=== PATIENT | male | born 1945 | race Asian ===

== ENCOUNTER 2019-06-18 08:30 | Inpatient (IN) | payer MEDICAID ==
[~2019-06-18] VITALS: Ht 172.7 cm; Wt 75.9 kg
--- NOTE | 2019-06-18 08:40 | NUR ---
ED Nurse Note: Pt brought in by ambulance d/t call from pt's neighbor that he was found on the shower floor. Pt was altered, different from his baseline per neighbor's report. Pt is usually A+Ox4 and ambulatory. Pt is now nonverbal, does not open his eyes spontaneously. Pupils are sluggish with involuntary eye movements. Laceration to his left hand between his index and middle fingers. Right hand and left hand contusions. Pt is put on the monitor and in gown. Blood pressure is elevated 230/120. EDMD aware. BS 154. Stat Head Ct ordered and CT called. Addendum: 06/18/19 at 0931 by JESSICA RIGHT HAND and LEFT KNEE contusions* Pt is from home
[2019-06-18] MEDS ORDERED: Calcium Gluconate 1gm/10ml vial IVP ONE (08:45)
[2019-06-18 09:00] LABS: BASOPHILS % (AUTO) 0.6 % (0.0-2.0); EOSINOPHILS % (AUTO) 0.1 % (0.0-3.0); HEMATOCRIT 49.9 % (42.0-52.0); HEMOGLOBIN 17.7 G/DL (14.2-18.0); LYMPHOCYTES % (AUTO) 14.1 % (20.0-45.0); MEAN CORPUSCULAR VOLUME 90 FL (80-99); MONOCYTES % (AUTO) 6.1 % (1.0-10.0); NEUTROPHILS % (AUTO) 79.2 % (45.0-75.0); PLATELET COUNT 221 K/UL (150-450); RED BLOOD COUNT 5.56 M/UL (4.70-6.10); WHITE BLOOD COUNT 15.9 K/UL (4.8-10.8)
[2019-06-18] MEDS ORDERED: Insulin Human Regular 100units/ml 3ml IV ONE (09:00)
[2019-06-18 09:14] LABS: APPEARANCE,URINE CLEAR; BILIRUBIN, URINE NEGATIVE (NEGATIVE); COLOR,URINE PALE YELLOW; GLUCOSE, URINE (UA) NEGATIVE (NEGATIVE); KETONES,URINE NEGATIVE (NEGATIVE); LEUKOCYTE ESTERASE ,URINE NEGATIVE (NEGATIVE); NITRITE,URINE NEGATIVE (NEGATIVE); PH,URINE 7 (4.5-8.0); PROTEIN,URINE 4+ (NEGATIVE); UROBILINOGEN,URINE NORMAL MG/DL (0.0-1.0)
[2019-06-18] MEDS ORDERED: Sodium Bicarbonate 50ml Carp IV ONE (09:15)
--- NOTE | 2019-06-18 09:20 | Diagnostic Imaging Report ---
EXAM: CT Head Without Intravenous Contrast CLINICAL HISTORY: AMS TECHNIQUE: Axial computed tomography images of the head/brain without intravenous contrast. CTDI is 62.70 mGy and DLP is 1614.50 mGy-cm. One or more of the following dose reduction techniques were used: automated exposure control, adjustment of the mA and/or kV according to patient size, use of iterative reconstruction technique. Coronal reformatted images were created and reviewed. COMPARISON: No relevant prior studies available. FINDINGS: Brain: No acute intracranial hemorrhage. No mass effect or midline shift. 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 Periventricular and subcortical white matter hypodensities, likely related to chronic small vessel disease changes. Mild generalized cerebral parenchymal volume loss, likely age-related. Ventricles: Unremarkable. No ventriculomegaly. Bones/joints: Dehiscence of the left lamina papyracea. Chronic- appearing nasal bone fractures. Soft tissues: Unremarkable. Sinuses: Mucosal thickening throughout the left maxillary sinus. Remaining visualized paranasal sinuses appear clear. No sinus air-fluid levels. Mastoid air cells: Unremarkable as visualized. No mastoid effusion. IMPRESSION: 1. No acute intracranial hemorrhage. No mass effect or midline shift. 2. 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 3. Periventricular and subcortical white matter hypodensities, likely related to chronic small vessel disease changes. 4. Mild generalized cerebral parenchymal volume loss, likely age-related.
[2019-06-18 09:26] VITALS: BP 206/67
--- NOTE | 2019-06-18 09:36 | NUR ---
ED Nurse Note: Right knee contusion noted. Pt opening eyes now intermittently, but still not verbal.
--- NOTE | 2019-06-18 09:45 | Diagnostic Imaging Report ---
EXAM: XR Chest, 1 View CLINICAL HISTORY: AMS TECHNIQUE: Frontal view of the chest. COMPARISON: No relevant prior studies available. FINDINGS: Lungs: Mildly increased interstitial markings, most prominent in the right infrahilar region. The lungs are otherwise clear without focal consolidation. Pleural space: Unremarkable. The costophrenic angles are sharp. No visible pneumothorax. Heart: Unremarkable. No cardiomegaly. Mediastinum: Unremarkable. Bones/joints: Mild degenerative changes throughout the visualized spine. Vasculature: Atherosclerotic calcifications are noted within the aortic arch. Tubes, lines and devices: Telemetry leads overlie the thorax. IMPRESSION: Mildly increased interstitial markings, most prominent in the right infrahilar region. This is nonspecific and may represent pulmonary vascular congestion or interstitial pneumonitis. No focal consolidation.
[2019-06-18 09:46] LABS: ANION GAP 15 mmol/L (5-15); BLOOD UREA NITROGEN 16 mg/dL (7-18); CALCIUM 8.3 MG/DL (8.5-10.1); CARBON DIOXIDE 24 MMOL/L (21-32); CHLORIDE 108 MMOL/L (98-107); CREATININE 1.2 MG/DL (0.55-1.30); POTASSIUM 3.3 MMOL/L (3.5-5.1); SODIUM 147 MMOL/L (136-145)
--- NOTE | 2019-06-18 09:47 | NUR ---
ED Nurse Note: BP taken in both arms. BP is in the 250s systolic and 80s diastolic in both arms. EDMD aware.
[2019-06-18 09:50] LABS: ALANINE AMINOTRANSFERASE 29 U/L (12-78); ALBUMIN 3.5 G/DL (3.4-5.0); ALBUMIN/GLOBULIN RATIO 0.8 (1.0-2.7); ALKALINE PHOSPHATASE 103 U/L (46-116); ASPARTATE AMINO TRANSFERASE 31 U/L (15-37); BILIRUBIN,TOTAL 0.5 MG/DL (0.2-1.0)
[2019-06-18] MEDS ORDERED: Azithromycin 500 MG in NS 275 ML IV ONE (10:45)
[2019-06-18] MEDS ORDERED: cefTRIAXone 1 GM in NS 55 ML IVPB ONE (10:45)
[2019-06-18] MEDS ORDERED: Haloperidol 5mg/ml Inj IM ONE (11:00)
[2019-06-18] MEDS ORDERED: Tetanus/Diptheria/Pertussis IM ONE (11:00)
--- NOTE | 2019-06-18 11:23 | Diagnostic Imaging Report ---
EXAM: XR Right Hand Complete, 3 or More Views CLINICAL HISTORY: SWELL TECHNIQUE: Frontal, lateral and oblique views of the right hand. COMPARISON: No relevant prior studies available. FINDINGS: Bones/joints: Osseous remodeling along the distal ulna and distal radial-ulnar joint, which may be related to degenerative changes or to chronic/remote trauma. Moderate degenerative narrowing throughout the interphalangeal and radiocarpal joints. No acute fracture or dislocation seen. Soft tissues: Unremarkable. No radiopaque foreign body. IMPRESSION: 1. Osseous remodeling along the distal ulna and distal radial-ulnar joint, which may be related to degenerative changes or to chronic/remote trauma. 2. Moderate degenerative narrowing throughout the interphalangeal and radiocarpal joints.
[2019-06-18] MEDS ORDERED: LORazepam Inj 2mg/ml 1ml IV ONE (11:45)
--- NOTE | 2019-06-18 11:53 | NUR ---
ED Nurse Note: Pt is restless and pulling out devices. He is tachypnic and tachycardic at 118. EDMD ordered haldol IM and it was given, but patient continues to be restless and agitated. Pt thrashing in bed and cannot be calmed down. Made the EDMD aware and 1 mg ativan IV was ordered and administered. Addendum: 06/18/19 at 1201 by BDUTTON Pt also having bigeminal PVCs and EDMD aware.
[2019-06-18] MEDS ORDERED: Enalaprilat 2.5mg/2ml Inj IV ONE (12:15)
[2019-06-18] MEDS ORDERED: Milk of Magnesia 30ml Ud ORAL PRN (12:30)
--- NOTE | 2019-06-18 12:52 | NUR ---
ED Nurse Note: report given to Beatrice BADILLO, endorsed all plan of care to Beatrice BADILLO.
[2019-06-18 13:00] VITALS: BP 219/100
--- NOTE | 2019-06-18 13:13 | Emergency Room Report ---
History of Present Illness General Chief Complaint: Altered Level of Consciousness Source: EMS Present Illness HPI 73-year-old male presents ED for evaluation. Brought in by EMS for altered level of consciousness. Found by his neighbors this morning. Patient lives alone. Patient hypertensive in triage. Patient unable to provide any history at this time. No known history of hypertension. Unclear whether patient ingested alcohol or drugs. No other aggravating relieving factors. No other associated symptoms Allergies: Coded Allergies: UNABLE TO ASSESS (Unverified , 06/18/19) Patient History Past Medical History: none Past Surgical History: none Pertinent Family History: none Social History: Denies: smoking, alcohol use, drug use Immunizations: UTD Reviewed Nursing Documentation: PMH: Agreed; PSxH: Agreed Nursing Documentation-PMH Past Medical History: Deferred Review of Systems All Other Systems: limited Physical Exam Vital Signs Date Time Temp Pulse Resp B/P (MAP) Pulse Ox O2 Delivery O2 Flow Rate FiO2 06/18/19 08:32 98.8 110 18 220/97 (138) 100 Room Air Sp02 EP Interpretation: reviewed, normal General Appearance: lethargic Head: normocephalic Eyes: bilateral eye normal inspection, bilateral eye PERRL ENT: normal ENT inspection Neck: normal inspection Respiratory: chest non-tender, lungs clear, normal breath sounds, speaking full sentences Cardiovascular #1: regular rate, rhythm, no edema Gastrointestinal: normal bowel sounds, non tender, soft, non-distended, no guarding, no rebound Rectal: deferred Genitourinary: no CVA tenderness Musculoskeletal: normal inspection Neurologic: other - ALOC Psychiatric: other - ALOC Skin: laceration - 2cm laceration between 2nd and 3rd finger L hand, other - see nursing skin notes Lymphatic: normal inspection Procedures Critical Care Time Critical Care Time i. I feel this is a highly complex case requiring extensive working including EKG/Rhythm strip, Xray/CT/US, Blood/urine lab work, repeat exams while in ED, and administration of strong opiates/narcotics for pain control, admission to hospital or close patient follow up. Total time: 60 min bedside evaluation and treatment excludes procedures (EKG). Reason for critical care: AMS, severe sepsis, hypertensive Possible complications: hypotension, hypertension, AR, shock, arrhythmias, metabolic acidosis, end organ damage, respiratory failure. Interventions: labs, EKG, CXR, IVFs, CT head, laceration repair, hydralazine x 2 , enapapril, haldol/ativan. Course: Patient presenting with altered mental status. Found down. Hypertensive in triage. CT head negative. Elevated WBC. Lactic elevated. Swelling to right hand. X-rays negative. Concern for cellulitis. Concern for pneumonitis on chest x-ray. Laceration between second and third finger on left hand repaired with suture. Given 30 cc/kg fluid bolus. Given broad-spectrum antibiotics. Given hydralazine x2, enalapril with BP improved. Consultations: nursing staff, EMS, family Performed by: Dr Mackey Tolerated well condition = critical j. because of unstable vital signs this patient had a condition that could potentially threaten life or limb. I feel this is a critical patient who required my full attention while patient was considered critical. Total Critical Care Time excluding procedures was greater than 60 minutes Laceration/Wound Repair Laceration/Wound Repair : Consent: Verbal Wound Location: upper extremity - L hand Wound's Depth, Shape: other - 2cm Wound Explored: no foreign body removed Betadine Prep?: Yes Anesthesia: Lidocaine w/ Epi Wound Debrided: minimal Wound Repaired With: sutures Suture Size/Type: 5:0, proline Layer Closure?: No Sterile Dressing Applied?: Yes Splint Applied?: No Sling Applied?: No Patient Tolerated: Well Complications: None Medical Decision Making Diagnostic Impression: Primary Impression: Altered level of consciousness Additional Impressions: Sepsis Qualified Codes: A41.9 - Sepsis, unspecified organism Cellulitis of right hand Laceration Hypertensive urgency ER Course Hospital Course 73-year-old male presents with altered level of consciousness. Found down. Hypertensive Differential diagnoses include: AR/unstable angina, CVA/TIA, hypertensive urgency Clinical course Patient placed on stretcher. on rn cardiac rehab. After initial history and physical I ordered labs, EKG, chest x-ray, CT Head labs reviewed- noted leukocytosis, hemoglobin/hematocrit stable, electrolytes okay, troponins negative. Utox negative. EKG - sinus rhythm with bigeminy no acute ischemic changes interpreted by me CXR - interstitial congestion consider pneumonitis Right hand swelling and induration. X-ray negative. Concern for cellulitis There is a laceration between the second and third fingers on the left hand. Tetanus updated. Wound irrigated. Laceration repaired. Becoming more awake but still nonverbal and not following commands. Given Haldol and Ativan for agitation. 30 cc/kg fluid bolus. Given broad-spectrum antibiotics Given hydralazine x2, enalapril with BP slowly improving CT head negative Case discussed with Dr. Gilmore and he agreed to accept the patient to his service for further care and support I. I feel this is a highly complex case requiring extensive working including EKG/Rhythm strip, Xray/CT/US, Blood/urine lab work, repeat exams while in ED, and administration of strong opiates/narcotics for pain control, admission to hospital or close patient follow up. Diagnosis - hypertensive urgency, ALOC, sepsis, celluitis of R hand, laceration admitted to SDU in critical condition Labs Test 06/18/19 08:40 06/18/19 09:05 06/18/19 09:47 06/18/19 10:00 White Blood Count 15.9 K/UL (4.8-10.8) Red Blood Count 5.56 M/UL (4.70-6.10) Hemoglobin 17.7 G/DL (14.2-18.0) Hematocrit 49.9 % (42.0-52.0) Mean Corpuscular Volume 90 FL (80-99) Mean Corpuscular Hemoglobin 31.9 PG (27.0-31.0) Mean Corpuscular Hemoglobin Concent 35.5 G/DL (32.0-36.0) Red Cell Distribution Width 11.0 % (11.6-14.8) Platelet Count 221 K/UL (150-450) Mean Platelet Volume 7.1 FL (6.5-10.1) Neutrophils (%) (Auto) 79.2 % (45.0-75.0) Lymphocytes (%) (Auto) 14.1 % (20.0-45.0) Monocytes (%) (Auto) 6.1 % (1.0-10.0) Eosinophils (%) (Auto) 0.1 % (0.0-3.0) Basophils (%) (Auto) 0.6 % (0.0-2.0) Prothrombin Time 10.2 SEC (9.30-11.50) Prothromb Time International Ratio 1.0 (0.9-1.1) Activated Partial Thromboplast Time 25 SEC (23-33) Sodium Level 147 MMOL/L (136-145) Potassium Level 3.3 MMOL/L (3.5-5.1) Chloride Level 108 MMOL/L (98-107) Carbon Dioxide Level 24 MMOL/L (21-32) Anion Gap 15 mmol/L (5-15) Blood Urea Nitrogen 16 mg/dL (7-18) Creatinine 1.2 MG/DL (0.55-1.30) Estimat Glomerular Filtration Rate mL/min (>60) Glucose Level 165 MG/DL (74-106) Calcium Level 8.3 MG/DL (8.5-10.1) Total Bilirubin 0.5 MG/DL (0.2-1.0) Aspartate Amino Transf (AST/SGOT) 31 U/L (15-37) Alanine Aminotransferase (ALT/SGPT) 29 U/L (12-78) Alkaline Phosphatase 103 U/L (46-116) Troponin I 0.053 ng/mL (0.000-0.056) Total Protein 7.7 G/DL (6.4-8.2) Albumin 3.5 G/DL (3.4-5.0) Globulin 4.2 g/dL Albumin/Globulin Ratio 0.8 (1.0-2.7) Salicylates Level 2.0 ug/mL (2.8-20) Acetaminophen Level < 2 MCG/ML (10-30) Serum Alcohol < 3 mg/dL Urine Color Pale yellow Urine Appearance Clear Urine pH 7 (4.5-8.0) Urine Specific [place] 1.010 (1.005-1.035) Urine Protein 4+ (NEGATIVE) Urine Glucose (UA) Negative (NEGATIVE) Urine Ketones Negative (NEGATIVE) Urine Blood 5+ (NEGATIVE) Urine Nitrite Negative (NEGATIVE) Urine Bilirubin Negative (NEGATIVE) Urine Urobilinogen Normal MG/DL (0.0-1.0) Urine Leukocyte Esterase Negative (NEGATIVE) Urine RBC 30-40 /HPF (0 - 0) Urine WBC 0-2 /HPF (0 - 0) Urine Squamous Epithelial Cells Occasional /LPF Urine Bacteria Occasional /HPF (NONE) Urine Opiates Screen Negative (NEGATIVE) Urine Barbiturates Screen Negative (NEGATIVE) Phencyclidine (PCP) Screen Negative (NEGATIVE) Urine Amphetamines Screen Negative (NEGATIVE) Urine Benzodiazepines Screen Negative (NEGATIVE) Urine Cocaine Screen Negative (NEGATIVE) Urine Marijuana (THC) Screen Negative (NEGATIVE) Magnesium Level 1.9 MG/DL (1.8-2.4) Lactic Acid Level 4.80 mmol/L (0.4-2.0) Test 06/18/19 12:12 EKG Diagnostic Results Rate: normal Rhythm: NSR ST Segments: other - bigeminy ASA given to the pt in ED: No Rhythm Strip Diag. Results EP Interpretation: yes Rhythm: NSR, no ectopy Chest X-Ray Diagnostic Results Chest X-Ray Diagnostic Results : Chest X-Ray Ordered: Yes # of Views/Limited/Complete: 1 View Indication: Other EP Interpretation: Yes Interpretation: no pneumothorax, other - interstitial markings c/o pneumonitis Impression: Other - pneumonitis Electronically Signed by: Electronically signed by Farzad Mackey MD Other X-Ray Diagnostic Results Other X-Ray Diagnostic Results : X-Ray ordered: R hand # of Views/Limited Vs Complete: 3 View Indication: Pain EP Interpretation: Yes Interpretation: no dislocation, no soft tissue swelling, no fractures Impression: No acute disease Electronically Signed by: Electronically signed by Farzad Mackey MD CT/MRI/US Diagnostic Results CT/MRI/US Diagnostic Results : Imaging Test Ordered: CT Head Impression no acute process Last Vital Signs Date Time Temp Pulse Resp B/P (MAP) Pulse Ox O2 Delivery O2 Flow Rate FiO2 06/18/19 12:15 219/100 06/18/19 09:27 98 18 Room Air 06/18/19 09:26 98.8 96 Status: improved Disposition: ADMITTED INPATIENT Condition: Critical Scripts Unable to Obtain Active Prescriptions or Reported Meds Referrals: NOT CHOSEN IPA/,REFERRING (PCP) Farzad Mackey MD Jun 18, 2019 13:13
[2019-06-18 13:15] VITALS: BP 138/74
--- NOTE | 2019-06-18 13:15 | NUR ---
ED Nurse Note: patient transferred to 2W with all of his belongings, endorsed to Beatrice BADILLO.
--- NOTE | 2019-06-18 13:20 | NUR ---
NURSE NOTES: Received patient from ED via gurney. Patient lethargic, nonverbal at this time. On room air, no respiratory distress noted. Placed on tax consultant, HR 72 sinus rhythm, BP 138/74, Temp. 97.7 axillary, RR 18 even and unlabored. O2 saturation 98%. Right hand noted with swelling and redness, repaired laceration on left hand between 2nd and 3rd digit noted. Abrasion on the chest noted, redness on right knee, otherwise skin intact. Right forearm 20g intact and patent. Admission orders noted from Dr Maame Gilmore. Safety precautions in place, bed locked, alarmed, and in lowest position, side rails up x3, and call light left within reach. Patient was placed in room close to nurse's station. Will continue plan of care and will continue to monitor patient.
--- NOTE | 2019-06-18 13:54 | NUR ---
RADIOLOGY DEPT., CHEST AND RIGHT HAND X-RAYS COMPLETED.-P.DYE
[2019-06-18] MEDS ORDERED: Vancomycin 1.5gm/NS Premix IVPB ONE (14:00)
[2019-06-18] MEDS ORDERED: Piperacillin/Tazobactam 2.25 GM in D5W 55 ML IVPB SCH (14:00)
[2019-06-18] MEDS: Zoysn 3.37gm in NS 100ML IVPB SCH ×2 (15:11→21:04)
[2019-06-18] MEDS: D5 1/2NS w/KCl 20mEq 1,000 ML IV SCH (15:11)
[2019-06-18] MEDS: Vancomycin 750mg/NS 275ml IVPB SCH ×2 (15:37)
[2019-06-18 16:00] VITALS: BP 130/65
--- NOTE | 2019-06-18 17:00 | NUR ---
NURSE NOTES: Linen and gown changed, repositioned, perineum care provided. Applied condom catheter. Safety precautions in place, bed locked, alarmed, and in lowest position, side rails up x3, and call light left within reach. Will continue to monitor.
--- NOTE | 2019-06-18 19:06 | NUR ---
HAND-OFF: Report given to JUSTINO Quintero. Patient in stable condition.
--- NOTE | 2019-06-18 19:29 | NUR ---
NURSE NOTES: Received report from Beatrice RN, pt. in bed asleep- no cardiac or respiratory distress noted, pt. is on cardiac monitor technician, chest noted rising up and down, respirations even and unlabored, condom cath intact and draining to gravity, call light within easy reach, side rails up x's3 and safety brakes engaged, bed alarm on, pt. appears to be resting comfortably- and appears clean and dry, repositioned and turned pt., Lt. AC running D5 1/2 NS w/ 20meq KCL at 75cc/hr- IV intact and patent, safety measures continued, will continue with plan of care.
[2019-06-18 20:00] VITALS: BP 144/64
[2019-06-19] VITALS: BP 139/71
[2019-06-19] MEDS: D5 1/2NS w/KCl 20mEq 1,000 ML IV SCH ×2 (02:20→15:29)
[2019-06-19 03:35] VITALS: BP 153/82
[2019-06-19] MEDS: Zoysn 3.37gm in NS 100ML IVPB SCH ×3 (05:16→21:09)
[2019-06-19 05:40] LABS: BASOPHILS % (AUTO) 0.7 % (0.0-2.0); EOSINOPHILS % (AUTO) 0.1 % (0.0-3.0); HEMATOCRIT 46.2 % (42.0-52.0); HEMOGLOBIN 16.7 G/DL (14.2-18.0); LYMPHOCYTES % (AUTO) 18.2 % (20.0-45.0); MEAN CORPUSCULAR VOLUME 90 FL (80-99); MONOCYTES % (AUTO) 5.3 % (1.0-10.0); NEUTROPHILS % (AUTO) 75.8 % (45.0-75.0); PLATELET COUNT 189 K/UL (150-450); RED BLOOD COUNT 5.11 M/UL (4.70-6.10); RED CELL DISTRIBUTION WIDTH 11.1 % (11.6-14.8); WHITE BLOOD COUNT 12.9 K/UL (4.8-10.8)
[2019-06-19 06:04] LABS: ANION GAP 10 mmol/L (5-15); BLOOD UREA NITROGEN 13 mg/dL (7-18); CALCIUM 7.7 MG/DL (8.5-10.1); CARBON DIOXIDE 26 MMOL/L (21-32); CHLORIDE 112 MMOL/L (98-107); CREATININE 1.1 MG/DL (0.55-1.30); SODIUM 148 MMOL/L (136-145)
--- NOTE | 2019-06-19 06:55 | NUR ---
HAND-OFF: Report given to JUSTINO Haney- pt. remains stable and no signs of distress noted- nurse aware to f/u on abnormal am labs.
--- NOTE | 2019-06-19 07:33 | NUR ---
NURSE NOTES: received patient report from rodriguez pelletier. patient is on bed asleep. not in acute distress. comfortable. sr on the monitor. will continue plan of care.
[2019-06-19 08:00] VITALS: BP 128/66
--- NOTE | 2019-06-19 10:01 | NUR ---
NURSE NOTES: left a message to dr centeno regarding patient K level of 3.0 today. awaits callback and new order.
[2019-06-19] MEDS ORDERED: Gadavist 7.5mMol/7.5ml vial IV PRN (11:45)
[2019-06-19 12:00] VITALS: BP 160/65
--- NOTE | 2019-06-19 13:27 | Diagnostic Imaging Report ---
Indication: Post gastric tube placement Technique: Supine view of the abdomen Comparison: none Findings: . There is a nasogastric tube in place, tip projected at the gastric fundus, proximal port just beyond the gastroesophageal junction. The bowel gas pattern is unremarkable. No masses or unusual calcifications are demonstrated Impression: Satisfactory nasogastric tube placement This agrees with the preliminary interpretation provided overnight by [facility]eradiology service.
[2019-06-19] MEDS: Vancomycin 750mg/NS 275ml IVPB SCH ×2 (14:04)
[2019-06-19] MEDS ORDERED: Tubing IV Secondary IV ONE (15:29)
[2019-06-19] MEDS ORDERED: NS 275ml ONE (15:29)
[2019-06-19 16:00] VITALS: BP 115/79
[2019-06-19] MEDS: NovoLOG Insulin Flexpen SUBQ SCH ×2 (16:30→20:56)
--- NOTE | 2019-06-19 19:17 | NUR ---
NURSE NOTES: Received report from JUSITNO Haney, pt. in bed awake w/ eyes open- non-verbal, no cardiac or respiratory distress noted, pt. is on telemetry monitor, chest noted rising up and down, respirations even and unlabored, condom cath intact and draining to gravity, call light within easy reach, side rails up x's3 and safety brakes engaged, bed alarm on, pt. appears to be resting comfortably- and appears clean and dry, pt. has left wrist restraint- removed skin intact and pulses palpable, repositioned and turned pt., Lt. AC running D5 1/2 NS w/ 20meq KCL at 75cc/hr- IV intact and patent, left hand 22G IV intact and patent, safety measures continued, will continue with plan of care. Addendum: 06/19/19 at 1925 by RIA GILMORE RN RN pt. has Right NGT- intact.
--- NOTE | 2019-06-19 19:21 | NUR ---
HAND-OFF: Report given to rodriguez pelletier.
[2019-06-19 19:49] VITALS: BP 142/90
[2019-06-20] VITALS: BP 138/75
[2019-06-20 01:03] LABS: BASOPHILS % (AUTO) 0.7 % (0.0-2.0); EOSINOPHILS % (AUTO) 0.4 % (0.0-3.0); HEMATOCRIT 48.5 % (42.0-52.0); HEMOGLOBIN 17.2 G/DL (14.2-18.0); LYMPHOCYTES % (AUTO) 21.3 % (20.0-45.0); MEAN CORPUSCULAR VOLUME 89 FL (80-99); MONOCYTES % (AUTO) 6.7 % (1.0-10.0); NEUTROPHILS % (AUTO) 70.9 % (45.0-75.0); PLATELET COUNT 200 K/UL (150-450); RED BLOOD COUNT 5.44 M/UL (4.70-6.10); RED CELL DISTRIBUTION WIDTH 10.9 % (11.6-14.8); WHITE BLOOD COUNT 15.6 K/UL (4.8-10.8)
[2019-06-20 01:13] LABS: ANION GAP 10 mmol/L (5-15); BLOOD UREA NITROGEN 11 mg/dL (7-18); CALCIUM 7.9 MG/DL (8.5-10.1); CARBON DIOXIDE 24 MMOL/L (21-32); CHLORIDE 111 MMOL/L (98-107); POTASSIUM 3.5 MMOL/L (3.5-5.1); SODIUM 144 MMOL/L (136-145)
[2019-06-20] MEDS: Vancomycin 1gm in Dextrose 275ml IVPB SCH ×2 (02:10→12:54)
[2019-06-20 04:00] VITALS: BP 127/63
[2019-06-20] MEDS: D5 1/2NS w/KCl 20mEq 1,000 ML IV SCH ×2 (05:07→17:59)
[2019-06-20] MEDS: Zoysn 3.37gm in NS 100ML IVPB SCH ×3 (05:08→21:17)
[2019-06-20] MEDS: NovoLOG Insulin Flexpen SUBQ SCH ×4 (05:30→20:44)
--- NOTE | 2019-06-20 07:00 | NUR ---
NURSE NOTES: received patient report from sonali pelletier. patient is on bed asleep. not in acute distress. no arrythmias reported during the night. NPO. for swallow eval and brain MRI today. will follow plan of care.
--- NOTE | 2019-06-20 07:14 | NUR ---
HAND-OFF: Report given to JUSTINO Haney- pt. remains stable and no signs of distress noted.
[2019-06-20 08:00] VITALS: BP 152/98
[2019-06-20] MEDS ORDERED: LORazepam Inj 2mg/ml 1ml IV SCH (09:50)
--- NOTE | 2019-06-20 11:30 | NUR ---
RD ASSESSMENT & RECOMMENDATIONS SEE CARE ACTIVITY FOR COMPLETE ASSESSMENT DAILY ESTIMATED NEEDS: Needs based on sepsis 72kg adj 25-30 kcals/kg 3630-1839 total kcals 1-2 g protein/kg 72-144 g total protein 25-30 mL/kg 1510-7679 total fluid mLs NUTRITION DIAGNOSIS: Altered nutrition related lab values r/t sepsis and clinical status as evidenced by elev WBC (15.6), elev BG 162-179, w/ A1C 6.9. CURRENT DIET: NPO PO DIET RECOMMENDATIONS: If appropriate-> LOW NA/ CCHO MED (texture per APPRAISER ART) ENTERAL NUTRITION RECOMMENDATIONS: Glucerna 1.5 @50ml/hr x24 hrs to provide 1200ml, 1800 kcal, 99g pro, 911ml free H2O - If not appropriate for oral diet d/t AMS, rec non oral feeds-> pt currently w/ NGT. - Start Glucerna 1.5 @20ml/hr for 6 hrs. Advance as tolerated 10ml/hr q4-6 hrs to goal - Flush per MD, HOB over 30 degrees ----- ADDITIONAL RECOMMENDATIONS: 1) Maintain calibrated bed scale wts 2) TF recs as above if not appropriate for oral diet F/up w/ APPRAISER ART eval 3) F/up w/ H&P
--- NOTE | 2019-06-20 11:37 | NUR ---
MRI BRAIN W/O COMPLETED. CHARLES Addendum: 06/20/19 at 1137 by ANISA TRIMBLE PT UNABLE TO SIGN CONSENT FOR CONTRAST. RN STATES NO FAMILY. CHARLES
[2019-06-20 12:00] VITALS: BP 164/68
--- NOTE | 2019-06-20 13:54 | NUR ---
ST NOTES: REFERRED FOR SWALLOW EVAL BY DR LY, SEE FULL REPORT TO FOLLOW. DYSPHAGIA RISK FACTORS FOR THIS 73 Y.O.M.: ACUTE ISSUES: DOA 2 DAYS AGO WHEN HE WAS FOUND DOWN AT HOME BY NEIGHBORS AMS, SEPSIS, HYPERTENSIVE URGENCY, LUNGS HAVE PULMONARY VASCULAR CONGESTION OR INTERSTITIAL PNEUMONITIS, NOT STABLE DUE TO HIGH BP AND ON KATERYNA. CT HEAD NEG FOR ACUTE HAS OLD CHRONIC INFARCT AND ENCEPHALOMALACIA ANTERIOR RIGHT TEMPORAL LOBE. PER RN, MRI JUST COMPLETED TODAY AND PATIENT HAD A MASSIVE CVA ON THE LEFT (WILL ADD INFORMATION WHEN REPORT COMPLETED) NO POLST/AD IN CHART REGARDING ARTIFICIAL NUTRITION PREFERENCES. PER RD OVERWEIGHT AND NEEDS LOW NA AND CCHO-MED IF CLEARED FOR PO. CURRENTLY NPO AND HAS NGT FEEDINGS WITH GLUCERNA. PER RN, PATIENT IS INCONSISTENTLY ALERT. WHEN ALERT, HE WILL NOT VISUALLY TRACK. PATIENT SEEN AT BEDSIDE. NOT CONSISTENTLY ALERT FOR PO TRIALS NOR MOD BARIUM SWALLOW STUDY INITIAL IMPRESSIONS: HIGH RISK FOR DYSPHAGIA AND SILENT ASPIRATION (NEW AND OLD CVAS) HIGH RISK FOR NO TO POOR INTAKE DUE TO VARIABLE ALERTNESS DID NOT OPEN EYES NOR FOLLOW COMMANDS HAD DENTITION BUT MISSING MOLARS RECOMMENDATIONS: CONSIDER CONTINUING WITH NGT FEEDINGS AND ORAL CARE COMPLETE MOD BARIUM SWALLOW STUDY WHEN CONSISTENTLY ALERT AND STABLE (HIGH BP PER RN ON KATERYNA) TO FURTHER ASSESS SWALLOW, DETERMINE SILENT ASP RISK AND ATTEMPT TRIAL TX TECHNIQUES SKILLED DYSPHAGIA MANAGEMENT AND TX AND COG-COM EVAL/TX EDUCATED/TRAINED RN (SABINE) IN POSTED ORAL CARE AND ASPIRATION PRECAUTIONS WITH NGT FEEDINGS RUNNING. Addendum: 06/20/19 at 1356 by AYANNA TEJEDA CONTAINER SHOP WELDER PER RN, HAD ATIVAN AT 10:20 FOR MRI
--- NOTE | 2019-06-20 14:28 | Diagnostic Imaging Report ---
Indication: Right-sided weakness, inability to communicate Technique: sagittal T1 fast spin echo, axial T1 FLAIR, axial T2 FLAIR, axial T2 FS PROPELLER, axial T2* GRE, axial diffusion weighted images. ADC and exponential ADC maps generated Comparison: Brain CT dated 06/18/2019 Findings: Large area of restricted diffusion involves nearly entire left temporal lobe, a large portion of the parietal lobe, and extends slightly into the occipital and frontal lobes. This results in cytotoxic edema manifested on the T2-weighted images. There is resultant mass effect, slight shift of the midline structures to the right of about 4 mm attenuation of its lateral sulci and ipsilateral lateral ventricle. No associated acute hemorrhage. Old lacunar infarcts are seen in the basal ganglia and deep white matter bilaterally. There is mild age-related enlargement of the ventricles and extra axial CSF spaces. There is periventricular deep white matter high T2 signal, consistent with chronic microvascular ischemic change. There is absence of flow void within the left internal carotid artery and middle cerebral artery. The visualized orbits are unremarkable. There is left maxillary and bilateral ethmoid sinus disease. 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 This results in mass effect and midline shift as described No acute hemorrhage Chronic and age-related changes, as described Sinus disease Incidental finding of right middle fossa arachnoid cyst Stat findings phoned previously to Dr. Gilmore at approximately 12:20 PM on 06/20/2019
--- NOTE | 2019-06-20 14:45 | NUR ---
CASE MANAGEMENT:INITIAL REVIEW 73 YR OLD MALE AYDEE FROM HOME CC;ALTERED LEVEL OF CONSCIOUSNESS SI;ALOC, HYPERTENSIVE URGENCY, RIGHT HAND CELLULITIS, SEPSIS 98.8 110 18 219/100 96% RA WBC=15.9 NI=928 K+=3.3 CA=8.3 CXR=interstitial congestion consider pneumonitis IS;CA GLUCONATE IV D5OW IV IVF BOLUS NA BI-CARB IV HYDRALAZINE IV INSULIN REGULAR IV NG TUBE PLACEMENT ADMITTED TO [facility] Addendum: 06/20/19 at 1520 by BIANKA ARRIAZAN [employer] CASE MANAGEMENT:REVIEW 06/20/2019 SI;ALOC, RIGHT HAND CELLULITIS, SEPSIS 98.7 54 26 164/68 96% RA WBC=12.9 WJ=779 K+=3.0 IS;IV VANCO Q8HRS IV ZOSYN Q8HRS IVF NS BOLUS K CHLORIDE IV CLONIDINE PO Q4HRS PRN HYDRALAZINE IV Q4HRS PRN [facility] STATUS
[2019-06-20 16:00] VITALS: BP_SYST 164; BP_SYST 167; BP_DIAS 104; BP_DIAS 119
--- NOTE | 2019-06-20 17:15 | History and Physical Report ---
DATE OF ADMISSION: 06/18/2019 CHIEF COMPLAINT: The patient was found down by paramedics. HISTORY OF PRESENT ILLNESS: The patient is a 73-year-old male, who was brought in by paramedics for altered level of consciousness. The patient was found by his neighbors on the morning of transfer. The patient apparently was living alone. He has history of hypertension. He could not provide any history in the ER. ALLERGIES: Unable to assess. SOCIAL HISTORY: No previous history of smoking, alcohol abuse, or drug use. REVIEW OF SYSTEMS: Unobtainable. PHYSICAL EXAMINATION: GENERAL: The patient is a 73-year-old male. He is nonverbal. Eyes open, does not follow commands. VITAL SIGNS: Blood pressure in the emergency room was 220/97, pulse of 110, respirations 18, and temperature 98.8. Currently, blood pressure is 128/66 with pulse of 97. HEENT: [place] conjunctivae. Anicteric sclerae. NECK: Supple. LUNGS: Clear to auscultation. HEART: S1 and S2 without murmurs or rubs. ABDOMEN: Soft, nontender. EXTREMITIES: Bilateral pitting edema. Right hand is red consistent with some cellulitis. NEUROLOGIC: The patient has flaccid right arm. He moves the left arm spontaneously. LABORATORY FINDINGS: CBC shows a WBC of 12,900, hematocrit 46.2, hemoglobin 16.7, and platelets 189,000. Chemistry panel shows sodium 148, potassium 3, chloride 112, BUN 13, and creatinine 1.1. Glucose is 179. Hemoglobin A1c is 6.9. Calcium is 7.7. TSH is 1.64. CAT scan of the brain shows no acute intracranial hemorrhage. No mass effect or midline shift. There is chronic infarct and encephalomalacia in the anterior right temporal lobe. There is periventricular and subcortical white matter hypodensities likely related to chronic small vessel disease changes. Chest x-ray shows mild interstitial markings, most prominent in the right infrahilar region. This is nonspecific and may represent pulmonary vascular congestion or interstitial pneumonitis. ASSESSMENT: This is a 73-year-old male who was found down in his residence. He is nonverbal, does not follow commands. His right side is flaccid. It is consistent with an acute CVA, although CAT scan is too early to show. The patient has also leukocytosis, may have aspiration pneumonia, or it could be caused by his right hand cellulitis. He has hypokalemia probably from being down and not eating. Hypomagnesemia needs to be ruled out. PLAN: The patient will be on aspirin. NG tube will be placed to give the patient medication as well as tube feedings. MRI of the brain will be ordered to confirm the recent CVA. Potassium will be repleted. Labs will be followed and further adjustment will be made in the patient's regimen. Also swallow evaluation will be ordered. Case was discussed with the patient's RN. Kaz Gilmore M.D. DR: Med JOB#: [id number] CC:
[2019-06-20] MEDS ORDERED: Vancomycin 1 GM in NS 275 ML IVPB SCH (18:00)
--- NOTE | 2019-06-20 19:29 | NUR ---
HAND-OFF: Report given to adalgisa pelletier.
[2019-06-20 20:00] VITALS: BP 190/119
--- NOTE | 2019-06-20 21:45 | General Progress Note ---
Assessment/Plan Problem List: (1) Cellulitis of right hand ICD Codes: L03.113 - Cellulitis of right upper limb SNOMED: 33226488 (2) Altered level of consciousness ICD Codes: R40.4 - Transient alteration of awareness SNOMED: 6718861 (3) Sepsis ICD Codes: A41.9 - Sepsis, unspecified organism SNOMED: 80229135 Qualifiers: Qualified Codes: A41.9 - Sepsis, unspecified organism (4) Left middle cerebral artery stroke ICD Codes: I63.512 - Cerebral infarction due to unspecified occlusion or stenosis of left middle cerebral artery SNOMED: 784014688 (5) Left carotid artery occlusion ICD Codes: I65.22 - Occlusion and stenosis of left carotid artery SNOMED: 701702842012575 (6) Hypernatremia Assessment & Plan: ok ICD Codes: E87.0 - Hyperosmolality and hypernatremia SNOMED: 965604333 (7) Hypokalemia Assessment & Plan: better ICD Codes: E87.6 - Hypokalemia SNOMED: 24861481 (8) DM (diabetes mellitus) ICD Codes: E11.9 - Type 2 diabetes mellitus without complications SNOMED: 47587806 Assessment/Plan: continue ASA abxs Discussed with radiologist needs placement start TF SSI Subjective Allergies: Coded Allergies: UNABLE TO ASSESS (Unverified , 06/18/19) Subjective In NAD Objective Last 24 Hour Vital Signs Date Time Temp Pulse Resp B/P (MAP) Pulse Ox O2 Delivery O2 Flow Rate FiO2 06/20/19 16:00 Room Air 06/20/19 16:00 98.7 78 21 164/119 (134) 97 06/20/19 15:30 80 06/20/19 12:02 90 06/20/19 12:00 Room Air 06/20/19 12:00 97.7 77 21 164/68 (100) 98 06/20/19 08:00 98.1 78 20 152/98 (116) 97 06/20/19 08:00 Room Air 06/20/19 07:40 84 06/20/19 04:00 Room Air 06/20/19 04:00 98.0 61 20 127/63 (84) 97 06/20/19 03:27 84 06/20/19 00:00 98.2 73 20 138/75 (96) 98 06/20/19 00:00 Room Air 06/20/19 00:00 65 Intake and Output 06/19/19 06/20/19 19:00 07:00 Intake Total 1723.332 ml 1404.916 ml Output Total 150 ml Balance 1723.332 ml 1254.916 ml IV Total 1723.332 ml 1404.916 ml Output Urine Total 150 ml # Voids 2 4 Laboratory Tests 06/20/19 00:45: White Blood Count 15.6H, Red Blood Count 5.44, Hemoglobin 17.2, Hematocrit 48.5 , Mean Corpuscular Volume 89, Mean Corpuscular Hemoglobin 31.7H, Mean Corpuscular Hemoglobin Concent 35.5, Red Cell Distribution Width 10.9L, Platelet Count 200, Mean Platelet Volume 7.6, Neutrophils (%) (Auto) 70.9, Lymphocytes (%) (Auto) 21.3, Monocytes (%) (Auto) 6.7, Eosinophils (%) (Auto) 0.4, Basophils (%) (Auto) 0.7, Sodium Level 144, Potassium Level 3.5, Chloride Level 111H, Carbon Dioxide Level 24, Anion Gap 10, Blood Urea Nitrogen 11, Creatinine 1.0, Estimat Glomerular Filtration Rate , Glucose Level 162H, Calcium Level 7.9L, Vancomycin Level Trough 7.4 Height (Feet): 5 Height (Inches): 8.00 Weight (Pounds): 180 Cardiovascular: normal rate Respiratory/Chest: lungs clear Abdomen: soft Edema: no edema noted Kaz Thorpe MD Jun 20, 2019 21:45
[2019-06-21] VITALS (7 sets, daily range): BP systolic 110–183; BP diastolic 68–85
[2019-06-21] MEDS: NovoLOG Insulin Flexpen SUBQ SCH ×3 (05:42→21:41)
[2019-06-21] MEDS: Zoysn 3.37gm in NS 100ML IVPB SCH ×2 (05:42→14:11)
--- NOTE | 2019-06-21 07:30 | NUR ---
HAND-OFF: Report given to CORNELIA BADILLO. Pt remains stable.
--- NOTE | 2019-06-21 07:35 | NUR ---
Received pt from JUSTINO Dove. Patient is resting in bed, arousable to shaking, and nonverbal. Patient is on room air with no signs of respiratory distress. Patient has Glucerna 1.5 running at 40ml/h via NG tube and tolerating well. Bed is in lowest position, locked and call light is within reach. Will continue to monitor.
[2019-06-21] MEDS ORDERED: Vancomycin 1.25gm/NS Premix q24h IVPB SCH (09:00)
[2019-06-21] MEDS: D5 1/2NS w/KCl 20mEq 1,000 ML IV SCH ×2 (09:09→18:15)
--- NOTE | 2019-06-21 10:24 | NUR ---
CASE MANAGEMENT:REVIEW SI;CVA. SEPSIS. RT HAND CELLULITIS 99.0 104 24 190/119 97% RA WBC=15.6 CA=7.9 IS;IV VANCO Q12 HRS IV ZOSYN ASP GT QD IV HYDRALAZINE Q4 HRS PRN CLONIDINE Q4 HRS PRN IVF D5W @75ML/HR [facility] STATUS DCP;ECF/SNF PLACEMENT
--- NOTE | 2019-06-21 13:40 | NUR ---
ST NOTES: SWALLOW STATUS: PATIENT IS AGAIN NOT ALERT FOR PO TRIALS NOR MODIFIED BARIUM SWALLOW STUDY. HE IS NOW RECEIVING NGT FEEDINGS PER PRINCE BADILLO. NEW STAFF EDUCATED/TRAINED IN POSTED ORAL CARE AND ASPIRATION PRECAUTIONS. PER MRI BRAIN: (3 DAYS S/P) ACUTE LARGE LEFT MCA CVA WITH RIGHT-SIDED HEMPLEGIA AND OLD BILATERAL LACUNAR INFARCTS IN BASAL GANGLIA AND DEEP WHITE MATTER, AND SINUS DZ. PER DR LY, THE PATIENT WILL LIKELY NEED A PEG. PLAN: CONTINUE WITH NGT FEEDINGS AND ORAL CARE CHECK DAILY FOR PO READINESS F/UP WITH MOD BARIUM SWALLOW STUDY PRIOR TO OR AFTER PEG IF READY. D/W STAFF (DR LY, RN, PRINCE, AND LEFT MESSAGE WITH DR LE)
--- NOTE | 2019-06-21 13:42 | CDS Physician Query ---
Clarification is required for compliance, coding accuracy, and to reflect severity of illness for this patient Dear Dr. Kaz Gilmore M.D. Date: 06/21/2019 Mapping Technician/CDS Name: James Reardon The patient is a 73-year-old male, who was brought in by paramedics for altered level of consciousness. The patient was found by his neighbors on the morning of transfer. The patient apparently was living alone. He has history of hypertension. He could not provide any history in the ER. "Altered Mental Status" documented in progress notes Please indicate the nature and chronicity of the condition below: [] Metabolic Encephalopathy [] Toxic Encephalopathy [] Toxic - Metabolic Encephalopathy [] Encephalopathy, Other [] Dementia with Delirium [] Hypoxic encephalopathy [] Posterior reversible encephalopathy syndrome [x] Other: Acute CVA [] Not Applicable Present on Admission: [] Yes [] No [] Clinically Undetermined Physician signature Date Please also document in your Progress Notes and/or Discharge Summary and indicate if the condition was present on admission. MTDD
--- NOTE | 2019-06-21 14:07 | General Progress Note ---
Assessment/Plan Problem List: (1) Cellulitis of right hand ICD Codes: L03.113 - Cellulitis of right upper limb SNOMED: 39976875 (2) Altered level of consciousness ICD Codes: R40.4 - Transient alteration of awareness SNOMED: 3508333 (3) Sepsis ICD Codes: A41.9 - Sepsis, unspecified organism SNOMED: 93623899 Qualifiers: Qualified Codes: A41.9 - Sepsis, unspecified organism (4) Left middle cerebral artery stroke ICD Codes: I63.512 - Cerebral infarction due to unspecified occlusion or stenosis of left middle cerebral artery SNOMED: 137199187 (5) Left carotid artery occlusion ICD Codes: I65.22 - Occlusion and stenosis of left carotid artery SNOMED: 098911507729047 (6) Hypernatremia Assessment & Plan: ok ICD Codes: E87.0 - Hyperosmolality and hypernatremia SNOMED: 772950254 (7) Hypokalemia Assessment & Plan: better ICD Codes: E87.6 - Hypokalemia SNOMED: 34366172 (8) DM (diabetes mellitus) ICD Codes: E11.9 - Type 2 diabetes mellitus without complications SNOMED: 24503872 Assessment/Plan: continue ASA abxs Discussed with hospice case manager needs placement start TF SSI Subjective Allergies: Coded Allergies: UNABLE TO ASSESS (Unverified , 06/18/19) Subjective In NAD Objective Last 24 Hour Vital Signs Date Time Temp Pulse Resp B/P (MAP) Pulse Ox O2 Delivery O2 Flow Rate FiO2 06/21/19 12:00 100.0 55 28 114/70 (85) 95 06/21/19 12:00 Room Air 06/21/19 11:50 79 06/21/19 08:03 72 06/21/19 08:00 Room Air 06/21/19 08:00 97.7 51 24 112/71 (85) 97 06/21/19 04:00 81 06/21/19 04:00 Room Air 06/21/19 04:00 98.6 55 21 110/76 (87) 96 06/21/19 00:00 68 06/21/19 00:00 Room Air 06/21/19 00:00 99.0 60 20 143/68 (93) 98 06/20/19 20:00 86 06/20/19 20:00 99.1 104 20 190/119 (142) 97 06/20/19 20:00 Room Air 06/20/19 16:00 Room Air 06/20/19 16:00 98.7 78 21 164/119 (134) 97 06/20/19 15:30 80 Intake and Output 06/20/19 06/21/19 19:00 07:00 Intake Total 1146.208 ml 1807.5 ml Output Total 900 ml Balance 246.208 ml 1807.5 ml Free Water 500 ml IV Total 1146.208 ml 1037.5 ml Tube Feeding 270 ml Output Urine Total 900 ml # Voids 2 Laboratory Tests 06/21/19 00:50: Vancomycin Level Trough 25.1H Height (Feet): 5 Height (Inches): 8.00 Weight (Pounds): 180 Cardiovascular: normal rate Respiratory/Chest: lungs clear Edema: no edema noted Generalized Kaz Gilmore MD Jun 21, 2019 14:07
--- NOTE | 2019-06-21 16:00 | NUR ---
NURSE NOTES: Report received from Africa BADILLO. Patient is awake, alert and oriented x 0. Patient is non verbal. Opens eyes to shaking. does not follow commands. Patient responds and withdraws to pain. Patient noted to have have 20 charlotte IV in left hand saline lock. Patent and flushes. 20 charlotte noted in right forearm. Zosyn currently running. Patient is also receiving D51/2NS20 MEQKCL at 75 ml/hr through IV in right forearm. IV intact, no signs of leaking, edema, or draining. Nasogastric tube via right nare noted. In tact and confirmed by xray that NG tube is in correct location. Glucerna 1.5 currently running at 40 ml/hr. Goal rate is 50 ml/hr. If patient continues to tolerate up rate in the next 4 to 6 hours. left soft wrist restraint for safety noted. capillary refill present, radial pulse present. Order obtained by MD. Does not need to be renewed at this time. Right hand noted to be red and swollen. X ray confirms no fracture, concern of cellulitis per MD. capillary refill less than 3 seconds. radial pulse present. Left hand slightly swollen. raid pulse present. lacerations noted, no drainage or bleeding coming from lacerations. slight erythema noted in scrotum. otherwise skin in tact, no other skin issues. condom catheter in place with clear yellow urine draining into cooper bag. patients lung sounds are clear, oxygen saturation of 97 % room air, patient does not appear to be in respiratory distress. Patients blood pressure of 175/62, and apical heart rate of 40 BPM noted. Doctor Deirdre made aware. Deirdre ordered to monitor vital signs frequently and to inform him if heart rate drops below 40 BPM. Patient is to stay on 4E at this time. Bed locked, in lowest position, and alarmed. Will continue to monitor and follow plan of care.
--- NOTE | 2019-06-21 16:00 | NUR ---
TRANSFER TO FLOOR: Patient transferred to [facility], per Dr. Gilmore. Report given to JUSTINO Augustine. Belongings and medications given to JUSTINO Augustine. Family and or S/O informed of transfer.
[2019-06-21] MEDS ORDERED: D5 1/2NS w/KCl 20mEq 1,000 ML IV SCH (16:16)
[2019-06-21] MEDS ORDERED: Milk of Magnesia 30ml Ud NG PRN ×2 (16:18→18:15)
[2019-06-21] MEDS ORDERED: Acetaminophen 650mg/20.3ml NG PRN (16:30)
[2019-06-21] MEDS ORDERED: NovoLOG Insulin Flexpen SUBQ SCH (17:00)
--- NOTE | 2019-06-21 17:05 | NUR ---
CHARGE NURSE NOTE: Received patient from SDU. AXOXO, BP 170/60, [id number]. notified. He wants to monitor patient at med-surg unit. If Next BP will drop to less than 40bpm, notify doctor Deirdre and send pt to telemetry.
[2019-06-21] MEDS ORDERED: HydrALAZINE 50mg tab NG PRN (17:14)
--- NOTE | 2019-06-21 17:24 | NUR ---
CHARGE NURSE NOTE: BP183/79, HR 39, RR28. notified. Received order to transfer patient to telemetry. Nursing Administrative Services Coordinator notified.
--- NOTE | 2019-06-21 18:08 | NUR ---
NURSE NOTES: Patient's transferred from [facility] per Dr. Aysha Gilmore's order. Patient's not alert, nonverbal, Ao x 0, no s/s of distress or SOB. Bed low and locked, call light within reach, quality assurance monitor is applied, side rails x 3, aspiration precaution. Nurse report given by JUSTINO Augustine. Patient's belonging list went over with two nurses and signed by both at bedside. Altered mental status. SCD is applied both lower extremities. Patient's on NGT feeding with Glucerna 1.5, at 40cc/hr, no residual noted. Right hand cellulitis noted, Left hand noted with laceration on 3rd and 4th digits. IVs are on RFA and Left hand; running fluids, no s/s tenderness or infiltration. Noted right side weakness. Left hand soft wrist restraint, 2 fingers width, pulse present, palpable. Present with condom catheter, clear yellow urine noted. Vital signs: BP 167/75, NE 82, Temp 97.3, RR 22, O2 96%. Will continue to monitor.
--- NOTE | 2019-06-21 19:15 | NUR ---
HAND-OFF: Report given to JUSTINO Crawford. Patient's stable, plan of care endorsed.
--- NOTE | 2019-06-21 19:25 | NUR ---
NURSE NOTES: Report received from Yadi Galicia RN.Pt sleeping quietly in bed ,noted no resp distress,no signs of pain or discomfort,SR on the monitor,NGT feeding Glucerna 1.5 at 40 ml/hr,in placed per auscultation,no residual noted,condom cath in placed draining yellow urine,skin warm and dry ,IVF D51/2 NS +20 meq KCL to RFA and SL to LH intact,SR up x2 HOB elevated,bed lock in lowest position will continue with plans of care.
[2019-06-21] MEDS ORDERED: Vancomycin 1.25gm/NS Premix 275 ML IVPB SCH (21:00)
[2019-06-21] MEDS: Vancomycin 1.25gm/NS Premix 275 ML IVPB SCH (21:00)
[2019-06-21] MEDS: Piperacillin/Tazobactam 3.375 GM in NS 110 ML IVPB SCH (21:58)
[2019-06-21] MEDS ORDERED: Piperacillin/Tazobactam 3.375 GM in NS 110 ML IVPB SCH (22:00)
[2019-06-22] VITALS: BP 156/70
--- NOTE | 2019-06-22 01:24 | NUR ---
NURSE NOTES: Pt asleep ,stable in no resp distress,turned and repositioned.
[2019-06-22 04:00] VITALS: BP 151/76
[2019-06-22] MEDS: Piperacillin/Tazobactam 3.375 GM in NS 110 ML IVPB SCH ×3 (05:31→21:27)
[2019-06-22] MEDS: NovoLOG Insulin Flexpen SUBQ SCH ×4 (05:43→21:27)
[2019-06-22] MEDS: D5 1/2NS w/KCl 20mEq 1,000 ML IV SCH ×2 (07:02→21:21)
--- NOTE | 2019-06-22 07:25 | NUR ---
HAND-OFF: Report given to Erica HERMAN .
--- NOTE | 2019-06-22 07:44 | NUR ---
NURSE NOTES: Received report from JUSTINO Crawford. Patient in bed resting, no active s/s cardiac, respiratory distress noticed at this time. Patient AOX0-1, SB with HR 47. Patient on NGT, Glucerna 1.5 at 50mL/h. Patient on soft wrist restraint on left arm, able to move, cap refill <3 sec. IV on right FA 20G, left hand 22G, asymptomatic, patent, intact. IVF running as prescribed rate. Bed in lowest position, side rails upx2, call light within reach, bed alarm on. Will continue to monitor.
[2019-06-22 08:00] VITALS: BP_SYST 100; BP_SYST 130; BP_DIAS 50
[2019-06-22] MEDS: Vancomycin 1.25gm/NS Premix 275 ML IVPB SCH (08:38)
[2019-06-22 12:00] VITALS: BP 160/91
--- NOTE | 2019-06-22 13:03 | NUR ---
CASE MANAGEMENT:REVIEW 06/22/19 SI: LARGE CVA. CAROTID VESSEL OCCLUSION SEPSIS. 98.1 54 20 100/50 98% ON RA IS: IV VANCOMYCIN Q12 IV ZOSYN Q8HRS IVF@75/HR ASA PO QD : NOW ON TELEMETRY FROM [facility] PLAN: UNCLEAR...NO FAMILY CONTACT...PATIENT NOT COHERENT
--- NOTE | 2019-06-22 13:11 | NUR ---
NURSE NOTES: Dr. Gilmore at the nursing station, made aware patient just pulled out NGT, per MD, re-insert and x-ray to confirm placement. Order noted, entered, carried out. Will continue to monitor.
--- NOTE | 2019-06-22 13:14 | General Progress Note ---
Assessment/Plan Problem List: (1) Cellulitis of right hand ICD Codes: L03.113 - Cellulitis of right upper limb SNOMED: 34339389 (2) Altered level of consciousness ICD Codes: R40.4 - Transient alteration of awareness SNOMED: 9818472 (3) Sepsis ICD Codes: A41.9 - Sepsis, unspecified organism SNOMED: 91769270 Qualifiers: Qualified Codes: A41.9 - Sepsis, unspecified organism (4) Left middle cerebral artery stroke ICD Codes: I63.512 - Cerebral infarction due to unspecified occlusion or stenosis of left middle cerebral artery SNOMED: 619491808 (5) Left carotid artery occlusion ICD Codes: I65.22 - Occlusion and stenosis of left carotid artery SNOMED: 317674248899773 (6) Hypernatremia Assessment & Plan: ok ICD Codes: E87.0 - Hyperosmolality and hypernatremia SNOMED: 904837524 (7) Hypokalemia Assessment & Plan: better ICD Codes: E87.6 - Hypokalemia SNOMED: 88527873 (8) DM (diabetes mellitus) ICD Codes: E11.9 - Type 2 diabetes mellitus without complications SNOMED: 72470069 Assessment/Plan: continue ASA abxs Discussed with RN needs placement TF SSI Subjective Allergies: Coded Allergies: UNABLE TO ASSESS (Unverified , 06/18/19) Subjective pulled NG Objective Last 24 Hour Vital Signs Date Time Temp Pulse Resp B/P (MAP) Pulse Ox O2 Delivery O2 Flow Rate FiO2 06/22/19 09:00 Room Air 06/22/19 08:00 98.1 54 20 100/50 (67) 98 06/22/19 08:00 89 06/22/19 04:00 98.5 47 21 151/76 (101) 21 06/22/19 04:00 82 06/22/19 00:48 73 06/22/19 00:00 Room Air 06/22/19 00:00 98.0 47 21 156/70 (98) 96 06/21/19 20:00 73 06/21/19 20:00 98.1 39 19 144/85 (104) 96 06/21/19 20:00 Room Air 06/21/19 17:20 99.2 39 28 183/79 (113) 06/21/19 16:00 Room Air 06/21/19 16:00 97.5 40 22 183/79 (113 94 Intake and Output 06/21/19 06/22/19 19:00 07:00 Intake Total 320 ml 1417.5 ml Output Total 1100 ml 1300 ml Balance -780 ml 117.5 ml Free Water 470 ml IV Total 357.5 ml Tube Feeding 320 ml 470 ml Other 120 ml Output Urine Total 1100 ml 1300 ml # Bowel Movements 2 Height (Feet): 5 Height (Inches): 8.00 Weight (Pounds): 166 Cardiovascular: normal rate Respiratory/Chest: lungs clear Edema: no edema noted Generalized Kaz Gilmore MD Jun 22, 2019 13:14
--- NOTE | 2019-06-22 13:46 | NUR ---
RD ASSESSMENT & RECOMMENDATIONS SEE CARE ACTIVITY FOR COMPLETE ASSESSMENT DAILY ESTIMATED NEEDS: Needs based on sepsis 72kg adj 25-30 kcals/kg 9944-0818 total kcals 1-2 g protein/kg 72-144 g total protein 25-30 mL/kg 0726-3364 total fluid mLs NUTRITION DIAGNOSIS: * Swallowing difficulty R/T dysphagia, s/p new and old CVA as evidenced by NPO per [employer] rec, on NGT feeds at this time. * Altered nutrition related lab values r/t sepsis and clinical status as evidenced by elev WBC (15.6), elev BG 162-179, w/ A1C 6.9. CURRENT DIET: NPO CURRENT TF:Glucerna 1.5 @50ml/hr x24 hrs PO DIET RECOMMENDATIONS: If appropriate-> LOW NA/ CCHO MED (texture per [employer]IATE) ENTERAL NUTRITION RECOMMENDATIONS: Glucerna 1.5 @50ml/hr x24 hrs to provide 1200ml, 1800 kcal, 99g pro, 911ml free H2O - Maintain current TF - HOB over 30 degrees - Without IVF, H20 flush of 160ml q 4 hrs ADDITIONAL RECOMMENDATIONS: 1) Maintain calibrated bed scale wts 2) Monitor for readiness for PO diet, [employer] recommendation -> rec to continue nonoral feeds at this time 3) Rec to DC D5 IVF and increase water flushes for improved BG control 4) Updated CBC, BMP, and lytes
--- NOTE | 2019-06-22 15:09 | NUR ---
RADIOLOGY DEPT, ABDOMEN X-RAY FOR NGT PLCPR COMPLETED.-P.DYE
--- NOTE | 2019-06-22 15:22 | Diagnostic Imaging Report ---
Indication: Abdominal pain Comparison: 06/19/2019 Single view of the abdomen obtained Findings: NG tube is present. The tip is within the stomach but the proximal port is above the EG junction. The tube should be advanced further. IMPRESSION: Nasogastric tube is suboptimal and should be advanced further
--- NOTE | 2019-06-22 15:33 | NUR ---
NURSE NOTES: Visitors, who claimed to be land shipping hand came, named as John Bryant tele : [phone]. Stated he does not know about family member, family member never visited the patient. mental health social worker made aware.
[2019-06-22 16:00] VITALS: BP 110/72
--- NOTE | 2019-06-22 16:08 | NUR ---
[employer] This SW was notified by Sharri from Admitting [phone] assist locating pt's family/relatives/neighbors. SW met w/ pt. Pt was lying in his bed, awake, open eyes but non-verbal. When SW asked pt in regards to his family, pt shaked his head sideways. Then pt avoided making eye contact w/ SW. SW spoke w/ Mr. Tyler from Adult Missing Person [phone] that pt is not reported as missing person. LUAN was notified that pt's current landlord Erich Bryant (Portuguese speaking) [phone] visited the unit. SW called and spoke w/ Erich Bryant. Per Erich, pt has been renting a room at this place for 5 years. 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 Per Erich, he was told by pt that his sister/brother resides in [facility] and never mentioned other family members. Erich believes pt has been experiencing financial difficulty as he failed to pay rent for three months. It is unknown whether pt has other source of income. Signed: 06/22/19 at 1609 by TRISH ROLAND <Co-Signature Required>
--- NOTE | 2019-06-22 17:09 | NUR ---
NURSE NOTES: AC insulin not given for pending result of NGT placement.
--- NOTE | 2019-06-22 19:04 | NUR ---
NURSE NOTES: Received report from JUSTINO Crawford. Patient in bed resting and remains oriented x1 to name. No active signs cardiac or respiratory distress noticed at this time pt remains B with HR 49 on tele monitor. NG Tube noted to the right nare marked at 67" and secured. Tube feeding being administered as prescribed, Glucerna 1.5 at 40mL/hr with a goal of 50mL/hr, will increase per protocol as tolerated. Bilateral soft wrist restraints noted and CMS remains intact. Skin remains intact. Right FA 20g IV catheter notedIV on right FA 20G, left hand 22G, asymptomatic, patent, intact. IVF running as prescribed rate. Bed in lowest position, side rails upx2, call light within reach, bed alarm activated and safety wheels engaged. Will continue to monitor.
--- NOTE | 2019-06-22 19:37 | NUR ---
HAND-OFF: Report given to JUSTINO Gonzales.
[2019-06-22 20:00] VITALS: BP 105/55
--- NOTE | 2019-06-22 21:00 | NUR ---
NURSE NOTES: Pt provided with a bed bath, linen change and oral care. Pt tolerated care well. Bed remains in the lowest position, side rails up x2, call light within reach, bed alarm activated and safety wheels engaged. Will continue to monitor.
--- NOTE | 2019-06-22 21:23 | NUR ---
NURSE NOTES: Spoke with pharmacy vanco trough is elevated, hold scheduled vancomycin. Will continue to monitor.
[2019-06-23] VITALS: BP 151/88
[2019-06-23] MEDS ORDERED: Vancomycin 1gm/D5W 275ml IVPB SCH ×2 (03:00)
[2019-06-23 04:00] VITALS: BP 208/112
[2019-06-23] MEDS: HydrALAZINE 50mg tab NG PRN ×2 (04:01→20:39)
--- NOTE | 2019-06-23 04:21 | NUR ---
NURSE NOTES: VS revealed elevated SBP 208, administered hydralazine as ordered; will re-evaluate. Will continue to monitor.
[2019-06-23] MEDS: NovoLOG Insulin Flexpen SUBQ SCH ×4 (05:55→20:24)
[2019-06-23] MEDS: Piperacillin/Tazobactam 3.375 GM in NS 110 ML IVPB SCH (05:56)
[2019-06-23] MEDS: D5 1/2NS w/KCl 20mEq 1,000 ML IV SCH ×2 (05:57→20:21)
[2019-06-23 07:31] LABS: ANION GAP 13 mmol/L (5-15); BLOOD UREA NITROGEN 24 mg/dL (7-18); CALCIUM 8.2 MG/DL (8.5-10.1); CARBON DIOXIDE 23 MMOL/L (21-32); CHLORIDE 108 MMOL/L (98-107); CREATININE 1.5 MG/DL (0.55-1.30); POTASSIUM 3.2 MMOL/L (3.5-5.1); SODIUM 144 MMOL/L (136-145)
--- NOTE | 2019-06-23 07:35 | NUR ---
HAND-OFF: Report given to JUSTINO Hinojosa. Pt remains stable at this time.
[2019-06-23 08:00] VITALS: BP 190/94
--- NOTE | 2019-06-23 10:18 | Diagnostic Imaging Report ---
. Indication: Status post nasogastric tube placement Technique: Supine view of the abdomen Comparison: 06/22/2019 Findings: Interim advancement of nasogastric tube, tip now projected in good position at the level gastric antrum. The bowel gas pattern is unremarkable. Impression: Satisfactory nasogastric intubation
--- NOTE | 2019-06-23 11:22 | NUR ---
CASE MANAGEMENT:REVIEW 06/23/19 SI: LARGE CVA. CAROTID VESSEL OCCLUSION SEPSIS. 97.7 82 26 190/94 92% ON RA K-3.2 BUN+24 CR+1.5 IS: IV VANCOMYCIN Q12 IV ZOSYN Q8HRS IVF@75/HR ASA PO QD : TELEMETRY STATUS PLAN: ?
[2019-06-23 12:00] VITALS: BP 132/89
--- NOTE | 2019-06-23 13:35 | General Progress Note ---
Assessment/Plan Problem List: (1) Cellulitis of right hand ICD Codes: L03.113 - Cellulitis of right upper limb SNOMED: 67238204 (2) Altered level of consciousness ICD Codes: R40.4 - Transient alteration of awareness SNOMED: 9487504 (3) Sepsis ICD Codes: A41.9 - Sepsis, unspecified organism SNOMED: 90121908 Qualifiers: Qualified Codes: A41.9 - Sepsis, unspecified organism (4) Left middle cerebral artery stroke ICD Codes: I63.512 - Cerebral infarction due to unspecified occlusion or stenosis of left middle cerebral artery SNOMED: 627622624 (5) Left carotid artery occlusion ICD Codes: I65.22 - Occlusion and stenosis of left carotid artery SNOMED: 384141283840234 (6) Hypernatremia Assessment & Plan: ok ICD Codes: E87.0 - Hyperosmolality and hypernatremia SNOMED: 870804017 (7) Hypokalemia Assessment & Plan: better ICD Codes: E87.6 - Hypokalemia SNOMED: 29610605 (8) DM (diabetes mellitus) ICD Codes: E11.9 - Type 2 diabetes mellitus without complications SNOMED: 21566904 Assessment/Plan: continue ASA DC vanco Discussed with RN needs placement Replete K TF SSI Subjective Allergies: Coded Allergies: UNABLE TO ASSESS (Unverified , 06/18/19) Subjective In NAD Objective Last 24 Hour Vital Signs Date Time Temp Pulse Resp B/P (MAP) Pulse Ox O2 Delivery O2 Flow Rate FiO2 06/23/19 12:00 97.9 89 20 132/89 (103) 98 06/23/19 09:00 Room Air 06/23/19 08:00 81 06/23/19 08:00 97.7 82 26 190/94 (126) 92 06/23/19 04:01 208/112 06/23/19 04:00 97.1 81 18 208/112 (144) 97 06/23/19 03:35 72 06/23/19 00:00 97.8 71 16 151/88 (109) 95 06/22/19 23:27 69 06/22/19 20:00 97.7 45 16 105/55 (72) 95 06/22/19 19:00 83 06/22/19 16:00 98.2 50 20 110/72 (85) 95 06/22/19 16:00 77 Intake and Output 06/22/19 06/23/19 19:00 07:00 Intake Total 225 ml 1788.75 ml Output Total 900 ml 1100 ml Balance -675 ml 688.75 ml Free Water 500 ml IV Total 185 ml 848.75 ml Tube Feeding 40 ml 440 ml Output Urine Total 900 ml 1100 ml # Bowel Movements 3 Laboratory Tests 06/22/19 20:00: Vancomycin Level Trough 23.3H 06/23/19 06:05: Sodium Level 144, Potassium Level 3.2L, Chloride Level 108H, Carbon Dioxide Level 23, Anion Gap 13, Blood Urea Nitrogen 24H, Creatinine 1.5H, Estimat Glomerular Filtration Rate , Glucose Level 226H, Calcium Level 8.2L 06/23/19 12:05: Vancomycin Level Trough 13.0H Height (Feet): 5 Height (Inches): 8.00 Weight (Pounds): 166 Cardiovascular: normal rate Respiratory/Chest: lungs clear Kaz Gilmore MD Jun 23, 2019 13:35
[2019-06-23] MEDS ORDERED: Vancomycin 1gm in D5W 275ml IVPB SCH (15:00)
--- NOTE | 2019-06-23 15:53 | NUR ---
MATTRESS RENOVATOR PROGRESS NOTE LUAN received a following information from Sharri, Admitting: Possible family member: Un Cece Hlom(sister) [phone] & [phone]. LUAN attempted to call [phone] but the call was not answered and left a vm for call back. LUAN attempted to call [phone] twice but calls were not answered w/o vm option. LUAN attempted possible numbers of pt; [phone] (not in service), (ringing w/o vm option), (ringing w/o vm option) LUAN will continue to F/U. Signed: 06/23/19 at 1600 by TRISH ROLAND <Co-Signature Required>
[2019-06-23 16:00] VITALS: BP 184/86
--- NOTE | 2019-06-23 16:07 | NUR ---
NOTES: SWALLOW STATUS: PATIENT NOW ON TELEMETRY 2 EAST. PER RN,HE IS STILL NOT CONSISTENTLY ALERT. HE WILL OPEN HIS EYES AND THEN CLOSE THEM. PATIENT IN BED AND HAS NGT WITH FEEDINGS. TENDS TO OPEN HIS EYES WHEN YOU CALL HIS NAME AND THEN HE WILL CLOSE THEM QUICKLY. STILL NO GI CONSULT TO DATE. PER DR LY, PATIENT WILL LIKELY NEED A PEG. PATIENT IS STILL NOT READY FOR MODIFIED BARIUM SWALLOW STUDY. REPOSTED THE SIGN WHICH SAYS NPO, ORAL CARE, AND ASPIRATION PRECAUTIONS WHILE NGT FEEDINGS ARE RUNNING. PLAN: F/UP WITH MOD BARIUM SWALLOW STUDY WHEN READY CONTINUE WITH NONORAL FEEDINGS, ORAL CARE, AND ASP PREC D/W SHABBIR BADILLO
--- NOTE | 2019-06-23 19:30 | NUR ---
OBTAINED REPORT FROM SHABBIR BADILLO. PT RESTING IN BED FREE FROM APPARENT DISTRESS.
--- NOTE | 2019-06-23 19:46 | NUR ---
HAND-OFF: Report given to PRESLEY BADILLO.
[2019-06-23 20:00] VITALS: BP 170/90
[2019-06-24] VITALS: BP 160/90
[2019-06-24 04:00] VITALS: BP 165/90
[2019-06-24] MEDS: NovoLOG Insulin Flexpen SUBQ SCH ×4 (05:58→22:42)
--- NOTE | 2019-06-24 07:17 | NUR ---
GAVE FULL REPORT MARIA ESTHER SHEA RN. PT FREE FROM APPARENT DISTRESS.
[2019-06-24 07:35] LABS: ANION GAP 10 mmol/L (5-15); BLOOD UREA NITROGEN 31 mg/dL (7-18); CALCIUM 8.2 MG/DL (8.5-10.1); CARBON DIOXIDE 24 MMOL/L (21-32); CHLORIDE 112 MMOL/L (98-107); CREATININE 1.6 MG/DL (0.55-1.30); POTASSIUM 3.9 MMOL/L (3.5-5.1); SODIUM 146 MMOL/L (136-145)
[2019-06-24 08:00] VITALS: BP 159/92
[2019-06-24] MEDS: D5 1/2NS w/KCl 20mEq 1,000 ML IV SCH ×2 (08:53→23:28)
--- NOTE | 2019-06-24 11:02 | NUR ---
RD ASSESSMENT & RECOMMENDATIONS SEE CARE ACTIVITY FOR COMPLETE ASSESSMENT DAILY ESTIMATED NEEDS: Needs based on sepsis 72kg adj 25-30 kcals/kg 7992-3302 total kcals 1-2 g protein/kg 72-144 g total protein 25-30 mL/kg 3253-1883 total fluid mLs NUTRITION DIAGNOSIS: * Swallowing difficulty R/T dysphagia, s/p new and old CVA as evidenced by NPO per MARKETING INTELLIGENCE ANALYST rec, on NGT feeds at this time. * Altered nutrition related lab values r/t sepsis and clinical status as evidenced by elev WBC (15.6), elev POC glu (203 170 186 195) w/ A1C 6.9. CURRENT DIET: NPO CURRENT TF:Glucerna 1.5 @50ml/hr x24 hrs PO DIET RECOMMENDATIONS: WHEN SAFE FOR ORAL DIET-> LOW NA/ CCHO MED (texture per MARKETING INTELLIGENCE ANALYST) ENTERAL NUTRITION RECOMMENDATIONS: Glucerna 1.5 @50ml/hr x24 hrs to provide 1200ml, 1800 kcal, 99g pro, 911ml free H2O - Maintain current TF - HOB over 30 degrees - Without IVF, H20 flush of 200ml q 4 hrs ADDITIONAL RECOMMENDATIONS: 1) Maintain calibrated bed scale wts 2) Monitor for readiness for PO diet, MARKETING INTELLIGENCE ANALYST recommendation -> MARKETING INTELLIGENCE ANALYST w/ rec to continue nonoral feeds at this time 3) Rec to DC D5 IVF and increase water flushes for improved BG control Consider long acting insulin for improved BG control 4) Monitor hydration status + renal fxn: BUN/Creat trending up at this time Rec to increase water flushes
[2019-06-24 12:00] VITALS: BP 165/89
--- NOTE | 2019-06-24 14:46 | General Progress Note ---
Assessment/Plan Problem List: (1) Cellulitis of right hand ICD Codes: L03.113 - Cellulitis of right upper limb SNOMED: 66897551 (2) Altered level of consciousness ICD Codes: R40.4 - Transient alteration of awareness SNOMED: 3249966 (3) Sepsis ICD Codes: A41.9 - Sepsis, unspecified organism SNOMED: 21002281 Qualifiers: Qualified Codes: A41.9 - Sepsis, unspecified organism (4) Left middle cerebral artery stroke ICD Codes: I63.512 - Cerebral infarction due to unspecified occlusion or stenosis of left middle cerebral artery SNOMED: 561582648 (5) Left carotid artery occlusion ICD Codes: I65.22 - Occlusion and stenosis of left carotid artery SNOMED: 360472334763567 (6) Hypernatremia Assessment & Plan: ok ICD Codes: E87.0 - Hyperosmolality and hypernatremia SNOMED: 258873586 (7) Hypokalemia Assessment & Plan: better ICD Codes: E87.6 - Hypokalemia SNOMED: 32835132 (8) DM (diabetes mellitus) ICD Codes: E11.9 - Type 2 diabetes mellitus without complications SNOMED: 89372320 Assessment/Plan: continue ASA Discussed with RN needs placement TF SSI psych consult Subjective Allergies: Coded Allergies: UNABLE TO ASSESS (Unverified , 06/18/19) Subjective In NAD Objective Last 24 Hour Vital Signs Date Time Temp Pulse Resp B/P (MAP) Pulse Ox O2 Delivery O2 Flow Rate FiO2 06/24/19 12:05 159/92 06/24/19 12:00 98.1 77 18 165/89 (114) 98 06/24/19 09:48 Room Air 06/24/19 08:00 98.4 76 18 159/92 (114) 96 06/24/19 08:00 67 06/24/19 05:54 165/70 06/24/19 04:00 98.4 71 20 165/90 (115) 96 06/24/19 04:00 62 06/24/19 01:13 160/90 06/24/19 00:00 78 06/24/19 00:00 98.5 81 20 160/90 (113) 97 06/23/19 20:39 170/90 06/23/19 20:00 98.6 89 20 170/90 (116) 98 06/23/19 20:00 74 06/23/19 19:00 Room Air 06/23/19 17:44 132/89 06/23/19 16:00 97.3 91 20 184/86 (118) 94 06/23/19 16:00 67 Intake and Output 06/23/19 06/24/19 19:00 07:00 Intake Total 1050 ml 550 ml Output Total 1450 ml 800 ml Balance -400 ml -250 ml Intake Oral 0 ml Free Water 500 ml 500 ml Tube Feeding 550 ml 50 ml Output Urine Total 1450 ml 800 ml # Voids 1 # Bowel Movements 2 Laboratory Tests 06/24/19 06:59: Sodium Level 146H, Potassium Level 3.9, Chloride Level 112H, Carbon Dioxide Level 24, Anion Gap 10, Blood Urea Nitrogen 31H, Creatinine 1.6H, Estimat Glomerular Filtration Rate , Glucose Level 195H, Calcium Level 8.2L Height (Feet): 5 Height (Inches): 8.00 Weight (Pounds): 166 Cardiovascular: normal rate Respiratory/Chest: lungs clear Kaz Gilmore MD Jun 24, 2019 14:46
--- NOTE | 2019-06-24 15:26 | NUR ---
CASE MANAGEMENT:REVIEW 06/24/19 SI: LARGE CVA. CAROTID VESSEL OCCLUSION SEPSIS. 98.1 77 18 165/89 98% ON RA IS: IVF@75/HR ASA NG QD CLONIDINE NG Q6HRS ZYPREXA NG QHS : TELEMETRY STATUS PLAN: ?
[2019-06-24 16:00] VITALS: BP 169/89
--- NOTE | 2019-06-24 19:44 | NUR ---
HAND-OFF: Report given to OMID BADILLO.
--- NOTE | 2019-06-24 19:50 | NUR ---
NURSE NOTES: Received report from JUSTINO Lane Patient in bed resting and remains oriented x 0- 1 to name, arousable to shaking, occasionally name. No active signs cardiac or respiratory distress . NG Tube noted to the right nares, secured. Tube feeding, Glucerna 1.5 at goal of 50mL/hr, Bilateral soft wrist restraints on, skin intact. . IVF running as prescribed rate. Bed in lowest position, side rails upx2, call light within reach, bed alarm activated and bed locked, will continue to monitor
[2019-06-24 20:00] VITALS: BP 143/90
--- NOTE | 2019-06-24 20:15 | NUR ---
NURSE NOTES: Received report from JUSTINO Lane, that patient had loose stool and it was collected for c-diff to rule out. Called laboratory to see if stool sample had been sent as it was endorsed that it was collected. Stool sent down with patient label but not collect lab label. Laboratory said they had it. I pressed collect as I saw that although it was sent that day, that 'collect' had not been pressed. Collected and lab confirmed they had sample.
[2019-06-25] VITALS (8 sets, daily range): BP systolic 153–190; BP diastolic 57–113
--- NOTE | 2019-06-25 04:45 | Consultation ---
DATE OF CONSULTATION: 06/24/2019 CONSULTING PHYSICIAN: Jessica Quinonez M.D. HISTORY OF PRESENT ILLNESS: The patient is a 73-year-old male with a history of multiple medical issues including diabetes mellitus, electrolyte abnormality, and cellulitis of right hand, was admitted to the hospital for sepsis. The patient is minimally talkative, confused, waxing and waning consciousness, and agitation. He attempted to pull out his midline and is unable to provide any meaningful history. PAST PSYCHIATRIC HISTORY: Unknown. PAST MEDICAL HISTORY: As above. ALLERGIES: Unknown. SUBSTANCE ABUSE HISTORY: No known history of illicit drug use or alcohol. The toxicology is negative for drugs and alcohol. MENTAL STATUS EXAMINATION: The patient is alert, confused, disoriented. Mood is agitated. Affect is flat. Thought process, there is a paucity of thought content. Cognition is impaired. Insight and judgment is impaired. ASSESSMENT: AXIS I: Acute metabolic encephalopathy, rule out dementia. AXIS II: Deferred. AXIS III: As above. AXIS IV: Low. AXIS V: 20. PLAN: 1. The patient was started on olanzapine 5 mg at bedtime. 2. Discussed with the nurse. Jessica Quinonez M.D. DR: TROY JOB#: [id number] CC:
[2019-06-25] MEDS: NovoLOG Insulin Flexpen SUBQ SCH ×3 (06:30→18:22)
--- NOTE | 2019-06-25 07:51 | NUR ---
HAND-OFF: Report given to JUSTINO Otoole.
--- NOTE | 2019-06-25 09:40 | NUR ---
NURSE NOTES: skin around groin reddened with rash due to incontinence cleaned and skin protectant applied.
--- NOTE | 2019-06-25 10:10 | NUR ---
NURSE NOTES: Dr. Gilmore made aware of BP levels.
[2019-06-25] MEDS: HydrALAZINE 50mg tab NG PRN (10:47)
[2019-06-25] MEDS: Acetaminophen 650mg/20.3ml NG PRN (12:29)
--- NOTE | 2019-06-25 13:30 | General Progress Note ---
Assessment/Plan Problem List: (1) Cellulitis of right hand ICD Codes: L03.113 - Cellulitis of right upper limb SNOMED: 19814675 (2) Altered level of consciousness ICD Codes: R40.4 - Transient alteration of awareness SNOMED: 0488822 (3) Sepsis ICD Codes: A41.9 - Sepsis, unspecified organism SNOMED: 38892309 Qualifiers: Qualified Codes: A41.9 - Sepsis, unspecified organism (4) Left middle cerebral artery stroke ICD Codes: I63.512 - Cerebral infarction due to unspecified occlusion or stenosis of left middle cerebral artery SNOMED: 709804257 (5) Left carotid artery occlusion ICD Codes: I65.22 - Occlusion and stenosis of left carotid artery SNOMED: 157569235603523 (6) Hypernatremia Assessment & Plan: ok ICD Codes: E87.0 - Hyperosmolality and hypernatremia SNOMED: 270702143 (7) Hypokalemia Assessment & Plan: better ICD Codes: E87.6 - Hypokalemia SNOMED: 83521786 (8) DM (diabetes mellitus) ICD Codes: E11.9 - Type 2 diabetes mellitus without complications SNOMED: 90469776 Assessment/Plan: DC IVF continue ASA Discussed with RN needs placement TF SSI start Duoneb start Zosyn CXR Subjective Allergies: Coded Allergies: UNABLE TO ASSESS (Unverified , 06/18/19) Subjective audible rales Objective Last 24 Hour Vital Signs Date Time Temp Pulse Resp B/P (MAP) Pulse Ox O2 Delivery O2 Flow Rate FiO2 06/25/19 12:56 96.1 78 22 159/74 (102) 93 06/25/19 12:28 190/82 06/25/19 12:00 96.1 78 22 190/98 (128) 93 06/25/19 12:00 86 06/25/19 10:47 172/113 06/25/19 09:00 Room Air 06/25/19 08:00 97.1 91 20 172/113 (132) 92 06/25/19 08:00 73 06/25/19 07:42 160/72 06/25/19 04:00 69 06/25/19 04:00 97.5 62 21 160/72 (101) 94 06/25/19 00:00 78 1/11/20 00:00 158/72 06/25/19 00:00 98.5 48 22 158/72 (100) 96 06/24/19 21:00 Room Air 06/24/19 20:00 97.0 69 23 143/90 (107) 96 06/24/19 20:00 80 06/24/19 17:49 169/89 06/24/19 16:00 98.5 70 20 169/89 (115) 94 06/24/19 16:00 76 Intake and Output 06/24/19 06/25/19 19:00 07:00 Output Total 400 ml Balance -400 ml Output Urine Total 400 ml # Voids 1 4 # Bowel Movements 2 5 Height (Feet): 5 Height (Inches): 8.00 Weight (Pounds): 166 Cardiovascular: normal rate Respiratory/Chest: crackles/rales, rhonchi - bilaterally Edema: no edema noted Generalized Kaz Gilmore MD Jun 25, 2019 13:30
--- NOTE | 2019-06-25 14:18 | NUR ---
RADIOLOGY DEPT., CHEST X-RAY DONE.-P.DYE
--- NOTE | 2019-06-25 15:19 | Diagnostic Imaging Report ---
EXAM: XR Chest, 1 View CLINICAL HISTORY: SOB TECHNIQUE: Frontal view of the chest. COMPARISON: Chest radiograph on 06/18/2019 FINDINGS: Hardware: Enteric tube courses past the diaphragm and out of the field- of-view. Lungs/pleura: Bibasilar opacities may represent atelectasis versus pneumonia. Persistent interstitial and hazy opacities may represent pulmonary edema and pulmonary vasculature congestion. Question patchy opacity in the right upper lobe which could represent atelectasis versus pneumonia. No pleural effusion or pneumothorax. Heart/mediastinum: Normal. No cardiomegaly. Soft tissues: Unremarkable. Bones: No acute fracture. Degenerative changes of the acromioclavicular joints and spine. Upper abdomen: Normal. IMPRESSION: 1. Enteric tube courses past the diaphragm and out of the [id number]. 2. Bibasilar opacities may represent atelectasis versus pneumonia. Persistent interstitial and hazy opacities may represent pulmonary edema and pulmonary vasculature congestion. Question patchy opacity in the right upper lobe which could represent atelectasis versus pneumonia.
[2019-06-25] MEDS: Piperacillin/Tazobactam 3.375 GM in NS 110 ML IVPB SCH (15:47)
[2019-06-25] MEDS: Albuterol/Ipratropium 3ml neb HHN SCH ×2 (16:00→20:21)
[2019-06-25] MEDS ORDERED: NS 275ml ONE (16:16)
[2019-06-25] MEDS ORDERED: D5W 275ml ONE (16:16)
--- NOTE | 2019-06-25 19:30 | NUR ---
HAND-OFF: Report given to JUSTINO Chester. Plan of care endorsed.
--- NOTE | 2019-06-25 19:57 | NUR ---
NURSE NOTES: Received report from JUSTINO Otoole. Patient in bed resting and remains oriented x 0-1 to name, arousable to shaking, occasionally name, but does not open eyes spontaneously. No active signs cardiac or respiratory distress. NG Tube noted to the right nares, secured. Tube feeding, Glucerna 1.5 at goal of 50mL/hr, residual less than 10. Bilateral soft wrist restraints on, skin intact. IVF running as prescribed rate, 75 ml/h. Bed locked, in lowest position, side rails up x 2, call light within reach, bed alarm on, activated, will continue to monitor
[2019-06-26] VITALS (8 sets, daily range): BP systolic 141–188; BP diastolic 56–97
[2019-06-26] MEDS: Albuterol/Ipratropium 3ml neb HHN SCH ×4 (00:20→20:06)
[2019-06-26] MEDS: Piperacillin/Tazobactam 3.375 GM in NS 110 ML IVPB SCH ×4 (00:31→22:43)
[2019-06-26] MEDS: NovoLOG Insulin Flexpen SUBQ SCH ×4 (00:37→18:18)
[2019-06-26] MEDS: HydrALAZINE 50mg tab NG PRN (00:44)
--- NOTE | 2019-06-26 07:19 | NUR ---
HAND-OFF: Report given to JUSTINO Otoole.
--- NOTE | 2019-06-26 07:20 | NUR ---
NURSE NOTES: Received report from JUSTINO Chester. Pt. in RA. RR 22. Sleeping comfortably, arousable to name and light touch. No active s/s of distress noted. NG Tube to the right nares, secured. Glucerna 1.5 running at goal of 50mL/hr, residual less than 10. Bilateral soft wrist restraints on, skin intact. R upper arm 22g IV intact, running Zosyn at prescribed rate. Bed on lowest position, side rails upx2, brakes engaged, alarm on. Call light within easy reach.
[2019-06-26 08:24] LABS: BASOPHILS % (AUTO) 0.4 % (0.0-2.0); EOSINOPHILS % (AUTO) 0.1 % (0.0-3.0); HEMATOCRIT 51.3 % (42.0-52.0); HEMOGLOBIN 17.8 G/DL (14.2-18.0); LYMPHOCYTES % (AUTO) 9.2 % (20.0-45.0); MEAN CORPUSCULAR VOLUME 92 FL (80-99); MONOCYTES % (AUTO) 7.8 % (1.0-10.0); NEUTROPHILS % (AUTO) 82.5 % (45.0-75.0); PLATELET COUNT 196 K/UL (150-450); RED BLOOD COUNT 5.59 M/UL (4.70-6.10); RED CELL DISTRIBUTION WIDTH 11.5 % (11.6-14.8); WHITE BLOOD COUNT 14.6 K/UL (4.8-10.8)
[2019-06-26 08:35] LABS: ANION GAP 13 mmol/L (5-15); BLOOD UREA NITROGEN 38 mg/dL (7-18); CALCIUM 8.2 MG/DL (8.5-10.1); CARBON DIOXIDE 24 MMOL/L (21-32); CHLORIDE 114 MMOL/L (98-107); CREATININE 1.7 MG/DL (0.55-1.30); POTASSIUM 3.9 MMOL/L (3.5-5.1); SODIUM 151 MMOL/L (136-145)
--- NOTE | 2019-06-26 10:10 | NUR ---
NURSE NOTES: Skin protector applied to groin area. Cleaned and made comfortable. NO S/S of distress noted.
[2019-06-26] MEDS ORDERED: Sterile Water Irrig 1000ml IRRIG ONE (15:27)
--- NOTE | 2019-06-26 16:36 | General Progress Note ---
Assessment/Plan Problem List: (1) Cellulitis of right hand ICD Codes: L03.113 - Cellulitis of right upper limb SNOMED: 52966214 (2) Altered level of consciousness ICD Codes: R40.4 - Transient alteration of awareness SNOMED: 9645992 (3) Sepsis ICD Codes: A41.9 - Sepsis, unspecified organism SNOMED: 99345767 Qualifiers: Qualified Codes: A41.9 - Sepsis, unspecified organism (4) Left middle cerebral artery stroke ICD Codes: I63.512 - Cerebral infarction due to unspecified occlusion or stenosis of left middle cerebral artery SNOMED: 872002402 (5) Left carotid artery occlusion ICD Codes: I65.22 - Occlusion and stenosis of left carotid artery SNOMED: 920895267082686 (6) Hypernatremia Assessment & Plan: ok ICD Codes: E87.0 - Hyperosmolality and hypernatremia SNOMED: 566717207 (7) Hypokalemia Assessment & Plan: better ICD Codes: E87.6 - Hypokalemia SNOMED: 39560554 (8) DM (diabetes mellitus) ICD Codes: E11.9 - Type 2 diabetes mellitus without complications SNOMED: 63876323 (9) Pneumonia ICD Codes: J18.9 - Pneumonia, unspecified organism SNOMED: 329885739 Assessment/Plan: continue ASA Discussed with RN needs placement TF SSI cont Duoneb cont Zosyn Subjective Allergies: Coded Allergies: UNABLE TO ASSESS (Unverified , 06/18/19) Subjective In NAD Objective Last 24 Hour Vital Signs Date Time Temp Pulse Resp B/P (MAP) Pulse Ox O2 Delivery O2 Flow Rate FiO2 06/26/19 16:00 98.4 86 20 161/84 (109) 94 06/26/19 13:40 98.2 83 20 165/61 (95) 92 06/26/19 13:10 80 22 96 Room Air 21 84 22 94 06/26/19 12:30 98.2 83 20 172/56 (94) 92 06/26/19 12:11 173/56 06/26/19 12:00 83 06/26/19 09:35 98.4 83 20 150/71 (97) 93 06/26/19 09:00 Room Air Room Air 06/26/19 08:54 83 166/97 1/12/20 08:22 98.4 83 20 166/97 (120) 93 06/26/19 08:07 80 06/26/19 07:53 80 21 95 Room Air 21 79 21 95 06/26/19 06:20 141/69 06/26/19 04:00 80 06/26/19 04:00 97.5 80 20 141/69 (93) 96 06/26/19 00:44 188/100 06/26/19 00:32 180/100 06/26/19 00:22 50 18 97 Room Air 21 48 18 96 06/26/19 00:00 97.6 85 22 188/72 (110) 94 06/26/19 00:00 77 06/25/19 21:00 Room Air Room Air 06/25/19 20:33 50 20 96 Room Air 21 06/25/19 20:22 51 18 97 Room Air 21 50 18 96 06/25/19 20:00 79 06/25/19 20:00 97.5 81 20 153/58 (89) 94 06/25/19 17:41 172/111 06/25/19 17:20 97.5 65 22 158/57 (90) 93 Intake and Output 06/25/19 06/26/19 19:00 07:00 Intake Total 550 ml Balance 550 ml Tube Feeding 550 ml # Voids 5 2 # Bowel Movements 6 4 Laboratory Tests 06/26/19 07:10: White Blood Count 14.6H, Red Blood Count 5.59, Hemoglobin 17.8, Hematocrit 51.3 , Mean Corpuscular Volume 92, Mean Corpuscular Hemoglobin 31.8H, Mean Corpuscular Hemoglobin Concent 34.6, Red Cell Distribution Width 11.5L, Platelet Count 196, Mean Platelet Volume 9.3, Neutrophils (%) (Auto) 82.5H, Lymphocytes (%) (Auto) 9.2L, Monocytes (%) (Auto) 7.8, Eosinophils (%) (Auto) 0.1, Basophils (%) (Auto) 0.4, Sodium Level 151H, Potassium Level 3.9, Chloride Level 114H, Carbon Dioxide Level 24, Anion Gap 13, Blood Urea Nitrogen 38H, Creatinine 1.7H, Estimat Glomerular Filtration Rate , Glucose Level 189H, Calcium Level 8.2L Height (Feet): 5 Height (Inches): 8.00 Weight (Pounds): 166 Cardiovascular: normal rate Respiratory/Chest: rhonchi - bilaterally Edema: no edema noted Generalized Kaz Gilmore MD Jun 26, 2019 16:36
--- NOTE | 2019-06-26 19:35 | NUR ---
HAND-OFF: Report given to JUSTINO Chester. Plan of care endorsed.
--- NOTE | 2019-06-26 19:54 | NUR ---
NURSE NOTES: Called lab because pt is still pending rule out c-diff. Lab said they had not received it, will recollect and send TAHMINA.
[2019-06-27] VITALS (7 sets, daily range): BP systolic 151–177; BP diastolic 61–112
[2019-06-27] MEDS: HydrALAZINE 50mg tab NG PRN ×3 (00:21→18:04)
[2019-06-27] MEDS: NovoLOG Insulin Flexpen SUBQ SCH ×4 (00:22→18:47)
[2019-06-27] MEDS: Albuterol/Ipratropium 3ml neb HHN SCH ×4 (01:46→19:58)
[2019-06-27] MEDS: Acetaminophen 650mg/20.3ml NG PRN (04:34)
[2019-06-27] MEDS: Piperacillin/Tazobactam 3.375 GM in NS 110 ML IVPB SCH ×2 (06:04→14:37)
--- NOTE | 2019-06-27 07:30 | NUR ---
NURSE NOTES: Received report from Tanvi BADILLO. No active signs cardiac or respiratory distress. Non-verbal. Alert and disoriented. NG Tube noted to the right nares, secured running with Tube feeding with Glucerna 1.5 at 50mL/hr. Bilateral soft wrist restraints on intact and patent. Right upper arm 22G SL patent and asymptomatic. Side rails x3 up for safety. Bed in lowest position and locked. Call light within reach. bed alarm on. Will continue to plan of care.
--- NOTE | 2019-06-27 07:52 | NUR ---
HAND-OFF: Report given to JUSTINO Balbuena.
--- NOTE | 2019-06-27 11:27 | General Progress Note ---
Assessment/Plan Problem List: (1) Cellulitis of right hand ICD Codes: L03.113 - Cellulitis of right upper limb SNOMED: 10781999 (2) Altered level of consciousness ICD Codes: R40.4 - Transient alteration of awareness SNOMED: 8037899 (3) Sepsis ICD Codes: A41.9 - Sepsis, unspecified organism SNOMED: 95102631 Qualifiers: Qualified Codes: A41.9 - Sepsis, unspecified organism (4) Left middle cerebral artery stroke ICD Codes: I63.512 - Cerebral infarction due to unspecified occlusion or stenosis of left middle cerebral artery SNOMED: 490477503 (5) Left carotid artery occlusion ICD Codes: I65.22 - Occlusion and stenosis of left carotid artery SNOMED: 878842498486849 (6) Hypernatremia Assessment & Plan: ok ICD Codes: E87.0 - Hyperosmolality and hypernatremia SNOMED: 918031680 (7) Hypokalemia Assessment & Plan: better ICD Codes: E87.6 - Hypokalemia SNOMED: 89508958 (8) DM (diabetes mellitus) ICD Codes: E11.9 - Type 2 diabetes mellitus without complications SNOMED: 30293373 (9) Pneumonia ICD Codes: J18.9 - Pneumonia, unspecified organism SNOMED: 602933327 Assessment/Plan: continue ASA Discussed with RN needs placement TF SSI cont Duoneb cont Zosyn follow labs free water via NG Subjective Allergies: Coded Allergies: UNABLE TO ASSESS (Unverified , 06/18/19) Subjective In NAD Objective Last 24 Hour Vital Signs Date Time Temp Pulse Resp B/P (MAP) Pulse Ox O2 Delivery O2 Flow Rate FiO2 06/27/19 09:00 Room Air Room Air 06/27/19 08:44 88 151/112 06/27/19 08:00 97.1 88 20 151/112 (125) 99 06/27/19 08:00 85 06/27/19 07:48 95 Nasal Cannula 2.0 28 06/27/19 07:48 43 18 96 Nasal Cannula 2.0 28 42 18 95 06/27/19 06:05 179/94 06/27/19 05:49 165/79 06/27/19 05:04 99.0 06/27/19 05:04 101.5 06/27/19 04:20 101.1 77 29 160/77 (104) 94 06/27/19 04:07 77 06/27/19 01:46 88 18 98 Nasal Cannula 2.0 28 84 18 96 06/27/19 00:21 177/87 06/27/19 00:21 177/87 06/27/19 00:00 99.3 78 22 169/87 (114) 92 06/27/19 00:00 81 06/26/19 20:09 94 Nasal Cannula 2.0 28 06/26/19 20:00 81 06/26/19 20:00 98.8 78 22 163/75 (104) 92 06/26/19 20:00 84 18 96 Nasal Cannula 2.0 28 80 18 94 06/26/19 18:17 161/84 06/26/19 16:00 98.4 86 20 161/84 (109) 94 06/26/19 16:00 88 06/26/19 13:40 98.2 83 20 165/61 (95) 92 06/26/19 13:10 80 22 96 Room Air 21 84 22 94 06/26/19 12:30 98.2 83 20 172/56 (94) 92 06/26/19 12:11 173/56 06/26/19 12:00 83 Intake and Output 06/26/19 06/27/19 19:00 07:00 Intake Total 660 ml Balance 660 ml Free Water 60 ml Tube Feeding 600 ml # Voids 3 3 # Bowel Movements 4 Height (Feet): 5 Height (Inches): 8.00 Weight (Pounds): 166 Cardiovascular: normal rate Respiratory/Chest: rhonchi - bilaterally Edema: no edema noted Generalized Kaz Gilmore MD Jun 27, 2019 11:27
--- NOTE | 2019-06-27 14:23 | NUR ---
FOREIGN EXCHANGE DEALERDIRECTOR OF CORPORATE RESPONSIBILITY SI: HYPERNATREMIA,ACUTE STROKE T. 97.0 HR 83 RR 20 B/P 177/60 2L NC IS: ZOSYN IV ALB HHN ASA PO SWALLOW EVAL [facility] STATUS
--- NOTE | 2019-06-27 16:25 | NUR ---
WEEKLY SWALLOW/SPEECH THERAPY SUMMARY: PATIENT SEEN FOR DYSPHAGIA, SEE SWALLOW EVALUATION REPORT. PATIENT NOT ALERT ENOUGH FOR PO TRIAL TO SEE IF HE IS READY FOR A MODIFIED BARIUM SWALLOW STUDY (MBSS). PER RN, SARAH, THE PATIENT IS NOT ON SEDATING MEDS AND HE IS ALERT AT TIMES BUT DOES NOT UNDERSTAND HER WORDS. ASKED HER TO SHOW HIM WHAT SHE MEANS HE LIKELY HAS A SIGNIFICANT APHASIA S/P L CVA AND DOES NOT COMPREHEND. GOALS MET FOR STAFF EDUCATED/TRAINED IN ORAL CARE AND ASPIRATION PRECAUTIONS WITH NGT FEEDINGS RUNNING. PLAN: CONTINUE WITH PLAN OF CARE IN SWALLOWING EVALUATION REPORT CONTINUE TO MONITOR FOR READINESS FOR MBSS CONTINUE WITH NONORAL FEEDINGS AND ORAL CARE WILL ATTEMPT TO EVALUATE SPEECH AND LANGUAGE SKILLS WITH BORING MACHINE OPERATOR VERTICAL WHEN HE IS AWAKE.
--- NOTE | 2019-06-27 19:14 | NUR ---
HAND-OFF: Report given to aTnvi BADILLO. Pt remains stable.
--- NOTE | 2019-06-27 19:25 | NUR ---
NURSE NOTES: Received report from JUSTINO Balbuena. Patient in bed resting and remains oriented x 0-1 to name, arousable to shaking, occasionally name, but does not open eyes spontaneously. No active signs cardiac or respiratory distress. NG Tube noted to the right nares, secured on 2 L NC. Tube feeding, Glucerna 1.5 at goal of 50mL/hr, residual less than 10. Bilateral soft wrist restraints on, skin intact. IVF running as prescribed rate, 75 ml/h. Bed locked, in lowest position, side rails up x 2, head of bed up, call light within reach, bed alarm on, activated, will continue to monitor
[2019-06-28] VITALS: BP 170/79
[2019-06-28] MEDS: Piperacillin/Tazobactam 3.375 GM in NS 110 ML IVPB SCH ×3 (00:26→15:00)
[2019-06-28] MEDS: NovoLOG Insulin Flexpen SUBQ SCH ×4 (00:30→18:54)
--- NOTE | 2019-06-28 00:45 | Progress Note ---
DATE: 06/27/2019 SUBJECTIVE: The patient is calmer, stable. No agitation noted today. However, is still confused. He . The patient is calm. MENTAL STATUS EXAMINATION: The patient is alert, confused, disoriented. Mood is agitated at times. Affect is flat. Thought process, disorganized. Thought content, no suicidal or homicidal ideation. Cognition is impaired. Insight and judgment is fair. ASSESSMENT: Dementia with behavior disturbance. PLAN: Olanzapine 5 mg at bedtime, which will stimulate appetite as well. Jessica Quinonez M.D. DR: YSABEL JOB#: [id number] CC:
[2019-06-28] MEDS: Albuterol/Ipratropium 3ml neb HHN SCH ×4 (01:23→19:37)
[2019-06-28 04:00] VITALS: BP 152/77
[2019-06-28 07:12] LABS: BASOPHILS % (AUTO) 0.5 % (0.0-2.0); EOSINOPHILS % (AUTO) 0.1 % (0.0-3.0); HEMATOCRIT 46.6 % (42.0-52.0); HEMOGLOBIN 16.4 G/DL (14.2-18.0); LYMPHOCYTES % (AUTO) 10.6 % (20.0-45.0); MEAN CORPUSCULAR VOLUME 91 FL (80-99); MONOCYTES % (AUTO) 7.1 % (1.0-10.0); NEUTROPHILS % (AUTO) 81.7 % (45.0-75.0); PLATELET COUNT 253 K/UL (150-450); RED BLOOD COUNT 5.14 M/UL (4.70-6.10); RED CELL DISTRIBUTION WIDTH 10.3 % (11.6-14.8); WHITE BLOOD COUNT 16.4 K/UL (4.8-10.8)
[2019-06-28 07:49] VITALS: BP 150/77
[2019-06-28 07:58] LABS: ANION GAP 13 mmol/L (5-15); BLOOD UREA NITROGEN 49 mg/dL (7-18); CALCIUM 8.4 MG/DL (8.5-10.1); CARBON DIOXIDE 23 MMOL/L (21-32); CHLORIDE 121 MMOL/L (98-107); CREATININE 1.9 MG/DL (0.55-1.30); POTASSIUM 3.6 MMOL/L (3.5-5.1); SODIUM 157 MMOL/L (136-145)
--- NOTE | 2019-06-28 08:10 | NUR ---
HAND-OFF: Report given to JUSTINO Balbuena.
--- NOTE | 2019-06-28 08:35 | NUR ---
CASE MANAGEMENT:REVIEW 06/28/19 SI: LARGE ACUTE CVA. CAROTID VESSEL OCCLUSION 101.5 90 24 150/77 93% ON 2L/NC WBC+16.4 IS: IV ZOSYN Q8HRS DUONEB HHN Q6HRS RTC NORVASC NG QD ZYPREXA NG QHS CLONIDINE NG Q6HRS ASA NG QD : TELEMETRY STATUS PLAN: BLOOD CULTURE PT AND ST WHEN MORE ALERT PLAN: ?
--- NOTE | 2019-06-28 08:38 | Diagnostic Imaging Report ---
Indication: Post nasogastric tube placement Technique: Supine view of the abdomen Comparison: 06/22/2019 Findings: There is a nasogastric tube in place, tip of which projects at the expected level of the gastric antrum. Bowel gas pattern is unremarkable. There is no significant interim change Impression: Satisfactory nasogastric intubation
[2019-06-28 08:39] LABS: APPEARANCE,URINE CLEAR; BILIRUBIN, URINE NEGATIVE (NEGATIVE); GLUCOSE, URINE (UA) NEGATIVE (NEGATIVE); KETONES,URINE NEGATIVE (NEGATIVE); LEUKOCYTE ESTERASE ,URINE NEGATIVE (NEGATIVE); NITRITE,URINE NEGATIVE (NEGATIVE); PH,URINE 6.5 (4.5-8.0); PROTEIN,URINE 3+ (NEGATIVE); UROBILINOGEN,URINE 1 MG/DL (0.0-1.0)
[2019-06-28 08:51] LABS: COLOR,URINE YELLOW
--- NOTE | 2019-06-28 08:52 | NUR ---
NURSE NOTES: Received report from Nemo BADILLO. Pt om bed awake and disoriented and unable to follow the simple direction. Call light within easy reach. HOB elevated with 45 degree. Incotinent. Loose stools x2 reported from Night nurse. Side rilsx3 up for safety. IV site in right upper arm 22g SL patent and asymptomatic. NG tube advanced at 74-75cam. and noted Fever 101.5F Notified Aysha Yeager. Abd X-ray for NG tube placement and Urine Cx&US and Blood culture x2 ordered and read back the orderd. Will continue to plan of care.
--- NOTE | 2019-06-28 08:58 | NUR ---
NURSE NOTES: X-ray of abd came out and saying "satisfactory Nasogastric intubation". Will continue the NG tube feeding with current 74-75cm placement.
--- NOTE | 2019-06-28 09:02 | NUR ---
RADIOLOGY DEPT., ABDOMEN X-RAY FOR NGT PLCNV COMPLETED.-P.DYE
[2019-06-28] MEDS: Acetaminophen 650mg/20.3ml NG PRN (09:07)
--- NOTE | 2019-06-28 11:33 | NUR ---
RD ASSESSMENT & RECOMMENDATIONS SEE CARE ACTIVITY FOR COMPLETE ASSESSMENT DAILY ESTIMATED NEEDS: Needs based on sepsis 72kg adj 25-30 kcals/kg 8050-6072 total kcals 1-2 g protein/kg 72-144 g total protein 25-30 mL/kg 6495-2201 total fluid mLs NUTRITION DIAGNOSIS: * Swallowing difficulty R/T dysphagia, s/p new and old CVA as evidenced by NPO per CHIEF INVESTIGATOR rec, on NGT feeds at this time. * Altered nutrition related lab values r/t sepsis, DM, volume deficit as evidenced by elev WBC (16.4), elev POC glu (228 126 126 157 201) w/ A1C 6.9, elev Na (157) trend up, elev BUN (49) trend up, elev creat (1.9) trend up. CURRENT DIET: NPO CURRENT TF:Glucerna 1.5 @50ml/hr x24 hrs PO DIET RECOMMENDATIONS: WHEN SAFE FOR ORAL DIET-> LOW NA/ CCHO MED (texture per CHIEF INVESTIGATOR) ENTERAL NUTRITION RECOMMENDATIONS: Glucerna 1.5 @50ml/hr x24 hrs to provide 1200ml, 1800 kcal, 99g pro, 911ml free H2O - Maintain current TF - HOB over 30 degrees - H20 flush of 200ml q 4 hrs ADDITIONAL RECOMMENDATIONS: 1) Maintain calibrated bed scale wts 2) Monitor for readiness for PO diet, CHIEF INVESTIGATOR recommendation -> CHIEF INVESTIGATOR w/ rec to continue nonoral feeds at this time 3) INCREASE WATER FLUSHES -> see TF rec Na, BUN, and creat trending up 4) Consider long acting insulin for improved BG control 5) Add probiotics for diarrhea
--- NOTE | 2019-06-28 11:54 | Diagnostic Imaging Report ---
Indication: Shortness of breath Technique: One view of the chest Comparison: 06/25/2019 Findings: Patchy interstitial and airspace opacities appear increased on the right. More generalized interstitial prominence persists on the left, unchanged. The heart size is normal. The pleural spaces are grossly clear. Nasogastric tube again demonstrated. Calcifications in the left axilla are again demonstrated Impression: Bilateral parenchymal disease, as described, with patchy interstitial and airspace opacities increasing on the right since prior exam of 3 days earlier Other stable findings as noted
[2019-06-28 12:00] VITALS: BP 160/64
--- NOTE | 2019-06-28 14:06 | General Progress Note ---
Assessment/Plan Problem List: (1) Cellulitis of right hand ICD Codes: L03.113 - Cellulitis of right upper limb SNOMED: 77033917 (2) Altered level of consciousness ICD Codes: R40.4 - Transient alteration of awareness SNOMED: 5845232 (3) Sepsis ICD Codes: A41.9 - Sepsis, unspecified organism SNOMED: 49200650 Qualifiers: Qualified Codes: A41.9 - Sepsis, unspecified organism (4) Left middle cerebral artery stroke ICD Codes: I63.512 - Cerebral infarction due to unspecified occlusion or stenosis of left middle cerebral artery SNOMED: 819412583 (5) Left carotid artery occlusion ICD Codes: I65.22 - Occlusion and stenosis of left carotid artery SNOMED: 117674486723744 (6) Hypernatremia Assessment & Plan: ok ICD Codes: E87.0 - Hyperosmolality and hypernatremia SNOMED: 614190879 (7) Hypokalemia Assessment & Plan: better ICD Codes: E87.6 - Hypokalemia SNOMED: 74972484 (8) DM (diabetes mellitus) ICD Codes: E11.9 - Type 2 diabetes mellitus without complications SNOMED: 72794383 (9) Pneumonia ICD Codes: J18.9 - Pneumonia, unspecified organism SNOMED: 180396844 Assessment/Plan: continue ASA Discussed with RN needs placement TF SSI cont Duoneb cont Zosyn follow labs free water via NG Subjective Allergies: Coded Allergies: UNABLE TO ASSESS (Unverified , 06/18/19) Subjective In NAD Objective Last 24 Hour Vital Signs Date Time Temp Pulse Resp B/P (MAP) Pulse Ox O2 Delivery O2 Flow Rate FiO2 06/28/19 13:18 76 26 98 Nasal Cannula 2.0 28 83 26 96 06/28/19 12:58 160/64 06/28/19 12:00 98.2 84 22 160/64 (96) 93 06/28/19 09:37 101.0 06/28/19 09:07 90 150/77 06/28/19 09:00 Room Air Room Air 06/28/19 08:00 91 06/28/19 07:49 101.5 90 24 150/77 (101) 93 06/28/19 06:52 152/77 06/28/19 06:50 98 22 98 Nasal Cannula 2.0 28 90 16 95 06/28/19 06:49 95 Nasal Cannula 2.0 28 06/28/19 04:00 99.9 100 25 152/77 (102) 95 06/28/19 04:00 108 06/28/19 01:23 73 18 97 Nasal Cannula 2.0 28 68 18 94 06/28/19 00:26 153/85 06/28/19 00:00 99.5 89 25 170/79 (109) 95 06/28/19 00:00 86 06/27/19 20:01 93 Nasal Cannula 2.0 28 06/27/19 20:00 99.3 85 20 153/85 (107) 95 06/27/19 20:00 82 06/27/19 19:58 72 18 97 Nasal Cannula 2.0 28 70 18 93 06/27/19 18:21 177/95 06/27/19 18:04 177/95 06/27/19 16:00 97.6 82 22 177/95 (122) 96 06/27/19 16:00 80 Intake and Output 06/27/19 06/28/19 19:00 07:00 Intake Total 1050 ml Output Total 4 ml Balance 1050 ml -4 ml Free Water 500 ml Tube Feeding 550 ml Output Urine Total 3 ml Stool Total 1 ml # Voids 4 # Bowel Movements 3 Laboratory Tests 06/28/19 06:15: White Blood Count 16.4H, Red Blood Count 5.14, Hemoglobin 16.4, Hematocrit 46.6 , Mean Corpuscular Volume 91, Mean Corpuscular Hemoglobin 31.8H, Mean Corpuscular Hemoglobin Concent 35.1, Red Cell Distribution Width 10.3L, Platelet Count 253, Mean Platelet Volume 8.5, Neutrophils (%) (Auto) 81.7H, Lymphocytes (%) (Auto) 10.6L, Monocytes (%) (Auto) 7.1, Eosinophils (%) (Auto) 0.1, Basophils (%) (Auto) 0.5, Sodium Level 157H, Potassium Level 3.6, Chloride Level 121H, Carbon Dioxide Level 23, Anion Gap 13, Blood Urea Nitrogen 49H, Creatinine 1.9H, Estimat Glomerular Filtration Rate , Glucose Level 230H, Calcium Level 8.4L 06/28/19 08:05: Urine Color Yellow, Urine Appearance Clear, Urine pH 6.5, Urine Specific [place] 1.010, Urine Protein 3+H, Urine Glucose (UA) Negative, Urine Ketones Negative, Urine Blood 2+H, Urine Nitrite Negative, Urine Bilirubin Negative, Urine Urobilinogen 1H, Urine Leukocyte Esterase Negative, Urine RBC 20-30H, Urine WBC 0-2, Urine Squamous Epithelial Cells Occasional, Urine Bacteria Occasional Height (Feet): 5 Height (Inches): 8.00 Weight (Pounds): 166 Cardiovascular: normal rate Respiratory/Chest: rhonchi - bilaterally Edema: no edema noted Generalized Kaz Gilmore MD Jun 28, 2019 14:06
--- NOTE | 2019-06-28 15:00 | NUR ---
NURSE NOTES: Abd US done. Resumed the G-tube feeding.
--- NOTE | 2019-06-28 15:52 | NUR ---
ST NOTES: S: ALERT INCONSISTENTLY. WHEN ALERT, HE DOES NOT VISUALLY TRACK NOR ATTEND TO SPEAKER. HE DOES NOT FOLLOW COMMANDS EVEN WITH VISUAL CUES IN [place] (PER RN). O/A: ASSESS READINESS FOR MOD BARIUM SWALLOW STUDY PATIENT HAS SOB AND A RAPID RESP RATE 40 TO 44 (AT TIMES LOWER AT 22-26) EVEN AT REST WITH 2 LITERS 02 NC. DID NOT OPEN MOUTH NOR PROTRUDE TONGUE AND DOES NOT ALLOW ORAL CARE (TONGUE VERY DRY FROM MOUTH BREATHING). HE IS STILL NOT READY FOR PO INTAKE AND A MBSS AND HE WOULD BENEFIT FROM A LONGER TERM NONORAL FEEDINGS IF HIS FAMILY IN [place] ARE RECEPTIVE. EDUCATED/TRAINED RN MIN IN POSTED ASP PRECAUTIONS WITH FEEDING TUBE AND ORAL CARE IF HE ALLOWS. PLAN: CONTINUE WITH NONORAL (NGT) FEEDINGS AND CONSIDER LONGER TERM OPTIONS IF FAMILY IS RECEPTIVE. CONTINUE TO KEEP NPO AND COMPLETE ORAL CARE IF HE IS RECEPTIVE. CONTINUE TO MONITOR FOR VIDEO OR MOD BARIUM SWALLOW STUDY READINESS. CONTINUE TO MONITOR FOR COGNITIVE-LANGUAGE SKILLS IN [facility] WITH [facility] RN.
[2019-06-28 16:00] VITALS: BP 161/66
--- NOTE | 2019-06-28 16:31 | Diagnostic Imaging Report ---
Indication: Abdominal pain, abnormal renal function tests, history of gastrostomy Technique: Fair-scale and duplex images of the upper abdomen were obtained Comparison: none Findings: Gallbladder is unremarkable, without stones, wall thickening, nor pericholecystic fluid. Sonographic Nunez's sign is negative. Common bile duct measures for mm in diameter. No intrahepatic biliary ductal dilatation. Liver demonstrates normal echogenicity, no focal abnormality. Portal vein and hepatic veins are patent. Pancreas is unremarkable. Spleen is unremarkable. Left kidney measures 12.2 cm in length. Right kidney measures 11.3 cm length. Both kidneys demonstrate normal echogenicity. There is no hydronephrosis. There are small bilateral renal cysts. . Non-aneurysmal abdominal aorta . Impression: Essentially unremarkable exam. Negative for gallstones or dilated ducts Incidental finding small bilateral renal cysts
--- NOTE | 2019-06-28 17:00 | NUR ---
NURSE NOTES: Pt removed his NG tube. Bilateral soft restraints intact and patent. But he moved his head and neck and removed the NG tube.
--- NOTE | 2019-06-28 17:56 | NUR ---
NURSE NOTES: NG tube advanced at 70cm
--- NOTE | 2019-06-28 18:12 | Diagnostic Imaging Report ---
Indication: Nasogastric intubation Technique: XRAY Abdomen 1v Comparison: None Findings: Nasogastric tube terminates in the body the stomach. Bowel gas pattern is nonspecific but not overtly obstructive. There are degenerative changes in the spine. No acute osseous abnormality identified. Patchy airspace disease suggests in the bilateral lower lungs. Impression: NG tube terminates in the region of the gastric body. This corresponds with the statrad preliminary report.
--- NOTE | 2019-06-28 19:21 | NUR ---
HAND-OFF: Report given to Sydnee BADILLO. Pt remains stable.
--- NOTE | 2019-06-28 19:29 | NUR ---
NURSE NOTES: Received report from JUSTINO [place]. Patient is awake lying semi-perez's; restless and attempting to pull on devices. No signs of acute distress or pain noted at this time. AOx0; unable to make needs known. Checked IV site; patent and flushed. No erythema, bleeding, or infiltration noted. NG tube on left nare in place. Glucerna 1.5 running at 50 mls/hr. Condom catheter draining well to gravity. Bed at lowest position, brakes on, siderails up x3. Call light within reach. Will continue to monitor.
[2019-06-28 20:00] VITALS: BP 150/71
[2019-06-29] VITALS (7 sets, daily range): BP systolic 110–204; BP diastolic 72–108
[2019-06-29] MEDS: NovoLOG Insulin Flexpen SUBQ SCH ×5 (00:30→23:59)
[2019-06-29] MEDS: Albuterol/Ipratropium 3ml neb HHN SCH ×5 (00:30→20:36)
[2019-06-29] MEDS: Piperacillin/Tazobactam 3.375 GM in NS 110 ML IVPB SCH ×4 (00:31→22:55)
[2019-06-29] MEDS: Acetaminophen 650mg/20.3ml NG PRN (04:14)
[2019-06-29] MEDS: HydrALAZINE 50mg tab NG PRN ×2 (04:15→20:57)
--- NOTE | 2019-06-29 04:45 | Consultation ---
DATE OF CONSULTATION: 06/28/2019 INFECTIOUS DISEASE CONSULTATION CONSULTING PHYSICIAN: Bob Gilmore M.D. PRIMARY ATTENDING PHYSICIAN: Kaz Gilmore M.D. REASON FOR CONSULTATION: Sepsis, pneumonia, and cellulitis. HISTORY OF PRESENT ILLNESS: This is a 73-year-old male admitted on 06/18/2019 from home with altered mental status. At the time of admission, he had tachycardia of 110 and leukocytosis. He was suspected to have aspiration pneumonia and was started on antibiotics empirically. A CT scan of the head showed chronic infarct and encephalomalacia in right temporal lobe. The patient started to have fever since yesterday. PAST MEDICAL HISTORY: Hypertension, diabetes mellitus, likely previous CVA. ALLERGIES: No known drug allergy. MEDICATIONS: Linezolid, Tylenol, clotrimazole, insulin, Zosyn, albuterol and ipratropium inhaler, amlodipine, Zyprexa, clonidine, aspirin, hydralazine, magnesium hydroxide, Zofran, and temazepam. SOCIAL HISTORY: He lives alone. No history of alcohol, drug abuse, or smoking. No other history is obtainable. The patient is confused, in restraints. PHYSICAL EXAMINATION: VITAL SIGNS: Temperature 101.5, pulse 90, and blood pressure . GENERAL APPEARANCE: Seems to be well developed, has an NG tube. HEART: Normal rate. LUNGS: Clear. ABDOMEN: Soft, nontender. EXTREMITIES: Mild right hand edema. SKIN: mild erythema of right hand. NEUROLOGIC: Just opens eyes. Seems disoriented. LABORATORY DATA: WBC 16.4, hemoglobin 16.5, hematocrit 46.6, and platelets 253,000. Sodium 157, potassium 3.6, chloride 121, bicarb 20, BUN 49, and creatinine 1.9. Glucose 230. Urine toxicology at the time of admission was negative. Last chest x-ray on 06/25/2019 showed bibasilar opacities, may represent atelectasis versus pneumonia, pulmonary edema or pulmonary vascular congestion. He had a brain MRI that showed left internal carotid and left middle cerebral artery occlusion. IMPRESSION: Sepsis with fever and leukocytosis, may have aspiration pneumonia. He has nonpurulent cellulitis of the right hand. He has CVA and left middle cerebral artery territory with occlusion of left internal carotid artery and left middle cerebral artery. He has acute renal failure, diabetes mellitus, and hypertension. RECOMMENDATION: We will continue with Zosyn. We will add Zyvox. We will repeat chest x-ray with abdominal ultrasound. We will follow up the blood culture ordered today by primary doctor. At the end of my exam, I thank Dr. Kaz Gilmore for involving me in the care of this patient. Bob Gilmore M.D. DR: ARISTEO JOB#: [id number] CC: MELINDA
--- NOTE | 2019-06-29 04:55 | NUR ---
NURSE NOTES: Called Dr. Gilmore regarding patient's respirations of 32 and blood pressure of 204/72 and that Apresoline PRN and Tylenol PRN were already administered for high blood pressure and pain respectively. Awaiting callback.
--- NOTE | 2019-06-29 04:57 | NUR ---
NURSE NOTES: Received order from Dr. Gilmore to hold tube feeding, Lasix 40mg IV ONCE, and chest x-ray. Noted and carried out.
--- NOTE | 2019-06-29 07:21 | NUR ---
HAND-OFF: Report given to JUSTINO Crawford. Patient is asleep lying semi-perez's; resting comfortably. Left nare NG tube in place. On 2L nasal cannula. In stable condition.
--- NOTE | 2019-06-29 07:31 | NUR ---
NURSE NOTES: Received report from JUSTINO Randhawa. Patient in bed resting, no active s/s cardiac, respiratory distress noticed at this time. Patient AOx0, SB with HR 46. Endorsed last night BP elevated, Apresoline given, latest BP 140/74. IV on right wrist 22G, asymptomatic, patent, intact. NG tube on left nasal, endorsed per MD NPO at this time. Patient on bilateral soft wrist restraints, Cap refill <3 sec, able to move. Bed in lowest position, side rails upx3, call light within reach, bed alarm on. Will continue to monitor.
[2019-06-29 07:32] LABS: HEMATOCRIT 46.1 % (42.0-52.0); HEMOGLOBIN 15.8 G/DL (14.2-18.0); MEAN CORPUSCULAR VOLUME 92 FL (80-99); PLATELET COUNT 283 K/UL (150-450); RED CELL DISTRIBUTION WIDTH 11.3 % (11.6-14.8); WHITE BLOOD COUNT 15.6 K/UL (4.8-10.8)
[2019-06-29 07:33] LABS: ANION GAP 10 mmol/L (5-15); BLOOD UREA NITROGEN 45 mg/dL (7-18); CALCIUM 8.4 MG/DL (8.5-10.1); CARBON DIOXIDE 25 MMOL/L (21-32); CHLORIDE 124 MMOL/L (98-107); CREATININE 1.6 MG/DL (0.55-1.30); POTASSIUM 3.6 MMOL/L (3.5-5.1); SODIUM 159 MMOL/L (136-145)
--- NOTE | 2019-06-29 09:46 | NUR ---
CASE MANAGEMENT:REVIEW 06/29/19 SI: LARGE ACUTE CVA. CAROTID VESSEL OCCLUSION 97.9 55 24 152/77 95% ON 2L/NC WBC+15.6 NA+159 BUN+45 CR+1.6 IS: IV ZOSYN Q8HRS ZYVOX NG Q12 DUONEB HHN Q6HRS RTC NORVASC NG QD ZYPREXA NG QHS CLONIDINE NG Q6HRS ASA NG QD : TELEMETRY STATUS PLAN: BLOOD AND WOUND CULTURE PENDING SWALLOW EVAL ONCE MORE ALERT
--- NOTE | 2019-06-29 10:01 | Infectious Diseases Prog Note ---
Assessment/Plan Assessment/Plan IMPRESSION: Sepsis with fever and leukocytosis, Aspiration pneumonia. cellulitis of the right hand. 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 RECOMMENDATION: We will continue with Zosyn & Zyvox Will f/u cultures Subjective ROS Limited/Unobtainable: Yes Constitutional: Denies: fever Neurologic: Reports: confusion, other - on restraint Allergies: Coded Allergies: UNABLE TO ASSESS (Unverified , 06/18/19) Objective Vital Signs Last 24 Hour Vital Signs Date Time Temp Pulse Resp B/P (MAP) Pulse Ox O2 Delivery O2 Flow Rate FiO2 06/29/19 08:59 54 165/108 06/29/19 08:00 97.9 54 19 165/108 (127) 95 06/29/19 07:35 83 24 96 Nasal Cannula 2.0 28 24 06/29/19 07:35 96 Nasal Cannula 2.0 28 06/29/19 06:00 141/74 06/29/19 04:15 204/72 06/29/19 04:00 98.1 46 32 204/72 (116) 93 06/29/19 04:00 90 06/29/19 00:37 55 24 98 Nasal Cannula 2.0 28 57 24 95 06/29/19 00:00 89 06/29/19 00:00 152/77 06/29/19 00:00 97.9 44 24 152/77 (102) 93 06/28/19 21:00 Nasal Cannula 2.0 06/28/19 20:00 88 06/28/19 20:00 97.9 47 24 150/71 (97) 91 06/28/19 19:40 94 Nasal Cannula 2.0 28 06/28/19 19:40 77 24 97 Nasal Cannula 2.0 28 71 24 94 06/28/19 17:19 161/66 06/28/19 16:00 88 06/28/19 16:00 98.2 85 22 161/66 (97) 93 06/28/19 13:18 76 26 98 Nasal Cannula 2.0 28 83 26 96 06/28/19 12:58 160/64 06/28/19 12:00 90 06/28/19 12:00 98.2 84 22 160/64 (96) 93 Height (Feet): 5 Height (Inches): 8.00 Weight (Pounds): 154 HEENT: mucous membranes moist Respiratory/Chest: other - oxygen by nasal cannula, few rales Cardiovascular: bradycardia Abdomen: soft, non tender, other - NG tube Extremities: no edema Neurologic/Psychiatric: aphasia Microbiology Date/Time Source Procedure Growth Status 06/27/19 09:55 Stool Clostridium difficile Toxin Assay - Final Complete Laboratory Tests Test 06/29/19 05:30 06/29/19 06:55 Arterial Blood pH 7.429 (7.350-7.450) Arterial Blood Partial Pressure CO2 35.6 mmHg (35.0-45.0) Arterial Blood Partial Pressure O2 76.3 mmHg (75.0-100.0) Arterial Blood HCO3 23.0 mmol/L (22.0-26.0) Arterial Blood Oxygen Saturation 94.0 % (95-100) L Arterial Blood Base Excess -0.7 (-2-2) Michael Test Positive White Blood Count 15.6 K/UL (4.8-10.8) H Red Blood Count 5.00 M/UL (4.70-6.10) Hemoglobin 15.8 G/DL (14.2-18.0) Hematocrit 46.1 % (42.0-52.0) Mean Corpuscular Volume 92 FL (80-99) Mean Corpuscular Hemoglobin 31.7 PG (27.0-31.0) H Mean Corpuscular Hemoglobin Concent 34.3 G/DL (32.0-36.0) Red Cell Distribution Width 11.3 % (11.6-14.8) L Platelet Count 283 K/UL (150-450) Mean Platelet Volume 9.1 FL (6.5-10.1) Neutrophils (%) (Auto) % (45.0-75.0) Lymphocytes (%) (Auto) % (20.0-45.0) Monocytes (%) (Auto) % (1.0-10.0) Eosinophils (%) (Auto) % (0.0-3.0) Basophils (%) (Auto) % (0.0-2.0) Neutrophils % (Manual) Pending Lymphocytes % (Manual) Pending Platelet Estimate Pending Platelet Morphology Pending Sodium Level 159 MMOL/L (136-145) H Potassium Level 3.6 MMOL/L (3.5-5.1) Chloride Level 124 MMOL/L (98-107) H Carbon Dioxide Level 25 MMOL/L (21-32) Anion Gap 10 mmol/L (5-15) Blood Urea Nitrogen 45 mg/dL (7-18) H Creatinine 1.6 MG/DL (0.55-1.30) H Estimat Glomerular Filtration Rate mL/min (>60) Glucose Level 219 MG/DL (74-106) H Calcium Level 8.4 MG/DL (8.5-10.1) L Current Medications Medications (Trade) Dose Ordered Sig/Leonor Route PRN Reason Start Time Stop Time Status Last Admin Dose Admin Acetaminophen (Tylenol) 650 mg Q4H PRN NG Mild Pain/Temp > 100.5 06/28/19 08:00 07/28/19 07:59 06/29/19 04:14 Albuterol/ Ipratropium (Albuterol/ Ipratropium) 3 ml Q6HRT HHN 06/25/19 13:30 06/30/19 13:29 06/29/19 07:39 Amlodipine Besylate (Norvasc) 10 mg DAILY NG 06/25/19 13:30 07/25/19 13:29 06/29/19 08:59 Aspirin (ASA) 325 mg DAILY NG 06/22/19 09:00 07/20/19 21:44 06/29/19 08:59 Clonidine HCl (Catapres Tab) 0.1 mg EVERY 6 HOURS ORAL 06/23/19 13:45 07/23/19 13:44 06/28/19 17:19 Clotrimazole (Lotrimin) 1 applic THREE TIMES A DAY TOPIC 06/27/19 15:00 07/04/19 14:59 06/29/19 09:05 Dextrose (Dextrose 50%) 25 ml Q30M PRN IV Hypoglycemia 06/21/19 18:30 07/18/19 12:29 Dextrose (Dextrose 50%) 50 ml Q30M PRN IV Hypoglycemia 06/21/19 18:30 07/18/19 12:29 Hydralazine HCl (Apresoline) 50 mg Q6H PRN NG For High Blood Pressure 06/21/19 18:15 07/21/19 18:14 06/29/19 04:15 Insulin Aspart (NovoLOG) EVERY 6 HOURS SUBQ 06/25/19 18:00 07/19/19 16:59 06/29/19 06:16 Linezolid (Zyvox) 600 mg EVERY 12 HOURS NG 06/28/19 09:45 07/03/19 09:44 06/29/19 08:59 Magnesium Hydroxide (Mom) 30 ml HSPRN PRN NG Constipation 06/21/19 18:15 07/21/19 18:14 Olanzapine (ZyPREXA) 5 mg BEDTIME ORAL 06/24/19 21:00 07/24/19 20:59 06/28/19 21:17 Ondansetron HCl (Zofran) 4 mg Q6H PRN IVP Nausea & Vomiting 06/21/19 18:15 07/21/19 18:14 Piperacillin Sod/ Tazobactam Sod 3.375 gm/Sodium Chloride 110 ml @ 27.5 mls/hr Q8H IVPB 06/25/19 15:00 07/02/19 14:59 06/29/19 06:18 Bob Gilmore MD Jun 29, 2019 10:00
--- NOTE | 2019-06-29 10:09 | NUR ---
RADIOLOGY DEPT, CHEST X-RAY DONE.-P.DYE
--- NOTE | 2019-06-29 11:41 | NUR ---
ST NOTE SWALLOW STATUS: PATIENT NOT READY FOR PO TRIALS NOR MOD BARIUM SWALLOW STUDY (MBSS). POOR SOLAR ENERGY SPECIALIST TO ORAL CARE AND PO TRIALS. TENDS TO SQUEEZE HIS LIPS CLOSED. DETACHER ONLY ABLE TO GET TOOTHETTE IN FRONT OF HIS TEETH TO CLEAN. PATIENT HAS PERMANENT TEETH WITH SOME MISSING. EDUCATED/TRAINED RN (RADHA) AND MAURY (BRANDY) IN POSTED ORAL CARE/SUCTION PRN AND ASPIRATION PRECAUTIONS WHEN NGT FEEDINGS ARE RUNNING. LEFT MESSAGE WITH DR LY ABOUT POSSIBLE NEED FOR PEG AT THIS TIME SINCE PATIENT IS 2 WEEKS S/P PO INTAKE AND STILL NOT READY FOR PO. FAMILY IN [place] AND NO CONTACT INFORMATION IN THE CHART. SPEECH/LANGUAGE/COGNITIVE STATUS: COMPLETE EVAL WHEN CLERK AVAILABLE. NO [facility] CLERK AVAILABLE AND PT CANNOT USE THE [employer] PHONE. THE PATIENT IS MORE AWAKE AND HE LOOKS AT THE SPEAKER ON HIS LEFT BUT NOT MIDLINE AND TO THE RIGHT. HE DOES NOT ATTEMPT TO IMITATE VOWELS/WORDS/ORAL MOVEMENTS (EVEN IN [facility] PER RN). PLAN: CONTINUE WITH PLAN OF CARE IN SWALLOW EVALUATION REPORT MONITOR FOR MBSS OR VIDEO READINESS LIKELY AFTER PEG (IF PLACED) CONTINUE WITH NGT NONORAL FEEDINGS, CONSIDER GI CONSULT REGARDING PEG IF FAMILY RECEPTIVE. CONTINUE WITH ORAL CARE/SUCTION PRN AND IF PATIENT IS RECEPTIVE. LEFT MESSAGE WITH DR. Aysha LY ABOUT NEED FOR GI CONSULT AND PEG, HE AGREED.
--- NOTE | 2019-06-29 13:39 | Diagnostic Imaging Report ---
Indication: Dyspnea Technique: XRAY Chest 1v Comparison: 06/28/2019 Findings: Heart size and mediastinal contours are stable. Enteric tube stable in position, coursing below level of diaphragms. Again the tip is beyond the inferior margin of the film. Patchy interstitial opacities persist and are slightly increased compared to the prior exam. More dense retrocardiac opacities are noted with air bronchograms. There is no radiographically appreciable pleural effusion or pneumothorax. Osseous structures demonstrate no acute abnormality. There are atherosclerotic gastric calcifications. Impression: Bilateral predominantly interstitial opacities slightly increased compared to one day prior. Increasing dense retrocardiac opacities with air bronchograms. Stable positioning of NG tube.
--- NOTE | 2019-06-29 14:26 | Consultation ---
History of Present Illness General Date patient seen: Jun 29, 2019 Time patient seen: 14:18 Chief Complaint: Respiratory distress Reason for Consultation: Respiratory distress Present Illness HPI 73 y/o male admitted 06/18 with AMS and found with Acute CVA with development of worsening respiratory status. Noted increase in leukcytosis and increased bibasilar pulmonary infiltrates. He has an NG tube in place and has not been safe for swallow eval. There is concern for an aspiration event. He has been started on antibiotics, remains tacypneic. No further history available from patient and no family at bedside. Allergies: Coded Allergies: UNABLE TO ASSESS (Unverified , 06/18/19) Medication History Unable to Obtain Active Prescriptions or Reported Meds Patient History Limited by: language barrier, medical condition History Provided By: Medical Record Healthcare decision maker SELF Resuscitation status Full Code Advanced Directive on File No Past Medical/Surgical History Past Medical/Surgical History: (1) DM (diabetes mellitus) Review of Systems ROS Narrative Unable to obtain due to patient factors Physical Exam General Appearance: mild distress HEENT: other - NG tube Neck: normal alignment, supple, normal inspection Respiratory/Chest: other - coarse breath sounds Cardiovascular/Chest: regular rhythm Abdomen: non tender, soft Extremities: no edema Skin Exam: normal pigmentation Last 24 Hour Vital Signs Date Time Temp Pulse Resp B/P (MAP) Pulse Ox O2 Delivery O2 Flow Rate FiO2 06/29/19 14:04 160/91 06/29/19 13:40 83 22 94 Nasal Cannula 2.0 28 81 22 90 06/29/19 08:59 54 165/108 06/29/19 08:00 97.9 54 19 165/108 (127) 95 06/29/19 07:35 83 24 96 Nasal Cannula 2.0 28 24 06/29/19 07:35 96 Nasal Cannula 2.0 28 06/29/19 06:00 141/74 06/29/19 04:15 204/72 06/29/19 04:00 98.1 46 32 204/72 (116) 93 06/29/19 04:00 90 06/29/19 00:37 55 24 98 Nasal Cannula 2.0 28 57 24 95 06/29/19 00:00 89 06/29/19 00:00 152/77 06/29/19 00:00 97.9 44 24 152/77 (102) 93 06/28/19 21:00 Nasal Cannula 2.0 06/28/19 20:00 88 06/28/19 20:00 97.9 47 24 150/71 (97) 91 06/28/19 19:40 94 Nasal Cannula 2.0 28 06/28/19 19:40 77 24 97 Nasal Cannula 2.0 28 71 24 94 06/28/19 17:19 161/66 06/28/19 16:00 88 06/28/19 16:00 98.2 85 22 161/66 (97) 93 Intake and Output 06/28/19 06/29/19 19:00 07:00 Intake Total 700 ml 1479.3 ml Balance 700 ml 1479.3 ml Free Water 500 ml 750 ml IV Total 129.3 ml Tube Feeding 200 ml 600 ml # Voids 2 # Bowel Movements 2 Laboratory Tests Test 06/29/19 05:30 06/29/19 06:55 Arterial Blood pH 7.429 (7.350-7.450) Arterial Blood Partial Pressure CO2 35.6 mmHg (35.0-45.0) Arterial Blood Partial Pressure O2 76.3 mmHg (75.0-100.0) Arterial Blood HCO3 23.0 mmol/L (22.0-26.0) Arterial Blood Oxygen Saturation 94.0 % (95-100) L Arterial Blood Base Excess -0.7 (-2-2) Michael Test Positive White Blood Count 15.6 K/UL (4.8-10.8) H Red Blood Count 5.00 M/UL (4.70-6.10) Hemoglobin 15.8 G/DL (14.2-18.0) Hematocrit 46.1 % (42.0-52.0) Mean Corpuscular Volume 92 FL (80-99) Mean Corpuscular Hemoglobin 31.7 PG (27.0-31.0) H Mean Corpuscular Hemoglobin Concent 34.3 G/DL (32.0-36.0) Red Cell Distribution Width 11.3 % (11.6-14.8) L Platelet Count 283 K/UL (150-450) Mean Platelet Volume 9.1 FL (6.5-10.1) Neutrophils (%) (Auto) % (45.0-75.0) Lymphocytes (%) (Auto) % (20.0-45.0) Monocytes (%) (Auto) % (1.0-10.0) Eosinophils (%) (Auto) % (0.0-3.0) Basophils (%) (Auto) % (0.0-2.0) Differential Total Cells Counted 100 Neutrophils % (Manual) 71 % (45-75) Lymphocytes % (Manual) 17 % (20-45) L Monocytes % (Manual) 10 % (1-10) Eosinophils % (Manual) 2 % (0-3) Basophils % (Manual) 0 % (0-2) Band Neutrophils 0 % (0-8) Platelet Estimate Adequate Platelet Morphology Normal Sodium Level 159 MMOL/L (136-145) H Potassium Level 3.6 MMOL/L (3.5-5.1) Chloride Level 124 MMOL/L (98-107) H Carbon Dioxide Level 25 MMOL/L (21-32) Anion Gap 10 mmol/L (5-15) Blood Urea Nitrogen 45 mg/dL (7-18) H Creatinine 1.6 MG/DL (0.55-1.30) H Estimat Glomerular Filtration Rate mL/min (>60) Glucose Level 219 MG/DL (74-106) H Calcium Level 8.4 MG/DL (8.5-10.1) L Height (Feet): 5 Height (Inches): 8.00 Weight (Pounds): 154 Medications Current Medications Medications (Trade) Dose Ordered Sig/Leonor Route PRN Reason Start Time Stop Time Status Last Admin Dose Admin Acetaminophen (Tylenol) 650 mg Q4H PRN NG Mild Pain/Temp > 100.5 06/28/19 08:00 07/28/19 07:59 06/29/19 04:14 Albuterol/ Ipratropium (Albuterol/ Ipratropium) 3 ml Q6HRT HHN 06/25/19 13:30 06/30/19 13:29 06/29/19 13:39 Amlodipine Besylate (Norvasc) 10 mg DAILY NG 06/25/19 13:30 07/25/19 13:29 06/29/19 08:59 Aspirin (ASA) 325 mg DAILY NG 06/22/19 09:00 07/20/19 21:44 06/29/19 08:59 Clonidine HCl (Catapres Tab) 0.1 mg EVERY 6 HOURS ORAL 06/23/19 13:45 07/23/19 13:44 06/29/19 14:04 Clotrimazole (Lotrimin) 1 applic THREE TIMES A DAY TOPIC 06/27/19 15:00 07/04/19 14:59 06/29/19 13:33 Dextrose (Dextrose 50%) 25 ml Q30M PRN IV Hypoglycemia 06/21/19 18:30 07/18/19 12:29 Dextrose (Dextrose 50%) 50 ml Q30M PRN IV Hypoglycemia 06/21/19 18:30 07/18/19 12:29 Hydralazine HCl (Apresoline) 50 mg Q6H PRN NG For High Blood Pressure 06/21/19 18:15 07/21/19 18:14 06/29/19 04:15 Insulin Aspart (NovoLOG) EVERY 6 HOURS SUBQ 06/25/19 18:00 07/19/19 16:59 06/29/19 06:16 Linezolid (Zyvox) 600 mg EVERY 12 HOURS NG 06/28/19 09:45 07/03/19 09:44 06/29/19 08:59 Loperamide HCl (Imodium) 2 mg Q6H PRN NG Diarrhea 06/29/19 11:00 07/29/19 10:59 Magnesium Hydroxide (Mom) 30 ml HSPRN PRN NG Constipation 06/21/19 18:15 07/21/19 18:14 Olanzapine (ZyPREXA) 5 mg BEDTIME ORAL 06/24/19 21:00 07/24/19 20:59 06/28/19 21:17 Ondansetron HCl (Zofran) 4 mg Q6H PRN IVP Nausea & Vomiting 06/21/19 18:15 07/21/19 18:14 Piperacillin Sod/ Tazobactam Sod 3.375 gm/Sodium Chloride 110 ml @ 27.5 mls/hr Q8H IVPB 06/25/19 15:00 07/02/19 14:59 06/29/19 14:05 Assessment/Plan Assessment/Plan: Problem List: * Respiratory distress/insufficiency * Bibasilar pulmonary infiltrates - likely aspiration pneumonia * Altered mental status * Acute CVA * DM Plan: * Monitor respiratory status, ABG reviewed, paradoxical breathing motion should hopefully improve with improved infection * Abx per ID * Concern about aspiration of oral secretions, would not pursue swallow eval for the moment * NGT in place * Deni Leary MD Jun 29, 2019 14:26
--- NOTE | 2019-06-29 14:31 | General Progress Note ---
Assessment/Plan Problem List: (1) Cellulitis of right hand ICD Codes: L03.113 - Cellulitis of right upper limb SNOMED: 60897236 (2) Altered level of consciousness ICD Codes: R40.4 - Transient alteration of awareness SNOMED: 8022586 (3) Sepsis ICD Codes: A41.9 - Sepsis, unspecified organism SNOMED: 68918357 Qualifiers: Qualified Codes: A41.9 - Sepsis, unspecified organism (4) Left middle cerebral artery stroke ICD Codes: I63.512 - Cerebral infarction due to unspecified occlusion or stenosis of left middle cerebral artery SNOMED: 318653660 (5) Left carotid artery occlusion ICD Codes: I65.22 - Occlusion and stenosis of left carotid artery SNOMED: 480835939943287 (6) Hypernatremia Assessment & Plan: ok ICD Codes: E87.0 - Hyperosmolality and hypernatremia SNOMED: 235016446 (7) Hypokalemia Assessment & Plan: better ICD Codes: E87.6 - Hypokalemia SNOMED: 65395577 (8) DM (diabetes mellitus) ICD Codes: E11.9 - Type 2 diabetes mellitus without complications SNOMED: 90633183 (9) Pneumonia ICD Codes: J18.9 - Pneumonia, unspecified organism SNOMED: 648267697 Assessment/Plan: continue ASA Discussed with RN start D5W TF SSI cont Duoneb cont abxs follow labs Subjective Allergies: Coded Allergies: UNABLE TO ASSESS (Unverified , 06/18/19) Subjective In NAD Objective Last 24 Hour Vital Signs Date Time Temp Pulse Resp B/P (MAP) Pulse Ox O2 Delivery O2 Flow Rate FiO2 06/29/19 14:04 160/91 06/29/19 13:40 83 22 94 Nasal Cannula 2.0 28 81 22 90 06/29/19 08:59 54 165/108 06/29/19 08:00 97.9 54 19 165/108 (127) 95 06/29/19 07:35 83 24 96 Nasal Cannula 2.0 28 24 06/29/19 07:35 96 Nasal Cannula 2.0 28 06/29/19 06:00 141/74 06/29/19 04:15 204/72 06/29/19 04:00 98.1 46 32 204/72 (116) 93 06/29/19 04:00 90 06/29/19 00:37 55 24 98 Nasal Cannula 2.0 28 57 24 95 06/29/19 00:00 89 06/29/19 00:00 152/77 06/29/19 00:00 97.9 44 24 152/77 (102) 93 06/28/19 21:00 Nasal Cannula 2.0 06/28/19 20:00 88 06/28/19 20:00 97.9 47 24 150/71 (97) 91 06/28/19 19:40 94 Nasal Cannula 2.0 28 06/28/19 19:40 77 24 97 Nasal Cannula 2.0 28 71 24 94 06/28/19 17:19 161/66 06/28/19 16:00 88 06/28/19 16:00 98.2 85 22 161/66 (97) 93 Intake and Output 06/28/19 06/29/19 19:00 07:00 Intake Total 700 ml 1479.3 ml Balance 700 ml 1479.3 ml Free Water 500 ml 750 ml IV Total 129.3 ml Tube Feeding 200 ml 600 ml # Voids 2 # Bowel Movements 2 Laboratory Tests 06/29/19 05:30: Arterial Blood pH 7.429, Arterial Blood Partial Pressure CO2 35.6, Arterial Blood Partial Pressure O2 76.3, Arterial Blood HCO3 23.0, Arterial Blood Oxygen Saturation 94.0L, Arterial Blood Base Excess -0.7, Michael Test Positive 06/29/19 06:55: White Blood Count 15.6H, Red Blood Count 5.00, Hemoglobin 15.8, Hematocrit 46.1 , Mean Corpuscular Volume 92, Mean Corpuscular Hemoglobin 31.7H, Mean Corpuscular Hemoglobin Concent 34.3, Red Cell Distribution Width 11.3L, Platelet Count 283, Mean Platelet Volume 9.1, Neutrophils (%) (Auto) , Lymphocytes (%) (Auto) , Monocytes (%) (Auto) , Eosinophils (%) (Auto) , Basophils (%) (Auto) , Differential Total Cells Counted 100, Neutrophils % ( Manual) 71, Lymphocytes % (Manual) 17L, Monocytes % (Manual) 10, Eosinophils % ( Manual) 2, Basophils % (Manual) 0, Band Neutrophils 0, Platelet Estimate Adequate, Platelet Morphology Normal, Sodium Level 159H, Potassium Level 3.6, Chloride Level 124H, Carbon Dioxide Level 25, Anion Gap 10, Blood Urea Nitrogen 45H, Creatinine 1.6H, Estimat Glomerular Filtration Rate , Glucose Level 219H, Calcium Level 8.4L Height (Feet): 5 Height (Inches): 8.00 Weight (Pounds): 154 Cardiovascular: normal rate Respiratory/Chest: rhonchi - bilaterally Edema: no edema noted Generalized Kaz Gilmore MD Jun 29, 2019 14:31
--- NOTE | 2019-06-29 18:50 | NUR ---
HAND-OFF: Report given to JUSTINO Carmen.
--- NOTE | 2019-06-29 19:30 | NUR ---
NURSE NOTES: Received patient from [facility]. Patient in bed, non verbal, unable to assess orientation. When asked if he knows where he is, patient shook his head no, when asked his name, patient did not respond. NG tube intact, at 70cm. 10ml of residual, on glucerna 1.5 at 30ml/hr. Will continue to monitor and increase as tolerated to a goal of 50ml/hr. HOB elevated 45 degrees. D5W infusing at 100ml/hr via right wrist 22 gauge, no signs of infiltration. Bilateral wrist restraints on. No signs of skin breakdown. Patient observed trying to pull NG tube when restraints were taken off during linen change. Bed in low position, locked, bed alarm on, call light within reach.
--- NOTE | 2019-06-29 20:13 | Cardiology Progress Note ---
Assessment/Plan Assessment/Plan echo trop ekg will follow [id number] Objective Last 24 Hour Vital Signs Date Time Temp Pulse Resp B/P (MAP) Pulse Ox O2 Delivery O2 Flow Rate FiO2 06/29/19 17:04 110/60 06/29/19 16:00 100 06/29/19 16:00 98.6 96 19 110/91 (97) 95 06/29/19 14:04 160/91 06/29/19 13:40 83 22 94 Nasal Cannula 2.0 28 81 22 90 06/29/19 13:39 92 24 99 Nasal Cannula 2.0 28 85 18 96 06/29/19 12:00 92 06/29/19 12:00 97.2 58 19 160/91 (114) 95 06/29/19 09:00 Nasal Cannula 2.0 06/29/19 08:59 54 165/108 06/29/19 08:00 97.9 54 19 165/108 (127) 95 06/29/19 08:00 99 06/29/19 07:35 88 24 99 Nasal Cannula 2.0 28 83 24 96 06/29/19 07:35 96 Nasal Cannula 2.0 28 06/29/19 06:00 141/74 06/29/19 04:15 204/72 06/29/19 04:00 98.1 46 32 204/72 (116) 93 06/29/19 04:00 90 06/29/19 00:37 55 24 98 Nasal Cannula 2.0 28 57 24 95 06/29/19 00:00 89 06/29/19 00:00 152/77 06/29/19 00:00 97.9 44 24 152/77 (102) 93 06/28/19 21:00 Nasal Cannula 2.0 Intake and Output 06/28/19 06/29/19 19:00 07:00 Intake Total 700 ml 1479.3 ml Balance 700 ml 1479.3 ml Free Water 500 ml 750 ml IV Total 129.3 ml Tube Feeding 200 ml 600 ml # Voids 2 # Bowel Movements 2 Laboratory Tests Test 06/29/19 05:30 06/29/19 06:55 Arterial Blood pH 7.429 (7.350-7.450) Arterial Blood Partial Pressure CO2 35.6 mmHg (35.0-45.0) Arterial Blood Partial Pressure O2 76.3 mmHg (75.0-100.0) Arterial Blood HCO3 23.0 mmol/L (22.0-26.0) Arterial Blood Oxygen Saturation 94.0 % (95-100) L Arterial Blood Base Excess -0.7 (-2-2) Michael Test Positive White Blood Count 15.6 K/UL (4.8-10.8) H Red Blood Count 5.00 M/UL (4.70-6.10) Hemoglobin 15.8 G/DL (14.2-18.0) Hematocrit 46.1 % (42.0-52.0) Mean Corpuscular Volume 92 FL (80-99) Mean Corpuscular Hemoglobin 31.7 PG (27.0-31.0) H Mean Corpuscular Hemoglobin Concent 34.3 G/DL (32.0-36.0) Red Cell Distribution Width 11.3 % (11.6-14.8) L Platelet Count 283 K/UL (150-450) Mean Platelet Volume 9.1 FL (6.5-10.1) Neutrophils (%) (Auto) % (45.0-75.0) Lymphocytes (%) (Auto) % (20.0-45.0) Monocytes (%) (Auto) % (1.0-10.0) Eosinophils (%) (Auto) % (0.0-3.0) Basophils (%) (Auto) % (0.0-2.0) Differential Total Cells Counted 100 Neutrophils % (Manual) 71 % (45-75) Lymphocytes % (Manual) 17 % (20-45) L Monocytes % (Manual) 10 % (1-10) Eosinophils % (Manual) 2 % (0-3) Basophils % (Manual) 0 % (0-2) Band Neutrophils 0 % (0-8) Platelet Estimate Adequate Platelet Morphology Normal Sodium Level 159 MMOL/L (136-145) H Potassium Level 3.6 MMOL/L (3.5-5.1) Chloride Level 124 MMOL/L (98-107) H Carbon Dioxide Level 25 MMOL/L (21-32) Anion Gap 10 mmol/L (5-15) Blood Urea Nitrogen 45 mg/dL (7-18) H Creatinine 1.6 MG/DL (0.55-1.30) H Estimat Glomerular Filtration Rate mL/min (>60) Glucose Level 219 MG/DL (74-106) H Calcium Level 8.4 MG/DL (8.5-10.1) L Microbiology Date/Time Source Procedure Growth Status 06/27/19 09:55 Stool Clostridium difficile Toxin Assay - Final Complete Chris Melgar MD Jun 29, 2019 20:13
--- NOTE | 2019-06-29 23:45 | Consultation ---
DATE OF CONSULTATION: 06/29/2019 CARDIOLOGY CONSULTATION CONSULTING PHYSICIAN: Chris Melgar M.D. REFERRING PHYSICIAN: Kaz Gilmore M.D. REASON FOR CONSULTATION: Arrhythmias. HISTORY OF PRESENT ILLNESS: This is a middle aged gentleman who is not able to provide any meaningful history whatsoever. The patient has been admitted on 06/20/2019 originally found down by the paramedics and has been diagnosed with a cerebrovascular accident and has had problems with his respiration, leukocytosis, and pulmonary infiltrate on the chest x-ray that was performed. He has been having some ventricular arrhythmias consistent with PVCs and this consultation is requested. The patient himself is not able to provide any meaningful history whatsoever. Information of the chart that was obtained indicate medical problems really unknown. ALLERGIES: Unable to assess. SOCIAL HISTORY: Unable to assess. REVIEW OF SYSTEMS: Unable to obtain. PHYSICAL EXAMINATION: GENERAL: Shows to be elderly the gentleman. He is somewhat agitated in soft restraints. NECK: Supple. NG tube is in place. LUNGS: Minimal crackles noted at the bases. CARDIAC: Regular rate and rhythm. No heaves or thrills. ABDOMEN: Soft, nontender. Positive bowel sounds. EXTREMITIES: There is no edema. NEUROLOGICAL: He is noncommunicative or responsive. LABORATORY AND DIAGNOSTIC DATA: White count of 15.6, hemoglobin , platelet count 283. Sodium is 159, potassium 3.6, chloride 124, bicarb 25, BUN 45, creatinine 1.6, glucose of 219, and calcium is 8.3. INR is 1 at the time of admission. PTT is normal. Tox screen initially on presentation was negative. Urinalysis 20 to 30 rbc's and 0 to 2 wbc's. He did have a CT scan of his head originally that showed no acute intracranial hemorrhages, chronic infarction, encephalomalacia anterior right lobe. He has had an MRI of his brain performed that showed large left middle cerebral artery infarct most probably related to left internal carotid artery and left middle cerebral artery occlusion disease. Right frontal fossa arachnoid cyst. Chest x-ray that was performed showing bilateral interstitial opacities slightly increased. Telemetry shows sinus with PVCs. EKG at the time of presentation, sinus with premature ventricular complexes were documented. The patient with an NG tube in place. ASSESSMENT AND PLAN: 1. Respiratory insufficiency. 2. Cerebrovascular accident. 3. Premature ventricular complexes. 4. Interstitial infiltrates. 5. Altered mentation. 6. CVA. 7. Hypernatremia. 8. Renal insufficiency. This patient was seen in cardiac consultation. Unfortunately, lack of history and information from the patient makes evaluation difficult. Nevertheless he is certainly at risk for aspiration. He has an NG tube in place. An echocardiogram will be ordered. Repeat EKG and cardiac enzymes will also be ordered. The patient will be observed on telemetry. In light of the bilateral interstitial disease, a natriuretic peptide will be ordered as well to further evaluate. He does have a component of renal insufficiency. His sodium is already elevated. In light of the CVA, the concern is possibility of diabetes insipidus, which will be left for the expertise of Dr. Gilmore. The patient has already been seen by area coordinator as well. Chris Melgar M.D. DR: CHRISTINE JOB#: [id number] CC:
[2019-06-30] VITALS (9 sets, daily range): BP systolic 131–180; BP diastolic 54–90
[2019-06-30] MEDS: Albuterol/Ipratropium 3ml neb HHN SCH ×3 (01:44→11:55)
[2019-06-30] MEDS: Piperacillin/Tazobactam 3.375 GM in NS 110 ML IVPB SCH ×3 (06:26→23:09)
[2019-06-30] MEDS: NovoLOG Insulin Flexpen SUBQ SCH ×3 (06:43→17:26)
[2019-06-30 07:09] LABS: BASOPHILS % (AUTO) 0.6 % (0.0-2.0); EOSINOPHILS % (AUTO) 1.1 % (0.0-3.0); HEMATOCRIT 46.7 % (42.0-52.0); MEAN CORPUSCULAR VOLUME 93 FL (80-99); MONOCYTES % (AUTO) 8.2 % (1.0-10.0); NEUTROPHILS % (AUTO) 76.2 % (45.0-75.0); PLATELET COUNT 349 K/UL (150-450); RED BLOOD COUNT 5.04 M/UL (4.70-6.10); RED CELL DISTRIBUTION WIDTH 11.6 % (11.6-14.8)
[2019-06-30 07:41] LABS: ANION GAP 12 mmol/L (5-15); BLOOD UREA NITROGEN 53 mg/dL (7-18); CALCIUM 8.6 MG/DL (8.5-10.1); CARBON DIOXIDE 25 MMOL/L (21-32); CHLORIDE 120 MMOL/L (98-107); CREATININE 1.8 MG/DL (0.55-1.30); POTASSIUM 3.7 MMOL/L (3.5-5.1); SODIUM 156 MMOL/L (136-145)
[2019-06-30 08:12] LABS: CREATINE KINASE 328 U/L (26-308)
--- NOTE | 2019-06-30 08:51 | Pulmonology Progress Note ---
Assessment/Plan Assessment/Plan Problem List: * Respiratory distress/insufficiency * Bibasilar pulmonary infiltrates - likely aspiration pneumonia * Altered mental status * Acute CVA * DM Plan: * Monitor respiratory status, ABG reviewed, paradoxical breathing motion persists but improved * Abx per ID * Concern about aspiration of oral secretions, would not pursue swallow eval for the moment * NGT in place * Duonebs Subjective ROS Limited/Unobtainable: Yes Interval Events: No acute events. Breathing improved. No fevers Allergies: Coded Allergies: UNABLE TO ASSESS (Unverified , 06/18/19) Objective Last 24 Hour Vital Signs Date Time Temp Pulse Resp B/P (MAP) Pulse Ox O2 Delivery O2 Flow Rate FiO2 06/30/19 07:26 88 20 99 Nasal Cannula 2.0 28 83 20 95 06/30/19 07:26 95 Nasal Cannula 2.0 28 06/30/19 06:37 180/68 06/30/19 06:28 180/68 (105) 06/30/19 04:00 88 06/30/19 04:00 98.4 85 24 151/86 (107) 91 06/30/19 01:52 91 18 95 Nasal Cannula 2.0 28 85 18 92 06/30/19 00:00 97.7 86 24 146/85 (105) 97 06/30/19 00:00 86 06/30/19 00:00 146/85 06/29/19 23:02 96 150/75 (100) 95 06/29/19 21:00 Nasal Cannula 2.0 06/29/19 20:57 163/82 06/29/19 20:00 93 Nasal Cannula 2.0 28 06/29/19 20:00 98.1 87 24 163/82 (109) 92 46 06/29/19 20:00 89 18 97 Nasal Cannula 2.0 28 86 18 93 06/29/19 20:00 87 06/29/19 17:04 110/60 06/29/19 16:00 100 06/29/19 16:00 98.6 96 19 110/91 (97) 95 06/29/19 14:04 160/91 06/29/19 13:40 83 22 94 Nasal Cannula 2.0 28 81 22 90 06/29/19 13:39 92 24 99 Nasal Cannula 2.0 28 85 18 96 06/29/19 12:00 92 06/29/19 12:00 97.2 58 19 160/91 (114) 95 06/29/19 09:00 Nasal Cannula 2.0 06/29/19 08:59 54 165/108 Intake and Output 06/29/19 06/30/19 19:00 07:00 Output Total 400 ml 200 ml Balance -400 ml -200 ml Output Urine Total 400 ml 200 ml # Voids 3 # Bowel Movements 2 General Appearance: no acute distress HEENT: mucous membranes moist Respiratory/Chest: crackles/rales Cardiovascular: normal rate Abdomen: soft, non tender Extremities: no edema Microbiology Date/Time Source Procedure Growth Status 06/28/19 08:50 Blood Blood Culture - Preliminary NO GROWTH AFTER 24 HOURS Resulted 06/28/19 08:45 Blood Blood Culture - Preliminary NO GROWTH AFTER 24 HOURS Resulted 06/27/19 09:55 Stool Clostridium difficile Toxin Assay - Final Complete Laboratory Tests 06/30/19 06:00: White Blood Count 15.0H, Red Blood Count 5.04, Hemoglobin 16.0, Hematocrit 46.7 , Mean Corpuscular Volume 93, Mean Corpuscular Hemoglobin 31.8H, Mean Corpuscular Hemoglobin Concent 34.4, Red Cell Distribution Width 11.6, Platelet Count 349, Mean Platelet Volume 8.3, Neutrophils (%) (Auto) 76.2H, Lymphocytes ( %) (Auto) 14.0L, Monocytes (%) (Auto) 8.2, Eosinophils (%) (Auto) 1.1, Basophils (%) (Auto) 0.6, Sodium Level 156H, Potassium Level 3.7, Chloride Level 120H, Carbon Dioxide Level 25, Anion Gap 12, Blood Urea Nitrogen 53H, Creatinine 1.8H, Estimat Glomerular Filtration Rate , Glucose Level 238H, Calcium Level 8.6, Total Creatine Kinase 328H, Troponin I 0.124H, Pro-B-Type Natriuretic Peptide 610H Current Medications Medications (Trade) Dose Ordered Sig/Leonor Route PRN Reason Start Time Stop Time Status Last Admin Dose Admin Acetaminophen (Tylenol) 650 mg Q4H PRN NG Mild Pain/Temp > 100.5 06/28/19 08:00 07/28/19 07:59 06/29/19 04:14 Albuterol/ Ipratropium (Albuterol/ Ipratropium) 3 ml Q6HRT HHN 06/25/19 13:30 06/30/19 13:29 06/30/19 07:26 Amlodipine Besylate (Norvasc) 10 mg DAILY NG 06/25/19 13:30 07/25/19 13:29 06/29/19 08:59 Aspirin (ASA) 325 mg DAILY NG 06/22/19 09:00 07/20/19 21:44 06/29/19 08:59 Clonidine HCl (Catapres Tab) 0.1 mg EVERY 6 HOURS ORAL 06/23/19 13:45 07/23/19 13:44 06/30/19 06:37 Clotrimazole (Lotrimin) 1 applic THREE TIMES A DAY TOPIC 06/27/19 15:00 07/04/19 14:59 06/29/19 17:09 Dextrose 1,000 ml @ 100 mls/hr Q10H IV 06/29/19 14:30 07/29/19 14:29 06/30/19 00:05 Dextrose (Dextrose 50%) 25 ml Q30M PRN IV Hypoglycemia 06/21/19 18:30 07/18/19 12:29 Dextrose (Dextrose 50%) 50 ml Q30M PRN IV Hypoglycemia 06/21/19 18:30 07/18/19 12:29 Hydralazine HCl (Apresoline) 50 mg Q6H PRN NG For High Blood Pressure 06/21/19 18:15 07/21/19 18:14 06/29/19 20:57 Insulin Aspart (NovoLOG) EVERY 6 HOURS SUBQ 06/25/19 18:00 07/19/19 16:59 06/30/19 06:43 Linezolid (Zyvox) 600 mg EVERY 12 HOURS NG 06/28/19 09:45 07/03/19 09:44 06/29/19 20:57 Loperamide HCl (Imodium) 2 mg Q6H PRN NG Diarrhea 06/29/19 11:00 07/29/19 10:59 Magnesium Hydroxide (Mom) 30 ml HSPRN PRN NG Constipation 06/21/19 18:15 07/21/19 18:14 Olanzapine (ZyPREXA) 5 mg BEDTIME ORAL 06/24/19 21:00 07/24/19 20:59 06/29/19 20:57 Ondansetron HCl (Zofran) 4 mg Q6H PRN IVP Nausea & Vomiting 06/21/19 18:15 07/21/19 18:14 Piperacillin Sod/ Tazobactam Sod 3.375 gm/Sodium Chloride 110 ml @ 27.5 mls/hr Q8H IVPB 06/25/19 15:00 07/02/19 14:59 06/30/19 06:26 Deni Borges MD Jun 30, 2019 08:51
--- NOTE | 2019-06-30 10:22 | NUR ---
troponin 0.124 HCP9) made aware
--- NOTE | 2019-06-30 10:55 | Infectious Diseases Prog Note ---
Assessment/Plan Assessment/Plan IMPRESSION: Sepsis with fever and leukocytosis, Aspiration pneumonia. cellulitis of the right hand. 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 RECOMMENDATION: We will continue with Zosyn & Zyvox Will f/u cultures Subjective ROS Limited/Unobtainable: Yes Constitutional: Denies: fever Neurologic: Reports: confusion, other - on restraint Allergies: Coded Allergies: UNABLE TO ASSESS (Unverified , 06/18/19) Objective Vital Signs Last 24 Hour Vital Signs Date Time Temp Pulse Resp B/P (MAP) Pulse Ox O2 Delivery O2 Flow Rate FiO2 06/30/19 09:03 88 139/84 06/30/19 09:00 Nasal Cannula 2.0 06/30/19 08:00 97.9 20 139/84 (102) 91 06/30/19 08:00 95 06/30/19 07:26 88 20 99 Nasal Cannula 2.0 28 83 20 95 06/30/19 07:26 95 Nasal Cannula 2.0 28 06/30/19 06:37 180/68 06/30/19 06:28 180/68 (105) 06/30/19 04:00 88 06/30/19 04:00 98.4 85 24 151/86 (107) 91 06/30/19 01:52 91 18 95 Nasal Cannula 2.0 28 85 18 92 06/30/19 00:00 97.7 86 24 146/85 (105) 97 06/30/19 00:00 86 06/30/19 00:00 146/85 06/29/19 23:02 96 150/75 (100) 95 06/29/19 21:00 Nasal Cannula 2.0 06/29/19 20:57 163/82 06/29/19 20:00 93 Nasal Cannula 2.0 28 06/29/19 20:00 98.1 87 24 163/82 (109) 92 46 06/29/19 20:00 89 18 97 Nasal Cannula 2.0 28 86 18 93 06/29/19 20:00 87 06/29/19 17:04 110/60 06/29/19 16:00 100 06/29/19 16:00 98.6 96 19 110/91 (97) 95 06/29/19 14:04 160/91 1/15/20 13:40 83 22 94 Nasal Cannula 2.0 28 81 22 90 06/29/19 13:39 92 24 99 Nasal Cannula 2.0 28 85 18 96 06/29/19 12:00 92 06/29/19 12:00 97.2 58 19 160/91 (114) 95 Height (Feet): 5 Height (Inches): 8.00 Weight (Pounds): 154 General Appearance: no acute distress HEENT: mucous membranes moist Respiratory/Chest: crackles/rales Cardiovascular: normal rate Abdomen: soft, non tender, other - NG tube Extremities: no edema Neurologic/Psychiatric: alert, disoriented Microbiology Date/Time Source Procedure Growth Status 06/28/19 08:50 Blood Blood Culture - Preliminary NO GROWTH AFTER 24 HOURS Resulted 06/28/19 08:45 Blood Blood Culture - Preliminary NO GROWTH AFTER 24 HOURS Resulted Laboratory Tests Test 06/30/19 06:00 White Blood Count 15.0 K/UL (4.8-10.8) H Red Blood Count 5.04 M/UL (4.70-6.10) Hemoglobin 16.0 G/DL (14.2-18.0) Hematocrit 46.7 % (42.0-52.0) Mean Corpuscular Volume 93 FL (80-99) Mean Corpuscular Hemoglobin 31.8 PG (27.0-31.0) H Mean Corpuscular Hemoglobin Concent 34.4 G/DL (32.0-36.0) Red Cell Distribution Width 11.6 % (11.6-14.8) Platelet Count 349 K/UL (150-450) Mean Platelet Volume 8.3 FL (6.5-10.1) Neutrophils (%) (Auto) 76.2 % (45.0-75.0) H Lymphocytes (%) (Auto) 14.0 % (20.0-45.0) L Monocytes (%) (Auto) 8.2 % (1.0-10.0) Eosinophils (%) (Auto) 1.1 % (0.0-3.0) Basophils (%) (Auto) 0.6 % (0.0-2.0) Sodium Level 156 MMOL/L (136-145) H Potassium Level 3.7 MMOL/L (3.5-5.1) Chloride Level 120 MMOL/L (98-107) H Carbon Dioxide Level 25 MMOL/L (21-32) Anion Gap 12 mmol/L (5-15) Blood Urea Nitrogen 53 mg/dL (7-18) H Creatinine 1.8 MG/DL (0.55-1.30) H Estimat Glomerular Filtration Rate mL/min (>60) Glucose Level 238 MG/DL (74-106) H Calcium Level 8.6 MG/DL (8.5-10.1) Total Creatine Kinase 328 U/L (26-308) H Troponin I 0.124 ng/mL (0.000-0.056) Pro-B-Type Natriuretic Peptide 610 pg/mL (0-125) H Current Medications Medications (Trade) Dose Ordered Sig/Leonor Route PRN Reason Start Time Stop Time Status Last Admin Dose Admin Acetaminophen (Tylenol) 650 mg Q4H PRN NG Mild Pain/Temp > 100.5 06/28/19 08:00 07/28/19 07:59 06/29/19 04:14 Albuterol/ Ipratropium (Albuterol/ Ipratropium) 3 ml Q6HRT HHN 06/25/19 13:30 06/30/19 13:29 06/30/19 07:26 Amlodipine Besylate (Norvasc) 10 mg DAILY NG 06/25/19 13:30 07/25/19 13:29 06/30/19 09:03 Aspirin (ASA) 325 mg DAILY NG 06/22/19 09:00 07/20/19 21:44 06/30/19 09:03 Clonidine HCl (Catapres Tab) 0.1 mg EVERY 6 HOURS ORAL 06/23/19 13:45 07/23/19 13:44 06/30/19 06:37 Clotrimazole (Lotrimin) 1 applic THREE TIMES A DAY TOPIC 06/27/19 15:00 07/04/19 14:59 06/30/19 09:03 Dextrose 1,000 ml @ 100 mls/hr Q10H IV 06/29/19 14:30 07/29/19 14:29 06/30/19 09:05 Dextrose (Dextrose 50%) 25 ml Q30M PRN IV Hypoglycemia 06/21/19 18:30 07/18/19 12:29 Dextrose (Dextrose 50%) 50 ml Q30M PRN IV Hypoglycemia 06/21/19 18:30 2/3/20 12:29 Hydralazine HCl (Apresoline) 50 mg Q6H PRN NG For High Blood Pressure 06/21/19 18:15 07/21/19 18:14 06/29/19 20:57 Insulin Aspart (NovoLOG) EVERY 6 HOURS SUBQ 06/25/19 18:00 07/19/19 16:59 06/30/19 06:43 Linezolid (Zyvox) 600 mg EVERY 12 HOURS NG 06/28/19 09:45 07/03/19 09:44 06/30/19 09:03 Loperamide HCl (Imodium) 2 mg Q6H PRN NG Diarrhea 06/29/19 11:00 07/29/19 10:59 Magnesium Hydroxide (Mom) 30 ml HSPRN PRN NG Constipation 06/21/19 18:15 07/21/19 18:14 Olanzapine (ZyPREXA) 5 mg BEDTIME ORAL 06/24/19 21:00 07/24/19 20:59 06/29/19 20:57 Ondansetron HCl (Zofran) 4 mg Q6H PRN IVP Nausea & Vomiting 06/21/19 18:15 07/21/19 18:14 Piperacillin Sod/ Tazobactam Sod 3.375 gm/Sodium Chloride 110 ml @ 27.5 mls/hr Q8H IVPB 06/25/19 15:00 07/02/19 14:59 06/30/19 06:26 Bob Gilmore MD Jun 30, 2019 10:55
--- NOTE | 2019-06-30 11:50 | General Progress Note ---
Assessment/Plan Problem List: (1) Cellulitis of right hand ICD Codes: L03.113 - Cellulitis of right upper limb SNOMED: 96959938 (2) Altered level of consciousness ICD Codes: R40.4 - Transient alteration of awareness SNOMED: 8536140 (3) Sepsis ICD Codes: A41.9 - Sepsis, unspecified organism SNOMED: 79335029 Qualifiers: Qualified Codes: A41.9 - Sepsis, unspecified organism (4) Left middle cerebral artery stroke ICD Codes: I63.512 - Cerebral infarction due to unspecified occlusion or stenosis of left middle cerebral artery SNOMED: 538492017 (5) Left carotid artery occlusion ICD Codes: I65.22 - Occlusion and stenosis of left carotid artery SNOMED: 656078115148408 (6) Hypernatremia Assessment & Plan: better ICD Codes: E87.0 - Hyperosmolality and hypernatremia SNOMED: 069072721 (7) Hypokalemia Assessment & Plan: better ICD Codes: E87.6 - Hypokalemia SNOMED: 96732220 (8) DM (diabetes mellitus) ICD Codes: E11.9 - Type 2 diabetes mellitus without complications SNOMED: 09193048 (9) Pneumonia ICD Codes: J18.9 - Pneumonia, unspecified organism SNOMED: 996103173 (10) ARF (acute renal failure) Assessment & Plan: no change ICD Codes: N17.9 - Acute kidney failure, unspecified SNOMED: 02400443 Assessment/Plan: continue ASA Discussed with RN reduce D5W NPO SSI cont Duoneb cont abxs follow labs GT by Dr Lee Subjective Allergies: Coded Allergies: UNABLE TO ASSESS (Unverified , 06/18/19) Subjective pulled NG Objective Last 24 Hour Vital Signs Date Time Temp Pulse Resp B/P (MAP) Pulse Ox O2 Delivery O2 Flow Rate FiO2 06/30/19 09:03 88 139/84 06/30/19 09:00 Nasal Cannula 2.0 06/30/19 08:00 97.9 20 139/84 (102) 91 06/30/19 08:00 95 06/30/19 07:26 88 20 99 Nasal Cannula 2.0 28 83 20 95 06/30/19 07:26 95 Nasal Cannula 2.0 28 06/30/19 06:37 180/68 06/30/19 06:28 180/68 (105) 06/30/19 04:00 88 06/30/19 04:00 98.4 85 24 151/86 (107) 91 06/30/19 01:52 91 18 95 Nasal Cannula 2.0 28 85 18 92 06/30/19 00:00 97.7 86 24 146/85 (105) 97 06/30/19 00:00 86 06/30/19 00:00 146/85 06/29/19 23:02 96 150/75 (100) 95 06/29/19 21:00 Nasal Cannula 2.0 06/29/19 20:57 163/82 06/29/19 20:00 93 Nasal Cannula 2.0 28 06/29/19 20:00 98.1 87 24 163/82 (109) 92 46 06/29/19 20:00 89 18 97 Nasal Cannula 2.0 28 86 18 93 06/29/19 20:00 87 06/29/19 17:04 110/60 06/29/19 16:00 100 06/29/19 16:00 98.6 96 19 110/91 (97) 95 06/29/19 14:04 160/91 06/29/19 13:40 83 22 94 Nasal Cannula 2.0 28 81 22 90 06/29/19 13:39 92 24 99 Nasal Cannula 2.0 28 85 18 96 06/29/19 12:00 92 06/29/19 12:00 97.2 58 19 160/91 (114) 95 Intake and Output 06/29/19 06/30/19 19:00 07:00 Output Total 400 ml 200 ml Balance -400 ml -200 ml Output Urine Total 400 ml 200 ml # Voids 3 # Bowel Movements 2 Laboratory Tests 06/30/19 06:00: White Blood Count 15.0H, Red Blood Count 5.04, Hemoglobin 16.0, Hematocrit 46.7 , Mean Corpuscular Volume 93, Mean Corpuscular Hemoglobin 31.8H, Mean Corpuscular Hemoglobin Concent 34.4, Red Cell Distribution Width 11.6, Platelet Count 349, Mean Platelet Volume 8.3, Neutrophils (%) (Auto) 76.2H, Lymphocytes ( %) (Auto) 14.0L, Monocytes (%) (Auto) 8.2, Eosinophils (%) (Auto) 1.1, Basophils (%) (Auto) 0.6, Sodium Level 156H, Potassium Level 3.7, Chloride Level 120H, Carbon Dioxide Level 25, Anion Gap 12, Blood Urea Nitrogen 53H, Creatinine 1.8H, Estimat Glomerular Filtration Rate , Glucose Level 238H, Calcium Level 8.6, Total Creatine Kinase 328H, Troponin I 0.124H, Pro-B-Type Natriuretic Peptide 610H Height (Feet): 5 Height (Inches): 8.00 Weight (Pounds): 154 Cardiovascular: normal rate Respiratory/Chest: rhonchi - bilaterally Edema: no edema noted Generalized Kaz Gilmore MD Jun 30, 2019 11:50
--- NOTE | 2019-06-30 15:06 | NUR ---
CASE MANAGEMENT:REVIEW 06/30/19 SI: LARGE ACUTE CVA. CAROTID VESSEL OCCLUSION 97.9 89 18 154/84 96% on 2l/nc WBC+15.0 NA+156 BUN+53 CR+1.8 TROPONIN(+) 0.124 IS: IV ZOSYN Q8HRS ZYVOX NG Q12 DUONEB HHN Q6HRS RTC NORVASC NG QD ZYPREXA NG QHS CLONIDINE NG Q6HRS ASA NG QD : TELEMETRY STATUS PLAN: BLOOD AND WOUND CULTURE PENDING SWALLOW EVAL ONCE MORE ALERT
--- NOTE | 2019-06-30 15:51 | NUR ---
EMPLOYMENT SERVICES DIRECTOR PROGRESS NOTE LUAN attempted to call pt's possible sister Un Cece Holm's numbers stated on previous note. Calls were not answered. LUAN is unable to locate the family at this time. Signed: 06/30/19 at 1553 by TRISH ROLAND <Co-Signature Required>
--- NOTE | 2019-06-30 19:30 | NUR ---
NURSE NOTES: Received patient from Domingo BADILLO. Patient in bed, on 2L NC, no signs of respiratory distress. HOB elevated 45 degrees. Right wrist 22 gauge piv intact, patent, no signs of infiltration, on D5W at 75ml/hr. Bilateral wrist restraints on, patient restless, pulling on restraints. No skin breakdown or trauma. NG tube is out per day shift, PEG placement in AM, will hold oral medications. Patient is NPO. Bed in low position, locked, bed alarm on, call light within reach.
--- NOTE | 2019-06-30 19:35 | NUR ---
HAND-OFF: Report given to JUSTINO Kearney.
--- NOTE | 2019-06-30 20:25 | NUR ---
NURSE NOTES: Unable to administer oral meds because NGT out, notified Dr. Melgar that patient has BP meds. Received orders for Nitro bid 1inch q6 hours and hydralazine 10mg ivp q4hrs prn sbp>150.
--- NOTE | 2019-06-30 20:45 | NUR ---
NURSE NOTES: Hydralazine 10mg IVP administered for BP of 154/86.
--- NOTE | 2019-06-30 21:44 | General Progress Note ---
Assessment/Plan Assessment/Plan: GI CONSULT Assessment Full note dictated Unable to locate any family or next of kin. I even looked at [facility] database and asked BOTTOM [employer]ESSER to check as well. Patient with CVA. Obtunded and unable to eat. NGT fell out today. Given stroke and dysphagia, patient needs to undergo PEG placement on urgent basis to avoid malnutrition and to avoid repeated ENT trauma by NGT re insertions Above discussed with Dr. Gilmore who is in agreement Will place PEG with 2 MD consent in am Barb Lee MD Subjective Allergies: Coded Allergies: UNABLE TO ASSESS (Unverified , 06/18/19) Objective Last 24 Hour Vital Signs Date Time Temp Pulse Resp B/P (MAP) Pulse Ox O2 Delivery O2 Flow Rate FiO2 06/30/19 20:44 154/86 06/30/19 20:00 96.9 75 18 154/86 (108) 97 06/30/19 19:53 94 Nasal Cannula 2.0 28 06/30/19 16:00 74 06/30/19 16:00 97.9 78 22 131/69 (89) 94 06/30/19 12:03 89 18 98 Nasal Cannula 2.0 28 88 18 96 06/30/19 12:00 79 06/30/19 12:00 97.9 20 154/84 (107) 91 06/30/19 09:03 88 139/84 06/30/19 09:00 Nasal Cannula 2.0 06/30/19 08:00 97.9 20 139/84 (102) 91 06/30/19 08:00 95 06/30/19 07:26 88 20 99 Nasal Cannula 2.0 28 83 20 95 06/30/19 07:26 95 Nasal Cannula 2.0 28 06/30/19 06:37 180/68 06/30/19 06:28 180/68 (105) 06/30/19 04:00 88 06/30/19 04:00 98.4 85 24 151/86 (107) 91 06/30/19 01:52 91 18 95 Nasal Cannula 2.0 28 85 18 92 06/30/19 00:00 97.7 86 24 146/85 (105) 97 06/30/19 00:00 86 06/30/19 00:00 146/85 06/29/19 23:02 96 150/75 (100) 95 Intake and Output 06/29/19 06/30/19 19:00 07:00 Output Total 400 ml 200 ml Balance -400 ml -200 ml Output Urine Total 400 ml 200 ml # Voids 3 # Bowel Movements 2 Laboratory Tests 06/30/19 06:00: White Blood Count 15.0H, Red Blood Count 5.04, Hemoglobin 16.0, Hematocrit 46.7 , Mean Corpuscular Volume 93, Mean Corpuscular Hemoglobin 31.8H, Mean Corpuscular Hemoglobin Concent 34.4, Red Cell Distribution Width 11.6, Platelet Count 349, Mean Platelet Volume 8.3, Neutrophils (%) (Auto) 76.2H, Lymphocytes ( %) (Auto) 14.0L, Monocytes (%) (Auto) 8.2, Eosinophils (%) (Auto) 1.1, Basophils (%) (Auto) 0.6, Sodium Level 156H, Potassium Level 3.7, Chloride Level 120H, Carbon Dioxide Level 25, Anion Gap 12, Blood Urea Nitrogen 53H, Creatinine 1.8H, Estimat Glomerular Filtration Rate , Glucose Level 238H, Calcium Level 8.6, Total Creatine Kinase 328H, Troponin I 0.124H, Pro-B-Type Natriuretic Peptide 610H Height (Feet): 5 Height (Inches): 8.00 Weight (Pounds): 154 Barb Lee MD Jun 30, 2019 21:44
[2019-07-01] VITALS (8 sets, daily range): BP systolic 116–147; BP diastolic 69–81
[2019-07-01] MEDS: Nitroglycerin 2% oint pkt TOPIC SCH ×5 (00:32→23:53)
--- NOTE | 2019-07-01 00:44 | Consultation ---
Consult Note Assessment/Plan I certify that patient will need a G Tube to maintain life. No family is available to sign the consent form. Kaz Horowitz MD, MD Jul 01, 2019 00:44
[2019-07-01] MEDS: NovoLOG Insulin Flexpen SUBQ SCH ×5 (05:50→23:56)
--- NOTE | 2019-07-01 06:00 | Consultation ---
DATE OF CONSULTATION: 06/30/2019 GASTROENTEROLOGY CONSULTATION CHIEF COMPLAINT: I was asked to see this patient by Dr. Kaz Gilmore for gastrostomy tube placement. HISTORY OF PRESENT ILLNESS: This is a patient, who is a [place] man, who was admitted to the hospital when he was found down by the paramedics. He was diagnosed with acute stroke and has been seen by multiple consultants. He is now woken up and he is obtunded. He has not been able to eat by mouth, and a nasogastric tube was placed as his temporary tube feeding fell out. Search of the family has been made both by me and the manager social media and I even looked at another hospital's data just to see if there is any information on this patient there, but no family or other next of kin is available. At the same time, the patient is obtunded and has stroke, it has been felt not ready for po intake for any time in the near future. A gastrostomy tube was, therefore, suggested to be placed on an urgent basis to avoid further malnutrition and repeated insertions of nasogastric tube. The above urgency was discussed with the patient's physician, Dr. Gilmore, who is in agreement. PAST MEDICAL HISTORY: History of stroke as described above. ALLERGIES: Unable to evaluate. SOCIAL HISTORY: Unobtainable. REVIEW OF SYSTEMS: Unobtainable. MEDICATIONS: See the chart list for details. PHYSICAL EXAMINATION: GENERAL: An elderly man, seen in his room. He is obtunded. HEENT: Normocephalic and atraumatic. NECK: Supple. CHEST: Clear to auscultation. CARDIOVASCULAR: Revealed a regular rate. ABDOMEN: Soft and flat. EXTREMITIES: Revealed no edema. NEUROLOGIC: Notable for stroke and obtundation. LABORATORY DATA: Noted. ASSESSMENT: This patient has acute stroke and is obtunded and is not able to eat by mouth. A gastrostomy tube is needed in the foreseeable future for long-term enteral access and feeding. There is no family available and the patient's procedure is needed urgently to prevent further nutritional compromise, repeated insertions, and nasopharyngeal trauma. The patient will, therefore, undergo this procedure tomorrow with 2-physician consent. RECOMMENDATIONS: 1. Keep the patient NPO. 2. IV fluids. 3. Gastrostomy tube placement tomorrow. Thank you for asking me to participate in the care of this patient. Barb Lee M.D. DR: VONDA JOB#: [id number] CC: MELINDA
[2019-07-01] MEDS: Piperacillin/Tazobactam 3.375 GM in NS 110 ML IVPB SCH ×3 (06:02→22:40)
--- NOTE | 2019-07-01 06:53 | NUR ---
NURSE NOTES: Informed by GI laborer sawmill that patient will have PEG placement this AM. Notified Dr. Lee requesting off tele order. GI checklist completed.
[2019-07-01] MEDS ORDERED: Propofol 200mg/20ml IV ONE (07:00)
[2019-07-01] MEDS ORDERED: Lidocaine 1% MPF 10mg/ml 5ml ONE (07:00)
--- NOTE | 2019-07-01 07:00 | Progress Note ---
DATE: 06/30/2019 SUBJECTIVE: The patient is in bed, no acute distress noted, and has NG tube. placement. He has not been eating. MENTAL STATUS EXAMINATION: The patient is alert, disoriented. Mood is neutral to agitation. Affect is flat. Thought process, there is a paucity of thought content. Thought content, no suicidal or homicidal ideation. Cognition is impaired. Insight and judgment are impaired. ASSESSMENT: 1. Failure to thrive. 2. Dementia with behavior disturbance. PLAN: 1. Continue with Zyprexa 5 mg at bedtime. 2. Provide the patient with reality orientation and supportive therapy. Jessica Quinonez M.D. DR: Gilberto JOB#: [id number] CC:
--- NOTE | 2019-07-01 07:08 | Anethesia Preoperative Eval ---
Anesthesia Pre-op PMH/ROS General Date of Evaluation: Jul 01, 2019 Time of Evaluation: 06:50 Anesthesiologist: rowan ASA Score: ASA 4 Mallampati Score Class I : Soft palate, uvula, fauces, pillars visible Class II: Soft palate, uvula, fauces visible Class III: Soft palate, base of uvula visible Class IV: Only hard plate visible Mallampati Classification: Class II Surgeon: dominick Diagnosis: dysphagia Surgical Procedure: peg Anesthesia History: none Social History: smoking - unknown Family History: no anesthesia problems Allergies: Coded Allergies: UNABLE TO ASSESS (Unverified , 06/18/19) Medications: see eMAR Patient NPO?: Yes Past Medical History Cardiovascular: Reports: HTN Gastrointestinal/Genitourinary: Reports: other - arf Neurologic/Psychiatric: Reports: CVA, other - ams Endocrine: Reports: DM Anesthesia Pre-op Phys. Exam Physician Exam Last Vital Signs Date Time Temp Pulse Resp B/P (MAP) Pulse Ox O2 Delivery O2 Flow Rate FiO2 07/01/19 05:38 143/69 07/01/19 04:00 97.1 70 18 97 06/30/19 21:00 Nasal Cannula 2.0 06/30/19 19:53 28 Constitutional: NAD Neurologic: other - obtunded Cardiovascular: RRR Respiratory: other - scattered rhonchi with increased upper airway sounds Gastrointestinal: S/NT/ND Airway Exam Mallampati Score: Class II MO: limited Neck: flexible TMD: 2fb ROM: limited Teeth: missing, broken Anesthesia Pre-op A/P Labs Labs Test 06/28/19 08:05 06/29/19 05:30 06/29/19 06:55 06/30/19 06:00 Urine Color Yellow Urine Appearance Clear Urine pH 6.5 (4.5-8.0) Urine Specific [place] 1.010 (1.005-1.035) Urine Protein 3+ (NEGATIVE) Urine Glucose (UA) Negative (NEGATIVE) Urine Ketones Negative (NEGATIVE) Urine Blood 2+ (NEGATIVE) Urine Nitrite Negative (NEGATIVE) Urine Bilirubin Negative (NEGATIVE) Urine Urobilinogen 1 MG/DL (0.0-1.0) Urine Leukocyte Esterase Negative (NEGATIVE) Urine RBC 20-30 /HPF (0 - 0) Urine WBC 0-2 /HPF (0 - 0) Urine Squamous Epithelial Cells Occasional /LPF Urine Bacteria Occasional /HPF (NONE) Arterial Blood pH 7.429 (7.350-7.450) Arterial Blood Partial Pressure CO2 35.6 mmHg (35.0-45.0) Arterial Blood Partial Pressure O2 76.3 mmHg (75.0-100.0) Arterial Blood HCO3 23.0 mmol/L (22.0-26.0) Arterial Blood Oxygen Saturation 94.0 % (95-100) Arterial Blood Base Excess -0.7 (-2-2) Michael Test Positive White Blood Count 15.6 K/UL (4.8-10.8) 15.0 K/UL (4.8-10.8) Red Blood Count 5.00 M/UL (4.70-6.10) 5.04 M/UL (4.70-6.10) Hemoglobin 15.8 G/DL (14.2-18.0) 16.0 G/DL (14.2-18.0) Hematocrit 46.1 % (42.0-52.0) 46.7 % (42.0-52.0) Mean Corpuscular Volume 92 FL (80-99) 93 FL (80-99) Mean Corpuscular Hemoglobin 31.7 PG (27.0-31.0) 31.8 PG (27.0-31.0) Mean Corpuscular Hemoglobin Concent 34.3 G/DL (32.0-36.0) 34.4 G/DL (32.0-36.0) Red Cell Distribution Width 11.3 % (11.6-14.8) 11.6 % (11.6-14.8) Platelet Count 283 K/UL (150-450) 349 K/UL (150-450) Mean Platelet Volume 9.1 FL (6.5-10.1) 8.3 FL (6.5-10.1) Neutrophils (%) (Auto) % (45.0-75.0) 76.2 % (45.0-75.0) Lymphocytes (%) (Auto) % (20.0-45.0) 14.0 % (20.0-45.0) Monocytes (%) (Auto) % (1.0-10.0) 8.2 % (1.0-10.0) Eosinophils (%) (Auto) % (0.0-3.0) 1.1 % (0.0-3.0) Basophils (%) (Auto) % (0.0-2.0) 0.6 % (0.0-2.0) Differential Total Cells Counted 100 Neutrophils % (Manual) 71 % (45-75) Lymphocytes % (Manual) 17 % (20-45) Monocytes % (Manual) 10 % (1-10) Eosinophils % (Manual) 2 % (0-3) Basophils % (Manual) 0 % (0-2) Band Neutrophils 0 % (0-8) Platelet Estimate Adequate Platelet Morphology Normal Sodium Level 159 MMOL/L (136-145) 156 MMOL/L (136-145) Potassium Level 3.6 MMOL/L (3.5-5.1) 3.7 MMOL/L (3.5-5.1) Chloride Level 124 MMOL/L (98-107) 120 MMOL/L (98-107) Carbon Dioxide Level 25 MMOL/L (21-32) 25 MMOL/L (21-32) Anion Gap 10 mmol/L (5-15) 12 mmol/L (5-15) Blood Urea Nitrogen 45 mg/dL (7-18) 53 mg/dL (7-18) Creatinine 1.6 MG/DL (0.55-1.30) 1.8 MG/DL (0.55-1.30) Estimat Glomerular Filtration Rate mL/min (>60) mL/min (>60) Glucose Level 219 MG/DL (74-106) 238 MG/DL (74-106) Calcium Level 8.4 MG/DL (8.5-10.1) 8.6 MG/DL (8.5-10.1) Total Creatine Kinase 328 U/L (26-308) Troponin I 0.124 ng/mL (0.000-0.056) Pro-B-Type Natriuretic Peptide 610 pg/mL (0-125) Risk Assessment & Plan Assessment: [email or web address] Plan: mac Status Change Before Surgery: No Pre-Antibiotics Drug: Marisa Sinclair MD Jul 01, 2019 07:08
[2019-07-01] MEDS: D5 1/2NS 1,000 ML IV SCH (07:13)
[2019-07-01] MEDS ORDERED: Midazolam 2mg/2ml Inj IVP PRN (07:15)
[2019-07-01] MEDS ORDERED: DiphenhydrAMINE 50mg/ml Inj IVP PRN (07:15)
[2019-07-01] MEDS ORDERED: Atropine Inj 1mg/10ml Syr IV PRN (07:15)
[2019-07-01 07:40] LABS: HEMATOCRIT 45.8 % (42.0-52.0); HEMOGLOBIN 16.3 G/DL (14.2-18.0); MEAN CORPUSCULAR VOLUME 90 FL (80-99); PLATELET COUNT 350 K/UL (150-450); RED CELL DISTRIBUTION WIDTH 11.5 % (11.6-14.8); WHITE BLOOD COUNT 18.2 K/UL (4.8-10.8)
[2019-07-01 07:43] LABS: ANION GAP 11 mmol/L (5-15); BLOOD UREA NITROGEN 40 mg/dL (7-18); CALCIUM 8.3 MG/DL (8.5-10.1); CARBON DIOXIDE 24 MMOL/L (21-32); CHLORIDE 118 MMOL/L (98-107); CREATININE 1.5 MG/DL (0.55-1.30); POTASSIUM 3.7 MMOL/L (3.5-5.1); SODIUM 153 MMOL/L (136-145)
--- NOTE | 2019-07-01 07:49 | Pre-Procedure Note/Attestation ---
Pre-Procedure Note/Attestation Complete Prior to Procedure Procedure Narrative: Endoscopy with gastrostomy tube placement Indications for Procedure Pre-Operative Diagnosis: Stroke, dysphagia Attestation I attest that I discussed the nature of the procedure; its benefits; risks and complications; and alternatives (and the risks and benefits of such alternatives ), prior to the procedure, could not be discussed with the patient (due to stroke and AMS) or the patient's legal physician representative (none found). The patient has had a stroke and is unable to eat. He needs a gastrostomy tube on urgent basis to provide safe access for nutrition and medications. Above was discussed with admitting physician, Dr. Gilmore, who agrees to proceed with PEG with 2 MD consent. I attest that I re-evaluated the patient just prior to the surgery and that there has been no change in the patient's H&P, except as documented below: Barb Lee MD Jul 01, 2019 07:49
--- NOTE | 2019-07-01 07:54 | General Progress Note ---
Assessment/Plan Assessment/Plan: Assessment - Acute CVA - AMS - Dysphagia - arrhythmia - free water deficit - leukocytosis - suspect aspiration pneumonitis - poor prognosis Recommendations - NPO - IVF - Abx - IV hydration - monitor labs - EGD with PEG today Subjective Allergies: Coded Allergies: UNABLE TO ASSESS (Unverified , 06/18/19) Subjective above noted No events overnight opens eyes but dues not follow commands Objective Last 24 Hour Vital Signs Date Time Temp Pulse Resp B/P (MAP) Pulse Ox O2 Delivery O2 Flow Rate FiO2 07/01/19 05:38 143/69 07/01/19 04:00 97.1 70 18 143/69 (93) 97 07/01/19 04:00 94 07/01/19 00:32 142/77 07/01/19 00:00 98.9 62 18 142/77 (98) 98 07/01/19 00:00 86 06/30/19 22:49 88 158/54 (88) 93 44 06/30/19 21:45 80 157/90 (112) 96 06/30/19 21:00 Nasal Cannula 2.0 06/30/19 20:44 154/86 06/30/19 20:00 96.9 75 18 154/86 (108) 97 06/30/19 20:00 77 06/30/19 19:53 94 Nasal Cannula 2.0 28 06/30/19 16:00 74 06/30/19 16:00 97.9 78 22 131/69 (89) 94 06/30/19 12:03 89 18 98 Nasal Cannula 2.0 28 88 18 96 06/30/19 12:00 79 06/30/19 12:00 97.9 20 154/84 (107) 91 06/30/19 09:03 88 139/84 06/30/19 09:00 Nasal Cannula 2.0 06/30/19 08:00 97.9 20 139/84 (102) 91 06/30/19 08:00 95 Intake and Output 06/30/19 07/01/19 19:00 07:00 Output Total 500 ml 1200 ml Balance -500 ml -1200 ml Output Urine Total 500 ml 1200 ml Laboratory Tests 07/01/19 05:57: White Blood Count 18.2H, Red Blood Count 5.10, Hemoglobin 16.3, Hematocrit 45.8 , Mean Corpuscular Volume 90, Mean Corpuscular Hemoglobin 32.0H, Mean Corpuscular Hemoglobin Concent 35.6, Red Cell Distribution Width 11.5L, Platelet Count 350, Mean Platelet Volume 8.2, Neutrophils (%) (Auto) , Lymphocytes (%) (Auto) , Monocytes (%) (Auto) , Eosinophils (%) (Auto) , Basophils (%) (Auto) , Neutrophils % (Manual) [Pending], Lymphocytes % (Manual) [Pending], Platelet Estimate [Pending], Platelet Morphology [Pending], Sodium Level 153H, Potassium Level 3.7, Chloride Level 118H, Carbon Dioxide Level 24, Anion Gap 11, Blood Urea Nitrogen 40H, Creatinine 1.5H, Estimat Glomerular Filtration Rate , Glucose Level 196H, Calcium Level 8.3L Height (Feet): 5 Height (Inches): 8.00 Weight (Pounds): 155 Objective Elderly man NCAT supple Coarse BS RR abd soft no edema Barb Lee MD Jul 01, 2019 07:54
--- NOTE | 2019-07-01 07:56 | Endoscopy Procedure Note ---
Endoscopy Procedure Note General Indication for Procedure: Stroke, dysphagia Procedures Performed: EGD, PEG, other Operative Findings/Diagnosis: erosive gastritis, PEG placed, piece of meat removed from throat Specimen: none Pt Tolerated Procedure Well: Yes Estimated Blood Loss: none Anesthesia Anesthesiologist: Spencer Brewer Anesthesia: MAC Medications Medication Given: see anesthesia record Inserted Devices PEG: placed Implant(s) used?: No GI Core Measures 50 yrs or older w/o bx or poly: Not Applicable 10yrs. F/U recommended: Not Applicable Barb Lee MD Jul 01, 2019 07:56
--- NOTE | 2019-07-01 07:59 | Brief Operative Note ---
Immediate Post Operative Note Operative Note Chief Complaint: Stroke, dysphaia Pre-op Diagnosis: Stroke, dysphagia Procedure: Endoscopy, with Gastrostomy tube placement Post-op Diagnosis: Endoscopy, with Gastrostomy tube placement completed Foreign body (4 x 2 cm piece of steak) removed from throat Erosive gastritis seen - rec H2B, Treat HP if Positive Post-op Diagnosis: same as pre-op plus Surgeon: dominick Anesthesiologist: Spencer Brewer Anesthesia: MAC Specimen: none Complications: none Condition: stable Fluids: per anesthesia record Estimated Blood Loss: none Drains: none Implant(s) used?: No Barb Lee MD Jul 01, 2019 07:59
--- NOTE | 2019-07-01 08:25 | Immediate Post-Op Evaluation ---
Immediate Post-Op Evalulation Immediate Post-Op Evalulation Procedure: egd/peg Date of Evaluation: Jul 01, 2019 Time of Evaluation: 08:08 IV Fluids: 50ml d5/0.45ns, 20ml 0.9ns Blood Products: none Estimated Blood Loss: negligible Blood Pressure Systolic: 118 Blood Pressure Diastolic: 81 Pulse Rate: 80 Respiratory Rate: 18 O2 Sat by Pulse Oximetry: 91 Temperature (Fahrenheit): 97.4 Pain Score (1-10): 0 Nausea: No Vomiting: No Complications none Patient Status: awake, reacts, patent Hydration Status: adequate Drug: Marisa Sinclair MD Jul 01, 2019 08:25
--- NOTE | 2019-07-01 08:28 | 48 Hour Post Anesthesia Eval ---
Post Anesthesia Evaluation Procedure: egd/peg Date of Evaluation: Jul 01, 2019 Time of Evaluation: 08:10 Blood Pressure Systolic: 116 0: 77 Pulse Rate: 78 Respiratory Rate: 18 Temperature (Fahrenheit): 97.4 O2 Sat by Pulse Oximetry: 91 Airway: patent Nausea: No Vomiting: No Pain Intensity: 0 Hydration Status: adequate Cardiopulmonary Status: stable Mental Status/LOC: patient returned to baseline Post-Anesthesia Complications: none Follow-up care needed: N/A Marisa Mejia MD Jul 01, 2019 08:28
--- NOTE | 2019-07-01 08:54 | NUR ---
NURSE NOTES:WOUND CARE NOTES:Non-blanching erythema without induration/fluctuance over an area with historical scarring with surrounding hyperpigmentation from previous wound. Both heels are boggy with non-blanching erythema. No other skin concerns noted. Wound prevention protocols continued as care-planned. Moisture Barrier paste applied to Sacrum. Covered with Optifoam drsg. Cavilon Skin Barrier applied to both heels. Each heel covered with Optifoam drsg. Pt positioned with pillow on his side and both heels flaoted off mattress with pillow. Tx.plan: Reposition at least every 2hours or as tolerated. Apply Moisture Barrier Paste to Sacrum. Cover with Optifoam drsg. Change every 3 days and prn. Apply Cavilon Skin BArrier to both heels. Cover each heel with Optifoam drsg. Change every 7 days and prn. Off-load heels with pillow.
--- NOTE | 2019-07-01 11:57 | Infectious Diseases Prog Note ---
Assessment/Plan Assessment/Plan IMPRESSION: Sepsis with fever and leukocytosis, Aspiration pneumonia. cellulitis of the right hand. 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 RECOMMENDATION: We will continue with Zosyn & Zyvox Will f/u cultures Subjective ROS Limited/Unobtainable: Yes Constitutional: Denies: fever Gastrointestinal/Abdominal: Reports: other - had GT placement today Neurologic: Reports: other - on restraint Allergies: Coded Allergies: UNABLE TO ASSESS (Unverified , 06/18/19) Objective Vital Signs Last 24 Hour Vital Signs Date Time Temp Pulse Resp B/P (MAP) Pulse Ox O2 Delivery O2 Flow Rate FiO2 07/01/19 09:47 78 116/77 07/01/19 09:00 Nasal Cannula 2.0 07/01/19 08:28 78 18 91 07/01/19 08:25 80 18 91 07/01/19 08:05 97.9 80 24 139/77 93 Nasal Cannula 3 07/01/19 08:00 78 25 116/77 91 Nasal Cannula 3 07/01/19 08:00 102 07/01/19 07:56 97.4 80 18 118/81 91 Nasal Cannula 3 07/01/19 05:38 143/69 07/01/19 04:00 97.1 70 18 143/69 (93) 97 07/01/19 04:00 94 07/01/19 00:32 142/77 07/01/19 00:00 98.9 62 18 142/77 (98) 98 07/01/19 00:00 86 06/30/19 22:49 88 158/54 (88) 93 44 06/30/19 21:45 80 157/90 (112) 96 06/30/19 21:00 Nasal Cannula 2.0 06/30/19 20:44 154/86 06/30/19 20:00 96.9 75 18 154/86 (108) 97 06/30/19 20:00 77 06/30/19 19:53 94 Nasal Cannula 2.0 28 06/30/19 16:00 74 06/30/19 16:00 97.9 78 22 131/69 (89) 94 06/30/19 12:03 89 18 98 Nasal Cannula 2.0 28 88 18 96 06/30/19 12:00 79 06/30/19 12:00 97.9 20 154/84 (107) 91 Height (Feet): 5 Height (Inches): 8.00 Weight (Pounds): 155 General Appearance: no acute distress HEENT: mucous membranes moist Respiratory/Chest: lungs clear Cardiovascular: normal rate Abdomen: soft, non tender, other - GT Extremities: other - mild hands edema Neurologic/Psychiatric: unresponsiveness, aphasia Laboratory Tests Test 07/01/19 05:57 White Blood Count 18.2 K/UL (4.8-10.8) H Red Blood Count 5.10 M/UL (4.70-6.10) Hemoglobin 16.3 G/DL (14.2-18.0) Hematocrit 45.8 % (42.0-52.0) Mean Corpuscular Volume 90 FL (80-99) Mean Corpuscular Hemoglobin 32.0 PG (27.0-31.0) H Mean Corpuscular Hemoglobin Concent 35.6 G/DL (32.0-36.0) Red Cell Distribution Width 11.5 % (11.6-14.8) L Platelet Count 350 K/UL (150-450) Mean Platelet Volume 8.2 FL (6.5-10.1) Neutrophils (%) (Auto) % (45.0-75.0) Lymphocytes (%) (Auto) % (20.0-45.0) Monocytes (%) (Auto) % (1.0-10.0) Eosinophils (%) (Auto) % (0.0-3.0) Basophils (%) (Auto) % (0.0-2.0) Differential Total Cells Counted 100 Neutrophils % (Manual) 78 % (45-75) H Lymphocytes % (Manual) 12 % (20-45) L Monocytes % (Manual) 7 % (1-10) Eosinophils % (Manual) 1 % (0-3) Basophils % (Manual) 0 % (0-2) Band Neutrophils 2 % (0-8) Platelet Estimate Adequate Platelet Morphology Normal Red Blood Cell Morphology Normal Sodium Level 153 MMOL/L (136-145) H Potassium Level 3.7 MMOL/L (3.5-5.1) Chloride Level 118 MMOL/L (98-107) H Carbon Dioxide Level 24 MMOL/L (21-32) Anion Gap 11 mmol/L (5-15) Blood Urea Nitrogen 40 mg/dL (7-18) H Creatinine 1.5 MG/DL (0.55-1.30) H Estimat Glomerular Filtration Rate mL/min (>60) Glucose Level 196 MG/DL (74-106) H Calcium Level 8.3 MG/DL (8.5-10.1) L Current Medications Medications (Trade) Dose Ordered Sig/Leonor Route PRN Reason Start Time Stop Time Status Last Admin Dose Admin Acetaminophen (Tylenol) 650 mg Q4H PRN NG Mild Pain/Temp > 100.5 06/28/19 08:00 07/28/19 07:59 06/29/19 04:14 Amlodipine Besylate (Norvasc) 10 mg DAILY NG 06/25/19 13:30 07/25/19 13:29 07/01/19 09:47 Aspirin (ASA) 325 mg DAILY NG 06/22/19 09:00 07/20/19 21:44 07/01/19 09:47 Clonidine HCl (Catapres Tab) 0.1 mg EVERY 6 HOURS ORAL 06/23/19 13:45 07/23/19 13:44 06/30/19 06:37 Clotrimazole (Lotrimin) 1 applic THREE TIMES A DAY TOPIC 06/27/19 15:00 07/04/19 14:59 07/01/19 09:51 Dextrose 1,000 ml @ 75 mls/hr [id number] IV 06/30/19 14:30 07/29/19 14:29 06/30/19 20:48 Dextrose (Dextrose 50%) 25 ml Q30M PRN IV Hypoglycemia 06/21/19 18:30 07/18/19 12:29 Dextrose (Dextrose 50%) 50 ml Q30M PRN IV Hypoglycemia 06/21/19 18:30 07/18/19 12:29 Dextrose/Sodium Chloride 1,000 ml @ 100 mls/hr Q10H IV 07/01/19 07:00 07/31/19 06:59 07/01/19 07:13 Hydralazine HCl (Apresoline) 10 mg Q4H PRN IV SBP >150 06/30/19 20:30 07/30/19 20:29 06/30/19 20:44 Hydralazine HCl (Apresoline) 50 mg Q6H PRN NG For High Blood Pressure 06/21/19 18:15 07/21/19 18:14 06/29/19 20:57 Insulin Aspart (NovoLOG) EVERY 6 HOURS SUBQ 06/25/19 18:00 07/19/19 16:59 07/01/19 05:50 Linezolid (Zyvox) 600 mg EVERY 12 HOURS NG 06/28/19 09:45 07/03/19 09:44 07/01/19 09:47 Loperamide HCl (Imodium) 2 mg Q6H PRN NG Diarrhea 06/29/19 11:00 07/29/19 10:59 Magnesium Hydroxide (Mom) 30 ml HSPRN PRN NG Constipation 06/21/19 18:15 07/21/19 18:14 Nitroglycerin (Nitro-Bid) 1 inch Q6HR TOPIC 07/01/19 00:00 07/31/19 20:59 07/01/19 05:38 Olanzapine (ZyPREXA) 5 mg BEDTIME ORAL 06/24/19 21:00 07/24/19 20:59 06/29/19 20:57 Ondansetron HCl (Zofran) 4 mg Q6H PRN IVP Nausea & Vomiting 06/21/19 18:15 07/21/19 18:14 Piperacillin Sod/ Tazobactam Sod 3.375 gm/Sodium Chloride 110 ml @ 27.5 mls/hr Q8H IVPB 06/25/19 15:00 07/02/19 14:59 07/01/19 06:02 Bob Gilmore MD Jul 01, 2019 11:57
--- NOTE | 2019-07-01 13:25 | NUR ---
CASE MANAGEMENT:REVIEW 07/01/19 SI: LARGE ACUTE CVA. CAROTID VESSEL OCCLUSION TROPONIN LEAK. DYSPHAGIA 97.9 80 24 139/77 93% ON 3L/NC WBC+18.2 NA+153 BUN+40 CR+1.5 IS: PEG PLACEMENT TODAY IVF@ 100/HR IV ZOSYN Q8HRS ZYVOX NG Q12 DUONEB HHN Q6HRS RTC NORVASC NG QD ZYPREXA NG QHS CLONIDINE NG Q6HRS ASA NG QD : TELEMETRY STATUS
--- NOTE | 2019-07-01 13:26 | NUR ---
RD ASSESSMENT & RECOMMENDATIONS SEE CARE ACTIVITY FOR COMPLETE ASSESSMENT DAILY ESTIMATED NEEDS: Needs based on sepsis 72kg adj 25-30 kcals/kg 5506-0548 total kcals 1-2 g protein/kg 72-144 g total protein 25-30 mL/kg 3098-8248 total fluid mLs NUTRITION DIAGNOSIS: * Swallowing difficulty R/T dysphagia, s/p new and old CVA as evidenced by NPO per BLENDER/BRAZE APPLICATOR rec, has been on NGT feeds, s/p PEG placement this AM, NPO at this time. * Altered nutrition related lab values r/t sepsis, DM, volume deficit as evidenced by elev WBC (18.2), elev POC glu (134-201) w/ A1C 6.9, elev Na (153), elev BUN (40), elev creat (1.5) CURRENT TF: NPO, s/p PEG placement this AM ENTERAL NUTRITION RECOMMENDATIONS: Glucerna 1.2 @ 65ml/hr x 24 hrs to provide 1560ml, 1872kcal, 94g prot, 1256ml free water - Once medically appropriate, initiate Glucerna 1.2 @ 25ml/hr x 6 hrs - Advance 10ml q 4-6 hrs as tolerated to goal rate - HOB over 30 degrees - H20 flush of 150ml q 4 hrs ADDITIONAL RECOMMENDATIONS: 1) Maintain calibrated bed scale wts 2) Monitor for readiness fo oral grat, MBSS- monitor BLENDER/BRAZE APPLICATOR rec 3) Monitor BGs closely-consider long acting insulin for improved BG control 4) F/up WC eval: rec Vit C 250mg QD rec Osbaldo 1pkt BID via PEG (mix w/ 4oz water) 5) Monitor lytes, replete as needed .
--- NOTE | 2019-07-01 13:27 | NUR ---
ST NOTE: PER RNSHABBIR, THE PATIENT HAD HIS PEG PLACED THIS MORNING. WILL F/UP WITH HIM ON THURSDAY IF HE IS CONSISTENTLY ALERT AND ABLE TO PARTICIPATE. PATIENT IS NOT ALERT AT THIS TIME. EDUCATED/TRAINED RN SHABBIR (HOME CARE MUSIC THERAPIST NOT AVAILABLE) REGARDING NEED TO BRUSH HIS TEETH/TONGUE AND CONTINUE WITH GOOD MOUTH CARE TO REDUCE ORAL BACTERIAL BUILD-UP THAT CAN BE ASPIRATED AND INCREASE RISK FOR ASPIRATION PNEUMONIA. PLAN: CONTINUE TO MONITOR FOR MOD BARIUM SWALLOW STUDY READINESS IP OR OP IF DC (DO NOT HOLD UP D/C FOR THIS STUDY). CONTINUE WITH NONORAL FEEDINGS AND ASPIRATION PRECAUTIONS WHEN TUBE FEEDINGS RUNNING. CONTINUE WITH ORAL CARE IF THE PATIENT IS RECEPTIVE. CONTINUE TO ASSESS FOR SPEECH LANGUAGE IMPROVEMENTS IF ALERT AND IF ST IS ABLE TO GET A [employer] ACCOUNT CONTACT ASSOCIATE.
--- NOTE | 2019-07-01 13:34 | Pulmonology Progress Note ---
Assessment/Plan Assessment/Plan Problem List: * Respiratory distress/insufficiency * Bibasilar pulmonary infiltrates - likely aspiration pneumonia * Altered mental status * Acute CVA * DM Plan: * Monitor respiratory status, ABG reviewed, paradoxical breathing motion persists but improved * Abx per ID * Concern about aspiration of oral secretions, AMS a factor * PEG placement * Duonebs Subjective ROS Limited/Unobtainable: Yes Interval Events: breathing stable. No fevers. No coughing Allergies: Coded Allergies: UNABLE TO ASSESS (Unverified , 06/18/19) Objective Last 24 Hour Vital Signs Date Time Temp Pulse Resp B/P (MAP) Pulse Ox O2 Delivery O2 Flow Rate FiO2 07/01/19 12:56 136/82 07/01/19 12:54 136/82 07/01/19 09:47 78 116/77 07/01/19 09:00 Nasal Cannula 2.0 07/01/19 08:28 78 18 91 07/01/19 08:25 80 18 91 07/01/19 08:05 97.9 80 24 139/77 93 Nasal Cannula 3 07/01/19 08:00 78 25 116/77 91 Nasal Cannula 3 07/01/19 08:00 102 07/01/19 07:56 97.4 80 18 118/81 91 Nasal Cannula 3 07/01/19 05:38 143/69 07/01/19 04:00 97.1 70 18 143/69 (93) 97 07/01/19 04:00 94 07/01/19 00:32 142/77 07/01/19 00:00 98.9 62 18 142/77 (98) 98 07/01/19 00:00 86 06/30/19 22:49 88 158/54 (88) 93 44 06/30/19 21:45 80 157/90 (112) 96 06/30/19 21:00 Nasal Cannula 2.0 06/30/19 20:44 154/86 06/30/19 20:00 96.9 75 18 154/86 (108) 97 06/30/19 20:00 77 06/30/19 19:53 94 Nasal Cannula 2.0 28 06/30/19 16:00 74 06/30/19 16:00 97.9 78 22 131/69 (89) 94 Intake and Output 06/30/19 07/01/19 19:00 07:00 Output Total 500 ml 1200 ml Balance -500 ml -1200 ml Output Urine Total 500 ml 1200 ml General Appearance: no acute distress HEENT: mucous membranes moist Respiratory/Chest: lungs clear Cardiovascular: normal rate Abdomen: soft, non tender Extremities: no edema Laboratory Tests 07/01/19 05:57: White Blood Count 18.2H, Red Blood Count 5.10, Hemoglobin 16.3, Hematocrit 45.8 , Mean Corpuscular Volume 90, Mean Corpuscular Hemoglobin 32.0H, Mean Corpuscular Hemoglobin Concent 35.6, Red Cell Distribution Width 11.5L, Platelet Count 350, Mean Platelet Volume 8.2, Neutrophils (%) (Auto) , Lymphocytes (%) (Auto) , Monocytes (%) (Auto) , Eosinophils (%) (Auto) , Basophils (%) (Auto) , Differential Total Cells Counted 100, Neutrophils % ( Manual) 78H, Lymphocytes % (Manual) 12L, Monocytes % (Manual) 7, Eosinophils % ( Manual) 1, Basophils % (Manual) 0, Band Neutrophils 2, Platelet Estimate Adequate, Platelet Morphology Normal, Red Blood Cell Morphology Normal, Sodium Level 153H, Potassium Level 3.7, Chloride Level 118H, Carbon Dioxide Level 24, Anion Gap 11, Blood Urea Nitrogen 40H, Creatinine 1.5H, Estimat Glomerular Filtration Rate , Glucose Level 196H, Calcium Level 8.3L Current Medications Medications (Trade) Dose Ordered Sig/Leonor Route PRN Reason Start Time Stop Time Status Last Admin Dose Admin Acetaminophen (Tylenol) 650 mg Q4H PRN NG Mild Pain/Temp > 100.5 06/28/19 08:00 07/28/19 07:59 06/29/19 04:14 Amlodipine Besylate (Norvasc) 10 mg DAILY NG 06/25/19 13:30 07/25/19 13:29 07/01/19 09:47 Aspirin (ASA) 325 mg DAILY NG 06/22/19 09:00 07/20/19 21:44 07/01/19 09:47 Clonidine HCl (Catapres Tab) 0.1 mg EVERY 6 HOURS ORAL 06/23/19 13:45 07/23/19 13:44 07/01/19 12:56 Clotrimazole (Lotrimin) 1 applic THREE TIMES A DAY TOPIC 06/27/19 15:00 07/04/19 14:59 07/01/19 12:55 Dextrose 1,000 ml @ 75 mls/hr [id number] IV 06/30/19 14:30 07/29/19 14:29 06/30/19 20:48 Dextrose (Dextrose 50%) 25 ml Q30M PRN IV Hypoglycemia 06/21/19 18:30 07/18/19 12:29 Dextrose (Dextrose 50%) 50 ml Q30M PRN IV Hypoglycemia 06/21/19 18:30 07/18/19 12:29 Dextrose/Sodium Chloride 1,000 ml @ 100 mls/hr Q10H IV 07/01/19 07:00 07/31/19 06:59 07/01/19 07:13 Hydralazine HCl (Apresoline) 10 mg Q4H PRN IV SBP >150 06/30/19 20:30 07/30/19 20:29 06/30/19 20:44 Hydralazine HCl (Apresoline) 50 mg Q6H PRN NG For High Blood Pressure 06/21/19 18:15 07/21/19 18:14 06/29/19 20:57 Insulin Aspart (NovoLOG) EVERY 6 HOURS SUBQ 06/25/19 18:00 07/19/19 16:59 07/01/19 05:50 Linezolid (Zyvox) 600 mg EVERY 12 HOURS NG 06/28/19 09:45 07/06/19 23:59 07/01/19 09:47 Loperamide HCl (Imodium) 2 mg Q6H PRN NG Diarrhea 06/29/19 11:00 07/29/19 10:59 Magnesium Hydroxide (Mom) 30 ml HSPRN PRN NG Constipation 06/21/19 18:15 07/21/19 18:14 Nitroglycerin (Nitro-Bid) 1 inch Q6HR TOPIC 07/01/19 00:00 07/31/19 20:59 07/01/19 12:54 Olanzapine (ZyPREXA) 5 mg BEDTIME ORAL 06/24/19 21:00 07/24/19 20:59 06/29/19 20:57 Ondansetron HCl (Zofran) 4 mg Q6H PRN IVP Nausea & Vomiting 06/21/19 18:15 2/6/20 18:14 Piperacillin Sod/ Tazobactam Sod 3.375 gm/Sodium Chloride 110 ml @ 27.5 mls/hr Q8H IVPB 06/25/19 15:00 07/06/19 23:59 07/01/19 06:02 Deni Borges MD Jul 01, 2019 13:34
--- NOTE | 2019-07-01 14:04 | General Progress Note ---
Assessment/Plan Problem List: (1) Cellulitis of right hand ICD Codes: L03.113 - Cellulitis of right upper limb SNOMED: 78356311 (2) Altered level of consciousness ICD Codes: R40.4 - Transient alteration of awareness SNOMED: 4856073 (3) Sepsis ICD Codes: A41.9 - Sepsis, unspecified organism SNOMED: 33285822 Qualifiers: Qualified Codes: A41.9 - Sepsis, unspecified organism (4) Left middle cerebral artery stroke ICD Codes: I63.512 - Cerebral infarction due to unspecified occlusion or stenosis of left middle cerebral artery SNOMED: 283560491 (5) Left carotid artery occlusion ICD Codes: I65.22 - Occlusion and stenosis of left carotid artery SNOMED: 720662089396959 (6) Hypernatremia Assessment & Plan: better ICD Codes: E87.0 - Hyperosmolality and hypernatremia SNOMED: 598639455 (7) Hypokalemia Assessment & Plan: better ICD Codes: E87.6 - Hypokalemia SNOMED: 98678604 (8) DM (diabetes mellitus) ICD Codes: E11.9 - Type 2 diabetes mellitus without complications SNOMED: 56710529 (9) Pneumonia ICD Codes: J18.9 - Pneumonia, unspecified organism SNOMED: 959135131 (10) ARF (acute renal failure) Assessment & Plan: no change ICD Codes: N17.9 - Acute kidney failure, unspecified SNOMED: 31007092 Assessment/Plan: continue ASA Discussed with RN continue D5W NPO SSI cont Duoneb cont abxs follow labs Discussed with ID Subjective Allergies: Coded Allergies: UNABLE TO ASSESS (Unverified , 06/18/19) Subjective looks better Objective Last 24 Hour Vital Signs Date Time Temp Pulse Resp B/P (MAP) Pulse Ox O2 Delivery O2 Flow Rate FiO2 07/01/19 12:56 136/82 07/01/19 12:54 136/82 07/01/19 09:47 78 116/77 07/01/19 09:00 Nasal Cannula 2.0 07/01/19 08:28 78 18 91 07/01/19 08:25 80 18 91 07/01/19 08:05 97.9 80 24 139/77 93 Nasal Cannula 3 07/01/19 08:00 78 25 116/77 91 Nasal Cannula 3 07/01/19 08:00 102 07/01/19 07:56 97.4 80 18 118/81 91 Nasal Cannula 3 07/01/19 05:38 143/69 07/01/19 04:00 97.1 70 18 143/69 (93) 97 07/01/19 04:00 94 07/01/19 00:32 142/77 07/01/19 00:00 98.9 62 18 142/77 (98) 98 07/01/19 00:00 86 06/30/19 22:49 88 158/54 (88) 93 44 06/30/19 21:45 80 157/90 (112) 96 06/30/19 21:00 Nasal Cannula 2.0 06/30/19 20:44 154/86 06/30/19 20:00 96.9 75 18 154/86 (108) 97 06/30/19 20:00 77 06/30/19 19:53 94 Nasal Cannula 2.0 28 06/30/19 16:00 74 06/30/19 16:00 97.9 78 22 131/69 (89) 94 Intake and Output 06/30/19 07/01/19 19:00 07:00 Output Total 500 ml 1200 ml Balance -500 ml -1200 ml Output Urine Total 500 ml 1200 ml Laboratory Tests 07/01/19 05:57: White Blood Count 18.2H, Red Blood Count 5.10, Hemoglobin 16.3, Hematocrit 45.8 , Mean Corpuscular Volume 90, Mean Corpuscular Hemoglobin 32.0H, Mean Corpuscular Hemoglobin Concent 35.6, Red Cell Distribution Width 11.5L, Platelet Count 350, Mean Platelet Volume 8.2, Neutrophils (%) (Auto) , Lymphocytes (%) (Auto) , Monocytes (%) (Auto) , Eosinophils (%) (Auto) , Basophils (%) (Auto) , Differential Total Cells Counted 100, Neutrophils % ( Manual) 78H, Lymphocytes % (Manual) 12L, Monocytes % (Manual) 7, Eosinophils % ( Manual) 1, Basophils % (Manual) 0, Band Neutrophils 2, Platelet Estimate Adequate, Platelet Morphology Normal, Red Blood Cell Morphology Normal, Sodium Level 153H, Potassium Level 3.7, Chloride Level 118H, Carbon Dioxide Level 24, Anion Gap 11, Blood Urea Nitrogen 40H, Creatinine 1.5H, Estimat Glomerular Filtration Rate , Glucose Level 196H, Calcium Level 8.3L Height (Feet): 5 Height (Inches): 8.00 Weight (Pounds): 155 Cardiovascular: normal rate Respiratory/Chest: rhonchi - bilaterally Edema: no edema noted Generalized Kaz Gilmore MD Jul 01, 2019 14:04
--- NOTE | 2019-07-01 19:02 | Cardiology Progress Note ---
Assessment/Plan Assessment/Plan 1. Respiratory insufficiency. 2. Cerebrovascular accident. 3. Premature ventricular complexes. 4. Interstitial infiltrates. 5. Altered mentation. 6. CVA. 7. Hypernatremia. 8. Renal insufficiency. 9. NSVT s/p peg free water ef 65-70 tele sinus on iv bp med per peg watch bp may need uriel adjsut remains quite altered Subjective ROS Limited/Unobtainable: Yes Subjective altered mentation Objective Last 24 Hour Vital Signs Date Time Temp Pulse Resp B/P (MAP) Pulse Ox O2 Delivery O2 Flow Rate FiO2 07/01/19 17:49 147/76 07/01/19 17:30 147/76 07/01/19 16:00 65 07/01/19 16:00 97.5 76 24 147/76 (99) 94 07/01/19 12:56 136/82 07/01/19 12:54 136/82 07/01/19 12:00 97.9 78 22 131/69 (89) 94 07/01/19 12:00 74 07/01/19 09:47 78 116/77 07/01/19 09:00 Nasal Cannula 2.0 07/01/19 08:28 78 18 91 07/01/19 08:25 80 18 91 07/01/19 08:05 97.9 80 24 139/77 93 Nasal Cannula 3 07/01/19 08:00 78 25 116/77 91 Nasal Cannula 3 07/01/19 08:00 102 07/01/19 07:56 97.4 80 18 118/81 91 Nasal Cannula 3 07/01/19 05:38 143/69 07/01/19 04:00 97.1 70 18 143/69 (93) 97 07/01/19 04:00 94 07/01/19 00:32 142/77 07/01/19 00:00 98.9 62 18 142/77 (98) 98 07/01/19 00:00 86 06/30/19 22:49 88 158/54 (88) 93 44 06/30/19 21:45 80 157/90 (112) 96 06/30/19 21:00 Nasal Cannula 2.0 06/30/19 20:44 154/86 06/30/19 20:00 96.9 75 18 154/86 (108) 97 1/16/20 20:00 77 06/30/19 19:53 94 Nasal Cannula 2.0 28 General Appearance: no apparent distress Cardiovascular: normal rate Respiratory/Chest: lungs clear - anterirolry Abdomen: normal bowel sounds, non tender, soft Extremities: no swelling Intake and Output 06/30/19 07/01/19 19:00 07:00 Output Total 500 ml 1200 ml Balance -500 ml -1200 ml Output Urine Total 500 ml 1200 ml Laboratory Tests Test 07/01/19 05:57 White Blood Count 18.2 K/UL (4.8-10.8) H Red Blood Count 5.10 M/UL (4.70-6.10) Hemoglobin 16.3 G/DL (14.2-18.0) Hematocrit 45.8 % (42.0-52.0) Mean Corpuscular Volume 90 FL (80-99) Mean Corpuscular Hemoglobin 32.0 PG (27.0-31.0) H Mean Corpuscular Hemoglobin Concent 35.6 G/DL (32.0-36.0) Red Cell Distribution Width 11.5 % (11.6-14.8) L Platelet Count 350 K/UL (150-450) Mean Platelet Volume 8.2 FL (6.5-10.1) Neutrophils (%) (Auto) % (45.0-75.0) Lymphocytes (%) (Auto) % (20.0-45.0) Monocytes (%) (Auto) % (1.0-10.0) Eosinophils (%) (Auto) % (0.0-3.0) Basophils (%) (Auto) % (0.0-2.0) Differential Total Cells Counted 100 Neutrophils % (Manual) 78 % (45-75) H Lymphocytes % (Manual) 12 % (20-45) L Monocytes % (Manual) 7 % (1-10) Eosinophils % (Manual) 1 % (0-3) Basophils % (Manual) 0 % (0-2) Band Neutrophils 2 % (0-8) Platelet Estimate Adequate Platelet Morphology Normal Red Blood Cell Morphology Normal Sodium Level 153 MMOL/L (136-145) H Potassium Level 3.7 MMOL/L (3.5-5.1) Chloride Level 118 MMOL/L (98-107) H Carbon Dioxide Level 24 MMOL/L (21-32) Anion Gap 11 mmol/L (5-15) Blood Urea Nitrogen 40 mg/dL (7-18) H Creatinine 1.5 MG/DL (0.55-1.30) H Estimat Glomerular Filtration Rate mL/min (>60) Glucose Level 196 MG/DL (74-106) H Calcium Level 8.3 MG/DL (8.5-10.1) L Chris Melgar MD Jul 01, 2019 19:02
--- NOTE | 2019-07-01 19:30 | NUR ---
NURSE NOTES: Received report from JUSTINO Lane. Patient is asleep, nonverbal, responsive to verbal and tactile stimuli, lying in semi preez's; resting comfortably. No signs of pain nor distress noted. Checked IV site and flushed. No erythema, bleeding or infiltration noted. On G tube with no gastric residual volume. On bilateral soft wrist restraints, with good circulation, mobility and skin intact. Bed at lowest position, brakes on, [id number]. Call light within reach. Will continue to monitor. Addendum: 07/01/19 at 2236 by Joanne Isbell RN Patient is on high perez's position.
--- NOTE | 2019-07-01 20:04 | NUR ---
HAND-OFF: Report given to fadia BADILLO.
--- NOTE | 2019-07-01 20:15 | Operative Note - Dictated ---
DATE OF OPERATION: 07/01/2019 GASTROENTEROLOGY PROCEDURE PROCEDURE: Upper gastrointestinal endoscopy with gastrostomy tube placement as well as foreign body removal from the throat. SURGEON: Barb Lee M.D. ANESTHESIOLOGIST: Marisa Douglas M.D. PRE-ENDOSCOPIC DIAGNOSES: Stroke and dysphagia. POST-ENDOSCOPIC DIAGNOSES: 1. Erosive gastritis. 2. A 2 cm x 4 cm piece of steak removed from the throat. 3. Status post gastrostomy tube placement. DESCRIPTION OF PROCEDURE: The patient had a recent stroke and had altered mental status and therefore the consent could not be discussed with him. No family was available on record and this was confirmed through search both by the social media director and also by the document restorer on records. Because of the stroke and inability to eat by mouth, the gastrostomy tube was felt to be necessary to provide a safe and sustainable access for medications and food. The details of the procedure was reviewed by both the gastroenterology as well as the primary physician and therefore two-physician consent protocol was used to proceed with the gastrostomy tube placement. The patient was then sedated in supine position and diagnostic endoscope was introduced through the throat. Extensive amount of inspissated mucus and dry secretions were noted in the throat, which was suctioned. The endoscope was advanced to the duodenum and the examination showed erosive gastritis. The location for placement of gastrostomy tube was identified by palpation and transillumination techniques. The outside skin was anesthetized, sterilely prepared, and a trocar needle was used to place the gastrostomy tube using the standard pull technique. Position was verified endoscopically. Upon re-introducing the endoscope a 4 x 3 cm piece of foreign body was seen emanating from the nasopharynx into the pharynx. Initially this was felt to be inspissated mucus, but after extensive suction finally the piece was brought out and it appeared to be a 2 x 4 centimeter piece of flat steak, which was removed and photographed. The airway was once again suctioned clear and the patient was sent to recovery in stable condition. RECOMMENDATIONS: 1. Observe overnight. 2. Begin tube feedings tomorrow. 3. Check and treat Helicobacter pylori if positive. 4. acid blockers. Barb Lee M.D. DR: CIPRIANO JOB#: [id number] CC: MELINDA
[2019-07-01] MEDS ORDERED: Nitroglycerin 2% oint pkt TOPIC SCH (21:00)
--- NOTE | 2019-07-01 22:45 | Progress Note ---
DATE: 06/30/2019 SUBJECTIVE: The patient was seen in his bed as he had pulled out his NG tube. He is awake, but not really communicative, but responsive. He does look around. OBJECTIVE: VITAL SIGNS: Temperature 96.9, heart rate is 75, respirations 18, and blood pressure 154/86 with 97% saturation. LUNGS: Few rhonchi noted. CARDIAC: Regular rate and rhythm. ABDOMEN: Soft and nontender. Positive bowel sounds. EXTREMITIES: No edema. DIAGNOSTIC DATA: Telemetry shows sinus rhythm with 1 short run of nonsustained ventricular tachycardia. An echocardiogram has been performed that showed ejection fraction of 65 to 70 percent. No significant valvular pathology and mild diastolic relaxation abnormalities based on final report. LABORATORY DATA: White count of 15, hemoglobin 16, and platelet count of 349,000. Sodium 156, potassium 3.7, chloride 120, BUN 53, creatinine 1.8, and glucose of 238. Calcium is 8.6. CK of 328. Pro-natriuretic peptide of 610 and a troponin of 0.124. ASSESSMENT AND PLAN: 1. Hypertension. 2. Respiratory insufficiency. 3. Cerebrovascular accident history. 4. Premature ventricular complexes/nonsustained ventricular tachycardia. 5. Interstitial infiltrates. 6. CVA. 7. Hypernatremia. 8. Renal insufficiency. PLAN: Dr. Gilmore, this patient was seen in cardiac consultation. The patient removed his NG-tube. I did discuss the care with the patient's nurse. The patient was started on intravenous hydralazine and nitro paste to be administered while the patient is NPO. He having a PEG tube on July 01, 2019. He otherwise seems to be doing well. Proceed with PEG placement. Chris Melgar M.D. DR: BA JOB#: [id number] CC:
--- NOTE | 2019-07-01 23:48 | Psych Consult Progress Note ---
Psychiatry Progress Note Psychiatry Progress Note Subjective no acute distress noted, MENTAL STATUS EXAMINATION: The patient is alert, disoriented. Mood is neutral to agitation. Affect is flat. Thought process, there is a paucity of thought content. Thought content, no suicidal or homicidal ideation. Cognition is impaired. Insight and judgment are impaired. ASSESSMENT: 1. Failure to thrive. 2. Dementia with behavior disturbance. PLAN: 1. Continue with Zyprexa 5 mg at bedtime. 2. Provide the patient with reality orientation Medications Current Medications Medications (Trade) Dose Ordered Sig/Leonor Route PRN Reason Start Time Stop Time Status Last Admin Dose Admin Acetaminophen (Tylenol) 650 mg Q4H PRN NG Mild Pain/Temp > 100.5 06/28/19 08:00 07/28/19 07:59 06/29/19 04:14 Amlodipine Besylate (Norvasc) 10 mg DAILY NG 06/25/19 13:30 07/25/19 13:29 07/01/19 09:47 Aspirin (ASA) 325 mg DAILY NG 06/22/19 09:00 07/20/19 21:44 07/01/19 09:47 Clonidine HCl (Catapres Tab) 0.1 mg EVERY 6 HOURS ORAL 06/23/19 13:45 07/23/19 13:44 07/01/19 17:30 Clotrimazole (Lotrimin) 1 applic THREE TIMES A DAY TOPIC 06/27/19 15:00 07/04/19 14:59 07/01/19 17:49 Dextrose 1,000 ml @ 75 mls/hr [id number] IV 06/30/19 14:30 07/29/19 14:29 07/01/19 17:50 Dextrose (Dextrose 50%) 25 ml Q30M PRN IV Hypoglycemia 06/21/19 18:30 07/18/19 12:29 Dextrose (Dextrose 50%) 50 ml Q30M PRN IV Hypoglycemia 06/21/19 18:30 07/18/19 12:29 Hydralazine HCl (Apresoline) 10 mg Q4H PRN IV SBP >150 06/30/19 20:30 07/30/19 20:29 06/30/19 20:44 Hydralazine HCl (Apresoline) 50 mg Q6H PRN NG For High Blood Pressure 06/21/19 18:15 07/21/19 18:14 06/29/19 20:57 Insulin Aspart (NovoLOG) EVERY 6 HOURS SUBQ 06/25/19 18:00 07/19/19 16:59 07/01/19 05:50 Linezolid (Zyvox) 600 mg EVERY 12 HOURS NG 06/28/19 09:45 07/06/19 23:59 07/01/19 20:46 Loperamide HCl (Imodium) 2 mg Q6H PRN NG Diarrhea 06/29/19 11:00 07/29/19 10:59 Magnesium Hydroxide (Mom) 30 ml HSPRN PRN NG Constipation 06/21/19 18:15 07/21/19 18:14 Nitroglycerin (Nitro-Bid) 1 inch Q6HR TOPIC 07/01/19 00:00 07/31/19 20:59 07/01/19 17:49 Olanzapine (ZyPREXA) 5 mg BEDTIME ORAL 06/24/19 21:00 07/24/19 20:59 07/01/19 20:46 Ondansetron HCl (Zofran) 4 mg Q6H PRN IVP Nausea & Vomiting 06/21/19 18:15 07/21/19 18:14 Piperacillin Sod/ Tazobactam Sod 3.375 gm/Sodium Chloride 110 ml @ 27.5 mls/hr Q8H IVPB 06/25/19 15:00 07/06/19 23:59 07/01/19 22:40 Neurological/Psychiatric: Reports: anxiety Allergies: Coded Allergies: UNABLE TO ASSESS (Unverified , 06/18/19) Objective Data Height (Feet): 5 Height (Inches): 8.00 Weight (Pounds): 155 Behavior Mannerisms: good eye contact Mental Status Exam - Affect: blunted Mental Status Exam - Thought P: no abnormalities Jessica Quinonez MD Jul 01, 2019 23:48
[2019-07-02] VITALS: BP 118/67
--- NOTE | 2019-07-02 01:11 | NUR ---
NURSE NOTES: Resting throughout the night. No significant change of condition noted. Will continue to monitor.
[2019-07-02 04:00] VITALS: BP 114/88
[2019-07-02] MEDS: NovoLOG Insulin Flexpen SUBQ SCH ×3 (05:35→18:00)
[2019-07-02] MEDS: Piperacillin/Tazobactam 3.375 GM in NS 110 ML IVPB SCH ×3 (06:12→23:56)
[2019-07-02] MEDS: Nitroglycerin 2% oint pkt TOPIC SCH ×4 (06:23→23:57)
--- NOTE | 2019-07-02 07:17 | NUR ---
HAND-OFF: Report given to JUSTINO Carvajal. Plan of care endorsed.
--- NOTE | 2019-07-02 07:25 | NUR ---
NURSE NOTES: Received report from Joanne/RN, Patient is asleep, lying semi-perez's, resting comfortably. On nasal canula, no acute distress/SOB noted. IV on left FA patent, no bleeding or infiltration noted, D5W running at 75cc/hr. Condom cath draining well to gravity. Bed in low position and locked, Call light within reach, Encouraged to use call light when needed. Will continue plan of care.
[2019-07-02 08:00] VITALS: BP 155/83
[2019-07-02 08:05] LABS: BASOPHILS % (AUTO) 1.6 % (0.0-2.0); HEMATOCRIT 43.7 % (42.0-52.0); HEMOGLOBIN 15.2 G/DL (14.2-18.0); MEAN CORPUSCULAR VOLUME 91 FL (80-99); MONOCYTES % (AUTO) 9.5 % (1.0-10.0); NEUTROPHILS % (AUTO) 78.9 % (45.0-75.0); PLATELET COUNT 346 K/UL (150-450); RED BLOOD COUNT 4.79 M/UL (4.70-6.10); RED CELL DISTRIBUTION WIDTH 11.5 % (11.6-14.8); WHITE BLOOD COUNT 15.4 K/UL (4.8-10.8)
--- NOTE | 2019-07-02 08:28 | Pulmonology Progress Note ---
Assessment/Plan Assessment/Plan Problem List: * Respiratory distress/insufficiency * Bibasilar pulmonary infiltrates - likely aspiration pneumonia * Altered mental status * Acute CVA * DM Plan: * Monitor respiratory status, stable * Abx per ID * Concern about aspiration of oral secretions, AMS a factor * PEG placement * Duonebs Subjective ROS Limited/Unobtainable: Yes Interval Events: No acute events. No fevers. WBC down. Allergies: Coded Allergies: UNABLE TO ASSESS (Unverified , 06/18/19) Objective Last 24 Hour Vital Signs Date Time Temp Pulse Resp B/P (MAP) Pulse Ox O2 Delivery O2 Flow Rate FiO2 07/02/19 07:01 95 Nasal Cannula 2.0 28 07/02/19 06:23 150/70 07/02/19 06:00 150/70 07/02/19 04:00 97.0 60 18 114/88 (97) 97 07/02/19 04:00 58 07/02/19 00:00 54 07/02/19 00:00 98.2 52 18 118/67 (84) 96 07/01/19 23:53 118/67 07/01/19 23:50 118/67 07/01/19 21:00 Nasal Cannula 2.0 07/01/19 20:00 97.9 59 18 124/69 (87) 95 07/01/19 20:00 58 07/01/19 19:38 96 Nasal Cannula 2.0 28 07/01/19 17:49 147/76 07/01/19 17:30 147/76 07/01/19 16:00 65 07/01/19 16:00 97.5 76 24 147/76 (99) 94 07/01/19 12:56 136/82 07/01/19 12:54 136/82 07/01/19 12:00 97.9 78 22 131/69 (89) 94 07/01/19 12:00 74 07/01/19 09:47 78 116/77 07/01/19 09:00 Nasal Cannula 2.0 07/01/19 08:28 78 18 91 Intake and Output 07/01/19 07/02/19 19:00 07:00 Intake Total 1045 ml Output Total 2200 ml Balance -1155 ml IV Total 20 ml Other 1025 ml Output Urine Total 2200 ml # Voids 2 General Appearance: no acute distress HEENT: mucous membranes moist Respiratory/Chest: lungs clear Cardiovascular: normal rate Abdomen: soft, non tender Extremities: no edema Skin: no rash Laboratory Tests 07/02/19 06:27: White Blood Count 15.4H, Red Blood Count 4.79, Hemoglobin 15.2, Hematocrit 43.7 , Mean Corpuscular Volume 91, Mean Corpuscular Hemoglobin 31.6H, Mean Corpuscular Hemoglobin Concent 34.7, Red Cell Distribution Width 11.5L, Platelet Count 346, Mean Platelet Volume 8.2, Neutrophils (%) (Auto) 78.9H, Lymphocytes (%) (Auto) 9.0L, Monocytes (%) (Auto) 9.5, Eosinophils (%) (Auto) 1.0, Basophils (%) (Auto) 1.6, Sodium Level [Pending], Potassium Level [Pending] , Chloride Level [Pending], Carbon Dioxide Level [Pending], Blood Urea Nitrogen [Pending], Creatinine [Pending], Estimat Glomerular Filtration Rate [Pending], Glucose Level [Pending], Calcium Level [Pending], Total Bilirubin [Pending], Aspartate Amino Transf (AST/SGOT) [Pending], Alanine Aminotransferase (ALT/SGPT ) [Pending], Alkaline Phosphatase [Pending], Total Protein [Pending], Albumin [ Pending], Globulin [Pending] Current Medications Medications (Trade) Dose Ordered Sig/Leonor Route PRN Reason Start Time Stop Time Status Last Admin Dose Admin Acetaminophen (Tylenol) 650 mg Q4H PRN NG Mild Pain/Temp > 100.5 06/28/19 08:00 07/28/19 07:59 06/29/19 04:14 Amlodipine Besylate (Norvasc) 10 mg DAILY NG 06/25/19 13:30 07/25/19 13:29 07/01/19 09:47 Aspirin (ASA) 325 mg DAILY NG 06/22/19 09:00 07/20/19 21:44 07/01/19 09:47 Clonidine HCl (Catapres Tab) 0.1 mg EVERY 6 HOURS ORAL 06/23/19 13:45 07/23/19 13:44 07/01/19 17:30 Clotrimazole (Lotrimin) 1 applic THREE TIMES A DAY TOPIC 06/27/19 15:00 07/04/19 14:59 07/01/19 17:49 Dextrose 1,000 ml @ 75 mls/hr [id number] IV 06/30/19 14:30 07/29/19 14:29 07/02/19 06:13 Dextrose (Dextrose 50%) 25 ml Q30M PRN IV Hypoglycemia 06/21/19 18:30 07/18/19 12:29 Dextrose (Dextrose 50%) 50 ml Q30M PRN IV Hypoglycemia 06/21/19 18:30 07/18/19 12:29 Hydralazine HCl (Apresoline) 10 mg Q4H PRN IV SBP >150 06/30/19 20:30 07/30/19 20:29 06/30/19 20:44 Hydralazine HCl (Apresoline) 50 mg Q6H PRN NG For High Blood Pressure 06/21/19 18:15 07/21/19 18:14 06/29/19 20:57 Insulin Aspart (NovoLOG) EVERY 6 HOURS SUBQ 06/25/19 18:00 07/19/19 16:59 07/01/19 23:56 Linezolid (Zyvox) 600 mg EVERY 12 HOURS NG 06/28/19 09:45 07/06/19 23:59 07/01/19 20:46 Loperamide HCl (Imodium) 2 mg Q6H PRN NG Diarrhea 06/29/19 11:00 07/29/19 10:59 Magnesium Hydroxide (Mom) 30 ml HSPRN PRN NG Constipation 06/21/19 18:15 07/21/19 18:14 Nitroglycerin (Nitro-Bid) 1 inch Q6HR TOPIC 07/01/19 00:00 07/31/19 20:59 07/02/19 06:23 Olanzapine (ZyPREXA) 5 mg BEDTIME ORAL 06/24/19 21:00 07/24/19 20:59 07/01/19 20:46 Ondansetron HCl (Zofran) 4 mg Q6H PRN IVP Nausea & Vomiting 06/21/19 18:15 07/21/19 18:14 Piperacillin Sod/ Tazobactam Sod 3.375 gm/Sodium Chloride 110 ml @ 27.5 mls/hr Q8H IVPB 1/11/20 15:00 07/06/19 23:59 07/02/19 06:12 Deni Borges MD Jul 02, 2019 08:28
[2019-07-02 08:30] LABS: ALANINE AMINOTRANSFERASE 35 U/L (12-78); ALBUMIN 1.8 G/DL (3.4-5.0); ALBUMIN/GLOBULIN RATIO 0.3 (1.0-2.7); ALKALINE PHOSPHATASE 73 U/L (46-116); ANION GAP 8 mmol/L (5-15); ASPARTATE AMINO TRANSFERASE 42 U/L (15-37); BILIRUBIN,TOTAL 0.9 MG/DL (0.2-1.0); BLOOD UREA NITROGEN 42 mg/dL (7-18); CALCIUM 8.3 MG/DL (8.5-10.1); CARBON DIOXIDE 25 MMOL/L (21-32); CHLORIDE 117 MMOL/L (98-107); CREATININE 1.5 MG/DL (0.55-1.30); POTASSIUM 3.8 MMOL/L (3.5-5.1); SODIUM 150 MMOL/L (136-145)
--- NOTE | 2019-07-02 11:19 | Infectious Diseases Prog Note ---
Assessment/Plan Assessment/Plan IMPRESSION: Sepsis with fever and leukocytosis,resolving Aspiration pneumonia. cellulitis of the right hand. 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 RECOMMENDATION: We will continue with Zosyn & Zyvox Case was D/W RN Subjective ROS Limited/Unobtainable: Yes Constitutional: Reports: other - looks better today Neurologic: Reports: confusion, other - on restraint Allergies: Coded Allergies: UNABLE TO ASSESS (Unverified , 06/18/19) Objective Vital Signs Last 24 Hour Vital Signs Date Time Temp Pulse Resp B/P (MAP) Pulse Ox O2 Delivery O2 Flow Rate FiO2 07/02/19 09:16 61 155/83 07/02/19 09:00 Nasal Cannula 2.0 07/02/19 08:00 61 07/02/19 08:00 97.9 57 20 155/83 (107) 97 07/02/19 07:01 95 Nasal Cannula 2.0 28 07/02/19 06:23 150/70 07/02/19 06:00 150/70 07/02/19 04:00 97.0 60 18 114/88 (97) 97 07/02/19 04:00 58 07/02/19 00:00 54 07/02/19 00:00 98.2 52 18 118/67 (84) 96 07/01/19 23:53 118/67 07/01/19 23:50 118/67 07/01/19 21:00 Nasal Cannula 2.0 07/01/19 20:00 97.9 59 18 124/69 (87) 95 07/01/19 20:00 58 07/01/19 19:38 96 Nasal Cannula 2.0 28 07/01/19 17:49 147/76 07/01/19 17:30 147/76 07/01/19 16:00 65 07/01/19 16:00 97.5 76 24 147/76 (99) 94 07/01/19 12:56 136/82 07/01/19 12:54 136/82 07/01/19 12:00 97.9 78 22 131/69 (89) 94 07/01/19 12:00 74 Height (Feet): 5 Height (Inches): 8.00 Weight (Pounds): 155 HEENT: mucous membranes moist Respiratory/Chest: rhonchi - bilaterally, other - oxygen by nasal cannula Cardiovascular: normal rate Abdomen: soft, non tender, other - GT feeding Extremities: other - right hand edema Neurologic/Psychiatric: aphasia, other - R hemiplegia Laboratory Tests Test 07/02/19 06:27 White Blood Count 15.4 K/UL (4.8-10.8) H Red Blood Count 4.79 M/UL (4.70-6.10) Hemoglobin 15.2 G/DL (14.2-18.0) Hematocrit 43.7 % (42.0-52.0) Mean Corpuscular Volume 91 FL (80-99) Mean Corpuscular Hemoglobin 31.6 PG (27.0-31.0) H Mean Corpuscular Hemoglobin Concent 34.7 G/DL (32.0-36.0) Red Cell Distribution Width 11.5 % (11.6-14.8) L Platelet Count 346 K/UL (150-450) Mean Platelet Volume 8.2 FL (6.5-10.1) Neutrophils (%) (Auto) 78.9 % (45.0-75.0) H Lymphocytes (%) (Auto) 9.0 % (20.0-45.0) L Monocytes (%) (Auto) 9.5 % (1.0-10.0) Eosinophils (%) (Auto) 1.0 % (0.0-3.0) Basophils (%) (Auto) 1.6 % (0.0-2.0) Sodium Level 150 MMOL/L (136-145) H Potassium Level 3.8 MMOL/L (3.5-5.1) Chloride Level 117 MMOL/L (98-107) H Carbon Dioxide Level 25 MMOL/L (21-32) Anion Gap 8 mmol/L (5-15) Blood Urea Nitrogen 42 mg/dL (7-18) H Creatinine 1.5 MG/DL (0.55-1.30) H Estimat Glomerular Filtration Rate mL/min (>60) Glucose Level 136 MG/DL (74-106) H Calcium Level 8.3 MG/DL (8.5-10.1) L Total Bilirubin 0.9 MG/DL (0.2-1.0) Aspartate Amino Transf (AST/SGOT) 42 U/L (15-37) H Alanine Aminotransferase (ALT/SGPT) 35 U/L (12-78) Alkaline Phosphatase 73 U/L (46-116) Total Protein 7.9 G/DL (6.4-8.2) Albumin 1.8 G/DL (3.4-5.0) L Globulin 6.1 g/dL Albumin/Globulin Ratio 0.3 (1.0-2.7) L Current Medications Medications (Trade) Dose Ordered Sig/Leonor Route PRN Reason Start Time Stop Time Status Last Admin Dose Admin Acetaminophen (Tylenol) 650 mg Q4H PRN NG Mild Pain/Temp > 100.5 06/28/19 08:00 07/28/19 07:59 06/29/19 04:14 Amlodipine Besylate (Norvasc) 10 mg DAILY NG 06/25/19 13:30 07/25/19 13:29 07/02/19 09:16 Aspirin (ASA) 325 mg DAILY NG 06/22/19 09:00 07/20/19 21:44 07/02/19 09:16 Clonidine HCl (Catapres Tab) 0.1 mg EVERY 6 HOURS ORAL 06/23/19 13:45 07/23/19 13:44 07/01/19 17:30 Clotrimazole (Lotrimin) 1 applic THREE TIMES A DAY TOPIC 06/27/19 15:00 07/04/19 14:59 07/01/19 17:49 Dextrose 1,000 ml @ 75 mls/hr [id number] IV 06/30/19 14:30 07/29/19 14:29 07/02/19 06:13 Dextrose (Dextrose 50%) 25 ml Q30M PRN IV Hypoglycemia 06/21/19 18:30 07/18/19 12:29 Dextrose (Dextrose 50%) 50 ml Q30M PRN IV Hypoglycemia 06/21/19 18:30 07/18/19 12:29 Hydralazine HCl (Apresoline) 10 mg Q4H PRN IV SBP >150 06/30/19 20:30 07/30/19 20:29 06/30/19 20:44 Hydralazine HCl (Apresoline) 50 mg Q6H PRN NG For High Blood Pressure 06/21/19 18:15 07/21/19 18:14 06/29/19 20:57 Insulin Aspart (NovoLOG) EVERY 6 HOURS SUBQ 06/25/19 18:00 07/19/19 16:59 07/01/19 23:56 Linezolid (Zyvox) 600 mg EVERY 12 HOURS NG 06/28/19 09:45 07/06/19 23:59 07/02/19 09:16 Loperamide HCl (Imodium) 2 mg Q6H PRN NG Diarrhea 06/29/19 11:00 07/29/19 10:59 Magnesium Hydroxide (Mom) 30 ml HSPRN PRN NG Constipation 06/21/19 18:15 07/21/19 18:14 Nitroglycerin (Nitro-Bid) 1 inch Q6HR TOPIC 07/01/19 00:00 07/31/19 20:59 07/02/19 06:23 Olanzapine (ZyPREXA) 5 mg BEDTIME ORAL 06/24/19 21:00 07/24/19 20:59 07/01/19 20:46 Ondansetron HCl (Zofran) 4 mg Q6H PRN IVP Nausea & Vomiting 06/21/19 18:15 07/21/19 18:14 Piperacillin Sod/ Tazobactam Sod 3.375 gm/Sodium Chloride 110 ml @ 27.5 mls/hr Q8H IVPB 06/25/19 15:00 07/06/19 23:59 07/02/19 06:12 Bob Gilmore MD Jul 02, 2019 11:19
--- NOTE | 2019-07-02 11:41 | General Progress Note ---
Assessment/Plan Problem List: (1) ARF (acute renal failure) ICD Codes: N17.9 - Acute kidney failure, unspecified SNOMED: 69863161 (2) Pneumonia ICD Codes: J18.9 - Pneumonia, unspecified organism SNOMED: 946270192 (3) DM (diabetes mellitus) ICD Codes: E11.9 - Type 2 diabetes mellitus without complications SNOMED: 58143640 (4) Hypernatremia ICD Codes: E87.0 - Hyperosmolality and hypernatremia SNOMED: 715144573 (5) Left middle cerebral artery stroke ICD Codes: I63.512 - Cerebral infarction due to unspecified occlusion or stenosis of left middle cerebral artery SNOMED: 180202834 (6) Hypertensive urgency ICD Codes: I16.0 - Hypertensive urgency SNOMED: 419364216 Assessment/Plan: Coverage for Dr Gilmore adjust BP meds- increase D5w 100 cc h monitor renal parameters per consultants Subjective Date patient seen: Jul 02, 2019 ROS Limited/Unobtainable: Yes Allergies: Coded Allergies: UNABLE TO ASSESS (Unverified , 06/18/19) Objective Last 24 Hour Vital Signs Date Time Temp Pulse Resp B/P (MAP) Pulse Ox O2 Delivery O2 Flow Rate FiO2 07/02/19 09:16 61 155/83 07/02/19 09:00 Nasal Cannula 2.0 07/02/19 08:00 61 07/02/19 08:00 97.9 57 20 155/83 (107) 97 07/02/19 07:01 95 Nasal Cannula 2.0 28 07/02/19 06:23 150/70 07/02/19 06:00 150/70 07/02/19 04:00 97.0 60 18 114/88 (97) 97 07/02/19 04:00 58 07/02/19 00:00 54 07/02/19 00:00 98.2 52 18 118/67 (84) 96 07/01/19 23:53 118/67 07/01/19 23:50 118/67 07/01/19 21:00 Nasal Cannula 2.0 07/01/19 20:00 97.9 59 18 124/69 (87) 95 07/01/19 20:00 58 07/01/19 19:38 96 Nasal Cannula 2.0 28 1/17/20 17:49 147/76 07/01/19 17:30 147/76 07/01/19 16:00 65 07/01/19 16:00 97.5 76 24 147/76 (99) 94 07/01/19 12:56 136/82 07/01/19 12:54 136/82 07/01/19 12:00 97.9 78 22 131/69 (89) 94 07/01/19 12:00 74 Intake and Output 07/01/19 07/02/19 18:59 06:59 Intake Total 970 ml 75 ml Output Total 1700 ml 500 ml Balance -730 ml -425 ml IV Total 20 ml Other 950 ml 75 ml Output Urine Total 1700 ml 500 ml # Voids 2 Laboratory Tests 07/02/19 06:27: White Blood Count 15.4H, Red Blood Count 4.79, Hemoglobin 15.2, Hematocrit 43.7 , Mean Corpuscular Volume 91, Mean Corpuscular Hemoglobin 31.6H, Mean Corpuscular Hemoglobin Concent 34.7, Red Cell Distribution Width 11.5L, Platelet Count 346, Mean Platelet Volume 8.2, Neutrophils (%) (Auto) 78.9H, Lymphocytes (%) (Auto) 9.0L, Monocytes (%) (Auto) 9.5, Eosinophils (%) (Auto) 1.0, Basophils (%) (Auto) 1.6, Sodium Level 150H, Potassium Level 3.8, Chloride Level 117H, Carbon Dioxide Level 25, Anion Gap 8, Blood Urea Nitrogen 42H, Creatinine 1.5H, Estimat Glomerular Filtration Rate , Glucose Level 136H, Calcium Level 8.3L, Total Bilirubin 0.9, Aspartate Amino Transf (AST/SGOT) 42H, Alanine Aminotransferase (ALT/SGPT) 35, Alkaline Phosphatase 73, Total Protein 7.9, Albumin 1.8L, Globulin 6.1, Albumin/Globulin Ratio 0.3L Height (Feet): 5 Height (Inches): 8.00 Weight (Pounds): 155 General Appearance: no apparent distress, lethargic Cardiovascular: normal rate Respiratory/Chest: decreased breath sounds Abdomen: soft Neurologic: other Ricardo Choudhary MD Jul 02, 2019 11:41
[2019-07-02] MEDS ORDERED: Minoxidil 2.5mg tab ORAL PRN (11:45)
[2019-07-02 12:00] VITALS: BP 160/76
[2019-07-02] MEDS: HydrALAZINE 25mg tab ORAL SCH ×3 (12:33→23:59)
--- NOTE | 2019-07-02 15:56 | Cardiology Progress Note ---
Assessment/Plan Problem List: (1) Ventricular tachyarrhythmia (2) Aspiration pneumonia (3) Hypertensive urgency (4) Left middle cerebral artery stroke (5) Hypertension Status: stable, progressing Status Narrative Mr Winkler is stable, s/p gtube placement He has been noted w/ frequent PVCs, bigeminy and had a short NSVT run on 07/01 He is hypernatremic Assessment/Plan Will start low dose metoprolol for bp control and arrhythmia. supplement free water Repeat labs in am Subjective ROS Limited/Unobtainable: Yes Subjective Cardiology for Dr. Melgar Pt alert, nonverbal Objective Last 24 Hour Vital Signs Date Time Temp Pulse Resp B/P (MAP) Pulse Ox O2 Delivery O2 Flow Rate FiO2 07/02/19 14:55 160/76 07/02/19 12:33 160/76 07/02/19 12:33 160/76 07/02/19 12:00 59 07/02/19 12:00 97.7 58 20 160/76 (104) 98 07/02/19 09:16 61 155/83 07/02/19 09:00 Nasal Cannula 2.0 07/02/19 08:00 61 07/02/19 08:00 97.9 57 20 155/83 (107) 97 07/02/19 07:01 95 Nasal Cannula 2.0 28 07/02/19 06:23 150/70 07/02/19 06:00 150/70 07/02/19 04:00 97.0 60 18 114/88 (97) 97 07/02/19 04:00 58 07/02/19 00:00 54 07/02/19 00:00 98.2 52 18 118/67 (84) 96 07/01/19 23:53 118/67 07/01/19 23:50 118/67 07/01/19 21:00 Nasal Cannula 2.0 07/01/19 20:00 97.9 59 18 124/69 (87) 95 07/01/19 20:00 58 07/01/19 19:38 96 Nasal Cannula 2.0 28 07/01/19 17:49 147/76 07/01/19 17:30 147/76 07/01/19 16:00 65 07/01/19 16:00 97.5 76 24 147/76 (99) 94 General Appearance: WD/WN, no apparent distress, alert EENT: PERRL/EOMI Neck: no JVD Rhythm: NSR Cardiovascular: normal rate, regular rhythm, no gallop/murmur Respiratory/Chest: other - scattered rhonchi bilaterally Abdomen: non tender, soft, other - gtube site covered w/ dry dressing. Extremities: no swelling Intake and Output 07/01/19 07/02/19 19:00 07:00 Intake Total 1045 ml Output Total 2200 ml Balance -1155 ml IV Total 20 ml Other 1025 ml Output Urine Total 2200 ml # Voids 2 Laboratory Tests Test 07/02/19 06:27 White Blood Count 15.4 K/UL (4.8-10.8) H Red Blood Count 4.79 M/UL (4.70-6.10) Hemoglobin 15.2 G/DL (14.2-18.0) Hematocrit 43.7 % (42.0-52.0) Mean Corpuscular Volume 91 FL (80-99) Mean Corpuscular Hemoglobin 31.6 PG (27.0-31.0) H Mean Corpuscular Hemoglobin Concent 34.7 G/DL (32.0-36.0) Red Cell Distribution Width 11.5 % (11.6-14.8) L Platelet Count 346 K/UL (150-450) Mean Platelet Volume 8.2 FL (6.5-10.1) Neutrophils (%) (Auto) 78.9 % (45.0-75.0) H Lymphocytes (%) (Auto) 9.0 % (20.0-45.0) L Monocytes (%) (Auto) 9.5 % (1.0-10.0) Eosinophils (%) (Auto) 1.0 % (0.0-3.0) Basophils (%) (Auto) 1.6 % (0.0-2.0) Sodium Level 150 MMOL/L (136-145) H Potassium Level 3.8 MMOL/L (3.5-5.1) Chloride Level 117 MMOL/L (98-107) H Carbon Dioxide Level 25 MMOL/L (21-32) Anion Gap 8 mmol/L (5-15) Blood Urea Nitrogen 42 mg/dL (7-18) H Creatinine 1.5 MG/DL (0.55-1.30) H Estimat Glomerular Filtration Rate mL/min (>60) Glucose Level 136 MG/DL (74-106) H Calcium Level 8.3 MG/DL (8.5-10.1) L Total Bilirubin 0.9 MG/DL (0.2-1.0) Aspartate Amino Transf (AST/SGOT) 42 U/L (15-37) H Alanine Aminotransferase (ALT/SGPT) 35 U/L (12-78) Alkaline Phosphatase 73 U/L (46-116) Total Protein 7.9 G/DL (6.4-8.2) Albumin 1.8 G/DL (3.4-5.0) L Globulin 6.1 g/dL Albumin/Globulin Ratio 0.3 (1.0-2.7) Nell Burks MD Jul 02, 2019 15:56
[2019-07-02 16:00] VITALS: BP 135/70
--- NOTE | 2019-07-02 19:15 | NUR ---
HAND-OFF: Report given to Sydnee/RN, Patient is in stable condition, Endorsed plan of care.
--- NOTE | 2019-07-02 19:20 | NUR ---
NURSE NOTES: Received report from JUSTINO Carvajal. Patient is asleep lying semi-perez's; resting comfortably. Arousable to tactile stimuli. No signs of acute distress or pain noted at this time. On 3L nasal cannula. AOx0; unable to make needs known. Checked IV site, lines, and IV rate; patent and running. No erythema, bleeding, or infiltration noted. Glucerna 1.2 running at 10 mls/hr for a goal of 60 mls/hr. Condom catheter in place. Bed at lowest position, brakes on, siderails up x3. Call light within reach. Will continue to monitor.
[2019-07-02 20:00] VITALS: BP 153/77
[2019-07-02] MEDS: Metoprolol Tartrate 12.5mg TAB GT SCH (20:43)
[2019-07-03] VITALS: BP 131/75
[2019-07-03] MEDS: NovoLOG Insulin Flexpen SUBQ SCH ×4 (00:04→18:43)
[2019-07-03 04:00] VITALS: BP 137/69
--- NOTE | 2019-07-03 04:54 | NUR ---
NURSE NOTES: Patient is asleep lying semi-perez's; resting comfortably. No signs of acute distress or pain noted at this time. Glucerna 1.2 running at 30 mls/hr for a goal of 60 mls/hr.
[2019-07-03] MEDS: D5 1/2NS 1,000 ML IV SCH (05:15)
[2019-07-03] MEDS: Nitroglycerin 2% oint pkt TOPIC SCH ×3 (06:18→18:42)
[2019-07-03] MEDS: HydrALAZINE 25mg tab ORAL SCH ×3 (06:19→18:42)
[2019-07-03] MEDS: Piperacillin/Tazobactam 3.375 GM in NS 110 ML IVPB SCH ×2 (07:02→14:03)
--- NOTE | 2019-07-03 07:15 | NUR ---
HAND-OFF: Report given to JUSTINO Carvajal. Patient is asleep lying semi-perez's; resting comfortably. On 3L nasal cannula. Glucerna 1.2 running at 30 mls/hr for a goal of 60 mls/hr. In stable condition.
--- NOTE | 2019-07-03 07:20 | NUR ---
NURSE NOTES: Received report from Sydnee/RN, Patient is asleep, lying semi-perez's, resting comfortably. On 3L nasal canula, no acute distress/SOB noted. IV on left FA patent, no bleeding or infiltration noted, D5W running at 100cc/hr. On tube feeding, Glucerna 1.2 running at 30cc/hr at this time, Goal of 60cc/hr. Condom cath draining well to gravity. Bed in low position and locked, side-rails up x3. Call light within reach, Encouraged to use call light when needed. Will continue plan of care.
[2019-07-03 07:33] LABS: HEMOGLOBIN 13.8 G/DL (14.2-18.0); MEAN CORPUSCULAR VOLUME 90 FL (80-99); PLATELET COUNT 331 K/UL (150-450); RED BLOOD COUNT 4.33 M/UL (4.70-6.10); RED CELL DISTRIBUTION WIDTH 11.1 % (11.6-14.8); WHITE BLOOD COUNT 12.3 K/UL (4.8-10.8)
[2019-07-03 07:54] LABS: AMMONIA 21 umol/L (11-32)
[2019-07-03 08:00] VITALS: BP 136/68
[2019-07-03 08:10] LABS: ALANINE AMINOTRANSFERASE 35 U/L (12-78); ALBUMIN 1.7 G/DL (3.4-5.0); ALBUMIN/GLOBULIN RATIO 0.3 (1.0-2.7); ALKALINE PHOSPHATASE 63 U/L (46-116); ANION GAP 9 mmol/L (5-15); ASPARTATE AMINO TRANSFERASE 37 U/L (15-37); BILIRUBIN,TOTAL 0.6 MG/DL (0.2-1.0); BLOOD UREA NITROGEN 34 mg/dL (7-18); CALCIUM 8.2 MG/DL (8.5-10.1); CARBON DIOXIDE 25 MMOL/L (21-32); CHLORIDE 114 MMOL/L (98-107); CREATININE 1.3 MG/DL (0.55-1.30); PHOSPHORUS 4.3 MG/DL (2.5-4.9); POTASSIUM 3.5 MMOL/L (3.5-5.1); SODIUM 148 MMOL/L (136-145)
[2019-07-03] MEDS: Metoprolol Tartrate 12.5mg TAB GT SCH ×2 (09:03→21:20)
[2019-07-03 11:58] VITALS: BP 115/65
--- NOTE | 2019-07-03 12:21 | Pulmonology Progress Note ---
Assessment/Plan Assessment/Plan Problem List: * Respiratory distress/insufficiency * Bibasilar pulmonary infiltrates - likely aspiration pneumonia * Altered mental status * Acute CVA * DM Plan: * Monitor respiratory status, stable * Abx per ID * Concern about aspiration of oral secretions, AMS a factor * PEG placement * Duonebs Subjective ROS Limited/Unobtainable: Yes Interval Events: WBC down, breathing stable, no fevers Allergies: Coded Allergies: UNABLE TO ASSESS (Unverified , 06/18/19) Objective Last 24 Hour Vital Signs Date Time Temp Pulse Resp B/P (MAP) Pulse Ox O2 Delivery O2 Flow Rate FiO2 07/03/19 11:58 97.7 52 22 115/65 (82) 97 07/03/19 09:03 57 136/68 07/03/19 09:03 57 136/68 07/03/19 09:00 Nasal Cannula 3.0 07/03/19 08:00 97.5 57 20 136/68 (90) 98 07/03/19 08:00 51 07/03/19 06:36 95 Nasal Cannula 3.0 32 07/03/19 06:19 144/72 07/03/19 06:18 144/72 07/03/19 06:18 144/72 07/03/19 04:00 97.7 54 20 137/69 (91) 97 07/03/19 04:00 52 07/03/19 00:00 97.2 52 20 131/75 (93) 98 07/03/19 00:00 54 07/02/19 23:59 131/72 07/02/19 23:59 131/72 07/02/19 23:57 131/72 07/02/19 21:00 Nasal Cannula 3.0 07/02/19 20:43 58 153/77 07/02/19 20:22 94 Nasal Cannula 3.0 32 07/02/19 20:00 97.5 58 21 153/77 (102) 96 07/02/19 20:00 78 07/02/19 18:12 135/70 07/02/19 18:12 135/70 07/02/19 16:00 96.6 60 20 135/70 (91) 93 07/02/19 16:00 60 07/02/19 14:55 160/76 07/02/19 12:33 160/76 07/02/19 12:33 160/76 Intake and Output 07/02/19 07/03/19 19:00 07:00 Intake Total 110 ml 1722.0 ml Output Total 300 ml 300 ml Balance -190 ml 1422.0 ml Free Water 250 ml IV Total 100 ml 1212.0 ml Tube Feeding 10 ml 260 ml Output Urine Total 300 ml 300 ml # Voids 1 2 # Bowel Movements 1 General Appearance: no acute distress HEENT: mucous membranes moist Respiratory/Chest: lungs clear Cardiovascular: normal rate Abdomen: soft, non tender Extremities: no edema Laboratory Tests 07/03/19 06:05: White Blood Count 12.3H, Red Blood Count 4.33L, Hemoglobin 13.8L, Hematocrit 39.0L, Mean Corpuscular Volume 90, Mean Corpuscular Hemoglobin 31.8H, Mean Corpuscular Hemoglobin Concent 35.3, Red Cell Distribution Width 11.1L, Platelet Count 331, Mean Platelet Volume 7.6, Neutrophils (%) (Auto) , Lymphocytes (%) (Auto) , Monocytes (%) (Auto) , Eosinophils (%) (Auto) , Basophils (%) (Auto) , Differential Total Cells Counted 100, Neutrophils % ( Manual) 81H, Lymphocytes % (Manual) 13L, Monocytes % (Manual) 5, Eosinophils % ( Manual) 1, Basophils % (Manual) 0, Band Neutrophils 0, Platelet Estimate Adequate, Platelet Morphology Normal, Red Blood Cell Morphology Normal, Sodium Level 148H, Potassium Level 3.5, Chloride Level 114H, Carbon Dioxide Level 25, Anion Gap 9, Blood Urea Nitrogen 34H, Creatinine 1.3, Estimat Glomerular Filtration Rate , Glucose Level 181H, Uric Acid 2.9, Calcium Level 8.2L, Phosphorus Level 4.3, Magnesium Level 2.2, Total Bilirubin 0.6, Aspartate Amino Transf (AST/SGOT) 37, Alanine Aminotransferase (ALT/SGPT) 35, Alkaline Phosphatase 63, Ammonia 21, Troponin I 0.058H, C-Reactive Protein, Quantitative 9.4H, Pro-B-Type Natriuretic Peptide 556H, Total Protein 7.0, Albumin 1.7L, Globulin 5.3, Albumin/Globulin Ratio 0.3L, Vitamin B12 Level 1363H, Folate [ Pending] Current Medications Medications (Trade) Dose Ordered Sig/Leonor Route PRN Reason Start Time Stop Time Status Last Admin Dose Admin Acetaminophen (Tylenol) 650 mg Q4H PRN NG Mild Pain/Temp > 100.5 06/28/19 08:00 07/28/19 07:59 06/29/19 04:14 Amlodipine Besylate (Norvasc) 10 mg DAILY NG 06/25/19 13:30 07/25/19 13:29 07/03/19 09:03 Aspirin (ASA) 325 mg DAILY NG 06/22/19 09:00 07/20/19 21:44 07/03/19 09:03 Clonidine HCl (Catapres Tab) 0.1 mg EVERY 8 HOURS ORAL 07/02/19 14:00 07/23/19 13:44 07/03/19 06:18 Clotrimazole (Lotrimin) 1 applic THREE TIMES A DAY TOPIC 07/02/19 13:00 07/09/19 12:59 07/03/19 09:03 Dextrose 1,000 ml @ 100 mls/hr Q10H IV 07/02/19 14:30 07/29/19 14:29 07/03/19 09:54 Dextrose (Dextrose 50%) 25 ml Q30M PRN IV Hypoglycemia 06/21/19 18:30 07/18/19 12:29 Dextrose (Dextrose 50%) 50 ml Q30M PRN IV Hypoglycemia 06/21/19 18:30 07/18/19 12:29 Hydralazine HCl (Apresoline) 25 mg Q6HR ORAL 07/02/19 12:00 08/01/19 11:59 07/03/19 06:19 Insulin Aspart (NovoLOG) EVERY 6 HOURS SUBQ 06/25/19 18:00 07/19/19 16:59 07/03/19 06:19 Linezolid (Zyvox) 600 mg EVERY 12 HOURS NG 06/28/19 09:45 07/06/19 23:59 07/03/19 09:03 Loperamide HCl (Imodium) 2 mg Q6H PRN NG Diarrhea 06/29/19 11:00 07/29/19 10:59 Magnesium Hydroxide (Mom) 30 ml HSPRN PRN NG Constipation 06/21/19 18:15 07/21/19 18:14 Metoprolol Tartrate (Lopressor) 12.5 mg Q12HR GT 07/02/19 21:00 08/01/19 20:59 07/03/19 09:03 Minoxidil (Loniten) 2.5 mg Q4H PRN ORAL bp over 160 syst 07/02/19 11:45 08/01/19 11:44 Nitroglycerin (Nitro-Bid) 1 inch Q6HR TOPIC 07/01/19 00:00 07/31/19 20:59 07/03/19 06:18 Olanzapine (ZyPREXA) 5 mg BEDTIME ORAL 06/24/19 21:00 07/24/19 20:59 07/02/19 20:43 Ondansetron HCl (Zofran) 4 mg Q6H PRN IVP Nausea & Vomiting 06/21/19 18:15 07/21/19 18:14 Piperacillin Sod/ Tazobactam Sod 3.375 gm/Sodium Chloride 110 ml @ 27.5 mls/hr Q8H IVPB 06/25/19 15:00 07/06/19 23:59 07/03/19 07:02 Deni Borges MD Jul 03, 2019 12:21
--- NOTE | 2019-07-03 12:37 | General Progress Note ---
Assessment/Plan Problem List: (1) ARF (acute renal failure) ICD Codes: N17.9 - Acute kidney failure, unspecified SNOMED: 50112298 (2) Pneumonia ICD Codes: J18.9 - Pneumonia, unspecified organism SNOMED: 239219145 (3) DM (diabetes mellitus) ICD Codes: E11.9 - Type 2 diabetes mellitus without complications SNOMED: 60000757 (4) Hypernatremia ICD Codes: E87.0 - Hyperosmolality and hypernatremia SNOMED: 832118576 (5) Left middle cerebral artery stroke ICD Codes: I63.512 - Cerebral infarction due to unspecified occlusion or stenosis of left middle cerebral artery SNOMED: 611284371 (6) Hypertensive urgency ICD Codes: I16.0 - Hypertensive urgency SNOMED: 296128563 Status: stable, progressing Assessment/Plan: Coverage for Dr Gilmore adjust BP meds- increase D5w 100 cc h monitor renal parameters per consultants Subjective Date patient seen: Jul 03, 2019 Time patient seen: 11:00 ROS Limited/Unobtainable: Yes Allergies: Coded Allergies: UNABLE TO ASSESS (Unverified , 06/18/19) Objective Last 24 Hour Vital Signs Date Time Temp Pulse Resp B/P (MAP) Pulse Ox O2 Delivery O2 Flow Rate FiO2 07/03/19 12:18 115/65 07/03/19 12:17 115/65 07/03/19 11:58 97.7 52 22 115/65 (82) 97 07/03/19 09:03 57 136/68 07/03/19 09:03 57 136/68 07/03/19 09:00 Nasal Cannula 3.0 07/03/19 08:00 97.5 57 20 136/68 (90) 98 07/03/19 08:00 51 07/03/19 06:36 95 Nasal Cannula 3.0 32 07/03/19 06:19 144/72 07/03/19 06:18 144/72 07/03/19 06:18 144/72 07/03/19 04:00 97.7 54 20 137/69 (91) 97 07/03/19 04:00 52 07/03/19 00:00 97.2 52 20 131/75 (93) 98 07/03/19 00:00 54 07/02/19 23:59 131/72 07/02/19 23:59 131/72 07/02/19 23:57 131/72 07/02/19 21:00 Nasal Cannula 3.0 07/02/19 20:43 58 153/77 07/02/19 20:22 94 Nasal Cannula 3.0 32 07/02/19 20:00 97.5 58 21 153/77 (102) 96 07/02/19 20:00 78 07/02/19 18:12 135/70 07/02/19 18:12 135/70 07/02/19 16:00 96.6 60 20 135/70 (91) 93 07/02/19 16:00 60 07/02/19 14:55 160/76 Intake and Output 07/02/19 07/03/19 19:00 07:00 Intake Total 110 ml 1722.0 ml Output Total 300 ml 300 ml Balance -190 ml 1422.0 ml Free Water 250 ml IV Total 100 ml 1212.0 ml Tube Feeding 10 ml 260 ml Output Urine Total 300 ml 300 ml # Voids 1 2 # Bowel Movements 1 Laboratory Tests 07/03/19 06:05: White Blood Count 12.3H, Red Blood Count 4.33L, Hemoglobin 13.8L, Hematocrit 39.0L, Mean Corpuscular Volume 90, Mean Corpuscular Hemoglobin 31.8H, Mean Corpuscular Hemoglobin Concent 35.3, Red Cell Distribution Width 11.1L, Platelet Count 331, Mean Platelet Volume 7.6, Neutrophils (%) (Auto) , Lymphocytes (%) (Auto) , Monocytes (%) (Auto) , Eosinophils (%) (Auto) , Basophils (%) (Auto) , Differential Total Cells Counted 100, Neutrophils % ( Manual) 81H, Lymphocytes % (Manual) 13L, Monocytes % (Manual) 5, Eosinophils % ( Manual) 1, Basophils % (Manual) 0, Band Neutrophils 0, Platelet Estimate Adequate, Platelet Morphology Normal, Red Blood Cell Morphology Normal, Sodium Level 148H, Potassium Level 3.5, Chloride Level 114H, Carbon Dioxide Level 25, Anion Gap 9, Blood Urea Nitrogen 34H, Creatinine 1.3, Estimat Glomerular Filtration Rate , Glucose Level 181H, Uric Acid 2.9, Calcium Level 8.2L, Phosphorus Level 4.3, Magnesium Level 2.2, Total Bilirubin 0.6, Aspartate Amino Transf (AST/SGOT) 37, Alanine Aminotransferase (ALT/SGPT) 35, Alkaline Phosphatase 63, Ammonia 21, Troponin I 0.058H, C-Reactive Protein, Quantitative 9.4H, Pro-B-Type Natriuretic Peptide 556H, Total Protein 7.0, Albumin 1.7L, Globulin 5.3, Albumin/Globulin Ratio 0.3L, Vitamin B12 Level 1363H, Folate [ Pending] Height (Feet): 5 Height (Inches): 8.00 Weight (Pounds): 155 General Appearance: no apparent distress Cardiovascular: bradycardia Respiratory/Chest: decreased breath sounds Abdomen: non tender Neurologic: other - non verbal Ricardo Choudhary MD Jul 03, 2019 12:37
--- NOTE | 2019-07-03 14:04 | Cardiology Progress Note ---
Assessment/Plan Problem List: (1) Ventricular tachyarrhythmia (2) Aspiration pneumonia (3) Hypertensive urgency (4) Left middle cerebral artery stroke (5) Hypertension Status: stable, unchanged Status Narrative Mr Winkler is stable from a cardiac standpoint, in SR on telemetry. Remains w/ encephalopathy. Mild troponin elevation noted - level decreasing. Suspect demand ischemia on admission, and slow decrease in troponin due to renal insufficiency Assessment/Plan BP stable on metoprolol and amlodipine No further ventricular arrhythmias noted on telemetry supplement K Continue supportive care Subjective ROS Limited/Unobtainable: Yes Subjective Cardiology for Dr. Melagr Pt sedated, nonverbal Objective Last 24 Hour Vital Signs Date Time Temp Pulse Resp B/P (MAP) Pulse Ox O2 Delivery O2 Flow Rate FiO2 07/03/19 12:18 115/65 07/03/19 12:17 115/65 07/03/19 11:58 97.7 52 22 115/65 (82) 97 07/03/19 09:03 57 136/68 07/03/19 09:03 57 136/68 07/03/19 09:00 Nasal Cannula 3.0 07/03/19 08:00 97.5 57 20 136/68 (90) 98 07/03/19 08:00 51 07/03/19 06:36 95 Nasal Cannula 3.0 32 07/03/19 06:19 144/72 07/03/19 06:18 144/72 07/03/19 06:18 144/72 07/03/19 04:00 97.7 54 20 137/69 (91) 97 07/03/19 04:00 52 07/03/19 00:00 97.2 52 20 131/75 (93) 98 07/03/19 00:00 54 07/02/19 23:59 131/72 07/02/19 23:59 131/72 07/02/19 23:57 131/72 07/02/19 21:00 Nasal Cannula 3.0 07/02/19 20:43 58 153/77 07/02/19 20:22 94 Nasal Cannula 3.0 32 07/02/19 20:00 97.5 58 21 153/77 (102) 96 07/02/19 20:00 78 07/02/19 18:12 135/70 07/02/19 18:12 135/70 07/02/19 16:00 96.6 60 20 135/70 (91) 93 07/02/19 16:00 60 07/02/19 14:55 160/76 General Appearance: WD/WN, no apparent distress EENT: PERRL/EOMI Neck: supple, no JVD Rhythm: NSR Cardiovascular: normal rate, regular rhythm, no gallop/murmur Respiratory/Chest: other - bilat scattered rhonchi Abdomen: non tender, soft, other - + gtube -site clean Extremities: no swelling Intake and Output 07/02/19 07/03/19 19:00 07:00 Intake Total 110 ml 1722.0 ml Output Total 300 ml 300 ml Balance -190 ml 1422.0 ml Free Water 250 ml IV Total 100 ml 1212.0 ml Tube Feeding 10 ml 260 ml Output Urine Total 300 ml 300 ml # Voids 1 2 # Bowel Movements 1 Laboratory Tests Test 07/03/19 06:05 White Blood Count 12.3 K/UL (4.8-10.8) H Red Blood Count 4.33 M/UL (4.70-6.10) L Hemoglobin 13.8 G/DL (14.2-18.0) L Hematocrit 39.0 % (42.0-52.0) L Mean Corpuscular Volume 90 FL (80-99) Mean Corpuscular Hemoglobin 31.8 PG (27.0-31.0) H Mean Corpuscular Hemoglobin Concent 35.3 G/DL (32.0-36.0) Red Cell Distribution Width 11.1 % (11.6-14.8) L Platelet Count 331 K/UL (150-450) Mean Platelet Volume 7.6 FL (6.5-10.1) Neutrophils (%) (Auto) % (45.0-75.0) Lymphocytes (%) (Auto) % (20.0-45.0) Monocytes (%) (Auto) % (1.0-10.0) Eosinophils (%) (Auto) % (0.0-3.0) Basophils (%) (Auto) % (0.0-2.0) Differential Total Cells Counted 100 Neutrophils % (Manual) 81 % (45-75) H Lymphocytes % (Manual) 13 % (20-45) L Monocytes % (Manual) 5 % (1-10) Eosinophils % (Manual) 1 % (0-3) Basophils % (Manual) 0 % (0-2) Band Neutrophils 0 % (0-8) Platelet Estimate Adequate Platelet Morphology Normal Red Blood Cell Morphology Normal Sodium Level 148 MMOL/L (136-145) H Potassium Level 3.5 MMOL/L (3.5-5.1) Chloride Level 114 MMOL/L (98-107) H Carbon Dioxide Level 25 MMOL/L (21-32) Anion Gap 9 mmol/L (5-15) Blood Urea Nitrogen 34 mg/dL (7-18) H Creatinine 1.3 MG/DL (0.55-1.30) Estimat Glomerular Filtration Rate mL/min (>60) Glucose Level 181 MG/DL (74-106) H Uric Acid 2.9 MG/DL (2.6-7.2) Calcium Level 8.2 MG/DL (8.5-10.1) L Phosphorus Level 4.3 MG/DL (2.5-4.9) Magnesium Level 2.2 MG/DL (1.8-2.4) Total Bilirubin 0.6 MG/DL (0.2-1.0) Aspartate Amino Transf (AST/SGOT) 37 U/L (15-37) Alanine Aminotransferase (ALT/SGPT) 35 U/L (12-78) Alkaline Phosphatase 63 U/L (46-116) Ammonia 21 umol/L (11-32) Troponin I 0.058 ng/mL (0.000-0.056) C-Reactive Protein, Quantitative 9.4 mg/dL (0.00-0.90) H Pro-B-Type Natriuretic Peptide 556 pg/mL (0-125) H Total Protein 7.0 G/DL (6.4-8.2) Albumin 1.7 G/DL (3.4-5.0) L Globulin 5.3 g/dL Albumin/Globulin Ratio 0.3 (1.0-2.7) L Vitamin B12 Level 1363 PG/ML (193-986) H Folate Pending Nell Mosley MD Jul 03, 2019 14:04
[2019-07-03 16:00] VITALS: BP 151/86
--- NOTE | 2019-07-03 19:03 | General Progress Note ---
Assessment/Plan Status: stable, unchanged Assessment/Plan: Assessment - Acute CVA - AMS - Dysphagia - arrhythmia - free water deficit - leukocytosis - suspect aspiration pneumonitis - poor prognosis Recommendations - IVF - free water - Abx - IV hydration - monitor labs - GT feeds Subjective Allergies: Coded Allergies: UNABLE TO ASSESS (Unverified , 06/18/19) Subjective above noted No events overnight opens eyes but dues not follow commands tolerating TF Objective Last 24 Hour Vital Signs Date Time Temp Pulse Resp B/P (MAP) Pulse Ox O2 Delivery O2 Flow Rate FiO2 07/03/19 18:42 151/86 07/03/19 18:42 151/86 07/03/19 16:00 97.3 60 22 151/86 (107) 96 07/03/19 16:00 57 07/03/19 12:18 115/65 07/03/19 12:17 115/65 07/03/19 12:00 56 07/03/19 11:58 97.7 52 22 115/65 (82) 97 07/03/19 09:03 57 136/68 07/03/19 09:03 57 136/68 07/03/19 09:00 Nasal Cannula 3.0 07/03/19 08:00 97.5 57 20 136/68 (90) 98 07/03/19 08:00 51 07/03/19 06:36 95 Nasal Cannula 3.0 32 07/03/19 06:19 144/72 07/03/19 06:18 144/72 07/03/19 06:18 144/72 07/03/19 04:00 97.7 54 20 137/69 (91) 97 07/03/19 04:00 52 07/03/19 00:00 97.2 52 20 131/75 (93) 98 07/03/19 00:00 54 07/02/19 23:59 131/72 07/02/19 23:59 131/72 07/02/19 23:57 131/72 07/02/19 21:00 Nasal Cannula 3.0 07/02/19 20:43 58 153/77 07/02/19 20:22 94 Nasal Cannula 3.0 32 07/02/19 20:00 97.5 58 21 153/77 (102) 96 07/02/19 20:00 78 Intake and Output 07/02/19 07/03/19 19:00 07:00 Intake Total 110 ml 1722.0 ml Output Total 300 ml 300 ml Balance -190 ml 1422.0 ml Free Water 250 ml IV Total 100 ml 1212.0 ml Tube Feeding 10 ml 260 ml Output Urine Total 300 ml 300 ml # Voids 1 2 # Bowel Movements 1 Laboratory Tests 07/03/19 06:05: White Blood Count 12.3H, Red Blood Count 4.33L, Hemoglobin 13.8L, Hematocrit 39.0L, Mean Corpuscular Volume 90, Mean Corpuscular Hemoglobin 31.8H, Mean Corpuscular Hemoglobin Concent 35.3, Red Cell Distribution Width 11.1L, Platelet Count 331, Mean Platelet Volume 7.6, Neutrophils (%) (Auto) , Lymphocytes (%) (Auto) , Monocytes (%) (Auto) , Eosinophils (%) (Auto) , Basophils (%) (Auto) , Differential Total Cells Counted 100, Neutrophils % ( Manual) 81H, Lymphocytes % (Manual) 13L, Monocytes % (Manual) 5, Eosinophils % ( Manual) 1, Basophils % (Manual) 0, Band Neutrophils 0, Platelet Estimate Adequate, Platelet Morphology Normal, Red Blood Cell Morphology Normal, Sodium Level 148H, Potassium Level 3.5, Chloride Level 114H, Carbon Dioxide Level 25, Anion Gap 9, Blood Urea Nitrogen 34H, Creatinine 1.3, Estimat Glomerular Filtration Rate , Glucose Level 181H, Uric Acid 2.9, Calcium Level 8.2L, Phosphorus Level 4.3, Magnesium Level 2.2, Total Bilirubin 0.6, Aspartate Amino Transf (AST/SGOT) 37, Alanine Aminotransferase (ALT/SGPT) 35, Alkaline Phosphatase 63, Ammonia 21, Troponin I 0.058H, C-Reactive Protein, Quantitative 9.4H, Pro-B-Type Natriuretic Peptide 556H, Total Protein 7.0, Albumin 1.7L, Globulin 5.3, Albumin/Globulin Ratio 0.3L, Vitamin B12 Level 1363H, Folate [ Pending] 07/03/19 15:25: Magnesium Level 2.2 Height (Feet): 5 Height (Inches): 8.00 Weight (Pounds): 155 Objective Elderly man NCAT supple Coarse BS RR abd soft no edema Barb Lee MD Jul 03, 2019 19:03
--- NOTE | 2019-07-03 19:37 | NUR ---
HAND-OFF: Report given to Sydnee/RN, Patient is in stable condition, Endorsed plan of care.
--- NOTE | 2019-07-03 19:46 | NUR ---
NURSE NOTES: Received report from JUSTINO Carvajal. Patient is asleep lying semi-perez's; resting comfortably. Opens eyes spontaneously. No signs of acute distress or pain noted at this time. On 3L nasal cannula. AOx0; unable to make needs known. Checked IV site, lines, and IV rate; patent and running. No erythema, bleeding, or infiltration noted. Glucerna 1.2 running at 50 mls/hr for a goal of 60 mls/hr. Condom catheter in place. Bed at lowest position, brakes on, siderails up x3. Call light within reach. Will continue to monitor.
[2019-07-03 20:00] VITALS: BP 160/71
[2019-07-04] VITALS (7 sets, daily range): BP systolic 109–184; BP diastolic 58–81
[2019-07-04] MEDS: Piperacillin/Tazobactam 3.375 GM in NS 110 ML IVPB SCH ×3 (00:14→15:07)
[2019-07-04] MEDS: HydrALAZINE 25mg tab ORAL SCH ×4 (00:15→18:52)
[2019-07-04] MEDS: Nitroglycerin 2% oint pkt TOPIC SCH ×4 (00:15→18:52)
[2019-07-04] MEDS: NovoLOG Insulin Flexpen SUBQ SCH ×3 (00:49→12:22)
--- NOTE | 2019-07-04 07:30 | NUR ---
NURSE NOTES: Received pt from ISA BADILLO. Pt is nonverbal. Pt has NC 3LMP. pt has intact iv access LFA 22G is running well. Pt is on continues heart monitoring. pt has g tube in place is working well. no complain of pain at this moment. all needs attended, bed is locked and is in the lowest position, call light within easy reach. will continue to monitor.
--- NOTE | 2019-07-04 07:41 | NUR ---
HAND-OFF: Report given to JUSTINO Atkins. Patient is asleep lying semi-perez's; resting comfortably. Glucerna 1.2 running at 60 mls/hr. In stable condition.
[2019-07-04] MEDS: Metoprolol Tartrate 12.5mg TAB GT SCH ×2 (09:01→20:55)
--- NOTE | 2019-07-04 09:12 | NUR ---
WEEKLY SWALLOW/SPEECH THERAPY SUMMARY: THE PATIENT IS SEEN FOR DYSPHAGIA, SEE SWALLOWING EVALUATION REPORT. THE PATIENT IS NOT CONSISTENTLY ALERT FOR TSP NECTAR THICK WATER TRIAL TO SEE IF HE IS READY FOR A MODIFIED BARIUM SWALLOW STUDY SO GOALS ARE NOT MET FOR ORAL INTAKE TO DATE. GOALS MET FOR RN (SAUD) AND DISASTER RECOVERY ANALYST (DIANA) IN POSTED ASPIRATION PRECAUTIONS WITH PEG TUBE FEEDINGS WHEN THEY ARE RUNNING AND ORAL CARE. SHE TAKES THAT HE IS RECEPTIVE TO ORAL CARE AND TOOTHBRUSHING. PLAN: CONTINUE WITH PLAN OF CARE IN SWALLOWING EVALUATION REPORT COMPLETE MOD BARIUM SWALLOW STUDY INPATIENT OR OUTPATIENT SETTING IF D/C (DO NOT HOLD UP D/C FOR THIS STUDY).
--- NOTE | 2019-07-04 10:00 | NUR ---
NURSE NOTES: RN and wound nurse JAYDEN checked body, pt has redness with peeling around sacral and buttock, bed bath given to pt, applied Triad and Optifoam, inserted new condom cath for pt, given mouth wash, repositioned pt q2hr, will continue to monitor.
--- NOTE | 2019-07-04 10:43 | General Progress Note ---
Assessment/Plan Status: stable, unchanged Assessment/Plan: Assessment - Acute CVA - AMS - Dysphagia - arrhythmia - free water deficit - leukocytosis - suspect aspiration pneumonitis - poor prognosis Recommendations - IVF - free water - Abx - IV hydration - monitor labs - GT feeds Subjective HEENT: Denies: double vision Allergies: Coded Allergies: UNABLE TO ASSESS (Unverified , 06/18/19) Subjective above noted No events overnight opens eyes but dues not follow commands tolerating TF Objective Last 24 Hour Vital Signs Date Time Temp Pulse Resp B/P (MAP) Pulse Ox O2 Delivery O2 Flow Rate FiO2 07/04/19 09:01 61 160/80 07/04/19 09:01 61 160/80 07/04/19 08:00 97.5 61 20 160/80 (106) 100 07/04/19 07:45 60 07/04/19 07:05 141/59 07/04/19 07:05 141/59 07/04/19 04:00 98.2 54 20 141/59 (86) 97 07/04/19 04:00 59 07/04/19 00:15 147/69 07/04/19 00:15 147/69 07/04/19 00:00 97.9 87 20 109/58 (75) 95 07/04/19 00:00 56 07/03/19 21:20 64 160/71 07/03/19 21:00 Nasal Cannula 3.0 07/03/19 20:00 97.3 64 20 160/71 (100) 98 07/03/19 20:00 60 07/03/19 18:42 151/86 07/03/19 18:42 151/86 07/03/19 16:00 97.3 60 22 151/86 (107) 96 07/03/19 16:00 57 07/03/19 12:18 115/65 07/03/19 12:17 115/65 07/03/19 12:00 56 07/03/19 11:58 97.7 52 22 115/65 (82) 97 Intake and Output 07/03/19 07/04/19 19:00 07:00 Intake Total 125 ml 1899.6 ml Output Total 800 ml Balance 125 ml 1099.6 ml Free Water 250 ml IV Total 75 ml 979.6 ml Tube Feeding 50 ml 670 ml Output Urine Total 800 ml # Voids 2 # Bowel Movements 1 Laboratory Tests 07/03/19 15:25: Magnesium Level 2.2 Height (Feet): 5 Height (Inches): 8.00 Weight (Pounds): 155 Objective Elderly man NCAT supple Coarse BS RR abd soft no edema Barb Lee MD Jul 04, 2019 10:43
--- NOTE | 2019-07-04 11:54 | NUR ---
NURSE NOTES: Dr Maame LY visited pt and D/C iv fluid D5W and ordered to add to the feeding flush 250ml Q4HR, noted and carried out. will continue to monitor.
--- NOTE | 2019-07-04 12:12 | General Progress Note ---
Assessment/Plan Problem List: (1) Cellulitis of right hand ICD Codes: L03.113 - Cellulitis of right upper limb SNOMED: 12886883 (2) Altered level of consciousness ICD Codes: R40.4 - Transient alteration of awareness SNOMED: 4263890 (3) Sepsis ICD Codes: A41.9 - Sepsis, unspecified organism SNOMED: 16225259 Qualifiers: Qualified Codes: A41.9 - Sepsis, unspecified organism (4) Left middle cerebral artery stroke ICD Codes: I63.512 - Cerebral infarction due to unspecified occlusion or stenosis of left middle cerebral artery SNOMED: 859291127 (5) Left carotid artery occlusion ICD Codes: I65.22 - Occlusion and stenosis of left carotid artery SNOMED: 405723924575337 (6) Hypernatremia Assessment & Plan: better ICD Codes: E87.0 - Hyperosmolality and hypernatremia SNOMED: 546840274 (7) Hypokalemia Assessment & Plan: better ICD Codes: E87.6 - Hypokalemia SNOMED: 20398370 (8) DM (diabetes mellitus) ICD Codes: E11.9 - Type 2 diabetes mellitus without complications SNOMED: 87855361 (9) Pneumonia ICD Codes: J18.9 - Pneumonia, unspecified organism SNOMED: 886057250 (10) ARF (acute renal failure) Assessment & Plan: no change ICD Codes: N17.9 - Acute kidney failure, unspecified SNOMED: 52515706 Status: stable, unchanged Assessment/Plan: continue ASA Discussed with RN Dc D5W TF SSI cont Duoneb cont abxs follow labs Discussed with Dr Borges Subjective Allergies: Coded Allergies: UNABLE TO ASSESS (Unverified , 06/18/19) Subjective looks better Objective Last 24 Hour Vital Signs Date Time Temp Pulse Resp B/P (MAP) Pulse Ox O2 Delivery O2 Flow Rate FiO2 07/04/19 09:01 61 160/80 07/04/19 09:01 61 160/80 07/04/19 08:00 97.5 61 20 160/80 (106) 100 07/04/19 07:45 60 07/04/19 07:05 141/59 07/04/19 07:05 141/59 07/04/19 04:00 98.2 54 20 141/59 (86) 97 07/04/19 04:00 59 07/04/19 00:15 147/69 07/04/19 00:15 147/69 07/04/19 00:00 97.9 87 20 109/58 (75) 95 07/04/19 00:00 56 07/03/19 21:20 64 160/71 07/03/19 21:00 Nasal Cannula 3.0 07/03/19 20:00 97.3 64 20 160/71 (100) 98 07/03/19 20:00 60 07/03/19 18:42 151/86 07/03/19 18:42 151/86 07/03/19 16:00 97.3 60 22 151/86 (107) 96 07/03/19 16:00 57 07/03/19 12:18 115/65 07/03/19 12:17 115/65 Intake and Output 07/03/19 07/04/19 19:00 07:00 Intake Total 125 ml 1899.6 ml Output Total 800 ml Balance 125 ml 1099.6 ml Free Water 250 ml IV Total 75 ml 979.6 ml Tube Feeding 50 ml 670 ml Output Urine Total 800 ml # Voids 2 # Bowel Movements 1 Laboratory Tests 07/03/19 15:25: Magnesium Level 2.2 Height (Feet): 5 Height (Inches): 8.00 Weight (Pounds): 155 Cardiovascular: normal peripheral pulses Respiratory/Chest: rhonchi - bilaterally - less Kaz Gilmore MD Jul 04, 2019 12:12
--- NOTE | 2019-07-04 12:14 | Pulmonology Progress Note ---
Assessment/Plan Assessment/Plan Problem List: * Respiratory distress/insufficiency * Bibasilar pulmonary infiltrates - likely aspiration pneumonia * Altered mental status * Acute CVA * DM Plan: * Monitor respiratory status, stable * Abx per ID * Concern about aspiration of oral secretions, AMS a factor * PEG placement * Duonebs * d/c planning Case d/w Dr. Gilmore Subjective ROS Limited/Unobtainable: Yes Interval Events: Remains on oxygen but nursing has not been weaning. Breathing stable Allergies: Coded Allergies: UNABLE TO ASSESS (Unverified , 06/18/19) Objective Last 24 Hour Vital Signs Date Time Temp Pulse Resp B/P (MAP) Pulse Ox O2 Delivery O2 Flow Rate FiO2 07/04/19 09:01 61 160/80 07/04/19 09:01 61 160/80 07/04/19 08:00 97.5 61 20 160/80 (106) 100 07/04/19 07:45 60 07/04/19 07:05 141/59 07/04/19 07:05 141/59 07/04/19 04:00 98.2 54 20 141/59 (86) 97 07/04/19 04:00 59 07/04/19 00:15 147/69 07/04/19 00:15 147/69 07/04/19 00:00 97.9 87 20 109/58 (75) 95 07/04/19 00:00 56 07/03/19 21:20 64 160/71 07/03/19 21:00 Nasal Cannula 3.0 07/03/19 20:00 97.3 64 20 160/71 (100) 98 07/03/19 20:00 60 07/03/19 18:42 151/86 07/03/19 18:42 151/86 07/03/19 16:00 97.3 60 22 151/86 (107) 96 07/03/19 16:00 57 07/03/19 12:18 115/65 07/03/19 12:17 115/65 Intake and Output 07/03/19 07/04/19 19:00 07:00 Intake Total 125 ml 1899.6 ml Output Total 800 ml Balance 125 ml 1099.6 ml Free Water 250 ml IV Total 75 ml 979.6 ml Tube Feeding 50 ml 670 ml Output Urine Total 800 ml # Voids 2 # Bowel Movements 1 General Appearance: no acute distress HEENT: mucous membranes moist Respiratory/Chest: lungs clear Cardiovascular: normal rate Abdomen: soft, non tender Extremities: no edema Laboratory Tests 07/03/19 15:25: Magnesium Level 2.2 Current Medications Medications (Trade) Dose Ordered Sig/Leonor Route PRN Reason Start Time Stop Time Status Last Admin Dose Admin Acetaminophen (Tylenol) 650 mg Q4H PRN NG Mild Pain/Temp > 100.5 06/28/19 08:00 07/28/19 07:59 06/29/19 04:14 Amlodipine Besylate (Norvasc) 10 mg DAILY NG 06/25/19 13:30 07/25/19 13:29 07/04/19 09:01 Aspirin (ASA) 325 mg DAILY NG 06/22/19 09:00 07/20/19 21:44 07/04/19 09:01 Clotrimazole (Lotrimin) 1 applic THREE TIMES A DAY TOPIC 07/02/19 13:00 07/09/19 12:59 07/04/19 09:01 Dextrose (Dextrose 50%) 25 ml Q30M PRN IV Hypoglycemia 06/21/19 18:30 07/18/19 12:29 Dextrose (Dextrose 50%) 50 ml Q30M PRN IV Hypoglycemia 06/21/19 18:30 07/18/19 12:29 Hydralazine HCl (Apresoline) 25 mg Q6HR ORAL 07/02/19 12:00 08/01/19 11:59 07/04/19 07:05 Insulin Aspart (NovoLOG) EVERY 6 HOURS SUBQ 06/25/19 18:00 07/19/19 16:59 07/04/19 07:04 Linezolid (Zyvox) 600 mg EVERY 12 HOURS NG 06/28/19 09:45 07/06/19 23:59 07/04/19 09:01 Loperamide HCl (Imodium) 2 mg Q6H PRN NG Diarrhea 06/29/19 11:00 07/29/19 10:59 07/04/19 09:07 Magnesium Hydroxide (Mom) 30 ml HSPRN PRN NG Constipation 06/21/19 18:15 07/21/19 18:14 Metoprolol Tartrate (Lopressor) 12.5 mg Q12HR GT 07/02/19 21:00 08/01/19 20:59 07/04/19 09:01 Minoxidil (Loniten) 2.5 mg Q4H PRN ORAL bp over 160 syst 07/02/19 11:45 08/01/19 11:44 Nitroglycerin (Nitro-Bid) 1 inch Q6HR TOPIC 07/01/19 00:00 07/31/19 20:59 07/04/19 07:05 Olanzapine (ZyPREXA) 5 mg BEDTIME ORAL 06/24/19 21:00 07/24/19 20:59 07/03/19 21:20 Ondansetron HCl (Zofran) 4 mg Q6H PRN IVP Nausea & Vomiting 06/21/19 18:15 07/21/19 18:14 Piperacillin Sod/ Tazobactam Sod 3.375 gm/Sodium Chloride 110 ml @ 27.5 mls/hr Q8H IVPB 06/25/19 15:00 07/06/19 23:59 07/04/19 07:05 Deni Borges MD Jul 04, 2019 12:14
--- NOTE | 2019-07-04 12:46 | Infectious Diseases Prog Note ---
Assessment/Plan Assessment/Plan IMPRESSION: Sepsis with fever and leukocytosis,resolving Aspiration pneumonia. cellulitis of the right hand. 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 RECOMMENDATION: We will continue with Zosyn & Zyvox X 1 day Subjective ROS Limited/Unobtainable: Yes Neurologic: Reports: other - on restraint Allergies: Coded Allergies: UNABLE TO ASSESS (Unverified , 06/18/19) Objective Vital Signs Last 24 Hour Vital Signs Date Time Temp Pulse Resp B/P (MAP) Pulse Ox O2 Delivery O2 Flow Rate FiO2 07/04/19 12:17 135/70 07/04/19 12:17 135/70 07/04/19 12:00 97.1 60 20 135/70 (91) 94 07/04/19 09:01 61 160/80 07/04/19 09:01 61 160/80 07/04/19 08:00 97.5 61 20 160/80 (106) 100 07/04/19 07:45 60 07/04/19 07:05 141/59 07/04/19 07:05 141/59 07/04/19 04:00 98.2 54 20 141/59 (86) 97 07/04/19 04:00 59 07/04/19 00:15 147/69 07/04/19 00:15 147/69 07/04/19 00:00 97.9 87 20 109/58 (75) 95 07/04/19 00:00 56 07/03/19 21:20 64 160/71 07/03/19 21:00 Nasal Cannula 3.0 07/03/19 20:00 97.3 64 20 160/71 (100) 98 07/03/19 20:00 60 07/03/19 18:42 151/86 07/03/19 18:42 151/86 07/03/19 16:00 97.3 60 22 151/86 (107) 96 07/03/19 16:00 57 Height (Feet): 5 Height (Inches): 8.00 Weight (Pounds): 155 General Appearance: no acute distress HEENT: mucous membranes moist Respiratory/Chest: lungs clear Cardiovascular: normal rate Abdomen: soft, non tender Extremities: other - R hand edema Neurologic/Psychiatric: aphasia, other - R hemiplegia Laboratory Tests Test 07/03/19 15:25 Magnesium Level 2.2 MG/DL (1.8-2.4) Current Medications Medications (Trade) Dose Ordered Sig/Leonor Route PRN Reason Start Time Stop Time Status Last Admin Dose Admin Acetaminophen (Tylenol) 650 mg Q4H PRN NG Mild Pain/Temp > 100.5 06/28/19 08:00 07/28/19 07:59 06/29/19 04:14 Amlodipine Besylate (Norvasc) 10 mg DAILY NG 06/25/19 13:30 07/25/19 13:29 07/04/19 09:01 Aspirin (ASA) 325 mg DAILY NG 06/22/19 09:00 07/20/19 21:44 07/04/19 09:01 Clotrimazole (Lotrimin) 1 applic THREE TIMES A DAY TOPIC 07/02/19 13:00 07/09/19 12:59 07/04/19 12:18 Dextrose (Dextrose 50%) 25 ml Q30M PRN IV Hypoglycemia 06/21/19 18:30 07/18/19 12:29 Dextrose (Dextrose 50%) 50 ml Q30M PRN IV Hypoglycemia 06/21/19 18:30 07/18/19 12:29 Hydralazine HCl (Apresoline) 25 mg Q6HR ORAL 07/02/19 12:00 08/01/19 11:59 07/04/19 12:17 Insulin Aspart (NovoLOG) EVERY 6 HOURS SUBQ 06/25/19 18:00 07/19/19 16:59 07/04/19 12:22 Linezolid (Zyvox) 600 mg EVERY 12 HOURS NG 06/28/19 09:45 07/06/19 23:59 07/04/19 09:01 Loperamide HCl (Imodium) 2 mg Q6H PRN NG Diarrhea 06/29/19 11:00 07/29/19 10:59 07/04/19 09:07 Magnesium Hydroxide (Mom) 30 ml HSPRN PRN NG Constipation 06/21/19 18:15 07/21/19 18:14 Metoprolol Tartrate (Lopressor) 12.5 mg Q12HR GT 07/02/19 21:00 08/01/19 20:59 07/04/19 09:01 Minoxidil (Loniten) 2.5 mg Q4H PRN ORAL bp over 160 syst 07/02/19 11:45 08/01/19 11:44 Nitroglycerin (Nitro-Bid) 1 inch Q6HR TOPIC 07/01/19 00:00 07/31/19 20:59 07/04/19 12:17 Olanzapine (ZyPREXA) 5 mg BEDTIME ORAL 06/24/19 21:00 07/24/19 20:59 07/03/19 21:20 Ondansetron HCl (Zofran) 4 mg Q6H PRN IVP Nausea & Vomiting 06/21/19 18:15 07/21/19 18:14 Piperacillin Sod/ Tazobactam Sod 3.375 gm/Sodium Chloride 110 ml @ 27.5 mls/hr Q8H IVPB 06/25/19 15:00 07/06/19 23:59 07/04/19 07:05 Bob Gilmore MD Jul 04, 2019 12:46
--- NOTE | 2019-07-04 13:53 | NUR ---
WEB SERVICES PROFESSIONAL PROGRESS NOTE LUAN spoke w/ possible family member Farhad Ryan Cathi [phone] and confirmed that he is not a family member of pt. LUAN is still unable to locate the family/relatives. Signed: 07/04/19 at 1355 by TRISH ROLAND <Co-Signature Required>
--- NOTE | 2019-07-04 14:44 | NUR ---
CASE MANAGEMENT:REVIEW 07/04/19 SI: LARGE ACUTE CVA. POD #3...S/P PEG 97.1 60 20 135/70 94% ON 3L/NC IS: IV ZOSYN Q8HRS ZYVOX NG Q12 LOPRESSOR GT Q12 HYDRALAZINE GT Q6HRS NORVASC GT QD ASA GT QD : TELEMETRY STATUS DISCHARGE PLANNING PATIENT NOW HAS A PEG. NEEDS SNF PLACEMENT BUT IS UNFUNDED SPOKE WITH COM SPEC COORDINATOR SARAHI
[2019-07-04] MEDS: Insulin NovoLOG Flexpen S/S (Mod) SUBQ SCH (18:00)
--- NOTE | 2019-07-04 18:38 | Cardiology Progress Note ---
Assessment/Plan Assessment/Plan 1. Respiratory insufficiency. 2. Cerebrovascular accident. 3. Premature ventricular complexes. 4. Interstitial infiltrates. 5. Altered mentation. 6. CVA. 7. Hypernatremia. 8. Renal insufficiency. 9. NSVT s/p peg ef 65-70 tele sinus onbp meds remains altered will add low dose of acei Subjective ROS Limited/Unobtainable: Yes Subjective altered mentation Objective Last 24 Hour Vital Signs Date Time Temp Pulse Resp B/P (MAP) Pulse Ox O2 Delivery O2 Flow Rate FiO2 07/04/19 16:02 184/81 07/04/19 16:00 97.8 73 20 184/81 (115) 95 07/04/19 15:15 76 07/04/19 12:17 135/70 07/04/19 12:17 135/70 07/04/19 12:00 97.1 60 20 135/70 (91) 94 07/04/19 11:57 63 07/04/19 09:01 61 160/80 07/04/19 09:01 61 160/80 07/04/19 09:00 Nasal Cannula 3.0 07/04/19 08:00 97.5 61 20 160/80 (106) 100 07/04/19 07:45 60 07/04/19 07:05 141/59 07/04/19 07:05 141/59 07/04/19 04:00 98.2 54 20 141/59 (86) 97 07/04/19 04:00 59 07/04/19 00:15 147/69 07/04/19 00:15 147/69 07/04/19 00:00 97.9 87 20 109/58 (75) 95 07/04/19 00:00 56 07/03/19 21:20 64 160/71 07/03/19 21:00 Nasal Cannula 3.0 07/03/19 20:00 97.3 64 20 160/71 (100) 98 07/03/19 20:00 60 07/03/19 18:42 151/86 07/03/19 18:42 151/86 General Appearance: no apparent distress, alert, other - not verbal Neck: supple Cardiovascular: normal rate Respiratory/Chest: lungs clear Abdomen: normal bowel sounds, non tender, soft Extremities: no swelling Intake and Output 07/03/19 07/04/19 19:00 07:00 Intake Total 125 ml 1899.6 ml Output Total 800 ml Balance 125 ml 1099.6 ml Free Water 250 ml IV Total 75 ml 979.6 ml Tube Feeding 50 ml 670 ml Output Urine Total 800 ml # Voids 2 # Bowel Movements 1 Chris Melgar MD Jul 04, 2019 18:38
--- NOTE | 2019-07-04 19:39 | NUR ---
HAND-OFF: Report given to JESSICA RN. Pt is awake and stable.
--- NOTE | 2019-07-04 19:45 | NUR ---
NURSE NOTES: Pt received from [facility] Atkins alert and oriented x0, nonverbal with no acute s/s of distress noted. IV site asymptomatic and patent on L fa 22g, saline lock. Bed in lowest position, call light and belongings within reach.
--- NOTE | 2019-07-04 21:45 | General Progress Note ---
Assessment/Plan Status: stable, unchanged Assessment/Plan: Assessment - Acute CVA - AMS - Dysphagia - arrhythmia - free water deficit - leukocytosis - suspect aspiration pneumonitis - poor prognosis Recommendations - IVF - free water - Abx - IV hydration - monitor labs - GT feeds Subjective Allergies: Coded Allergies: UNABLE TO ASSESS (Unverified , 06/18/19) Subjective above noted No events overnight opens eyes but dues not follow commands tolerating TF Objective Last 24 Hour Vital Signs Date Time Temp Pulse Resp B/P (MAP) Pulse Ox O2 Delivery O2 Flow Rate FiO2 07/04/19 20:55 65 136/76 07/04/19 20:00 98.1 68 21 136/76 (96) 96 07/04/19 18:52 168/78 07/04/19 18:52 168/78 07/04/19 18:50 168/78 (108) 07/04/19 16:02 184/81 07/04/19 16:00 97.8 73 20 184/81 (115) 95 07/04/19 15:15 76 07/04/19 12:17 135/70 07/04/19 12:17 135/70 07/04/19 12:00 97.1 60 20 135/70 (91) 94 07/04/19 11:57 63 07/04/19 09:01 61 160/80 07/04/19 09:01 61 160/80 07/04/19 09:00 Nasal Cannula 3.0 07/04/19 08:00 97.5 61 20 160/80 (106) 100 07/04/19 07:45 60 07/04/19 07:05 141/59 07/04/19 07:05 141/59 07/04/19 04:00 98.2 54 20 141/59 (86) 97 07/04/19 04:00 59 07/04/19 00:15 147/69 07/04/19 00:15 147/69 07/04/19 00:00 97.9 87 20 109/58 (75) 95 07/04/19 00:00 56 Intake and Output 07/03/19 07/04/19 19:00 07:00 Intake Total 125 ml 1899.6 ml Output Total 800 ml Balance 125 ml 1099.6 ml Free Water 250 ml IV Total 75 ml 979.6 ml Tube Feeding 50 ml 670 ml Output Urine Total 800 ml # Voids 2 # Bowel Movements 1 Height (Feet): 5 Height (Inches): 8.00 Weight (Pounds): 155 Objective Elderly man NCAT supple Coarse BS RR abd soft no edema Barb Lee MD Jul 04, 2019 21:45
[2019-07-05] VITALS: BP 158/74
--- NOTE | 2019-07-05 00:15 | Progress Note ---
DATE: 07/04/2019 SUBJECTIVE: The patient is asleep, confused, disoriented. Has episodes of anxiety. Memory is impaired. Not engaged during the evaluation. MENTAL STATUS EXAMINATION: The patient is alert, disoriented. Mood is anxious. Affect is flat. Thought process is disorganized. Thought content, no suicidal or homicidal ideation. Cognition is impaired. Insight and judgment is impaired. ASSESSMENT: Acute CVA, cognitive impairment. PLAN: We will continue current psychotropic medications. Jessica Quinonez M.D. DR: YSABEL JOB#: [id number] CC:
[2019-07-05] MEDS: Piperacillin/Tazobactam 3.375 GM in NS 110 ML IVPB SCH ×2 (00:35→07:16)
[2019-07-05] MEDS: HydrALAZINE 25mg tab ORAL SCH ×6 (00:35→23:54)
[2019-07-05] MEDS: Nitroglycerin 2% oint pkt TOPIC SCH ×6 (00:35→23:54)
[2019-07-05] MEDS: Insulin NovoLOG Flexpen S/S (Mod) SUBQ SCH ×2 (00:38→05:29)
[2019-07-05 04:00] VITALS: BP 144/74
--- NOTE | 2019-07-05 05:40 | NUR ---
NURSE NOTES: Received from Scott viera RN alert and oriented x0, pt is nonverbal with no s/s of respiratory . IV site is asymptomatic on L forearm 22g, saline lock. Bed in low, locked position, restraint on L hand , call light with in reach. will continue to monitor . Vitals T 99 P 63 RR 22 BP 136/67 O2sat 95 at 2 L via NC
[2019-07-05] MEDS ORDERED: Acetaminophen 650mg/20.3ml NG PRN (05:48)
[2019-07-05] MEDS ORDERED: Milk of Magnesia 30ml Ud NG PRN (05:51)
--- NOTE | 2019-07-05 05:55 | NUR ---
TRANSFER TO FLOOR: Patient transferred to [facility], per Dr. Gilmore. Report given to [facility] Hobbs. Belongings and medications given to [facility] Hob[facility]. Family and or S/O informed of transfer.
[2019-07-05] MEDS: NovoLOG Insulin Flexpen SUBQ SCH ×3 (06:00→16:38)
[2019-07-05] MEDS ORDERED: Piperacillin/Tazobactam 3.375 GM in NS 110 ML IVPB SCH (07:00)
--- NOTE | 2019-07-05 07:45 | NUR ---
NURSE NOTES: AWAKE/NON VERBAL. WITH LEFT SIDED WEAKNESS. GT FEEDING INFUSING. EXTERNAL CATHETER IN PLACE DRAINING YELLOW URINE.IN NO DISTRESS.
[2019-07-05 08:00] VITALS: BP 174/78
--- NOTE | 2019-07-05 08:02 | NUR ---
HAND-OFF: Report given to [facility]INO Espana
[2019-07-05] MEDS ORDERED: Lisinopril 10mg tab ORAL SCH (09:00)
[2019-07-05] MEDS: Lisinopril 10mg tab ORAL SCH (09:01)
[2019-07-05] MEDS: Metoprolol Tartrate 12.5mg TAB GT SCH ×2 (09:01→20:30)
--- NOTE | 2019-07-05 10:11 | NUR ---
SOCIAL WORK PROGRESS NOTE LUAN spoke to Adina from [facility] office [phone] and confirmed that pt is not conserved and there is no record of pt at [facility], therefore Adina was unable to find any record i.e. family/relative information. LUAN is unable to locate family member at this time. Signed: 07/05/19 at 1013 by TRISH ROLAND <Co-Signature Required>
[2019-07-05 12:00] VITALS: BP 153/74
--- NOTE | 2019-07-05 13:00 | NUR ---
NURSE NOTES: incontinent of loose bm. made clean and dry. GT FEEDING HELD FOR NOW. NO RESIDUAL.WILL CONTINUE TO MONITOR PT.
--- NOTE | 2019-07-05 13:00 | NUR ---
NURSE NOTES: HAD DIARRHEA, UNABLE TO OBTAINED SPECIMEN FOR C.DIFF. STOOL SOAKED THROUGH THE SHEETS.
--- NOTE | 2019-07-05 13:26 | NUR ---
CASE MANAGEMENT:REVIEW 07/05/19 SI: LARGE ACUTE CVA . S/P PEG . HTN 98.4 61 16 153/74 94% ON 3L/NC IS: IV ZOSYN Q8HRS ZYVOX NG Q12 LOPRESSOR GT Q12 HYDRALAZINE GT Q6HRS NORVASC GT QD ASA GT QD NITRO-BUD TP Q6HR \: 3E MED SURG UNIT DISCHARGE PLANNING NEEDS SNF PLACEMENT BUT IS UNFUNDED SPOKE WITH COM SPEC COORDINATOR SARAHI
--- NOTE | 2019-07-05 13:50 | Infectious Diseases Prog Note ---
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 Aphasia R hemiplegia RECOMMENDATION: Discontinue with Zosyn & Zyvox F/U CBC Subjective ROS Limited/Unobtainable: Yes Constitutional: Denies: fever Allergies: Coded Allergies: UNABLE TO ASSESS (Unverified , 06/18/19) Objective Vital Signs Last 24 Hour Vital Signs Date Time Temp Pulse Resp B/P (MAP) Pulse Ox O2 Delivery O2 Flow Rate FiO2 07/05/19 12:22 153/74 07/05/19 12:22 153/74 07/05/19 12:00 98.4 61 16 153/74 (100) 94 07/05/19 09:02 81 174/78 07/05/19 09:01 81 174/78 07/05/19 09:01 174/78 07/05/19 09:00 Nasal Cannula 3.0 07/05/19 08:00 98.1 81 15 174/78 (110) 93 07/05/19 08:00 94 Nasal Cannula 3.0 32 07/05/19 05:25 144/74 07/05/19 05:25 144/74 07/05/19 04:00 98.2 68 24 144/74 (97) 96 07/05/19 04:00 64 07/05/19 00:35 158/74 07/05/19 00:35 158/74 07/05/19 00:00 98.1 65 24 158/74 (102) 94 07/05/19 00:00 59 07/04/19 21:00 Nasal Cannula 3.0 07/04/19 20:55 65 136/76 07/04/19 20:00 66 07/04/19 20:00 98.1 68 21 136/76 (96) 96 07/04/19 18:52 168/78 07/04/19 18:52 168/78 07/04/19 18:50 168/78 (108) 07/04/19 16:02 184/81 07/04/19 16:00 97.8 73 20 184/81 (115) 95 07/04/19 15:15 76 Height (Feet): 5 Height (Inches): 8.00 Weight (Pounds): 155 General Appearance: no acute distress HEENT: mucous membranes moist Respiratory/Chest: rhonchi - bilaterally Cardiovascular: normal rate Abdomen: soft, non tender, other - GT feeding Extremities: other - R hand edema Neurologic/Psychiatric: aphasia, other - R hemiplegia Current Medications Medications (Trade) Dose Ordered Sig/Leonor Route PRN Reason Start Time Stop Time Status Last Admin Dose Admin Acetaminophen (Tylenol) 650 mg Q4H PRN NG Mild Pain/Temp > 100.5 07/05/19 05:48 07/28/19 05:47 Amlodipine Besylate (Norvasc) 10 mg DAILY NG 07/05/19 09:00 07/25/19 13:29 07/05/19 09:02 Aspirin (ASA) 325 mg DAILY NG 07/05/19 09:00 07/20/19 21:44 07/05/19 09:04 Clotrimazole (Lotrimin) 1 applic THREE TIMES A DAY TOPIC 07/05/19 09:00 07/12/19 08:59 07/05/19 12:43 Dextrose (Dextrose 50%) 25 ml Q30M PRN IV Hypoglycemia 07/05/19 06:00 07/18/19 12:29 Dextrose (Dextrose 50%) 50 ml Q30M PRN IV Hypoglycemia 07/05/19 06:00 07/18/19 12:29 Hydralazine HCl (Apresoline) 25 mg Q6HR ORAL 07/05/19 06:00 08/01/19 11:59 07/05/19 12:22 Insulin Aspart (NovoLOG) No Dose Q6HR SUBQ 07/05/19 06:00 08/03/19 17:59 07/05/19 12:18 Linezolid (Zyvox) 600 mg EVERY 12 HOURS NG 07/05/19 09:00 07/06/19 23:59 07/05/19 09:01 Lisinopril (ZestriL) 10 mg DAILY ORAL 07/05/19 09:00 08/04/19 08:59 07/05/19 09:01 Loperamide HCl (Imodium) 2 mg Q6H PRN NG Diarrhea 07/05/19 05:50 07/29/19 05:49 Magnesium Hydroxide (Mom) 30 ml HSPRN PRN NG Constipation 07/05/19 05:51 07/21/19 05:50 Metoprolol Tartrate (Lopressor) 12.5 mg Q12HR GT 07/05/19 09:00 08/01/19 20:59 07/05/19 09:01 Minoxidil (Loniten) 2.5 mg Q4H PRN ORAL bp over 160 syst 07/05/19 07:45 08/01/19 11:44 Nitroglycerin (Nitro-Bid) 1 inch Q6HR TOPIC 07/05/19 06:00 07/31/19 20:59 07/05/19 12:22 Olanzapine (ZyPREXA) 5 mg BEDTIME ORAL 07/05/19 21:00 07/24/19 20:59 Ondansetron HCl (Zofran) 4 mg Q6H PRN IVP Nausea & Vomiting 07/05/19 06:15 07/21/19 18:14 Piperacillin Sod/ Tazobactam Sod 3.375 gm/Sodium Chloride 110 ml @ 27.5 mls/hr Q8H IVPB 07/05/19 07:00 07/06/19 23:59 07/05/19 07:18 Bob Gilmore MD Jul 05, 2019 13:50
--- NOTE | 2019-07-05 14:00 | NUR ---
NURSE NOTES: GT CHECKED FOR RESIDUAL 0CC. GT FEEDING RESUMED AT 60CC/HR.
--- NOTE | 2019-07-05 14:08 | NUR ---
RD ASSESSMENT & RECOMMENDATIONS SEE CARE ACTIVITY FOR COMPLETE ASSESSMENT DAILY ESTIMATED NEEDS: Needs based on sepsis, DTPI 72kg adj 25-30 kcals/kg 9837-1552 total kcals 1.25-2 g protein/kg 90-144 g total protein 25-30 mL/kg 2988-3962 total fluid mLs NUTRITION DIAGNOSIS: * Swallowing difficulty R/T dysphagia, s/p new and old CVA as evidenced by NPO per SECURITY MESSENGER rec, has been on NGT feeds, s/p PEG placement this AM, NPO at this time. * Altered nutrition related lab values r/t sepsis, DM, volume deficit as evidenced by elev WBC (18.2), elev POC glu (134-201) w/ A1C 6.9, elev Na (153), elev BUN (40), elev creat (1.5) CURRENT TF:Glucerna 1.2 @60ml x24 hrs ENTERAL NUTRITION RECOMMENDATIONS: Glucerna 1.2 @ 65ml/hr x 24 hrs to provide 1560ml, 1872kcal, 94g prot, 1256ml free water - Advance 10ml q 4-6 hrs as tolerated to goal rate - HOB over 30 degrees - H20 flush of 150ml q 4 hrs ADDITIONAL RECOMMENDATIONS: 1) Maintain calibrated bed scale wts 2) Monitor for readiness fo oral grat, MBSS- monitor SECURITY MESSENGER rec 3) Monitor BGs closely-consider long acting insulin for improved BG control 4) F/up WC eval: rec Vit C 250mg QD rec Osbaldo 1pkt BID via PEG (mix w/ 4oz water) 5) Monitor lytes, replete as needed .
--- NOTE | 2019-07-05 14:16 | General Progress Note ---
Assessment/Plan Problem List: (1) Cellulitis of right hand ICD Codes: L03.113 - Cellulitis of right upper limb SNOMED: 23795100 (2) Altered level of consciousness ICD Codes: R40.4 - Transient alteration of awareness SNOMED: 5307361 (3) Sepsis ICD Codes: A41.9 - Sepsis, unspecified organism SNOMED: 07236316 Qualifiers: Qualified Codes: A41.9 - Sepsis, unspecified organism (4) Left middle cerebral artery stroke ICD Codes: I63.512 - Cerebral infarction due to unspecified occlusion or stenosis of left middle cerebral artery SNOMED: 397593302 (5) Left carotid artery occlusion ICD Codes: I65.22 - Occlusion and stenosis of left carotid artery SNOMED: 011861813448419 (6) Hypernatremia Assessment & Plan: better ICD Codes: E87.0 - Hyperosmolality and hypernatremia SNOMED: 528599598 (7) Hypokalemia Assessment & Plan: better ICD Codes: E87.6 - Hypokalemia SNOMED: 41959497 (8) DM (diabetes mellitus) ICD Codes: E11.9 - Type 2 diabetes mellitus without complications SNOMED: 63675855 (9) Pneumonia ICD Codes: J18.9 - Pneumonia, unspecified organism SNOMED: 852856612 (10) ARF (acute renal failure) Assessment & Plan: no change ICD Codes: N17.9 - Acute kidney failure, unspecified SNOMED: 61441256 Status: stable, unchanged Assessment/Plan: continue ASA TF SSI cont Duoneb cont abxs follow labs Subjective Allergies: Coded Allergies: UNABLE TO ASSESS (Unverified , 06/18/19) Subjective In NAD Objective Last 24 Hour Vital Signs Date Time Temp Pulse Resp B/P (MAP) Pulse Ox O2 Delivery O2 Flow Rate FiO2 07/05/19 12:22 153/74 07/05/19 12:22 153/74 07/05/19 12:00 98.4 61 16 153/74 (100) 94 07/05/19 09:02 81 174/78 07/05/19 09:01 81 174/78 07/05/19 09:01 174/78 07/05/19 09:00 Nasal Cannula 3.0 07/05/19 08:00 98.1 81 15 174/78 (110) 93 07/05/19 08:00 94 Nasal Cannula 3.0 32 07/05/19 05:25 144/74 07/05/19 05:25 144/74 07/05/19 04:00 98.2 68 24 144/74 (97) 96 07/05/19 04:00 64 07/05/19 00:35 158/74 07/05/19 00:35 158/74 07/05/19 00:00 98.1 65 24 158/74 (102) 94 07/05/19 00:00 59 07/04/19 21:00 Nasal Cannula 3.0 07/04/19 20:55 65 136/76 07/04/19 20:00 66 07/04/19 20:00 98.1 68 21 136/76 (96) 96 07/04/19 18:52 168/78 07/04/19 18:52 168/78 07/04/19 18:50 168/78 (108) 07/04/19 16:02 184/81 07/04/19 16:00 97.8 73 20 184/81 (115) 95 07/04/19 15:15 76 Intake and Output 07/04/19 07/05/19 19:00 07:00 Intake Total 1852.5 ml 1497.5 ml Output Total 1600 ml 500 ml Balance 252.5 ml 997.5 ml Free Water 750 ml 750 ml IV Total 382.5 ml 27.5 ml Tube Feeding 720 ml 720 ml Output Urine Total 1600 ml 500 ml # Voids 1 # Bowel Movements 1 Height (Feet): 5 Height (Inches): 8.00 Weight (Pounds): 155 Cardiovascular: normal rate Respiratory/Chest: rhonchi - bilaterally Edema: no edema noted Generalized Kaz Gilmore MD Jul 05, 2019 14:16
--- NOTE | 2019-07-05 14:24 | NUR ---
NURSE NOTES: PT HAD LARGE DIARRHEA X2. DR LEAL NOTIFIED ,NO NEW ORDER. STATES JUST MONITOR PT.
--- NOTE | 2019-07-05 15:33 | Cardiology Progress Note ---
Assessment/Plan Assessment/Plan 1. Respiratory insufficiency. 2. Cerebrovascular accident. 3. Premature ventricular complexes. 4. Interstitial infiltrates. 5. Altered mentation. 6. CVA. 7. Hypernatremia. 8. Renal insufficiency. 9. NSVT s/p peg ef 65-70 tele sinus onbp meds on low dose of acei will check lab in am before increase in judith dose Subjective ROS Limited/Unobtainable: Yes Subjective altered mentation Objective Last 24 Hour Vital Signs Date Time Temp Pulse Resp B/P (MAP) Pulse Ox O2 Delivery O2 Flow Rate FiO2 07/05/19 12:22 153/74 07/05/19 12:22 153/74 07/05/19 12:00 98.4 61 16 153/74 (100) 94 07/05/19 09:02 81 174/78 07/05/19 09:01 81 174/78 07/05/19 09:01 174/78 07/05/19 09:00 Nasal Cannula 3.0 07/05/19 08:00 98.1 81 15 174/78 (110) 93 07/05/19 08:00 94 Nasal Cannula 3.0 32 07/05/19 05:25 144/74 07/05/19 05:25 144/74 07/05/19 04:00 98.2 68 24 144/74 (97) 96 07/05/19 04:00 64 07/05/19 00:35 158/74 07/05/19 00:35 158/74 07/05/19 00:00 98.1 65 24 158/74 (102) 94 07/05/19 00:00 59 07/04/19 21:00 Nasal Cannula 3.0 07/04/19 20:55 65 136/76 07/04/19 20:00 66 07/04/19 20:00 98.1 68 21 136/76 (96) 96 07/04/19 18:52 168/78 07/04/19 18:52 168/78 07/04/19 18:50 168/78 (108) 07/04/19 16:02 184/81 07/04/19 16:00 97.8 73 20 184/81 (115) 95 General Appearance: no apparent distress Cardiovascular: normal rate Respiratory/Chest: lungs clear Abdomen: normal bowel sounds, non tender, soft Extremities: no swelling Intake and Output 07/04/19 07/05/19 19:00 07:00 Intake Total 1852.5 ml 1497.5 ml Output Total 1600 ml 500 ml Balance 252.5 ml 997.5 ml Free Water 750 ml 750 ml IV Total 382.5 ml 27.5 ml Tube Feeding 720 ml 720 ml Output Urine Total 1600 ml 500 ml # Voids 1 # Bowel Movements 1 Chris Melgar MD Jul 05, 2019 15:33
[2019-07-05 16:00] VITALS: BP 177/70
[2019-07-05] MEDS: Minoxidil 2.5mg tab ORAL PRN (16:28)
--- NOTE | 2019-07-05 17:53 | Pulmonology Progress Note ---
Assessment/Plan Assessment/Plan Problem List: * Respiratory distress/insufficiency * Bibasilar pulmonary infiltrates - likely aspiration pneumonia * Altered mental status * Acute CVA * DM Plan: * Monitor respiratory status, stable * Abx per ID * PEG placement * Duonebs * d/c planning Subjective ROS Limited/Unobtainable: Yes Interval Events: no acute events. Breathing stable. Allergies: Coded Allergies: UNABLE TO ASSESS (Unverified , 06/18/19) Objective Last 24 Hour Vital Signs Date Time Temp Pulse Resp B/P (MAP) Pulse Ox O2 Delivery O2 Flow Rate FiO2 07/05/19 17:41 177/70 07/05/19 17:41 177/70 07/05/19 16:28 177/70 07/05/19 16:00 97.7 68 16 177/70 (105) 95 07/05/19 12:22 153/74 07/05/19 12:22 153/74 07/05/19 12:00 98.4 61 16 153/74 (100) 94 07/05/19 09:02 81 174/78 07/05/19 09:01 81 174/78 07/05/19 09:01 174/78 07/05/19 09:00 Nasal Cannula 3.0 07/05/19 08:00 98.1 81 15 174/78 (110) 93 07/05/19 08:00 94 Nasal Cannula 3.0 32 07/05/19 05:25 144/74 07/05/19 05:25 144/74 07/05/19 04:00 98.2 68 24 144/74 (97) 96 07/05/19 04:00 64 07/05/19 00:35 158/74 07/05/19 00:35 158/74 07/05/19 00:00 98.1 65 24 158/74 (102) 94 07/05/19 00:00 59 07/04/19 21:00 Nasal Cannula 3.0 07/04/19 20:55 65 136/76 07/04/19 20:00 66 07/04/19 20:00 98.1 68 21 136/76 (96) 96 07/04/19 18:52 168/78 07/04/19 18:52 168/78 07/04/19 18:50 168/78 (108) Intake and Output 07/04/19 07/05/19 19:00 07:00 Intake Total 1852.5 ml 1497.5 ml Output Total 1600 ml 500 ml Balance 252.5 ml 997.5 ml Free Water 750 ml 750 ml IV Total 382.5 ml 27.5 ml Tube Feeding 720 ml 720 ml Output Urine Total 1600 ml 500 ml # Voids 1 # Bowel Movements 1 General Appearance: no acute distress HEENT: mucous membranes moist Respiratory/Chest: lungs clear Cardiovascular: normal rate Abdomen: soft, non tender Extremities: no edema Current Medications Medications (Trade) Dose Ordered Sig/Leonor Route PRN Reason Start Time Stop Time Status Last Admin Dose Admin Acetaminophen (Tylenol) 650 mg Q4H PRN NG Mild Pain/Temp > 100.5 07/05/19 05:48 07/28/19 05:47 Amlodipine Besylate (Norvasc) 10 mg DAILY NG 07/05/19 09:00 07/25/19 13:29 07/05/19 09:02 Aspirin (ASA) 325 mg DAILY NG 07/05/19 09:00 07/20/19 21:44 07/05/19 09:04 Clotrimazole (Lotrimin) 1 applic THREE TIMES A DAY TOPIC 07/05/19 09:00 07/12/19 08:59 07/05/19 17:42 Dextrose (Dextrose 50%) 25 ml Q30M PRN IV Hypoglycemia 07/05/19 06:00 07/18/19 12:29 Dextrose (Dextrose 50%) 50 ml Q30M PRN IV Hypoglycemia 07/05/19 06:00 07/18/19 12:29 Hydralazine HCl (Apresoline) 25 mg Q6HR ORAL 07/05/19 06:00 08/01/19 11:59 07/05/19 17:41 Insulin Aspart (NovoLOG) No Dose Q6HR SUBQ 07/05/19 06:00 08/03/19 17:59 07/05/19 12:18 Lisinopril (ZestriL) 10 mg DAILY ORAL 07/05/19 09:00 08/04/19 08:59 07/05/19 09:01 Loperamide HCl (Imodium) 2 mg Q6H PRN NG Diarrhea 07/05/19 05:50 07/29/19 05:49 07/05/19 16:28 Magnesium Hydroxide (Mom) 30 ml HSPRN PRN NG Constipation 07/05/19 05:51 07/21/19 05:50 Metoprolol Tartrate (Lopressor) 12.5 mg Q12HR GT 07/05/19 09:00 08/01/19 20:59 07/05/19 09:01 Minoxidil (Loniten) 2.5 mg Q4H PRN ORAL bp over 160 syst 07/05/19 07:45 08/01/19 11:44 07/05/19 16:28 Nitroglycerin (Nitro-Bid) 1 inch Q6HR TOPIC 07/05/19 06:00 07/31/19 20:59 07/05/19 17:41 Olanzapine (ZyPREXA) 5 mg BEDTIME ORAL 07/05/19 21:00 07/24/19 20:59 Ondansetron HCl (Zofran) 4 mg Q6H PRN IVP Nausea & Vomiting 07/05/19 06:15 07/21/19 18:14 Deni Borges MD Jul 05, 2019 17:52
--- NOTE | 2019-07-05 19:00 | NUR ---
NURSE NOTES: ASLEEP. IN NO ACUTE DISTRESS.
--- NOTE | 2019-07-05 19:39 | NUR ---
HAND-OFF: Report given to BEVERLEY BADILLO.
--- NOTE | 2019-07-05 19:41 | NUR ---
NURSE NOTES: Received patient in bed, non verbal, asleep, no acute distress noted, IV site is clean dry and intact, patient is a total care, with bilateral soft wrist restraints, patient will be monitored for comfort and safety. Bed is lowered, locked and alarm is on.
[2019-07-05 20:00] VITALS: BP 152/73
--- NOTE | 2019-07-05 20:38 | General Progress Note ---
Assessment/Plan Status: stable, unchanged Assessment/Plan: Assessment - Acute CVA - AMS - Dysphagia - arrhythmia - free water deficit - leukocytosis - suspect aspiration pneumonitis - poor prognosis Recommendations - IVF - Abx - IV hydration - monitor labs - follow BM pattern for now - GT feeds Subjective Allergies: Coded Allergies: UNABLE TO ASSESS (Unverified , 06/18/19) Subjective above noted tolerating TF 2 large loose BM today, per RN Objective Last 24 Hour Vital Signs Date Time Temp Pulse Resp B/P (MAP) Pulse Ox O2 Delivery O2 Flow Rate FiO2 07/05/19 20:30 87 152/73 07/05/19 17:41 177/70 07/05/19 17:41 177/70 07/05/19 16:28 177/70 07/05/19 16:00 97.7 68 16 177/70 (105) 95 07/05/19 12:22 153/74 07/05/19 12:22 153/74 07/05/19 12:00 98.4 61 16 153/74 (100) 94 07/05/19 09:02 81 174/78 07/05/19 09:01 81 174/78 07/05/19 09:01 174/78 07/05/19 09:00 Nasal Cannula 3.0 07/05/19 08:00 98.1 81 15 174/78 (110) 93 07/05/19 08:00 94 Nasal Cannula 3.0 32 07/05/19 05:25 144/74 07/05/19 05:25 144/74 07/05/19 04:00 98.2 68 24 144/74 (97) 96 07/05/19 04:00 64 07/05/19 00:35 158/74 07/05/19 00:35 158/74 07/05/19 00:00 98.1 65 24 158/74 (102) 94 07/05/19 00:00 59 07/04/19 21:00 Nasal Cannula 3.0 07/04/19 20:55 65 136/76 Intake and Output 07/04/19 07/05/19 18:59 06:59 Intake Total 1852.5 ml 1497.5 ml Output Total 1600 ml 500 ml Balance 252.5 ml 997.5 ml Free Water 750 ml 750 ml IV Total 382.5 ml 27.5 ml Tube Feeding 720 ml 720 ml Output Urine Total 1600 ml 500 ml # Voids 1 # Bowel Movements 1 Height (Feet): 5 Height (Inches): 8.00 Weight (Pounds): 155 Objective Elderly man NCAT supple Coarse BS RR abd soft no edema Barb Lee MD Jul 05, 2019 20:38
[2019-07-06] VITALS: BP 150/75
[2019-07-06] MEDS: NovoLOG Insulin Flexpen SUBQ SCH ×5 (00:11→23:47)
[2019-07-06 04:00] VITALS: BP 140/71
--- NOTE | 2019-07-06 04:45 | Progress Note ---
DATE: 07/05/2019 SUBJECTIVE: The patient is nonverbal, in soft restraints, confused, disoriented. MENTAL STATUS EXAMINATION: The patient is easily agitated, confused. Mood is neutral to anxious. Affect is flat. Thought process, there is a paucity of thought content. Cognition is impaired. ASSESSMENT: Dementia with behavior disturbance. PLAN: 1. We will continue with current psychotropic medications. 2. Continue to follow and readjust the medications. Jessica Quinonez M.D. DR: DENA JOB#: [id number] CC: MELINDA
[2019-07-06] MEDS: HydrALAZINE 25mg tab ORAL SCH ×4 (05:44→23:47)
[2019-07-06] MEDS: Nitroglycerin 2% oint pkt TOPIC SCH ×4 (05:44→23:48)
[2019-07-06 05:53] LABS: BASOPHILS % (AUTO) 0.7 % (0.0-2.0); EOSINOPHILS % (AUTO) 1.5 % (0.0-3.0); HEMATOCRIT 41.7 % (42.0-52.0); HEMOGLOBIN 15.1 G/DL (14.2-18.0); LYMPHOCYTES % (AUTO) 14.3 % (20.0-45.0); MEAN CORPUSCULAR VOLUME 88 FL (80-99); MONOCYTES % (AUTO) 4.8 % (1.0-10.0); NEUTROPHILS % (AUTO) 78.8 % (45.0-75.0); PLATELET COUNT 394 K/UL (150-450); RED BLOOD COUNT 4.76 M/UL (4.70-6.10); RED CELL DISTRIBUTION WIDTH 10.5 % (11.6-14.8); WHITE BLOOD COUNT 14.3 K/UL (4.8-10.8)
[2019-07-06 06:07] LABS: ANION GAP 9 mmol/L (5-15); BLOOD UREA NITROGEN 27 mg/dL (7-18); CALCIUM 8.7 MG/DL (8.5-10.1); CARBON DIOXIDE 27 MMOL/L (21-32); CHLORIDE 107 MMOL/L (98-107); CREATININE 1.1 MG/DL (0.55-1.30); POTASSIUM 4.2 MMOL/L (3.5-5.1); SODIUM 142 MMOL/L (136-145)
--- NOTE | 2019-07-06 07:19 | NUR ---
HAND-OFF: Report given to Marilynn BADILLO.
--- NOTE | 2019-07-06 07:29 | NUR ---
NURSE NOTES: AWAKE. NON VERBAL. IN NO APPARENT DISTRESS.
[2019-07-06 08:00] VITALS: BP 167/70
[2019-07-06] MEDS: Lisinopril 10mg tab ORAL SCH (09:03)
[2019-07-06] MEDS: Metoprolol Tartrate 12.5mg TAB GT SCH ×2 (09:04→20:43)
[2019-07-06 12:00] VITALS: BP 146/63
--- NOTE | 2019-07-06 12:19 | Infectious Diseases Prog Note ---
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 Aphasia R hemiplegia RECOMMENDATION: Observe off antibiotic Subjective ROS Limited/Unobtainable: Yes Constitutional: Denies: fever Allergies: Coded Allergies: UNABLE TO ASSESS (Unverified , 06/18/19) Objective Vital Signs Last 24 Hour Vital Signs Date Time Temp Pulse Resp B/P (MAP) Pulse Ox O2 Delivery O2 Flow Rate FiO2 07/06/19 09:04 73 150/76 07/06/19 09:04 73 150/76 07/06/19 09:03 150/76 07/06/19 09:00 Nasal Cannula 3.0 07/06/19 08:00 97.3 42 18 167/70 (102) 94 07/06/19 05:44 150/76 07/06/19 05:44 150/76 07/06/19 04:00 98.1 73 18 140/71 (94) 98 07/06/19 00:00 97.6 66 18 150/75 (100) 98 07/05/19 23:54 150/75 07/05/19 23:54 150/78 07/05/19 21:18 Nasal Cannula 3.0 07/05/19 20:30 87 152/73 07/05/19 20:00 98.2 71 20 152/73 (99) 98 07/05/19 17:41 177/70 07/05/19 17:41 177/70 07/05/19 16:28 177/70 07/05/19 16:00 97.7 68 16 177/70 (105) 95 07/05/19 12:22 153/74 07/05/19 12:22 153/74 Height (Feet): 5 Height (Inches): 8.00 Weight (Pounds): 155 HEENT: other - dry mouth Respiratory/Chest: rhonchi - bilaterally Cardiovascular: normal rate Abdomen: soft, non tender, other - GT feeding Extremities: no edema Neurologic/Psychiatric: aphasia Laboratory Tests Test 07/06/19 04:50 White Blood Count 14.3 K/UL (4.8-10.8) H Red Blood Count 4.76 M/UL (4.70-6.10) Hemoglobin 15.1 G/DL (14.2-18.0) Hematocrit 41.7 % (42.0-52.0) L Mean Corpuscular Volume 88 FL (80-99) Mean Corpuscular Hemoglobin 31.8 PG (27.0-31.0) H Mean Corpuscular Hemoglobin Concent 36.3 G/DL (32.0-36.0) H Red Cell Distribution Width 10.5 % (11.6-14.8) L Platelet Count 394 K/UL (150-450) Mean Platelet Volume 7.0 FL (6.5-10.1) Neutrophils (%) (Auto) 78.8 % (45.0-75.0) H Lymphocytes (%) (Auto) 14.3 % (20.0-45.0) L Monocytes (%) (Auto) 4.8 % (1.0-10.0) Eosinophils (%) (Auto) 1.5 % (0.0-3.0) Basophils (%) (Auto) 0.7 % (0.0-2.0) Sodium Level 142 MMOL/L (136-145) Potassium Level 4.2 MMOL/L (3.5-5.1) Chloride Level 107 MMOL/L (98-107) Carbon Dioxide Level 27 MMOL/L (21-32) Anion Gap 9 mmol/L (5-15) Blood Urea Nitrogen 27 mg/dL (7-18) H Creatinine 1.1 MG/DL (0.55-1.30) Estimat Glomerular Filtration Rate mL/min (>60) Glucose Level 183 MG/DL (74-106) H Calcium Level 8.7 MG/DL (8.5-10.1) Current Medications Medications (Trade) Dose Ordered Sig/Leonor Route PRN Reason Start Time Stop Time Status Last Admin Dose Admin Acetaminophen (Tylenol) 650 mg Q4H PRN NG Mild Pain/Temp > 100.5 07/05/19 05:48 07/28/19 05:47 Amlodipine Besylate (Norvasc) 10 mg DAILY NG 07/05/19 09:00 07/25/19 13:29 07/06/19 09:04 Aspirin (ASA) 325 mg DAILY NG 07/05/19 09:00 07/20/19 21:44 07/06/19 09:00 Clotrimazole (Lotrimin) 1 applic THREE TIMES A DAY TOPIC 07/05/19 09:00 07/12/19 08:59 07/06/19 09:24 Dextrose (Dextrose 50%) 25 ml Q30M PRN IV Hypoglycemia 07/05/19 06:00 07/18/19 12:29 Dextrose (Dextrose 50%) 50 ml Q30M PRN IV Hypoglycemia 07/05/19 06:00 07/18/19 12:29 Hydralazine HCl (Apresoline) 25 mg Q6HR ORAL 07/05/19 06:00 08/01/19 11:59 07/06/19 05:44 Insulin Aspart (NovoLOG) No Dose Q6HR SUBQ 07/05/19 06:00 08/03/19 17:59 07/06/19 12:04 Lisinopril (ZestriL) 10 mg DAILY ORAL 07/05/19 09:00 08/04/19 08:59 07/06/19 09:03 Loperamide HCl (Imodium) 2 mg Q6H PRN NG Diarrhea 07/05/19 05:50 07/29/19 05:49 07/05/19 16:28 Magnesium Hydroxide (Mom) 30 ml HSPRN PRN NG Constipation 07/05/19 05:51 07/21/19 05:50 Metoprolol Tartrate (Lopressor) 12.5 mg Q12HR GT 07/05/19 09:00 08/01/19 20:59 07/06/19 09:04 Minoxidil (Loniten) 2.5 mg Q4H PRN ORAL bp over 160 syst 07/05/19 07:45 08/01/19 11:44 07/05/19 16:28 Nitroglycerin (Nitro-Bid) 1 inch Q6HR TOPIC 07/05/19 06:00 07/31/19 20:59 07/06/19 05:44 Olanzapine (ZyPREXA) 5 mg BEDTIME ORAL 07/05/19 21:00 07/24/19 20:59 07/05/19 20:30 Ondansetron HCl (Zofran) 4 mg Q6H PRN IVP Nausea & Vomiting 07/05/19 06:15 07/21/19 18:14 Bob Gilmore MD Jul 06, 2019 12:19
--- NOTE | 2019-07-06 13:50 | NUR ---
CASE MANAGEMENT:REVIEW 07/06/19 SI: LARGE ACUTE CVA . S/P PEG . HTN 97.3 42 18 167/70 94% ON 3L/NC WBC 14.3 BUN 27 BG 183 IS: LOTRIMIN TP TID ZYPREXA PO QHS LOPRESSOR GT Q12 HYDRALAZINE GT Q6HRS NORVASC GT QD ASA GT QD NITRO-BUD TP Q6HR NOVOLOG SQ Q6HR \: 3E MED SURG UNIT DISCHARGE PLANNING: NEEDS SNF PLACEMENT BUT IS UNFUNDED MEDICAL APPLICATION IN PROCESS NEURO CHECK
--- NOTE | 2019-07-06 15:31 | Pulmonology Progress Note ---
Assessment/Plan Assessment/Plan Problem List: * Respiratory distress/insufficiency * Bibasilar pulmonary infiltrates - likely aspiration pneumonia * Altered mental status * Acute CVA * DM Plan: * Monitor respiratory status, stable * Monitor off abx * PEG placement done * Duonebs * d/c planning Subjective ROS Limited/Unobtainable: Yes Interval Events: Minimal oxygen. Does not talk. Breathing stable. Allergies: Coded Allergies: UNABLE TO ASSESS (Unverified , 06/18/19) Objective Last 24 Hour Vital Signs Date Time Temp Pulse Resp B/P (MAP) Pulse Ox O2 Delivery O2 Flow Rate FiO2 07/06/19 12:24 146/63 07/06/19 12:24 146/63 07/06/19 12:00 97.1 68 18 146/63 (90) 94 07/06/19 09:04 73 150/76 07/06/19 09:04 73 150/76 07/06/19 09:03 150/76 07/06/19 09:00 Nasal Cannula 3.0 07/06/19 08:00 97.3 42 18 167/70 (102) 94 07/06/19 05:44 150/76 07/06/19 05:44 150/76 07/06/19 04:00 98.1 73 18 140/71 (94) 98 07/06/19 00:00 97.6 66 18 150/75 (100) 98 07/05/19 23:54 150/75 07/05/19 23:54 150/78 07/05/19 21:18 Nasal Cannula 3.0 07/05/19 20:30 87 152/73 07/05/19 20:00 98.2 71 20 152/73 (99) 98 07/05/19 17:41 177/70 07/05/19 17:41 177/70 07/05/19 16:28 177/70 07/05/19 16:00 97.7 68 16 177/70 (105) 95 Intake and Output 07/05/19 07/06/19 19:00 07:00 Intake Total 1100 ml 550 ml Balance 1100 ml 550 ml Free Water 500 ml 250 ml Tube Feeding 600 ml 300 ml # Voids 1 4 # Bowel Movements 2 1 General Appearance: no acute distress HEENT: atraumatic Respiratory/Chest: lungs clear Cardiovascular: normal rate Abdomen: soft, non tender Extremities: no edema Laboratory Tests 07/06/19 04:50: White Blood Count 14.3H, Red Blood Count 4.76, Hemoglobin 15.1, Hematocrit 41.7L , Mean Corpuscular Volume 88, Mean Corpuscular Hemoglobin 31.8H, Mean Corpuscular Hemoglobin Concent 36.3H, Red Cell Distribution Width 10.5L, Platelet Count 394, Mean Platelet Volume 7.0, Neutrophils (%) (Auto) 78.8H, Lymphocytes (%) (Auto) 14.3L, Monocytes (%) (Auto) 4.8, Eosinophils (%) (Auto) 1.5, Basophils (%) (Auto) 0.7, Sodium Level 142, Potassium Level 4.2, Chloride Level 107, Carbon Dioxide Level 27, Anion Gap 9, Blood Urea Nitrogen 27H, Creatinine 1.1, Estimat Glomerular Filtration Rate , Glucose Level 183H, Calcium Level 8.7 Current Medications Medications (Trade) Dose Ordered Sig/Leonor Route PRN Reason Start Time Stop Time Status Last Admin Dose Admin Acetaminophen (Tylenol) 650 mg Q4H PRN NG Mild Pain/Temp > 100.5 07/05/19 05:48 07/28/19 05:47 Amlodipine Besylate (Norvasc) 10 mg DAILY NG 07/05/19 09:00 07/25/19 13:29 07/06/19 09:04 Aspirin (ASA) 325 mg DAILY NG 07/05/19 09:00 07/20/19 21:44 07/06/19 09:00 Clotrimazole (Lotrimin) 1 applic THREE TIMES A DAY TOPIC 07/05/19 09:00 07/12/19 08:59 07/06/19 12:25 Dextrose (Dextrose 50%) 25 ml Q30M PRN IV Hypoglycemia 07/05/19 06:00 07/18/19 12:29 Dextrose (Dextrose 50%) 50 ml Q30M PRN IV Hypoglycemia 07/05/19 06:00 07/18/19 12:29 Hydralazine HCl (Apresoline) 25 mg Q6HR ORAL 07/05/19 06:00 08/01/19 11:59 07/06/19 12:24 Insulin Aspart (NovoLOG) No Dose Q6HR SUBQ 07/05/19 06:00 08/03/19 17:59 07/06/19 12:04 Lisinopril (ZestriL) 10 mg DAILY ORAL 07/05/19 09:00 08/04/19 08:59 07/06/19 09:03 Loperamide HCl (Imodium) 2 mg Q6H PRN NG Diarrhea 07/05/19 05:50 07/29/19 05:49 07/05/19 16:28 Magnesium Hydroxide (Mom) 30 ml HSPRN PRN NG Constipation 07/05/19 05:51 07/21/19 05:50 Metoprolol Tartrate (Lopressor) 12.5 mg Q12HR GT 07/05/19 09:00 08/01/19 20:59 07/06/19 09:04 Minoxidil (Loniten) 2.5 mg Q4H PRN ORAL bp over 160 syst 07/05/19 07:45 08/01/19 11:44 07/05/19 16:28 Nitroglycerin (Nitro-Bid) 1 inch Q6HR TOPIC 07/05/19 06:00 07/31/19 20:59 07/06/19 12:24 Olanzapine (ZyPREXA) 5 mg BEDTIME ORAL 07/05/19 21:00 07/24/19 20:59 07/05/19 20:30 Ondansetron HCl (Zofran) 4 mg Q6H PRN IVP Nausea & Vomiting 07/05/19 06:15 07/21/19 18:14 Deni Borges MD Jul 06, 2019 15:31
[2019-07-06 16:00] VITALS: BP 157/57
--- NOTE | 2019-07-06 18:55 | NUR ---
NURSE NOTES: INCONTINENT URINE. MADE CLEAN AND DRY. LOTRIMIN CREAM APPLIED. REPOSITIONED GT FEEDING TOLERATED. HAD BM X1.
--- NOTE | 2019-07-06 19:31 | NUR ---
HAND-OFF: Report given to Hiram IBARRA RN.
[2019-07-06 20:00] VITALS: BP 158/67
--- NOTE | 2019-07-06 22:08 | General Progress Note ---
Assessment/Plan Status: stable, unchanged Assessment/Plan: Assessment - Acute CVA - AMS - Dysphagia - arrhythmia - free water deficit - leukocytosis - suspect aspiration pneumonitis - Loose BM - poor prognosis Recommendations - IVF - Abx - IV hydration - monitor labs - follow BM pattern for now - GT feeds - vital AF Subjective Allergies: Coded Allergies: UNABLE TO ASSESS (Unverified , 06/18/19) Subjective above noted tolerating TF still loose stools advised RN to change TF to vital AF Objective Last 24 Hour Vital Signs Date Time Temp Pulse Resp B/P (MAP) Pulse Ox O2 Delivery O2 Flow Rate FiO2 07/06/19 20:43 42 162/81 07/06/19 18:06 162/81 07/06/19 18:06 162/81 07/06/19 16:00 98.1 42 20 157/57 (90) 98 07/06/19 12:24 146/63 07/06/19 12:24 146/63 07/06/19 12:00 97.1 68 18 146/63 (90) 94 07/06/19 09:04 73 150/76 07/06/19 09:04 73 150/76 07/06/19 09:03 150/76 07/06/19 09:00 Nasal Cannula 3.0 07/06/19 08:00 97.3 42 18 167/70 (102) 94 07/06/19 05:44 150/76 07/06/19 05:44 150/76 07/06/19 04:00 98.1 73 18 140/71 (94) 98 07/06/19 00:00 97.6 66 18 150/75 (100) 98 07/05/19 23:54 150/75 07/05/19 23:54 150/78 Intake and Output 07/05/19 07/06/19 19:00 07:00 Intake Total 1100 ml 550 ml Balance 1100 ml 550 ml Free Water 500 ml 250 ml Tube Feeding 600 ml 300 ml # Voids 1 4 # Bowel Movements 2 1 Laboratory Tests 07/06/19 04:50: White Blood Count 14.3H, Red Blood Count 4.76, Hemoglobin 15.1, Hematocrit 41.7L , Mean Corpuscular Volume 88, Mean Corpuscular Hemoglobin 31.8H, Mean Corpuscular Hemoglobin Concent 36.3H, Red Cell Distribution Width 10.5L, Platelet Count 394, Mean Platelet Volume 7.0, Neutrophils (%) (Auto) 78.8H, Lymphocytes (%) (Auto) 14.3L, Monocytes (%) (Auto) 4.8, Eosinophils (%) (Auto) 1.5, Basophils (%) (Auto) 0.7, Sodium Level 142, Potassium Level 4.2, Chloride Level 107, Carbon Dioxide Level 27, Anion Gap 9, Blood Urea Nitrogen 27H, Creatinine 1.1, Estimat Glomerular Filtration Rate , Glucose Level 183H, Calcium Level 8.7 Height (Feet): 5 Height (Inches): 8.00 Weight (Pounds): 155 Objective Elderly man NCAT supple Coarse BS RR abd soft no edema Barb Lee MD Jul 06, 2019 22:08
[2019-07-07] VITALS (9 sets, daily range): BP systolic 128–170; BP diastolic 57–82
--- NOTE | 2019-07-07 04:16 | NUR ---
NURSE NOTES: Patient continues to have diarrhea. Soft wrist restraint on left noted, skin underneath asymptomatic, pulse normal. IV access patent, on tko. Will monitor blood sugar per MD order.
[2019-07-07] MEDS: Nitroglycerin 2% oint pkt TOPIC SCH ×4 (05:01→23:14)
[2019-07-07] MEDS: HydrALAZINE 25mg tab ORAL SCH ×4 (05:02→23:14)
[2019-07-07] MEDS: NovoLOG Insulin Flexpen SUBQ SCH ×4 (05:46→23:26)
--- NOTE | 2019-07-07 07:12 | NUR ---
HAND-OFF: Report given to JUSTINO Cedillo.
--- NOTE | 2019-07-07 07:15 | NUR ---
NURSE NOTES: Report received from Dimple BADILLO, rounds made. Patient sleeping, easily arousable. Non-verbal, no distress on O2 2LNC, calm. NPO, will provide oral care every 2 hours. GT infusing TF Vital AF 1.2 mickey at 60 ml/hr, GT dressing CDI. HOB elevated. Left wrist restraint on. Bilateral SCDs on. Right heel Optifoam in place, heels floating. LFA (site with dried bloody, patent), IV NS TKO. Call light in reach, bed in lowest position, will continue to monitor.
--- NOTE | 2019-07-07 07:20 | Progress Note ---
DATE: 07/07/2019 SUBJECTIVE: The patient is nonverbal, in soft restraints, confused, and episodes of agitation manageable. MENTAL STATUS EXAMINATION: The patient is alert and confused. Mood is neutral. Affect is flat. Thought process is concrete. Thought content, no suicidal or homicidal ideations. ASSESSMENT: Dementia with behavior disturbance. PLAN: 1. We will continue current medications. 2. Provide the patient with reality orientation and supportive therapy. Jessica Quinonez M.D. DR: ROBERTO JOB#: [id number] CC: MELINDA
--- NOTE | 2019-07-07 09:38 | Pulmonology Progress Note ---
Assessment/Plan Assessment/Plan Problem List: * Respiratory distress/insufficiency * Bibasilar pulmonary infiltrates - likely aspiration pneumonia * Altered mental status * Acute CVA * DM Plan: * Monitor respiratory status, stable * Monitor off abx * PEG placement done * Duonebs * d/c planning Subjective ROS Limited/Unobtainable: Yes Interval Events: Breathing stable. No fevers. Remains on oxygen. Allergies: Coded Allergies: UNABLE TO ASSESS (Unverified , 06/18/19) Objective Last 24 Hour Vital Signs Date Time Temp Pulse Resp B/P (MAP) Pulse Ox O2 Delivery O2 Flow Rate FiO2 07/07/19 08:00 98.0 97 18 161/82 (108) 96 07/07/19 05:02 157/71 07/07/19 05:01 157/71 07/07/19 04:00 97.5 54 16 157/71 (99) 98 07/07/19 00:06 97.8 63 15 128/68 (88) 98 07/06/19 23:48 162/81 07/06/19 23:47 162/81 07/06/19 23:33 Nasal Cannula 3.0 07/06/19 20:43 42 162/81 07/06/19 20:00 97.5 47 16 158/67 (97) 98 07/06/19 18:06 162/81 07/06/19 18:06 162/81 07/06/19 16:00 98.1 42 20 157/57 (90) 98 07/06/19 12:24 146/63 07/06/19 12:24 146/63 07/06/19 12:00 97.1 68 18 146/63 (90) 94 Intake and Output 07/06/19 07/07/19 19:00 07:00 Intake Total 1410 ml Balance 1410 ml Free Water 750 ml Tube Feeding 660 ml # Voids 4 # Bowel Movements 1 1 General Appearance: no acute distress HEENT: PERRL Respiratory/Chest: lungs clear Cardiovascular: normal rate Abdomen: soft, non tender Extremities: no edema Neurologic/Psychiatric: alert Current Medications Medications (Trade) Dose Ordered Sig/Leonor Route PRN Reason Start Time Stop Time Status Last Admin Dose Admin Acetaminophen (Tylenol) 650 mg Q4H PRN NG Mild Pain/Temp > 100.5 07/05/19 05:48 07/28/19 05:47 Amlodipine Besylate (Norvasc) 10 mg DAILY NG 07/05/19 09:00 07/25/19 13:29 07/06/19 09:04 Aspirin (ASA) 325 mg DAILY NG 07/05/19 09:00 07/20/19 21:44 07/06/19 09:00 Clotrimazole (Lotrimin) 1 applic THREE TIMES A DAY TOPIC 07/05/19 09:00 07/12/19 08:59 07/06/19 18:06 Dextrose (Dextrose 50%) 25 ml Q30M PRN IV Hypoglycemia 07/05/19 06:00 07/18/19 12:29 Dextrose (Dextrose 50%) 50 ml Q30M PRN IV Hypoglycemia 07/05/19 06:00 07/18/19 12:29 Hydralazine HCl (Apresoline) 25 mg Q6HR ORAL 07/05/19 06:00 08/01/19 11:59 07/07/19 05:02 Insulin Aspart (NovoLOG) No Dose Q6HR SUBQ 07/05/19 06:00 08/03/19 17:59 07/06/19 12:04 Lisinopril (ZestriL) 10 mg DAILY ORAL 07/05/19 09:00 08/04/19 08:59 07/06/19 09:03 Loperamide HCl (Imodium) 2 mg Q6H PRN NG Diarrhea 07/05/19 05:50 07/29/19 05:49 07/05/19 16:28 Magnesium Hydroxide (Mom) 30 ml HSPRN PRN NG Constipation 07/05/19 05:51 07/21/19 05:50 Metoprolol Tartrate (Lopressor) 12.5 mg Q12HR GT 07/05/19 09:00 08/01/19 20:59 07/06/19 20:43 Minoxidil (Loniten) 2.5 mg Q4H PRN ORAL bp over 160 syst 07/05/19 07:45 08/01/19 11:44 07/05/19 16:28 Nitroglycerin (Nitro-Bid) 1 inch Q6HR TOPIC 07/05/19 06:00 07/31/19 20:59 07/07/19 05:01 Olanzapine (ZyPREXA) 5 mg BEDTIME ORAL 07/05/19 21:00 07/24/19 20:59 07/06/19 20:43 Ondansetron HCl (Zofran) 4 mg Q6H PRN IVP Nausea & Vomiting 07/05/19 06:15 07/21/19 18:14 Deni Borges MD Jul 07, 2019 09:38
[2019-07-07] MEDS: Lisinopril 10mg tab ORAL SCH ×2 (10:02→19:05)
[2019-07-07] MEDS: Metoprolol Tartrate 12.5mg TAB GT SCH ×2 (10:02→23:10)
--- NOTE | 2019-07-07 10:57 | Infectious Diseases Prog Note ---
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 Aphasia R hemiplegia RECOMMENDATION: Observe off antibiotic Subjective ROS Limited/Unobtainable: Yes Neurologic: Reports: confusion, other - on restraint Allergies: Coded Allergies: UNABLE TO ASSESS (Unverified , 06/18/19) Objective Vital Signs Last 24 Hour Vital Signs Date Time Temp Pulse Resp B/P (MAP) Pulse Ox O2 Delivery O2 Flow Rate FiO2 07/07/19 10:02 97 161/82 07/07/19 10:02 161/82 07/07/19 09:59 97 161/82 07/07/19 08:00 98.0 97 18 161/82 (108) 96 07/07/19 05:02 157/71 07/07/19 05:01 157/71 07/07/19 04:00 97.5 54 16 157/71 (99) 98 07/07/19 00:06 97.8 63 15 128/68 (88) 98 07/06/19 23:48 162/81 07/06/19 23:47 162/81 07/06/19 23:33 Nasal Cannula 3.0 07/06/19 20:43 42 162/81 07/06/19 20:00 97.5 47 16 158/67 (97) 98 07/06/19 18:06 162/81 07/06/19 18:06 162/81 07/06/19 16:00 98.1 42 20 157/57 (90) 98 07/06/19 12:24 146/63 07/06/19 12:24 146/63 07/06/19 12:00 97.1 68 18 146/63 (90) 94 Height (Feet): 5 Height (Inches): 8.00 Weight (Pounds): 155 General Appearance: no acute distress HEENT: mucous membranes moist Respiratory/Chest: lungs clear Cardiovascular: normal rate Abdomen: soft, non tender Extremities: no edema Neurologic/Psychiatric: other - slee[ping Current Medications Medications (Trade) Dose Ordered Sig/Leonor Route PRN Reason Start Time Stop Time Status Last Admin Dose Admin Acetaminophen (Tylenol) 650 mg Q4H PRN NG Mild Pain/Temp > 100.5 07/05/19 05:48 07/28/19 05:47 Amlodipine Besylate (Norvasc) 10 mg DAILY NG 07/05/19 09:00 07/25/19 13:29 07/07/19 09:59 Aspirin (ASA) 325 mg DAILY NG 07/05/19 09:00 07/20/19 21:44 07/07/19 09:57 Clotrimazole (Lotrimin) 1 applic THREE TIMES A DAY TOPIC 07/05/19 09:00 07/12/19 08:59 07/07/19 10:02 Dextrose (Dextrose 50%) 25 ml Q30M PRN IV Hypoglycemia 07/05/19 06:00 07/18/19 12:29 Dextrose (Dextrose 50%) 50 ml Q30M PRN IV Hypoglycemia 07/05/19 06:00 07/18/19 12:29 Hydralazine HCl (Apresoline) 25 mg Q6HR ORAL 07/05/19 06:00 08/01/19 11:59 07/07/19 05:02 Insulin Aspart (NovoLOG) No Dose Q6HR SUBQ 07/05/19 06:00 08/03/19 17:59 07/06/19 12:04 Lisinopril (ZestriL) 10 mg DAILY ORAL 07/05/19 09:00 08/04/19 08:59 07/07/19 10:02 Loperamide HCl (Imodium) 2 mg Q6H PRN NG Diarrhea 07/05/19 05:50 07/29/19 05:49 07/05/19 16:28 Magnesium Hydroxide (Mom) 30 ml HSPRN PRN NG Constipation 07/05/19 05:51 07/21/19 05:50 Metoprolol Tartrate (Lopressor) 12.5 mg Q12HR GT 07/05/19 09:00 08/01/19 20:59 07/07/19 10:02 Minoxidil (Loniten) 2.5 mg Q4H PRN ORAL bp over 160 syst 07/05/19 07:45 08/01/19 11:44 07/05/19 16:28 Nitroglycerin (Nitro-Bid) 1 inch Q6HR TOPIC 07/05/19 06:00 07/31/19 20:59 07/07/19 05:01 Olanzapine (ZyPREXA) 5 mg BEDTIME ORAL 07/05/19 21:00 07/24/19 20:59 07/06/19 20:43 Ondansetron HCl (Zofran) 4 mg Q6H PRN IVP Nausea & Vomiting 07/05/19 06:15 07/21/19 18:14 Bob Gilmore MD Jul 07, 2019 10:57
--- NOTE | 2019-07-07 12:41 | General Progress Note ---
Assessment/Plan Problem List: (1) Cellulitis of right hand ICD Codes: L03.113 - Cellulitis of right upper limb SNOMED: 02999850 (2) Altered level of consciousness ICD Codes: R40.4 - Transient alteration of awareness SNOMED: 0502417 (3) Sepsis ICD Codes: A41.9 - Sepsis, unspecified organism SNOMED: 11967057 Qualifiers: Qualified Codes: A41.9 - Sepsis, unspecified organism (4) Left middle cerebral artery stroke ICD Codes: I63.512 - Cerebral infarction due to unspecified occlusion or stenosis of left middle cerebral artery SNOMED: 518282068 (5) Left carotid artery occlusion ICD Codes: I65.22 - Occlusion and stenosis of left carotid artery SNOMED: 312182464565086 (6) Hypernatremia Assessment & Plan: better ICD Codes: E87.0 - Hyperosmolality and hypernatremia SNOMED: 046112464 (7) Hypokalemia Assessment & Plan: better ICD Codes: E87.6 - Hypokalemia SNOMED: 69830700 (8) DM (diabetes mellitus) ICD Codes: E11.9 - Type 2 diabetes mellitus without complications SNOMED: 72351299 (9) Pneumonia ICD Codes: J18.9 - Pneumonia, unspecified organism SNOMED: 515340115 (10) ARF (acute renal failure) Assessment & Plan: no change ICD Codes: N17.9 - Acute kidney failure, unspecified SNOMED: 13660874 Status: stable, unchanged Assessment/Plan: continue ASA TF SSI cont Duoneb start clonidine follow labs Subjective Allergies: Coded Allergies: UNABLE TO ASSESS (Unverified , 06/18/19) Subjective In NAD Objective Last 24 Hour Vital Signs Date Time Temp Pulse Resp B/P (MAP) Pulse Ox O2 Delivery O2 Flow Rate FiO2 07/07/19 10:02 97 161/82 07/07/19 10:02 161/82 07/07/19 09:59 97 161/82 07/07/19 09:00 Nasal Cannula 2.0 07/07/19 08:00 98.0 97 18 161/82 (108) 96 07/07/19 05:02 157/71 07/07/19 05:01 157/71 07/07/19 04:00 97.5 54 16 157/71 (99) 98 07/07/19 00:06 97.8 63 15 128/68 (88) 98 07/06/19 23:48 162/81 07/06/19 23:47 162/81 07/06/19 23:33 Nasal Cannula 3.0 07/06/19 20:43 42 162/81 07/06/19 20:00 97.5 47 16 158/67 (97) 98 07/06/19 18:06 162/81 07/06/19 18:06 162/81 07/06/19 16:00 98.1 42 20 157/57 (90) 98 Intake and Output 07/06/19 07/07/19 19:00 07:00 Intake Total 1410 ml 60 ml Balance 1410 ml 60 ml Free Water 750 ml Tube Feeding 660 ml 60 ml # Voids 4 # Bowel Movements 1 1 Height (Feet): 5 Height (Inches): 8.00 Weight (Pounds): 155 Cardiovascular: normal rate Respiratory/Chest: rhonchi - bilaterally Edema: no edema noted Generalized Kaz Gilmore MD Jul 07, 2019 12:41
[2019-07-07] MEDS ORDERED: Sterile Water Irrig 1000ml IRRIG ONE (15:11)
--- NOTE | 2019-07-07 15:30 | NUR ---
NURSE NOTES: Dr. Gilmore notified of HR 38-40 and blood pressure 150/57mmHg, asymptomatic, medications reconciled, see order for updates.
--- NOTE | 2019-07-07 15:30 | NUR ---
CASE MANAGEMENT:REVIEW 07/07/19 SI: LARGE ACUTE CVA. DYSPHAGIA...S/P PEG 97.0 42 18 132/69 97% ON RA IS: MINOXIDIL GT BID LISINOPRIL GT BID ZYPREXA GT QHS NORVASC GT QD ASA GT QD LOPRESSOR GT Q12 : MED/SURG STATUS 3 EAST DCP: PLACEMENT ONCE MCAL HAS BEEN APPROVED
--- NOTE | 2019-07-07 17:28 | Cardiology Progress Note ---
Assessment/Plan Assessment/Plan 1. Respiratory insufficiency. 2. Cerebrovascular accident. 3. Premature ventricular complexes. 4. Interstitial infiltrates. 5. Altered mentation. 6. CVA. 7. Hypernatremia. 8. Renal insufficiency. 9. NSVT s/p peg ef 65-70 tele sinus on bp meds on increase acei k was ok yest will check lab in Subjective ROS Limited/Unobtainable: Yes Subjective altered mentation Objective Last 24 Hour Vital Signs Date Time Temp Pulse Resp B/P (MAP) Pulse Ox O2 Delivery O2 Flow Rate FiO2 07/07/19 14:58 150/57 07/07/19 14:50 150/57 (88) 07/07/19 12:41 132/69 07/07/19 12:41 132/69 07/07/19 12:00 97.0 42 18 132/69 (90) 97 07/07/19 10:02 97 161/82 07/07/19 10:02 161/82 07/07/19 09:59 97 161/82 07/07/19 09:00 Nasal Cannula 2.0 07/07/19 08:00 98.0 97 18 161/82 (108) 96 07/07/19 05:02 157/71 07/07/19 05:01 157/71 07/07/19 04:00 97.5 54 16 157/71 (99) 98 07/07/19 00:06 97.8 63 15 128/68 (88) 98 07/06/19 23:48 162/81 07/06/19 23:47 162/81 07/06/19 23:33 Nasal Cannula 3.0 07/06/19 20:43 42 162/81 07/06/19 20:00 97.5 47 16 158/67 (97) 98 07/06/19 18:06 162/81 07/06/19 18:06 162/81 General Appearance: no apparent distress, other - awake Cardiovascular: normal rate Respiratory/Chest: lungs clear - ant Abdomen: normal bowel sounds, non tender, soft Extremities: no swelling Intake and Output 07/06/19 07/07/19 19:00 07:00 Intake Total 1410 ml 60 ml Balance 1410 ml 60 ml Free Water 750 ml Tube Feeding 660 ml 60 ml # Voids 4 # Bowel Movements 1 1 Chris Melgar MD Jul 07, 2019 17:28
--- NOTE | 2019-07-07 18:30 | NUR ---
NURSE NOTES: Patient repositioned every 2hours, skin care provided. Condom cath applied at 1100, but did not remain in place. Left wrist restraint discontinued at [address] Quinonez. Patient remained calm throughout shift. Skin remains intact, sacral cleansed, dried, applied Lotrimin and Triad. Right heel skin intact. Bilateral heels floating. GT dressing changed in AM, placement checked, no residual, HOB elevated. No BM throughout shift, will endorse stool for CDIFF needed for next shift.
[2019-07-07] MEDS: Minoxidil 2.5mg tab ORAL SCH (19:04)
--- NOTE | 2019-07-07 19:15 | NUR ---
NURSE NOTES:WOUND CARE FOLLOW-UP NOTES:Incontinence Associated Dermatitis noted to bilat groin,scrotum and buttocks. Skin is less erythematous in comparison to initial skin assessment. Denuded area noted to cleft of buttocks. Moisture Barrier paste applied to affected areas. Optifoam drsg applied to Sacrum for protection against friction. Both heels are soft but blanchable. No new skin concerns noted. Wound Tx. Are effective and continued as ordered. All wound prevention protocols continued as care-planned.
--- NOTE | 2019-07-07 19:40 | NUR ---
HAND-OFF: Report given to Lyric BADILLO, rounds made. Addendum: 07/07/19 at 2120 by Nguyen Araiza RN Endorsed stool for CDIFF still needed.
--- NOTE | 2019-07-07 22:27 | General Progress Note ---
Assessment/Plan Status: stable, unchanged Assessment/Plan: Assessment - Acute CVA - AMS - Dysphagia - arrhythmia - free water deficit - poor prognosis Recommendations - IVF - Abx - IV hydration - monitor labs - follow BM pattern - GT feeds - vital AF Subjective Allergies: Coded Allergies: UNABLE TO ASSESS (Unverified , 06/18/19) Subjective above noted tolerating TF Objective Last 24 Hour Vital Signs Date Time Temp Pulse Resp B/P (MAP) Pulse Ox O2 Delivery O2 Flow Rate FiO2 07/07/19 22:06 97.7 41 15 167/73 (104) 94 07/07/19 20:21 Nasal Cannula 2.0 07/07/19 19:54 92 Nasal Cannula 1.0 24 07/07/19 19:05 170/74 07/07/19 19:05 170/74 07/07/19 19:05 170/74 07/07/19 19:04 170/74 07/07/19 19:00 41 170/74 (106) 07/07/19 16:00 98.6 38 20 131/73 (92) 98 07/07/19 15:25 38 131/73 (92) 40 07/07/19 14:58 150/57 07/07/19 14:50 150/57 (88) 07/07/19 12:41 132/69 07/07/19 12:41 132/69 07/07/19 12:00 97.0 42 18 132/69 (90) 97 07/07/19 10:02 97 161/82 07/07/19 10:02 161/82 07/07/19 09:59 97 161/82 07/07/19 09:00 Nasal Cannula 2.0 07/07/19 08:00 98.0 97 18 161/82 (108) 96 07/07/19 05:02 157/71 07/07/19 05:01 157/71 07/07/19 04:00 97.5 54 16 157/71 (99) 98 07/07/19 00:06 97.8 63 15 128/68 (88) 98 07/06/19 23:48 162/81 07/06/19 23:47 162/81 07/06/19 23:33 Nasal Cannula 3.0 Intake and Output 07/06/19 07/07/19 19:00 07:00 Intake Total 1410 ml 60 ml Balance 1410 ml 60 ml Free Water 750 ml Tube Feeding 660 ml 60 ml # Voids 4 # Bowel Movements 1 1 Height (Feet): 5 Height (Inches): 8.00 Weight (Pounds): 155 Objective Elderly man NCAT supple Coarse BS RR abd soft no edema Barb Lee MD Jul 07, 2019 22:26
--- NOTE | 2019-07-07 23:49 | NUR ---
NURSE NOTES: Received report from JUSTINO Cedillo. Patient is in bed, awake and nonverbal. G-tube in place and running as ordered. IV intact and patent. Bed locked and in lowest position. Bed alarm on. Will continue to monitor.
[2019-07-08] VITALS (9 sets, daily range): BP systolic 114–150; BP diastolic 49–74
--- NOTE | 2019-07-08 00:45 | Progress Note ---
DATE: 07/07/2019 SUBJECTIVE: The patient is doing better, calmer, on restraints, spoke with charge nurse to take the patient off restrains. The patient is still confused, however, manageable. The patient is awaiting placement. No behavior issues noted. MENTAL STATUS EXAMINATION: The patient is asleep, arousable, confused disoriented. Mood is neutral. Affect is flat. Thought process, there is a paucity of thought content. Thought content, no suicidal or homicidal ideation. Cognition is impaired. Insight and judgment impaired. ASSESSMENT: Dementia with behavior disturbance. PLAN: 1. We will continue current psychotropic medications. 2. Continue to follow and readjust the medications. Jessica Quinonez M.D. DR: Natalia JOB#: [id number] CC:
[2019-07-08] MEDS: Nitroglycerin 2% oint pkt TOPIC SCH ×4 (05:31→18:48)
[2019-07-08] MEDS: HydrALAZINE 25mg tab ORAL SCH ×4 (05:31→18:47)
[2019-07-08] MEDS: NovoLOG Insulin Flexpen SUBQ SCH ×3 (06:57→18:49)
[2019-07-08 07:12] LABS: ANION GAP 11 mmol/L (5-15); BLOOD UREA NITROGEN 46 mg/dL (7-18); CALCIUM 8.8 MG/DL (8.5-10.1); CARBON DIOXIDE 24 MMOL/L (21-32); CHLORIDE 106 MMOL/L (98-107); CREATININE 1.3 MG/DL (0.55-1.30); POTASSIUM 4.2 MMOL/L (3.5-5.1); SODIUM 141 MMOL/L (136-145)
--- NOTE | 2019-07-08 07:15 | NUR ---
NURSE NOTES: Report received from Lyric BADILLO, rounds made. Patient alert, non-verbal, calm in semi-fowlers position. No distress on O2 2LNC. GT intact, TF Vital AF 1.2 at 60 ml/hr. Patient remains NPO, will provide oral/skin care/reposition Q2H. LFA heplock intact. Bilateral SCDs on. Call light in reach, bed in lowest position, will continue to monitor.
--- NOTE | 2019-07-08 07:32 | NUR ---
HAND-OFF: Report given to JUSTINO Cedillo.
[2019-07-08 07:36] LABS: BASOPHILS % (AUTO) 0.9 % (0.0-2.0); EOSINOPHILS % (AUTO) 1.5 % (0.0-3.0); HEMATOCRIT 41.2 % (42.0-52.0); HEMOGLOBIN 15.2 G/DL (14.2-18.0); LYMPHOCYTES % (AUTO) 18.2 % (20.0-45.0); MEAN CORPUSCULAR VOLUME 86 FL (80-99); MONOCYTES % (AUTO) 5.9 % (1.0-10.0); NEUTROPHILS % (AUTO) 73.5 % (45.0-75.0); PLATELET COUNT 402 K/UL (150-450); RED BLOOD COUNT 4.81 M/UL (4.70-6.10); RED CELL DISTRIBUTION WIDTH 12.1 % (11.6-14.8); WHITE BLOOD COUNT 15.5 K/UL (4.8-10.8)
[2019-07-08] MEDS: Metoprolol Tartrate 12.5mg TAB GT SCH ×2 (09:00→21:00)
--- NOTE | 2019-07-08 09:11 | Pulmonology Progress Note ---
Assessment/Plan Assessment/Plan Problem List: * Respiratory distress/insufficiency * Bibasilar pulmonary infiltrates - likely aspiration pneumonia * Altered mental status * Acute CVA * DM Plan: * Monitor respiratory status, stable * Monitor off abx * PEG placement done * Duonebs * d/c planning Subjective ROS Limited/Unobtainable: Yes Interval Events: no acute events. breathing stable. Allergies: Coded Allergies: UNABLE TO ASSESS (Unverified , 06/18/19) All Systems: reviewed and negative except above Objective Last 24 Hour Vital Signs Date Time Temp Pulse Resp B/P (MAP) Pulse Ox O2 Delivery O2 Flow Rate FiO2 07/08/19 05:31 150/56 07/08/19 05:31 150/56 07/08/19 04:00 98.1 43 15 150/56 (87) 95 07/08/19 00:00 97.5 42 16 136/65 (88) 95 07/07/19 23:14 167/73 07/07/19 23:14 167/73 07/07/19 23:10 41 167/73 07/07/19 22:06 97.7 41 15 167/73 (104) 94 07/07/19 20:21 Nasal Cannula 2.0 07/07/19 19:54 92 Nasal Cannula 1.0 24 07/07/19 19:05 170/74 07/07/19 19:05 170/74 07/07/19 19:05 170/74 07/07/19 19:04 170/74 07/07/19 19:00 41 170/74 (106) 07/07/19 16:00 98.6 38 20 131/73 (92) 98 07/07/19 15:25 38 131/73 (92) 40 07/07/19 14:58 150/57 07/07/19 14:50 150/57 (88) 07/07/19 12:41 132/69 07/07/19 12:41 132/69 07/07/19 12:00 97.0 42 18 132/69 (90) 97 07/07/19 10:02 97 161/82 07/07/19 10:02 161/82 07/07/19 09:59 97 161/82 Intake and Output 07/07/19 07/08/19 18:59 06:59 Intake Total 1070 ml 780 ml Balance 1070 ml 780 ml Free Water 350 ml Tube Feeding 720 ml 780 ml # Voids 4 # Bowel Movements 2 General Appearance: no acute distress HEENT: mucous membranes moist Respiratory/Chest: lungs clear Cardiovascular: normal rate Abdomen: soft, non tender Extremities: no edema Laboratory Tests 07/08/19 05:35: White Blood Count 15.5H, Red Blood Count 4.81, Hemoglobin 15.2, Hematocrit 41.2L , Mean Corpuscular Volume 86, Mean Corpuscular Hemoglobin 31.6H, Mean Corpuscular Hemoglobin Concent 36.9H, Red Cell Distribution Width 12.1, Platelet Count 402, Mean Platelet Volume 7.1, Neutrophils (%) (Auto) 73.5, Lymphocytes (%) (Auto) 18.2L, Monocytes (%) (Auto) 5.9, Eosinophils (%) (Auto) 1.5, Basophils (%) (Auto) 0.9, Sodium Level 141, Potassium Level 4.2, Chloride Level 106, Carbon Dioxide Level 24, Anion Gap 11, Blood Urea Nitrogen 46H, Creatinine 1.3, Estimat Glomerular Filtration Rate , Glucose Level 190H, Calcium Level 8.8 Current Medications Medications (Trade) Dose Ordered Sig/Leonor Route PRN Reason Start Time Stop Time Status Last Admin Dose Admin Acetaminophen (Tylenol) 650 mg Q4H PRN NG Mild Pain/Temp > 100.5 07/05/19 05:48 07/28/19 05:47 Amlodipine Besylate (Norvasc) 10 mg DAILY NG 07/05/19 09:00 07/25/19 13:29 07/07/19 09:59 Aspirin (ASA) 325 mg DAILY NG 07/05/19 09:00 07/20/19 21:44 07/07/19 09:57 Clotrimazole (Lotrimin) 1 applic THREE TIMES A DAY TOPIC 07/05/19 09:00 07/12/19 08:59 07/07/19 19:04 Dextrose (Dextrose 50%) 25 ml Q30M PRN IV Hypoglycemia 07/05/19 06:00 07/18/19 12:29 Dextrose (Dextrose 50%) 50 ml Q30M PRN IV Hypoglycemia 07/05/19 06:00 07/18/19 12:29 Hydralazine HCl (Apresoline) 25 mg Q6HR ORAL 07/05/19 06:00 08/01/19 11:59 07/08/19 05:31 Insulin Aspart (NovoLOG) No Dose Q6HR SUBQ 07/05/19 06:00 08/03/19 17:59 07/08/19 06:57 Lisinopril (ZestriL) 10 mg BID ORAL 07/07/19 18:00 08/06/19 17:59 07/07/19 19:05 Loperamide HCl (Imodium) 2 mg Q6H PRN NG Diarrhea 07/05/19 05:50 07/29/19 05:49 07/05/19 16:28 Magnesium Hydroxide (Mom) 30 ml HSPRN PRN NG Constipation 07/05/19 05:51 07/21/19 05:50 Metoprolol Tartrate (Lopressor) 12.5 mg Q12HR GT 07/05/19 09:00 08/01/19 20:59 07/07/19 10:02 Minoxidil (Loniten) 2.5 mg Q4H PRN ORAL bp over 160 syst 07/05/19 07:45 08/01/19 11:44 07/05/19 16:28 Minoxidil (Loniten) 5 mg TWICE A DAY ORAL 07/07/19 18:00 08/06/19 17:59 07/07/19 19:04 Nitroglycerin (Nitro-Bid) 1 inch Q6HR TOPIC 07/05/19 06:00 07/31/19 20:59 07/08/19 05:31 Olanzapine (ZyPREXA) 5 mg BEDTIME ORAL 07/05/19 21:00 07/24/19 20:59 07/07/19 23:14 Ondansetron HCl (Zofran) 4 mg Q6H PRN IVP Nausea & Vomiting 07/05/19 06:15 07/21/19 18:14 Deni Borges MD Jul 08, 2019 09:11
[2019-07-08] MEDS: Minoxidil 2.5mg tab ORAL SCH ×2 (09:54→18:48)
[2019-07-08] MEDS: Lisinopril 10mg tab ORAL SCH ×2 (10:05→18:47)
--- NOTE | 2019-07-08 11:35 | NUR ---
RD ASSESSMENT & RECOMMENDATIONS SEE CARE ACTIVITY FOR COMPLETE ASSESSMENT DAILY ESTIMATED NEEDS: Needs based on sepsis, DTPI 72kg adj 25-30 kcals/kg 4031-1641 total kcals 1.25-2 g protein/kg 90-144 g total protein 25-30 mL/kg 5112-0321 total fluid mLs NUTRITION DIAGNOSIS: * Swallowing difficulty R/T dysphagia, s/p new and old CVA as evidenced by NPO per TIPPLE ENGINEER rec, has been on NGT feeds, s/p PEG placement this AM, NPO at this time. * Altered nutrition related lab values r/t sepsis, DM, volume deficit as evidenced by elev WBC (18.2), elev POC glu (134-201) w/ A1C 6.9, elev Na (153-> wnl), elev BUN (46), elev creat (1.5-> wnl) CURRENT TF:Vital 1.2 @60ml x24 hrs ENTERAL NUTRITION RECOMMENDATIONS: VITAL 1.2 @ 65ml/hr x 24 hrs to provide 1560ml, 1872kcal, 117g prot, 1265ml free water - rec goal as above as tolerated. - HOB over 30 degrees - H20 flush of 150ml q 4 hrs ADDITIONAL RECOMMENDATIONS: 1) Maintain calibrated bed scale wts 2) Monitor for readiness fo oral grat, MBSS- monitor TIPPLE ENGINEER rec 3) Monitor BGs closely-consider long acting insulin for improved BG control 4) F/up WC eval: rec Vit C 250mg QD rec Osbaldo 1pkt BID via PEG (mix w/ 4oz water) 5) Monitor lytes, replete as needed 6) Probiotics w/ continued diarrhea.
--- NOTE | 2019-07-08 13:46 | Infectious Diseases Prog Note ---
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 Aphasia R hemiplegia Leukocytosis RECOMMENDATION: Observe off antibiotic CXR Subjective ROS Limited/Unobtainable: Yes Constitutional: Denies: fever Allergies: Coded Allergies: UNABLE TO ASSESS (Unverified , 06/18/19) Objective Vital Signs Last 24 Hour Vital Signs Date Time Temp Pulse Resp B/P (MAP) Pulse Ox O2 Delivery O2 Flow Rate FiO2 07/08/19 13:39 136/49 07/08/19 13:39 136/49 07/08/19 12:00 96.6 43 18 124/61 (82) 93 07/08/19 10:05 128/66 07/08/19 09:54 128/66 07/08/19 09:50 40 128/66 (86) 07/08/19 09:00 40 128/66 07/08/19 09:00 40 128/66 07/08/19 09:00 Nasal Cannula 2.0 07/08/19 08:00 97.0 74 20 124/74 (91) 92 07/08/19 05:31 150/56 07/08/19 05:31 150/56 07/08/19 04:00 98.1 43 15 150/56 (87) 95 07/08/19 00:00 97.5 42 16 136/65 (88) 95 07/07/19 23:14 167/73 07/07/19 23:14 167/73 07/07/19 23:10 41 167/73 07/07/19 22:06 97.7 41 15 167/73 (104) 94 07/07/19 20:21 Nasal Cannula 2.0 07/07/19 19:54 92 Nasal Cannula 1.0 24 07/07/19 19:05 170/74 07/07/19 19:05 170/74 07/07/19 19:05 170/74 07/07/19 19:04 170/74 07/07/19 19:00 41 170/74 (106) 07/07/19 16:00 98.6 38 20 131/73 (92) 98 07/07/19 15:25 38 131/73 (92) 40 07/07/19 14:58 150/57 07/07/19 14:50 150/57 (88) Height (Feet): 5 Height (Inches): 8.00 Weight (Pounds): 155 General Appearance: no acute distress HEENT: mucous membranes moist Respiratory/Chest: crackles/rales Cardiovascular: bradycardia Abdomen: other Extremities: no edema Neurologic/Psychiatric: aphasia, other - R hemiplegia Microbiology Date/Time Source Procedure Growth Status 07/07/19 22:55 Stool Clostridium difficile Toxin Assay - Final Complete Laboratory Tests Test 07/08/19 05:35 White Blood Count 15.5 K/UL (4.8-10.8) H Red Blood Count 4.81 M/UL (4.70-6.10) Hemoglobin 15.2 G/DL (14.2-18.0) Hematocrit 41.2 % (42.0-52.0) L Mean Corpuscular Volume 86 FL (80-99) Mean Corpuscular Hemoglobin 31.6 PG (27.0-31.0) H Mean Corpuscular Hemoglobin Concent 36.9 G/DL (32.0-36.0) H Red Cell Distribution Width 12.1 % (11.6-14.8) Platelet Count 402 K/UL (150-450) Mean Platelet Volume 7.1 FL (6.5-10.1) Neutrophils (%) (Auto) 73.5 % (45.0-75.0) Lymphocytes (%) (Auto) 18.2 % (20.0-45.0) L Monocytes (%) (Auto) 5.9 % (1.0-10.0) Eosinophils (%) (Auto) 1.5 % (0.0-3.0) Basophils (%) (Auto) 0.9 % (0.0-2.0) Sodium Level 141 MMOL/L (136-145) Potassium Level 4.2 MMOL/L (3.5-5.1) Chloride Level 106 MMOL/L (98-107) Carbon Dioxide Level 24 MMOL/L (21-32) Anion Gap 11 mmol/L (5-15) Blood Urea Nitrogen 46 mg/dL (7-18) H Creatinine 1.3 MG/DL (0.55-1.30) Estimat Glomerular Filtration Rate mL/min (>60) Glucose Level 190 MG/DL (74-106) H Calcium Level 8.8 MG/DL (8.5-10.1) Current Medications Medications (Trade) Dose Ordered Sig/Leonor Route PRN Reason Start Time Stop Time Status Last Admin Dose Admin Acetaminophen (Tylenol) 650 mg Q4H PRN NG Mild Pain/Temp > 100.5 07/05/19 05:48 07/28/19 05:47 Amlodipine Besylate (Norvasc) 10 mg DAILY NG 07/05/19 09:00 07/25/19 13:29 07/07/19 09:59 Aspirin (ASA) 325 mg DAILY NG 07/05/19 09:00 07/20/19 21:44 07/08/19 09:51 Clotrimazole (Lotrimin) 1 applic THREE TIMES A DAY TOPIC 07/05/19 09:00 07/12/19 08:59 07/08/19 13:21 Dextrose (Dextrose 50%) 25 ml Q30M PRN IV Hypoglycemia 07/05/19 06:00 07/18/19 12:29 Dextrose (Dextrose 50%) 50 ml Q30M PRN IV Hypoglycemia 07/05/19 06:00 07/18/19 12:29 Hydralazine HCl (Apresoline) 25 mg Q6HR ORAL 07/05/19 06:00 08/01/19 11:59 07/08/19 13:39 Insulin Aspart (NovoLOG) No Dose Q6HR SUBQ 07/05/19 06:00 08/03/19 17:59 07/08/19 13:11 Lisinopril (ZestriL) 10 mg BID ORAL 07/07/19 18:00 08/06/19 17:59 07/08/19 10:05 Loperamide HCl (Imodium) 2 mg Q6H PRN NG Diarrhea 07/05/19 05:50 07/29/19 05:49 07/05/19 16:28 Magnesium Hydroxide (Mom) 30 ml HSPRN PRN NG Constipation 07/05/19 05:51 07/21/19 05:50 Metoprolol Tartrate (Lopressor) 12.5 mg Q12HR GT 07/05/19 09:00 08/01/19 20:59 07/07/19 10:02 Minoxidil (Loniten) 2.5 mg Q4H PRN ORAL bp over 160 syst 07/05/19 07:45 08/01/19 11:44 07/05/19 16:28 Minoxidil (Loniten) 5 mg TWICE A DAY ORAL 07/07/19 18:00 08/06/19 17:59 07/08/19 09:54 Nitroglycerin (Nitro-Bid) 1 inch Q6HR TOPIC 07/05/19 06:00 07/31/19 20:59 07/08/19 13:39 Olanzapine (ZyPREXA) 5 mg BEDTIME ORAL 07/05/19 21:00 07/24/19 20:59 07/07/19 23:14 Ondansetron HCl (Zofran) 4 mg Q6H PRN IVP Nausea & Vomiting 07/05/19 06:15 07/21/19 18:14 Bob Gilmore MD Jul 08, 2019 13:46
--- NOTE | 2019-07-08 13:50 | NUR ---
NURSE NOTES: Notified Dr. Kaz Gilmore of current vitals, HR 42 BP 136/49 mmHg, okay to give medications (Nitro Bid and Hydralazine), reconciled medications, for parameters, no further orders received. Will continue to monitor.
--- NOTE | 2019-07-08 14:53 | NUR ---
ST NOTES: SWALLOW STATUS: PATIENT IS NOW ON 3 EAST. HE IS ALERT AND KEEP TAKING OFF HIS O2 TUBING. HE DISLIKES ORAL CARE AND TEND TO KEEP HIS MOUTH CLOSED. ST ABLE TO GET OUT MILD AMOUNTS OF YELLOW THICK PHLEGM FROM THE SIDES AND BACK OF HIS THROAT. TOLD RT AND RN YONY HE MAY NEED DEEP NASAL SUCTION. THE PATIENT WOULD NOT FOLLOW ORAL COMMANDS EVEN WITH VISUAL CUES TO PROTRUDE HIS TONGUE AND SMILE. WHEN A SMALL AMOUNT OF NECTAR THICK WATER WAS PLACED ON HIS LOWER LIP, HE DID NOT TRY TO LICK IT OFF. WILL HOLD ON PO TRIALS HE DOES NOT APPEAR TO OPEN HIS MOUTH WITH CUES AND HE IS NEEDS SUCTION FOR HIS ORAL SECRETIONS. GOALS MET FOR STAFF RENTAL SALES REPRESENTATIVE/RN EDUCATED AND TRAINED IN ORAL CARE/SUCTION NEEDS (REPOSTED ORAL CARE AND ASP PREC FOR SECRETIONS SIGN). NOT READY FOR MOD BARIUM SWALLOW STUDY. SPEECH STATUS: CLARIFICATION ORDER FOR SPEECH EVAL PURSUED NOW THAT HE IS MORE AWAKE. HE IS ALERT BUT LOOKS UP AND TO THE LEFT (NOT MIDLINE NOR TO THE RIGHT). HE DOES NOT INITIATE SPEECH NOR SOUNDS. HE DOES NOT FOLLOW ORAL NOR GESTURAL COMMANDS EVEN WITH VISUAL CUES (GIVEN LIMITED VISUAL GAZE). PLAN: CONTINUE WITH NONORAL FEEDINGS AND ORAL CARE/SUCTION F/UP ON THURSDAY FOR PO TRIALS AND MOD BARIUM SWALLOW STUDY READINESS SPEECH EVAL ON THURSDAY IF ORDER SIGNED. D/W STAFF Addendum: 07/08/19 at 1454 by AYANNA TEJEDA WALL INSULATION SPRAYER POSTED COMMUNICATION TIPS TO TALK TO HIM ON HIS LEFT AND STAND OVER HIM AND SHOW HIM WHAT YOU WANT.
--- NOTE | 2019-07-08 16:05 | NUR ---
NURSE NOTES: Patient repositioned throughout shift, GT site covered with towel to prevent patient from touching area. At 1605, Dr. Quinonez notified that patient is attempting to pull on GT and keeps removing O2 nasal cannula. Order received for left wrist restraint. Left hand skin intact, warm, pulse palpable, color normal, moves hand and arm strong, active range of motion. Left wrist restraint applied as ordered, patient calm. Will continue to monitor.
--- NOTE | 2019-07-08 16:23 | Diagnostic Imaging Report ---
Indication: Cough Technique: One view of the chest Comparison: 06/29/2019 Findings: Patchy consolidation previously seen in the right perihilar region and right lung base is no longer evident the previously demonstrated nasogastric tube has been removed. No new infiltrates. The heart size is normal. Calcifications are again demonstrated in the left axilla Impression: Improved right mid and lower lung infiltrates, since prior study 06/29/2019 Interim nasogastric tube removal
--- NOTE | 2019-07-08 17:18 | NUR ---
CASE MANAGEMENT:REVIEW SI;LEFT MCA CVA. ACUTE RENAL FAILURE. RT HEMIPLEGIA. 96.6 40 18 136/49 92% 2L NC WBC 15.5 BUN 46 IS;HYDRALAZINE GT Q6 HRS MINOXIDIL GT Q4 HRS LOPRESSOR GT Q12 HRS ASA GT QD NORVASC GT QD ZESTRIL GT BID MED SURG STATUS
--- NOTE | 2019-07-08 18:30 | NUR ---
NURSE NOTES: Patient repositioned every 2 hours, skin care provided (Lotrimin and Triad cream applied as ordered) to perineal area, skin remains intact, irritated, bilateral heels floating, skin intact. Remains NPO, oral care provided, suctioned with yankeur. Patient has congested cough, lungs sounds congested, discussed with Dr. Kimmy Gilmore (ID), PCXR ordered and done at 1407.
--- NOTE | 2019-07-08 19:36 | NUR ---
HAND-OFF: Report given to Judy BADILLO, rounds made. Patient resting, calm in bed. Left wrist restraint remains in place.
--- NOTE | 2019-07-08 19:36 | NUR ---
NURSE NOTES: Received report from JUSTINO Cedilol. Pt is sleeping, lying high perez's; comfortably resting. No signs of acute distress noted. Pt is calm and comfortable, no pain noted. AOx0; aphasic. Checked IV site, line, and rate; patent and running. No erythema, bleeding, or infiltration noted. Bed at lowest position. Suction at bedside. Brakes on. Siderails up x2. Call light within reach. Will continue to monitor.
--- NOTE | 2019-07-08 19:41 | General Progress Note ---
Assessment/Plan Status: stable, unchanged Assessment/Plan: Assessment - Acute CVA - AMS - Dysphagia - arrhythmia - free water deficit - poor prognosis Recommendations - IVF - Abx - monitor labs - follow BM pattern - GT feeds - vital AF Subjective Allergies: Coded Allergies: UNABLE TO ASSESS (Unverified , 06/18/19) Subjective above noted tolerating TF arousable calm Objective Last 24 Hour Vital Signs Date Time Temp Pulse Resp B/P (MAP) Pulse Ox O2 Delivery O2 Flow Rate FiO2 07/08/19 19:27 93 Nasal Cannula 1.0 24 07/08/19 18:48 141/61 07/08/19 18:48 141/61 07/08/19 18:47 141/61 07/08/19 18:47 141/61 07/08/19 18:40 47 141/61 (87) 07/08/19 13:51 136/49 07/08/19 13:51 136/49 07/08/19 13:15 42 136/49 (78) 07/08/19 12:00 96.6 43 18 124/61 (82) 93 07/08/19 10:05 128/66 07/08/19 09:54 128/66 07/08/19 09:50 40 128/66 (86) 07/08/19 09:00 40 128/66 07/08/19 09:00 40 128/66 07/08/19 09:00 Nasal Cannula 2.0 07/08/19 08:00 97.0 74 20 124/74 (91) 92 07/08/19 05:31 150/56 07/08/19 05:31 150/56 07/08/19 04:00 98.1 43 15 150/56 (87) 95 07/08/19 00:00 97.5 42 16 136/65 (88) 95 07/07/19 23:14 167/73 07/07/19 23:14 167/73 07/07/19 23:10 41 167/73 07/07/19 22:06 97.7 41 15 167/73 (104) 94 07/07/19 20:21 Nasal Cannula 2.0 07/07/19 19:54 92 Nasal Cannula 1.0 24 Intake and Output 07/07/19 07/08/19 19:00 07:00 Intake Total 1070 ml 780 ml Balance 1070 ml 780 ml Free Water 350 ml Tube Feeding 720 ml 780 ml # Voids 4 # Bowel Movements 2 Laboratory Tests 07/08/19 05:35: White Blood Count 15.5H, Red Blood Count 4.81, Hemoglobin 15.2, Hematocrit 41.2L , Mean Corpuscular Volume 86, Mean Corpuscular Hemoglobin 31.6H, Mean Corpuscular Hemoglobin Concent 36.9H, Red Cell Distribution Width 12.1, Platelet Count 402, Mean Platelet Volume 7.1, Neutrophils (%) (Auto) 73.5, Lymphocytes (%) (Auto) 18.2L, Monocytes (%) (Auto) 5.9, Eosinophils (%) (Auto) 1.5, Basophils (%) (Auto) 0.9, Sodium Level 141, Potassium Level 4.2, Chloride Level 106, Carbon Dioxide Level 24, Anion Gap 11, Blood Urea Nitrogen 46H, Creatinine 1.3, Estimat Glomerular Filtration Rate , Glucose Level 190H, Calcium Level 8.8 Height (Feet): 5 Height (Inches): 8.00 Weight (Pounds): 155 Objective Elderly man NCAT supple Coarse BS RR abd soft no edema Barb Lee MD Jul 08, 2019 19:41
[2019-07-09] VITALS: BP 151/57
[2019-07-09] MEDS: NovoLOG Insulin Flexpen SUBQ SCH ×4 (00:56→17:50)
[2019-07-09] MEDS: HydrALAZINE 25mg tab ORAL SCH ×4 (01:05→17:48)
[2019-07-09 04:00] VITALS: BP 131/72
[2019-07-09] MEDS: Nitroglycerin 2% oint pkt TOPIC SCH ×4 (06:00→17:52)
--- NOTE | 2019-07-09 07:20 | General Progress Note ---
Assessment/Plan Status: stable, unchanged Assessment/Plan: Assessment/Plan Status: stable, unchanged Assessment/Plan: Assessment - Acute CVA - AMS - Dysphagia - arrhythmia - free water deficit - poor prognosis Recommendations - IVF - Abx - monitor labs - follow BM pattern - GT feeds - vital AF Subjective ROS Limited/Unobtainable: No Allergies: Coded Allergies: UNABLE TO ASSESS (Unverified , 06/18/19) Objective Last 24 Hour Vital Signs Date Time Temp Pulse Resp B/P (MAP) Pulse Ox O2 Delivery O2 Flow Rate FiO2 07/09/19 06:27 160/46 07/09/19 06:00 131/59 07/09/19 04:00 98.0 49 18 131/72 (91) 92 07/09/19 01:05 163/68 07/09/19 00:00 151/57 07/09/19 00:00 96.0 38 18 151/57 (88) 96 07/08/19 21:00 Nasal Cannula 2.0 07/08/19 21:00 39 114/52 07/08/19 20:00 97.3 39 18 114/64 (81) 95 07/08/19 19:27 93 Nasal Cannula 1.0 24 07/08/19 18:48 141/61 07/08/19 18:48 141/61 07/08/19 18:47 141/61 07/08/19 18:47 141/61 07/08/19 18:40 47 141/61 (87) 07/08/19 16:00 98.1 48 20 148/74 (98) 92 07/08/19 13:51 136/49 07/08/19 13:51 136/49 07/08/19 13:15 42 136/49 (78) 07/08/19 12:00 96.6 43 18 124/61 (82) 93 07/08/19 10:05 128/66 07/08/19 09:54 128/66 07/08/19 09:50 40 128/66 (86) 07/08/19 09:00 40 128/66 07/08/19 09:00 40 128/66 07/08/19 09:00 Nasal Cannula 2.0 07/08/19 08:00 97.0 74 20 124/74 (91) 92 Intake and Output 07/08/19 07/09/19 19:00 07:00 Intake Total 1370 ml Output Total 500 ml Balance 1370 ml -500 ml Free Water 650 ml Tube Feeding 720 ml Output Urine Total 500 ml # Bowel Movements 2 1 Height (Feet): 5 Height (Inches): 8.00 Weight (Pounds): 155 General Appearance: no apparent distress EENT: normal ENT inspection Neck: supple Cardiovascular: normal rate Respiratory/Chest: decreased breath sounds Abdomen: normal bowel sounds, non tender, soft Extremities: non-tender Louie Fan MD Jul 09, 2019 07:20
--- NOTE | 2019-07-09 07:50 | NUR ---
NURSE NOTES: Received pt from JUSTINO Kim, pt was resting, Left side of restrain in place, no acute distress, Tube feeding was running. will monitor closely
[2019-07-09 08:00] VITALS: BP 138/55
--- NOTE | 2019-07-09 08:04 | NUR ---
HAND-OFF: Report given to JUSTINO Montero. Pt is awake and in stable condition. Plan of care endorsed..
[2019-07-09] MEDS: Minoxidil 2.5mg tab ORAL SCH ×2 (09:00→17:51)
[2019-07-09] MEDS: Metoprolol Tartrate 12.5mg TAB GT SCH (09:00)
[2019-07-09] MEDS: Lisinopril 10mg tab ORAL SCH ×2 (09:01→17:51)
[2019-07-09 12:00] VITALS: BP 135/53
--- NOTE | 2019-07-09 14:00 | Cardiology Progress Note ---
Assessment/Plan Assessment/Plan 1. Respiratory insufficiency. 2. Cerebrovascular accident. 3. Premature ventricular complexes. 4. Interstitial infiltrates. 5. Altered mentation. 6. CVA. 7. Hypernatremia. 8. Renal insufficiency. 9. NSVT s/p peg ef 65-70 tele sinus on bp meds bp seem controlled will check lab in labs noted Subjective ROS Limited/Unobtainable: Yes Subjective altered mentation Objective Last 24 Hour Vital Signs Date Time Temp Pulse Resp B/P (MAP) Pulse Ox O2 Delivery O2 Flow Rate FiO2 07/09/19 12:33 135/53 07/09/19 12:23 135/53 07/09/19 12:00 97.0 61 18 135/53 (80) 97 07/09/19 09:01 138/55 07/09/19 09:00 41 07/09/19 08:00 96.0 41 18 138/55 (82) 97 07/09/19 07:58 Nasal Cannula 2.0 07/09/19 06:27 160/46 07/09/19 06:00 131/59 07/09/19 04:00 98.0 49 18 131/72 (91) 92 07/09/19 01:05 163/68 07/09/19 00:00 151/57 07/09/19 00:00 96.0 38 18 151/57 (88) 96 07/08/19 21:00 Nasal Cannula 2.0 07/08/19 21:00 39 114/52 07/08/19 20:00 97.3 39 18 114/64 (81) 95 07/08/19 19:27 93 Nasal Cannula 1.0 24 07/08/19 18:48 141/61 07/08/19 18:48 141/61 07/08/19 18:47 141/61 07/08/19 18:47 141/61 07/08/19 18:40 47 141/61 (87) 07/08/19 16:00 98.1 48 20 148/74 (98) 92 General Appearance: no apparent distress, alert Cardiovascular: normal rate Respiratory/Chest: lungs clear Abdomen: normal bowel sounds, non tender, soft Extremities: no swelling Intake and Output 07/08/19 07/09/19 18:59 06:59 Intake Total 1370 ml 60 ml Output Total 500 ml Balance 1370 ml -440 ml Free Water 650 ml Tube Feeding 720 ml 60 ml Output Urine Total 500 ml # Bowel Movements 2 1 Microbiology Date/Time Source Procedure Growth Status 07/07/19 22:55 Stool Clostridium difficile Toxin Assay - Final Complete Chris Melgar MD Jul 09, 2019 14:00
[2019-07-09 16:00] VITALS: BP 134/49
--- NOTE | 2019-07-09 17:48 | General Progress Note ---
Assessment/Plan Problem List: (1) Cellulitis of right hand ICD Codes: L03.113 - Cellulitis of right upper limb SNOMED: 86078915 (2) Altered level of consciousness ICD Codes: R40.4 - Transient alteration of awareness SNOMED: 3513974 (3) Sepsis ICD Codes: A41.9 - Sepsis, unspecified organism SNOMED: 72793965 Qualifiers: Qualified Codes: A41.9 - Sepsis, unspecified organism (4) Left middle cerebral artery stroke ICD Codes: I63.512 - Cerebral infarction due to unspecified occlusion or stenosis of left middle cerebral artery SNOMED: 831858473 (5) Left carotid artery occlusion ICD Codes: I65.22 - Occlusion and stenosis of left carotid artery SNOMED: 447431893534607 (6) Hypernatremia Assessment & Plan: better ICD Codes: E87.0 - Hyperosmolality and hypernatremia SNOMED: 208817869 (7) Hypokalemia Assessment & Plan: better ICD Codes: E87.6 - Hypokalemia SNOMED: 43357206 (8) DM (diabetes mellitus) ICD Codes: E11.9 - Type 2 diabetes mellitus without complications SNOMED: 02919872 (9) ARF (acute renal failure) Assessment & Plan: ok ICD Codes: N17.9 - Acute kidney failure, unspecified SNOMED: 84623290 (10) Hypertension ICD Codes: I10 - Essential (primary) hypertension SNOMED: 44919828 (11) Aspiration pneumonia ICD Codes: J69.0 - Pneumonitis due to inhalation of food and vomit SNOMED: 393813035 Status: stable, unchanged Assessment/Plan: continue ASA TF SSI DC Beta blockers watch BP follow labs Subjective Allergies: Coded Allergies: UNABLE TO ASSESS (Unverified , 06/18/19) Subjective pt had 3 BMs per RN Objective Last 24 Hour Vital Signs Date Time Temp Pulse Resp B/P (MAP) Pulse Ox O2 Delivery O2 Flow Rate FiO2 07/09/19 16:00 97.9 44 18 134/49 (77) 97 07/09/19 12:33 135/53 07/09/19 12:23 135/53 07/09/19 12:00 97.0 61 18 135/53 (80) 97 07/09/19 09:01 138/55 07/09/19 09:00 41 07/09/19 08:00 96.0 41 18 138/55 (82) 97 07/09/19 07:58 Nasal Cannula 2.0 07/09/19 06:27 160/46 07/09/19 06:00 131/59 07/09/19 04:00 98.0 49 18 131/72 (91) 92 07/09/19 01:05 163/68 07/09/19 00:00 151/57 07/09/19 00:00 96.0 38 18 151/57 (88) 96 07/08/19 21:00 Nasal Cannula 2.0 07/08/19 21:00 39 114/52 07/08/19 20:00 97.3 39 18 114/64 (81) 95 07/08/19 19:27 93 Nasal Cannula 1.0 24 07/08/19 18:48 141/61 07/08/19 18:48 141/61 07/08/19 18:47 141/61 07/08/19 18:47 141/61 07/08/19 18:40 47 141/61 (87) Intake and Output 07/08/19 07/09/19 19:00 07:00 Intake Total 1370 ml Output Total 500 ml Balance 1370 ml -500 ml Free Water 650 ml Tube Feeding 720 ml Output Urine Total 500 ml # Bowel Movements 2 1 Height (Feet): 5 Height (Inches): 8.00 Weight (Pounds): 155 Cardiovascular: normal rate Respiratory/Chest: lungs clear Abdomen: soft Kaz Gilmore MD Jul 09, 2019 17:48
--- NOTE | 2019-07-09 19:35 | NUR ---
HAND-OFF: Report given to JUSTINO Ang. pt is stable condition.
[2019-07-09 20:00] VITALS: BP 148/68
--- NOTE | 2019-07-09 20:12 | NUR ---
NURSE NOTES: Received patient in bed, non verbal, total care, left wrist restraint applied, patient will be monitored for comfort and safety, IV site is clean dry and intact, Gtube feeding is in place, no residual, tolerating it well. Call light is within reach, bed is lowered, locked and alarm is on.
[2019-07-10] VITALS: BP 100/60
[2019-07-10] MEDS: NovoLOG Insulin Flexpen SUBQ SCH ×4 (00:17→17:48)
[2019-07-10 04:00] VITALS: BP 142/59
[2019-07-10] MEDS: HydrALAZINE 25mg tab ORAL SCH ×4 (05:24→17:47)
[2019-07-10 05:45] LABS: EOSINOPHILS % (AUTO) 2.1 % (0.0-3.0); HEMATOCRIT 40.6 % (42.0-52.0); HEMOGLOBIN 14.6 G/DL (14.2-18.0); MEAN CORPUSCULAR VOLUME 89 FL (80-99); MONOCYTES % (AUTO) 6.3 % (1.0-10.0); NEUTROPHILS % (AUTO) 72.6 % (45.0-75.0); PLATELET COUNT 404 K/UL (150-450); RED BLOOD COUNT 4.58 M/UL (4.70-6.10); RED CELL DISTRIBUTION WIDTH 11.4 % (11.6-14.8)
[2019-07-10 05:55] LABS: ANION GAP 9 mmol/L (5-15); BLOOD UREA NITROGEN 51 mg/dL (7-18); CALCIUM 8.9 MG/DL (8.5-10.1); CARBON DIOXIDE 28 MMOL/L (21-32); CHLORIDE 106 MMOL/L (98-107); CREATININE 1.2 MG/DL (0.55-1.30); POTASSIUM 4.4 MMOL/L (3.5-5.1); SODIUM 142 MMOL/L (136-145)
[2019-07-10] MEDS: Nitroglycerin 2% oint pkt TOPIC SCH ×4 (06:05→17:47)
--- NOTE | 2019-07-10 06:54 | General Progress Note ---
Assessment/Plan Status: stable, unchanged Assessment/Plan: Assessment/Plan Status: stable, unchanged Assessment/Plan: Assessment - Acute CVA - AMS - Dysphagia - arrhythmia - free water deficit - poor prognosis Recommendations - IVF - Abx - monitor labs - follow BM pattern - GT feeds - vital AF Subjective Allergies: Coded Allergies: UNABLE TO ASSESS (Unverified , 06/18/19) Objective Last 24 Hour Vital Signs Date Time Temp Pulse Resp B/P (MAP) Pulse Ox O2 Delivery O2 Flow Rate FiO2 07/10/19 06:05 143/74 07/10/19 05:24 143/74 07/10/19 04:00 98.0 43 22 142/59 (86) 98 43 07/10/19 00:00 97.9 66 24 100/60 (73) 98 07/10/19 00:00 100/66 07/10/19 00:00 100/60 07/09/19 21:00 Nasal Cannula 2.0 07/09/19 20:34 95 Nasal Cannula 1.0 24 07/09/19 20:00 97.3 50 24 148/68 (94) 98 50 07/09/19 17:52 134/49 07/09/19 17:48 134/49 07/09/19 16:00 97.9 44 18 134/49 (77) 97 07/09/19 12:33 135/53 07/09/19 12:23 135/53 07/09/19 12:00 97.0 61 18 135/53 (80) 97 07/09/19 09:01 138/55 07/09/19 09:00 41 07/09/19 08:00 96.0 41 18 138/55 (82) 97 07/09/19 07:58 Nasal Cannula 2.0 Intake and Output 07/09/19 07/10/19 19:00 07:00 Intake Total 310 ml 490 ml Output Total 500 ml Balance -190 ml 490 ml Free Water 250 ml 250 ml Tube Feeding 60 ml 240 ml Output Urine Total 500 ml Laboratory Tests 07/10/19 04:45: White Blood Count 14.0H, Red Blood Count 4.58L, Hemoglobin 14.6, Hematocrit 40.6L, Mean Corpuscular Volume 89, Mean Corpuscular Hemoglobin 31.9H, Mean Corpuscular Hemoglobin Concent 36.0, Red Cell Distribution Width 11.4L, Platelet Count 404, Mean Platelet Volume 7.1, Neutrophils (%) (Auto) 72.6, Lymphocytes (%) (Auto) 18.0L, Monocytes (%) (Auto) 6.3, Eosinophils (%) (Auto) 2.1, Basophils (%) (Auto) 1.0, Sodium Level 142, Potassium Level 4.4, Chloride Level 106, Carbon Dioxide Level 28, Anion Gap 9, Blood Urea Nitrogen 51H, Creatinine 1.2, Estimat Glomerular Filtration Rate , Glucose Level 181H, Calcium Level 8.9 Height (Feet): 5 Height (Inches): 8.00 Weight (Pounds): 155 General Appearance: alert EENT: normal ENT inspection Neck: supple Cardiovascular: normal rate Respiratory/Chest: decreased breath sounds Abdomen: normal bowel sounds, non tender, soft Extremities: non-tender Louie Fan MD Jul 10, 2019 06:54
--- NOTE | 2019-07-10 07:45 | NUR ---
NURSE NOTES: Received report from JUSTINO Ang. Pt is non verbal. No respiratory distress noted. Pt on O2 2L/min. Lt FA IV access is patent. Tube feeding is on at this time. Bed in lowest position, call light within reach. Will continue to monitor.
[2019-07-10 08:00] VITALS: BP 162/66
[2019-07-10] MEDS: Lisinopril 10mg tab ORAL SCH ×2 (09:17→17:48)
[2019-07-10] MEDS: Minoxidil 2.5mg tab ORAL SCH ×2 (09:17→17:47)
[2019-07-10 12:00] VITALS: BP 139/64
--- NOTE | 2019-07-10 12:52 | General Progress Note ---
Assessment/Plan Problem List: (1) Cellulitis of right hand ICD Codes: L03.113 - Cellulitis of right upper limb SNOMED: 59386035 (2) Altered level of consciousness ICD Codes: R40.4 - Transient alteration of awareness SNOMED: 4773253 (3) Sepsis ICD Codes: A41.9 - Sepsis, unspecified organism SNOMED: 76710043 Qualifiers: Qualified Codes: A41.9 - Sepsis, unspecified organism (4) Left middle cerebral artery stroke ICD Codes: I63.512 - Cerebral infarction due to unspecified occlusion or stenosis of left middle cerebral artery SNOMED: 453054154 (5) Left carotid artery occlusion ICD Codes: I65.22 - Occlusion and stenosis of left carotid artery SNOMED: 000752650186827 (6) Hypernatremia Assessment & Plan: better ICD Codes: E87.0 - Hyperosmolality and hypernatremia SNOMED: 994680474 (7) Hypokalemia Assessment & Plan: better ICD Codes: E87.6 - Hypokalemia SNOMED: 95945222 (8) DM (diabetes mellitus) ICD Codes: E11.9 - Type 2 diabetes mellitus without complications SNOMED: 97034933 (9) ARF (acute renal failure) Assessment & Plan: ok ICD Codes: N17.9 - Acute kidney failure, unspecified SNOMED: 24460455 (10) Hypertension ICD Codes: I10 - Essential (primary) hypertension SNOMED: 88779616 (11) Aspiration pneumonia ICD Codes: J69.0 - Pneumonitis due to inhalation of food and vomit SNOMED: 680929768 Status: stable, unchanged Assessment/Plan: continue ASA TF SSI watch BP follow labs Subjective Allergies: Coded Allergies: UNABLE TO ASSESS (Unverified , 06/18/19) Subjective In NAD Objective Last 24 Hour Vital Signs Date Time Temp Pulse Resp B/P (MAP) Pulse Ox O2 Delivery O2 Flow Rate FiO2 07/10/19 11:53 139/64 07/10/19 11:53 139/64 07/10/19 09:17 162/66 07/10/19 09:17 162/66 07/10/19 09:17 44 162/66 07/10/19 09:00 Nasal Cannula 2.0 07/10/19 08:00 98.2 44 22 162/66 (98) 97 07/10/19 06:05 143/74 07/10/19 05:24 143/74 07/10/19 04:00 98.0 43 22 142/59 (86) 98 43 07/10/19 00:00 97.9 66 24 100/60 (73) 98 07/10/19 00:00 100/66 07/10/19 00:00 100/60 07/09/19 21:00 Nasal Cannula 2.0 07/09/19 20:34 95 Nasal Cannula 1.0 24 07/09/19 20:00 97.3 50 24 148/68 (94) 98 50 07/09/19 17:52 134/49 07/09/19 17:48 134/49 07/09/19 16:00 97.9 44 18 134/49 (77) 97 Intake and Output 07/09/19 07/10/19 19:00 07:00 Intake Total 310 ml 850 ml Output Total 500 ml Balance -190 ml 850 ml Free Water 250 ml 250 ml Tube Feeding 60 ml 600 ml Output Urine Total 500 ml Laboratory Tests 07/10/19 04:45: White Blood Count 14.0H, Red Blood Count 4.58L, Hemoglobin 14.6, Hematocrit 40.6L, Mean Corpuscular Volume 89, Mean Corpuscular Hemoglobin 31.9H, Mean Corpuscular Hemoglobin Concent 36.0, Red Cell Distribution Width 11.4L, Platelet Count 404, Mean Platelet Volume 7.1, Neutrophils (%) (Auto) 72.6, Lymphocytes (%) (Auto) 18.0L, Monocytes (%) (Auto) 6.3, Eosinophils (%) (Auto) 2.1, Basophils (%) (Auto) 1.0, Sodium Level 142, Potassium Level 4.4, Chloride Level 106, Carbon Dioxide Level 28, Anion Gap 9, Blood Urea Nitrogen 51H, Creatinine 1.2, Estimat Glomerular Filtration Rate , Glucose Level 181H, Calcium Level 8.9 Height (Feet): 5 Height (Inches): 8.00 Weight (Pounds): 155 Cardiovascular: normal rate Respiratory/Chest: lungs clear Abdomen: soft Kaz Gilmore MD Jul 10, 2019 12:51
[2019-07-10] MEDS ORDERED: Sterile Water Irrig 1000ml IRRIG ONE (13:19)
--- NOTE | 2019-07-10 15:09 | Infectious Diseases Prog Note ---
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 Aphasia R hemiplegia Leukocytosis RECOMMENDATION: Observe off antibiotic Subjective ROS Limited/Unobtainable: Yes Constitutional: Denies: fever Allergies: Coded Allergies: UNABLE TO ASSESS (Unverified , 06/18/19) Objective Vital Signs Last 24 Hour Vital Signs Date Time Temp Pulse Resp B/P (MAP) Pulse Ox O2 Delivery O2 Flow Rate FiO2 07/10/19 12:00 98.2 44 22 139/64 (89) 97 07/10/19 11:53 139/64 07/10/19 11:53 139/64 07/10/19 09:17 162/66 07/10/19 09:17 162/66 07/10/19 09:17 44 162/66 07/10/19 09:00 Nasal Cannula 2.0 07/10/19 08:00 98.2 44 22 162/66 (98) 97 07/10/19 06:05 143/74 07/10/19 05:24 143/74 07/10/19 04:00 98.0 43 22 142/59 (86) 98 43 07/10/19 00:00 97.9 66 24 100/60 (73) 98 07/10/19 00:00 100/66 07/10/19 00:00 100/60 07/09/19 21:00 Nasal Cannula 2.0 07/09/19 20:34 95 Nasal Cannula 1.0 24 07/09/19 20:00 97.3 50 24 148/68 (94) 98 50 07/09/19 17:52 134/49 07/09/19 17:48 134/49 07/09/19 16:00 97.9 44 18 134/49 (77) 97 Height (Feet): 5 Height (Inches): 8.00 Weight (Pounds): 155 General Appearance: no acute distress HEENT: mucous membranes moist Respiratory/Chest: lungs clear Cardiovascular: bradycardia Abdomen: soft, non tender, other - GT feeding Neurologic/Psychiatric: aphasia, other - R hemiplegia Microbiology Date/Time Source Procedure Growth Status 07/07/19 22:55 Stool Clostridium difficile Toxin Assay - Final Complete Laboratory Tests Test 07/10/19 04:45 White Blood Count 14.0 K/UL (4.8-10.8) H Red Blood Count 4.58 M/UL (4.70-6.10) L Hemoglobin 14.6 G/DL (14.2-18.0) Hematocrit 40.6 % (42.0-52.0) L Mean Corpuscular Volume 89 FL (80-99) Mean Corpuscular Hemoglobin 31.9 PG (27.0-31.0) H Mean Corpuscular Hemoglobin Concent 36.0 G/DL (32.0-36.0) Red Cell Distribution Width 11.4 % (11.6-14.8) L Platelet Count 404 K/UL (150-450) Mean Platelet Volume 7.1 FL (6.5-10.1) Neutrophils (%) (Auto) 72.6 % (45.0-75.0) Lymphocytes (%) (Auto) 18.0 % (20.0-45.0) L Monocytes (%) (Auto) 6.3 % (1.0-10.0) Eosinophils (%) (Auto) 2.1 % (0.0-3.0) Basophils (%) (Auto) 1.0 % (0.0-2.0) Sodium Level 142 MMOL/L (136-145) Potassium Level 4.4 MMOL/L (3.5-5.1) Chloride Level 106 MMOL/L (98-107) Carbon Dioxide Level 28 MMOL/L (21-32) Anion Gap 9 mmol/L (5-15) Blood Urea Nitrogen 51 mg/dL (7-18) H Creatinine 1.2 MG/DL (0.55-1.30) Estimat Glomerular Filtration Rate mL/min (>60) Glucose Level 181 MG/DL (74-106) H Calcium Level 8.9 MG/DL (8.5-10.1) Current Medications Medications (Trade) Dose Ordered Sig/Leonor Route PRN Reason Start Time Stop Time Status Last Admin Dose Admin Acetaminophen (Tylenol) 650 mg Q4H PRN NG Mild Pain/Temp > 100.5 07/05/19 05:48 07/28/19 05:47 Amlodipine Besylate (Norvasc) 10 mg DAILY NG 07/05/19 09:00 07/25/19 13:29 07/10/19 09:17 Aspirin (ASA) 325 mg DAILY NG 07/05/19 09:00 07/20/19 21:44 07/10/19 09:17 Clotrimazole (Lotrimin) 1 applic THREE TIMES A DAY TOPIC 07/05/19 09:00 07/12/19 08:59 07/10/19 13:36 Dextrose (Dextrose 50%) 25 ml Q30M PRN IV Hypoglycemia 07/05/19 06:00 07/18/19 12:29 Dextrose (Dextrose 50%) 50 ml Q30M PRN IV Hypoglycemia 07/05/19 06:00 07/18/19 12:29 Hydralazine HCl (Apresoline) 25 mg Q6HR ORAL 07/05/19 06:00 08/01/19 11:59 07/10/19 11:53 Insulin Aspart (NovoLOG) No Dose Q6HR SUBQ 07/05/19 06:00 08/03/19 17:59 07/10/19 11:55 Lisinopril (ZestriL) 10 mg BID ORAL 07/07/19 18:00 08/06/19 17:59 07/10/19 09:17 Loperamide HCl (Imodium) 2 mg Q6H PRN NG Diarrhea 07/05/19 05:50 07/29/19 05:49 07/05/19 16:28 Magnesium Hydroxide (Mom) 30 ml HSPRN PRN NG Constipation 07/05/19 05:51 07/21/19 05:50 Minoxidil (Loniten) 2.5 mg Q4H PRN ORAL bp over 160 syst 07/05/19 07:45 08/01/19 11:44 07/05/19 16:28 Minoxidil (Loniten) 5 mg TWICE A DAY ORAL 07/07/19 18:00 08/06/19 17:59 07/10/19 09:17 Nitroglycerin (Nitro-Bid) 1 inch Q6HR TOPIC 07/05/19 06:00 07/31/19 20:59 07/10/19 11:53 Olanzapine (ZyPREXA) 5 mg BEDTIME ORAL 07/05/19 21:00 07/24/19 20:59 07/09/19 21:28 Ondansetron HCl (Zofran) 4 mg Q6H PRN IVP Nausea & Vomiting 07/05/19 06:15 07/21/19 18:14 Bob Gilmore MD Jul 10, 2019 15:09
[2019-07-10 17:00] VITALS: BP 159/78
--- NOTE | 2019-07-10 19:37 | NUR ---
HAND-OFF: Report given to JUSTINO Oliveira. Pt is stable.
--- NOTE | 2019-07-10 19:39 | NUR ---
NURSE NOTES: Received report from JUSTINO Montilla. Patient is non-verbal. No respiratory distress on O2 2L/min at this time. IV on Lt FA is intact and patent. G-tube feeding is on at this time. Restraint on Lt hand and checked circulation. Condom cath off. Cleaned perineal area and put new condom cath. Bed is on alarm, locked and lowest position. Call light within reach. Will continue to monitor.
[2019-07-10 20:00] VITALS: BP 141/60
[2019-07-11] VITALS (7 sets, daily range): BP systolic 120–182; BP diastolic 68–99
[2019-07-11] MEDS: HydrALAZINE 25mg tab ORAL SCH ×4 (00:03→18:26)
[2019-07-11] MEDS: NovoLOG Insulin Flexpen SUBQ SCH ×4 (00:04→18:00)
[2019-07-11] MEDS: Nitroglycerin 2% oint pkt TOPIC SCH ×4 (00:04→18:00)
--- NOTE | 2019-07-11 07:32 | NUR ---
HAND-OFF: Report given to Eladia BADILLO. Patient in stable condition.
--- NOTE | 2019-07-11 07:35 | NUR ---
NURSE NOTES: Received report from UJSTINO Oliveira. Rounding done with outgoing nurse. Pt is nonverbal. No respiratory distress noted. Vital 1.2 is running @60ml/hr via G-tube. Pt has restraints on left arm. Bed in lowest position, will continue to monitor.
[2019-07-11] MEDS: Lisinopril 10mg tab ORAL SCH ×2 (09:05→18:26)
[2019-07-11] MEDS: Minoxidil 2.5mg tab ORAL SCH (09:06)
--- NOTE | 2019-07-11 12:13 | Infectious Diseases Prog Note ---
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 Aphasia R hemiplegia Leukocytosis RECOMMENDATION: Observe off antibiotic Subjective ROS Limited/Unobtainable: Yes Constitutional: Denies: fever Allergies: Coded Allergies: UNABLE TO ASSESS (Unverified , 06/18/19) Objective Vital Signs Last 24 Hour Vital Signs Date Time Temp Pulse Resp B/P (MAP) Pulse Ox O2 Delivery O2 Flow Rate FiO2 07/11/19 09:06 182/73 07/11/19 09:05 182/73 07/11/19 09:05 45 182/73 07/11/19 09:00 Nasal Cannula 2.0 07/11/19 08:00 97.1 45 17 182/73 (109) 97 07/11/19 05:20 153/99 07/11/19 05:20 153/99 07/11/19 04:00 97.9 45 20 153/99 (117) 93 07/11/19 00:04 162/72 07/11/19 00:03 162/72 07/11/19 00:00 97.3 74 20 162/72 (102) 97 07/10/19 21:00 Nasal Cannula 2.0 07/10/19 20:00 97.2 45 19 141/60 (87) 93 07/10/19 17:48 159/78 07/10/19 17:47 159/78 07/10/19 17:47 159/78 07/10/19 17:47 159/78 07/10/19 17:00 98.4 78 22 159/78 (105) 95 Height (Feet): 5 Height (Inches): 8.00 Weight (Pounds): 155 General Appearance: no acute distress HEENT: mucous membranes moist Respiratory/Chest: lungs clear Cardiovascular: bradycardia Abdomen: soft, non tender Extremities: no edema Neurologic/Psychiatric: aphasia, other - R hemiplegia Current Medications Medications (Trade) Dose Ordered Sig/Leonor Route PRN Reason Start Time Stop Time Status Last Admin Dose Admin Acetaminophen (Tylenol) 650 mg Q4H PRN NG Mild Pain/Temp > 100.5 07/05/19 05:48 07/28/19 05:47 Amlodipine Besylate (Norvasc) 10 mg DAILY NG 07/05/19 09:00 07/25/19 13:29 07/11/19 09:05 Aspirin (ASA) 325 mg DAILY NG 07/05/19 09:00 07/20/19 21:44 07/11/19 09:05 Clotrimazole (Lotrimin) 1 applic THREE TIMES A DAY TOPIC 07/05/19 09:00 07/12/19 08:59 07/11/19 09:06 Dextrose (Dextrose 50%) 25 ml Q30M PRN IV Hypoglycemia 07/05/19 06:00 07/18/19 12:29 Dextrose (Dextrose 50%) 50 ml Q30M PRN IV Hypoglycemia 07/05/19 06:00 07/18/19 12:29 Hydralazine HCl (Apresoline) 25 mg Q6HR ORAL 07/05/19 06:00 08/01/19 11:59 07/11/19 05:20 Insulin Aspart (NovoLOG) No Dose Q6HR SUBQ 07/05/19 06:00 08/03/19 17:59 07/11/19 05:19 Lisinopril (ZestriL) 10 mg BID ORAL 07/07/19 18:00 08/06/19 17:59 07/11/19 09:05 Loperamide HCl (Imodium) 2 mg Q6H PRN NG Diarrhea 07/05/19 05:50 07/29/19 05:49 07/05/19 16:28 Magnesium Hydroxide (Mom) 30 ml HSPRN PRN NG Constipation 07/05/19 05:51 07/21/19 05:50 Minoxidil (Loniten) 2.5 mg Q4H PRN ORAL bp over 160 syst 07/05/19 07:45 08/01/19 11:44 07/05/19 16:28 Minoxidil (Loniten) 5 mg TWICE A DAY ORAL 07/07/19 18:00 08/06/19 17:59 07/11/19 09:06 Nitroglycerin (Nitro-Bid) 1 inch Q6HR TOPIC 07/05/19 06:00 07/31/19 20:59 07/11/19 05:20 Olanzapine (ZyPREXA) 5 mg BEDTIME ORAL 07/05/19 21:00 07/24/19 20:59 07/10/19 22:38 Ondansetron HCl (Zofran) 4 mg Q6H PRN IVP Nausea & Vomiting 07/05/19 06:15 07/21/19 18:14 Bob Gilmore MD Jul 11, 2019 12:13
--- NOTE | 2019-07-11 12:25 | General Progress Note ---
Assessment/Plan Problem List: (1) Cellulitis of right hand ICD Codes: L03.113 - Cellulitis of right upper limb SNOMED: 17381145 (2) Altered level of consciousness ICD Codes: R40.4 - Transient alteration of awareness SNOMED: 1348364 (3) Sepsis ICD Codes: A41.9 - Sepsis, unspecified organism SNOMED: 57129785 Qualifiers: Qualified Codes: A41.9 - Sepsis, unspecified organism (4) Left middle cerebral artery stroke ICD Codes: I63.512 - Cerebral infarction due to unspecified occlusion or stenosis of left middle cerebral artery SNOMED: 450691664 (5) Left carotid artery occlusion ICD Codes: I65.22 - Occlusion and stenosis of left carotid artery SNOMED: 758173537380604 (6) Hypernatremia Assessment & Plan: better ICD Codes: E87.0 - Hyperosmolality and hypernatremia SNOMED: 064226419 (7) Hypokalemia Assessment & Plan: better ICD Codes: E87.6 - Hypokalemia SNOMED: 83988989 (8) DM (diabetes mellitus) ICD Codes: E11.9 - Type 2 diabetes mellitus without complications SNOMED: 43881389 (9) ARF (acute renal failure) Assessment & Plan: ok ICD Codes: N17.9 - Acute kidney failure, unspecified SNOMED: 45397621 (10) Hypertension ICD Codes: I10 - Essential (primary) hypertension SNOMED: 51250720 (11) Aspiration pneumonia ICD Codes: J69.0 - Pneumonitis due to inhalation of food and vomit SNOMED: 531310730 Status: stable, unchanged Assessment/Plan: continue ASA TF SSI Increase Minoxidil follow labs Subjective Allergies: Coded Allergies: UNABLE TO ASSESS (Unverified , 06/18/19) Subjective In NAD Objective Last 24 Hour Vital Signs Date Time Temp Pulse Resp B/P (MAP) Pulse Ox O2 Delivery O2 Flow Rate FiO2 07/11/19 09:06 182/73 07/11/19 09:05 182/73 07/11/19 09:05 45 182/73 07/11/19 09:00 Nasal Cannula 2.0 07/11/19 08:00 97.1 45 17 182/73 (109) 97 07/11/19 05:20 153/99 07/11/19 05:20 153/99 07/11/19 04:00 97.9 45 20 153/99 (117) 93 07/11/19 00:04 162/72 07/11/19 00:03 162/72 07/11/19 00:00 97.3 74 20 162/72 (102) 97 07/10/19 21:00 Nasal Cannula 2.0 07/10/19 20:00 97.2 45 19 141/60 (87) 93 07/10/19 17:48 159/78 07/10/19 17:47 159/78 07/10/19 17:47 159/78 07/10/19 17:47 159/78 07/10/19 17:00 98.4 78 22 159/78 (105) 95 Intake and Output 07/10/19 07/11/19 19:00 07:00 Intake Total 660 ml Output Total 350 ml 500 ml Balance 310 ml -500 ml Tube Feeding 660 ml Output Urine Total 350 ml 500 ml # Voids 3 # Bowel Movements 1 Height (Feet): 5 Height (Inches): 8.00 Weight (Pounds): 155 Cardiovascular: normal rate Respiratory/Chest: lungs clear Kaz Gilmore MD Jul 11, 2019 12:25
--- NOTE | 2019-07-11 12:34 | Pulmonology Progress Note ---
Assessment/Plan Assessment/Plan Problem List: * Respiratory distress/insufficiency * Bibasilar pulmonary infiltrates - likely aspiration pneumonia * Altered mental status * Acute CVA * DM Plan: * Monitor respiratory status, stable * Monitor off abx * PEG placement done * Duonebs * d/c planning Subjective ROS Limited/Unobtainable: Yes Interval Events: Breathing stable Allergies: Coded Allergies: UNABLE TO ASSESS (Unverified , 06/18/19) All Systems: reviewed and negative except above Objective Last 24 Hour Vital Signs Date Time Temp Pulse Resp B/P (MAP) Pulse Ox O2 Delivery O2 Flow Rate FiO2 07/11/19 09:06 182/73 07/11/19 09:05 182/73 07/11/19 09:05 45 182/73 07/11/19 09:00 Nasal Cannula 2.0 07/11/19 08:00 97.1 45 17 182/73 (109) 97 07/11/19 05:20 153/99 07/11/19 05:20 153/99 07/11/19 04:00 97.9 45 20 153/99 (117) 93 07/11/19 00:04 162/72 07/11/19 00:03 162/72 07/11/19 00:00 97.3 74 20 162/72 (102) 97 07/10/19 21:00 Nasal Cannula 2.0 07/10/19 20:00 97.2 45 19 141/60 (87) 93 07/10/19 17:48 159/78 07/10/19 17:47 159/78 07/10/19 17:47 159/78 07/10/19 17:47 159/78 07/10/19 17:00 98.4 78 22 159/78 (105) 95 Intake and Output 07/10/19 07/11/19 19:00 07:00 Intake Total 660 ml Output Total 350 ml 500 ml Balance 310 ml -500 ml Tube Feeding 660 ml Output Urine Total 350 ml 500 ml # Voids 3 # Bowel Movements 1 General Appearance: no acute distress HEENT: mucous membranes moist Respiratory/Chest: lungs clear Cardiovascular: normal rate Abdomen: soft, non tender Extremities: no edema Current Medications Medications (Trade) Dose Ordered Sig/Leonor Route PRN Reason Start Time Stop Time Status Last Admin Dose Admin Acetaminophen (Tylenol) 650 mg Q4H PRN NG Mild Pain/Temp > 100.5 1/21/20 05:48 07/28/19 05:47 Amlodipine Besylate (Norvasc) 10 mg DAILY NG 07/05/19 09:00 07/25/19 13:29 07/11/19 09:05 Aspirin (ASA) 325 mg DAILY NG 07/05/19 09:00 07/20/19 21:44 07/11/19 09:05 Clotrimazole (Lotrimin) 1 applic THREE TIMES A DAY TOPIC 07/05/19 09:00 07/12/19 08:59 07/11/19 09:06 Dextrose (Dextrose 50%) 25 ml Q30M PRN IV Hypoglycemia 07/05/19 06:00 07/18/19 12:29 Dextrose (Dextrose 50%) 50 ml Q30M PRN IV Hypoglycemia 07/05/19 06:00 07/18/19 12:29 Hydralazine HCl (Apresoline) 25 mg Q6HR ORAL 07/05/19 06:00 08/01/19 11:59 07/11/19 05:20 Insulin Aspart (NovoLOG) No Dose Q6HR SUBQ 07/05/19 06:00 08/03/19 17:59 07/11/19 05:19 Lisinopril (ZestriL) 10 mg BID ORAL 07/07/19 18:00 08/06/19 17:59 07/11/19 09:05 Loperamide HCl (Imodium) 2 mg Q6H PRN NG Diarrhea 07/05/19 05:50 07/29/19 05:49 07/05/19 16:28 Magnesium Hydroxide (Mom) 30 ml HSPRN PRN NG Constipation 07/05/19 05:51 07/21/19 05:50 Minoxidil (Loniten) 2.5 mg Q4H PRN ORAL bp over 160 syst 07/05/19 07:45 08/01/19 11:44 07/05/19 16:28 Minoxidil (Loniten) 10 mg TWICE A DAY ORAL 07/11/19 18:00 08/06/19 17:59 UNV Nitroglycerin (Nitro-Bid) 1 inch Q6HR TOPIC 07/05/19 06:00 07/31/19 20:59 07/11/19 05:20 Olanzapine (ZyPREXA) 5 mg BEDTIME ORAL 07/05/19 21:00 07/24/19 20:59 07/10/19 22:38 Ondansetron HCl (Zofran) 4 mg Q6H PRN IVP Nausea & Vomiting 07/05/19 06:15 07/21/19 18:14 Deni Borges MD Jul 11, 2019 12:34
--- NOTE | 2019-07-11 15:26 | NUR ---
WEEKLY SWALLOW/SPEECH THERAPY SUMMARY: THE PATIENT IS SEEN FOR DYSPHAGIA AND REDUCED COMMUNICATION SKILLS. SWALLOW STATUS UNCHANGED. 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 MAY HAVE SIGNIFICANT ORAL APRAXIA. WHEN NECTAR THICK WATER PLACED ON HIS LOWER LIP, HE DID NOT LICK IT OFF. HE IS NOT READY FOR A MODIFIED BARIUM SWALLOW STUDY. GOALS MET FOR STAFF (JUSTINO RODRÍGUEZ AND BRANDY MENDIOLA) EDUCATED/TRAINED IN POSTED ORAL CARE AND ASPIRATION PRECAUTION WHEN PEG FEEDINGS RUNNING. SPEECH STATUS: HE IS ALERT BUT HE IS ONLY ABLE TO LOOK AT THE SPEAKER WHEN THE SPEAKER IS ON HIS LEFT AND ABOVE HIM. HE STILL CANNOT FOLLOWING ORAL COMMANDS WITH AND W/OUT VISUAL CUES. DID NOT IMITATE VOWELS NOR MAKE SPONTANEOUS SOUNDS. HE IS NOT APPROPRIATE FOR A PICTURE BOARD HE CANNOT EVEN POINT TO OBJECTS CHOICE OF 2. GOALS MET FOR STAFF UNDERSTANDS COMMUNICATION TIPS ON SIGN. PLAN: CONTINUE WITH PLAN OF CARE IN SWALLOW EVAL REPORT. MOD BARIUM SWALLOW STUDY WHEN READY CONTINUE WITH ORAL CARE AND NONORAL PEG FEEDINGS.
--- NOTE | 2019-07-11 16:02 | NUR ---
CASE MANAGEMENT:REVIEW 07/09/19 SI:LEFT MCA CVA. ACUTE RENAL FAILURE. RT HEMIPLEGIA. 97.0 61 18 135/53 97% 2L NC IS:HYDRALAZINE GT Q6 HRS MINOXIDIL GT Q4 HRS LOPRESSOR GT Q12 HRS ASA GT QD NORVASC GT QD ZESTRIL GT BID \:3E MED SURG UNIT CASE MANAGEMENT:REVIEW 07/10/19 SI:LEFT MCA CVA. ACUTE RENAL FAILURE. RT HEMIPLEGIA. 98.2 44 22 162/66 97% 2L NC BUN 51 BG 181 WBC 14.0 IS:HYDRALAZINE GT Q6 HRS MINOXIDIL GT Q4 HRS LOPRESSOR GT Q12 HRS ASA GT QD NORVASC GT QD ZESTRIL GT BID \:3E MED SURG UNIT PLAN: MONITOR OFF RESTRAINTS PLACEMENT ESTABLISH INSURANCE CASE MANAGEMENT:REVIEW 07/11/19 SI:LEFT MCA CVA. ACUTE RENAL FAILURE. RT HEMIPLEGIA. 97.1 45 17 182/73 97% 2L NC IS:HYDRALAZINE GT Q6 HRS MINOXIDIL GT Q4 HRS LOPRESSOR GT Q12 HRS ASA GT QD NORVASC GT QD ZESTRIL GT BID \:3E MED SURG UNIT PLAN: MONITOR OFF RESTRAINTS PLACEMENT ESTABLISH INSURANCE PED PLACEMENT DONE
[2019-07-11] MEDS: Minoxidil 2.5mg tab ORAL PRN (16:19)
[2019-07-11] MEDS: Minoxidil 10mg tab ORAL SCH (18:00)
--- NOTE | 2019-07-11 19:38 | NUR ---
HAND-OFF: Report given to JUSTINO Oliveira.
--- NOTE | 2019-07-11 19:40 | NUR ---
NURSE NOTES: Received report from JUSTINO Montilla. Patient is non-verbal. No respiratory distress on O2 2L/min at this time. IV on Lt FA is intact and patent. G-tube feeding is running at 60ml/hr. Restraint on Lt hand and checked circulation. Condom cath off. Cleaned perineal area and put new condom cath. Bed is on alarm, locked and lowest position. Call light within reach. Will continue to monitor.
--- NOTE | 2019-07-11 22:11 | General Progress Note ---
Assessment/Plan Status: stable, unchanged Assessment/Plan: Assessment - Acute CVA - AMS - Dysphagia - arrhythmia - free water deficit - poor prognosis Recommendations - IVF - Abx - monitor labs - follow BM pattern - GT feeds - vital AF Subjective Allergies: Coded Allergies: UNABLE TO ASSESS (Unverified , 06/18/19) Subjective above noted tolerating TF arousable calm non-interactive Objective Last 24 Hour Vital Signs Date Time Temp Pulse Resp B/P (MAP) Pulse Ox O2 Delivery O2 Flow Rate FiO2 07/11/19 18:26 120/70 07/11/19 18:26 120/70 07/11/19 18:23 42 120/70 (87) 07/11/19 18:00 120/70 07/11/19 18:00 120/70 07/11/19 16:19 172/68 07/11/19 16:00 97.1 41 17 172/68 (102) 97 07/11/19 12:43 143/85 07/11/19 12:43 143/85 07/11/19 12:00 97.6 45 20 143/85 (104) 95 07/11/19 09:06 182/73 07/11/19 09:05 182/73 07/11/19 09:05 45 182/73 07/11/19 09:00 Nasal Cannula 2.0 07/11/19 08:00 97.1 45 17 182/73 (109) 97 07/11/19 05:20 153/99 07/11/19 05:20 153/99 07/11/19 04:00 97.9 45 20 153/99 (117) 93 07/11/19 00:04 162/72 07/11/19 00:03 162/72 07/11/19 00:00 97.3 74 20 162/72 (102) 97 Intake and Output 07/10/19 07/11/19 19:00 07:00 Intake Total 660 ml 60 ml Output Total 350 ml 500 ml Balance 310 ml -440 ml Tube Feeding 660 ml 60 ml Output Urine Total 350 ml 500 ml # Voids 3 # Bowel Movements 1 Height (Feet): 5 Height (Inches): 8.00 Weight (Pounds): 155 Objective Elderly man NCAT supple Coarse BS RR abd soft no edema Barb Lee MD Jul 11, 2019 22:11
[2019-07-12] VITALS (7 sets, daily range): BP systolic 106–149; BP diastolic 39–74
[2019-07-12] MEDS: NovoLOG Insulin Flexpen SUBQ SCH ×4 (00:06→18:13)
[2019-07-12] MEDS: HydrALAZINE 25mg tab ORAL SCH ×4 (00:07→17:48)
[2019-07-12] MEDS: Nitroglycerin 2% oint pkt TOPIC SCH ×4 (00:07→18:12)
--- NOTE | 2019-07-12 04:45 | Progress Note ---
DATE: 07/11/2019 SUBJECTIVE: The patient is manageable, compliant with medications. No behavioral issues noted. Nonverbal. He is on G-tube. No agitation at this time. ASSESSMENT: Dementia. PLAN: We will continue to follow and readjust the medications. Jessica Quinonez M.D. DR: DENA JOB#: [id number] CC: MELINDA
[2019-07-12 06:39] LABS: BASOPHILS % (AUTO) 0.9 % (0.0-2.0); HEMATOCRIT 40.7 % (42.0-52.0); HEMOGLOBIN 14.5 G/DL (14.2-18.0); LYMPHOCYTES % (AUTO) 19.9 % (20.0-45.0); MEAN CORPUSCULAR VOLUME 90 FL (80-99); MONOCYTES % (AUTO) 5.8 % (1.0-10.0); NEUTROPHILS % (AUTO) 71.5 % (45.0-75.0); PLATELET COUNT 392 K/UL (150-450); RED BLOOD COUNT 4.54 M/UL (4.70-6.10); RED CELL DISTRIBUTION WIDTH 11.8 % (11.6-14.8); WHITE BLOOD COUNT 12.6 K/UL (4.8-10.8)
--- NOTE | 2019-07-12 07:07 | NUR ---
HAND-OFF: Report given to Jose BADILLO. Patient in stable condition.
--- NOTE | 2019-07-12 07:27 | NUR ---
NURSE NOTES: Received pt in bed, awake but non-verbal. On NC 2L/min. IV on LFA 22g noted, with SL. G-tube feeding noted @ 60 ml/hr. L wrist restraint noted, and pulse present. Bed in the lowest, locked, and alarm on. Call light within reach. Will continue to monitor
[2019-07-12] MEDS: Lisinopril 10mg tab ORAL SCH ×2 (08:28→17:50)
[2019-07-12] MEDS: Minoxidil 10mg tab ORAL SCH ×2 (08:29→17:50)
--- NOTE | 2019-07-12 10:52 | Pulmonology Progress Note ---
Assessment/Plan Assessment/Plan Problem List: * Respiratory distress/insufficiency - improved * Bibasilar pulmonary infiltrates - likely aspiration pneumonia - resolved * Altered mental status * Acute CVA * DM Plan: * Monitor respiratory status, stable * Monitor off abx * PEG placement done * Duonebs * d/c planning Subjective ROS Limited/Unobtainable: Yes Interval Events: Breathign stable. No fevers. No cough Allergies: Coded Allergies: UNABLE TO ASSESS (Unverified , 06/18/19) Objective Last 24 Hour Vital Signs Date Time Temp Pulse Resp B/P (MAP) Pulse Ox O2 Delivery O2 Flow Rate FiO2 07/12/19 09:00 Nasal Cannula 2.0 07/12/19 08:29 145/73 07/12/19 08:28 145/73 07/12/19 08:28 46 145/73 07/12/19 08:08 96 Nasal Cannula 1.0 24 07/12/19 08:00 97.6 46 18 145/73 (97) 95 07/12/19 05:11 138/59 07/12/19 05:11 138/59 07/12/19 04:00 97.6 48 20 138/59 (85) 95 07/12/19 00:07 149/74 07/12/19 00:07 149/74 07/12/19 00:00 97.8 79 19 149/74 (99) 96 07/11/19 21:00 Nasal Cannula 2.0 07/11/19 20:55 95 Nasal Cannula 1.0 24 07/11/19 20:00 97.6 84 18 127/79 (95) 96 07/11/19 18:26 120/70 07/11/19 18:26 120/70 07/11/19 18:23 42 120/70 (87) 07/11/19 18:00 120/70 07/11/19 18:00 120/70 07/11/19 16:19 172/68 07/11/19 16:00 97.1 41 17 172/68 (102) 97 07/11/19 12:43 143/85 07/11/19 12:43 143/85 07/11/19 12:00 97.6 45 20 143/85 (104) 95 Intake and Output 07/11/19 07/12/19 19:00 07:00 Intake Total 720 ml 810 ml Output Total 1050 ml Balance 720 ml -240 ml Free Water 240 ml 750 ml Tube Feeding 480 ml 60 ml Output Urine Total 1050 ml # Voids 1 General Appearance: no acute distress Respiratory/Chest: lungs clear Cardiovascular: normal rate Abdomen: soft, non tender Skin: no rash Laboratory Tests 07/12/19 05:20: White Blood Count 12.6H, Red Blood Count 4.54L, Hemoglobin 14.5, Hematocrit 40.7L, Mean Corpuscular Volume 90, Mean Corpuscular Hemoglobin 31.8H, Mean Corpuscular Hemoglobin Concent 35.5, Red Cell Distribution Width 11.8, Platelet Count 392, Mean Platelet Volume 6.8, Neutrophils (%) (Auto) 71.5, Lymphocytes (% ) (Auto) 19.9L, Monocytes (%) (Auto) 5.8, Eosinophils (%) (Auto) 2.0, Basophils (%) (Auto) 0.9 Current Medications Medications (Trade) Dose Ordered Sig/Leonor Route PRN Reason Start Time Stop Time Status Last Admin Dose Admin Acetaminophen (Tylenol) 650 mg Q4H PRN NG Mild Pain/Temp > 100.5 07/05/19 05:48 07/28/19 05:47 Amlodipine Besylate (Norvasc) 10 mg DAILY NG 07/05/19 09:00 07/25/19 13:29 07/12/19 08:28 Aspirin (ASA) 325 mg DAILY NG 07/05/19 09:00 07/20/19 21:44 07/12/19 08:28 Dextrose (Dextrose 50%) 25 ml Q30M PRN IV Hypoglycemia 07/05/19 06:00 07/18/19 12:29 Dextrose (Dextrose 50%) 50 ml Q30M PRN IV Hypoglycemia 07/05/19 06:00 07/18/19 12:29 Hydralazine HCl (Apresoline) 25 mg Q6HR ORAL 07/05/19 06:00 08/01/19 11:59 07/12/19 05:11 Insulin Aspart (NovoLOG) No Dose Q6HR SUBQ 07/05/19 06:00 08/03/19 17:59 07/12/19 05:12 Lisinopril (ZestriL) 10 mg BID ORAL 07/07/19 18:00 08/06/19 17:59 07/12/19 08:28 Loperamide HCl (Imodium) 2 mg Q6H PRN NG Diarrhea 07/05/19 05:50 07/29/19 05:49 07/05/19 16:28 Magnesium Hydroxide (Mom) 30 ml HSPRN PRN NG Constipation 07/05/19 05:51 07/21/19 05:50 Minoxidil (Loniten) 2.5 mg Q4H PRN ORAL bp over 160 syst 07/05/19 07:45 08/01/19 11:44 07/11/19 16:19 Minoxidil (Loniten) 10 mg TWICE A DAY ORAL 07/11/19 18:00 08/06/19 17:59 07/12/19 08:29 Nitroglycerin (Nitro-Bid) 1 inch Q6HR TOPIC 07/05/19 06:00 07/31/19 20:59 07/12/19 05:11 Olanzapine (ZyPREXA) 5 mg BEDTIME ORAL 07/05/19 21:00 07/24/19 20:59 07/11/19 21:11 Ondansetron HCl (Zofran) 4 mg Q6H PRN IVP Nausea & Vomiting 07/05/19 06:15 07/21/19 18:14 Deni Borges MD Jul 12, 2019 10:52
--- NOTE | 2019-07-12 12:59 | Infectious Diseases Prog Note ---
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 Aphasia R hemiplegia Leukocytosis improving RECOMMENDATION: Observe off antibiotic Subjective ROS Limited/Unobtainable: Yes Constitutional: Denies: fever Allergies: Coded Allergies: UNABLE TO ASSESS (Unverified , 06/18/19) Objective Vital Signs Last 24 Hour Vital Signs Date Time Temp Pulse Resp B/P (MAP) Pulse Ox O2 Delivery O2 Flow Rate FiO2 07/12/19 12:00 97.2 43 18 129/51 (77) 97 07/12/19 11:30 106/39 (61) 07/12/19 11:11 102/39 07/12/19 09:00 Nasal Cannula 2.0 07/12/19 08:29 145/73 07/12/19 08:28 145/73 07/12/19 08:28 46 145/73 07/12/19 08:08 96 Nasal Cannula 1.0 24 07/12/19 08:00 97.6 46 18 145/73 (97) 95 07/12/19 05:11 138/59 07/12/19 05:11 138/59 07/12/19 04:00 97.6 48 20 138/59 (85) 95 07/12/19 00:07 149/74 07/12/19 00:07 149/74 07/12/19 00:00 97.8 79 19 149/74 (99) 96 07/11/19 21:00 Nasal Cannula 2.0 07/11/19 20:55 95 Nasal Cannula 1.0 24 07/11/19 20:00 97.6 84 18 127/79 (95) 96 07/11/19 18:26 120/70 07/11/19 18:26 120/70 07/11/19 18:23 42 120/70 (87) 07/11/19 18:00 120/70 07/11/19 18:00 120/70 07/11/19 16:19 172/68 07/11/19 16:00 97.1 41 17 172/68 (102) 97 Height (Feet): 5 Height (Inches): 8.00 Weight (Pounds): 155 General Appearance: no acute distress HEENT: mucous membranes moist Respiratory/Chest: lungs clear Cardiovascular: bradycardia Abdomen: soft, non tender, other - GT feeding Extremities: no edema Skin: no rash Neurologic/Psychiatric: other - sleeping Laboratory Tests Test 07/12/19 05:20 White Blood Count 12.6 K/UL (4.8-10.8) H Red Blood Count 4.54 M/UL (4.70-6.10) L Hemoglobin 14.5 G/DL (14.2-18.0) Hematocrit 40.7 % (42.0-52.0) L Mean Corpuscular Volume 90 FL (80-99) Mean Corpuscular Hemoglobin 31.8 PG (27.0-31.0) H Mean Corpuscular Hemoglobin Concent 35.5 G/DL (32.0-36.0) Red Cell Distribution Width 11.8 % (11.6-14.8) Platelet Count 392 K/UL (150-450) Mean Platelet Volume 6.8 FL (6.5-10.1) Neutrophils (%) (Auto) 71.5 % (45.0-75.0) Lymphocytes (%) (Auto) 19.9 % (20.0-45.0) L Monocytes (%) (Auto) 5.8 % (1.0-10.0) Eosinophils (%) (Auto) 2.0 % (0.0-3.0) Basophils (%) (Auto) 0.9 % (0.0-2.0) Current Medications Medications (Trade) Dose Ordered Sig/Leonor Route PRN Reason Start Time Stop Time Status Last Admin Dose Admin Acetaminophen (Tylenol) 650 mg Q4H PRN NG Mild Pain/Temp > 100.5 07/05/19 05:48 07/28/19 05:47 Amlodipine Besylate (Norvasc) 10 mg DAILY NG 07/05/19 09:00 07/25/19 13:29 07/12/19 08:28 Aspirin (ASA) 325 mg DAILY NG 07/05/19 09:00 07/20/19 21:44 07/12/19 08:28 Dextrose (Dextrose 50%) 25 ml Q30M PRN IV Hypoglycemia 07/05/19 06:00 07/18/19 12:29 Dextrose (Dextrose 50%) 50 ml Q30M PRN IV Hypoglycemia 07/05/19 06:00 07/18/19 12:29 Hydralazine HCl (Apresoline) 25 mg Q6HR ORAL 07/05/19 06:00 08/01/19 11:59 07/12/19 05:11 Insulin Aspart (NovoLOG) No Dose Q6HR SUBQ 07/05/19 06:00 08/03/19 17:59 07/12/19 12:42 Lisinopril (ZestriL) 10 mg BID ORAL 07/07/19 18:00 08/06/19 17:59 07/12/19 08:28 Loperamide HCl (Imodium) 2 mg Q6H PRN NG Diarrhea 07/05/19 05:50 07/29/19 05:49 07/05/19 16:28 Magnesium Hydroxide (Mom) 30 ml HSPRN PRN NG Constipation 07/05/19 05:51 07/21/19 05:50 Minoxidil (Loniten) 2.5 mg Q4H PRN ORAL bp over 160 syst 07/05/19 07:45 08/01/19 11:44 07/11/19 16:19 Minoxidil (Loniten) 10 mg TWICE A DAY ORAL 07/11/19 18:00 08/06/19 17:59 07/12/19 08:29 Nitroglycerin (Nitro-Bid) 1 inch Q6HR TOPIC 07/05/19 06:00 07/31/19 20:59 07/12/19 05:11 Olanzapine (ZyPREXA) 5 mg BEDTIME ORAL 07/05/19 21:00 07/24/19 20:59 07/11/19 21:11 Ondansetron HCl (Zofran) 4 mg Q6H PRN IVP Nausea & Vomiting 07/05/19 06:15 07/21/19 18:14 Bob Gilmore MD Jul 12, 2019 12:59
--- NOTE | 2019-07-12 13:10 | NUR ---
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 * Altered nutrition related lab values r/t sepsis, DM, volume deficit as evidenced by elev WBC (12.6), elev POC glu (135-201) w/ A1C 6.9, elev Na (153-> wnl), elev BUN (51 trend up), elev creat (1.5-> wnl) CURRENT TF:Vital 1.2 @60ml x24 hrs ENTERAL NUTRITION RECOMMENDATIONS: VITAL 1.2 @ 65ml/hr x 24 hrs to provide 1560ml, 1872kcal, 117g prot, 1265ml free water - rec goal as above as tolerated to meet 100% est kcal/prot needs - HOB over 30 degrees - H20 flush of 150ml q 4 hrs ADDITIONAL RECOMMENDATIONS: 1) CALIBRATED bedscale wt: fluctuating wts 2) Monitor for readiness fo oral grat, MBSS- monitor [employer] rec 3) Monitor BGs closely-consider long acting insulin for improved BG control 4) BUN trend up : increase water flushes, see above rec 5) Monitor lytes, replete as needed 6) Probiotics w/ continued diarrhea. .
--- NOTE | 2019-07-12 16:39 | NUR ---
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 97.2 HR 81 RR 20 B/P 129/51 2L NC O2 SAT @ 98% WBC 12.6 BUN 51 IS: ASA PO NORVASC GT MED/SURG STATUS
--- NOTE | 2019-07-12 19:44 | NUR ---
HAND-OFF: Report given to JUSTINO Mariano.
--- NOTE | 2019-07-12 19:45 | NUR ---
NURSE NOTES: Receive a report from JUSTINO Boyd. Round is done.
--- NOTE | 2019-07-12 19:45 | NUR ---
NURSE NOTES: Pt is asleep but aroused by calling and shaking him. Non-verbal but is able to do eye contact and follow by voice. No acute distress noted. Bed bound with right side weakness. Repositioning q 2hrs. G-tube inserted and running feeding. No discharge noted. Kept head up elevated. Left hand is on restraint to prevent from taking out. Bed is locked and lowest. Will continue to monitor.
--- NOTE | 2019-07-12 20:00 | NUR ---
NURSE NOTES: Restraint has been renewed. Checking circulation q 2hrs. No skin issue noted. Motor intact. Will continue to monitor.
--- NOTE | 2019-07-12 21:31 | General Progress Note ---
Assessment/Plan Status: stable, unchanged Assessment/Plan: Assessment - Acute CVA - AMS - Dysphagia - arrhythmia - free water deficit - poor prognosis Recommendations - IVF - Abx - monitor labs - follow BM pattern - GT feeds - vital AF - rate per RD rec Subjective Allergies: Coded Allergies: UNABLE TO ASSESS (Unverified , 06/18/19) Subjective above noted tolerating TF arousable calm non-interactive Objective Last 24 Hour Vital Signs Date Time Temp Pulse Resp B/P (MAP) Pulse Ox O2 Delivery O2 Flow Rate FiO2 07/12/19 18:12 119/58 07/12/19 17:50 119/58 07/12/19 17:50 119/58 07/12/19 17:48 119/58 07/12/19 16:00 97.2 81 20 119/58 (78) 95 07/12/19 13:58 129/51 07/12/19 12:00 97.2 43 18 129/51 (77) 97 07/12/19 11:30 106/39 (61) 07/12/19 11:11 102/39 07/12/19 09:00 Nasal Cannula 2.0 07/12/19 08:29 145/73 07/12/19 08:28 145/73 07/12/19 08:28 46 145/73 07/12/19 08:08 96 Nasal Cannula 1.0 24 07/12/19 08:00 97.6 46 18 145/73 (97) 95 07/12/19 05:11 138/59 07/12/19 05:11 138/59 07/12/19 04:00 97.6 48 20 138/59 (85) 95 07/12/19 00:07 149/74 07/12/19 00:07 149/74 07/12/19 00:00 97.8 79 19 149/74 (99) 96 Intake and Output 07/11/19 07/12/19 19:00 07:00 Intake Total 720 ml 810 ml Output Total 1050 ml Balance 720 ml -240 ml Free Water 240 ml 750 ml Tube Feeding 480 ml 60 ml Output Urine Total 1050 ml # Voids 1 Laboratory Tests 07/12/19 05:20: White Blood Count 12.6H, Red Blood Count 4.54L, Hemoglobin 14.5, Hematocrit 40.7L, Mean Corpuscular Volume 90, Mean Corpuscular Hemoglobin 31.8H, Mean Corpuscular Hemoglobin Concent 35.5, Red Cell Distribution Width 11.8, Platelet Count 392, Mean Platelet Volume 6.8, Neutrophils (%) (Auto) 71.5, Lymphocytes (% ) (Auto) 19.9L, Monocytes (%) (Auto) 5.8, Eosinophils (%) (Auto) 2.0, Basophils (%) (Auto) 0.9 Height (Feet): 5 Height (Inches): 8.00 Weight (Pounds): 155 Objective Elderly man NCAT supple Coarse BS RR abd soft no edema Barb Lee MD Jul 12, 2019 21:31
--- NOTE | 2019-07-12 22:15 | General Progress Note ---
Assessment/Plan Problem List: (1) Cellulitis of right hand ICD Codes: L03.113 - Cellulitis of right upper limb SNOMED: 73770919 (2) Altered level of consciousness ICD Codes: R40.4 - Transient alteration of awareness SNOMED: 1284490 (3) Sepsis ICD Codes: A41.9 - Sepsis, unspecified organism SNOMED: 37840606 Qualifiers: Qualified Codes: A41.9 - Sepsis, unspecified organism (4) Left middle cerebral artery stroke ICD Codes: I63.512 - Cerebral infarction due to unspecified occlusion or stenosis of left middle cerebral artery SNOMED: 608378339 (5) Left carotid artery occlusion ICD Codes: I65.22 - Occlusion and stenosis of left carotid artery SNOMED: 478999623449290 (6) Hypernatremia Assessment & Plan: better ICD Codes: E87.0 - Hyperosmolality and hypernatremia SNOMED: 752357791 (7) Hypokalemia Assessment & Plan: better ICD Codes: E87.6 - Hypokalemia SNOMED: 97575992 (8) DM (diabetes mellitus) ICD Codes: E11.9 - Type 2 diabetes mellitus without complications SNOMED: 70883781 (9) ARF (acute renal failure) Assessment & Plan: ok ICD Codes: N17.9 - Acute kidney failure, unspecified SNOMED: 32209300 (10) Hypertension ICD Codes: I10 - Essential (primary) hypertension SNOMED: 07249742 (11) Aspiration pneumonia ICD Codes: J69.0 - Pneumonitis due to inhalation of food and vomit SNOMED: 810460530 Status: stable, unchanged Assessment/Plan: continue ASA TF SSI watch BP follow labs Subjective Allergies: Coded Allergies: UNABLE TO ASSESS (Unverified , 06/18/19) Subjective In NAD Objective Last 24 Hour Vital Signs Date Time Temp Pulse Resp B/P (MAP) Pulse Ox O2 Delivery O2 Flow Rate FiO2 07/12/19 18:12 119/58 07/12/19 17:50 119/58 07/12/19 17:50 119/58 07/12/19 17:48 119/58 07/12/19 16:00 97.2 81 20 119/58 (78) 95 07/12/19 13:58 129/51 07/12/19 12:00 97.2 43 18 129/51 (77) 97 07/12/19 11:30 106/39 (61) 07/12/19 11:11 102/39 07/12/19 09:00 Nasal Cannula 2.0 07/12/19 08:29 145/73 07/12/19 08:28 145/73 07/12/19 08:28 46 145/73 07/12/19 08:08 96 Nasal Cannula 1.0 24 07/12/19 08:00 97.6 46 18 145/73 (97) 95 07/12/19 05:11 138/59 07/12/19 05:11 138/59 07/12/19 04:00 97.6 48 20 138/59 (85) 95 07/12/19 00:07 149/74 07/12/19 00:07 149/74 07/12/19 00:00 97.8 79 19 149/74 (99) 96 Intake and Output 07/11/19 07/12/19 19:00 07:00 Intake Total 720 ml 810 ml Output Total 1050 ml Balance 720 ml -240 ml Free Water 240 ml 750 ml Tube Feeding 480 ml 60 ml Output Urine Total 1050 ml # Voids 1 Laboratory Tests 07/12/19 05:20: White Blood Count 12.6H, Red Blood Count 4.54L, Hemoglobin 14.5, Hematocrit 40.7L, Mean Corpuscular Volume 90, Mean Corpuscular Hemoglobin 31.8H, Mean Corpuscular Hemoglobin Concent 35.5, Red Cell Distribution Width 11.8, Platelet Count 392, Mean Platelet Volume 6.8, Neutrophils (%) (Auto) 71.5, Lymphocytes (% ) (Auto) 19.9L, Monocytes (%) (Auto) 5.8, Eosinophils (%) (Auto) 2.0, Basophils (%) (Auto) 0.9 Height (Feet): 5 Height (Inches): 8.00 Weight (Pounds): 155 Cardiovascular: normal rate Respiratory/Chest: lungs clear Kaz Gimlore MD Jul 12, 2019 22:15
[2019-07-13] VITALS (8 sets, daily range): BP systolic 115–165; BP diastolic 48–102
[2019-07-13] MEDS: NovoLOG Insulin Flexpen SUBQ SCH ×4 (00:17→17:45)
[2019-07-13] MEDS: HydrALAZINE 25mg tab ORAL SCH ×4 (00:28→17:43)
[2019-07-13] MEDS: Nitroglycerin 2% oint pkt TOPIC SCH ×4 (00:29→17:53)
[2019-07-13] MEDS: Minoxidil 2.5mg tab ORAL PRN (05:49)
--- NOTE | 2019-07-13 07:10 | NUR ---
HAND-OFF: Report given to JUSTINO Boyd. Round is done.
--- NOTE | 2019-07-13 07:27 | NUR ---
NURSE NOTES: Received pt in bed, sleeping. On NC 2L/min. No s/s of distress/pain. IV on L hand 22g noted. G-tube feeding @ 65 ml/hr. Side rails x3. Bed in the lowest, locked, and alarm on. Call light within reach. Will continue to monitor
[2019-07-13] MEDS: Minoxidil 10mg tab ORAL SCH ×2 (09:00→17:41)
[2019-07-13] MEDS: Lisinopril 10mg tab ORAL SCH ×2 (09:24→17:43)
--- NOTE | 2019-07-13 10:30 | NUR ---
PT EVALUATION/DISCHARGE NOTE Patient seen for initial evaluation. Patient is dependent with bed mobility. Patient requires dependent assist of 2 for sitting. Patient does not follow commands and does not actively participate in bed mobility activities. Skilled inpatient PT intervention is not warranted as patient is unable to actively participate with PT and does not follow commands. Patient discharged from PT, Gaurang BADILLO notified. Addendum: 07/13/19 at 1256 by PERFECTO LORD PT Amended: Links added.
--- NOTE | 2019-07-13 12:12 | General Progress Note ---
Assessment/Plan Problem List: (1) Cellulitis of right hand ICD Codes: L03.113 - Cellulitis of right upper limb SNOMED: 59535321 (2) Altered level of consciousness ICD Codes: R40.4 - Transient alteration of awareness SNOMED: 1223903 (3) Sepsis ICD Codes: A41.9 - Sepsis, unspecified organism SNOMED: 19740256 Qualifiers: Qualified Codes: A41.9 - Sepsis, unspecified organism (4) Left middle cerebral artery stroke ICD Codes: I63.512 - Cerebral infarction due to unspecified occlusion or stenosis of left middle cerebral artery SNOMED: 921123944 (5) Left carotid artery occlusion ICD Codes: I65.22 - Occlusion and stenosis of left carotid artery SNOMED: 631587025330554 (6) Hypernatremia Assessment & Plan: better ICD Codes: E87.0 - Hyperosmolality and hypernatremia SNOMED: 203384206 (7) Hypokalemia Assessment & Plan: better ICD Codes: E87.6 - Hypokalemia SNOMED: 46126691 (8) DM (diabetes mellitus) ICD Codes: E11.9 - Type 2 diabetes mellitus without complications SNOMED: 52687462 (9) ARF (acute renal failure) Assessment & Plan: ok ICD Codes: N17.9 - Acute kidney failure, unspecified SNOMED: 54835631 (10) Hypertension ICD Codes: I10 - Essential (primary) hypertension SNOMED: 87279990 (11) Aspiration pneumonia ICD Codes: J69.0 - Pneumonitis due to inhalation of food and vomit SNOMED: 739754912 Status: stable, unchanged Assessment/Plan: continue ASA TF SSI watch BP Subjective Allergies: Coded Allergies: UNABLE TO ASSESS (Unverified , 06/18/19) Subjective In NAD Objective Last 24 Hour Vital Signs Date Time Temp Pulse Resp B/P (MAP) Pulse Ox O2 Delivery O2 Flow Rate FiO2 07/13/19 09:24 129/64 07/13/19 09:00 129/64 07/13/19 09:00 73 129/64 07/13/19 08:52 Nasal Cannula 2.0 07/13/19 08:00 98.5 73 17 129/64 (85) 96 07/13/19 06:38 43 133/48 (76) 07/13/19 06:00 44 165/56 (92) 07/13/19 05:49 165/56 07/13/19 05:49 165/56 07/13/19 05:48 165/56 07/13/19 04:00 98.4 49 20 136/57 (83) 97 07/13/19 00:29 141/53 07/13/19 00:28 141/53 07/13/19 00:00 97.8 63 20 141/53 (82) 99 07/12/19 21:00 Nasal Cannula 2.0 07/12/19 20:00 98.8 50 20 138/50 (79) 92 07/12/19 18:12 119/58 07/12/19 17:50 119/58 07/12/19 17:50 119/58 07/12/19 17:48 119/58 07/12/19 16:00 97.2 81 20 119/58 (78) 95 07/12/19 13:58 129/51 Intake and Output 07/12/19 07/13/19 19:00 07:00 Intake Total 660 ml 60 ml Output Total 600 ml 750 ml Balance 60 ml -690 ml Tube Feeding 660 ml 60 ml Output Urine Total 600 ml 750 ml # Voids 2 Height (Feet): 5 Height (Inches): 8.00 Weight (Pounds): 146 Cardiovascular: normal rate Respiratory/Chest: lungs clear Edema: no edema noted Generalized Kaz Gilmore MD Jul 13, 2019 12:12
--- NOTE | 2019-07-13 13:03 | NUR ---
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 ENCEPHALOMALACIA . DM . ARF . CELLULITIS OF LEFT HAND . 98.5 73 17 129/64 96% ON 2L NC IS: ZYPREXA PO QHS LONITEN Q4HR/PRN LISINOPRIL PO BID NOVOLOG SQ Q6HR ASA NG QD \:MED/SURG STATUS PLAN: CONT TF PT EVAL COMPLETE- PATIENT IS UNABLE TO FOLLOW COMMANDS CONT WOUND CARE TO [facility] - [facility]
--- NOTE | 2019-07-13 15:35 | Infectious Diseases Prog Note ---
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 Aphasia R hemiplegia Leukocytosis improving RECOMMENDATION: Observe off antibiotic Subjective ROS Limited/Unobtainable: Yes Constitutional: Denies: fever Allergies: Coded Allergies: UNABLE TO ASSESS (Unverified , 06/18/19) Objective Vital Signs Last 24 Hour Vital Signs Date Time Temp Pulse Resp B/P (MAP) Pulse Ox O2 Delivery O2 Flow Rate FiO2 07/13/19 12:00 97.4 76 18 115/67 (83) 93 07/13/19 09:24 129/64 07/13/19 09:00 129/64 07/13/19 09:00 73 129/64 07/13/19 08:52 Nasal Cannula 2.0 07/13/19 08:00 98.5 73 17 129/64 (85) 96 07/13/19 06:38 43 133/48 (76) 07/13/19 06:00 44 165/56 (92) 07/13/19 05:49 165/56 07/13/19 05:49 165/56 07/13/19 05:48 165/56 07/13/19 04:00 98.4 49 20 136/57 (83) 97 07/13/19 00:29 141/53 07/13/19 00:28 141/53 07/13/19 00:00 97.8 63 20 141/53 (82) 99 07/12/19 21:00 Nasal Cannula 2.0 07/12/19 20:00 98.8 50 20 138/50 (79) 92 07/12/19 18:12 119/58 07/12/19 17:50 119/58 07/12/19 17:50 119/58 07/12/19 17:48 119/58 07/12/19 16:00 97.2 81 20 119/58 (78) 95 Height (Feet): 5 Height (Inches): 8.00 Weight (Pounds): 146 General Appearance: no acute distress HEENT: mucous membranes moist Respiratory/Chest: lungs clear Cardiovascular: normal rate Abdomen: soft, non tender, other - GT feeding Neurologic/Psychiatric: aphasia, other - R hemiplegia Current Medications Medications (Trade) Dose Ordered Sig/Leonor Route PRN Reason Start Time Stop Time Status Last Admin Dose Admin Acetaminophen (Tylenol) 650 mg Q4H PRN NG Mild Pain/Temp > 100.5 07/05/19 05:48 07/28/19 05:47 Amlodipine Besylate (Norvasc) 10 mg DAILY NG 07/05/19 09:00 07/25/19 13:29 07/12/19 08:28 Aspirin (ASA) 325 mg DAILY NG 07/05/19 09:00 07/20/19 21:44 07/13/19 09:24 Dextrose (Dextrose 50%) 25 ml Q30M PRN IV Hypoglycemia 07/05/19 06:00 07/18/19 12:29 Dextrose (Dextrose 50%) 50 ml Q30M PRN IV Hypoglycemia 07/05/19 06:00 07/18/19 12:29 Hydralazine HCl (Apresoline) 25 mg Q6HR ORAL 07/05/19 06:00 08/01/19 11:59 07/13/19 05:48 Insulin Aspart (NovoLOG) No Dose Q6HR SUBQ 07/05/19 06:00 08/03/19 17:59 07/13/19 12:58 Lisinopril (ZestriL) 10 mg BID ORAL 07/07/19 18:00 08/06/19 17:59 07/13/19 09:24 Loperamide HCl (Imodium) 2 mg Q6H PRN NG Diarrhea 07/05/19 05:50 07/29/19 05:49 07/05/19 16:28 Magnesium Hydroxide (Mom) 30 ml HSPRN PRN NG Constipation 07/05/19 05:51 07/21/19 05:50 Minoxidil (Loniten) 2.5 mg Q4H PRN ORAL bp over 160 syst 07/05/19 07:45 08/01/19 11:44 07/13/19 05:49 Minoxidil (Loniten) 10 mg TWICE A DAY ORAL 07/11/19 18:00 08/06/19 17:59 07/12/19 08:29 Nitroglycerin (Nitro-Bid) 1 inch Q6HR TOPIC 07/05/19 06:00 07/31/19 20:59 07/13/19 05:49 Olanzapine (ZyPREXA) 5 mg BEDTIME ORAL 07/05/19 21:00 07/24/19 20:59 07/12/19 20:57 Ondansetron HCl (Zofran) 4 mg Q6H PRN IVP Nausea & Vomiting 07/05/19 06:15 07/21/19 18:14 Bob Gilmore MD Jul 13, 2019 15:35
--- NOTE | 2019-07-13 19:30 | NUR ---
NURSE NOTES: Receive a report from JUSTINO Boyd. Round is done.
--- NOTE | 2019-07-13 19:31 | General Progress Note ---
Assessment/Plan Status: stable, unchanged Assessment/Plan: Assessment - Acute CVA - AMS - Dysphagia - arrhythmia - free water deficit - poor prognosis Recommendations - IVF - Abx - monitor labs - follow BM pattern - GT feeds - vital AF - rate per RD rec Subjective Allergies: Coded Allergies: UNABLE TO ASSESS (Unverified , 06/18/19) Subjective above noted tolerating TF arousable calm non-interactive Objective Last 24 Hour Vital Signs Date Time Temp Pulse Resp B/P (MAP) Pulse Ox O2 Delivery O2 Flow Rate FiO2 07/13/19 17:53 130/102 07/13/19 17:43 130/102 07/13/19 17:43 130/102 07/13/19 16:00 98.5 74 18 130/102 (111) 94 07/13/19 12:00 97.4 76 18 115/67 (83) 93 07/13/19 09:24 129/64 07/13/19 09:00 129/64 07/13/19 09:00 73 129/64 07/13/19 08:52 Nasal Cannula 2.0 07/13/19 08:00 98.5 73 17 129/64 (85) 96 07/13/19 06:38 43 133/48 (76) 07/13/19 06:00 44 165/56 (92) 07/13/19 05:49 165/56 07/13/19 05:49 165/56 07/13/19 05:48 165/56 07/13/19 04:00 98.4 49 20 136/57 (83) 97 07/13/19 00:29 141/53 07/13/19 00:28 141/53 07/13/19 00:00 97.8 63 20 141/53 (82) 99 07/12/19 21:00 Nasal Cannula 2.0 07/12/19 20:00 98.8 50 20 138/50 (79) 92 Intake and Output 07/12/19 07/13/19 19:00 07:00 Intake Total 660 ml 60 ml Output Total 600 ml 750 ml Balance 60 ml -690 ml Tube Feeding 660 ml 60 ml Output Urine Total 600 ml 750 ml # Voids 2 Height (Feet): 5 Height (Inches): 8.00 Weight (Pounds): 146 Objective Elderly man NCAT supple Coarse BS RR abd soft no edema Barb Lee MD Jul 13, 2019 19:31
--- NOTE | 2019-07-13 19:40 | NUR ---
HAND-OFF: Report given to JUSTINO Mariano.
--- NOTE | 2019-07-13 20:00 | NUR ---
NURSE NOTES: Pt is non-verbal but follows by voice. No acute distress noted. Breathing is even and non labored but noted intermittent self coughing. On O2 2L NC. RT came and done oronasal suction. On G-tube feeing and no aspiration noted. Noted residual 10ml. Flushing with water q6hr as ordered. Kept head-up to prevent from aspiration. On restraint on left hand for safety. Skin and circulation intact. Yellowish urine patent with condom catheter. On position change q 2hr. Keep dry and clean. Will continue to monitor.
[2019-07-14] VITALS: BP 178/64
--- NOTE | 2019-07-14 | NUR ---
NURSE NOTES: Pt is awake and alert. Pain level increased since last pain medication. BP: 165/108mmHg without GONSALVES. It's been less than 4hrs after taking Clonidine 0.1mg 1 t po. Given prn pain medication and will follow up BP and pain. Will continue to monitor. Addendum: 07/14/19 at 0125 by García Carbajal RN INCORRECT CHARTING
[2019-07-14] MEDS: HydrALAZINE 25mg tab ORAL SCH ×4 (00:14→18:00)
[2019-07-14] MEDS: Minoxidil 2.5mg tab ORAL PRN (00:14)
[2019-07-14] MEDS: Nitroglycerin 2% oint pkt TOPIC SCH ×4 (00:15→18:00)
[2019-07-14] MEDS: NovoLOG Insulin Flexpen SUBQ SCH ×4 (00:16→18:00)
--- NOTE | 2019-07-14 00:45 | NUR ---
NURSE NOTES: After pain medication, Morphine, pain level did not decrease much but BP checked as 155/103mmHg. No gas pass yet. Will continue to monitor. Addendum: 07/14/19 at 0126 by García Carbajal RN INCORRECT CHARTING
[2019-07-14 04:00] VITALS: BP 156/52
[2019-07-14 06:29] LABS: BASOPHILS % (AUTO) 0.8 % (0.0-2.0); EOSINOPHILS % (AUTO) 2.9 % (0.0-3.0); HEMATOCRIT 37.6 % (42.0-52.0); HEMOGLOBIN 13.4 G/DL (14.2-18.0); LYMPHOCYTES % (AUTO) 24.5 % (20.0-45.0); MEAN CORPUSCULAR VOLUME 90 FL (80-99); MONOCYTES % (AUTO) 4.5 % (1.0-10.0); NEUTROPHILS % (AUTO) 67.2 % (45.0-75.0); PLATELET COUNT 345 K/UL (150-450); RED BLOOD COUNT 4.18 M/UL (4.70-6.10); RED CELL DISTRIBUTION WIDTH 11.5 % (11.6-14.8); WHITE BLOOD COUNT 11.7 K/UL (4.8-10.8)
[2019-07-14] MEDS ORDERED: NS Irrig 1000ml ONE (06:39)
--- NOTE | 2019-07-14 07:00 | NUR ---
NURSE NOTES: No acute distress noted. No respiratory distress noted. Non-verbal state but intact eye contact by sound. Will continue to monitor.
--- NOTE | 2019-07-14 07:45 | NUR ---
HAND-OFF: Report given to JUSTINO Mcqueen. Round is done.
--- NOTE | 2019-07-14 07:46 | NUR ---
NURSE NOTES: Received patient in bed awake. O2 via nasal cannula in place, no SOB or acute distress. Left wrist soft restraint on, pulse palpable, skin warm to touch, no skin issues noted on restraint site. IV line intact and patent. Condom catheter intact, draining yellow colored urine. HOB elevated. Bed locked in lowest position. Call light within reach. Will continue plan of care.
[2019-07-14 08:00] VITALS: BP 125/48
[2019-07-14] MEDS: Minoxidil 10mg tab ORAL SCH ×2 (09:00→18:00)
[2019-07-14] MEDS: Lisinopril 10mg tab ORAL SCH ×2 (09:00→18:00)
--- NOTE | 2019-07-14 10:05 | Infectious Diseases Prog Note ---
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 Aphasia R hemiplegia Leukocytosis improving RECOMMENDATION: Observe off antibiotic Subjective ROS Limited/Unobtainable: Yes Constitutional: Denies: fever Neurologic: Reports: confusion, other - on restraint Allergies: Coded Allergies: UNABLE TO ASSESS (Unverified , 06/18/19) Objective Vital Signs Last 24 Hour Vital Signs Date Time Temp Pulse Resp B/P (MAP) Pulse Ox O2 Delivery O2 Flow Rate FiO2 07/14/19 09:00 118/46 07/14/19 09:00 118/46 07/14/19 09:00 44 118/46 07/14/19 08:00 97.5 44 18 125/48 (73) 92 07/14/19 05:46 158/63 07/14/19 05:45 158/63 07/14/19 04:00 97.5 46 20 156/52 (86) 96 07/14/19 00:15 178/64 07/14/19 00:14 178/64 07/14/19 00:14 178/64 07/14/19 00:00 98.7 53 20 178/64 (102) 96 07/13/19 21:00 Nasal Cannula 2.0 07/13/19 20:00 97.5 67 20 127/66 (86) 97 07/13/19 19:59 94 Nasal Cannula 3.0 32 07/13/19 17:53 130/102 07/13/19 17:43 130/102 07/13/19 17:43 130/102 07/13/19 16:00 98.5 74 18 130/102 (111) 94 07/13/19 12:00 97.4 76 18 115/67 (83) 93 Height (Feet): 5 Height (Inches): 8.00 Weight (Pounds): 146 General Appearance: no acute distress HEENT: other - dry mouth Respiratory/Chest: lungs clear Cardiovascular: bradycardia Abdomen: soft, non tender, other - GT feeding Extremities: no edema Neurologic/Psychiatric: disoriented, aphasia, other - R hemiplegia Laboratory Tests Test 07/14/19 05:05 White Blood Count 11.7 K/UL (4.8-10.8) H Red Blood Count 4.18 M/UL (4.70-6.10) L Hemoglobin 13.4 G/DL (14.2-18.0) L Hematocrit 37.6 % (42.0-52.0) L Mean Corpuscular Volume 90 FL (80-99) Mean Corpuscular Hemoglobin 32.0 PG (27.0-31.0) H Mean Corpuscular Hemoglobin Concent 35.5 G/DL (32.0-36.0) Red Cell Distribution Width 11.5 % (11.6-14.8) L Platelet Count 345 K/UL (150-450) Mean Platelet Volume 6.6 FL (6.5-10.1) Neutrophils (%) (Auto) 67.2 % (45.0-75.0) Lymphocytes (%) (Auto) 24.5 % (20.0-45.0) Monocytes (%) (Auto) 4.5 % (1.0-10.0) Eosinophils (%) (Auto) 2.9 % (0.0-3.0) Basophils (%) (Auto) 0.8 % (0.0-2.0) Current Medications Medications (Trade) Dose Ordered Sig/Leonor Route PRN Reason Start Time Stop Time Status Last Admin Dose Admin Acetaminophen (Tylenol) 650 mg Q4H PRN NG Mild Pain/Temp > 100.5 07/05/19 05:48 07/28/19 05:47 Amlodipine Besylate (Norvasc) 10 mg DAILY NG 07/05/19 09:00 07/25/19 13:29 07/12/19 08:28 Aspirin (ASA) 325 mg DAILY NG 07/05/19 09:00 07/20/19 21:44 07/14/19 09:25 Dextrose (Dextrose 50%) 25 ml Q30M PRN IV Hypoglycemia 07/05/19 06:00 07/18/19 12:29 Dextrose (Dextrose 50%) 50 ml Q30M PRN IV Hypoglycemia 07/05/19 06:00 07/18/19 12:29 Hydralazine HCl (Apresoline) 25 mg Q6HR ORAL 07/05/19 06:00 08/01/19 11:59 07/14/19 05:45 Insulin Aspart (NovoLOG) No Dose Q6HR SUBQ 07/05/19 06:00 08/03/19 17:59 07/14/19 05:47 Lisinopril (ZestriL) 10 mg BID ORAL 07/07/19 18:00 08/06/19 17:59 07/13/19 17:43 Loperamide HCl (Imodium) 2 mg Q6H PRN NG Diarrhea 07/05/19 05:50 07/29/19 05:49 07/05/19 16:28 Magnesium Hydroxide (Mom) 30 ml HSPRN PRN NG Constipation 07/05/19 05:51 07/21/19 05:50 Minoxidil (Loniten) 2.5 mg Q4H PRN ORAL bp over 160 syst 07/05/19 07:45 08/01/19 11:44 07/14/19 00:14 Minoxidil (Loniten) 10 mg TWICE A DAY ORAL 07/11/19 18:00 08/06/19 17:59 07/12/19 08:29 Nitroglycerin (Nitro-Bid) 1 inch Q6HR TOPIC 07/05/19 06:00 07/31/19 20:59 07/14/19 05:46 Olanzapine (ZyPREXA) 5 mg BEDTIME ORAL 07/05/19 21:00 07/24/19 20:59 07/13/19 20:30 Ondansetron HCl (Zofran) 4 mg Q6H PRN IVP Nausea & Vomiting 07/05/19 06:15 07/21/19 18:14 Bob Gilmore MD Jul 14, 2019 10:05
[2019-07-14 12:00] VITALS: BP 119/55
--- NOTE | 2019-07-14 13:11 | NUR ---
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 ENCEPHALOMALACIA . DM . ARF . CELLULITIS OF LEFT HAND . 97.5 44 18 125/48 92% ON 2L NC IS: ZYPREXA PO QHS LONITEN Q4HR/PRN LISINOPRIL PO BID NOVOLOG SQ Q6HR ASA NG QD NITRO-BID TP Q6HR \:MED/SURG STATUS PLAN: OBSERVE OFF ABX CONT TF PT EVAL COMPLETE- PATIENT IS UNABLE TO FOLLOW COMMANDS CONT WOUND CARE TO [facility] - [facility]
--- NOTE | 2019-07-14 14:23 | General Progress Note ---
Assessment/Plan Problem List: (1) Cellulitis of right hand ICD Codes: L03.113 - Cellulitis of right upper limb SNOMED: 03031354 (2) Altered level of consciousness ICD Codes: R40.4 - Transient alteration of awareness SNOMED: 4114000 (3) Sepsis ICD Codes: A41.9 - Sepsis, unspecified organism SNOMED: 48192096 Qualifiers: Qualified Codes: A41.9 - Sepsis, unspecified organism (4) Left middle cerebral artery stroke ICD Codes: I63.512 - Cerebral infarction due to unspecified occlusion or stenosis of left middle cerebral artery SNOMED: 447637368 (5) Left carotid artery occlusion ICD Codes: I65.22 - Occlusion and stenosis of left carotid artery SNOMED: 684197539938737 (6) Hypernatremia Assessment & Plan: better ICD Codes: E87.0 - Hyperosmolality and hypernatremia SNOMED: 569766361 (7) Hypokalemia Assessment & Plan: better ICD Codes: E87.6 - Hypokalemia SNOMED: 35950690 (8) DM (diabetes mellitus) ICD Codes: E11.9 - Type 2 diabetes mellitus without complications SNOMED: 07422426 (9) ARF (acute renal failure) Assessment & Plan: ok ICD Codes: N17.9 - Acute kidney failure, unspecified SNOMED: 55198495 (10) Hypertension ICD Codes: I10 - Essential (primary) hypertension SNOMED: 92186704 (11) Aspiration pneumonia ICD Codes: J69.0 - Pneumonitis due to inhalation of food and vomit SNOMED: 793723757 Status: stable, unchanged Assessment/Plan: continue ASA TF SSI watch BP Subjective Allergies: Coded Allergies: UNABLE TO ASSESS (Unverified , 06/18/19) Subjective In NAD Objective Last 24 Hour Vital Signs Date Time Temp Pulse Resp B/P (MAP) Pulse Ox O2 Delivery O2 Flow Rate FiO2 07/14/19 12:00 97.0 47 20 119/55 (76) 93 07/14/19 09:00 Nasal Cannula 2.0 07/14/19 09:00 118/46 07/14/19 09:00 118/46 07/14/19 09:00 44 118/46 07/14/19 08:00 97.5 44 18 125/48 (73) 92 07/14/19 07:42 93 Nasal Cannula 3.0 32 07/14/19 05:46 158/63 07/14/19 05:45 158/63 07/14/19 04:00 97.5 46 20 156/52 (86) 96 07/14/19 00:15 178/64 07/14/19 00:14 178/64 07/14/19 00:14 178/64 07/14/19 00:00 98.7 53 20 178/64 (102) 96 07/13/19 21:00 Nasal Cannula 2.0 07/13/19 20:00 97.5 67 20 127/66 (86) 97 07/13/19 19:59 94 Nasal Cannula 3.0 32 07/13/19 17:53 130/102 07/13/19 17:43 130/102 07/13/19 17:43 130/102 07/13/19 16:00 98.5 74 18 130/102 (111) 94 Intake and Output 07/13/19 07/14/19 19:00 07:00 Intake Total 65 ml Output Total 1175 ml Balance -1110 ml Tube Feeding 65 ml Output Urine Total 1175 ml Laboratory Tests 07/14/19 05:05: White Blood Count 11.7H, Red Blood Count 4.18L, Hemoglobin 13.4L, Hematocrit 37.6L, Mean Corpuscular Volume 90, Mean Corpuscular Hemoglobin 32.0H, Mean Corpuscular Hemoglobin Concent 35.5, Red Cell Distribution Width 11.5L, Platelet Count 345, Mean Platelet Volume 6.6, Neutrophils (%) (Auto) 67.2, Lymphocytes (%) (Auto) 24.5, Monocytes (%) (Auto) 4.5, Eosinophils (%) (Auto) 2.9, Basophils (%) (Auto) 0.8 Height (Feet): 5 Height (Inches): 8.00 Weight (Pounds): 146 Cardiovascular: normal rate Respiratory/Chest: lungs clear Edema: no edema noted Generalized Kaz Gilmore MD Jul 14, 2019 14:23
--- NOTE | 2019-07-14 14:46 | NUR ---
SWALLOW/COMMUNICATION STATUS: D/C SUMMARY: PATIENT DID NOT MEET P.O. INTAKE GOALS, NURSING STAFF MET ORAL CARE CARE GOALS. PATIENT CLEARED FOR ST INTERVENTION BY RN ALISON. PATIENT S/P PEG PLACEMENT. ORAL CARE PROVIDED BY STAFF. PATIENT PRESENTS WITH ABSENCE OF COMMUNICATIVE INTENT. ALL NEEDS/WANTS MUST BE ANTICIPATED BY STAFF. PER MOST CURRENT CXR, PULMONARY INFILTRATES RESOLVING. VISUAL TRACKING IN L/VISUAL FIELD ONLY. RN TO CONTINUE NPO WITH ORAL CARE PROVIDED D/C FROM SKILLED ST SERVICE.
[2019-07-14 16:00] VITALS: BP 122/62
--- NOTE | 2019-07-14 19:40 | NUR ---
NURSE NOTES: Received report from Charisse RN and rounds made with outgoing nurse. Received pt lying in bed, awake, confused, non-verbal, starring, respiration even and unlabored, no distress noted. G-tube feeding Vital AF 1.2 infusing @ 65cc/hr. Pt tolerating without any problem. IV left hand patent and intact. Left arm on soft wrist restraint due to pt pulling on lines. Bed in lowest position and locked, side rails up x 2, call light within reach. Will continue to monitor.
[2019-07-14 20:00] VITALS: BP 144/71
--- NOTE | 2019-07-14 21:18 | General Progress Note ---
Assessment/Plan Status: stable, unchanged Assessment/Plan: Assessment - Acute CVA - AMS - Dysphagia - arrhythmia - free water deficit - poor prognosis Recommendations - IVF - Abx - monitor labs - follow BM pattern - GT feeds - vital AF - rate per RD rec Subjective Allergies: Coded Allergies: UNABLE TO ASSESS (Unverified , 06/18/19) Subjective above noted tolerating TF arousable calm non-interactive Objective Last 24 Hour Vital Signs Date Time Temp Pulse Resp B/P (MAP) Pulse Ox O2 Delivery O2 Flow Rate FiO2 07/14/19 18:00 122/62 07/14/19 18:00 122/62 07/14/19 18:00 122/62 07/14/19 16:00 97.5 42 18 122/62 (82) 92 07/14/19 15:13 119/55 07/14/19 12:00 119/55 07/14/19 12:00 97.0 47 20 119/55 (76) 93 07/14/19 09:00 Nasal Cannula 2.0 07/14/19 09:00 118/46 07/14/19 09:00 118/46 07/14/19 09:00 44 118/46 07/14/19 08:00 97.5 44 18 125/48 (73) 92 07/14/19 07:42 93 Nasal Cannula 3.0 32 07/14/19 05:46 158/63 07/14/19 05:45 158/63 07/14/19 04:00 97.5 46 20 156/52 (86) 96 07/14/19 00:15 178/64 07/14/19 00:14 178/64 07/14/19 00:14 178/64 07/14/19 00:00 98.7 53 20 178/64 (102) 96 Intake and Output 07/13/19 07/14/19 19:00 07:00 Intake Total 65 ml Output Total 1175 ml Balance -1110 ml Tube Feeding 65 ml Output Urine Total 1175 ml Laboratory Tests 07/14/19 05:05: White Blood Count 11.7H, Red Blood Count 4.18L, Hemoglobin 13.4L, Hematocrit 37.6L, Mean Corpuscular Volume 90, Mean Corpuscular Hemoglobin 32.0H, Mean Corpuscular Hemoglobin Concent 35.5, Red Cell Distribution Width 11.5L, Platelet Count 345, Mean Platelet Volume 6.6, Neutrophils (%) (Auto) 67.2, Lymphocytes (%) (Auto) 24.5, Monocytes (%) (Auto) 4.5, Eosinophils (%) (Auto) 2.9, Basophils (%) (Auto) 0.8 Height (Feet): 5 Height (Inches): 8.00 Weight (Pounds): 146 Objective Elderly man NCAT supple Coarse BS RR abd soft no edema Barb Lee MD Jul 14, 2019 21:18
[2019-07-15] VITALS: BP 122/74
[2019-07-15] MEDS: NovoLOG Insulin Flexpen SUBQ SCH ×5 (00:12→23:54)
[2019-07-15 04:00] VITALS: BP 151/79
[2019-07-15] MEDS: HydrALAZINE 25mg tab ORAL SCH ×3 (05:09→12:28)
[2019-07-15] MEDS: Nitroglycerin 2% oint pkt TOPIC SCH ×5 (05:10→23:54)
--- NOTE | 2019-07-15 07:30 | NUR ---
HAND-OFF: Report given to JUSTNIO Bell. Pt in stable condition.
--- NOTE | 2019-07-15 07:47 | NUR ---
NURSE NOTES: Received report from JUSTINO Reid. Rounding done with outgoing nurse. Pt is asleep. No discomfort noted. Lt FA IV access is in placed. Vital AF 1.2 is running @65ml/hr. Pt is on O2 2L/min. SCD is on. Bed in lowest position, call light within reach. Will continue to monitor.
[2019-07-15 08:00] VITALS: BP 158/79
[2019-07-15] MEDS: Minoxidil 10mg tab ORAL SCH ×2 (08:50→17:49)
[2019-07-15] MEDS: Lisinopril 10mg tab ORAL SCH ×2 (08:50→17:49)
--- NOTE | 2019-07-15 10:40 | NUR ---
NURSE NOTES: Dr. Borges came to see the pt. ordered weaning oxygen. Changed oxygen level 2L to 1L now.
--- NOTE | 2019-07-15 11:13 | Pulmonology Progress Note ---
Assessment/Plan Assessment/Plan Problem List: * Respiratory distress/insufficiency - improved * Bibasilar pulmonary infiltrates - likely aspiration pneumonia - resolved * Altered mental status * Acute CVA * DM Plan: * Monitor respiratory status, stable * Monitor off abx * PEG placement done * Duonebs * d/c planning Subjective ROS Limited/Unobtainable: Yes Interval Events: No acute events. Remains on oxygen Allergies: Coded Allergies: UNABLE TO ASSESS (Unverified , 06/18/19) All Systems: reviewed and negative except above Objective Last 24 Hour Vital Signs Date Time Temp Pulse Resp B/P (MAP) Pulse Ox O2 Delivery O2 Flow Rate FiO2 07/15/19 09:00 Nasal Cannula 2.0 07/15/19 08:50 158/79 07/15/19 08:50 158/79 07/15/19 08:50 50 158/79 07/15/19 08:00 98.0 50 18 158/79 (105) 97 07/15/19 05:10 151/79 07/15/19 05:09 151/79 07/15/19 04:00 98.3 60 19 151/79 (103) 97 07/15/19 00:00 122/74 07/15/19 00:00 122/74 07/15/19 00:00 98.4 46 20 122/74 (90) 96 07/14/19 21:00 Nasal Cannula 2.0 07/14/19 20:00 98.1 63 20 144/71 (95) 94 07/14/19 19:32 94 Nasal Cannula 3.0 32 07/14/19 18:00 122/62 07/14/19 18:00 122/62 07/14/19 18:00 122/62 07/14/19 16:00 97.5 42 18 122/62 (82) 92 07/14/19 15:13 119/55 07/14/19 12:00 119/55 07/14/19 12:00 97.0 47 20 119/55 (76) 93 Intake and Output 07/14/19 07/15/19 19:00 07:00 Intake Total 1145 ml Output Total 500 ml 900 ml Balance -500 ml 245 ml Free Water 300 ml Tube Feeding 845 ml Output Urine Total 500 ml 900 ml General Appearance: no acute distress HEENT: anicteric Respiratory/Chest: lungs clear Cardiovascular: normal rate, regular rhythm Abdomen: soft, non tender Extremities: no edema Neurologic/Psychiatric: alert Current Medications Medications (Trade) Dose Ordered Sig/Leonor Route PRN Reason Start Time Stop Time Status Last Admin Dose Admin Acetaminophen (Tylenol) 650 mg Q4H PRN NG Mild Pain/Temp > 100.5 07/05/19 05:48 07/28/19 05:47 Amlodipine Besylate (Norvasc) 10 mg DAILY NG 07/05/19 09:00 07/25/19 13:29 07/15/19 08:50 Aspirin (ASA) 325 mg DAILY NG 07/05/19 09:00 07/20/19 21:44 07/15/19 08:50 Dextrose (Dextrose 50%) 25 ml Q30M PRN IV Hypoglycemia 07/05/19 06:00 07/18/19 12:29 Dextrose (Dextrose 50%) 50 ml Q30M PRN IV Hypoglycemia 07/05/19 06:00 07/18/19 12:29 Hydralazine HCl (Apresoline) 25 mg Q6HR ORAL 07/05/19 06:00 08/01/19 11:59 07/15/19 05:09 Insulin Aspart (NovoLOG) No Dose Q6HR SUBQ 07/05/19 06:00 08/03/19 17:59 07/15/19 00:12 Lisinopril (ZestriL) 10 mg BID ORAL 07/07/19 18:00 08/06/19 17:59 07/15/19 08:50 Loperamide HCl (Imodium) 2 mg Q6H PRN NG Diarrhea 07/05/19 05:50 07/29/19 05:49 07/05/19 16:28 Magnesium Hydroxide (Mom) 30 ml HSPRN PRN NG Constipation 07/05/19 05:51 07/21/19 05:50 07/15/19 08:50 Minoxidil (Loniten) 2.5 mg Q4H PRN ORAL bp over 160 syst 07/05/19 07:45 08/01/19 11:44 07/14/19 00:14 Minoxidil (Loniten) 10 mg TWICE A DAY ORAL 07/11/19 18:00 08/06/19 17:59 07/15/19 08:50 Nitroglycerin (Nitro-Bid) 1 inch Q6HR TOPIC 07/05/19 06:00 07/31/19 20:59 07/15/19 05:10 Olanzapine (ZyPREXA) 5 mg BEDTIME ORAL 07/05/19 21:00 07/24/19 20:59 07/14/19 21:25 Ondansetron HCl (Zofran) 4 mg Q6H PRN IVP Nausea & Vomiting 07/05/19 06:15 07/21/19 18:14 Deni Borges MD Jul 15, 2019 11:13
--- NOTE | 2019-07-15 11:45 | Infectious Diseases Prog Note ---
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 Aphasia R hemiplegia Leukocytosis improving RECOMMENDATION: Observe off antibiotic Subjective ROS Limited/Unobtainable: Yes Neurologic: Reports: confusion, other - on restraint Allergies: Coded Allergies: UNABLE TO ASSESS (Unverified , 06/18/19) Objective Vital Signs Last 24 Hour Vital Signs Date Time Temp Pulse Resp B/P (MAP) Pulse Ox O2 Delivery O2 Flow Rate FiO2 07/15/19 09:00 Nasal Cannula 2.0 07/15/19 08:50 158/79 07/15/19 08:50 158/79 07/15/19 08:50 50 158/79 07/15/19 08:00 98.0 50 18 158/79 (105) 97 07/15/19 05:10 151/79 07/15/19 05:09 151/79 07/15/19 04:00 98.3 60 19 151/79 (103) 97 07/15/19 00:00 122/74 07/15/19 00:00 122/74 07/15/19 00:00 98.4 46 20 122/74 (90) 96 07/14/19 21:00 Nasal Cannula 2.0 07/14/19 20:00 98.1 63 20 144/71 (95) 94 07/14/19 19:32 94 Nasal Cannula 3.0 32 07/14/19 18:00 122/62 07/14/19 18:00 122/62 07/14/19 18:00 122/62 07/14/19 16:00 97.5 42 18 122/62 (82) 92 07/14/19 15:13 119/55 07/14/19 12:00 119/55 07/14/19 12:00 97.0 47 20 119/55 (76) 93 Height (Feet): 5 Height (Inches): 8.00 Weight (Pounds): 146 General Appearance: no acute distress HEENT: other - poor oral hygine Respiratory/Chest: lungs clear Cardiovascular: bradycardia Abdomen: soft, non tender Extremities: no edema Neurologic/Psychiatric: aphasia, other - R hemiplegia Current Medications Medications (Trade) Dose Ordered Sig/Leonor Route PRN Reason Start Time Stop Time Status Last Admin Dose Admin Acetaminophen (Tylenol) 650 mg Q4H PRN NG Mild Pain/Temp > 100.5 07/05/19 05:48 07/28/19 05:47 Amlodipine Besylate (Norvasc) 10 mg DAILY NG 07/05/19 09:00 07/25/19 13:29 07/15/19 08:50 Aspirin (ASA) 325 mg DAILY NG 07/05/19 09:00 07/20/19 21:44 07/15/19 08:50 Dextrose (Dextrose 50%) 25 ml Q30M PRN IV Hypoglycemia 07/05/19 06:00 07/18/19 12:29 Dextrose (Dextrose 50%) 50 ml Q30M PRN IV Hypoglycemia 07/05/19 06:00 07/18/19 12:29 Hydralazine HCl (Apresoline) 25 mg Q6HR ORAL 07/05/19 06:00 08/01/19 11:59 07/15/19 05:09 Insulin Aspart (NovoLOG) No Dose Q6HR SUBQ 07/05/19 06:00 08/03/19 17:59 07/15/19 00:12 Lisinopril (ZestriL) 10 mg BID ORAL 07/07/19 18:00 08/06/19 17:59 07/15/19 08:50 Loperamide HCl (Imodium) 2 mg Q6H PRN NG Diarrhea 07/05/19 05:50 07/29/19 05:49 07/05/19 16:28 Magnesium Hydroxide (Mom) 30 ml HSPRN PRN NG Constipation 07/05/19 05:51 07/21/19 05:50 07/15/19 08:50 Minoxidil (Loniten) 2.5 mg Q4H PRN ORAL bp over 160 syst 07/05/19 07:45 08/01/19 11:44 07/14/19 00:14 Minoxidil (Loniten) 10 mg TWICE A DAY ORAL 07/11/19 18:00 08/06/19 17:59 07/15/19 08:50 Nitroglycerin (Nitro-Bid) 1 inch Q6HR TOPIC 07/05/19 06:00 07/31/19 20:59 07/15/19 05:10 Olanzapine (ZyPREXA) 5 mg BEDTIME ORAL 07/05/19 21:00 07/24/19 20:59 07/14/19 21:25 Ondansetron HCl (Zofran) 4 mg Q6H PRN IVP Nausea & Vomiting 07/05/19 06:15 07/21/19 18:14 Bob Gilmore MD Jul 15, 2019 11:45
[2019-07-15 12:00] VITALS: BP 125/61
--- NOTE | 2019-07-15 14:15 | General Progress Note ---
Assessment/Plan Problem List: (1) Cellulitis of right hand ICD Codes: L03.113 - Cellulitis of right upper limb SNOMED: 63188868 (2) Altered level of consciousness ICD Codes: R40.4 - Transient alteration of awareness SNOMED: 5219502 (3) Sepsis ICD Codes: A41.9 - Sepsis, unspecified organism SNOMED: 93122455 Qualifiers: Qualified Codes: A41.9 - Sepsis, unspecified organism (4) Left middle cerebral artery stroke ICD Codes: I63.512 - Cerebral infarction due to unspecified occlusion or stenosis of left middle cerebral artery SNOMED: 920569049 (5) Left carotid artery occlusion ICD Codes: I65.22 - Occlusion and stenosis of left carotid artery SNOMED: 794312701287742 (6) Hypernatremia Assessment & Plan: better ICD Codes: E87.0 - Hyperosmolality and hypernatremia SNOMED: 773224228 (7) Hypokalemia Assessment & Plan: better ICD Codes: E87.6 - Hypokalemia SNOMED: 53147720 (8) DM (diabetes mellitus) ICD Codes: E11.9 - Type 2 diabetes mellitus without complications SNOMED: 99591001 (9) ARF (acute renal failure) Assessment & Plan: ok ICD Codes: N17.9 - Acute kidney failure, unspecified SNOMED: 25288962 (10) Hypertension ICD Codes: I10 - Essential (primary) hypertension SNOMED: 87859265 (11) Aspiration pneumonia ICD Codes: J69.0 - Pneumonitis due to inhalation of food and vomit SNOMED: 336698062 Status: stable, unchanged Assessment/Plan: continue ASA TF SSI follow labs DC Hydralazine increase Lisinopril Srat Metformin Subjective Allergies: Coded Allergies: UNABLE TO ASSESS (Unverified , 06/18/19) Subjective all noted Objective Last 24 Hour Vital Signs Date Time Temp Pulse Resp B/P (MAP) Pulse Ox O2 Delivery O2 Flow Rate FiO2 07/15/19 12:28 125/61 07/15/19 12:00 125/61 07/15/19 12:00 97.8 47 20 125/61 (82) 98 07/15/19 09:00 Nasal Cannula 2.0 07/15/19 08:50 158/79 07/15/19 08:50 158/79 07/15/19 08:50 50 158/79 07/15/19 08:00 98.0 50 18 158/79 (105) 97 07/15/19 05:10 151/79 07/15/19 05:09 151/79 07/15/19 04:00 98.3 60 19 151/79 (103) 97 07/15/19 00:00 122/74 07/15/19 00:00 122/74 07/15/19 00:00 98.4 46 20 122/74 (90) 96 07/14/19 21:00 Nasal Cannula 2.0 07/14/19 20:00 98.1 63 20 144/71 (95) 94 07/14/19 19:32 94 Nasal Cannula 3.0 32 07/14/19 18:00 122/62 07/14/19 18:00 122/62 07/14/19 18:00 122/62 07/14/19 16:00 97.5 42 18 122/62 (82) 92 07/14/19 15:13 119/55 Intake and Output 07/14/19 07/15/19 19:00 07:00 Intake Total 1145 ml Output Total 500 ml 900 ml Balance -500 ml 245 ml Free Water 300 ml Tube Feeding 845 ml Output Urine Total 500 ml 900 ml Height (Feet): 5 Height (Inches): 8.00 Weight (Pounds): 146 Cardiovascular: normal rate Respiratory/Chest: lungs clear Abdomen: non tender Kaz Gilmore MD Jul 15, 2019 14:15
[2019-07-15] MEDS: metFORMIN 500mg tab ORAL SCH ×2 (15:21→17:49)
--- NOTE | 2019-07-15 15:53 | General Progress Note ---
Assessment/Plan Status: stable, unchanged Assessment/Plan: Assessment - Acute CVA - AMS - Dysphagia - arrhythmia - free water deficit - poor prognosis Recommendations - IVF - Abx - monitor labs - follow BM pattern - GT feeds - vital AF - rate per RD rec Subjective Allergies: Coded Allergies: UNABLE TO ASSESS (Unverified , 06/18/19) Subjective above noted tolerating TF arousable calm non-interactive Objective Last 24 Hour Vital Signs Date Time Temp Pulse Resp B/P (MAP) Pulse Ox O2 Delivery O2 Flow Rate FiO2 07/15/19 12:28 125/61 07/15/19 12:00 125/61 07/15/19 12:00 97.8 47 20 125/61 (82) 98 07/15/19 09:00 Nasal Cannula 2.0 07/15/19 08:50 158/79 07/15/19 08:50 158/79 07/15/19 08:50 50 158/79 07/15/19 08:00 98.0 50 18 158/79 (105) 97 07/15/19 05:10 151/79 07/15/19 05:09 151/79 07/15/19 04:00 98.3 60 19 151/79 (103) 97 07/15/19 00:00 122/74 07/15/19 00:00 122/74 07/15/19 00:00 98.4 46 20 122/74 (90) 96 07/14/19 21:00 Nasal Cannula 2.0 07/14/19 20:00 98.1 63 20 144/71 (95) 94 07/14/19 19:32 94 Nasal Cannula 3.0 32 07/14/19 18:00 122/62 07/14/19 18:00 122/62 07/14/19 18:00 122/62 07/14/19 16:00 97.5 42 18 122/62 (82) 92 Intake and Output 07/14/19 07/15/19 19:00 07:00 Intake Total 1145 ml Output Total 500 ml 900 ml Balance -500 ml 245 ml Free Water 300 ml Tube Feeding 845 ml Output Urine Total 500 ml 900 ml Height (Feet): 5 Height (Inches): 8.00 Weight (Pounds): 146 Objective Elderly man NCAT supple Coarse BS RR abd soft no edema Barb Lee MD Jul 15, 2019 15:53
[2019-07-15 16:00] VITALS: BP 166/74
--- NOTE | 2019-07-15 16:49 | NUR ---
[employer]: REVIEW 07/15/2019 SI: CVA . ENCEPHALOMALACIA . DM . ARF . CELLULITIS OF LEFT HAND . 97.8 40 18 166/74 95% ON 2L NC IS: ZYPREXA PO QHS LONITEN Q4HR/PRN LISINOPRIL PO BID NOVOLOG SQ Q6HR ASA NG QD NITRO-BID TP Q6HR METFORMIN PO BID \:MED/SURG STATUS
--- NOTE | 2019-07-15 19:22 | NUR ---
HAND-OFF: Report given to JUSTINO Reid. Pt is stable.
--- NOTE | 2019-07-15 19:30 | NUR ---
NURSE NOTES: Pt. received from JUSTINO Montilla. Pt. awake at this time, nonverbal, on NC 1L, no signs of pain and no indications of respiratory distress at this time. Gtube running, 65cc/hr, head of bed is elevated per protocol. Condom catheter intact, draining yellow urine. IV hand left hand 22g asymptomatic, intact and patent; saline locked. Left soft wrist restraint applied, movement and sensation intact, pulse palpable, and cap. refill <3 seconds. Bed is low and locked, side rails x2 up, and call light is in reach. Will continue to monitor.
[2019-07-15 20:00] VITALS: BP 178/82
[2019-07-15] MEDS: Minoxidil 2.5mg tab ORAL PRN (20:18)
[2019-07-16] VITALS: BP 132/52
[2019-07-16 04:00] VITALS: BP 140/59
[2019-07-16] MEDS: Nitroglycerin 2% oint pkt TOPIC SCH ×3 (06:06→17:54)
[2019-07-16] MEDS: NovoLOG Insulin Flexpen SUBQ SCH ×3 (06:06→17:52)
--- NOTE | 2019-07-16 07:47 | NUR ---
HAND-OFF: Report given to JUSTINO Lujan. Pt in stable condition.
--- NOTE | 2019-07-16 07:48 | NUR ---
NURSE NOTES: Received patient in bed, awake, opens his eyes spontaneously. Non-vebal and does not follow commands but able to move his left leg and arm,still with left soft wrist restraint with episodes of trying to remove his Gt tubing. GT intact, no residual. HB elevated to prevent aspiration. Re-position and incontinent care done. frequent visual check for safety and needs. N s/s of pain per FLACC pain scale. Bed is in lowest position and alarm is on. will continue plan of care.
[2019-07-16 08:00] VITALS: BP 140/83
[2019-07-16] MEDS: metFORMIN 500mg tab ORAL SCH ×2 (08:45→17:54)
[2019-07-16] MEDS: Minoxidil 10mg tab ORAL SCH ×2 (08:45→17:55)
[2019-07-16] MEDS: Lisinopril 10mg tab ORAL SCH ×2 (08:46→17:55)
[2019-07-16 12:00] VITALS: BP 125/62
[2019-07-16 16:00] VITALS: BP 146/57
--- NOTE | 2019-07-16 17:11 | General Progress Note ---
Assessment/Plan Status: stable, unchanged Assessment/Plan: Assessment - Acute CVA - AMS - Dysphagia - arrhythmia - free water deficit - poor prognosis Recommendations - IVF - Abx - monitor labs - follow BM pattern - GT feeds - vital AF - rate per RD rec Subjective Allergies: Coded Allergies: UNABLE TO ASSESS (Unverified , 06/18/19) Subjective above noted tolerating TF arousable calm non-interactive Objective Last 24 Hour Vital Signs Date Time Temp Pulse Resp B/P (MAP) Pulse Ox O2 Delivery O2 Flow Rate FiO2 07/16/19 16:00 97.5 48 20 146/57 (86) 96 07/16/19 12:30 125/62 07/16/19 12:00 98.1 53 20 125/62 (83) 96 07/16/19 09:00 Nasal Cannula 2.0 07/16/19 08:46 140/83 07/16/19 08:46 47 140/83 07/16/19 08:45 140/83 07/16/19 08:00 97.6 47 20 140/83 (102) 96 07/16/19 06:06 167/70 07/16/19 04:00 98.1 43 20 140/59 (86) 96 07/16/19 00:00 97.4 43 20 132/52 (78) 94 07/15/19 23:54 132/52 07/15/19 21:00 Nasal Cannula 2.0 07/15/19 20:24 93 Nasal Cannula 3.0 32 07/15/19 20:18 178/82 07/15/19 20:00 98.3 47 20 178/82 (114) 93 07/15/19 17:49 166/74 07/15/19 17:49 166/74 07/15/19 17:49 166/74 Intake and Output 07/15/19 07/16/19 19:00 07:00 Intake Total 1015 ml 430 ml Output Total 600 ml 200 ml Balance 415 ml 230 ml Free Water 300 ml 300 ml Tube Feeding 715 ml 130 ml Output Urine Total 600 ml 200 ml # Voids 2 # Bowel Movements 1 1 Height (Feet): 5 Height (Inches): 8.00 Weight (Pounds): 146 Objective Elderly man NCAT supple Coarse BS RR abd soft no edema Barb Lee MD Jul 16, 2019 17:11
--- NOTE | 2019-07-16 18:23 | General Progress Note ---
Assessment/Plan Problem List: (1) Cellulitis of right hand ICD Codes: L03.113 - Cellulitis of right upper limb SNOMED: 67768799 (2) Altered level of consciousness ICD Codes: R40.4 - Transient alteration of awareness SNOMED: 0147066 (3) Sepsis ICD Codes: A41.9 - Sepsis, unspecified organism SNOMED: 53976214 Qualifiers: Qualified Codes: A41.9 - Sepsis, unspecified organism (4) Left middle cerebral artery stroke ICD Codes: I63.512 - Cerebral infarction due to unspecified occlusion or stenosis of left middle cerebral artery SNOMED: 277143769 (5) Left carotid artery occlusion ICD Codes: I65.22 - Occlusion and stenosis of left carotid artery SNOMED: 339411955562901 (6) Hypernatremia Assessment & Plan: better ICD Codes: E87.0 - Hyperosmolality and hypernatremia SNOMED: 529030522 (7) Hypokalemia Assessment & Plan: better ICD Codes: E87.6 - Hypokalemia SNOMED: 31070008 (8) DM (diabetes mellitus) ICD Codes: E11.9 - Type 2 diabetes mellitus without complications SNOMED: 88301314 (9) ARF (acute renal failure) Assessment & Plan: ok ICD Codes: N17.9 - Acute kidney failure, unspecified SNOMED: 67304203 (10) Hypertension ICD Codes: I10 - Essential (primary) hypertension SNOMED: 35386490 (11) Aspiration pneumonia ICD Codes: J69.0 - Pneumonitis due to inhalation of food and vomit SNOMED: 234838684 Status: stable, unchanged Assessment/Plan: continue ASA TF SSI follow labs increase Lisinopril cont Metformin Subjective Allergies: Coded Allergies: UNABLE TO ASSESS (Unverified , 06/18/19) Subjective In NAD Objective Last 24 Hour Vital Signs Date Time Temp Pulse Resp B/P (MAP) Pulse Ox O2 Delivery O2 Flow Rate FiO2 07/16/19 17:55 146/58 07/16/19 17:54 146/58 07/16/19 16:00 97.5 48 20 146/57 (86) 96 07/16/19 12:30 125/62 07/16/19 12:00 98.1 53 20 125/62 (83) 96 07/16/19 09:00 Nasal Cannula 2.0 07/16/19 08:46 140/83 07/16/19 08:46 47 140/83 07/16/19 08:45 140/83 07/16/19 08:00 97.6 47 20 140/83 (102) 96 07/16/19 06:06 167/70 07/16/19 04:00 98.1 43 20 140/59 (86) 96 07/16/19 00:00 97.4 43 20 132/52 (78) 94 07/15/19 23:54 132/52 07/15/19 21:00 Nasal Cannula 2.0 07/15/19 20:24 93 Nasal Cannula 3.0 32 07/15/19 20:18 178/82 07/15/19 20:00 98.3 47 20 178/82 (114) 93 Intake and Output 07/15/19 07/16/19 19:00 07:00 Intake Total 1015 ml 430 ml Output Total 600 ml 200 ml Balance 415 ml 230 ml Free Water 300 ml 300 ml Tube Feeding 715 ml 130 ml Output Urine Total 600 ml 200 ml # Voids 2 # Bowel Movements 1 1 Height (Feet): 5 Height (Inches): 8.00 Weight (Pounds): 146 Cardiovascular: normal rate Respiratory/Chest: lungs clear Abdomen: soft Kaz Gilmore MD Jul 16, 2019 18:23
--- NOTE | 2019-07-16 19:00 | NUR ---
NURSE NOTES: Throughout the shift, re-position done Q2hr, restraint care done, no swelling or bruise on wrist. Proper incontinent care done and skin assessment done, no new skin issues on pressure points. Sacral, perineal, buttocks remains same skin condition. No changes in condition. Unable to administer some blood pressure meds due to decreased pulse rate. Dr. Melagr was paged but no return call.
--- NOTE | 2019-07-16 19:20 | NUR ---
NURSE NOTES: Receive a report from JUSTINO Tello. Round is done. Pt is asleep without acute distress. Breathing is even and non labored. Bed bound with Rt side hemiparesis. Left hand is on arm restraint. Skin and circulation intact. On G-tube feeding with head-up elevation. No aspiration noted. On O2 2L NC. Yellow urine is patent via condom catheter. Will continue to monitor.
--- NOTE | 2019-07-16 19:22 | NUR ---
HAND-OFF: Report given to Oh and endorsed plan of care.
[2019-07-16 20:00] VITALS: BP 152/68
--- NOTE | 2019-07-16 23:00 | NUR ---
NURSE NOTES: Condom catheter got removed. Change is done. Buttock area kept dry and clean. Done with Triad cream and opticform. Done position q 2hrs. Will continue to monitor.
[2019-07-17] VITALS: BP 149/92
[2019-07-17] MEDS: NovoLOG Insulin Flexpen SUBQ SCH ×4 (00:03→18:42)
[2019-07-17] MEDS: Nitroglycerin 2% oint pkt TOPIC SCH ×4 (00:05→18:41)
[2019-07-17 04:00] VITALS: BP 127/59
--- NOTE | 2019-07-17 07:40 | NUR ---
NURSE NOTES: Received report from JUSTINO Mariano. Patient nonverbal with spontaneous eye movement. On nasal cannula, no signs of distress or labored breathing. IV intact, patent, and saline locked. GTube intact, patent, and infusing feeding. Condom catheter connected to drainage bag, draining urine. Bed in lowest position. Will continue with plan of care.
--- NOTE | 2019-07-17 07:50 | NUR ---
HAND-OFF: Report given to JUSTINO Gorman. Round is done. No acute distress noted.
[2019-07-17 08:00] VITALS: BP 141/62
[2019-07-17] MEDS: Lisinopril 10mg tab ORAL SCH ×2 (09:00→18:00)
[2019-07-17] MEDS: Minoxidil 10mg tab ORAL SCH ×2 (10:56→18:41)
[2019-07-17] MEDS: metFORMIN 500mg tab ORAL SCH ×2 (10:56→18:41)
[2019-07-17 12:00] VITALS: BP 184/71
--- NOTE | 2019-07-17 14:42 | Infectious Diseases Prog Note ---
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 Aphasia R hemiplegia Leukocytosis improving RECOMMENDATION: Observe off antibiotic Subjective ROS Limited/Unobtainable: Yes Constitutional: Denies: fever Neurologic: Reports: confusion, other - on restraint Allergies: Coded Allergies: UNABLE TO ASSESS (Unverified , 06/18/19) Objective Vital Signs Last 24 Hour Vital Signs Date Time Temp Pulse Resp B/P (MAP) Pulse Ox O2 Delivery O2 Flow Rate FiO2 07/17/19 13:29 184/71 07/17/19 12:00 97.2 50 20 184/71 (108) 93 07/17/19 10:56 141/62 07/17/19 09:00 141/62 07/17/19 09:00 53 141/62 07/17/19 08:00 98.0 53 22 141/62 (88) 94 07/17/19 07:20 95 Nasal Cannula 3.0 32 07/17/19 06:12 127/59 07/17/19 04:00 97.5 66 20 127/59 (81) 96 07/17/19 00:05 149/92 07/17/19 00:00 97.6 58 20 149/92 (111) 97 07/16/19 21:00 Nasal Cannula 2.0 07/16/19 20:00 97.4 50 20 152/68 (96) 94 07/16/19 17:55 146/58 07/16/19 17:54 146/58 07/16/19 16:00 97.5 48 20 146/57 (86) 96 Height (Feet): 5 Height (Inches): 8.00 Weight (Pounds): 146 General Appearance: no acute distress HEENT: mucous membranes moist Respiratory/Chest: lungs clear Abdomen: soft, non tender, other - GT feeding Extremities: no edema Neurologic/Psychiatric: aphasia, other - R heiplegia Current Medications Medications (Trade) Dose Ordered Sig/Leonor Route PRN Reason Start Time Stop Time Status Last Admin Dose Admin Acetaminophen (Tylenol) 650 mg Q4H PRN NG Mild Pain/Temp > 100.5 07/05/19 05:48 07/28/19 05:47 Amlodipine Besylate (Norvasc) 10 mg DAILY NG 07/05/19 09:00 07/25/19 13:29 07/15/19 08:50 Aspirin (ASA) 325 mg DAILY NG 07/05/19 09:00 07/20/19 21:44 07/17/19 10:56 Dextrose (Dextrose 50%) 25 ml Q30M PRN IV Hypoglycemia 07/05/19 06:00 07/18/19 12:29 Dextrose (Dextrose 50%) 50 ml Q30M PRN IV Hypoglycemia 07/05/19 06:00 07/18/19 12:29 Insulin Aspart (NovoLOG) No Dose Q6HR SUBQ 07/05/19 06:00 08/03/19 17:59 07/17/19 13:13 Lisinopril (ZestriL) 20 mg BID ORAL 07/15/19 18:00 08/06/19 17:59 07/15/19 17:49 Loperamide HCl (Imodium) 2 mg Q6H PRN NG Diarrhea 07/05/19 05:50 07/29/19 05:49 07/05/19 16:28 Magnesium Hydroxide (Mom) 30 ml HSPRN PRN NG Constipation 07/05/19 05:51 07/21/19 05:50 07/15/19 08:50 Metformin HCl (Glucophage) 500 mg BID ORAL 07/15/19 15:00 08/14/19 14:59 07/17/19 10:56 Minoxidil (Loniten) 2.5 mg Q4H PRN ORAL bp over 160 syst 07/05/19 07:45 08/01/19 11:44 07/15/19 20:18 Minoxidil (Loniten) 10 mg TWICE A DAY ORAL 07/11/19 18:00 08/06/19 17:59 07/17/19 10:56 Nitroglycerin (Nitro-Bid) 1 inch Q6HR TOPIC 07/05/19 06:00 07/31/19 20:59 07/17/19 13:29 Olanzapine (ZyPREXA) 5 mg BEDTIME ORAL 07/05/19 21:00 07/24/19 20:59 07/16/19 22:30 Ondansetron HCl (Zofran) 4 mg Q6H PRN IVP Nausea & Vomiting 07/05/19 06:15 07/21/19 18:14 Bob Gilmore MD Jul 17, 2019 14:42
--- NOTE | 2019-07-17 16:25 | General Progress Note ---
Assessment/Plan Status: stable, unchanged Assessment/Plan: Assessment - Acute CVA - AMS - Dysphagia - arrhythmia - free water deficit - poor prognosis Recommendations - IVF - Abx - monitor labs - follow BM pattern - GT feeds - vital AF - rate per RD rec Subjective Allergies: Coded Allergies: UNABLE TO ASSESS (Unverified , 06/18/19) Subjective above noted tolerating TF arousable calm non-interactive Objective Last 24 Hour Vital Signs Date Time Temp Pulse Resp B/P (MAP) Pulse Ox O2 Delivery O2 Flow Rate FiO2 07/17/19 13:29 184/71 07/17/19 12:00 97.2 50 20 184/71 (108) 93 07/17/19 10:56 141/62 07/17/19 09:00 Nasal Cannula 2.0 07/17/19 09:00 141/62 07/17/19 09:00 53 141/62 07/17/19 08:00 98.0 53 22 141/62 (88) 94 07/17/19 07:20 95 Nasal Cannula 3.0 32 07/17/19 06:12 127/59 07/17/19 04:00 97.5 66 20 127/59 (81) 96 07/17/19 00:05 149/92 07/17/19 00:00 97.6 58 20 149/92 (111) 97 07/16/19 21:00 Nasal Cannula 2.0 07/16/19 20:00 97.4 50 20 152/68 (96) 94 07/16/19 17:55 146/58 07/16/19 17:54 146/58 Intake and Output 07/16/19 07/17/19 19:00 07:00 Intake Total 830 ml 280 ml Output Total 575 ml Balance 830 ml -295 ml Free Water 180 ml 150 ml Tube Feeding 650 ml 130 ml Output Urine Total 575 ml # Voids 4 Height (Feet): 5 Height (Inches): 8.00 Weight (Pounds): 146 Objective Elderly man NCAT supple Coarse BS RR abd soft no edema Barb Lee MD Jul 17, 2019 16:25
[2019-07-17 16:55] VITALS: BP 128/65
--- NOTE | 2019-07-17 19:40 | NUR ---
HAND-OFF: Report given to Baljit Garcia RN.
[2019-07-17 20:00] VITALS: BP 120/62
[2019-07-18] VITALS: BP 160/62
[2019-07-18] MEDS: Nitroglycerin 2% oint pkt TOPIC SCH ×5 (00:57→23:59)
[2019-07-18 04:00] VITALS: BP 106/73
[2019-07-18 07:16] LABS: BASOPHILS % (AUTO) 0.8 % (0.0-2.0); EOSINOPHILS % (AUTO) 1.8 % (0.0-3.0); HEMATOCRIT 42.5 % (42.0-52.0); HEMOGLOBIN 14.8 G/DL (14.2-18.0); LYMPHOCYTES % (AUTO) 28.3 % (20.0-45.0); MEAN CORPUSCULAR VOLUME 89 FL (80-99); MONOCYTES % (AUTO) 4.7 % (1.0-10.0); NEUTROPHILS % (AUTO) 64.4 % (45.0-75.0); PLATELET COUNT 301 K/UL (150-450); RED BLOOD COUNT 4.76 M/UL (4.70-6.10); RED CELL DISTRIBUTION WIDTH 11.5 % (11.6-14.8); WHITE BLOOD COUNT 12.2 K/UL (4.8-10.8)
--- NOTE | 2019-07-18 07:30 | NUR ---
HAND-OFF: Report given to BIRDIE BADILLO.
--- NOTE | 2019-07-18 07:30 | NUR ---
NURSE NOTES: Report received from Baljit Garcia RN. Patient is nonverbal with spontaneous eye opening. On 2 liters via nasal canula, does not appear to be in respiratory distress at this time. 22 [place] IV noted in left hand, heparin lock. In tact and patent. Condom catheter in place draining clear yellow urine. G tube in tact and patent with Vital AF 1.2 running at 65 cc/hr. Bilateral soft wrist restraints noted due to patient pulling at lines. No order renewal needed at this time. Patients hands have normal skin tone, good circulation, and no edema noted. Will continue to follow plan of care. Addendum: 07/18/19 at 1243 by Davide Ruiz RN correction: only one soft wrist restraint on left hand.
[2019-07-18 08:00] VITALS: BP 149/72
[2019-07-18] MEDS: NovoLOG Insulin Flexpen SUBQ SCH ×5 (08:08→23:52)
[2019-07-18] MEDS: Minoxidil 10mg tab ORAL SCH ×2 (09:11→18:00)
[2019-07-18] MEDS: metFORMIN 500mg tab ORAL SCH ×2 (09:12→20:03)
[2019-07-18] MEDS: Lisinopril 10mg tab ORAL SCH (09:12)
--- NOTE | 2019-07-18 11:35 | General Progress Note ---
Assessment/Plan Problem List: (1) Cellulitis of right hand ICD Codes: L03.113 - Cellulitis of right upper limb SNOMED: 42802950 (2) Altered level of consciousness ICD Codes: R40.4 - Transient alteration of awareness SNOMED: 3288582 (3) Sepsis ICD Codes: A41.9 - Sepsis, unspecified organism SNOMED: 44806065 Qualifiers: Qualified Codes: A41.9 - Sepsis, unspecified organism (4) Left middle cerebral artery stroke ICD Codes: I63.512 - Cerebral infarction due to unspecified occlusion or stenosis of left middle cerebral artery SNOMED: 413176371 (5) Left carotid artery occlusion ICD Codes: I65.22 - Occlusion and stenosis of left carotid artery SNOMED: 007171070034696 (6) Hypernatremia Assessment & Plan: better ICD Codes: E87.0 - Hyperosmolality and hypernatremia SNOMED: 274533982 (7) Hypokalemia Assessment & Plan: better ICD Codes: E87.6 - Hypokalemia SNOMED: 32268443 (8) DM (diabetes mellitus) ICD Codes: E11.9 - Type 2 diabetes mellitus without complications SNOMED: 83162844 (9) ARF (acute renal failure) Assessment & Plan: ok ICD Codes: N17.9 - Acute kidney failure, unspecified SNOMED: 51168952 (10) Hypertension ICD Codes: I10 - Essential (primary) hypertension SNOMED: 24119527 (11) Aspiration pneumonia ICD Codes: J69.0 - Pneumonitis due to inhalation of food and vomit SNOMED: 209307291 Status: stable, unchanged Assessment/Plan: continue ASA TF SSI follow labs cont Lisinopril cont Metformin Subjective Allergies: Coded Allergies: UNABLE TO ASSESS (Unverified , 06/18/19) Subjective In NAD Objective Last 24 Hour Vital Signs Date Time Temp Pulse Resp B/P (MAP) Pulse Ox O2 Delivery O2 Flow Rate FiO2 07/18/19 09:13 72 139/79 07/18/19 09:12 139/79 07/18/19 09:11 139/79 07/18/19 09:00 Nasal Cannula 2.0 07/18/19 08:05 106/73 07/18/19 08:00 98.4 73 19 149/72 (97) 95 07/18/19 04:00 98.7 58 20 106/73 (84) 98 07/18/19 00:57 160/65 07/18/19 00:00 99.0 55 20 160/62 (94) 95 07/17/19 21:00 Nasal Cannula 2.0 07/17/19 20:44 95 Nasal Cannula 3.0 32 07/17/19 20:00 98.1 78 20 120/62 (81) 93 07/17/19 19:18 97.3 07/17/19 18:41 128/65 07/17/19 18:41 128/65 07/17/19 18:00 128/65 07/17/19 16:55 97.3 52 20 128/65 (86) 94 07/17/19 13:29 184/71 07/17/19 12:00 97.2 50 20 184/71 (108) 93 Intake and Output 07/17/19 07/18/19 19:00 07:00 Intake Total 945 ml 750 ml Output Total 100 ml 450 ml Balance 845 ml 300 ml Free Water 230 ml 100 ml Tube Feeding 715 ml 650 ml Output Urine Total 100 ml 450 ml Laboratory Tests 07/18/19 05:00: White Blood Count 12.2H, Red Blood Count 4.76, Hemoglobin 14.8, Hematocrit 42.5 , Mean Corpuscular Volume 89, Mean Corpuscular Hemoglobin 31.1H, Mean Corpuscular Hemoglobin Concent 34.8, Red Cell Distribution Width 11.5L, Platelet Count 301, Mean Platelet Volume 6.5, Neutrophils (%) (Auto) 64.4, Lymphocytes (%) (Auto) 28.3, Monocytes (%) (Auto) 4.7, Eosinophils (%) (Auto) 1.8, Basophils (%) (Auto) 0.8 Height (Feet): 5 Height (Inches): 8.00 Weight (Pounds): 146 Cardiovascular: normal rate Respiratory/Chest: lungs clear Edema: no edema noted Generalized Kaz Gilmore MD Jul 18, 2019 11:35
[2019-07-18 12:00] VITALS: BP 113/68
--- NOTE | 2019-07-18 12:47 | Infectious Diseases Prog Note ---
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 Aphasia R hemiplegia Leukocytosis improving RECOMMENDATION: Observe off antibiotic Subjective ROS Limited/Unobtainable: Yes Neurologic: Reports: confusion, other - on restraint Allergies: Coded Allergies: UNABLE TO ASSESS (Unverified , 06/18/19) Objective Vital Signs Last 24 Hour Vital Signs Date Time Temp Pulse Resp B/P (MAP) Pulse Ox O2 Delivery O2 Flow Rate FiO2 07/18/19 12:42 134/70 07/18/19 12:00 97.3 85 19 113/68 (83) 96 07/18/19 09:13 72 139/79 07/18/19 09:12 139/79 07/18/19 09:11 139/79 07/18/19 09:00 Nasal Cannula 2.0 07/18/19 08:05 106/73 07/18/19 08:00 98.4 73 19 149/72 (97) 95 07/18/19 04:00 98.7 58 20 106/73 (84) 98 07/18/19 00:57 160/65 07/18/19 00:00 99.0 55 20 160/62 (94) 95 07/17/19 21:00 Nasal Cannula 2.0 07/17/19 20:44 95 Nasal Cannula 3.0 32 07/17/19 20:00 98.1 78 20 120/62 (81) 93 07/17/19 19:18 97.3 07/17/19 18:41 128/65 07/17/19 18:41 128/65 07/17/19 18:00 128/65 07/17/19 16:55 97.3 52 20 128/65 (86) 94 07/17/19 13:29 184/71 Height (Feet): 5 Height (Inches): 8.00 Weight (Pounds): 146 General Appearance: no acute distress Respiratory/Chest: lungs clear Cardiovascular: normal rate Abdomen: soft, non tender Extremities: no edema Neurologic/Psychiatric: other - R hemiplegia Laboratory Tests Test 07/18/19 05:00 White Blood Count 12.2 K/UL (4.8-10.8) H Red Blood Count 4.76 M/UL (4.70-6.10) Hemoglobin 14.8 G/DL (14.2-18.0) Hematocrit 42.5 % (42.0-52.0) Mean Corpuscular Volume 89 FL (80-99) Mean Corpuscular Hemoglobin 31.1 PG (27.0-31.0) H Mean Corpuscular Hemoglobin Concent 34.8 G/DL (32.0-36.0) Red Cell Distribution Width 11.5 % (11.6-14.8) L Platelet Count 301 K/UL (150-450) Mean Platelet Volume 6.5 FL (6.5-10.1) Neutrophils (%) (Auto) 64.4 % (45.0-75.0) Lymphocytes (%) (Auto) 28.3 % (20.0-45.0) Monocytes (%) (Auto) 4.7 % (1.0-10.0) Eosinophils (%) (Auto) 1.8 % (0.0-3.0) Basophils (%) (Auto) 0.8 % (0.0-2.0) Current Medications Medications (Trade) Dose Ordered Sig/Leonor Route PRN Reason Start Time Stop Time Status Last Admin Dose Admin Acetaminophen (Tylenol) 650 mg Q4H PRN NG Mild Pain/Temp > 100.5 07/05/19 05:48 07/28/19 05:47 07/17/19 18:48 Amlodipine Besylate (Norvasc) 10 mg DAILY NG 07/05/19 09:00 07/25/19 13:29 07/18/19 09:13 Aspirin (ASA) 325 mg DAILY NG 07/05/19 09:00 07/20/19 21:44 07/18/19 09:12 Insulin Aspart (NovoLOG) No Dose Q6HR SUBQ 07/05/19 06:00 08/03/19 17:59 07/18/19 12:41 Lisinopril (PriniviL) 20 mg Q12HR ORAL 07/18/19 21:00 08/17/19 20:59 Loperamide HCl (Imodium) 2 mg Q6H PRN NG Diarrhea 07/05/19 05:50 07/29/19 05:49 07/05/19 16:28 Magnesium Hydroxide (Mom) 30 ml HSPRN PRN NG Constipation 07/05/19 05:51 07/21/19 05:50 07/15/19 08:50 Metformin HCl (Glucophage) 500 mg BID ORAL 07/15/19 15:00 08/14/19 14:59 07/18/19 09:12 Minoxidil (Loniten) 2.5 mg Q4H PRN ORAL bp over 160 syst 07/05/19 07:45 08/01/19 11:44 07/15/19 20:18 Minoxidil (Loniten) 10 mg TWICE A DAY ORAL 07/11/19 18:00 08/06/19 17:59 07/18/19 09:11 Nitroglycerin (Nitro-Bid) 1 inch Q6HR TOPIC 07/05/19 06:00 07/31/19 20:59 07/18/19 12:42 Olanzapine (ZyPREXA) 5 mg BEDTIME ORAL 07/05/19 21:00 07/24/19 20:59 07/17/19 23:01 Ondansetron HCl (Zofran) 4 mg Q6H PRN IVP Nausea & Vomiting 07/05/19 06:15 07/21/19 18:14 Bob Gilmore MD Jul 18, 2019 12:47
--- NOTE | 2019-07-18 14:37 | NUR ---
RD ASSESSMENT & RECOMMENDATIONS SEE CARE ACTIVITY FOR COMPLETE ASSESSMENT DAILY ESTIMATED NEEDS: Needs based on sepsis, DTPI 72kg adj 25-30 kcals/kg 1102-5568 total kcals 1.25-2 g protein/kg 90-144 g total protein 25-30 mL/kg 2363-2904 total fluid mLs NUTRITION DIAGNOSIS: * Swallowing difficulty R/T dysphagia, s/p new and old CVA as evidenced by NPO per CIRCULAR SAW OPERATOR rec, has been on NGT feeds, s/p PEG placement, on GT feeds. * Altered nutrition related lab values r/t sepsis, DM, volume deficit as evidenced by elev WBC (12.6), elev POC glu (135-201) w/ A1C 6.9, elev Na (153-> wnl), elev BUN (51 trend up), elev creat (1.5-> wnl) CURRENT TF:Vital 1.2 @65ml x24 hrs ENTERAL NUTRITION RECOMMENDATIONS: VITAL 1.2 @ 65ml/hr x 24 hrs to provide 1560ml, 1872kcal, 117g prot, 1265ml free water - Maintain as tolerated - HOB over 30 degrees - H20 flush of 150ml q 4 hrs ADDITIONAL RECOMMENDATIONS: 1) CALIBRATED bedscale wt: fluctuating wts 2) Monitor for readiness fo oral grat, MBSS- monitor CIRCULAR SAW OPERATOR rec- now s/p PEG 3) Monitor BGs closely-consider long acting insulin for improved BG control 4) BUN trend up : increase water flushes, see above rec 5) Monitor lytes, replete as needed 6) Probiotics w/ continued diarrhea. .
[2019-07-18] MEDS ORDERED: Sterile Water Irrig 1000ml IRRIG ONE (15:13)
[2019-07-18] MEDS ORDERED: Tubing IV Secondary IV ONE (15:13)
--- NOTE | 2019-07-18 15:40 | NUR ---
BODY MASKER: REVIEW 07/16/2019 SI: ACUTE CVA . ENCEPHALOMALACIA . DM . ARF . CELLULITIS OF LEFT HAND . 98.1 53 20 125/62 96% ON 2L NC IS: ZYPREXA PO QHS LONITEN Q4HR/PRN LISINOPRIL PO BID NOVOLOG SQ Q6HR ASA NG QD NITRO-BID TP Q6HR METFORMIN PO BID \:MED/SURG STATUS PLAN: MONITOR OFF RESTRAINTS BODY MASKER: REVIEW 07/17/2019 SI: ACUTE CVA . ENCEPHALOMALACIA . DM . ARF . CELLULITIS OF LEFT HAND . 98.0 53 22 141/62 94% ON 2L NC IS: ZYPREXA PO QHS LONITEN Q4HR/PRN LISINOPRIL PO BID NOVOLOG SQ Q6HR ASA NG QD NITRO-BID TP Q6HR METFORMIN PO BID \:MED/SURG STATUS BODY MASKER: REVIEW 07/18/2019 SI: ACUTE CVA . ENCEPHALOMALACIA . DM . ARF . CELLULITIS OF LEFT HAND . 98.4 73 19 149/72 95% ON 2L NC WBC 12.2 IS: ZYPREXA PO QHS LONITEN Q4HR/PRN LISINOPRIL PO BID NOVOLOG SQ Q6HR ASA NG QD NITRO-BID TP Q6HR METFORMIN PO BID \:MED/SURG STATUS PLAN: MEDICAL PRESUMPTIVE NEURO CHECKS MONITOR OFF RESTRAINTS
[2019-07-18 16:00] VITALS: BP 115/72
[2019-07-18 20:00] VITALS: BP 125/50
[2019-07-18] MEDS: Lisinopril 20mg tab ORAL SCH (20:43)
--- NOTE | 2019-07-18 21:27 | General Progress Note ---
Assessment/Plan Status: stable, unchanged Assessment/Plan: Assessment - Acute CVA - AMS - Dysphagia - arrhythmia - free water deficit - poor prognosis Recommendations - IVF - Abx - monitor labs - follow BM pattern - GT feeds - vital AF - rate per RD rec Subjective Allergies: Coded Allergies: UNABLE TO ASSESS (Unverified , 06/18/19) Subjective above noted tolerating TF arousable calm non-interactive Objective Last 24 Hour Vital Signs Date Time Temp Pulse Resp B/P (MAP) Pulse Ox O2 Delivery O2 Flow Rate FiO2 07/18/19 20:43 125/50 07/18/19 20:04 115/72 07/18/19 18:00 115/72 07/18/19 16:00 97.6 87 19 115/72 (86) 98 07/18/19 12:42 134/70 07/18/19 12:00 97.3 85 19 113/68 (83) 96 07/18/19 09:13 72 139/79 07/18/19 09:12 139/79 07/18/19 09:11 139/79 07/18/19 09:00 Nasal Cannula 2.0 07/18/19 08:05 106/73 07/18/19 08:00 98.4 73 19 149/72 (97) 95 07/18/19 04:00 98.7 58 20 106/73 (84) 98 07/18/19 00:57 160/65 07/18/19 00:00 99.0 55 20 160/62 (94) 95 Intake and Output 07/17/19 07/18/19 19:00 07:00 Intake Total 945 ml 750 ml Output Total 100 ml 450 ml Balance 845 ml 300 ml Free Water 230 ml 100 ml Tube Feeding 715 ml 650 ml Output Urine Total 100 ml 450 ml Laboratory Tests 07/18/19 05:00: White Blood Count 12.2H, Red Blood Count 4.76, Hemoglobin 14.8, Hematocrit 42.5 , Mean Corpuscular Volume 89, Mean Corpuscular Hemoglobin 31.1H, Mean Corpuscular Hemoglobin Concent 34.8, Red Cell Distribution Width 11.5L, Platelet Count 301, Mean Platelet Volume 6.5, Neutrophils (%) (Auto) 64.4, Lymphocytes (%) (Auto) 28.3, Monocytes (%) (Auto) 4.7, Eosinophils (%) (Auto) 1.8, Basophils (%) (Auto) 0.8 Height (Feet): 5 Height (Inches): 8.00 Weight (Pounds): 146 Objective Elderly man NCAT supple Coarse BS RR abd soft no edema Barb Lee MD Jul 18, 2019 21:27
[2019-07-19] VITALS: BP 128/51
[2019-07-19 04:00] VITALS: BP 126/71
[2019-07-19] MEDS: NovoLOG Insulin Flexpen SUBQ SCH ×4 (05:04→23:42)
[2019-07-19] MEDS: Nitroglycerin 2% oint pkt TOPIC SCH ×4 (05:08→23:45)
--- NOTE | 2019-07-19 07:37 | NUR ---
HAND-OFF: Report given to Marilynn BADILLO. Patient in stable condition.
[2019-07-19 08:00] VITALS: BP 118/71
--- NOTE | 2019-07-19 08:00 | NUR ---
NURSE NOTES: ASLEEP. IN NO APPARENT DISTRESS.
[2019-07-19] MEDS: Minoxidil 10mg tab ORAL SCH ×2 (09:34→17:16)
[2019-07-19] MEDS: metFORMIN 500mg tab ORAL SCH ×2 (09:34→17:16)
[2019-07-19] MEDS: Lisinopril 20mg tab ORAL SCH ×2 (09:35→20:59)
[2019-07-19 11:48] VITALS: BP 122/68
--- NOTE | 2019-07-19 11:49 | Infectious Diseases Prog Note ---
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 Aphasia R hemiplegia Leukocytosis RECOMMENDATION: Observe off antibiotic Subjective ROS Limited/Unobtainable: Yes Constitutional: Denies: fever Neurologic: Reports: confusion, other - on restraint Allergies: Coded Allergies: UNABLE TO ASSESS (Unverified , 06/18/19) Objective Vital Signs Last 24 Hour Vital Signs Date Time Temp Pulse Resp B/P (MAP) Pulse Ox O2 Delivery O2 Flow Rate FiO2 07/19/19 09:35 118/71 07/19/19 09:35 73 118/71 07/19/19 09:34 118/71 07/19/19 09:00 Nasal Cannula 2.0 07/19/19 08:00 98.1 73 18 118/71 (87) 95 07/19/19 05:08 126/71 07/19/19 04:00 98.0 81 18 126/71 (89) 94 07/19/19 00:00 98.9 52 19 128/51 (76) 96 07/18/19 23:59 128/51 07/18/19 21:00 Nasal Cannula 2.0 07/18/19 20:43 125/50 07/18/19 20:04 115/72 07/18/19 20:00 98.7 49 18 125/50 (75) 95 07/18/19 18:00 115/72 07/18/19 16:00 97.6 87 19 115/72 (86) 98 07/18/19 12:42 134/70 07/18/19 12:00 97.3 85 19 113/68 (83) 96 Height (Feet): 5 Height (Inches): 8.00 Weight (Pounds): 146 General Appearance: no acute distress HEENT: mucous membranes moist Respiratory/Chest: lungs clear Cardiovascular: normal rate Abdomen: soft, non tender Extremities: no edema Neurologic/Psychiatric: disoriented, aphasia Current Medications Medications (Trade) Dose Ordered Sig/Leonor Route PRN Reason Start Time Stop Time Status Last Admin Dose Admin Acetaminophen (Tylenol) 650 mg Q4H PRN NG Mild Pain/Temp > 100.5 07/05/19 05:48 07/28/19 05:47 07/17/19 18:48 Amlodipine Besylate (Norvasc) 10 mg DAILY NG 07/05/19 09:00 07/25/19 13:29 07/19/19 09:35 Aspirin (ASA) 325 mg DAILY NG 07/05/19 09:00 07/20/19 21:44 07/19/19 09:34 Insulin Aspart (NovoLOG) No Dose Q6HR SUBQ 07/05/19 06:00 08/03/19 17:59 07/19/19 05:04 Lisinopril (PriniviL) 20 mg Q12HR ORAL 07/18/19 21:00 08/17/19 20:59 07/19/19 09:35 Loperamide HCl (Imodium) 2 mg Q6H PRN NG Diarrhea 07/05/19 05:50 07/29/19 05:49 07/05/19 16:28 Magnesium Hydroxide (Mom) 30 ml HSPRN PRN NG Constipation 07/05/19 05:51 07/21/19 05:50 07/15/19 08:50 Metformin HCl (Glucophage) 500 mg BID ORAL 07/15/19 15:00 08/14/19 14:59 07/19/19 09:34 Minoxidil (Loniten) 2.5 mg Q4H PRN ORAL bp over 160 syst 07/05/19 07:45 08/01/19 11:44 07/15/19 20:18 Minoxidil (Loniten) 10 mg TWICE A DAY ORAL 07/11/19 18:00 08/06/19 17:59 07/19/19 09:34 Nitroglycerin (Nitro-Bid) 1 inch Q6HR TOPIC 07/05/19 06:00 07/31/19 20:59 07/19/19 05:08 Olanzapine (ZyPREXA) 5 mg BEDTIME ORAL 07/05/19 21:00 07/24/19 20:59 07/18/19 20:43 Ondansetron HCl (Zofran) 4 mg Q6H PRN IVP Nausea & Vomiting 07/05/19 06:15 07/21/19 18:14 Bob Gilmore MD Jul 19, 2019 11:49
--- NOTE | 2019-07-19 13:46 | NUR ---
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 ENCEPHALOMALACIA . DM . ARF . CELLULITIS OF LEFT HAND . 96.3 77 18 122/68 94% ON 2L NC IS: ZYPREXA PO QHS LONITEN PO BID LONITEN Q4HR/PRN LISINOPRIL PO BID NOVOLOG SQ Q6HR NORVASC NG QD ASA NG QD NITRO-BID TP Q6HR METFORMIN PO BID \:MED/SURG STATUS PLAN: PATIENT PARTICIPATION MONITOR OFF IV ABX MEDICAL PRESUMPTIVE NEURO CHECKS MONITOR OFF RESTRAINTS
[2019-07-19 16:00] VITALS: BP 124/78
--- NOTE | 2019-07-19 17:14 | Cardiology Progress Note ---
Assessment/Plan Assessment/Plan 1. Respiratory insufficiency. 2. Cerebrovascular accident. 3. Premature ventricular complexes. 4. Interstitial infiltrates. 5. Altered mentation. 6. CVA. 7. Hypernatremia. 8. Renal insufficiency. 9. NSVT s/p peg ef 65-70 tele sinus on bp meds bp seem controlled lab noted bu increased not on diuretic not on steroids Subjective ROS Limited/Unobtainable: Yes Subjective altered mentation Objective Last 24 Hour Vital Signs Date Time Temp Pulse Resp B/P (MAP) Pulse Ox O2 Delivery O2 Flow Rate FiO2 07/19/19 16:00 97.5 83 18 124/78 (93) 94 07/19/19 12:26 122/68 07/19/19 11:48 96.3 77 18 122/68 (86) 94 07/19/19 09:35 118/71 07/19/19 09:35 73 118/71 07/19/19 09:34 118/71 07/19/19 09:00 Nasal Cannula 2.0 07/19/19 08:00 98.1 73 18 118/71 (87) 95 07/19/19 05:08 126/71 07/19/19 04:00 98.0 81 18 126/71 (89) 94 07/19/19 00:00 98.9 52 19 128/51 (76) 96 07/18/19 23:59 128/51 07/18/19 21:00 Nasal Cannula 2.0 07/18/19 20:43 125/50 07/18/19 20:04 115/72 07/18/19 20:00 98.7 49 18 125/50 (75) 95 07/18/19 18:00 115/72 General Appearance: no apparent distress Neck: supple Cardiovascular: normal rate Respiratory/Chest: lungs clear - anteriroly Abdomen: normal bowel sounds, non tender, soft Extremities: no swelling Intake and Output 07/18/19 07/19/19 19:00 07:00 Intake Total 130 ml Output Total 1600 ml 600 ml Balance -1600 ml -470 ml Tube Feeding 130 ml Output Urine Total 1600 ml 600 ml Chris Melgar MD Jul 19, 2019 17:14
--- NOTE | 2019-07-19 17:46 | General Progress Note ---
Assessment/Plan Status: stable, unchanged Assessment/Plan: Assessment - Acute CVA - AMS - Dysphagia - arrhythmia - free water deficit - poor prognosis Recommendations - IVF - Abx - monitor labs - follow BM pattern - GT feeds - vital AF - rate per RD rec Subjective Allergies: Coded Allergies: UNABLE TO ASSESS (Unverified , 06/18/19) Subjective above noted tolerating TF arousable calm non-interactive Objective Last 24 Hour Vital Signs Date Time Temp Pulse Resp B/P (MAP) Pulse Ox O2 Delivery O2 Flow Rate FiO2 07/19/19 17:17 124/78 07/19/19 17:16 124/78 07/19/19 16:00 97.5 83 18 124/78 (93) 94 07/19/19 12:26 122/68 07/19/19 11:48 96.3 77 18 122/68 (86) 94 07/19/19 09:35 118/71 07/19/19 09:35 73 118/71 07/19/19 09:34 118/71 07/19/19 09:00 Nasal Cannula 2.0 07/19/19 08:00 98.1 73 18 118/71 (87) 95 07/19/19 07:50 94 Nasal Cannula 2.0 28 07/19/19 05:08 126/71 07/19/19 04:00 98.0 81 18 126/71 (89) 94 07/19/19 00:00 98.9 52 19 128/51 (76) 96 07/18/19 23:59 128/51 07/18/19 21:00 Nasal Cannula 2.0 07/18/19 20:43 125/50 07/18/19 20:04 115/72 07/18/19 20:00 98.7 49 18 125/50 (75) 95 07/18/19 18:00 115/72 Intake and Output 07/18/19 07/19/19 19:00 07:00 Intake Total 130 ml Output Total 1600 ml 600 ml Balance -1600 ml -470 ml Tube Feeding 130 ml Output Urine Total 1600 ml 600 ml Height (Feet): 5 Height (Inches): 8.00 Weight (Pounds): 146 Objective Elderly man NCAT supple Coarse BS RR abd soft no edema Barb Lee MD Jul 19, 2019 17:46
--- NOTE | 2019-07-19 19:00 | NUR ---
NURSE NOTES: condition stable. in no distress
--- NOTE | 2019-07-19 19:10 | NUR ---
HAND-OFF: Report given to AN RN.
--- NOTE | 2019-07-19 19:13 | NUR ---
NURSE NOTES: Received report from Marilynn BADILLO. Rounding is done with outgoing nurse. Patient is nonverbal with spontaneous eye opening. No respiratory distress or SOB ON NC 2L/min noted at this time. IV site is intact and patient. Condom cath is in place and draining with clear yellow urine. G-tube intact and patent with Vital AF 1.2 running at 65 cc/hr. restraint on Lt.hand and checked circulation. Bed is on alarm, locked, lowest position. Call light within reach. Will continue to monitor.
[2019-07-19 20:00] VITALS: BP 123/72
[2019-07-19] MEDS ORDERED: NS Irrig 1000ml ONE (20:48)
--- NOTE | 2019-07-19 22:02 | General Progress Note ---
Assessment/Plan Problem List: (1) Cellulitis of right hand ICD Codes: L03.113 - Cellulitis of right upper limb SNOMED: 49224886 (2) Altered level of consciousness ICD Codes: R40.4 - Transient alteration of awareness SNOMED: 4904350 (3) Sepsis ICD Codes: A41.9 - Sepsis, unspecified organism SNOMED: 18341458 Qualifiers: Qualified Codes: A41.9 - Sepsis, unspecified organism (4) Left middle cerebral artery stroke ICD Codes: I63.512 - Cerebral infarction due to unspecified occlusion or stenosis of left middle cerebral artery SNOMED: 023704594 (5) Left carotid artery occlusion ICD Codes: I65.22 - Occlusion and stenosis of left carotid artery SNOMED: 841721834753460 (6) Hypernatremia Assessment & Plan: better ICD Codes: E87.0 - Hyperosmolality and hypernatremia SNOMED: 639024059 (7) Hypokalemia Assessment & Plan: better ICD Codes: E87.6 - Hypokalemia SNOMED: 03845321 (8) DM (diabetes mellitus) ICD Codes: E11.9 - Type 2 diabetes mellitus without complications SNOMED: 87575194 (9) ARF (acute renal failure) Assessment & Plan: ok ICD Codes: N17.9 - Acute kidney failure, unspecified SNOMED: 73001755 (10) Hypertension ICD Codes: I10 - Essential (primary) hypertension SNOMED: 71027404 (11) Aspiration pneumonia ICD Codes: J69.0 - Pneumonitis due to inhalation of food and vomit SNOMED: 358945533 Status: stable, unchanged Assessment/Plan: continue ASA TF SSI cont Lisinopril cont Metformin Subjective Allergies: Coded Allergies: UNABLE TO ASSESS (Unverified , 06/18/19) Subjective all noted Objective Last 24 Hour Vital Signs Date Time Temp Pulse Resp B/P (MAP) Pulse Ox O2 Delivery O2 Flow Rate FiO2 07/19/19 21:00 Nasal Cannula 2.0 07/19/19 20:59 123/72 07/19/19 20:00 97.5 86 20 123/72 (89) 94 07/19/19 17:17 124/78 07/19/19 17:16 124/78 07/19/19 16:00 97.5 83 18 124/78 (93) 94 07/19/19 12:26 122/68 07/19/19 11:48 96.3 77 18 122/68 (86) 94 07/19/19 09:35 118/71 07/19/19 09:35 73 118/71 07/19/19 09:34 118/71 07/19/19 09:00 Nasal Cannula 2.0 07/19/19 08:00 98.1 73 18 118/71 (87) 95 07/19/19 07:50 94 Nasal Cannula 2.0 28 07/19/19 05:08 126/71 07/19/19 04:00 98.0 81 18 126/71 (89) 94 07/19/19 00:00 98.9 52 19 128/51 (76) 96 07/18/19 23:59 128/51 Intake and Output 07/18/19 07/19/19 18:59 06:59 Intake Total 65 ml Output Total 1600 ml 600 ml Balance -1600 ml -535 ml Tube Feeding 65 ml Output Urine Total 1600 ml 600 ml Height (Feet): 5 Height (Inches): 8.00 Weight (Pounds): 146 Kaz Gilmore MD Jul 19, 2019 22:02
[2019-07-20] VITALS: BP 106/66
[2019-07-20 04:00] VITALS: BP 138/69
[2019-07-20] MEDS: Nitroglycerin 2% oint pkt TOPIC SCH ×3 (05:09→18:15)
[2019-07-20] MEDS: NovoLOG Insulin Flexpen SUBQ SCH ×3 (05:09→16:45)
--- NOTE | 2019-07-20 07:15 | NUR ---
HAND-OFF: Report given to Marilynn BADILLO. Patient in stable condition.
--- NOTE | 2019-07-20 07:30 | NUR ---
NURSE NOTES: ASLEEP. IN NO APPARENT DISTRES.
[2019-07-20 08:00] VITALS: BP 105/73
[2019-07-20] MEDS: metFORMIN 500mg tab ORAL SCH ×2 (08:21→18:15)
[2019-07-20] MEDS: Minoxidil 10mg tab ORAL SCH ×2 (08:27→18:16)
[2019-07-20] MEDS: Lisinopril 20mg tab ORAL SCH ×2 (08:27→20:08)
[2019-07-20 12:00] VITALS: BP 151/72
--- NOTE | 2019-07-20 12:50 | Infectious Diseases Prog Note ---
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 Aphasia R hemiplegia Leukocytosis RECOMMENDATION: Observe off antibiotic F/U CBC Subjective ROS Limited/Unobtainable: Yes Constitutional: Denies: fever Allergies: Coded Allergies: UNABLE TO ASSESS (Unverified , 06/18/19) Objective Vital Signs Last 24 Hour Vital Signs Date Time Temp Pulse Resp B/P (MAP) Pulse Ox O2 Delivery O2 Flow Rate FiO2 07/20/19 12:28 151/72 07/20/19 09:37 Nasal Cannula 2.0 07/20/19 08:27 105/73 07/20/19 08:27 105/73 07/20/19 08:26 95 105/73 07/20/19 08:00 97.8 95 18 105/73 (84) 95 07/20/19 05:09 138/69 07/20/19 04:00 97.6 86 19 138/69 (92) 94 07/20/19 00:00 98.1 81 19 106/66 (79) 95 07/19/19 23:45 106/66 07/19/19 21:00 Nasal Cannula 2.0 07/19/19 20:59 123/72 07/19/19 20:00 97.5 86 20 123/72 (89) 94 07/19/19 17:17 124/78 07/19/19 17:16 124/78 07/19/19 16:00 97.5 83 18 124/78 (93) 94 Height (Feet): 5 Height (Inches): 8.00 Weight (Pounds): 142 General Appearance: no acute distress HEENT: mucous membranes moist Respiratory/Chest: lungs clear Cardiovascular: normal rate Abdomen: soft, non tender Extremities: no edema Neurologic/Psychiatric: aphasia, other - R hemiplegia Current Medications Medications (Trade) Dose Ordered Sig/Leonor Route PRN Reason Start Time Stop Time Status Last Admin Dose Admin Acetaminophen (Tylenol) 650 mg Q4H PRN NG Mild Pain/Temp > 100.5 07/05/19 05:48 07/28/19 05:47 07/17/19 18:48 Amlodipine Besylate (Norvasc) 10 mg DAILY NG 07/05/19 09:00 07/25/19 13:29 07/19/19 09:35 Aspirin (ASA) 325 mg DAILY NG 07/05/19 09:00 07/20/19 21:44 07/20/19 08:21 Insulin Aspart (NovoLOG) No Dose Q6HR SUBQ 07/05/19 06:00 08/03/19 17:59 07/20/19 11:35 Lisinopril (PriniviL) 20 mg Q12HR ORAL 07/18/19 21:00 08/17/19 20:59 07/19/19 20:59 Loperamide HCl (Imodium) 2 mg Q6H PRN NG Diarrhea 07/05/19 05:50 07/29/19 05:49 07/05/19 16:28 Magnesium Hydroxide (Mom) 30 ml HSPRN PRN NG Constipation 07/05/19 05:51 07/21/19 05:50 07/15/19 08:50 Metformin HCl (Glucophage) 500 mg BID ORAL 07/15/19 15:00 08/14/19 14:59 07/20/19 08:21 Minoxidil (Loniten) 2.5 mg Q4H PRN ORAL bp over 160 syst 07/05/19 07:45 08/01/19 11:44 07/15/19 20:18 Minoxidil (Loniten) 10 mg TWICE A DAY ORAL 07/11/19 18:00 08/06/19 17:59 07/19/19 17:16 Nitroglycerin (Nitro-Bid) 1 inch Q6HR TOPIC 07/05/19 06:00 07/31/19 20:59 07/20/19 12:28 Olanzapine (ZyPREXA) 5 mg BEDTIME ORAL 07/05/19 21:00 07/24/19 20:59 07/19/19 20:59 Ondansetron HCl (Zofran) 4 mg Q6H PRN IVP Nausea & Vomiting 07/05/19 06:15 07/21/19 18:14 Bob Gilmore MD Jul 20, 2019 12:49
--- NOTE | 2019-07-20 14:28 | NUR ---
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 ENCEPHALOMALACIA . DM . ARF . CELLULITIS OF LEFT HAND . 97.8 95 18 105/73 95% ON 2L NC IS: ZYPREXA PO QHS LONITEN PO BID LONITEN Q4HR/PRN LISINOPRIL PO BID NOVOLOG SQ Q6HR NORVASC NG QD LISINOPRIL PO BID ASA NG QD NITRO-BID TP Q6HR METFORMIN PO BID \:MED/SURG STATUS PLAN: CBC IN AM ACTIVELY ENCOURAGE PATIENT PARTICIPATION MONITOR OFF IV ABX NEURO CHECKS MONITOR OFF RESTRAINTS MEDICAL PRESUMPTIVE PLACEMENT ONCE MEDICAL ESTABLISHED
[2019-07-20 16:00] VITALS: BP 130/81
--- NOTE | 2019-07-20 19:00 | NUR ---
NURSE NOTES: SLEEPING COMFORTABLY. IN NO DISTRESS
--- NOTE | 2019-07-20 19:09 | NUR ---
HAND-OFF: Report given to OH RN.
--- NOTE | 2019-07-20 19:30 | NUR ---
NURSE NOTES: Receive a report from JUSTINO Subramanian. Pt is in a sleep without acute distress. No respiratory distress noted. On O2 2L NC. Intermittent aroused from sleep but still non-verbal and no expression or responses by questions. Reapply condom catheter. Running G-tube feeding without aspiration and kept GONSALVES up. On restraints on left hand not to pulling out g-tube. Skin intact and warm to touch. Opticform kept on sacrum with changing position q 2hr. On SCDs bilateral. Will continue to monitor.
[2019-07-20 20:00] VITALS: BP 136/80
--- NOTE | 2019-07-20 20:32 | General Progress Note ---
Assessment/Plan Status: stable, unchanged Assessment/Plan: Assessment - Acute CVA - AMS - Dysphagia - arrhythmia - free water deficit - poor prognosis Recommendations - IVF - Abx - monitor labs - follow BM pattern - GT feeds - vital AF - rate per RD rec Subjective Allergies: Coded Allergies: UNABLE TO ASSESS (Unverified , 06/18/19) Subjective above noted tolerating TF arousable calm non-interactive Objective Last 24 Hour Vital Signs Date Time Temp Pulse Resp B/P (MAP) Pulse Ox O2 Delivery O2 Flow Rate FiO2 07/20/19 20:08 136/80 07/20/19 18:16 150/81 07/20/19 18:15 150/81 07/20/19 16:00 98.6 79 20 130/81 (97) 97 07/20/19 12:28 151/72 07/20/19 12:00 97.5 76 20 151/72 (98) 97 07/20/19 09:37 Nasal Cannula 2.0 07/20/19 08:27 105/73 07/20/19 08:27 105/73 07/20/19 08:26 95 105/73 07/20/19 08:00 97.8 95 18 105/73 (84) 95 07/20/19 05:09 138/69 07/20/19 04:00 97.6 86 19 138/69 (92) 94 07/20/19 00:00 98.1 81 19 106/66 (79) 95 07/19/19 23:45 106/66 07/19/19 21:00 Nasal Cannula 2.0 07/19/19 20:59 123/72 Intake and Output 07/19/19 07/20/19 19:00 07:00 Intake Total 1080 ml 280 ml Output Total 625 ml 650 ml Balance 455 ml -370 ml Free Water 300 ml 150 ml Tube Feeding 780 ml 130 ml Output Urine Total 625 ml 650 ml Height (Feet): 5 Height (Inches): 8.00 Weight (Pounds): 142 Objective Elderly man NCAT supple Coarse BS RR abd soft no edema Barb Lee MD Jul 20, 2019 20:31
--- NOTE | 2019-07-20 22:54 | General Progress Note ---
Assessment/Plan Problem List: (1) Cellulitis of right hand ICD Codes: L03.113 - Cellulitis of right upper limb SNOMED: 16976280 (2) Altered level of consciousness ICD Codes: R40.4 - Transient alteration of awareness SNOMED: 1850703 (3) Sepsis ICD Codes: A41.9 - Sepsis, unspecified organism SNOMED: 68832962 Qualifiers: Qualified Codes: A41.9 - Sepsis, unspecified organism (4) Left middle cerebral artery stroke ICD Codes: I63.512 - Cerebral infarction due to unspecified occlusion or stenosis of left middle cerebral artery SNOMED: 363123775 (5) Left carotid artery occlusion ICD Codes: I65.22 - Occlusion and stenosis of left carotid artery SNOMED: 089327730286395 (6) Hypernatremia Assessment & Plan: better ICD Codes: E87.0 - Hyperosmolality and hypernatremia SNOMED: 336437560 (7) Hypokalemia Assessment & Plan: better ICD Codes: E87.6 - Hypokalemia SNOMED: 49642456 (8) DM (diabetes mellitus) ICD Codes: E11.9 - Type 2 diabetes mellitus without complications SNOMED: 87804024 (9) ARF (acute renal failure) Assessment & Plan: ok ICD Codes: N17.9 - Acute kidney failure, unspecified SNOMED: 30581843 (10) Hypertension ICD Codes: I10 - Essential (primary) hypertension SNOMED: 77392614 (11) Aspiration pneumonia ICD Codes: J69.0 - Pneumonitis due to inhalation of food and vomit SNOMED: 636179846 Status: stable, unchanged Assessment/Plan: continue ASA TF SSI cont Lisinopril cont Metformin Subjective Allergies: Coded Allergies: UNABLE TO ASSESS (Unverified , 06/18/19) Subjective all noted Objective Last 24 Hour Vital Signs Date Time Temp Pulse Resp B/P (MAP) Pulse Ox O2 Delivery O2 Flow Rate FiO2 07/20/19 20:08 136/80 07/20/19 18:16 150/81 07/20/19 18:15 150/81 07/20/19 16:00 98.6 79 20 130/81 (97) 97 07/20/19 12:28 151/72 07/20/19 12:00 97.5 76 20 151/72 (98) 97 07/20/19 09:37 Nasal Cannula 2.0 07/20/19 08:27 105/73 07/20/19 08:27 105/73 07/20/19 08:26 95 105/73 07/20/19 08:00 97.8 95 18 105/73 (84) 95 07/20/19 05:09 138/69 07/20/19 04:00 97.6 86 19 138/69 (92) 94 07/20/19 00:00 98.1 81 19 106/66 (79) 95 07/19/19 23:45 106/66 Intake and Output 07/19/19 07/20/19 19:00 07:00 Intake Total 1080 ml 280 ml Output Total 625 ml 650 ml Balance 455 ml -370 ml Free Water 300 ml 150 ml Tube Feeding 780 ml 130 ml Output Urine Total 625 ml 650 ml Height (Feet): 5 Height (Inches): 8.00 Weight (Pounds): 142 Cardiovascular: normal rate Respiratory/Chest: lungs clear Abdomen: soft Edema: no edema noted Generalized Kaz Gilmore MD Jul 20, 2019 22:54
[2019-07-21] VITALS: BP 138/95
[2019-07-21] MEDS: Nitroglycerin 2% oint pkt TOPIC SCH ×4 (00:32→18:04)
[2019-07-21] MEDS: NovoLOG Insulin Flexpen SUBQ SCH ×4 (00:33→18:05)
[2019-07-21 04:00] VITALS: BP 129/78
[2019-07-21 05:48] LABS: BASOPHILS % (AUTO) 0.6 % (0.0-2.0); EOSINOPHILS % (AUTO) 2.7 % (0.0-3.0); HEMATOCRIT 41.2 % (42.0-52.0); HEMOGLOBIN 14.7 G/DL (14.2-18.0); LYMPHOCYTES % (AUTO) 22.8 % (20.0-45.0); MEAN CORPUSCULAR VOLUME 90 FL (80-99); MONOCYTES % (AUTO) 4.5 % (1.0-10.0); NEUTROPHILS % (AUTO) 69.4 % (45.0-75.0); PLATELET COUNT 231 K/UL (150-450); RED BLOOD COUNT 4.59 M/UL (4.70-6.10); RED CELL DISTRIBUTION WIDTH 11.7 % (11.6-14.8); WHITE BLOOD COUNT 13.8 K/UL (4.8-10.8)
--- NOTE | 2019-07-21 06:00 | NUR ---
NURSE NOTES: No acute distress noted. No chilling noted. Lab will be followed up. Will continue to monitor.
--- NOTE | 2019-07-21 07:40 | NUR ---
HAND-OFF: Report given to Trina/Jacky Scott. Round is done.
--- NOTE | 2019-07-21 07:45 | NUR ---
NURSE NOTES: Received report from o RN. Patient is awake, no acute distress noted, non-verbal, HOB elevated to 45 degrees. On continuous g-tube feeding per order, left hand IV intact, patent. SCD's on. Safety measures in place. Side rails upx3, bed low and locked, call light within reach, bed alarm armed.
[2019-07-21 08:00] VITALS: BP 138/84
[2019-07-21] MEDS: Minoxidil 10mg tab ORAL SCH ×2 (09:47→18:04)
[2019-07-21] MEDS: metFORMIN 500mg tab ORAL SCH ×2 (09:47→18:04)
[2019-07-21] MEDS: Lisinopril 20mg tab ORAL SCH ×2 (09:47→21:00)
[2019-07-21] MEDS ORDERED: Sorbitol Solution UD 30ml GT ONE (11:00)
--- NOTE | 2019-07-21 11:28 | General Progress Note ---
Assessment/Plan Status: stable, unchanged Assessment/Plan: Assessment - Acute CVA - AMS - Dysphagia - arrhythmia - free water deficit - poor prognosis Recommendations - IVF - Abx - monitor labs - follow BM pattern - GT feeds - vital AF - rate per RD rec Subjective Allergies: Coded Allergies: UNABLE TO ASSESS (Unverified , 06/18/19) Subjective above noted tolerating TF arousable calm non-interactive Objective Last 24 Hour Vital Signs Date Time Temp Pulse Resp B/P (MAP) Pulse Ox O2 Delivery O2 Flow Rate FiO2 07/21/19 09:47 138/84 07/21/19 09:47 138/84 07/21/19 09:46 84 138/84 07/21/19 08:00 97.3 84 15 138/84 (102) 94 07/21/19 06:24 129/78 07/21/19 04:00 97.8 87 20 129/78 (95) 93 07/21/19 00:32 138/95 07/21/19 00:00 97.6 81 20 138/95 (109) 94 07/20/19 21:00 Nasal Cannula 2.0 07/20/19 20:08 136/80 07/20/19 20:00 98.6 83 20 136/80 (98) 95 07/20/19 18:16 150/81 07/20/19 18:15 150/81 07/20/19 16:00 98.6 79 20 130/81 (97) 97 07/20/19 12:28 151/72 07/20/19 12:00 97.5 76 20 151/72 (98) 97 Intake and Output 07/20/19 07/21/19 19:00 07:00 Intake Total 1115 ml 195 ml Output Total 600 ml 500 ml Balance 515 ml -305 ml Free Water 400 ml Tube Feeding 715 ml 195 ml Output Urine Total 600 ml 500 ml # Voids 2 Laboratory Tests 07/21/19 04:44: White Blood Count 13.8H, Red Blood Count 4.59L, Hemoglobin 14.7, Hematocrit 41.2L, Mean Corpuscular Volume 90, Mean Corpuscular Hemoglobin 31.9H, Mean Corpuscular Hemoglobin Concent 35.6, Red Cell Distribution Width 11.7, Platelet Count 231, Mean Platelet Volume 6.8, Neutrophils (%) (Auto) 69.4, Lymphocytes (% ) (Auto) 22.8, Monocytes (%) (Auto) 4.5, Eosinophils (%) (Auto) 2.7, Basophils ( %) (Auto) 0.6 Height (Feet): 5 Height (Inches): 8.00 Weight (Pounds): 142 Objective Elderly man NCAT supple Coarse BS RR abd soft no edema Barb Lee MD Jul 21, 2019 11:28
[2019-07-21] MEDS ORDERED: Sorbitol Solution UD 30ml GT SCH (11:34)
[2019-07-21 12:00] VITALS: BP 131/77
--- NOTE | 2019-07-21 13:26 | General Progress Note ---
Assessment/Plan Problem List: (1) Cellulitis of right hand ICD Codes: L03.113 - Cellulitis of right upper limb SNOMED: 79162128 (2) Altered level of consciousness ICD Codes: R40.4 - Transient alteration of awareness SNOMED: 9234015 (3) Sepsis ICD Codes: A41.9 - Sepsis, unspecified organism SNOMED: 32989717 Qualifiers: Qualified Codes: A41.9 - Sepsis, unspecified organism (4) Left middle cerebral artery stroke ICD Codes: I63.512 - Cerebral infarction due to unspecified occlusion or stenosis of left middle cerebral artery SNOMED: 045967152 (5) Left carotid artery occlusion ICD Codes: I65.22 - Occlusion and stenosis of left carotid artery SNOMED: 377353219674748 (6) Hypernatremia Assessment & Plan: better ICD Codes: E87.0 - Hyperosmolality and hypernatremia SNOMED: 734470980 (7) Hypokalemia Assessment & Plan: better ICD Codes: E87.6 - Hypokalemia SNOMED: 12934459 (8) DM (diabetes mellitus) ICD Codes: E11.9 - Type 2 diabetes mellitus without complications SNOMED: 81775773 (9) ARF (acute renal failure) Assessment & Plan: ok ICD Codes: N17.9 - Acute kidney failure, unspecified SNOMED: 76508893 (10) Hypertension ICD Codes: I10 - Essential (primary) hypertension SNOMED: 03360305 (11) Aspiration pneumonia ICD Codes: J69.0 - Pneumonitis due to inhalation of food and vomit SNOMED: 478274297 Status: stable, unchanged Assessment/Plan: continue ASA TF SSI cont Lisinopril cont Metformin off abxs Subjective Allergies: Coded Allergies: UNABLE TO ASSESS (Unverified , 06/18/19) Subjective all noted Objective Last 24 Hour Vital Signs Date Time Temp Pulse Resp B/P (MAP) Pulse Ox O2 Delivery O2 Flow Rate FiO2 07/21/19 12:51 131/77 07/21/19 12:00 98.3 101 18 131/77 (95) 90 07/21/19 09:47 138/84 07/21/19 09:47 138/84 07/21/19 09:46 84 138/84 07/21/19 09:00 Nasal Cannula 2.0 2/6/20 08:00 97.3 84 15 138/84 (102) 94 07/21/19 06:24 129/78 07/21/19 04:00 97.8 87 20 129/78 (95) 93 07/21/19 00:32 138/95 07/21/19 00:00 97.6 81 20 138/95 (109) 94 07/20/19 21:00 Nasal Cannula 2.0 07/20/19 20:08 136/80 07/20/19 20:00 98.6 83 20 136/80 (98) 95 07/20/19 18:16 150/81 07/20/19 18:15 150/81 07/20/19 16:00 98.6 79 20 130/81 (97) 97 Intake and Output 07/20/19 07/21/19 18:59 06:59 Intake Total 1180 ml 130 ml Output Total 600 ml 500 ml Balance 580 ml -370 ml Free Water 400 ml Tube Feeding 780 ml 130 ml Output Urine Total 600 ml 500 ml # Voids 2 Laboratory Tests 07/21/19 04:44: White Blood Count 13.8H, Red Blood Count 4.59L, Hemoglobin 14.7, Hematocrit 41.2L, Mean Corpuscular Volume 90, Mean Corpuscular Hemoglobin 31.9H, Mean Corpuscular Hemoglobin Concent 35.6, Red Cell Distribution Width 11.7, Platelet Count 231, Mean Platelet Volume 6.8, Neutrophils (%) (Auto) 69.4, Lymphocytes (% ) (Auto) 22.8, Monocytes (%) (Auto) 4.5, Eosinophils (%) (Auto) 2.7, Basophils ( %) (Auto) 0.6 Height (Feet): 5 Height (Inches): 8.00 Weight (Pounds): 142 Cardiovascular: normal rate, regular rhythm Respiratory/Chest: lungs clear Edema: no edema noted Generalized Kaz Gilmore MD Jul 21, 2019 13:26
--- NOTE | 2019-07-21 13:41 | Infectious Diseases Prog Note ---
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 Aphasia R hemiplegia Leukocytosis RECOMMENDATION: Observe off antibiotic F/U CBC Subjective ROS Limited/Unobtainable: Yes Constitutional: Denies: fever Allergies: Coded Allergies: UNABLE TO ASSESS (Unverified , 06/18/19) Objective Vital Signs Last 24 Hour Vital Signs Date Time Temp Pulse Resp B/P (MAP) Pulse Ox O2 Delivery O2 Flow Rate FiO2 07/21/19 12:51 131/77 07/21/19 12:00 98.3 101 18 131/77 (95) 90 07/21/19 09:47 138/84 07/21/19 09:47 138/84 07/21/19 09:46 84 138/84 07/21/19 09:00 Nasal Cannula 2.0 07/21/19 08:00 97.3 84 15 138/84 (102) 94 07/21/19 06:24 129/78 07/21/19 04:00 97.8 87 20 129/78 (95) 93 07/21/19 00:32 138/95 07/21/19 00:00 97.6 81 20 138/95 (109) 94 07/20/19 21:00 Nasal Cannula 2.0 07/20/19 20:08 136/80 07/20/19 20:00 98.6 83 20 136/80 (98) 95 07/20/19 18:16 150/81 07/20/19 18:15 150/81 07/20/19 16:00 98.6 79 20 130/81 (97) 97 Height (Feet): 5 Height (Inches): 8.00 Weight (Pounds): 142 General Appearance: no acute distress HEENT: mucous membranes moist Respiratory/Chest: lungs clear Cardiovascular: normal rate Abdomen: soft, non tender, other - GT feeding Extremities: no edema Neurologic/Psychiatric: aphasia, other - R hemiplegia Laboratory Tests Test 07/21/19 04:44 White Blood Count 13.8 K/UL (4.8-10.8) H Red Blood Count 4.59 M/UL (4.70-6.10) L Hemoglobin 14.7 G/DL (14.2-18.0) Hematocrit 41.2 % (42.0-52.0) L Mean Corpuscular Volume 90 FL (80-99) Mean Corpuscular Hemoglobin 31.9 PG (27.0-31.0) H Mean Corpuscular Hemoglobin Concent 35.6 G/DL (32.0-36.0) Red Cell Distribution Width 11.7 % (11.6-14.8) Platelet Count 231 K/UL (150-450) Mean Platelet Volume 6.8 FL (6.5-10.1) Neutrophils (%) (Auto) 69.4 % (45.0-75.0) Lymphocytes (%) (Auto) 22.8 % (20.0-45.0) Monocytes (%) (Auto) 4.5 % (1.0-10.0) Eosinophils (%) (Auto) 2.7 % (0.0-3.0) Basophils (%) (Auto) 0.6 % (0.0-2.0) Current Medications Medications (Trade) Dose Ordered Sig/Leonor Route PRN Reason Start Time Stop Time Status Last Admin Dose Admin Acetaminophen (Tylenol) 650 mg Q4H PRN NG Mild Pain/Temp > 100.5 07/05/19 05:48 07/28/19 05:47 07/17/19 18:48 Amlodipine Besylate (Norvasc) 10 mg DAILY NG 07/05/19 09:00 07/25/19 13:29 07/21/19 09:46 Insulin Aspart (NovoLOG) No Dose Q6HR SUBQ 07/05/19 06:00 08/03/19 17:59 07/21/19 12:52 Lisinopril (PriniviL) 20 mg Q12HR ORAL 07/18/19 21:00 08/17/19 20:59 07/21/19 09:47 Loperamide HCl (Imodium) 2 mg Q6H PRN NG Diarrhea 07/05/19 05:50 07/29/19 05:49 07/05/19 16:28 Metformin HCl (Glucophage) 500 mg BID ORAL 07/15/19 15:00 08/14/19 14:59 07/21/19 09:47 Minoxidil (Loniten) 2.5 mg Q4H PRN ORAL bp over 160 syst 07/05/19 07:45 08/01/19 11:44 07/15/19 20:18 Minoxidil (Loniten) 10 mg TWICE A DAY ORAL 07/11/19 18:00 08/06/19 17:59 07/21/19 09:47 Nitroglycerin (Nitro-Bid) 1 inch Q6HR TOPIC 07/05/19 06:00 07/31/19 20:59 07/21/19 12:51 Olanzapine (ZyPREXA) 5 mg BEDTIME ORAL 07/05/19 21:00 07/24/19 20:59 07/20/19 20:07 Ondansetron HCl (Zofran) 4 mg Q6H PRN IVP Nausea & Vomiting 07/05/19 06:15 07/21/19 18:14 Bob Gilmore MD Jul 21, 2019 13:41
--- NOTE | 2019-07-21 13:45 | NUR ---
HEAD OF DATA: REVIEW 07/21/2019 SI: ACUTE CVA . ENCEPHALOMALACIA . DM . ARF . CELLULITIS OF LEFT HAND . 98.3 101 18 131/77 90% ON 2L NC WBC 13.8 BUN 51 BG 181 IS: SORBITOL GT X1 ZYPREXA PO QHS LONITEN PO BID LONITEN Q4HR/PRN LISINOPRIL PO BID NOVOLOG SQ Q6HR NORVASC NG QD LISINOPRIL PO BID NITRO-BID TP Q6HR METFORMIN PO BID \:MED/SURG STATUS PLAN: ACTIVELY ENCOURAGE PATIENT PARTICIPATION NEURO CHECKS MONITOR OFF RESTRAINTS MEDICAL PRESUMPTIVE PLACEMENT ONCE MEDICAL ESTABLISHED
--- NOTE | 2019-07-21 14:01 | NUR ---
NURSE NOTES: Two sutures removed from left hand, fourth digit, ventral side.
[2019-07-21 16:00] VITALS: BP 159/60
--- NOTE | 2019-07-21 17:51 | NUR ---
NURSE NOTES:WOUND CARE FOLLOW-UP NOTES:Pt's skin assessed in presence of primary nurse. Incontinence associated dermatitis resolving. Non0-blanching erythema noted to buttocks and cleft of buttocks with loose dry skin. Darker skin tone without induration noted to R and L clefts of buttocks.Pt did not exhibit any distress to indicate pain when R and L clefts of buttocks each palpated.Both heels are soft but blanchable. No new skin concerns noted.Wound Tx are effective and continued as ordered. All wound prevention protocols continued as care-planned.
--- NOTE | 2019-07-21 19:30 | NUR ---
NURSE NOTES: RECEIVED PATIENT FROM JUSTINO SHIRLEY. PT IS ASLEEP, ON NC 2L, NO ACUTE DISTRESS NOTED. RESTRAINTS NOTED ON LEFT ARM, PULSES PRESENT. GTUBE FEEDING INTACT AND PATENT, NO RESIDUALS, PATIENT IS TOLERATING FEEDING WELL. BILATERAL BUTTOCKS REDNESS NOTED. OPTIFOAM IN PLACE. IV IS INTACT AND PATENT. BED IS LOCKED AND LOW, BED ALARMS ACTIVE, SIDE RAILS UP X2 AND CALL LIGHT IS WITHIN REACH. WILL CONTINUE TO MONITOR.
--- NOTE | 2019-07-21 19:47 | NUR ---
HAND-OFF: Report given to Vicky RN.
[2019-07-21 20:00] VITALS: BP 118/57
[2019-07-22] VITALS (8 sets, daily range): BP systolic 106–166; BP diastolic 53–73
[2019-07-22] MEDS: NovoLOG Insulin Flexpen SUBQ SCH ×5 (00:33→23:50)
[2019-07-22] MEDS: Nitroglycerin 2% oint pkt TOPIC SCH ×5 (05:36→23:53)
--- NOTE | 2019-07-22 07:32 | NUR ---
HAND-OFF: Report given to JUSTINO Mena.
--- NOTE | 2019-07-22 07:45 | NUR ---
NURSE NOTES: Received report from Vicky RN. Patient is arousable to light shaking, alert, non-verbal, no acute distress noted, g-tube feeding running per order, HOB 45 degrees, on 3L NC. Left wrist restraint in place, CMS checked and intact. SCD's on. Fall precautions maintained. Side rails upx3, bed low and locked, call light within reach.
--- NOTE | 2019-07-22 08:11 | NUR ---
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 ENCEPHALOMALACIA . DM . ARF . CELLULITIS OF LEFT HAND . 98.7 57 20 110/67 95 % ON 2L NC IS: ZYPREXA PO QHS LONITEN PO BID LONITEN Q4HR/PRN LISINOPRIL PO BID NOVOLOG SQ Q6HR NORVASC NG QD LISINOPRIL PO BID NITRO-BID TP Q6HR METFORMIN PO BID \:MED/SURG STATUS PLAN: ACTIVELY ENCOURAGE PATIENT PARTICIPATION NEURO CHECKS MONITOR OFF RESTRAINTS MEDICAL PRESUMPTIVE PLACEMENT ONCE MEDICAL ESTABLISHED
[2019-07-22] MEDS: metFORMIN 500mg tab ORAL SCH (09:33)
[2019-07-22] MEDS: Minoxidil 10mg tab ORAL SCH (09:33)
[2019-07-22] MEDS: Lisinopril 20mg tab ORAL SCH (09:33)
--- NOTE | 2019-07-22 10:48 | General Progress Note ---
Assessment/Plan Problem List: (1) Cellulitis of right hand ICD Codes: L03.113 - Cellulitis of right upper limb SNOMED: 52503080 (2) Altered level of consciousness ICD Codes: R40.4 - Transient alteration of awareness SNOMED: 4261147 (3) Sepsis ICD Codes: A41.9 - Sepsis, unspecified organism SNOMED: 97052778 Qualifiers: Qualified Codes: A41.9 - Sepsis, unspecified organism (4) Left middle cerebral artery stroke ICD Codes: I63.512 - Cerebral infarction due to unspecified occlusion or stenosis of left middle cerebral artery SNOMED: 680301536 (5) Left carotid artery occlusion ICD Codes: I65.22 - Occlusion and stenosis of left carotid artery SNOMED: 905958695395500 (6) Hypernatremia Assessment & Plan: better ICD Codes: E87.0 - Hyperosmolality and hypernatremia SNOMED: 824637700 (7) Hypokalemia Assessment & Plan: better ICD Codes: E87.6 - Hypokalemia SNOMED: 84510450 (8) DM (diabetes mellitus) ICD Codes: E11.9 - Type 2 diabetes mellitus without complications SNOMED: 18752438 (9) ARF (acute renal failure) Assessment & Plan: ok ICD Codes: N17.9 - Acute kidney failure, unspecified SNOMED: 85349760 (10) Hypertension ICD Codes: I10 - Essential (primary) hypertension SNOMED: 44460447 (11) Aspiration pneumonia ICD Codes: J69.0 - Pneumonitis due to inhalation of food and vomit SNOMED: 636903971 Status: stable, unchanged Assessment/Plan: continue ASA TF SSI cont Lisinopril cont Metformin Discussed with RN Subjective Allergies: Coded Allergies: UNABLE TO ASSESS (Unverified , 06/18/19) Subjective all noted Objective Last 24 Hour Vital Signs Date Time Temp Pulse Resp B/P (MAP) Pulse Ox O2 Delivery O2 Flow Rate FiO2 07/22/19 09:33 151/68 07/22/19 09:33 151/68 07/22/19 09:00 52 151/68 07/22/19 08:00 98.4 52 20 151/68 (95) 96 07/22/19 05:36 110/67 07/22/19 04:00 98.7 57 20 110/67 (81) 95 07/22/19 00:00 117/70 07/22/19 00:00 98.7 113 20 117/70 (86) 95 07/21/19 21:00 Nasal Cannula 2.0 07/21/19 21:00 118/57 07/21/19 20:27 94 Nasal Cannula 2.0 28 07/21/19 20:00 98.8 108 20 118/57 (77) 91 07/21/19 18:04 159/60 07/21/19 18:04 159/60 07/21/19 16:00 97.7 53 18 159/60 (93) 94 07/21/19 12:51 131/77 07/21/19 12:00 98.3 101 18 131/77 (95) 90 Intake and Output 07/21/19 07/22/19 19:00 07:00 Intake Total 1015 ml 65 ml Output Total 150 ml Balance 1015 ml -85 ml Free Water 300 ml Tube Feeding 715 ml 65 ml Output Urine Total 150 ml # Voids 2 # Bowel Movements 3 Height (Feet): 5 Height (Inches): 8.00 Weight (Pounds): 142 Cardiovascular: normal rate Respiratory/Chest: lungs clear Edema: no edema noted Generalized Kaz Gilmore MD Jul 22, 2019 10:48
--- NOTE | 2019-07-22 12:56 | NUR ---
RAPID RESPONSE: Still awaiting for Dr. Gilmore to call back - paged 2X already by Trina [email or web address].BP 98/56
--- NOTE | 2019-07-22 13:20 | NUR ---
NURSE NOTES: EPIC AMBULATORY ANALYST called at 1223 due to patient being found unresponsive with new onset right sided facial droop, patient would not respond to verbal or painful stimuli, left wrist 20g IV placed. EPIC AMBULATORY ANALYST responded per protocol. Dr. Gilmore paged at 1234 and 1252, received callback at 1315. Orders received, read back and entered. Patient still unresponsive with stable VS, patient starting to move left spontaneously more frequently. Addendum: 07/22/19 at 1333 by Trina Stoll RN NURSE NOTES: Edit: Patient moving left side spontaneously more frequently
--- NOTE | 2019-07-22 13:25 | NUR ---
NURSE NOTES: Called radiology regarding STAT CT scan.
--- NOTE | 2019-07-22 13:40 | NUR ---
NURSE NOTES: Patient continues to move more frequently spontaneously on left side. Still awaiting CT.
--- NOTE | 2019-07-22 13:42 | NUR ---
NURSE NOTES: Called CT again at extension 1058, informed of STAT CT order, radiology stated they will come get the patient.
--- NOTE | 2019-07-22 13:55 | NUR ---
NURSE NOTES: Patient taken to CT.
--- NOTE | 2019-07-22 14:30 | NUR ---
NURSE NOTES: Patient transferred to 201-1 per order. Report given to Denisse BADILLO.
--- NOTE | 2019-07-22 14:39 | Diagnostic Imaging Report ---
Indication: Altered level of consciousness. History of recent acute CVA. Technique: Contiguous 5 mm thick transaxial imaging of the head obtained in a Siemens Sensation [address] scanner. Soft tissue and bone windows generated. Automatic Exposure Control was utilized. Total Dose length Product (DLP): 1454.[address] Dose Index Volume (CTDIvol): 60 mGy Comparison: CT head 06/18/2019, MRI head 06/20/2019 Findings: MRI from 06/20/2019 documented a large acute left MCA territory infarct with diffusion restriction and moderate edema and mass effect on the left lateral ventricle. Current examination performed about one month later demonstrates some volume loss with cortical thinning. The mass effect of the left lateral ventricle has resolved indicating resolution of edema. There is low-attenuation that persists within the left paraventricular and subcortical white matter. The involved cortex which is in the midportion of the left frontal and temporal lobe demonstrates slightly high attenuation which may be a sign of laminar necrosis. No obvious new infarct is identified. There is moderate to severe generalized atrophy of the brain characterized by prominence of the cortical sulci ventricles and basal cisterns. Periventricular bilateral low attenuation noted. There is an old infarct in the right temporal lobe within the middle cranial fossa. There is a deformity of the medial wall of the left orbit from an old injury. Osseous structures are otherwise unremarkable. IMPRESSION: Late subacute/chronic infarct involving portions of the left frontal temporal and parietal lobes (left MCA territory) with the some signs of encephalomalacia or volume loss (acute CVA documented one month earlier by MRI). Some residual edema may be present. Cortical high density suggests laminar necrosis. No obvious new cortical territorial infarcts identified. Old infarct right temporal lobe. Moderate to severe atrophy of the brain. Chronic small vessel ischemic changes in the periventricular white matter. Old fracture of the left lamina paprycea. The CT scanner at [facility] is accredited by the [employer] and the scans are performed using dose optimization techniques as appropriate to a performed exam including Automatic Exposure control.
--- NOTE | 2019-07-22 14:47 | General Progress Note ---
Assessment/Plan Status: stable, unchanged Assessment/Plan: Assessment - Acute CVA - AMS - Dysphagia - arrhythmia - free water deficit - poor prognosis Recommendations - IVF - Abx - monitor labs - follow BM pattern - GT feeds - vital AF - rate per RD rec Subjective Allergies: Coded Allergies: UNABLE TO ASSESS (Unverified , 06/18/19) Subjective above noted tolerating TF arousable calm non-interactive Objective Last 24 Hour Vital Signs Date Time Temp Pulse Resp B/P (MAP) Pulse Ox O2 Delivery O2 Flow Rate FiO2 07/22/19 12:48 85 22 96 07/22/19 12:42 148/53 07/22/19 12:00 98.9 63 20 166/73 (104) 93 07/22/19 09:33 151/68 07/22/19 09:33 151/68 07/22/19 09:00 Nasal Cannula 3.0 07/22/19 09:00 52 151/68 07/22/19 08:00 98.4 52 20 151/68 (95) 96 07/22/19 05:36 110/67 07/22/19 04:00 98.7 57 20 110/67 (81) 95 07/22/19 00:00 117/70 07/22/19 00:00 98.7 113 20 117/70 (86) 95 07/21/19 21:00 Nasal Cannula 2.0 07/21/19 21:00 118/57 07/21/19 20:27 94 Nasal Cannula 2.0 28 07/21/19 20:00 98.8 108 20 118/57 (77) 91 07/21/19 18:04 159/60 07/21/19 18:04 159/60 07/21/19 16:00 97.7 53 18 159/60 (93) 94 Intake and Output 07/21/19 07/22/19 19:00 07:00 Intake Total 1015 ml 65 ml Output Total 150 ml Balance 1015 ml -85 ml Free Water 300 ml Tube Feeding 715 ml 65 ml Output Urine Total 150 ml # Voids 2 # Bowel Movements 3 Laboratory Tests 07/22/19 12:25: Arterial Blood pH 7.412, Arterial Blood Partial Pressure CO2 44.8, Arterial Blood Partial Pressure O2 80.4, Arterial Blood HCO3 27.9H, Arterial Blood Oxygen Saturation 95.0, Arterial Blood Base Excess 2.7H, Michael Test Positive Height (Feet): 5 Height (Inches): 8.00 Weight (Pounds): 142 Objective Elderly man NCAT supple Coarse BS RR abd soft no edema Barb Lee MD Jul 22, 2019 14:47
--- NOTE | 2019-07-22 14:50 | NUR ---
NURSE NOTES: Patient received from 3E JUSTINO Mena. Patient stable AOx0. No s/sx of distress with RR even and unlabored on 3L NC. Strength 0/5 to right side. Gtube in place with no residual. Condom catheter on and draining well to gravity. Skin is intact. Optifoam on sacrum. SCDs on. Side rails up x2, call light within reach, bed low and locked. Will continue to monitor.
[2019-07-22] MEDS ORDERED: Minoxidil 2.5mg tab NG PRN (14:59)
[2019-07-22] MEDS ORDERED: Acetaminophen 650mg/20.3ml NG PRN (14:59)
[2019-07-22] MEDS: Minoxidil 10mg tab NG SCH (17:29)
[2019-07-22] MEDS: metFORMIN 500mg tab NG SCH (17:30)
--- NOTE | 2019-07-22 19:41 | NUR ---
HAND-OFF: Report given to Andria BADILLO. Patient stable. Plan of care endorsed.
--- NOTE | 2019-07-22 20:01 | NUR ---
NURSE NOTES: Report received from Estelle BADILLO. Patient is observed in bed, asleep but arousable by tactile stimuli. Respiratory even and unlabored. IV is asymptomatic, patent, and intact. GTF is running at a prescribed rate. <10cc residual noted. Head of bed elevated. Bed is in lowest position with side rails up x2 and brakes are engaged. Bed alarm is on. Will continue frequent monitoring.
[2019-07-22] MEDS: Lisinopril 20mg tab NG SCH (20:35)
--- NOTE | 2019-07-23 | NUR ---
NURSE NOTES: Patient is asleep but arousable by voice. No s/s of acute distress at this time. VSS. Will continue to monitor.
[2019-07-23 00:07] VITALS: BP 93/54
[2019-07-23 04:00] VITALS: BP 96/55
--- NOTE | 2019-07-23 04:00 | NUR ---
NURSE NOTES: Patient is asleep but arousable by voice. No s/s of acute distress at this time. Will continue to monitor.
[2019-07-23] MEDS: Nitroglycerin 2% oint pkt TOPIC SCH ×3 (06:00→17:14)
[2019-07-23] MEDS: NovoLOG Insulin Flexpen SUBQ SCH ×3 (06:05→17:17)
--- NOTE | 2019-07-23 06:34 | General Progress Note ---
Assessment/Plan Status: stable, unchanged Assessment/Plan: Assessment/Plan Status: stable, unchanged Assessment/Plan: Assessment - Acute CVA - AMS - Dysphagia - arrhythmia - free water deficit - poor prognosis Recommendations - IVF - Abx - monitor labs - follow BM pattern - GT feeds - vital AF Subjective ROS Limited/Unobtainable: No Allergies: Coded Allergies: UNABLE TO ASSESS (Unverified , 06/18/19) Objective Last 24 Hour Vital Signs Date Time Temp Pulse Resp B/P (MAP) Pulse Ox O2 Delivery O2 Flow Rate FiO2 07/23/19 06:00 91/65 07/23/19 04:00 97.8 86 23 96/55 (69) 95 07/23/19 03:47 79 07/23/19 00:07 97.2 83 23 93/54 (67) 95 07/22/19 23:53 93/54 07/22/19 23:45 87 07/22/19 21:00 Nasal Cannula 3.0 07/22/19 20:35 106/56 07/22/19 20:01 90 07/22/19 20:00 97.5 84 23 106/56 (73) 94 07/22/19 17:29 110/60 07/22/19 17:29 110/60 07/22/19 16:00 93 07/22/19 16:00 97.2 93 20 117/67 (84) 94 07/22/19 16:00 3.0 07/22/19 14:50 97.2 84 18 110/60 (77) 94 07/22/19 12:48 85 22 96 07/22/19 12:42 148/53 07/22/19 12:00 98.9 63 20 166/73 (104) 93 07/22/19 09:33 151/68 07/22/19 09:33 151/68 07/22/19 09:00 Nasal Cannula 3.0 07/22/19 09:00 52 151/68 07/22/19 08:00 98.4 52 20 151/68 (95) 96 Intake and Output 07/22/19 07/23/19 19:00 07:00 Intake Total 1055 ml Output Total 1200 ml Balance -145 ml Intake Oral 140 ml Free Water 330 ml Tube Feeding 585 ml Output Urine Total 1200 ml # Voids 3 Laboratory Tests 2/7/20 12:25: Arterial Blood pH 7.412, Arterial Blood Partial Pressure CO2 44.8, Arterial Blood Partial Pressure O2 80.4, Arterial Blood HCO3 27.9H, Arterial Blood Oxygen Saturation 95.0, Arterial Blood Base Excess 2.7H, Michael Test Positive Height (Feet): 5 Height (Inches): 8.00 Weight (Pounds): 142 General Appearance: no apparent distress EENT: normal ENT inspection Neck: supple Cardiovascular: normal rate Respiratory/Chest: decreased breath sounds Abdomen: normal bowel sounds, non tender, soft Extremities: non-tender Louie Fan MD Jul 23, 2019 06:34
--- NOTE | 2019-07-23 06:56 | NUR ---
HAND-OFF: Report given to Beatrice BADILLO. Patient is observed in bed asleep but arousable by voice. Patient is in stable condition. Endorsed plan of care.
--- NOTE | 2019-07-23 07:00 | NUR ---
NURSE NOTES: Received report from JUSTINO Ayers. Observed patient in bed, asleep, opens eyes to verbal stimuli. On O2 3L via NC, no respiratory distress noted. nurse monitoring shows sinus rhythm with HR of 82. Left wrist 20g intact and patent. GT noted, intact, patent, infusing TF at prescribed rate. HOB elevated. Noted soft wrist restraint on left hand. Bed locked, alarmed, and in lowest position, side rails up x2, and call light left within reach. Instructed patient to call for assistance, verbalized understanding. Will continue plan of care and will continue to monitor patient.
--- NOTE | 2019-07-23 07:23 | NUR ---
RD ASSESSMENT & RECOMMENDATIONS SEE CARE ACTIVITY FOR COMPLETE ASSESSMENT DAILY ESTIMATED NEEDS: Needs based on sepsis 72kg adj 25-30 kcals/kg 4738-1802 total kcals 1.25-2 g protein/kg 90-144 g total protein 25-30 mL/kg 4570-6588 total fluid mLs NUTRITION DIAGNOSIS: * Swallowing difficulty R/T dysphagia, s/p new and old CVA as evidenced by NPO per TRIMMING MACHINE SET UP OPERATOR rec, has been on NGT feeds, s/p PEG placement, on GT feeds. * Altered nutrition related lab values r/t sepsis, DM, volume deficit as evidenced by elev WBC (13.8), elev POC glu (146-186) w/ A1C 6.9, elev Na (153-> wnl), elev BUN (51 trend up, not updated), elev creat (1.5-> wnl) CURRENT TF:Vital 1.2 @65ml x24 hrs ENTERAL NUTRITION RECOMMENDATIONS: VITAL 1.2 @ 65ml/hr x 24 hrs to provide 1560ml, 1872kcal, 117g prot, 1265ml free water - Maintain as tolerated - HOB over 30 degrees - H20 flush of 150ml q 4 hrs ADDITIONAL RECOMMENDATIONS: 1) CALIBRATED bedscale wt: fluctuating wts 2) Monitor for readiness fo oral grat, MBSS- monitor TRIMMING MACHINE SET UP OPERATOR rec 3) Monitor BGs closely-consider long acting insulin for improved BG control 4) Check f/up BMP: not updated since 07/10 5) Monitor lytes, replete as needed 6) Probiotics w/ continued diarrhea. .
[2019-07-23 08:00] VITALS: BP 95/53
[2019-07-23] MEDS: Lisinopril 20mg tab NG SCH ×2 (08:40→21:15)
[2019-07-23] MEDS: Minoxidil 10mg tab NG SCH ×2 (08:58→17:14)
[2019-07-23] MEDS: metFORMIN 500mg tab NG SCH ×2 (08:58→17:14)
[2019-07-23 12:00] VITALS: BP 129/67
--- NOTE | 2019-07-23 14:45 | Cardiology Progress Note ---
Assessment/Plan Problem List: (1) Ventricular tachyarrhythmia (2) Aspiration pneumonia (3) Hypertensive urgency (4) Left middle cerebral artery stroke (5) Hypertension Status: stable, unchanged Status Narrative Mr Winkler is stable from a cardiac standpoint, in SR on telemetry. Remains w/ encephalopathy. No arrhythmias noted on telemetry He had reported new R facial droop on 07/22, has baseline R hemiplegia- ? dec perfusion in area of previous CVA causing new neuro finding. BP relatively low at that time Assessment/Plan Will decrease amlodipine to 5 mg and continue lisinopril bid. Maintain SBP > 100 Continue supportive care. Subjective ROS Limited/Unobtainable: Yes Subjective Cardiology for Dr. Melgar Pt awake, nonverbal Transferred to telemetry on 07/22 w/ new R facial droop. SBP 98/ Objective Last 24 Hour Vital Signs Date Time Temp Pulse Resp B/P (MAP) Pulse Ox O2 Delivery O2 Flow Rate FiO2 07/23/19 12:00 97.0 77 17 129/67 (87) 99 07/23/19 11:34 81 07/23/19 11:33 129/81 07/23/19 09:00 Nasal Cannula 3.0 07/23/19 08:58 95/53 07/23/19 08:40 95/53 07/23/19 08:40 82 95/53 07/23/19 08:20 95 Nasal Cannula 2.0 28 07/23/19 08:00 97.7 82 20 95/53 (67) 95 07/23/19 07:58 82 07/23/19 06:00 91/65 07/23/19 04:00 97.8 86 23 96/55 (69) 95 07/23/19 03:47 79 07/23/19 00:07 97.2 83 23 93/54 (67) 95 07/22/19 23:53 93/54 07/22/19 23:45 87 07/22/19 21:00 Nasal Cannula 3.0 07/22/19 20:35 106/56 07/22/19 20:01 90 07/22/19 20:00 97.5 84 23 106/56 (73) 94 07/22/19 17:29 110/60 07/22/19 17:29 110/60 07/22/19 16:00 93 07/22/19 16:00 97.2 93 20 117/67 (84) 94 07/22/19 16:00 3.0 07/22/19 14:50 97.2 84 18 110/60 (77) 94 General Appearance: alert, thin EENT: PERRL/EOMI Neck: no JVD Rhythm: NSR Cardiovascular: normal rate, regular rhythm, no gallop/murmur Respiratory/Chest: other - clear anteriorly. poor cooperation w/ deep inspir effort Abdomen: non tender, soft, other - + g tube Extremities: no swelling Neurologic: alert, other - nonverbal. R UE/ RL E 0/5 motor Intake and Output 07/22/19 07/23/19 19:00 07:00 Intake Total 1055 ml 515 ml Output Total 1200 ml 901 ml Balance -145 ml -386 ml Intake Oral 140 ml 140 ml Free Water 330 ml 150 ml IV Total 20 ml Tube Feeding 585 ml 130 ml Other 75 ml Output Urine Total 1200 ml 900 ml Stool Total 1 ml # Voids 3 1 # Bowel Movements 2 Nell Mosley MD Jul 23, 2019 14:45
--- NOTE | 2019-07-23 15:09 | General Progress Note ---
Assessment/Plan Problem List: (1) Cellulitis of right hand ICD Codes: L03.113 - Cellulitis of right upper limb SNOMED: 98144947 (2) Altered level of consciousness ICD Codes: R40.4 - Transient alteration of awareness SNOMED: 3506995 (3) Sepsis ICD Codes: A41.9 - Sepsis, unspecified organism SNOMED: 70723435 Qualifiers: Qualified Codes: A41.9 - Sepsis, unspecified organism (4) Left middle cerebral artery stroke ICD Codes: I63.512 - Cerebral infarction due to unspecified occlusion or stenosis of left middle cerebral artery SNOMED: 038848466 (5) Left carotid artery occlusion ICD Codes: I65.22 - Occlusion and stenosis of left carotid artery SNOMED: 291779832577833 (6) Hypernatremia Assessment & Plan: better ICD Codes: E87.0 - Hyperosmolality and hypernatremia SNOMED: 760750942 (7) Hypokalemia Assessment & Plan: better ICD Codes: E87.6 - Hypokalemia SNOMED: 74356134 (8) DM (diabetes mellitus) ICD Codes: E11.9 - Type 2 diabetes mellitus without complications SNOMED: 50421288 (9) ARF (acute renal failure) Assessment & Plan: ok ICD Codes: N17.9 - Acute kidney failure, unspecified SNOMED: 31495574 (10) Hypertension ICD Codes: I10 - Essential (primary) hypertension SNOMED: 07922116 (11) Aspiration pneumonia ICD Codes: J69.0 - Pneumonitis due to inhalation of food and vomit SNOMED: 588427101 Status: stable, unchanged Assessment/Plan: continue ASA TF SSI cont Lisinopril cont Metformin Discussed with RN Subjective Allergies: Coded Allergies: UNABLE TO ASSESS (Unverified , 06/18/19) Subjective In NAD Objective Last 24 Hour Vital Signs Date Time Temp Pulse Resp B/P (MAP) Pulse Ox O2 Delivery O2 Flow Rate FiO2 07/23/19 12:00 97.0 77 17 129/67 (87) 99 07/23/19 11:34 81 07/23/19 11:33 129/81 07/23/19 09:00 Nasal Cannula 3.0 07/23/19 08:58 95/53 07/23/19 08:40 95/53 07/23/19 08:40 82 95/53 07/23/19 08:20 95 Nasal Cannula 2.0 28 07/23/19 08:00 97.7 82 20 95/53 (67) 95 07/23/19 07:58 82 07/23/19 06:00 91/65 07/23/19 04:00 97.8 86 23 96/55 (69) 95 07/23/19 03:47 79 07/23/19 00:07 97.2 83 23 93/54 (67) 95 07/22/19 23:53 93/54 07/22/19 23:45 87 07/22/19 21:00 Nasal Cannula 3.0 07/22/19 20:35 106/56 07/22/19 20:01 90 07/22/19 20:00 97.5 84 23 106/56 (73) 94 07/22/19 17:29 110/60 07/22/19 17:29 110/60 07/22/19 16:00 93 07/22/19 16:00 97.2 93 20 117/67 (84) 94 07/22/19 16:00 3.0 Intake and Output 07/22/19 07/23/19 19:00 07:00 Intake Total 1055 ml 515 ml Output Total 1200 ml 901 ml Balance -145 ml -386 ml Intake Oral 140 ml 140 ml Free Water 330 ml 150 ml IV Total 20 ml Tube Feeding 585 ml 130 ml Other 75 ml Output Urine Total 1200 ml 900 ml Stool Total 1 ml # Voids 3 1 # Bowel Movements 2 Height (Feet): 5 Height (Inches): 8.00 Weight (Pounds): 142 Cardiovascular: normal rate Respiratory/Chest: rhonchi - bilaterally Edema: no edema noted Generalized Kaz Gilmore MD Jul 23, 2019 15:09
--- NOTE | 2019-07-23 15:49 | NUR ---
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 ENCEPHALOMALACIA. DM. ARF. CELLULITIS OF LEFT HAND. VS: t 97 hr 77 rr 17 b/p 129/67 sats 99% on 3l/nc LABS: NONE TODAY IS: ZYPREXA PO QHS LONITEN PO BID LONITEN Q4HR/PRN LISINOPRIL PO BID NOVOLOG SQ Q6HR NORVASC NG QD LISINOPRIL PO BID NITRO-BID TP Q6HR METFORMIN PO BID TELE STATUS PLAN: RAPID RESPONSE 07/22 NEURO CHECKS MONITOR OFF RESTRAINTS
[2019-07-23 16:00] VITALS: BP 110/71
--- NOTE | 2019-07-23 19:25 | NUR ---
HAND-OFF: Report given to Cinthya Matta RN. Endorsed plan of care. Patient in stable condition.
--- NOTE | 2019-07-23 19:50 | NUR ---
NURSE NOTES: Received pt from JUSTINO Barron. Pt asleep. Bed in lowest position. GTube feeding running. Call light within reach. Will continue to monitor.
[2019-07-23 20:00] VITALS: BP 105/67
[2019-07-24] VITALS: BP 122/73
[2019-07-24] MEDS: Nitroglycerin 2% oint pkt TOPIC SCH ×5 (00:01→23:50)
[2019-07-24] MEDS: NovoLOG Insulin Flexpen SUBQ SCH ×5 (00:02→23:49)
[2019-07-24 04:00] VITALS: BP 101/50
--- NOTE | 2019-07-24 07:25 | NUR ---
HAND-OFF: Report given to JUSTINO Cheema. Pt stable.
[2019-07-24 08:00] VITALS: BP 114/72
--- NOTE | 2019-07-24 08:02 | NUR ---
NURSE NOTES: Pt awake/not alert, only respond to physical by withdrawal left side only, no response on right side, breathing easily on 3 lpm nasal cannula. Vital signs stable with SR @ 104 on monitor. G-tube with Vital AF @ 65 ml., 0 ml residual 75 ml free water flush given. IV access left wrist, flushed with 10 ml NS and locked. Condom cath in place. Soft restraint on left wrist. Bed left in low position, side rails up x 3 and call light left near pt's hand.
--- NOTE | 2019-07-24 08:14 | General Progress Note ---
Assessment/Plan Status: stable, unchanged Assessment/Plan: Assessment/Plan Status: stable, unchanged Assessment/Plan: Assessment - Acute CVA - AMS - Dysphagia - arrhythmia - free water deficit - poor prognosis Recommendations - IVF - Abx - monitor labs - follow BM pattern - GT feeds - vital AF Subjective ROS Limited/Unobtainable: No Allergies: Coded Allergies: UNABLE TO ASSESS (Unverified , 06/18/19) Objective Last 24 Hour Vital Signs Date Time Temp Pulse Resp B/P (MAP) Pulse Ox O2 Delivery O2 Flow Rate FiO2 07/24/19 04:00 101 07/24/19 04:00 97.7 94 20 101/50 (67) 96 07/24/19 00:01 122/73 07/24/19 00:00 95 07/24/19 00:00 97.4 89 20 122/73 (89) 96 07/23/19 21:15 105/67 07/23/19 21:00 Nasal Cannula 3.0 07/23/19 20:03 94 Nasal Cannula 2.0 28 07/23/19 20:00 93 07/23/19 20:00 96.4 90 18 105/67 (80) 95 07/23/19 17:14 110/71 07/23/19 17:14 110/71 07/23/19 16:25 89 07/23/19 16:00 98.0 89 18 110/71 (84) 97 07/23/19 12:00 97.0 77 17 129/67 (87) 99 07/23/19 11:34 81 07/23/19 11:33 129/81 07/23/19 09:00 Nasal Cannula 3.0 07/23/19 08:58 95/53 07/23/19 08:40 95/53 07/23/19 08:40 82 95/53 07/23/19 08:20 95 Nasal Cannula 2.0 28 Intake and Output 07/23/19 07/24/19 19:00 07:00 Intake Total 915 ml 65 ml Output Total 800 ml 400 ml Balance 115 ml -335 ml Tube Feeding 715 ml 65 ml Other 200 ml Output Urine Total 800 ml 400 ml Height (Feet): 5 Height (Inches): 8.00 Weight (Pounds): 142 General Appearance: alert EENT: normal ENT inspection Neck: supple Cardiovascular: normal rate Respiratory/Chest: decreased breath sounds Abdomen: normal bowel sounds, non tender, soft Extremities: non-tender Louie Fan MD Jul 24, 2019 08:14
[2019-07-24] MEDS: Lisinopril 20mg tab NG SCH (09:31)
[2019-07-24] MEDS: metFORMIN 500mg tab NG SCH ×2 (09:32→18:05)
[2019-07-24] MEDS: Minoxidil 10mg tab NG SCH ×2 (09:32→18:07)
--- NOTE | 2019-07-24 10:30 | Infectious Diseases Prog Note ---
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 Aphasia R hemiplegia Leukocytosis RECOMMENDATION: Observe off antibiotic F/U CBC F/U CXR Subjective ROS Limited/Unobtainable: Yes Constitutional: Reports: other - transferred to telemetyry; Denies: fever Neurologic: Reports: other - developed R facial drop & unresponsiveness Allergies: Coded Allergies: UNABLE TO ASSESS (Unverified , 06/18/19) Objective Vital Signs Last 24 Hour Vital Signs Date Time Temp Pulse Resp B/P (MAP) Pulse Ox O2 Delivery O2 Flow Rate FiO2 07/24/19 09:32 101 114/73 07/24/19 09:32 114/73 07/24/19 09:31 101/50 07/24/19 04:00 101 07/24/19 04:00 97.7 94 20 101/50 (67) 96 07/24/19 00:01 122/73 07/24/19 00:00 95 07/24/19 00:00 97.4 89 20 122/73 (89) 96 07/23/19 21:15 105/67 07/23/19 21:00 Nasal Cannula 3.0 07/23/19 20:03 94 Nasal Cannula 2.0 28 07/23/19 20:00 93 07/23/19 20:00 96.4 90 18 105/67 (80) 95 07/23/19 17:14 110/71 07/23/19 17:14 110/71 07/23/19 16:25 89 07/23/19 16:00 98.0 89 18 110/71 (84) 97 07/23/19 12:00 97.0 77 17 129/67 (87) 99 07/23/19 11:34 81 07/23/19 11:33 129/81 Height (Feet): 5 Height (Inches): 8.00 Weight (Pounds): 142 HEENT: mucous membranes moist Respiratory/Chest: lungs clear Cardiovascular: tachycardia Abdomen: soft, non tender Extremities: no edema Neurologic/Psychiatric: aphasia, other - hemiplegia Current Medications Medications (Trade) Dose Ordered Sig/Leonor Route PRN Reason Start Time Stop Time Status Last Admin Dose Admin Acetaminophen (Tylenol) 650 mg Q4H PRN NG Mild Pain/Temp > 100.5 07/22/19 14:59 08/21/19 14:58 Amlodipine Besylate (Norvasc) 5 mg DAILY NG 07/24/19 09:00 07/25/19 13:29 07/24/19 09:32 Insulin Aspart (NovoLOG) No Dose Q6HR SUBQ 07/22/19 18:00 08/03/19 17:59 07/24/19 06:31 Lisinopril (PriniviL) 20 mg Q12HR NG 07/23/19 21:00 08/17/19 20:59 07/24/19 09:31 Loperamide HCl (Imodium) 2 mg Q6H PRN NG Diarrhea 07/22/19 14:59 08/21/19 14:58 Metformin HCl (Glucophage) 500 mg BID NG 07/22/19 18:00 08/14/19 14:59 07/24/19 09:32 Minoxidil (Loniten) 2.5 mg Q4H PRN NG bp over 160 syst 07/22/19 14:59 08/21/19 14:58 Minoxidil (Loniten) 10 mg TWICE A DAY NG 07/22/19 18:00 08/06/19 17:59 07/24/19 09:32 Nitroglycerin (Nitro-Bid) 1 inch Q6HR TOPIC 07/22/19 18:00 07/31/19 20:59 07/24/19 00:01 Olanzapine (ZyPREXA) 5 mg BEDTIME NG 07/22/19 21:00 07/24/19 20:59 07/23/19 21:14 Bob Gilmore MD Jul 24, 2019 10:30
--- NOTE | 2019-07-24 11:11 | Diagnostic Imaging Report ---
EXAM: XR Chest, 1 View CLINICAL HISTORY: INFECT TECHNIQUE: Frontal view of the chest. COMPARISON: Chest x-ray 07/08/19 FINDINGS: Lungs: Mild central vascular congestion. Mild left lung base atelectasis. No focal infiltrate or consolidation. Pleural space: Unremarkable. No pneumothorax. Heart: Mild cardiomegaly. Mediastinum: Unremarkable. Bones/joints: Degenerative changes of the spine. IMPRESSION: Mild central vascular congestion. Mild left lung base atelectasis. No focal infiltrate or consolidation.
[2019-07-24 11:30] LABS: BASOPHILS % (AUTO) 0.6 % (0.0-2.0); HEMATOCRIT 41.3 % (42.0-52.0); HEMOGLOBIN 14.1 G/DL (14.2-18.0); LYMPHOCYTES % (AUTO) 23.4 % (20.0-45.0); MEAN CORPUSCULAR VOLUME 92 FL (80-99); MONOCYTES % (AUTO) 5.2 % (1.0-10.0); NEUTROPHILS % (AUTO) 67.9 % (45.0-75.0); PLATELET COUNT 183 K/UL (150-450); RED BLOOD COUNT 4.49 M/UL (4.70-6.10); RED CELL DISTRIBUTION WIDTH 11.9 % (11.6-14.8)
[2019-07-24 12:00] VITALS: BP 110/70
--- NOTE | 2019-07-24 14:00 | General Progress Note ---
Assessment/Plan Problem List: (1) Cellulitis of right hand ICD Codes: L03.113 - Cellulitis of right upper limb SNOMED: 73151394 (2) Altered level of consciousness ICD Codes: R40.4 - Transient alteration of awareness SNOMED: 9834851 (3) Sepsis ICD Codes: A41.9 - Sepsis, unspecified organism SNOMED: 80359917 Qualifiers: Qualified Codes: A41.9 - Sepsis, unspecified organism (4) Left middle cerebral artery stroke ICD Codes: I63.512 - Cerebral infarction due to unspecified occlusion or stenosis of left middle cerebral artery SNOMED: 225942968 (5) Left carotid artery occlusion ICD Codes: I65.22 - Occlusion and stenosis of left carotid artery SNOMED: 364284544823004 (6) Hypernatremia Assessment & Plan: better ICD Codes: E87.0 - Hyperosmolality and hypernatremia SNOMED: 668228064 (7) Hypokalemia Assessment & Plan: better ICD Codes: E87.6 - Hypokalemia SNOMED: 71460111 (8) DM (diabetes mellitus) ICD Codes: E11.9 - Type 2 diabetes mellitus without complications SNOMED: 74401947 (9) ARF (acute renal failure) Assessment & Plan: ok ICD Codes: N17.9 - Acute kidney failure, unspecified SNOMED: 71382168 (10) Hypertension ICD Codes: I10 - Essential (primary) hypertension SNOMED: 32643044 (11) Aspiration pneumonia ICD Codes: J69.0 - Pneumonitis due to inhalation of food and vomit SNOMED: 767579490 Status: stable, unchanged Assessment/Plan: continue ASA TF SSI cont Lisinopril cont Metformin Discussed with RN will discuss with ID abxs ? Subjective Allergies: Coded Allergies: UNABLE TO ASSESS (Unverified , 06/18/19) Subjective In NAD Objective Last 24 Hour Vital Signs Date Time Temp Pulse Resp B/P (MAP) Pulse Ox O2 Delivery O2 Flow Rate FiO2 07/24/19 12:05 110/70 07/24/19 09:32 101 114/73 07/24/19 09:32 114/73 07/24/19 09:31 101/50 07/24/19 09:00 Nasal Cannula 3.0 07/24/19 04:00 101 07/24/19 04:00 97.7 94 20 101/50 (67) 96 07/24/19 00:01 122/73 07/24/19 00:00 95 07/24/19 00:00 97.4 89 20 122/73 (89) 96 07/23/19 21:15 105/67 07/23/19 21:00 Nasal Cannula 3.0 07/23/19 20:03 94 Nasal Cannula 2.0 28 07/23/19 20:00 93 07/23/19 20:00 96.4 90 18 105/67 (80) 95 07/23/19 17:14 110/71 07/23/19 17:14 110/71 07/23/19 16:25 89 07/23/19 16:00 98.0 89 18 110/71 (84) 97 Intake and Output 07/23/19 07/24/19 19:00 07:00 Intake Total 915 ml 65 ml Output Total 800 ml 400 ml Balance 115 ml -335 ml Tube Feeding 715 ml 65 ml Other 200 ml Output Urine Total 800 ml 400 ml Laboratory Tests 07/24/19 11:10: White Blood Count 14.0H, Red Blood Count 4.49L, Hemoglobin 14.1L, Hematocrit 41.3L, Mean Corpuscular Volume 92, Mean Corpuscular Hemoglobin 31.4H, Mean Corpuscular Hemoglobin Concent 34.2, Red Cell Distribution Width 11.9, Platelet Count 183, Mean Platelet Volume 6.5, Neutrophils (%) (Auto) 67.9, Lymphocytes (% ) (Auto) 23.4, Monocytes (%) (Auto) 5.2, Eosinophils (%) (Auto) 3.0, Basophils ( %) (Auto) 0.6 Height (Feet): 5 Height (Inches): 8.00 Weight (Pounds): 142 Cardiovascular: normal rate Respiratory/Chest: rhonchi - bilaterally Edema: no edema noted Generalized Kaz Gilmore MD Jul 24, 2019 14:00
--- NOTE | 2019-07-24 14:18 | Cardiology Progress Note ---
Assessment/Plan Problem List: (1) Ventricular tachyarrhythmia (2) Aspiration pneumonia (3) Hypertensive urgency (4) Left middle cerebral artery stroke Assessment & Plan: R hemiplegia, aphasia (5) Hypertension (6) Leukocytosis Status: stable, unchanged Status Narrative Mr Winkler is stable from a cardiac standpoint, in SR on telemetry . Aphasic, R hemiplegia No arrhythmias noted on telemetry. No new neuro symptoms overnight. BPs remain 90-100s systolic Worsening leukocytosis noted - r/o new infection. Assessment/Plan decrease lisinopril to qd and continue amlodipine Maintain SBP > 100 Check u/a , micro Followup labs in am Continue supportive care. Subjective ROS Limited/Unobtainable: Yes Subjective Cardiology for Dr. Melgar Pt awake, nonverbal No new events overnight Objective Last 24 Hour Vital Signs Date Time Temp Pulse Resp B/P (MAP) Pulse Ox O2 Delivery O2 Flow Rate FiO2 07/24/19 12:05 110/70 07/24/19 12:00 85 07/24/19 09:32 101 114/73 07/24/19 09:32 114/73 07/24/19 09:31 101/50 07/24/19 09:00 93 07/24/19 09:00 Nasal Cannula 3.0 07/24/19 04:00 101 07/24/19 04:00 97.7 94 20 101/50 (67) 96 07/24/19 00:01 122/73 07/24/19 00:00 95 07/24/19 00:00 97.4 89 20 122/73 (89) 96 07/23/19 21:15 105/67 07/23/19 21:00 Nasal Cannula 3.0 07/23/19 20:03 94 Nasal Cannula 2.0 28 07/23/19 20:00 93 07/23/19 20:00 96.4 90 18 105/67 (80) 95 07/23/19 17:14 110/71 07/23/19 17:14 110/71 07/23/19 16:25 89 07/23/19 16:00 98.0 89 18 110/71 (84) 97 General Appearance: no apparent distress, alert EENT: PERRL/EOMI Neck: supple, no JVD Rhythm: NSR Cardiovascular: normal rate, regular rhythm, no gallop/murmur Respiratory/Chest: other - occ rhonchi Abdomen: normal bowel sounds, non tender, soft Extremities: other - R UE / hand, forearm edema Neurologic: alert, aphasia - R UE, RLE 0/5 motor, other Intake and Output 07/23/19 07/24/19 19:00 07:00 Intake Total 915 ml 65 ml Output Total 800 ml 400 ml Balance 115 ml -335 ml Tube Feeding 715 ml 65 ml Other 200 ml Output Urine Total 800 ml 400 ml Laboratory Tests Test 07/24/19 11:10 White Blood Count 14.0 K/UL (4.8-10.8) H Red Blood Count 4.49 M/UL (4.70-6.10) L Hemoglobin 14.1 G/DL (14.2-18.0) L Hematocrit 41.3 % (42.0-52.0) L Mean Corpuscular Volume 92 FL (80-99) Mean Corpuscular Hemoglobin 31.4 PG (27.0-31.0) H Mean Corpuscular Hemoglobin Concent 34.2 G/DL (32.0-36.0) Red Cell Distribution Width 11.9 % (11.6-14.8) Platelet Count 183 K/UL (150-450) Mean Platelet Volume 6.5 FL (6.5-10.1) Neutrophils (%) (Auto) 67.9 % (45.0-75.0) Lymphocytes (%) (Auto) 23.4 % (20.0-45.0) Monocytes (%) (Auto) 5.2 % (1.0-10.0) Eosinophils (%) (Auto) 3.0 % (0.0-3.0) Basophils (%) (Auto) 0.6 % (0.0-2.0) Nell Mosley MD Jul 24, 2019 14:18
[2019-07-24 16:00] VITALS: BP 114/76
--- NOTE | 2019-07-24 19:15 | NUR ---
NURSE NOTES: Got report from Deni RN. Pt in stable condition. Denies any pain. No s/s of distress or discomfort noted. Pt resting in bed comfortably. Bed in low and locked position, call light within reach, bedside table within reach. Continue to monitor.
[2019-07-24 19:35] LABS: APPEARANCE,URINE CLOUDY; BILIRUBIN, URINE NEGATIVE (NEGATIVE); GLUCOSE, URINE (UA) NEGATIVE (NEGATIVE); KETONES,URINE NEGATIVE (NEGATIVE); LEUKOCYTE ESTERASE ,URINE 3+ (NEGATIVE); NITRITE,URINE POSITIVE (NEGATIVE); PH,URINE 6 (4.5-8.0); PROTEIN,URINE 1+ (NEGATIVE); UROBILINOGEN,URINE NORMAL MG/DL (0.0-1.0)
[2019-07-24 19:39] LABS: COLOR,URINE YELLOW
[2019-07-24 20:00] VITALS: BP 125/79
[2019-07-25] VITALS: BP 146/84
[2019-07-25 04:00] VITALS: BP 116/74
[2019-07-25] MEDS: NovoLOG Insulin Flexpen SUBQ SCH ×3 (06:00→18:00)
[2019-07-25] MEDS: Nitroglycerin 2% oint pkt TOPIC SCH ×3 (06:00→18:00)
--- NOTE | 2019-07-25 07:15 | NUR ---
HAND-OFF: Report given to Deni BADILLO.
[2019-07-25 07:44] LABS: BLOOD UREA NITROGEN 86 mg/dL (7-18); CALCIUM 9.7 MG/DL (8.5-10.1); CREATININE 1.4 MG/DL (0.55-1.30)
--- NOTE | 2019-07-25 07:44 | NUR ---
NURSE NOTES: Pt asleep/obtunded, only respond to physical by withdrawal left side only, no response on right side, breathing easily on 3 lpm nasal cannula. Vital signs stable with SR @ .96 on monitor. G-tube with Vital AF @ 65 ml., 05 ml residual 75 ml free water flush given. IV access left wrist, flushed with 10 ml NS and locked. Condom cath in place. Soft restraint on left wrist. Oral care provided to remove accumulated mucus from mouth. SCDs in place bilaterally and running. Bed left in low position, side rails up x 3 and call light left near pt's hand.
[2019-07-25 08:00] VITALS: BP 140/97
[2019-07-25 08:01] LABS: ANION GAP 8 mmol/L (5-15); CARBON DIOXIDE 31 MMOL/L (21-32); CHLORIDE 124 MMOL/L (98-107); POTASSIUM 4.6 MMOL/L (3.5-5.1); SODIUM 162 MMOL/L (136-145)
--- NOTE | 2019-07-25 08:36 | NUR ---
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 PNA 97.7 99 20 116/74 96% ON 3L/NC WBC+14.0 NA+162 BUN+86 CR+1.4 IS: LISINOPRIL GT QD NORVASC GT QD METFORMIN GT BID MINOXIDIL GT BID NITRO 1" Q6HRS : TELEMETRY STATUS PLAN: URINE CX
[2019-07-25] MEDS: metFORMIN 500mg tab NG SCH ×2 (09:25→18:00)
[2019-07-25] MEDS: Lisinopril 20mg tab NG SCH (09:25)
[2019-07-25] MEDS: Minoxidil 10mg tab NG SCH ×2 (09:26→18:00)
--- NOTE | 2019-07-25 09:57 | Infectious Diseases Prog Note ---
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 Aphasia R hemiplegia Leukocytosis Pyuria, UTI RECOMMENDATION: Start on Rocephin F/U CBC Subjective ROS Limited/Unobtainable: Yes Constitutional: Denies: fever Neurologic: Reports: other - on restraint Allergies: Coded Allergies: UNABLE TO ASSESS (Unverified , 06/18/19) Objective Vital Signs Last 24 Hour Vital Signs Date Time Temp Pulse Resp B/P (MAP) Pulse Ox O2 Delivery O2 Flow Rate FiO2 07/25/19 09:26 100 116/74 07/25/19 09:26 116/74 07/25/19 09:25 116/74 07/25/19 06:00 116/74 07/25/19 04:00 100 07/25/19 04:00 97.7 99 20 116/74 (88) 96 07/25/19 00:00 97.5 86 20 146/84 (104) 95 07/25/19 00:00 89 07/24/19 23:50 125/79 07/24/19 21:00 Nasal Cannula 3.0 07/24/19 20:40 96 Nasal Cannula 2.0 28 07/24/19 20:00 86 07/24/19 20:00 97.7 83 20 125/79 (94) 96 07/24/19 18:07 114/76 07/24/19 18:07 114/76 07/24/19 16:00 85 07/24/19 16:00 97.5 83 16 114/76 (89) 96 07/24/19 12:05 110/70 07/24/19 12:00 97.6 85 17 110/70 (83) 95 07/24/19 12:00 85 Height (Feet): 5 Height (Inches): 8.00 Weight (Pounds): 142 General Appearance: no acute distress HEENT: mucous membranes moist Respiratory/Chest: lungs clear Cardiovascular: tachycardia Abdomen: soft, non tender, other - GT feeding Genitourinary: other - condom catheter Extremities: no edema Neurologic/Psychiatric: aphasia, other - R hemiplegia Microbiology Date/Time Source Procedure Growth Status 07/24/19 18:40 Urine,Clean Catch Urine Culture - Preliminary Resulted Laboratory Tests Test 07/24/19 11:10 07/24/19 18:40 07/25/19 05:40 White Blood Count 14.0 K/UL (4.8-10.8) H Red Blood Count 4.49 M/UL (4.70-6.10) L Hemoglobin 14.1 G/DL (14.2-18.0) L Hematocrit 41.3 % (42.0-52.0) L Mean Corpuscular Volume 92 FL (80-99) Mean Corpuscular Hemoglobin 31.4 PG (27.0-31.0) H Mean Corpuscular Hemoglobin Concent 34.2 G/DL (32.0-36.0) Red Cell Distribution Width 11.9 % (11.6-14.8) Platelet Count 183 K/UL (150-450) Mean Platelet Volume 6.5 FL (6.5-10.1) Neutrophils (%) (Auto) 67.9 % (45.0-75.0) Lymphocytes (%) (Auto) 23.4 % (20.0-45.0) Monocytes (%) (Auto) 5.2 % (1.0-10.0) Eosinophils (%) (Auto) 3.0 % (0.0-3.0) Basophils (%) (Auto) 0.6 % (0.0-2.0) Urine Color Yellow Urine Appearance Cloudy Urine pH 6 (4.5-8.0) Urine Specific [place] 1.015 (1.005-1.035) Urine Protein 1+ (NEGATIVE) H Urine Glucose (UA) Negative (NEGATIVE) Urine Ketones Negative (NEGATIVE) Urine Blood 2+ (NEGATIVE) H Urine Nitrite Positive (NEGATIVE) H Urine Bilirubin Negative (NEGATIVE) Urine Urobilinogen Normal MG/DL (0.0-1.0) Urine Leukocyte Esterase 3+ (NEGATIVE) H Urine RBC 5-10 /HPF (0 - 0) H Urine WBC 10-15 /HPF (0 - 0) H Urine Squamous Epithelial Cells Few /LPF (NONE/OCC) Urine Bacteria Many /HPF (NONE) H Sodium Level 162 MMOL/L (136-145) *H Potassium Level 4.6 MMOL/L (3.5-5.1) Chloride Level 124 MMOL/L (98-107) H Carbon Dioxide Level 31 MMOL/L (21-32) Anion Gap 8 mmol/L (5-15) Blood Urea Nitrogen 86 mg/dL (7-18) H Creatinine 1.4 MG/DL (0.55-1.30) H Estimat Glomerular Filtration Rate mL/min (>60) Glucose Level 229 MG/DL (74-106) H Calcium Level 9.7 MG/DL (8.5-10.1) Current Medications Medications (Trade) Dose Ordered Sig/Leonor Route PRN Reason Start Time Stop Time Status Last Admin Dose Admin Acetaminophen (Tylenol) 650 mg Q4H PRN NG Mild Pain/Temp > 100.5 07/22/19 14:59 08/21/19 14:58 Amlodipine Besylate (Norvasc) 5 mg DAILY NG 07/24/19 09:00 07/25/19 13:29 07/25/19 09:26 Insulin Aspart (NovoLOG) No Dose Q6HR SUBQ 07/22/19 18:00 08/03/19 17:59 07/24/19 23:49 Lisinopril (PriniviL) 20 mg DAILY NG 07/25/19 09:00 08/17/19 20:59 07/25/19 09:25 Loperamide HCl (Imodium) 2 mg Q6H PRN NG Diarrhea 07/22/19 14:59 08/21/19 14:58 Metformin HCl (Glucophage) 500 mg BID NG 07/22/19 18:00 08/14/19 14:59 07/25/19 09:25 Minoxidil (Loniten) 2.5 mg Q4H PRN NG bp over 160 syst 07/22/19 14:59 08/21/19 14:58 Minoxidil (Loniten) 10 mg TWICE A DAY NG 07/22/19 18:00 08/06/19 17:59 07/25/19 09:26 Nitroglycerin (Nitro-Bid) 1 inch Q6HR TOPIC 07/22/19 18:00 07/31/19 20:59 07/25/19 06:00 Bob Gilmore MD Jul 25, 2019 09:57
[2019-07-25] MEDS ORDERED: cefTRIAXone 1 GM in D5W 55 ML IVPB SCH (11:00)
[2019-07-25 12:00] VITALS: BP 140/84
--- NOTE | 2019-07-25 12:24 | General Progress Note ---
Assessment/Plan Problem List: (1) Cellulitis of right hand ICD Codes: L03.113 - Cellulitis of right upper limb SNOMED: 39153499 (2) Altered level of consciousness ICD Codes: R40.4 - Transient alteration of awareness SNOMED: 4680848 (3) Sepsis ICD Codes: A41.9 - Sepsis, unspecified organism SNOMED: 54293808 Qualifiers: Qualified Codes: A41.9 - Sepsis, unspecified organism (4) Left middle cerebral artery stroke ICD Codes: I63.512 - Cerebral infarction due to unspecified occlusion or stenosis of left middle cerebral artery SNOMED: 424781033 (5) Left carotid artery occlusion ICD Codes: I65.22 - Occlusion and stenosis of left carotid artery SNOMED: 822254157283287 (6) Hypernatremia Assessment & Plan: better ICD Codes: E87.0 - Hyperosmolality and hypernatremia SNOMED: 726232412 (7) Hypokalemia Assessment & Plan: better ICD Codes: E87.6 - Hypokalemia SNOMED: 03947381 (8) DM (diabetes mellitus) ICD Codes: E11.9 - Type 2 diabetes mellitus without complications SNOMED: 08887296 (9) ARF (acute renal failure) Assessment & Plan: ok ICD Codes: N17.9 - Acute kidney failure, unspecified SNOMED: 38712575 (10) Hypertension ICD Codes: I10 - Essential (primary) hypertension SNOMED: 31831780 (11) Aspiration pneumonia ICD Codes: J69.0 - Pneumonitis due to inhalation of food and vomit SNOMED: 815129472 (12) UTI (urinary tract infection) ICD Codes: N39.0 - Urinary tract infection, site not specified SNOMED: 02450524 Status: stable, unchanged Assessment/Plan: IV D5W stool for c diff continue ASA TF SSI cont Lisinopril cont Metformin Discussed with RN abxs Subjective Allergies: Coded Allergies: UNABLE TO ASSESS (Unverified , 06/18/19) Subjective In NAD Objective Last 24 Hour Vital Signs Date Time Temp Pulse Resp B/P (MAP) Pulse Ox O2 Delivery O2 Flow Rate FiO2 07/25/19 12:08 116/74 07/25/19 09:26 100 116/74 07/25/19 09:26 116/74 07/25/19 09:25 116/74 07/25/19 09:00 Nasal Cannula 3.0 07/25/19 06:00 116/74 07/25/19 04:00 100 07/25/19 04:00 97.7 99 20 116/74 (88) 96 07/25/19 00:00 97.5 86 20 146/84 (104) 95 07/25/19 00:00 89 07/24/19 23:50 125/79 07/24/19 21:00 Nasal Cannula 3.0 07/24/19 20:40 96 Nasal Cannula 2.0 28 07/24/19 20:00 86 07/24/19 20:00 97.7 83 20 125/79 (94) 96 07/24/19 18:07 114/76 07/24/19 18:07 114/76 07/24/19 16:00 85 07/24/19 16:00 97.5 83 16 114/76 (89) 96 Intake and Output 07/24/19 07/25/19 19:00 07:00 Output Total 1400 ml 650 ml Balance -1400 ml -650 ml Output Urine Total 1400 ml 650 ml Laboratory Tests 07/24/19 18:40: Urine Color Yellow, Urine Appearance Cloudy, Urine pH 6, Urine Specific [place] 1.015, Urine Protein 1+H, Urine Glucose (UA) Negative, Urine Ketones Negative, Urine Blood 2+H, Urine Nitrite PositiveH, Urine Bilirubin Negative, Urine Urobilinogen Normal, Urine Leukocyte Esterase 3+H, Urine RBC 5-10H, Urine WBC 10 -15H, Urine Squamous Epithelial Cells Few, Urine Bacteria ManyH 07/25/19 05:40: Sodium Level 162*H, Potassium Level 4.6, Chloride Level 124H, Carbon Dioxide Level 31, Anion Gap 8, Blood Urea Nitrogen 86H, Creatinine 1.4H, Estimat Glomerular Filtration Rate , Glucose Level 229H, Calcium Level 9.7 07/25/19 12:10: Sodium Level [Pending], Potassium Level [Pending], Chloride Level [Pending], Carbon Dioxide Level [Pending], Blood Urea Nitrogen [Pending], Creatinine [ Pending], Estimat Glomerular Filtration Rate [Pending], Glucose Level [Pending] , Calcium Level [Pending], White Blood Count [Pending], Red Blood Count [Pending ], Hemoglobin [Pending], Hematocrit [Pending], Mean Corpuscular Volume [Pending] , Mean Corpuscular Hemoglobin [Pending], Mean Corpuscular Hemoglobin Concent [ Pending], Red Cell Distribution Width [Pending], Platelet Count [Pending], Mean Platelet Volume [Pending], Neutrophils (%) (Auto) [Pending], Lymphocytes (%) ( Auto) [Pending], Monocytes (%) (Auto) [Pending], Eosinophils (%) (Auto) [Pending ], Basophils (%) (Auto) [Pending] Height (Feet): 5 Height (Inches): 8.00 Weight (Pounds): 142 Cardiovascular: normal rate Respiratory/Chest: rhonchi - bilaterally Edema: no edema noted Generalized Kaz Gilmore MD Jul 25, 2019 12:24
[2019-07-25 12:32] LABS: HEMATOCRIT 43.6 % (42.0-52.0); HEMOGLOBIN 14.9 G/DL (14.2-18.0); MEAN CORPUSCULAR VOLUME 92 FL (80-99); PLATELET COUNT 193 K/UL (150-450); RED BLOOD COUNT 4.75 M/UL (4.70-6.10); RED CELL DISTRIBUTION WIDTH 12.2 % (11.6-14.8)
[2019-07-25 12:38] LABS: ANION GAP 10 mmol/L (5-15); BLOOD UREA NITROGEN 87 mg/dL (7-18); CALCIUM 9.9 MG/DL (8.5-10.1); CARBON DIOXIDE 29 MMOL/L (21-32); CHLORIDE 123 MMOL/L (98-107); CREATININE 1.5 MG/DL (0.55-1.30); POTASSIUM 4.5 MMOL/L (3.5-5.1); WHITE BLOOD COUNT 28.7 K/UL (4.8-10.8)
[2019-07-25 13:03] LABS: SODIUM 162 MMOL/L (136-145)
[2019-07-25 16:00] VITALS: BP 138/93
--- NOTE | 2019-07-25 19:58 | NUR ---
NURSE NOTES: received pt from JUSTINO Cheema. Pt is awake and resting in bed in no acute distress, on nasal cannula 3L. HOB elevated at high Rodriguez's. Iv site intact. Bed locked in lowest position, with wrist restraint on 2 finger lengths space, bed alarm on, call light within reach. will continue with plan of care.
[2019-07-25 20:00] VITALS: BP 144/72
--- NOTE | 2019-07-25 22:20 | General Progress Note ---
Assessment/Plan Status: stable, unchanged Assessment/Plan: Assessment - Acute CVA - AMS - Dysphagia - arrhythmia - free water deficit - UTI Recommendations - IVF - Abx - monitor labs - follow BM pattern - GT feeds - vital AF - rate per RD rec - abx per ID Subjective Allergies: Coded Allergies: UNABLE TO ASSESS (Unverified , 06/18/19) Subjective above noted tolerating TF Labs noted HIgh Na and WBC Objective Last 24 Hour Vital Signs Date Time Temp Pulse Resp B/P (MAP) Pulse Ox O2 Delivery O2 Flow Rate FiO2 07/25/19 18:00 138/93 07/25/19 18:00 138/93 07/25/19 16:00 98.1 72 18 138/93 (108) 96 07/25/19 16:00 114 07/25/19 12:08 116/74 07/25/19 12:00 96.9 67 19 140/84 (102) 95 07/25/19 12:00 117 07/25/19 09:26 100 116/74 07/25/19 09:26 116/74 07/25/19 09:25 116/74 07/25/19 09:00 Nasal Cannula 3.0 07/25/19 08:00 113 07/25/19 08:00 98.1 54 18 140/97 (111) 93 07/25/19 06:00 116/74 07/25/19 04:00 100 07/25/19 04:00 97.7 99 20 116/74 (88) 96 07/25/19 00:00 97.5 86 20 146/84 (104) 95 07/25/19 00:00 89 07/24/19 23:50 125/79 Intake and Output 07/24/19 07/25/19 19:00 07:00 Output Total 1400 ml 650 ml Balance -1400 ml -650 ml Output Urine Total 1400 ml 650 ml Laboratory Tests 07/25/19 05:40: Sodium Level 162*H, Potassium Level 4.6, Chloride Level 124H, Carbon Dioxide Level 31, Anion Gap 8, Blood Urea Nitrogen 86H, Creatinine 1.4H, Estimat Glomerular Filtration Rate , Glucose Level 229H, Calcium Level 9.7 07/25/19 12:10: Sodium Level 162*H, Potassium Level 4.5, Chloride Level 123H, Carbon Dioxide Level 29, Anion Gap 10, Blood Urea Nitrogen 87H, Creatinine 1.5H, Estimat Glomerular Filtration Rate , Glucose Level 207H, Calcium Level 9.9, White Blood Count 28.7#*H, Red Blood Count 4.75, Hemoglobin 14.9, Hematocrit 43.6, Mean Corpuscular Volume 92, Mean Corpuscular Hemoglobin 31.3H, Mean Corpuscular Hemoglobin Concent 34.1, Red Cell Distribution Width 12.2, Platelet Count 193, Mean Platelet Volume 6.6, Neutrophils (%) (Auto) , Lymphocytes (%) (Auto) , Monocytes (%) (Auto) , Eosinophils (%) (Auto) , Basophils (%) (Auto) , Differential Total Cells Counted 100, Neutrophils % (Manual) 84H, Lymphocytes % (Manual) 13L, Monocytes % (Manual) 3, Eosinophils % (Manual) 0, Basophils % ( Manual) 0, Band Neutrophils 0, Platelet Estimate Adequate, Platelet Morphology Normal, Red Blood Cell Morphology Normal Height (Feet): 5 Height (Inches): 8.00 Weight (Pounds): 142 Objective Elderly man NCAT supple Coarse BS RR abd soft no edema Barb Lee MD Jul 25, 2019 22:20
[2019-07-26] VITALS: BP 132/100
[2019-07-26 04:00] VITALS: BP 147/78
[2019-07-26] MEDS: NovoLOG Insulin Flexpen SUBQ SCH ×4 (05:48→17:48)
[2019-07-26] MEDS: Nitroglycerin 2% oint pkt TOPIC SCH ×4 (05:55→17:49)
--- NOTE | 2019-07-26 07:05 | NUR ---
HAND-OFF: Report given to JUSTINO Cheema. Pt is awake and resting in bed in no acute distress. Endorsed plan of care.
[2019-07-26 07:44] LABS: HEMATOCRIT 40.1 % (42.0-52.0); HEMOGLOBIN 13.6 G/DL (14.2-18.0); MEAN CORPUSCULAR VOLUME 92 FL (80-99); PLATELET COUNT 165 K/UL (150-450); RED BLOOD COUNT 4.35 M/UL (4.70-6.10); RED CELL DISTRIBUTION WIDTH 12.2 % (11.6-14.8)
[2019-07-26 08:00] VITALS: BP 163/69
[2019-07-26 08:01] LABS: WHITE BLOOD COUNT 32.5 K/UL (4.8-10.8)
--- NOTE | 2019-07-26 08:32 | NUR ---
CASE MANAGEMENT:REVIEW 07/26/19 SI: ACUTE CVA. PNA. UTI S/P PEG 97.9 91 26 147/78 95% ON 3L/NC WBC+32.5 NA+162 BUN+87 CR+1.5 IS: IVF@100/HR IV ROCEPHIN Q24 LISINOPRIL GT QD NORVASC GT QD METFORMIN GT BID MINOXIDIL GT BID NITRO 1" Q6HRS : TELEMETRY STATUS PLAN: URINE CX FINAL RESULTS PENDING
[2019-07-26] MEDS: metFORMIN 500mg tab NG SCH ×2 (09:00→17:48)
[2019-07-26] MEDS: Lisinopril 20mg tab NG SCH (09:43)
[2019-07-26] MEDS: Minoxidil 10mg tab NG SCH ×2 (09:44→17:48)
--- NOTE | 2019-07-26 09:52 | Infectious Diseases Prog Note ---
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 Aphasia R hemiplegia Leukocytosis Pyuria, UTI RECOMMENDATION: Discontinue Rocephin Satrt om Meropenem F/U CBC, CXR Subjective ROS Limited/Unobtainable: Yes Constitutional: Denies: fever Respiratory: Reports: other - had vomiting & aspiration yesterday Gastrointestinal/Abdominal: Reports: constipation, other - NPO Allergies: Coded Allergies: UNABLE TO ASSESS (Unverified , 06/18/19) Objective Vital Signs Last 24 Hour Vital Signs Date Time Temp Pulse Resp B/P (MAP) Pulse Ox O2 Delivery O2 Flow Rate FiO2 07/26/19 09:44 121/61 07/26/19 09:43 121/61 07/26/19 08:23 Nasal Cannula 3.0 07/26/19 05:55 121/61 07/26/19 04:00 91 07/26/19 04:00 97.9 91 26 147/78 (101) 95 07/26/19 00:00 97.7 96 24 132/100 (111) 95 07/26/19 00:00 132/90 07/26/19 00:00 96 07/25/19 21:00 Nasal Cannula 3.0 07/25/19 20:00 97.7 118 24 144/72 (96) 96 07/25/19 20:00 118 07/25/19 18:00 138/93 07/25/19 18:00 138/93 07/25/19 16:00 98.1 72 18 138/93 (108) 96 07/25/19 16:00 114 07/25/19 12:08 116/74 07/25/19 12:00 96.9 67 19 140/84 (102) 95 07/25/19 12:00 117 Height (Feet): 5 Height (Inches): 8.00 Weight (Pounds): 142 General Appearance: no acute distress HEENT: mucous membranes moist Respiratory/Chest: lungs clear Cardiovascular: normal rate Abdomen: soft, non tender, other - GT in place Extremities: no edema Neurologic/Psychiatric: aphasia, other - R hemiplegia Microbiology Date/Time Source Procedure Growth Status 07/24/19 18:40 Urine,Clean Catch Urine Culture - Preliminary Gram Negative Bacillus 1 Resulted Laboratory Tests Test 07/25/19 12:10 07/26/19 05:28 White Blood Count 28.7 K/UL (4.8-10.8) #*H 32.5 K/UL (4.8-10.8) *H Red Blood Count 4.75 M/UL (4.70-6.10) 4.35 M/UL (4.70-6.10) L Hemoglobin 14.9 G/DL (14.2-18.0) 13.6 G/DL (14.2-18.0) L Hematocrit 43.6 % (42.0-52.0) 40.1 % (42.0-52.0) L Mean Corpuscular Volume 92 FL (80-99) 92 FL (80-99) Mean Corpuscular Hemoglobin 31.3 PG (27.0-31.0) H 31.3 PG (27.0-31.0) H Mean Corpuscular Hemoglobin Concent 34.1 G/DL (32.0-36.0) 34.0 G/DL (32.0-36.0) Red Cell Distribution Width 12.2 % (11.6-14.8) 12.2 % (11.6-14.8) Platelet Count 193 K/UL (150-450) 165 K/UL (150-450) Mean Platelet Volume 6.6 FL (6.5-10.1) 7.3 FL (6.5-10.1) Neutrophils (%) (Auto) % (45.0-75.0) % (45.0-75.0) Lymphocytes (%) (Auto) % (20.0-45.0) % (20.0-45.0) Monocytes (%) (Auto) % (1.0-10.0) % (1.0-10.0) Eosinophils (%) (Auto) % (0.0-3.0) % (0.0-3.0) Basophils (%) (Auto) % (0.0-2.0) % (0.0-2.0) Differential Total Cells Counted 100 Neutrophils % (Manual) 84 % (45-75) H Pending Lymphocytes % (Manual) 13 % (20-45) L Pending Monocytes % (Manual) 3 % (1-10) Eosinophils % (Manual) 0 % (0-3) Basophils % (Manual) 0 % (0-2) Band Neutrophils 0 % (0-8) Platelet Estimate Adequate Pending Platelet Morphology Normal Pending Red Blood Cell Morphology Normal Sodium Level 162 MMOL/L (136-145) *H Potassium Level 4.5 MMOL/L (3.5-5.1) Chloride Level 123 MMOL/L (98-107) H Carbon Dioxide Level 29 MMOL/L (21-32) Anion Gap 10 mmol/L (5-15) Blood Urea Nitrogen 87 mg/dL (7-18) H Creatinine 1.5 MG/DL (0.55-1.30) H Estimat Glomerular Filtration Rate mL/min (>60) Glucose Level 207 MG/DL (74-106) H Calcium Level 9.9 MG/DL (8.5-10.1) Current Medications Medications (Trade) Dose Ordered Sig/Leonor Route PRN Reason Start Time Stop Time Status Last Admin Dose Admin Acetaminophen (Tylenol) 650 mg Q4H PRN NG Mild Pain/Temp > 100.5 07/22/19 14:59 08/21/19 14:58 Ceftriaxone Sodium 1 gm/ Dextrose 55 ml @ 110 mls/hr Q24H IVPB 07/25/19 11:00 08/01/19 10:59 07/25/19 11:00 Dextrose 1,000 ml @ 100 mls/hr Q10H IV 07/25/19 12:00 08/24/19 11:59 07/26/19 08:21 Insulin Aspart (NovoLOG) No Dose Q6HR SUBQ 07/22/19 18:00 08/03/19 17:59 07/26/19 05:48 Lisinopril (PriniviL) 20 mg DAILY NG 07/25/19 09:00 08/17/19 20:59 07/26/19 09:43 Loperamide HCl (Imodium) 2 mg Q6H PRN NG Diarrhea 07/22/19 14:59 08/21/19 14:58 Metformin HCl (Glucophage) 500 mg BID NG 07/22/19 18:00 08/14/19 14:59 07/26/19 09:00 Minoxidil (Loniten) 2.5 mg Q4H PRN NG bp over 160 syst 07/22/19 14:59 08/21/19 14:58 Minoxidil (Loniten) 10 mg TWICE A DAY NG 07/22/19 18:00 08/06/19 17:59 07/26/19 09:44 Nitroglycerin (Nitro-Bid) 1 inch Q6HR TOPIC 07/22/19 18:00 07/31/19 20:59 07/26/19 05:55 Bob Gilmore MD Jul 26, 2019 09:52
[2019-07-26] MEDS: Meropenem 1 GM in NS 55 ML IVPB SCH ×2 (10:00→20:48)
[2019-07-26 12:00] VITALS: BP 144/113
--- NOTE | 2019-07-26 12:51 | NUR ---
RADIOLOGY DEPT., CHEST X-RAY DONE.-P.DYE
--- NOTE | 2019-07-26 13:34 | Diagnostic Imaging Report ---
Indication: Cough Technique: One view of the chest Comparison: 07/24/2019 Findings: Infiltrate is seen at the right lung base and possibly in the inferior right upper lobe. The left lung and bilateral pleural spaces are clear. Calcifications are again demonstrated in the left axilla Impression: Developing infiltrates in the right lung, as described, likely pneumonia
--- NOTE | 2019-07-26 14:07 | NUR ---
RADIOLOGY DEPT., ABDOMEN X-RAY PERFORMED.-P.DYE
--- NOTE | 2019-07-26 14:36 | Diagnostic Imaging Report ---
Indication: Abdominal pain Technique: Supine view of the abdomen Comparison: 06/28/2019 Findings: Previously demonstrated nasogastric tube is been removed. There is now a gastrostomy. Bowel gas pattern is unremarkable. No masses or unusual calcifications are demonstrated. Fairly dense stool is seen in the colon Impression: No acute process
--- NOTE | 2019-07-26 14:39 | General Progress Note ---
Assessment/Plan Problem List: (1) Cellulitis of right hand ICD Codes: L03.113 - Cellulitis of right upper limb SNOMED: 90092962 (2) Altered level of consciousness ICD Codes: R40.4 - Transient alteration of awareness SNOMED: 0518764 (3) Sepsis ICD Codes: A41.9 - Sepsis, unspecified organism SNOMED: 27589810 Qualifiers: Qualified Codes: A41.9 - Sepsis, unspecified organism (4) Left middle cerebral artery stroke ICD Codes: I63.512 - Cerebral infarction due to unspecified occlusion or stenosis of left middle cerebral artery SNOMED: 298971830 (5) Left carotid artery occlusion ICD Codes: I65.22 - Occlusion and stenosis of left carotid artery SNOMED: 515485217110879 (6) Hypernatremia Assessment & Plan: better ICD Codes: E87.0 - Hyperosmolality and hypernatremia SNOMED: 169713046 (7) Hypokalemia Assessment & Plan: better ICD Codes: E87.6 - Hypokalemia SNOMED: 35081690 (8) DM (diabetes mellitus) ICD Codes: E11.9 - Type 2 diabetes mellitus without complications SNOMED: 79339730 (9) ARF (acute renal failure) Assessment & Plan: ok ICD Codes: N17.9 - Acute kidney failure, unspecified SNOMED: 64915916 (10) Hypertension ICD Codes: I10 - Essential (primary) hypertension SNOMED: 96911063 (11) Aspiration pneumonia ICD Codes: J69.0 - Pneumonitis due to inhalation of food and vomit SNOMED: 905010117 (12) UTI (urinary tract infection) ICD Codes: N39.0 - Urinary tract infection, site not specified SNOMED: 52812026 Status: stable, unchanged Assessment/Plan: IV D5W Hold TF continue ASA TF SSI cont Lisinopril cont Metformin Discussed with RN abxs discussed with Dr Lee and dr Kimmy Gilmore Subjective Allergies: Coded Allergies: UNABLE TO ASSESS (Unverified , 06/18/19) Subjective aspirated Objective Last 24 Hour Vital Signs Date Time Temp Pulse Resp B/P (MAP) Pulse Ox O2 Delivery O2 Flow Rate FiO2 07/26/19 12:00 97.7 96 32 144/113 (123) 95 07/26/19 12:00 86 2/11/20 09:44 121/61 07/26/19 09:43 121/61 07/26/19 08:23 Nasal Cannula 3.0 07/26/19 08:00 91 07/26/19 08:00 97.7 86 22 163/69 (100) 94 07/26/19 05:55 121/61 07/26/19 04:00 91 07/26/19 04:00 97.9 91 26 147/78 (101) 95 07/26/19 00:00 97.7 96 24 132/100 (111) 95 07/26/19 00:00 132/90 07/26/19 00:00 96 07/25/19 21:00 Nasal Cannula 3.0 07/25/19 20:00 97.7 118 24 144/72 (96) 96 07/25/19 20:00 118 07/25/19 18:00 138/93 07/25/19 18:00 138/93 07/25/19 16:00 98.1 72 18 138/93 (108) 96 07/25/19 16:00 114 Intake and Output 07/25/19 07/26/19 19:00 07:00 Output Total 1100 ml Balance -1100 ml Output Urine Total 1100 ml Laboratory Tests 07/26/19 05:28: White Blood Count 32.5*H, Red Blood Count 4.35L, Hemoglobin 13.6L, Hematocrit 40.1L, Mean Corpuscular Volume 92, Mean Corpuscular Hemoglobin 31.3H, Mean Corpuscular Hemoglobin Concent 34.0, Red Cell Distribution Width 12.2, Platelet Count 165, Mean Platelet Volume 7.3, Neutrophils (%) (Auto) , Lymphocytes (%) ( Auto) , Monocytes (%) (Auto) , Eosinophils (%) (Auto) , Basophils (%) (Auto) , Differential Total Cells Counted 100, Neutrophils % (Manual) 74, Lymphocytes % ( Manual) 23, Monocytes % (Manual) 2, Eosinophils % (Manual) 0, Basophils % ( Manual) 1, Band Neutrophils 0, Platelet Estimate Adequate, Platelet Morphology Normal, Red Blood Cell Morphology Normal Height (Feet): 5 Height (Inches): 8.00 Weight (Pounds): 142 Cardiovascular: normal rate Respiratory/Chest: rhonchi - bilaterally Kaz Gilmore MD Jul 26, 2019 14:39
[2019-07-26 16:00] VITALS: BP 113/60
--- NOTE | 2019-07-26 19:15 | NUR ---
NURSE NOTES: Received pt from JUSTINO Cheema. Pt is awake and resting in bed in no acute distress, on nasal cannula oxygen support. Iv site intact and patent. HOB in high perez position. Left wrist restraint on with 2 finger lengths gap. Bed locked in lowest position, bed alarm on, call light within reach. Will continue with plan of care.
[2019-07-26 20:00] VITALS: BP 104/61
--- NOTE | 2019-07-26 20:14 | General Progress Note ---
Assessment/Plan Status: stable, unchanged Assessment/Plan: Assessment - Acute CVA - AMS - Dysphagia - s/p GT - leukocytosis, suspected aspiration - arrhythmia - free water deficit, hypernatremia - UTI Recommendations - IVF - D5 W based - monitor labs - follow BM pattern - GT feeds on hold - Hold metformin when NPO - abx per ID Subjective Allergies: Coded Allergies: UNABLE TO ASSESS (Unverified , 06/18/19) Subjective above noted off of TF d/w RN regurgitation and aspiration noted Objective Last 24 Hour Vital Signs Date Time Temp Pulse Resp B/P (MAP) Pulse Ox O2 Delivery O2 Flow Rate FiO2 07/26/19 17:49 113/60 07/26/19 17:48 113/60 07/26/19 16:00 97.5 89 20 113/60 (77) 94 07/26/19 16:00 84 07/26/19 12:00 97.7 96 32 144/113 (123) 95 07/26/19 12:00 144/113 07/26/19 12:00 86 07/26/19 09:44 121/61 07/26/19 09:43 121/61 07/26/19 08:23 Nasal Cannula 3.0 07/26/19 08:00 91 07/26/19 08:00 97.7 86 22 163/69 (100) 94 07/26/19 05:55 121/61 07/26/19 04:00 91 07/26/19 04:00 97.9 91 26 147/78 (101) 95 07/26/19 00:00 97.7 96 24 132/100 (111) 95 07/26/19 00:00 132/90 07/26/19 00:00 96 07/25/19 21:00 Nasal Cannula 3.0 Intake and Output 07/25/19 07/26/19 19:00 07:00 Output Total 1100 ml Balance -1100 ml Output Urine Total 1100 ml Laboratory Tests 07/26/19 05:28: White Blood Count 32.5*H, Red Blood Count 4.35L, Hemoglobin 13.6L, Hematocrit 40.1L, Mean Corpuscular Volume 92, Mean Corpuscular Hemoglobin 31.3H, Mean Corpuscular Hemoglobin Concent 34.0, Red Cell Distribution Width 12.2, Platelet Count 165, Mean Platelet Volume 7.3, Neutrophils (%) (Auto) , Lymphocytes (%) ( Auto) , Monocytes (%) (Auto) , Eosinophils (%) (Auto) , Basophils (%) (Auto) , Differential Total Cells Counted 100, Neutrophils % (Manual) 74, Lymphocytes % ( Manual) 23, Monocytes % (Manual) 2, Eosinophils % (Manual) 0, Basophils % ( Manual) 1, Band Neutrophils 0, Platelet Estimate Adequate, Platelet Morphology Normal, Red Blood Cell Morphology Normal Height (Feet): 5 Height (Inches): 8.00 Weight (Pounds): 142 Objective Elderly man awake, looks at NCAT supple Coarse ronchi RR abd soft, (+) GT no edema Barb Lee MD Jul 26, 2019 20:14
[2019-07-26] MEDS: Pantoprazole Inj IVP SCH (20:48)
[2019-07-27] VITALS: BP 101/65
[2019-07-27] MEDS: NovoLOG Insulin Flexpen SUBQ SCH ×4 (00:13→18:00)
[2019-07-27 04:00] VITALS: BP 110/60
--- NOTE | 2019-07-27 04:42 | NUR ---
Notified Dr. Melgar of pt episode of 13 beats vtach.
[2019-07-27] MEDS: Nitroglycerin 2% oint pkt TOPIC SCH ×4 (06:25→18:14)
--- NOTE | 2019-07-27 07:27 | NUR ---
HAND-OFF: Report given to JUTSINO Ortiz. Endorsed plan of care.
--- NOTE | 2019-07-27 07:31 | NUR ---
NURSE NOTES: Pt in bed in low position, call light next to patient, pt was repositioned, Ox1, semi non-verbal, IV intact, no G tube feeding running per MD, no metformin to be given due NPO and no feed status related to prior event of aspiration, bed alarm on, pt has right side paralysis, no s/s of distress or sob noted.
[2019-07-27 07:50] LABS: HEMATOCRIT 36.7 % (42.0-52.0); HEMOGLOBIN 12.7 G/DL (14.2-18.0); MEAN CORPUSCULAR VOLUME 92 FL (80-99); PLATELET COUNT 148 K/UL (150-450); RED BLOOD COUNT 4.01 M/UL (4.70-6.10); RED CELL DISTRIBUTION WIDTH 11.9 % (11.6-14.8); WHITE BLOOD COUNT 21.7 K/UL (4.8-10.8)
[2019-07-27 08:00] VITALS: BP 99/56
[2019-07-27 08:48] LABS: ALANINE AMINOTRANSFERASE 25 U/L (12-78); ALBUMIN 2.6 G/DL (3.4-5.0); ALBUMIN/GLOBULIN RATIO 0.5 (1.0-2.7); ALKALINE PHOSPHATASE 68 U/L (46-116); ANION GAP 9 mmol/L (5-15); ASPARTATE AMINO TRANSFERASE 30 U/L (15-37); BILIRUBIN,TOTAL 0.6 MG/DL (0.2-1.0); BLOOD UREA NITROGEN 78 mg/dL (7-18); CALCIUM 8.6 MG/DL (8.5-10.1); CARBON DIOXIDE 28 MMOL/L (21-32); CHLORIDE 116 MMOL/L (98-107); CREATININE 1.6 MG/DL (0.55-1.30); POTASSIUM 3.7 MMOL/L (3.5-5.1); SODIUM 152 MMOL/L (136-145)
--- NOTE | 2019-07-27 09:04 | NUR ---
CASE MANAGEMENT:REVIEW 07/27/19 SI: ACUTE CVA. PNA. UTI S/P PEG 97.0 73 22 99/56 98% ON 3L/NC WBC+21.7 PLT-148 NA+152 BUN+78 CR+1.6 IS: IVF@100/HR IV MEROPENEM Q12 LISINOPRIL GT QD NORVASC GT QD METFORMIN GT BID MINOXIDIL GT BID NITRO 1" Q6HRS : TELEMETRY STATUS PLAN:
[2019-07-27] MEDS: Minoxidil 10mg tab NG SCH ×2 (09:50→18:14)
[2019-07-27] MEDS: Lisinopril 20mg tab NG SCH (09:50)
[2019-07-27] MEDS: metFORMIN 500mg tab NG SCH ×2 (09:50→18:00)
[2019-07-27] MEDS: Meropenem 1 GM in NS 55 ML IVPB SCH ×2 (09:54→21:30)
[2019-07-27] MEDS: Pantoprazole Inj IVP SCH ×2 (09:54→21:30)
[2019-07-27 12:00] VITALS: BP 115/60
--- NOTE | 2019-07-27 14:24 | Infectious Diseases Prog Note ---
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 Aphasia R hemiplegia Leukocytosis Pseudomonas UTI RECOMMENDATION: continue Meropenem Subjective ROS Limited/Unobtainable: Yes Constitutional: Denies: fever Allergies: Coded Allergies: UNABLE TO ASSESS (Unverified , 06/18/19) Objective Vital Signs Last 24 Hour Vital Signs Date Time Temp Pulse Resp B/P (MAP) Pulse Ox O2 Delivery O2 Flow Rate FiO2 07/27/19 12:00 97.2 72 20 115/60 (78) 07/27/19 12:00 115/60 07/27/19 11:46 69 07/27/19 09:50 99/56 07/27/19 09:50 99/56 07/27/19 08:03 Nasal Cannula 3.0 07/27/19 08:00 97.0 73 22 99/56 (70) 98 07/27/19 07:40 72 07/27/19 06:25 122/71 07/27/19 04:00 72 07/27/19 04:00 97.9 72 28 110/60 (77) 96 07/27/19 00:00 80 07/27/19 00:00 101/64 07/27/19 00:00 97.5 80 28 101/65 (77) 97 07/26/19 21:00 Nasal Cannula 3.0 07/26/19 20:00 95 07/26/19 20:00 97.7 95 24 104/61 (75) 94 07/26/19 17:49 113/60 07/26/19 17:48 113/60 07/26/19 16:00 97.5 89 20 113/60 (77) 94 07/26/19 16:00 84 Height (Feet): 5 Height (Inches): 8.00 Weight (Pounds): 146 General Appearance: no acute distress HEENT: mucous membranes moist Respiratory/Chest: lungs clear Cardiovascular: normal rate Abdomen: soft, non tender, other - GT in place Extremities: no edema Neurologic/Psychiatric: aphasia, other - R hemiplegia Microbiology Date/Time Source Procedure Growth Status 07/24/19 18:40 Urine,Clean Catch Urine Culture - Final Pseudomonas Aeruginosa Complete Laboratory Tests Test 07/27/19 05:26 White Blood Count 21.7 K/UL (4.8-10.8) H Red Blood Count 4.01 M/UL (4.70-6.10) L Hemoglobin 12.7 G/DL (14.2-18.0) L Hematocrit 36.7 % (42.0-52.0) L Mean Corpuscular Volume 92 FL (80-99) Mean Corpuscular Hemoglobin 31.7 PG (27.0-31.0) H Mean Corpuscular Hemoglobin Concent 34.7 G/DL (32.0-36.0) Red Cell Distribution Width 11.9 % (11.6-14.8) Platelet Count 148 K/UL (150-450) L Mean Platelet Volume 8.3 FL (6.5-10.1) Neutrophils (%) (Auto) % (45.0-75.0) Lymphocytes (%) (Auto) % (20.0-45.0) Monocytes (%) (Auto) % (1.0-10.0) Eosinophils (%) (Auto) % (0.0-3.0) Basophils (%) (Auto) % (0.0-2.0) Differential Total Cells Counted 100 Neutrophils % (Manual) 74 % (45-75) Lymphocytes % (Manual) 19 % (20-45) L Monocytes % (Manual) 3 % (1-10) Eosinophils % (Manual) 4 % (0-3) H Basophils % (Manual) 0 % (0-2) Band Neutrophils 0 % (0-8) Platelet Estimate Decreased L Platelet Morphology Normal Red Blood Cell Morphology Normal Sodium Level 152 MMOL/L (136-145) H Potassium Level 3.7 MMOL/L (3.5-5.1) Chloride Level 116 MMOL/L (98-107) H Carbon Dioxide Level 28 MMOL/L (21-32) Anion Gap 9 mmol/L (5-15) Blood Urea Nitrogen 78 mg/dL (7-18) H Creatinine 1.6 MG/DL (0.55-1.30) H Estimat Glomerular Filtration Rate 42.8 mL/min (>60) Glucose Level 154 MG/DL (74-106) H Calcium Level 8.6 MG/DL (8.5-10.1) Total Bilirubin 0.6 MG/DL (0.2-1.0) Aspartate Amino Transf (AST/SGOT) 30 U/L (15-37) Alanine Aminotransferase (ALT/SGPT) 25 U/L (12-78) Alkaline Phosphatase 68 U/L (46-116) Total Protein 7.6 G/DL (6.4-8.2) Albumin 2.6 G/DL (3.4-5.0) L Globulin 5.0 g/dL Albumin/Globulin Ratio 0.5 (1.0-2.7) L Current Medications Medications (Trade) Dose Ordered Sig/Leonor Route PRN Reason Start Time Stop Time Status Last Admin Dose Admin Acetaminophen (Tylenol) 650 mg Q4H PRN NG Mild Pain/Temp > 100.5 07/22/19 14:59 08/21/19 14:58 Dextrose 1,000 ml @ 100 mls/hr Q10H IV 07/25/19 12:00 08/24/19 11:59 07/27/19 11:40 Insulin Aspart (NovoLOG) No Dose Q6HR SUBQ 07/22/19 18:00 08/03/19 17:59 07/27/19 06:26 Lisinopril (PriniviL) 20 mg DAILY NG 07/25/19 09:00 08/17/19 20:59 07/26/19 09:43 Loperamide HCl (Imodium) 2 mg Q6H PRN NG Diarrhea 07/22/19 14:59 08/21/19 14:58 Meropenem 1 gm/ Sodium Chloride 55 ml @ 110 mls/hr Q12HR IVPB 07/26/19 10:00 07/31/19 09:59 07/27/19 09:54 Metformin HCl (Glucophage) 500 mg BID NG 07/27/19 09:00 08/14/19 14:59 Metoclopramide HCl (Reglan) 5 mg EVERY 8 HOURS NG 07/26/19 15:00 08/25/19 14:59 07/27/19 06:27 Minoxidil (Loniten) 2.5 mg Q4H PRN NG bp over 160 syst 07/22/19 14:59 08/21/19 14:58 Minoxidil (Loniten) 10 mg TWICE A DAY NG 07/22/19 18:00 08/06/19 17:59 07/26/19 17:48 Nitroglycerin (Nitro-Bid) 1 inch Q6HR TOPIC 07/22/19 18:00 07/31/19 20:59 07/27/19 06:25 Pantoprazole (Protonix) 40 mg EVERY 12 HOURS IVP 07/26/19 21:00 08/25/19 20:59 07/27/19 09:54 Bob Gilmore MD Jul 27, 2019 14:24
--- NOTE | 2019-07-27 14:26 | General Progress Note ---
Assessment/Plan Problem List: (1) Cellulitis of right hand ICD Codes: L03.113 - Cellulitis of right upper limb SNOMED: 75289343 (2) Altered level of consciousness ICD Codes: R40.4 - Transient alteration of awareness SNOMED: 6874833 (3) Sepsis ICD Codes: A41.9 - Sepsis, unspecified organism SNOMED: 21299387 Qualifiers: Qualified Codes: A41.9 - Sepsis, unspecified organism (4) Left middle cerebral artery stroke ICD Codes: I63.512 - Cerebral infarction due to unspecified occlusion or stenosis of left middle cerebral artery SNOMED: 446657375 (5) Left carotid artery occlusion ICD Codes: I65.22 - Occlusion and stenosis of left carotid artery SNOMED: 362827413402223 (6) Hypernatremia Assessment & Plan: better ICD Codes: E87.0 - Hyperosmolality and hypernatremia SNOMED: 259214007 (7) Hypokalemia Assessment & Plan: better ICD Codes: E87.6 - Hypokalemia SNOMED: 04507715 (8) DM (diabetes mellitus) ICD Codes: E11.9 - Type 2 diabetes mellitus without complications SNOMED: 12183996 (9) ARF (acute renal failure) Assessment & Plan: ok ICD Codes: N17.9 - Acute kidney failure, unspecified SNOMED: 09470094 (10) Hypertension ICD Codes: I10 - Essential (primary) hypertension SNOMED: 48976119 (11) Aspiration pneumonia ICD Codes: J69.0 - Pneumonitis due to inhalation of food and vomit SNOMED: 797236801 (12) UTI (urinary tract infection) ICD Codes: N39.0 - Urinary tract infection, site not specified SNOMED: 07286519 Status: stable, unchanged Assessment/Plan: IV D5W TF per GI continue ASA TF SSI cont Lisinopril cont Metformin Discussed with RN abxs Subjective Allergies: Coded Allergies: UNABLE TO ASSESS (Unverified , 06/18/19) Subjective In NAD Objective Last 24 Hour Vital Signs Date Time Temp Pulse Resp B/P (MAP) Pulse Ox O2 Delivery O2 Flow Rate FiO2 07/27/19 12:00 97.2 72 20 115/60 (78) 07/27/19 12:00 115/60 07/27/19 11:46 69 2/12/20 09:50 99/56 07/27/19 09:50 99/56 07/27/19 08:03 Nasal Cannula 3.0 07/27/19 08:00 97.0 73 22 99/56 (70) 98 07/27/19 07:40 72 07/27/19 06:25 122/71 07/27/19 04:00 72 07/27/19 04:00 97.9 72 28 110/60 (77) 96 07/27/19 00:00 80 07/27/19 00:00 101/64 07/27/19 00:00 97.5 80 28 101/65 (77) 97 07/26/19 21:00 Nasal Cannula 3.0 07/26/19 20:00 95 07/26/19 20:00 97.7 95 24 104/61 (75) 94 07/26/19 17:49 113/60 07/26/19 17:48 113/60 07/26/19 16:00 97.5 89 20 113/60 (77) 94 07/26/19 16:00 84 Intake and Output 07/26/19 07/27/19 19:00 07:00 Output Total 600 ml 250 ml Balance -600 ml -250 ml Output Urine Total 600 ml 250 ml # Voids 1 Laboratory Tests 07/27/19 05:26: White Blood Count 21.7H, Red Blood Count 4.01L, Hemoglobin 12.7L, Hematocrit 36.7L, Mean Corpuscular Volume 92, Mean Corpuscular Hemoglobin 31.7H, Mean Corpuscular Hemoglobin Concent 34.7, Red Cell Distribution Width 11.9, Platelet Count 148L, Mean Platelet Volume 8.3, Neutrophils (%) (Auto) , Lymphocytes (%) ( Auto) , Monocytes (%) (Auto) , Eosinophils (%) (Auto) , Basophils (%) (Auto) , Differential Total Cells Counted 100, Neutrophils % (Manual) 74, Lymphocytes % ( Manual) 19L, Monocytes % (Manual) 3, Eosinophils % (Manual) 4H, Basophils % ( Manual) 0, Band Neutrophils 0, Platelet Estimate DecreasedL, Platelet Morphology Normal, Red Blood Cell Morphology Normal, Sodium Level 152H, Potassium Level 3.7, Chloride Level 116H, Carbon Dioxide Level 28, Anion Gap 9, Blood Urea Nitrogen 78H, Creatinine 1.6H, Estimat Glomerular Filtration Rate 42.8, Glucose Level 154H, Calcium Level 8.6, Total Bilirubin 0.6, Aspartate Amino Transf (AST/SGOT) 30, Alanine Aminotransferase (ALT/SGPT) 25, Alkaline Phosphatase 68, Total Protein 7.6, Albumin 2.6L, Globulin 5.0, Albumin/Globulin Ratio 0.5L Height (Feet): 5 Height (Inches): 8.00 Weight (Pounds): 146 Cardiovascular: normal rate Respiratory/Chest: rhonchi - bilaterally Kaz Gilmore MD Jul 27, 2019 14:26
[2019-07-27 16:00] VITALS: BP 139/74
--- NOTE | 2019-07-27 19:26 | NUR ---
HAND-OFF: Report given to Princess Delaney.
--- NOTE | 2019-07-27 19:30 | NUR ---
NURSE NOTES: Received pt and report from JUSTINO Ortiz. Pt is A/Ox1. teletypesetter monitor is in placed; pt is currently SR, HR 78 w/PVCs. IV site intact, asymptomatic and patent; running D5W @100cc/hr. Pt has soft wrist restraint on Lt wrist; pulses and sensations present, skin is intact, and no swelling noted. G-tube feeding currently on hold per Dr. Lee. Bed is in the lowest position and locked. Call light and bedside table is within reach. No signs/symptoms of acute distress noted at this time. Will continue plan of care. Addendum: 07/27/19 at 2035 by Heather Abel Mai, RN Observed pt resting in bed with both eyes open.
[2019-07-27 20:00] VITALS: BP 131/74
--- NOTE | 2019-07-27 21:01 | General Progress Note ---
Assessment/Plan Status: stable, unchanged Assessment/Plan: Assessment - Acute CVA - AMS - Dysphagia - s/p GT - leukocytosis, suspected aspiration - arrhythmia - free water deficit, hypernatremia - UTI Recommendations - IVF - D5 W based - monitor labs - follow BM pattern - Hold metformin when NPO - abx per ID Subjective Allergies: Coded Allergies: UNABLE TO ASSESS (Unverified , 06/18/19) Subjective above noted Better today Na and WBC lower Objective Last 24 Hour Vital Signs Date Time Temp Pulse Resp B/P (MAP) Pulse Ox O2 Delivery O2 Flow Rate FiO2 07/27/19 18:14 139/74 07/27/19 18:14 139/74 07/27/19 16:00 97.4 18 139/74 (95) 94 07/27/19 15:26 68 07/27/19 12:00 97.2 72 20 115/60 (78) 07/27/19 12:00 115/60 07/27/19 11:46 69 07/27/19 09:50 99/56 07/27/19 09:50 99/56 07/27/19 08:03 Nasal Cannula 3.0 07/27/19 08:00 97.0 73 22 99/56 (70) 98 07/27/19 07:40 72 07/27/19 06:25 122/71 07/27/19 04:00 72 07/27/19 04:00 97.9 72 28 110/60 (77) 96 07/27/19 00:00 80 07/27/19 00:00 101/64 07/27/19 00:00 97.5 80 28 101/65 (77) 97 Intake and Output 07/26/19 07/27/19 19:00 07:00 Output Total 600 ml 250 ml Balance -600 ml -250 ml Output Urine Total 600 ml 250 ml # Voids 1 Laboratory Tests 07/27/19 05:26: White Blood Count 21.7H, Red Blood Count 4.01L, Hemoglobin 12.7L, Hematocrit 36.7L, Mean Corpuscular Volume 92, Mean Corpuscular Hemoglobin 31.7H, Mean Corpuscular Hemoglobin Concent 34.7, Red Cell Distribution Width 11.9, Platelet Count 148L, Mean Platelet Volume 8.3, Neutrophils (%) (Auto) , Lymphocytes (%) ( Auto) , Monocytes (%) (Auto) , Eosinophils (%) (Auto) , Basophils (%) (Auto) , Differential Total Cells Counted 100, Neutrophils % (Manual) 74, Lymphocytes % ( Manual) 19L, Monocytes % (Manual) 3, Eosinophils % (Manual) 4H, Basophils % ( Manual) 0, Band Neutrophils 0, Platelet Estimate DecreasedL, Platelet Morphology Normal, Red Blood Cell Morphology Normal, Sodium Level 152H, Potassium Level 3.7, Chloride Level 116H, Carbon Dioxide Level 28, Anion Gap 9, Blood Urea Nitrogen 78H, Creatinine 1.6H, Estimat Glomerular Filtration Rate 42.8, Glucose Level 154H, Calcium Level 8.6, Total Bilirubin 0.6, Aspartate Amino Transf (AST/SGOT) 30, Alanine Aminotransferase (ALT/SGPT) 25, Alkaline Phosphatase 68, Total Protein 7.6, Albumin 2.6L, Globulin 5.0, Albumin/Globulin Ratio 0.5L Height (Feet): 5 Height (Inches): 8.00 Weight (Pounds): 146 Objective Elderly man awake, looks at NCAT supple Coarse ronchi RR abd soft, (+) GT no edema Barb Lee MD Jul 27, 2019 21:01
[2019-07-28] VITALS: BP 130/73
[2019-07-28] MEDS: Nitroglycerin 2% oint pkt TOPIC SCH ×4 (00:48→17:16)
--- NOTE | 2019-07-28 03:02 | NUR ---
NURSE NOTES: Observed pt asleep in bed. No signs/symptoms of acute distress noted at this time. Will continue plan of care.
[2019-07-28 04:00] VITALS: BP 112/56
[2019-07-28] MEDS: NovoLOG Insulin Flexpen SUBQ SCH ×4 (05:36→17:13)
--- NOTE | 2019-07-28 07:31 | NUR ---
HAND-OFF: Report given to JUSTINO Crawford. Plan of care endorsed.
--- NOTE | 2019-07-28 07:35 | NUR ---
NURSE NOTES: Received report from JUSTINO Sánchez. Patient in bed resting, no active s/s cardiac, respiratory distress noticed at this time. Patient AOx0-1, SR with 1st AVB HR with 67. Endorsed G-tube feeding on hold, no n/v during the night. Patient on left soft wrist restraint, cap refill <3 sec, able to move. IV on left hand 20G, asymptomatic, patent, intact. IV fluid running as prescribed rate. Bed in lowest position, side rails upx3, call light within reach, bed alarm on. Will continue to monitor.
[2019-07-28 08:00] VITALS: BP 131/83
--- NOTE | 2019-07-28 08:17 | NUR ---
NURSE NOTES: Per Dr. Lee start tube feeding patient at rate of 25ml/h. No residual, no n/v at this time. Will continue to monitor.
[2019-07-28] MEDS: Pantoprazole Inj IVP SCH (08:18)
[2019-07-28] MEDS: Meropenem 1 GM in NS 55 ML IVPB SCH ×2 (08:19→20:56)
[2019-07-28] MEDS: Lisinopril 20mg tab NG SCH (08:19)
[2019-07-28] MEDS: Minoxidil 10mg tab NG SCH ×2 (08:19→17:16)
[2019-07-28] MEDS: metFORMIN 500mg tab NG SCH ×2 (08:21→17:16)
--- NOTE | 2019-07-28 11:30 | NUR ---
NURSE NOTES: Wound assessed with wound care nurse. Per wound care nurse, wound seems deteriorated. Picture taken, noted to have non-blanching erythema sacrum and buttocks (L)13.5cm x (W)9.5cm with and area of shearing (L)3.5cm x (W)2.5cm.
[2019-07-28 12:00] VITALS: BP 102/67
--- NOTE | 2019-07-28 12:13 | General Progress Note ---
Assessment/Plan Problem List: (1) Cellulitis of right hand ICD Codes: L03.113 - Cellulitis of right upper limb SNOMED: 65845619 (2) Altered level of consciousness ICD Codes: R40.4 - Transient alteration of awareness SNOMED: 8898577 (3) Sepsis ICD Codes: A41.9 - Sepsis, unspecified organism SNOMED: 20104117 Qualifiers: Qualified Codes: A41.9 - Sepsis, unspecified organism (4) Left middle cerebral artery stroke ICD Codes: I63.512 - Cerebral infarction due to unspecified occlusion or stenosis of left middle cerebral artery SNOMED: 609903072 (5) Left carotid artery occlusion ICD Codes: I65.22 - Occlusion and stenosis of left carotid artery SNOMED: 287584956202219 (6) Hypernatremia Assessment & Plan: better ICD Codes: E87.0 - Hyperosmolality and hypernatremia SNOMED: 150386067 (7) Hypokalemia Assessment & Plan: better ICD Codes: E87.6 - Hypokalemia SNOMED: 06209307 (8) DM (diabetes mellitus) ICD Codes: E11.9 - Type 2 diabetes mellitus without complications SNOMED: 62519288 (9) ARF (acute renal failure) Assessment & Plan: ok ICD Codes: N17.9 - Acute kidney failure, unspecified SNOMED: 04861880 (10) Hypertension ICD Codes: I10 - Essential (primary) hypertension SNOMED: 80021274 (11) Aspiration pneumonia ICD Codes: J69.0 - Pneumonitis due to inhalation of food and vomit SNOMED: 486376643 (12) UTI (urinary tract infection) ICD Codes: N39.0 - Urinary tract infection, site not specified SNOMED: 08779779 Status: stable, unchanged Assessment/Plan: decrease D5W TF per GI continue ASA TF SSI cont Lisinopril cont Metformin Discussed with RN abxs Subjective Allergies: Coded Allergies: UNABLE TO ASSESS (Unverified , 06/18/19) Subjective In NAD Objective Last 24 Hour Vital Signs Date Time Temp Pulse Resp B/P (MAP) Pulse Ox O2 Delivery O2 Flow Rate FiO2 07/28/19 10:57 97 Nasal Cannula 3.0 32 07/28/19 09:00 Nasal Cannula 3.0 07/28/19 08:19 131/83 2/13/20 08:19 131/83 07/28/19 08:00 77 07/28/19 08:00 98.1 79 18 131/83 (99) 98 07/28/19 05:38 126/61 07/28/19 04:00 97.3 67 20 112/56 (74) 95 07/28/19 04:00 74 07/28/19 00:48 130/73 07/28/19 00:00 69 07/28/19 00:00 97.7 69 19 130/73 (92) 96 07/27/19 21:00 Nasal Cannula 3.0 07/27/19 20:00 78 07/27/19 20:00 97.5 76 20 131/74 (93) 94 07/27/19 18:14 139/74 07/27/19 18:14 139/74 07/27/19 16:00 97.4 18 139/74 (95) 94 07/27/19 15:26 68 Intake and Output 07/27/19 07/28/19 19:00 07:00 Output Total 350 ml 600 ml Balance -350 ml -600 ml Output Urine Total 350 ml 600 ml Height (Feet): 5 Height (Inches): 8.00 Weight (Pounds): 146 Cardiovascular: normal rate Respiratory/Chest: rhonchi - bilaterally Edema: no edema noted Generalized Kaz Gilmore MD Jul 28, 2019 12:13
--- NOTE | 2019-07-28 12:47 | Infectious Diseases Prog Note ---
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 Aphasia R hemiplegia Leukocytosis Pseudomonas UTI RECOMMENDATION: continue Meropenem f/u CBC Subjective ROS Limited/Unobtainable: Yes Constitutional: Denies: fever Gastrointestinal/Abdominal: Reports: other - restarted on tube feeding Neurologic: Reports: other - on restraint Allergies: Coded Allergies: UNABLE TO ASSESS (Unverified , 06/18/19) Objective Vital Signs Last 24 Hour Vital Signs Date Time Temp Pulse Resp B/P (MAP) Pulse Ox O2 Delivery O2 Flow Rate FiO2 07/28/19 12:00 96.8 80 18 102/67 (79) 98 07/28/19 10:57 97 Nasal Cannula 3.0 32 07/28/19 09:00 Nasal Cannula 3.0 07/28/19 08:19 131/83 07/28/19 08:19 131/83 07/28/19 08:00 77 07/28/19 08:00 98.1 79 18 131/83 (99) 98 07/28/19 05:38 126/61 07/28/19 04:00 97.3 67 20 112/56 (74) 95 07/28/19 04:00 74 07/28/19 00:48 130/73 07/28/19 00:00 69 07/28/19 00:00 97.7 69 19 130/73 (92) 96 07/27/19 21:00 Nasal Cannula 3.0 07/27/19 20:00 78 07/27/19 20:00 97.5 76 20 131/74 (93) 94 07/27/19 18:14 139/74 07/27/19 18:14 139/74 07/27/19 16:00 97.4 18 139/74 (95) 94 07/27/19 15:26 68 Height (Feet): 5 Height (Inches): 8.00 Weight (Pounds): 146 General Appearance: no acute distress Respiratory/Chest: lungs clear Cardiovascular: normal rate Abdomen: soft, non tender, other - GT feeding Extremities: other - R hand edema Neurologic/Psychiatric: aphasia, other - R hemiplegia Current Medications Medications (Trade) Dose Ordered Sig/Leonor Route PRN Reason Start Time Stop Time Status Last Admin Dose Admin Acetaminophen (Tylenol) 650 mg Q4H PRN NG Mild Pain/Temp > 100.5 07/22/19 14:59 08/21/19 14:58 Dextrose 1,000 ml @ 50 mls/hr Q20H IV 07/28/19 12:15 08/27/19 12:14 Insulin Aspart (NovoLOG) No Dose Q6HR SUBQ 07/22/19 18:00 08/03/19 17:59 07/27/19 06:26 Lisinopril (PriniviL) 20 mg DAILY NG 07/25/19 09:00 08/17/19 20:59 07/28/19 08:19 Loperamide HCl (Imodium) 2 mg Q6H PRN NG Diarrhea 07/22/19 14:59 08/21/19 14:58 Meropenem 1 gm/ Sodium Chloride 55 ml @ 110 mls/hr Q12HR IVPB 07/26/19 10:00 07/31/19 09:59 07/28/19 08:19 Metformin HCl (Glucophage) 500 mg BID NG 07/27/19 09:00 08/14/19 14:59 07/28/19 08:21 Metoclopramide HCl (Reglan) 5 mg EVERY 8 HOURS NG 07/26/19 15:00 08/25/19 14:59 07/28/19 05:36 Minoxidil (Loniten) 2.5 mg Q4H PRN NG bp over 160 syst 07/22/19 14:59 08/21/19 14:58 Minoxidil (Loniten) 10 mg TWICE A DAY NG 07/22/19 18:00 08/06/19 17:59 07/28/19 08:19 Nitroglycerin (Nitro-Bid) 1 inch Q6HR TOPIC 07/22/19 18:00 07/31/19 20:59 07/28/19 05:38 Pantoprazole (Protonix) 40 mg EVERY 12 HOURS IVP 07/26/19 21:00 08/25/19 20:59 07/28/19 08:18 Bob Gilmore MD Jul 28, 2019 12:47
--- NOTE | 2019-07-28 13:03 | NUR ---
NURSE NOTES: Per Dr. Tano MD already spoke to primary MD, Dr. Gilmore. Per Dr. Gilmore, transfer patient to [facility]. Order noted, entered, carried out. Will continue to monitor.
--- NOTE | 2019-07-28 13:07 | NUR ---
CASE MANAGEMENT:REVIEW 07/28/19 SI: ACUTE CVA. PNA. UTI S/P PEG 96.8 80 18 102/67 98% 3L/NC IS: IVF@50/HR IV MEROPENEM Q12 LISINOPRIL GT QD NORVASC GT QD METFORMIN GT BID MINOXIDIL GT BID NITRO 1" Q6HRS : TELEMETRY STATUS PLAN:
--- NOTE | 2019-07-28 15:16 | NUR ---
RD ASSESSMENT & RECOMMENDATIONS SEE CARE ACTIVITY FOR COMPLETE ASSESSMENT DAILY ESTIMATED NEEDS: Needs based on sepsis and wound/ 72kg adj 25-30 kcals/kg 3735-7032 total kcals 1.25-2 g protein/kg 90-144 g total protein 25-30 mL/kg 2474-6892 total fluid mLs NUTRITION DIAGNOSIS: * Swallowing difficulty R/T dysphagia, s/p new and old CVA as evidenced by NPO per DATA ENTRY ASSOCIATE rec, has been on NGT feeds, s/p PEG placement, on GT feeds. * Altered nutrition related lab values r/t sepsis, DM, volume deficit as evidenced by elev WBC (21.7), elev POC glu (143 96 91 now improved) w/ A1C 6.9, elev Na (153-> wnl ->152), elev BUN (78), elev creat(1.6) CURRENT TF:Vital 1.2 @ 25ml x24 hrs ENTERAL NUTRITION RECOMMENDATIONS: VITAL 1.2 @ 65ml/hr x 24 hrs to provide 1560ml, 1872kcal, 117g prot, 1265ml free water - Increase slowly 10ml q 6-8 hrs as tolerated to goal - HOB over 30 degrees - H20 flush of 180ml q 4 hrs ADDITIONAL RECOMMENDATIONS: 1) CALIBRATED bedscale wt: fluctuating wts 2) Monitor for readiness fo oral grat, MBSS- monitor DATA ENTRY ASSOCIATE rec 3) Monitor BGs closely- currently improved, but TF has been held 4) Monitor hydration status and renal fxn: elev Na, BUN, Creat 5) Monitor lytes, replete as needed 6) WOUND HEALING: add Vit C 250mg QD, ZnSO4 220mg QD x 10 days add APOORVA 1pkt BID once TF well tolerated
--- NOTE | 2019-07-28 15:33 | NUR ---
NURSE NOTES:WOUND CARE NOTES:Pt noted to have non-blanching erythema sacrum and buttocks (L)13.5cm x (W)9.5cm with and area of shearing (L)3.5cm x (W)2.5cm. R and L heels are firm and easily blanchable.No other areas of skin breakdown noted. Tx.Plan: Apply Moisture Barrier paste to Sacrum. Cover with Optifoam drsg.Change every 3 days and prn. Apply Cavilon Skin Barrier to both heels. Cover each heel with Optifoam drsg. Change every 7 days and prn. Reposition at least every 2hours or as tolerated. Off-load heels with pillow.
[2019-07-28 16:00] VITALS: BP 110/62
--- NOTE | 2019-07-28 18:01 | NUR ---
TRANSFER TO FLOOR: Patient transferred to , per Dr. Gilmore. Report given to JUSTINO Fernandez. Belongings and medications given to JUSTINO Fernandez. No Family located at this time.
[2019-07-28] MEDS ORDERED: Acetaminophen 650mg/20.3ml NG PRN (18:20)
--- NOTE | 2019-07-28 18:48 | NUR ---
NURSE NOTES: Received pt from Tele (Yvette bertrand,JUSTINO) with stable condition. pt is breathing regular and unlabored. on GT and tolerating well. sacral DTI is present per (Yvette bertrand RN) photo was taken today as of 07/28/19. Belongings checked. IV intact and patent. will continue to monitor.
--- NOTE | 2019-07-28 19:10 | NUR ---
HAND-OFF: Report given to JUSTINO Dominguez.
--- NOTE | 2019-07-28 19:28 | NUR ---
NURSE NOTES: Patient is in bed and unable to make needs known. G-tube in place and running Vital AF 1.2 as ordered. IV intact and patent. Bed locked and in lowest position. Bed alarm on. Will continue to monitor.
--- NOTE | 2019-07-28 19:42 | General Progress Note ---
Assessment/Plan Status: stable, unchanged Assessment/Plan: Assessment - Acute CVA - AMS - Dysphagia - s/p GT - leukocytosis, suspected aspiration - arrhythmia - free water deficit, hypernatremia - UTI Recommendations - IVF - D5 W based - monitor labs - follow BM pattern - Hold metformin when NPO - abx per ID Subjective Allergies: Coded Allergies: UNABLE TO ASSESS (Unverified , 06/18/19) Subjective above noted Better today Na and WBC lower Objective Last 24 Hour Vital Signs Date Time Temp Pulse Resp B/P (MAP) Pulse Ox O2 Delivery O2 Flow Rate FiO2 07/28/19 17:16 110/62 07/28/19 17:16 110/62 07/28/19 16:00 98.6 75 18 110/62 (78) 98 07/28/19 12:00 96.8 80 18 102/67 (79) 98 07/28/19 12:00 84 07/28/19 12:00 102/67 07/28/19 10:57 97 Nasal Cannula 3.0 32 07/28/19 09:00 Nasal Cannula 3.0 07/28/19 08:19 131/83 07/28/19 08:19 131/83 07/28/19 08:00 77 07/28/19 08:00 98.1 79 18 131/83 (99) 98 07/28/19 05:38 126/61 07/28/19 04:00 97.3 67 20 112/56 (74) 95 07/28/19 04:00 74 07/28/19 00:48 130/73 07/28/19 00:00 69 07/28/19 00:00 97.7 69 19 130/73 (92) 96 07/27/19 21:00 Nasal Cannula 3.0 07/27/19 20:00 78 07/27/19 20:00 97.5 76 20 131/74 (93) 94 Intake and Output 07/27/19 07/28/19 19:00 07:00 Output Total 350 ml 600 ml Balance -350 ml -600 ml Output Urine Total 350 ml 600 ml Height (Feet): 5 Height (Inches): 8.00 Weight (Pounds): 146 Objective Elderly man awake, looks at NCAT supple Coarse ronchi RR abd soft, (+) GT no edema Barb Lee MD Jul 28, 2019 19:42
[2019-07-28 20:00] VITALS: BP 149/77
[2019-07-29] VITALS (7 sets, daily range): BP systolic 105–143; BP diastolic 62–73
[2019-07-29] MEDS: NovoLOG Insulin Flexpen SUBQ SCH ×5 (00:35→23:59)
[2019-07-29] MEDS: Nitroglycerin 2% oint pkt TOPIC SCH ×5 (00:37→23:59)
--- NOTE | 2019-07-29 03:30 | NUR ---
HAND-OFF: Report given to JUSTINO Carson. Endorsed high fall risk status.
[2019-07-29 06:37] LABS: BASOPHILS % (AUTO) 0.4 % (0.0-2.0); EOSINOPHILS % (AUTO) 2.1 % (0.0-3.0); HEMATOCRIT 36.1 % (42.0-52.0); HEMOGLOBIN 12.9 G/DL (14.2-18.0); LYMPHOCYTES % (AUTO) 18.9 % (20.0-45.0); MEAN CORPUSCULAR VOLUME 88 FL (80-99); MONOCYTES % (AUTO) 5.6 % (1.0-10.0); NEUTROPHILS % (AUTO) 72.9 % (45.0-75.0); PLATELET COUNT 181 K/UL (150-450); RED CELL DISTRIBUTION WIDTH 11.2 % (11.6-14.8); WHITE BLOOD COUNT 17.6 K/UL (4.8-10.8)
--- NOTE | 2019-07-29 06:58 | NUR ---
HAND-OFF: Report given to Elaina Joy. Patient is in bed, confused. High fall risk, yellow socks, fall risk on the board. Bed in low and locked position. Patient is confused. Endorsed;.
[2019-07-29 06:59] LABS: ANION GAP 8 mmol/L (5-15); BLOOD UREA NITROGEN 41 mg/dL (7-18); CALCIUM 8.9 MG/DL (8.5-10.1); CARBON DIOXIDE 26 MMOL/L (21-32); CHLORIDE 112 MMOL/L (98-107); POTASSIUM 3.9 MMOL/L (3.5-5.1); SODIUM 146 MMOL/L (136-145)
--- NOTE | 2019-07-29 07:45 | NUR ---
NURSE NOTES: Received patient on bed, asleep. IV site intact and patent. Gtube present. Condom catheter in place and secured and draining. Bed in low and locked position, call light in reach. Dressing dry and intact. No signs of respiratory distress or pain. Room board updated, will continue to monitor.
[2019-07-29] MEDS: metFORMIN 500mg tab NG SCH ×2 (09:40→17:55)
[2019-07-29] MEDS: Meropenem 1 GM in NS 55 ML IVPB SCH ×2 (09:41→21:18)
[2019-07-29] MEDS: Lisinopril 20mg tab NG SCH (09:44)
[2019-07-29] MEDS: Minoxidil 10mg tab NG SCH ×2 (09:45→17:56)
--- NOTE | 2019-07-29 10:44 | Infectious Diseases Prog Note ---
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 Aphasia R hemiplegia Leukocytosis Pseudomonas UTI RECOMMENDATION: continue Meropenem f/u CBC Subjective ROS Limited/Unobtainable: Yes Constitutional: Reports: other - transferred from telemetry to regular floor; Denies: fever Neurologic: Reports: other - on restraint Allergies: Coded Allergies: UNABLE TO ASSESS (Unverified , 06/18/19) Objective Vital Signs Last 24 Hour Vital Signs Date Time Temp Pulse Resp B/P (MAP) Pulse Ox O2 Delivery O2 Flow Rate FiO2 07/29/19 09:45 118/64 07/29/19 09:45 118/64 (82) 07/29/19 09:44 118/64 07/29/19 08:00 97.5 76 18 105/73 (84) 98 07/29/19 05:56 113/70 07/29/19 04:00 98.0 91 21 113/70 (84) 95 07/29/19 00:37 132/69 07/29/19 00:00 98.6 80 21 132/69 (90) 99 07/28/19 20:07 Nasal Cannula 3.0 07/28/19 20:03 95 Nasal Cannula 3.0 32 07/28/19 20:00 98.2 86 22 149/77 (101) 99 07/28/19 17:16 110/62 07/28/19 17:16 110/62 07/28/19 16:00 98.6 75 18 110/62 (78) 98 07/28/19 12:00 96.8 80 18 102/67 (79) 98 07/28/19 12:00 84 07/28/19 12:00 102/67 07/28/19 10:57 97 Nasal Cannula 3.0 32 Height (Feet): 5 Height (Inches): 8.00 Weight (Pounds): 146 HEENT: mucous membranes moist Respiratory/Chest: rhonchi - bilaterally Cardiovascular: normal rate Abdomen: soft, non tender, other - GT feeding Neurologic/Psychiatric: aphasia, other - R hemiplegia Laboratory Tests Test 07/29/19 05:52 White Blood Count 17.6 K/UL (4.8-10.8) H Red Blood Count 4.10 M/UL (4.70-6.10) L Hemoglobin 12.9 G/DL (14.2-18.0) L Hematocrit 36.1 % (42.0-52.0) L Mean Corpuscular Volume 88 FL (80-99) Mean Corpuscular Hemoglobin 31.4 PG (27.0-31.0) H Mean Corpuscular Hemoglobin Concent 35.6 G/DL (32.0-36.0) Red Cell Distribution Width 11.2 % (11.6-14.8) L Platelet Count 181 K/UL (150-450) Mean Platelet Volume 7.5 FL (6.5-10.1) Neutrophils (%) (Auto) 72.9 % (45.0-75.0) Lymphocytes (%) (Auto) 18.9 % (20.0-45.0) L Monocytes (%) (Auto) 5.6 % (1.0-10.0) Eosinophils (%) (Auto) 2.1 % (0.0-3.0) Basophils (%) (Auto) 0.4 % (0.0-2.0) Sodium Level 146 MMOL/L (136-145) H Potassium Level 3.9 MMOL/L (3.5-5.1) Chloride Level 112 MMOL/L (98-107) H Carbon Dioxide Level 26 MMOL/L (21-32) Anion Gap 8 mmol/L (5-15) Blood Urea Nitrogen 41 mg/dL (7-18) H Creatinine 1.0 MG/DL (0.55-1.30) Estimat Glomerular Filtration Rate > 60 mL/min (>60) Glucose Level 121 MG/DL (74-106) H Calcium Level 8.9 MG/DL (8.5-10.1) Current Medications Medications (Trade) Dose Ordered Sig/Leonor Route PRN Reason Start Time Stop Time Status Last Admin Dose Admin Acetaminophen (Tylenol) 650 mg Q4H PRN NG Mild Pain/Temp > 100.5 07/28/19 18:20 08/27/19 18:19 Dextrose 1,000 ml @ 50 mls/hr Q20H IV 07/28/19 18:30 08/27/19 12:14 07/29/19 09:42 Insulin Aspart (NovoLOG) No Dose Q6HR SUBQ 07/29/19 00:00 2/19/20 17:59 Lisinopril (PriniviL) 20 mg DAILY NG 07/29/19 09:00 08/17/19 20:59 07/29/19 09:44 Loperamide HCl (Imodium) 2 mg Q6H PRN NG Diarrhea 07/28/19 18:20 08/27/19 18:19 Meropenem 1 gm/ Sodium Chloride 55 ml @ 110 mls/hr Q12HR IVPB 07/28/19 21:00 07/31/19 09:59 07/29/19 09:41 Metformin HCl (Glucophage) 500 mg BID NG 07/29/19 09:00 08/14/19 14:59 07/29/19 09:40 Metoclopramide HCl (Reglan) 5 mg EVERY 8 HOURS NG 07/28/19 22:00 08/25/19 14:59 07/29/19 05:55 Minoxidil (Loniten) 2.5 mg Q4H PRN NG bp over 160 syst 07/28/19 18:20 08/27/19 18:19 Minoxidil (Loniten) 10 mg TWICE A DAY NG 07/29/19 09:00 08/06/19 17:59 07/29/19 09:45 Nitroglycerin (Nitro-Bid) 1 inch Q6HR TOPIC 07/29/19 00:00 07/31/19 20:59 07/29/19 05:56 Bob Gilmore MD Jul 29, 2019 10:44
--- NOTE | 2019-07-29 14:11 | NUR ---
CASE MANAGEMENT:REVIEW SI;CVA. PNA. UTI. 98.6 91 21 132/69 95% 3L NC WBC 17.6 NA 146 BUN 41 IS;MEROPENEM IV Q12 HRS LONITEN NGT Q4 HRS PRN NITRO-BID TOP Q6 HRS PRINIVIL QD NGT QD MED SURG STATUS STATUS DCP;SNF PLACEMENT
--- NOTE | 2019-07-29 16:23 | General Progress Note ---
Assessment/Plan Problem List: (1) Cellulitis of right hand ICD Codes: L03.113 - Cellulitis of right upper limb SNOMED: 56159070 (2) Altered level of consciousness ICD Codes: R40.4 - Transient alteration of awareness SNOMED: 2967845 (3) Sepsis ICD Codes: A41.9 - Sepsis, unspecified organism SNOMED: 66446040 Qualifiers: Qualified Codes: A41.9 - Sepsis, unspecified organism (4) Left middle cerebral artery stroke ICD Codes: I63.512 - Cerebral infarction due to unspecified occlusion or stenosis of left middle cerebral artery SNOMED: 612107977 (5) Left carotid artery occlusion ICD Codes: I65.22 - Occlusion and stenosis of left carotid artery SNOMED: 465622542169709 (6) Hypernatremia Assessment & Plan: better ICD Codes: E87.0 - Hyperosmolality and hypernatremia SNOMED: 958230305 (7) Hypokalemia Assessment & Plan: better ICD Codes: E87.6 - Hypokalemia SNOMED: 03331038 (8) DM (diabetes mellitus) ICD Codes: E11.9 - Type 2 diabetes mellitus without complications SNOMED: 67012754 (9) ARF (acute renal failure) Assessment & Plan: ok ICD Codes: N17.9 - Acute kidney failure, unspecified SNOMED: 15489292 (10) Hypertension ICD Codes: I10 - Essential (primary) hypertension SNOMED: 72236393 (11) Aspiration pneumonia ICD Codes: J69.0 - Pneumonitis due to inhalation of food and vomit SNOMED: 017655566 (12) UTI (urinary tract infection) ICD Codes: N39.0 - Urinary tract infection, site not specified SNOMED: 09437354 Status: stable, unchanged Assessment/Plan: [id number] TF per GI continue ASA TF SSI cont Lisinopril cont Metformin Discussed with RN abxs Subjective Allergies: Coded Allergies: UNABLE TO ASSESS (Unverified , 06/18/19) Subjective In NAD Objective Last 24 Hour Vital Signs Date Time Temp Pulse Resp B/P (MAP) Pulse Ox O2 Delivery O2 Flow Rate FiO2 07/29/19 16:03 97.3 88 18 129/73 (91) 94 07/29/19 12:46 117/62 07/29/19 12:00 98.2 85 18 117/62 (80) 98 2/14/20 09:45 118/64 07/29/19 09:45 118/64 (82) 07/29/19 09:44 118/64 07/29/19 09:00 Nasal Cannula 3.0 07/29/19 08:00 97.5 76 18 105/73 (84) 98 07/29/19 05:56 113/70 07/29/19 04:00 98.0 91 21 113/70 (84) 95 07/29/19 00:37 132/69 07/29/19 00:00 98.6 80 21 132/69 (90) 99 07/28/19 20:07 Nasal Cannula 3.0 07/28/19 20:03 95 Nasal Cannula 3.0 32 07/28/19 20:00 98.2 86 22 149/77 (101) 99 07/28/19 17:16 110/62 07/28/19 17:16 110/62 Intake and Output 07/28/19 07/29/19 19:00 07:00 Intake Total 125 ml 225 ml Output Total 800 ml 350 ml Balance -675 ml -125 ml Free Water 150 ml Tube Feeding 25 ml 75 ml Other 100 ml Output Urine Total 800 ml 350 ml # Voids 1 Laboratory Tests 07/29/19 05:52: White Blood Count 17.6H, Red Blood Count 4.10L, Hemoglobin 12.9L, Hematocrit 36.1L, Mean Corpuscular Volume 88, Mean Corpuscular Hemoglobin 31.4H, Mean Corpuscular Hemoglobin Concent 35.6, Red Cell Distribution Width 11.2L, Platelet Count 181, Mean Platelet Volume 7.5, Neutrophils (%) (Auto) 72.9, Lymphocytes (%) (Auto) 18.9L, Monocytes (%) (Auto) 5.6, Eosinophils (%) (Auto) 2.1, Basophils (%) (Auto) 0.4, Sodium Level 146H, Potassium Level 3.9, Chloride Level 112H, Carbon Dioxide Level 26, Anion Gap 8, Blood Urea Nitrogen 41H, Creatinine 1.0, Estimat Glomerular Filtration Rate > 60, Glucose Level 121H, Calcium Level 8.9 Height (Feet): 5 Height (Inches): 8.00 Weight (Pounds): 146 Cardiovascular: normal rate Respiratory/Chest: lungs clear Edema: no edema noted Generalized Rahban,Kaz MD Jul 29, 2019 16:23
--- NOTE | 2019-07-29 18:09 | General Progress Note ---
Assessment/Plan Status: stable, unchanged Assessment/Plan: Assessment - Acute CVA - AMS - Dysphagia - s/p GT - leukocytosis, suspected aspiration - arrhythmia - free water deficit, hypernatremia - UTI Recommendations - IVF - D5 W based - monitor labs - abx per ID Subjective Allergies: Coded Allergies: UNABLE TO ASSESS (Unverified , 06/18/19) Subjective above noted Better today Na and WBC lower Objective Last 24 Hour Vital Signs Date Time Temp Pulse Resp B/P (MAP) Pulse Ox O2 Delivery O2 Flow Rate FiO2 07/29/19 17:56 129/73 07/29/19 17:55 129/73 07/29/19 16:03 97.3 88 18 129/73 (91) 94 07/29/19 12:46 117/62 07/29/19 12:00 98.2 85 18 117/62 (80) 98 07/29/19 09:45 118/64 07/29/19 09:45 118/64 (82) 07/29/19 09:44 118/64 07/29/19 09:00 Nasal Cannula 3.0 07/29/19 08:00 97.5 76 18 105/73 (84) 98 07/29/19 05:56 113/70 07/29/19 04:00 98.0 91 21 113/70 (84) 95 07/29/19 00:37 132/69 07/29/19 00:00 98.6 80 21 132/69 (90) 99 07/28/19 20:07 Nasal Cannula 3.0 07/28/19 20:03 95 Nasal Cannula 3.0 32 07/28/19 20:00 98.2 86 22 149/77 (101) 99 Intake and Output 07/28/19 07/29/19 19:00 07:00 Intake Total 125 ml 225 ml Output Total 800 ml 350 ml Balance -675 ml -125 ml Free Water 150 ml Tube Feeding 25 ml 75 ml Other 100 ml Output Urine Total 800 ml 350 ml # Voids 1 Laboratory Tests 07/29/19 05:52: White Blood Count 17.6H, Red Blood Count 4.10L, Hemoglobin 12.9L, Hematocrit 36.1L, Mean Corpuscular Volume 88, Mean Corpuscular Hemoglobin 31.4H, Mean Corpuscular Hemoglobin Concent 35.6, Red Cell Distribution Width 11.2L, Platelet Count 181, Mean Platelet Volume 7.5, Neutrophils (%) (Auto) 72.9, Lymphocytes (%) (Auto) 18.9L, Monocytes (%) (Auto) 5.6, Eosinophils (%) (Auto) 2.1, Basophils (%) (Auto) 0.4, Sodium Level 146H, Potassium Level 3.9, Chloride Level 112H, Carbon Dioxide Level 26, Anion Gap 8, Blood Urea Nitrogen 41H, Creatinine 1.0, Estimat Glomerular Filtration Rate > 60, Glucose Level 121H, Calcium Level 8.9 Height (Feet): 5 Height (Inches): 8.00 Weight (Pounds): 146 Objective Elderly man awake, looks at NCAT supple Coarse ronchi RR abd soft, (+) GT no edema Barb Lee MD Jul 29, 2019 18:09
--- NOTE | 2019-07-29 19:15 | NUR ---
NURSE NOTES: Received patient on bed, awake and verbally responsive. with iv line on the left forearm running d5W @ 50 ml/hr. with Gt running 25 ml/hr of vital 1.2. on scd's.on cannula at 3lpm. with condom catheter draining a light yellow urine. with soft wrist restraints on the left arm. bed locked and in lowest position. call light and light button within easy reach. will continue plan of care.
--- NOTE | 2019-07-29 19:28 | NUR ---
HAND-OFF: Report given to JUSTINO Jeter.
[2019-07-30] VITALS: BP 131/71
[2019-07-30 04:00] VITALS: BP 114/60
[2019-07-30] MEDS: NovoLOG Insulin Flexpen SUBQ SCH ×4 (06:00→23:26)
[2019-07-30] MEDS: Nitroglycerin 2% oint pkt TOPIC SCH ×4 (06:31→23:34)
--- NOTE | 2019-07-30 07:24 | NUR ---
HAND-OFF: Report given to leticia.endorsed that the patient is at risk for fall. he moves his lower extremities frequently. bed locked and in lowest position. call light and light button within easy reach. reiterated to observe fall precautions.
--- NOTE | 2019-07-30 07:26 | NUR ---
NURSE NOTES: Received pt in bed, AAO x 0-1. Non-verbal. On NC 3L/min. No s/s of distress/pain. IV on LFA 22g noted, running D5W @ 50 ml/hr. G-tube feeding noted. Side rails x 2. Bed in the lowest, locked, and alarm on. Call light within reach. Will continue to monitor
[2019-07-30 08:00] VITALS: BP 108/63
[2019-07-30] MEDS: Lisinopril 20mg tab NG SCH (08:41)
[2019-07-30] MEDS: Minoxidil 10mg tab NG SCH ×2 (08:41→17:30)
[2019-07-30] MEDS: metFORMIN 500mg tab NG SCH ×2 (08:45→17:30)
[2019-07-30] MEDS: Meropenem 1 GM in NS 55 ML IVPB SCH ×2 (08:45→21:21)
[2019-07-30 12:00] VITALS: BP 116/68
--- NOTE | 2019-07-30 13:19 | General Progress Note ---
Assessment/Plan Problem List: (1) Cellulitis of right hand ICD Codes: L03.113 - Cellulitis of right upper limb SNOMED: 58273306 (2) Altered level of consciousness ICD Codes: R40.4 - Transient alteration of awareness SNOMED: 7964478 (3) Sepsis ICD Codes: A41.9 - Sepsis, unspecified organism SNOMED: 92634494 Qualifiers: Qualified Codes: A41.9 - Sepsis, unspecified organism (4) Left middle cerebral artery stroke ICD Codes: I63.512 - Cerebral infarction due to unspecified occlusion or stenosis of left middle cerebral artery SNOMED: 191858729 (5) Left carotid artery occlusion ICD Codes: I65.22 - Occlusion and stenosis of left carotid artery SNOMED: 600961619493911 (6) Hypernatremia Assessment & Plan: better ICD Codes: E87.0 - Hyperosmolality and hypernatremia SNOMED: 088937696 (7) Hypokalemia Assessment & Plan: better ICD Codes: E87.6 - Hypokalemia SNOMED: 85736542 (8) DM (diabetes mellitus) ICD Codes: E11.9 - Type 2 diabetes mellitus without complications SNOMED: 01767445 (9) ARF (acute renal failure) Assessment & Plan: ok ICD Codes: N17.9 - Acute kidney failure, unspecified SNOMED: 30489720 (10) Hypertension ICD Codes: I10 - Essential (primary) hypertension SNOMED: 76929122 (11) Aspiration pneumonia ICD Codes: J69.0 - Pneumonitis due to inhalation of food and vomit SNOMED: 565403213 (12) UTI (urinary tract infection) ICD Codes: N39.0 - Urinary tract infection, site not specified SNOMED: 67211708 Status: stable, unchanged Assessment/Plan: [id number] TF per GI continue ASA SSI cont Lisinopril cont Metformin Discussed with RN follow labs Subjective Allergies: Coded Allergies: UNABLE TO ASSESS (Unverified , 06/18/19) Subjective In NAD Objective Last 24 Hour Vital Signs Date Time Temp Pulse Resp B/P (MAP) Pulse Ox O2 Delivery O2 Flow Rate FiO2 07/30/19 12:00 116/68 07/30/19 12:00 98.1 81 20 116/68 (84) 98 07/30/19 09:00 Nasal Cannula 3.0 07/30/19 08:41 108/63 07/30/19 08:41 108/63 07/30/19 08:00 97.8 85 20 108/63 (78) 98 07/30/19 06:31 110/70 07/30/19 04:00 97.6 82 20 114/60 (78) 97 07/30/19 00:00 97.2 79 20 131/71 (91) 95 07/29/19 23:59 131/65 07/29/19 21:00 Nasal Cannula 3.0 07/29/19 20:00 98.6 82 20 143/66 (91) 96 07/29/19 17:56 129/73 07/29/19 17:55 129/73 07/29/19 16:03 97.3 88 18 129/73 (91) 94 Intake and Output 07/29/19 07/30/19 19:00 07:00 Intake Total 1085 ml 125 ml Output Total 600 ml 500 ml Balance 485 ml -375 ml Free Water 360 ml 100 ml IV Total 450 ml Tube Feeding 275 ml 25 ml Output Urine Total 600 ml 500 ml # Bowel Movements 1 Height (Feet): 5 Height (Inches): 8.00 Weight (Pounds): 146 Cardiovascular: normal rate Respiratory/Chest: lungs clear Edema: no edema noted Generalized Kaz Gilmore MD Jul 30, 2019 13:19
[2019-07-30 16:00] VITALS: BP 131/73
--- NOTE | 2019-07-30 16:41 | General Progress Note ---
Assessment/Plan Status: stable, unchanged Assessment/Plan: Assessment - Acute CVA - AMS - Dysphagia - s/p GT - leukocytosis, suspected aspiration - arrhythmia - free water deficit, hypernatremia - UTI Recommendations - IVF - D5 W based - monitor labs - check CT abd/pelvis, although doubt abd event - abx per ID Subjective Allergies: Coded Allergies: UNABLE TO ASSESS (Unverified , 06/18/19) Subjective above noted Better today still with leukocytosis Objective Last 24 Hour Vital Signs Date Time Temp Pulse Resp B/P (MAP) Pulse Ox O2 Delivery O2 Flow Rate FiO2 07/30/19 16:00 98.7 79 18 131/73 (92) 96 07/30/19 12:00 116/68 07/30/19 12:00 98.1 81 20 116/68 (84) 98 07/30/19 09:00 Nasal Cannula 3.0 07/30/19 08:41 108/63 07/30/19 08:41 108/63 07/30/19 08:00 97.8 85 20 108/63 (78) 98 07/30/19 06:31 110/70 07/30/19 04:00 97.6 82 20 114/60 (78) 97 07/30/19 00:00 97.2 79 20 131/71 (91) 95 07/29/19 23:59 131/65 07/29/19 21:00 Nasal Cannula 3.0 07/29/19 20:00 98.6 82 20 143/66 (91) 96 07/29/19 17:56 129/73 07/29/19 17:55 129/73 Intake and Output 07/29/19 07/30/19 19:00 07:00 Intake Total 1085 ml 125 ml Output Total 600 ml 500 ml Balance 485 ml -375 ml Free Water 360 ml 100 ml IV Total 450 ml Tube Feeding 275 ml 25 ml Output Urine Total 600 ml 500 ml # Bowel Movements 1 Height (Feet): 5 Height (Inches): 8.00 Weight (Pounds): 146 Objective Elderly man awake, looks at NCAT supple Coarse ronchi RR abd soft, (+) GT no edema Barb Lee MD Jul 30, 2019 16:40
--- NOTE | 2019-07-30 19:12 | NUR ---
HAND-OFF: Report given to JUSTINO Cade.
--- NOTE | 2019-07-30 19:12 | NUR ---
NURSE NOTES: G-tube feeding is on hold for Ct scan
--- NOTE | 2019-07-30 19:19 | NUR ---
NURSE NOTES: Received patient on bed. with soft wrist restraints on left arm. same iv line on the left forearm with ivf of d5w at 50 ml/hr. previous nurse hold the feeding for the ct abdomen. per previous nurse , they will the ct abdomen in 3 hours. with condom catheter. put patient on semi perez's position. bed locked and in lowest position. mickey light and light button within easy reach. will turn the pt q2 hours. will continue plan of care.
--- NOTE | 2019-07-30 19:20 | NUR ---
NURSE NOTES: per previous nurse the patient had 3 episodes of loose bowel movement during her shift. per rafaela moreno is aware. will monitor
[2019-07-30 20:00] VITALS: BP 132/84
--- NOTE | 2019-07-30 22:55 | Diagnostic Imaging Report ---
EXAM: CT Abdomen and Pelvis Without Intravenous Contrast CLINICAL HISTORY: ABN LABS, diarrhea TECHNIQUE: Axial computed tomography images of the abdomen and pelvis without intravenous contrast. CTDI is 6 mGy and DLP is 297 mGy-cm. One or more of the following dose reduction techniques were used: automated exposure control, adjustment of the mA and/or kV according to patient size, use of iterative reconstruction technique. COMPARISON: No relevant prior studies available. FINDINGS: Artifacts: Motion degraded study. Lung bases: Irregular nodular and confluent consolidation both lung bases right greater than left. Superimposed reticulonodular interstitial changes are present. Pneumonia 5 particularly in the right superimposed on chronic interstitial lung disease a consideration. Given the irregularity of the lower lobe nodules, malignancy cannot be excluded. Recommend pulmonary consultation. ABDOMEN: Liver: Unremarkable. Gallbladder and bile ducts: Unremarkable. No calcified stones. No ductal dilation. Pancreas: Unremarkable. No ductal dilation. Spleen: Unremarkable. No splenomegaly. Adrenals: Unremarkable. No mass. Kidneys and ureters: Unremarkable. No obstructing stones. No hydronephrosis. Stomach and bowel: Unremarkable. No obstruction. No mucosal thickening. PELVIS: Appendix: No findings to suggest acute appendicitis. Bladder: Indeterminate bladder wall thickening. There is a large irregular diverticulum right anterior bladder. A small left Hutch diverticulum is present. Cystoscopy recommended to evaluate bladder wall thickening. No stones. Reproductive: Moderate indeterminate enlargement of the prostate gland. Subperitoneal space: Small amount of fluid and stranding in the presacral space of unknown etiology. ABDOMEN and PELVIS: Intraperitoneal space: Unremarkable. No free air. No significant fluid collection. Bones/joints: No acute fracture. No dislocation. Soft tissues: Unremarkable. Vasculature: Unremarkable. No abdominal aortic aneurysm. Lymph nodes: Unremarkable. No enlarged lymph nodes. Tubes, lines and devices: PEG tube terminates in the stomach. IMPRESSION: Bilateral lower lobe irregular nodularity requiring follow-up detailed above. Indeterminate bladder wall thickening, heterogeneous and indeterminate enlargement of the prostate gland. Follow-up as stated above.
[2019-07-31] VITALS: BP 143/81
[2019-07-31 04:00] VITALS: BP 140/73
--- NOTE | 2019-07-31 04:00 | NUR ---
NURSE notes: patient had 2 episodes of loose stools. kept clean and dry.charge nurse made aware.
[2019-07-31] MEDS: NovoLOG Insulin Flexpen SUBQ SCH ×3 (05:14→17:22)
[2019-07-31] MEDS: Nitroglycerin 2% oint pkt TOPIC SCH ×3 (05:15→17:22)
--- NOTE | 2019-07-31 07:39 | NUR ---
HAND-OFF: Report given to liyah cole.endorsed that thept is high risk for fall.he moves his lower extremities frequently. bedbound with soft wrist restraints on th eleft hand. advised to observe fall precautions by lowering the bed, bed locked and frequent visits.
--- NOTE | 2019-07-31 07:46 | NUR ---
NURSE NOTES: Patient non-verbal, confused; on Nasal cannula 3 Liters, no sing of distress and shortness of breath; no sing of chest pain; Feeding Tube Vital 1.2 running at 25cc, no residual, head of the bed elevated; Condom cath in place, drains dark yellowish urine; Restrains on Left-Hand; SCD on; side rails up x2, breaks engaged, bed at lowest position; bed alarm on; call light within reach; will keep monitoring.
[2019-07-31 08:00] VITALS: BP 138/70
[2019-07-31] MEDS: Minoxidil 10mg tab NG SCH ×2 (08:17→17:22)
[2019-07-31] MEDS: Meropenem 1 GM in NS 55 ML IVPB SCH ×2 (08:17→21:41)
[2019-07-31] MEDS: metFORMIN 500mg tab NG SCH ×2 (08:17→17:21)
[2019-07-31] MEDS: Lisinopril 20mg tab NG SCH (08:17)
--- NOTE | 2019-07-31 11:18 | General Progress Note ---
Assessment/Plan Status: stable, unchanged Assessment/Plan: Assessment - Acute CVA - AMS - Dysphagia - s/p GT - leukocytosis, suspected aspiration - arrhythmia - free water deficit, hypernatremia - UTI Recommendations - IVF - D5 W based - monitor labs - increase TF - check CT abd/pelvis, although doubt abd event - abx per ID Subjective Allergies: Coded Allergies: UNABLE TO ASSESS (Unverified , 06/18/19) Subjective above noted NAD tolerating TF at 25 cc/hr Objective Last 24 Hour Vital Signs Date Time Temp Pulse Resp B/P (MAP) Pulse Ox O2 Delivery O2 Flow Rate FiO2 07/31/19 09:00 Nasal Cannula 3.0 07/31/19 08:17 138/70 07/31/19 08:17 138/70 07/31/19 08:00 99.0 80 20 138/70 (92) 98 07/31/19 05:15 122/85 07/31/19 04:00 99.0 78 20 140/73 (95) 98 07/31/19 00:00 98.4 82 20 143/81 (101) 95 07/30/19 23:34 131/84 07/30/19 21:00 Nasal Cannula 3.0 07/30/19 20:00 98.3 89 20 132/84 (100) 96 07/30/19 17:30 131/73 07/30/19 17:30 131/73 07/30/19 16:00 98.7 79 18 131/73 (92) 96 07/30/19 12:00 116/68 07/30/19 12:00 98.1 81 20 116/68 (84) 98 Intake and Output 07/30/19 07/31/19 18:59 06:59 Intake Total 110 ml Output Total 1300 ml 350 ml Balance -1300 ml -240 ml IV Total 110 ml Output Urine Total 1300 ml 350 ml # Voids 1 # Bowel Movements 2 3 Height (Feet): 5 Height (Inches): 8.00 Weight (Pounds): 146 Objective Elderly man awake, looks at NCAT supple Coarse ronchi RR abd soft, (+) GT no edema Barb Lee MD Jul 31, 2019 11:18
[2019-07-31 12:00] VITALS: BP 140/75
--- NOTE | 2019-07-31 13:04 | NUR ---
RD ASSESSMENT & RECOMMENDATIONS SEE CARE ACTIVITY FOR COMPLETE ASSESSMENT DAILY ESTIMATED NEEDS: Needs based on sepsis and wound/ 72kg adj 25-30 kcals/kg 3546-3090 total kcals 1.25-2 g protein/kg 90-144 g total protein 25-30 mL/kg 7358-9182 total fluid mLs NUTRITION DIAGNOSIS: * Swallowing difficulty R/T dysphagia, s/p new and old CVA as evidenced by NPO per [employer] rec, has been on NGT feeds, s/p PEG placement, on GT feeds. * Altered nutrition related lab values r/t sepsis, DM, volume deficit as evidenced by elev WBC (21.7), elev POC glu (143 96 91 now improved) w/ A1C 6.9, elev Na (153-> wnl ->152-> 146), elev BUN (78-> 41), elev creat(1.6, now wnl). CURRENT TF:Vital 1.2 @ 50ml x24 hrs ENTERAL NUTRITION RECOMMENDATIONS: VITAL 1.2 @ 65ml/hr x 24 hrs to provide 1560ml, 1872kcal, 117g prot, 1265ml free water - Increase slowly 10ml q 6-8 hrs as tolerated to goal - HOB over 30 degrees - H20 flush of 180ml q 4 hrs ADDITIONAL RECOMMENDATIONS: 1) CALIBRATED weight (fluctuating wts)-> REC TO RECALIBRATE BED 2) Monitor for readiness fo oral grat, MBSS- monitor [employer] rec 3) Monitor BGs closely- currently improved, but TF has been at low rate 4) Monitor hydration status and renal fxn: elev Na, BUN, Creat 5) Monitor lytes, replete as needed 6) WOUND HEALING: add Vit C 250mg QD, ZnSO4 220mg QD x 10 days add APOORVA 1pkt BID once TF well tolerated
--- NOTE | 2019-07-31 13:24 | Infectious Diseases Prog Note ---
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 Aphasia R hemiplegia Leukocytosis Pseudomonas UTI RECOMMENDATION: continue Meropenem X 1 day f/u CBC Subjective ROS Limited/Unobtainable: Yes Constitutional: Denies: fever Allergies: Coded Allergies: UNABLE TO ASSESS (Unverified , 06/18/19) Objective Vital Signs Last 24 Hour Vital Signs Date Time Temp Pulse Resp B/P (MAP) Pulse Ox O2 Delivery O2 Flow Rate FiO2 07/31/19 13:09 140/75 07/31/19 12:00 98.7 75 20 140/75 (96) 97 07/31/19 09:00 Nasal Cannula 3.0 07/31/19 08:17 138/70 07/31/19 08:17 138/70 07/31/19 08:00 99.0 80 20 138/70 (92) 98 07/31/19 05:15 122/85 07/31/19 04:00 99.0 78 20 140/73 (95) 98 07/31/19 00:00 98.4 82 20 143/81 (101) 95 07/30/19 23:34 131/84 07/30/19 21:00 Nasal Cannula 3.0 07/30/19 20:00 98.3 89 20 132/84 (100) 96 07/30/19 17:30 131/73 07/30/19 17:30 131/73 07/30/19 16:00 98.7 79 18 131/73 (92) 96 Height (Feet): 5 Height (Inches): 8.00 Weight (Pounds): 146 General Appearance: no acute distress HEENT: mucous membranes moist Respiratory/Chest: lungs clear Cardiovascular: normal rate Abdomen: soft, non tender, other - GT feeding Extremities: other - R hand edema Neurologic/Psychiatric: aphasia, other - R hemiplegia Microbiology Date/Time Source Procedure Growth Status 07/30/19 07:45 Stool Clostridium difficile Toxin Assay - Final Complete Current Medications Medications (Trade) Dose Ordered Sig/Leonor Route PRN Reason Start Time Stop Time Status Last Admin Dose Admin Acetaminophen (Tylenol) 650 mg Q4H PRN NG Mild Pain/Temp > 100.5 07/28/19 18:20 08/27/19 18:19 Barium Sulfate (Readi-Cat 2) 450 ml NOW PRN ORAL Radiology Procedure 07/30/19 16:45 08/01/19 16:38 Dextrose 1,000 ml @ 50 mls/hr Q20H IV 07/28/19 18:30 08/27/19 12:14 07/31/19 04:07 Insulin Aspart (NovoLOG) No Dose Q6HR SUBQ 07/29/19 00:00 08/03/19 17:59 Lisinopril (PriniviL) 20 mg DAILY NG 07/29/19 09:00 08/17/19 20:59 07/31/19 08:17 Loperamide HCl (Imodium) 2 mg Q6H PRN NG Diarrhea 07/28/19 18:20 08/27/19 18:19 Meropenem 1 gm/ Sodium Chloride 55 ml @ 110 mls/hr Q12HR IVPB 07/28/19 21:00 08/01/19 23:59 07/31/19 08:17 Metformin HCl (Glucophage) 500 mg BID NG 07/29/19 09:00 08/14/19 14:59 07/31/19 08:17 Metoclopramide HCl (Reglan) 5 mg EVERY 8 HOURS NG 07/28/19 22:00 08/25/19 14:59 07/31/19 13:10 Minoxidil (Loniten) 2.5 mg Q4H PRN NG bp over 160 syst 07/28/19 18:20 08/27/19 18:19 Minoxidil (Loniten) 10 mg TWICE A DAY NG 07/29/19 09:00 08/06/19 17:59 07/31/19 08:17 Nitroglycerin (Nitro-Bid) 1 inch Q6HR TOPIC 07/29/19 00:00 07/31/19 20:59 07/31/19 13:09 Bob Gilmore MD Jul 31, 2019 13:24
[2019-07-31 16:00] VITALS: BP 120/90
--- NOTE | 2019-07-31 18:41 | General Progress Note ---
Assessment/Plan Problem List: (1) Cellulitis of right hand ICD Codes: L03.113 - Cellulitis of right upper limb SNOMED: 08627682 (2) Altered level of consciousness ICD Codes: R40.4 - Transient alteration of awareness SNOMED: 8495189 (3) Sepsis ICD Codes: A41.9 - Sepsis, unspecified organism SNOMED: 41898753 Qualifiers: Qualified Codes: A41.9 - Sepsis, unspecified organism (4) Left middle cerebral artery stroke ICD Codes: I63.512 - Cerebral infarction due to unspecified occlusion or stenosis of left middle cerebral artery SNOMED: 367680216 (5) Left carotid artery occlusion ICD Codes: I65.22 - Occlusion and stenosis of left carotid artery SNOMED: 959279051002072 (6) Hypernatremia Assessment & Plan: better ICD Codes: E87.0 - Hyperosmolality and hypernatremia SNOMED: 062263205 (7) Hypokalemia Assessment & Plan: better ICD Codes: E87.6 - Hypokalemia SNOMED: 07865937 (8) DM (diabetes mellitus) ICD Codes: E11.9 - Type 2 diabetes mellitus without complications SNOMED: 25723216 (9) ARF (acute renal failure) Assessment & Plan: ok ICD Codes: N17.9 - Acute kidney failure, unspecified SNOMED: 40286719 (10) Hypertension ICD Codes: I10 - Essential (primary) hypertension SNOMED: 62391879 (11) Aspiration pneumonia ICD Codes: J69.0 - Pneumonitis due to inhalation of food and vomit SNOMED: 228837536 (12) UTI (urinary tract infection) ICD Codes: N39.0 - Urinary tract infection, site not specified SNOMED: 32708591 Status: stable, unchanged Assessment/Plan: cont D5W follow labs TF per GI continue ASA SSI cont Lisinopril cont Metformin Discussed with RN Subjective Allergies: Coded Allergies: UNABLE TO ASSESS (Unverified , 06/18/19) Subjective In NAD Objective Last 24 Hour Vital Signs Date Time Temp Pulse Resp B/P (MAP) Pulse Ox O2 Delivery O2 Flow Rate FiO2 07/31/19 17:22 140/75 07/31/19 17:22 140/75 07/31/19 16:00 98.8 93 18 120/90 (100) 97 07/31/19 13:09 140/75 2/16/20 12:00 98.7 75 20 140/75 (96) 97 07/31/19 09:00 Nasal Cannula 3.0 07/31/19 08:17 138/70 07/31/19 08:17 138/70 07/31/19 08:00 99.0 80 20 138/70 (92) 98 07/31/19 05:15 122/85 07/31/19 04:00 99.0 78 20 140/73 (95) 98 07/31/19 00:00 98.4 82 20 143/81 (101) 95 07/30/19 23:34 131/84 07/30/19 21:00 Nasal Cannula 3.0 07/30/19 20:00 98.3 89 20 132/84 (100) 96 Intake and Output 07/30/19 07/31/19 18:59 06:59 Intake Total 110 ml Output Total 1300 ml 350 ml Balance -1300 ml -240 ml IV Total 110 ml Output Urine Total 1300 ml 350 ml # Voids 1 # Bowel Movements 2 3 Height (Feet): 5 Height (Inches): 8.00 Weight (Pounds): 146 Cardiovascular: normal rate Respiratory/Chest: lungs clear Abdomen: non tender Kaz Gilmore MD Jul 31, 2019 18:41
--- NOTE | 2019-07-31 19:20 | NUR ---
NURSE NOTES: received patient on bed asleep with condom catheter in placed. left hand soft wrist restraints noted. with feeding of vital af @ 50 ml. elevated head of bed. bed locked and in lowest position. iv line on the left forearm. bed locked and in lowest position. call light and light button within easy reach. will continue plan of care.
--- NOTE | 2019-07-31 19:24 | NUR ---
HAND-OFF: Report given to JUSTINO Jeter.
[2019-07-31 20:00] VITALS: BP 95/65
[2019-08-01] VITALS: BP 136/64
[2019-08-01 04:00] VITALS: BP 142/73
[2019-08-01] MEDS: NovoLOG Insulin Flexpen SUBQ SCH ×4 (05:57→18:00)
--- NOTE | 2019-08-01 07:30 | NUR ---
HAND-OFF: Report given to JUSTINO ROSAS .
--- NOTE | 2019-08-01 07:48 | NUR ---
NURSE NOTES: Received patient in bed asleep. No SOB or acute distress. IV line intact and patent. Oxygen via NC in place. HOB elevated. Side rails up. Bed locked in lowest position, alarm on high sensitivity setting. Call light within reach. Will continue plan of care. Will continue frequent rounding and plan of care.
[2019-08-01 08:00] VITALS: BP 100/48
[2019-08-01 08:49] LABS: BASOPHILS % (AUTO) 0.7 % (0.0-2.0); EOSINOPHILS % (AUTO) 2.5 % (0.0-3.0); HEMATOCRIT 32.2 % (42.0-52.0); LYMPHOCYTES % (AUTO) 15.9 % (20.0-45.0); MEAN CORPUSCULAR VOLUME 86 FL (80-99); MONOCYTES % (AUTO) 6.2 % (1.0-10.0); NEUTROPHILS % (AUTO) 74.7 % (45.0-75.0); PLATELET COUNT 228 K/UL (150-450); RED BLOOD COUNT 3.76 M/UL (4.70-6.10); RED CELL DISTRIBUTION WIDTH 10.8 % (11.6-14.8); WHITE BLOOD COUNT 16.7 K/UL (4.8-10.8)
[2019-08-01] MEDS: Lisinopril 20mg tab NG SCH (09:00)
[2019-08-01] MEDS: Minoxidil 10mg tab NG SCH ×2 (09:00→18:03)
[2019-08-01 09:09] LABS: ANION GAP 7 mmol/L (5-15); BLOOD UREA NITROGEN 24 mg/dL (7-18); CALCIUM 8.8 MG/DL (8.5-10.1); CARBON DIOXIDE 27 MMOL/L (21-32); CHLORIDE 106 MMOL/L (98-107); CREATININE 0.7 MG/DL (0.55-1.30); POTASSIUM 3.9 MMOL/L (3.5-5.1); SODIUM 140 MMOL/L (136-145)
[2019-08-01] MEDS: metFORMIN 500mg tab NG SCH ×2 (09:13→18:02)
[2019-08-01] MEDS: Meropenem 1 GM in NS 55 ML IVPB SCH ×2 (09:14→21:22)
--- NOTE | 2019-08-01 11:10 | Infectious Diseases Prog Note ---
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 Aphasia R hemiplegia Leukocytosis improving Pseudomonas UTI RECOMMENDATION: continue Meropenem until expiration time f/u CBC Subjective ROS Limited/Unobtainable: Yes Constitutional: Denies: fever Allergies: Coded Allergies: UNABLE TO ASSESS (Unverified , 06/18/19) Objective Vital Signs Last 24 Hour Vital Signs Date Time Temp Pulse Resp B/P (MAP) Pulse Ox O2 Delivery O2 Flow Rate FiO2 08/01/19 08:00 98.4 77 20 100/48 (65) 95 08/01/19 04:00 98.8 89 18 142/73 (96) 97 08/01/19 00:00 98.9 83 20 136/64 (88) 97 07/31/19 21:00 Nasal Cannula 3.0 07/31/19 20:29 94 Nasal Cannula 2.0 28 07/31/19 20:00 98.9 95 20 95/65 (75) 97 07/31/19 17:22 140/75 07/31/19 17:22 140/75 07/31/19 16:00 98.8 93 18 120/90 (100) 97 07/31/19 13:09 140/75 07/31/19 12:00 98.7 75 20 140/75 (96) 97 Height (Feet): 5 Height (Inches): 8.00 Weight (Pounds): 146 General Appearance: no acute distress HEENT: mucous membranes moist Respiratory/Chest: lungs clear Cardiovascular: normal rate Abdomen: soft, non tender, other - GT feeding Extremities: other - R hand edema Neurologic/Psychiatric: aphasia, other - R hemiplegia Microbiology Date/Time Source Procedure Growth Status 07/30/19 07:45 Stool Clostridium difficile Toxin Assay - Final Complete Laboratory Tests Test 08/01/19 07:45 White Blood Count 16.7 K/UL (4.8-10.8) H Red Blood Count 3.76 M/UL (4.70-6.10) L Hemoglobin 12.0 G/DL (14.2-18.0) L Hematocrit 32.2 % (42.0-52.0) L Mean Corpuscular Volume 86 FL (80-99) Mean Corpuscular Hemoglobin 32.0 PG (27.0-31.0) H Mean Corpuscular Hemoglobin Concent 37.3 G/DL (32.0-36.0) H Red Cell Distribution Width 10.8 % (11.6-14.8) L Platelet Count 228 K/UL (150-450) Mean Platelet Volume 7.4 FL (6.5-10.1) Neutrophils (%) (Auto) 74.7 % (45.0-75.0) Lymphocytes (%) (Auto) 15.9 % (20.0-45.0) L Monocytes (%) (Auto) 6.2 % (1.0-10.0) Eosinophils (%) (Auto) 2.5 % (0.0-3.0) Basophils (%) (Auto) 0.7 % (0.0-2.0) Sodium Level 140 MMOL/L (136-145) Potassium Level 3.9 MMOL/L (3.5-5.1) Chloride Level 106 MMOL/L (98-107) Carbon Dioxide Level 27 MMOL/L (21-32) Anion Gap 7 mmol/L (5-15) Blood Urea Nitrogen 24 mg/dL (7-18) H Creatinine 0.7 MG/DL (0.55-1.30) Estimat Glomerular Filtration Rate > 60 mL/min (>60) Glucose Level 113 MG/DL (74-106) H Calcium Level 8.8 MG/DL (8.5-10.1) Current Medications Medications (Trade) Dose Ordered Sig/Leonor Route PRN Reason Start Time Stop Time Status Last Admin Dose Admin Acetaminophen (Tylenol) 650 mg Q4H PRN NG Mild Pain/Temp > 100.5 07/28/19 18:20 08/27/19 18:19 Barium Sulfate (Readi-Cat 2) 450 ml NOW PRN ORAL Radiology Procedure 07/30/19 16:45 08/01/19 16:38 Dextrose 1,000 ml @ 50 mls/hr Q20H IV 07/28/19 18:30 08/27/19 12:14 08/01/19 00:41 Insulin Aspart (NovoLOG) No Dose Q6HR SUBQ 07/29/19 00:00 08/03/19 17:59 Lisinopril (PriniviL) 20 mg DAILY NG 07/29/19 09:00 3/4/20 20:59 07/31/19 08:17 Loperamide HCl (Imodium) 2 mg Q6H PRN NG Diarrhea 07/28/19 18:20 08/27/19 18:19 Meropenem 1 gm/ Sodium Chloride 55 ml @ 110 mls/hr Q12HR IVPB 07/28/19 21:00 08/01/19 23:59 08/01/19 09:14 Metformin HCl (Glucophage) 500 mg BID NG 07/29/19 09:00 08/14/19 14:59 08/01/19 09:13 Metoclopramide HCl (Reglan) 5 mg EVERY 8 HOURS NG 07/28/19 22:00 08/25/19 14:59 08/01/19 05:57 Minoxidil (Loniten) 2.5 mg Q4H PRN NG bp over 160 syst 07/28/19 18:20 08/27/19 18:19 Minoxidil (Loniten) 10 mg TWICE A DAY NG 07/29/19 09:00 08/06/19 17:59 07/31/19 17:22 Bob Gilmore MD Aug 01, 2019 11:10
--- NOTE | 2019-08-01 13:38 | General Progress Note ---
Assessment/Plan Problem List: (1) Cellulitis of right hand ICD Codes: L03.113 - Cellulitis of right upper limb SNOMED: 97776941 (2) Altered level of consciousness ICD Codes: R40.4 - Transient alteration of awareness SNOMED: 0959080 (3) Sepsis ICD Codes: A41.9 - Sepsis, unspecified organism SNOMED: 84424703 Qualifiers: Qualified Codes: A41.9 - Sepsis, unspecified organism (4) Left middle cerebral artery stroke ICD Codes: I63.512 - Cerebral infarction due to unspecified occlusion or stenosis of left middle cerebral artery SNOMED: 639208949 (5) Left carotid artery occlusion ICD Codes: I65.22 - Occlusion and stenosis of left carotid artery SNOMED: 844131473635259 (6) Hypernatremia Assessment & Plan: better ICD Codes: E87.0 - Hyperosmolality and hypernatremia SNOMED: 005057996 (7) Hypokalemia Assessment & Plan: better ICD Codes: E87.6 - Hypokalemia SNOMED: 75732632 (8) DM (diabetes mellitus) ICD Codes: E11.9 - Type 2 diabetes mellitus without complications SNOMED: 68603025 (9) ARF (acute renal failure) Assessment & Plan: ok ICD Codes: N17.9 - Acute kidney failure, unspecified SNOMED: 49587273 (10) Hypertension ICD Codes: I10 - Essential (primary) hypertension SNOMED: 73815033 (11) Aspiration pneumonia ICD Codes: J69.0 - Pneumonitis due to inhalation of food and vomit SNOMED: 484012079 (12) UTI (urinary tract infection) ICD Codes: N39.0 - Urinary tract infection, site not specified SNOMED: 56475064 Status: stable, unchanged Assessment/Plan: DC ICF follow labs TF per GI continue ASA SSI cont Lisinopril cont Metformin Discussed with RN Subjective Allergies: Coded Allergies: UNABLE TO ASSESS (Unverified , 06/18/19) Subjective In NAD Objective Last 24 Hour Vital Signs Date Time Temp Pulse Resp B/P (MAP) Pulse Ox O2 Delivery O2 Flow Rate FiO2 08/01/19 08:00 98.4 77 20 100/48 (65) 95 08/01/19 04:00 98.8 89 18 142/73 (96) 97 08/01/19 00:00 98.9 83 20 136/64 (88) 97 07/31/19 21:00 Nasal Cannula 3.0 07/31/19 20:29 94 Nasal Cannula 2.0 28 07/31/19 20:00 98.9 95 20 95/65 (75) 97 07/31/19 17:22 140/75 07/31/19 17:22 140/75 07/31/19 16:00 98.8 93 18 120/90 (100) 97 Intake and Output 07/31/19 08/01/19 19:00 07:00 Intake Total 1360 ml 610 ml Output Total 1600 ml 350 ml Balance -240 ml 260 ml Free Water 300 ml 150 ml IV Total 660 ml 410 ml Tube Feeding 400 ml 50 ml Output Urine Total 1600 ml 350 ml # Voids 3 # Bowel Movements 2 Laboratory Tests 08/01/19 07:45: White Blood Count 16.7H, Red Blood Count 3.76L, Hemoglobin 12.0L, Hematocrit 32.2L, Mean Corpuscular Volume 86, Mean Corpuscular Hemoglobin 32.0H, Mean Corpuscular Hemoglobin Concent 37.3H, Red Cell Distribution Width 10.8L, Platelet Count 228, Mean Platelet Volume 7.4, Neutrophils (%) (Auto) 74.7, Lymphocytes (%) (Auto) 15.9L, Monocytes (%) (Auto) 6.2, Eosinophils (%) (Auto) 2.5, Basophils (%) (Auto) 0.7, Sodium Level 140, Potassium Level 3.9, Chloride Level 106, Carbon Dioxide Level 27, Anion Gap 7, Blood Urea Nitrogen 24H, Creatinine 0.7, Estimat Glomerular Filtration Rate > 60, Glucose Level 113H, Calcium Level 8.8 Height (Feet): 5 Height (Inches): 8.00 Weight (Pounds): 146 Respiratory/Chest: lungs clear Edema: no edema noted Generalized Kaz Gilmore MD Aug 01, 2019 13:38
[2019-08-01 16:00] VITALS: BP_SYST 124; BP_SYST 157; BP_DIAS 74; BP_DIAS 83
--- NOTE | 2019-08-01 16:41 | NUR ---
CASE MANAGEMENT:REVIEW 07/30/2019 SI;RT HAND CELLULITIS. SEPSIS. CVA. UTI. 98.7 89 20 108/63 96% 3L NC NO LABS AVAILABLE IS;MEROPOENEM IV Q12 HRS REGLAN NGT Q8 HRS LONITEN NGT BID PRINIVIL NGT QD MED SURG STATUS CASE MANAGEMENT:REVIEW 07/31/2019 SI;RT HAND CELLULITIS. SEPSIS. CVA. UTI 98.9 95 20 95/65 97% 3L NC NO LABS AVAILABLE THIS DATE IS;MEROPOENEM IV Q12 HRS REGLAN NGT Q8 HRS LONITEN NGT BID PRINIVIL NGT QD MED SURG STATUS CASE MANAGEMENT:REVIEW 08/01/2019 SI;RT HAND CELLULITIS. SEPSIS. CVA. UTI. 98.9 20 95 142/73 94% 2L NC FIO2 28% WBC 16.7 BUN 24 ISMEROPOENEM IV Q12 HRS REGLAN NGT Q8 HRS LONITEN NGT BID PRINIVIL NGT QD MED SURG STATUS DCP;PLACEMENT PENDING INSURANCE
--- NOTE | 2019-08-01 19:43 | NUR ---
HAND-OFF: Report given to gracy. Addendum: 08/01/19 at 1947 by Marline Keller RN Endorsed high fall risk status to oncoming shift. Side rails up. Bed locked in lowest position, alarm on high sensitivity setting. Frequent rounding continues for patient safety.
[2019-08-01 20:00] VITALS: BP 139/68
--- NOTE | 2019-08-01 20:00 | NUR ---
NURSE NOTES: Patient received in bed, nonverbal. No acute distress. GT at 50cc/hr, HOB elevated at 45 degrees. Left soft wrist restraints applied to prevent pulling devices. Pulses+ sensations+ movement+, no edema, no skin breakdown. Will continue plan of care.
--- NOTE | 2019-08-01 20:47 | General Progress Note ---
Assessment/Plan Status: stable, unchanged Assessment/Plan: Assessment - Acute CVA - AMS - Dysphagia - s/p GT - leukocytosis, suspected aspiration - arrhythmia - free water deficit, hypernatremia - UTI Recommendations - IVF - monitor labs - check CT abd/pelvis - noted - abx per ID Subjective Allergies: Coded Allergies: UNABLE TO ASSESS (Unverified , 06/18/19) Subjective above noted NAD tolerating TF Objective Last 24 Hour Vital Signs Date Time Temp Pulse Resp B/P (MAP) Pulse Ox O2 Delivery O2 Flow Rate FiO2 08/01/19 20:00 98.9 77 22 139/68 (91) 95 08/01/19 18:03 157/74 08/01/19 16:00 98.4 56 18 157/74 (101) 96 08/01/19 09:00 Nasal Cannula 3.0 08/01/19 08:00 98.4 77 20 100/48 (65) 95 08/01/19 04:00 98.8 89 18 142/73 (96) 97 08/01/19 00:00 98.9 83 20 136/64 (88) 97 07/31/19 21:00 Nasal Cannula 3.0 Intake and Output 07/31/19 08/01/19 19:00 07:00 Intake Total 1360 ml 610 ml Output Total 1600 ml 350 ml Balance -240 ml 260 ml Free Water 300 ml 150 ml IV Total 660 ml 410 ml Tube Feeding 400 ml 50 ml Output Urine Total 1600 ml 350 ml # Voids 3 # Bowel Movements 2 Laboratory Tests 08/01/19 07:45: White Blood Count 16.7H, Red Blood Count 3.76L, Hemoglobin 12.0L, Hematocrit 32.2L, Mean Corpuscular Volume 86, Mean Corpuscular Hemoglobin 32.0H, Mean Corpuscular Hemoglobin Concent 37.3H, Red Cell Distribution Width 10.8L, Platelet Count 228, Mean Platelet Volume 7.4, Neutrophils (%) (Auto) 74.7, Lymphocytes (%) (Auto) 15.9L, Monocytes (%) (Auto) 6.2, Eosinophils (%) (Auto) 2.5, Basophils (%) (Auto) 0.7, Sodium Level 140, Potassium Level 3.9, Chloride Level 106, Carbon Dioxide Level 27, Anion Gap 7, Blood Urea Nitrogen 24H, Creatinine 0.7, Estimat Glomerular Filtration Rate > 60, Glucose Level 113H, Calcium Level 8.8 Height (Feet): 5 Height (Inches): 8.00 Weight (Pounds): 146 Objective Elderly man awake, looks at NCAT supple Coarse ronchi RR abd soft, (+) GT no edema Barb Lee MD Aug 01, 2019 20:47
--- NOTE | 2019-08-01 21:00 | NUR ---
NURSE NOTES: IV infilitrated. Discontinued. new IV access obtained on left forearm
[2019-08-02] VITALS: BP 142/70
[2019-08-02 04:00] VITALS: BP 108/69
[2019-08-02] MEDS: NovoLOG Insulin Flexpen SUBQ SCH ×4 (05:56→23:50)
--- NOTE | 2019-08-02 07:29 | NUR ---
NURSE NOTES: Received patient in bed awake. With O2 via NC in place. No SOB or acute distress. IV line intact and patent. Condom catheter in place. Gtube intact, feeding infusing well. HOB elevated. Bed locked in lowest position. Call light within reach. Will continue plan of care. Addendum: 08/02/19 at 0742 by Marline Keller RN Left soft wrist restrain in place, pulses palpable, no skin issues noted on site, sensation present.
--- NOTE | 2019-08-02 07:30 | NUR ---
HAND-OFF: Report given to Marline BADILLO.
[2019-08-02 08:00] VITALS: BP 139/69
[2019-08-02] MEDS: metFORMIN 500mg tab NG SCH ×2 (09:14→17:19)
[2019-08-02] MEDS: Lisinopril 20mg tab NG SCH (09:14)
[2019-08-02] MEDS: Minoxidil 10mg tab NG SCH ×2 (09:15→17:19)
--- NOTE | 2019-08-02 10:28 | Infectious Diseases Prog Note ---
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 Aphasia R hemiplegia Leukocytosis improving Pseudomonas UTI RECOMMENDATION: Observe off antibiotic f/u CBC Subjective ROS Limited/Unobtainable: Yes Constitutional: Denies: fever Allergies: Coded Allergies: UNABLE TO ASSESS (Unverified , 06/18/19) Objective Vital Signs Last 24 Hour Vital Signs Date Time Temp Pulse Resp B/P (MAP) Pulse Ox O2 Delivery O2 Flow Rate FiO2 08/02/19 09:15 139/69 08/02/19 09:14 139/69 08/02/19 08:00 98.8 77 19 139/69 (92) 99 08/02/19 04:00 98.2 77 21 108/69 (82) 97 08/02/19 00:00 97.8 81 22 142/70 (94) 97 08/01/19 21:00 Nasal Cannula 3.0 08/01/19 20:00 98.9 77 22 139/68 (91) 95 08/01/19 18:03 157/74 08/01/19 16:00 98.4 56 18 157/74 (101) 96 Height (Feet): 5 Height (Inches): 8.00 Weight (Pounds): 146 General Appearance: no acute distress HEENT: mucous membranes moist Respiratory/Chest: lungs clear Cardiovascular: normal rate Abdomen: soft, non tender Extremities: other - R hand edema Neurologic/Psychiatric: aphasia, other - R hemiplegia Current Medications Medications (Trade) Dose Ordered Sig/Leonor Route PRN Reason Start Time Stop Time Status Last Admin Dose Admin Acetaminophen (Tylenol) 650 mg Q4H PRN NG Mild Pain/Temp > 100.5 07/28/19 18:20 08/27/19 18:19 Insulin Aspart (NovoLOG) No Dose Q6HR SUBQ 07/29/19 00:00 08/03/19 17:59 Lisinopril (PriniviL) 20 mg DAILY NG 07/29/19 09:00 08/17/19 20:59 08/02/19 09:14 Loperamide HCl (Imodium) 2 mg Q6H PRN NG Diarrhea 07/28/19 18:20 08/27/19 18:19 Metformin HCl (Glucophage) 500 mg BID NG 07/29/19 09:00 08/14/19 14:59 08/02/19 09:14 Metoclopramide HCl (Reglan) 5 mg EVERY 8 HOURS NG 07/28/19 22:00 08/25/19 14:59 08/02/19 05:56 Minoxidil (Loniten) 2.5 mg Q4H PRN NG bp over 160 syst 07/28/19 18:20 08/27/19 18:19 Minoxidil (Loniten) 10 mg TWICE A DAY NG 07/29/19 09:00 08/06/19 17:59 08/02/19 09:15 Bob Gilmore MD Aug 02, 2019 10:28
[2019-08-02 12:00] VITALS: BP 131/67
--- NOTE | 2019-08-02 14:42 | NUR ---
RD ASSESSMENT & RECOMMENDATIONS SEE CARE ACTIVITY FOR COMPLETE ASSESSMENT DAILY ESTIMATED NEEDS: Needs based on sepsis and wound/ 72kg adj 25-30 kcals/kg 9632-5288 total kcals 1.25-2 g protein/kg 90-144 g total protein 25-30 mL/kg 8447-7136 total fluid mLs NUTRITION DIAGNOSIS: * Swallowing difficulty R/T dysphagia, s/p new and old CVA as evidenced by NPO per OCCUPATIONAL HYGIENIST rec, has been on NGT feeds, s/p PEG placement, on GT feeds. * Altered nutrition related lab values r/t sepsis, DM, volume deficit as evidenced by elev WBC (16.7), elev POC glu (137 136 114 127now improved) w/ A1C 6.9, elev Na (153-> wnl ->152->wnl), elev BUN (78-> 24), elev creat(1.6, now wnl). CURRENT TF:Vital 1.2 @ 50ml x24 hrs ENTERAL NUTRITION RECOMMENDATIONS: VITAL 1.2 @ 65ml/hr x 24 hrs to provide 1560ml, 1872kcal, 117g prot, 1265ml free water - Increase slowly 10ml q 6-8 hrs as tolerated to goal - HOB over 30 degrees - H20 flush of 180ml q 4 hrs ADDITIONAL RECOMMENDATIONS: 1) CALIBRATED weight (fluctuating wts)-> REC TO RECALIBRATE BED 2) Monitor for readiness fo oral grat, MBSS- monitor OCCUPATIONAL HYGIENIST rec 3) Monitor BGs closely- currently improved, but TF not meeting goal 4) Monitor hydration status and renal fxn: improving 5) Monitor lytes, replete as needed 6) WOUND HEALING: add Vit C 250mg QD, ZnSO4 220mg QD x 10 days add APOORVA 1pkt BID once TF well tolerated
--- NOTE | 2019-08-02 14:52 | General Progress Note ---
Assessment/Plan Problem List: (1) Cellulitis of right hand ICD Codes: L03.113 - Cellulitis of right upper limb SNOMED: 86718109 (2) Altered level of consciousness ICD Codes: R40.4 - Transient alteration of awareness SNOMED: 8345481 (3) Sepsis ICD Codes: A41.9 - Sepsis, unspecified organism SNOMED: 74317076 Qualifiers: Qualified Codes: A41.9 - Sepsis, unspecified organism (4) Left middle cerebral artery stroke ICD Codes: I63.512 - Cerebral infarction due to unspecified occlusion or stenosis of left middle cerebral artery SNOMED: 983259242 (5) Left carotid artery occlusion ICD Codes: I65.22 - Occlusion and stenosis of left carotid artery SNOMED: 358653667803377 (6) Hypernatremia Assessment & Plan: better ICD Codes: E87.0 - Hyperosmolality and hypernatremia SNOMED: 026343356 (7) Hypokalemia Assessment & Plan: better ICD Codes: E87.6 - Hypokalemia SNOMED: 83187156 (8) DM (diabetes mellitus) ICD Codes: E11.9 - Type 2 diabetes mellitus without complications SNOMED: 30551055 (9) ARF (acute renal failure) Assessment & Plan: ok ICD Codes: N17.9 - Acute kidney failure, unspecified SNOMED: 91030602 (10) Hypertension ICD Codes: I10 - Essential (primary) hypertension SNOMED: 66318996 (11) Aspiration pneumonia ICD Codes: J69.0 - Pneumonitis due to inhalation of food and vomit SNOMED: 060146666 (12) UTI (urinary tract infection) ICD Codes: N39.0 - Urinary tract infection, site not specified SNOMED: 58020257 Status: stable, unchanged Assessment/Plan: TF per GI continue ASA SSI cont Lisinopril cont Metformin Discussed with RN Subjective Allergies: Coded Allergies: UNABLE TO ASSESS (Unverified , 06/18/19) Subjective In NAD Objective Last 24 Hour Vital Signs Date Time Temp Pulse Resp B/P (MAP) Pulse Ox O2 Delivery O2 Flow Rate FiO2 08/02/19 12:00 98.4 76 18 131/67 (88) 99 08/02/19 09:15 139/69 08/02/19 09:14 139/69 08/02/19 09:00 Nasal Cannula 3.0 08/02/19 08:02 96 Nasal Cannula 2.0 28 08/02/19 08:00 98.8 77 19 139/69 (92) 99 08/02/19 04:00 98.2 77 21 108/69 (82) 97 08/02/19 00:00 97.8 81 22 142/70 (94) 97 08/01/19 21:00 Nasal Cannula 3.0 08/01/19 20:00 98.9 77 22 139/68 (91) 95 08/01/19 18:03 157/74 08/01/19 16:00 98.4 56 18 157/74 (101) 96 Intake and Output 08/01/19 08/02/19 19:00 07:00 Intake Total 1005 ml Output Total 1000 ml 450 ml Balance -1000 ml 555 ml Free Water 300 ml IV Total 55 ml Tube Feeding 650 ml Output Urine Total 1000 ml 450 ml # Voids 1 # Bowel Movements 3 Height (Feet): 5 Height (Inches): 8.00 Weight (Pounds): 146 Cardiovascular: normal rate Respiratory/Chest: lungs clear Edema: no edema noted Generalized Kaz Gilmore MD Aug 02, 2019 14:52
[2019-08-02 16:00] VITALS: BP_SYST 108; BP_SYST 117; BP_DIAS 63; BP_DIAS 69
--- NOTE | 2019-08-02 19:47 | NUR ---
HAND-OFF: Report given to xyris.
[2019-08-02 20:00] VITALS: BP 136/67
--- NOTE | 2019-08-02 20:00 | NUR ---
NURSE NOTES: Patient received in bed, awake, soft wrist restraint on left wrist to prevent pulling. Patient repositioned. GT running at 50cc/hr, tolerating well, no residual. HOB elevated 35degrees. Will continue to monitor.
--- NOTE | 2019-08-02 22:32 | General Progress Note ---
Assessment/Plan Status: stable, unchanged Assessment/Plan: Assessment - Acute CVA - AMS - Dysphagia - s/p GT - leukocytosis, suspected aspiration - arrhythmia - free water deficit, hypernatremia - UTI Recommendations - IVF - monitor labs - check CT abd/pelvis - noted - abx per ID Subjective Allergies: Coded Allergies: UNABLE TO ASSESS (Unverified , 06/18/19) Subjective above noted NAD Confused tolerating TF Objective Last 24 Hour Vital Signs Date Time Temp Pulse Resp B/P (MAP) Pulse Ox O2 Delivery O2 Flow Rate FiO2 08/02/19 21:00 Nasal Cannula 3.0 08/02/19 20:00 97.7 79 19 136/67 (90) 97 08/02/19 19:53 97 Nasal Cannula 2.0 28 08/02/19 17:19 117/63 08/02/19 16:00 98.0 92 19 117/63 (81) 99 08/02/19 12:00 98.4 76 18 131/67 (88) 99 08/02/19 09:15 139/69 08/02/19 09:14 139/69 08/02/19 09:00 Nasal Cannula 3.0 08/02/19 08:02 96 Nasal Cannula 2.0 28 08/02/19 08:00 98.8 77 19 139/69 (92) 99 08/02/19 04:00 98.2 77 21 108/69 (82) 97 08/02/19 00:00 97.8 81 22 142/70 (94) 97 Intake and Output 08/01/19 08/02/19 19:00 07:00 Intake Total 1005 ml Output Total 1000 ml 450 ml Balance -1000 ml 555 ml Free Water 300 ml IV Total 55 ml Tube Feeding 650 ml Output Urine Total 1000 ml 450 ml # Voids 1 # Bowel Movements 3 Height (Feet): 5 Height (Inches): 8.00 Weight (Pounds): 146 Objective Elderly man awake, looks at NCAT supple Coarse ronchi RR abd soft, (+) GT no edema Barb Lee MD Aug 02, 2019 22:32
[2019-08-03] VITALS: BP 108/81
[2019-08-03 04:00] VITALS: BP 128/57
--- NOTE | 2019-08-03 04:00 | NUR ---
NURSE NOTES: Dressing changed on buttocks
[2019-08-03] MEDS: NovoLOG Insulin Flexpen SUBQ SCH ×2 (05:06→12:00)
[2019-08-03 07:16] LABS: BASOPHILS % (AUTO) 0.6 % (0.0-2.0); HEMATOCRIT 34.2 % (42.0-52.0); HEMOGLOBIN 12.5 G/DL (14.2-18.0); LYMPHOCYTES % (AUTO) 18.6 % (20.0-45.0); MEAN CORPUSCULAR VOLUME 86 FL (80-99); MONOCYTES % (AUTO) 5.6 % (1.0-10.0); NEUTROPHILS % (AUTO) 73.2 % (45.0-75.0); PLATELET COUNT 279 K/UL (150-450); RED BLOOD COUNT 3.97 M/UL (4.70-6.10); WHITE BLOOD COUNT 12.8 K/UL (4.8-10.8)
--- NOTE | 2019-08-03 07:33 | NUR ---
HAND-OFF: Report given to Maribell BADILLO.
--- NOTE | 2019-08-03 07:51 | NUR ---
NURSE NOTES: received report from JUSTINO Bai. patient in bed. awake. non verbal. no respiratory distress noted with 2l via NC. no facial grimacing. GTF running At /hr. HOB at all times. IV on LFA 22g g saline lock. turn and reposition. left hand restraint for prevention pulling devices. skin intact. bed in the lowest position and locked. call light within reach. alarm on, will continue to provide plan of care.
[2019-08-03 08:00] VITALS: BP 138/69
[2019-08-03] MEDS: Lisinopril 20mg tab NG SCH (09:12)
[2019-08-03] MEDS: metFORMIN 500mg tab NG SCH ×2 (09:12→17:51)
[2019-08-03] MEDS: Minoxidil 10mg tab NG SCH ×2 (09:14→17:51)
[2019-08-03 12:00] VITALS: BP 117/55
--- NOTE | 2019-08-03 14:12 | Infectious Diseases Prog Note ---
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 Aphasia R hemiplegia Leukocytosis improving Pseudomonas UTI RECOMMENDATION: Observe off antibiotic f/u CBC Subjective ROS Limited/Unobtainable: Yes Neurologic: Reports: confusion, other - on restraint Allergies: Coded Allergies: UNABLE TO ASSESS (Unverified , 06/18/19) Objective Vital Signs Last 24 Hour Vital Signs Date Time Temp Pulse Resp B/P (MAP) Pulse Ox O2 Delivery O2 Flow Rate FiO2 08/03/19 12:00 97.8 64 19 117/55 (75) 98 08/03/19 09:14 138/69 08/03/19 09:12 138/69 08/03/19 09:00 Nasal Cannula 3.0 08/03/19 08:00 97.5 82 18 138/69 (92) 97 08/03/19 04:00 97.8 75 20 128/57 (80) 99 08/03/19 00:00 98.1 52 20 108/81 (90) 98 08/02/19 21:00 Nasal Cannula 3.0 08/02/19 20:00 97.7 79 19 136/67 (90) 97 08/02/19 19:53 97 Nasal Cannula 2.0 28 08/02/19 17:19 117/63 08/02/19 16:00 98.0 92 19 117/63 (81) 99 Height (Feet): 5 Height (Inches): 8.00 Weight (Pounds): 147 General Appearance: no acute distress HEENT: mucous membranes moist Respiratory/Chest: lungs clear Cardiovascular: normal rate Abdomen: soft, non tender, other - GT feeding Extremities: other - R hand edema Neurologic/Psychiatric: aphasia, other - R hemiplegia Laboratory Tests Test 08/03/19 05:41 White Blood Count 12.8 K/UL (4.8-10.8) H Red Blood Count 3.97 M/UL (4.70-6.10) L Hemoglobin 12.5 G/DL (14.2-18.0) L Hematocrit 34.2 % (42.0-52.0) L Mean Corpuscular Volume 86 FL (80-99) Mean Corpuscular Hemoglobin 31.4 PG (27.0-31.0) H Mean Corpuscular Hemoglobin Concent 36.5 G/DL (32.0-36.0) H Red Cell Distribution Width 11.0 % (11.6-14.8) L Platelet Count 279 K/UL (150-450) Mean Platelet Volume 6.6 FL (6.5-10.1) Neutrophils (%) (Auto) 73.2 % (45.0-75.0) Lymphocytes (%) (Auto) 18.6 % (20.0-45.0) L Monocytes (%) (Auto) 5.6 % (1.0-10.0) Eosinophils (%) (Auto) 2.0 % (0.0-3.0) Basophils (%) (Auto) 0.6 % (0.0-2.0) Current Medications Medications (Trade) Dose Ordered Sig/Leonor Route PRN Reason Start Time Stop Time Status Last Admin Dose Admin Acetaminophen (Tylenol) 650 mg Q4H PRN NG Mild Pain/Temp > 100.5 07/28/19 18:20 08/27/19 18:19 Insulin Aspart (NovoLOG) No Dose Q6HR SUBQ 07/29/19 00:00 08/03/19 17:59 Lisinopril (PriniviL) 20 mg DAILY NG 07/29/19 09:00 08/17/19 20:59 08/03/19 09:12 Loperamide HCl (Imodium) 2 mg Q6H PRN NG Diarrhea 07/28/19 18:20 08/27/19 18:19 Metformin HCl (Glucophage) 500 mg BID NG 07/29/19 09:00 08/14/19 14:59 08/03/19 09:12 Metoclopramide HCl (Reglan) 5 mg EVERY 8 HOURS NG 07/28/19 22:00 08/25/19 14:59 08/03/19 13:34 Minoxidil (Loniten) 2.5 mg Q4H PRN NG bp over 160 syst 07/28/19 18:20 08/27/19 18:19 Minoxidil (Loniten) 10 mg TWICE A DAY NG 07/29/19 09:00 08/06/19 17:59 08/03/19 09:14 Bob Gilmore MD Aug 03, 2019 14:12
--- NOTE | 2019-08-03 14:37 | NUR ---
CASE MANAGEMENT:REVIEW SI;SEPSIS. APHASIA. ARF. DM. 98.1 82 20 138/69 97% 3L NC FIO2 28% WBC 12.8 BUN 24 IS;LISINOPRIL NGT QD LONITEN NGT BID REGLAN NGT Q8 HRS MED SURG STATUS DCP;PLACEMENT PENDING INSURANCE
[2019-08-03 16:00] VITALS: BP 124/59
--- NOTE | 2019-08-03 19:28 | NUR ---
HAND-OFF: Report given to JUSTINO Perry.
[2019-08-03 20:00] VITALS: BP 140/64
--- NOTE | 2019-08-03 20:15 | NUR ---
NURSE NOTES: RECEIVED PATIENT FROM JUSTINO ROBLERO. PATIENT IS AWAKE, RESTING IN BED, AAO X0, NON-VERBAL. PATIENT IS ON N/C 2L, NO ACUTE DISTRESS NOTED. CONDOM CATH INTACT AND DRAINING WELL. SOFT WRIST RESTRAINT ON LEFT HAND, NO REDNESS, PULSES PRESENT. WOUND DRESSINGS INTACT. IV ON LEFT FA INTACT AND PATENT. BED IS LOCKED AND LOW, BED ALARMS ACTIVE ON ZONE 1, CALL LIGHT IS WITHIN REACH, SIDE RAILS UP X2. WILL CONTINUE TO MONITOR.
--- NOTE | 2019-08-03 20:24 | General Progress Note ---
Assessment/Plan Status: stable, unchanged Assessment/Plan: Assessment - Acute CVA - AMS - Dysphagia - s/p GT - leukocytosis, suspected aspiration - arrhythmia - free water deficit, hypernatremia - UTI Recommendations - IVF - monitor labs - check CT abd/pelvis - noted - abx per ID Subjective Allergies: Coded Allergies: UNABLE TO ASSESS (Unverified , 06/18/19) Subjective above noted NAD Confused tolerating TF Objective Last 24 Hour Vital Signs Date Time Temp Pulse Resp B/P (MAP) Pulse Ox O2 Delivery O2 Flow Rate FiO2 08/03/19 17:51 124/59 08/03/19 16:00 98.0 79 18 124/59 (80) 97 08/03/19 12:00 97.8 64 19 117/55 (75) 98 08/03/19 09:14 138/69 08/03/19 09:12 138/69 08/03/19 09:00 Nasal Cannula 3.0 08/03/19 08:54 95 Nasal Cannula 2.0 28 08/03/19 08:00 97.5 82 18 138/69 (92) 97 08/03/19 04:00 97.8 75 20 128/57 (80) 99 08/03/19 00:00 98.1 52 20 108/81 (90) 98 08/02/19 21:00 Nasal Cannula 3.0 Intake and Output 08/02/19 08/03/19 19:00 07:00 Intake Total 50 ml 900 ml Output Total 1150 ml Balance 50 ml -250 ml Free Water 300 ml Tube Feeding 50 ml 600 ml Output Urine Total 1150 ml # Bowel Movements 2 Laboratory Tests 08/03/19 05:41: White Blood Count 12.8H, Red Blood Count 3.97L, Hemoglobin 12.5L, Hematocrit 34.2L, Mean Corpuscular Volume 86, Mean Corpuscular Hemoglobin 31.4H, Mean Corpuscular Hemoglobin Concent 36.5H, Red Cell Distribution Width 11.0L, Platelet Count 279, Mean Platelet Volume 6.6, Neutrophils (%) (Auto) 73.2, Lymphocytes (%) (Auto) 18.6L, Monocytes (%) (Auto) 5.6, Eosinophils (%) (Auto) 2.0, Basophils (%) (Auto) 0.6 Height (Feet): 5 Height (Inches): 8.00 Weight (Pounds): 147 Objective Elderly man awake, looks at MD NCAT supple Coarse ronchi RR abd soft, (+) GT no edema Barb Lee MD Aug 03, 2019 20:24
[2019-08-04] VITALS: BP 122/64
[2019-08-04 04:00] VITALS: BP 149/61
--- NOTE | 2019-08-04 07:22 | NUR ---
HAND-OFF: Report given to JUSTINO ROBLERO.
--- NOTE | 2019-08-04 07:40 | NUR ---
NURSE NOTES: received report from Vicky,JUSTINO. patient in bed. non verbal. no respiratory distress with o2 2l via NC. GTF running at 50. HOB at all times. sofr restraint on lt wrist. condom cath draining. yellow. IV on LFA22 saline lock. intact. bed in the lowest position and locked. call light within reach. will continue to provide plan of care.
[2019-08-04 08:00] VITALS: BP 150/60
[2019-08-04] MEDS: Minoxidil 10mg tab NG SCH ×2 (09:07→17:44)
[2019-08-04] MEDS: Lisinopril 20mg tab NG SCH (09:07)
[2019-08-04] MEDS: metFORMIN 500mg tab NG SCH ×2 (09:07→17:44)
--- NOTE | 2019-08-04 10:44 | General Progress Note ---
Assessment/Plan Status: stable, unchanged Assessment/Plan: Assessment - Acute CVA - AMS - Dysphagia - s/p GT - leukocytosis, suspected aspiration - arrhythmia - free water deficit, hypernatremia - UTI Recommendations - IVF - monitor labs - check CT abd/pelvis - Done / noted - abx per ID Subjective Allergies: Coded Allergies: UNABLE TO ASSESS (Unverified , 06/18/19) Subjective above noted NAD Confused tolerating TF Objective Last 24 Hour Vital Signs Date Time Temp Pulse Resp B/P (MAP) Pulse Ox O2 Delivery O2 Flow Rate FiO2 08/04/19 09:07 150/60 08/04/19 09:07 150/60 08/04/19 08:00 98.6 85 19 150/60 (90) 97 08/04/19 04:00 98.2 51 20 149/61 (90) 97 08/04/19 00:00 98.0 73 20 122/64 (83) 97 08/03/19 21:00 Nasal Cannula 3.0 08/03/19 20:26 96 Nasal Cannula 2.0 28 08/03/19 20:00 97.4 61 20 140/64 (89) 92 08/03/19 17:51 124/59 08/03/19 16:00 98.0 79 18 124/59 (80) 97 08/03/19 12:00 97.8 64 19 117/55 (75) 98 Intake and Output 08/03/19 08/04/19 19:00 07:00 Intake Total 900 ml 900 ml Output Total 500 ml Balance 900 ml 400 ml Free Water 300 ml 300 ml Tube Feeding 600 ml 600 ml Output Urine Total 500 ml Height (Feet): 5 Height (Inches): 8.00 Weight (Pounds): 147 Objective Elderly man awake, looks at NCAT supple Coarse ronchi RR abd soft, (+) GT no edema Barb Lee MD Aug 04, 2019 10:44
--- NOTE | 2019-08-04 11:00 | Infectious Diseases Prog Note ---
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 Aphasia R hemiplegia Leukocytosis improving Pseudomonas UTI treated RECOMMENDATION: Observe off antibiotic f/u CBC Subjective ROS Limited/Unobtainable: Yes Constitutional: Denies: fever Neurologic: Reports: confusion, other - on restraint Allergies: Coded Allergies: UNABLE TO ASSESS (Unverified , 06/18/19) Objective Vital Signs Last 24 Hour Vital Signs Date Time Temp Pulse Resp B/P (MAP) Pulse Ox O2 Delivery O2 Flow Rate FiO2 08/04/19 09:07 150/60 08/04/19 09:07 150/60 08/04/19 08:00 98.6 85 19 150/60 (90) 97 08/04/19 04:00 98.2 51 20 149/61 (90) 97 08/04/19 00:00 98.0 73 20 122/64 (83) 97 08/03/19 21:00 Nasal Cannula 3.0 08/03/19 20:26 96 Nasal Cannula 2.0 28 08/03/19 20:00 97.4 61 20 140/64 (89) 92 08/03/19 17:51 124/59 08/03/19 16:00 98.0 79 18 124/59 (80) 97 08/03/19 12:00 97.8 64 19 117/55 (75) 98 Height (Feet): 5 Height (Inches): 8.00 Weight (Pounds): 147 General Appearance: no acute distress HEENT: mucous membranes moist Respiratory/Chest: lungs clear Cardiovascular: normal rate Abdomen: soft, non tender, other - GT feeding Extremities: other - r hand edema decreasing Skin: no rash Neurologic/Psychiatric: aphasia Current Medications Medications (Trade) Dose Ordered Sig/Leonor Route PRN Reason Start Time Stop Time Status Last Admin Dose Admin Acetaminophen (Tylenol) 650 mg Q4H PRN NG Mild Pain/Temp > 100.5 07/28/19 18:20 08/27/19 18:19 Lisinopril (PriniviL) 20 mg DAILY NG 07/29/19 09:00 08/17/19 20:59 08/04/19 09:07 Loperamide HCl (Imodium) 2 mg Q6H PRN NG Diarrhea 07/28/19 18:20 08/27/19 18:19 Metformin HCl (Glucophage) 500 mg BID NG 07/29/19 09:00 08/14/19 14:59 08/04/19 09:07 Metoclopramide HCl (Reglan) 5 mg EVERY 8 HOURS NG 07/28/19 22:00 08/25/19 14:59 08/04/19 06:28 Minoxidil (Loniten) 2.5 mg Q4H PRN NG bp over 160 syst 07/28/19 18:20 08/27/19 18:19 Minoxidil (Loniten) 10 mg TWICE A DAY NG 07/29/19 09:00 08/06/19 17:59 08/04/19 09:07 Bob Gilmore MD Aug 04, 2019 11:00
--- NOTE | 2019-08-04 11:42 | NUR ---
CASE MANAGEMENT:REVIEW SI;SEPSIS. APHASIA. ARF. DM. CVA. 98.6 51 20 160/60 97% 3L NC NO LABS THIS DATE IS;LISINOPRIL NGT QD LONITEN NGT BID REGLAN NGT Q8 HRS MED SURG STATUS PLAN;PLACEMENT PENDING [facility] APPROVAL DCP;PLACEMENT
[2019-08-04 12:00] VITALS: BP 144/79
--- NOTE | 2019-08-04 12:38 | General Progress Note ---
Assessment/Plan Problem List: (1) Cellulitis of right hand ICD Codes: L03.113 - Cellulitis of right upper limb SNOMED: 01414701 (2) Altered level of consciousness ICD Codes: R40.4 - Transient alteration of awareness SNOMED: 2844344 (3) Sepsis ICD Codes: A41.9 - Sepsis, unspecified organism SNOMED: 31148881 Qualifiers: Qualified Codes: A41.9 - Sepsis, unspecified organism (4) Left middle cerebral artery stroke ICD Codes: I63.512 - Cerebral infarction due to unspecified occlusion or stenosis of left middle cerebral artery SNOMED: 990205129 (5) Left carotid artery occlusion ICD Codes: I65.22 - Occlusion and stenosis of left carotid artery SNOMED: 183546318670332 (6) Hypernatremia Assessment & Plan: better ICD Codes: E87.0 - Hyperosmolality and hypernatremia SNOMED: 399335161 (7) Hypokalemia Assessment & Plan: better ICD Codes: E87.6 - Hypokalemia SNOMED: 22872616 (8) DM (diabetes mellitus) ICD Codes: E11.9 - Type 2 diabetes mellitus without complications SNOMED: 52719458 (9) ARF (acute renal failure) Assessment & Plan: ok ICD Codes: N17.9 - Acute kidney failure, unspecified SNOMED: 44733760 (10) Hypertension ICD Codes: I10 - Essential (primary) hypertension SNOMED: 56708195 (11) Aspiration pneumonia ICD Codes: J69.0 - Pneumonitis due to inhalation of food and vomit SNOMED: 126773428 (12) UTI (urinary tract infection) ICD Codes: N39.0 - Urinary tract infection, site not specified SNOMED: 83731524 Status: stable, unchanged Assessment/Plan: TF per GI continue ASA SSI cont Lisinopril cont Metformin Discussed with RN Subjective Allergies: Coded Allergies: UNABLE TO ASSESS (Unverified , 06/18/19) Subjective In NAD Objective Last 24 Hour Vital Signs Date Time Temp Pulse Resp B/P (MAP) Pulse Ox O2 Delivery O2 Flow Rate FiO2 08/04/19 12:00 98.6 91 20 144/79 (100) 98 08/04/19 09:07 150/60 08/04/19 09:07 150/60 08/04/19 09:00 Nasal Cannula 3.0 08/04/19 08:00 98.6 85 19 150/60 (90) 97 08/04/19 04:00 98.2 51 20 149/61 (90) 97 08/04/19 00:00 98.0 73 20 122/64 (83) 97 08/03/19 21:00 Nasal Cannula 3.0 08/03/19 20:26 96 Nasal Cannula 2.0 28 08/03/19 20:00 97.4 61 20 140/64 (89) 92 08/03/19 17:51 124/59 08/03/19 16:00 98.0 79 18 124/59 (80) 97 Intake and Output 08/03/19 08/04/19 18:59 06:59 Intake Total 900 ml 750 ml Output Total 500 ml Balance 900 ml 250 ml Free Water 300 ml 150 ml Tube Feeding 600 ml 600 ml Output Urine Total 500 ml Height (Feet): 5 Height (Inches): 8.00 Weight (Pounds): 147 Cardiovascular: normal rate Respiratory/Chest: lungs clear Edema: no edema noted Generalized Kaz Gilmore MD Aug 04, 2019 12:38
[2019-08-04 16:00] VITALS: BP 140/80
--- NOTE | 2019-08-04 17:45 | NUR ---
NURSE NOTES:WOUND CARE FOLLOW-UP NOTES:Non-blanching erythema Sacrum,R and L buttocks (L)9 cm x (W)14cm with area area of partial thickness shearing (L)8cm x (W)4cm . Base of wound is moist and viable . Additional erythema with satellite lesions noted to medial/posterior R thigh and L groin areas. Both heels are firm and easily blanchable. Moisture Barrier Paste applied to affected areas and covered with Optifoam drsgs. Moisture Barrier applied to bilat groin ,and scrotal areas including medial and posterior aspects of both upper thighs.Pt positioned with pillow on his side. Cavilon Skin Barrier applied to both heels and each heel covered with Optifoam drgs and floated off mattress with pillow. Tx.Plan: Apply Moisture Barrier Paste to bilat groin, buttocks and upper thighs with each incontinence care. Cover buttocks with Optifoam drsg. Change every 3 days and prn. Apply Cavilon Skin Barrier to both heels. Cover each heel with Optifoam drsg.Change every 7 days and prn. APM/BRUNILDA Mattress overlay. Reposition at least every 2hours or as tolerated. Off-load heels with pillow
--- NOTE | 2019-08-04 18:00 | NUR ---
NURSE NOTES: checked patient' skin with [facility]. pressure injury sacral area st 2, recommended cleanse with soap and water. apply triad cream, cover with optifoam change every 3days and prn. redeness both heels apply cavilon and cover with optifoam change every 7days and PRN. turn and reposition.
--- NOTE | 2019-08-04 19:27 | NUR ---
HAND-OFF: Report given to JUSTINO Perry.
[2019-08-04 20:00] VITALS: BP 145/75
[2019-08-05] VITALS: BP 159/49
[2019-08-05 04:00] VITALS: BP 104/64
--- NOTE | 2019-08-05 07:07 | NUR ---
HAND-OFF: Report given to JUSTINO ROBLERO.
--- NOTE | 2019-08-05 07:33 | NUR ---
NURSE NOTES: received report from JUSTINO Perry. patient in bed. open eyes. non verbal. no respiratory distress noted on 2L via NC. no facial grimacing noted. GTF running at 50/hr. no residual. HOB at all times. condom cath draining. dark yellow. dressing intact on sacral area. both heels. elevate heels with pillow. soft restraint on lt wrist to prevent pulling devices. IV on LFA 22g saline lock. intact. bed in the lowest position and locked. call light within reach. alarm on. will continue to provide plan of care.
[2019-08-05 08:00] VITALS: BP 118/65
[2019-08-05] MEDS: Lisinopril 20mg tab NG SCH (08:54)
[2019-08-05] MEDS: metFORMIN 500mg tab NG SCH ×2 (08:54→17:48)
[2019-08-05] MEDS: Minoxidil 10mg tab NG SCH ×2 (08:54→17:48)
--- NOTE | 2019-08-05 09:00 | NUR ---
NURSE NOTES: RN held Minoxidil 10mg, Lisinopril 20mg d/t BP was 104/64 @0400, 118/65 @0800. will continue to monitor patient's condition.
[2019-08-05 12:00] VITALS: BP 125/68
--- NOTE | 2019-08-05 12:17 | Infectious Diseases Prog Note ---
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 Aphasia R hemiplegia Leukocytosis improving Pseudomonas UTI treated RECOMMENDATION: Observe off antibiotic f/u CBC Subjective ROS Limited/Unobtainable: Yes Constitutional: Denies: fever Neurologic: Reports: other - on restraint Allergies: Coded Allergies: UNABLE TO ASSESS (Unverified , 06/18/19) Objective Vital Signs Last 24 Hour Vital Signs Date Time Temp Pulse Resp B/P (MAP) Pulse Ox O2 Delivery O2 Flow Rate FiO2 08/05/19 09:00 Nasal Cannula 3.0 08/05/19 08:54 118/65 08/05/19 08:54 118/65 08/05/19 08:00 99.0 78 18 118/65 (82) 97 08/05/19 04:00 98.4 61 19 104/64 (77) 100 08/05/19 00:00 97.0 85 21 159/49 (85) 97 08/04/19 21:00 Nasal Cannula 3.0 08/04/19 20:00 97.2 94 20 145/75 (98) 96 08/04/19 17:44 140/80 08/04/19 16:00 98.5 95 20 140/80 (100) 98 Height (Feet): 5 Height (Inches): 8.00 Weight (Pounds): 147 General Appearance: no acute distress HEENT: mucous membranes moist Respiratory/Chest: lungs clear Cardiovascular: normal rate Abdomen: soft, non tender, other Extremities: no edema Neurologic/Psychiatric: aphasia, other - R heiplegia Current Medications Medications (Trade) Dose Ordered Sig/Leonor Route PRN Reason Start Time Stop Time Status Last Admin Dose Admin Acetaminophen (Tylenol) 650 mg Q4H PRN NG Mild Pain/Temp > 100.5 07/28/19 18:20 08/27/19 18:19 Lisinopril (PriniviL) 20 mg DAILY NG 07/29/19 09:00 08/17/19 20:59 08/04/19 09:07 Loperamide HCl (Imodium) 2 mg Q6H PRN NG Diarrhea 07/28/19 18:20 08/27/19 18:19 Metformin HCl (Glucophage) 500 mg BID NG 07/29/19 09:00 08/14/19 14:59 08/05/19 08:54 Metoclopramide HCl (Reglan) 5 mg EVERY 8 HOURS NG 07/28/19 22:00 08/25/19 14:59 08/05/19 06:20 Minoxidil (Loniten) 2.5 mg Q4H PRN NG bp over 160 syst 07/28/19 18:20 08/27/19 18:19 Minoxidil (Loniten) 10 mg TWICE A DAY NG 07/29/19 09:00 08/06/19 17:59 08/04/19 17:44 Bob Gilmore MD Aug 05, 2019 12:17
--- NOTE | 2019-08-05 13:50 | General Progress Note ---
Assessment/Plan Problem List: (1) Cellulitis of right hand ICD Codes: L03.113 - Cellulitis of right upper limb SNOMED: 72632584 (2) Altered level of consciousness ICD Codes: R40.4 - Transient alteration of awareness SNOMED: 1489795 (3) Sepsis ICD Codes: A41.9 - Sepsis, unspecified organism SNOMED: 76467838 Qualifiers: Qualified Codes: A41.9 - Sepsis, unspecified organism (4) Left middle cerebral artery stroke ICD Codes: I63.512 - Cerebral infarction due to unspecified occlusion or stenosis of left middle cerebral artery SNOMED: 850556476 (5) Left carotid artery occlusion ICD Codes: I65.22 - Occlusion and stenosis of left carotid artery SNOMED: 999101431908020 (6) Hypernatremia Assessment & Plan: better ICD Codes: E87.0 - Hyperosmolality and hypernatremia SNOMED: 304448763 (7) Hypokalemia Assessment & Plan: better ICD Codes: E87.6 - Hypokalemia SNOMED: 33108469 (8) DM (diabetes mellitus) ICD Codes: E11.9 - Type 2 diabetes mellitus without complications SNOMED: 73181861 (9) ARF (acute renal failure) Assessment & Plan: ok ICD Codes: N17.9 - Acute kidney failure, unspecified SNOMED: 62311402 (10) Hypertension ICD Codes: I10 - Essential (primary) hypertension SNOMED: 56184953 (11) Aspiration pneumonia ICD Codes: J69.0 - Pneumonitis due to inhalation of food and vomit SNOMED: 140793264 (12) UTI (urinary tract infection) ICD Codes: N39.0 - Urinary tract infection, site not specified SNOMED: 81257238 Status: stable, unchanged Assessment/Plan: TF continue ASA SSI cont Lisinopril cont Metformin follow labs Subjective Allergies: Coded Allergies: UNABLE TO ASSESS (Unverified , 06/18/19) Subjective In NAD Objective Last 24 Hour Vital Signs Date Time Temp Pulse Resp B/P (MAP) Pulse Ox O2 Delivery O2 Flow Rate FiO2 08/05/19 12:00 98.8 81 18 125/68 (87) 97 08/05/19 09:00 Nasal Cannula 3.0 08/05/19 08:54 118/65 08/05/19 08:54 118/65 08/05/19 08:00 99.0 78 18 118/65 (82) 97 08/05/19 04:00 98.4 61 19 104/64 (77) 100 08/05/19 00:00 97.0 85 21 159/49 (85) 97 08/04/19 21:00 Nasal Cannula 3.0 08/04/19 20:00 97.2 94 20 145/75 (98) 96 08/04/19 17:44 140/80 08/04/19 16:00 98.5 95 20 140/80 (100) 98 Intake and Output 08/04/19 08/05/19 19:00 07:00 Intake Total 900 ml 750 ml Balance 900 ml 750 ml Free Water 300 ml 150 ml Tube Feeding 600 ml 600 ml Height (Feet): 5 Height (Inches): 8.00 Weight (Pounds): 147 Cardiovascular: normal rate Respiratory/Chest: lungs clear Edema: no edema noted Generalized Kaz Gilmore MD Aug 05, 2019 13:50
--- NOTE | 2019-08-05 14:16 | NUR ---
RD ASSESSMENT & RECOMMENDATIONS SEE CARE ACTIVITY FOR COMPLETE ASSESSMENT DAILY ESTIMATED NEEDS: Needs based on sepsis and wound/ 72kg adj 25-30 kcals/kg 5880-7095 total kcals 1.25-2 g protein/kg 90-144 g total protein 25-30 mL/kg 6418-4827 total fluid mLs NUTRITION DIAGNOSIS: * Swallowing difficulty R/T dysphagia, s/p new and old CVA as evidenced by NPO per [employer] rec, has been on NGT feeds, s/p PEG placement, on GT feeds. * Altered nutrition related lab values r/t sepsis, DM, volume deficit as evidenced by elev WBC (12.8), elev POC glu (110-151 now improved) w/ A1C 6.9, elev Na (153-> wnl ->152->wnl), elev BUN (78-> 24), elev creat(1.6, now wnl). CURRENT TF:Vital 1.2 @ 50ml x24 hrs ENTERAL NUTRITION RECOMMENDATIONS: VITAL 1.2 @ 65ml/hr x 24 hrs to provide 1560ml, 1872kcal, 117g prot, 1265ml free water - Increase slowly 10ml q 6-8 hrs as tolerated to goal - HOB over 30 degrees - H20 flush of 180ml q 4 hrs ADDITIONAL RECOMMENDATIONS: 1) CALIBRATED weight (fluctuating wts)-> REC TO RECALIBRATE BED 2) Monitor BGs closely- currently improved, but TF not meeting goal 3) Monitor hydration status and renal fxn: improving, creat now wnl CHECK UPDATED BMP (last done 08/01) 4) WOUND HEALING: add Vit C 250mg QD add APOORVA 1pkt BID once TF well tolerated 5) Monitor lytes, replete as needed
--- NOTE | 2019-08-05 15:39 | NUR ---
CASE MANAGEMENT:REVIEW SI;RT HAND CELLULITIS. ALOC. SEPSIS. CVA. ARF. ASPIRATION PNA. 99.0 85 21 159/49 97% 3L NC FIO2 28% NO LABS IS;LISINOPRIL NG QD LONITEN NG BID MED SURG STATUS DCP; PLACEMENT PENDING [facility] APPROVAL
[2019-08-05 16:00] VITALS: BP 130/72
--- NOTE | 2019-08-05 17:46 | General Progress Note ---
Assessment/Plan Status: stable, unchanged Assessment/Plan: Assessment - Acute CVA - AMS - Dysphagia - s/p GT - cellulitis - arrhythmia Recommendations - IVF - monitor labs - elevate HOB - abx per ID Subjective Allergies: Coded Allergies: UNABLE TO ASSESS (Unverified , 06/18/19) Subjective above noted NAD Confused tolerating TF Objective Last 24 Hour Vital Signs Date Time Temp Pulse Resp B/P (MAP) Pulse Ox O2 Delivery O2 Flow Rate FiO2 08/05/19 16:00 98.4 77 18 130/72 (91) 98 08/05/19 12:00 98.8 81 18 125/68 (87) 97 08/05/19 09:00 Nasal Cannula 3.0 08/05/19 08:54 118/65 08/05/19 08:54 118/65 08/05/19 08:00 99.0 78 18 118/65 (82) 97 08/05/19 04:00 98.4 61 19 104/64 (77) 100 08/05/19 00:00 97.0 85 21 159/49 (85) 97 08/04/19 21:00 Nasal Cannula 3.0 08/04/19 20:00 97.2 94 20 145/75 (98) 96 Intake and Output 08/04/19 08/05/19 19:00 07:00 Intake Total 900 ml 750 ml Balance 900 ml 750 ml Free Water 300 ml 150 ml Tube Feeding 600 ml 600 ml Height (Feet): 5 Height (Inches): 8.00 Weight (Pounds): 147 Objective Elderly man awake, looks at NCAT supple Coarse ronchi RR abd soft, (+) GT no edema Barb Lee MD Aug 05, 2019 17:46
--- NOTE | 2019-08-05 19:07 | NUR ---
HAND-OFF: Report given to JUSTINO Evans.
--- NOTE | 2019-08-05 19:27 | NUR ---
NURSE NOTES: Received report from JUSTINO Reyna. patient sleeping in bed. Non verbal. No respiratory distress noted on NC 2L. GTF running at 50/hr. HOB at all times. Condom cath draining with dark yellow. Dressing intact on sacral area. 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 Soft restraint on L wrist to prevent pulling devices. IV site intact and patent. Bed in the lowest position and locked, alarm on, call light within reach. Will continue to provide plan of care.
[2019-08-05 20:00] VITALS: BP 133/69
[2019-08-06] VITALS (7 sets, daily range): BP systolic 103–151; BP diastolic 60–88
[2019-08-06 07:32] LABS: ANION GAP 8 mmol/L (5-15); BLOOD UREA NITROGEN 32 mg/dL (7-18); CALCIUM 9.1 MG/DL (8.5-10.1); CARBON DIOXIDE 27 MMOL/L (21-32); CHLORIDE 106 MMOL/L (98-107); CREATININE 0.8 MG/DL (0.55-1.30); POTASSIUM 4.4 MMOL/L (3.5-5.1); SODIUM 141 MMOL/L (136-145)
[2019-08-06 08:28] LABS: BASOPHILS % (AUTO) 0.7 % (0.0-2.0); EOSINOPHILS % (AUTO) 2.9 % (0.0-3.0); HEMATOCRIT 34.1 % (42.0-52.0); HEMOGLOBIN 12.2 G/DL (14.2-18.0); LYMPHOCYTES % (AUTO) 23.2 % (20.0-45.0); MEAN CORPUSCULAR VOLUME 87 FL (80-99); MONOCYTES % (AUTO) 4.3 % (1.0-10.0); NEUTROPHILS % (AUTO) 68.8 % (45.0-75.0); PLATELET COUNT 312 K/UL (150-450); RED BLOOD COUNT 3.93 M/UL (4.70-6.10); RED CELL DISTRIBUTION WIDTH 10.9 % (11.6-14.8); WHITE BLOOD COUNT 12.9 K/UL (4.8-10.8)
[2019-08-06] MEDS: Lisinopril 20mg tab NG SCH (10:01)
[2019-08-06] MEDS: Minoxidil 10mg tab NG SCH (10:01)
[2019-08-06] MEDS: metFORMIN 500mg tab NG SCH ×2 (10:02→18:27)
--- NOTE | 2019-08-06 11:56 | General Progress Note ---
Assessment/Plan Problem List: (1) Cellulitis of right hand ICD Codes: L03.113 - Cellulitis of right upper limb SNOMED: 20441514 (2) Altered level of consciousness ICD Codes: R40.4 - Transient alteration of awareness SNOMED: 8038227 (3) Sepsis ICD Codes: A41.9 - Sepsis, unspecified organism SNOMED: 10866742 Qualifiers: Qualified Codes: A41.9 - Sepsis, unspecified organism (4) Left middle cerebral artery stroke ICD Codes: I63.512 - Cerebral infarction due to unspecified occlusion or stenosis of left middle cerebral artery SNOMED: 239641017 (5) Left carotid artery occlusion ICD Codes: I65.22 - Occlusion and stenosis of left carotid artery SNOMED: 108259049875719 (6) Hypernatremia Assessment & Plan: better ICD Codes: E87.0 - Hyperosmolality and hypernatremia SNOMED: 746320702 (7) Hypokalemia Assessment & Plan: better ICD Codes: E87.6 - Hypokalemia SNOMED: 05497678 (8) DM (diabetes mellitus) ICD Codes: E11.9 - Type 2 diabetes mellitus without complications SNOMED: 28399627 (9) ARF (acute renal failure) Assessment & Plan: ok ICD Codes: N17.9 - Acute kidney failure, unspecified SNOMED: 53296292 (10) Hypertension ICD Codes: I10 - Essential (primary) hypertension SNOMED: 93539128 (11) Aspiration pneumonia ICD Codes: J69.0 - Pneumonitis due to inhalation of food and vomit SNOMED: 230982694 (12) UTI (urinary tract infection) ICD Codes: N39.0 - Urinary tract infection, site not specified SNOMED: 39437407 Status: stable, unchanged Assessment/Plan: TF continue ASA SSI cont Lisinopril cont Metformin follow labs Subjective Allergies: Coded Allergies: UNABLE TO ASSESS (Unverified , 06/18/19) Subjective In NAD Objective Last 24 Hour Vital Signs Date Time Temp Pulse Resp B/P (MAP) Pulse Ox O2 Delivery O2 Flow Rate FiO2 08/06/19 10:01 130/60 08/06/19 10:01 130/60 08/06/19 04:00 97.8 92 22 130/72 (91) 95 08/06/19 00:00 97.9 98 22 142/80 (100) 96 08/05/19 21:00 Nasal Cannula 3.0 08/05/19 20:00 97.6 95 22 133/69 (90) 96 08/05/19 19:52 95 Nasal Cannula 2.0 28 08/05/19 17:48 130/72 08/05/19 16:00 98.4 77 18 130/72 (91) 98 08/05/19 12:00 98.8 81 18 125/68 (87) 97 Intake and Output 08/05/19 08/06/19 19:00 07:00 Intake Total 900 ml 850 ml Balance 900 ml 850 ml Free Water 300 ml 300 ml Tube Feeding 600 ml 550 ml Laboratory Tests 08/06/19 06:30: White Blood Count 12.9H, Red Blood Count 3.93L, Hemoglobin 12.2L, Hematocrit 34.1L, Mean Corpuscular Volume 87, Mean Corpuscular Hemoglobin 31.1H, Mean Corpuscular Hemoglobin Concent 35.8, Red Cell Distribution Width 10.9L, Platelet Count 312, Mean Platelet Volume 6.1L, Neutrophils (%) (Auto) 68.8, Lymphocytes (%) (Auto) 23.2, Monocytes (%) (Auto) 4.3, Eosinophils (%) (Auto) 2.9, Basophils (%) (Auto) 0.7, Sodium Level 141, Potassium Level 4.4, Chloride Level 106, Carbon Dioxide Level 27, Anion Gap 8, Blood Urea Nitrogen 32H, Creatinine 0.8, Estimat Glomerular Filtration Rate > 60, Glucose Level 129H, Calcium Level 9.1 Height (Feet): 5 Height (Inches): 8.00 Weight (Pounds): 147 Respiratory/Chest: lungs clear Abdomen: soft Kaz Gilmore MD Aug 06, 2019 11:55
--- NOTE | 2019-08-06 12:51 | NUR ---
CHARGE NURSE NOTE: BP144/88, HR 46, rechecked twice. Asymptomatic. notified.
--- NOTE | 2019-08-06 13:00 | NUR ---
CHARGE NURSE NOTE: Spoke with , notified him about bradycardia. He ordered ECG stat.
--- NOTE | 2019-08-06 13:27 | NUR ---
CHARGE NURSE NOTE: Notified regarding an abnormal ECG, no new orders given.
--- NOTE | 2019-08-06 19:41 | NUR ---
HAND-OFF: Report given to Cristina BADILLO, endorse fall risk remains in place..
--- NOTE | 2019-08-06 19:59 | NUR ---
NURSE NOTES: Received report from JUSTINO Montaño. Pt awake but non verbal. No respiratory distress noted on NC 2L. GTF running at 50/hr. Tolerating well. HOB at all times. Condom cath draining with dark yellow. Dressing intact on sacral area. 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 Soft restraint on L wrist to prevent pulling devices. IV site intact and patent. Bed in the lowest position and locked, alarm on, call light within reach. Will continue to provide plan of care.
[2019-08-07] VITALS: BP 118/71
[2019-08-07 04:00] VITALS: BP 145/67
--- NOTE | 2019-08-07 07:03 | NUR ---
HAND-OFF: Report given to JUSTINO Reyna. Addendum: 08/07/19 at 0705 by GENARO BELLO RN RN Endorsed high fall risk status to oncoming shift with specific interventions in place.
--- NOTE | 2019-08-07 07:23 | NUR ---
NURSE NOTES: received report from JUSTINO Evans. patient in bed. non verbal. no respiratory distress noted. no facial grimacing. GTF running@50/hr. HOB at all times. IV on LFA 22 saline lock. intact. lt wrist with soft restraints. skin intact. p200 mattress for skin management. bed in the lowest position and locked. call light within reach. alarm on. will continue to provide plan of care
[2019-08-07 08:00] VITALS: BP 120/53
[2019-08-07] MEDS: metFORMIN 500mg tab NG SCH ×2 (08:55→17:26)
[2019-08-07] MEDS: Lisinopril 20mg tab NG SCH (08:55)
--- NOTE | 2019-08-07 08:59 | NUR ---
NURSE NOTES: held Lisinopril GT d/t HR 54. will continue to monitor vs.
--- NOTE | 2019-08-07 10:21 | Infectious Diseases Prog Note ---
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 Aphasia R hemiplegia Leukocytosis Pseudomonas UTI treated RECOMMENDATION: Observe off antibiotic f/u CBC Subjective ROS Limited/Unobtainable: Yes Allergies: Coded Allergies: UNABLE TO ASSESS (Unverified , 06/18/19) Objective Vital Signs Last 24 Hour Vital Signs Date Time Temp Pulse Resp B/P (MAP) Pulse Ox O2 Delivery O2 Flow Rate FiO2 08/07/19 09:00 Nasal Cannula 3.0 08/07/19 08:55 120/53 08/07/19 08:00 97.3 54 20 120/53 (75) 95 08/07/19 04:00 97.0 62 20 145/67 (93) 98 08/07/19 00:00 97.0 74 18 118/71 (87) 98 08/06/19 21:00 Nasal Cannula 3.0 08/06/19 20:00 96.8 60 18 103/67 (79) 99 08/06/19 19:44 99 Nasal Cannula 2.0 28 08/06/19 16:00 97.4 65 17 141/68 (92) 99 08/06/19 12:00 97.5 16 144/88 (106) 98 Height (Feet): 5 Height (Inches): 8.00 Weight (Pounds): 147 General Appearance: no acute distress HEENT: mucous membranes moist Respiratory/Chest: normal breath sounds Cardiovascular: normal rate Abdomen: soft, non tender Extremities: no edema Neurologic/Psychiatric: aphasia Current Medications Medications (Trade) Dose Ordered Sig/Leonor Route PRN Reason Start Time Stop Time Status Last Admin Dose Admin Acetaminophen (Tylenol) 650 mg Q4H PRN NG Mild Pain/Temp > 100.5 07/28/19 18:20 08/27/19 18:19 Lisinopril (PriniviL) 20 mg DAILY NG 07/29/19 09:00 08/17/19 20:59 08/06/19 10:01 Loperamide HCl (Imodium) 2 mg Q6H PRN NG Diarrhea 07/28/19 18:20 08/27/19 18:19 Metformin HCl (Glucophage) 500 mg BID NG 07/29/19 09:00 08/14/19 14:59 08/07/19 08:55 Metoclopramide HCl (Reglan) 5 mg EVERY 8 HOURS NG 07/28/19 22:00 08/25/19 14:59 08/07/19 05:30 Minoxidil (Loniten) 2.5 mg Q4H PRN NG bp over 160 syst 07/28/19 18:20 08/27/19 18:19 Bob Gilmore MD Aug 07, 2019 10:20
[2019-08-07 12:00] VITALS: BP 146/68
[2019-08-07 16:00] VITALS: BP 158/63
--- NOTE | 2019-08-07 19:04 | NUR ---
HAND-OFF: Report given to JUSTINO kelly.
--- NOTE | 2019-08-07 19:23 | NUR ---
NURSE NOTES: Received patient awake, confused, non-verbal, resting in bed, on Left soft wrist restraints, tolerating his g-tube feeding well.
--- NOTE | 2019-08-07 19:58 | General Progress Note ---
Assessment/Plan Problem List: (1) Cellulitis of right hand ICD Codes: L03.113 - Cellulitis of right upper limb SNOMED: 97885258 (2) Altered level of consciousness ICD Codes: R40.4 - Transient alteration of awareness SNOMED: 4723305 (3) Sepsis ICD Codes: A41.9 - Sepsis, unspecified organism SNOMED: 54154133 Qualifiers: Qualified Codes: A41.9 - Sepsis, unspecified organism (4) Left middle cerebral artery stroke ICD Codes: I63.512 - Cerebral infarction due to unspecified occlusion or stenosis of left middle cerebral artery SNOMED: 865441083 (5) Left carotid artery occlusion ICD Codes: I65.22 - Occlusion and stenosis of left carotid artery SNOMED: 786360911672437 (6) Hypernatremia Assessment & Plan: better ICD Codes: E87.0 - Hyperosmolality and hypernatremia SNOMED: 879341102 (7) Hypokalemia Assessment & Plan: better ICD Codes: E87.6 - Hypokalemia SNOMED: 69136065 (8) DM (diabetes mellitus) ICD Codes: E11.9 - Type 2 diabetes mellitus without complications SNOMED: 07564113 (9) ARF (acute renal failure) Assessment & Plan: ok ICD Codes: N17.9 - Acute kidney failure, unspecified SNOMED: 99771840 (10) Hypertension ICD Codes: I10 - Essential (primary) hypertension SNOMED: 50129205 (11) Aspiration pneumonia ICD Codes: J69.0 - Pneumonitis due to inhalation of food and vomit SNOMED: 324544653 (12) UTI (urinary tract infection) ICD Codes: N39.0 - Urinary tract infection, site not specified SNOMED: 49206695 Status: stable, unchanged Assessment/Plan: TF continue ASA SSI cont Lisinopril cont Metformin follow labs Subjective Allergies: Coded Allergies: UNABLE TO ASSESS (Unverified , 06/18/19) Subjective In NAD Objective Last 24 Hour Vital Signs Date Time Temp Pulse Resp B/P (MAP) Pulse Ox O2 Delivery O2 Flow Rate FiO2 08/07/19 16:00 97.6 81 20 158/63 (94) 98 08/07/19 12:00 97.2 50 20 146/68 (94) 97 08/07/19 09:00 Nasal Cannula 3.0 08/07/19 08:55 120/53 08/07/19 08:00 97.3 54 20 120/53 (75) 95 08/07/19 04:00 97.0 62 20 145/67 (93) 98 08/07/19 00:00 97.0 74 18 118/71 (87) 98 08/06/19 21:00 Nasal Cannula 3.0 08/06/19 20:00 96.8 60 18 103/67 (79) 99 Intake and Output 08/06/19 08/07/19 19:00 07:00 Intake Total 900 ml 850 ml Output Total 600 ml 850 ml Balance 300 ml 0 ml Free Water 300 ml 250 ml Tube Feeding 600 ml 600 ml Output Urine Total 600 ml 850 ml # Bowel Movements 1 Height (Feet): 5 Height (Inches): 8.00 Weight (Pounds): 147 Cardiovascular: normal rate Respiratory/Chest: lungs clear Edema: no edema noted Generalized Kaz Gilmore MD Aug 07, 2019 19:58
[2019-08-07 20:25] VITALS: BP 148/82
[2019-08-08] VITALS (8 sets, daily range): BP systolic 140–179; BP diastolic 70–89
--- NOTE | 2019-08-08 07:09 | NUR ---
HAND-OFF: Report given to Davide Ruiz RN.
--- NOTE | 2019-08-08 07:10 | NUR ---
NURSE NOTES: Report received from Scott BADILLO. Patient is awake and alert x 1 nonverbal. Patient is presenting with AMS. Patient currently in stable condition. On oxygen via nasal canula 2 liters. Does not appear to be in respiratory distress at this time. Left wrist restraint noted. Circulation present, patient able to move extremities. No new order needed at this time. Was endorsed that patient is a high fall risk, and is impulsive. CAP MAKER made aware, will preform frequent checks on the patient. Bed locked, alarmed, and in lowest position. Will continue to follow plan of care.
[2019-08-08 07:15] LABS: BASOPHILS % (AUTO) 1.6 % (0.0-2.0); EOSINOPHILS % (AUTO) 2.5 % (0.0-3.0); HEMOGLOBIN 13.1 G/DL (14.2-18.0); LYMPHOCYTES % (AUTO) 23.8 % (20.0-45.0); MEAN CORPUSCULAR VOLUME 84 FL (80-99); MONOCYTES % (AUTO) 4.9 % (1.0-10.0); NEUTROPHILS % (AUTO) 67.2 % (45.0-75.0); PLATELET COUNT 329 K/UL (150-450); RED BLOOD COUNT 4.15 M/UL (4.70-6.10); RED CELL DISTRIBUTION WIDTH 11.2 % (11.6-14.8); WHITE BLOOD COUNT 12.9 K/UL (4.8-10.8)
[2019-08-08 07:34] LABS: ANION GAP 7 mmol/L (5-15); BLOOD UREA NITROGEN 30 mg/dL (7-18); CALCIUM 9.3 MG/DL (8.5-10.1); CARBON DIOXIDE 30 MMOL/L (21-32); CHLORIDE 105 MMOL/L (98-107); CREATININE 0.8 MG/DL (0.55-1.30); POTASSIUM 4.3 MMOL/L (3.5-5.1); SODIUM 142 MMOL/L (136-145)
[2019-08-08] MEDS: Lisinopril 20mg tab NG SCH ×2 (09:30→18:53)
[2019-08-08] MEDS: Minoxidil 2.5mg tab NG PRN (09:30)
[2019-08-08] MEDS: metFORMIN 500mg tab NG SCH ×2 (09:30→18:53)
--- NOTE | 2019-08-08 10:29 | Infectious Diseases Prog Note ---
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 Aphasia R hemiplegia Leukocytosis Pseudomonas UTI treated RECOMMENDATION: Observe off antibiotic f/u CBC Subjective ROS Limited/Unobtainable: Yes Allergies: Coded Allergies: UNABLE TO ASSESS (Unverified , 06/18/19) Objective Vital Signs Last 24 Hour Vital Signs Date Time Temp Pulse Resp B/P (MAP) Pulse Ox O2 Delivery O2 Flow Rate FiO2 08/08/19 09:30 179/78 08/08/19 09:30 179/78 08/08/19 09:00 Nasal Cannula 3.0 08/08/19 08:00 97.9 58 18 179/78 (111) 97 08/08/19 04:13 97.0 60 22 145/76 (99) 95 08/08/19 00:10 97.8 80 22 140/89 (106) 95 08/07/19 20:25 97.4 72 22 148/82 (104) 99 08/07/19 20:16 Nasal Cannula 3.0 08/07/19 19:55 97 Nasal Cannula 2.0 28 08/07/19 16:00 97.6 81 20 158/63 (94) 98 08/07/19 12:00 97.2 50 20 146/68 (94) 97 Height (Feet): 5 Height (Inches): 8.00 Weight (Pounds): 147 General Appearance: no acute distress HEENT: mucous membranes moist Respiratory/Chest: lungs clear Cardiovascular: normal rate Abdomen: soft, non tender, other - GT feeding Extremities: no edema Neurologic/Psychiatric: aphasia Laboratory Tests Test 08/08/19 06:15 White Blood Count 12.9 K/UL (4.8-10.8) H Red Blood Count 4.15 M/UL (4.70-6.10) L Hemoglobin 13.1 G/DL (14.2-18.0) L Hematocrit 35.0 % (42.0-52.0) L Mean Corpuscular Volume 84 FL (80-99) Mean Corpuscular Hemoglobin 31.5 PG (27.0-31.0) H Mean Corpuscular Hemoglobin Concent 37.4 G/DL (32.0-36.0) H Red Cell Distribution Width 11.2 % (11.6-14.8) L Platelet Count 329 K/UL (150-450) Mean Platelet Volume 6.2 FL (6.5-10.1) L Neutrophils (%) (Auto) 67.2 % (45.0-75.0) Lymphocytes (%) (Auto) 23.8 % (20.0-45.0) Monocytes (%) (Auto) 4.9 % (1.0-10.0) Eosinophils (%) (Auto) 2.5 % (0.0-3.0) Basophils (%) (Auto) 1.6 % (0.0-2.0) Sodium Level 142 MMOL/L (136-145) Potassium Level 4.3 MMOL/L (3.5-5.1) Chloride Level 105 MMOL/L (98-107) Carbon Dioxide Level 30 MMOL/L (21-32) Anion Gap 7 mmol/L (5-15) Blood Urea Nitrogen 30 mg/dL (7-18) H Creatinine 0.8 MG/DL (0.55-1.30) Estimat Glomerular Filtration Rate > 60 mL/min (>60) Glucose Level 124 MG/DL (74-106) H Calcium Level 9.3 MG/DL (8.5-10.1) Current Medications Medications (Trade) Dose Ordered Sig/Leonor Route PRN Reason Start Time Stop Time Status Last Admin Dose Admin Acetaminophen (Tylenol) 650 mg Q4H PRN NG Mild Pain/Temp > 100.5 07/28/19 18:20 08/27/19 18:19 Lisinopril (PriniviL) 20 mg DAILY NG 07/29/19 09:00 08/17/19 20:59 08/08/19 09:30 Loperamide HCl (Imodium) 2 mg Q6H PRN NG Diarrhea 07/28/19 18:20 08/27/19 18:19 Metformin HCl (Glucophage) 500 mg BID NG 07/29/19 09:00 08/14/19 14:59 08/08/19 09:30 Metoclopramide HCl (Reglan) 5 mg EVERY 8 HOURS NG 07/28/19 22:00 08/25/19 14:59 08/08/19 05:17 Minoxidil (Loniten) 2.5 mg Q4H PRN NG bp over 160 syst 07/28/19 18:20 08/27/19 18:19 08/08/19 09:30 Bob Gilmore MD Aug 08, 2019 10:29
--- NOTE | 2019-08-08 11:51 | General Progress Note ---
Assessment/Plan Problem List: (1) Cellulitis of right hand ICD Codes: L03.113 - Cellulitis of right upper limb SNOMED: 72794030 (2) Altered level of consciousness ICD Codes: R40.4 - Transient alteration of awareness SNOMED: 7231268 (3) Sepsis ICD Codes: A41.9 - Sepsis, unspecified organism SNOMED: 56561083 Qualifiers: Qualified Codes: A41.9 - Sepsis, unspecified organism (4) Left middle cerebral artery stroke ICD Codes: I63.512 - Cerebral infarction due to unspecified occlusion or stenosis of left middle cerebral artery SNOMED: 826654297 (5) Left carotid artery occlusion ICD Codes: I65.22 - Occlusion and stenosis of left carotid artery SNOMED: 236701119349969 (6) Hypernatremia Assessment & Plan: better ICD Codes: E87.0 - Hyperosmolality and hypernatremia SNOMED: 742399028 (7) Hypokalemia Assessment & Plan: better ICD Codes: E87.6 - Hypokalemia SNOMED: 71770880 (8) DM (diabetes mellitus) ICD Codes: E11.9 - Type 2 diabetes mellitus without complications SNOMED: 38997932 (9) ARF (acute renal failure) Assessment & Plan: ok ICD Codes: N17.9 - Acute kidney failure, unspecified SNOMED: 20448615 (10) Hypertension ICD Codes: I10 - Essential (primary) hypertension SNOMED: 63805038 (11) Aspiration pneumonia ICD Codes: J69.0 - Pneumonitis due to inhalation of food and vomit SNOMED: 765508430 (12) UTI (urinary tract infection) ICD Codes: N39.0 - Urinary tract infection, site not specified SNOMED: 19460589 Status: stable, unchanged Assessment/Plan: TF continue ASA Increase Lisinopril to 20 mg bid cont Metformin follow BS Discussede with RN Subjective Allergies: Coded Allergies: UNABLE TO ASSESS (Unverified , 06/18/19) Subjective In NAD Objective Last 24 Hour Vital Signs Date Time Temp Pulse Resp B/P (MAP) Pulse Ox O2 Delivery O2 Flow Rate FiO2 08/08/19 10:44 97.9 58 18 151/70 (97) 97 08/08/19 09:30 179/78 08/08/19 09:30 179/78 08/08/19 09:00 Nasal Cannula 3.0 08/08/19 08:00 97.9 58 18 179/78 (111) 97 08/08/19 04:13 97.0 60 22 145/76 (99) 95 08/08/19 00:10 97.8 80 22 140/89 (106) 95 08/07/19 20:25 97.4 72 22 148/82 (104) 99 08/07/19 20:16 Nasal Cannula 3.0 08/07/19 19:55 97 Nasal Cannula 2.0 28 08/07/19 16:00 97.6 81 20 158/63 (94) 98 08/07/19 12:00 97.2 50 20 146/68 (94) 97 Intake and Output 08/07/19 08/08/19 19:00 07:00 Intake Total 900 ml 960 ml Output Total 500 ml Balance 400 ml 960 ml Free Water 300 ml 360 ml Tube Feeding 600 ml 600 ml Output Urine Total 500 ml Laboratory Tests 08/08/19 06:15: White Blood Count 12.9H, Red Blood Count 4.15L, Hemoglobin 13.1L, Hematocrit 35.0L, Mean Corpuscular Volume 84, Mean Corpuscular Hemoglobin 31.5H, Mean Corpuscular Hemoglobin Concent 37.4H, Red Cell Distribution Width 11.2L, Platelet Count 329, Mean Platelet Volume 6.2L, Neutrophils (%) (Auto) 67.2, Lymphocytes (%) (Auto) 23.8, Monocytes (%) (Auto) 4.9, Eosinophils (%) (Auto) 2.5, Basophils (%) (Auto) 1.6, Sodium Level 142, Potassium Level 4.3, Chloride Level 105, Carbon Dioxide Level 30, Anion Gap 7, Blood Urea Nitrogen 30H, Creatinine 0.8, Estimat Glomerular Filtration Rate > 60, Glucose Level 124H, Calcium Level 9.3 Height (Feet): 5 Height (Inches): 8.00 Weight (Pounds): 147 Cardiovascular: normal rate Respiratory/Chest: lungs clear Edema: no edema noted Kaz Thorpe MD Aug 08, 2019 11:51
--- NOTE | 2019-08-08 15:15 | NUR ---
CASE MANAGEMENT:REVIEW SI;ASPIRATION PNA. CVA. ARF. SEPSIS. RIGHT HAND CELLULITUS. 97.9 57 179/78 97% 3L NC FIO2 28% WBC 12.9 BUN 30 IS;LISINOPRIL NGT BID METFORMIN NGT BID LONITEN NGT Q4 HRS PRN BP>160 MED SURG STATUS DCP;SNF PLACEMENT PENDING INSURANCE JUWAN APPROVAL
[2019-08-08] MEDS: NovoLOG Insulin Flexpen SUBQ SCH ×2 (16:30→20:37)
--- NOTE | 2019-08-08 19:20 | NUR ---
HAND-OFF: Report given to Toya BADILLO.
--- NOTE | 2019-08-08 19:49 | NUR ---
NURSE NOTES: Received patient asleep, no SOB, tolerating his G-tube feeding well, kept clean and dry.
--- NOTE | 2019-08-08 21:37 | General Progress Note ---
Assessment/Plan Status: stable, unchanged Assessment/Plan: Assessment - Acute CVA - AMS - Dysphagia - s/p GT - cellulitis - arrhythmia Recommendations - IVF - monitor labs - elevate HOB - abx per ID Subjective Allergies: Coded Allergies: UNABLE TO ASSESS (Unverified , 06/18/19) Subjective above noted NAD Confused tolerating TF Objective Last 24 Hour Vital Signs Date Time Temp Pulse Resp B/P (MAP) Pulse Ox O2 Delivery O2 Flow Rate FiO2 08/08/19 20:35 Nasal Cannula 3.0 08/08/19 20:00 97.9 71 21 160/81 (107) 98 08/08/19 18:53 150/85 08/08/19 16:00 98.7 73 19 150/85 (106) 99 08/08/19 13:00 98 Nasal Cannula 2.0 28 08/08/19 12:00 97.8 57 18 151/72 (98) 99 08/08/19 11:57 Nasal Cannula 3.0 08/08/19 10:44 97.9 58 18 151/70 (97) 97 08/08/19 09:30 179/78 08/08/19 09:30 179/78 08/08/19 09:00 Nasal Cannula 3.0 08/08/19 08:00 97.9 58 18 179/78 (111) 97 08/08/19 04:13 97.0 60 22 145/76 (99) 95 08/08/19 00:10 97.8 80 22 140/89 (106) 95 Intake and Output 08/07/19 08/08/19 19:00 07:00 Intake Total 900 ml 960 ml Output Total 500 ml Balance 400 ml 960 ml Free Water 300 ml 360 ml Tube Feeding 600 ml 600 ml Output Urine Total 500 ml Laboratory Tests 08/08/19 06:15: White Blood Count 12.9H, Red Blood Count 4.15L, Hemoglobin 13.1L, Hematocrit 35.0L, Mean Corpuscular Volume 84, Mean Corpuscular Hemoglobin 31.5H, Mean Corpuscular Hemoglobin Concent 37.4H, Red Cell Distribution Width 11.2L, Platelet Count 329, Mean Platelet Volume 6.2L, Neutrophils (%) (Auto) 67.2, Lymphocytes (%) (Auto) 23.8, Monocytes (%) (Auto) 4.9, Eosinophils (%) (Auto) 2.5, Basophils (%) (Auto) 1.6, Sodium Level 142, Potassium Level 4.3, Chloride Level 105, Carbon Dioxide Level 30, Anion Gap 7, Blood Urea Nitrogen 30H, Creatinine 0.8, Estimat Glomerular Filtration Rate > 60, Glucose Level 124H, Calcium Level 9.3 Height (Feet): 5 Height (Inches): 8.00 Weight (Pounds): 147 Objective Elderly man awake, looks at NCAT supple Coarse ronchi RR abd soft, (+) GT no edema Barb Lee MD Aug 08, 2019 21:37
[2019-08-09 04:00] VITALS: BP 154/76
[2019-08-09] MEDS: NovoLOG Insulin Flexpen SUBQ SCH ×4 (05:38→21:00)
--- NOTE | 2019-08-09 07:05 | NUR ---
NURSE NOTES: Report received from Scott BADILLO. Patient is awake and alert x 1 nonverbal. Patient is presenting with AMS. Patient currently in stable condition. On oxygen via nasal canula 2 liters. Does not appear to be in respiratory distress at this time. Left wrist restraint noted. Circulation present, patient able to move extremities. No new order needed at this time. Was endorsed that patient is a high fall risk, and is impulsive. SOFTWARE TECHNICAL LEAD made aware, will preform frequent checks on the patient. Bed locked, alarmed, and in lowest position. Will continue to follow plan of care.
--- NOTE | 2019-08-09 07:13 | NUR ---
HAND-OFF: Report given to Davide Mcghee RN.
[2019-08-09 08:00] VITALS: BP 150/85
[2019-08-09] MEDS: metFORMIN 500mg tab NG SCH ×2 (09:30→17:46)
[2019-08-09] MEDS: Lisinopril 20mg tab NG SCH ×2 (09:31→17:46)
--- NOTE | 2019-08-09 11:29 | Infectious Diseases Prog Note ---
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 Aphasia R hemiplegia Leukocytosis Pseudomonas UTI treated RECOMMENDATION: Observe off antibiotic f/u CBC Subjective ROS Limited/Unobtainable: Yes Neurologic: Reports: confusion, other - on restraint Allergies: Coded Allergies: UNABLE TO ASSESS (Unverified , 06/18/19) Objective Vital Signs Last 24 Hour Vital Signs Date Time Temp Pulse Resp B/P (MAP) Pulse Ox O2 Delivery O2 Flow Rate FiO2 08/09/19 09:31 150/85 08/09/19 09:00 Nasal Cannula 3.0 08/09/19 08:00 98.4 60 18 150/85 (106) 98 08/09/19 04:00 98.1 53 17 154/76 (102) 96 08/08/19 23:57 98.2 46 20 161/74 (103) 97 08/08/19 20:35 Nasal Cannula 3.0 08/08/19 20:00 97.9 71 21 160/81 (107) 98 08/08/19 19:00 97 Nasal Cannula 2.0 28 08/08/19 18:53 150/85 08/08/19 16:00 98.7 73 19 150/85 (106) 99 08/08/19 13:00 98 Nasal Cannula 2.0 28 08/08/19 12:00 97.8 57 18 151/72 (98) 99 08/08/19 11:57 Nasal Cannula 3.0 Height (Feet): 5 Height (Inches): 8.00 Weight (Pounds): 147 General Appearance: no acute distress HEENT: mucous membranes moist Respiratory/Chest: lungs clear Cardiovascular: normal rate Abdomen: soft, non tender Extremities: no edema Neurologic/Psychiatric: aphasia, other - R hemiplegia Current Medications Medications (Trade) Dose Ordered Sig/Leonor Route PRN Reason Start Time Stop Time Status Last Admin Dose Admin Acetaminophen (Tylenol) 650 mg Q4H PRN NG Mild Pain/Temp > 100.5 07/28/19 18:20 08/27/19 18:19 Dextrose (Dextrose 50%) 25 ml Q30M PRN IV Hypoglycemia 08/08/19 11:45 09/07/19 11:44 Dextrose (Dextrose 50%) 50 ml Q30M PRN IV Hypoglycemia 08/08/19 11:45 09/07/19 11:44 Insulin Aspart (NovoLOG) BEFORE MEALS AND HS SUBQ 08/08/19 16:30 09/07/19 16:29 Lisinopril (PriniviL) 20 mg BID NG 08/08/19 18:00 08/17/19 20:59 08/09/19 09:31 Loperamide HCl (Imodium) 2 mg Q6H PRN NG Diarrhea 07/28/19 18:20 08/27/19 18:19 Metformin HCl (Glucophage) 500 mg BID NG 07/29/19 09:00 08/14/19 14:59 08/09/19 09:30 Metoclopramide HCl (Reglan) 5 mg EVERY 8 HOURS NG 07/28/19 22:00 08/25/19 14:59 08/09/19 05:38 Minoxidil (Loniten) 2.5 mg Q4H PRN NG bp over 160 syst 07/28/19 18:20 08/27/19 18:19 08/08/19 09:30 Bob Gilmore MD Aug 09, 2019 11:29
[2019-08-09 12:00] VITALS: BP 144/82
--- NOTE | 2019-08-09 14:32 | General Progress Note ---
Assessment/Plan Problem List: (1) Cellulitis of right hand ICD Codes: L03.113 - Cellulitis of right upper limb SNOMED: 52323803 (2) Altered level of consciousness ICD Codes: R40.4 - Transient alteration of awareness SNOMED: 9602370 (3) Sepsis ICD Codes: A41.9 - Sepsis, unspecified organism SNOMED: 85982511 Qualifiers: Qualified Codes: A41.9 - Sepsis, unspecified organism (4) Left middle cerebral artery stroke ICD Codes: I63.512 - Cerebral infarction due to unspecified occlusion or stenosis of left middle cerebral artery SNOMED: 936096863 (5) Left carotid artery occlusion ICD Codes: I65.22 - Occlusion and stenosis of left carotid artery SNOMED: 906487055251021 (6) Hypernatremia Assessment & Plan: better ICD Codes: E87.0 - Hyperosmolality and hypernatremia SNOMED: 628346199 (7) Hypokalemia Assessment & Plan: better ICD Codes: E87.6 - Hypokalemia SNOMED: 44063710 (8) DM (diabetes mellitus) ICD Codes: E11.9 - Type 2 diabetes mellitus without complications SNOMED: 72730603 (9) ARF (acute renal failure) Assessment & Plan: ok ICD Codes: N17.9 - Acute kidney failure, unspecified SNOMED: 53248907 (10) Hypertension ICD Codes: I10 - Essential (primary) hypertension SNOMED: 62792529 (11) Aspiration pneumonia ICD Codes: J69.0 - Pneumonitis due to inhalation of food and vomit SNOMED: 370769985 (12) UTI (urinary tract infection) ICD Codes: N39.0 - Urinary tract infection, site not specified SNOMED: 61401430 Status: stable, unchanged Assessment/Plan: TF continue ASA cont Lisinopril to 20 mg bid cont Metformin follow BS Discussed with RN Subjective Allergies: Coded Allergies: UNABLE TO ASSESS (Unverified , 06/18/19) Subjective In NAD Objective Last 24 Hour Vital Signs Date Time Temp Pulse Resp B/P (MAP) Pulse Ox O2 Delivery O2 Flow Rate FiO2 08/09/19 12:00 98.5 66 18 144/82 (102) 98 08/09/19 09:31 150/85 08/09/19 09:00 Nasal Cannula 3.0 08/09/19 08:00 98.4 60 18 150/85 (106) 98 08/09/19 04:00 98.1 53 17 154/76 (102) 96 08/08/19 23:57 98.2 46 20 161/74 (103) 97 08/08/19 20:35 Nasal Cannula 3.0 08/08/19 20:00 97.9 71 21 160/81 (107) 98 08/08/19 19:00 97 Nasal Cannula 2.0 28 08/08/19 18:53 150/85 08/08/19 16:00 98.7 73 19 150/85 (106) 99 Intake and Output 08/08/19 08/09/19 19:00 07:00 Intake Total 900 ml Balance 900 ml Free Water 300 ml Tube Feeding 600 ml # Voids 8 # Bowel Movements 1 1 Height (Feet): 5 Height (Inches): 8.00 Weight (Pounds): 147 Cardiovascular: normal rate Respiratory/Chest: lungs clear Edema: no edema noted Generalized Kaz Gilmore MD Aug 09, 2019 14:32
[2019-08-09 16:00] VITALS: BP 138/76
--- NOTE | 2019-08-09 16:19 | General Progress Note ---
Assessment/Plan Status: stable, unchanged Assessment/Plan: Assessment - Acute CVA - AMS - Dysphagia - s/p GT - cellulitis - arrhythmia Recommendations - IVF - monitor labs - elevate HOB - abx per ID Subjective Allergies: Coded Allergies: UNABLE TO ASSESS (Unverified , 06/18/19) Subjective above noted NAD Confused tolerating TF Objective Last 24 Hour Vital Signs Date Time Temp Pulse Resp B/P (MAP) Pulse Ox O2 Delivery O2 Flow Rate FiO2 08/09/19 12:00 98.5 66 18 144/82 (102) 98 08/09/19 09:31 150/85 08/09/19 09:00 Nasal Cannula 3.0 08/09/19 08:00 98.4 60 18 150/85 (106) 98 08/09/19 04:00 98.1 53 17 154/76 (102) 96 08/08/19 23:57 98.2 46 20 161/74 (103) 97 08/08/19 20:35 Nasal Cannula 3.0 08/08/19 20:00 97.9 71 21 160/81 (107) 98 08/08/19 19:00 97 Nasal Cannula 2.0 28 08/08/19 18:53 150/85 Intake and Output 08/08/19 08/09/19 19:00 07:00 Intake Total 900 ml Balance 900 ml Free Water 300 ml Tube Feeding 600 ml # Voids 8 # Bowel Movements 1 1 Height (Feet): 5 Height (Inches): 8.00 Weight (Pounds): 147 Objective Elderly man awake, looks at NCAT supple Coarse ronchi RR abd soft, (+) GT no edema Barb Lee MD Aug 09, 2019 16:19
--- NOTE | 2019-08-09 17:11 | NUR ---
CASE MANAGEMENT:REVIEW SI;ASPIRATION PNA. CVA. ARF. SEPSIS. RIGHT HAND CELLULITUS. 98.5 53 19 150/85 96% 3L NC NO LABS IS;LISINOPRIL NGT BID METFORMIN NGT BID LONITEN NGT Q4 HRS PRN BP>160 MED SURG STATUS DCP;SNF PLACEMENT PENDING INSURANCE [employer] APPROVAL
--- NOTE | 2019-08-09 19:18 | NUR ---
HAND-OFF: Report given to Scott BADILLO. Patient in stable condition.
[2019-08-09 20:00] VITALS: BP 143/71
[2019-08-10] VITALS (7 sets, daily range): BP systolic 112–159; BP diastolic 57–85
[2019-08-10] MEDS: NovoLOG Insulin Flexpen SUBQ SCH ×4 (05:48→21:00)
[2019-08-10 07:09] LABS: BASOPHILS % (AUTO) 1.1 % (0.0-2.0); EOSINOPHILS % (AUTO) 1.9 % (0.0-3.0); HEMATOCRIT 38.4 % (42.0-52.0); HEMOGLOBIN 13.5 G/DL (14.2-18.0); LYMPHOCYTES % (AUTO) 24.1 % (20.0-45.0); MEAN CORPUSCULAR VOLUME 86 FL (80-99); MONOCYTES % (AUTO) 5.3 % (1.0-10.0); NEUTROPHILS % (AUTO) 67.5 % (45.0-75.0); PLATELET COUNT 338 K/UL (150-450); RED BLOOD COUNT 4.44 M/UL (4.70-6.10); WHITE BLOOD COUNT 12.1 K/UL (4.8-10.8)
--- NOTE | 2019-08-10 07:22 | NUR ---
HAND-OFF: Report given to Davide Ruiz RN.
--- NOTE | 2019-08-10 07:23 | NUR ---
NURSE NOTES: Report received from Scott BADILLO. Patient is awake and alert x 1 nonverbal. On oxygen via nasal canula 2 liters. Does not appear to be in respiratory distress at this time. Left wrist restraint noted. Circulation present, patient able to move extremities. Restraint renewed on previous shift this AM.No new order needed at this time. Was endorsed that patient is a high fall risk, and is impulsive. LEAD FRONT DESK AGENT made aware, will preform frequent checks on the patient. Bed locked, alarmed, and in lowest position. Will continue to follow plan of care.
[2019-08-10] MEDS: metFORMIN 500mg tab NG SCH ×2 (08:27→18:03)
[2019-08-10] MEDS: Lisinopril 20mg tab NG SCH ×2 (08:28→18:00)
--- NOTE | 2019-08-10 09:09 | General Progress Note ---
Assessment/Plan Problem List: (1) Cellulitis of right hand ICD Codes: L03.113 - Cellulitis of right upper limb SNOMED: 42490485 (2) Altered level of consciousness ICD Codes: R40.4 - Transient alteration of awareness SNOMED: 2608156 (3) Sepsis ICD Codes: A41.9 - Sepsis, unspecified organism SNOMED: 13305955 Qualifiers: Qualified Codes: A41.9 - Sepsis, unspecified organism (4) Left middle cerebral artery stroke ICD Codes: I63.512 - Cerebral infarction due to unspecified occlusion or stenosis of left middle cerebral artery SNOMED: 962024096 (5) Left carotid artery occlusion ICD Codes: I65.22 - Occlusion and stenosis of left carotid artery SNOMED: 653698911353437 (6) Hypernatremia Assessment & Plan: better ICD Codes: E87.0 - Hyperosmolality and hypernatremia SNOMED: 249400753 (7) Hypokalemia Assessment & Plan: better ICD Codes: E87.6 - Hypokalemia SNOMED: 68574476 (8) DM (diabetes mellitus) ICD Codes: E11.9 - Type 2 diabetes mellitus without complications SNOMED: 34639873 (9) ARF (acute renal failure) Assessment & Plan: ok ICD Codes: N17.9 - Acute kidney failure, unspecified SNOMED: 85193573 (10) Hypertension ICD Codes: I10 - Essential (primary) hypertension SNOMED: 81319236 (11) Aspiration pneumonia ICD Codes: J69.0 - Pneumonitis due to inhalation of food and vomit SNOMED: 253293969 (12) UTI (urinary tract infection) ICD Codes: N39.0 - Urinary tract infection, site not specified SNOMED: 44217131 Status: stable, unchanged Assessment/Plan: TF continue ASA cont Lisinopril to 20 mg bid cont Metformin follow BS Discussed with RN Subjective Allergies: Coded Allergies: UNABLE TO ASSESS (Unverified , 06/18/19) Subjective In NAD Objective Last 24 Hour Vital Signs Date Time Temp Pulse Resp B/P (MAP) Pulse Ox O2 Delivery O2 Flow Rate FiO2 08/10/19 08:28 142/70 08/10/19 04:31 97.1 68 18 159/85 (109) 97 08/10/19 00:12 97.3 57 20 134/67 (89) 97 08/09/19 20:00 97.8 60 18 143/71 (95) 99 08/09/19 19:50 97 Nasal Cannula 2.0 28 08/09/19 19:21 Nasal Cannula 3.0 08/09/19 17:46 138/76 08/09/19 16:00 98.0 70 19 138/76 (96) 97 08/09/19 12:00 98.5 66 18 144/82 (102) 98 08/09/19 09:31 150/85 Intake and Output 08/09/19 08/10/19 19:00 07:00 Intake Total 900 ml 960 ml Balance 900 ml 960 ml Free Water 300 ml 360 ml Tube Feeding 600 ml 600 ml # Voids 4 # Bowel Movements 3 Laboratory Tests 08/10/19 05:45: White Blood Count 12.1H, Red Blood Count 4.44L, Hemoglobin 13.5L, Hematocrit 38.4L, Mean Corpuscular Volume 86, Mean Corpuscular Hemoglobin 30.5, Mean Corpuscular Hemoglobin Concent 35.3, Red Cell Distribution Width 11.0L, Platelet Count 338, Mean Platelet Volume 6.3L, Neutrophils (%) (Auto) 67.5, Lymphocytes (%) (Auto) 24.1, Monocytes (%) (Auto) 5.3, Eosinophils (%) (Auto) 1.9, Basophils (%) (Auto) 1.1 Height (Feet): 5 Height (Inches): 8.00 Weight (Pounds): 150 Cardiovascular: normal rate Respiratory/Chest: lungs clear Kaz Gilmore MD Aug 10, 2019 09:09
--- NOTE | 2019-08-10 14:21 | NUR ---
CASE MANAGEMENT:REVIEW SI;ASPIRATION PNA. CVA. ARF. SEPSIS. RIGHT HAND CELLULITUS. 98.0 57 20 159/85 96% 3L NC FIO2 28% WBC 12.1 BUN 30 IS;LISINOPRIL NGT BID METFORMIN NGT BID LONITEN NGT Q4 HRS PRN BP>160 MED SURG STATUS DCP;PLACEMENT PENDING [facility] APPLICATION APPROVAL
--- NOTE | 2019-08-10 14:50 | Infectious Diseases Prog Note ---
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 Aphasia R hemiplegia Leukocytosis Pseudomonas UTI treated RECOMMENDATION: Observe off antibiotic f/u CBC Subjective ROS Limited/Unobtainable: Yes Neurologic: Reports: confusion, other - on restraint Allergies: Coded Allergies: UNABLE TO ASSESS (Unverified , 06/18/19) Objective Vital Signs Last 24 Hour Vital Signs Date Time Temp Pulse Resp B/P (MAP) Pulse Ox O2 Delivery O2 Flow Rate FiO2 08/10/19 12:00 98.0 86 20 135/72 (93) 99 08/10/19 09:00 Nasal Cannula 3.0 08/10/19 08:28 142/70 08/10/19 08:00 97.4 68 20 142/70 (94) 96 08/10/19 04:31 97.1 68 18 159/85 (109) 97 08/10/19 00:12 97.3 57 20 134/67 (89) 97 08/09/19 20:00 97.8 60 18 143/71 (95) 99 08/09/19 19:50 97 Nasal Cannula 2.0 28 08/09/19 19:21 Nasal Cannula 3.0 08/09/19 17:46 138/76 08/09/19 16:00 98.0 70 19 138/76 (96) 97 Height (Feet): 5 Height (Inches): 8.00 Weight (Pounds): 150 General Appearance: no acute distress HEENT: mucous membranes moist Respiratory/Chest: lungs clear Cardiovascular: normal rate Abdomen: soft, non tender Extremities: no edema Neurologic/Psychiatric: aphasia, other - R heiplegia Laboratory Tests Test 08/10/19 05:45 White Blood Count 12.1 K/UL (4.8-10.8) H Red Blood Count 4.44 M/UL (4.70-6.10) L Hemoglobin 13.5 G/DL (14.2-18.0) L Hematocrit 38.4 % (42.0-52.0) L Mean Corpuscular Volume 86 FL (80-99) Mean Corpuscular Hemoglobin 30.5 PG (27.0-31.0) Mean Corpuscular Hemoglobin Concent 35.3 G/DL (32.0-36.0) Red Cell Distribution Width 11.0 % (11.6-14.8) L Platelet Count 338 K/UL (150-450) Mean Platelet Volume 6.3 FL (6.5-10.1) L Neutrophils (%) (Auto) 67.5 % (45.0-75.0) Lymphocytes (%) (Auto) 24.1 % (20.0-45.0) Monocytes (%) (Auto) 5.3 % (1.0-10.0) Eosinophils (%) (Auto) 1.9 % (0.0-3.0) Basophils (%) (Auto) 1.1 % (0.0-2.0) Current Medications Medications (Trade) Dose Ordered Sig/Leonor Route PRN Reason Start Time Stop Time Status Last Admin Dose Admin Acetaminophen (Tylenol) 650 mg Q4H PRN NG Mild Pain/Temp > 100.5 07/28/19 18:20 08/27/19 18:19 Dextrose (Dextrose 50%) 25 ml Q30M PRN IV Hypoglycemia 08/08/19 11:45 09/07/19 11:44 Dextrose (Dextrose 50%) 50 ml Q30M PRN IV Hypoglycemia 08/08/19 11:45 09/07/19 11:44 Insulin Aspart (NovoLOG) BEFORE MEALS AND HS SUBQ 08/08/19 16:30 09/07/19 16:29 08/10/19 05:48 Lisinopril (PriniviL) 20 mg BID NG 08/08/19 18:00 08/17/19 20:59 08/10/19 08:28 Loperamide HCl (Imodium) 2 mg Q6H PRN NG Diarrhea 07/28/19 18:20 08/27/19 18:19 Metformin HCl (Glucophage) 500 mg BID NG 07/29/19 09:00 08/14/19 14:59 08/10/19 08:27 Metoclopramide HCl (Reglan) 5 mg EVERY 8 HOURS NG 07/28/19 22:00 08/25/19 14:59 08/10/19 05:47 Minoxidil (Loniten) 2.5 mg Q4H PRN NG bp over 160 syst 07/28/19 18:20 08/27/19 18:19 08/08/19 09:30 Bob Gilmore MD Aug 10, 2019 14:50
--- NOTE | 2019-08-10 16:19 | NUR ---
CHARGE NURSE NOTE: BP 145/57 heart rate 40. was paged, message left.
--- NOTE | 2019-08-10 16:26 | NUR ---
NURSE NOTES: Doctor Melgar paged due to heart rate of 40 BPM apically. Doctor Melgar aware. Requested STAT EKG and to call back with results. Order placed by Davide BADILLO.
--- NOTE | 2019-08-10 17:00 | NUR ---
NURSE NOTES: EKG obtained. Patient in NSR, 62 BPM. Doctor Talia aware. No new orders.
--- NOTE | 2019-08-10 18:22 | General Progress Note ---
Assessment/Plan Status: stable, unchanged Assessment/Plan: Assessment - Acute CVA - AMS - Dysphagia - s/p GT - cellulitis - arrhythmia Recommendations - IVF - monitor labs - elevate HOB - abx per ID Subjective Allergies: Coded Allergies: UNABLE TO ASSESS (Unverified , 06/18/19) Subjective above noted NAD Confused tolerating TF Objective Last 24 Hour Vital Signs Date Time Temp Pulse Resp B/P (MAP) Pulse Ox O2 Delivery O2 Flow Rate FiO2 08/10/19 18:00 97.4 62 20 145/57 (86) 98 08/10/19 18:00 145/57 08/10/19 16:00 97.4 45 20 145/57 (86) 98 08/10/19 12:00 98.0 86 20 135/72 (93) 99 08/10/19 09:00 Nasal Cannula 3.0 08/10/19 08:28 142/70 08/10/19 08:00 97.4 68 20 142/70 (94) 96 08/10/19 04:31 97.1 68 18 159/85 (109) 97 08/10/19 00:12 97.3 57 20 134/67 (89) 97 08/09/19 20:00 97.8 60 18 143/71 (95) 99 08/09/19 19:50 97 Nasal Cannula 2.0 28 08/09/19 19:21 Nasal Cannula 3.0 Intake and Output 08/09/19 08/10/19 19:00 07:00 Intake Total 900 ml 960 ml Balance 900 ml 960 ml Free Water 300 ml 360 ml Tube Feeding 600 ml 600 ml # Voids 4 # Bowel Movements 3 Laboratory Tests 08/10/19 05:45: White Blood Count 12.1H, Red Blood Count 4.44L, Hemoglobin 13.5L, Hematocrit 38.4L, Mean Corpuscular Volume 86, Mean Corpuscular Hemoglobin 30.5, Mean Corpuscular Hemoglobin Concent 35.3, Red Cell Distribution Width 11.0L, Platelet Count 338, Mean Platelet Volume 6.3L, Neutrophils (%) (Auto) 67.5, Lymphocytes (%) (Auto) 24.1, Monocytes (%) (Auto) 5.3, Eosinophils (%) (Auto) 1.9, Basophils (%) (Auto) 1.1 Height (Feet): 5 Height (Inches): 8.00 Weight (Pounds): 150 Objective Elderly man awake, looks at MD NCAT supple Coarse ronchi RR abd soft, (+) GT no edema Barb Lee MD Aug 10, 2019 18:22
--- NOTE | 2019-08-10 19:11 | NUR ---
HAND-OFF: Report given to Scott BADILLO. Patient in stable condition.
--- NOTE | 2019-08-10 19:44 | NUR ---
NURSE NOTES: Received patient awake, non-verbal, uncooperative, on left soft wrist restraints, tolerating his g-tube feeding well.
--- NOTE | 2019-08-10 23:01 | NUR ---
HAND-OFF: Report given to Ashia Wray RN.
--- NOTE | 2019-08-10 23:40 | NUR ---
NURSE NOTES: Received report from Kita BADILLO, patient is asleep, stable at this time, will continue to monitor for comfort and safety.
[2019-08-11] VITALS: BP 142/79
[2019-08-11 04:00] VITALS: BP 141/69
[2019-08-11] MEDS: NovoLOG Insulin Flexpen SUBQ SCH ×4 (06:19→21:00)
--- NOTE | 2019-08-11 07:14 | NUR ---
HAND-OFF: Report given to Levy BADILLO.
--- NOTE | 2019-08-11 07:35 | NUR ---
NURSE NOTES: PT AXOX0, NONVERBAL. PT IS AWAKE AND CAN OPEN EYES SPONTANEOUSLY. UNABLE TO RESPOND TO RN'S QUESTIONS. IN NO APPARENT DISTRESS AT THIS TIME. PT IS ON P200 MATTRESS. IN HIGH-DOYLE'S POSITION WITH HOB ELEVATED. BED IN LOWEST POSITION WITH BEDSIDE RAILS X3 RAISED. GTF VITAL RUNNING AT 50ML/HR. IN NO APPARENT DISTRESS AT THIS TIME. WILL CONTINUE TO MONITOR.
[2019-08-11 08:00] VITALS: BP 149/71
[2019-08-11] MEDS: Lisinopril 20mg tab NG SCH ×2 (09:12→18:27)
[2019-08-11] MEDS: metFORMIN 500mg tab NG SCH ×2 (09:12→18:26)
--- NOTE | 2019-08-11 10:52 | NUR ---
RD ASSESSMENT & RECOMMENDATIONS SEE CARE ACTIVITY FOR COMPLETE ASSESSMENT DAILY ESTIMATED NEEDS: Needs based on sepsis and wound/ 72kg adj 25-30 kcals/kg 0735-1120 total kcals 1.25-2 g protein/kg 90-144 g total protein 25-30 mL/kg 6271-6469 total fluid mLs NUTRITION DIAGNOSIS: * Swallowing difficulty R/T dysphagia, s/p new and old CVA as evidenced by NPO per FOREIGN LANGUAGE INSTRUCTOR rec, has been on NGT feeds, s/p PEG placement, on GT feeds. * Altered nutrition related lab values r/t sepsis, DM, volume deficit as evidenced by elev WBC (12.1), elev POC glu (113-144 now improved) w/ A1C 6.9, elev Na (153-> wnl ->152->wnl), elev BUN (78-> 30), elev creat(1.6, now wnl). CURRENT TF:Vital 1.2 @ 50ml x24 hrs ENTERAL NUTRITION RECOMMENDATIONS: VITAL 1.2 @ 65ml/hr x 24 hrs to provide 1560ml, 1872kcal, 117g prot, 1265ml free water - Increase slowly 10ml q 6-8 hrs as tolerated to goal - HOB over 30 degrees - H20 flush of 150ml q 4 hrs ADDITIONAL RECOMMENDATIONS: 1) CALIBRATED weight (fluctuating wts)-> REC TO RECALIBRATE BED 2) Monitor hydration status and renal fxn: creat now wnl, BUN still elev -> rec f/up BMP 3) WOUND HEALING: add Vit C 250mg QD add Osbaldo 1pkt BID (mix w/ 4oz water, give via PEG) 4) Monitor lytes, replete as needed .
[2019-08-11 12:00] VITALS: BP 150/73
--- NOTE | 2019-08-11 13:08 | NUR ---
NURSE NOTES:WOUND CARE NOTES:Non-blanching erythema with loose,dry skin noted to sacrum/R buttocks.Pt did not exhibit any distress to indicate pain when affected areas on buttocks palpated. Moisture associated skin damage resolving . No erythema noted to R or L groin. Both heels are easily blanchable. No new skin concerns noted. Pt is on an APM/BRUNILDA mattress overlay and positioned with pillows as per tolerance and within protocols. Wound Tx. are effective and continued as ordered. All wound prevention protocols continued as care-planned.
--- NOTE | 2019-08-11 13:40 | NUR ---
NURSE NOTES: PER HSE SPECIALIST DANE RECOMMENDATIONS, INCREASE GTF NEPRO TFROM 50CC/H TO 65 CC/H AND ADD APOORVA. DR CHANDLER WAS AT BEDSIDE AND MADE AWARE PT IS TOLERATING 50CC/HR AND HSE SPECIALIST'S RECOMMENDATIONS. PER DR CHANDLER, OK TO INCREASE FEEDING TO 65CC/HR. PT IS RESTLESS, OCCASIONALLY KICKING LEGS UP IN THE AIR. IN NO APPARENT DISTRESS AT THIS TIME. VSS. PT CONSTANTLY SLIDING DOWN ON BED. NEEDS TO BE REPOSITIONED OFTEN TO PREVENT ASPIRATION. PT PLACED IN HIGH DOYLE'S POSITION WITH HOB ELEVATED. SOFT WRIST RESTRAINT PLACED ON LEFT WRIST. WILL CONTINUE TO MONITOR.
--- NOTE | 2019-08-11 13:58 | General Progress Note ---
Assessment/Plan Problem List: (1) Cellulitis of right hand ICD Codes: L03.113 - Cellulitis of right upper limb SNOMED: 52651553 (2) Altered level of consciousness ICD Codes: R40.4 - Transient alteration of awareness SNOMED: 6534692 (3) Sepsis ICD Codes: A41.9 - Sepsis, unspecified organism SNOMED: 00996932 Qualifiers: Qualified Codes: A41.9 - Sepsis, unspecified organism (4) Left middle cerebral artery stroke ICD Codes: I63.512 - Cerebral infarction due to unspecified occlusion or stenosis of left middle cerebral artery SNOMED: 417276437 (5) Left carotid artery occlusion ICD Codes: I65.22 - Occlusion and stenosis of left carotid artery SNOMED: 358036833865758 (6) Hypernatremia Assessment & Plan: better ICD Codes: E87.0 - Hyperosmolality and hypernatremia SNOMED: 973277112 (7) Hypokalemia Assessment & Plan: better ICD Codes: E87.6 - Hypokalemia SNOMED: 85126838 (8) DM (diabetes mellitus) ICD Codes: E11.9 - Type 2 diabetes mellitus without complications SNOMED: 93814493 (9) ARF (acute renal failure) Assessment & Plan: ok ICD Codes: N17.9 - Acute kidney failure, unspecified SNOMED: 06221974 (10) Hypertension ICD Codes: I10 - Essential (primary) hypertension SNOMED: 36469195 (11) Aspiration pneumonia ICD Codes: J69.0 - Pneumonitis due to inhalation of food and vomit SNOMED: 166804908 (12) UTI (urinary tract infection) ICD Codes: N39.0 - Urinary tract infection, site not specified SNOMED: 87383695 Status: stable, unchanged Assessment/Plan: TF continue ASA cont Lisinopril to 20 mg bid cont Metformin follow BS Discussed with RN Subjective Allergies: Coded Allergies: UNABLE TO ASSESS (Unverified , 06/18/19) Subjective In NAD Objective Last 24 Hour Vital Signs Date Time Temp Pulse Resp B/P (MAP) Pulse Ox O2 Delivery O2 Flow Rate FiO2 08/11/19 12:00 97.3 56 20 150/73 (98) 97 08/11/19 09:12 149/71 08/11/19 09:00 Nasal Cannula 3.0 08/11/19 08:48 98 Nasal Cannula 2.0 28 08/11/19 08:00 97.4 59 20 149/71 (97) 98 08/11/19 04:00 98.4 68 20 141/69 (93) 97 08/11/19 00:00 98.5 72 20 142/79 (100) 95 08/10/19 20:08 Nasal Cannula 3.0 08/10/19 19:43 98.2 100 20 112/72 (85) 96 08/10/19 18:00 97.4 62 20 145/57 (86) 98 08/10/19 18:00 145/57 08/10/19 16:00 97.4 45 20 145/57 (86) 98 Intake and Output 08/10/19 08/11/19 19:00 07:00 Intake Total 720 ml 1210 ml Output Total 851 ml Balance 720 ml 359 ml Intake Oral 140 ml Free Water 120 ml 300 ml IV Total 20 ml Tube Feeding 600 ml 650 ml Other 100 ml Output Urine Total 850 ml Stool Total 1 ml # Voids 4 # Bowel Movements 3 Height (Feet): 5 Height (Inches): 8.00 Weight (Pounds): 150 Cardiovascular: normal rate Respiratory/Chest: lungs clear Kaz Gilmore MD Aug 11, 2019 13:58
--- NOTE | 2019-08-11 13:58 | NUR ---
CASE MANAGEMENT:REVIEW SI;LEFT MCA CVA. RT HEMIPLEGIA. APHASIA. HTN. 98.5 56 20 150/73 97% 3L NC NO LABS IS; LISINOPRIL NGT BID METFORMIN NGT BID LONITEN NGT Q4 HRS PRN BP>160 MED SURG STATUS DCP;PLACEMENT PENDING [facility] APPLICATION APPROVAL
--- NOTE | 2019-08-11 14:24 | Infectious Diseases Prog Note ---
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 Aphasia R hemiplegia Leukocytosis Pseudomonas UTI treated RECOMMENDATION: Observe off antibiotic f/u CBC Subjective ROS Limited/Unobtainable: Yes Allergies: Coded Allergies: UNABLE TO ASSESS (Unverified , 06/18/19) Objective Vital Signs Last 24 Hour Vital Signs Date Time Temp Pulse Resp B/P (MAP) Pulse Ox O2 Delivery O2 Flow Rate FiO2 08/11/19 12:00 97.3 56 20 150/73 (98) 97 08/11/19 09:12 149/71 08/11/19 09:00 Nasal Cannula 3.0 08/11/19 08:48 98 Nasal Cannula 2.0 28 08/11/19 08:00 97.4 59 20 149/71 (97) 98 08/11/19 04:00 98.4 68 20 141/69 (93) 97 08/11/19 00:00 98.5 72 20 142/79 (100) 95 08/10/19 20:08 Nasal Cannula 3.0 08/10/19 19:43 98.2 100 20 112/72 (85) 96 08/10/19 18:00 97.4 62 20 145/57 (86) 98 08/10/19 18:00 145/57 08/10/19 16:00 97.4 45 20 145/57 (86) 98 Height (Feet): 5 Height (Inches): 8.00 Weight (Pounds): 150 General Appearance: no acute distress HEENT: mucous membranes moist Respiratory/Chest: lungs clear Cardiovascular: normal rate Abdomen: soft, non tender, other - GT feeding Neurologic/Psychiatric: disoriented, aphasia, other - R hemiplegia Current Medications Medications (Trade) Dose Ordered Sig/Leonor Route PRN Reason Start Time Stop Time Status Last Admin Dose Admin Acetaminophen (Tylenol) 650 mg Q4H PRN NG Mild Pain/Temp > 100.5 07/28/19 18:20 08/27/19 18:19 Dextrose (Dextrose 50%) 25 ml Q30M PRN IV Hypoglycemia 08/08/19 11:45 09/07/19 11:44 Dextrose (Dextrose 50%) 50 ml Q30M PRN IV Hypoglycemia 08/08/19 11:45 09/07/19 11:44 Insulin Aspart (NovoLOG) BEFORE MEALS AND HS SUBQ 08/08/19 16:30 09/07/19 16:29 08/11/19 06:19 Lisinopril (PriniviL) 20 mg BID NG 08/08/19 18:00 08/17/19 20:59 08/11/19 09:12 Loperamide HCl (Imodium) 2 mg Q6H PRN NG Diarrhea 07/28/19 18:20 08/27/19 18:19 Metformin HCl (Glucophage) 500 mg BID NG 07/29/19 09:00 08/14/19 14:59 08/11/19 09:12 Metoclopramide HCl (Reglan) 5 mg EVERY 8 HOURS NG 07/28/19 22:00 08/25/19 14:59 08/11/19 13:10 Minoxidil (Loniten) 2.5 mg Q4H PRN NG bp over 160 syst 07/28/19 18:20 08/27/19 18:19 08/08/19 09:30 Bob Gilmore MD Aug 11, 2019 14:23
[2019-08-11 16:00] VITALS: BP 134/65
--- NOTE | 2019-08-11 19:41 | NUR ---
HAND-OFF: Report given to Tova FABIAN RN.
[2019-08-11 20:00] VITALS: BP 130/80
--- NOTE | 2019-08-11 20:51 | NUR ---
NURSE NOTES: Patient in bed, nonverbal, unable to make needs known. respiration is even, nasal cannula 2 L. Skin is warm and dry to touch. Noted with buttock dressing. IV site noted. Abdomen is soft and non distended. Patient with GT, feeding is infusing as ordered. Call light is at bedside. Bed in low and locked position. Provided safe environment. Will continue plan of care.
--- NOTE | 2019-08-11 21:06 | General Progress Note ---
Assessment/Plan Status: stable, unchanged Assessment/Plan: Assessment - Acute CVA - AMS - Dysphagia - s/p GT - arrhythmia Recommendations - IVF - monitor labs - elevate HOB - abx per ID Subjective Allergies: Coded Allergies: UNABLE TO ASSESS (Unverified , 06/18/19) Subjective above noted NAD Confused tolerating TF Objective Last 24 Hour Vital Signs Date Time Temp Pulse Resp B/P (MAP) Pulse Ox O2 Delivery O2 Flow Rate FiO2 08/11/19 20:00 98.0 90 16 130/80 (97) 95 08/11/19 19:40 97 Nasal Cannula 2.0 28 08/11/19 18:27 134/65 08/11/19 16:00 97.5 86 20 134/65 (88) 98 08/11/19 12:00 97.3 56 20 150/73 (98) 97 08/11/19 09:12 149/71 08/11/19 09:00 Nasal Cannula 3.0 08/11/19 08:48 98 Nasal Cannula 2.0 28 08/11/19 08:00 97.4 59 20 149/71 (97) 98 08/11/19 04:00 98.4 68 20 141/69 (93) 97 08/11/19 00:00 98.5 72 20 142/79 (100) 95 Intake and Output 08/10/19 08/11/19 19:00 07:00 Intake Total 720 ml 1210 ml Output Total 851 ml Balance 720 ml 359 ml Intake Oral 140 ml Free Water 120 ml 300 ml IV Total 20 ml Tube Feeding 600 ml 650 ml Other 100 ml Output Urine Total 850 ml Stool Total 1 ml # Voids 4 # Bowel Movements 3 Height (Feet): 5 Height (Inches): 8.00 Weight (Pounds): 150 Objective Elderly man awake, looks at NCAT supple Coarse ronchi RR abd soft, (+) GT no edema Barb Lee MD Aug 11, 2019 21:06
[2019-08-12] VITALS: BP 129/90
[2019-08-12 03:53] VITALS: BP 146/78
[2019-08-12] MEDS: NovoLOG Insulin Flexpen SUBQ SCH ×4 (05:44→21:00)
--- NOTE | 2019-08-12 07:04 | NUR ---
HAND-OFF: Report given to JUSTINO Reid.
--- NOTE | 2019-08-12 07:35 | NUR ---
NURSE NOTES: Patient in bed, A/A/OX1, nonverbal, unable to follow commands. respiration is even, nasal cannula 2 L. patient tends to squirmed on the bed. left soft wrist restraint applied for possible removing devices. on P200 mattress. wound care drsg dry and intact. Skin is warm and dry to touch. Noted with buttock dressing. IV site noted. Abdomen is soft and non distended. GT, no gatric residual noted and tolerating feeding well. Call light is at bedside. Bed in low and locked position. bed alarm on and lock Provided safe environment. Will continue plan of care.
[2019-08-12 08:00] VITALS: BP 150/83
[2019-08-12] MEDS: Lisinopril 20mg tab NG SCH ×2 (08:22→17:29)
[2019-08-12] MEDS: metFORMIN 500mg tab NG SCH ×2 (08:22→17:24)
--- NOTE | 2019-08-12 11:55 | NUR ---
CASE MANAGEMENT:REVIEW SI;LEFT MCA CVA. RT HEMIPLEGIA. APHASIA. HTN. 98.0 44 16 160/69 96% 2L NC FIO2 @ 28% NO LABS IS; LISINOPRIL NGT BID METFORMIN NGT BID LONITEN NGT Q4 HRS PRN BP>160 MED SURG STATUS DCP; PLACEMENT PENDING [facility] APPLICATION APPROVAL
[2019-08-12 12:00] VITALS: BP 149/73
--- NOTE | 2019-08-12 14:11 | General Progress Note ---
Assessment/Plan Problem List: (1) Cellulitis of right hand ICD Codes: L03.113 - Cellulitis of right upper limb SNOMED: 96240346 (2) Altered level of consciousness ICD Codes: R40.4 - Transient alteration of awareness SNOMED: 1732653 (3) Sepsis ICD Codes: A41.9 - Sepsis, unspecified organism SNOMED: 60773005 Qualifiers: Qualified Codes: A41.9 - Sepsis, unspecified organism (4) Left middle cerebral artery stroke ICD Codes: I63.512 - Cerebral infarction due to unspecified occlusion or stenosis of left middle cerebral artery SNOMED: 431682436 (5) Left carotid artery occlusion ICD Codes: I65.22 - Occlusion and stenosis of left carotid artery SNOMED: 197604312243685 (6) Hypernatremia Assessment & Plan: better ICD Codes: E87.0 - Hyperosmolality and hypernatremia SNOMED: 732396609 (7) Hypokalemia Assessment & Plan: better ICD Codes: E87.6 - Hypokalemia SNOMED: 74736246 (8) DM (diabetes mellitus) ICD Codes: E11.9 - Type 2 diabetes mellitus without complications SNOMED: 35329645 (9) ARF (acute renal failure) Assessment & Plan: ok ICD Codes: N17.9 - Acute kidney failure, unspecified SNOMED: 76759591 (10) Hypertension ICD Codes: I10 - Essential (primary) hypertension SNOMED: 50039140 (11) Aspiration pneumonia ICD Codes: J69.0 - Pneumonitis due to inhalation of food and vomit SNOMED: 117057850 (12) UTI (urinary tract infection) ICD Codes: N39.0 - Urinary tract infection, site not specified SNOMED: 29452191 Status: stable, unchanged Assessment/Plan: TF continue ASA cont Lisinopril to 20 mg bid cont Metformin follow BS Pt needs to go to SNF, because he is completely dependant on the care of others. Subjective Allergies: Coded Allergies: UNABLE TO ASSESS (Unverified , 06/18/19) Subjective all noted Objective Last 24 Hour Vital Signs Date Time Temp Pulse Resp B/P (MAP) Pulse Ox O2 Delivery O2 Flow Rate FiO2 08/12/19 12:00 98.6 43 19 149/73 (98) 98 08/12/19 11:42 44 08/12/19 09:00 Nasal Cannula 2.0 08/12/19 08:22 160/69 08/12/19 08:00 98.0 65 18 150/83 (105) 99 08/12/19 03:53 98.0 92 16 146/78 (100) 96 08/12/19 00:00 98.2 92 16 129/90 (103) 97 08/11/19 21:00 Nasal Cannula 2.0 08/11/19 20:00 98.0 90 16 130/80 (97) 95 08/11/19 19:40 97 Nasal Cannula 2.0 28 08/11/19 18:27 134/65 08/11/19 16:00 97.5 86 20 134/65 (88) 98 Intake and Output 08/11/19 08/12/19 19:00 07:00 Intake Total 1065 ml 1030 ml Output Total 400 ml 950 ml Balance 665 ml 80 ml Free Water 330 ml 250 ml Tube Feeding 735 ml 780 ml Output Urine Total 400 ml 950 ml Height (Feet): 5 Height (Inches): 8.00 Weight (Pounds): 150 Cardiovascular: normal rate Respiratory/Chest: lungs clear Edema: no edema noted Generalized Kaz Gilmore MD Aug 12, 2019 14:11
--- NOTE | 2019-08-12 14:22 | Infectious Diseases Prog Note ---
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 Aphasia R hemiplegia Leukocytosis Pseudomonas UTI treated RECOMMENDATION: Observe off antibiotic f/u CBC Subjective ROS Limited/Unobtainable: Yes Neurologic: Reports: confusion, other - on restraint Allergies: Coded Allergies: UNABLE TO ASSESS (Unverified , 06/18/19) Objective Vital Signs Last 24 Hour Vital Signs Date Time Temp Pulse Resp B/P (MAP) Pulse Ox O2 Delivery O2 Flow Rate FiO2 08/12/19 12:00 98.6 43 19 149/73 (98) 98 08/12/19 11:42 44 08/12/19 09:00 Nasal Cannula 2.0 08/12/19 08:22 160/69 08/12/19 08:00 98.0 65 18 150/83 (105) 99 08/12/19 03:53 98.0 92 16 146/78 (100) 96 08/12/19 00:00 98.2 92 16 129/90 (103) 97 08/11/19 21:00 Nasal Cannula 2.0 08/11/19 20:00 98.0 90 16 130/80 (97) 95 08/11/19 19:40 97 Nasal Cannula 2.0 28 08/11/19 18:27 134/65 08/11/19 16:00 97.5 86 20 134/65 (88) 98 Height (Feet): 5 Height (Inches): 8.00 Weight (Pounds): 150 General Appearance: no acute distress HEENT: mucous membranes moist Respiratory/Chest: lungs clear Cardiovascular: normal rate Abdomen: soft, non tender, other - GT feeding Neurologic/Psychiatric: aphasia Current Medications Medications (Trade) Dose Ordered Sig/Leonor Route PRN Reason Start Time Stop Time Status Last Admin Dose Admin Acetaminophen (Tylenol) 650 mg Q4H PRN NG Mild Pain/Temp > 100.5 07/28/19 18:20 08/27/19 18:19 Dextrose (Dextrose 50%) 25 ml Q30M PRN IV Hypoglycemia 08/08/19 11:45 09/07/19 11:44 Dextrose (Dextrose 50%) 50 ml Q30M PRN IV Hypoglycemia 08/08/19 11:45 09/07/19 11:44 Insulin Aspart (NovoLOG) BEFORE MEALS AND HS SUBQ 08/08/19 16:30 09/07/19 16:29 08/12/19 05:44 Lisinopril (PriniviL) 20 mg BID NG 08/08/19 18:00 08/17/19 20:59 08/12/19 08:22 Loperamide HCl (Imodium) 2 mg Q6H PRN NG Diarrhea 07/28/19 18:20 08/27/19 18:19 Metformin HCl (Glucophage) 500 mg BID NG 07/29/19 09:00 08/14/19 14:59 08/12/19 08:22 Metoclopramide HCl (Reglan) 5 mg EVERY 8 HOURS NG 07/28/19 22:00 08/25/19 14:59 08/12/19 05:42 Minoxidil (Loniten) 2.5 mg Q4H PRN NG bp over 160 syst 07/28/19 18:20 08/27/19 18:19 08/08/19 09:30 Bob Gilmore MD Aug 12, 2019 14:21
[2019-08-12 16:00] VITALS: BP 145/61
--- NOTE | 2019-08-12 16:00 | NUR ---
NURSE NOTES: JOSLYN Zazueta called PMD, Dr. Gilmore for HR <50. patient had been checked on palpation it was 44. on machine was 43-46. awaiting for a callback. No acute resp distress noted. and no s/sx of pain/discomfort noted. will cont to monitor. Changed gtube drsg. no leakage or discharge noted.
--- NOTE | 2019-08-12 16:44 | NUR ---
NURSE NOTES: placed another call to Dr. Gilmore concerning the HR 44 on palpation. 41 on the machine. awaits for a callback.
--- NOTE | 2019-08-12 17:29 | NUR ---
NURSE NOTES: Notified that patient having low hear rate. Per : EKG and ok to give Lisinopril. Order noted and carried out.
--- NOTE | 2019-08-12 19:20 | NUR ---
HAND-OFF: Report given to
--- NOTE | 2019-08-12 19:26 | Cardiology Progress Note ---
Assessment/Plan Assessment/Plan 1. Respiratory insufficiency. 2. Cerebrovascular accident. 3. Premature ventricular complexes. 4. Interstitial infiltrates. 5. Altered mentation. 6. CVA. 7. Hypernatremia. 8. Renal insufficiency. 9. NSVT 10. bradycaria possibly due to reglan jojo been called several time regarign beto he see asymptomatic , however reglan may cause beto will dc bp is fine Subjective ROS Limited/Unobtainable: Yes Subjective altered mentation Objective Last 24 Hour Vital Signs Date Time Temp Pulse Resp B/P (MAP) Pulse Ox O2 Delivery O2 Flow Rate FiO2 08/12/19 17:29 145/61 08/12/19 16:00 98.6 41 19 145/61 (89) 98 08/12/19 12:00 98.6 43 19 149/73 (98) 98 08/12/19 11:42 44 08/12/19 09:00 Nasal Cannula 2.0 08/12/19 08:22 160/69 08/12/19 08:00 98.0 65 18 150/83 (105) 99 08/12/19 03:53 98.0 92 16 146/78 (100) 96 08/12/19 00:00 98.2 92 16 129/90 (103) 97 08/11/19 21:00 Nasal Cannula 2.0 08/11/19 20:00 98.0 90 16 130/80 (97) 95 08/11/19 19:40 97 Nasal Cannula 2.0 28 General Appearance: no apparent distress, alert, other - confused Cardiovascular: normal rate, bradycardia Respiratory/Chest: lungs clear Abdomen: normal bowel sounds, non tender, soft Extremities: no swelling Intake and Output 08/11/19 08/12/19 19:00 07:00 Intake Total 1065 ml 1095 ml Output Total 400 ml 950 ml Balance 665 ml 145 ml Free Water 330 ml 250 ml Tube Feeding 735 ml 845 ml Output Urine Total 400 ml 950 ml Chris Melgar MD Aug 12, 2019 19:25
--- NOTE | 2019-08-12 19:45 | NUR ---
NURSE NOTES: Patient in bed, awake, unable to make needsk nown. IV site noted. GT site noted. Kept clean and comfortable. Provide save environment. Bed in low and locked position. Call light is at bedside. WIll continue plan of care. Spoke to Dr. Melgar, EKG noted, orders received.
[2019-08-12 19:57] VITALS: BP 130/90
--- NOTE | 2019-08-12 21:41 | General Progress Note ---
Assessment/Plan Status: stable, unchanged Assessment/Plan: Assessment - Acute CVA - AMS - Dysphagia - s/p GT - arrhythmia Recommendations - IVF - monitor labs - elevate HOB - abx per ID - OK off Reglan Subjective Allergies: Coded Allergies: UNABLE TO ASSESS (Unverified , 06/18/19) Subjective above noted NAD Confused tolerating TF d/w cardiology , reglan d/c';d Objective Last 24 Hour Vital Signs Date Time Temp Pulse Resp B/P (MAP) Pulse Ox O2 Delivery O2 Flow Rate FiO2 08/12/19 19:57 98.2 90 16 130/90 (103) 96 08/12/19 19:37 97 Nasal Cannula 2.0 28 08/12/19 17:29 145/61 08/12/19 16:00 98.6 41 19 145/61 (89) 98 08/12/19 12:00 98.6 43 19 149/73 (98) 98 08/12/19 11:42 44 08/12/19 09:00 Nasal Cannula 2.0 08/12/19 08:22 160/69 08/12/19 08:00 98.0 65 18 150/83 (105) 99 08/12/19 03:53 98.0 92 16 146/78 (100) 96 08/12/19 00:00 98.2 92 16 129/90 (103) 97 Intake and Output 08/11/19 08/12/19 19:00 07:00 Intake Total 1065 ml 1095 ml Output Total 400 ml 950 ml Balance 665 ml 145 ml Free Water 330 ml 250 ml Tube Feeding 735 ml 845 ml Output Urine Total 400 ml 950 ml Height (Feet): 5 Height (Inches): 8.00 Weight (Pounds): 150 Objective Elderly man awake, looks at NCAT supple Coarse ronchi RR abd soft, (+) GT no edema Barb Lee MD Aug 12, 2019 21:41
[2019-08-13] VITALS: BP 133/85
[2019-08-13 04:00] VITALS: BP 130/89
[2019-08-13] MEDS: NovoLOG Insulin Flexpen SUBQ SCH ×4 (05:59→21:00)
[2019-08-13 07:13] LABS: EOSINOPHILS % (AUTO) 2.4 % (0.0-3.0); HEMATOCRIT 37.7 % (42.0-52.0); HEMOGLOBIN 13.3 G/DL (14.2-18.0); MEAN CORPUSCULAR VOLUME 88 FL (80-99); MONOCYTES % (AUTO) 5.6 % (1.0-10.0); PLATELET COUNT 292 K/UL (150-450); RED CELL DISTRIBUTION WIDTH 11.6 % (11.6-14.8); WHITE BLOOD COUNT 12.7 K/UL (4.8-10.8)
--- NOTE | 2019-08-13 07:13 | NUR ---
HAND-OFF: Report given to Elaina Tello.
--- NOTE | 2019-08-13 07:57 | NUR ---
NURSE NOTES: Patient awake, alert x1, non-verbal; on Nasal Cannula 2 Liters, no sing of distress and shortness of breath; no sing of chest pain; IV Left For-Arm 22G flushes well; Concom Cath in place, drains yellow urine; Left had wrist Rest Restrains in place; Tube feeding Vital AF 1.2 running at 65cc; Flush 150cc Q6H; no residual; head of the bed elevated; side rails up x2, breaks engaged, bed at lowest position, breaks engaged, bed alarm on; will keep monitoring and care out plan of care.
[2019-08-13 08:00] VITALS: BP 128/80
[2019-08-13] MEDS: metFORMIN 500mg tab NG SCH ×2 (09:34→17:27)
[2019-08-13] MEDS: Lisinopril 20mg tab NG SCH ×2 (09:34→17:27)
[2019-08-13 12:00] VITALS: BP 164/96
--- NOTE | 2019-08-13 12:43 | Infectious Diseases Prog Note ---
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 Aphasia R hemiplegia Leukocytosis Pseudomonas UTI treated RECOMMENDATION: Observe off antibiotic f/u CBC Subjective ROS Limited/Unobtainable: Yes Constitutional: Denies: fever Allergies: Coded Allergies: UNABLE TO ASSESS (Unverified , 06/18/19) Objective Vital Signs Last 24 Hour Vital Signs Date Time Temp Pulse Resp B/P (MAP) Pulse Ox O2 Delivery O2 Flow Rate FiO2 08/13/19 09:34 128/80 08/13/19 09:00 Nasal Cannula 2.0 08/13/19 08:00 98.1 59 18 128/80 (96) 98 08/13/19 04:00 98.3 91 16 130/89 (103) 99 08/13/19 00:00 97.9 92 16 133/85 (101) 94 08/12/19 21:00 Nasal Cannula 2.0 08/12/19 19:57 98.2 90 16 130/90 (103) 96 08/12/19 19:37 97 Nasal Cannula 2.0 28 08/12/19 17:29 145/61 08/12/19 16:00 98.6 41 19 145/61 (89) 98 Height (Feet): 5 Height (Inches): 8.00 Weight (Pounds): 150 General Appearance: no acute distress HEENT: mucous membranes moist Respiratory/Chest: lungs clear Cardiovascular: normal rate Abdomen: soft, non tender, other - GT feeding Extremities: no edema Neurologic/Psychiatric: aphasia Laboratory Tests Test 08/13/19 05:45 White Blood Count 12.7 K/UL (4.8-10.8) H Red Blood Count 4.30 M/UL (4.70-6.10) L Hemoglobin 13.3 G/DL (14.2-18.0) L Hematocrit 37.7 % (42.0-52.0) L Mean Corpuscular Volume 88 FL (80-99) Mean Corpuscular Hemoglobin 30.8 PG (27.0-31.0) Mean Corpuscular Hemoglobin Concent 35.2 G/DL (32.0-36.0) Red Cell Distribution Width 11.6 % (11.6-14.8) Platelet Count 292 K/UL (150-450) Mean Platelet Volume 6.2 FL (6.5-10.1) L Neutrophils (%) (Auto) 63.0 % (45.0-75.0) Lymphocytes (%) (Auto) 28.0 % (20.0-45.0) Monocytes (%) (Auto) 5.6 % (1.0-10.0) Eosinophils (%) (Auto) 2.4 % (0.0-3.0) Basophils (%) (Auto) 1.0 % (0.0-2.0) Current Medications Medications (Trade) Dose Ordered Sig/Leonor Route PRN Reason Start Time Stop Time Status Last Admin Dose Admin Acetaminophen (Tylenol) 650 mg Q4H PRN NG Mild Pain/Temp > 100.5 07/28/19 18:20 08/27/19 18:19 Dextrose (Dextrose 50%) 25 ml Q30M PRN IV Hypoglycemia 08/08/19 11:45 09/07/19 11:44 Dextrose (Dextrose 50%) 50 ml Q30M PRN IV Hypoglycemia 08/08/19 11:45 09/07/19 11:44 Insulin Aspart (NovoLOG) BEFORE MEALS AND HS SUBQ 08/08/19 16:30 09/07/19 16:29 08/12/19 17:28 Lisinopril (PriniviL) 20 mg BID NG 08/08/19 18:00 08/17/19 20:59 08/13/19 09:34 Loperamide HCl (Imodium) 2 mg Q6H PRN NG Diarrhea 07/28/19 18:20 08/27/19 18:19 Metformin HCl (Glucophage) 500 mg BID NG 07/29/19 09:00 08/14/19 14:59 08/13/19 09:34 Minoxidil (Loniten) 2.5 mg Q4H PRN NG bp over 160 syst 07/28/19 18:20 08/27/19 18:19 08/08/19 09:30 Bob Gilmore MD Aug 13, 2019 12:43
[2019-08-13] MEDS: Minoxidil 2.5mg tab NG PRN (13:04)
--- NOTE | 2019-08-13 13:08 | NUR ---
NURSE NOTES: Patient's blood pressure is 164/96, and Loniten 2.5 mg given; will keep monitoring.
--- NOTE | 2019-08-13 15:57 | General Progress Note ---
Assessment/Plan Status: stable, unchanged Assessment/Plan: Assessment - Acute CVA - AMS - Dysphagia - s/p GT - arrhythmia Recommendations - IVF - monitor labs - elevate HOB - abx per ID - Off Reglan Subjective Allergies: Coded Allergies: UNABLE TO ASSESS (Unverified , 06/18/19) Subjective above noted NAD Confused tolerating TF d/w cardiology , reglan d/c';d Objective Last 24 Hour Vital Signs Date Time Temp Pulse Resp B/P (MAP) Pulse Ox O2 Delivery O2 Flow Rate FiO2 08/13/19 13:04 164/96 08/13/19 12:00 98.5 71 18 164/96 (118) 98 08/13/19 09:34 128/80 08/13/19 09:00 Nasal Cannula 2.0 08/13/19 08:00 98.1 59 18 128/80 (96) 98 08/13/19 04:00 98.3 91 16 130/89 (103) 99 08/13/19 00:00 97.9 92 16 133/85 (101) 94 08/12/19 21:00 Nasal Cannula 2.0 08/12/19 19:57 98.2 90 16 130/90 (103) 96 08/12/19 19:37 97 Nasal Cannula 2.0 28 08/12/19 17:29 145/61 08/12/19 16:00 98.6 41 19 145/61 (89) 98 Intake and Output 08/12/19 08/13/19 19:00 07:00 Intake Total 1040 ml 1130 ml Output Total 400 ml 501 ml Balance 640 ml 629 ml Free Water 260 ml 350 ml Tube Feeding 780 ml 780 ml Output Urine Total 400 ml 500 ml Stool Total 1 ml Laboratory Tests 08/13/19 05:45: White Blood Count 12.7H, Red Blood Count 4.30L, Hemoglobin 13.3L, Hematocrit 37.7L, Mean Corpuscular Volume 88, Mean Corpuscular Hemoglobin 30.8, Mean Corpuscular Hemoglobin Concent 35.2, Red Cell Distribution Width 11.6, Platelet Count 292, Mean Platelet Volume 6.2L, Neutrophils (%) (Auto) 63.0, Lymphocytes ( %) (Auto) 28.0, Monocytes (%) (Auto) 5.6, Eosinophils (%) (Auto) 2.4, Basophils (%) (Auto) 1.0 Height (Feet): 5 Height (Inches): 8.00 Weight (Pounds): 150 Objective Elderly man awake, looks at NCAT supple Coarse ronchi RR abd soft, (+) GT no edema Barb Lee MD Aug 13, 2019 15:57
[2019-08-13 16:00] VITALS: BP 131/85
--- NOTE | 2019-08-13 17:42 | General Progress Note ---
Assessment/Plan Problem List: (1) Cellulitis of right hand ICD Codes: L03.113 - Cellulitis of right upper limb SNOMED: 26224864 (2) Altered level of consciousness ICD Codes: R40.4 - Transient alteration of awareness SNOMED: 9850942 (3) Sepsis ICD Codes: A41.9 - Sepsis, unspecified organism SNOMED: 87644897 Qualifiers: Qualified Codes: A41.9 - Sepsis, unspecified organism (4) Left middle cerebral artery stroke ICD Codes: I63.512 - Cerebral infarction due to unspecified occlusion or stenosis of left middle cerebral artery SNOMED: 758514635 (5) Left carotid artery occlusion ICD Codes: I65.22 - Occlusion and stenosis of left carotid artery SNOMED: 696998823545700 (6) Hypernatremia Assessment & Plan: better ICD Codes: E87.0 - Hyperosmolality and hypernatremia SNOMED: 019504116 (7) Hypokalemia Assessment & Plan: better ICD Codes: E87.6 - Hypokalemia SNOMED: 05575838 (8) DM (diabetes mellitus) ICD Codes: E11.9 - Type 2 diabetes mellitus without complications SNOMED: 20235026 (9) ARF (acute renal failure) Assessment & Plan: ok ICD Codes: N17.9 - Acute kidney failure, unspecified SNOMED: 74974534 (10) Hypertension ICD Codes: I10 - Essential (primary) hypertension SNOMED: 35476133 (11) Aspiration pneumonia ICD Codes: J69.0 - Pneumonitis due to inhalation of food and vomit SNOMED: 227470080 (12) UTI (urinary tract infection) ICD Codes: N39.0 - Urinary tract infection, site not specified SNOMED: 76607217 Status: stable, unchanged Assessment/Plan: TF continue ASA cont Lisinopril to 20 mg bid cont Metformin follow BS Pt needs to go to SNF, because he is completely dependant on the care of others. Subjective Allergies: Coded Allergies: UNABLE TO ASSESS (Unverified , 06/18/19) Subjective all noted Objective Last 24 Hour Vital Signs Date Time Temp Pulse Resp B/P (MAP) Pulse Ox O2 Delivery O2 Flow Rate FiO2 08/13/19 17:27 131/85 08/13/19 16:00 98.7 61 19 131/85 (100) 97 08/13/19 13:04 164/96 08/13/19 12:00 98.5 71 18 164/96 (118) 98 08/13/19 09:34 128/80 08/13/19 09:00 Nasal Cannula 2.0 08/13/19 08:00 98.1 59 18 128/80 (96) 98 08/13/19 04:00 98.3 91 16 130/89 (103) 99 08/13/19 00:00 97.9 92 16 133/85 (101) 94 08/12/19 21:00 Nasal Cannula 2.0 08/12/19 19:57 98.2 90 16 130/90 (103) 96 08/12/19 19:37 97 Nasal Cannula 2.0 28 Intake and Output 08/12/19 08/13/19 19:00 07:00 Intake Total 1040 ml 1130 ml Output Total 400 ml 501 ml Balance 640 ml 629 ml Free Water 260 ml 350 ml Tube Feeding 780 ml 780 ml Output Urine Total 400 ml 500 ml Stool Total 1 ml Laboratory Tests 08/13/19 05:45: White Blood Count 12.7H, Red Blood Count 4.30L, Hemoglobin 13.3L, Hematocrit 37.7L, Mean Corpuscular Volume 88, Mean Corpuscular Hemoglobin 30.8, Mean Corpuscular Hemoglobin Concent 35.2, Red Cell Distribution Width 11.6, Platelet Count 292, Mean Platelet Volume 6.2L, Neutrophils (%) (Auto) 63.0, Lymphocytes ( %) (Auto) 28.0, Monocytes (%) (Auto) 5.6, Eosinophils (%) (Auto) 2.4, Basophils (%) (Auto) 1.0 Height (Feet): 5 Height (Inches): 8.00 Weight (Pounds): 150 Cardiovascular: normal rate Respiratory/Chest: lungs clear Edema: no edema noted Generalized Kaz Gilmore MD Aug 13, 2019 17:42
--- NOTE | 2019-08-13 19:40 | NUR ---
NURSE NOTES: Receive a report from JUSTINO Ambriz. Round is done. Pt is non-verbal but intact eye contact. No acute distress noted. No respiratory distress noted. G-tube feeing 65ml/hr without residual. Kept head-up elevated. On restraint on left wrist and skin intact and circulation. Call light within reach. Bed is lowest. Will continue to monitor.
--- NOTE | 2019-08-13 19:47 | NUR ---
HAND-OFF: Report given to JUSTINO BATRES.
[2019-08-13 20:00] VITALS: BP 130/86
[2019-08-14] VITALS: BP 133/90
[2019-08-14 04:00] VITALS: BP 130/80
[2019-08-14] MEDS: NovoLOG Insulin Flexpen SUBQ SCH ×4 (06:18→21:00)
--- NOTE | 2019-08-14 07:10 | NUR ---
NURSE NOTES: Patient awake, alert time 1; non-verbal; Nasal Cannula 2 Liter, no sing of distress and shortness of breath; Condom Cath in place, drains yellow urine; Tube feeding Vital AF 1.2 running 65cc, no residual; head of the bed elevated, side rails up time 2, breaks engaged, bed alarm on, call light within reach; wrist restrains on Left -Hand; will keep monitoring.
--- NOTE | 2019-08-14 07:10 | NUR ---
HAND-OFF: Report given to JUSTINO Mcdonald. Round is done.
--- NOTE | 2019-08-14 07:31 | General Progress Note ---
Assessment/Plan Status: stable, unchanged Assessment/Plan: Assessment - Acute CVA - AMS - Dysphagia - s/p GT - beto-arrhythmia Recommendations - IVF - monitor labs - elevate HOB - abx per ID - Off Reglan Subjective Allergies: Coded Allergies: UNABLE TO ASSESS (Unverified , 06/18/19) Subjective above noted NAD Confused tolerating TF HR stable Objective Last 24 Hour Vital Signs Date Time Temp Pulse Resp B/P (MAP) Pulse Ox O2 Delivery O2 Flow Rate FiO2 08/14/19 04:00 98.6 90 20 130/80 (97) 94 08/14/19 00:00 98.0 90 20 133/90 (104) 93 08/13/19 21:00 Nasal Cannula 2.0 08/13/19 20:08 97 Nasal Cannula 2.0 28 08/13/19 20:00 98.2 90 20 130/86 (101) 96 08/13/19 17:27 131/85 08/13/19 16:00 98.7 61 19 131/85 (100) 97 08/13/19 13:04 164/96 08/13/19 12:00 98.5 71 18 164/96 (118) 98 08/13/19 09:34 128/80 08/13/19 09:00 Nasal Cannula 2.0 08/13/19 08:00 98.1 59 18 128/80 (96) 98 Intake and Output 08/13/19 08/14/19 19:00 07:00 Intake Total 1080 ml 215 ml Output Total 300 ml Balance 1080 ml -85 ml Free Water 300 ml 150 ml Tube Feeding 780 ml 65 ml Output Urine Total 300 ml # Bowel Movements 1 Height (Feet): 5 Height (Inches): 8.00 Weight (Pounds): 150 Objective Elderly man awake, looks at NCAT supple Coarse ronchi RR abd soft, (+) GT no edema Barb Lee MD Aug 14, 2019 07:31
[2019-08-14 08:00] VITALS: BP 155/78
[2019-08-14] MEDS: Lisinopril 20mg tab NG SCH ×2 (08:20→17:22)
[2019-08-14] MEDS: metFORMIN 500mg tab NG SCH (08:20)
[2019-08-14 12:00] VITALS: BP 150/75
--- NOTE | 2019-08-14 12:21 | General Progress Note ---
Assessment/Plan Problem List: (1) Cellulitis of right hand ICD Codes: L03.113 - Cellulitis of right upper limb SNOMED: 35931106 (2) Altered level of consciousness ICD Codes: R40.4 - Transient alteration of awareness SNOMED: 6748905 (3) Sepsis ICD Codes: A41.9 - Sepsis, unspecified organism SNOMED: 96842394 Qualifiers: Qualified Codes: A41.9 - Sepsis, unspecified organism (4) Left middle cerebral artery stroke ICD Codes: I63.512 - Cerebral infarction due to unspecified occlusion or stenosis of left middle cerebral artery SNOMED: 352008698 (5) Left carotid artery occlusion ICD Codes: I65.22 - Occlusion and stenosis of left carotid artery SNOMED: 865179214029955 (6) Hypernatremia Assessment & Plan: better ICD Codes: E87.0 - Hyperosmolality and hypernatremia SNOMED: 861954562 (7) Hypokalemia Assessment & Plan: better ICD Codes: E87.6 - Hypokalemia SNOMED: 51594199 (8) DM (diabetes mellitus) ICD Codes: E11.9 - Type 2 diabetes mellitus without complications SNOMED: 65814546 (9) ARF (acute renal failure) Assessment & Plan: ok ICD Codes: N17.9 - Acute kidney failure, unspecified SNOMED: 81907953 (10) Hypertension ICD Codes: I10 - Essential (primary) hypertension SNOMED: 76464482 (11) Aspiration pneumonia ICD Codes: J69.0 - Pneumonitis due to inhalation of food and vomit SNOMED: 533024747 (12) UTI (urinary tract infection) ICD Codes: N39.0 - Urinary tract infection, site not specified SNOMED: 00689866 Status: stable, unchanged Assessment/Plan: TF continue ASA cont Lisinopril to 20 mg bid cont Metformin follow BS Pt needs to go to SNF, because he is completely dependant on the care of others. Subjective Allergies: Coded Allergies: UNABLE TO ASSESS (Unverified , 06/18/19) Subjective all noted Objective Last 24 Hour Vital Signs Date Time Temp Pulse Resp B/P (MAP) Pulse Ox O2 Delivery O2 Flow Rate FiO2 08/14/19 09:00 Nasal Cannula 2.0 08/14/19 08:20 155/78 08/14/19 08:00 98.1 59 18 155/78 (103) 99 08/14/19 04:00 98.6 90 20 130/80 (97) 94 08/14/19 00:00 98.0 90 20 133/90 (104) 93 08/13/19 21:00 Nasal Cannula 2.0 08/13/19 20:08 97 Nasal Cannula 2.0 28 08/13/19 20:00 98.2 90 20 130/86 (101) 96 08/13/19 17:27 131/85 08/13/19 16:00 98.7 61 19 131/85 (100) 97 08/13/19 13:04 164/96 Intake and Output 08/13/19 08/14/19 19:00 07:00 Intake Total 1080 ml 215 ml Output Total 300 ml Balance 1080 ml -85 ml Free Water 300 ml 150 ml Tube Feeding 780 ml 65 ml Output Urine Total 300 ml # Bowel Movements 1 Height (Feet): 5 Height (Inches): 8.00 Weight (Pounds): 150 Cardiovascular: normal rate Respiratory/Chest: lungs clear Kaz Gilmore MD Aug 14, 2019 12:21
[2019-08-14 16:00] VITALS: BP 151/81
--- NOTE | 2019-08-14 19:33 | NUR ---
HAND-OFF: Report given to JUSTINO Mosqueda.
--- NOTE | 2019-08-14 19:37 | NUR ---
NURSE NOTES: Received report from JUSTINO Max. Pt is awake but nonverbal. On NC 2L. IV site intact and patent. G tube intact and running vital 1.2 65cc/h. Tolerating well. HOB elevated. Pt has restraint on L wrist only. Skin under the restraint intact. Fall and aspiration precaution maintained. Bed locked, lowest position, alarm on, side rails up, call light within reach. Will continue to monitor.
[2019-08-14 20:00] VITALS: BP 160/85
[2019-08-14] MEDS: Minoxidil 2.5mg tab NG PRN (21:04)
[2019-08-15] VITALS: BP 151/87
[2019-08-15 04:00] VITALS: BP 149/84
[2019-08-15] MEDS: NovoLOG Insulin Flexpen SUBQ SCH ×4 (05:39→20:14)
[2019-08-15 06:38] LABS: BASOPHILS % (AUTO) 1.2 % (0.0-2.0); EOSINOPHILS % (AUTO) 2.4 % (0.0-3.0); HEMATOCRIT 40.2 % (42.0-52.0); HEMOGLOBIN 14.3 G/DL (14.2-18.0); LYMPHOCYTES % (AUTO) 27.6 % (20.0-45.0); MEAN CORPUSCULAR VOLUME 87 FL (80-99); MONOCYTES % (AUTO) 4.4 % (1.0-10.0); NEUTROPHILS % (AUTO) 64.4 % (45.0-75.0); PLATELET COUNT 275 K/UL (150-450); RED BLOOD COUNT 4.63 M/UL (4.70-6.10); RED CELL DISTRIBUTION WIDTH 11.5 % (11.6-14.8); WHITE BLOOD COUNT 12.3 K/UL (4.8-10.8)
[2019-08-15 07:19] LABS: ANION GAP 13 mmol/L (5-15); BLOOD UREA NITROGEN 27 mg/dL (7-18); CALCIUM 9.5 MG/DL (8.5-10.1); CARBON DIOXIDE 24 MMOL/L (21-32); CHLORIDE 106 MMOL/L (98-107); CREATININE 0.7 MG/DL (0.55-1.30); POTASSIUM 4.5 MMOL/L (3.5-5.1); SODIUM 143 MMOL/L (136-145)
--- NOTE | 2019-08-15 07:22 | NUR ---
HAND-OFF: Report given to JUSTINO Merlos.
--- NOTE | 2019-08-15 07:45 | NUR ---
NURSE NOTES: Received pt in bed, AAO x 0-1. Non-verbal. On 2L/min NC. IV on L hand 22g noted with SL. G-tube feeding noted. Soft wrist on L noted. Pulse present. Side rails x 2. Bed in the lowest, locked, and alarm on. Call light within reach. Will continue to monitor
[2019-08-15 08:00] VITALS: BP 185/87
[2019-08-15] MEDS: Lisinopril 20mg tab NG SCH ×2 (08:30→17:14)
--- NOTE | 2019-08-15 10:07 | NUR ---
RD ASSESSMENT & RECOMMENDATIONS SEE CARE ACTIVITY FOR COMPLETE ASSESSMENT DAILY ESTIMATED NEEDS: Needs based on sepsis and wound/ 72kg adj 25-30 kcals/kg 4037-7883 total kcals 1.25-2 g protein/kg 90-144 g total protein 25-30 mL/kg 3901-4390 total fluid mLs NUTRITION DIAGNOSIS: * Swallowing difficulty R/T dysphagia, s/p new and old CVA as evidenced by NPO per MANAGER SKILLED rec, has been on NGT feeds, s/p PEG placement, on GT feeds. * Altered nutrition related lab values r/t sepsis, DM, volume deficit as evidenced by elev WBC (12.1), elev POC glu (113-144 now improved) w/ A1C 6.9, elev Na (153-> wnl ->152->wnl), elev BUN (78-> 30), elev creat(1.6, now wnl). CURRENT TF:Vital 1.2 @ 65ml x24 hrs ENTERAL NUTRITION RECOMMENDATIONS: VITAL 1.2 @ 65ml/hr x 24 hrs to provide 1560ml, 1872kcal, 117g prot, 1265ml free water - Maintain at goal and monitor tolerance. - HOB over 30 degrees - H20 flush of 150ml q 4 hrs ADDITIONAL RECOMMENDATIONS: 1) CALIBRATED weight (fluctuating wts)-> REC TO RECALIBRATE BED Monitor wt trend w/ increased TF rate, now @65ml/hr. 2) Monitor hydration status and renal fxn: creat now wnl, BUN still elev -> rec f/up BMP 3) WOUND HEALING: add Vit C 250mg QD add Osbaldo 1pkt BID (mix w/ 4oz water, give via PEG) 4) Monitor lytes, replete as needed .
[2019-08-15 12:00] VITALS: BP 172/98
--- NOTE | 2019-08-15 12:10 | Infectious Diseases Prog Note ---
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 Aphasia R hemiplegia Leukocytosis Pseudomonas UTI treated RECOMMENDATION: Observe off antibiotic f/u CBC Subjective ROS Limited/Unobtainable: Yes Neurologic: Reports: confusion, other - on restraint Allergies: Coded Allergies: UNABLE TO ASSESS (Unverified , 06/18/19) Objective Vital Signs Last 24 Hour Vital Signs Date Time Temp Pulse Resp B/P (MAP) Pulse Ox O2 Delivery O2 Flow Rate FiO2 08/15/19 09:00 Nasal Cannula 2.0 08/15/19 08:30 185/87 08/15/19 08:00 98.2 69 18 185/87 (119) 95 08/15/19 04:00 97.2 61 22 149/84 (105) 98 08/15/19 00:00 97.9 85 22 151/87 (108) 95 08/14/19 21:04 160/90 08/14/19 21:00 Nasal Cannula 2.0 08/14/19 20:00 97.5 61 21 160/85 (110) 96 08/14/19 17:22 151/81 08/14/19 16:00 97.6 67 18 151/81 (104) 99 Height (Feet): 5 Height (Inches): 8.00 Weight (Pounds): 150 General Appearance: no acute distress HEENT: mucous membranes moist Respiratory/Chest: lungs clear Cardiovascular: normal rate Abdomen: soft, non tender Extremities: no edema Neurologic/Psychiatric: disoriented, aphasia, other - R hemiplegia Laboratory Tests Test 08/15/19 05:40 White Blood Count 12.3 K/UL (4.8-10.8) H Red Blood Count 4.63 M/UL (4.70-6.10) L Hemoglobin 14.3 G/DL (14.2-18.0) Hematocrit 40.2 % (42.0-52.0) L Mean Corpuscular Volume 87 FL (80-99) Mean Corpuscular Hemoglobin 30.9 PG (27.0-31.0) Mean Corpuscular Hemoglobin Concent 35.6 G/DL (32.0-36.0) Red Cell Distribution Width 11.5 % (11.6-14.8) L Platelet Count 275 K/UL (150-450) Mean Platelet Volume 5.7 FL (6.5-10.1) L Neutrophils (%) (Auto) 64.4 % (45.0-75.0) Lymphocytes (%) (Auto) 27.6 % (20.0-45.0) Monocytes (%) (Auto) 4.4 % (1.0-10.0) Eosinophils (%) (Auto) 2.4 % (0.0-3.0) Basophils (%) (Auto) 1.2 % (0.0-2.0) Sodium Level 143 MMOL/L (136-145) Potassium Level 4.5 MMOL/L (3.5-5.1) Chloride Level 106 MMOL/L (98-107) Carbon Dioxide Level 24 MMOL/L (21-32) Anion Gap 13 mmol/L (5-15) Blood Urea Nitrogen 27 mg/dL (7-18) H Creatinine 0.7 MG/DL (0.55-1.30) Estimat Glomerular Filtration Rate > 60 mL/min (>60) Glucose Level 133 MG/DL (74-106) H Calcium Level 9.5 MG/DL (8.5-10.1) Current Medications Medications (Trade) Dose Ordered Sig/Leonor Route PRN Reason Start Time Stop Time Status Last Admin Dose Admin Acetaminophen (Tylenol) 650 mg Q4H PRN NG Mild Pain/Temp > 100.5 07/28/19 18:20 08/27/19 18:19 Dextrose (Dextrose 50%) 25 ml Q30M PRN IV Hypoglycemia 08/08/19 11:45 09/07/19 11:44 Dextrose (Dextrose 50%) 50 ml Q30M PRN IV Hypoglycemia 08/08/19 11:45 09/07/19 11:44 Insulin Aspart (NovoLOG) BEFORE MEALS AND HS SUBQ 08/08/19 16:30 09/07/19 16:29 08/14/19 06:18 Lisinopril (PriniviL) 20 mg BID NG 08/08/19 18:00 08/17/19 20:59 08/15/19 08:30 Loperamide HCl (Imodium) 2 mg Q6H PRN NG Diarrhea 07/28/19 18:20 08/27/19 18:19 Minoxidil (Loniten) 2.5 mg Q4H PRN NG bp over 160 syst 07/28/19 18:20 08/27/19 18:19 08/14/19 21:04 Bob Gilmore MD Aug 15, 2019 12:10
[2019-08-15] MEDS: Minoxidil 2.5mg tab NG PRN (13:41)
--- NOTE | 2019-08-15 14:18 | NUR ---
CASE MANAGEMENT:REVIEW 08/13/2019 SI;LEFT MCA CVA. HEMIPLEGIA. APHASIA. HTN. 98.2 90 20 164/96 93% 2L NC WBC 12.7 IS; LISINOPRIL NGT BID METFORMIN NGT BID LONITEN NGT Q4 HRS PRN BP>160 MED SURG STATUS DCP; PLACEMENT PENDING [facility] APPLICATION APPROVAL CASE MANAGEMENT:REVIEW 08/14/2019 SI;LEFT MCA CVA. HEMIPLEGIA. APHASIA. HTN. 98.1 59 20 155/78 94% 2L NC IS; LISINOPRIL NGT BID METFORMIN NGT BID LONITEN NGT Q4 HRS PRN BP>160 MED SURG STATUS DCP; PLACEMENT PENDING [facility] APPLICATION APPROVAL CASE MANAGEMENT:REVIEW 08/15/2019 SI;LEFT MCA CVA. HEMIPLEGIA. APHASIA. HTN. 97.2 69 22 185/87 WBC 12.3 BUN 27 IS; LISINOPRIL NGT BID METFORMIN NGT BID LONITEN NGT Q4 HRS PRN BP>160 MED SURG STATUS DCP; PLACEMENT PENDING [facility] APPLICATION APPROVAL
--- NOTE | 2019-08-15 15:10 | NUR ---
NURSE NOTES: Received patient from Oliver BADILLO. Patient is in bed awake, nonverbal. Breathing is even and unlabored. No visible signs of distress noted. Patient kept clean and dry. Restraint in place, CSM monitored. Patient is in bed in locked and lowest position on pressure relieving mattress with call light within reach. Will continue to monitor.
--- NOTE | 2019-08-15 15:23 | General Progress Note ---
Assessment/Plan Problem List: (1) Cellulitis of right hand ICD Codes: L03.113 - Cellulitis of right upper limb SNOMED: 76773497 (2) Altered level of consciousness ICD Codes: R40.4 - Transient alteration of awareness SNOMED: 8112891 (3) Sepsis ICD Codes: A41.9 - Sepsis, unspecified organism SNOMED: 87714762 Qualifiers: Qualified Codes: A41.9 - Sepsis, unspecified organism (4) Left middle cerebral artery stroke ICD Codes: I63.512 - Cerebral infarction due to unspecified occlusion or stenosis of left middle cerebral artery SNOMED: 359120423 (5) Left carotid artery occlusion ICD Codes: I65.22 - Occlusion and stenosis of left carotid artery SNOMED: 877305372419218 (6) Hypernatremia Assessment & Plan: better ICD Codes: E87.0 - Hyperosmolality and hypernatremia SNOMED: 526247792 (7) Hypokalemia Assessment & Plan: better ICD Codes: E87.6 - Hypokalemia SNOMED: 63654471 (8) DM (diabetes mellitus) ICD Codes: E11.9 - Type 2 diabetes mellitus without complications SNOMED: 28264313 (9) ARF (acute renal failure) Assessment & Plan: ok ICD Codes: N17.9 - Acute kidney failure, unspecified SNOMED: 53960165 (10) Hypertension ICD Codes: I10 - Essential (primary) hypertension SNOMED: 51696820 (11) Aspiration pneumonia ICD Codes: J69.0 - Pneumonitis due to inhalation of food and vomit SNOMED: 502333079 (12) UTI (urinary tract infection) ICD Codes: N39.0 - Urinary tract infection, site not specified SNOMED: 81937244 Status: stable, unchanged Assessment/Plan: TF continue ASA cont Lisinopril to 20 mg bid cont Metformin follow BS Pt needs to go to SNF, because he is completely dependant on the care of others. Subjective Allergies: Coded Allergies: UNABLE TO ASSESS (Unverified , 06/18/19) Subjective In NAD Objective Last 24 Hour Vital Signs Date Time Temp Pulse Resp B/P (MAP) Pulse Ox O2 Delivery O2 Flow Rate FiO2 08/15/19 13:41 172/98 08/15/19 12:00 98.4 62 18 172/98 (122) 98 08/15/19 09:00 Nasal Cannula 2.0 08/15/19 08:30 185/87 08/15/19 08:00 98.2 69 18 185/87 (119) 95 08/15/19 04:00 97.2 61 22 149/84 (105) 98 08/15/19 00:00 97.9 85 22 151/87 (108) 95 08/14/19 21:04 160/90 08/14/19 21:00 Nasal Cannula 2.0 08/14/19 20:00 97.5 61 21 160/85 (110) 96 08/14/19 17:22 151/81 08/14/19 16:00 97.6 67 18 151/81 (104) 99 Intake and Output 08/14/19 08/15/19 19:00 07:00 Intake Total 1080 ml 1015 ml Output Total 800 ml 450 ml Balance 280 ml 565 ml Free Water 300 ml 300 ml Tube Feeding 780 ml 715 ml Output Urine Total 800 ml Stool Total 450 ml # Voids 1 # Bowel Movements 1 Laboratory Tests 08/15/19 05:40: White Blood Count 12.3H, Red Blood Count 4.63L, Hemoglobin 14.3, Hematocrit 40.2L, Mean Corpuscular Volume 87, Mean Corpuscular Hemoglobin 30.9, Mean Corpuscular Hemoglobin Concent 35.6, Red Cell Distribution Width 11.5L, Platelet Count 275, Mean Platelet Volume 5.7L, Neutrophils (%) (Auto) 64.4, Lymphocytes (%) (Auto) 27.6, Monocytes (%) (Auto) 4.4, Eosinophils (%) (Auto) 2.4, Basophils (%) (Auto) 1.2, Sodium Level 143, Potassium Level 4.5, Chloride Level 106, Carbon Dioxide Level 24, Anion Gap 13, Blood Urea Nitrogen 27H, Creatinine 0.7, Estimat Glomerular Filtration Rate > 60, Glucose Level 133H, Calcium Level 9.5 Height (Feet): 5 Height (Inches): 8.00 Weight (Pounds): 150 Cardiovascular: normal rate Respiratory/Chest: lungs clear Edema: no edema noted Generalized Kaz Gilmore MD Aug 15, 2019 15:23
[2019-08-15 16:00] VITALS: BP 165/81
--- NOTE | 2019-08-15 19:00 | NUR ---
NURSE NOTES: Received report from JUSTINO Maurice. Pt is awake but nonverbal. On NC 2L. IV site intact and patent. G tube intact and running vital 1.2 65cc/h. Tolerating well. HOB elevated. Pt has soft restraint on L wrist only. Skin under the restraint intact. Fall and aspiration precaution maintained. Bed locked, lowest position, alarm on, side rails up, call light within reach. Will continue to monitor.
--- NOTE | 2019-08-15 19:00 | NUR ---
HAND-OFF: Report given to Cristina BADILLO. Patient is stable.
[2019-08-15 20:00] VITALS: BP 129/22
--- NOTE | 2019-08-15 21:56 | General Progress Note ---
Assessment/Plan Status: stable, unchanged Assessment/Plan: Assessment - Acute CVA - AMS - Dysphagia - s/p GT - beto-arrhythmia Recommendations - IVF - monitor labs - elevate HOB - abx per ID - Off Reglan Subjective Allergies: Coded Allergies: UNABLE TO ASSESS (Unverified , 06/18/19) Subjective above noted NAD Confused tolerating TF HR stable Objective Last 24 Hour Vital Signs Date Time Temp Pulse Resp B/P (MAP) Pulse Ox O2 Delivery O2 Flow Rate FiO2 08/15/19 20:46 Nasal Cannula 2.0 08/15/19 20:28 96 Nasal Cannula 2.0 28 08/15/19 20:00 98.1 80 18 129/22 (57) 96 08/15/19 17:14 167/84 08/15/19 16:00 98.4 72 18 165/81 (109) 95 08/15/19 13:41 172/98 08/15/19 12:00 98.4 62 18 172/98 (122) 98 08/15/19 09:00 Nasal Cannula 2.0 08/15/19 08:30 185/87 08/15/19 08:00 98.2 69 18 185/87 (119) 95 08/15/19 04:00 97.2 61 22 149/84 (105) 98 08/15/19 00:00 97.9 85 22 151/87 (108) 95 Intake and Output 08/14/19 08/15/19 19:00 07:00 Intake Total 1080 ml 1015 ml Output Total 800 ml 450 ml Balance 280 ml 565 ml Free Water 300 ml 300 ml Tube Feeding 780 ml 715 ml Output Urine Total 800 ml Stool Total 450 ml # Voids 1 # Bowel Movements 1 Laboratory Tests 08/15/19 05:40: White Blood Count 12.3H, Red Blood Count 4.63L, Hemoglobin 14.3, Hematocrit 40.2L, Mean Corpuscular Volume 87, Mean Corpuscular Hemoglobin 30.9, Mean Corpuscular Hemoglobin Concent 35.6, Red Cell Distribution Width 11.5L, Platelet Count 275, Mean Platelet Volume 5.7L, Neutrophils (%) (Auto) 64.4, Lymphocytes (%) (Auto) 27.6, Monocytes (%) (Auto) 4.4, Eosinophils (%) (Auto) 2.4, Basophils (%) (Auto) 1.2, Sodium Level 143, Potassium Level 4.5, Chloride Level 106, Carbon Dioxide Level 24, Anion Gap 13, Blood Urea Nitrogen 27H, Creatinine 0.7, Estimat Glomerular Filtration Rate > 60, Glucose Level 133H, Calcium Level 9.5 Height (Feet): 5 Height (Inches): 8.00 Weight (Pounds): 150 Objective Elderly man awake, looks at NCAT supple Coarse ronchi RR abd soft, (+) GT no edema Barb Lee MD Aug 15, 2019 21:56
[2019-08-16] VITALS: BP 128/93
[2019-08-16 04:00] VITALS: BP 127/93
[2019-08-16] MEDS: NovoLOG Insulin Flexpen SUBQ SCH ×4 (06:02→20:38)
--- NOTE | 2019-08-16 07:29 | NUR ---
HAND-OFF: Report given to JUSTINO Max.
--- NOTE | 2019-08-16 07:34 | NUR ---
NURSE NOTES: Patient awake, alert x1, non-verbal; on Nasal Cannula 2 Liters, no sing of distress and shortness of breath; no sing of chest pain; Condom Cath in place, drains yellow urine; Tube feeding Vital AF 1.2 running 65cc, no residual; head of the bed elevated, side rails up x2, breaks engaged; Left Hand soft wrist-strain in place; bed at lowest position, bed alarm on; call light within reach; will keep monitoring.
[2019-08-16 08:00] VITALS: BP 167/77
[2019-08-16] MEDS: Lisinopril 20mg tab NG SCH ×2 (09:10→17:01)
[2019-08-16 12:00] VITALS: BP 127/77
--- NOTE | 2019-08-16 12:41 | Infectious Diseases Prog Note ---
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 Aphasia R hemiplegia Leukocytosis Pseudomonas UTI treated RECOMMENDATION: Observe off antibiotic f/u CBC Subjective ROS Limited/Unobtainable: Yes Allergies: Coded Allergies: UNABLE TO ASSESS (Unverified , 06/18/19) Objective Vital Signs Last 24 Hour Vital Signs Date Time Temp Pulse Resp B/P (MAP) Pulse Ox O2 Delivery O2 Flow Rate FiO2 08/16/19 09:10 167/77 08/16/19 09:00 Nasal Cannula 2.0 08/16/19 08:00 98.0 68 19 167/77 (107) 97 08/16/19 04:00 98.3 90 17 127/93 (104) 97 08/16/19 00:00 98.0 91 17 128/93 (105) 97 08/15/19 20:46 Nasal Cannula 2.0 08/15/19 20:28 96 Nasal Cannula 2.0 28 08/15/19 20:00 98.1 80 18 129/22 (57) 96 08/15/19 17:14 167/84 08/15/19 16:00 98.4 72 18 165/81 (109) 95 08/15/19 13:41 172/98 Height (Feet): 5 Height (Inches): 8.00 Weight (Pounds): 150 General Appearance: no acute distress Respiratory/Chest: lungs clear Cardiovascular: normal rate Abdomen: soft, non tender, other - GT feeding Extremities: no edema Neurologic/Psychiatric: aphasia, other - awake Current Medications Medications (Trade) Dose Ordered Sig/Leonor Route PRN Reason Start Time Stop Time Status Last Admin Dose Admin Acetaminophen (Tylenol) 650 mg Q4H PRN NG Mild Pain/Temp > 100.5 07/28/19 18:20 08/27/19 18:19 Dextrose (Dextrose 50%) 25 ml Q30M PRN IV Hypoglycemia 08/08/19 11:45 09/07/19 11:44 Dextrose (Dextrose 50%) 50 ml Q30M PRN IV Hypoglycemia 08/08/19 11:45 09/07/19 11:44 Insulin Aspart (NovoLOG) BEFORE MEALS AND HS SUBQ 08/08/19 16:30 09/07/19 16:29 08/16/19 06:02 Lisinopril (PriniviL) 20 mg BID NG 08/08/19 18:00 08/17/19 20:59 08/16/19 09:10 Loperamide HCl (Imodium) 2 mg Q6H PRN NG Diarrhea 07/28/19 18:20 08/27/19 18:19 Minoxidil (Loniten) 2.5 mg Q4H PRN NG bp over 160 syst 07/28/19 18:20 08/27/19 18:19 08/15/19 13:41 Bob Gilmore MD Aug 16, 2019 12:41
--- NOTE | 2019-08-16 14:58 | General Progress Note ---
Assessment/Plan Problem List: (1) Cellulitis of right hand ICD Codes: L03.113 - Cellulitis of right upper limb SNOMED: 55652185 (2) Altered level of consciousness ICD Codes: R40.4 - Transient alteration of awareness SNOMED: 8110081 (3) Sepsis ICD Codes: A41.9 - Sepsis, unspecified organism SNOMED: 18575893 Qualifiers: Qualified Codes: A41.9 - Sepsis, unspecified organism (4) Left middle cerebral artery stroke ICD Codes: I63.512 - Cerebral infarction due to unspecified occlusion or stenosis of left middle cerebral artery SNOMED: 924058103 (5) Left carotid artery occlusion ICD Codes: I65.22 - Occlusion and stenosis of left carotid artery SNOMED: 651132411293544 (6) Hypernatremia Assessment & Plan: better ICD Codes: E87.0 - Hyperosmolality and hypernatremia SNOMED: 399808749 (7) Hypokalemia Assessment & Plan: better ICD Codes: E87.6 - Hypokalemia SNOMED: 70934614 (8) DM (diabetes mellitus) ICD Codes: E11.9 - Type 2 diabetes mellitus without complications SNOMED: 83227698 (9) ARF (acute renal failure) Assessment & Plan: ok ICD Codes: N17.9 - Acute kidney failure, unspecified SNOMED: 18987626 (10) Hypertension ICD Codes: I10 - Essential (primary) hypertension SNOMED: 65369623 (11) Aspiration pneumonia ICD Codes: J69.0 - Pneumonitis due to inhalation of food and vomit SNOMED: 322174932 (12) UTI (urinary tract infection) ICD Codes: N39.0 - Urinary tract infection, site not specified SNOMED: 40976338 Status: stable, unchanged Assessment/Plan: TF continue ASA cont Lisinopril to 20 mg bid cont Metformin follow BS Pt needs to go to SNF, because he is completely dependant on the care of others. Subjective Allergies: Coded Allergies: UNABLE TO ASSESS (Unverified , 06/18/19) Subjective In NAD Objective Last 24 Hour Vital Signs Date Time Temp Pulse Resp B/P (MAP) Pulse Ox O2 Delivery O2 Flow Rate FiO2 08/16/19 12:00 97.3 72 18 127/77 (94) 98 08/16/19 09:10 167/77 08/16/19 09:00 Nasal Cannula 2.0 08/16/19 08:00 98.0 68 19 167/77 (107) 97 08/16/19 04:00 98.3 90 17 127/93 (104) 97 08/16/19 00:00 98.0 91 17 128/93 (105) 97 08/15/19 20:46 Nasal Cannula 2.0 08/15/19 20:28 96 Nasal Cannula 2.0 28 08/15/19 20:00 98.1 80 18 129/22 (57) 96 08/15/19 17:14 167/84 08/15/19 16:00 98.4 72 18 165/81 (109) 95 Intake and Output 08/15/19 08/16/19 19:00 07:00 Intake Total 65 ml 1435 ml Output Total 400 ml 650 ml Balance -335 ml 785 ml Intake Oral 140 ml Free Water 450 ml Tube Feeding 65 ml 845 ml Output Urine Total 400 ml 650 ml # Voids 1 # Bowel Movements 2 1 Height (Feet): 5 Height (Inches): 8.00 Weight (Pounds): 150 Cardiovascular: normal rate Respiratory/Chest: lungs clear Edema: no edema noted Generalized Kaz Gilmore MD Aug 16, 2019 14:58
[2019-08-16 16:00] VITALS: BP 146/74
--- NOTE | 2019-08-16 16:16 | NUR ---
CASE MANAGEMENT:REVIEW 08/16/2019 SI;LEFT MCA CVA. HEMIPLEGIA. APHASIA. HTN. 97.3 72 18 127/77 98% ON 2L NC IS; LISINOPRIL NGT BID NOVOLOG SQ AC&HS LONITEN NGT Q4 HRS PRN BP>160 4E MED SURG STATUS DCP; PLACEMENT PENDING [facility] APPLICATION APPROVAL
--- NOTE | 2019-08-16 18:16 | General Progress Note ---
Assessment/Plan Status: stable, unchanged Assessment/Plan: Assessment - Acute CVA - AMS - Dysphagia - s/p GT - beto-arrhythmia Recommendations - IVF - monitor labs - elevate HOB - abx per ID - Off Reglan Subjective Allergies: Coded Allergies: UNABLE TO ASSESS (Unverified , 06/18/19) Subjective above noted NAD Confused tolerating TF HR stable Objective Last 24 Hour Vital Signs Date Time Temp Pulse Resp B/P (MAP) Pulse Ox O2 Delivery O2 Flow Rate FiO2 08/16/19 17:01 146/74 08/16/19 16:00 98.7 98 16 146/74 (98) 97 08/16/19 12:00 97.3 72 18 127/77 (94) 98 08/16/19 09:10 167/77 08/16/19 09:00 Nasal Cannula 2.0 08/16/19 08:00 98.0 68 19 167/77 (107) 97 08/16/19 04:00 98.3 90 17 127/93 (104) 97 08/16/19 00:00 98.0 91 17 128/93 (105) 97 08/15/19 20:46 Nasal Cannula 2.0 08/15/19 20:28 96 Nasal Cannula 2.0 28 08/15/19 20:00 98.1 80 18 129/22 (57) 96 Intake and Output 08/15/19 08/16/19 19:00 07:00 Intake Total 65 ml 1435 ml Output Total 400 ml 650 ml Balance -335 ml 785 ml Intake Oral 140 ml Free Water 450 ml Tube Feeding 65 ml 845 ml Output Urine Total 400 ml 650 ml # Voids 1 # Bowel Movements 2 1 Height (Feet): 5 Height (Inches): 8.00 Weight (Pounds): 150 Objective Elderly man awake, looks at NCAT supple Coarse ronchi RR abd soft, (+) GT no edema Barb Lee MD Aug 16, 2019 18:16
--- NOTE | 2019-08-16 19:27 | NUR ---
HAND-OFF: Report given to JUSTINO Bui.
[2019-08-16 20:00] VITALS: BP 136/64
[2019-08-17] VITALS: BP 138/78
--- NOTE | 2019-08-17 | NUR ---
NURSE NOTES: Patient is in bed, awake and alert. Noted weakness on the right side.No s/s of pain or discomfort noted.On Nasal Cannula 2 Liters, respiratory distress noted. Pt has left hand soft wrist restraint on ans arm is asymptomatic. No redness or alteration of skin noted. Pulse is palpable. Condom Cath in place, drains yellow urine; Tube feeding Vital AF 1.2 running 65cc, no residual; head of the bed elevated. Fall precaution and aspiration precaution in place. Sign at the door, Bed alarm is on , bed in low and locked position and side rails two up. Call light within reach. Will do frequent rounds and continue to monitor the pt for safety.
[2019-08-17 04:00] VITALS: BP 145/80
[2019-08-17] MEDS: NovoLOG Insulin Flexpen SUBQ SCH (05:54)
--- NOTE | 2019-08-17 07:20 | NUR ---
NURSE NOTES: Patient awake, alert, orientedx1, non-verbal; on O2 2 Liters via NC, no s/sx of acute resp distress noted. Condom Cath inplaced, drains well with yellow color urine; Tube feeding Vital AF 1.2 running 65cc, no residual noted and tolerating tube feeding well. HOB elevated, side rails up x3, breaks engaged and lock. Left Hand soft wrist restrain in place due to possible removing devices. bed at lowest position, bed alarm on. siderails are upx3 call light within reach; will cont to monitor.
--- NOTE | 2019-08-17 07:57 | NUR ---
HAND-OFF: Report given to JUSTINO Navarrete. Addendum: 08/17/19 at 0758 by Nina Bui RN Disregard above documentation
--- NOTE | 2019-08-17 07:59 | NUR ---
HAND-OFF: Report given to ERIKA Navarrete. Endorsed high fall risk status to oncoming shift. fall precaution in place. Bed alarm on, bed in low and locked position.
[2019-08-17 08:00] VITALS: BP 134/60
--- NOTE | 2019-08-17 08:12 | General Progress Note ---
Assessment/Plan Status: stable, unchanged Assessment/Plan: Assessment - Acute CVA - AMS - Dysphagia - s/p GT - beto-arrhythmia Recommendations - IVF - monitor labs - elevate HOB - abx per ID - Off Reglan Subjective Allergies: Coded Allergies: UNABLE TO ASSESS (Unverified , 06/18/19) Subjective above noted NAD Confused tolerating TF HR stable Objective Last 24 Hour Vital Signs Date Time Temp Pulse Resp B/P (MAP) Pulse Ox O2 Delivery O2 Flow Rate FiO2 08/17/19 04:00 98.1 67 20 145/80 (101) 98 08/17/19 00:00 98.4 75 20 138/78 (98) 95 08/16/19 21:00 Nasal Cannula 2.0 08/16/19 20:00 98.5 97 20 136/64 (88) 97 08/16/19 19:41 97 Nasal Cannula 2.0 28 08/16/19 17:01 146/74 08/16/19 16:00 98.7 98 16 146/74 (98) 97 08/16/19 12:00 97.3 72 18 127/77 (94) 98 08/16/19 09:10 167/77 08/16/19 09:00 Nasal Cannula 2.0 Intake and Output 08/16/19 08/17/19 19:00 07:00 Intake Total 1080 ml Output Total 900 ml Balance 1080 ml -900 ml Free Water 300 ml Tube Feeding 780 ml Output Urine Total 900 ml # Voids 1 Height (Feet): 5 Height (Inches): 8.00 Weight (Pounds): 148 Objective Elderly man awake, looks at NCAT supple Coarse ronchi RR abd soft, (+) GT no edema Barb Lee MD Aug 17, 2019 08:12
[2019-08-17] MEDS: Lisinopril 20mg tab NG SCH ×2 (09:07→17:16)
--- NOTE | 2019-08-17 09:56 | General Progress Note ---
Assessment/Plan Problem List: (1) Cellulitis of right hand ICD Codes: L03.113 - Cellulitis of right upper limb SNOMED: 05661076 (2) Altered level of consciousness ICD Codes: R40.4 - Transient alteration of awareness SNOMED: 9192271 (3) Sepsis ICD Codes: A41.9 - Sepsis, unspecified organism SNOMED: 71082053 Qualifiers: Qualified Codes: A41.9 - Sepsis, unspecified organism (4) Left middle cerebral artery stroke ICD Codes: I63.512 - Cerebral infarction due to unspecified occlusion or stenosis of left middle cerebral artery SNOMED: 966822531 (5) Left carotid artery occlusion ICD Codes: I65.22 - Occlusion and stenosis of left carotid artery SNOMED: 597165874665768 (6) Hypernatremia Assessment & Plan: better ICD Codes: E87.0 - Hyperosmolality and hypernatremia SNOMED: 816893982 (7) Hypokalemia Assessment & Plan: better ICD Codes: E87.6 - Hypokalemia SNOMED: 15329439 (8) DM (diabetes mellitus) ICD Codes: E11.9 - Type 2 diabetes mellitus without complications SNOMED: 30831164 (9) ARF (acute renal failure) Assessment & Plan: ok ICD Codes: N17.9 - Acute kidney failure, unspecified SNOMED: 25318826 (10) Hypertension ICD Codes: I10 - Essential (primary) hypertension SNOMED: 59740984 (11) Aspiration pneumonia ICD Codes: J69.0 - Pneumonitis due to inhalation of food and vomit SNOMED: 215614169 (12) UTI (urinary tract infection) ICD Codes: N39.0 - Urinary tract infection, site not specified SNOMED: 09972268 Status: stable, unchanged Assessment/Plan: cont TF restart ASA cont Lisinopril to 20 mg bid Restart Metformin follow BS Pt needs to go to SNF, because he is completely dependant on the care of others. Subjective Allergies: Coded Allergies: UNABLE TO ASSESS (Unverified , 06/18/19) Subjective In NAD Objective Last 24 Hour Vital Signs Date Time Temp Pulse Resp B/P (MAP) Pulse Ox O2 Delivery O2 Flow Rate FiO2 08/17/19 09:07 134/60 08/17/19 08:00 97.8 66 17 134/60 (84) 98 08/17/19 04:00 98.1 67 20 145/80 (101) 98 08/17/19 00:00 98.4 75 20 138/78 (98) 95 08/16/19 21:00 Nasal Cannula 2.0 08/16/19 20:00 98.5 97 20 136/64 (88) 97 08/16/19 19:41 97 Nasal Cannula 2.0 28 08/16/19 17:01 146/74 08/16/19 16:00 98.7 98 16 146/74 (98) 97 08/16/19 12:00 97.3 72 18 127/77 (94) 98 Intake and Output 08/16/19 08/17/19 19:00 07:00 Intake Total 1080 ml Output Total 900 ml Balance 1080 ml -900 ml Free Water 300 ml Tube Feeding 780 ml Output Urine Total 900 ml # Voids 1 Height (Feet): 5 Height (Inches): 8.00 Weight (Pounds): 148 Cardiovascular: normal rate Respiratory/Chest: lungs clear Edema: no edema noted Kaz Thorpe MD Aug 17, 2019 09:56
--- NOTE | 2019-08-17 10:46 | NUR ---
NURSE NOTES: changed gtube drsg and no leaking and drainage noted. tolerating tube feeding well. No gastric residual noted. Kept HOB elevated for aspiration precaution. will cont to monitor.
[2019-08-17] MEDS: Aspirin Baby 81mg NG SCH (11:41)
[2019-08-17] MEDS: metFORMIN 500mg tab NG SCH ×2 (11:42→17:16)
[2019-08-17 12:00] VITALS: BP 140/70
--- NOTE | 2019-08-17 12:51 | NUR ---
CASE MANAGEMENT:REVIEW SI;LEFT MCA CVA. HEMIPLEGIA. APHASIA. HTN. 98.4 42 20 145/80 95% 2L NC NO LABS AVAILABLE IS;ASA NG QD LISINOPRIL NG BID LONITEN NG Q4 HRS PRN SBP >160 MED SURG STATUS DCP;PLACEMENT PENDING [facility] APPROVAL
--- NOTE | 2019-08-17 13:19 | Infectious Diseases Prog Note ---
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 Aphasia R hemiplegia Leukocytosis Pseudomonas UTI treated RECOMMENDATION: Observe off antibiotic f/u CBC Subjective ROS Limited/Unobtainable: Yes Constitutional: Denies: fever Allergies: Coded Allergies: UNABLE TO ASSESS (Unverified , 06/18/19) Objective Vital Signs Last 24 Hour Vital Signs Date Time Temp Pulse Resp B/P (MAP) Pulse Ox O2 Delivery O2 Flow Rate FiO2 08/17/19 12:00 97.9 70 16 140/70 (93) 97 08/17/19 09:07 134/60 08/17/19 09:00 Nasal Cannula 2.0 08/17/19 08:00 97.8 66 17 134/60 (84) 98 08/17/19 04:00 98.1 67 20 145/80 (101) 98 08/17/19 00:00 98.4 75 20 138/78 (98) 95 08/16/19 21:00 Nasal Cannula 2.0 08/16/19 20:00 98.5 97 20 136/64 (88) 97 08/16/19 19:41 97 Nasal Cannula 2.0 28 08/16/19 17:01 146/74 08/16/19 16:00 98.7 98 16 146/74 (98) 97 Height (Feet): 5 Height (Inches): 8.00 Weight (Pounds): 148 General Appearance: no acute distress HEENT: mucous membranes moist Respiratory/Chest: lungs clear Cardiovascular: normal rate Abdomen: soft, non tender, other - GT feeding Extremities: no edema Neurologic/Psychiatric: aphasia, other - R hemiplegia Current Medications Medications (Trade) Dose Ordered Sig/Leonor Route PRN Reason Start Time Stop Time Status Last Admin Dose Admin Acetaminophen (Tylenol) 650 mg Q4H PRN NG Mild Pain/Temp > 100.5 07/28/19 18:20 08/27/19 18:19 Aspirin (ASA) 162 mg DAILY NG 08/17/19 10:00 09/16/19 09:59 08/17/19 11:41 Dextrose (Dextrose 50%) 25 ml Q30M PRN IV Hypoglycemia 08/08/19 11:45 09/07/19 11:44 Dextrose (Dextrose 50%) 50 ml Q30M PRN IV Hypoglycemia 08/08/19 11:45 09/07/19 11:44 Lisinopril (PriniviL) 20 mg BID NG 08/08/19 18:00 08/17/19 20:59 08/17/19 09:07 Loperamide HCl (Imodium) 2 mg Q6H PRN NG Diarrhea 07/28/19 18:20 08/27/19 18:19 Metformin HCl (Glucophage) 500 mg BID NG 08/17/19 10:00 09/16/19 09:59 08/17/19 11:42 Minoxidil (Loniten) 2.5 mg Q4H PRN NG bp over 160 syst 07/28/19 18:20 08/27/19 18:19 08/15/19 13:41 Bob Gilmore MD Aug 17, 2019 13:19
[2019-08-17 16:00] VITALS: BP 135/80
--- NOTE | 2019-08-17 16:03 | NUR ---
NURSE NOTES:WOUND CARE FOLLOW-UP NOTES:Incontinence associated dermatitis resolving. Buttocks and scrotum is less erythematous with fewer satellite lesions.Shaft of penis denuded with scattered lesions at head of shaft and base of shaft of penis .Both heels are dry .firm and blanchable . No new skin concerns noted. Pt can be very restless in bed and friction continues to be a concern for further skin breakdown. Fausto Score is 12.Pt is on an APM/BRUNILDA Mattress overlay . Attempts at positioning pt with pillows are unsuccessful secondary to pt restlessness in bed. Moisture Barrier Paste is being applied with each incontinence care. Optifoam drsgs are being applied to sacrum and both heels to minimize friction.Will continue wound prevention protocols as care-planned
--- NOTE | 2019-08-17 18:13 | General Progress Note ---
Assessment/Plan Status: stable, unchanged Assessment/Plan: Assessment - Acute CVA - AMS - Dysphagia - s/p GT - beto-arrhythmia Recommendations - IVF - monitor labs - elevate HOB - abx per ID - Off Reglan Subjective Allergies: Coded Allergies: UNABLE TO ASSESS (Unverified , 06/18/19) Subjective above noted NAD Confused tolerating TF HR stable Objective Last 24 Hour Vital Signs Date Time Temp Pulse Resp B/P (MAP) Pulse Ox O2 Delivery O2 Flow Rate FiO2 08/17/19 17:16 135/80 08/17/19 16:00 98.0 60 17 135/80 (98) 98 60 08/17/19 12:00 97.9 70 16 140/70 (93) 97 08/17/19 09:07 134/60 08/17/19 09:00 Nasal Cannula 2.0 08/17/19 08:00 97.8 66 17 134/60 (84) 98 08/17/19 04:00 98.1 67 20 145/80 (101) 98 08/17/19 00:00 98.4 75 20 138/78 (98) 95 08/16/19 21:00 Nasal Cannula 2.0 08/16/19 20:00 98.5 97 20 136/64 (88) 97 08/16/19 19:41 97 Nasal Cannula 2.0 28 Intake and Output 08/16/19 08/17/19 18:59 06:59 Intake Total 1080 ml 215 ml Output Total 900 ml Balance 1080 ml -685 ml Free Water 300 ml 150 ml Tube Feeding 780 ml 65 ml Output Urine Total 900 ml # Voids 1 Height (Feet): 5 Height (Inches): 8.00 Weight (Pounds): 148 Objective Elderly man awake, looks at MD NCAT supple Coarse ronchi RR abd soft, (+) GT no edema Barb Lee MD Aug 17, 2019 18:13
--- NOTE | 2019-08-17 18:57 | NUR ---
HAND-OFF: Report given to HUNTER.
--- NOTE | 2019-08-17 19:59 | NUR ---
NURSE NOTES: Pt is in bed , awake, opens eyes. Pt is non-verbal. Pt is on 2L n/c. HOB elevated. Vital AF 1.2 running via G-tube at 65ml/hr. Pt has left wrist soft restraint; restraint site asymptomatic. Fall precaution in place. Bed alarm on. Bed locked low in position, side rails up and call light within reach. Pt will be monitored.
[2019-08-17 20:00] VITALS: BP 149/71
[2019-08-18] VITALS (7 sets, daily range): BP systolic 148–180; BP diastolic 70–90
--- NOTE | 2019-08-18 04:00 | NUR ---
NURSE NOTES: Pt is in bed, asleep. No acute distress noted. Pt is tolerating G-tube feeding, no residual, G-tube flushed. Pt turned frequently and cleaned . HOB elevated.
[2019-08-18 07:15] LABS: BASOPHILS % (AUTO) 0.9 % (0.0-2.0); EOSINOPHILS % (AUTO) 2.9 % (0.0-3.0); HEMATOCRIT 37.9 % (42.0-52.0); HEMOGLOBIN 13.6 G/DL (14.2-18.0); MEAN CORPUSCULAR VOLUME 88 FL (80-99); MONOCYTES % (AUTO) 5.5 % (1.0-10.0); NEUTROPHILS % (AUTO) 65.8 % (45.0-75.0); PLATELET COUNT 248 K/UL (150-450); RED BLOOD COUNT 4.31 M/UL (4.70-6.10); RED CELL DISTRIBUTION WIDTH 11.9 % (11.6-14.8); WHITE BLOOD COUNT 11.5 K/UL (4.8-10.8)
--- NOTE | 2019-08-18 07:25 | NUR ---
NURSE NOTES: received patient in bed , awake, opens eyes, non-verbal, on O2 at 2L via n/c. on G-tube feeding tolerated well, no residual noted, on fall and aspiration precaution, HOB elevated at 45 degree. ; Bed alarm on. Bed locked low in position, side rails up and call light within reach. Pt has left wrist soft restraintto prevent pulling necessary device, will continue to monitored patient condition liyah miller.
--- NOTE | 2019-08-18 07:30 | NUR ---
HAND-OFF: Report given to JUSTINO Bazan.Informed that patioent is fall risk.
[2019-08-18] MEDS: metFORMIN 500mg tab NG SCH ×2 (08:27→17:03)
[2019-08-18] MEDS: Aspirin Baby 81mg NG SCH (08:27)
--- NOTE | 2019-08-18 09:00 | NUR ---
nurse notes called and left message to Dr Melgar regarding Bp 180'S awaiting for MD call liyah miller
--- NOTE | 2019-08-18 10:57 | General Progress Note ---
Assessment/Plan Status: stable, unchanged Assessment/Plan: Assessment - Acute CVA - AMS - Dysphagia - s/p GT - beto-arrhythmia Recommendations - IVF - monitor labs - elevate HOB - abx per ID - Off Reglan Subjective Allergies: Coded Allergies: UNABLE TO ASSESS (Unverified , 06/18/19) Subjective above noted NAD Confused tolerating TF HR stable Objective Last 24 Hour Vital Signs Date Time Temp Pulse Resp B/P (MAP) Pulse Ox O2 Delivery O2 Flow Rate FiO2 08/18/19 09:17 77 180/90 08/18/19 09:00 Nasal Cannula 2.0 08/18/19 08:00 97.6 77 20 180/90 (120) 100 08/18/19 04:00 97.5 66 20 155/75 (101) 99 60 08/18/19 00:00 97.9 69 22 148/72 (97) 96 60 08/17/19 21:00 Nasal Cannula 2.0 08/17/19 20:14 98 Nasal Cannula 2.0 28 08/17/19 20:00 98.0 61 20 149/71 (97) 98 60 08/17/19 17:16 135/80 08/17/19 16:00 98.0 60 17 135/80 (98) 98 60 08/17/19 12:00 97.9 70 16 140/70 (93) 97 Intake and Output 08/17/19 08/18/19 19:00 07:00 Intake Total 1000 ml 1015 ml Balance 1000 ml 1015 ml Free Water 220 ml 300 ml Tube Feeding 780 ml 715 ml # Voids 2 Laboratory Tests 08/18/19 04:56: White Blood Count 11.5H, Red Blood Count 4.31L, Hemoglobin 13.6L, Hematocrit 37.9L, Mean Corpuscular Volume 88, Mean Corpuscular Hemoglobin 31.6H, Mean Corpuscular Hemoglobin Concent 35.9, Red Cell Distribution Width 11.9, Platelet Count 248, Mean Platelet Volume 5.7L, Neutrophils (%) (Auto) 65.8, Lymphocytes ( %) (Auto) 25.0, Monocytes (%) (Auto) 5.5, Eosinophils (%) (Auto) 2.9, Basophils (%) (Auto) 0.9 Height (Feet): 5 Height (Inches): 8.00 Weight (Pounds): 148 Objective Elderly man awake, looks at NCAT supple Coarse ronchi RR abd soft, (+) GT no edema Barb Lee MD Aug 18, 2019 10:57
--- NOTE | 2019-08-18 11:30 | NUR ---
HAND-OFF: Report given to JUSTINO Atkins resting comfortably no sign of distress justino miller.
--- NOTE | 2019-08-18 11:30 | NUR ---
NURSE NOTES: Received pt from JUSTINO TORRES, Pt is awake and confused, pt is in RA, no SOB or acute respiratory distress noted, Pt has intact iv access LH 22G SL. pt has g tube in place is running well. all needs attended, bed is locked and is in the lowest position, call light within easy reach. will continue to monitor.
--- NOTE | 2019-08-18 11:34 | General Progress Note ---
Assessment/Plan Problem List: (1) Cellulitis of right hand ICD Codes: L03.113 - Cellulitis of right upper limb SNOMED: 13935504 (2) Altered level of consciousness ICD Codes: R40.4 - Transient alteration of awareness SNOMED: 6359221 (3) Sepsis ICD Codes: A41.9 - Sepsis, unspecified organism SNOMED: 87951488 Qualifiers: Qualified Codes: A41.9 - Sepsis, unspecified organism (4) Left middle cerebral artery stroke ICD Codes: I63.512 - Cerebral infarction due to unspecified occlusion or stenosis of left middle cerebral artery SNOMED: 826745692 (5) Left carotid artery occlusion ICD Codes: I65.22 - Occlusion and stenosis of left carotid artery SNOMED: 416832660703357 (6) Hypernatremia Assessment & Plan: better ICD Codes: E87.0 - Hyperosmolality and hypernatremia SNOMED: 224904162 (7) Hypokalemia Assessment & Plan: better ICD Codes: E87.6 - Hypokalemia SNOMED: 10443765 (8) DM (diabetes mellitus) Assessment & Plan: ok ICD Codes: E11.9 - Type 2 diabetes mellitus without complications SNOMED: 40444260 (9) ARF (acute renal failure) Assessment & Plan: ok ICD Codes: N17.9 - Acute kidney failure, unspecified SNOMED: 91204493 (10) Hypertension ICD Codes: I10 - Essential (primary) hypertension SNOMED: 58288036 (11) Aspiration pneumonia ICD Codes: J69.0 - Pneumonitis due to inhalation of food and vomit SNOMED: 205028287 (12) UTI (urinary tract infection) ICD Codes: N39.0 - Urinary tract infection, site not specified SNOMED: 95205385 Status: stable, unchanged Assessment/Plan: cont TF continue ASA cont Lisinopril to 20 mg bid continue Metformin follow BS Pt needs to go to SNF, because he is completely dependant on the care of others. Subjective Allergies: Coded Allergies: UNABLE TO ASSESS (Unverified , 06/18/19) Subjective In NAD Objective Last 24 Hour Vital Signs Date Time Temp Pulse Resp B/P (MAP) Pulse Ox O2 Delivery O2 Flow Rate FiO2 08/18/19 09:17 77 180/90 08/18/19 09:00 Nasal Cannula 2.0 08/18/19 08:00 97.6 77 20 180/90 (120) 100 08/18/19 04:00 97.5 66 20 155/75 (101) 99 60 08/18/19 00:00 97.9 69 22 148/72 (97) 96 60 08/17/19 21:00 Nasal Cannula 2.0 08/17/19 20:14 98 Nasal Cannula 2.0 28 08/17/19 20:00 98.0 61 20 149/71 (97) 98 60 08/17/19 17:16 135/80 08/17/19 16:00 98.0 60 17 135/80 (98) 98 60 08/17/19 12:00 97.9 70 16 140/70 (93) 97 Intake and Output 08/17/19 08/18/19 19:00 07:00 Intake Total 1000 ml 1015 ml Balance 1000 ml 1015 ml Free Water 220 ml 300 ml Tube Feeding 780 ml 715 ml # Voids 2 Laboratory Tests 08/18/19 04:56: White Blood Count 11.5H, Red Blood Count 4.31L, Hemoglobin 13.6L, Hematocrit 37.9L, Mean Corpuscular Volume 88, Mean Corpuscular Hemoglobin 31.6H, Mean Corpuscular Hemoglobin Concent 35.9, Red Cell Distribution Width 11.9, Platelet Count 248, Mean Platelet Volume 5.7L, Neutrophils (%) (Auto) 65.8, Lymphocytes ( %) (Auto) 25.0, Monocytes (%) (Auto) 5.5, Eosinophils (%) (Auto) 2.9, Basophils (%) (Auto) 0.9 Height (Feet): 5 Height (Inches): 8.00 Weight (Pounds): 148 Cardiovascular: normal rate Respiratory/Chest: lungs clear Edema: no edema noted Generalized Kaz Gilmore MD Aug 18, 2019 11:34
--- NOTE | 2019-08-18 11:44 | NUR ---
RD ASSESSMENT & RECOMMENDATIONS SEE CARE ACTIVITY FOR COMPLETE ASSESSMENT DAILY ESTIMATED NEEDS: Needs based on sepsis and wound/ 72kg adj 25-30 kcals/kg 8541-1137 total kcals 1.25-2 g protein/kg 90-144 g total protein 25-30 mL/kg 8229-8527 total fluid mLs NUTRITION DIAGNOSIS: * Swallowing difficulty R/T dysphagia, s/p new and old CVA as evidenced by NPO per CERAMIC CHEMIST rec, has been on NGT feeds, s/p PEG placement, on GT feeds. * Altered nutrition related lab values r/t sepsis, DM, volume deficit as evidenced by elev WBC (12.1), elev POC glu (113-144 now improved) w/ A1C 6.9, elev Na (153-> wnl ->152->wnl), elev BUN (78-> 30), elev creat(1.6, now wnl). ENTERAL NUTRITION RECOMMENDATIONS: VITAL 1.2 @ 65ml/hr x 24 hrs to provide 1560ml, 1872kcal, 117g prot, 1265ml free water - Maintain at goal and monitor tolerance. - HOB over 30 degrees - H20 flush of 150ml q 4 hrs ADDITIONAL RECOMMENDATIONS: 1) CALIBRATED weight (fluctuating wts)-> REC TO RECALIBRATE BED 2) Monitor hydration status and renal fxn: creat now wnl, BUN still elev -> rec f/up BMP 3) WOUND HEALING: add Vit C 250mg QD add Osbaldo 1pkt BID (mix w/ 4oz water, give via PEG) 4) Monitor lytes, replete as needed .
--- NOTE | 2019-08-18 12:11 | Infectious Diseases Prog Note ---
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 Aphasia R hemiplegia Leukocytosis improving Pseudomonas UTI treated RECOMMENDATION: Observe off antibiotic f/u CBC in few days Subjective ROS Limited/Unobtainable: Yes Neurologic: Reports: confusion, other - on restraint Allergies: Coded Allergies: UNABLE TO ASSESS (Unverified , 06/18/19) Objective Vital Signs Last 24 Hour Vital Signs Date Time Temp Pulse Resp B/P (MAP) Pulse Ox O2 Delivery O2 Flow Rate FiO2 08/18/19 09:17 77 180/90 08/18/19 09:00 Nasal Cannula 2.0 08/18/19 08:00 97.6 77 20 180/90 (120) 100 08/18/19 04:00 97.5 66 20 155/75 (101) 99 60 08/18/19 00:00 97.9 69 22 148/72 (97) 96 60 08/17/19 21:00 Nasal Cannula 2.0 08/17/19 20:14 98 Nasal Cannula 2.0 28 08/17/19 20:00 98.0 61 20 149/71 (97) 98 60 08/17/19 17:16 135/80 08/17/19 16:00 98.0 60 17 135/80 (98) 98 60 Height (Feet): 5 Height (Inches): 8.00 Weight (Pounds): 148 General Appearance: no acute distress HEENT: mucous membranes moist Respiratory/Chest: lungs clear Cardiovascular: normal rate Abdomen: soft, non tender, other - GT feeding Extremities: no edema Neurologic/Psychiatric: aphasia, other - R hemiplegia Laboratory Tests Test 08/18/19 04:56 White Blood Count 11.5 K/UL (4.8-10.8) H Red Blood Count 4.31 M/UL (4.70-6.10) L Hemoglobin 13.6 G/DL (14.2-18.0) L Hematocrit 37.9 % (42.0-52.0) L Mean Corpuscular Volume 88 FL (80-99) Mean Corpuscular Hemoglobin 31.6 PG (27.0-31.0) H Mean Corpuscular Hemoglobin Concent 35.9 G/DL (32.0-36.0) Red Cell Distribution Width 11.9 % (11.6-14.8) Platelet Count 248 K/UL (150-450) Mean Platelet Volume 5.7 FL (6.5-10.1) L Neutrophils (%) (Auto) 65.8 % (45.0-75.0) Lymphocytes (%) (Auto) 25.0 % (20.0-45.0) Monocytes (%) (Auto) 5.5 % (1.0-10.0) Eosinophils (%) (Auto) 2.9 % (0.0-3.0) Basophils (%) (Auto) 0.9 % (0.0-2.0) Current Medications Medications (Trade) Dose Ordered Sig/Leonor Route PRN Reason Start Time Stop Time Status Last Admin Dose Admin Acetaminophen (Tylenol) 650 mg Q4H PRN NG Mild Pain/Temp > 100.5 07/28/19 18:20 08/27/19 18:19 Amlodipine Besylate (Norvasc) 5 mg BIDPRN PRN ORAL high blood pressure 08/18/19 09:08 09/17/19 09:07 08/18/19 09:17 Aspirin (ASA) 162 mg DAILY NG 08/17/19 10:00 09/16/19 09:59 08/18/19 08:27 Dextrose (Dextrose 50%) 25 ml Q30M PRN IV Hypoglycemia 08/08/19 11:45 09/07/19 11:44 Dextrose (Dextrose 50%) 50 ml Q30M PRN IV Hypoglycemia 08/08/19 11:45 09/07/19 11:44 Loperamide HCl (Imodium) 2 mg Q6H PRN NG Diarrhea 07/28/19 18:20 08/27/19 18:19 Metformin HCl (Glucophage) 500 mg BID NG 08/17/19 10:00 09/16/19 09:59 08/18/19 08:27 Minoxidil (Loniten) 2.5 mg Q4H PRN NG bp over 160 syst 07/28/19 18:20 08/27/19 18:19 08/15/19 13:41 Bob Gilmore MD Aug 18, 2019 12:10
--- NOTE | 2019-08-18 12:17 | NUR ---
CASE MANAGEMENT:REVIEW SI;LEFT MCA CVA. HEMIPLEGIA. APHASIA. HTN. 97.9 77 22 190/90 96% 2L NC NO LABS AVAILABLE IS;ASA NG QD LONITEN NG Q4 HRS PRN SBP >160 NORVASC NG BID MED SURG STATUS DCP;PLACEMENT PENDING [facility]UWAN APPROVAL
[2019-08-18] MEDS: Minoxidil 2.5mg tab NG PRN (17:03)
--- NOTE | 2019-08-18 19:42 | NUR ---
HAND-OFF: Report given to MOE BADILLO. Pt is awake and stable.
--- NOTE | 2019-08-18 19:46 | NUR ---
nurse's notes: received patient awake, alert but non-verbal; GTF running; incontinent of both urine and bowel; left soft restraints only as patient has been seen pulling out lines; plan of care to be continued; will continue to monitor.
[2019-08-19] VITALS (7 sets, daily range): BP systolic 147–189; BP diastolic 76–95
[2019-08-19] MEDS: Minoxidil 2.5mg tab NG PRN ×2 (00:39→21:47)
--- NOTE | 2019-08-19 05:03 | NUR ---
nurse's notes: no incidents of falls, injuries or trauma reported as of this time. no S/S of pain, shortness of breath or any distress; no new skin issues noted; foam dressing over sacral/coccyx area remain CDI; optifoam dressings over bilateral heels replaced; tolerating GTF; no residual noted. repositioned every 2 hours for comfort; kept clean and dry; VSS; still on left soft wrist restraint as there has been no improvement on mentation; restraints order renewed per policy; will continue to monitor.
--- NOTE | 2019-08-19 06:18 | NUR ---
nurse's notes: external catheter initiated for this patient; kept clean and dry; insulin SS needs to be renewed; metformin scheduled in am. no s/s of hypoglycemia.
--- NOTE | 2019-08-19 07:26 | NUR ---
NURSE NOTES: Received pt in bed, AAO x 0-1. Non-verbal. RA. IV on L hand 22g noted, with SL. G-tube feeding noted. L hand soft hand restraint noted. Pulse present. Side rails x2. Bed in the lowest, locked, and alarm on. Call light within reach. Will continue to monitor
[2019-08-19] MEDS: metFORMIN 500mg tab NG SCH ×2 (08:02→17:23)
[2019-08-19] MEDS: Aspirin Baby 81mg NG SCH (08:03)
--- NOTE | 2019-08-19 12:40 | Infectious Diseases Prog Note ---
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 Aphasia R hemiplegia Leukocytosis improving Pseudomonas UTI treated RECOMMENDATION: Observe off antibiotic f/u CBC in few days Subjective ROS Limited/Unobtainable: Yes Neurologic: Reports: confusion, other - on restraint Allergies: Coded Allergies: UNABLE TO ASSESS (Unverified , 06/18/19) Objective Vital Signs Last 24 Hour Vital Signs Date Time Temp Pulse Resp B/P (MAP) Pulse Ox O2 Delivery O2 Flow Rate FiO2 08/19/19 09:00 Room Air 2.0 08/19/19 08:00 97.2 70 20 147/81 (103) 95 08/19/19 04:00 97.5 67 17 149/84 (105) 97 08/19/19 00:39 171/76 08/19/19 00:00 98.7 66 16 171/76 (107) 98 66 08/18/19 21:00 Nasal Cannula 2.0 08/18/19 20:00 97.3 67 18 177/79 (111) 100 67 08/18/19 19:00 96 Nasal Cannula 2.0 28 08/18/19 18:30 152/70 (97) 08/18/19 17:03 169/79 08/18/19 16:00 98.0 70 20 169/79 (109) 96 08/18/19 13:24 97 Nasal Cannula 2.0 28 Height (Feet): 5 Height (Inches): 8.00 Weight (Pounds): 148 General Appearance: no acute distress HEENT: mucous membranes moist Respiratory/Chest: lungs clear Cardiovascular: normal rate Abdomen: soft, non tender, other - GT feeding Extremities: no edema Neurologic/Psychiatric: aphasia Current Medications Medications (Trade) Dose Ordered Sig/Leonor Route PRN Reason Start Time Stop Time Status Last Admin Dose Admin Acetaminophen (Tylenol) 650 mg Q4H PRN NG Mild Pain/Temp > 100.5 07/28/19 18:20 08/27/19 18:19 Amlodipine Besylate (Norvasc) 5 mg BIDPRN PRN ORAL high blood pressure 08/18/19 09:08 09/17/19 09:07 08/18/19 09:17 Aspirin (ASA) 162 mg DAILY NG 08/17/19 10:00 09/16/19 09:59 08/19/19 08:03 Dextrose (Dextrose 50%) 25 ml Q30M PRN IV Hypoglycemia 08/08/19 11:45 09/07/19 11:44 Dextrose (Dextrose 50%) 50 ml Q30M PRN IV Hypoglycemia 08/08/19 11:45 09/07/19 11:44 Loperamide HCl (Imodium) 2 mg Q6H PRN NG Diarrhea 07/28/19 18:20 08/27/19 18:19 Metformin HCl (Glucophage) 500 mg BID NG 08/17/19 10:00 09/16/19 09:59 08/19/19 08:02 Minoxidil (Loniten) 2.5 mg Q4H PRN NG bp over 160 syst 07/28/19 18:20 08/27/19 18:19 08/19/19 00:39 Bob Gilmore MD Aug 19, 2019 12:40
--- NOTE | 2019-08-19 14:19 | NUR ---
CASE MANAGEMENT:REVIEW SI; LEFT MCA CVA. HEMIPLEGIA. APHASIA. HTN. 98.7 79 20 189/95 95% 2L NC NO LABS AVAILABLE IS; ASA NG QD LONITEN NG Q4 HRS PRN SBP >160 NORVASC NG BID MED SURG STATUS DCP; PLACEMENT PENDING [facility] APPROVAL
--- NOTE | 2019-08-19 19:03 | NUR ---
HAND-OFF: Report given to JUSTINO Willams.
--- NOTE | 2019-08-19 19:27 | NUR ---
NURSE NOTES: Patient is in bed, awake and alert and weakness on the right side. No s/s of pain or discomfort noted. Breathing on N/C 2L no respiratory distress noted. Pt has left hand soft wrist restraint on, arm is asymptomatic. No redness or alteration of skin noted. Pulse is palpable. Condom Cath in place, drains yellow urine; Tube feeding Vital AF 1.2 running 65cc, no residual noted. Head of the bed elevated. Fall precaution and aspiration precaution in place. Sign at the door, Bed alarm is on , bed in low and locked position and side rails two up. Call light within reach. Will do frequent rounds and continue to monitor the pt for safety.
--- NOTE | 2019-08-19 21:36 | NUR ---
NURSE NOTES: Accu-check done at 2100, BS 130.
[2019-08-20] VITALS (8 sets, daily range): BP systolic 129–163; BP diastolic 70–90
--- NOTE | 2019-08-20 07:26 | NUR ---
HAND-OFF: Report given to ERIKA Reid. Endorsed high fall risk status to oncoming shift. Fall precaution in place. Sign on the door, bed alarm is on, side rails two up, bed in low and locked position.
--- NOTE | 2019-08-20 07:30 | NUR ---
NURSE NOTES: Patient awake, alert, orientedx1, non-verbal; on RA , no s/sx of acute resp distress noted. Condom Cath inplaced, drains well with yellow color urine; Tube feeding Vital AF 1.2 running 65cc, no residual noted and tolerating tube feeding well. HOB elevated for aspiration precautions. side rails up x3, breaks engaged and lock. Left Hand soft wrist restraint inplace due to potential removing devices. bed at lowest position, bed alarm on. call light within reach; will cont to monitor.
[2019-08-20] MEDS: Aspirin Baby 81mg NG SCH (08:16)
[2019-08-20] MEDS: metFORMIN 500mg tab NG SCH ×2 (08:16→17:02)
[2019-08-20] MEDS: Minoxidil 2.5mg tab NG PRN (11:48)
--- NOTE | 2019-08-20 15:57 | General Progress Note ---
Assessment/Plan Problem List: (1) Cellulitis of right hand ICD Codes: L03.113 - Cellulitis of right upper limb SNOMED: 93367890 (2) Altered level of consciousness ICD Codes: R40.4 - Transient alteration of awareness SNOMED: 7176606 (3) Sepsis ICD Codes: A41.9 - Sepsis, unspecified organism SNOMED: 36419570 Qualifiers: Qualified Codes: A41.9 - Sepsis, unspecified organism (4) Left middle cerebral artery stroke ICD Codes: I63.512 - Cerebral infarction due to unspecified occlusion or stenosis of left middle cerebral artery SNOMED: 551495843 (5) Left carotid artery occlusion ICD Codes: I65.22 - Occlusion and stenosis of left carotid artery SNOMED: 333201587791419 (6) Hypernatremia Assessment & Plan: better ICD Codes: E87.0 - Hyperosmolality and hypernatremia SNOMED: 738588516 (7) Hypokalemia Assessment & Plan: better ICD Codes: E87.6 - Hypokalemia SNOMED: 63410918 (8) DM (diabetes mellitus) Assessment & Plan: ok ICD Codes: E11.9 - Type 2 diabetes mellitus without complications SNOMED: 30218481 (9) ARF (acute renal failure) Assessment & Plan: ok ICD Codes: N17.9 - Acute kidney failure, unspecified SNOMED: 98325202 (10) Hypertension ICD Codes: I10 - Essential (primary) hypertension SNOMED: 54660981 (11) Aspiration pneumonia ICD Codes: J69.0 - Pneumonitis due to inhalation of food and vomit SNOMED: 739610141 (12) UTI (urinary tract infection) ICD Codes: N39.0 - Urinary tract infection, site not specified SNOMED: 44020827 Status: stable, unchanged Assessment/Plan: cont TF continue ASA cont Lisinopril to 20 mg bid continue Metformin follow BS Pt needs to go to SNF, because he is completely dependant on the care of others. Subjective Allergies: Coded Allergies: UNABLE TO ASSESS (Unverified , 06/18/19) Subjective In NAD Objective Last 24 Hour Vital Signs Date Time Temp Pulse Resp B/P (MAP) Pulse Ox O2 Delivery O2 Flow Rate FiO2 08/20/19 12:03 98.0 77 18 163/81 (108) 98 3/7/20 11:48 163/81 08/20/19 10:00 75 148/88 (108) 08/20/19 09:00 Room Air 2.0 08/20/19 08:00 97.7 73 18 163/90 (114) 96 08/20/19 04:00 98.4 74 20 151/77 (101) 98 08/20/19 00:15 98.0 78 20 142/85 (104) 98 08/19/19 21:54 98.1 70 20 165/86 (112) 97 08/19/19 21:47 165/86 08/19/19 21:00 Room Air 2.0 08/19/19 20:00 98.1 70 20 161/80 (107) 97 08/19/19 19:54 97 Nasal Cannula 2.0 28 08/19/19 16:00 97.8 64 20 163/76 (105) 97 Intake and Output 08/19/19 08/20/19 19:00 07:00 Intake Total 920 ml Output Total 600 ml Balance -600 ml 920 ml Free Water 140 ml Tube Feeding 780 ml Blood Product 0 ml Output Urine Total 600 ml # Bowel Movements 2 Height (Feet): 5 Height (Inches): 8.00 Weight (Pounds): 148 Cardiovascular: normal rate Respiratory/Chest: lungs clear Edema: no edema noted Generalized Kaz Gilmore MD Aug 20, 2019 15:57
--- NOTE | 2019-08-20 16:16 | NUR ---
NURSE NOTES: Aysha Reeves made aware of the high blood pressure. reorder lisinopril 20mg gt daily. will cont to monitor.
[2019-08-20] MEDS: Lisinopril 20mg tab NG SCH (17:02)
--- NOTE | 2019-08-20 19:13 | NUR ---
HAND-OFF: Report given to
--- NOTE | 2019-08-20 19:15 | NUR ---
NURSE NOTES: Patient awake,alert and nonverbal. Noted weakness on the right side. No s/s of pain or discomfort noted. On N/C 2L no acute distress noted. Pt has left hand soft wrist restraint on, arm is asymptomatic. No redness or alteration of skin noted. Pulse is palpable. Tube feeding Vital AF 1.2 running 65cc, no residual noted. Head of the bed elevated. Fall precaution and aspiration precaution in place. Sign at the door, Bed alarm is on , bed in low and locked position and side rails two up. Call light within reach. Will do frequent rounds and continue to monitor the pt for safety.
[2019-08-21] VITALS: BP 138/85
[2019-08-21 04:00] VITALS: BP 154/75
[2019-08-21 08:00] VITALS: BP 154/76
--- NOTE | 2019-08-21 08:12 | NUR ---
HAND-OFF: Report given to JUSTINO Manrique. Endorsed high fall risk status to oncoming shift. Fall precaution in place. Sign on the door, bed alarm is on, side rails two up, bed in low and locked position.
[2019-08-21] MEDS: Aspirin Baby 81mg NG SCH (08:27)
[2019-08-21] MEDS: metFORMIN 500mg tab NG SCH ×2 (08:27→17:06)
[2019-08-21] MEDS: Lisinopril 20mg tab NG SCH (08:28)
--- NOTE | 2019-08-21 10:22 | Infectious Diseases Prog Note ---
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 Aphasia R hemiplegia Leukocytosis improving Pseudomonas UTI treated RECOMMENDATION: Observe off antibiotic f/u CBC in few days Subjective ROS Limited/Unobtainable: Yes Neurologic: Reports: other - on restraint Allergies: Coded Allergies: UNABLE TO ASSESS (Unverified , 06/18/19) Objective Vital Signs Last 24 Hour Vital Signs Date Time Temp Pulse Resp B/P (MAP) Pulse Ox O2 Delivery O2 Flow Rate FiO2 08/21/19 08:28 154/76 08/21/19 08:00 98.1 67 18 154/76 (102) 96 08/21/19 07:30 95 Nasal Cannula 2.0 28 08/21/19 04:00 98.2 74 22 154/75 (101) 96 08/21/19 00:00 97.4 83 22 138/85 (102) 96 08/20/19 21:00 Room Air 2.0 08/20/19 20:00 97.7 71 21 129/70 (89) 96 08/20/19 17:02 157/84 08/20/19 16:00 98.2 67 18 157/84 (108) 99 08/20/19 13:00 150/88 (108) 08/20/19 12:03 98.0 77 18 163/81 (108) 98 08/20/19 11:48 163/81 Height (Feet): 5 Height (Inches): 8.00 Weight (Pounds): 148 General Appearance: no acute distress Respiratory/Chest: lungs clear Cardiovascular: normal rate Abdomen: soft, non tender, other - GT feeding Extremities: no edema Neurologic/Psychiatric: aphasia Current Medications Medications (Trade) Dose Ordered Sig/Leonor Route PRN Reason Start Time Stop Time Status Last Admin Dose Admin Acetaminophen (Tylenol) 650 mg Q4H PRN NG Mild Pain/Temp > 100.5 07/28/19 18:20 08/27/19 18:19 Amlodipine Besylate (Norvasc) 5 mg Q12H PRN NG high blood pressure 08/20/19 16:15 09/19/19 08:29 Aspirin (ASA) 162 mg DAILY NG 08/17/19 10:00 09/16/19 09:59 08/21/19 08:27 Dextrose (Dextrose 50%) 25 ml Q30M PRN IV Hypoglycemia 08/08/19 11:45 09/07/19 11:44 Dextrose (Dextrose 50%) 50 ml Q30M PRN IV Hypoglycemia 08/08/19 11:45 09/07/19 11:44 Lisinopril (PriniviL) 20 mg DAILY NG 08/20/19 16:05 09/19/19 16:04 08/21/19 08:28 Loperamide HCl (Imodium) 2 mg Q6H PRN NG Diarrhea 07/28/19 18:20 08/27/19 18:19 Metformin HCl (Glucophage) 500 mg BID NG 08/17/19 10:00 09/16/19 09:59 08/21/19 08:27 Minoxidil (Loniten) 2.5 mg Q4H PRN NG bp over 160 syst 07/28/19 18:20 08/27/19 18:19 08/20/19 11:48 Bob Gilmore MD Aug 21, 2019 10:22
[2019-08-21 12:00] VITALS: BP 153/70
--- NOTE | 2019-08-21 15:02 | General Progress Note ---
Assessment/Plan Problem List: (1) ARF (acute renal failure) ICD Codes: N17.9 - Acute kidney failure, unspecified SNOMED: 39740954 (2) Pneumonia ICD Codes: J18.9 - Pneumonia, unspecified organism SNOMED: 175413714 (3) DM (diabetes mellitus) ICD Codes: E11.9 - Type 2 diabetes mellitus without complications SNOMED: 12506837 (4) Hypernatremia ICD Codes: E87.0 - Hyperosmolality and hypernatremia SNOMED: 732712070 (5) Left middle cerebral artery stroke ICD Codes: I63.512 - Cerebral infarction due to unspecified occlusion or stenosis of left middle cerebral artery SNOMED: 082936363 (6) Hypertensive urgency ICD Codes: I16.0 - Hypertensive urgency SNOMED: 998882692 Status: stable, unchanged Assessment/Plan: Coverage for Dr Gilmore check labs in am Patient in-house for lack of insurance coverage and difficulty in placement per consultants Subjective ROS Limited/Unobtainable: No Constitutional: Reports: malaise Allergies: Coded Allergies: UNABLE TO ASSESS (Unverified , 06/18/19) Objective Last 24 Hour Vital Signs Date Time Temp Pulse Resp B/P (MAP) Pulse Ox O2 Delivery O2 Flow Rate FiO2 08/21/19 12:00 98.0 78 18 153/70 (97) 97 08/21/19 09:00 Nasal Cannula 2.0 08/21/19 08:28 154/76 08/21/19 08:00 98.1 67 18 154/76 (102) 96 08/21/19 07:30 95 Nasal Cannula 2.0 28 08/21/19 04:00 98.2 74 22 154/75 (101) 96 08/21/19 00:00 97.4 83 22 138/85 (102) 96 08/20/19 21:00 Room Air 2.0 08/20/19 20:00 97.7 71 21 129/70 (89) 96 08/20/19 17:02 157/84 08/20/19 16:00 98.2 67 18 157/84 (108) 99 Intake and Output 08/20/19 08/21/19 19:00 07:00 Intake Total 935 ml 915 ml Balance 935 ml 915 ml Free Water 220 ml 200 ml Tube Feeding 715 ml 715 ml # Bowel Movements 1 Height (Feet): 5 Height (Inches): 8.00 Weight (Pounds): 148 General Appearance: no apparent distress Cardiovascular: normal rate Respiratory/Chest: decreased breath sounds Abdomen: soft Ricardo Choudhary MD Aug 21, 2019 15:02
[2019-08-21 16:00] VITALS: BP 172/85
--- NOTE | 2019-08-21 19:37 | NUR ---
NURSE NOTES: Patient awake,alert and nonverbal. Pt has left hand soft wrist restraint on, arm is asymptomatic. No redness or alteration of skin noted. Tube feeding Vital AF 1.2 running 65cc, no residual noted. Head of the bed elevated for aspiration precaution. Fall precaution and aspiration precaution in place. Sign at the door, Bed alarm is on , bed in low and locked position and side rails two up. Call light within reach. Will do frequent rounds and continue to monitor the pt for safety.
--- NOTE | 2019-08-21 19:50 | NUR ---
HAND-OFF: Report given to Екатерина Bui RN. Patient sitting HOB at 45 degrees, awake and watching television, bed in lowest position, call light within reach, side rails up x 2, soft wrist restraint on left wrist in place, oxygen at 2 liters nasal cannula, G-tube in place running Vital 1.2 at 65 cc/hour, no c/o pain, no SOB, in no apparent distress, pressure release mattress in place.
[2019-08-21 20:00] VITALS: BP 114/73
[2019-08-22] VITALS: BP 131/86
[2019-08-22 04:00] VITALS: BP 122/20
--- NOTE | 2019-08-22 07:33 | NUR ---
HAND-OFF: Report given to JUSTINO Garcia.Endorsed high fall status to oncoming shift. Fall precaution in place. Sign at the door,Bed alarm is on, side raila two up, bed in low and locked position.
--- NOTE | 2019-08-22 07:35 | NUR ---
NURSE NOTES: Received pt in bed, sleeping. No s/s of pain/distress noted. IV on L hand noted, with SL. G-tube feeding noted @ 65 ml/hr. Restraint on L wrist noted. Pulse present. Side rails x 2. Bed in the lowest, locked, and alarm on. Call light within reach. Will continue to monitor.
[2019-08-22 07:43] LABS: BASOPHILS % (AUTO) 1.1 % (0.0-2.0); EOSINOPHILS % (AUTO) 1.7 % (0.0-3.0); HEMATOCRIT 41.4 % (42.0-52.0); LYMPHOCYTES % (AUTO) 20.6 % (20.0-45.0); MEAN CORPUSCULAR VOLUME 87 FL (80-99); MONOCYTES % (AUTO) 4.7 % (1.0-10.0); NEUTROPHILS % (AUTO) 71.9 % (45.0-75.0); PLATELET COUNT 116 K/UL (150-450); RED BLOOD COUNT 4.75 M/UL (4.70-6.10); RED CELL DISTRIBUTION WIDTH 11.6 % (11.6-14.8); WHITE BLOOD COUNT 12.6 K/UL (4.8-10.8)
[2019-08-22 08:00] VITALS: BP 155/84
[2019-08-22] MEDS: metFORMIN 500mg tab NG SCH ×2 (09:15→17:34)
[2019-08-22] MEDS: Aspirin Baby 81mg NG SCH (09:15)
[2019-08-22] MEDS: Lisinopril 20mg tab NG SCH (09:16)
[2019-08-22 12:00] VITALS: BP 139/81
--- NOTE | 2019-08-22 12:12 | NUR ---
CASE MANAGEMENT:REVIEW 08/20/2019 SI; LEFT MCA CVA. HEMIPLEGIA. APHASIA. HTN. 98.4 78 21 163/81 96% 2L NC NO LABS IS; ASA NG QD LONITEN NG Q4 HRS PRN SBP >160 NORVASC NG BID MED SURG STATUS DCP; PLACEMENT PENDING [facility] [employer] APPROVAL CASE MANAGEMENT:REVIEW 08/21/2019 SI; LEFT MCA CVA. HEMIPLEGIA. APHASIA. HTN. 98.6 88 18 172/85 97% 2L NC NO LABS IS; ASA NG QD LONITEN NG Q4 HRS PRN SBP >160 NORVASC NG BID MED SURG STATUS DCP; PLACEMENT PENDING [facility] APPROVAL CASE MANAGEMENT:REVIEW SI; LEFT MCA CVA. HEMIPLEGIA. APHASIA. HTN. 97.4 59 20 155/84 96% 2L NC WBC 12.6 BUN 27 IS; ASA NG QD LONITEN NG Q4 HRS PRN SBP >160 NORVASC NG BID MED SURG STATUS DCP; PLACEMENT PENDING [facility] APPROVAL
--- NOTE | 2019-08-22 12:51 | General Progress Note ---
Assessment/Plan Problem List: (1) Cellulitis of right hand ICD Codes: L03.113 - Cellulitis of right upper limb SNOMED: 05948746 (2) Altered level of consciousness ICD Codes: R40.4 - Transient alteration of awareness SNOMED: 4381350 (3) Sepsis ICD Codes: A41.9 - Sepsis, unspecified organism SNOMED: 04540726 Qualifiers: Qualified Codes: A41.9 - Sepsis, unspecified organism (4) Left middle cerebral artery stroke ICD Codes: I63.512 - Cerebral infarction due to unspecified occlusion or stenosis of left middle cerebral artery SNOMED: 637595387 (5) Left carotid artery occlusion ICD Codes: I65.22 - Occlusion and stenosis of left carotid artery SNOMED: 013239795747722 (6) Hypernatremia Assessment & Plan: better ICD Codes: E87.0 - Hyperosmolality and hypernatremia SNOMED: 926830119 (7) Hypokalemia Assessment & Plan: better ICD Codes: E87.6 - Hypokalemia SNOMED: 40266978 (8) DM (diabetes mellitus) Assessment & Plan: ok ICD Codes: E11.9 - Type 2 diabetes mellitus without complications SNOMED: 23388326 (9) ARF (acute renal failure) Assessment & Plan: ok ICD Codes: N17.9 - Acute kidney failure, unspecified SNOMED: 29112253 (10) Hypertension ICD Codes: I10 - Essential (primary) hypertension SNOMED: 50462851 (11) Aspiration pneumonia ICD Codes: J69.0 - Pneumonitis due to inhalation of food and vomit SNOMED: 698050695 (12) UTI (urinary tract infection) ICD Codes: N39.0 - Urinary tract infection, site not specified SNOMED: 58930131 Status: stable, unchanged Assessment/Plan: cont TF continue ASA cont Lisinopril to 20 mg bid continue Metformin follow BS Pt needs to go to SNF, because he is completely dependant on the care of others. Subjective Allergies: Coded Allergies: UNABLE TO ASSESS (Unverified , 06/18/19) Subjective In NAD Objective Last 24 Hour Vital Signs Date Time Temp Pulse Resp B/P (MAP) Pulse Ox O2 Delivery O2 Flow Rate FiO2 08/22/19 12:00 97.6 63 18 139/81 (100) 96 3/9/20 09:16 155/84 08/22/19 09:00 Nasal Cannula 2.0 08/22/19 08:00 98.0 59 18 155/84 (107) 97 08/22/19 04:00 97.8 94 19 122/20 (54) 96 08/22/19 00:00 97.4 91 20 131/86 (101) 96 08/21/19 21:00 Nasal Cannula 2.0 08/21/19 20:00 96 Nasal Cannula 2.0 28 08/21/19 20:00 98.6 88 17 114/73 (87) 99 08/21/19 17:06 79 172/85 08/21/19 16:00 97.6 79 17 172/85 (114) 97 Intake and Output 08/21/19 08/22/19 19:00 07:00 Intake Total 915 ml 1015 ml Balance 915 ml 1015 ml Free Water 200 ml 300 ml Tube Feeding 715 ml 715 ml # Voids 2 Laboratory Tests 08/22/19 05:20: White Blood Count 12.6H, Red Blood Count 4.75, Hemoglobin 15.0, Hematocrit 41.4L , Mean Corpuscular Volume 87, Mean Corpuscular Hemoglobin 31.6H, Mean Corpuscular Hemoglobin Concent 36.2H, Red Cell Distribution Width 11.6, Platelet Count 116L, Mean Platelet Volume 6.1L, Neutrophils (%) (Auto) 71.9, Lymphocytes (%) (Auto) 20.6, Monocytes (%) (Auto) 4.7, Eosinophils (%) (Auto) 1.7, Basophils (%) (Auto) 1.1 Height (Feet): 5 Height (Inches): 8.00 Weight (Pounds): 148 Cardiovascular: normal rate Respiratory/Chest: lungs clear Edema: no edema noted Generalized Kaz Gilmore MD Aug 22, 2019 12:51
--- NOTE | 2019-08-22 15:10 | Infectious Diseases Prog Note ---
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 Aphasia R hemiplegia Leukocytosis Pseudomonas UTI treated RECOMMENDATION: Observe off antibiotic f/u CBC in few days Subjective ROS Limited/Unobtainable: Yes Neurologic: Reports: confusion, other - on restraint Allergies: Coded Allergies: UNABLE TO ASSESS (Unverified , 06/18/19) Objective Vital Signs Last 24 Hour Vital Signs Date Time Temp Pulse Resp B/P (MAP) Pulse Ox O2 Delivery O2 Flow Rate FiO2 08/22/19 12:00 97.6 63 18 139/81 (100) 96 08/22/19 09:16 155/84 08/22/19 09:00 Nasal Cannula 2.0 08/22/19 08:00 98.0 59 18 155/84 (107) 97 08/22/19 04:00 97.8 94 19 122/20 (54) 96 08/22/19 00:00 97.4 91 20 131/86 (101) 96 08/21/19 21:00 Nasal Cannula 2.0 08/21/19 20:00 96 Nasal Cannula 2.0 28 08/21/19 20:00 98.6 88 17 114/73 (87) 99 08/21/19 17:06 79 172/85 08/21/19 16:00 97.6 79 17 172/85 (114) 97 Height (Feet): 5 Height (Inches): 8.00 Weight (Pounds): 148 General Appearance: no acute distress HEENT: mucous membranes moist Respiratory/Chest: lungs clear Cardiovascular: normal rate Abdomen: soft, non tender, other - GT feeding Extremities: no edema Skin: no rash Neurologic/Psychiatric: aphasia, other - R heiplegia Laboratory Tests Test 08/22/19 05:20 White Blood Count 12.6 K/UL (4.8-10.8) H Red Blood Count 4.75 M/UL (4.70-6.10) Hemoglobin 15.0 G/DL (14.2-18.0) Hematocrit 41.4 % (42.0-52.0) L Mean Corpuscular Volume 87 FL (80-99) Mean Corpuscular Hemoglobin 31.6 PG (27.0-31.0) H Mean Corpuscular Hemoglobin Concent 36.2 G/DL (32.0-36.0) H Red Cell Distribution Width 11.6 % (11.6-14.8) Platelet Count 116 K/UL (150-450) L Mean Platelet Volume 6.1 FL (6.5-10.1) L Neutrophils (%) (Auto) 71.9 % (45.0-75.0) Lymphocytes (%) (Auto) 20.6 % (20.0-45.0) Monocytes (%) (Auto) 4.7 % (1.0-10.0) Eosinophils (%) (Auto) 1.7 % (0.0-3.0) Basophils (%) (Auto) 1.1 % (0.0-2.0) Current Medications Medications (Trade) Dose Ordered Sig/Leonor Route PRN Reason Start Time Stop Time Status Last Admin Dose Admin Acetaminophen (Tylenol) 650 mg Q4H PRN NG Mild Pain/Temp > 100.5 07/28/19 18:20 08/27/19 18:19 Amlodipine Besylate (Norvasc) 5 mg Q12H PRN NG high blood pressure 08/20/19 16:15 09/19/19 08:29 08/21/19 17:06 Aspirin (ASA) 162 mg DAILY NG 08/17/19 10:00 09/16/19 09:59 08/22/19 09:15 Dextrose (Dextrose 50%) 25 ml Q30M PRN IV Hypoglycemia 08/08/19 11:45 09/07/19 11:44 Dextrose (Dextrose 50%) 50 ml Q30M PRN IV Hypoglycemia 08/08/19 11:45 09/07/19 11:44 Lisinopril (PriniviL) 20 mg DAILY NG 08/20/19 16:05 09/19/19 16:04 08/22/19 09:16 Loperamide HCl (Imodium) 2 mg Q6H PRN NG Diarrhea 07/28/19 18:20 08/27/19 18:19 Metformin HCl (Glucophage) 500 mg BID NG 08/17/19 10:00 09/16/19 09:59 08/22/19 09:15 Minoxidil (Loniten) 2.5 mg Q4H PRN NG bp over 160 syst 07/28/19 18:20 08/27/19 18:19 08/20/19 11:48 Bob Gilmore MD Aug 22, 2019 15:09
[2019-08-22 16:00] VITALS: BP 129/83
--- NOTE | 2019-08-22 19:21 | NUR ---
HAND-OFF: Report given to JUSTINO Starr.
--- NOTE | 2019-08-22 19:30 | NUR ---
NURSE NOTES: Patient awake in bed, on nasal cannula @2LPM. With Gtube connected to feeding. Call light in reach. Bed in lowest, lock engaged and alarm on. Will continue to monitor.
[2019-08-22 20:00] VITALS: BP 161/84
--- NOTE | 2019-08-22 22:23 | General Progress Note ---
Assessment/Plan Status: stable, unchanged Assessment/Plan: Assessment - Acute CVA - AMS - Dysphagia - s/p GT - beto-arrhythmia Recommendations - IVF - monitor labs - elevate HOB - abx per ID - Off Reglan Subjective Allergies: Coded Allergies: UNABLE TO ASSESS (Unverified , 06/18/19) Subjective above noted NAD Confused tolerating TF Objective Last 24 Hour Vital Signs Date Time Temp Pulse Resp B/P (MAP) Pulse Ox O2 Delivery O2 Flow Rate FiO2 08/22/19 16:00 98.1 64 18 129/83 (98) 97 08/22/19 12:00 97.6 63 18 139/81 (100) 96 08/22/19 09:16 155/84 08/22/19 09:00 Nasal Cannula 2.0 08/22/19 08:00 98.0 59 18 155/84 (107) 97 08/22/19 04:00 97.8 94 19 122/20 (54) 96 08/22/19 00:00 97.4 91 20 131/86 (101) 96 Intake and Output 08/21/19 08/22/19 19:00 07:00 Intake Total 915 ml 1015 ml Balance 915 ml 1015 ml Free Water 200 ml 300 ml Tube Feeding 715 ml 715 ml # Voids 2 Laboratory Tests 08/22/19 05:20: White Blood Count 12.6H, Red Blood Count 4.75, Hemoglobin 15.0, Hematocrit 41.4L , Mean Corpuscular Volume 87, Mean Corpuscular Hemoglobin 31.6H, Mean Corpuscular Hemoglobin Concent 36.2H, Red Cell Distribution Width 11.6, Platelet Count 116L, Mean Platelet Volume 6.1L, Neutrophils (%) (Auto) 71.9, Lymphocytes (%) (Auto) 20.6, Monocytes (%) (Auto) 4.7, Eosinophils (%) (Auto) 1.7, Basophils (%) (Auto) 1.1 Height (Feet): 5 Height (Inches): 8.00 Weight (Pounds): 148 Objective Elderly man awake, looks at NCAT supple Coarse ronchi RR abd soft, (+) GT no edema Barb Lee MD Aug 22, 2019 22:23
[2019-08-23] VITALS: BP 148/78
[2019-08-23 04:00] VITALS: BP 150/79
--- NOTE | 2019-08-23 07:38 | NUR ---
HAND-OFF: Report given to JUSTINO Merlos.
--- NOTE | 2019-08-23 07:41 | NUR ---
NURSE NOTES: Received pt in bed, sleeping. On NC 2L/min. No s/s of pain/distress noted. IV on L hand noted, with SL. G-tube feeding noted @ 65 ml/hr. Restraint on L wrist noted. Pulse present. Side rails x 2. Bed in the lowest, locked, and alarm on. Call light within reach. Will continue to monitor.
[2019-08-23 08:00] VITALS: BP 159/79
[2019-08-23] MEDS: metFORMIN 500mg tab NG SCH ×2 (09:21→16:50)
[2019-08-23] MEDS: Lisinopril 20mg tab NG SCH (09:21)
[2019-08-23] MEDS: Aspirin Baby 81mg NG SCH (09:21)
--- NOTE | 2019-08-23 11:50 | NUR ---
CASE MANAGEMENT:REVIEW SI; LEFT MCA CVA. HEMIPLEGIA. APHASIA. HTN. 98.6 83 18 159/79 96# 2L NC NO LABS AVAILABLE IS; ASA NG QD LONITEN NG Q4 HRS PRN SBP >160 NORVASC NG BID LISINOPRIL NG QD MED SURG STATUS DCP; PLACEMENT PENDING [facility] APPROVAL
[2019-08-23 12:00] VITALS: BP 165/80
--- NOTE | 2019-08-23 12:24 | Cardiology Progress Note ---
Assessment/Plan Assessment/Plan 1. Respiratory insufficiency. 2. Cerebrovascular accident. 3. Premature ventricular complexes. 4. Interstitial infiltrates. 5. Altered mentation. 6. CVA. 7. Hypernatremia. 8. Renal insufficiency. 9. NSVT 10. bradycaria possibly due to reglan bp has been eellvated prn norvasc was addded Subjective ROS Limited/Unobtainable: Yes Subjective altered mentation Objective Last 24 Hour Vital Signs Date Time Temp Pulse Resp B/P (MAP) Pulse Ox O2 Delivery O2 Flow Rate FiO2 08/23/19 09:21 159/79 08/23/19 08:57 Nasal Cannula 2.0 08/23/19 08:00 98.2 83 18 159/79 (105) 97 08/23/19 04:00 98.4 18 150/79 (102) 97 08/23/19 00:00 98.6 18 148/78 (101) 96 08/22/19 21:00 Nasal Cannula 2.0 08/22/19 20:00 98.6 70 20 161/84 (109) 97 08/22/19 16:00 98.1 64 18 129/83 (98) 97 General Appearance: no apparent distress Neck: supple Cardiovascular: normal rate Respiratory/Chest: rhonchi - bilaterally Abdomen: normal bowel sounds, non tender, soft Extremities: no swelling Intake and Output 08/22/19 08/23/19 19:00 07:00 Output Total 500 ml Balance -500 ml Output Urine Total 500 ml # Voids 1 Chris Melgar MD Aug 23, 2019 12:24
--- NOTE | 2019-08-23 15:16 | NUR ---
RD ASSESSMENT & RECOMMENDATIONS SEE CARE ACTIVITY FOR COMPLETE ASSESSMENT DAILY ESTIMATED NEEDS: Needs based on sepsis and wound/ 72kg adj 25-30 kcals/kg 9400-2939 total kcals 1.25-2 g protein/kg 90-144 g total protein 25-30 mL/kg 2010-4247 total fluid mLs NUTRITION DIAGNOSIS: * Swallowing difficulty R/T dysphagia, s/p new and old CVA as evidenced by NPO per [employer] rec, has been on NGT feeds, s/p PEG placement, on GT feeds. * Altered nutrition related lab values r/t sepsis, DM, volume deficit as evidenced by elev WBC (12.1), elev POC glu (113-144 now improved) w/ A1C 6.9, elev Na (153-> wnl ->152->wnl), elev BUN (78-> 30), elev creat (1.6, now wnl). CURRENT TF:Vital 1.2 @ 65ml x24 hrs ENTERAL NUTRITION RECOMMENDATIONS: VITAL 1.2 @ 65ml/hr x 24 hrs to provide 1560ml, 1872kcal, 117g prot, 1265ml free water - Maintain at goal and monitor tolerance. - HOB over 30 degrees - H20 flush of 150ml q 4 hrs ADDITIONAL RECOMMENDATIONS: 1) CALIBRATED weight (fluctuating wts)-> REC TO RECALIBRATE BED 2) Monitor hydration status and renal fxn: creat now wnl, BUN still elev -> rec f/up BMP (last done 08/14) 3) WOUND HEALING: add Vit C 250mg QD Continue Osbaldo 1pkt BID (mix w/ 4oz water, give via PEG) 4) Monitor lytes, replete as needed .
[2019-08-23 16:00] VITALS: BP 169/87
[2019-08-23] MEDS: Minoxidil 2.5mg tab NG PRN ×2 (16:50→21:45)
--- NOTE | 2019-08-23 16:52 | Infectious Diseases Prog Note ---
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 Aphasia R hemiplegia Leukocytosis Pseudomonas UTI treated RECOMMENDATION: Observe off antibiotic f/u CBC in few days Subjective ROS Limited/Unobtainable: Yes Neurologic: Reports: confusion, other - on restraint Allergies: Coded Allergies: UNABLE TO ASSESS (Unverified , 06/18/19) Objective Vital Signs Last 24 Hour Vital Signs Date Time Temp Pulse Resp B/P (MAP) Pulse Ox O2 Delivery O2 Flow Rate FiO2 08/23/19 16:50 169/87 08/23/19 16:00 97.9 62 18 169/87 (114) 97 08/23/19 12:00 97.0 63 17 165/80 (108) 99 08/23/19 09:21 159/79 08/23/19 08:57 Nasal Cannula 2.0 08/23/19 08:00 98.2 83 18 159/79 (105) 97 08/23/19 04:00 98.4 18 150/79 (102) 97 08/23/19 00:00 98.6 18 148/78 (101) 96 08/22/19 21:00 Nasal Cannula 2.0 08/22/19 20:00 98.6 70 20 161/84 (109) 97 Height (Feet): 5 Height (Inches): 8.00 Weight (Pounds): 148 General Appearance: no acute distress HEENT: mucous membranes moist Respiratory/Chest: lungs clear Cardiovascular: normal rate Abdomen: soft, non tender Extremities: no edema Neurologic/Psychiatric: aphasia, other - R hemiplegia Current Medications Medications (Trade) Dose Ordered Sig/Leonor Route PRN Reason Start Time Stop Time Status Last Admin Dose Admin Acetaminophen (Tylenol) 650 mg Q4H PRN NG Mild Pain/Temp > 100.5 07/28/19 18:20 08/27/19 18:19 Amlodipine Besylate (Norvasc) 5 mg Q12H PRN NG high blood pressure 08/20/19 16:15 09/19/19 08:29 08/21/19 17:06 Aspirin (ASA) 162 mg DAILY NG 08/17/19 10:00 09/16/19 09:59 08/23/19 09:21 Dextrose (Dextrose 50%) 25 ml Q30M PRN IV Hypoglycemia 08/08/19 11:45 09/07/19 11:44 Dextrose (Dextrose 50%) 50 ml Q30M PRN IV Hypoglycemia 08/08/19 11:45 09/07/19 11:44 Lisinopril (PriniviL) 20 mg DAILY NG 08/20/19 16:05 09/19/19 16:04 08/23/19 09:21 Loperamide HCl (Imodium) 2 mg Q6H PRN NG Diarrhea 07/28/19 18:20 08/27/19 18:19 Metformin HCl (Glucophage) 500 mg BID NG 08/17/19 10:00 09/16/19 09:59 08/23/19 16:50 Minoxidil (Loniten) 2.5 mg Q4H PRN NG bp over 160 syst 07/28/19 18:20 08/27/19 18:19 08/23/19 16:50 Bob Gilmore MD Aug 23, 2019 16:52
--- NOTE | 2019-08-23 19:00 | NUR ---
HAND-OFF: Report given to JUSTINO Satrr.
--- NOTE | 2019-08-23 19:30 | NUR ---
NURSE NOTES: Patient asleep in bed, not in acute respiratory distress. On nasal cannula @2LPM. With gtube connected to feeding. Bed in lowest, locked and alarm on. Will continue to monitor. Call light in reach.
[2019-08-23 20:00] VITALS: BP 161/82
--- NOTE | 2019-08-23 20:39 | General Progress Note ---
Assessment/Plan Status: stable, unchanged Assessment/Plan: Assessment - Acute CVA - AMS - Dysphagia - s/p GT - beto-arrhythmia Recommendations - IVF - monitor labs - elevate HOB - abx per ID - Off Reglan Subjective Allergies: Coded Allergies: UNABLE TO ASSESS (Unverified , 06/18/19) Subjective above noted NAD Confused tolerating TF Objective Last 24 Hour Vital Signs Date Time Temp Pulse Resp B/P (MAP) Pulse Ox O2 Delivery O2 Flow Rate FiO2 08/23/19 20:07 98 Nasal Cannula 2.0 28 08/23/19 16:50 169/87 08/23/19 16:00 97.9 62 18 169/87 (114) 97 08/23/19 12:00 97.0 63 17 165/80 (108) 99 08/23/19 09:21 159/79 08/23/19 08:57 Nasal Cannula 2.0 08/23/19 08:00 98.2 83 18 159/79 (105) 97 08/23/19 04:00 98.4 18 150/79 (102) 97 08/23/19 00:00 98.6 18 148/78 (101) 96 08/22/19 21:00 Nasal Cannula 2.0 Intake and Output 08/22/19 08/23/19 19:00 07:00 Output Total 500 ml Balance -500 ml Output Urine Total 500 ml # Voids 1 Height (Feet): 5 Height (Inches): 8.00 Weight (Pounds): 148 Objective Elderly man awake, looks at NCAT supple Coarse ronchi RR abd soft, (+) GT no edema Barb Lee MD Aug 23, 2019 20:39
[2019-08-24] VITALS: BP 149/71
[2019-08-24 04:00] VITALS: BP 144/82
--- NOTE | 2019-08-24 07:13 | NUR ---
HAND-OFF: Report given to Rosalba.
--- NOTE | 2019-08-24 07:30 | NUR ---
NURSE NOTES: Received pt in bed, A/A/Ox1, nonverbal. fall risk from fidgetting on the bed. HOB elevated for aspiration precaution. Gtube feeding inplaced. no gastric residual noted. On O2 NC 2L/min. No s/s of pain/distress noted. IV access on L hand noted, patent and intact. with SL. Restraint on L wrist noted for potentially removing devices. Pulse and circulation assessed. Side rails are up x 3. On P200 mattress for skin integrity. Bed in the lowest, locked, and alarm on. Call light within reach. Will continue to monitor.
[2019-08-24 08:00] VITALS: BP 151/85
[2019-08-24] MEDS: Aspirin Baby 81mg NG SCH (08:50)
[2019-08-24] MEDS: metFORMIN 500mg tab NG SCH ×2 (08:50→17:00)
[2019-08-24] MEDS: Lisinopril 20mg tab NG SCH (08:56)
--- NOTE | 2019-08-24 11:25 | General Progress Note ---
Assessment/Plan Problem List: (1) Cellulitis of right hand ICD Codes: L03.113 - Cellulitis of right upper limb SNOMED: 79655383 (2) Altered level of consciousness ICD Codes: R40.4 - Transient alteration of awareness SNOMED: 0130369 (3) Sepsis ICD Codes: A41.9 - Sepsis, unspecified organism SNOMED: 55384896 Qualifiers: Qualified Codes: A41.9 - Sepsis, unspecified organism (4) Left middle cerebral artery stroke ICD Codes: I63.512 - Cerebral infarction due to unspecified occlusion or stenosis of left middle cerebral artery SNOMED: 679273190 (5) Left carotid artery occlusion ICD Codes: I65.22 - Occlusion and stenosis of left carotid artery SNOMED: 195439570984647 (6) Hypernatremia Assessment & Plan: better ICD Codes: E87.0 - Hyperosmolality and hypernatremia SNOMED: 740172879 (7) Hypokalemia Assessment & Plan: better ICD Codes: E87.6 - Hypokalemia SNOMED: 87872374 (8) DM (diabetes mellitus) Assessment & Plan: ok ICD Codes: E11.9 - Type 2 diabetes mellitus without complications SNOMED: 71637092 (9) ARF (acute renal failure) Assessment & Plan: ok ICD Codes: N17.9 - Acute kidney failure, unspecified SNOMED: 33691249 (10) Hypertension ICD Codes: I10 - Essential (primary) hypertension SNOMED: 71409916 (11) Aspiration pneumonia ICD Codes: J69.0 - Pneumonitis due to inhalation of food and vomit SNOMED: 995962946 (12) UTI (urinary tract infection) ICD Codes: N39.0 - Urinary tract infection, site not specified SNOMED: 84848578 Status: stable, unchanged Assessment/Plan: cont TF continue ASA cont Lisinopril to 20 mg bid continue Metformin follow BS Pt needs to go to SNF, because he is completely dependant on the care of others. Subjective Allergies: Coded Allergies: UNABLE TO ASSESS (Unverified , 06/18/19) Subjective In NAD Objective Last 24 Hour Vital Signs Date Time Temp Pulse Resp B/P (MAP) Pulse Ox O2 Delivery O2 Flow Rate FiO2 08/24/19 08:56 151/85 08/24/19 08:00 97.1 86 18 151/85 (107) 96 08/24/19 04:00 97.7 72 18 144/82 (102) 95 08/24/19 00:00 98.3 18 149/71 (97) 98 08/23/19 21:45 161/82 08/23/19 20:51 Nasal Cannula 2.0 08/23/19 20:07 98 Nasal Cannula 2.0 28 08/23/19 20:00 97.3 60 18 161/82 (108) 100 08/23/19 16:50 169/87 08/23/19 16:00 97.9 62 18 169/87 (114) 97 08/23/19 12:00 97.0 63 17 165/80 (108) 99 Intake and Output 08/23/19 08/24/19 19:00 07:00 Intake Total 65 ml 915 ml Output Total 1100 ml Balance 65 ml -185 ml Free Water 200 ml Tube Feeding 65 ml 715 ml Output Urine Total 1100 ml # Voids 4 # Bowel Movements 2 Height (Feet): 5 Height (Inches): 8.00 Weight (Pounds): 156 Cardiovascular: normal rate Respiratory/Chest: lungs clear Edema: no edema noted Generalized Kaz Gilmore MD Aug 24, 2019 11:25
[2019-08-24 12:00] VITALS: BP 152/81
--- NOTE | 2019-08-24 12:49 | NUR ---
CASE MANAGEMENT:REVIEW SI;LEFT MCA CVA. HEMIPLEGIA. APHASIA. HTN. 98.3 86 18 161/82 85% 2L NC NO LABS AVAILABLE IS; ASA NG QD LONITEN NG Q4 HRS PRN SBP >160 NORVASC NG BID LISINOPRIL NG QD MED SURG STATUS DCP; PLACEMENT PENDING [facility] APPROVAL
--- NOTE | 2019-08-24 13:11 | Infectious Diseases Prog Note ---
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 Aphasia R hemiplegia Leukocytosis Pseudomonas UTI treated RECOMMENDATION: Observe off antibiotic f/u CBC in few days Subjective ROS Limited/Unobtainable: Yes Allergies: Coded Allergies: UNABLE TO ASSESS (Unverified , 06/18/19) Objective Vital Signs Last 24 Hour Vital Signs Date Time Temp Pulse Resp B/P (MAP) Pulse Ox O2 Delivery O2 Flow Rate FiO2 08/24/19 09:00 Nasal Cannula 2.0 08/24/19 08:56 151/85 08/24/19 08:00 97.1 86 18 151/85 (107) 96 08/24/19 04:00 97.7 72 18 144/82 (102) 95 08/24/19 00:00 98.3 18 149/71 (97) 98 08/23/19 21:45 161/82 08/23/19 20:51 Nasal Cannula 2.0 08/23/19 20:07 98 Nasal Cannula 2.0 28 08/23/19 20:00 97.3 60 18 161/82 (108) 100 08/23/19 16:50 169/87 08/23/19 16:00 97.9 62 18 169/87 (114) 97 Height (Feet): 5 Height (Inches): 8.00 Weight (Pounds): 156 General Appearance: no acute distress HEENT: mucous membranes moist Respiratory/Chest: lungs clear Cardiovascular: normal rate Abdomen: soft, non tender, other Neurologic/Psychiatric: aphasia, other - R hemiplegia Current Medications Medications (Trade) Dose Ordered Sig/Leonor Route PRN Reason Start Time Stop Time Status Last Admin Dose Admin Acetaminophen (Tylenol) 650 mg Q4H PRN NG Mild Pain/Temp > 100.5 07/28/19 18:20 08/27/19 18:19 Amlodipine Besylate (Norvasc) 5 mg Q12H PRN NG high blood pressure 08/20/19 16:15 09/19/19 08:29 08/21/19 17:06 Aspirin (ASA) 162 mg DAILY NG 08/17/19 10:00 09/16/19 09:59 08/24/19 08:50 Dextrose (Dextrose 50%) 25 ml Q30M PRN IV Hypoglycemia 08/08/19 11:45 09/07/19 11:44 Dextrose (Dextrose 50%) 50 ml Q30M PRN IV Hypoglycemia 08/08/19 11:45 09/07/19 11:44 Lisinopril (PriniviL) 20 mg DAILY NG 08/20/19 16:05 09/19/19 16:04 08/24/19 08:56 Loperamide HCl (Imodium) 2 mg Q6H PRN NG Diarrhea 07/28/19 18:20 08/27/19 18:19 Metformin HCl (Glucophage) 500 mg BID NG 08/17/19 10:00 09/16/19 09:59 08/24/19 08:50 Minoxidil (Loniten) 2.5 mg Q4H PRN NG bp over 160 syst 07/28/19 18:20 08/27/19 18:19 08/23/19 21:45 Bob Gilmore MD Aug 24, 2019 13:11
[2019-08-24 16:06] VITALS: BP 135/67
--- NOTE | 2019-08-24 19:08 | NUR ---
HAND-OFF: Report given to JATIN.
--- NOTE | 2019-08-24 19:22 | NUR ---
NURSE NOTES: Patient asleep in bed, calm, on NC @2LPM. With gtube feeding. Will continue plan of care.
--- NOTE | 2019-08-24 19:27 | General Progress Note ---
Assessment/Plan Status: stable, unchanged Assessment/Plan: Assessment - Acute CVA - AMS - Dysphagia - s/p GT - beto-arrhythmia Recommendations - IVF - monitor labs - elevate HOB - abx per ID - Off Reglan Subjective Allergies: Coded Allergies: UNABLE TO ASSESS (Unverified , 06/18/19) Subjective above noted NAD Confused tolerating TF Objective Last 24 Hour Vital Signs Date Time Temp Pulse Resp B/P (MAP) Pulse Ox O2 Delivery O2 Flow Rate FiO2 08/24/19 16:06 97.4 67 18 135/67 (89) 98 08/24/19 12:00 98.0 68 16 152/81 (104) 99 08/24/19 09:00 Nasal Cannula 2.0 08/24/19 08:56 151/85 08/24/19 08:00 97.1 86 18 151/85 (107) 96 08/24/19 04:00 97.7 72 18 144/82 (102) 95 08/24/19 00:00 98.3 18 149/71 (97) 98 08/23/19 21:45 161/82 08/23/19 20:51 Nasal Cannula 2.0 08/23/19 20:07 98 Nasal Cannula 2.0 28 08/23/19 20:00 97.3 60 18 161/82 (108) 100 Intake and Output 08/23/19 08/24/19 19:00 07:00 Intake Total 65 ml 915 ml Output Total 1100 ml Balance 65 ml -185 ml Free Water 200 ml Tube Feeding 65 ml 715 ml Output Urine Total 1100 ml # Voids 4 # Bowel Movements 2 Height (Feet): 5 Height (Inches): 8.00 Weight (Pounds): 156 Objective Elderly man awake, looks at NCAT supple Coarse ronchi RR abd soft, (+) GT no edema Barb Lee MD Aug 24, 2019 19:27
[2019-08-24 20:00] VITALS: BP 150/89
[2019-08-25] VITALS: BP 146/72
[2019-08-25 04:00] VITALS: BP 146/73
--- NOTE | 2019-08-25 05:42 | NUR ---
HAND-OFF: Report given to JUSTINO Salazar.
--- NOTE | 2019-08-25 06:00 | NUR ---
NURSE NOTES: Pt received from outgoing nurse Ro Isabel RN. Pt is in bed,awake and a bit restless. Vitas stable. No acute distress note. Pt has left wrist restraint, restraint site is asymptomatic. Vital AF running at 65ml/hr via G-tube. HOB elevated.Pt awaiting SNF placement. Fall precaution in place, bed alarm on, bed locked low in position,side rails up and call light within reach. Pt will be monitored.
--- NOTE | 2019-08-25 07:25 | NUR ---
HAND-OFF: Report given to Maribell Leahy RN.Informed that pt is high fall risk.
--- NOTE | 2019-08-25 07:58 | NUR ---
NURSE NOTES: received report from JUSTINO Salazar. patient in bed. nonverbal. no respiratory distress noted on 2L via NC. no facial grimacing note. GTF running at 65. HOB at all times. condom cath draining. IV on LH 22g saline lock. intact. soft restraint on both wrists. skin intact. renewed on 08/23@1500. P200 mattress for skin management. bed in the lowest position and locked. call light within reach. alarm on. right side weakness. high fall risk. yellow socks on. frequent monitor. will continue to provide plan of care.
[2019-08-25 08:00] VITALS: BP 174/90
[2019-08-25] MEDS: metFORMIN 500mg tab NG SCH ×2 (09:35→17:28)
[2019-08-25] MEDS: Aspirin Baby 81mg NG SCH (09:36)
[2019-08-25] MEDS: Lisinopril 20mg tab NG SCH (09:38)
--- NOTE | 2019-08-25 10:09 | General Progress Note ---
Assessment/Plan Problem List: (1) Cellulitis of right hand ICD Codes: L03.113 - Cellulitis of right upper limb SNOMED: 18204789 (2) Altered level of consciousness ICD Codes: R40.4 - Transient alteration of awareness SNOMED: 5323827 (3) Sepsis ICD Codes: A41.9 - Sepsis, unspecified organism SNOMED: 39129983 Qualifiers: Qualified Codes: A41.9 - Sepsis, unspecified organism (4) Left middle cerebral artery stroke ICD Codes: I63.512 - Cerebral infarction due to unspecified occlusion or stenosis of left middle cerebral artery SNOMED: 567592316 (5) Left carotid artery occlusion ICD Codes: I65.22 - Occlusion and stenosis of left carotid artery SNOMED: 611615257778570 (6) Hypernatremia Assessment & Plan: better ICD Codes: E87.0 - Hyperosmolality and hypernatremia SNOMED: 569311444 (7) Hypokalemia Assessment & Plan: better ICD Codes: E87.6 - Hypokalemia SNOMED: 53810789 (8) DM (diabetes mellitus) Assessment & Plan: ok ICD Codes: E11.9 - Type 2 diabetes mellitus without complications SNOMED: 58007967 (9) ARF (acute renal failure) Assessment & Plan: ok ICD Codes: N17.9 - Acute kidney failure, unspecified SNOMED: 06636805 (10) Hypertension ICD Codes: I10 - Essential (primary) hypertension SNOMED: 90041130 (11) Aspiration pneumonia ICD Codes: J69.0 - Pneumonitis due to inhalation of food and vomit SNOMED: 651250810 (12) UTI (urinary tract infection) ICD Codes: N39.0 - Urinary tract infection, site not specified SNOMED: 89113953 Status: stable, unchanged Assessment/Plan: cont TF continue ASA cont Lisinopril to 20 mg bid continue Metformin follow BS Pt needs to go to SNF, because he is completely dependant on the care of others. Subjective Allergies: Coded Allergies: UNABLE TO ASSESS (Unverified , 06/18/19) Subjective In NAD Objective Last 24 Hour Vital Signs Date Time Temp Pulse Resp B/P (MAP) Pulse Ox O2 Delivery O2 Flow Rate FiO2 08/25/19 09:38 174/90 08/25/19 08:00 97.6 87 24 174/90 (118) 100 08/25/19 04:00 97.2 58 20 146/73 (97) 100 08/25/19 00:00 97.8 82 20 146/72 (96) 96 08/24/19 21:00 Nasal Cannula 2.0 08/24/19 20:00 97.0 93 22 150/89 (109) 98 08/24/19 20:00 97 Nasal Cannula 2.0 28 08/24/19 16:06 97.4 67 18 135/67 (89) 98 08/24/19 12:00 98.0 68 16 152/81 (104) 99 Intake and Output 08/24/19 08/25/19 19:00 07:00 Intake Total 1015 ml 915 ml Output Total 400 ml Balance 1015 ml 515 ml Free Water 300 ml 200 ml Tube Feeding 715 ml 715 ml Output Urine Total 400 ml # Bowel Movements 1 Height (Feet): 5 Height (Inches): 8.00 Weight (Pounds): 156 Cardiovascular: normal rate Respiratory/Chest: lungs clear Edema: no edema noted Generalized Kaz Gilmore MD Aug 25, 2019 10:09
--- NOTE | 2019-08-25 10:19 | General Progress Note ---
Assessment/Plan Status: stable, unchanged Assessment/Plan: Assessment - Acute CVA - AMS - Dysphagia - s/p GT - beto-arrhythmia Recommendations - IVF - monitor labs - elevate HOB - abx per ID - Off Reglan Subjective Allergies: Coded Allergies: UNABLE TO ASSESS (Unverified , 06/18/19) Subjective above noted NAD Confused tolerating TF Objective Last 24 Hour Vital Signs Date Time Temp Pulse Resp B/P (MAP) Pulse Ox O2 Delivery O2 Flow Rate FiO2 08/25/19 09:38 174/90 08/25/19 08:00 97.6 87 24 174/90 (118) 100 08/25/19 04:00 97.2 58 20 146/73 (97) 100 08/25/19 00:00 97.8 82 20 146/72 (96) 96 08/24/19 21:00 Nasal Cannula 2.0 08/24/19 20:00 97.0 93 22 150/89 (109) 98 08/24/19 20:00 97 Nasal Cannula 2.0 28 08/24/19 16:06 97.4 67 18 135/67 (89) 98 08/24/19 12:00 98.0 68 16 152/81 (104) 99 Intake and Output 08/24/19 08/25/19 19:00 07:00 Intake Total 1015 ml 915 ml Output Total 400 ml Balance 1015 ml 515 ml Free Water 300 ml 200 ml Tube Feeding 715 ml 715 ml Output Urine Total 400 ml # Bowel Movements 1 Height (Feet): 5 Height (Inches): 8.00 Weight (Pounds): 156 Objective Elderly man awake, looks at NCAT supple Coarse ronchi RR abd soft, (+) GT no edema Barb Lee MD Aug 25, 2019 10:19
--- NOTE | 2019-08-25 11:42 | NUR ---
CASE MANAGEMENT:REVIEW SI;LEFT MCA CVA. HEMIPLEGIA. APHASIA. HTN. T 97.2 HR 58 RR 20 BP 174/90 SpO2 96% 2L NC NO LABS AVAILABLE IS; ASA GT QD LONITEN GT Q4 HRS PRN SBP >160 NORVASC GT BID LISINOPRIL GT QD MED SURG STATUS DCP; PLACEMENT PENDING [facility]AN APPROVAL
[2019-08-25 12:00] VITALS: BP 149/75
--- NOTE | 2019-08-25 13:00 | NUR ---
NURSE NOTES: removed soft restraint on left wrist for 30mins trial. noticed patient was trying to pull out devices, g tube, gown, linens.tying to get out of bed. put the restraint back on left wrist for safety. skin intact. will continue to monitor.
--- NOTE | 2019-08-25 13:39 | Infectious Diseases Prog Note ---
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 Aphasia R hemiplegia Leukocytosis Pseudomonas UTI treated RECOMMENDATION: Observe off antibiotic f/u CBC in few days Subjective ROS Limited/Unobtainable: Yes Allergies: Coded Allergies: UNABLE TO ASSESS (Unverified , 06/18/19) Objective Vital Signs Last 24 Hour Vital Signs Date Time Temp Pulse Resp B/P (MAP) Pulse Ox O2 Delivery O2 Flow Rate FiO2 08/25/19 12:00 97.6 74 24 149/75 (99) 98 08/25/19 11:33 Nasal Cannula 2.0 08/25/19 09:38 174/90 08/25/19 08:00 97.6 87 24 174/90 (118) 100 08/25/19 04:00 97.2 58 20 146/73 (97) 100 08/25/19 00:00 97.8 82 20 146/72 (96) 96 08/24/19 21:00 Nasal Cannula 2.0 08/24/19 20:00 97.0 93 22 150/89 (109) 98 08/24/19 20:00 97 Nasal Cannula 2.0 28 08/24/19 16:06 97.4 67 18 135/67 (89) 98 Height (Feet): 5 Height (Inches): 8.00 Weight (Pounds): 156 General Appearance: no acute distress HEENT: mucous membranes moist Respiratory/Chest: lungs clear Cardiovascular: normal rate Abdomen: soft, non tender, other - GT feeding Extremities: no edema Neurologic/Psychiatric: aphasia Current Medications Medications (Trade) Dose Ordered Sig/Leonor Route PRN Reason Start Time Stop Time Status Last Admin Dose Admin Acetaminophen (Tylenol) 650 mg Q4H PRN NG Mild Pain/Temp > 100.5 07/28/19 18:20 08/27/19 18:19 Amlodipine Besylate (Norvasc) 5 mg Q12H PRN NG high blood pressure 08/20/19 16:15 09/19/19 08:29 08/21/19 17:06 Aspirin (ASA) 162 mg DAILY NG 08/17/19 10:00 09/16/19 09:59 08/25/19 09:36 Dextrose (Dextrose 50%) 25 ml Q30M PRN IV Hypoglycemia 08/08/19 11:45 09/07/19 11:44 Dextrose (Dextrose 50%) 50 ml Q30M PRN IV Hypoglycemia 08/08/19 11:45 09/07/19 11:44 Lisinopril (PriniviL) 20 mg DAILY NG 08/20/19 16:05 09/19/19 16:04 08/25/19 09:38 Loperamide HCl (Imodium) 2 mg Q6H PRN NG Diarrhea 07/28/19 18:20 08/27/19 18:19 Metformin HCl (Glucophage) 500 mg BID NG 08/17/19 10:00 09/16/19 09:59 08/25/19 09:35 Minoxidil (Loniten) 2.5 mg Q4H PRN NG bp over 160 syst 07/28/19 18:20 08/27/19 18:19 08/23/19 21:45 Bob Gilmore MD Aug 25, 2019 13:39
[2019-08-25 16:00] VITALS: BP 163/81
--- NOTE | 2019-08-25 19:30 | NUR ---
NURSE NOTES: Pt. received from JUSTINO Reyna. Pt awake at this time, nonverbal, no indications of pain and no signs of respiratory distress. IV left hand 24 g, asymptomatic, intact and patent, saline locked. Bilateral soft wrist restraints applied, movement intact, pulses palpable. Gtube feeding running, head of bed is elevated per protocol. Bed is low and locked, side rails x3 up, bed alarm active, and call light is in reach. Will continue to monitor.
--- NOTE | 2019-08-25 19:34 | Cardiology Progress Note ---
Assessment/Plan Assessment/Plan 1. Respiratory insufficiency. 2. Cerebrovascular accident. 3. Premature ventricular complexes. 4. Interstitial infiltrates. 5. Altered mentation. 6. CVA. 7. Hypernatremia. 8. Renal insufficiency. 9. NSVT 10. bradycaria possibly due to reglan norvasc for bp awaitn snf Subjective ROS Limited/Unobtainable: Yes Subjective altered mentation Objective Last 24 Hour Vital Signs Date Time Temp Pulse Resp B/P (MAP) Pulse Ox O2 Delivery O2 Flow Rate FiO2 08/25/19 16:00 97.8 77 22 163/81 (108) 98 08/25/19 12:00 97.6 74 24 149/75 (99) 98 08/25/19 11:33 Nasal Cannula 2.0 08/25/19 09:38 174/90 08/25/19 08:00 97.6 87 24 174/90 (118) 100 08/25/19 04:00 97.2 58 20 146/73 (97) 100 08/25/19 00:00 97.8 82 20 146/72 (96) 96 08/24/19 21:00 Nasal Cannula 2.0 08/24/19 20:00 97.0 93 22 150/89 (109) 98 08/24/19 20:00 97 Nasal Cannula 2.0 28 General Appearance: no apparent distress, agitated Intake and Output 08/24/19 08/25/19 19:00 07:00 Intake Total 1015 ml 980 ml Output Total 400 ml Balance 1015 ml 580 ml Free Water 300 ml 200 ml Tube Feeding 715 ml 780 ml Output Urine Total 400 ml # Bowel Movements 1 Chris Melgar MD Aug 25, 2019 19:34
[2019-08-25 20:00] VITALS: BP 156/85
[2019-08-26] VITALS: BP 165/77
--- NOTE | 2019-08-26 03:30 | Progress Note ---
DATE: 08/24/2019 SUBJECTIVE: This patient is somewhat agitated, awake, in isolation, not really verbally communicative. PHYSICAL EXAMINATION: GENERAL: Appears again as mentioned, but somewhat agitated. VITAL SIGNS: His blood pressure is in the 135/67 to 152/81 range, temperature is 97 to 98 degrees, and heart rate between 67 to 93. ASSESSMENT: 1. CVA. 2. Altered mentation. 3. Nonsustained ventricular tachycardia. 4. Renal insufficiency. PLAN: This patient appears to be relatively hemodynamically stable. Blood pressure has been elevated and Norvasc has been administered. The patient appears relatively unchanged. Chris Melgar M.D. DR: BA JOB#: [id number] CC:
[2019-08-26 04:00] VITALS: BP 134/72
[2019-08-26 06:45] LABS: BASOPHILS % (AUTO) 0.8 % (0.0-2.0); EOSINOPHILS % (AUTO) 1.2 % (0.0-3.0); HEMATOCRIT 39.2 % (42.0-52.0); HEMOGLOBIN 14.1 G/DL (14.2-18.0); MEAN CORPUSCULAR VOLUME 87 FL (80-99); MONOCYTES % (AUTO) 4.8 % (1.0-10.0); NEUTROPHILS % (AUTO) 69.3 % (45.0-75.0); PLATELET COUNT 275 K/UL (150-450); RED BLOOD COUNT 4.51 M/UL (4.70-6.10); RED CELL DISTRIBUTION WIDTH 11.6 % (11.6-14.8); WHITE BLOOD COUNT 12.6 K/UL (4.8-10.8)
--- NOTE | 2019-08-26 07:37 | NUR ---
HAND-OFF: Report given to JUSTINO Reyna.
--- NOTE | 2019-08-26 07:41 | NUR ---
NURSE NOTES: received report from JUSTINO Rodriguez. patient in bed. Non verbal. no respiratory distress noted on 2Lvia NC. no facial grimacing. IV on left hand saline lock intact. GT running vital 1.2 at 65/hr. no residual. GT site intact. no s/sx of complications noted. p200 mattress for skin management. bed in the lowest position and locked. call light within reach. alarm on. will continue to provide plan of care.
[2019-08-26 08:00] VITALS: BP 134/88
[2019-08-26] MEDS: Lisinopril 20mg tab NG SCH (09:06)
[2019-08-26] MEDS: Aspirin Baby 81mg NG SCH (09:06)
[2019-08-26] MEDS: metFORMIN 500mg tab NG SCH ×2 (09:06→17:05)
--- NOTE | 2019-08-26 11:45 | Infectious Diseases Prog Note ---
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 Aphasia R hemiplegia Leukocytosis Pseudomonas UTI treated Penile lesions, likely noninflammatory RECOMMENDATION: Observe off antibiotic f/u CBC in few days Subjective ROS Limited/Unobtainable: Yes Constitutional: Denies: fever Skin: Reports: other - PENILE LESIONS Allergies: Coded Allergies: UNABLE TO ASSESS (Unverified , 06/18/19) Objective Vital Signs Last 24 Hour Vital Signs Date Time Temp Pulse Resp B/P (MAP) Pulse Ox O2 Delivery O2 Flow Rate FiO2 08/26/19 09:06 134/88 08/26/19 09:00 Nasal Cannula 2.0 08/26/19 08:00 97.5 79 18 134/88 (103) 4 08/26/19 04:00 97.8 67 20 134/72 (92) 99 08/26/19 00:00 99.0 78 24 165/77 (106) 95 08/25/19 21:19 78 156/85 08/25/19 21:00 Nasal Cannula 2.0 08/25/19 20:00 97.7 77 24 156/85 (108) 95 08/25/19 20:00 94 Nasal Cannula 2.0 28 08/25/19 16:00 97.8 77 22 163/81 (108) 98 08/25/19 12:00 97.6 74 24 149/75 (99) 98 Height (Feet): 5 Height (Inches): 8.00 Weight (Pounds): 156 General Appearance: no acute distress HEENT: mucous membranes moist Respiratory/Chest: lungs clear Cardiovascular: normal rate Abdomen: soft, non tender Genitourinary: other - Penile subcutanous lesions, Extremities: no edema Neurologic/Psychiatric: aphasia Laboratory Tests Test 08/26/19 05:50 White Blood Count 12.6 K/UL (4.8-10.8) H Red Blood Count 4.51 M/UL (4.70-6.10) L Hemoglobin 14.1 G/DL (14.2-18.0) L Hematocrit 39.2 % (42.0-52.0) L Mean Corpuscular Volume 87 FL (80-99) Mean Corpuscular Hemoglobin 31.3 PG (27.0-31.0) H Mean Corpuscular Hemoglobin Concent 36.0 G/DL (32.0-36.0) Red Cell Distribution Width 11.6 % (11.6-14.8) Platelet Count 275 K/UL (150-450) Mean Platelet Volume 6.1 FL (6.5-10.1) L Neutrophils (%) (Auto) 69.3 % (45.0-75.0) Lymphocytes (%) (Auto) 24.0 % (20.0-45.0) Monocytes (%) (Auto) 4.8 % (1.0-10.0) Eosinophils (%) (Auto) 1.2 % (0.0-3.0) Basophils (%) (Auto) 0.8 % (0.0-2.0) Current Medications Medications (Trade) Dose Ordered Sig/Leonor Route PRN Reason Start Time Stop Time Status Last Admin Dose Admin Acetaminophen (Tylenol) 650 mg Q4H PRN NG Mild Pain/Temp > 100.5 07/28/19 18:20 08/27/19 18:19 Amlodipine Besylate (Norvasc) 5 mg Q12H PRN NG high blood pressure 08/20/19 16:15 09/19/19 08:29 08/25/19 21:19 Aspirin (ASA) 162 mg DAILY NG 08/17/19 10:00 09/16/19 09:59 08/26/19 09:06 Dextrose (Dextrose 50%) 25 ml Q30M PRN IV Hypoglycemia 08/08/19 11:45 09/07/19 11:44 Dextrose (Dextrose 50%) 50 ml Q30M PRN IV Hypoglycemia 08/08/19 11:45 09/07/19 11:44 Lisinopril (PriniviL) 20 mg DAILY NG 08/20/19 16:05 09/19/19 16:04 08/26/19 09:06 Loperamide HCl (Imodium) 2 mg Q6H PRN NG Diarrhea 07/28/19 18:20 08/27/19 18:19 Metformin HCl (Glucophage) 500 mg BID NG 08/17/19 10:00 09/16/19 09:59 08/26/19 09:06 Minoxidil (Loniten) 2.5 mg Q4H PRN NG bp over 160 syst 2/13/20 18:20 08/27/19 18:19 08/23/19 21:45 Bob Gilmore MD Aug 26, 2019 11:45
[2019-08-26 12:00] VITALS: BP 150/78
--- NOTE | 2019-08-26 12:00 | NUR ---
NURSE NOTES: Noticed abnormal round bumps on patient's penis. notified DR. Masoud. Gilmore. no new order at this time.
--- NOTE | 2019-08-26 12:10 | General Progress Note ---
Assessment/Plan Problem List: (1) Cellulitis of right hand ICD Codes: L03.113 - Cellulitis of right upper limb SNOMED: 62758713 (2) Altered level of consciousness ICD Codes: R40.4 - Transient alteration of awareness SNOMED: 3652252 (3) Sepsis ICD Codes: A41.9 - Sepsis, unspecified organism SNOMED: 93582253 Qualifiers: Qualified Codes: A41.9 - Sepsis, unspecified organism (4) Left middle cerebral artery stroke ICD Codes: I63.512 - Cerebral infarction due to unspecified occlusion or stenosis of left middle cerebral artery SNOMED: 982501980 (5) Left carotid artery occlusion ICD Codes: I65.22 - Occlusion and stenosis of left carotid artery SNOMED: 238893922158903 (6) Hypernatremia Assessment & Plan: better ICD Codes: E87.0 - Hyperosmolality and hypernatremia SNOMED: 579650415 (7) Hypokalemia Assessment & Plan: better ICD Codes: E87.6 - Hypokalemia SNOMED: 19608564 (8) DM (diabetes mellitus) Assessment & Plan: ok ICD Codes: E11.9 - Type 2 diabetes mellitus without complications SNOMED: 65743497 (9) ARF (acute renal failure) Assessment & Plan: ok ICD Codes: N17.9 - Acute kidney failure, unspecified SNOMED: 21730504 (10) Hypertension ICD Codes: I10 - Essential (primary) hypertension SNOMED: 21041603 (11) Aspiration pneumonia ICD Codes: J69.0 - Pneumonitis due to inhalation of food and vomit SNOMED: 193329935 (12) UTI (urinary tract infection) ICD Codes: N39.0 - Urinary tract infection, site not specified SNOMED: 64713500 Status: stable, unchanged Assessment/Plan: cont TF continue ASA cont Lisinopril to 20 mg bid continue Metformin Pt needs to go to SNF, because he is completely dependant on the care of others. Discussed with ID and caser shoe parts Subjective Allergies: Coded Allergies: UNABLE TO ASSESS (Unverified , 06/18/19) Subjective In NAD Objective Last 24 Hour Vital Signs Date Time Temp Pulse Resp B/P (MAP) Pulse Ox O2 Delivery O2 Flow Rate FiO2 08/26/19 09:06 134/88 08/26/19 09:00 Nasal Cannula 2.0 08/26/19 08:00 97.5 79 18 134/88 (103) 4 08/26/19 04:00 97.8 67 20 134/72 (92) 99 08/26/19 00:00 99.0 78 24 165/77 (106) 95 08/25/19 21:19 78 156/85 08/25/19 21:00 Nasal Cannula 2.0 08/25/19 20:00 97.7 77 24 156/85 (108) 95 08/25/19 20:00 94 Nasal Cannula 2.0 28 08/25/19 16:00 97.8 77 22 163/81 (108) 98 Intake and Output 08/25/19 08/26/19 19:00 07:00 Intake Total 850 ml Output Total 4 ml Balance 850 ml -4 ml Free Water 200 ml Tube Feeding 650 ml Output Urine Total 4 ml Laboratory Tests 08/26/19 05:50: White Blood Count 12.6H, Red Blood Count 4.51L, Hemoglobin 14.1L, Hematocrit 39.2L, Mean Corpuscular Volume 87, Mean Corpuscular Hemoglobin 31.3H, Mean Corpuscular Hemoglobin Concent 36.0, Red Cell Distribution Width 11.6, Platelet Count 275, Mean Platelet Volume 6.1L, Neutrophils (%) (Auto) 69.3, Lymphocytes ( %) (Auto) 24.0, Monocytes (%) (Auto) 4.8, Eosinophils (%) (Auto) 1.2, Basophils (%) (Auto) 0.8 Height (Feet): 5 Height (Inches): 8.00 Weight (Pounds): 156 Cardiovascular: normal rate Respiratory/Chest: lungs clear Edema: no edema noted Generalized Kaz Gilmore MD Aug 26, 2019 12:09
--- NOTE | 2019-08-26 13:01 | NUR ---
CASE MANAGEMENT: NOTE CM SPOKE TO (SARAHI FROM [employer])ABOUT INSURANCE UPDATE ALL CLINICALS HAVE BEEN REVIEWED PATIENT SHOULD HAVE A CASE WORKED ASSIGNED Thursday08/29/19
[2019-08-26 16:00] VITALS: BP 154/92
--- NOTE | 2019-08-26 16:45 | NUR ---
NURSE NOTES: received report from JUSTINO Sarmiento. patient in bed. Non verbal. response to tactile stimuli. no respiratory distress noted on 2Lvia NC. IV access on left hand saline lock patent and intact. GT running vital 1.2 at 65/hr. no gastric residual noted. GT site intact. tolerating tube feeding well. HOB elevated for aspiration precautions. p200 mattress for skin management. wound drsg dry and intact. bed in the lowest position and locked. call light within reach. will continue to provide plan of care.
--- NOTE | 2019-08-26 16:47 | NUR ---
HAND-OFF: Report given to ERIKA Navarrete.
--- NOTE | 2019-08-26 18:57 | NUR ---
HAND-OFF: Report given to Michael.
--- NOTE | 2019-08-26 19:11 | NUR ---
NURSE NOTES: Pt. received from ERIKA Navarrete. Pt awake at this time, nonverbal, no indications of pain and no signs of respiratory distress. IV left hand 24 g, asymptomatic, intact and patent, saline locked at this time. Left soft wrist restraint applied, movement intact, pulses palpable, capillary refill <3 seconds. Gtube feeding running, head of bed is elevated per protocol. Bed is low and locked, side rails x3 up, bed alarm active, and call light is in reach. Will continue to monitor.
[2019-08-26 20:00] VITALS: BP 144/79
--- NOTE | 2019-08-26 22:07 | General Progress Note ---
Assessment/Plan Status: stable, unchanged Assessment/Plan: Assessment - Acute CVA - AMS - Dysphagia - s/p GT - beto-arrhythmia Recommendations - IVF - monitor labs - elevate HOB - abx per ID - Off Reglan Subjective Allergies: Coded Allergies: UNABLE TO ASSESS (Unverified , 06/18/19) Subjective above noted NAD Confused tolerating TF Objective Last 24 Hour Vital Signs Date Time Temp Pulse Resp B/P (MAP) Pulse Ox O2 Delivery O2 Flow Rate FiO2 08/26/19 20:00 98.0 77 20 144/79 (100) 96 08/26/19 16:00 98.8 76 20 154/92 (112) 98 08/26/19 12:00 97.2 76 18 150/78 (102) 96 08/26/19 09:06 134/88 08/26/19 09:00 Nasal Cannula 2.0 08/26/19 08:00 97.5 79 18 134/88 (103) 4 08/26/19 04:00 97.8 67 20 134/72 (92) 99 08/26/19 00:00 99.0 78 24 165/77 (106) 95 Intake and Output 08/25/19 08/26/19 18:59 06:59 Intake Total 915 ml Output Total 4 ml Balance 915 ml -4 ml Free Water 200 ml Tube Feeding 715 ml Output Urine Total 4 ml Laboratory Tests 08/26/19 05:50: White Blood Count 12.6H, Red Blood Count 4.51L, Hemoglobin 14.1L, Hematocrit 39.2L, Mean Corpuscular Volume 87, Mean Corpuscular Hemoglobin 31.3H, Mean Corpuscular Hemoglobin Concent 36.0, Red Cell Distribution Width 11.6, Platelet Count 275, Mean Platelet Volume 6.1L, Neutrophils (%) (Auto) 69.3, Lymphocytes ( %) (Auto) 24.0, Monocytes (%) (Auto) 4.8, Eosinophils (%) (Auto) 1.2, Basophils (%) (Auto) 0.8 Height (Feet): 5 Height (Inches): 8.00 Weight (Pounds): 156 Objective Elderly man awake, looks at NCAT supple Coarse ronchi RR abd soft, (+) GT no edema Barb Lee MD Aug 26, 2019 22:07
[2019-08-27] VITALS: BP 141/82
[2019-08-27 04:00] VITALS: BP 139/80
--- NOTE | 2019-08-27 07:55 | NUR ---
HAND-OFF: Report given to JUSTINO Tello.
[2019-08-27 08:00] VITALS: BP 136/82
[2019-08-27] MEDS: metFORMIN 500mg tab NG SCH ×2 (09:31→17:20)
[2019-08-27] MEDS: Aspirin Baby 81mg NG SCH (09:31)
[2019-08-27] MEDS: Lisinopril 20mg tab NG SCH (09:31)
--- NOTE | 2019-08-27 11:29 | NUR ---
NURSE NOTES: Patient seen on rounds, lying in bed HOB at 45degrees. AxOx1, non-verbal. Not in distress. No outward sx of pain. Left wrist soft restraints intact. IV on left hand patent and flushed. Gtube flushed and intact. Bed in lowest position, alarms on zone 1, visual checks done. Will continue to monitor.
[2019-08-27 12:00] VITALS: BP 140/79
--- NOTE | 2019-08-27 14:38 | NUR ---
NURSE NOTES: Patient still noted with episode of trying to pull out Gtube; is non-verbal and unable to comprehend instructions/education. Received orders to renew restraint from Dr. Gilmore. Orders noted and carried out.
--- NOTE | 2019-08-27 14:45 | General Progress Note ---
Assessment/Plan Problem List: (1) Cellulitis of right hand ICD Codes: L03.113 - Cellulitis of right upper limb SNOMED: 79774995 (2) Altered level of consciousness ICD Codes: R40.4 - Transient alteration of awareness SNOMED: 6393739 (3) Sepsis ICD Codes: A41.9 - Sepsis, unspecified organism SNOMED: 93558746 Qualifiers: Qualified Codes: A41.9 - Sepsis, unspecified organism (4) Left middle cerebral artery stroke ICD Codes: I63.512 - Cerebral infarction due to unspecified occlusion or stenosis of left middle cerebral artery SNOMED: 200042710 (5) Left carotid artery occlusion ICD Codes: I65.22 - Occlusion and stenosis of left carotid artery SNOMED: 910183512663723 (6) Hypernatremia Assessment & Plan: better ICD Codes: E87.0 - Hyperosmolality and hypernatremia SNOMED: 606472050 (7) Hypokalemia Assessment & Plan: better ICD Codes: E87.6 - Hypokalemia SNOMED: 44339371 (8) DM (diabetes mellitus) Assessment & Plan: ok ICD Codes: E11.9 - Type 2 diabetes mellitus without complications SNOMED: 12213247 (9) ARF (acute renal failure) Assessment & Plan: ok ICD Codes: N17.9 - Acute kidney failure, unspecified SNOMED: 61022618 (10) Hypertension ICD Codes: I10 - Essential (primary) hypertension SNOMED: 68245716 (11) Aspiration pneumonia ICD Codes: J69.0 - Pneumonitis due to inhalation of food and vomit SNOMED: 799553460 (12) UTI (urinary tract infection) ICD Codes: N39.0 - Urinary tract infection, site not specified SNOMED: 26041040 Status: stable, unchanged Assessment/Plan: cont TF continue ASA cont Lisinopril to 20 mg bid continue Metformin Pt needs to go to SNF, because he is completely dependant on the care of others. Discussed with ID and welfare case worker Subjective Allergies: Coded Allergies: UNABLE TO ASSESS (Unverified , 06/18/19) Subjective In NAD Objective Last 24 Hour Vital Signs Date Time Temp Pulse Resp B/P (MAP) Pulse Ox O2 Delivery O2 Flow Rate FiO2 08/27/19 12:00 98.3 92 19 140/79 (99) 98 08/27/19 09:31 136/82 08/27/19 09:00 Room Air 08/27/19 08:00 98.4 95 20 136/82 (100) 97 08/27/19 04:00 98.8 88 20 139/80 (99) 95 08/27/19 00:00 98.9 83 20 141/82 (101) 95 08/26/19 21:00 Nasal Cannula 2.0 08/26/19 20:00 98.0 77 20 144/79 (100) 96 08/26/19 16:00 98.8 76 20 154/92 (112) 98 Intake and Output 08/26/19 08/27/19 19:00 07:00 Intake Total 1175 ml 885 ml Balance 1175 ml 885 ml Free Water 330 ml 300 ml Tube Feeding 845 ml 585 ml # Voids 5 5 # Bowel Movements 3 1 Height (Feet): 5 Height (Inches): 8.00 Weight (Pounds): 156 Cardiovascular: normal rate Respiratory/Chest: lungs clear Kaz Gilmore MD Aug 27, 2019 14:45
[2019-08-27 16:00] VITALS: BP_SYST 158; BP_SYST 166; BP_DIAS 86; BP_DIAS 89
--- NOTE | 2019-08-27 18:09 | General Progress Note ---
Assessment/Plan Status: stable, unchanged Assessment/Plan: Assessment - Acute CVA - AMS - Dysphagia - s/p GT - beto-arrhythmia Recommendations - IVF - monitor labs - elevate HOB - abx per ID - Off Reglan Subjective Allergies: Coded Allergies: UNABLE TO ASSESS (Unverified , 06/18/19) Subjective above noted NAD Confused tolerating TF Objective Last 24 Hour Vital Signs Date Time Temp Pulse Resp B/P (MAP) Pulse Ox O2 Delivery O2 Flow Rate FiO2 08/27/19 17:20 69 158/86 08/27/19 16:00 98.3 69 18 158/86 (110) 97 08/27/19 12:00 98.3 92 19 140/79 (99) 98 08/27/19 09:31 136/82 08/27/19 09:00 Room Air 08/27/19 08:00 98.4 95 20 136/82 (100) 97 08/27/19 04:00 98.8 88 20 139/80 (99) 95 08/27/19 00:00 98.9 83 20 141/82 (101) 95 08/26/19 21:00 Nasal Cannula 2.0 08/26/19 20:00 98.0 77 20 144/79 (100) 96 Intake and Output 08/26/19 08/27/19 19:00 07:00 Intake Total 1175 ml 885 ml Balance 1175 ml 885 ml Free Water 330 ml 300 ml Tube Feeding 845 ml 585 ml # Voids 5 5 # Bowel Movements 3 1 Height (Feet): 5 Height (Inches): 8.00 Weight (Pounds): 156 Objective Elderly man awake, looks at NCAT supple Coarse ronchi RR abd soft, (+) GT no edema Barb Lee MD Aug 27, 2019 18:09
--- NOTE | 2019-08-27 19:06 | NUR ---
HAND-OFF: Report given to Michael Rawls RN. Endorsed that patient is a high fall risk. Bed on lowest position. Bed alarms set at zone 1. Side rails up x 3. Advised frequent visual checks. Endorsed to notify succeeding shifts that patient is high fall risk.
--- NOTE | 2019-08-27 19:12 | NUR ---
NURSE NOTES: Pt. received from JUSTINO Romeo. Pt. asleep at this time, breathing is even and unlabored, no indications of pain. IV left hand 24g noted; saline locked. Gtube feeding running, head of bed is elevated. Soft wrist restraint left, pulses palpable, no swelling noted. Bed is low and locked, side rails x3 up, bed alarm active, and call light is in reach. Will continue fall risk precautions and continue to monitor.
[2019-08-27 20:00] VITALS: BP 162/92
[2019-08-28] VITALS (7 sets, daily range): BP systolic 136–166; BP diastolic 75–99
--- NOTE | 2019-08-28 07:20 | NUR ---
HAND-OFF: Report given to Miriam RN.
[2019-08-28] MEDS: Lisinopril 20mg tab NG SCH (09:37)
[2019-08-28] MEDS: Aspirin Baby 81mg NG SCH (09:37)
[2019-08-28] MEDS: metFORMIN 500mg tab NG SCH ×2 (09:37→17:16)
--- NOTE | 2019-08-28 10:27 | NUR ---
NURSE NOTES: Patient seen on rounds lying in bed, HOB at 45 degrees, AxOx1, non-verbal. Not in distress, no outward sx of pain. No IV line, will reattempt insertion. Gtube patient and intact. Left soft wrist restraint in place. No new skin issues. Patient is high fall risk, bed in lowest position and locked in place, side rails up x 3, alarms set at zone 1. Frequent visual checks done. Will continue to monitor.
--- NOTE | 2019-08-28 13:28 | Infectious Diseases Prog Note ---
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 Aphasia R hemiplegia Leukocytosis Pseudomonas UTI treated Penile lesions, likely noninflammatory Deep tissue injury RECOMMENDATION: Observe off antibiotic f/u CBC in few days Subjective ROS Limited/Unobtainable: Yes Neurologic: Reports: confusion, other - on restraint Allergies: Coded Allergies: UNABLE TO ASSESS (Unverified , 06/18/19) Objective Vital Signs Last 24 Hour Vital Signs Date Time Temp Pulse Resp B/P (MAP) Pulse Ox O2 Delivery O2 Flow Rate FiO2 08/28/19 13:20 72 158/93 08/28/19 12:00 98.4 72 18 158/93 (114) 99 08/28/19 09:37 136/85 08/28/19 09:00 Nasal Cannula 2.0 08/28/19 08:00 98.7 93 18 136/85 (102) 97 08/28/19 04:00 98.5 90 18 139/99 (112) 96 08/28/19 00:00 98.1 81 18 159/93 (115) 99 08/27/19 21:00 Nasal Cannula 2.0 08/27/19 20:00 97.4 79 18 162/92 (115) 96 08/27/19 17:20 69 158/86 08/27/19 16:00 98.3 69 18 158/86 (110) 97 Height (Feet): 5 Height (Inches): 8.00 Weight (Pounds): 156 General Appearance: no acute distress HEENT: mucous membranes moist Respiratory/Chest: lungs clear Cardiovascular: normal rate Skin: other - deep tissue injury in sacral area Current Medications Medications (Trade) Dose Ordered Sig/Leonor Route PRN Reason Start Time Stop Time Status Last Admin Dose Admin Amlodipine Besylate (Norvasc) 5 mg Q12H PRN NG high blood pressure 08/20/19 16:15 09/19/19 08:29 08/28/19 13:20 Aspirin (ASA) 162 mg DAILY NG 08/17/19 10:00 09/16/19 09:59 08/28/19 09:37 Dextrose (Dextrose 50%) 25 ml Q30M PRN IV Hypoglycemia 08/08/19 11:45 09/07/19 11:44 Dextrose (Dextrose 50%) 50 ml Q30M PRN IV Hypoglycemia 08/08/19 11:45 09/07/19 11:44 Lisinopril (PriniviL) 20 mg DAILY NG 08/20/19 16:05 09/19/19 16:04 08/28/19 09:37 Metformin HCl (Glucophage) 500 mg BID NG 08/17/19 10:00 09/16/19 09:59 08/28/19 09:37 Bob Gilmore MD Aug 28, 2019 13:28
[2019-08-28] MEDS ORDERED: Acetaminophen 650mg/20.3ml NG PRN (13:45)
--- NOTE | 2019-08-28 13:47 | General Progress Note ---
Assessment/Plan Problem List: (1) Cellulitis of right hand ICD Codes: L03.113 - Cellulitis of right upper limb SNOMED: 83009705 (2) Altered level of consciousness ICD Codes: R40.4 - Transient alteration of awareness SNOMED: 3664158 (3) Sepsis ICD Codes: A41.9 - Sepsis, unspecified organism SNOMED: 98903064 Qualifiers: Qualified Codes: A41.9 - Sepsis, unspecified organism (4) Left middle cerebral artery stroke ICD Codes: I63.512 - Cerebral infarction due to unspecified occlusion or stenosis of left middle cerebral artery SNOMED: 423679454 (5) Left carotid artery occlusion ICD Codes: I65.22 - Occlusion and stenosis of left carotid artery SNOMED: 588773562251719 (6) Hypernatremia Assessment & Plan: better ICD Codes: E87.0 - Hyperosmolality and hypernatremia SNOMED: 372728006 (7) Hypokalemia Assessment & Plan: better ICD Codes: E87.6 - Hypokalemia SNOMED: 68844391 (8) DM (diabetes mellitus) Assessment & Plan: ok ICD Codes: E11.9 - Type 2 diabetes mellitus without complications SNOMED: 78307271 (9) ARF (acute renal failure) Assessment & Plan: ok ICD Codes: N17.9 - Acute kidney failure, unspecified SNOMED: 18265736 (10) Hypertension ICD Codes: I10 - Essential (primary) hypertension SNOMED: 99667933 (11) Aspiration pneumonia ICD Codes: J69.0 - Pneumonitis due to inhalation of food and vomit SNOMED: 392160549 (12) UTI (urinary tract infection) ICD Codes: N39.0 - Urinary tract infection, site not specified SNOMED: 47331521 Status: stable, unchanged Assessment/Plan: resume Minoxidilcont TF continue ASA cont Lisinopril to 20 mg bid continue Metformin Pt needs to go to SNF, because he is completely dependant on the care of others. Discussed with RN Subjective Allergies: Coded Allergies: UNABLE TO ASSESS (Unverified , 06/18/19) Subjective In NAD Objective Last 24 Hour Vital Signs Date Time Temp Pulse Resp B/P (MAP) Pulse Ox O2 Delivery O2 Flow Rate FiO2 08/28/19 12:00 98.4 72 18 158/93 (114) 99 08/28/19 09:37 136/85 08/28/19 09:00 Nasal Cannula 2.0 08/28/19 08:00 98.7 93 18 136/85 (102) 97 08/28/19 04:00 98.5 90 18 139/99 (112) 96 08/28/19 00:00 98.1 81 18 159/93 (115) 99 08/27/19 21:00 Nasal Cannula 2.0 08/27/19 20:00 97.4 79 18 162/92 (115) 96 08/27/19 17:20 69 158/86 08/27/19 16:00 98.3 69 18 158/86 (110) 97 Intake and Output 08/27/19 08/28/19 19:00 07:00 Intake Total 1080 ml 1015 ml Balance 1080 ml 1015 ml Free Water 300 ml 300 ml Tube Feeding 780 ml 715 ml # Voids 2 1 # Bowel Movements 2 1 Height (Feet): 5 Height (Inches): 8.00 Weight (Pounds): 156 Cardiovascular: normal rate Respiratory/Chest: lungs clear Kaz Gilmore MD Aug 28, 2019 13:47
[2019-08-28] MEDS: Minoxidil 2.5mg tab ORAL PRN (13:52)
--- NOTE | 2019-08-28 13:57 | NUR ---
Vitals at 1200H, BP elevated 166/96. MD Dr. Aysha Gilmore notified with orders to resume Minoxidil 2.5mg tab PRN q4hrs for SBP>160. Orders noted and carried out.
--- NOTE | 2019-08-28 18:48 | General Progress Note ---
Assessment/Plan Status: stable, unchanged Assessment/Plan: Assessment - Acute CVA - AMS - Dysphagia - s/p GT - beto-arrhythmia Recommendations - IVF - monitor labs - elevate HOB - abx per ID - Off Reglan Subjective Allergies: Coded Allergies: UNABLE TO ASSESS (Unverified , 06/18/19) Subjective above noted NAD Confused tolerating TF Objective Last 24 Hour Vital Signs Date Time Temp Pulse Resp B/P (MAP) Pulse Ox O2 Delivery O2 Flow Rate FiO2 08/28/19 16:00 98.4 82 18 148/98 (115) 99 08/28/19 14:43 148/90 (109) 08/28/19 13:52 166/96 08/28/19 12:00 98.4 72 18 166/96 (119) 99 08/28/19 09:37 136/85 08/28/19 09:00 Nasal Cannula 2.0 08/28/19 08:00 98.7 93 18 136/85 (102) 97 08/28/19 04:00 98.5 90 18 139/99 (112) 96 08/28/19 00:00 98.1 81 18 159/93 (115) 99 08/27/19 21:00 Nasal Cannula 2.0 08/27/19 20:00 97.4 79 18 162/92 (115) 96 Intake and Output 08/27/19 08/28/19 19:00 07:00 Intake Total 1080 ml 1080 ml Balance 1080 ml 1080 ml Free Water 300 ml 300 ml Tube Feeding 780 ml 780 ml # Voids 2 1 # Bowel Movements 2 1 Height (Feet): 5 Height (Inches): 8.00 Weight (Pounds): 156 Objective Elderly man awake, looks at NCAT supple Coarse ronchi RR abd soft, (+) GT no edema Barb Lee MD Aug 28, 2019 18:48
--- NOTE | 2019-08-28 19:19 | NUR ---
HAND-OFF: Report given to Kita BADILLO. Endorsed that patient is a high fall risk. Bed in lowest position and locked in place. Advised frequent visual checks. Siderails up x 3, bed alarms set on zone 1. Endorsed to let succeeding shift RN know that patient is a high fall risk.
--- NOTE | 2019-08-28 19:20 | NUR ---
NURSE NOTES: Received patient asleep, left soft wrist restraints on, tolerating his g-tube feeding well.
[2019-08-29 00:04] VITALS: BP 151/73
[2019-08-29 04:31] VITALS: BP 149/92
--- NOTE | 2019-08-29 07:26 | NUR ---
HAND-OFF: Report given to Marline Keller RN.
--- NOTE | 2019-08-29 07:37 | NUR ---
NURSE NOTES: Received patient in bed asleep. No SOB or acute distress. With left soft wrist restraint in place, pulse palpable, no skin issues on site. IV line intact. GT intact, feeding ongoing. HOB elevated. Bed locked in lowest position. Call light within reach. Will continue plan of care.
[2019-08-29 08:00] VITALS: BP 179/107
[2019-08-29] MEDS: Aspirin Baby 81mg NG SCH (08:33)
[2019-08-29] MEDS: metFORMIN 500mg tab NG SCH ×2 (08:33→18:09)
[2019-08-29] MEDS: Minoxidil 2.5mg tab ORAL PRN (08:34)
[2019-08-29] MEDS: Lisinopril 20mg tab NG SCH (08:34)
--- NOTE | 2019-08-29 10:29 | NUR ---
RD ASSESSMENT & RECOMMENDATIONS SEE CARE ACTIVITY FOR COMPLETE ASSESSMENT DAILY ESTIMATED NEEDS: Needs based on sepsis and wound/ 72kg adj 25-30 kcals/kg 6178-8464 total kcals 1.25-2 g protein/kg 90-144 g total protein 25-30 mL/kg 8056-4694 total fluid mLs NUTRITION DIAGNOSIS: * Swallowing difficulty R/T dysphagia, s/p new and old CVA as evidenced by NPO per [employer] rec, has been on NGT feeds, s/p PEG placement, on GT feeds. * Altered nutrition related lab values r/t sepsis, DM, volume deficit as evidenced by elev WBC (12.1), elev POC glu (101-122 now improved) w/ A1C 6.9, elev Na (153-> wnl ->152->wnl), elev BUN (78-> 30), elev creat(1.6, now wnl). CURRENT TF:Vital 1.2 @ 65ml x24 hrs ENTERAL NUTRITION RECOMMENDATIONS: VITAL 1.2 @ 65ml/hr x 24 hrs to provide 1560ml, 1872kcal, 117g prot, 1265ml free water - Maintain at goal and monitor tolerance. - HOB over 30 degrees - H20 flush of 150ml q 4 hrs ADDITIONAL RECOMMENDATIONS: 1) REC TO RECALIBRATE BED - w/ added p200 mattress + SCDs 2) Monitor hydration status and renal fxn: creat now wnl, BUN still elev -> rec f/up BMP (last done 08/14) 3) WOUND HEALING: add Vit C 250mg QD Continue Osbaldo 1pkt BID (mix w/ 4oz water, give via PEG) 4) Monitor lytes, replete as needed: rec check updated lytes .
--- NOTE | 2019-08-29 11:45 | Infectious Diseases Prog Note ---
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 Aphasia R hemiplegia Leukocytosis Pseudomonas UTI treated Penile lesions, likely noninflammatory Deep tissue injury RECOMMENDATION: Observe off antibiotic f/u CBC in few days Subjective ROS Limited/Unobtainable: Yes Neurologic: Reports: confusion Allergies: Coded Allergies: UNABLE TO ASSESS (Unverified , 06/18/19) Objective Vital Signs Last 24 Hour Vital Signs Date Time Temp Pulse Resp B/P (MAP) Pulse Ox O2 Delivery O2 Flow Rate FiO2 08/29/19 08:34 179/107 08/29/19 08:34 179/107 08/29/19 08:00 98.8 87 20 179/107 (131) 98 08/29/19 04:31 98.1 69 18 149/92 (111) 96 08/29/19 00:04 97.4 65 16 151/73 (99) 94 08/28/19 20:36 97.6 72 15 154/75 (101) 96 08/28/19 20:23 Nasal Cannula 2.0 08/28/19 16:00 98.4 82 18 148/98 (115) 99 08/28/19 14:43 148/90 (109) 08/28/19 13:52 166/96 08/28/19 12:00 98.4 72 18 166/96 (119) 99 Height (Feet): 5 Height (Inches): 8.00 Weight (Pounds): 156 General Appearance: no acute distress HEENT: mucous membranes moist Respiratory/Chest: lungs clear Cardiovascular: normal rate Abdomen: soft, non tender, other - GT feeding Neurologic/Psychiatric: aphasia, other - R heiplegia Current Medications Medications (Trade) Dose Ordered Sig/Leonor Route PRN Reason Start Time Stop Time Status Last Admin Dose Admin Acetaminophen (Tylenol) 650 mg Q4H PRN NG Mild Pain/Temp > 100.5 08/28/19 13:45 09/27/19 13:44 Amlodipine Besylate (Norvasc) 5 mg Q12H PRN NG high blood pressure 08/20/19 16:15 09/19/19 08:29 08/27/19 17:20 Aspirin (ASA) 162 mg DAILY NG 08/17/19 10:00 09/16/19 09:59 08/29/19 08:33 Dextrose (Dextrose 50%) 25 ml Q30M PRN IV Hypoglycemia 08/08/19 11:45 09/07/19 11:44 Dextrose (Dextrose 50%) 50 ml Q30M PRN IV Hypoglycemia 08/08/19 11:45 09/07/19 11:44 Lisinopril (PriniviL) 20 mg DAILY NG 08/20/19 16:05 09/19/19 16:04 08/29/19 08:34 Loperamide HCl (Imodium) 2 mg Q6H PRN NG Diarrhea 08/28/19 13:45 09/27/19 13:44 Metformin HCl (Glucophage) 500 mg BID NG 08/17/19 10:00 09/16/19 09:59 08/29/19 08:33 Minoxidil (Loniten) 2.5 mg Q4H PRN ORAL For SBP>160 08/28/19 13:30 09/27/19 13:29 08/29/19 08:34 Bob Gilmore MD Aug 29, 2019 11:45
[2019-08-29 12:00] VITALS: BP 184/87
--- NOTE | 2019-08-29 12:56 | NUR ---
DISCHARGE PLANNING PATIENT HAS BEEN REFERRED TO [facility] P: [phone] F: [phone] Addendum: 08/29/19 at 1522 by LISA OCONNOR LVN LVN PER [facility] AT [facility]. STATES NO MALE BEDS AT THIS TIME.
--- NOTE | 2019-08-29 14:46 | General Progress Note ---
Assessment/Plan Problem List: (1) Cellulitis of right hand ICD Codes: L03.113 - Cellulitis of right upper limb SNOMED: 30482301 (2) Altered level of consciousness ICD Codes: R40.4 - Transient alteration of awareness SNOMED: 4827968 (3) Sepsis ICD Codes: A41.9 - Sepsis, unspecified organism SNOMED: 65623801 Qualifiers: Qualified Codes: A41.9 - Sepsis, unspecified organism (4) Left middle cerebral artery stroke ICD Codes: I63.512 - Cerebral infarction due to unspecified occlusion or stenosis of left middle cerebral artery SNOMED: 788646046 (5) Left carotid artery occlusion ICD Codes: I65.22 - Occlusion and stenosis of left carotid artery SNOMED: 255783055831521 (6) Hypernatremia Assessment & Plan: better ICD Codes: E87.0 - Hyperosmolality and hypernatremia SNOMED: 041364664 (7) Hypokalemia Assessment & Plan: better ICD Codes: E87.6 - Hypokalemia SNOMED: 95682552 (8) DM (diabetes mellitus) Assessment & Plan: ok ICD Codes: E11.9 - Type 2 diabetes mellitus without complications SNOMED: 34964385 (9) ARF (acute renal failure) Assessment & Plan: ok ICD Codes: N17.9 - Acute kidney failure, unspecified SNOMED: 11313476 (10) Hypertension ICD Codes: I10 - Essential (primary) hypertension SNOMED: 65098887 (11) Aspiration pneumonia ICD Codes: J69.0 - Pneumonitis due to inhalation of food and vomit SNOMED: 357995360 (12) UTI (urinary tract infection) ICD Codes: N39.0 - Urinary tract infection, site not specified SNOMED: 18571981 Status: stable, unchanged Assessment/Plan: cont Minoxidil cont TF continue ASA cont Lisinopril to 20 mg bid continue Metformin Pt needs to go to SNF, because he is completely dependant on the care of others. Subjective Allergies: Coded Allergies: UNABLE TO ASSESS (Unverified , 06/18/19) Subjective In NAD Objective Last 24 Hour Vital Signs Date Time Temp Pulse Resp B/P (MAP) Pulse Ox O2 Delivery O2 Flow Rate FiO2 08/29/19 12:00 98.9 73 20 184/87 (119) 97 08/29/19 08:34 179/107 3/16/20 08:34 179/107 08/29/19 08:00 98.8 87 20 179/107 (131) 98 08/29/19 04:31 98.1 69 18 149/92 (111) 96 08/29/19 00:04 97.4 65 16 151/73 (99) 94 08/28/19 20:36 97.6 72 15 154/75 (101) 96 08/28/19 20:23 Nasal Cannula 2.0 08/28/19 16:00 98.4 82 18 148/98 (115) 99 Intake and Output 08/28/19 08/29/19 19:00 07:00 Intake Total 1080 ml 1015 ml Balance 1080 ml 1015 ml Free Water 300 ml 300 ml Tube Feeding 780 ml 715 ml # Voids 2 # Bowel Movements 1 1 Height (Feet): 5 Height (Inches): 8.00 Weight (Pounds): 156 Cardiovascular: normal rate Respiratory/Chest: lungs clear Kaz Gilmore MD Aug 29, 2019 14:46
[2019-08-29 16:00] VITALS: BP 190/85
--- NOTE | 2019-08-29 19:30 | NUR ---
NURSE NOTES: Received patient in bed. On room air, respirations unlabored. Patient is non-verbal, no signs of pain noted at this time. Patient is sitting in semi-fowlers. GT patent and feeding running well. IV site in the Left hand noted with no redness or swelling. Soft wrist restraints to the left hand, hand is warm to the touch and normal color for ethnicity. Bed at the lowest position, bed locked, bed alarm on, call light within reach.
--- NOTE | 2019-08-29 19:59 | NUR ---
HAND-OFF: Report given to
[2019-08-29 20:00] VITALS: BP 148/78
--- NOTE | 2019-08-29 22:33 | General Progress Note ---
Assessment/Plan Status: stable, unchanged Assessment/Plan: Assessment - Acute CVA - AMS - Dysphagia - s/p GT - beto-arrhythmia Recommendations - IVF - monitor labs - elevate HOB - abx per ID - Off Reglan Subjective Allergies: Coded Allergies: UNABLE TO ASSESS (Unverified , 06/18/19) Subjective above noted NAD Confused tolerating TF Objective Last 24 Hour Vital Signs Date Time Temp Pulse Resp B/P (MAP) Pulse Ox O2 Delivery O2 Flow Rate FiO2 08/29/19 16:00 98.2 74 20 190/85 (120) 97 08/29/19 12:00 98.9 73 20 184/87 (119) 97 08/29/19 09:00 Nasal Cannula 2.0 08/29/19 08:34 179/107 08/29/19 08:34 179/107 08/29/19 08:00 98.8 87 20 179/107 (131) 98 08/29/19 04:31 98.1 69 18 149/92 (111) 96 08/29/19 00:04 97.4 65 16 151/73 (99) 94 Intake and Output 08/28/19 08/29/19 19:00 07:00 Intake Total 1080 ml 1015 ml Balance 1080 ml 1015 ml Free Water 300 ml 300 ml Tube Feeding 780 ml 715 ml # Voids 2 # Bowel Movements 1 1 Height (Feet): 5 Height (Inches): 8.00 Weight (Pounds): 156 Objective Elderly man awake, looks at NCAT supple Coarse ronchi RR abd soft, (+) GT no edema Barb Lee MD Aug 29, 2019 22:33
[2019-08-30] VITALS: BP 154/82
[2019-08-30 04:00] VITALS: BP 122/86
--- NOTE | 2019-08-30 07:23 | NUR ---
HAND-OFF: Report given to Marline BADILLO.
--- NOTE | 2019-08-30 07:24 | NUR ---
NURSE NOTES: Received patient asleep. No SOB or acute distress. IV line intact and patent. Left soft wrist restraint on, pulses palpable, no skin issues noted on site. Gtube intact, feeding ongoing. HOB elevated. Bed locked in lowest position. Call light within reach. Will continue plan of care.
[2019-08-30 08:00] VITALS: BP 169/96
[2019-08-30] MEDS: Aspirin Baby 81mg NG SCH (09:21)
[2019-08-30] MEDS: metFORMIN 500mg tab NG SCH ×2 (09:21→17:35)
[2019-08-30] MEDS: Lisinopril 20mg tab NG SCH (09:21)
[2019-08-30 09:22] LABS: BASOPHILS % (AUTO) 0.9 % (0.0-2.0); EOSINOPHILS % (AUTO) 1.9 % (0.0-3.0); HEMATOCRIT 41.3 % (42.0-52.0); HEMOGLOBIN 15.1 G/DL (14.2-18.0); LYMPHOCYTES % (AUTO) 24.3 % (20.0-45.0); MEAN CORPUSCULAR VOLUME 86 FL (80-99); MONOCYTES % (AUTO) 5.3 % (1.0-10.0); NEUTROPHILS % (AUTO) 67.6 % (45.0-75.0); PLATELET COUNT 308 K/UL (150-450); RED BLOOD COUNT 4.78 M/UL (4.70-6.10); RED CELL DISTRIBUTION WIDTH 11.5 % (11.6-14.8); WHITE BLOOD COUNT 14.7 K/UL (4.8-10.8)
[2019-08-30] MEDS: Minoxidil 2.5mg tab ORAL PRN (09:23)
--- NOTE | 2019-08-30 10:25 | NUR ---
NURSE NOTES: Patient's IV access dislodged. Dr Gilmore made aware, awaiting callback.
--- NOTE | 2019-08-30 10:39 | NUR ---
NURSE NOTES: Spoke to Dr Aysha Gilmore regarding patient not having IV access. Dr Maame Gilmore said ok to DC IV.
--- NOTE | 2019-08-30 11:11 | NUR ---
CASE MANAGEMENT:REVIEW 08/29/2019 SI;LEFT MCA CVA. HEMIPLEGIA. APHASIA. HTN. T 98.9 HR 87 RR 15 BP 179/107 SpO2 94% 2L NC NO LABS AVAILABLE IS; ASA GT QD LONITEN GT Q4 HRS PRN SBP >160 NORVASC GT BID LISINOPRIL GT QD MED SURG STATUS DCP; SNF PLACEMENT CASE MANAGEMENT:REVIEW 08/30/2019 SI;LEFT MCA CVA. HEMIPLEGIA. APHASIA. HTN. 98.0 82 20 169/96 95% ON RA WBC 14.7 IS; ASA GT QD LONITEN GT Q4 HRS PRN SBP >160 NORVASC GT BID LISINOPRIL GT QD MED SURG STATUS DCP; PLACEMENT
--- NOTE | 2019-08-30 11:13 | Infectious Diseases Prog Note ---
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 Aphasia R hemiplegia Leukocytosis worsening Pseudomonas UTI treated Penile lesions, likely noninflammatory Deep tissue injury RECOMMENDATION: Observe off antibiotic f/u CBC CXR, UA & Urine culture Subjective ROS Limited/Unobtainable: Yes Neurologic: Reports: confusion, other - on restraint Allergies: Coded Allergies: UNABLE TO ASSESS (Unverified , 06/18/19) Objective Vital Signs Last 24 Hour Vital Signs Date Time Temp Pulse Resp B/P (MAP) Pulse Ox O2 Delivery O2 Flow Rate FiO2 08/30/19 09:23 169/96 08/30/19 09:21 169/96 08/30/19 09:00 Room Air 08/30/19 08:00 97.0 82 20 169/96 (120) 96 08/30/19 04:00 97.9 66 17 122/86 (98) 95 08/30/19 00:00 98.0 74 16 154/82 (106) 98 08/29/19 21:00 Room Air 08/29/19 20:04 97 Nasal Cannula 2.0 28 08/29/19 20:00 97.6 80 16 148/78 (101) 97 08/29/19 16:00 98.2 74 20 190/85 (120) 97 08/29/19 12:00 98.9 73 20 184/87 (119) 97 Height (Feet): 5 Height (Inches): 8.00 Weight (Pounds): 156 General Appearance: no acute distress HEENT: mucous membranes moist Respiratory/Chest: lungs clear Cardiovascular: normal rate Abdomen: soft, non tender Extremities: no edema Neurologic/Psychiatric: aphasia Laboratory Tests Test 08/30/19 08:45 White Blood Count 14.7 K/UL (4.8-10.8) H Red Blood Count 4.78 M/UL (4.70-6.10) Hemoglobin 15.1 G/DL (14.2-18.0) Hematocrit 41.3 % (42.0-52.0) L Mean Corpuscular Volume 86 FL (80-99) Mean Corpuscular Hemoglobin 31.5 PG (27.0-31.0) H Mean Corpuscular Hemoglobin Concent 36.5 G/DL (32.0-36.0) H Red Cell Distribution Width 11.5 % (11.6-14.8) L Platelet Count 308 K/UL (150-450) Mean Platelet Volume 6.0 FL (6.5-10.1) L Neutrophils (%) (Auto) 67.6 % (45.0-75.0) Lymphocytes (%) (Auto) 24.3 % (20.0-45.0) Monocytes (%) (Auto) 5.3 % (1.0-10.0) Eosinophils (%) (Auto) 1.9 % (0.0-3.0) Basophils (%) (Auto) 0.9 % (0.0-2.0) Current Medications Medications (Trade) Dose Ordered Sig/Leonor Route PRN Reason Start Time Stop Time Status Last Admin Dose Admin Acetaminophen (Tylenol) 650 mg Q4H PRN NG Mild Pain/Temp > 100.5 08/28/19 13:45 09/27/19 13:44 Amlodipine Besylate (Norvasc) 5 mg Q12H PRN NG high blood pressure 08/20/19 16:15 09/19/19 08:29 08/27/19 17:20 Aspirin (ASA) 162 mg DAILY NG 08/17/19 10:00 09/16/19 09:59 08/30/19 09:21 Dextrose (Dextrose 50%) 25 ml Q30M PRN IV Hypoglycemia 08/08/19 11:45 09/07/19 11:44 Dextrose (Dextrose 50%) 50 ml Q30M PRN IV Hypoglycemia 08/08/19 11:45 09/07/19 11:44 Lisinopril (PriniviL) 20 mg DAILY NG 08/20/19 16:05 09/19/19 16:04 08/30/19 09:21 Loperamide HCl (Imodium) 2 mg Q6H PRN NG Diarrhea 08/28/19 13:45 09/27/19 13:44 Metformin HCl (Glucophage) 500 mg BID NG 08/17/19 10:00 09/16/19 09:59 08/30/19 09:21 Minoxidil (Loniten) 2.5 mg Q4H PRN ORAL For SBP>160 08/28/19 13:30 09/27/19 13:29 08/30/19 09:23 Bob Gilmore MD Aug 30, 2019 11:13
[2019-08-30] MEDS ORDERED: PRINIVIL20 MG NG (11:51)
[2019-08-30] MEDS ORDERED: LONITEN2.5 MG ORAL (11:51)
[2019-08-30] MEDS ORDERED: Acetaminophen NG (11:51)
[2019-08-30] MEDS ORDERED: ASPIRIN81 MG NG (11:51)
[2019-08-30] MEDS ORDERED: LOPERAMIDE1 MG/7.5 M NG (11:51)
[2019-08-30] MEDS ORDERED: GLUCOPHAGE500 MG NG (11:51)
[2019-08-30] MEDS ORDERED: NORVASC5 MG NG (11:51)
--- NOTE | 2019-08-30 11:56 | General Progress Note ---
Assessment/Plan Problem List: (1) Cellulitis of right hand ICD Codes: L03.113 - Cellulitis of right upper limb SNOMED: 91741390 (2) Altered level of consciousness ICD Codes: R40.4 - Transient alteration of awareness SNOMED: 2415214 (3) Sepsis ICD Codes: A41.9 - Sepsis, unspecified organism SNOMED: 38610344 Qualifiers: Qualified Codes: A41.9 - Sepsis, unspecified organism (4) Left middle cerebral artery stroke ICD Codes: I63.512 - Cerebral infarction due to unspecified occlusion or stenosis of left middle cerebral artery SNOMED: 985188607 (5) Left carotid artery occlusion ICD Codes: I65.22 - Occlusion and stenosis of left carotid artery SNOMED: 127773335377074 (6) Hypernatremia Assessment & Plan: better ICD Codes: E87.0 - Hyperosmolality and hypernatremia SNOMED: 370683400 (7) Hypokalemia Assessment & Plan: better ICD Codes: E87.6 - Hypokalemia SNOMED: 01406611 (8) DM (diabetes mellitus) Assessment & Plan: ok ICD Codes: E11.9 - Type 2 diabetes mellitus without complications SNOMED: 01923606 (9) ARF (acute renal failure) Assessment & Plan: ok ICD Codes: N17.9 - Acute kidney failure, unspecified SNOMED: 65791570 (10) Hypertension ICD Codes: I10 - Essential (primary) hypertension SNOMED: 01269319 (11) Aspiration pneumonia ICD Codes: J69.0 - Pneumonitis due to inhalation of food and vomit SNOMED: 221908658 (12) UTI (urinary tract infection) ICD Codes: N39.0 - Urinary tract infection, site not specified SNOMED: 81298890 Status: stable, unchanged Assessment/Plan: cont as is DC today Subjective Allergies: Coded Allergies: UNABLE TO ASSESS (Unverified , 06/18/19) Subjective In NAD Objective Last 24 Hour Vital Signs Date Time Temp Pulse Resp B/P (MAP) Pulse Ox O2 Delivery O2 Flow Rate FiO2 08/30/19 09:23 169/96 08/30/19 09:21 169/96 08/30/19 09:00 Room Air 08/30/19 08:00 97.0 82 20 169/96 (120) 96 08/30/19 04:00 97.9 66 17 122/86 (98) 95 08/30/19 00:00 98.0 74 16 154/82 (106) 98 08/29/19 21:00 Room Air 08/29/19 20:04 97 Nasal Cannula 2.0 28 08/29/19 20:00 97.6 80 16 148/78 (101) 97 08/29/19 16:00 98.2 74 20 190/85 (120) 97 08/29/19 12:00 98.9 73 20 184/87 (119) 97 Intake and Output 08/29/19 08/30/19 19:00 07:00 Intake Total 215 ml 800 ml Balance 215 ml 800 ml Free Water 150 ml 150 ml Tube Feeding 65 ml 650 ml # Voids 4 2 # Bowel Movements 4 Laboratory Tests 08/30/19 08:45: White Blood Count 14.7H, Red Blood Count 4.78, Hemoglobin 15.1, Hematocrit 41.3L , Mean Corpuscular Volume 86, Mean Corpuscular Hemoglobin 31.5H, Mean Corpuscular Hemoglobin Concent 36.5H, Red Cell Distribution Width 11.5L, Platelet Count 308, Mean Platelet Volume 6.0L, Neutrophils (%) (Auto) 67.6, Lymphocytes (%) (Auto) 24.3, Monocytes (%) (Auto) 5.3, Eosinophils (%) (Auto) 1.9, Basophils (%) (Auto) 0.9 Height (Feet): 5 Height (Inches): 8.00 Weight (Pounds): 156 Cardiovascular: normal rate Respiratory/Chest: lungs clear Edema: no edema noted Generalized Kaz Gilmore MD Aug 30, 2019 11:56
[2019-08-30 12:00] VITALS: BP 156/79
--- NOTE | 2019-08-30 14:24 | NUR ---
RADIOLOGY DEPT., CHEST X-RAY DONE.-P.DYE
--- NOTE | 2019-08-30 15:09 | Diagnostic Imaging Report ---
Indication: Cough Technique: One view of the chest Comparison: 07/26/2019 Findings: There is some atelectasis at the right lung base. Previously demonstrated right basilar infiltrate is no longer evident. The remainder of the lungs and pleural spaces are clear. The heart size is normal. The aorta is tortuous and calcified. Impression: Right basilar atelectasis. No acute process otherwise
[2019-08-30 16:00] VITALS: BP 159/76
--- NOTE | 2019-08-30 19:28 | NUR ---
HAND-OFF: Report given to venancio. Spoke to Dr Maame Gilmore, to do urinalysis and urine culture at halfway after discharge using condom catheter. Endorsed orders to venancio.
--- NOTE | 2019-08-30 19:30 | NUR ---
NURSE NOTES: Received patient in bed. A&OX1, confused, non verbal. G-tube in place, running Vital AF 1.2, 65cc/hr, 0cc residual noted, flushed, elevated HOB. Restraint noted on left wrist, radial pulse present, skin intact. Bed in lowest position. Call light within reach. Will continue to monitor.
[2019-08-30 20:00] VITALS: BP 151/80
--- NOTE | 2019-08-30 21:29 | General Progress Note ---
Assessment/Plan Status: stable, unchanged Assessment/Plan: Assessment - Acute CVA - AMS - Dysphagia - s/p GT - beto-arrhythmia Recommendations - IVF - monitor labs - elevate HOB - abx per ID - Off Reglan - d/c planning Subjective Allergies: Coded Allergies: UNABLE TO ASSESS (Unverified , 06/18/19) Subjective above noted NAD Confused tolerating TF Objective Last 24 Hour Vital Signs Date Time Temp Pulse Resp B/P (MAP) Pulse Ox O2 Delivery O2 Flow Rate FiO2 08/30/19 21:07 Room Air 08/30/19 20:00 97.6 90 17 151/80 (103) 95 08/30/19 17:35 71 159/76 08/30/19 16:00 97.2 71 20 159/76 (103) 97 08/30/19 12:00 97.5 81 20 156/79 (104) 98 08/30/19 09:23 169/96 08/30/19 09:21 169/96 08/30/19 09:00 Room Air 08/30/19 08:00 97.0 82 20 169/96 (120) 96 08/30/19 04:00 97.9 66 17 122/86 (98) 95 08/30/19 00:00 98.0 74 16 154/82 (106) 98 Intake and Output 08/29/19 08/30/19 19:00 07:00 Intake Total 215 ml 800 ml Balance 215 ml 800 ml Free Water 150 ml 150 ml Tube Feeding 65 ml 650 ml # Voids 4 2 # Bowel Movements 4 Laboratory Tests 08/30/19 08:45: White Blood Count 14.7H, Red Blood Count 4.78, Hemoglobin 15.1, Hematocrit 41.3L , Mean Corpuscular Volume 86, Mean Corpuscular Hemoglobin 31.5H, Mean Corpuscular Hemoglobin Concent 36.5H, Red Cell Distribution Width 11.5L, Platelet Count 308, Mean Platelet Volume 6.0L, Neutrophils (%) (Auto) 67.6, Lymphocytes (%) (Auto) 24.3, Monocytes (%) (Auto) 5.3, Eosinophils (%) (Auto) 1.9, Basophils (%) (Auto) 0.9 Height (Feet): 5 Height (Inches): 8.00 Weight (Pounds): 156 Objective Elderly man awake, looks at NCAT supple Coarse ronchi RR abd soft, (+) GT no edema Barb Lee MD Aug 30, 2019 21:29
[2019-08-31] VITALS: BP 158/89
[2019-08-31 04:00] VITALS: BP 155/75
--- NOTE | 2019-08-31 07:17 | NUR ---
HAND-OFF: Report given to Maribell BADILLO.
--- NOTE | 2019-08-31 07:18 | NUR ---
NURSE NOTES: received report from JUSTINO Krishnan. patient in bed. non-verbal. no respiratory distress noted. no facial grimacing noted. GTF running @65/hr. HOB at all times. lt hand with soft restraint. skin intact. bed in the lowest position and locked. call light within reach. alarm on, will continue to provide plan of care.
[2019-08-31 08:00] VITALS: BP 152/82
[2019-08-31] MEDS: metFORMIN 500mg tab NG SCH ×2 (09:07→17:24)
[2019-08-31] MEDS: Lisinopril 20mg tab NG SCH (09:07)
[2019-08-31] MEDS: Aspirin Baby 81mg NG SCH (09:07)
--- NOTE | 2019-08-31 11:58 | Infectious Diseases Prog Note ---
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 Aphasia R hemiplegia Leukocytosis worsening Penile lesions, likely noninflammatory Deep tissue injury RECOMMENDATION: Started on Levaquin Will f/u urine culture f/u CBC Subjective ROS Limited/Unobtainable: Yes Neurologic: Reports: confusion, other - on restraint Allergies: Coded Allergies: UNABLE TO ASSESS (Unverified , 06/18/19) Objective Vital Signs Last 24 Hour Vital Signs Date Time Temp Pulse Resp B/P (MAP) Pulse Ox O2 Delivery O2 Flow Rate FiO2 08/31/19 09:07 152/82 08/31/19 09:00 Room Air 08/31/19 08:00 97.7 72 20 152/82 (105) 99 08/31/19 04:00 97.7 88 17 155/75 (101) 98 08/31/19 00:00 97.8 93 17 158/89 (112) 95 08/30/19 21:07 Room Air 08/30/19 20:00 97.6 90 17 151/80 (103) 95 08/30/19 17:35 71 159/76 08/30/19 16:00 97.2 71 20 159/76 (103) 97 08/30/19 12:00 97.5 81 20 156/79 (104) 98 Height (Feet): 5 Height (Inches): 8.00 Weight (Pounds): 167 General Appearance: no acute distress HEENT: mucous membranes moist Respiratory/Chest: lungs clear Cardiovascular: normal rate Abdomen: soft, non tender, other - GT feeding Skin: ulcers Neurologic/Psychiatric: aphasia, other - R hemipleia Current Medications Medications (Trade) Dose Ordered Sig/Leonor Route PRN Reason Start Time Stop Time Status Last Admin Dose Admin Acetaminophen (Tylenol) 650 mg Q4H PRN NG Mild Pain/Temp > 100.5 08/28/19 13:45 09/27/19 13:44 Amlodipine Besylate (Norvasc) 5 mg Q12H PRN NG high blood pressure 08/20/19 16:15 09/19/19 08:29 08/30/19 17:35 Aspirin (ASA) 162 mg DAILY NG 08/17/19 10:00 09/16/19 09:59 08/31/19 09:07 Dextrose (Dextrose 50%) 25 ml Q30M PRN IV Hypoglycemia 08/08/19 11:45 09/07/19 11:44 Dextrose (Dextrose 50%) 50 ml Q30M PRN IV Hypoglycemia 08/08/19 11:45 09/07/19 11:44 Levofloxacin (Levaquin) 750 mg DAILY NG 08/31/19 12:00 09/07/19 11:59 Lisinopril (PriniviL) 20 mg DAILY NG 08/20/19 16:05 09/19/19 16:04 08/31/19 09:07 Loperamide HCl (Imodium) 2 mg Q6H PRN NG Diarrhea 08/28/19 13:45 09/27/19 13:44 Metformin HCl (Glucophage) 500 mg BID NG 08/17/19 10:00 09/16/19 09:59 08/31/19 09:07 Minoxidil (Loniten) 2.5 mg Q4H PRN ORAL For SBP>160 08/28/19 13:30 09/27/19 13:29 08/30/19 09:23 Bob Gilmore MD Aug 31, 2019 11:58
[2019-08-31 12:00] VITALS: BP 161/83
[2019-08-31] MEDS: Levofloxacin 750mg tab NG SCH (12:14)
--- NOTE | 2019-08-31 12:20 | NUR ---
NURSE NOTES: BP was 166/83 at 1200. given [id number] gt prn for htn.
--- NOTE | 2019-08-31 13:00 | NUR ---
NURSE NOTES: BP148/89 after taking Norvasc 5mgtab via GT.
--- NOTE | 2019-08-31 14:28 | NUR ---
CASE MANAGEMENT:REVIEW SI;LEFT MCA CVA. HEMIPLEGIA. APHASIA. HTN. 98.1 88 20 161/83 95% ON RA NO LABS AVAILABLE IS; ASA GT QD LONITEN GT Q4 HRS PRN SBP >160 NORVASC GT BID LISINOPRIL GT QD LEVAQUIN GT QD MED SURG STATUS DCP; SNF PLACEMENT
[2019-08-31 16:00] VITALS: BP 160/80
[2019-08-31 17:36] LABS: APPEARANCE,URINE CLEAR; BILIRUBIN, URINE NEGATIVE (NEGATIVE); GLUCOSE, URINE (UA) NEGATIVE (NEGATIVE); KETONES,URINE NEGATIVE (NEGATIVE); LEUKOCYTE ESTERASE ,URINE NEGATIVE (NEGATIVE); NITRITE,URINE NEGATIVE (NEGATIVE); PH,URINE 6 (4.5-8.0); PROTEIN,URINE 2+ (NEGATIVE); UROBILINOGEN,URINE 1 MG/DL (0.0-1.0)
[2019-08-31 17:37] LABS: COLOR,URINE YELLOW
--- NOTE | 2019-08-31 19:05 | NUR ---
HAND-OFF: Report given to JUSTINO Krishnan.
--- NOTE | 2019-08-31 19:44 | General Progress Note ---
Assessment/Plan Problem List: (1) Cellulitis of right hand ICD Codes: L03.113 - Cellulitis of right upper limb SNOMED: 54828831 (2) Altered level of consciousness ICD Codes: R40.4 - Transient alteration of awareness SNOMED: 1839004 (3) Sepsis ICD Codes: A41.9 - Sepsis, unspecified organism SNOMED: 94193677 Qualifiers: Qualified Codes: A41.9 - Sepsis, unspecified organism (4) Left middle cerebral artery stroke ICD Codes: I63.512 - Cerebral infarction due to unspecified occlusion or stenosis of left middle cerebral artery SNOMED: 710923075 (5) Left carotid artery occlusion ICD Codes: I65.22 - Occlusion and stenosis of left carotid artery SNOMED: 271755776017848 (6) Hypernatremia Assessment & Plan: better ICD Codes: E87.0 - Hyperosmolality and hypernatremia SNOMED: 564931862 (7) Hypokalemia Assessment & Plan: better ICD Codes: E87.6 - Hypokalemia SNOMED: 61425377 (8) DM (diabetes mellitus) Assessment & Plan: ok ICD Codes: E11.9 - Type 2 diabetes mellitus without complications SNOMED: 48765323 (9) ARF (acute renal failure) Assessment & Plan: ok ICD Codes: N17.9 - Acute kidney failure, unspecified SNOMED: 64986260 (10) Hypertension ICD Codes: I10 - Essential (primary) hypertension SNOMED: 98995156 (11) Aspiration pneumonia ICD Codes: J69.0 - Pneumonitis due to inhalation of food and vomit SNOMED: 092855283 (12) UTI (urinary tract infection) ICD Codes: N39.0 - Urinary tract infection, site not specified SNOMED: 63234107 Status: stable, unchanged Assessment/Plan: cont as is await placement Subjective Allergies: Coded Allergies: UNABLE TO ASSESS (Unverified , 06/18/19) Subjective all noted Objective Last 24 Hour Vital Signs Date Time Temp Pulse Resp B/P (MAP) Pulse Ox O2 Delivery O2 Flow Rate FiO2 08/31/19 16:00 98.0 81 20 160/80 (106) 99 08/31/19 12:14 77 161/83 08/31/19 12:00 98.1 77 19 161/83 (109) 99 08/31/19 09:07 152/82 3/18/20 09:00 Room Air 08/31/19 08:00 97.7 72 20 152/82 (105) 99 08/31/19 04:00 97.7 88 17 155/75 (101) 98 08/31/19 00:00 97.8 93 17 158/89 (112) 95 08/30/19 21:07 Room Air 08/30/19 20:00 97.6 90 17 151/80 (103) 95 Intake and Output 08/30/19 08/31/19 19:00 07:00 Intake Total 65 ml 1030 ml Balance 65 ml 1030 ml Free Water 250 ml Tube Feeding 65 ml 780 ml # Voids 3 3 # Bowel Movements 2 Height (Feet): 5 Height (Inches): 8.00 Weight (Pounds): 167 Kaz Gilmore MD Aug 31, 2019 19:44
[2019-08-31 20:00] VITALS: BP 147/93
--- NOTE | 2019-08-31 20:51 | General Progress Note ---
Assessment/Plan Status: stable, unchanged Assessment/Plan: Assessment - Acute CVA - AMS - Dysphagia - s/p GT - beto-arrhythmia Recommendations - IVF - monitor labs - elevate HOB - abx per ID - Off Reglan - d/c planning I will be away until Thursday. Coverage available. Call if questions. Subjective Allergies: Coded Allergies: UNABLE TO ASSESS (Unverified , 06/18/19) Subjective above noted NAD Confused tolerating TF Objective Last 24 Hour Vital Signs Date Time Temp Pulse Resp B/P (MAP) Pulse Ox O2 Delivery O2 Flow Rate FiO2 08/31/19 16:00 98.0 81 20 160/80 (106) 99 08/31/19 12:14 77 161/83 08/31/19 12:00 98.1 77 19 161/83 (109) 99 08/31/19 09:07 152/82 08/31/19 09:00 Room Air 08/31/19 08:00 97.7 72 20 152/82 (105) 99 08/31/19 04:00 97.7 88 17 155/75 (101) 98 08/31/19 00:00 97.8 93 17 158/89 (112) 95 08/30/19 21:07 Room Air Intake and Output 08/30/19 08/31/19 19:00 07:00 Intake Total 65 ml 1030 ml Balance 65 ml 1030 ml Free Water 250 ml Tube Feeding 65 ml 780 ml # Voids 3 3 # Bowel Movements 2 Height (Feet): 5 Height (Inches): 8.00 Weight (Pounds): 167 Objective Elderly man awake, looks at NCAT supple Coarse ronchi RR abd soft, (+) GT no edema Barb Lee MD Aug 31, 2019 20:51
[2019-09-01] VITALS: BP 148/100
[2019-09-01 04:00] VITALS: BP 159/103
--- NOTE | 2019-09-01 07:41 | NUR ---
HAND-OFF: Report given to Maribell BADILLO.
--- NOTE | 2019-09-01 07:48 | NUR ---
NURSE NOTES: received report from JUSTINO Krishnan. patient nonverbal. NO respiratory distress noted on room air no facial grimacing noted. GT running vital 1.2@65/hr. HOB at all times. gt site intact, p200 mattress for skin management. soft restraint on LT wrist for preventing pulling GT and safety. bed in the lowest position and locked. call light within reach. alarm on. will continue to provide plan of care.
[2019-09-01 08:00] VITALS: BP 174/93
[2019-09-01] MEDS: Lisinopril 20mg tab NG SCH (08:51)
[2019-09-01] MEDS: metFORMIN 500mg tab NG SCH ×2 (08:51→17:03)
[2019-09-01] MEDS: Aspirin Baby 81mg NG SCH (08:52)
[2019-09-01] MEDS: Levofloxacin 750mg tab NG SCH (08:53)
--- NOTE | 2019-09-01 08:55 | NUR ---
NURSE NOTES: BP 174/93. given norvasc 5mg tab GT prn for HTN.
--- NOTE | 2019-09-01 09:01 | General Progress Note ---
Assessment/Plan Status: stable, unchanged Assessment/Plan: Assessment/Plan Status: stable, unchanged Assessment/Plan: Assessment - Acute CVA - AMS - Dysphagia - s/p GT - beto-arrhythmia Recommendations - IVF - monitor labs - elevate HOB - abx per ID - Off Reglan - d/c planning Subjective ROS Limited/Unobtainable: No Allergies: Coded Allergies: UNABLE TO ASSESS (Unverified , 06/18/19) Objective Last 24 Hour Vital Signs Date Time Temp Pulse Resp B/P (MAP) Pulse Ox O2 Delivery O2 Flow Rate FiO2 09/01/19 08:52 77 174/93 09/01/19 08:51 174/93 09/01/19 08:00 98.3 77 19 174/93 (120) 95 09/01/19 04:00 98.3 80 17 159/103 (121) 96 09/01/19 01:59 99 Nasal Cannula 2.0 28 09/01/19 00:00 97.9 70 17 148/100 (116) 98 08/31/19 21:00 Room Air 08/31/19 20:00 98.0 58 17 147/93 (111) 98 08/31/19 16:00 98.0 81 20 160/80 (106) 99 08/31/19 12:14 77 161/83 08/31/19 12:00 98.1 77 19 161/83 (109) 99 08/31/19 09:07 152/82 Intake and Output 08/31/19 09/01/19 19:00 07:00 Intake Total 1130 ml 865 ml Output Total 1 ml 600 ml Balance 1129 ml 265 ml Free Water 350 ml 150 ml Tube Feeding 780 ml 715 ml Output Urine Total 1 ml 600 ml # Voids 4 2 # Bowel Movements 1 Height (Feet): 5 Height (Inches): 8.00 Weight (Pounds): 167 General Appearance: no apparent distress EENT: normal ENT inspection Neck: supple Cardiovascular: normal rate Respiratory/Chest: decreased breath sounds Abdomen: normal bowel sounds, non tender, soft Extremities: non-tender Louie Fan MD Sep 01, 2019 09:01
--- NOTE | 2019-09-01 10:00 | NUR ---
NURSE NOTES: BP 152/89 at this time.
--- NOTE | 2019-09-01 10:32 | NUR ---
DISCHARGE PLANNING PATIENT HAS BEEN REFERRED TO THE FOLLOWING FACILITIES: [facility]ST[facility] P: [phone] F: [phone] [facility] P: [phone] F: [phone] [facility] P: [phone] F: [phone] [facility] P: [phone] F: [phone] [facility] P: [phone] F: [phone] [facility] P: [phone] F: [phone] [facility] P: [phone] F: [phone] [facility] P: [phone] F: [phone] [facility] P: [phone] F: [phone]
[2019-09-01 12:00] VITALS: BP 152/91
--- NOTE | 2019-09-01 13:37 | General Progress Note ---
Assessment/Plan Problem List: (1) Cellulitis of right hand ICD Codes: L03.113 - Cellulitis of right upper limb SNOMED: 49444359 (2) Altered level of consciousness ICD Codes: R40.4 - Transient alteration of awareness SNOMED: 5816320 (3) Sepsis ICD Codes: A41.9 - Sepsis, unspecified organism SNOMED: 24368402 Qualifiers: Qualified Codes: A41.9 - Sepsis, unspecified organism (4) Left middle cerebral artery stroke ICD Codes: I63.512 - Cerebral infarction due to unspecified occlusion or stenosis of left middle cerebral artery SNOMED: 651573091 (5) Left carotid artery occlusion ICD Codes: I65.22 - Occlusion and stenosis of left carotid artery SNOMED: 725915722333546 (6) Hypernatremia Assessment & Plan: better ICD Codes: E87.0 - Hyperosmolality and hypernatremia SNOMED: 475058345 (7) Hypokalemia Assessment & Plan: better ICD Codes: E87.6 - Hypokalemia SNOMED: 13275084 (8) DM (diabetes mellitus) Assessment & Plan: ok ICD Codes: E11.9 - Type 2 diabetes mellitus without complications SNOMED: 09156366 (9) ARF (acute renal failure) Assessment & Plan: ok ICD Codes: N17.9 - Acute kidney failure, unspecified SNOMED: 83272343 (10) Hypertension ICD Codes: I10 - Essential (primary) hypertension SNOMED: 13438406 (11) Aspiration pneumonia ICD Codes: J69.0 - Pneumonitis due to inhalation of food and vomit SNOMED: 073832370 (12) UTI (urinary tract infection) ICD Codes: N39.0 - Urinary tract infection, site not specified SNOMED: 95029394 Status: stable, unchanged Assessment/Plan: cont as is await placement at [facility] discussed with case technician, Marylu Subjective Allergies: Coded Allergies: UNABLE TO ASSESS (Unverified , 06/18/19) Subjective all noted Objective Last 24 Hour Vital Signs Date Time Temp Pulse Resp B/P (MAP) Pulse Ox O2 Delivery O2 Flow Rate FiO2 09/01/19 12:00 98.0 88 18 152/91 (111) 96 09/01/19 09:00 Room Air 09/01/19 08:52 77 174/93 09/01/19 08:51 174/93 3/19/20 08:00 98.3 77 19 174/93 (120) 95 09/01/19 04:00 98.3 80 17 159/103 (121) 96 09/01/19 01:59 99 Nasal Cannula 2.0 28 09/01/19 00:00 97.9 70 17 148/100 (116) 98 08/31/19 21:00 Room Air 08/31/19 20:00 98.0 58 17 147/93 (111) 98 08/31/19 16:00 98.0 81 20 160/80 (106) 99 Intake and Output 08/31/19 09/01/19 19:00 07:00 Intake Total 1130 ml 865 ml Output Total 1 ml 600 ml Balance 1129 ml 265 ml Free Water 350 ml 150 ml Tube Feeding 780 ml 715 ml Output Urine Total 1 ml 600 ml # Voids 4 2 # Bowel Movements 1 Height (Feet): 5 Height (Inches): 8.00 Weight (Pounds): 167 Cardiovascular: normal rate Respiratory/Chest: lungs clear Edema: no edema noted Generalized Kaz Gilmore MD Sep 01, 2019 13:37
--- NOTE | 2019-09-01 14:27 | Infectious Diseases Prog Note ---
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 Aphasia R hemiplegia Leukocytosis worsening Penile lesions, likely noninflammatory Deep tissue injury RECOMMENDATION: Continue Levaquin Negative urine culture f/u CBC Subjective ROS Limited/Unobtainable: Yes Neurologic: Reports: confusion, other - on restraint Allergies: Coded Allergies: UNABLE TO ASSESS (Unverified , 06/18/19) Objective Vital Signs Last 24 Hour Vital Signs Date Time Temp Pulse Resp B/P (MAP) Pulse Ox O2 Delivery O2 Flow Rate FiO2 09/01/19 12:00 98.0 88 18 152/91 (111) 96 09/01/19 09:00 Room Air 09/01/19 08:52 77 174/93 09/01/19 08:51 174/93 09/01/19 08:00 98.3 77 19 174/93 (120) 95 09/01/19 04:00 98.3 80 17 159/103 (121) 96 09/01/19 01:59 99 Nasal Cannula 2.0 28 09/01/19 00:00 97.9 70 17 148/100 (116) 98 08/31/19 21:00 Room Air 08/31/19 20:00 98.0 58 17 147/93 (111) 98 08/31/19 16:00 98.0 81 20 160/80 (106) 99 Height (Feet): 5 Height (Inches): 8.00 Weight (Pounds): 167 General Appearance: no acute distress HEENT: mucous membranes moist Respiratory/Chest: lungs clear Cardiovascular: normal rate Abdomen: soft, non tender, other - GT feeding Neurologic/Psychiatric: aphasia, other - R hemiplegia Microbiology Date/Time Source Procedure Growth Status 08/30/19 16:50 Urine,Clean Catch Urine Culture - Preliminary NO GROWTH Resulted Current Medications Medications (Trade) Dose Ordered Sig/Leonor Route PRN Reason Start Time Stop Time Status Last Admin Dose Admin Acetaminophen (Tylenol) 650 mg Q4H PRN NG Mild Pain/Temp > 100.5 08/28/19 13:45 09/27/19 13:44 Amlodipine Besylate (Norvasc) 5 mg Q12H PRN NG high blood pressure 08/20/19 16:15 4/6/20 08:29 09/01/19 08:52 Aspirin (ASA) 162 mg DAILY NG 08/17/19 10:00 09/16/19 09:59 09/01/19 08:52 Dextrose (Dextrose 50%) 25 ml Q30M PRN IV Hypoglycemia 08/08/19 11:45 09/07/19 11:44 Dextrose (Dextrose 50%) 50 ml Q30M PRN IV Hypoglycemia 08/08/19 11:45 09/07/19 11:44 Levofloxacin (Levaquin) 750 mg DAILY NG 08/31/19 12:00 09/07/19 11:59 09/01/19 08:53 Lisinopril (PriniviL) 20 mg DAILY NG 08/20/19 16:05 09/19/19 16:04 09/01/19 08:51 Loperamide HCl (Imodium) 2 mg Q6H PRN NG Diarrhea 08/28/19 13:45 09/27/19 13:44 Metformin HCl (Glucophage) 500 mg BID NG 08/17/19 10:00 09/16/19 09:59 09/01/19 08:51 Minoxidil (Loniten) 2.5 mg Q4H PRN ORAL For SBP>160 08/28/19 13:30 09/27/19 13:29 08/30/19 09:23 Bob Gilmore MD Sep 01, 2019 14:27
--- NOTE | 2019-09-01 15:19 | NUR ---
CASE MANAGEMENT:REVIEW SI;LEFT MCA CVA. HEMIPLEGIA. APHASIA. HTN. 98.3 88 19 174/93 95% ON RA NO LABS AVAILABLE IS;ASA GT QD LONITEN GT Q4 HRS PRN SBP >160 NORVASC GT BID LISINOPRIL GT QD LEVAQUIN GT QD MED SURG STATUS DCP; TO SNF WHEN ACCEPTED TO A FACILITY
[2019-09-01 16:00] VITALS: BP 160/89
--- NOTE | 2019-09-01 19:33 | NUR ---
HAND-OFF: Report given to JUSTINO Ang.
--- NOTE | 2019-09-01 19:35 | NUR ---
NURSE NOTES: Received patient in bed, asleep, no acute distress noted, fall precautions are implemented, staff on the floor are aware and frequent rounds will be made to ensure safety and comfort. No IV access and MD is aware. Left wrist soft restraint is on. Call light is within reach, bed is lowered, locked, alarm is on, will continue to monitor for comfort and safety.
[2019-09-01 20:00] VITALS: BP 150/77
[2019-09-02] VITALS: BP 148/74
[2019-09-02 04:00] VITALS: BP 143/80
[2019-09-02 05:35] LABS: BASOPHILS % (AUTO) 0.9 % (0.0-2.0); EOSINOPHILS % (AUTO) 1.5 % (0.0-3.0); HEMOGLOBIN 14.9 G/DL (14.2-18.0); MEAN CORPUSCULAR VOLUME 87 FL (80-99); MONOCYTES % (AUTO) 5.4 % (1.0-10.0); NEUTROPHILS % (AUTO) 66.3 % (45.0-75.0); PLATELET COUNT 277 K/UL (150-450); RED BLOOD COUNT 4.74 M/UL (4.70-6.10); RED CELL DISTRIBUTION WIDTH 11.6 % (11.6-14.8); WHITE BLOOD COUNT 12.3 K/UL (4.8-10.8)
--- NOTE | 2019-09-02 07:05 | General Progress Note ---
Assessment/Plan Status: stable, unchanged Assessment/Plan: Assessment/Plan Status: stable, unchanged Assessment/Plan: Assessment - Acute CVA - AMS - Dysphagia - s/p GT - beto-arrhythmia Recommendations - IVF - monitor labs - elevate HOB - abx per ID - Off Reglan - d/c planning Subjective ROS Limited/Unobtainable: No Allergies: Coded Allergies: UNABLE TO ASSESS (Unverified , 06/18/19) Objective Last 24 Hour Vital Signs Date Time Temp Pulse Resp B/P (MAP) Pulse Ox O2 Delivery O2 Flow Rate FiO2 09/02/19 04:00 98.4 82 18 143/80 (101) 96 09/02/19 00:00 98.8 88 20 148/74 (98) 96 09/01/19 21:22 Room Air 09/01/19 20:00 98.5 86 20 150/77 (101) 95 09/01/19 16:00 97.4 83 18 160/89 (112) 97 09/01/19 12:00 98.0 88 18 152/91 (111) 96 09/01/19 09:00 Room Air 09/01/19 08:52 77 174/93 09/01/19 08:51 174/93 09/01/19 08:00 98.3 77 19 174/93 (120) 95 Intake and Output 09/01/19 09/02/19 19:00 07:00 Intake Total 1080 ml Balance 1080 ml Free Water 300 ml Tube Feeding 780 ml Laboratory Tests 09/02/19 04:05: White Blood Count 12.3H, Red Blood Count 4.74, Hemoglobin 14.9, Hematocrit 41.0L , Mean Corpuscular Volume 87, Mean Corpuscular Hemoglobin 31.5H, Mean Corpuscular Hemoglobin Concent 36.4H, Red Cell Distribution Width 11.6, Platelet Count 277, Mean Platelet Volume 5.6L, Neutrophils (%) (Auto) 66.3, Lymphocytes (%) (Auto) 26.0, Monocytes (%) (Auto) 5.4, Eosinophils (%) (Auto) 1.5, Basophils (%) (Auto) 0.9 Height (Feet): 5 Height (Inches): 8.00 Weight (Pounds): 167 General Appearance: alert EENT: normal ENT inspection Neck: supple Cardiovascular: normal rate Respiratory/Chest: decreased breath sounds Abdomen: normal bowel sounds, non tender, soft Extremities: non-tender Louie Fan MD Sep 02, 2019 07:05
--- NOTE | 2019-09-02 07:20 | NUR ---
HAND-OFF: Report given to Rosalba JAMES.
--- NOTE | 2019-09-02 07:35 | NUR ---
NURSE NOTES: received report from JUSTINO Ang. patient nonverbal. NO respiratory distress noted on room air no facial grimacing noted. GT running vital af 1.2@65/hr. HOB at all times. gt site intact, tolerating well. no gastric residual. p200 mattress for skin management. soft restraint on LT wrist for preventing pulling devices and safety. bed in the lowest position and locked. call light within reach. bed alarm on. will continue to provide plan of care.
[2019-09-02 08:00] VITALS: BP 156/83
[2019-09-02] MEDS: metFORMIN 500mg tab NG SCH ×2 (08:26→16:56)
[2019-09-02] MEDS: Levofloxacin 750mg tab NG SCH (08:27)
[2019-09-02] MEDS: Lisinopril 20mg tab NG SCH (08:27)
[2019-09-02] MEDS: Aspirin Baby 81mg NG SCH (08:28)
--- NOTE | 2019-09-02 11:28 | Infectious Diseases Prog Note ---
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 Aphasia R hemiplegia Leukocytosis improving Penile lesions, likely noninflammatory Deep tissue injury RECOMMENDATION: Continue Levaquin X 1 day f/u CBC Subjective ROS Limited/Unobtainable: Yes Neurologic: Reports: confusion, other - on restraint Allergies: Coded Allergies: UNABLE TO ASSESS (Unverified , 06/18/19) Objective Vital Signs Last 24 Hour Vital Signs Date Time Temp Pulse Resp B/P (MAP) Pulse Ox O2 Delivery O2 Flow Rate FiO2 09/02/19 08:27 156/83 09/02/19 08:00 97.4 70 18 156/83 (107) 97 09/02/19 07:56 Room Air 09/02/19 04:00 98.4 82 18 143/80 (101) 96 09/02/19 00:00 98.8 88 20 148/74 (98) 96 09/01/19 21:22 Room Air 09/01/19 20:00 98.5 86 20 150/77 (101) 95 09/01/19 16:00 97.4 83 18 160/89 (112) 97 09/01/19 12:00 98.0 88 18 152/91 (111) 96 Height (Feet): 5 Height (Inches): 8.00 Weight (Pounds): 167 General Appearance: no acute distress HEENT: mucous membranes moist Respiratory/Chest: lungs clear Cardiovascular: normal rate Abdomen: soft, non tender, other - GT feeding Extremities: no edema Neurologic/Psychiatric: aphasia Microbiology Date/Time Source Procedure Growth Status 08/30/19 16:50 Urine,Clean Catch Urine Culture - Preliminary Mixed Gram Positive Organism Resulted Laboratory Tests Test 09/02/19 04:05 White Blood Count 12.3 K/UL (4.8-10.8) H Red Blood Count 4.74 M/UL (4.70-6.10) Hemoglobin 14.9 G/DL (14.2-18.0) Hematocrit 41.0 % (42.0-52.0) L Mean Corpuscular Volume 87 FL (80-99) Mean Corpuscular Hemoglobin 31.5 PG (27.0-31.0) H Mean Corpuscular Hemoglobin Concent 36.4 G/DL (32.0-36.0) H Red Cell Distribution Width 11.6 % (11.6-14.8) Platelet Count 277 K/UL (150-450) Mean Platelet Volume 5.6 FL (6.5-10.1) L Neutrophils (%) (Auto) 66.3 % (45.0-75.0) Lymphocytes (%) (Auto) 26.0 % (20.0-45.0) Monocytes (%) (Auto) 5.4 % (1.0-10.0) Eosinophils (%) (Auto) 1.5 % (0.0-3.0) Basophils (%) (Auto) 0.9 % (0.0-2.0) Current Medications Medications (Trade) Dose Ordered Sig/Leonor Route PRN Reason Start Time Stop Time Status Last Admin Dose Admin Acetaminophen (Tylenol) 650 mg Q4H PRN NG Mild Pain/Temp > 100.5 08/28/19 13:45 09/27/19 13:44 Amlodipine Besylate (Norvasc) 5 mg Q12H PRN NG high blood pressure 08/20/19 16:15 09/19/19 08:29 09/01/19 08:52 Aspirin (ASA) 162 mg DAILY NG 08/17/19 10:00 09/16/19 09:59 09/02/19 08:28 Dextrose (Dextrose 50%) 25 ml Q30M PRN IV Hypoglycemia 08/08/19 11:45 09/07/19 11:44 Dextrose (Dextrose 50%) 50 ml Q30M PRN IV Hypoglycemia 08/08/19 11:45 09/07/19 11:44 Levofloxacin (Levaquin) 750 mg DAILY NG 08/31/19 12:00 09/07/19 11:59 09/02/19 08:27 Lisinopril (PriniviL) 20 mg DAILY NG 08/20/19 16:05 09/19/19 16:04 09/02/19 08:27 Loperamide HCl (Imodium) 2 mg Q6H PRN NG Diarrhea 08/28/19 13:45 09/27/19 13:44 Metformin HCl (Glucophage) 500 mg BID NG 08/17/19 10:00 09/16/19 09:59 09/02/19 08:26 Minoxidil (Loniten) 2.5 mg Q4H PRN ORAL For SBP>160 08/28/19 13:30 09/27/19 13:29 08/30/19 09:23 Bob Gilmore MD Sep 02, 2019 11:28
[2019-09-02 12:00] VITALS: BP 150/80
--- NOTE | 2019-09-02 12:02 | NUR ---
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 * Altered nutrition related lab values r/t sepsis, DM, volume deficit as evidenced by elev WBC (12.3), elev POC glu (now improved) w/ A1C 6.9, elev Na (153-> wnl ->152->wnl), elev BUN (78-> 27), elev creat(1.6, now wnl). CURRENT TF:Vital 1.2 @ 65ml x24 hrs ENTERAL NUTRITION RECOMMENDATIONS: VITAL 1.2 @ 65ml/hr x 24 hrs to provide 1560ml, 1872kcal, 117g prot, 1265ml free water - Maintain at goal and monitor tolerance. - HOB over 30 degrees - H20 flush of 150ml q 4 hrs ADDITIONAL RECOMMENDATIONS: 1) REC TO RECALIBRATE BED - w/ added p200 mattress + SCDs 2) Monitor hydration status and renal fxn: creat now wnl, BUN still elev -> rec f/up BMP (last done 08/14) 3) WOUND HEALING: add Vit C 250mg QD Continue Osbaldo 1pkt BID (mix w/ 4oz water, give via PEG) 4) Monitor lytes, replete as needed: rec check updated lytes .
--- NOTE | 2019-09-02 14:01 | NUR ---
CASE MANAGEMENT:REVIEW SI;LEFT MCA CVA. HEMIPLEGIA. APHASIA. HTN. 98.8 55 20 156/83 96% ON RA WBC 12.3 BUN 27 IS;ASA GT QD LONITEN GT Q4 HRS PRN SBP >160 NORVASC GT BID LISINOPRIL GT QD LEVAQUIN GT QD MED SURG STATUS DCP; SNF PLACEMENT WHEN ACCEPTED TO A FACILITY
--- NOTE | 2019-09-02 15:58 | NUR ---
NURSE NOTES: applied calazime and covered optifoam on the sacral for protection. gtube drsg applied and no leakage or drainage noted. tolerating tube feeding well. no gastric residual noted. will cont to monitor.
[2019-09-02 16:01] VITALS: BP 148/83
--- NOTE | 2019-09-02 18:56 | NUR ---
HAND-OFF: Report given to SHANTI.
--- NOTE | 2019-09-02 19:37 | NUR ---
NURSE NOTES: Received patient in bed, asleep, non verbal, no acute distress noted, no IV access, MD is aware. Left wrist restrain is on for safety, frequent monitoring and rounds will be made to ensure safety and comfort. GTube feeing is tolerated well, no residual noted. Call light is within reach, bed is lowered, locked, alarm is on.
[2019-09-02 20:00] VITALS: BP 150/68
--- NOTE | 2019-09-02 21:57 | General Progress Note ---
Assessment/Plan Problem List: (1) Cellulitis of right hand ICD Codes: L03.113 - Cellulitis of right upper limb SNOMED: 62765654 (2) Altered level of consciousness ICD Codes: R40.4 - Transient alteration of awareness SNOMED: 8493290 (3) Sepsis ICD Codes: A41.9 - Sepsis, unspecified organism SNOMED: 94883127 Qualifiers: Qualified Codes: A41.9 - Sepsis, unspecified organism (4) Left middle cerebral artery stroke ICD Codes: I63.512 - Cerebral infarction due to unspecified occlusion or stenosis of left middle cerebral artery SNOMED: 409921470 (5) Left carotid artery occlusion ICD Codes: I65.22 - Occlusion and stenosis of left carotid artery SNOMED: 282027898614497 (6) Hypernatremia Assessment & Plan: better ICD Codes: E87.0 - Hyperosmolality and hypernatremia SNOMED: 124072577 (7) Hypokalemia Assessment & Plan: better ICD Codes: E87.6 - Hypokalemia SNOMED: 14392787 (8) DM (diabetes mellitus) Assessment & Plan: ok ICD Codes: E11.9 - Type 2 diabetes mellitus without complications SNOMED: 71349220 (9) ARF (acute renal failure) Assessment & Plan: ok ICD Codes: N17.9 - Acute kidney failure, unspecified SNOMED: 34459313 (10) Hypertension ICD Codes: I10 - Essential (primary) hypertension SNOMED: 59488288 (11) Aspiration pneumonia ICD Codes: J69.0 - Pneumonitis due to inhalation of food and vomit SNOMED: 813548466 (12) UTI (urinary tract infection) ICD Codes: N39.0 - Urinary tract infection, site not specified SNOMED: 50870833 Status: stable, unchanged Assessment/Plan: cont as is await placement Subjective Allergies: Coded Allergies: UNABLE TO ASSESS (Unverified , 06/18/19) Subjective all noted Objective Last 24 Hour Vital Signs Date Time Temp Pulse Resp B/P (MAP) Pulse Ox O2 Delivery O2 Flow Rate FiO2 09/02/19 21:27 Room Air 09/02/19 20:00 97.9 80 17 150/68 (95) 98 09/02/19 16:01 98.0 81 18 148/83 (104) 98 09/02/19 12:00 97.8 77 18 150/80 (103) 98 09/02/19 08:27 156/83 09/02/19 08:00 97.4 70 18 156/83 (107) 97 09/02/19 07:56 Room Air 09/02/19 04:00 98.4 82 18 143/80 (101) 96 09/02/19 00:00 98.8 88 20 148/74 (98) 96 Intake and Output 09/01/19 09/02/19 19:00 07:00 Intake Total 1080 ml 65 ml Balance 1080 ml 65 ml Free Water 300 ml Tube Feeding 780 ml 65 ml Laboratory Tests 09/02/19 04:05: White Blood Count 12.3H, Red Blood Count 4.74, Hemoglobin 14.9, Hematocrit 41.0L , Mean Corpuscular Volume 87, Mean Corpuscular Hemoglobin 31.5H, Mean Corpuscular Hemoglobin Concent 36.4H, Red Cell Distribution Width 11.6, Platelet Count 277, Mean Platelet Volume 5.6L, Neutrophils (%) (Auto) 66.3, Lymphocytes (%) (Auto) 26.0, Monocytes (%) (Auto) 5.4, Eosinophils (%) (Auto) 1.5, Basophils (%) (Auto) 0.9 Height (Feet): 5 Height (Inches): 8.00 Weight (Pounds): 167 Kaz Gilmore MD Sep 02, 2019 21:57
[2019-09-03] VITALS (7 sets, daily range): BP systolic 138–157; BP diastolic 63–86
--- NOTE | 2019-09-03 07:30 | NUR ---
HAND-OFF: Report given to Davide BADILLO.
--- NOTE | 2019-09-03 07:30 | NUR ---
NURSE NOTES: Report received from Ashia BADILLO. Patient is currently supine in semi fowlers with head of bed at 30 degrees due to tube feeding. Patient is not alert and oriented. This is not a new status for the patient. Patient currently on room air, does not appear to be in respiratory distress. Patient does not show signs of pain at this time. Patient noted to have left soft wrist restraint. Good circulation, no signs of edema, patient able to move extremities. Patient noted to have Vital AF 1.2 running at 60 cc / hour, this is the goal rate. Patient noted not to have IV access, endorsed by previous nurse that MD is aware. Bed locked, in lowest position, alarmed, head of bed at 30 degrees. Will continue to follow plan of care. Addendum: 09/03/19 at 0802 by Davide Ruiz RN Patient noted to be a high fall risk, due to climbing out of bed and confusion. SCRUMMASTER aware, will preform frequent checks, on fall risk list.
[2019-09-03] MEDS: Lisinopril 20mg tab NG SCH (08:58)
[2019-09-03] MEDS: metFORMIN 500mg tab NG SCH ×2 (08:58→17:39)
[2019-09-03] MEDS: Aspirin Baby 81mg NG SCH (08:58)
[2019-09-03] MEDS: Levofloxacin 750mg tab NG SCH (08:58)
--- NOTE | 2019-09-03 09:38 | General Progress Note ---
Assessment/Plan Status: stable, unchanged Assessment/Plan: Assessment/Plan Status: stable, unchanged Assessment/Plan: Assessment - Acute CVA - AMS - Dysphagia - s/p GT - beto-arrhythmia Recommendations - IVF - monitor labs - elevate HOB - abx per ID - Off Reglan - d/c planning Subjective ROS Limited/Unobtainable: No Allergies: Coded Allergies: UNABLE TO ASSESS (Unverified , 06/18/19) Objective Last 24 Hour Vital Signs Date Time Temp Pulse Resp B/P (MAP) Pulse Ox O2 Delivery O2 Flow Rate FiO2 09/03/19 08:58 151/86 09/03/19 08:57 76 151/83 09/03/19 04:00 97.6 93 17 150/80 (103) 96 09/03/19 00:00 98.0 90 17 145/75 (98) 98 09/02/19 21:27 Room Air 09/02/19 20:00 97.9 80 17 150/68 (95) 98 09/02/19 16:01 98.0 81 18 148/83 (104) 98 09/02/19 12:00 97.8 77 18 150/80 (103) 98 Intake and Output 09/02/19 09/03/19 19:00 07:00 Intake Total 895 ml Balance 895 ml Free Water 180 ml Tube Feeding 715 ml Height (Feet): 5 Height (Inches): 8.00 Weight (Pounds): 167 General Appearance: no apparent distress EENT: normal ENT inspection Neck: supple Cardiovascular: normal rate Respiratory/Chest: decreased breath sounds Abdomen: normal bowel sounds, non tender, soft Extremities: non-tender Louie Fan MD Sep 03, 2019 09:38
--- NOTE | 2019-09-03 15:21 | General Progress Note ---
Assessment/Plan Problem List: (1) Cellulitis of right hand ICD Codes: L03.113 - Cellulitis of right upper limb SNOMED: 63594726 (2) Altered level of consciousness ICD Codes: R40.4 - Transient alteration of awareness SNOMED: 0258555 (3) Sepsis ICD Codes: A41.9 - Sepsis, unspecified organism SNOMED: 41883618 Qualifiers: Qualified Codes: A41.9 - Sepsis, unspecified organism (4) Left middle cerebral artery stroke ICD Codes: I63.512 - Cerebral infarction due to unspecified occlusion or stenosis of left middle cerebral artery SNOMED: 263804951 (5) Left carotid artery occlusion ICD Codes: I65.22 - Occlusion and stenosis of left carotid artery SNOMED: 442453977473222 (6) Hypernatremia Assessment & Plan: better ICD Codes: E87.0 - Hyperosmolality and hypernatremia SNOMED: 161245672 (7) Hypokalemia Assessment & Plan: better ICD Codes: E87.6 - Hypokalemia SNOMED: 87979529 (8) DM (diabetes mellitus) Assessment & Plan: ok ICD Codes: E11.9 - Type 2 diabetes mellitus without complications SNOMED: 43203732 (9) ARF (acute renal failure) Assessment & Plan: ok ICD Codes: N17.9 - Acute kidney failure, unspecified SNOMED: 71893449 (10) Hypertension ICD Codes: I10 - Essential (primary) hypertension SNOMED: 49916004 (11) Aspiration pneumonia ICD Codes: J69.0 - Pneumonitis due to inhalation of food and vomit SNOMED: 292306245 (12) UTI (urinary tract infection) ICD Codes: N39.0 - Urinary tract infection, site not specified SNOMED: 12373242 Status: stable, unchanged Assessment/Plan: watch BP continue Metformin await placement Subjective Allergies: Coded Allergies: UNABLE TO ASSESS (Unverified , 06/18/19) Subjective all noted Objective Last 24 Hour Vital Signs Date Time Temp Pulse Resp B/P (MAP) Pulse Ox O2 Delivery O2 Flow Rate FiO2 09/03/19 12:00 97.7 92 20 144/86 (105) 98 09/03/19 09:00 Room Air 09/03/19 08:58 151/86 09/03/19 08:57 76 151/83 09/03/19 08:00 97.7 76 19 151/83 (105) 97 09/03/19 04:00 97.6 93 17 150/80 (103) 96 09/03/19 00:00 98.0 90 17 145/75 (98) 98 09/02/19 21:27 Room Air 09/02/19 20:00 97.9 80 17 150/68 (95) 98 09/02/19 16:01 98.0 81 18 148/83 (104) 98 Intake and Output 09/02/19 09/03/19 19:00 07:00 Intake Total 895 ml 65 ml Balance 895 ml 65 ml Free Water 180 ml Tube Feeding 715 ml 65 ml Height (Feet): 5 Height (Inches): 8.00 Weight (Pounds): 167 Kaz Gilmore MD Sep 03, 2019 15:21
--- NOTE | 2019-09-03 19:31 | NUR ---
HAND-OFF: Report given to Екатерина BADILLO. Endorsed that patient is a high risk of fall due to ams.
--- NOTE | 2019-09-03 19:34 | NUR ---
NURSE NOTES: Received report from JUSTINO Sandoval. patient is nonverbal. On room air, no respiratory distress noted. GT patent running vital AF 1.2@65/hr. HOB elevated at all times. Gt flushed, no gastric residual. p200 mattress for skin management. Soft restraint on left wrist for preventing pulling devices and safety. Restraint site asymptomatic. Fall precaution in place. Sign on the door, bed alarm is on,bed in the lowest position and locked. Call light within reach. Will do frequent rounds and continue to monitor the pt.
[2019-09-03] MEDS: Minoxidil 2.5mg tab ORAL PRN (23:30)
--- NOTE | 2019-09-03 23:33 | NUR ---
NURSE NOTES: Rechecked BP of 166/88 and administered Minoxidil 2.5 mg PRN as ordered SBP>160. Will recheck BP.
[2019-09-04] VITALS: BP 166/88
--- NOTE | 2019-09-04 02:24 | NUR ---
NURSE NOTES: Rechecked BP @0100, BP went down to 137/78.
[2019-09-04 04:00] VITALS: BP 145/81
--- NOTE | 2019-09-04 07:38 | NUR ---
HAND-OFF: Report given to JUSTINO Tello.Endorsed about high fall risk status to oncoming shift. fall precaution in place.
--- NOTE | 2019-09-04 07:40 | NUR ---
NURSE NOTES: Received patient in bed, awake, non-verbal. Patient opens his eyes spontaneously. No s/s of pain or discomfort @ this time. On GT feeding, GT is intact, No IV. patient is on left soft wrist restraints. Pulse presents. HOB elevated to prevent aspiration. Bed is in lowest position and locked. Will continue plan of care.
--- NOTE | 2019-09-04 07:42 | NUR ---
NURSE NOTES: Patient is a high risk of fall with Nash fall scale 70. Bed is in lowest position and locked. Bed alarm is on and yellow socks and gown on. Fall risk sign in front of the door. Side rails x3 up.Frequent visual check for safety.
[2019-09-04 08:00] VITALS: BP 159/75
--- NOTE | 2019-09-04 08:20 | General Progress Note ---
Assessment/Plan Status: stable, unchanged Assessment/Plan: Assessment/Plan Status: stable, unchanged Assessment/Plan: Assessment - Acute CVA - AMS - Dysphagia - s/p GT - beto-arrhythmia Recommendations - IVF - monitor labs - elevate HOB - abx per ID - Off Reglan - d/c planning Subjective ROS Limited/Unobtainable: No Allergies: Coded Allergies: UNABLE TO ASSESS (Unverified , 06/18/19) Objective Last 24 Hour Vital Signs Date Time Temp Pulse Resp B/P (MAP) Pulse Ox O2 Delivery O2 Flow Rate FiO2 09/04/19 08:00 97.6 77 17 159/75 (103) 98 09/04/19 04:00 98.6 85 20 145/81 (102) 95 09/04/19 00:00 98.4 73 20 166/88 (114) 96 09/03/19 23:30 166/88 09/03/19 21:39 98.5 88 18 146/81 (102) 96 09/03/19 21:00 Room Air 09/03/19 20:00 98.5 58 18 157/63 (94) 96 09/03/19 19:56 95 Nasal Cannula 2.0 28 09/03/19 16:00 97.7 59 17 138/79 (98) 95 09/03/19 12:00 97.7 92 20 144/86 (105) 98 09/03/19 09:00 Room Air 09/03/19 08:58 151/86 09/03/19 08:57 76 151/83 Intake and Output 09/03/19 09/04/19 19:00 07:00 Intake Total 1015 ml 1015 ml Balance 1015 ml 1015 ml Free Water 300 ml 300 ml Tube Feeding 715 ml 715 ml # Bowel Movements 2 Height (Feet): 5 Height (Inches): 8.00 Weight (Pounds): 167 General Appearance: no apparent distress EENT: normal ENT inspection Neck: supple Cardiovascular: normal rate Respiratory/Chest: decreased breath sounds Abdomen: normal bowel sounds, non tender, soft Extremities: non-tender Louie Fan MD Sep 04, 2019 08:20
[2019-09-04] MEDS: Levofloxacin 750mg tab NG SCH (09:13)
[2019-09-04] MEDS: Lisinopril 20mg tab NG SCH (09:13)
[2019-09-04] MEDS: Aspirin Baby 81mg NG SCH (09:13)
[2019-09-04] MEDS: metFORMIN 500mg tab NG SCH ×2 (09:14→17:53)
[2019-09-04 11:58] VITALS: BP 151/88
--- NOTE | 2019-09-04 12:14 | General Progress Note ---
Assessment/Plan Problem List: (1) Cellulitis of right hand ICD Codes: L03.113 - Cellulitis of right upper limb SNOMED: 20235562 (2) Altered level of consciousness ICD Codes: R40.4 - Transient alteration of awareness SNOMED: 3023555 (3) Sepsis ICD Codes: A41.9 - Sepsis, unspecified organism SNOMED: 60435630 Qualifiers: Qualified Codes: A41.9 - Sepsis, unspecified organism (4) Left middle cerebral artery stroke ICD Codes: I63.512 - Cerebral infarction due to unspecified occlusion or stenosis of left middle cerebral artery SNOMED: 924968990 (5) Left carotid artery occlusion ICD Codes: I65.22 - Occlusion and stenosis of left carotid artery SNOMED: 773629901835902 (6) Hypernatremia Assessment & Plan: better ICD Codes: E87.0 - Hyperosmolality and hypernatremia SNOMED: 373142127 (7) Hypokalemia Assessment & Plan: better ICD Codes: E87.6 - Hypokalemia SNOMED: 88011527 (8) DM (diabetes mellitus) Assessment & Plan: ok ICD Codes: E11.9 - Type 2 diabetes mellitus without complications SNOMED: 49811195 (9) ARF (acute renal failure) Assessment & Plan: ok ICD Codes: N17.9 - Acute kidney failure, unspecified SNOMED: 73091732 (10) Hypertension ICD Codes: I10 - Essential (primary) hypertension SNOMED: 54616273 (11) Aspiration pneumonia ICD Codes: J69.0 - Pneumonitis due to inhalation of food and vomit SNOMED: 558729565 (12) UTI (urinary tract infection) ICD Codes: N39.0 - Urinary tract infection, site not specified SNOMED: 65613298 Status: stable, unchanged Assessment/Plan: May need to increase BP meds BMP tomorrow watch BS await placement Subjective Allergies: Coded Allergies: UNABLE TO ASSESS (Unverified , 06/18/19) Subjective all noted Objective Last 24 Hour Vital Signs Date Time Temp Pulse Resp B/P (MAP) Pulse Ox O2 Delivery O2 Flow Rate FiO2 09/04/19 11:58 97.7 76 18 151/88 (109) 97 09/04/19 09:13 159/75 09/04/19 09:00 Room Air 09/04/19 08:35 97 Nasal Cannula 2.0 28 09/04/19 08:00 97.6 77 17 159/75 (103) 98 09/04/19 04:00 98.6 85 20 145/81 (102) 95 09/04/19 00:00 98.4 73 20 166/88 (114) 96 09/03/19 23:30 166/88 09/03/19 21:39 98.5 88 18 146/81 (102) 96 09/03/19 21:00 Room Air 09/03/19 20:00 98.5 58 18 157/63 (94) 96 09/03/19 19:56 95 Nasal Cannula 2.0 28 09/03/19 16:00 97.7 59 17 138/79 (98) 95 Intake and Output 09/03/19 09/04/19 19:00 07:00 Intake Total 1015 ml 1015 ml Balance 1015 ml 1015 ml Free Water 300 ml 300 ml Tube Feeding 715 ml 715 ml # Bowel Movements 2 Height (Feet): 5 Height (Inches): 8.00 Weight (Pounds): 167 Kaz Gilmore MD Sep 04, 2019 12:14
--- NOTE | 2019-09-04 13:58 | Infectious Diseases Prog Note ---
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 Aphasia R hemiplegia Leukocytosis Deep tissue injury RECOMMENDATION: Observe off antibiotic f/u CBC Subjective ROS Limited/Unobtainable: Yes Neurologic: Reports: confusion, other - on restraint Allergies: Coded Allergies: UNABLE TO ASSESS (Unverified , 06/18/19) Objective Vital Signs Last 24 Hour Vital Signs Date Time Temp Pulse Resp B/P (MAP) Pulse Ox O2 Delivery O2 Flow Rate FiO2 09/04/19 11:58 97.7 76 18 151/88 (109) 97 09/04/19 09:13 159/75 09/04/19 09:00 Room Air 09/04/19 08:35 97 Nasal Cannula 2.0 28 09/04/19 08:00 97.6 77 17 159/75 (103) 98 09/04/19 04:00 98.6 85 20 145/81 (102) 95 09/04/19 00:00 98.4 73 20 166/88 (114) 96 09/03/19 23:30 166/88 09/03/19 21:39 98.5 88 18 146/81 (102) 96 09/03/19 21:00 Room Air 09/03/19 20:00 98.5 58 18 157/63 (94) 96 09/03/19 19:56 95 Nasal Cannula 2.0 28 09/03/19 16:00 97.7 59 17 138/79 (98) 95 Height (Feet): 5 Height (Inches): 8.00 Weight (Pounds): 167 General Appearance: no acute distress HEENT: mucous membranes moist Respiratory/Chest: normal breath sounds Cardiovascular: normal rate Abdomen: soft, non tender, other - GT feeding Extremities: no edema Neurologic/Psychiatric: aphasia, other - R hemiplegia Current Medications Medications (Trade) Dose Ordered Sig/Leonor Route PRN Reason Start Time Stop Time Status Last Admin Dose Admin Acetaminophen (Tylenol) 650 mg Q4H PRN NG Mild Pain/Temp > 100.5 08/28/19 13:45 09/27/19 13:44 Amlodipine Besylate (Norvasc) 5 mg Q12H PRN NG high blood pressure 08/20/19 16:15 09/19/19 08:29 09/03/19 08:57 Aspirin (ASA) 162 mg DAILY NG 08/17/19 10:00 09/16/19 09:59 09/04/19 09:13 Dextrose (Dextrose 50%) 25 ml Q30M PRN IV Hypoglycemia 08/08/19 11:45 09/07/19 11:44 Dextrose (Dextrose 50%) 50 ml Q30M PRN IV Hypoglycemia 08/08/19 11:45 09/07/19 11:44 Lisinopril (PriniviL) 20 mg DAILY NG 08/20/19 16:05 09/19/19 16:04 09/04/19 09:13 Loperamide HCl (Imodium) 2 mg Q6H PRN NG Diarrhea 08/28/19 13:45 09/27/19 13:44 Metformin HCl (Glucophage) 500 mg BID NG 08/17/19 10:00 09/16/19 09:59 09/04/19 09:14 Minoxidil (Loniten) 2.5 mg Q4H PRN ORAL For SBP>160 08/28/19 13:30 09/27/19 13:29 09/03/19 23:30 Bob Gilmore MD Sep 04, 2019 13:58
[2019-09-04 16:00] VITALS: BP 139/86
--- NOTE | 2019-09-04 19:00 | NUR ---
NURSE NOTES: Patient had bowel movement x2 and urinated. proper incontinent care done, no skin issue. Re-position done,no swelling, bruise, skin break on left wrist. GT is intact.
--- NOTE | 2019-09-04 19:15 | NUR ---
HAND-OFF: Report given to Ashia and endorsed plan of care.
--- NOTE | 2019-09-04 19:20 | NUR ---
NURSE NOTES: Received patient in bed, asleep, non verbal, no IV MD is aware, patient is on fall precautions, staff on the floor are aware of high fall risk and high fall score, frequent rounding will be made to ensure safety and comfort. Patient has a left wrist restraint. Call light is within reach, bed is lowered locked, alarm is on. Will continue to monitor for comfort and safety.
[2019-09-04 20:00] VITALS: BP 153/79
[2019-09-05] VITALS: BP 147/52
[2019-09-05 04:00] VITALS: BP 147/80
[2019-09-05 07:22] LABS: BASOPHILS % (AUTO) 0.6 % (0.0-2.0); EOSINOPHILS % (AUTO) 1.6 % (0.0-3.0); HEMATOCRIT 43.2 % (42.0-52.0); HEMOGLOBIN 15.4 G/DL (14.2-18.0); LYMPHOCYTES % (AUTO) 27.7 % (20.0-45.0); MEAN CORPUSCULAR VOLUME 87 FL (80-99); MONOCYTES % (AUTO) 4.8 % (1.0-10.0); NEUTROPHILS % (AUTO) 65.3 % (45.0-75.0); PLATELET COUNT 331 K/UL (150-450); RED BLOOD COUNT 4.98 M/UL (4.70-6.10); RED CELL DISTRIBUTION WIDTH 11.7 % (11.6-14.8); WHITE BLOOD COUNT 12.8 K/UL (4.8-10.8)
--- NOTE | 2019-09-05 07:30 | NUR ---
HAND-OFF: Report given to Davide BADILLO.
--- NOTE | 2019-09-05 07:30 | NUR ---
NURSE NOTES: Report received from Ashia BADILLO. Patient is not alert and is non verbal. This is not a new status for the patient. Patient noted to have Vital AF 1.2 running at 65 cc / hr. This is the goal rate. Patient noted to have a left soft wrist restraint due to patient pulling at lines. No edema noted. Pulse present. Patient able to move fingers. Patient noted to be a fall risk, endorsed that patient frequently throws leg out of bed. printing assistant aware, bed alarm on, bed in lowest position and locked. Will continue to follow plan of care.
[2019-09-05 08:00] VITALS: BP 185/90
[2019-09-05] MEDS: Minoxidil 2.5mg tab ORAL PRN ×3 (08:09→20:40)
[2019-09-05] MEDS: Aspirin Baby 81mg NG SCH (08:09)
[2019-09-05] MEDS: metFORMIN 500mg tab NG SCH ×2 (08:10→17:22)
[2019-09-05] MEDS: Lisinopril 20mg tab NG SCH (08:10)
[2019-09-05 12:00] VITALS: BP 162/84
--- NOTE | 2019-09-05 12:19 | Infectious Diseases Prog Note ---
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 Aphasia R hemiplegia Leukocytosis Deep tissue injury improving RECOMMENDATION: Observe off antibiotic f/u CBC Subjective ROS Limited/Unobtainable: Yes Neurologic: Reports: confusion, other - on restraint Allergies: Coded Allergies: UNABLE TO ASSESS (Unverified , 06/18/19) Objective Vital Signs Last 24 Hour Vital Signs Date Time Temp Pulse Resp B/P (MAP) Pulse Ox O2 Delivery O2 Flow Rate FiO2 09/05/19 10:41 71 164/78 09/05/19 09:21 95 Room Air 21 09/05/19 09:00 Room Air 09/05/19 08:10 185/90 09/05/19 08:09 185/90 09/05/19 08:00 97.7 76 20 185/90 (121) 95 09/05/19 04:00 98.3 75 21 147/80 (102) 95 09/05/19 00:00 98.0 82 21 147/52 (83) 98 09/04/19 21:06 Room Air 09/04/19 20:00 96 Room Air 21 09/04/19 20:00 98.3 74 21 153/79 (103) 95 09/04/19 16:00 98.0 83 18 139/86 (103) 98 Height (Feet): 5 Height (Inches): 8.00 Weight (Pounds): 167 General Appearance: no acute distress Respiratory/Chest: lungs clear Cardiovascular: normal rate Abdomen: soft, non tender, other - GT in place Extremities: no edema Neurologic/Psychiatric: aphasia Laboratory Tests Test 09/05/19 06:00 White Blood Count 12.8 K/UL (4.8-10.8) H Red Blood Count 4.98 M/UL (4.70-6.10) Hemoglobin 15.4 G/DL (14.2-18.0) Hematocrit 43.2 % (42.0-52.0) Mean Corpuscular Volume 87 FL (80-99) Mean Corpuscular Hemoglobin 31.0 PG (27.0-31.0) Mean Corpuscular Hemoglobin Concent 35.7 G/DL (32.0-36.0) Red Cell Distribution Width 11.7 % (11.6-14.8) Platelet Count 331 K/UL (150-450) Mean Platelet Volume 5.6 FL (6.5-10.1) L Neutrophils (%) (Auto) 65.3 % (45.0-75.0) Lymphocytes (%) (Auto) 27.7 % (20.0-45.0) Monocytes (%) (Auto) 4.8 % (1.0-10.0) Eosinophils (%) (Auto) 1.6 % (0.0-3.0) Basophils (%) (Auto) 0.6 % (0.0-2.0) Current Medications Medications (Trade) Dose Ordered Sig/Leonor Route PRN Reason Start Time Stop Time Status Last Admin Dose Admin Acetaminophen (Tylenol) 650 mg Q4H PRN NG Mild Pain/Temp > 100.5 08/28/19 13:45 09/27/19 13:44 Amlodipine Besylate (Norvasc) 5 mg Q12H PRN NG high blood pressure 08/20/19 16:15 09/19/19 08:29 09/05/19 10:41 Aspirin (ASA) 162 mg DAILY NG 08/17/19 10:00 09/16/19 09:59 09/05/19 08:09 Dextrose (Dextrose 50%) 25 ml Q30M PRN IV Hypoglycemia 08/08/19 11:45 09/07/19 11:44 Dextrose (Dextrose 50%) 50 ml Q30M PRN IV Hypoglycemia 08/08/19 11:45 09/07/19 11:44 Lisinopril (PriniviL) 20 mg DAILY NG 08/20/19 16:05 09/19/19 16:04 09/05/19 08:10 Loperamide HCl (Imodium) 2 mg Q6H PRN NG Diarrhea 08/28/19 13:45 09/27/19 13:44 Metformin HCl (Glucophage) 500 mg BID NG 08/17/19 10:00 09/16/19 09:59 09/05/19 08:10 Minoxidil (Loniten) 2.5 mg Q4H PRN ORAL For SBP>160 08/28/19 13:30 09/27/19 13:29 09/05/19 08:09 Bob Gilmore MD Sep 05, 2019 12:18
--- NOTE | 2019-09-05 13:15 | NUR ---
CASE MANAGEMENT:REVIEW SI; LEFT MCA CVA. HEMIPLEGIA. APHASIA. HTN. 98.3 82 21 185/90 95% ON RA WBC 12.8 IS; ASA GT QD LONITEN GT Q4 HRS PRN SBP >160 NORVASC GT BID LISINOPRIL GT QD MED SURG STATUS DCP; SNF PLACEMENT WHEN ACCEPTED TO A FACILITY
--- NOTE | 2019-09-05 14:55 | NUR ---
*-* DISCHARGE PLANNING *-* PATIENT HAS BEEN REFERRED TO: 1. [facility] P: [phone] F: [phone] 2. [facility] P: [phone] F: [phone]
[2019-09-05 16:00] VITALS: BP 132/82
--- NOTE | 2019-09-05 17:29 | NUR ---
DISCHARGE PLANNING NOTE PER AGATHA AT [facility], PATIENT HAS BEEN ACCEPTED WITH FOLLOWING ROOM ASSIGNMENT 206-A LONGTERM PATIENT WILL TRANSFER TO SNF Thursday09/06/2019 PER AGATHA
--- NOTE | 2019-09-05 19:20 | NUR ---
HAND-OFF: Report given to Dimple BADILLO. Endorsed that patient is a high fall risk due to AMS.
[2019-09-05 20:00] VITALS: BP 190/102
--- NOTE | 2019-09-05 20:03 | NUR ---
NURSE NOTES: Received patient in bed, awake, non-verbal. Patient opens his eyes spontaneously. No s/s of pain or discomfort @ this time. On GT feeding, GT is patent, patient tolerating well. No IV access, MD aware. Patient is on left soft wrist restraints. Pulse presents. HOB elevated to prevent aspiration. Bed is in lowest position and locked. Will continue plan of care.
--- NOTE | 2019-09-05 22:12 | General Progress Note ---
Assessment/Plan Problem List: (1) Cellulitis of right hand ICD Codes: L03.113 - Cellulitis of right upper limb SNOMED: 29759951 (2) Altered level of consciousness ICD Codes: R40.4 - Transient alteration of awareness SNOMED: 2939654 (3) Sepsis ICD Codes: A41.9 - Sepsis, unspecified organism SNOMED: 92497538 Qualifiers: Qualified Codes: A41.9 - Sepsis, unspecified organism (4) Left middle cerebral artery stroke ICD Codes: I63.512 - Cerebral infarction due to unspecified occlusion or stenosis of left middle cerebral artery SNOMED: 765989668 (5) Left carotid artery occlusion ICD Codes: I65.22 - Occlusion and stenosis of left carotid artery SNOMED: 748178221913969 (6) Hypernatremia Assessment & Plan: better ICD Codes: E87.0 - Hyperosmolality and hypernatremia SNOMED: 519065300 (7) Hypokalemia Assessment & Plan: better ICD Codes: E87.6 - Hypokalemia SNOMED: 09651480 (8) DM (diabetes mellitus) Assessment & Plan: ok ICD Codes: E11.9 - Type 2 diabetes mellitus without complications SNOMED: 34645876 (9) ARF (acute renal failure) Assessment & Plan: ok ICD Codes: N17.9 - Acute kidney failure, unspecified SNOMED: 07806684 (10) Hypertension ICD Codes: I10 - Essential (primary) hypertension SNOMED: 89985552 (11) Aspiration pneumonia ICD Codes: J69.0 - Pneumonitis due to inhalation of food and vomit SNOMED: 516695384 (12) UTI (urinary tract infection) ICD Codes: N39.0 - Urinary tract infection, site not specified SNOMED: 85018504 Status: stable, unchanged Assessment/Plan: watch BP follow BS await placement Subjective Allergies: Coded Allergies: UNABLE TO ASSESS (Unverified , 06/18/19) Subjective seen earlier today in NAD Objective Last 24 Hour Vital Signs Date Time Temp Pulse Resp B/P (MAP) Pulse Ox O2 Delivery O2 Flow Rate FiO2 09/05/19 21:29 Room Air 09/05/19 20:40 190/102 09/05/19 20:29 96 Room Air 21 09/05/19 20:00 97.7 89 17 190/102 (131) 96 09/05/19 16:30 Room Air 09/05/19 16:00 97.2 89 20 132/82 (99) 96 09/05/19 16:00 117 09/05/19 15:13 162/84 09/05/19 12:00 96 09/05/19 12:00 97.4 69 20 162/84 (110) 96 09/05/19 10:41 71 164/78 09/05/19 09:21 95 Room Air 21 09/05/19 09:00 Room Air 09/05/19 08:10 185/90 09/05/19 08:09 185/90 09/05/19 08:00 106 09/05/19 08:00 97.7 76 20 185/90 (121) 95 09/05/19 04:00 98.3 75 21 147/80 (102) 95 09/05/19 00:00 98.0 82 21 147/52 (83) 98 Intake and Output 09/04/19 09/05/19 19:00 07:00 Intake Total 1080 ml 800 ml Balance 1080 ml 800 ml Free Water 300 ml 150 ml Tube Feeding 780 ml 650 ml # Bowel Movements 2 Laboratory Tests 09/05/19 06:00: White Blood Count 12.8H, Red Blood Count 4.98, Hemoglobin 15.4, Hematocrit 43.2 , Mean Corpuscular Volume 87, Mean Corpuscular Hemoglobin 31.0, Mean Corpuscular Hemoglobin Concent 35.7, Red Cell Distribution Width 11.7, Platelet Count 331, Mean Platelet Volume 5.6L, Neutrophils (%) (Auto) 65.3, Lymphocytes ( %) (Auto) 27.7, Monocytes (%) (Auto) 4.8, Eosinophils (%) (Auto) 1.6, Basophils (%) (Auto) 0.6 Height (Feet): 5 Height (Inches): 8.00 Weight (Pounds): 167 Cardiovascular: normal rate Respiratory/Chest: lungs clear Kaz Gilmore MD Sep 05, 2019 22:12
--- NOTE | 2019-09-05 23:02 | General Progress Note ---
Assessment/Plan Status: stable, unchanged Assessment/Plan: Assessment - Acute CVA - AMS - Dysphagia - s/p GT - beto-arrhythmia - HTN Recommendations - IVF - monitor labs - elevate HOB - abx per ID - Off Reglan - Rx BP - d/c planning Subjective Allergies: Coded Allergies: UNABLE TO ASSESS (Unverified , 06/18/19) Subjective above noted NAD Confused tolerating TF Objective Last 24 Hour Vital Signs Date Time Temp Pulse Resp B/P (MAP) Pulse Ox O2 Delivery O2 Flow Rate FiO2 09/05/19 21:29 Room Air 09/05/19 20:40 190/102 09/05/19 20:29 96 Room Air 21 09/05/19 20:00 97.7 89 17 190/102 (131) 96 09/05/19 16:30 Room Air 09/05/19 16:00 97.2 89 20 132/82 (99) 96 09/05/19 16:00 117 09/05/19 15:13 162/84 09/05/19 12:00 96 09/05/19 12:00 97.4 69 20 162/84 (110) 96 09/05/19 10:41 71 164/78 09/05/19 09:21 95 Room Air 21 09/05/19 09:00 Room Air 09/05/19 08:10 185/90 09/05/19 08:09 185/90 09/05/19 08:00 106 09/05/19 08:00 97.7 76 20 185/90 (121) 95 09/05/19 04:00 98.3 75 21 147/80 (102) 95 09/05/19 00:00 98.0 82 21 147/52 (83) 98 Intake and Output 09/04/19 09/05/19 19:00 07:00 Intake Total 1080 ml 800 ml Balance 1080 ml 800 ml Free Water 300 ml 150 ml Tube Feeding 780 ml 650 ml # Bowel Movements 2 Laboratory Tests 09/05/19 06:00: White Blood Count 12.8H, Red Blood Count 4.98, Hemoglobin 15.4, Hematocrit 43.2 , Mean Corpuscular Volume 87, Mean Corpuscular Hemoglobin 31.0, Mean Corpuscular Hemoglobin Concent 35.7, Red Cell Distribution Width 11.7, Platelet Count 331, Mean Platelet Volume 5.6L, Neutrophils (%) (Auto) 65.3, Lymphocytes ( %) (Auto) 27.7, Monocytes (%) (Auto) 4.8, Eosinophils (%) (Auto) 1.6, Basophils (%) (Auto) 0.6 Height (Feet): 5 Height (Inches): 8.00 Weight (Pounds): 167 Objective Elderly man awake, looks at NCAT supple Coarse ronchi RR abd soft, (+) GT no edema Barb Lee MD Sep 05, 2019 23:02
[2019-09-06] VITALS: BP 136/90
[2019-09-06 04:00] VITALS: BP 147/87
--- NOTE | 2019-09-06 07:07 | NUR ---
HAND-OFF: Report given to JUSTINO Augustine.
--- NOTE | 2019-09-06 07:08 | NUR ---
NURSE NOTES: Report received from Dimple BADILLO. Patient is not alert and is non verbal. This is not a new status for the patient. Patient noted to have Vital AF 1.2 running at 65 cc / hr. This is the goal rate. Patient noted to have a left soft wrist restraint due to patient pulling at lines. No edema noted. Pulse present. Patient able to move fingers. Patient noted to be a fall risk, endorsed that patient frequently throws leg out of bed. melter assistant aware, bed alarm on, bed in lowest position and locked. Will continue to follow plan of care.
[2019-09-06 08:00] VITALS: BP 178/88
[2019-09-06] MEDS: Aspirin Baby 81mg NG SCH (08:26)
[2019-09-06] MEDS: Minoxidil 2.5mg tab ORAL PRN (08:27)
[2019-09-06] MEDS: Lisinopril 20mg tab NG SCH (08:27)
[2019-09-06] MEDS: metFORMIN 500mg tab NG SCH (08:27)
--- NOTE | 2019-09-06 09:36 | NUR ---
MULTI SKILLED OPERATOR NOTE PATIENT TO BE DISCHARGED TO [facility] ROOM #206-A UNDER RESIDENTIAL CARE. DR Maame LY INFORMED. S AMBULANCE TRANSPORTATION SCHEDULED WITH [facility] EXT 0915 WITH ETA @ 1100 AM CHARGE NURSE DERIK VO INFORMED.
[2019-09-06 10:41] VITALS: BP 138/84
--- NOTE | 2019-09-06 12:12 | NUR ---
NURSE NOTES: [facility] here to transfer patient to [facility]. Report given to Samira at [facility]. Clarified that patient has a high blood pressure at baseline. Patient has blood pressure medications ordered through out day. Patient was cleared by [facility] supervisor powder and primer canning Anup to be transferred. Patient is non alert and nonverbal. This is not a new status for the patient. Patient has right sided weakness. This is not a new finding for the patient. Patient has no IV access. G tube was flushed. Patent. and clamped. Endorsed to [facility] workers to watch for patient to pull at tube during transfer. Patient safely transferred to [facility]. Belongings given to [facility] workers. Care for patient to end at this time.
--- NOTE | 2019-09-06 20:00 | General Progress Note ---
Assessment/Plan Status: stable, unchanged Assessment/Plan: Assessment - Acute CVA - AMS - Dysphagia - s/p GT - beto-arrhythmia - HTN Recommendations - IVF - monitor labs - elevate HOB - abx per ID - Off Reglan - Rx BP - d/c planning Subjective Allergies: Coded Allergies: UNABLE TO ASSESS (Unverified , 06/18/19) Subjective above noted NAD Confused tolerating TF for discharge today Objective Last 24 Hour Vital Signs Date Time Temp Pulse Resp B/P (MAP) Pulse Ox O2 Delivery O2 Flow Rate FiO2 09/06/19 10:41 97.8 85 18 138/84 (102) 94 09/06/19 09:00 Room Air 09/06/19 08:27 178/88 09/06/19 08:27 178/88 09/06/19 08:00 97.8 85 18 178/88 (118) 94 09/06/19 07:34 96 Room Air 21 09/06/19 04:00 97.8 102 18 147/87 (107) 94 09/06/19 00:00 97.5 103 17 136/90 (105) 96 09/05/19 21:29 Room Air 09/05/19 20:40 190/102 09/05/19 20:29 96 Room Air 21 Intake and Output 09/05/19 09/06/19 19:00 07:00 Intake Total 1015 ml 850 ml Balance 1015 ml 850 ml Free Water 300 ml 200 ml Tube Feeding 715 ml 650 ml # Voids 3 7 # Bowel Movements 2 2 Height (Feet): 5 Height (Inches): 8.00 Weight (Pounds): 167 Objective Elderly man awake, looks at NCAT supple Coarse ronchi RR abd soft, (+) GT no edema Barb Lee MD Sep 06, 2019 20:00
--- NOTE | 2019-09-08 13:27 | Discharge Summary ---
Discharge Summary Discharge Summary _ DATE OF ADMISSION: 06/18/2019 DATE OF DISCHARGE: 09/06/2019 DISCHARGED BY: Dr. Kaz Gilmore REASON FOR ADMISSION: 74 years old male with past medical history of hypertension , was brought in due to altered mental status. Patient was found by his neighbors on the morning of transfer. Patient was unable to provide any history in emergency department. Vital signs revealed tachycardia with heart rate 110, no fevers. Blood pressure was 220/97 . Pulse oximetry 100% on room air. Laboratory work-up revealed leukocytosis with WBC 15.9, hemoglobin 17.7, hematocrit 49.9, platelet count 221. Sodium 147, potassium 3.3. BUN 16, creatinine 1.2. Glucose 155. Stable LFT. Troponin 0.053. Albumin 3.5. Serum alcohol ,Tylenol ,and salicylate level were all negative. Urinalysis revealed +4 protein , no evidence of urinary tract infection. Urine toxicology screen was negative. Magnesium 1.9. Lactic acid 4.8. EKG revealed sinus tachycardia with bigeminy. Chest x-ray demonstrated interstitial congestion , no focal consolidation, consider pneumonitis. CT of the head revealed no acute intracranial pathology X-ray of the right hand was done due to right hand swelling and induration and revealed no dislocation, no soft tissue swelling, no fracture. Moderate degenerative changes noted. Noted laceration between second and third fingers on the left hand. Tetanus updated. Wound irrigated. Laceration repaired. Septic work-up initiated. Patient received fluid bolus, pancultured and started on empiric antibiotic. Patient received hydralazine IV x2 and enalapril with blood pressure slowly improving. Patient subsequently admitted for further management. CONSULTANTS: overedger Dr. Melgar pulmonary Dr. Borges ID specialist Dr. Bob Gilmore GI specialist Dr. Lee psychiatrist [facility] COURSE: Patient admitted and started on empiric antibiotic. NG tube was placed for medications and tube feeding. Aspiration precautions maintained. Potassium was repleted. Patient was on hypotonic IV solution. MRI of the brain revealed large left middle cerebral artery distribution infarct , presumably related to absence of flow within the left internal carotid artery and left middle cerebral artery , indicative of occlusion of this vessel. This resulted in mass-effect and midline shift. No acute hemorrhage. Antiplatelet therapy with aspirin provided. Echocardiogram demonstrated preserved ejection fraction 65 to 70% with evidence of mild left ventricular hypertrophy. Moderate pericardial effusion. Right ventricular systolic pressure of 10.. First troponin negative , second troponin showed minimal elevation-0.124 , and the last troponin 0.058. Troponin elevation was likely due to demand ischemia , brought by acute CVA and was slowly decreasing due to renal insufficiency,as per overedger. Patient had frequent PVC , bigeminy and had a short run of nonsustained ventricular tachycardia on 07/01 . Patient started on low-dose of metoprolol for blood pressure control and arrhythmia. No further evidence of ventricular arrhythmias. Blood pressure was managed with DIETER inhibitor , beta-jones , calcium channel jones. Minoxidil was on board as needed for blood pressure spikes. Nitroglycerin was on board as needed. Blood pressure stabilized , and prior to discharge 138/84. Licensed Prosthetist followed. Patient demonstrated respiratory distress. Supplemental oxygen provided and titrated to keep pulse oximetry above 92%. Nebulizing treatment provided with bronchodilator provided [id number] and as needed. Patient was followed-up with chest x-ray. Blood cultures initial and repeated were negative. Urine culture revealed Pseudomonas. Repeated urine culture revealed mixed gram- positive organisms. Patient completed antibiotic for treatment of aspiration pneumonia and probably UTI as per ID specialist recommendation. ID specialist recommended to observe patient off antibiotics. Leukocytosis was trending down , patient remained afebrile. Prior to discharge pulse oximetry stable on room air. Nutrition initially provided via NT tube with strict aspiration precautions. Bedside swallow evaluation revealed high risk for dysphasia and silent aspiration. Speech therapist recommended video swallow evaluation, when more alert and stable. Patient started on skilled dysphagia management as per speech therapist. Speech therapist recommended to continue with nonoral feeding at this time via NG tube and oral care. GI specialist followed. Patient undergone on 07/01 EGD and PEG placement. The next morning patient started on tube feeding. Tube feeding formula with goal rate provided as per acute care registered nurse recommendation. G-tube site care provided. Strict aspiration precaution maintained. Antiemetic were on board as needed. Patient initially started on Reglan to improve tube feeding tolerance. However patient developed diarrhea. Stool for C. difficile was negative, done on 3 different occasions. Imodium provided as needed. Reglan eventually stopped . Abdominal ultrasound was unremarkable for acute findings. Patient was able to tolerate tube feeding. Diarrhea subsided. Patient developed acute renal failure with BUN 87 and creatinine 1.9. Patient was on IV fluids. Renal parameters and electrolytes were closely monitored. Electrolytes corrected as needed and nephrotoxins were avoided. Prior to discharge BUN 27 and creatinine down to 0.7. Blood sugar was managed with metformin and sliding scale of insulin as needed. Repeated CT head was done on 07/22 and showed late subacute/chronic infarct involving portion of the left frontal temporal and parietal old left MCA territory with some signs of encephalomalacia or volume loss (acute CVA was documented a month prior on MRI). No obvious new cortical territorial infarct identified. Old infarct right temporal lobe. Moderate to severe atrophy of the brain. Last chest x-ray showed right basilar atelectasis , no acute process otherwise Pulse oximetry was stable on room air. No further arrhythmias. Supportive care provided. DVT and GI prophylaxis provided. [facility] Pl[facility] was challenging. Placement was finally found and secured at the [facility] under long-term care. Patient was stable for transfer. 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 DISCHARGE INSTRUCTIONS: [facility] was [facility] to [facility] jail facility. Follow up with medical doctor at the facility. I have been assigned to dictate discharge summary for this account. I was not involved in the patient's management. Shari Alvarez NP Sep 08, 2019 13:27
== END 2019-09-06 12:12 | DRG 45 ==
LOC: EDBD 08:30 → EMR 09:03 → EDBEDREQ 09:55 → EDBEDREQSVC 09:55 → EDBEDREQ 10:18 → 2W 10:20 → EDBD 10:20 → 2W 06-20 00:43 → 4E 06-21 16:00 → 2E 06-21 17:46 → 3E 07-05 05:34 → 2E 07-22 14:56 → 4E 07-28 17:49
PROC: 0HQGXZZ Repair Left Hand Skin, External Approach (ICD-10-PCS; principal; 2019-06-18)
PROC: 0DH63UZ Insertion of Feeding Device into Stomach, Percutaneous Approach (ICD-10-PCS; 2019-07-01)
PROC: 0CCM8ZZ Extirpation of Matter from Pharynx, Via Natural or Artificial Opening Endoscopic (ICD-10-PCS; 2019-07-01)
PROC: 0DJ08ZZ Inspection of Upper Intestinal Tract, Via Natural or Artificial Opening Endoscopic (ICD-10-PCS; 2019-07-01)
DX: I63.89 Other cerebral infarction (principal); A41.9 Sepsis, unspecified organism; I10 Essential (primary) hypertension; J69.0 Pneumonitis due to inhalation of food and vomit; I16.0 Hypertensive urgency; L03.113 Cellulitis of right upper limb; S61.412A Laceration without foreign body of left hand, initial encounter; X58.XXXA Exposure to other specified factors, initial encounter; Y92.9 Unspecified place or not applicable; E87.6 Hypokalemia; G93.41 Metabolic encephalopathy; E11.9 Type 2 diabetes mellitus without complications; R13.10 Dysphagia, unspecified; E87.0 Hyperosmolality and hypernatremia; I47.1 Supraventricular tachycardia; I69.320 Aphasia following cerebral infarction; I69.354 Hemiplegia and hemiparesis following cerebral infarction affecting left non-dominant side; R00.1 Bradycardia, unspecified; N17.9 Acute kidney failure, unspecified; N39.0 Urinary tract infection, site not specified; B96.5 Pseudomonas (aeruginosa) (mallei) (pseudomallei) as the cause of diseases classified elsewhere; K29.70 Gastritis, unspecified, without bleeding; T18.0XXA Foreign body in mouth, initial encounter; Y92.239 Unspecified place in hospital as the place of occurrence of the external cause; I24.8 Other forms of acute ischemic heart disease
CPT/HCPCS: 36415; 36600; 70450; 70551; 71045; 74018; 74176; 76700; 80048; 80053; 80202; 80307; 81001; 81003; 82140; 82550; 82607; 82746; 82803; 82962; 83036; 83605; 83735; 83880; 84100; 84443; 84484; 84550; 85007; 85025; 85610; 85730; 86140; 86850; 86900; 86901; 87040; 87086; 87181; 87324; 90471; 90715; 93005; 93306; 94003; 94150; 94640; 94664; 96361; 96365; 96367; 96372; 96375; 99291; G0480; J1815; J7030; J7620; J8499

== ENCOUNTER 2019-09-16 21:41 | Emergency (ER) | payer MEDICAID ==
[~2019-09-16] VITALS: Ht 177.8 cm; Wt 72.6 kg
[~2019-09-16 21:41] MED LIST: ASPIRIN81 MG NG; Acetaminophen NG; GLUCOPHAGE500 MG NG; LONITEN2.5 MG ORAL; LOPERAMIDE1 MG/7.5 M NG; NORVASC5 MG NG; PRINIVIL20 MG NG
--- NOTE | 2019-09-16 21:50 | NUR ---
ED Nurse Note: Recieved pt from SNF with c/o G-Tube needs replacement and out x 2 hours, pt has [facility] left abdomen[facility] will resume care and continue to monitor while waiting for x-ray and pt disposition, no other ocmplaitns or distress noted.
--- NOTE | 2019-09-16 22:15 | NUR ---
ED Nurse Note: Post x-ray completed, g-tube flushed with h2o after, no resistance, waiting for results and pt disposition, pt resting quietly in bed. nad noted.
--- NOTE | 2019-09-16 22:18 | Emergency Room Report ---
History of Present Illness General Chief Complaint: Malfunctioning Gastric Tube Present Illness HPI 74-year-old male history of stroke, G-tube dependence presents for a dislodged G -tube. No other complaints at this time. Patient nonverbal and unable to provide any further history.. Allergies: Coded Allergies: No Known Allergies (Unverified , 09/16/19) UNABLE TO ASSESS (Unverified , 06/18/19) COVID-19 Screening Contact w/high risk pt: No Recent Travel to affected area: No Experienced COVID-19 symptoms?: No Patient History Reviewed Nursing Documentation: PMH: Agreed; PSxH: Agreed Nursing Documentation-PMH Hx Hypertension: Yes Hx Diabetes: Yes Hx Cerebrovascular Accident: Yes Review of Systems All Other Systems: limited Physical Exam Vital Signs Date Time Temp Pulse Resp B/P (MAP) Pulse Ox O2 Delivery O2 Flow Rate FiO2 09/16/19 21:34 97.7 88 18 148/93 (111) 97 Room Air Sp02 EP Interpretation: reviewed, normal General Appearance: well appearing, no apparent distress Head: normocephalic, atraumatic Eyes: bilateral eye PERRL, bilateral eye EOMI ENT: hearing grossly normal, moist mucus membranes Neck: full range of motion, supple Respiratory: lungs clear, normal breath sounds, no rhonchi, no respiratory distress, no retraction, no wheezing Cardiovascular #1: normal peripheral pulses, regular rate, rhythm, no murmur Gastrointestinal: non tender, soft, non-distended, no guarding, other - Gastrostomy site left upper quadrant Neurologic: alert, other - No focal deficits appreciated Skin: normal color, warm/dry Procedures Additional Procedure Procedure Narrative Gastrostomy tube insertion Emergent consent implied, a 14 Tajik gastrostomy tube was placed in an existing gastrostomy site. Patient tolerated procedure well without complication. Placement confirmed by x-ray. Medical Decision Making Diagnostic Impression: Primary Impression: Dislodged gastrostomy tube ER Course Patient presents for dislodged gastrostomy tube. Replaced by me. Placement confirmed by x-ray. Patient stable for [facility] back to [facility] facility. Other X-Ray Diagnostic Results Other X-Ray Diagnostic Results : X-Ray ordered: KUB # of Views/Limited Vs Complete: 1 View Indication: Other - Gastrostomy tube insertion Impression: Other - Gastrostomy tube in appropriate position Electronically Signed by: Farhad Thornton MD Last Vital Signs Date Time Temp Pulse Resp B/P (MAP) Pulse Ox O2 Delivery O2 Flow Rate FiO2 09/16/19 21:34 97.7 88 18 148/93 (111) 97 Room Air Disposition: SNF Condition: Stable Farhad Thornton M.D. Sep 16, 2019 22:18
--- NOTE | 2019-09-16 22:29 | Diagnostic Imaging Report ---
EXAM: XR Abdomen, 2 Views CLINICAL HISTORY: PAIN TECHNIQUE: Frontal view of the abdomen/pelvis with upright view of the abdomen. COMPARISON: 07/30/2019 CT abdomen and pelvis FINDINGS: Limitations: Otherwise limited evaluation of visualized structures. Tubes, lines and devices: Percutaneous gastrostomy tube positioned appropriately, contrast injection opacifies stomach and small bowel structures. No extraluminal contrast seen. Osteopenia. Mild degenerative spine findings. IMPRESSION: 1. Percutaneous gastrostomy tube positioned appropriately, contrast injection opacifies stomach and small bowel structures. No extraluminal contrast seen. 2. Otherwise limited evaluation of visualized structures. 3. If there is further concern for chest or abdomen pathology, recommend dedicated imaging.
--- NOTE | 2019-09-16 22:43 | NUR ---
ED Nurse Note: spoke with JUSTINO sargent from [facility]. informed that patient will be going back to facility
[2019-09-16] MEDS ORDERED: LORazepam Inj 2mg/ml 1ml IM ONE (23:15)
[2019-09-16 23:35] VITALS: BP 153/81
[2019-09-16] MEDS ORDERED: Haloperidol 5mg/ml Inj IM ONE (23:45)
--- NOTE | 2019-09-16 23:45 | NUR ---
ER DISCHARGE NOTE: Patient is cleared to be discharged per ERMD, pt is awake and alert, on room air, with stable vital signs. was given dc instructions to motor driver, pt id band removed without complications. pt took all belongings.
[2019-09-16 23:50] VITALS: BP 153/81
== END 2019-09-16 23:50 ==
LOC: EDBD 21:41 → EMR 22:16
DX: K94.23 Gastrostomy malfunction (principal); I10 Essential (primary) hypertension; E11.9 Type 2 diabetes mellitus without complications; Z86.73 Personal history of transient ischemic attack (TIA), and cerebral infarction without residual deficits
CPT/HCPCS: 43762; 74018; 96372; J1630; Z7502; 99283; 99284

== ENCOUNTER 2019-09-17 12:51 | Emergency (ER) | payer MEDICAID ==
[~2019-09-17] VITALS: Ht 175.3 cm; Wt 72.6 kg
[2019-09-17 12:56] VITALS: BP 148/86
--- NOTE | 2019-09-17 12:57 | NUR ---
ER Nurse Note: Pt brought in by ambulance from [facility] c/o pulling out g-tube at 1000. Size 16-18Fr g-tube. Per EMS, pt was in ER for same reason 09/15. VSS, no signs of chest pain, shortness of breath, fever, cough.
--- NOTE | 2019-09-17 13:07 | Emergency Room Report ---
History of Present Illness General Chief Complaint: Malfunctioning Gastric Tube Source: Medical Record, EMS Present Illness HPI Patient presents from alf facility after the G-tube was either pulled or fell out. They placed a [place] but then removed that at 10 AM. The patient is unable to speak because of a prior stroke. He has right hemiparesis. No alleged fever. He was seen last night and a gastrostomy tube was replaced at that time. Apparently a 14 Finnish was used. The patient was admitted June 18 of this year and discharged September 05. 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 Aspiration pneumonia Right hand cellulitis Pyuria/UTI Dysphagia Status post EGD and PEG placement Acute renal failure -resolved Diabetes mellitus Hypertension with initial hypertensive urgency - due to acute CVA Troponin elevation due to demand ischemia ( due to acute CVA) Aphasia Right hemiplegia Hypernatremia Hypokalemia Deep tissue injury Allergies: Coded Allergies: No Known Allergies (Unverified , 09/16/19) UNABLE TO ASSESS (Unverified , 06/18/19) COVID-19 Screening Contact w/high risk pt: Yes Recent Travel to affected area: No Experienced COVID-19 symptoms?: No Patient History Limited by: medical condition Past Medical History: see triage record, old chart reviewed Past Surgical History: other - Gastrostomy tube Social History: Denies: smoking Social History Narrative Enma Talamantes Reviewed Nursing Documentation: PMH: Agreed; PSxH: Agreed Nursing Documentation-PMH Hx Hypertension: Yes Hx Diabetes: Yes Hx Cerebrovascular Accident: Yes Review of Systems All Other Systems: limited Physical Exam Vital Signs Date Time Temp Pulse Resp B/P (MAP) Pulse Ox O2 Delivery O2 Flow Rate FiO2 09/17/19 12:53 98.8 88 16 148/86 (106) 96 Room Air Sp02 EP Interpretation: reviewed, normal General Appearance: thin, Chronically Ill Head: normocephalic Eyes: bilateral eye normal inspection, bilateral eye PERRL ENT: moist mucus membranes Neck: full range of motion Respiratory: lungs clear, normal breath sounds Cardiovascular #1: regular rate, rhythm Gastrointestinal: normal bowel sounds, non tender, other - G-tube site with minimal erythema no drainage Musculoskeletal: non-tender Neurologic: motor weakness - Right hemiparesis, aphasia, other - Ebulic Psychiatric: depressed affect Skin: warm/dry Procedures Additional Procedure Procedure Narrative Gastrostomy tube replacement: Initially attempted with 18 Finnish. Unable to pass. Lube applied to skin and 16 Finnish G-tube was passed. X-ray was ordered. Patient tolerated procedure well. Patient grasping at things with his left hand. Mitten ordered. Medical Decision Making Diagnostic Impression: Primary Impression: Gastrostomy tube dysfunction Additional Impression: Left middle cerebral artery stroke ER Course Patient presents after gastrostomy tube either fell or was pulled out. Patient needs gastrostomy tube replacement. He is afebrile and vital signs are stable. He does not appear dehydrated. There is no abdominal tenderness. 16 Finnish gastrostomy tube was replaced. Patient tolerated the procedure well. Abdominal film with Gastrografin ordered. Abdominal film with Gastrografin in the stomach and also throughout the bowels from the procedure yesterday. Patient grasping with his left hand. Mitten was ordered. This was not applied because there are none available in the emergency department. Advised ambulance crew to advised the alf facility that the patient needed to have a mitten on his left hand. Patient stable for outpatient observation and treatment. Other X-Ray Diagnostic Results Other X-Ray Diagnostic Results : X-Ray ordered: abd # of Views/Limited Vs Complete: 1 View Indication: Other EP Interpretation: Yes Last Vital Signs Date Time Temp Pulse Resp B/P (MAP) Pulse Ox O2 Delivery O2 Flow Rate FiO2 09/17/19 14:15 98.8 92 16 152/92 97 Room Air Status: improved Disposition: SNF Condition: Improved Mickey Brown MD Sep 17, 2019 13:07
--- NOTE | 2019-09-17 13:31 | NUR ---
ER Nurse Note: 16Fr G-tube placed by [place]. KUB taken and awaiting results. Will continue to montior.
[2019-09-17 14:15] VITALS: BP 152/92
--- NOTE | 2019-09-17 14:15 | NUR ---
ED Nurse Note: All orders completed per ERMD orders. G-tube in place. Pt cleared by health care Provider for discharge. DC instructions was given and explained to [facility] and verbalized understanding of teachings. All medical deviecs such as ID band removed. Pt is awake; left with all belongings.
--- NOTE | 2019-09-17 15:55 | Diagnostic Imaging Report ---
EXAM: XR Abdomen, 2 Views CLINICAL HISTORY: TUBE PLCMT TECHNIQUE: Frontal view of the abdomen/pelvis with upright view of the abdomen. COMPARISON: Abdominal radiograph on 09/16/2019 FINDINGS: Hardware: G-tube projected over the left upper quadrant. Abdomen: Nonobstructive bowel gas pattern with residual oral contrast in the colon and rectum. Contrast injected through the G-tube is noted within the stomach and proximal small bowel incorrect placement of the G- tube. Bones: Degenerative changes of the hips and spine. Soft tissues: Normal. Lower chest: Normal. IMPRESSION: Contrast injected through the G-tube is noted within the stomach and proximal small bowel incorrect placement of the G-tube.
== END 2019-09-17 14:15 ==
LOC: EDBD 12:51 → EMR 13:30
DX: K94.29 Other complications of gastrostomy (principal); E11.9 Type 2 diabetes mellitus without complications; I10 Essential (primary) hypertension; G81.91 Hemiplegia, unspecified affecting right dominant side
CPT/HCPCS: 43762; 74018; Q9963; Z7502; 99283; 99284

== ENCOUNTER 2019-11-11 02:06 | Inpatient (IN) | payer MEDICAID ==
[~2019-11-11] VITALS: Ht 182.9 cm; Wt 75.5 kg
[2019-11-11] MEDS ORDERED: LOPERAMIDE1 MG/7.5 M GT (02:15)
[2019-11-11] MEDS ORDERED: ZOFRAN4 M3 GT (02:15)
[2019-11-11] MEDS ORDERED: ACETAMINOPHEN325 M1 GT (02:15)
[2019-11-11] MEDS ORDERED: AMLODIPINE BESYL5 MG GT (02:15)
[2019-11-11] MEDS ORDERED: MULTIVITAMINS1 EAC8 GT (02:15)
[2019-11-11] MEDS ORDERED: ALBUTEROL2.5 MG/3 M INH (02:15)
[2019-11-11] MEDS ORDERED: MIRTAZAPINE7.5 MG GT (02:15)
[2019-11-11] MEDS ORDERED: FLOMAX0.4 MG GT (02:15)
--- NOTE | 2019-11-11 02:20 | Emergency Room Report ---
History of Present Illness General Chief Complaint: Dyspnea/Respdistress Source: Medical Record Present Illness HPI This is a 74-year-old male with multiple medical problems. He has a history of CVA, diabetes, hypertension and sepsis. He has a G-tube. He resides in a skilled nursing. He presents with respiratory distress and hypoxia. Onset for last few days but worse today. Per EMS he was in the 77% on room air. Oxygen was given and the patient was sent here. Patient has cough and congestion. Low -grade fever. History is limited as patient because of his condition. History is through EMS and nursing note. Allergies: Coded Allergies: No Known Allergies (Unverified , 09/16/19) UNABLE TO ASSESS (Unverified , 06/18/19) COVID-19 Screening Contact w/high risk pt: Yes Recent Travel to affected area: No Experienced COVID-19 symptoms?: Yes COVID-19 symptoms experienced: Shortness of Breath COVID-19 Testing performed IT SYSTEMS ANALYST CONSULTANT: No Patient History Past Medical History: see triage record, old chart reviewed, DM, HTN, CVA/TIA Past Surgical History: other - G-tube Pertinent Family History: none Social History: Denies: smoking Immunizations: other Reviewed Nursing Documentation: PMH: Agreed; PSxH: Agreed Nursing Documentation-PMH Hx Cardiac Problems: Yes Hx Hypertension: Yes Hx Pacemaker: No Hx Asthma: No Hx COPD: No Hx Diabetes: Yes Hx Cancer: No Hx Gastrointestinal Problems: No Hx Dialysis: No History Of Psychiatric Problem: Yes - depression Hx Neurological Problems: Yes - AMS, dementia, Hx Cerebrovascular Accident: Yes Hx Seizures: No Review of Systems Eye: Denies: eye pain, blurred vision ENT: Denies: ear pain, nose congestion, throat swelling Respiratory: Reports: cough, shortness of breath Cardiovascular: Denies: chest pain, palpitations Gastrointestinal: Denies: abdominal pain, diarrhea, nausea, vomiting Musculoskeletal: Denies: back pain, joint pain Skin: Denies: rash Neurological: Denies: headache, numbness Endocrine: Denies: increased thirst, increased urine Hematologic/Lymphatic: Denies: easy bruising All Other Systems: negative except mentioned in HPI Physical Exam Vital Signs Date Time Temp Pulse Resp B/P (MAP) Pulse Ox O2 Delivery O2 Flow Rate FiO2 11/11/19 01:59 98.4 136 26 140/86 (104) 95 Non-Rebreather 15.0 Vitals with hypoxia and tachycardia Sp02 EP Interpretation: reviewed, abnormal General Appearance: alert, moderate distress, Chronically Ill Head: normocephalic, atraumatic Eyes: bilateral eye PERRL, bilateral eye EOMI ENT: hearing grossly normal, normal pharynx Neck: full range of motion, supple, no meningismus Respiratory: chest non-tender, decreased breath sounds, crackles Cardiovascular #1: no murmur, tachycardia Gastrointestinal: normal bowel sounds, non tender, no mass, no organomegaly, no bruit, non-distended Musculoskeletal: back normal, normal range of motion, gait/station normal Neurologic: no pronator Skin: no rash Procedures Critical Care Time Critical Care Time Critical care is mandated in this patient who presented with severe respiratory distress secondary to ARDS. Patient require my urgent intervention to attenuate the risks of respiratory collapse which may lead to cardiovascular collapse and . Critical care time is 35 minutes excluding any reportable procedure. Critical care time included evaluation, multiple reevaluation, looking at old charts, interpreting laboratory and diagnostic data, discussing case with patient and family and consultants, and charting. Medical Decision Making Diagnostic Impression: Primary Impression: Sepsis Qualified Codes: A41.9 - Sepsis, unspecified organism; R65.20 - Severe sepsis without septic shock; J96.01 - Acute respiratory failure with hypoxia Additional Impressions: Respiratory failure with hypoxia Qualified Codes: J96.01 - Acute respiratory failure with hypoxia Suspected COVID-19 virus infection UTI (urinary tract infection) Qualified Codes: N30.00 - Acute cystitis without hematuria ARF (acute renal failure) Qualified Codes: N17.9 - Acute kidney failure, unspecified Anemia Qualified Codes: D64.9 - Anemia, unspecified ER Course Patient presents with hypoxemia. He most likely has COVID pneumonia. He has elevated d-dimer, ferritin, C-reactive protein. Antibiotics given here. Lovenox also given here. Prognosis poor based on patient medical condition and skilled nursing status. I discussed the case with Dr. Singh for admission. EKG Diagnostic Results Rate: tachycardiac Rhythm: NSR ST Segments: other - NSST changes Rhythm Strip Diag. Results EP Interpretation: yes Rate: 98 Rhythm: NSR, no PVC's, no ectopy Chest X-Ray Diagnostic Results Chest X-Ray Diagnostic Results : Chest X-Ray Ordered: Yes # of Views/Limited/Complete: 1 View Indication: Shortness of Breath EP Interpretation: Yes Interpretation: no effusion, no pneumothorax, other - b/l interstitial infiltrates Impression: Other - Interstitial infiltrates Electronically Signed by: Ezequiel García MD Last Vital Signs Date Time Temp Pulse Resp B/P (MAP) Pulse Ox O2 Delivery O2 Flow Rate FiO2 11/11/19 01:59 98.4 136 26 140/86 (104) 95 Non-Rebreather 15.0 Status: improved Disposition: ADMITTED INPATIENT Condition: Serious Ezequiel García MD November 11, 2019 02:20
[2019-11-11] MEDS ORDERED: Acetaminophen 650 MG SUPP RECTAL ONE (02:30)
[2019-11-11 02:39] VITALS: BP 140/86
[2019-11-11 02:52] LABS: APPEARANCE,URINE CLEAR; BILIRUBIN, URINE NEGATIVE (NEGATIVE); GLUCOSE, URINE (UA) NEGATIVE (NEGATIVE); KETONES,URINE NEGATIVE (NEGATIVE); LEUKOCYTE ESTERASE ,URINE 1+ (NEGATIVE); NITRITE,URINE NEGATIVE (NEGATIVE); PH,URINE 5 (4.5-8.0); PROTEIN,URINE 2+ (NEGATIVE); UROBILINOGEN,URINE NORMAL MG/DL (0.0-1.0)
[2019-11-11 02:54] LABS: HEMATOCRIT 27.8 % (42.0-52.0); HEMOGLOBIN 9.3 G/DL (14.2-18.0); MEAN CORPUSCULAR VOLUME 83 FL (80-99); PLATELET COUNT 392 K/UL (150-450); RED BLOOD COUNT 3.35 M/UL (4.70-6.10); RED CELL DISTRIBUTION WIDTH 12.9 % (11.6-14.8); WHITE BLOOD COUNT 20.4 K/UL (4.8-10.8)
[2019-11-11 03:04] LABS: ANION GAP 9 mmol/L (5-15); BLOOD UREA NITROGEN 69 mg/dL (7-18); CALCIUM 8.3 MG/DL (8.5-10.1); CARBON DIOXIDE 27 MMOL/L (21-32); CHLORIDE 109 MMOL/L (98-107); CREATININE 1.8 MG/DL (0.55-1.30); POTASSIUM 5.8 MMOL/L (3.5-5.1); SODIUM 145 MMOL/L (136-145)
[2019-11-11 03:07] LABS: COLOR,URINE YELLOW
[2019-11-11 03:20] LABS: ALANINE AMINOTRANSFERASE 39 U/L (12-78); ALBUMIN 1.8 G/DL (3.4-5.0); ALBUMIN/GLOBULIN RATIO 0.3 (1.0-2.7); ALKALINE PHOSPHATASE 93 U/L (46-116); ASPARTATE AMINO TRANSFERASE 39 U/L (15-37); BILIRUBIN,TOTAL 0.2 MG/DL (0.2-1.0); CKMB 0.8 NG/ML (0.0-3.6); CREATINE KINASE 39 U/L (26-308); FERRITIN 1339 NG/ML (8-388)
[2019-11-11] MEDS ORDERED: Azithromycin 500 MG in NS 275 ML IV ONE (03:30)
[2019-11-11] MEDS ORDERED: Cefepime HCl 1 GM in D5W 55 ML IVPB ONE (03:30)
[2019-11-11] MEDS ORDERED: Enoxaparin 80mg Inj SUBQ ONE (03:30)
[2019-11-11 03:58] VITALS: BP 132/60
--- NOTE | 2019-11-11 04:15 | Emergency Room Report ---
Sepsis Event Note Evaluation Current Stage of Sepsis: Sepsis Possible Source: Pulmonary Focused Exam Allergies: Coded Allergies: No Known Allergies (Unverified , 09/16/19) UNABLE TO ASSESS (Unverified , 06/18/19) Date Exam Occurred: November 11, 2019 Time Exam Occurred: 04:15 Laboratory Studies Laboratory Tests Test 11/11/19 02:30 White Blood Count 20.4 K/UL (4.8-10.8) H Red Blood Count 3.35 M/UL (4.70-6.10) L Hemoglobin 9.3 G/DL (14.2-18.0) L Hematocrit 27.8 % (42.0-52.0) L Mean Corpuscular Volume 83 FL (80-99) Mean Corpuscular Hemoglobin 27.9 PG (27.0-31.0) Mean Corpuscular Hemoglobin Concent 33.6 G/DL (32.0-36.0) Red Cell Distribution Width 12.9 % (11.6-14.8) Platelet Count 392 K/UL (150-450) Mean Platelet Volume 5.7 FL (6.5-10.1) L Neutrophils (%) (Auto) % (45.0-75.0) Lymphocytes (%) (Auto) % (20.0-45.0) Monocytes (%) (Auto) % (1.0-10.0) Eosinophils (%) (Auto) % (0.0-3.0) Basophils (%) (Auto) % (0.0-2.0) Differential Total Cells Counted 100 Neutrophils % (Manual) 78 % (45-75) H Lymphocytes % (Manual) 17 % (20-45) L Monocytes % (Manual) 5 % (1-10) Eosinophils % (Manual) 0 % (0-3) Basophils % (Manual) 0 % (0-2) Band Neutrophils 0 % (0-8) Platelet Estimate Adequate Platelet Morphology Normal D-Dimer 2.89 mg/L FEU (0.00-0.49) H Urine Color Yellow Urine Appearance Clear Urine pH 5 (4.5-8.0) Urine Specific [place] 1.015 (1.005-1.035) Urine Protein 2+ (NEGATIVE) H Urine Glucose (UA) Negative (NEGATIVE) Urine Ketones Negative (NEGATIVE) Urine Blood 5+ (NEGATIVE) H Urine Nitrite Negative (NEGATIVE) Urine Bilirubin Negative (NEGATIVE) Urine Urobilinogen Normal MG/DL (0.0-1.0) Urine Leukocyte Esterase 1+ (NEGATIVE) H Urine RBC 30-40 /HPF (0 - 0) H Urine WBC 0-2 /HPF (0 - 0) Urine Squamous Epithelial Cells None /LPF (NONE/OCC) Urine Bacteria Moderate /HPF (NONE) H Urine Coarse Granular Casts 0-2 /LPF (NONE) H Sodium Level 145 MMOL/L (136-145) Potassium Level 5.8 MMOL/L (3.5-5.1) H Chloride Level 109 MMOL/L (98-107) H Carbon Dioxide Level 27 MMOL/L (21-32) Anion Gap 9 mmol/L (5-15) Blood Urea Nitrogen 69 mg/dL (7-18) H Creatinine 1.8 MG/DL (0.55-1.30) H Estimat Glomerular Filtration Rate 37.3 mL/min (>60) Glucose Level 186 MG/DL (74-106) H Lactic Acid Level 1.80 mmol/L (0.4-2.0) Calcium Level 8.3 MG/DL (8.5-10.1) L Ferritin 1339 NG/ML (8-388) H Total Bilirubin 0.2 MG/DL (0.2-1.0) Aspartate Amino Transf (AST/SGOT) 39 U/L (15-37) H Alanine Aminotransferase (ALT/SGPT) 39 U/L (12-78) Alkaline Phosphatase 93 U/L (46-116) Total Creatine Kinase 39 U/L (26-308) Creatine Kinase MB 0.8 NG/ML (0.0-3.6) Creatine Kinase MB Relative Index 2.0 Troponin I 0.003 ng/mL (0.000-0.056) C-Reactive Protein, Quantitative 40.5 mg/dL (0.00-0.90) H Total Protein 7.6 G/DL (6.4-8.2) Albumin 1.8 G/DL (3.4-5.0) L Globulin 5.8 g/dL Albumin/Globulin Ratio 0.3 (1.0-2.7) L Vital Signs Last 24 Hour Vital Signs Date Time Temp Pulse Resp B/P (MAP) Pulse Ox O2 Delivery O2 Flow Rate FiO2 11/11/19 04:14 101.1 5/29/20 03:58 101.1 110 50 132/60 95 Non-Rebreather 15.0 11/11/19 02:39 101.1 145 40 140/86 95 Non-Rebreather 15.0 11/11/19 02:39 136 26 Non-Rebreather 15.0 11/11/19 01:59 98.4 136 26 140/86 (104) 95 Non-Rebreather 15.0 Respiratory Exam: Rhonchi Cardiovascular Exam: RRR Capillary Refill: Less Than 2 Seconds Peripheral Pulse: Strong Pulse Location: Radial Skin Exam: Normal Turgor Ezequiel García MD November 11, 2019 04:15
[2019-11-11] MEDS ORDERED: Acetaminophen 650 MG SUPP RECTAL PRN (04:30)
[2019-11-11 08:00] VITALS: BP 132/67
[2019-11-11 08:39] LABS: HEMATOCRIT 30.8 % (42.0-52.0); HEMOGLOBIN 10.5 G/DL (14.2-18.0); MEAN CORPUSCULAR VOLUME 82 FL (80-99); PLATELET COUNT 445 K/UL (150-450); RED BLOOD COUNT 3.74 M/UL (4.70-6.10); RED CELL DISTRIBUTION WIDTH 12.8 % (11.6-14.8); WHITE BLOOD COUNT 20.9 K/UL (4.8-10.8)
[2019-11-11 08:50] LABS: ANION GAP 9 mmol/L (5-15); BLOOD UREA NITROGEN 65 mg/dL (7-18); CARBON DIOXIDE 26 MMOL/L (21-32); CHLORIDE 112 MMOL/L (98-107); CREATININE 1.6 MG/DL (0.55-1.30); POTASSIUM 5.5 MMOL/L (3.5-5.1); SODIUM 147 MMOL/L (136-145)
[2019-11-11] MEDS ORDERED: Promethazine/Codeine 5ml UD ORAL PRN (09:00)
[2019-11-11] MEDS ORDERED: Nitroglycerin Subl 0.4mg tab SL PRN (09:00)
[2019-11-11] MEDS ORDERED: Albuterol/Ipratropium 3ml neb HHN PRN (09:00)
[2019-11-11] MEDS ORDERED: Miralax 17gm pkt ORAL PRN (09:00)
[2019-11-11 09:03] LABS: ALANINE AMINOTRANSFERASE 36 U/L (12-78); ALBUMIN 1.6 G/DL (3.4-5.0); ALBUMIN/GLOBULIN RATIO 0.3 (1.0-2.7); ALKALINE PHOSPHATASE 82 U/L (46-116); ASPARTATE AMINO TRANSFERASE 34 U/L (15-37); BILIRUBIN,TOTAL 0.3 MG/DL (0.2-1.0); CHOLESTEROL 70 MG/DL (< 200); GAMMA GLUTAMYL TRANSPEPTIDASE 55 U/L (5-85); HDL CHOLESTEROL 15 MG/DL (40-60); TRIGLYCERIDES 177 MG/DL (30-150)
[2019-11-11 09:05] LABS: PHOSPHORUS 4.9 MG/DL (2.5-4.9)
--- NOTE | 2019-11-11 09:21 | Diagnostic Imaging Report ---
Procedure: XRAY Chest 1v Reason for study: Reason For Exam: SOB Comparison films: 08/30/2019. FINDINGS: A single one view chest is obtained. Vascularity is normal. Bibasilar hazy infiltrates noted left greater than right. Cardiac and mediastinal silhouette are within normal limits. CP angles are sharp. The bony thorax appear unremarkable. IMPRESSION: Hazy basilar infiltrates left greater than right.
--- NOTE | 2019-11-11 09:24 | Consultation ---
Consult Note Consult Note I am asked to evaluate the patient at the request of Dr. Juan Dahl for renal failure. Patient is 74-year-old male with multiple medical problem. He has history of CVA diabetes mellitus hypertension and sepsis. He was at [facility] and was discharged last week of August 2019. He has a GT tube and he resides in a care home. Patient presents with shortness of breath difficulty in breathing and of low oxygenation. Upon his last discharge his renal parameters were normal. 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 SET UP WORKER: No Vital Signs Date Time Temp Pulse Resp B/P (MAP) Pulse Ox O2 Delivery O2 Flow Rate FiO2 11/11/19 01:59 101 136 26 140/86 (104) 95 Non-Rebreather 15.0 Vitals with hypoxia and tachycardia Sp02 EP Interpretation: reviewed, abnormal General Appearance: moderate distress, Chronically Ill Head: normocephalic, atraumatic Eyes: bilateral eye PERRL, bilateral eye EOMI ENT: non icteric Neck: Restricted movement to all direction Respiratory: Decreased breath sound over the bases few rhonchi Cardiovascular #1: Tachycardia occasionally irregular beats Gastrointestinal: GT tube in place, RN reports diarrhea Musculoskeletal: No gross deficit noted Neurologic: Lethargic Skin: no rash Assessment/Plan This 74-year-old male with multiple Multiple medical problem presents with respiratory symptoms and diarrhea Renal failure most likely prerenal azotemia secondary to dehydration Hyperkalemia on presentation also secondary to dehydration Sepsis pneumonia hypoxia UTI Anemia History of hypertension History of diabetes mellitus Suspected COVID-19 virus infection Hypoalbuminemia Suggestion: Hydrate with half-normal saline 100 cc an [id number] I spent an additional 36 minutes on review of medical records including prior hospital records,consult notes, progress notes, procedures ,imaging labs, hemodynamics, and other clinical documentation. Over 35 min Keep the blood pressure and blood sugar in check Monitor renal parameters Antibiotics per ID Urine studies Monitor intake and output Cultures including stool for C. difficile Per orders Patient's CODE STATUS is full I spent an additional 36 minutes on review of medical records including prior hospital records,consult notes, progress notes, procedures ,imaging labs, hemodynamics, and other clinical documentation. Over 35 min Ricardo Choudhary MD November 11, 2019 09:24
[2019-11-11] MEDS: Heparin 5000 units/ml inj SUBQ SCH ×2 (09:54→21:05)
[2019-11-11] MEDS: Tamsulosin 0.4mg cap ORAL SCH (09:55)
[2019-11-11 12:00] VITALS: BP 115/61
[2019-11-11] MEDS ORDERED: Vancomycin 1.25gm/NS Premix q24h IVPB SCH (13:00)
--- NOTE | 2019-11-11 13:35 | Consultation ---
History of Present Illness General Date patient seen: November 11, 2019 Chief Complaint: Dyspnea/Respdistress Present Illness HPI 74-year-old male with a history of large recent CVA, diabetes, hypertension and G-tube, skilled nursing resident presented to ER by paramedics with respiratory distress and hypoxia for the last few days but worse today. Per EMS he was in the 77% on room air. Patient has cough and congestion and l ow- grade fever. Patient is aphasic and unable to give any history. Allergies: Coded Allergies: No Known Allergies (Unverified , 09/16/19) UNABLE TO ASSESS (Unverified , 06/18/19) Medication History Scheduled Amlodipine Besylate* (Amlodipine Besylate*), 5 MG GT DAILY, (Reported) Aspirin* (Aspirin*), 162 MG NG DAILY Mirtazapine* (Mirtazapine*), 7.5 MG GT BEDTIME, (Reported) Multivitamin With Minerals (Multivitamins With Minerals*), 1 TAB GT DAILY, ( Reported) Tamsulosin HCl (Flomax), 0.4 MG GT DAILY, (Reported) Scheduled PRN Acetaminophen* (Acetaminophen 325MG Tablet*), 650 MG GT Q4H PRN for For Pain, ( Reported) Albuterol Sulfate* (Albuterol Sulfate Hhn*), 3 ML INH Q4H PRN for Shortness of Breath, (Reported) Amlodipine Besylate (Norvasc), 5 MG NG Q12H PRN Loperamide Hcl (Loperamide), 2 MG NG Q6H PRN Ondansetron* (Zofran*), 4 MG GT Q6H PRN for Nausea & Vomiting, (Reported) Miscellaneous Medications Loperamide Hcl (Loperamide), 1 MG GT, (Reported) Discontinued Medications Lisinopril* (Prinivil*), 20 MG NG DAILY Discontinued Reason: discontinued med Metformin Hcl* (Glucophage*), 500 MG NG BID Discontinued Reason: discontinued med Minoxidil (Minoxidil), 2.5 MG ORAL Q4H PRN Discontinued Reason: discontinued med [Acetaminophen], 650 MG NG Q4H PRN Discontinued Reason: discontinued med Patient History Healthcare decision maker Resuscitation status Advanced Directive on File Past Medical/Surgical History Past Medical/Surgical History: (1) Left carotid artery occlusion (2) Left middle cerebral artery stroke (3) DM (diabetes mellitus) (4) Hypertension Review of Systems All Other Systems: negative except mentioned in HPI Physical Exam General Appearance: thin Lines, tubes and drains: peripheral HEENT: normocephalic, atraumatic Neck: non-tender, normal alignment Respiratory/Chest: chest wall non-tender, lungs clear Breasts: no masses Abdomen: normal bowel sounds Last 24 Hour Vital Signs Date Time Temp Pulse Resp B/P (MAP) Pulse Ox O2 Delivery O2 Flow Rate FiO2 11/11/19 12:00 97.7 79 46 115/61 (79) 99 11/11/19 10:26 98.7 11/11/19 09:00 Non-Rebreather 15.0 11/11/19 08:00 98.7 80 46 132/67 (88) 98 11/11/19 08:00 98.1 80 46 132/67 (88) 98 11/11/19 05:14 Non-Rebreather 15.0 11/11/19 04:57 121 11/11/19 04:41 101.1 130 50 132/60 95 Non-Rebreather 15.0 11/11/19 04:14 101.1 11/11/19 03:58 101.1 130 50 132/60 95 Non-Rebreather 15.0 11/11/19 02:39 101.1 145 40 140/86 95 Non-Rebreather 15.0 11/11/19 02:39 136 26 Non-Rebreather 15.0 11/11/19 01:59 98.4 136 26 140/86 (104) 95 Non-Rebreather 15.0 Intake and Output 11/10/19 11/11/19 19:00 07:00 Intake Total 0 ml Output Total 400 ml Balance -400 ml Intake Oral 0 ml Output Urine Total 400 ml # Bowel Movements 2 Laboratory Tests Test 11/11/19 02:30 11/11/19 08:00 11/11/19 08:50 White Blood Count 20.4 K/UL (4.8-10.8) H 20.9 K/UL (4.8-10.8) H Red Blood Count 3.35 M/UL (4.70-6.10) L 3.74 M/UL (4.70-6.10) L Hemoglobin 9.3 G/DL (14.2-18.0) L 10.5 G/DL (14.2-18.0) L Hematocrit 27.8 % (42.0-52.0) L 30.8 % (42.0-52.0) L Mean Corpuscular Volume 83 FL (80-99) 82 FL (80-99) Mean Corpuscular Hemoglobin 27.9 PG (27.0-31.0) 28.2 PG (27.0-31.0) Mean Corpuscular Hemoglobin Concent 33.6 G/DL (32.0-36.0) 34.2 G/DL (32.0-36.0) Red Cell Distribution Width 12.9 % (11.6-14.8) 12.8 % (11.6-14.8) Platelet Count 392 K/UL (150-450) 445 K/UL (150-450) Mean Platelet Volume 5.7 FL (6.5-10.1) L 5.9 FL (6.5-10.1) L Neutrophils (%) (Auto) % (45.0-75.0) % (45.0-75.0) Lymphocytes (%) (Auto) % (20.0-45.0) % (20.0-45.0) Monocytes (%) (Auto) % (1.0-10.0) % (1.0-10.0) Eosinophils (%) (Auto) % (0.0-3.0) % (0.0-3.0) Basophils (%) (Auto) % (0.0-2.0) % (0.0-2.0) Differential Total Cells Counted 100 100 Neutrophils % (Manual) 78 % (45-75) H 79 % (45-75) H Lymphocytes % (Manual) 17 % (20-45) L 10 % (20-45) L Monocytes % (Manual) 5 % (1-10) 8 % (1-10) Eosinophils % (Manual) 0 % (0-3) 0 % (0-3) Basophils % (Manual) 0 % (0-2) 0 % (0-2) Band Neutrophils 0 % (0-8) 3 % (0-8) Platelet Estimate Adequate Adequate Platelet Morphology Normal Normal D-Dimer 2.89 mg/L FEU (0.00-0.49) H Urine Color Yellow Urine Appearance Clear Urine pH 5 (4.5-8.0) Urine Specific [place] 1.015 (1.005-1.035) Urine Protein 2+ (NEGATIVE) H Urine Glucose (UA) Negative (NEGATIVE) Urine Ketones Negative (NEGATIVE) Urine Blood 5+ (NEGATIVE) H Urine Nitrite Negative (NEGATIVE) Urine Bilirubin Negative (NEGATIVE) Urine Urobilinogen Normal MG/DL (0.0-1.0) Urine Leukocyte Esterase 1+ (NEGATIVE) H Urine RBC 30-40 /HPF (0 - 0) H Urine WBC 0-2 /HPF (0 - 0) Urine Squamous Epithelial Cells None /LPF (NONE/OCC) Urine Bacteria Moderate /HPF (NONE) H Urine Coarse Granular Casts 0-2 /LPF (NONE) H Sodium Level 145 MMOL/L (136-145) 147 MMOL/L (136-145) H Potassium Level 5.8 MMOL/L (3.5-5.1) H 5.5 MMOL/L (3.5-5.1) H Chloride Level 109 MMOL/L (98-107) H 112 MMOL/L (98-107) H Carbon Dioxide Level 27 MMOL/L (21-32) 26 MMOL/L (21-32) Anion Gap 9 mmol/L (5-15) 9 mmol/L (5-15) Blood Urea Nitrogen 69 mg/dL (7-18) H 65 mg/dL (7-18) H Creatinine 1.8 MG/DL (0.55-1.30) H 1.6 MG/DL (0.55-1.30) H Estimat Glomerular Filtration Rate 37.3 mL/min (>60) 42.7 mL/min (>60) Glucose Level 186 MG/DL (74-106) H 159 MG/DL (74-106) H Lactic Acid Level 1.80 mmol/L (0.4-2.0) Calcium Level 8.3 MG/DL (8.5-10.1) L 8.0 MG/DL (8.5-10.1) L Ferritin 1339 NG/ML (8-388) H Total Bilirubin 0.2 MG/DL (0.2-1.0) 0.3 MG/DL (0.2-1.0) Aspartate Amino Transf (AST/SGOT) 39 U/L (15-37) H 34 U/L (15-37) Alanine Aminotransferase (ALT/SGPT) 39 U/L (12-78) 36 U/L (12-78) Alkaline Phosphatase 93 U/L (46-116) 82 U/L (46-116) Total Creatine Kinase 39 U/L (26-308) Creatine Kinase MB 0.8 NG/ML (0.0-3.6) Creatine Kinase MB Relative Index 2.0 Troponin I 0.003 ng/mL (0.000-0.056) C-Reactive Protein, Quantitative 40.5 mg/dL (0.00-0.90) H Total Protein 7.6 G/DL (6.4-8.2) 7.0 G/DL (6.4-8.2) Albumin 1.8 G/DL (3.4-5.0) L 1.6 G/DL (3.4-5.0) L Globulin 5.8 g/dL 5.4 g/dL Albumin/Globulin Ratio 0.3 (1.0-2.7) L 0.3 (1.0-2.7) L Hemoglobin A1c 6.3 % (4.3-6.0) H Uric Acid 8.0 MG/DL (2.6-7.2) H Phosphorus Level 4.9 MG/DL (2.5-4.9) Magnesium Level 2.7 MG/DL (1.8-2.4) H Gamma Glutamyl Transpeptidase 55 U/L (5-85) Pro-B-Type Natriuretic Peptide 664 pg/mL (0-125) H Triglycerides Level 177 MG/DL (30-150) H Cholesterol Level 70 MG/DL (< 200) LDL Cholesterol 43 mg/dL (<100) HDL Cholesterol 15 MG/DL (40-60) L Cholesterol/HDL Ratio 4.7 (3.3-4.4) H Vitamin B12 Level 736 PG/ML (193-986) Thyroid Stimulating Hormone (TSH) 0.896 uiU/mL (0.358-3.740) Arterial Blood pH 7.433 (7.350-7.450) Arterial Blood Partial Pressure CO2 40.0 mmHg (35.0-45.0) Arterial Blood Partial Pressure O2 102.6 mmHg (75.0-100.0) H Arterial Blood HCO3 26.1 mmol/L (22.0-26.0) H Arterial Blood Oxygen Saturation 97.3 % (95-100) Arterial Blood Base Excess 1.8 (-2-2) Michael Test Positive Height (Feet): 6 Height (Inches): 0.00 Weight (Pounds): 130 Medications Current Medications Medications (Trade) Dose Ordered Sig/Leonor Route PRN Reason Start Time Stop Time Status Last Admin Dose Admin Acetaminophen (Tylenol) 650 mg Q4H PRN ORAL fever 11/11/19 09:00 12/11/19 08:59 Albuterol/ Ipratropium (Albuterol/ Ipratropium) 3 ml Q4H PRN HHN Shortness of Breath 11/11/19 09:00 11/16/19 08:59 Amlodipine Besylate (Norvasc) 5 mg DAILY NG 11/12/19 09:00 12/11/19 08:59 Cefepime HCl 1 gm/ Dextrose 55 ml @ 110 mls/hr Q24H IV 11/12/19 03:00 11/19/19 02:59 Heparin Sodium (Porcine) (Heparin 5000 units/ml) 5,000 units EVERY 12 HOURS SUBQ 11/11/19 09:00 12/26/19 08:59 11/11/19 09:54 Mirtazapine (Remeron) 7.5 mg BEDTIME GT 11/11/19 21:00 02/09/20 20:59 Nitroglycerin (Ntg) 0.4 mg Q5M PRN SL Prn Chest Pain 11/11/19 09:00 12/11/19 08:59 Ondansetron HCl (Zofran) 4 mg Q6H PRN IVP Nausea & Vomiting 11/11/19 09:00 12/11/19 08:59 Polyethylene Glycol (Miralax) 17 gm DAILYPRN PRN ORAL Constipation 11/11/19 09:00 12/11/19 08:59 Promethazine HCl/ Codeine (Phenergan with Codeine) 5 ml Q4H PRN ORAL For Cough 11/11/19 09:00 12/11/19 08:59 Sodium Chloride 1,000 ml @ 100 mls/hr Q10H IV 11/11/19 10:00 12/11/19 09:59 11/11/19 10:15 Tamsulosin HCl (Flomax) 0.4 mg DAILY ORAL 11/11/19 09:00 12/11/19 08:59 11/11/19 09:55 Temazepam (Restoril) 15 mg HSPRN PRN ORAL Insomnia 11/11/19 09:00 11/18/19 08:59 Vancomycin HCl (Vanco pharmacy to dose) 1 ea DAILY PRN MISC Per rx protocol 11/11/19 09:00 12/11/19 08:59 Vancomycin/Sodium Chloride 275 ml @ 183.333 mls/hr ONCE IVPB 11/11/19 13:00 11/11/19 15:00 Assessment/Plan Problem List: (1) Respiratory failure with hypoxia ICD Codes: J96.91 - Respiratory failure, unspecified with hypoxia SNOMED: 00283395017161748 Qualifiers: Qualified Codes: J96.01 - Acute respiratory failure with hypoxia (2) Suspected COVID-19 virus infection ICD Codes: Z20.828 - Contact with and (suspected) exposure to other viral communicable diseases SNOMED: 323045978 (3) Aspiration pneumonia ICD Codes: J69.0 - Pneumonitis due to inhalation of food and vomit SNOMED: 511397965 (4) Sepsis ICD Codes: A41.9 - Sepsis, unspecified organism SNOMED: 96482898 Qualifiers: Qualified Codes: A41.9 - Sepsis, unspecified organism; R65.20 - Severe sepsis without septic shock; J96.01 - Acute respiratory failure with hypoxia (5) Left carotid artery occlusion ICD Codes: I65.22 - Occlusion and stenosis of left carotid artery SNOMED: 916073717147315 (6) Hypertension ICD Codes: I10 - Essential (primary) hypertension SNOMED: 36353326 (7) DM (diabetes mellitus) ICD Codes: E11.9 - Type 2 diabetes mellitus without complications SNOMED: 51048159 (8) Left middle cerebral artery stroke ICD Codes: I63.512 - Cerebral infarction due to unspecified occlusion or stenosis of left middle cerebral artery SNOMED: 847971687 Assessment/Plan: respiratory isolation repeat cxr in am iv abx [place] culture aspiration precaution check electrolytes Ayana Ndiaye MD November 11, 2019 13:35
--- NOTE | 2019-11-11 15:25 | Consultation ---
History of Present Illness General Date patient seen: November 11, 2019 Chief Complaint: Dyspnea/Respdistress Present Illness HPI 74-year-old male care home resident multi-medical comorbidities including history of CVA presents [facility] ED from nursing facility for evaluation of respiratory insufficiency distress and shortness of breath. Patient noted to be tachypneic and was admitted for care management. On admission identified to have low BMI, malnutrition, decubitus skin ulcer, abnormal labs. Surgical to evaluate assist with care. Patient seen, patient filemon MANCILLA did, chart reviewed.. Patient nonverbal. History obtained from chart. Allergies: Coded Allergies: No Known Allergies (Unverified , 09/16/19) UNABLE TO ASSESS (Unverified , 06/18/19) Medication History Scheduled Amlodipine Besylate* (Amlodipine Besylate*), 5 MG GT DAILY, (Reported) Aspirin* (Aspirin*), 162 MG NG DAILY Mirtazapine* (Mirtazapine*), 7.5 MG GT BEDTIME, (Reported) Multivitamin With Minerals (Multivitamins With Minerals*), 1 TAB GT DAILY, ( Reported) Tamsulosin HCl (Flomax), 0.4 MG GT DAILY, (Reported) Scheduled PRN Acetaminophen* (Acetaminophen 325MG Tablet*), 650 MG GT Q4H PRN for For Pain, ( Reported) Albuterol Sulfate* (Albuterol Sulfate Hhn*), 3 ML INH Q4H PRN for Shortness of Breath, (Reported) Amlodipine Besylate (Norvasc), 5 MG NG Q12H PRN Loperamide Hcl (Loperamide), 2 MG NG Q6H PRN Ondansetron* (Zofran*), 4 MG GT Q6H PRN for Nausea & Vomiting, (Reported) Miscellaneous Medications Loperamide Hcl (Loperamide), 1 MG GT, (Reported) Discontinued Medications Lisinopril* (Prinivil*), 20 MG NG DAILY Discontinued Reason: discontinued med Metformin Hcl* (Glucophage*), 500 MG NG BID Discontinued Reason: discontinued med Minoxidil (Minoxidil), 2.5 MG ORAL Q4H PRN Discontinued Reason: discontinued med [Acetaminophen], 650 MG NG Q4H PRN Discontinued Reason: MD discontinued med Patient History Limited by: age, medical condition History Provided By: Medical Record, PMD Healthcare decision maker Resuscitation status Advanced Directive on File Past Medical/Surgical History Past Medical/Surgical History: (1) Sepsis (2) Left carotid artery occlusion (3) Left middle cerebral artery stroke (4) DM (diabetes mellitus) (5) ARF (acute renal failure) (6) Ventricular tachyarrhythmia (7) Aspiration pneumonia (8) Hypertension (9) UTI (urinary tract infection) (10) Anemia (11) Respiratory failure with hypoxia (12) Suspected COVID-19 virus infection Review of Systems All Other Systems: negative except mentioned in HPI ROS Narrative Unable to obtain given baseline medical condition Physical Exam General Appearance: mild distress Lines, tubes and drains: peripheral HEENT: anicteric, mucous membranes moist Neck: normal inspection Respiratory/Chest: decreased breath sounds, accessory muscle use Cardiovascular/Chest: normal rate Abdomen: soft, no organomegaly, no mass, other Extremities: inflammation, slow capillary refill Skin Exam: warm/dry Neurologic: unresponsiveness Last 24 Hour Vital Signs Date Time Temp Pulse Resp B/P (MAP) Pulse Ox O2 Delivery O2 Flow Rate FiO2 11/11/19 12:00 97.7 79 46 115/61 (79) 99 11/11/19 10:26 98.7 11/11/19 09:00 Non-Rebreather 15.0 11/11/19 08:00 98.7 80 46 132/67 (88) 98 11/11/19 08:00 98.1 80 46 132/67 (88) 98 11/11/19 05:14 Non-Rebreather 15.0 11/11/19 04:57 121 11/11/19 04:41 101.1 130 50 132/60 95 Non-Rebreather 15.0 11/11/19 04:14 101.1 11/11/19 03:58 101.1 130 50 132/60 95 Non-Rebreather 15.0 11/11/19 02:39 101.1 145 40 140/86 95 Non-Rebreather 15.0 11/11/19 02:39 136 26 Non-Rebreather 15.0 11/11/19 01:59 98.4 136 26 140/86 (104) 95 Non-Rebreather 15.0 Intake and Output 11/10/19 11/11/19 19:00 07:00 Intake Total 0 ml Output Total 400 ml Balance -400 ml Intake Oral 0 ml Output Urine Total 400 ml # Bowel Movements 2 Laboratory Tests Test 11/11/19 02:30 11/11/19 08:00 11/11/19 08:50 White Blood Count 20.4 K/UL (4.8-10.8) H 20.9 K/UL (4.8-10.8) H Red Blood Count 3.35 M/UL (4.70-6.10) L 3.74 M/UL (4.70-6.10) L Hemoglobin 9.3 G/DL (14.2-18.0) L 10.5 G/DL (14.2-18.0) L Hematocrit 27.8 % (42.0-52.0) L 30.8 % (42.0-52.0) L Mean Corpuscular Volume 83 FL (80-99) 82 FL (80-99) Mean Corpuscular Hemoglobin 27.9 PG (27.0-31.0) 28.2 PG (27.0-31.0) Mean Corpuscular Hemoglobin Concent 33.6 G/DL (32.0-36.0) 34.2 G/DL (32.0-36.0) Red Cell Distribution Width 12.9 % (11.6-14.8) 12.8 % (11.6-14.8) Platelet Count 392 K/UL (150-450) 445 K/UL (150-450) Mean Platelet Volume 5.7 FL (6.5-10.1) L 5.9 FL (6.5-10.1) L Neutrophils (%) (Auto) % (45.0-75.0) % (45.0-75.0) Lymphocytes (%) (Auto) % (20.0-45.0) % (20.0-45.0) Monocytes (%) (Auto) % (1.0-10.0) % (1.0-10.0) Eosinophils (%) (Auto) % (0.0-3.0) % (0.0-3.0) Basophils (%) (Auto) % (0.0-2.0) % (0.0-2.0) Differential Total Cells Counted 100 100 Neutrophils % (Manual) 78 % (45-75) H 79 % (45-75) H Lymphocytes % (Manual) 17 % (20-45) L 10 % (20-45) L Monocytes % (Manual) 5 % (1-10) 8 % (1-10) Eosinophils % (Manual) 0 % (0-3) 0 % (0-3) Basophils % (Manual) 0 % (0-2) 0 % (0-2) Band Neutrophils 0 % (0-8) 3 % (0-8) Platelet Estimate Adequate Adequate Platelet Morphology Normal Normal D-Dimer 2.89 mg/L FEU (0.00-0.49) H Urine Color Yellow Urine Appearance Clear Urine pH 5 (4.5-8.0) Urine Specific [place] 1.015 (1.005-1.035) Urine Protein 2+ (NEGATIVE) H Urine Glucose (UA) Negative (NEGATIVE) Urine Ketones Negative (NEGATIVE) Urine Blood 5+ (NEGATIVE) H Urine Nitrite Negative (NEGATIVE) Urine Bilirubin Negative (NEGATIVE) Urine Urobilinogen Normal MG/DL (0.0-1.0) Urine Leukocyte Esterase 1+ (NEGATIVE) H Urine RBC 30-40 /HPF (0 - 0) H Urine WBC 0-2 /HPF (0 - 0) Urine Squamous Epithelial Cells None /LPF (NONE/OCC) Urine Bacteria Moderate /HPF (NONE) H Urine Coarse Granular Casts 0-2 /LPF (NONE) H Sodium Level 145 MMOL/L (136-145) 147 MMOL/L (136-145) H Potassium Level 5.8 MMOL/L (3.5-5.1) H 5.5 MMOL/L (3.5-5.1) H Chloride Level 109 MMOL/L (98-107) H 112 MMOL/L (98-107) H Carbon Dioxide Level 27 MMOL/L (21-32) 26 MMOL/L (21-32) Anion Gap 9 mmol/L (5-15) 9 mmol/L (5-15) Blood Urea Nitrogen 69 mg/dL (7-18) H 65 mg/dL (7-18) H Creatinine 1.8 MG/DL (0.55-1.30) H 1.6 MG/DL (0.55-1.30) H Estimat Glomerular Filtration Rate 37.3 mL/min (>60) 42.7 mL/min (>60) Glucose Level 186 MG/DL (74-106) H 159 MG/DL (74-106) H Lactic Acid Level 1.80 mmol/L (0.4-2.0) Calcium Level 8.3 MG/DL (8.5-10.1) L 8.0 MG/DL (8.5-10.1) L Ferritin 1339 NG/ML (8-388) H Total Bilirubin 0.2 MG/DL (0.2-1.0) 0.3 MG/DL (0.2-1.0) Aspartate Amino Transf (AST/SGOT) 39 U/L (15-37) H 34 U/L (15-37) Alanine Aminotransferase (ALT/SGPT) 39 U/L (12-78) 36 U/L (12-78) Alkaline Phosphatase 93 U/L (46-116) 82 U/L (46-116) Total Creatine Kinase 39 U/L (26-308) Pending Creatine Kinase MB 0.8 NG/ML (0.0-3.6) Creatine Kinase MB Relative Index 2.0 Troponin I 0.003 ng/mL (0.000-0.056) C-Reactive Protein, Quantitative 40.5 mg/dL (0.00-0.90) H Total Protein 7.6 G/DL (6.4-8.2) 7.0 G/DL (6.4-8.2) Albumin 1.8 G/DL (3.4-5.0) L 1.6 G/DL (3.4-5.0) L Globulin 5.8 g/dL 5.4 g/dL Albumin/Globulin Ratio 0.3 (1.0-2.7) L 0.3 (1.0-2.7) L Hemoglobin A1c 6.3 % (4.3-6.0) H Uric Acid 8.0 MG/DL (2.6-7.2) H Phosphorus Level 4.9 MG/DL (2.5-4.9) Magnesium Level 2.7 MG/DL (1.8-2.4) H Gamma Glutamyl Transpeptidase 55 U/L (5-85) Pro-B-Type Natriuretic Peptide 664 pg/mL (0-125) H Triglycerides Level 177 MG/DL (30-150) H Cholesterol Level 70 MG/DL (< 200) LDL Cholesterol 43 mg/dL (<100) HDL Cholesterol 15 MG/DL (40-60) L Cholesterol/HDL Ratio 4.7 (3.3-4.4) H Vitamin B12 Level 736 PG/ML (193-986) Thyroid Stimulating Hormone (TSH) 0.896 uiU/mL (0.358-3.740) Arterial Blood pH 7.433 (7.350-7.450) Arterial Blood Partial Pressure CO2 40.0 mmHg (35.0-45.0) Arterial Blood Partial Pressure O2 102.6 mmHg (75.0-100.0) H Arterial Blood HCO3 26.1 mmol/L (22.0-26.0) H Arterial Blood Oxygen Saturation 97.3 % (95-100) Arterial Blood Base Excess 1.8 (-2-2) Michael Test Positive Height (Feet): 6 Height (Inches): 0.00 Weight (Pounds): 130 Medications Current Medications Medications (Trade) Dose Ordered Sig/Leonor Route PRN Reason Start Time Stop Time Status Last Admin Dose Admin Acetaminophen (Tylenol) 650 mg Q4H PRN ORAL fever 11/11/19 09:00 12/11/19 08:59 Albuterol/ Ipratropium (Albuterol/ Ipratropium) 3 ml Q4H PRN HHN Shortness of Breath 11/11/19 09:00 11/16/19 08:59 Amlodipine Besylate (Norvasc) 5 mg DAILY NG 11/12/19 09:00 12/11/19 08:59 Cefepime HCl 1 gm/ Dextrose 55 ml @ 110 mls/hr Q24H IV 11/12/19 03:00 11/19/19 02:59 Heparin Sodium (Porcine) (Heparin 5000 units/ml) 5,000 units EVERY 12 HOURS SUBQ 11/11/19 09:00 12/26/19 08:59 11/11/19 09:54 Mirtazapine (Remeron) 7.5 mg BEDTIME GT 11/11/19 21:00 02/09/20 20:59 Nitroglycerin (Ntg) 0.4 mg Q5M PRN SL Prn Chest Pain 11/11/19 09:00 12/11/19 08:59 Ondansetron HCl (Zofran) 4 mg Q6H PRN IVP Nausea & Vomiting 11/11/19 09:00 12/11/19 08:59 Polyethylene Glycol (Miralax) 17 gm DAILYPRN PRN ORAL Constipation 11/11/19 09:00 12/11/19 08:59 Promethazine HCl/ Codeine (Phenergan with Codeine) 5 ml Q4H PRN ORAL For Cough 11/11/19 09:00 12/11/19 08:59 Sodium Chloride 1,000 ml @ 100 mls/hr Q10H IV 11/11/19 10:00 12/11/19 09:59 11/11/19 10:15 Tamsulosin HCl (Flomax) 0.4 mg DAILY ORAL 11/11/19 09:00 12/11/19 08:59 11/11/19 09:55 Temazepam (Restoril) 15 mg HSPRN PRN ORAL Insomnia 11/11/19 09:00 11/18/19 08:59 Vancomycin HCl (Vanco pharmacy to dose) 1 ea DAILY PRN MISC Per rx protocol 11/11/19 09:00 12/11/19 08:59 Assessment/Plan Problem List: (1) Decubitus skin ulcer Assessment & Plan: Pt presented on admission with large sacral wound. Base of wound with areas that area purple and indurated sacrococcygeal,L sacrum/L gluteus,Scattered wounds with maceration L gluteus, one wound R sacrum with Biofilm, Surrounding non-blanching erythema entire buttocks. Small dry scabbed area noted to lumbar area. Unstageable Pressure Injury L heel. Base of wound is necrotic with surrounding non-blanching erythema. Tx.plan: Apply Moisture Barrier Paste to Buttocks. Cover Sacrum, R and L gluteal cheeks with Optifoam drsgs. Change every 3 days and prn. Apply Betadine to L heel. Cover with Optifoam drsg. Change every 3 days and prn. Reposition at least every 2hours or as tolerated. Place Pillow between knees. Off-load heels with Pillow. APM/BRUNILDA Mattress overlay. ICD Codes: L89.90 - Pressure ulcer of unspecified site, unspecified stage SNOMED: 213769946 (2) Sepsis Assessment & Plan: 74-year-old male multi-medical comorbidities admitted for respiratory deficiency currently tachypneic, leukocytosis, malnutrition, hypoalbuminemia. Complete physical exam performed identified areas of concerned given patient's comorbidities current condition high risk for deteriorationNo active infection identified from patient's wounds and likely respiratory nature. Chest x-ray reviewed. No acute surgical intervention planned at this time Preventive measures IV antibiotics per infectious disease Okay for feeding once stable respiratory Appreciate Palm input We will follow with recommendations thank you for let me participate patient's care ICD Codes: A41.9 - Sepsis, unspecified organism SNOMED: 17608589 Qualifiers: Qualified Codes: A41.9 - Sepsis, unspecified organism; R65.20 - Severe sepsis without septic shock; J96.01 - Acute respiratory failure with hypoxia (3) Left carotid artery occlusion ICD Codes: I65.22 - Occlusion and stenosis of left carotid artery SNOMED: 602339895539477 (4) Left middle cerebral artery stroke ICD Codes: I63.512 - Cerebral infarction due to unspecified occlusion or stenosis of left middle cerebral artery SNOMED: 720260301 (5) DM (diabetes mellitus) ICD Codes: E11.9 - Type 2 diabetes mellitus without complications SNOMED: 99758607 (6) ARF (acute renal failure) ICD Codes: N17.9 - Acute kidney failure, unspecified SNOMED: 42791236 Qualifiers: Qualified Codes: N17.9 - Acute kidney failure, unspecified (7) Ventricular tachyarrhythmia ICD Codes: I47.2 - Ventricular tachycardia SNOMED: 0556093, 17903170 (8) Aspiration pneumonia ICD Codes: J69.0 - Pneumonitis due to inhalation of food and vomit SNOMED: 775878400 (9) Hypertension ICD Codes: I10 - Essential (primary) hypertension SNOMED: 00252709 (10) UTI (urinary tract infection) ICD Codes: N39.0 - Urinary tract infection, site not specified SNOMED: 57068956 Qualifiers: Qualified Codes: N30.00 - Acute cystitis without hematuria (11) Anemia ICD Codes: D64.9 - Anemia, unspecified SNOMED: 591067404 Qualifiers: Qualified Codes: D64.9 - Anemia, unspecified (12) Respiratory failure with hypoxia ICD Codes: J96.91 - Respiratory failure, unspecified with hypoxia SNOMED: 26526549650564142 Qualifiers: Qualified Codes: J96.01 - Acute respiratory failure with hypoxia (13) Suspected COVID-19 virus infection ICD Codes: Z20.828 - Contact with and (suspected) exposure to other viral communicable diseases SNOMED: 532514873 Elfego Payne November 11, 2019 15:25
[2019-11-11 15:32] LABS: APPEARANCE,URINE CLOUDY; BILIRUBIN, URINE NEGATIVE (NEGATIVE); GLUCOSE, URINE (UA) NEGATIVE (NEGATIVE); KETONES,URINE NEGATIVE (NEGATIVE); LEUKOCYTE ESTERASE ,URINE 1+ (NEGATIVE); NITRITE,URINE NEGATIVE (NEGATIVE); PH,URINE 5 (4.5-8.0); PROTEIN,URINE 2+ (NEGATIVE); UROBILINOGEN,URINE 1 MG/DL (0.0-1.0)
[2019-11-11 15:34] LABS: COLOR,URINE YELLOW
[2019-11-11 15:36] LABS: CREATINE KINASE 36 U/L (26-308)
[2019-11-11 16:00] VITALS: BP 134/71
--- NOTE | 2019-11-11 18:01 | Cardiology Progress Note ---
Assessment/Plan Assessment/Plan [id number] Objective Last 24 Hour Vital Signs Date Time Temp Pulse Resp B/P (MAP) Pulse Ox O2 Delivery O2 Flow Rate FiO2 11/11/19 16:00 97.7 88 30 134/71 (92) 100 11/11/19 12:00 108 11/11/19 12:00 97.7 79 46 115/61 (79) 99 11/11/19 10:26 98.7 11/11/19 09:00 Non-Rebreather 15.0 11/11/19 08:00 98.7 80 46 132/67 (88) 98 11/11/19 08:00 98.1 80 46 132/67 (88) 98 11/11/19 05:14 Non-Rebreather 15.0 11/11/19 04:57 121 11/11/19 04:41 101.1 130 50 132/60 95 Non-Rebreather 15.0 11/11/19 04:14 101.1 11/11/19 03:58 101.1 130 50 132/60 95 Non-Rebreather 15.0 11/11/19 02:39 101.1 145 40 140/86 95 Non-Rebreather 15.0 11/11/19 02:39 136 26 Non-Rebreather 15.0 11/11/19 01:59 98.4 136 26 140/86 (104) 95 Non-Rebreather 15.0 Intake and Output 11/10/19 11/11/19 19:00 07:00 Intake Total 0 ml Output Total 400 ml Balance -400 ml Intake Oral 0 ml Output Urine Total 400 ml # Bowel Movements 2 Laboratory Tests Test 11/11/19 02:30 11/11/19 08:00 11/11/19 08:50 11/11/19 15:00 White Blood Count 20.4 K/UL (4.8-10.8) H 20.9 K/UL (4.8-10.8) H Red Blood Count 3.35 M/UL (4.70-6.10) L 3.74 M/UL (4.70-6.10) L Hemoglobin 9.3 G/DL (14.2-18.0) L 10.5 G/DL (14.2-18.0) L Hematocrit 27.8 % (42.0-52.0) L 30.8 % (42.0-52.0) L Mean Corpuscular Volume 83 FL (80-99) 82 FL (80-99) Mean Corpuscular Hemoglobin 27.9 PG (27.0-31.0) 28.2 PG (27.0-31.0) Mean Corpuscular Hemoglobin Concent 33.6 G/DL (32.0-36.0) 34.2 G/DL (32.0-36.0) Red Cell Distribution Width 12.9 % (11.6-14.8) 12.8 % (11.6-14.8) Platelet Count 392 K/UL (150-450) 445 K/UL (150-450) Mean Platelet Volume 5.7 FL (6.5-10.1) L 5.9 FL (6.5-10.1) L Neutrophils (%) (Auto) % (45.0-75.0) % (45.0-75.0) Lymphocytes (%) (Auto) % (20.0-45.0) % (20.0-45.0) Monocytes (%) (Auto) % (1.0-10.0) % (1.0-10.0) Eosinophils (%) (Auto) % (0.0-3.0) % (0.0-3.0) Basophils (%) (Auto) % (0.0-2.0) % (0.0-2.0) Differential Total Cells Counted 100 100 Neutrophils % (Manual) 78 % (45-75) H 79 % (45-75) H Lymphocytes % (Manual) 17 % (20-45) L 10 % (20-45) L Monocytes % (Manual) 5 % (1-10) 8 % (1-10) Eosinophils % (Manual) 0 % (0-3) 0 % (0-3) Basophils % (Manual) 0 % (0-2) 0 % (0-2) Band Neutrophils 0 % (0-8) 3 % (0-8) Platelet Estimate Adequate Adequate Platelet Morphology Normal Normal D-Dimer 2.89 mg/L FEU (0.00-0.49) H Urine Color Yellow Yellow Urine Appearance Clear Cloudy Urine pH 5 (4.5-8.0) 5 (4.5-8.0) Urine Specific [place] 1.015 (1.005-1.035) 1.015 (1.005-1.035) Urine Protein 2+ (NEGATIVE) H 2+ (NEGATIVE) H Urine Glucose (UA) Negative (NEGATIVE) Negative (NEGATIVE) Urine Ketones Negative (NEGATIVE) Negative (NEGATIVE) Urine Blood 5+ (NEGATIVE) H 5+ (NEGATIVE) H Urine Nitrite Negative (NEGATIVE) Negative (NEGATIVE) Urine Bilirubin Negative (NEGATIVE) Negative (NEGATIVE) Urine Urobilinogen Normal MG/DL (0.0-1.0) 1 MG/DL (0.0-1.0) H Urine Leukocyte Esterase 1+ (NEGATIVE) H 1+ (NEGATIVE) H Urine RBC 30-40 /HPF (0 - 0) H Tntc /HPF (0 - 0) H Urine WBC 0-2 /HPF (0 - 0) 5-10 /HPF (0 - 0) H Urine Squamous Epithelial Cells None /LPF (NONE/OCC) Occasional /LPF Urine Bacteria Moderate /HPF (NONE) H Moderate /HPF (NONE) H Urine Coarse Granular Casts 0-2 /LPF (NONE) H Sodium Level 145 MMOL/L (136-145) 147 MMOL/L (136-145) H Potassium Level 5.8 MMOL/L (3.5-5.1) H 5.5 MMOL/L (3.5-5.1) H Chloride Level 109 MMOL/L (98-107) H 112 MMOL/L (98-107) H Carbon Dioxide Level 27 MMOL/L (21-32) 26 MMOL/L (21-32) Anion Gap 9 mmol/L (5-15) 9 mmol/L (5-15) Blood Urea Nitrogen 69 mg/dL (7-18) H 65 mg/dL (7-18) H Creatinine 1.8 MG/DL (0.55-1.30) H 1.6 MG/DL (0.55-1.30) H Estimat Glomerular Filtration Rate 37.3 mL/min (>60) 42.7 mL/min (>60) Glucose Level 186 MG/DL (74-106) H 159 MG/DL (74-106) H Lactic Acid Level 1.80 mmol/L (0.4-2.0) Calcium Level 8.3 MG/DL (8.5-10.1) L 8.0 MG/DL (8.5-10.1) L Ferritin 1339 NG/ML (8-388) H Total Bilirubin 0.2 MG/DL (0.2-1.0) 0.3 MG/DL (0.2-1.0) Aspartate Amino Transf (AST/SGOT) 39 U/L (15-37) H 34 U/L (15-37) Alanine Aminotransferase (ALT/SGPT) 39 U/L (12-78) 36 U/L (12-78) Alkaline Phosphatase 93 U/L (46-116) 82 U/L (46-116) Total Creatine Kinase 39 U/L (26-308) 36 U/L (26-308) Creatine Kinase MB 0.8 NG/ML (0.0-3.6) Creatine Kinase MB Relative Index 2.0 Troponin I 0.003 ng/mL (0.000-0.056) C-Reactive Protein, Quantitative 40.5 mg/dL (0.00-0.90) H Total Protein 7.6 G/DL (6.4-8.2) 7.0 G/DL (6.4-8.2) Albumin 1.8 G/DL (3.4-5.0) L 1.6 G/DL (3.4-5.0) L Globulin 5.8 g/dL 5.4 g/dL Albumin/Globulin Ratio 0.3 (1.0-2.7) L 0.3 (1.0-2.7) L Hemoglobin A1c 6.3 % (4.3-6.0) H Uric Acid 8.0 MG/DL (2.6-7.2) H Phosphorus Level 4.9 MG/DL (2.5-4.9) Magnesium Level 2.7 MG/DL (1.8-2.4) H Gamma Glutamyl Transpeptidase 55 U/L (5-85) Pro-B-Type Natriuretic Peptide 664 pg/mL (0-125) H Triglycerides Level 177 MG/DL (30-150) H Cholesterol Level 70 MG/DL (< 200) LDL Cholesterol 43 mg/dL (<100) HDL Cholesterol 15 MG/DL (40-60) L Cholesterol/HDL Ratio 4.7 (3.3-4.4) H Vitamin B12 Level 736 PG/ML (193-986) Thyroid Stimulating Hormone (TSH) 0.896 uiU/mL (0.358-3.740) Arterial Blood pH 7.433 (7.350-7.450) Arterial Blood Partial Pressure CO2 40.0 mmHg (35.0-45.0) Arterial Blood Partial Pressure O2 102.6 mmHg (75.0-100.0) H Arterial Blood HCO3 26.1 mmol/L (22.0-26.0) H Arterial Blood Oxygen Saturation 97.3 % (95-100) Arterial Blood Base Excess 1.8 (-2-2) Michael Test Positive Urine Amorphous Sediment Moderate /LPF (NONE) H Urine Eosinophils None seen (NONE SEEN) Urine Random Sodium < 20 mmol/L (20-110) L Urine Potassium Timed 79 mmol/L (12-62) H Chris Melgar MD November 11, 2019 18:01
--- NOTE | 2019-11-11 18:50 | Consultation ---
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 Per EMS, O2 Sat was 77% at [facility]. Allergies: Coded Allergies: No Known Allergies (Unverified , 09/16/19) UNABLE TO ASSESS (Unverified , 06/18/19) Medication History Scheduled Amlodipine Besylate* (Amlodipine Besylate*), 5 MG GT DAILY, (Reported) Aspirin* (Aspirin*), 162 MG NG DAILY Mirtazapine* (Mirtazapine*), 7.5 MG GT BEDTIME, (Reported) Multivitamin With Minerals (Multivitamins With Minerals*), 1 TAB GT DAILY, ( Reported) Tamsulosin HCl (Flomax), 0.4 MG GT DAILY, (Reported) Scheduled PRN Acetaminophen* (Acetaminophen 325MG Tablet*), 650 MG GT Q4H PRN for For Pain, ( Reported) Albuterol Sulfate* (Albuterol Sulfate Hhn*), 3 ML INH Q4H PRN for Shortness of Breath, (Reported) Amlodipine Besylate (Norvasc), 5 MG NG Q12H PRN Loperamide Hcl (Loperamide), 2 MG NG Q6H PRN Ondansetron* (Zofran*), 4 MG GT Q6H PRN for Nausea & Vomiting, (Reported) Miscellaneous Medications Loperamide Hcl (Loperamide), 1 MG GT, (Reported) Discontinued Medications Lisinopril* (Prinivil*), 20 MG NG DAILY Discontinued Reason: discontinued med Metformin Hcl* (Glucophage*), 500 MG NG BID Discontinued Reason: discontinued med Minoxidil (Minoxidil), 2.5 MG ORAL Q4H PRN Discontinued Reason: discontinued med [Acetaminophen], 650 MG NG Q4H PRN Discontinued Reason: discontinued med Patient History Healthcare decision maker Resuscitation status Advanced Directive on File Patient History Narrative Pmhx: as above SHx: reviewed Fhx: non contributory Review of Systems All Other Systems: negative except mentioned in HPI Physical Exam Physical Exam Narrative General Appearance: moderate distress, Chronically Ill Head: normocephalic, atraumatic Eyes: bilateral eye PERRL, bilateral eye EOMI ENT: non icteric Neck: Restricted movement to all direction Respiratory: Decreased breath sound over the bases few rhonchi Cardiovascular #1: Tachycardia occasionally irregular beats Gastrointestinal: GT tube in place, RN reports diarrhea Musculoskeletal: No gross deficit noted Neurologic: Lethargic Skin: no rash Last 24 Hour Vital Signs Date Time Temp Pulse Resp B/P (MAP) Pulse Ox O2 Delivery O2 Flow Rate FiO2 11/11/19 16:00 97.7 88 30 134/71 (92) 100 11/11/19 12:00 108 11/11/19 12:00 97.7 79 46 115/61 (79) 99 11/11/19 10:26 98.7 11/11/19 09:00 Non-Rebreather 15.0 11/11/19 08:00 98.7 80 46 132/67 (88) 98 11/11/19 08:00 98.1 80 46 132/67 (88) 98 11/11/19 05:14 Non-Rebreather 15.0 11/11/19 04:57 121 11/11/19 04:41 101.1 130 50 132/60 95 Non-Rebreather 15.0 11/11/19 04:14 101.1 11/11/19 03:58 101.1 130 50 132/60 95 Non-Rebreather 15.0 11/11/19 02:39 101.1 145 40 140/86 95 Non-Rebreather 15.0 11/11/19 02:39 136 26 Non-Rebreather 15.0 11/11/19 01:59 98.4 136 26 140/86 (104) 95 Non-Rebreather 15.0 Intake and Output 11/10/19 11/11/19 19:00 07:00 Intake Total 0 ml Output Total 400 ml Balance -400 ml Intake Oral 0 ml Output Urine Total 400 ml # Bowel Movements 2 Laboratory Tests Test 11/11/19 02:30 11/11/19 08:00 11/11/19 08:50 11/11/19 15:00 White Blood Count 20.4 K/UL (4.8-10.8) H 20.9 K/UL (4.8-10.8) H Red Blood Count 3.35 M/UL (4.70-6.10) L 3.74 M/UL (4.70-6.10) L Hemoglobin 9.3 G/DL (14.2-18.0) L 10.5 G/DL (14.2-18.0) L Hematocrit 27.8 % (42.0-52.0) L 30.8 % (42.0-52.0) L Mean Corpuscular Volume 83 FL (80-99) 82 FL (80-99) Mean Corpuscular Hemoglobin 27.9 PG (27.0-31.0) 28.2 PG (27.0-31.0) Mean Corpuscular Hemoglobin Concent 33.6 G/DL (32.0-36.0) 34.2 G/DL (32.0-36.0) Red Cell Distribution Width 12.9 % (11.6-14.8) 12.8 % (11.6-14.8) Platelet Count 392 K/UL (150-450) 445 K/UL (150-450) Mean Platelet Volume 5.7 FL (6.5-10.1) L 5.9 FL (6.5-10.1) L Neutrophils (%) (Auto) % (45.0-75.0) % (45.0-75.0) Lymphocytes (%) (Auto) % (20.0-45.0) % (20.0-45.0) Monocytes (%) (Auto) % (1.0-10.0) % (1.0-10.0) Eosinophils (%) (Auto) % (0.0-3.0) % (0.0-3.0) Basophils (%) (Auto) % (0.0-2.0) % (0.0-2.0) Differential Total Cells Counted 100 100 Neutrophils % (Manual) 78 % (45-75) H 79 % (45-75) H Lymphocytes % (Manual) 17 % (20-45) L 10 % (20-45) L Monocytes % (Manual) 5 % (1-10) 8 % (1-10) Eosinophils % (Manual) 0 % (0-3) 0 % (0-3) Basophils % (Manual) 0 % (0-2) 0 % (0-2) Band Neutrophils 0 % (0-8) 3 % (0-8) Platelet Estimate Adequate Adequate Platelet Morphology Normal Normal D-Dimer 2.89 mg/L FEU (0.00-0.49) H Urine Color Yellow Yellow Urine Appearance Clear Cloudy Urine pH 5 (4.5-8.0) 5 (4.5-8.0) Urine Specific Mccrory 1.015 (1.005-1.035) 1.015 (1.005-1.035) Urine Protein 2+ (NEGATIVE) H 2+ (NEGATIVE) H Urine Glucose (UA) Negative (NEGATIVE) Negative (NEGATIVE) Urine Ketones Negative (NEGATIVE) Negative (NEGATIVE) Urine Blood 5+ (NEGATIVE) H 5+ (NEGATIVE) H Urine Nitrite Negative (NEGATIVE) Negative (NEGATIVE) Urine Bilirubin Negative (NEGATIVE) Negative (NEGATIVE) Urine Urobilinogen Normal MG/DL (0.0-1.0) 1 MG/DL (0.0-1.0) H Urine Leukocyte Esterase 1+ (NEGATIVE) H 1+ (NEGATIVE) H Urine RBC 30-40 /HPF (0 - 0) H Tntc /HPF (0 - 0) H Urine WBC 0-2 /HPF (0 - 0) 5-10 /HPF (0 - 0) H Urine Squamous Epithelial Cells None /LPF (NONE/OCC) Occasional /LPF Urine Bacteria Moderate /HPF (NONE) H Moderate /HPF (NONE) H Urine Coarse Granular Casts 0-2 /LPF (NONE) H Sodium Level 145 MMOL/L (136-145) 147 MMOL/L (136-145) H Potassium Level 5.8 MMOL/L (3.5-5.1) H 5.5 MMOL/L (3.5-5.1) H Chloride Level 109 MMOL/L (98-107) H 112 MMOL/L (98-107) H Carbon Dioxide Level 27 MMOL/L (21-32) 26 MMOL/L (21-32) Anion Gap 9 mmol/L (5-15) 9 mmol/L (5-15) Blood Urea Nitrogen 69 mg/dL (7-18) H 65 mg/dL (7-18) H Creatinine 1.8 MG/DL (0.55-1.30) H 1.6 MG/DL (0.55-1.30) H Estimat Glomerular Filtration Rate 37.3 mL/min (>60) 42.7 mL/min (>60) Glucose Level 186 MG/DL (74-106) H 159 MG/DL (74-106) H Lactic Acid Level 1.80 mmol/L (0.4-2.0) Calcium Level 8.3 MG/DL (8.5-10.1) L 8.0 MG/DL (8.5-10.1) L Ferritin 1339 NG/ML (8-388) H Total Bilirubin 0.2 MG/DL (0.2-1.0) 0.3 MG/DL (0.2-1.0) Aspartate Amino Transf (AST/SGOT) 39 U/L (15-37) H 34 U/L (15-37) Alanine Aminotransferase (ALT/SGPT) 39 U/L (12-78) 36 U/L (12-78) Alkaline Phosphatase 93 U/L (46-116) 82 U/L (46-116) Total Creatine Kinase 39 U/L (26-308) 36 U/L (26-308) Creatine Kinase MB 0.8 NG/ML (0.0-3.6) Creatine Kinase MB Relative Index 2.0 Troponin I 0.003 ng/mL (0.000-0.056) C-Reactive Protein, Quantitative 40.5 mg/dL (0.00-0.90) H Total Protein 7.6 G/DL (6.4-8.2) 7.0 G/DL (6.4-8.2) Albumin 1.8 G/DL (3.4-5.0) L 1.6 G/DL (3.4-5.0) L Globulin 5.8 g/dL 5.4 g/dL Albumin/Globulin Ratio 0.3 (1.0-2.7) L 0.3 (1.0-2.7) L Hemoglobin A1c 6.3 % (4.3-6.0) H Uric Acid 8.0 MG/DL (2.6-7.2) H Phosphorus Level 4.9 MG/DL (2.5-4.9) Magnesium Level 2.7 MG/DL (1.8-2.4) H Gamma Glutamyl Transpeptidase 55 U/L (5-85) Pro-B-Type Natriuretic Peptide 664 pg/mL (0-125) H Triglycerides Level 177 MG/DL (30-150) H Cholesterol Level 70 MG/DL (< 200) LDL Cholesterol 43 mg/dL (<100) HDL Cholesterol 15 MG/DL (40-60) L Cholesterol/HDL Ratio 4.7 (3.3-4.4) H Vitamin B12 Level 736 PG/ML (193-986) Thyroid Stimulating Hormone (TSH) 0.896 uiU/mL (0.358-3.740) Arterial Blood pH 7.433 (7.350-7.450) Arterial Blood Partial Pressure CO2 40.0 mmHg (35.0-45.0) Arterial Blood Partial Pressure O2 102.6 mmHg (75.0-100.0) H Arterial Blood HCO3 26.1 mmol/L (22.0-26.0) H Arterial Blood Oxygen Saturation 97.3 % (95-100) Arterial Blood Base Excess 1.8 (-2-2) Michael Test Positive Urine Amorphous Sediment Moderate /LPF (NONE) H Urine Eosinophils None seen (NONE SEEN) Urine Random Sodium < 20 mmol/L (20-110) L Urine Potassium Timed 79 mmol/L (12-62) H Height (Feet): 6 Height (Inches): 0.00 Weight (Pounds): 130 Medications Current Medications Medications (Trade) Dose Ordered Sig/Leonor Route PRN Reason Start Time Stop Time Status Last Admin Dose Admin Acetaminophen (Tylenol) 650 mg Q4H PRN ORAL fever 11/11/19 09:00 12/11/19 08:59 Albuterol/ Ipratropium (Albuterol/ Ipratropium) 3 ml Q4H PRN HHN Shortness of Breath 11/11/19 09:00 11/16/19 08:59 Amlodipine Besylate (Norvasc) 5 mg DAILY NG 11/12/19 09:00 12/11/19 08:59 Cefepime HCl 1 gm/ Dextrose 55 ml @ 110 mls/hr Q24H IV 11/12/19 03:00 11/19/19 02:59 Heparin Sodium (Porcine) (Heparin 5000 units/ml) 5,000 units EVERY 12 HOURS SUBQ 11/11/19 09:00 12/26/19 08:59 11/11/19 09:54 Mirtazapine (Remeron) 7.5 mg BEDTIME GT 11/11/19 21:00 02/09/20 20:59 Nitroglycerin (Ntg) 0.4 mg Q5M PRN SL Prn Chest Pain 11/11/19 09:00 12/11/19 08:59 Ondansetron HCl (Zofran) 4 mg Q6H PRN IVP Nausea & Vomiting 11/11/19 09:00 12/11/19 08:59 Polyethylene Glycol (Miralax) 17 gm DAILYPRN PRN ORAL Constipation 11/11/19 09:00 12/11/19 08:59 Promethazine HCl/ Codeine (Phenergan with Codeine) 5 ml Q4H PRN ORAL For Cough 11/11/19 09:00 12/11/19 08:59 Sodium Chloride 1,000 ml @ 100 mls/hr Q10H IV 11/11/19 10:00 12/11/19 09:59 11/11/19 10:15 Tamsulosin HCl (Flomax) 0.4 mg DAILY ORAL 11/11/19 09:00 12/11/19 08:59 11/11/19 09:55 Temazepam (Restoril) 15 mg HSPRN PRN ORAL Insomnia 11/11/19 09:00 11/18/19 08:59 Vancomycin HCl (Vanco pharmacy to dose) 1 ea DAILY PRN MISC Per rx protocol 11/11/19 09:00 12/11/19 08:59 Assessment/Plan Assessment/Plan: Abx: IV Vancomycin 11/10- Cefepime 11/10- Assessment: Sepsis Pneumonia Acute hypoxic resp failure- on NRB 15L- high suspicion for COVID19 -CXR: Hazy basilar infiltrates left greater than right. 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 Will continue to follow along with you. Shannon Mark M.D. November 11, 2019 18:50
--- NOTE | 2019-11-11 19:00 | History and Physical Report ---
DATE OF ADMISSION: 11/11/2019 DATE AND TIME SEEN: On 11/11/2019 at 9 a.m. CONSULTANTS: 1. Ayana Ndiaye MD. 2. Ricardo Choudhary MD. 3. Les Rivas MD. 4. Chris Melgar MD. CHIEF COMPLAINT: Shortness of breath, possible COVID pneumonia, UTI, sepsis. BRIEF HISTORY: This is a 74-year-old male from [facility], who presents with increased shortness of breath and diagnosed with pneumonia, possible COVID, admitted to telemetry for further care. Currently, O2 mask in place, slightly short of breath, not talking much. REVIEW OF SYSTEMS: Unavailable. PAST MEDICAL HISTORY: Includes CVA, diabetes, hypertension, MONICA, and altered mental status. PAST SURGICAL HISTORY: Unknown. MEDICATIONS: Include cefepime, mirtazapine, vancomycin, amlodipine, nitroglycerin, promethazine, albuterol, and Zofran. ALLERGIES: Denies. SOCIAL HISTORY: Unable to obtain secondary to the patient's condition. OBJECTIVE: GENERAL: Lethargic in bed, slightly confused, O2 mask, slightly short of breath, awake. VITAL SIGNS: Temperature 98, pulse 80, respirations 46, blood pressure 132/67. HEENT: Normocephalic and atraumatic. NECK: Trachea midline. CARDIOVASCULAR: Slightly short of breath, on O2 mask. LUNGS: Slightly short of breath. ABDOMEN: No apparent wounds. EXTREMITIES: No cyanosis or clubbing. LABORATORY AND DIAGNOSTIC DATA: Labs at this time show white count 20, hemoglobin and hematocrit 10/30, platelets 445,000. BMP shows sodium 147, potassium 5.5, chloride 112, BUN 65, creatinine 1.6, glucose 159. Albumin 1.6. Urinalysis shows 1+ leukocyte esterase. ASSESSMENT: Pneumonia, UTI, sepsis, possible COVID, renal failure, leukocytosis, anemia, CVA, diabetes, malnutrition, MONICA, hypertension, and altered mental status. PLAN: 1. O2 and pulmonary treatment. 2. Antibiotics per Infectious Disease. 3. Blood pressure and blood sugar control. 4. Dietary followup. 5. PT and dietary evaluation. 6. CBC and BMP in the morning. Juan Singh D.O. DR: REGIS JOB#: [id number] CC:
[2019-11-11 20:00] VITALS: BP 118/61
[2019-11-12] VITALS: BP 139/67
--- NOTE | 2019-11-12 | Consultation ---
DATE OF CONSULTATION: 11/11/2019 CARDIOLOGY CONSULTATION CONSULTING PHYSICIAN: Chris Melgar M.D. REFERRING PHYSICIAN: Ayana Ndiaye MD. REASON FOR REFERRAL: Hypoxemia and congestion. HISTORY OF PRESENT ILLNESS: This is an unfortunate gentleman, 74 years old with history of multiple medical problems as delineated below. [facility] is a [facility] resident, presented to the emergency room by paramedics with respiratory distress, hypoxemia for the past few days, apparently worse today. Saturation on room air today was reported as 77%. Patient with cough, congestion, and some fevers and has been aphasic and has not been able to provide any meaningful history. Actually, unknown whether the patient has any pain or discomfort of any kind. PAST MEDICAL HISTORY: Positive for history of hypertension, altered mentation, history of respiratory insufficiency and failure, cerebrovascular accident, premature ventricular complexes, interstitial infiltrates, CVA, hyponatremia, renal insufficiency, nonsustained ventricular tachycardia, bradycardia felt to be possibly secondary to Reglan. 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 ALLERGIES: No allergies to medications. SOCIAL HISTORY: Unknown, the only thing known is the patient is a resident of convalescent facility. REVIEW OF SYSTEMS: Unable to obtain. PHYSICAL EXAMINATION: This was not performed by myself as the patient is high risk of being COVID positive. In order to prevent infection, this was not performed. I did review the physical examination by admission physician, Dr. Brown. In general chronically ill-appearing, thin gentleman. Bilateral eye movement inspection . Mucous membranes were moist. His neck has full range of motion. His lung exam shows clear and normal breath sounds. Cardiac examination felt to be regular rate. Abdomen Is soft, nontender. G-tube with minimal erythema. No drainage around it. Extremities, no edema. However, the notation by the emergency room physician was reviewed and it showed. GENERAL APPEARANCE: Alert, moderate distress, chronically ill. HEENT: Eyes, PERRLA. NECK: Full range of motion. No meningismus. RESPIRATORY: Chest was nontender. Decreased breath sounds are noted. Some crackles are noted. CARDIAC: Tachycardic. No murmurs. ABDOMINAL: Normal bowel sounds. Nontender. No masses. No organomegaly. SKIN: There was no rash. VITAL SIGNS: At the present time included blood pressure 134/71, temperature of 97.7 axillary, heart rate of 88, respirations of 33. LABORATORY DATA: White count of 20.9, hemoglobin 10.5, platelet count of 445, 79 polys, 10 lymphocytes. Blood gases, pH of 7.4, pCO2 of 40, pO2 of 102, bicarb of 26. Sodium is 147, potassium 5.5, chloride 112, bicarb 26, BUN of 65, creatinine of 1.6. His creatinine was as low as 0.7 on 08/15/2019. His glucose of 151 with A1c of 6.3. Magnesium of 2.7. Liver function tests were normal. CK of 36. ProBNP was only 664. Albumin of 1.6. Triglyceride 177 with LDL of 43. B12 of 700. TSH is 0.896. D-dimer was 289. Urinalysis shows too numerous to count rbc's, 5 to 10 wbc's, and sodium less than 20. Chest x-ray was performed, hazy basilar infiltrates on the left greater than right. EKG, sinus tachycardia, normal R-wave progression. There is no any significant ST or T-wave abnormalities on the EKG. Troponin that was performed was 0.03. ASSESSMENT AND PLAN: 1. Respiratory insufficiency. 2. History of cerebrovascular accident. 3. History of carotid occlusion. 4. Bilateral infiltrates and pneumonia. 5. Aphasia. 6. Diabetes mellitus. 7. Hyponatremia. 8. Renal insufficiency. Dr. Ndiaye, this patient was seen in cardiac consultation. The patient's sinus symptoms are very suspicious of possibly of a COVID infection that is being ruled out. The patient is in respiratory and droplet isolation at this time. His laboratories were followed. There is no evidence of myonecrosis. Cardiac enzymes appear to be normal. He has had an echocardiogram previously during the last hospitalization and that had shown normal ejection fraction that may be necessary to repeat that in the future, although at this time with COVID positive status, we will hold off on doing that. The patient will be on empiric antibiotics, receive IV fluids for treatment of hyponatremia and renal insufficiency to which I suspect he will respond. Continue respiratory isolation and will be observed on telemetry. So far, the telemetry has also shown sinus or sinus tachycardia. No other significant abnormalities are noted on monitor. I will follow up on the patient tomorrow and further recommendations will be provided as becomes necessary. Thank you for allowing me to participate in the care of this patient. Chrsi Melgar M.D. DR: CHRISTINE JOB#: [id number] CC:
[2019-11-12] MEDS: Cefepime HCl 1 GM in D5W 55 ML IV SCH (02:56)
[2019-11-12 04:00] VITALS: BP 118/51
[2019-11-12 08:00] VITALS: BP 129/64
[2019-11-12 08:40] LABS: HEMOGLOBIN 9.4 G/DL (14.2-18.0); MEAN CORPUSCULAR VOLUME 84 FL (80-99); PLATELET COUNT 450 K/UL (150-450); RED BLOOD COUNT 3.35 M/UL (4.70-6.10); RED CELL DISTRIBUTION WIDTH 12.7 % (11.6-14.8); WHITE BLOOD COUNT 18.8 K/UL (4.8-10.8)
[2019-11-12] MEDS: Tamsulosin 0.4mg cap ORAL SCH (08:40)
[2019-11-12] MEDS: Heparin 5000 units/ml inj SUBQ SCH ×2 (08:42→21:00)
[2019-11-12 09:07] LABS: % IRON SATURATION 13 % (15-50); IRON 13 ug/dL (50-175); TOTAL IRON BINDING CAPACITY 100 ug/dL (250-450)
[2019-11-12 09:10] LABS: ALANINE AMINOTRANSFERASE 28 U/L (12-78); ALBUMIN 1.5 G/DL (3.4-5.0); ALBUMIN/GLOBULIN RATIO 0.3 (1.0-2.7); ALKALINE PHOSPHATASE 78 U/L (46-116); ANION GAP 8 mmol/L (5-15); ASPARTATE AMINO TRANSFERASE 25 U/L (15-37); BILIRUBIN,TOTAL 0.3 MG/DL (0.2-1.0); BLOOD UREA NITROGEN 65 mg/dL (7-18); CALCIUM 8.1 MG/DL (8.5-10.1); CARBON DIOXIDE 27 MMOL/L (21-32); CHLORIDE 114 MMOL/L (98-107); CREATININE 1.4 MG/DL (0.55-1.30); POTASSIUM 4.5 MMOL/L (3.5-5.1); SODIUM 149 MMOL/L (136-145)
--- NOTE | 2019-11-12 09:46 | General Progress Note ---
Assessment/Plan Problem List: (1) DM (diabetes mellitus) ICD Codes: E11.9 - Type 2 diabetes mellitus without complications SNOMED: 83410367 (2) ARF (acute renal failure) ICD Codes: N17.9 - Acute kidney failure, unspecified SNOMED: 56046722 Qualifiers: Qualified Codes: N17.9 - Acute kidney failure, unspecified (3) Aspiration pneumonia ICD Codes: J69.0 - Pneumonitis due to inhalation of food and vomit SNOMED: 275103482 (4) UTI (urinary tract infection) ICD Codes: N39.0 - Urinary tract infection, site not specified SNOMED: 18726231 Qualifiers: Qualified Codes: N30.00 - Acute cystitis without hematuria (5) Hypertension ICD Codes: I10 - Essential (primary) hypertension SNOMED: 62483773 (6) Anemia ICD Codes: D64.9 - Anemia, unspecified SNOMED: 472686832 Qualifiers: Qualified Codes: D64.9 - Anemia, unspecified (7) Respiratory failure with hypoxia ICD Codes: J96.91 - Respiratory failure, unspecified with hypoxia SNOMED: 75753931914326091 Qualifiers: Qualified Codes: J96.01 - Acute respiratory failure with hypoxia (8) Suspected COVID-19 virus infection ICD Codes: Z20.828 - Contact with and (suspected) exposure to other viral communicable diseases SNOMED: 688916500 Status: unchanged Assessment/Plan: o2 pulm tx abx pt diet cbc bmp am Subjective Constitutional: Reports: weakness Respiratory: Reports: shortness of breath Allergies: Coded Allergies: No Known Allergies (Unverified , 09/16/19) UNABLE TO ASSESS (Unverified , 06/18/19) All Systems: reviewed and negative except above Subjective o2mask calm Objective Last 24 Hour Vital Signs Date Time Temp Pulse Resp B/P (MAP) Pulse Ox O2 Delivery O2 Flow Rate FiO2 11/12/19 08:41 98 129/64 11/12/19 08:00 97.0 98 18 129/64 (85) 96 11/12/19 04:00 96.6 67 26 118/51 (73) 98 11/12/19 04:00 89 11/12/19 00:00 97.0 97 20 139/67 (91) 96 11/12/19 00:00 89 5/29/20 21:00 Non-Rebreather 15.0 11/11/19 20:00 96.8 96 26 118/61 (80) 99 11/11/19 20:00 97 11/11/19 19:49 101 21 99 Non-Rebreather 15.0 100 11/11/19 18:44 100 11/11/19 16:00 97.7 88 30 134/71 (92) 100 11/11/19 12:00 108 11/11/19 12:00 97.7 79 46 115/61 (79) 99 11/11/19 10:26 98.7 Intake and Output 11/11/19 11/12/19 18:59 06:59 Intake Total 225 ml 1090 ml Output Total 300 ml 850 ml Balance -75 ml 240 ml Free Water 200 ml 450 ml Tube Feeding 25 ml 640 ml Output Urine Total 300 ml 850 ml # Bowel Movements 9 6 Laboratory Tests 11/11/19 15:00: Urine Color Yellow, Urine Appearance Cloudy, Urine pH 5, Urine Specific Peetz 1.015, Urine Protein 2+H, Urine Glucose (UA) Negative, Urine Ketones Negative, Urine Blood 5+H, Urine Nitrite Negative, Urine Bilirubin Negative, Urine Urobilinogen 1H, Urine Leukocyte Esterase 1+H, Urine RBC TntcH, Urine WBC 5-10H , Urine Squamous Epithelial Cells Occasional, Urine Amorphous Sediment ModerateH , Urine Bacteria ModerateH, Urine Eosinophils None seen, Urine Random Sodium < 20L, Urine Potassium Timed 79H 11/12/19 05:30: Urine Random Sodium < 20L 11/12/19 07:55: White Blood Count 18.8H, Red Blood Count 3.35L, Hemoglobin 9.4L, Hematocrit 28.0L, Mean Corpuscular Volume 84, Mean Corpuscular Hemoglobin 28.2, Mean Corpuscular Hemoglobin Concent 33.7, Red Cell Distribution Width 12.7, Platelet Count 450, Mean Platelet Volume 4.9L, Neutrophils (%) (Auto) , Lymphocytes (%) ( Auto) , Monocytes (%) (Auto) , Eosinophils (%) (Auto) , Basophils (%) (Auto) , Neutrophils % (Manual) [Pending], Lymphocytes % (Manual) [Pending], Platelet Estimate [Pending], Platelet Morphology [Pending], Erythrocyte Sedimentation Rate [Pending], Reticulocyte Count [Pending], Prothrombin Time 10.7, Prothromb Time International Ratio 1.0, Activated Partial Thromboplast Time 28, Sodium Level 149H, Potassium Level 4.5, Chloride Level 114H, Carbon Dioxide Level 27, Anion Gap 8, Blood Urea Nitrogen 65H, Creatinine 1.4H, Estimat Glomerular Filtration Rate 49.8, Glucose Level 123H, Calcium Level 8.1L, Magnesium Level [ Pending], Iron Level 13L, Total Iron Binding Capacity 100L, Percent Iron Saturation 13L, Unsaturated Iron Binding 87L, Total Bilirubin 0.3, Aspartate Amino Transf (AST/SGOT) 25, Alanine Aminotransferase (ALT/SGPT) 28, Alkaline Phosphatase 78, Lactate Dehydrogenase 200, Troponin I 0.000, C-Reactive Protein , Quantitative [Pending], Pro-B-Type Natriuretic Peptide 829H, Total Protein 6.6 , Albumin 1.5L, Globulin 5.1, Albumin/Globulin Ratio 0.3L, Carcinoembryonic Antigen [Pending], Vitamin B12 Level [Pending], Folate [Pending], Random Vancomycin Level 14.3 Height (Feet): 6 Height (Inches): 0.00 Weight (Pounds): 130 General Appearance: lethargic EENT: normal ENT inspection Neck: normal alignment Cardiovascular: normal rate, regular rhythm Respiratory/Chest: no respiratory distress, no accessory muscle use Extremities: normal inspection Skin: normal pigmentation Juan Singh DO November 12, 2019 09:46
--- NOTE | 2019-11-12 09:52 | Diagnostic Imaging Report ---
EXAM: XR Chest, 1 View CLINICAL HISTORY: DYSPNEA TECHNIQUE: Frontal view of the chest. COMPARISON: Chest x-ray 11/11/19 2 34 FINDINGS: Lungs: Mild interstitial thickening is slightly improved. No consolidation. Pleural space: Unremarkable. No pneumothorax. Heart: Unremarkable. No cardiomegaly. Mediastinum: Unremarkable. Bones/joints: Unremarkable. Other findings: Note is made of a skinfold along the right chest. IMPRESSION: Mild interstitial thickening is slightly improved.
[2019-11-12 12:00] VITALS: BP 135/53
--- NOTE | 2019-11-12 13:04 | Cardiology Progress Note ---
Assessment/Plan Assessment/Plan 1. Respiratory insufficiency. 2. History of cerebrovascular accident. 3. History of carotid occlusion. 4. Bilateral infiltrates and pneumonia. 5. Aphasia. 6. Diabetes mellitus. 7. Hyponatremia. 8. Renal insufficiency 9. C diff+ 10. GPC bacteremia wbc is better but still elevated fever curve decreased bp seems fine cr improved more freee water abx per ID remain in isolation covid status unkown and concernign for covid will remain PUI until covid result known tele persoanlly reviewed sinsu / sinsu tachy / pvc Subjective Subjective per rn Objective Last 24 Hour Vital Signs Date Time Temp Pulse Resp B/P (MAP) Pulse Ox O2 Delivery O2 Flow Rate FiO2 11/12/19 09:00 Non-Rebreather 15.0 11/12/19 08:41 98 129/64 11/12/19 08:00 97.0 98 18 129/64 (85) 96 11/12/19 08:00 95 11/12/19 04:00 96.6 67 26 118/51 (73) 98 11/12/19 04:00 89 11/12/19 00:00 97.0 97 20 139/67 (91) 96 11/12/19 00:00 89 11/11/19 21:00 Non-Rebreather 15.0 11/11/19 20:00 96.8 96 26 118/61 (80) 99 11/11/19 20:00 97 11/11/19 19:49 101 21 99 Non-Rebreather 15.0 100 11/11/19 18:44 100 11/11/19 16:00 97.7 88 30 134/71 (92) 100 General Appearance: patient on isolation, isolation precautions Intake and Output 11/11/19 11/12/19 18:59 06:59 Intake Total 225 ml 1090 ml Output Total 300 ml 850 ml Balance -75 ml 240 ml Free Water 200 ml 450 ml Tube Feeding 25 ml 640 ml Output Urine Total 300 ml 850 ml # Bowel Movements 9 6 Laboratory Tests Test 11/11/19 15:00 11/12/19 05:30 11/12/19 07:55 Urine Color Yellow Urine Appearance Cloudy Urine pH 5 (4.5-8.0) Urine Specific [place] 1.015 (1.005-1.035) Urine Protein 2+ (NEGATIVE) H Urine Glucose (UA) Negative (NEGATIVE) Urine Ketones Negative (NEGATIVE) Urine Blood 5+ (NEGATIVE) H Urine Nitrite Negative (NEGATIVE) Urine Bilirubin Negative (NEGATIVE) Urine Urobilinogen 1 MG/DL (0.0-1.0) H Urine Leukocyte Esterase 1+ (NEGATIVE) H Urine RBC Tntc /HPF (0 - 0) H Urine WBC 5-10 /HPF (0 - 0) H Urine Squamous Epithelial Cells Occasional /LPF Urine Amorphous Sediment Moderate /LPF (NONE) H Urine Bacteria Moderate /HPF (NONE) H Urine Eosinophils None seen (NONE SEEN) Urine Random Sodium < 20 mmol/L (20-110) L < 20 mmol/L (20-110) L Urine Potassium Timed 79 mmol/L (12-62) H White Blood Count 18.8 K/UL (4.8-10.8) H Red Blood Count 3.35 M/UL (4.70-6.10) L Hemoglobin 9.4 G/DL (14.2-18.0) L Hematocrit 28.0 % (42.0-52.0) L Mean Corpuscular Volume 84 FL (80-99) Mean Corpuscular Hemoglobin 28.2 PG (27.0-31.0) Mean Corpuscular Hemoglobin Concent 33.7 G/DL (32.0-36.0) Red Cell Distribution Width 12.7 % (11.6-14.8) Platelet Count 450 K/UL (150-450) Mean Platelet Volume 4.9 FL (6.5-10.1) L Neutrophils (%) (Auto) % (45.0-75.0) Lymphocytes (%) (Auto) % (20.0-45.0) Monocytes (%) (Auto) % (1.0-10.0) Eosinophils (%) (Auto) % (0.0-3.0) Basophils (%) (Auto) % (0.0-2.0) Differential Total Cells Counted 100 Neutrophils % (Manual) 81 % (45-75) H Lymphocytes % (Manual) 11 % (20-45) L Monocytes % (Manual) 7 % (1-10) Eosinophils % (Manual) 1 % (0-3) Basophils % (Manual) 0 % (0-2) Band Neutrophils 0 % (0-8) Platelet Estimate Adequate Platelet Morphology Normal Hypochromasia 1+ Erythrocyte Sedimentation Rate 60 MM/HR (0-20) H Reticulocyte Count 0.3 % (0.5-2.0) L Prothrombin Time 10.7 SEC (9.30-11.50) Prothromb Time International Ratio 1.0 (0.9-1.1) Activated Partial Thromboplast Time 28 SEC (23-33) Sodium Level 149 MMOL/L (136-145) H Potassium Level 4.5 MMOL/L (3.5-5.1) Chloride Level 114 MMOL/L (98-107) H Carbon Dioxide Level 27 MMOL/L (21-32) Anion Gap 8 mmol/L (5-15) Blood Urea Nitrogen 65 mg/dL (7-18) H Creatinine 1.4 MG/DL (0.55-1.30) H Estimat Glomerular Filtration Rate 49.8 mL/min (>60) Glucose Level 123 MG/DL (74-106) H Calcium Level 8.1 MG/DL (8.5-10.1) L Magnesium Level 3.2 MG/DL (1.8-2.4) H Iron Level 13 ug/dL (50-175) L Total Iron Binding Capacity 100 ug/dL (250-450) L Percent Iron Saturation 13 % (15-50) L Unsaturated Iron Binding 87 ug/dL (112-346) L Total Bilirubin 0.3 MG/DL (0.2-1.0) Aspartate Amino Transf (AST/SGOT) 25 U/L (15-37) Alanine Aminotransferase (ALT/SGPT) 28 U/L (12-78) Alkaline Phosphatase 78 U/L (46-116) Lactate Dehydrogenase 200 U/L (81-234) Troponin I 0.000 ng/mL (0.000-0.056) C-Reactive Protein, Quantitative 39.1 mg/dL (0.00-0.90) H Pro-B-Type Natriuretic Peptide 829 pg/mL (0-125) H Total Protein 6.6 G/DL (6.4-8.2) Albumin 1.5 G/DL (3.4-5.0) L Globulin 5.1 g/dL Albumin/Globulin Ratio 0.3 (1.0-2.7) L Carcinoembryonic Antigen Pending Vitamin B12 Level 923 PG/ML (193-986) Folate 19.5 NG/ML (8.6-58.9) Random Vancomycin Level 14.3 ug/mL Microbiology Date/Time Source Procedure Growth Status 11/11/19 02:30 Blood Blood Culture - Preliminary Gram Positive Cocci Resulted 11/11/19 02:15 Blood Blood Culture - Preliminary Gram Positive Cocci Resulted 11/11/19 11:30 Sputum Gram Stain - Final Resulted 11/11/19 11:30 Sputum Sputum Culture Pending Resulted 11/11/19 09:00 Stool Clostridium difficile Toxin Assay - Final Complete 11/11/19 15:00 Urine,Clean Catch Urine Culture - Preliminary NO GROWTH Resulted 11/11/19 02:30 Urine,Clean Catch Urine Culture - Preliminary Strep Species, Gamma-Hemolytic Resulted 11/11/19 02:30 Rectum VRE Culture - Final Enterococcus Faecium - Vre Complete Objective exam not performed as pt with fidencio HOWARD in isolation Chris Melgar MD November 12, 2019 13:04
--- NOTE | 2019-11-12 13:19 | Nephrology Progress Note ---
Assessment/Plan Problem List: (1) ARF (acute renal failure) (2) Hyperkalemia (3) DM (diabetes mellitus) (4) Suspected COVID-19 virus infection Assessment his 74-year-old male with multiple Multiple medical problem presents with respiratory symptoms and diarrhea Renal failure most likely prerenal azotemia secondary to dehydration Hyperkalemia on presentation also secondary to dehydration Sepsis pneumonia hypoxia UTI Anemia History of hypertension History of diabetes mellitus Suspected COVID-19 virus infection Hypoalbuminemia Plan Hydrate Keep the blood pressure and blood sugar in check Monitor renal parameters Antibiotics per ID Urine studies Monitor intake and output Cultures including stool for C. difficile Per orders Patient's CODE STATUS is full Subjective ROS Limited/Unobtainable: No Constitutional: Reports: malaise Objective Objective Last 24 Hour Vital Signs Date Time Temp Pulse Resp B/P (MAP) Pulse Ox O2 Delivery O2 Flow Rate FiO2 11/12/19 12:00 97.0 102 19 135/53 (80) 90 11/12/19 09:00 Non-Rebreather 15.0 11/12/19 08:41 98 129/64 11/12/19 08:00 97.0 98 18 129/64 (85) 96 11/12/19 08:00 95 11/12/19 04:00 96.6 67 26 118/51 (73) 98 11/12/19 04:00 89 11/12/19 00:00 97.0 97 20 139/67 (91) 96 11/12/19 00:00 89 11/11/19 21:00 Non-Rebreather 15.0 11/11/19 20:00 96.8 96 26 118/61 (80) 99 11/11/19 20:00 97 11/11/19 19:49 101 21 99 Non-Rebreather 15.0 100 11/11/19 18:44 100 11/11/19 16:00 97.7 88 30 134/71 (92) 100 Intake and Output 11/11/19 11/12/19 18:59 06:59 Intake Total 225 ml 1090 ml Output Total 300 ml 850 ml Balance -75 ml 240 ml Free Water 200 ml 450 ml Tube Feeding 25 ml 640 ml Output Urine Total 300 ml 850 ml # Bowel Movements 9 6 Laboratory Tests 11/11/19 15:00: Urine Color Yellow, Urine Appearance Cloudy, Urine pH 5, Urine Specific [place] 1.015, Urine Protein 2+H, Urine Glucose (UA) Negative, Urine Ketones Negative, Urine Blood 5+H, Urine Nitrite Negative, Urine Bilirubin Negative, Urine Urobilinogen 1H, Urine Leukocyte Esterase 1+H, Urine RBC TntcH, Urine WBC 5-10H , Urine Squamous Epithelial Cells Occasional, Urine Amorphous Sediment ModerateH , Urine Bacteria ModerateH, Urine Eosinophils None seen, Urine Random Sodium < 20L, Urine Potassium Timed 79H 11/12/19 05:30: Urine Random Sodium < 20L 11/12/19 07:55: White Blood Count 18.8H, Red Blood Count 3.35L, Hemoglobin 9.4L, Hematocrit 28.0L, Mean Corpuscular Volume 84, Mean Corpuscular Hemoglobin 28.2, Mean Corpuscular Hemoglobin Concent 33.7, Red Cell Distribution Width 12.7, Platelet Count 450, Mean Platelet Volume 4.9L, Neutrophils (%) (Auto) , Lymphocytes (%) ( Auto) , Monocytes (%) (Auto) , Eosinophils (%) (Auto) , Basophils (%) (Auto) , Differential Total Cells Counted 100, Neutrophils % (Manual) 81H, Lymphocytes % (Manual) 11L, Monocytes % (Manual) 7, Eosinophils % (Manual) 1, Basophils % ( Manual) 0, Band Neutrophils 0, Platelet Estimate Adequate, Platelet Morphology Normal, Hypochromasia 1+, Erythrocyte Sedimentation Rate 60H, Reticulocyte Count 0.3L, Prothrombin Time 10.7, Prothromb Time International Ratio 1.0, Activated Partial Thromboplast Time 28, Sodium Level 149H, Potassium Level 4.5, Chloride Level 114H, Carbon Dioxide Level 27, Anion Gap 8, Blood Urea Nitrogen 65H, Creatinine 1.4H, Estimat Glomerular Filtration Rate 49.8, Glucose Level 123H, Calcium Level 8.1L, Magnesium Level 3.2H, Iron Level 13L, Total Iron Binding Capacity 100L, Percent Iron Saturation 13L, Unsaturated Iron Binding 87L , Total Bilirubin 0.3, Aspartate Amino Transf (AST/SGOT) 25, Alanine Aminotransferase (ALT/SGPT) 28, Alkaline Phosphatase 78, Lactate Dehydrogenase 200, Troponin I 0.000, C-Reactive Protein, Quantitative 39.1H, Pro-B-Type Natriuretic Peptide 829H, Total Protein 6.6, Albumin 1.5L, Globulin 5.1, Albumin /Globulin Ratio 0.3L, Carcinoembryonic Antigen [Pending], Vitamin B12 Level 923 , Folate 19.5, Random Vancomycin Level 14.3 Height (Feet): 6 Height (Inches): 0.00 Weight (Pounds): 130 General Appearance: no apparent distress Cardiovascular: tachycardia Respiratory/Chest: decreased breath sounds Abdomen: soft, other - GT tube in place Ricardo Choudhary MD November 12, 2019 13:19
[2019-11-12] MEDS: Vancomycin 1.25gm/NS Premix q24h IVPB SCH (13:23)
--- NOTE | 2019-11-12 13:23 | Surgery Progress Note ---
Surgery Progress Note Subjective Additional Comments blood cultures gram pos c diff positive exam stable isolation no n/v/f/c Objective Last 24 Hour Vital Signs Date Time Temp Pulse Resp B/P (MAP) Pulse Ox O2 Delivery O2 Flow Rate FiO2 11/12/19 12:00 97.0 102 19 135/53 (80) 90 11/12/19 09:00 Non-Rebreather 15.0 11/12/19 08:41 98 129/64 11/12/19 08:00 97.0 98 18 129/64 (85) 96 11/12/19 08:00 95 11/12/19 04:00 96.6 67 26 118/51 (73) 98 11/12/19 04:00 89 11/12/19 00:00 97.0 97 20 139/67 (91) 96 11/12/19 00:00 89 11/11/19 21:00 Non-Rebreather 15.0 11/11/19 20:00 96.8 96 26 118/61 (80) 99 11/11/19 20:00 97 11/11/19 19:49 101 21 99 Non-Rebreather 15.0 100 11/11/19 18:44 100 11/11/19 16:00 97.7 88 30 134/71 (92) 100 I&O Intake and Output 11/11/19 11/12/19 19:00 07:00 Intake Total 265 ml 1050 ml Output Total 300 ml 850 ml Balance -35 ml 200 ml Free Water 200 ml 450 ml Tube Feeding 65 ml 600 ml Output Urine Total 300 ml 850 ml # Bowel Movements 9 6 Dressing: other Wound: other Drains: other Cardiovascular: RSR Respiratory: decreased breath sounds Abdomen: soft, non-tender, present bowel sounds Extremities: no tenderness, no cyanosis Laboratory Tests Test 11/11/19 15:00 11/12/19 05:30 11/12/19 07:55 Urine Color Yellow Urine Appearance Cloudy Urine pH 5 (4.5-8.0) Urine Specific [place] 1.015 (1.005-1.035) Urine Protein 2+ (NEGATIVE) H Urine Glucose (UA) Negative (NEGATIVE) Urine Ketones Negative (NEGATIVE) Urine Blood 5+ (NEGATIVE) H Urine Nitrite Negative (NEGATIVE) Urine Bilirubin Negative (NEGATIVE) Urine Urobilinogen 1 MG/DL (0.0-1.0) H Urine Leukocyte Esterase 1+ (NEGATIVE) H Urine RBC Tntc /HPF (0 - 0) H Urine WBC 5-10 /HPF (0 - 0) H Urine Squamous Epithelial Cells Occasional /LPF Urine Amorphous Sediment Moderate /LPF (NONE) H Urine Bacteria Moderate /HPF (NONE) H Urine Eosinophils None seen (NONE SEEN) Urine Random Sodium < 20 mmol/L (20-110) L < 20 mmol/L (20-110) L Urine Potassium Timed 79 mmol/L (12-62) H White Blood Count 18.8 K/UL (4.8-10.8) H Red Blood Count 3.35 M/UL (4.70-6.10) L Hemoglobin 9.4 G/DL (14.2-18.0) L Hematocrit 28.0 % (42.0-52.0) L Mean Corpuscular Volume 84 FL (80-99) Mean Corpuscular Hemoglobin 28.2 PG (27.0-31.0) Mean Corpuscular Hemoglobin Concent 33.7 G/DL (32.0-36.0) Red Cell Distribution Width 12.7 % (11.6-14.8) Platelet Count 450 K/UL (150-450) Mean Platelet Volume 4.9 FL (6.5-10.1) L Neutrophils (%) (Auto) % (45.0-75.0) Lymphocytes (%) (Auto) % (20.0-45.0) Monocytes (%) (Auto) % (1.0-10.0) Eosinophils (%) (Auto) % (0.0-3.0) Basophils (%) (Auto) % (0.0-2.0) Differential Total Cells Counted 100 Neutrophils % (Manual) 81 % (45-75) H Lymphocytes % (Manual) 11 % (20-45) L Monocytes % (Manual) 7 % (1-10) Eosinophils % (Manual) 1 % (0-3) Basophils % (Manual) 0 % (0-2) Band Neutrophils 0 % (0-8) Platelet Estimate Adequate Platelet Morphology Normal Hypochromasia 1+ Erythrocyte Sedimentation Rate 60 MM/HR (0-20) H Reticulocyte Count 0.3 % (0.5-2.0) L Prothrombin Time 10.7 SEC (9.30-11.50) Prothromb Time International Ratio 1.0 (0.9-1.1) Activated Partial Thromboplast Time 28 SEC (23-33) Sodium Level 149 MMOL/L (136-145) H Potassium Level 4.5 MMOL/L (3.5-5.1) Chloride Level 114 MMOL/L (98-107) H Carbon Dioxide Level 27 MMOL/L (21-32) Anion Gap 8 mmol/L (5-15) Blood Urea Nitrogen 65 mg/dL (7-18) H Creatinine 1.4 MG/DL (0.55-1.30) H Estimat Glomerular Filtration Rate 49.8 mL/min (>60) Glucose Level 123 MG/DL (74-106) H Calcium Level 8.1 MG/DL (8.5-10.1) L Magnesium Level 3.2 MG/DL (1.8-2.4) H Iron Level 13 ug/dL (50-175) L Total Iron Binding Capacity 100 ug/dL (250-450) L Percent Iron Saturation 13 % (15-50) L Unsaturated Iron Binding 87 ug/dL (112-346) L Total Bilirubin 0.3 MG/DL (0.2-1.0) Aspartate Amino Transf (AST/SGOT) 25 U/L (15-37) Alanine Aminotransferase (ALT/SGPT) 28 U/L (12-78) Alkaline Phosphatase 78 U/L (46-116) Lactate Dehydrogenase 200 U/L (81-234) Troponin I 0.000 ng/mL (0.000-0.056) C-Reactive Protein, Quantitative 39.1 mg/dL (0.00-0.90) H Pro-B-Type Natriuretic Peptide 829 pg/mL (0-125) H Total Protein 6.6 G/DL (6.4-8.2) Albumin 1.5 G/DL (3.4-5.0) L Globulin 5.1 g/dL Albumin/Globulin Ratio 0.3 (1.0-2.7) L Carcinoembryonic Antigen Pending Vitamin B12 Level 923 PG/ML (193-986) Folate 19.5 NG/ML (8.6-58.9) Random Vancomycin Level 14.3 ug/mL Plan Problems: (1) Decubitus skin ulcer Assessment & Plan: Pt presented on admission with large sacral wound. Base of wound with areas that area purple and indurated sacrococcygeal,L sacrum/L gluteus,Scattered wounds with maceration L gluteus, one wound R sacrum with Biofilm, Surrounding non-blanching erythema entire buttocks. Small dry scabbed area noted to lumbar area. Unstageable Pressure Injury L heel. Base of wound is necrotic with surrounding non-blanching erythema. Tx.plan: Apply Moisture Barrier Paste to Buttocks. Cover Sacrum, R and L gluteal cheeks with Optifoam drsgs. Change every 3 days and prn. Apply Betadine to L heel. Cover with Optifoam drsg. Change every 3 days and prn. Reposition at least every 2hours or as tolerated. Place Pillow between knees. Off-load heels with Pillow. APM/BRUNILDA Mattress overlay. (2) Sepsis Assessment & Plan: 74-year-old male multi-medical comorbidities admitted for respiratory deficiency currently tachypneic, leukocytosis, malnutrition, hypoalbuminemia. Complete physical exam performed identified areas of concerned given patient's comorbidities current condition high risk for deteriorationNo active infection identified from patient's wounds and likely respiratory nature. Chest x-ray reviewed. No acute surgical intervention planned at this time Preventive measures IV antibiotics per infectious disease Okay for feeding once stable respiratory Appreciate Pulm input c diff positive blood cx noted We will follow with recommendations thank you for let me participate patient's care (3) Left carotid artery occlusion (4) Left middle cerebral artery stroke (5) DM (diabetes mellitus) (6) ARF (acute renal failure) (7) Ventricular tachyarrhythmia (8) Aspiration pneumonia (9) Hypertension (10) UTI (urinary tract infection) (11) Anemia (12) Respiratory failure with hypoxia (13) Suspected COVID-19 virus infection Elfego Payne November 12, 2019 13:23
[2019-11-12 16:00] VITALS: BP 119/69
[2019-11-12 20:00] VITALS: BP 140/64
[2019-11-13] VITALS: BP 145/60
[2019-11-13] MEDS: Cefepime HCl 1 GM in D5W 55 ML IV SCH (02:47)
[2019-11-13 04:00] VITALS: BP 145/60
--- NOTE | 2019-11-13 04:15 | Consultation ---
DATE OF CONSULTATION: 11/12/2019 HISTORY OF PRESENT ILLNESS: This is a 74-year-old male who is well familiar to this MD from previous encounter at [facility] [place]. The patient has history of multiple medical issues including diabetes mellitus, CVA, and hypertension. The patient resides at [facility]. The patient also is having a history of dementia as well as psychotic disorder. We are familiar to this patient from [facility]. The patient behavior, delusional, easily agitated. He is pulling out his lines. I was asked by Dr. Singh to evaluate this patient. PAST MEDICAL HISTORY: Significant for CVA, diabetes, hypertension. ALLERGIES: No known drug allergies. SUBSTANCE ABUSE HISTORY: No known illicit drug use or alcohol. MENTAL STATUS EXAMINATION: The patient is having waxing and waning consciousness, disoriented. Mood is agitated. Affect is flat. Thought process, there is a paucity of thought content. Thought content, no suicidal or homicidal ideation. Cognition is impaired. Insight and judgment are impaired. ASSESSMENT: 1. Acute encephalopathy. 2. Depression. PLAN: 1. Soft restraints. 2. Remeron 7.5 mg at bedtime. 3. PRN medications. 4. Discussed with Dr. Singh. Jessica Quinonez M.D. DR: JAMIN JOB#: [id number] CC: MELINDA
[2019-11-13 06:59] LABS: HEMATOCRIT 28.2 % (42.0-52.0); HEMOGLOBIN 9.7 G/DL (14.2-18.0); MEAN CORPUSCULAR VOLUME 83 FL (80-99); PLATELET COUNT 522 K/UL (150-450); RED BLOOD COUNT 3.39 M/UL (4.70-6.10); RED CELL DISTRIBUTION WIDTH 12.8 % (11.6-14.8)
[2019-11-13 07:17] LABS: WHITE BLOOD COUNT 23.5 K/UL (4.8-10.8)
[2019-11-13 08:00] VITALS: BP 130/65
[2019-11-13] MEDS: Tamsulosin 0.4mg cap ORAL SCH (08:17)
[2019-11-13] MEDS: Heparin 5000 units/ml inj SUBQ SCH ×2 (08:18→21:00)
[2019-11-13 08:29] LABS: ALANINE AMINOTRANSFERASE 23 U/L (12-78); ALBUMIN 1.4 G/DL (3.4-5.0); ALBUMIN/GLOBULIN RATIO 0.3 (1.0-2.7); ALKALINE PHOSPHATASE 72 U/L (46-116); ANION GAP 10 mmol/L (5-15); ASPARTATE AMINO TRANSFERASE 18 U/L (15-37); BILIRUBIN,TOTAL 0.3 MG/DL (0.2-1.0); BLOOD UREA NITROGEN 67 mg/dL (7-18); CALCIUM 7.6 MG/DL (8.5-10.1); CARBON DIOXIDE 25 MMOL/L (21-32); CHLORIDE 116 MMOL/L (98-107); CREATININE 1.4 MG/DL (0.55-1.30); PHOSPHORUS 3.9 MG/DL (2.5-4.9); POTASSIUM 4.6 MMOL/L (3.5-5.1); SODIUM 151 MMOL/L (136-145)
--- NOTE | 2019-11-13 08:57 | General Progress Note ---
Assessment/Plan Problem List: (1) DM (diabetes mellitus) ICD Codes: E11.9 - Type 2 diabetes mellitus without complications SNOMED: 98711178 (2) ARF (acute renal failure) ICD Codes: N17.9 - Acute kidney failure, unspecified SNOMED: 98103606 Qualifiers: Qualified Codes: N17.9 - Acute kidney failure, unspecified (3) Aspiration pneumonia ICD Codes: J69.0 - Pneumonitis due to inhalation of food and vomit SNOMED: 612302589 (4) UTI (urinary tract infection) ICD Codes: N39.0 - Urinary tract infection, site not specified SNOMED: 36331866 Qualifiers: Qualified Codes: N30.00 - Acute cystitis without hematuria (5) Hypertension ICD Codes: I10 - Essential (primary) hypertension SNOMED: 57807899 (6) Anemia ICD Codes: D64.9 - Anemia, unspecified SNOMED: 857136726 Qualifiers: Qualified Codes: D64.9 - Anemia, unspecified (7) Respiratory failure with hypoxia ICD Codes: J96.91 - Respiratory failure, unspecified with hypoxia SNOMED: 92637379769433559 Qualifiers: Qualified Codes: J96.01 - Acute respiratory failure with hypoxia (8) Suspected COVID-19 virus infection ICD Codes: Z20.828 - Contact with and (suspected) exposure to other viral communicable diseases SNOMED: 706428254 Status: unchanged Assessment/Plan: o2 pulm tx abx pt diet cbc bmp am Subjective Constitutional: Reports: weakness Allergies: Coded Allergies: No Known Allergies (Unverified , 09/16/19) All Systems: reviewed and negative except above Subjective o2mask calm Objective Last 24 Hour Vital Signs Date Time Temp Pulse Resp B/P (MAP) Pulse Ox O2 Delivery O2 Flow Rate FiO2 11/13/19 08:17 106 130/65 11/13/19 08:00 96.9 106 22 130/65 (86) 98 11/13/19 04:00 96.6 104 20 145/60 (88) 100 11/13/19 04:00 104 11/13/19 00:00 93 11/13/19 00:00 97.0 99 20 145/60 (88) 100 11/12/19 21:00 Non-Rebreather 15.0 11/12/19 20:00 87 11/12/19 20:00 96.8 91 20 140/64 (89) 100 11/12/19 16:00 88 11/12/19 16:00 96.8 93 20 119/69 (86) 100 11/12/19 12:00 97.0 102 19 135/53 (80) 90 11/12/19 12:00 94 11/12/19 09:00 Non-Rebreather 15.0 Intake and Output 11/12/19 11/13/19 19:00 07:00 Intake Total 240 ml Output Total 800 ml 500 ml Balance -560 ml -500 ml Intake Oral 240 ml Output Urine Total 800 ml 500 ml # Voids 2 # Bowel Movements 4 5 Laboratory Tests 11/13/19 06:25: White Blood Count 23.5*H, Red Blood Count 3.39L, Hemoglobin 9.7L, Hematocrit 28.2L, Mean Corpuscular Volume 83, Mean Corpuscular Hemoglobin 28.4, Mean Corpuscular Hemoglobin Concent 34.3, Red Cell Distribution Width 12.8, Platelet Count 522H, Mean Platelet Volume 6.0L, Neutrophils (%) (Auto) , Lymphocytes (%) (Auto) , Monocytes (%) (Auto) , Eosinophils (%) (Auto) , Basophils (%) (Auto) , Differential Total Cells Counted 100, Neutrophils % (Manual) 84H, Lymphocytes % (Manual) 10L, Monocytes % (Manual) 5, Eosinophils % (Manual) 1, Basophils % ( Manual) 0, Band Neutrophils 0, Platelet Estimate IncreasedH, Platelet Morphology Normal, Polychromasia , Hypochromasia 1+, Sodium Level 151H, Potassium Level 4.6, Chloride Level 116H, Carbon Dioxide Level 25, Anion Gap 10 , Blood Urea Nitrogen 67H, Creatinine 1.4H, Estimat Glomerular Filtration Rate 49.8, Glucose Level 164H, Uric Acid 8.3H, Calcium Level 7.6L, Phosphorus Level 3.9, Magnesium Level 2.9H, Total Bilirubin 0.3, Aspartate Amino Transf (AST/SGOT ) 18, Alanine Aminotransferase (ALT/SGPT) 23, Alkaline Phosphatase 72, Total Protein 6.1L, Albumin 1.4L, Globulin 4.7, Albumin/Globulin Ratio 0.3L Height (Feet): 6 Height (Inches): 0.00 Weight (Pounds): 130 General Appearance: lethargic EENT: normal ENT inspection Neck: normal alignment Cardiovascular: normal rate, regular rhythm Respiratory/Chest: no respiratory distress, no accessory muscle use Skin: normal pigmentation Juan Singh DO November 13, 2019 08:57
--- NOTE | 2019-11-13 10:16 | Nephrology Progress Note ---
Assessment/Plan Problem List: (1) ARF (acute renal failure) (2) Hyperkalemia (3) DM (diabetes mellitus) (4) Suspected COVID-19 virus infection Assessment his 74-year-old male with multiple Multiple medical problem presents with respiratory symptoms and diarrhea Renal failure most likely prerenal azotemia secondary to dehydration Hyperkalemia on presentation also secondary to dehydration Sepsis pneumonia hypoxia UTI Anemia History of hypertension History of diabetes mellitus Suspected COVID-19 virus infection Hypoalbuminemia Plan Hydrate Keep the blood pressure and blood sugar in check Monitor renal parameters Antibiotics per ID Urine studies Monitor intake and output Cultures including stool for C. difficile Per orders Patient's CODE STATUS is full Subjective ROS Limited/Unobtainable: No Constitutional: Reports: malaise, weakness Objective Objective Last 24 Hour Vital Signs Date Time Temp Pulse Resp B/P (MAP) Pulse Ox O2 Delivery O2 Flow Rate FiO2 11/13/19 09:00 Non-Rebreather 15.0 11/13/19 08:17 106 130/65 11/13/19 08:00 104 11/13/19 08:00 96.9 106 22 130/65 (86) 98 11/13/19 04:00 96.6 104 20 145/60 (88) 100 11/13/19 04:00 104 11/13/19 00:00 93 11/13/19 00:00 97.0 99 20 145/60 (88) 100 11/12/19 21:00 Non-Rebreather 15.0 11/12/19 20:00 87 11/12/19 20:00 96.8 91 20 140/64 (89) 100 11/12/19 16:00 88 11/12/19 16:00 96.8 93 20 119/69 (86) 100 11/12/19 12:00 97.0 102 19 135/53 (80) 90 11/12/19 12:00 94 Intake and Output 11/12/19 11/13/19 19:00 07:00 Intake Total 240 ml Output Total 800 ml 500 ml Balance -560 ml -500 ml Intake Oral 240 ml Output Urine Total 800 ml 500 ml # Voids 2 # Bowel Movements 4 5 Laboratory Tests 11/13/19 06:25: White Blood Count 23.5*H, Red Blood Count 3.39L, Hemoglobin 9.7L, Hematocrit 28.2L, Mean Corpuscular Volume 83, Mean Corpuscular Hemoglobin 28.4, Mean Corpuscular Hemoglobin Concent 34.3, Red Cell Distribution Width 12.8, Platelet Count 522H, Mean Platelet Volume 6.0L, Neutrophils (%) (Auto) , Lymphocytes (%) (Auto) , Monocytes (%) (Auto) , Eosinophils (%) (Auto) , Basophils (%) (Auto) , Differential Total Cells Counted 100, Neutrophils % (Manual) 84H, Lymphocytes % (Manual) 10L, Monocytes % (Manual) 5, Eosinophils % (Manual) 1, Basophils % ( Manual) 0, Band Neutrophils 0, Platelet Estimate IncreasedH, Platelet Morphology Normal, Polychromasia , Hypochromasia 1+, Sodium Level 151H, Potassium Level 4.6, Chloride Level 116H, Carbon Dioxide Level 25, Anion Gap 10 , Blood Urea Nitrogen 67H, Creatinine 1.4H, Estimat Glomerular Filtration Rate 49.8, Glucose Level 164H, Uric Acid 8.3H, Calcium Level 7.6L, Phosphorus Level 3.9, Magnesium Level 2.9H, Total Bilirubin 0.3, Aspartate Amino Transf (AST/SGOT ) 18, Alanine Aminotransferase (ALT/SGPT) 23, Alkaline Phosphatase 72, Total Protein 6.1L, Albumin 1.4L, Globulin 4.7, Albumin/Globulin Ratio 0.3L Height (Feet): 6 Height (Inches): 0.00 Weight (Pounds): 130 General Appearance: no apparent distress, lethargic Cardiovascular: tachycardia Respiratory/Chest: decreased breath sounds Abdomen: distended Ricardo Choudhary MD November 13, 2019 10:16
[2019-11-13 12:00] VITALS: BP 138/68
[2019-11-13] MEDS: Vancomycin 1.25gm/NS Premix q24h IVPB SCH (12:16)
--- NOTE | 2019-11-13 12:23 | Surgery Progress Note ---
Surgery Progress Note Subjective Additional Comments worsening leukocytosis c diff pos Objective Last 24 Hour Vital Signs Date Time Temp Pulse Resp B/P (MAP) Pulse Ox O2 Delivery O2 Flow Rate FiO2 11/13/19 09:00 Non-Rebreather 15.0 11/13/19 08:17 106 130/65 11/13/19 08:09 98 Non-Rebreather 15.0 100 11/13/19 08:00 104 11/13/19 08:00 96.9 106 22 130/65 (86) 98 11/13/19 04:00 96.6 104 20 145/60 (88) 100 11/13/19 04:00 104 11/13/19 00:00 93 11/13/19 00:00 97.0 99 20 145/60 (88) 100 11/12/19 21:00 Non-Rebreather 15.0 11/12/19 20:00 87 11/12/19 20:00 96.8 91 20 140/64 (89) 100 11/12/19 16:00 88 11/12/19 16:00 96.8 93 20 119/69 (86) 100 I&O Intake and Output 11/12/19 11/13/19 19:00 07:00 Intake Total 240 ml Output Total 800 ml 500 ml Balance -560 ml -500 ml Intake Oral 240 ml Output Urine Total 800 ml 500 ml # Voids 2 # Bowel Movements 4 5 Dressing: other Wound: other Drains: other Cardiovascular: RSR Respiratory: decreased breath sounds Abdomen: soft, non-tender, present bowel sounds Extremities: no cyanosis Laboratory Tests Test 11/13/19 06:25 White Blood Count 23.5 K/UL (4.8-10.8) *H Red Blood Count 3.39 M/UL (4.70-6.10) L Hemoglobin 9.7 G/DL (14.2-18.0) L Hematocrit 28.2 % (42.0-52.0) L Mean Corpuscular Volume 83 FL (80-99) Mean Corpuscular Hemoglobin 28.4 PG (27.0-31.0) Mean Corpuscular Hemoglobin Concent 34.3 G/DL (32.0-36.0) Red Cell Distribution Width 12.8 % (11.6-14.8) Platelet Count 522 K/UL (150-450) H Mean Platelet Volume 6.0 FL (6.5-10.1) L Neutrophils (%) (Auto) % (45.0-75.0) Lymphocytes (%) (Auto) % (20.0-45.0) Monocytes (%) (Auto) % (1.0-10.0) Eosinophils (%) (Auto) % (0.0-3.0) Basophils (%) (Auto) % (0.0-2.0) Differential Total Cells Counted 100 Neutrophils % (Manual) 84 % (45-75) H Lymphocytes % (Manual) 10 % (20-45) L Monocytes % (Manual) 5 % (1-10) Eosinophils % (Manual) 1 % (0-3) Basophils % (Manual) 0 % (0-2) Band Neutrophils 0 % (0-8) Platelet Estimate Increased H Platelet Morphology Normal Polychromasia Hypochromasia 1+ Sodium Level 151 MMOL/L (136-145) H Potassium Level 4.6 MMOL/L (3.5-5.1) Chloride Level 116 MMOL/L (98-107) H Carbon Dioxide Level 25 MMOL/L (21-32) Anion Gap 10 mmol/L (5-15) Blood Urea Nitrogen 67 mg/dL (7-18) H Creatinine 1.4 MG/DL (0.55-1.30) H Estimat Glomerular Filtration Rate 49.8 mL/min (>60) Glucose Level 164 MG/DL (74-106) H Uric Acid 8.3 MG/DL (2.6-7.2) H Calcium Level 7.6 MG/DL (8.5-10.1) L Phosphorus Level 3.9 MG/DL (2.5-4.9) Magnesium Level 2.9 MG/DL (1.8-2.4) H Total Bilirubin 0.3 MG/DL (0.2-1.0) Aspartate Amino Transf (AST/SGOT) 18 U/L (15-37) Alanine Aminotransferase (ALT/SGPT) 23 U/L (12-78) Alkaline Phosphatase 72 U/L (46-116) Total Protein 6.1 G/DL (6.4-8.2) L Albumin 1.4 G/DL (3.4-5.0) L Globulin 4.7 g/dL Albumin/Globulin Ratio 0.3 (1.0-2.7) L Plan Problems: (1) Decubitus skin ulcer Assessment & Plan: Pt presented on admission with large sacral wound. Base of wound with areas that area purple and indurated sacrococcygeal,L sacrum/L gluteus,Scattered wounds with maceration L gluteus, one wound R sacrum with Biofilm, Surrounding non-blanching erythema entire buttocks. Small dry scabbed area noted to lumbar area. Unstageable Pressure Injury L heel. Base of wound is necrotic with surrounding non-blanching erythema. Tx.plan: Apply Moisture Barrier Paste to Buttocks. Cover Sacrum, R and L gluteal cheeks with Optifoam drsgs. Change every 3 days and prn. Apply Betadine to L heel. Cover with Optifoam drsg. Change every 3 days and prn. Reposition at least every 2hours or as tolerated. Place Pillow between knees. Off-load heels with Pillow. APM/BRUNILDA Mattress overlay. (2) Sepsis Assessment & Plan: 74-year-old male multi-medical comorbidities admitted for respiratory deficiency currently tachypneic, leukocytosis, malnutrition, hypoalbuminemia. Complete physical exam performed identified areas of concerned given patient's comorbidities current condition high risk for deteriorationNo active infection identified from patient's wounds and likely respiratory nature. Chest x-ray reviewed. No acute surgical intervention planned at this time Preventive measures IV antibiotics per infectious disease Okay for feeding once stable respiratory Appreciate Pulm input c diff positive on vanco blood cx noted We will follow with recommendations thank you for let me participate patient's care (3) Left carotid artery occlusion (4) Left middle cerebral artery stroke (5) DM (diabetes mellitus) (6) ARF (acute renal failure) (7) Ventricular tachyarrhythmia (8) Aspiration pneumonia (9) Hypertension (10) UTI (urinary tract infection) (11) Anemia (12) Respiratory failure with hypoxia (13) Suspected COVID-19 virus infection Elfego Payne November 13, 2019 12:23
--- NOTE | 2019-11-13 13:56 | Infectious Diseases Prog Note ---
Assessment/Plan Assessment/Plan Assessment: Severe Sepsis Pneumonia Acute hypoxic resp failure- on NRB 15L- high suspicion for COVID19 -11/11 CXR: Mild interstitial thickening is slightly improved. -11/10 CXR: Hazy basilar infiltrates left greater than right. sp cx GNR -11/10 SARS-COV2 pending Probable UTI -u/a wbc 5-10, nit neg, leuk +1, RBC TNCT; ucx 10-20k E. 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 Will continue to follow along with you. Subjective Allergies: Coded Allergies: No Known Allergies (Unverified , 09/16/19) Subjective afebrile >48hrs on NRB 15L, Fio2 100% wbc increased Cdiff positive Covid pending Objective Vital Signs Last 24 Hour Vital Signs Date Time Temp Pulse Resp B/P (MAP) Pulse Ox O2 Delivery O2 Flow Rate FiO2 11/13/19 12:00 102 11/13/19 12:00 97.0 102 22 138/68 (91) 97 11/13/19 09:00 Non-Rebreather 15.0 11/13/19 08:17 106 130/65 11/13/19 08:09 98 Non-Rebreather 15.0 100 11/13/19 08:00 104 11/13/19 08:00 96.9 106 22 130/65 (86) 98 11/13/19 04:00 96.6 104 20 145/60 (88) 100 11/13/19 04:00 104 11/13/19 00:00 93 11/13/19 00:00 97.0 99 20 145/60 (88) 100 11/12/19 21:00 Non-Rebreather 15.0 11/12/19 20:00 87 11/12/19 20:00 96.8 91 20 140/64 (89) 100 11/12/19 16:00 88 11/12/19 16:00 96.8 93 20 119/69 (86) 100 Height (Feet): 6 Height (Inches): 0.00 Weight (Pounds): 130 Objective not examined to limit COVID19 exposure Microbiology Date/Time Source Procedure Growth Status 11/11/19 02:30 Blood Blood Culture - Preliminary Staphylococcus Sp Coag Neg Resulted 11/11/19 02:15 Blood Blood Culture - Preliminary Staphylococcus Sp Coag Neg Resulted 11/11/19 11:30 Sputum Gram Stain - Final Resulted 11/11/19 11:30 Sputum Culture - Preliminary Gram Negative Jarocho Resulted 11/11/19 02:30 Nasal Nares MRSA Culture - Final Staphylococcus Aureus - Mrsa Complete 11/11/19 09:00 Stool Clostridium difficile Toxin Assay - Final Complete 11/11/19 15:00 Urine,Clean Catch Urine Culture - Preliminary NO GROWTH AFTER 24 HOURS Resulted 11/11/19 02:30 Urine,Clean Catch Urine Culture - Final Enterococcus Faecalis Complete 11/11/19 02:30 Rectum VRE Culture - Final Enterococcus Faecium - Vre Complete Laboratory Tests Test 11/13/19 06:25 White Blood Count 23.5 K/UL (4.8-10.8) *H Red Blood Count 3.39 M/UL (4.70-6.10) L Hemoglobin 9.7 G/DL (14.2-18.0) L Hematocrit 28.2 % (42.0-52.0) L Mean Corpuscular Volume 83 FL (80-99) Mean Corpuscular Hemoglobin 28.4 PG (27.0-31.0) Mean Corpuscular Hemoglobin Concent 34.3 G/DL (32.0-36.0) Red Cell Distribution Width 12.8 % (11.6-14.8) Platelet Count 522 K/UL (150-450) H Mean Platelet Volume 6.0 FL (6.5-10.1) L Neutrophils (%) (Auto) % (45.0-75.0) Lymphocytes (%) (Auto) % (20.0-45.0) Monocytes (%) (Auto) % (1.0-10.0) Eosinophils (%) (Auto) % (0.0-3.0) Basophils (%) (Auto) % (0.0-2.0) Differential Total Cells Counted 100 Neutrophils % (Manual) 84 % (45-75) H Lymphocytes % (Manual) 10 % (20-45) L Monocytes % (Manual) 5 % (1-10) Eosinophils % (Manual) 1 % (0-3) Basophils % (Manual) 0 % (0-2) Band Neutrophils 0 % (0-8) Platelet Estimate Increased H Platelet Morphology Normal Polychromasia Hypochromasia 1+ Sodium Level 151 MMOL/L (136-145) H Potassium Level 4.6 MMOL/L (3.5-5.1) Chloride Level 116 MMOL/L (98-107) H Carbon Dioxide Level 25 MMOL/L (21-32) Anion Gap 10 mmol/L (5-15) Blood Urea Nitrogen 67 mg/dL (7-18) H Creatinine 1.4 MG/DL (0.55-1.30) H Estimat Glomerular Filtration Rate 49.8 mL/min (>60) Glucose Level 164 MG/DL (74-106) H Uric Acid 8.3 MG/DL (2.6-7.2) H Calcium Level 7.6 MG/DL (8.5-10.1) L Phosphorus Level 3.9 MG/DL (2.5-4.9) Magnesium Level 2.9 MG/DL (1.8-2.4) H Total Bilirubin 0.3 MG/DL (0.2-1.0) Aspartate Amino Transf (AST/SGOT) 18 U/L (15-37) Alanine Aminotransferase (ALT/SGPT) 23 U/L (12-78) Alkaline Phosphatase 72 U/L (46-116) Total Protein 6.1 G/DL (6.4-8.2) L Albumin 1.4 G/DL (3.4-5.0) L Globulin 4.7 g/dL Albumin/Globulin Ratio 0.3 (1.0-2.7) L Current Medications Medications (Trade) Dose Ordered Sig/Leonor Route PRN Reason Start Time Stop Time Status Last Admin Dose Admin Acetaminophen (Tylenol) 650 mg Q4H PRN ORAL fever 11/11/19 09:00 12/11/19 08:59 Albuterol/ Ipratropium (Albuterol/ Ipratropium) 3 ml Q4H PRN HHN Shortness of Breath 11/11/19 09:00 11/16/19 08:59 Amlodipine Besylate (Norvasc) 5 mg DAILY NG 11/12/19 09:00 12/11/19 08:59 11/13/19 08:17 Cefepime HCl 1 gm/ Dextrose 55 ml @ 110 mls/hr Q24H IV 11/12/19 03:00 11/19/19 02:59 11/13/19 02:47 Dextrose 1,000 ml @ 75 mls/hr [id number] IV 11/12/19 13:15 12/12/19 13:14 11/13/19 02:47 Heparin Sodium (Porcine) (Heparin 5000 units/ml) 5,000 units EVERY 12 HOURS SUBQ 11/11/19 09:00 12/26/19 08:59 11/13/19 08:18 Mirtazapine (Remeron) 7.5 mg BEDTIME GT 11/11/19 21:00 02/09/20 20:59 11/12/19 21:00 Nitroglycerin (Ntg) 0.4 mg Q5M PRN SL Prn Chest Pain 11/11/19 09:00 12/11/19 08:59 Ondansetron HCl (Zofran) 4 mg Q6H PRN IVP Nausea & Vomiting 11/11/19 09:00 12/11/19 08:59 Polyethylene Glycol (Miralax) 17 gm DAILYPRN PRN ORAL Constipation 11/11/19 09:00 12/11/19 08:59 Promethazine HCl/ Codeine (Phenergan with Codeine) 5 ml Q4H PRN ORAL For Cough 11/11/19 09:00 12/11/19 08:59 Tamsulosin HCl (Flomax) 0.4 mg DAILY ORAL 11/11/19 09:00 12/11/19 08:59 11/13/19 08:17 Temazepam (Restoril) 15 mg HSPRN PRN ORAL Insomnia 11/11/19 09:00 11/18/19 08:59 Vancomycin HCl (Vanco pharmacy to dose) 1 ea DAILY PRN MISC Per rx protocol 11/11/19 09:00 12/11/19 08:59 Vancomycin/Sodium Chloride 275 ml @ 183.333 mls/hr Q24H IVPB 11/12/19 13:00 11/17/19 12:59 11/13/19 12:16 Shannon Mark M.D. November 13, 2019 13:56
--- NOTE | 2019-11-13 13:57 | Cardiology Progress Note ---
Assessment/Plan Assessment/Plan 1. Respiratory insufficiency. 2. History of cerebrovascular accident. 3. History of carotid occlusion. 4. Bilateral infiltrates and pneumonia. 5. Aphasia. 6. Diabetes mellitus. 7. Hyponatremia. 8. Renal insufficiency 9. C diff+ 10. GPC bacteremia wbc sig elevated fever curve decreased bp seems fine cr improved more free water as na is worse abx per ID remain in PUI until covid result known tele personally reviewed sinsu / sinsu tachy / pvc k and mg are ok Subjective ROS Limited/Unobtainable: Yes Subjective not communicative Objective Last 24 Hour Vital Signs Date Time Temp Pulse Resp B/P (MAP) Pulse Ox O2 Delivery O2 Flow Rate FiO2 11/13/19 12:00 102 11/13/19 12:00 97.0 102 22 138/68 (91) 97 11/13/19 09:00 Non-Rebreather 15.0 11/13/19 08:17 106 130/65 11/13/19 08:09 98 Non-Rebreather 15.0 100 11/13/19 08:00 104 11/13/19 08:00 96.9 106 22 130/65 (86) 98 11/13/19 04:00 96.6 104 20 145/60 (88) 100 11/13/19 04:00 104 11/13/19 00:00 93 11/13/19 00:00 97.0 99 20 145/60 (88) 100 11/12/19 21:00 Non-Rebreather 15.0 11/12/19 20:00 87 11/12/19 20:00 96.8 91 20 140/64 (89) 100 11/12/19 16:00 88 11/12/19 16:00 96.8 93 20 119/69 (86) 100 Intake and Output 11/12/19 11/13/19 18:59 06:59 Intake Total 240 ml Output Total 800 ml 500 ml Balance -560 ml -500 ml Intake Oral 240 ml Output Urine Total 800 ml 500 ml # Voids 2 # Bowel Movements 4 5 Laboratory Tests Test 11/13/19 06:25 White Blood Count 23.5 K/UL (4.8-10.8) *H Red Blood Count 3.39 M/UL (4.70-6.10) L Hemoglobin 9.7 G/DL (14.2-18.0) L Hematocrit 28.2 % (42.0-52.0) L Mean Corpuscular Volume 83 FL (80-99) Mean Corpuscular Hemoglobin 28.4 PG (27.0-31.0) Mean Corpuscular Hemoglobin Concent 34.3 G/DL (32.0-36.0) Red Cell Distribution Width 12.8 % (11.6-14.8) Platelet Count 522 K/UL (150-450) H Mean Platelet Volume 6.0 FL (6.5-10.1) L Neutrophils (%) (Auto) % (45.0-75.0) Lymphocytes (%) (Auto) % (20.0-45.0) Monocytes (%) (Auto) % (1.0-10.0) Eosinophils (%) (Auto) % (0.0-3.0) Basophils (%) (Auto) % (0.0-2.0) Differential Total Cells Counted 100 Neutrophils % (Manual) 84 % (45-75) H Lymphocytes % (Manual) 10 % (20-45) L Monocytes % (Manual) 5 % (1-10) Eosinophils % (Manual) 1 % (0-3) Basophils % (Manual) 0 % (0-2) Band Neutrophils 0 % (0-8) Platelet Estimate Increased H Platelet Morphology Normal Polychromasia Hypochromasia 1+ Sodium Level 151 MMOL/L (136-145) H Potassium Level 4.6 MMOL/L (3.5-5.1) Chloride Level 116 MMOL/L (98-107) H Carbon Dioxide Level 25 MMOL/L (21-32) Anion Gap 10 mmol/L (5-15) Blood Urea Nitrogen 67 mg/dL (7-18) H Creatinine 1.4 MG/DL (0.55-1.30) H Estimat Glomerular Filtration Rate 49.8 mL/min (>60) Glucose Level 164 MG/DL (74-106) H Uric Acid 8.3 MG/DL (2.6-7.2) H Calcium Level 7.6 MG/DL (8.5-10.1) L Phosphorus Level 3.9 MG/DL (2.5-4.9) Magnesium Level 2.9 MG/DL (1.8-2.4) H Total Bilirubin 0.3 MG/DL (0.2-1.0) Aspartate Amino Transf (AST/SGOT) 18 U/L (15-37) Alanine Aminotransferase (ALT/SGPT) 23 U/L (12-78) Alkaline Phosphatase 72 U/L (46-116) Total Protein 6.1 G/DL (6.4-8.2) L Albumin 1.4 G/DL (3.4-5.0) L Globulin 4.7 g/dL Albumin/Globulin Ratio 0.3 (1.0-2.7) L Microbiology Date/Time Source Procedure Growth Status 11/11/19 02:30 Blood Blood Culture - Preliminary Staphylococcus Sp Coag Neg Resulted 11/11/19 02:15 Blood Blood Culture - Preliminary Staphylococcus Sp Coag Neg Resulted 11/11/19 11:30 Sputum Gram Stain - Final Resulted 11/11/19 11:30 Sputum Culture - Preliminary Gram Negative Jarocho Resulted 11/11/19 02:30 Nasal Nares MRSA Culture - Final Staphylococcus Aureus - Mrsa Complete 11/11/19 09:00 Stool Clostridium difficile Toxin Assay - Final Complete 11/11/19 15:00 Urine,Clean Catch Urine Culture - Preliminary NO GROWTH AFTER 24 HOURS Resulted 11/11/19 02:30 Urine,Clean Catch Urine Culture - Final Enterococcus Faecalis Complete 11/11/19 02:30 Rectum VRE Culture - Final Enterococcus Faecium - Vre Complete Objective exam not performed as pt with covid PUI in isolation per rn Patient in bed resting, no active s/s cardiac, respiratory distress noticed at this time. Patient on non-rebreather 15L, IV on right wrist 22G , Left wrist 20G , asymptomatic, patent, intact, IVF running as prescribed rate. G-tube feeding running as prescribed rate. Patient on bilateral wrist restraints, cap refill < 3 sec, able to move. Chris Melgar MD November 13, 2019 13:57
[2019-11-13] MEDS: Vancomycin oral 125mg/2.5ml ORAL SCH ×3 (14:22→21:00)
[2019-11-13 16:00] VITALS: BP 140/60
[2019-11-13 20:00] VITALS: BP 121/62
[2019-11-14] VITALS: BP 132/69
[2019-11-14] MEDS: Cefepime HCl 1 GM in D5W 55 ML IV SCH (03:17)
[2019-11-14 04:00] VITALS: BP 140/68
--- NOTE | 2019-11-14 05:30 | Progress Note ---
DATE: 11/13/2019 SUBJECTIVE: The patient is in bed, G-tube feeding, on bilateral soft restraints. Continues to have episodes of agitation, more manageable. MENTAL STATUS EXAMINATION: The patient is alert, disoriented. Mood is anxious. Affect is flat. Thought process, there is a paucity of thought content. Thought content, no suicidal or homicidal ideation. Cognition is impaired. Insight and judgment are impaired. ASSESSMENT: 1. Acute encephalopathy. 2. Major depressive disorder. PLAN: 1. Continue soft restraints. 2. Remeron 7.5 mg at bedtime. 3. Discussed with the nurse. Jessica Quinonez M.D. DR: CESIA JOB#: [id number] CC:
[2019-11-14 07:23] LABS: HEMATOCRIT 28.4 % (42.0-52.0); HEMOGLOBIN 9.6 G/DL (14.2-18.0); MEAN CORPUSCULAR VOLUME 84 FL (80-99); PLATELET COUNT 570 K/UL (150-450); RED BLOOD COUNT 3.36 M/UL (4.70-6.10)
[2019-11-14 07:35] LABS: WHITE BLOOD COUNT 29.8 K/UL (4.8-10.8)
[2019-11-14 07:41] LABS: ANION GAP 9 mmol/L (5-15); BLOOD UREA NITROGEN 58 mg/dL (7-18); CALCIUM 7.8 MG/DL (8.5-10.1); CARBON DIOXIDE 25 MMOL/L (21-32); CHLORIDE 112 MMOL/L (98-107); CREATININE 1.5 MG/DL (0.55-1.30); POTASSIUM 4.9 MMOL/L (3.5-5.1); SODIUM 146 MMOL/L (136-145)
[2019-11-14 08:00] VITALS: BP 109/67
[2019-11-14] MEDS: Vancomycin oral 125mg/2.5ml ORAL SCH ×4 (09:12→21:47)
[2019-11-14] MEDS: Tamsulosin 0.4mg cap ORAL SCH (09:12)
[2019-11-14] MEDS: Heparin 5000 units/ml inj SUBQ SCH ×2 (09:14→21:48)
--- NOTE | 2019-11-14 09:18 | General Progress Note ---
Assessment/Plan Problem List: (1) DM (diabetes mellitus) ICD Codes: E11.9 - Type 2 diabetes mellitus without complications SNOMED: 30310741 (2) ARF (acute renal failure) ICD Codes: N17.9 - Acute kidney failure, unspecified SNOMED: 31607758 Qualifiers: Qualified Codes: N17.9 - Acute kidney failure, unspecified (3) Aspiration pneumonia ICD Codes: J69.0 - Pneumonitis due to inhalation of food and vomit SNOMED: 151465868 (4) UTI (urinary tract infection) ICD Codes: N39.0 - Urinary tract infection, site not specified SNOMED: 97401722 Qualifiers: Qualified Codes: N30.00 - Acute cystitis without hematuria (5) Hypertension ICD Codes: I10 - Essential (primary) hypertension SNOMED: 48420554 (6) Anemia ICD Codes: D64.9 - Anemia, unspecified SNOMED: 708000802 Qualifiers: Qualified Codes: D64.9 - Anemia, unspecified (7) Respiratory failure with hypoxia ICD Codes: J96.91 - Respiratory failure, unspecified with hypoxia SNOMED: 64547584923341843 Qualifiers: Qualified Codes: J96.01 - Acute respiratory failure with hypoxia (8) Suspected COVID-19 virus infection ICD Codes: Z20.828 - Contact with and (suspected) exposure to other viral communicable diseases SNOMED: 070246549 Status: unchanged Assessment/Plan: o2 pulm tx abx pt diet cbc bmp am Subjective Constitutional: Reports: weakness Allergies: Coded Allergies: No Known Allergies (Unverified , 09/16/19) All Systems: reviewed and negative except above Subjective o2mask sleepy calm Objective Last 24 Hour Vital Signs Date Time Temp Pulse Resp B/P (MAP) Pulse Ox O2 Delivery O2 Flow Rate FiO2 11/14/19 09:00 81 109/67 11/14/19 04:00 98.8 103 20 140/68 (92) 99 11/14/19 04:00 105 11/14/19 00:00 107 11/14/19 00:00 98.3 105 20 132/69 (90) 99 11/13/19 22:00 98 Non-Rebreather 15.0 100 11/13/19 21:00 Non-Rebreather 15.0 11/13/19 20:00 98.7 114 24 121/62 (81) 99 11/13/19 20:00 118 11/13/19 16:00 104 11/13/19 16:00 96.9 105 22 140/60 (86) 96 11/13/19 12:00 102 11/13/19 12:00 97.0 102 22 138/68 (91) 97 Intake and Output 11/13/19 11/14/19 19:00 07:00 Intake Total 800 ml 780 ml Output Total 450 ml 500 ml Balance 350 ml 280 ml IV Total 800 ml Tube Feeding 780 ml Output Urine Total 450 ml 500 ml # Voids 1 # Bowel Movements 3 2 Laboratory Tests 11/14/19 05:58: White Blood Count 29.8*H, Red Blood Count 3.36L, Hemoglobin 9.6L, Hematocrit 28.4L, Mean Corpuscular Volume 84, Mean Corpuscular Hemoglobin 28.7, Mean Corpuscular Hemoglobin Concent 34.0, Red Cell Distribution Width 13.0, Platelet Count 570H, Mean Platelet Volume 5.7L, Neutrophils (%) (Auto) , Lymphocytes (%) (Auto) , Monocytes (%) (Auto) , Eosinophils (%) (Auto) , Basophils (%) (Auto) , Neutrophils % (Manual) [Pending], Lymphocytes % (Manual) [Pending], Platelet Estimate [Pending], Platelet Morphology [Pending], Sodium Level 146H, Potassium Level 4.9, Chloride Level 112H, Carbon Dioxide Level 25, Anion Gap 9, Blood Urea Nitrogen 58H, Creatinine 1.5H, Estimat Glomerular Filtration Rate 46.0, Glucose Level 182H, Calcium Level 7.8L Height (Feet): 6 Height (Inches): 0.00 Weight (Pounds): 130 General Appearance: lethargic EENT: normal ENT inspection Neck: normal alignment Cardiovascular: normal peripheral pulses, normal rate, regular rhythm Respiratory/Chest: decreased breath sounds Abdomen: normal bowel sounds, non tender, soft Extremities: normal inspection Edema: no edema noted Arm (L), no edema noted Arm (R), no edema noted Leg (L), no edema noted Leg (R), no edema noted Pedal (L), no edema noted Pedal (R), no edema noted Generalized Neurologic: motor weakness Skin: normal pigmentation Juan Singh DO Nov 14, 2019 09:18
--- NOTE | 2019-11-14 09:59 | Nephrology Progress Note ---
Assessment/Plan Problem List: (1) ARF (acute renal failure) (2) Hyperkalemia (3) DM (diabetes mellitus) (4) Suspected COVID-19 virus infection Assessment his 74-year-old male with multiple Multiple medical problem presents with respiratory symptoms and diarrhea Renal failure most likely prerenal azotemia secondary to dehydration Hyperkalemia on presentation also secondary to dehydration Sepsis pneumonia hypoxia UTI Anemia History of hypertension History of diabetes mellitus Suspected COVID-19 virus infection Hypoalbuminemia Plan C. difficile positive COVID-19 detected Hydrate Continue per ID Keep the blood pressure and blood sugar in check Monitor renal parameters Previously: Urine studies Monitor intake and output Cultures including stool for C. difficile Per orders Patient's CODE STATUS is full Subjective ROS Limited/Unobtainable: No Constitutional: Reports: malaise, weakness Objective Objective Last 24 Hour Vital Signs Date Time Temp Pulse Resp B/P (MAP) Pulse Ox O2 Delivery O2 Flow Rate FiO2 11/14/19 09:00 81 109/67 11/14/19 09:00 Non-Rebreather 15.0 11/14/19 08:00 98 11/14/19 08:00 97.5 81 40 109/67 (81) 100 11/14/19 04:00 98.8 103 20 140/68 (92) 99 11/14/19 04:00 105 11/14/19 00:00 107 11/14/19 00:00 98.3 105 20 132/69 (90) 99 11/13/19 22:00 98 Non-Rebreather 15.0 100 11/13/19 21:00 Non-Rebreather 15.0 11/13/19 20:00 98.7 114 24 121/62 (81) 99 11/13/19 20:00 118 11/13/19 16:00 104 11/13/19 16:00 96.9 105 22 140/60 (86) 96 11/13/19 12:00 102 11/13/19 12:00 97.0 102 22 138/68 (91) 97 Intake and Output 11/13/19 11/14/19 19:00 07:00 Intake Total 800 ml 780 ml Output Total 450 ml 500 ml Balance 350 ml 280 ml IV Total 800 ml Tube Feeding 780 ml Output Urine Total 450 ml 500 ml # Voids 1 # Bowel Movements 3 2 Laboratory Tests 11/14/19 05:58: White Blood Count 29.8*H, Red Blood Count 3.36L, Hemoglobin 9.6L, Hematocrit 28.4L, Mean Corpuscular Volume 84, Mean Corpuscular Hemoglobin 28.7, Mean Corpuscular Hemoglobin Concent 34.0, Red Cell Distribution Width 13.0, Platelet Count 570H, Mean Platelet Volume 5.7L, Neutrophils (%) (Auto) , Lymphocytes (%) (Auto) , Monocytes (%) (Auto) , Eosinophils (%) (Auto) , Basophils (%) (Auto) , Differential Total Cells Counted 100, Neutrophils % (Manual) 89H, Lymphocytes % (Manual) 7L, Monocytes % (Manual) 4, Eosinophils % (Manual) 0, Basophils % ( Manual) 0, Band Neutrophils 0, Platelet Estimate IncreasedH, Platelet Morphology Normal, Hypochromasia 1+, Sodium Level 146H, Potassium Level 4.9, Chloride Level 112H, Carbon Dioxide Level 25, Anion Gap 9, Blood Urea Nitrogen 58H, Creatinine 1.5H, Estimat Glomerular Filtration Rate 46.0, Glucose Level 182H, Calcium Level 7.8L Height (Feet): 6 Height (Inches): 0.00 Weight (Pounds): 130 General Appearance: mild distress Cardiovascular: tachycardia Respiratory/Chest: decreased breath sounds Abdomen: distended Ricardo Choudhary MD Nov 14, 2019 09:59
--- NOTE | 2019-11-14 11:33 | Pulmonology Progress Note ---
Subjective ROS Limited/Unobtainable: Yes Constitutional: Reports: no symptoms Allergies: Coded Allergies: No Known Allergies (Unverified , 09/16/19) All Systems: reviewed and negative except above Objective Last 24 Hour Vital Signs Date Time Temp Pulse Resp B/P (MAP) Pulse Ox O2 Delivery O2 Flow Rate FiO2 11/14/19 09:00 81 109/67 11/14/19 09:00 Non-Rebreather 15.0 11/14/19 08:00 98 11/14/19 08:00 97.5 81 40 109/67 (81) 100 11/14/19 04:00 98.8 103 20 140/68 (92) 99 11/14/19 04:00 105 11/14/19 00:00 107 11/14/19 00:00 98.3 105 20 132/69 (90) 99 11/13/19 22:00 98 Non-Rebreather 15.0 100 11/13/19 21:00 Non-Rebreather 15.0 11/13/19 20:00 98.7 114 24 121/62 (81) 99 11/13/19 20:00 118 11/13/19 16:00 104 11/13/19 16:00 96.9 105 22 140/60 (86) 96 11/13/19 12:00 102 11/13/19 12:00 97.0 102 22 138/68 (91) 97 Intake and Output 11/13/19 11/14/19 19:00 07:00 Intake Total 800 ml 780 ml Output Total 450 ml 500 ml Balance 350 ml 280 ml IV Total 800 ml Tube Feeding 780 ml Output Urine Total 450 ml 500 ml # Voids 1 # Bowel Movements 3 2 General Appearance: cachetic HEENT: normocephalic, atraumatic Respiratory: chest wall non-tender, rhonchi - left, rhonchi - right Cardiovascular: normal peripheral pulses, normal rate Genitourinary: normal external genitalia Skin: no rash Neurologic: case fitter II-XII grossly normal Microbiology Date/Time Source Procedure Growth Status 11/12/19 10:35 Blood Blood Culture - Preliminary NO GROWTH AFTER 24 HOURS Resulted 11/12/19 10:25 Blood Blood Culture - Preliminary NO GROWTH AFTER 24 HOURS Resulted 11/11/19 15:00 Urine,Clean Catch Urine Culture - Final NO GROWTH AFTER 48 HOURS Complete Laboratory Tests 11/14/19 05:58: White Blood Count 29.8*H, Red Blood Count 3.36L, Hemoglobin 9.6L, Hematocrit 28.4L, Mean Corpuscular Volume 84, Mean Corpuscular Hemoglobin 28.7, Mean Corpuscular Hemoglobin Concent 34.0, Red Cell Distribution Width 13.0, Platelet Count 570H, Mean Platelet Volume 5.7L, Neutrophils (%) (Auto) , Lymphocytes (%) (Auto) , Monocytes (%) (Auto) , Eosinophils (%) (Auto) , Basophils (%) (Auto) , Differential Total Cells Counted 100, Neutrophils % (Manual) 89H, Lymphocytes % (Manual) 7L, Monocytes % (Manual) 4, Eosinophils % (Manual) 0, Basophils % ( Manual) 0, Band Neutrophils 0, Platelet Estimate IncreasedH, Platelet Morphology Normal, Hypochromasia 1+, Sodium Level 146H, Potassium Level 4.9, Chloride Level 112H, Carbon Dioxide Level 25, Anion Gap 9, Blood Urea Nitrogen 58H, Creatinine 1.5H, Estimat Glomerular Filtration Rate 46.0, Glucose Level 182H, Calcium Level 7.8L Current Medications Medications (Trade) Dose Ordered Sig/Leonor Route PRN Reason Start Time Stop Time Status Last Admin Dose Admin Acetaminophen (Tylenol) 650 mg Q4H PRN ORAL fever 11/11/19 09:00 12/11/19 08:59 Albuterol/ Ipratropium (Albuterol/ Ipratropium) 3 ml Q4H PRN HHN Shortness of Breath 11/11/19 09:00 11/16/19 08:59 Amlodipine Besylate (Norvasc) 5 mg DAILY NG 11/12/19 09:00 12/11/19 08:59 11/13/19 08:17 Cefepime HCl 1 gm/ Dextrose 55 ml @ 110 mls/hr Q24H IV 11/12/19 03:00 11/19/19 02:59 11/14/19 03:17 Dextrose 1,000 ml @ 75 mls/hr [id number] IV 11/12/19 13:15 12/12/19 13:14 11/14/19 05:15 Heparin Sodium (Porcine) (Heparin 5000 units/ml) 5,000 units EVERY 12 HOURS SUBQ 11/11/19 09:00 12/26/19 08:59 11/14/19 09:14 Mirtazapine (Remeron) 7.5 mg BEDTIME GT 11/11/19 21:00 02/09/20 20:59 11/13/19 21:00 Nitroglycerin (Ntg) 0.4 mg Q5M PRN SL Prn Chest Pain 11/11/19 09:00 12/11/19 08:59 Ondansetron HCl (Zofran) 4 mg Q6H PRN IVP Nausea & Vomiting 11/11/19 09:00 12/11/19 08:59 Polyethylene Glycol (Miralax) 17 gm DAILYPRN PRN ORAL Constipation 11/11/19 09:00 12/11/19 08:59 Promethazine HCl/ Codeine (Phenergan with Codeine) 5 ml Q4H PRN ORAL For Cough 11/11/19 09:00 12/11/19 08:59 Tamsulosin HCl (Flomax) 0.4 mg DAILY ORAL 11/11/19 09:00 12/11/19 08:59 11/14/19 09:12 Temazepam (Restoril) 15 mg HSPRN PRN ORAL Insomnia 11/11/19 09:00 11/18/19 08:59 Vancomycin HCl (Firvanq) 125 mg FOUR TIMES A DAY ORAL 11/13/19 15:00 11/20/19 14:59 11/14/19 09:12 Vancomycin HCl (Vanco pharmacy to dose) 1 ea DAILY PRN MISC Per rx protocol 11/11/19 09:00 12/11/19 08:59 Vancomycin/Sodium Chloride 275 ml @ 183.333 mls/hr Q24H IVPB 11/12/19 13:00 11/17/19 12:59 11/13/19 12:16 Assessment/Plan Problems: (1) 2019 novel coronavirus disease (COVID-19) (2) Respiratory failure with hypoxia (3) Sepsis (4) Left carotid artery occlusion (5) Hypertension (6) DM (diabetes mellitus) (7) Left middle cerebral artery stroke Assessment/Plan wbc increasing respiratory rate is high, repeat ABG continue abx sliding scale check electrolytes repeat cultures dvt prophylaxis. Ayana Ndiaye MD Nov 14, 2019 11:33
[2019-11-14 12:00] VITALS: BP 130/67
--- NOTE | 2019-11-14 12:26 | Surgery Progress Note ---
Surgery Progress Note Subjective Additional Comments worsening leukocytosis exam unchanged Objective Last 24 Hour Vital Signs Date Time Temp Pulse Resp B/P (MAP) Pulse Ox O2 Delivery O2 Flow Rate FiO2 11/14/19 09:00 81 109/67 11/14/19 09:00 Non-Rebreather 15.0 11/14/19 08:00 98 11/14/19 08:00 97.5 81 40 109/67 (81) 100 11/14/19 04:00 98.8 103 20 140/68 (92) 99 11/14/19 04:00 105 11/14/19 00:00 107 11/14/19 00:00 98.3 105 20 132/69 (90) 99 11/13/19 22:00 98 Non-Rebreather 15.0 100 11/13/19 21:00 Non-Rebreather 15.0 11/13/19 20:00 98.7 114 24 121/62 (81) 99 11/13/19 20:00 118 11/13/19 16:00 104 11/13/19 16:00 96.9 105 22 140/60 (86) 96 I&O Intake and Output 11/13/19 11/14/19 19:00 07:00 Intake Total 800 ml 780 ml Output Total 450 ml 500 ml Balance 350 ml 280 ml IV Total 800 ml Tube Feeding 780 ml Output Urine Total 450 ml 500 ml # Voids 1 # Bowel Movements 3 2 Dressing: other Wound: other Drains: other Cardiovascular: RSR Respiratory: decreased breath sounds Abdomen: soft, non-tender, present bowel sounds Extremities: no cyanosis Laboratory Tests Test 11/14/19 05:58 11/14/19 11:39 White Blood Count 29.8 K/UL (4.8-10.8) *H Red Blood Count 3.36 M/UL (4.70-6.10) L Hemoglobin 9.6 G/DL (14.2-18.0) L Hematocrit 28.4 % (42.0-52.0) L Mean Corpuscular Volume 84 FL (80-99) Mean Corpuscular Hemoglobin 28.7 PG (27.0-31.0) Mean Corpuscular Hemoglobin Concent 34.0 G/DL (32.0-36.0) Red Cell Distribution Width 13.0 % (11.6-14.8) Platelet Count 570 K/UL (150-450) H Mean Platelet Volume 5.7 FL (6.5-10.1) L Neutrophils (%) (Auto) % (45.0-75.0) Lymphocytes (%) (Auto) % (20.0-45.0) Monocytes (%) (Auto) % (1.0-10.0) Eosinophils (%) (Auto) % (0.0-3.0) Basophils (%) (Auto) % (0.0-2.0) Differential Total Cells Counted 100 Neutrophils % (Manual) 89 % (45-75) H Lymphocytes % (Manual) 7 % (20-45) L Monocytes % (Manual) 4 % (1-10) Eosinophils % (Manual) 0 % (0-3) Basophils % (Manual) 0 % (0-2) Band Neutrophils 0 % (0-8) Platelet Estimate Increased H Platelet Morphology Normal Hypochromasia 1+ Sodium Level 146 MMOL/L (136-145) H Potassium Level 4.9 MMOL/L (3.5-5.1) Chloride Level 112 MMOL/L (98-107) H Carbon Dioxide Level 25 MMOL/L (21-32) Anion Gap 9 mmol/L (5-15) Blood Urea Nitrogen 58 mg/dL (7-18) H Creatinine 1.5 MG/DL (0.55-1.30) H Estimat Glomerular Filtration Rate 46.0 mL/min (>60) Glucose Level 182 MG/DL (74-106) H Calcium Level 7.8 MG/DL (8.5-10.1) L Arterial Blood pH 7.448 (7.350-7.450) Arterial Blood Partial Pressure CO2 35.6 mmHg (35.0-45.0) Arterial Blood Partial Pressure O2 270.5 mmHg (75.0-100.0) H Arterial Blood HCO3 24.1 mmol/L (22.0-26.0) Arterial Blood Oxygen Saturation 99.0 % (95-100) Arterial Blood Base Excess 0.3 (-2-2) Michael Test Positive Plan Problems: (1) Decubitus skin ulcer Assessment & Plan: Pt presented on admission with large sacral wound. Base of wound with areas that area purple and indurated sacrococcygeal,L sacrum/L gluteus,Scattered wounds with maceration L gluteus, one wound R sacrum with Biofilm, Surrounding non-blanching erythema entire buttocks. Small dry scabbed area noted to lumbar area. Unstageable Pressure Injury L heel. Base of wound is necrotic with surrounding non-blanching erythema. Tx.plan: Apply Moisture Barrier Paste to Buttocks. Cover Sacrum, R and L gluteal cheeks with Optifoam drsgs. Change every 3 days and prn. Apply Betadine to L heel. Cover with Optifoam drsg. Change every 3 days and prn. Reposition at least every 2hours or as tolerated. Place Pillow between knees. Off-load heels with Pillow. APM/BRUNILDA Mattress overlay. (2) Sepsis Assessment & Plan: 74-year-old male multi-medical comorbidities admitted for respiratory deficiency currently tachypneic, leukocytosis, malnutrition, hypoalbuminemia. Complete physical exam performed identified areas of concerned given patient's comorbidities current condition high risk for deteriorationNo active infection identified from patient's wounds and likely respiratory nature. Chest x-ray reviewed. No acute surgical intervention planned at this time Preventive measures IV antibiotics per infectious disease Okay for feeding once stable respiratory Appreciate Pulm input c diff positive on vanco blood cx noted worsening leukocytosis ID abx noted We will follow with recommendations thank you for let me participate patient's care (3) Left carotid artery occlusion (4) Left middle cerebral artery stroke (5) DM (diabetes mellitus) (6) ARF (acute renal failure) (7) Ventricular tachyarrhythmia (8) Aspiration pneumonia (9) Hypertension (10) UTI (urinary tract infection) (11) Anemia (12) Respiratory failure with hypoxia (13) Suspected COVID-19 virus infection Elfego Payne Nov 14, 2019 12:26
--- NOTE | 2019-11-14 15:02 | Infectious Diseases Prog Note ---
Assessment/Plan Assessment/Plan Assessment: Severe Sepsis Fever, SP Leukocytosis; worsening Pneumonia Acute hypoxic resp failure- on NRB 15L- 2ry to COVID19 -11/11 CXR: Mild interstitial thickening is slightly improved. -11/10 CXR: Hazy basilar infiltrates left greater than right. sp cx PsA (blackwood S), P.mirabilis (blackwood S), S. aureus (sensi p) -11/10 SARS-COV2 positive UTI c/w bacteremia -u/a wbc 5-10, nit neg, leuk +1, RBC TNCT; ucx 10-20k E. faecalis (S amp, vanco) -11/10 Bcx 2/4 E. faecalis (S Vancomycin, AMP) CONS bacteremia- likely contaminant -11/10 Bcx 2/ S. 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 Will continue to follow along with you. Discussed with RN and Lee Ann from Pharmacy Subjective Allergies: Coded Allergies: No Known Allergies (Unverified , 09/16/19) Subjective afebrile >72hrs On NRB 15L, FIo2 100% wbc increased to 29 Objective Vital Signs Last 24 Hour Vital Signs Date Time Temp Pulse Resp B/P (MAP) Pulse Ox O2 Delivery O2 Flow Rate FiO2 11/14/19 12:00 88 11/14/19 12:00 97.9 88 40 130/67 (88) 100 11/14/19 09:00 81 109/67 11/14/19 09:00 Non-Rebreather 15.0 11/14/19 08:00 98 11/14/19 08:00 97.5 81 40 109/67 (81) 100 11/14/19 04:00 98.8 103 20 140/68 (92) 99 11/14/19 04:00 105 11/14/19 00:00 107 11/14/19 00:00 98.3 105 20 132/69 (90) 99 11/13/19 22:00 98 Non-Rebreather 15.0 100 11/13/19 21:00 Non-Rebreather 15.0 11/13/19 20:00 98.7 114 24 121/62 (81) 99 11/13/19 20:00 118 11/13/19 16:00 104 11/13/19 16:00 96.9 105 22 140/60 (86) 96 Height (Feet): 6 Height (Inches): 0.00 Weight (Pounds): 130 Objective not examined to limit COVID19 exposure Microbiology Date/Time Source Procedure Growth Status 11/12/19 10:35 Blood Blood Culture - Preliminary NO GROWTH AFTER 24 HOURS Resulted 11/12/19 10:25 Blood Blood Culture - Preliminary NO GROWTH AFTER 24 HOURS Resulted 11/11/19 15:00 Urine,Clean Catch Urine Culture - Final NO GROWTH AFTER 48 HOURS Complete Laboratory Tests Test 11/14/19 05:58 11/14/19 11:39 11/14/19 12:16 White Blood Count 29.8 K/UL (4.8-10.8) *H Red Blood Count 3.36 M/UL (4.70-6.10) L Hemoglobin 9.6 G/DL (14.2-18.0) L Hematocrit 28.4 % (42.0-52.0) L Mean Corpuscular Volume 84 FL (80-99) Mean Corpuscular Hemoglobin 28.7 PG (27.0-31.0) Mean Corpuscular Hemoglobin Concent 34.0 G/DL (32.0-36.0) Red Cell Distribution Width 13.0 % (11.6-14.8) Platelet Count 570 K/UL (150-450) H Mean Platelet Volume 5.7 FL (6.5-10.1) L Neutrophils (%) (Auto) % (45.0-75.0) Lymphocytes (%) (Auto) % (20.0-45.0) Monocytes (%) (Auto) % (1.0-10.0) Eosinophils (%) (Auto) % (0.0-3.0) Basophils (%) (Auto) % (0.0-2.0) Differential Total Cells Counted 100 Neutrophils % (Manual) 89 % (45-75) H Lymphocytes % (Manual) 7 % (20-45) L Monocytes % (Manual) 4 % (1-10) Eosinophils % (Manual) 0 % (0-3) Basophils % (Manual) 0 % (0-2) Band Neutrophils 0 % (0-8) Platelet Estimate Increased H Platelet Morphology Normal Hypochromasia 1+ Sodium Level 146 MMOL/L (136-145) H Potassium Level 4.9 MMOL/L (3.5-5.1) Chloride Level 112 MMOL/L (98-107) H Carbon Dioxide Level 25 MMOL/L (21-32) Anion Gap 9 mmol/L (5-15) Blood Urea Nitrogen 58 mg/dL (7-18) H Creatinine 1.5 MG/DL (0.55-1.30) H Estimat Glomerular Filtration Rate 46.0 mL/min (>60) Glucose Level 182 MG/DL (74-106) H Calcium Level 7.8 MG/DL (8.5-10.1) L Arterial Blood pH 7.448 (7.350-7.450) Arterial Blood Partial Pressure CO2 35.6 mmHg (35.0-45.0) Arterial Blood Partial Pressure O2 270.5 mmHg (75.0-100.0) H Arterial Blood HCO3 24.1 mmol/L (22.0-26.0) Arterial Blood Oxygen Saturation 99.0 % (95-100) Arterial Blood Base Excess 0.3 (-2-2) Michael Test Positive Vancomycin Level Trough 23.4 ug/mL (5.0-12.0) H Current Medications Medications (Trade) Dose Ordered Sig/Leonor Route PRN Reason Start Time Stop Time Status Last Admin Dose Admin Acetaminophen (Tylenol) 650 mg Q4H PRN ORAL fever 11/11/19 09:00 12/11/19 08:59 Albuterol/ Ipratropium (Albuterol/ Ipratropium) 3 ml Q4H PRN HHN Shortness of Breath 11/11/19 09:00 11/16/19 08:59 Amlodipine Besylate (Norvasc) 5 mg DAILY NG 11/12/19 09:00 12/11/19 08:59 11/13/19 08:17 Cefepime HCl 1 gm/ Dextrose 55 ml @ 110 mls/hr Q24H IV 11/12/19 03:00 11/19/19 02:59 11/14/19 03:17 Heparin Sodium (Porcine) (Heparin 5000 units/ml) 5,000 units EVERY 12 HOURS SUBQ 11/11/19 09:00 12/26/19 08:59 11/14/19 09:14 Mirtazapine (Remeron) 7.5 mg BEDTIME GT 11/11/19 21:00 02/09/20 20:59 11/13/19 21:00 Nitroglycerin (Ntg) 0.4 mg Q5M PRN SL Prn Chest Pain 11/11/19 09:00 12/11/19 08:59 Ondansetron HCl (Zofran) 4 mg Q6H PRN IVP Nausea & Vomiting 11/11/19 09:00 12/11/19 08:59 Polyethylene Glycol (Miralax) 17 gm DAILYPRN PRN ORAL Constipation 11/11/19 09:00 12/11/19 08:59 Promethazine HCl/ Codeine (Phenergan with Codeine) 5 ml Q4H PRN ORAL For Cough 11/11/19 09:00 12/11/19 08:59 Tamsulosin HCl (Flomax) 0.4 mg DAILY ORAL 11/11/19 09:00 12/11/19 08:59 11/14/19 09:12 Temazepam (Restoril) 15 mg HSPRN PRN ORAL Insomnia 11/11/19 09:00 11/18/19 08:59 Vancomycin HCl (Firvanq) 125 mg FOUR TIMES A DAY ORAL 11/13/19 15:00 11/20/19 14:59 11/14/19 13:26 Vancomycin HCl (Vanco pharmacy to dose) 1 ea DAILY PRN MISC Per rx protocol 11/11/19 09:00 12/11/19 08:59 Shannon Mark M.D. Nov 14, 2019 15:02
[2019-11-14] MEDS ORDERED: Remdesivir Fact Sheet MISC SCH (15:30)
[2019-11-14 16:00] VITALS: BP 139/71
[2019-11-14] MEDS ORDERED: Loading Dose:Remdesivir 200mg/NS 210ml IV SCH (18:00)
--- NOTE | 2019-11-14 19:21 | Cardiology Progress Note ---
Assessment/Plan Assessment/Plan 1. covid 19 pneumonia 2. History of cerebrovascular accident. 3. History of carotid occlusion. 4. Bilateral infiltrates and pneumonia. 5. Aphasia. 6. Diabetes mellitus. 7. Hyponatremia. 8. Renal insufficiency 9. C diff+ 10. GPC bacteremia wbc elevated further no fever bp seems fine cr stable more free water as na is worse abx per ID now covd 19 detected from admission got resmeidivir d/s staff home therapy rn sinus tachy ordred a low dose of lasix to [facility] dry side sicn e need nrb mask but only once will check labs in am Subjective ROS Limited/Unobtainable: Yes Subjective not communicative Objective Last 24 Hour Vital Signs Date Time Temp Pulse Resp B/P (MAP) Pulse Ox O2 Delivery O2 Flow Rate FiO2 11/14/19 16:00 130 11/14/19 16:00 97.5 93 45 139/71 (93) 97 11/14/19 12:00 88 11/14/19 12:00 97.9 88 40 130/67 (88) 100 11/14/19 09:00 81 109/67 11/14/19 09:00 Non-Rebreather 15.0 11/14/19 08:00 98 11/14/19 08:00 97.5 81 40 109/67 (81) 100 11/14/19 04:00 98.8 103 20 140/68 (92) 99 11/14/19 04:00 105 11/14/19 00:00 107 11/14/19 00:00 98.3 105 20 132/69 (90) 99 11/13/19 22:00 98 Non-Rebreather 15.0 100 11/13/19 21:00 Non-Rebreather 15.0 11/13/19 20:00 98.7 114 24 121/62 (81) 99 11/13/19 20:00 118 Intake and Output 11/13/19 11/14/19 19:00 07:00 Intake Total 800 ml 780 ml Output Total 450 ml 500 ml Balance 350 ml 280 ml IV Total 800 ml Tube Feeding 780 ml Output Urine Total 450 ml 500 ml # Voids 1 # Bowel Movements 3 2 Laboratory Tests Test 11/14/19 05:58 11/14/19 11:39 11/14/19 12:16 White Blood Count 29.8 K/UL (4.8-10.8) *H Red Blood Count 3.36 M/UL (4.70-6.10) L Hemoglobin 9.6 G/DL (14.2-18.0) L Hematocrit 28.4 % (42.0-52.0) L Mean Corpuscular Volume 84 FL (80-99) Mean Corpuscular Hemoglobin 28.7 PG (27.0-31.0) Mean Corpuscular Hemoglobin Concent 34.0 G/DL (32.0-36.0) Red Cell Distribution Width 13.0 % (11.6-14.8) Platelet Count 570 K/UL (150-450) H Mean Platelet Volume 5.7 FL (6.5-10.1) L Neutrophils (%) (Auto) % (45.0-75.0) Lymphocytes (%) (Auto) % (20.0-45.0) Monocytes (%) (Auto) % (1.0-10.0) Eosinophils (%) (Auto) % (0.0-3.0) Basophils (%) (Auto) % (0.0-2.0) Differential Total Cells Counted 100 Neutrophils % (Manual) 89 % (45-75) H Lymphocytes % (Manual) 7 % (20-45) L Monocytes % (Manual) 4 % (1-10) Eosinophils % (Manual) 0 % (0-3) Basophils % (Manual) 0 % (0-2) Band Neutrophils 0 % (0-8) Platelet Estimate Increased H Platelet Morphology Normal Hypochromasia 1+ Sodium Level 146 MMOL/L (136-145) H Potassium Level 4.9 MMOL/L (3.5-5.1) Chloride Level 112 MMOL/L (98-107) H Carbon Dioxide Level 25 MMOL/L (21-32) Anion Gap 9 mmol/L (5-15) Blood Urea Nitrogen 58 mg/dL (7-18) H Creatinine 1.5 MG/DL (0.55-1.30) H Estimat Glomerular Filtration Rate 46.0 mL/min (>60) Glucose Level 182 MG/DL (74-106) H Calcium Level 7.8 MG/DL (8.5-10.1) L Arterial Blood pH 7.448 (7.350-7.450) Arterial Blood Partial Pressure CO2 35.6 mmHg (35.0-45.0) Arterial Blood Partial Pressure O2 270.5 mmHg (75.0-100.0) H Arterial Blood HCO3 24.1 mmol/L (22.0-26.0) Arterial Blood Oxygen Saturation 99.0 % (95-100) Arterial Blood Base Excess 0.3 (-2-2) Michael Test Positive Vancomycin Level Trough 23.4 ug/mL (5.0-12.0) H Microbiology Date/Time Source Procedure Growth Status 11/12/19 10:35 Blood Blood Culture - Preliminary NO GROWTH AFTER 24 HOURS Resulted 11/12/19 10:25 Blood Blood Culture - Preliminary NO GROWTH AFTER 24 HOURS Resulted Objective exam not performed as pt with covid now confirmed per rn: in bed resting, no active s/s cardiac distress noticed at this time, patient on non-rebreather 15L , G-tube feeding running as prescribed rate. IV on right wrist 22G, left wrist 20G, asymptomatic, patent, intact, IVF running as prescribed rate. Patient on bilateral soft wrist restraints, cap refill <3 sec, able to move. [place] Catheter draining well to gravity at this time. subsequently agitated with increased rr adn agitation and tachy Chris Melgar MD Nov 14, 2019 19:21
[2019-11-14 20:00] VITALS: BP 104/58
--- NOTE | 2019-11-14 22:41 | Psych Consult Progress Note ---
Psychiatry Progress Note Psychiatry Progress Note Subjective the pt is agitated and confused Medications Current Medications Medications (Trade) Dose Ordered Sig/Leonor Route PRN Reason Start Time Stop Time Status Last Admin Dose Admin Acetaminophen (Tylenol) 650 mg Q4H PRN ORAL fever 11/11/19 09:00 12/11/19 08:59 Albuterol/ Ipratropium (Albuterol/ Ipratropium) 3 ml Q4H PRN HHN Shortness of Breath 11/11/19 09:00 11/16/19 08:59 Cefepime HCl 1 gm/ Dextrose 55 ml @ 110 mls/hr Q24H IV 11/12/19 03:00 11/19/19 02:59 11/14/19 03:17 Heparin Sodium (Porcine) (Heparin 5000 units/ml) 5,000 units EVERY 12 HOURS SUBQ 11/11/19 09:00 12/26/19 08:59 11/14/19 21:48 Mirtazapine (Remeron) 7.5 mg BEDTIME GT 11/11/19 21:00 02/09/20 20:59 11/14/19 21:47 Nitroglycerin (Ntg) 0.4 mg Q5M PRN SL Prn Chest Pain 11/11/19 09:00 12/11/19 08:59 Ondansetron HCl (Zofran) 4 mg Q6H PRN IVP Nausea & Vomiting 11/11/19 09:00 12/11/19 08:59 Polyethylene Glycol (Miralax) 17 gm DAILYPRN PRN ORAL Constipation 11/11/19 09:00 12/11/19 08:59 Promethazine HCl/ Codeine (Phenergan with Codeine) 5 ml Q4H PRN ORAL For Cough 11/11/19 09:00 12/11/19 08:59 Remdesivir 100 mg/ Sodium Chloride 250 ml @ 250 mls/hr Q24H IV 11/15/19 18:00 11/18/19 18:59 Tamsulosin HCl (Flomax) 0.4 mg DAILY ORAL 11/11/19 09:00 12/11/19 08:59 11/14/19 09:12 Temazepam (Restoril) 15 mg HSPRN PRN ORAL Insomnia 11/11/19 09:00 11/18/19 08:59 Vancomycin HCl (Firvanq) 125 mg FOUR TIMES A DAY ORAL 11/13/19 15:00 11/20/19 14:59 11/14/19 21:47 Vancomycin HCl ([facility] pharmacy to dose) 1 ea DAILY PRN MISC Per rx protocol 11/11/19 09:00 12/11/19 08:59 Neurological/Psychiatric: Reports: anxiety Allergies: Coded Allergies: No Known Allergies (Unverified , 09/16/19) Objective Data Height (Feet): 6 Height (Inches): 0.00 Weight (Pounds): 130 General Appearance: alert, confused, agitated Behavior Mannerisms: poor eye contact Mental Status Exam - Affect: blunted Mental Status Exam - Mood: agitated Mental Status Exam - Thought P: tangential, confusion Mental Status Exam - Suicidal: not present Additional Comments: alert, disoriented. Mood is anxious. Affect is flat. Thought process, there is a paucity of thought content. Thought content, no suicidal or homicidal ideation. Cognition is impaired. Insight and judgment are impaired. Assessment/Plan Status: unchanged Assessment/Plan: ASSESSMENT: 1. Acute encephalopathy. 2. Major depressive disorder. PLAN: 1. Continue soft restraints. 2. Remeron 7.5 mg at bedtime. 3. Discussed with the nurse. Jessica Quinonez MD Nov 14, 2019 22:41
[2019-11-15] VITALS: BP 110/62
[2019-11-15 04:00] VITALS: BP 115/74
[2019-11-15] MEDS: Cefepime HCl 1 GM in D5W 55 ML IV SCH (04:42)
[2019-11-15 07:16] LABS: HEMATOCRIT 27.8 % (42.0-52.0); HEMOGLOBIN 9.5 G/DL (14.2-18.0); MEAN CORPUSCULAR VOLUME 83 FL (80-99); PLATELET COUNT 646 K/UL (150-450); RED BLOOD COUNT 3.34 M/UL (4.70-6.10); RED CELL DISTRIBUTION WIDTH 13.1 % (11.6-14.8)
[2019-11-15 07:24] LABS: ALANINE AMINOTRANSFERASE 30 U/L (12-78); ALBUMIN 1.3 G/DL (3.4-5.0); ALBUMIN/GLOBULIN RATIO 0.3 (1.0-2.7); ALKALINE PHOSPHATASE 97 U/L (46-116); ANION GAP 8 mmol/L (5-15); ASPARTATE AMINO TRANSFERASE 31 U/L (15-37); BILIRUBIN,TOTAL 0.2 MG/DL (0.2-1.0); BLOOD UREA NITROGEN 60 mg/dL (7-18); CALCIUM 7.7 MG/DL (8.5-10.1); CARBON DIOXIDE 27 MMOL/L (21-32); CHLORIDE 112 MMOL/L (98-107); CREATININE 1.4 MG/DL (0.55-1.30); POTASSIUM 5.3 MMOL/L (3.5-5.1); SODIUM 146 MMOL/L (136-145)
[2019-11-15 07:28] LABS: WHITE BLOOD COUNT 34.8 K/UL (4.8-10.8)
[2019-11-15 08:00] VITALS: BP 134/72
[2019-11-15] MEDS: Tamsulosin 0.4mg cap ORAL SCH (08:49)
[2019-11-15] MEDS: Vancomycin oral 125mg/2.5ml ORAL SCH ×4 (08:49→21:00)
[2019-11-15] MEDS: Heparin 5000 units/ml inj SUBQ SCH ×2 (08:50→21:00)
[2019-11-15] MEDS ORDERED: Vancomycin 1.25gm/NS Premix IVPB ONE (09:00)
--- NOTE | 2019-11-15 11:54 | Pulmonology Progress Note ---
Subjective ROS Limited/Unobtainable: Yes Constitutional: Reports: no symptoms HEENT: Repors: no symptoms Respiratory: Reports: no symptoms Allergies: Coded Allergies: No Known Allergies (Unverified , 09/16/19) All Systems: reviewed and negative except above Objective Last 24 Hour Vital Signs Date Time Temp Pulse Resp B/P (MAP) Pulse Ox O2 Delivery O2 Flow Rate FiO2 11/15/19 09:00 Non-Rebreather 15.0 11/15/19 08:00 97.9 98 40 134/72 (92) 100 11/15/19 08:00 104 11/15/19 04:00 94 11/15/19 04:00 98.8 72 21 115/74 (88) 97 11/15/19 00:00 102 11/15/19 00:00 99.0 78 21 110/62 (78) 95 11/14/19 21:00 Non-Rebreather 15.0 11/14/19 20:00 98.9 70 25 104/58 (73) 95 11/14/19 20:00 113 11/14/19 19:57 97 Non-Rebreather 15.0 100 11/14/19 16:00 130 11/14/19 16:00 97.5 93 45 139/71 (93) 97 11/14/19 12:00 88 11/14/19 12:00 97.9 88 40 130/67 (88) 100 Intake and Output 11/14/19 11/15/19 18:59 06:59 Intake Total 1380 ml Output Total 475 ml 500 ml Balance -475 ml 880 ml Free Water 600 ml Tube Feeding 780 ml Output Urine Total 475 ml 500 ml # Voids 1 # Bowel Movements 4 General Appearance: cachetic HEENT: normocephalic, atraumatic Respiratory: chest wall non-tender, rhonchi - left, rhonchi - right Cardiovascular: normal peripheral pulses, normal rate Abdomen: normal bowel sounds, soft, non tender Genitourinary: normal external genitalia Skin: no rash Neurologic: functional manager II-XII grossly normal Laboratory Tests 11/14/19 12:16: Vancomycin Level Trough 23.4H 11/15/19 06:10: White Blood Count 34.8*H, Red Blood Count 3.34L, Hemoglobin 9.5L, Hematocrit 27.8L, Mean Corpuscular Volume 83, Mean Corpuscular Hemoglobin 28.4, Mean Corpuscular Hemoglobin Concent 34.2, Red Cell Distribution Width 13.1, Platelet Count 646H, Mean Platelet Volume 5.9L, Neutrophils (%) (Auto) , Lymphocytes (%) (Auto) , Monocytes (%) (Auto) , Eosinophils (%) (Auto) , Basophils (%) (Auto) , Differential Total Cells Counted 100, Neutrophils % (Manual) 87H, Lymphocytes % (Manual) 8L, Monocytes % (Manual) 5, Eosinophils % (Manual) 0, Basophils % ( Manual) 0, Band Neutrophils 0, Platelet Estimate IncreasedH, Platelet Morphology Normal, Sodium Level 146H, Potassium Level 5.3H, Chloride Level 112H , Carbon Dioxide Level 27, Anion Gap 8, Blood Urea Nitrogen 60H, Creatinine 1.4H , Estimat Glomerular Filtration Rate 49.8, Glucose Level 181H, Calcium Level 7.7L, Total Bilirubin 0.2, Direct Bilirubin < 0.1, Aspartate Amino Transf (AST/ SGOT) 31, Alanine Aminotransferase (ALT/SGPT) 30, Alkaline Phosphatase 97, Pro-B -Type Natriuretic Peptide 2350H, Total Protein 5.8L, Albumin 1.3L, Globulin 4.5 , Albumin/Globulin Ratio 0.3L, Random Vancomycin Level 19.2 Current Medications Medications (Trade) Dose Ordered Sig/Leonor Route PRN Reason Start Time Stop Time Status Last Admin Dose Admin Acetaminophen (Tylenol) 650 mg Q4H PRN ORAL fever 11/11/19 09:00 12/11/19 08:59 Albuterol/ Ipratropium (Albuterol/ Ipratropium) 3 ml Q4H PRN HHN Shortness of Breath 11/11/19 09:00 11/16/19 08:59 Cefepime HCl 1 gm/ Dextrose 55 ml @ 110 mls/hr Q24H IV 11/12/19 03:00 11/19/19 02:59 11/15/19 04:42 Heparin Sodium (Porcine) (Heparin 5000 units/ml) 5,000 units EVERY 12 HOURS SUBQ 11/11/19 09:00 12/26/19 08:59 11/15/19 08:50 Mirtazapine (Remeron) 7.5 mg BEDTIME GT 11/11/19 21:00 02/09/20 20:59 11/14/19 21:47 Nitroglycerin (Ntg) 0.4 mg Q5M PRN SL Prn Chest Pain 11/11/19 09:00 12/11/19 08:59 Ondansetron HCl (Zofran) 4 mg Q6H PRN IVP Nausea & Vomiting 11/11/19 09:00 12/11/19 08:59 Polyethylene Glycol (Miralax) 17 gm DAILYPRN PRN ORAL Constipation 11/11/19 09:00 12/11/19 08:59 Promethazine HCl/ Codeine (Phenergan with Codeine) 5 ml Q4H PRN ORAL For Cough 11/11/19 09:00 12/11/19 08:59 Remdesivir 100 mg/ Sodium Chloride 250 ml @ 250 mls/hr Q24H IV 11/15/19 18:00 11/18/19 18:59 Tamsulosin HCl (Flomax) 0.4 mg DAILY ORAL 11/11/19 09:00 12/11/19 08:59 11/15/19 08:49 Temazepam (Restoril) 15 mg HSPRN PRN ORAL Insomnia 11/11/19 09:00 11/18/19 08:59 Vancomycin HCl (Firvanq) 125 mg FOUR TIMES A DAY ORAL 11/13/19 15:00 11/20/19 14:59 11/15/19 08:49 Vancomycin HCl (Vanco pharmacy to dose) 1 ea DAILY PRN MISC Per rx protocol 11/11/19 09:00 12/11/19 08:59 Assessment/Plan Problems: (1) 2019 novel coronavirus disease (COVID-19) (2) Respiratory failure with hypoxia (3) Sepsis (4) Left carotid artery occlusion (5) Hypertension (6) DM (diabetes mellitus) (7) Left middle cerebral artery stroke Assessment/Plan wbc increasing gain, all cultures reviewed respiratory rate is high, repeat ABG continue abx sliding scale check electrolytes repeat cultures dvt prophylaxis. Ayana Ndiaye MD Nov 15, 2019 11:54
[2019-11-15 12:00] VITALS: BP 136/72
--- NOTE | 2019-11-15 12:21 | Consultation ---
History of Present Illness General Chief Complaint: Dyspnea/Respdistress Present Illness Allergies: Coded Allergies: No Known Allergies (Unverified , 09/16/19) Medication History Scheduled Amlodipine Besylate* (Amlodipine Besylate*), 5 MG GT DAILY, (Reported) Aspirin* (Aspirin*), 162 MG NG DAILY Mirtazapine* (Mirtazapine*), 7.5 MG GT BEDTIME, (Reported) Multivitamin With Minerals (Multivitamins With Minerals*), 1 TAB GT DAILY, ( Reported) Tamsulosin HCl (Flomax), 0.4 MG GT DAILY, (Reported) Scheduled PRN Acetaminophen* (Acetaminophen 325MG Tablet*), 650 MG GT Q4H PRN for For Pain, ( Reported) Albuterol Sulfate* (Albuterol Sulfate Hhn*), 3 ML INH Q4H PRN for Shortness of Breath, (Reported) Amlodipine Besylate (Norvasc), 5 MG NG Q12H PRN Loperamide Hcl (Loperamide), 2 MG NG Q6H PRN Ondansetron* (Zofran*), 4 MG GT Q6H PRN for Nausea & Vomiting, (Reported) Miscellaneous Medications Loperamide Hcl (Loperamide), 1 MG GT, (Reported) Discontinued Medications Lisinopril* (Prinivil*), 20 MG NG DAILY Discontinued Reason: discontinued med Metformin Hcl* (Glucophage*), 500 MG NG BID Discontinued Reason: discontinued med Minoxidil (Minoxidil), 2.5 MG ORAL Q4H PRN Discontinued Reason: discontinued med [Acetaminophen], 650 MG NG Q4H PRN Discontinued Reason: discontinued med Patient History Healthcare decision maker Resuscitation status Advanced Directive on File Physical Exam Last 24 Hour Vital Signs Date Time Temp Pulse Resp B/P (MAP) Pulse Ox O2 Delivery O2 Flow Rate FiO2 11/15/19 09:00 Non-Rebreather 15.0 11/15/19 08:00 97.9 98 40 134/72 (92) 100 11/15/19 08:00 104 11/15/19 04:00 94 11/15/19 04:00 98.8 72 21 115/74 (88) 97 11/15/19 00:00 102 11/15/19 00:00 99.0 78 21 110/62 (78) 95 11/14/19 21:00 Non-Rebreather 15.0 11/14/19 20:00 98.9 70 25 104/58 (73) 95 11/14/19 20:00 113 11/14/19 19:57 97 Non-Rebreather 15.0 100 11/14/19 16:00 130 11/14/19 16:00 97.5 93 45 139/71 (93) 97 Intake and Output 11/14/19 11/15/19 19:00 07:00 Intake Total 215 ml 1165 ml Output Total 475 ml 500 ml Balance -260 ml 665 ml Free Water 150 ml 450 ml Tube Feeding 65 ml 715 ml Output Urine Total 475 ml 500 ml # Voids 1 # Bowel Movements 1 3 Laboratory Tests Test 11/14/19 12:16 11/15/19 06:10 Vancomycin Level Trough 23.4 ug/mL (5.0-12.0) H White Blood Count 34.8 K/UL (4.8-10.8) *H Red Blood Count 3.34 M/UL (4.70-6.10) L Hemoglobin 9.5 G/DL (14.2-18.0) L Hematocrit 27.8 % (42.0-52.0) L Mean Corpuscular Volume 83 FL (80-99) Mean Corpuscular Hemoglobin 28.4 PG (27.0-31.0) Mean Corpuscular Hemoglobin Concent 34.2 G/DL (32.0-36.0) Red Cell Distribution Width 13.1 % (11.6-14.8) Platelet Count 646 K/UL (150-450) H Mean Platelet Volume 5.9 FL (6.5-10.1) L Neutrophils (%) (Auto) % (45.0-75.0) Lymphocytes (%) (Auto) % (20.0-45.0) Monocytes (%) (Auto) % (1.0-10.0) Eosinophils (%) (Auto) % (0.0-3.0) Basophils (%) (Auto) % (0.0-2.0) Differential Total Cells Counted 100 Neutrophils % (Manual) 87 % (45-75) H Lymphocytes % (Manual) 8 % (20-45) L Monocytes % (Manual) 5 % (1-10) Eosinophils % (Manual) 0 % (0-3) Basophils % (Manual) 0 % (0-2) Band Neutrophils 0 % (0-8) Platelet Estimate Increased H Platelet Morphology Normal Sodium Level 146 MMOL/L (136-145) H Potassium Level 5.3 MMOL/L (3.5-5.1) H Chloride Level 112 MMOL/L (98-107) H Carbon Dioxide Level 27 MMOL/L (21-32) Anion Gap 8 mmol/L (5-15) Blood Urea Nitrogen 60 mg/dL (7-18) H Creatinine 1.4 MG/DL (0.55-1.30) H Estimat Glomerular Filtration Rate 49.8 mL/min (>60) Glucose Level 181 MG/DL (74-106) H Calcium Level 7.7 MG/DL (8.5-10.1) L Total Bilirubin 0.2 MG/DL (0.2-1.0) Direct Bilirubin < 0.1 MG/DL (0.0-0.3) Aspartate Amino Transf (AST/SGOT) 31 U/L (15-37) Alanine Aminotransferase (ALT/SGPT) 30 U/L (12-78) Alkaline Phosphatase 97 U/L (46-116) Pro-B-Type Natriuretic Peptide 2350 pg/mL (0-125) H Total Protein 5.8 G/DL (6.4-8.2) L Albumin 1.3 G/DL (3.4-5.0) L Globulin 4.5 g/dL Albumin/Globulin Ratio 0.3 (1.0-2.7) L Random Vancomycin Level 19.2 ug/mL Height (Feet): 6 Height (Inches): 0.00 Weight (Pounds): 130 Medications Current Medications Medications (Trade) Dose Ordered Sig/Leonor Route PRN Reason Start Time Stop Time Status Last Admin Dose Admin Acetaminophen (Tylenol) 650 mg Q4H PRN ORAL fever 11/11/19 09:00 12/11/19 08:59 Albuterol/ Ipratropium (Albuterol/ Ipratropium) 3 ml Q4H PRN HHN Shortness of Breath 11/11/19 09:00 11/16/19 08:59 Cefepime HCl 1 gm/ Dextrose 55 ml @ 110 mls/hr Q24H IV 11/12/19 03:00 11/19/19 02:59 11/15/19 04:42 Heparin Sodium (Porcine) (Heparin 5000 units/ml) 5,000 units EVERY 12 HOURS SUBQ 11/11/19 09:00 12/26/19 08:59 11/15/19 08:50 Mirtazapine (Remeron) 7.5 mg BEDTIME GT 11/11/19 21:00 02/09/20 20:59 11/14/19 21:47 Nitroglycerin (Ntg) 0.4 mg Q5M PRN SL Prn Chest Pain 11/11/19 09:00 12/11/19 08:59 Ondansetron HCl (Zofran) 4 mg Q6H PRN IVP Nausea & Vomiting 11/11/19 09:00 12/11/19 08:59 Polyethylene Glycol (Miralax) 17 gm DAILYPRN PRN ORAL Constipation 11/11/19 09:00 12/11/19 08:59 Promethazine HCl/ Codeine (Phenergan with Codeine) 5 ml Q4H PRN ORAL For Cough 11/11/19 09:00 12/11/19 08:59 Remdesivir 100 mg/ Sodium Chloride 250 ml @ 250 mls/hr Q24H IV 11/15/19 18:00 11/18/19 18:59 Tamsulosin HCl (Flomax) 0.4 mg DAILY ORAL 11/11/19 09:00 12/11/19 08:59 11/15/19 08:49 Temazepam (Restoril) 15 mg HSPRN PRN ORAL Insomnia 11/11/19 09:00 11/18/19 08:59 Vancomycin HCl (Firvanq) 125 mg FOUR TIMES A DAY ORAL 11/13/19 15:00 11/20/19 14:59 11/15/19 08:49 Vancomycin HCl (Vanco pharmacy to dose) 1 ea DAILY PRN MISC Per rx protocol 11/11/19 09:00 12/11/19 08:59 Assessment/Plan Assessment/Plan: Hematology Consultation Note REQ MD Juan Singh RFC: Leukocytosis and anemia DOS 11/15/2019 ID This is a 74-year-old male with multiple medical problems. He has a history of CVA, diabetes, hypertension and sepsis. He has a G-tube. He resides in a care home. He presents with respiratory distress and hypoxia. Onset for last few days but worse today. Per EMS he was in the 77% on room air. Oxygen was given and the patient was sent here. Patient has cough and congestion. Low -grade fever. History is limited as patient because of his condition. History is through EMS and nursing note. Now p/t omc given abx, resedimivir for covid19 , seen by several consultants, heme consulted for eval of ongoing wbc elevat Coded Allergies: No Known Allergies (Unverified , 09/16/19) UNABLE TO ASSESS (Unverified , 06/18/19) COVID-19 Screening Contact w/high risk pt: Yes Recent Travel to affected area: No Experienced COVID-19 symptoms?: Yes COVID-19 symptoms experienced: Shortness of Breath COVID-19 Testing performed ROLLER INSPECTOR: No Patient History Past Medical History: see triage record, old chart reviewed, DM, HTN, CVA/TIA Past Surgical History: other - G-tube Pertinent Family History: none Social History: Denies: smoking Immunizations: other Reviewed Nursing Documentation: PMH: Agreed; PSxH: Agreed Nursing Documentation-PMH Hx Cardiac Problems: Yes Hx Hypertension: Yes Hx Pacemaker: No Hx Asthma: No Hx COPD: No Hx Diabetes: Yes Hx Cancer: No Hx Gastrointestinal Problems: No Hx Dialysis: No History Of Psychiatric Problem: Yes - depression Hx Neurological Problems: Yes - AMS, dementia, Hx Cerebrovascular Accident: Yes Hx Seizures: No Review of Systems nonverbal PE General: alert, chronically Ill Heent: nc, at Neck: full range of motion, supple, no meningismus Respiratory: chest non-tender, decreased breath sounds, crackles Cardiovascular: no murmur, tachycardia Gastrointestinal: normal bowel sounds, non tender,+peg Musculoskeletal: back normal, normal range of motion, gait/station normal Neurologic: no pronator Labs reviewed Imaging noted Assessment and Recs # Leukocytosis/elevated white blood cell count, unspecified likely related to underlying stress reaction, smoking v more likely infection, in this case with pna and COVID19++++++++ --> have reviewed peripheral smear and bandemia/neutrophilia noted --> continue antibiotics if they have been started by ID team --> monitor for resolution --> wbc 35k # Thrombocytosis - if plt count >400k, most usually is a reactive process and will improve once exacerbant removed as well --> in this case due to underlying infection --> plt trend 646k # Anemia of chronic disease due to underlying chronic medical issues, multifactorial v Gi bleed --> Anemia workup has been ordered, rule out gi bleed -> ferritin 1339 --> No evidence of hemolysis is noted, peripheral smear has been reviewed. --> Hgb goal >7. Transfuse prn. --> Epogen or iron at this time is not particularly indicated --> Medications have been reviewed --> low threshold for gi evaluation in case has occult + --> bone marrow biopsy is not indicated given the other more likely causes --> hgb 9.5 # Acute hypoxic resp failure- on NRB 15L- 2ry to COVID19 --> per id and pulm recs --> breathing treatments and rep cxr # UTI c/w bacteremia --> s/p abx # Cdiff colitis # MONICA, improving # Deep tissue injury (sacrum, L heel) # HTN # Dm2 # MDD # Dysphagia s/p GT # malnutrition # decubitus ulcer # non verbal # 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 Greatly appreciate consultation. Deng Flowers MD Nov 15, 2019 12:21
--- NOTE | 2019-11-15 13:01 | General Progress Note ---
Assessment/Plan Problem List: (1) DM (diabetes mellitus) ICD Codes: E11.9 - Type 2 diabetes mellitus without complications SNOMED: 94282483 (2) ARF (acute renal failure) ICD Codes: N17.9 - Acute kidney failure, unspecified SNOMED: 74582885 Qualifiers: Qualified Codes: N17.9 - Acute kidney failure, unspecified (3) Aspiration pneumonia ICD Codes: J69.0 - Pneumonitis due to inhalation of food and vomit SNOMED: 757518066 (4) UTI (urinary tract infection) ICD Codes: N39.0 - Urinary tract infection, site not specified SNOMED: 36398721 Qualifiers: Qualified Codes: N30.00 - Acute cystitis without hematuria (5) Hypertension ICD Codes: I10 - Essential (primary) hypertension SNOMED: 82032090 (6) Anemia ICD Codes: D64.9 - Anemia, unspecified SNOMED: 485181446 Qualifiers: Qualified Codes: D64.9 - Anemia, unspecified (7) Respiratory failure with hypoxia ICD Codes: J96.91 - Respiratory failure, unspecified with hypoxia SNOMED: 43624591651185725 Qualifiers: Qualified Codes: J96.01 - Acute respiratory failure with hypoxia (8) Suspected COVID-19 virus infection ICD Codes: Z20.828 - Contact with and (suspected) exposure to other viral communicable diseases SNOMED: 361000581 Status: unchanged Assessment/Plan: o2 pulm tx abx pt diet cbc bmp am Subjective Allergies: Coded Allergies: No Known Allergies (Unverified , 09/16/19) All Systems: reviewed and negative except above Subjective o2mask sleepy calm Objective Last 24 Hour Vital Signs Date Time Temp Pulse Resp B/P (MAP) Pulse Ox O2 Delivery O2 Flow Rate FiO2 11/15/19 12:00 103 11/15/19 12:00 99.6 103 44 136/72 (93) 100 11/15/19 09:00 Non-Rebreather 15.0 11/15/19 08:00 97.9 98 40 134/72 (92) 100 11/15/19 08:00 104 11/15/19 04:00 94 11/15/19 04:00 98.8 72 21 115/74 (88) 97 11/15/19 00:00 102 11/15/19 00:00 99.0 78 21 110/62 (78) 95 11/14/19 21:00 Non-Rebreather 15.0 11/14/19 20:00 98.9 70 25 104/58 (73) 95 11/14/19 20:00 113 11/14/19 19:57 97 Non-Rebreather 15.0 100 11/14/19 16:00 130 11/14/19 16:00 97.5 93 45 139/71 (93) 97 Intake and Output 11/14/19 11/15/19 19:00 07:00 Intake Total 215 ml 1165 ml Output Total 475 ml 500 ml Balance -260 ml 665 ml Free Water 150 ml 450 ml Tube Feeding 65 ml 715 ml Output Urine Total 475 ml 500 ml # Voids 1 # Bowel Movements 1 3 Laboratory Tests 11/15/19 06:10: White Blood Count 34.8*H, Red Blood Count 3.34L, Hemoglobin 9.5L, Hematocrit 27.8L, Mean Corpuscular Volume 83, Mean Corpuscular Hemoglobin 28.4, Mean Corpuscular Hemoglobin Concent 34.2, Red Cell Distribution Width 13.1, Platelet Count 646H, Mean Platelet Volume 5.9L, Neutrophils (%) (Auto) , Lymphocytes (%) (Auto) , Monocytes (%) (Auto) , Eosinophils (%) (Auto) , Basophils (%) (Auto) , Differential Total Cells Counted 100, Neutrophils % (Manual) 87H, Lymphocytes % (Manual) 8L, Monocytes % (Manual) 5, Eosinophils % (Manual) 0, Basophils % ( Manual) 0, Band Neutrophils 0, Platelet Estimate IncreasedH, Platelet Morphology Normal, Sodium Level 146H, Potassium Level 5.3H, Chloride Level 112H , Carbon Dioxide Level 27, Anion Gap 8, Blood Urea Nitrogen 60H, Creatinine 1.4H , Estimat Glomerular Filtration Rate 49.8, Glucose Level 181H, Calcium Level 7.7L, Total Bilirubin 0.2, Direct Bilirubin < 0.1, Aspartate Amino Transf (AST/ SGOT) 31, Alanine Aminotransferase (ALT/SGPT) 30, Alkaline Phosphatase 97, Pro-B -Type Natriuretic Peptide 2350H, Total Protein 5.8L, Albumin 1.3L, Globulin 4.5 , Albumin/Globulin Ratio 0.3L, Random Vancomycin Level 19.2 Height (Feet): 6 Height (Inches): 0.00 Weight (Pounds): 130 General Appearance: lethargic EENT: normal ENT inspection Neck: normal alignment Cardiovascular: normal rate, regular rhythm Respiratory/Chest: no respiratory distress, no accessory muscle use Extremities: normal inspection Skin: normal pigmentation Juan Singh DO Nov 15, 2019 13:01
--- NOTE | 2019-11-15 13:07 | Infectious Diseases Prog Note ---
Assessment/Plan Assessment/Plan Assessment: Severe Sepsis Fever, SP Leukocytosis; worsening Pneumonia Acute hypoxic resp failure- on NRB 15L- 2ry to COVID19 and superimposed bacterial PNA -11/11 CXR: Mild interstitial thickening is slightly improved. -11/10 CXR: Hazy basilar infiltrates left greater than right. sp cx PsA (blackwood S), P.mirabilis (blackwood S), S. aureus (S Vanco CARLOS 1, bactrim; R tetracycline ) -11/10 SARS-COV2 positive UTI c/w bacteremia -u/a wbc 5-10, nit neg, leuk +1, RBC TNCT; ucx 10-20k E. faecalis (S amp, vanco) -11/10 Bcx 2/4 E. faecalis (S Vancomycin, AMP) CONS bacteremia- likely contaminant -11/10 Bcx 2/ S. warnerii; 11/11 Bcx NTD Severe Cdiff colitis -11/10 Cdiff toxin A/B + MONICA, improving Deep tissue injury (sacrum, L heel)- no signs of infection HTN Dm2 MDD aspiration PNA dysphagia s/p GT malnutrition decubitus ulcer non verbal L MCA CVA 2ry to occlusion L ICA NH resident ([facility] [place]) VRE colonized MRSA colonized Plan: -Continue empiric IV Vancomycin and Cefepime #5 for UTI and PNA based on cultures -Cont PO Vancomycin 125mg qid #3 and add IV Flagyl for severe Cdiff -On Remdesivir (11/13- )per [facility] [place] pharmacy protocol -f/u cx -Monitor CBC/CMP, temperature -COVID19 isolation and testing -PEG care -wound care per surgical team -aspiration precautions -f/u repeat Bcx -will need 2d echo later on this admission Thank you for consulting [facility]. Will continue to follow along with you. Discussed with RN and Lee Ann from Pharmacy Subjective Allergies: Coded Allergies: No Known Allergies (Unverified , 09/16/19) Subjective afebrile On NRB 15L wbc increased to 34 repeat Bcx NTD Objective Vital Signs Last 24 Hour Vital Signs Date Time Temp Pulse Resp B/P (MAP) Pulse Ox O2 Delivery O2 Flow Rate FiO2 11/15/19 09:00 Non-Rebreather 15.0 11/15/19 08:00 97.9 98 40 134/72 (92) 100 11/15/19 08:00 104 11/15/19 04:00 94 11/15/19 04:00 98.8 72 21 115/74 (88) 97 11/15/19 00:00 102 11/15/19 00:00 99.0 78 21 110/62 (78) 95 11/14/19 21:00 Non-Rebreather 15.0 11/14/19 20:00 98.9 70 25 104/58 (73) 95 11/14/19 20:00 113 11/14/19 19:57 97 Non-Rebreather 15.0 100 11/14/19 16:00 130 11/14/19 16:00 97.5 93 45 139/71 (93) 97 Height (Feet): 6 Height (Inches): 0.00 Weight (Pounds): 130 Objective not examined to limit COVID19 exposure Laboratory Tests Test 11/15/19 06:10 White Blood Count 34.8 K/UL (4.8-10.8) *H Red Blood Count 3.34 M/UL (4.70-6.10) L Hemoglobin 9.5 G/DL (14.2-18.0) L Hematocrit 27.8 % (42.0-52.0) L Mean Corpuscular Volume 83 FL (80-99) Mean Corpuscular Hemoglobin 28.4 PG (27.0-31.0) Mean Corpuscular Hemoglobin Concent 34.2 G/DL (32.0-36.0) Red Cell Distribution Width 13.1 % (11.6-14.8) Platelet Count 646 K/UL (150-450) H Mean Platelet Volume 5.9 FL (6.5-10.1) L Neutrophils (%) (Auto) % (45.0-75.0) Lymphocytes (%) (Auto) % (20.0-45.0) Monocytes (%) (Auto) % (1.0-10.0) Eosinophils (%) (Auto) % (0.0-3.0) Basophils (%) (Auto) % (0.0-2.0) Differential Total Cells Counted 100 Neutrophils % (Manual) 87 % (45-75) H Lymphocytes % (Manual) 8 % (20-45) L Monocytes % (Manual) 5 % (1-10) Eosinophils % (Manual) 0 % (0-3) Basophils % (Manual) 0 % (0-2) Band Neutrophils 0 % (0-8) Platelet Estimate Increased H Platelet Morphology Normal Sodium Level 146 MMOL/L (136-145) H Potassium Level 5.3 MMOL/L (3.5-5.1) H Chloride Level 112 MMOL/L (98-107) H Carbon Dioxide Level 27 MMOL/L (21-32) Anion Gap 8 mmol/L (5-15) Blood Urea Nitrogen 60 mg/dL (7-18) H Creatinine 1.4 MG/DL (0.55-1.30) H Estimat Glomerular Filtration Rate 49.8 mL/min (>60) Glucose Level 181 MG/DL (74-106) H Calcium Level 7.7 MG/DL (8.5-10.1) L Total Bilirubin 0.2 MG/DL (0.2-1.0) Direct Bilirubin < 0.1 MG/DL (0.0-0.3) Aspartate Amino Transf (AST/SGOT) 31 U/L (15-37) Alanine Aminotransferase (ALT/SGPT) 30 U/L (12-78) Alkaline Phosphatase 97 U/L (46-116) Pro-B-Type Natriuretic Peptide 2350 pg/mL (0-125) H Total Protein 5.8 G/DL (6.4-8.2) L Albumin 1.3 G/DL (3.4-5.0) L Globulin 4.5 g/dL Albumin/Globulin Ratio 0.3 (1.0-2.7) L Random Vancomycin Level 19.2 ug/mL Current Medications Medications (Trade) Dose Ordered Sig/Leonor Route PRN Reason Start Time Stop Time Status Last Admin Dose Admin Acetaminophen (Tylenol) 650 mg Q4H PRN ORAL fever 11/11/19 09:00 12/11/19 08:59 Albuterol/ Ipratropium (Albuterol/ Ipratropium) 3 ml Q4H PRN HHN Shortness of Breath 11/11/19 09:00 11/16/19 08:59 Cefepime HCl 1 gm/ Dextrose 55 ml @ 110 mls/hr Q24H IV 11/12/19 03:00 11/19/19 02:59 11/15/19 04:42 Heparin Sodium (Porcine) (Heparin 5000 units/ml) 5,000 units EVERY 12 HOURS SUBQ 11/11/19 09:00 12/26/19 08:59 11/15/19 08:50 Mirtazapine (Remeron) 7.5 mg BEDTIME GT 11/11/19 21:00 02/09/20 20:59 11/14/19 21:47 Nitroglycerin (Ntg) 0.4 mg Q5M PRN SL Prn Chest Pain 11/11/19 09:00 12/11/19 08:59 Ondansetron HCl (Zofran) 4 mg Q6H PRN IVP Nausea & Vomiting 11/11/19 09:00 12/11/19 08:59 Polyethylene Glycol (Miralax) 17 gm DAILYPRN PRN ORAL Constipation 11/11/19 09:00 12/11/19 08:59 Promethazine HCl/ Codeine (Phenergan with Codeine) 5 ml Q4H PRN ORAL For Cough 11/11/19 09:00 12/11/19 08:59 Remdesivir 100 mg/ Sodium Chloride 250 ml @ 250 mls/hr Q24H IV 11/15/19 18:00 11/18/19 18:59 Tamsulosin HCl (Flomax) 0.4 mg DAILY ORAL 11/11/19 09:00 12/11/19 08:59 11/15/19 08:49 Temazepam (Restoril) 15 mg HSPRN PRN ORAL Insomnia 11/11/19 09:00 11/18/19 08:59 Vancomycin HCl (Firvanq) 125 mg FOUR TIMES A DAY ORAL 11/13/19 15:00 11/20/19 14:59 11/15/19 08:49 Vancomycin HCl (Vanco pharmacy to dose) 1 ea DAILY PRN MISC Per rx protocol 11/11/19 09:00 12/11/19 08:59 Shannon Mark M.D. Nov 15, 2019 13:07
--- NOTE | 2019-11-15 14:48 | Nephrology Progress Note ---
Assessment/Plan Problem List: (1) ARF (acute renal failure) (2) Hyperkalemia (3) DM (diabetes mellitus) (4) Suspected COVID-19 virus infection Assessment his 74-year-old male with multiple Multiple medical problem presents with respiratory symptoms and diarrhea Renal failure most likely prerenal azotemia secondary to dehydration Hyperkalemia on presentation also secondary to dehydration Sepsis pneumonia hypoxia UTI Anemia History of hypertension History of diabetes mellitus Suspected COVID-19 virus infection Hypoalbuminemia Plan C. difficile positive COVID-19 detected Hydrate , monitor electrolytes Will change the feeding to Nepro and monitor her potassium and other electrolytes Continue per ID Keep the blood pressure and blood sugar in check Monitor renal parameters Previously: Urine studies Monitor intake and output Cultures including stool for C. difficile Per orders Patient's CODE STATUS is full Subjective ROS Limited/Unobtainable: No Constitutional: Reports: malaise, weakness Objective Objective Last 24 Hour Vital Signs Date Time Temp Pulse Resp B/P (MAP) Pulse Ox O2 Delivery O2 Flow Rate FiO2 11/15/19 12:00 103 11/15/19 12:00 99.6 103 44 136/72 (93) 100 11/15/19 09:00 Non-Rebreather 15.0 11/15/19 08:00 97.9 98 40 134/72 (92) 100 11/15/19 08:00 104 11/15/19 04:00 94 11/15/19 04:00 98.8 72 21 115/74 (88) 97 11/15/19 00:00 102 11/15/19 00:00 99.0 78 21 110/62 (78) 95 11/14/19 21:00 Non-Rebreather 15.0 11/14/19 20:00 98.9 70 25 104/58 (73) 95 11/14/19 20:00 113 11/14/19 19:57 97 Non-Rebreather 15.0 100 11/14/19 16:00 130 11/14/19 16:00 97.5 93 45 139/71 (93) 97 Intake and Output 11/14/19 11/15/19 19:00 07:00 Intake Total 215 ml 1165 ml Output Total 475 ml 500 ml Balance -260 ml 665 ml Free Water 150 ml 450 ml Tube Feeding 65 ml 715 ml Output Urine Total 475 ml 500 ml # Voids 1 # Bowel Movements 1 3 Laboratory Tests 11/15/19 06:10: White Blood Count 34.8*H, Red Blood Count 3.34L, Hemoglobin 9.5L, Hematocrit 27.8L, Mean Corpuscular Volume 83, Mean Corpuscular Hemoglobin 28.4, Mean Corpuscular Hemoglobin Concent 34.2, Red Cell Distribution Width 13.1, Platelet Count 646H, Mean Platelet Volume 5.9L, Neutrophils (%) (Auto) , Lymphocytes (%) (Auto) , Monocytes (%) (Auto) , Eosinophils (%) (Auto) , Basophils (%) (Auto) , Differential Total Cells Counted 100, Neutrophils % (Manual) 87H, Lymphocytes % (Manual) 8L, Monocytes % (Manual) 5, Eosinophils % (Manual) 0, Basophils % ( Manual) 0, Band Neutrophils 0, Platelet Estimate IncreasedH, Platelet Morphology Normal, Sodium Level 146H, Potassium Level 5.3H, Chloride Level 112H , Carbon Dioxide Level 27, Anion Gap 8, Blood Urea Nitrogen 60H, Creatinine 1.4H , Estimat Glomerular Filtration Rate 49.8, Glucose Level 181H, Calcium Level 7.7L, Total Bilirubin 0.2, Direct Bilirubin < 0.1, Aspartate Amino Transf (AST/ SGOT) 31, Alanine Aminotransferase (ALT/SGPT) 30, Alkaline Phosphatase 97, Pro-B -Type Natriuretic Peptide 2350H, Total Protein 5.8L, Albumin 1.3L, Globulin 4.5 , Albumin/Globulin Ratio 0.3L, Random Vancomycin Level 19.2 Height (Feet): 6 Height (Inches): 0.00 Weight (Pounds): 130 General Appearance: lethargic Cardiovascular: tachycardia Respiratory/Chest: decreased breath sounds Abdomen: distended Ricardo Choudhary MD Nov 15, 2019 14:48
--- NOTE | 2019-11-15 15:52 | Surgery Progress Note ---
Surgery Progress Note Subjective Additional Comments worsening leukocytosis ill appearing exam stable otherwise Objective Last 24 Hour Vital Signs Date Time Temp Pulse Resp B/P (MAP) Pulse Ox O2 Delivery O2 Flow Rate FiO2 11/15/19 12:00 103 11/15/19 12:00 99.6 103 44 136/72 (93) 100 11/15/19 09:00 Non-Rebreather 15.0 11/15/19 08:00 97.9 98 40 134/72 (92) 100 11/15/19 08:00 104 11/15/19 04:00 94 11/15/19 04:00 98.8 72 21 115/74 (88) 97 11/15/19 00:00 102 11/15/19 00:00 99.0 78 21 110/62 (78) 95 11/14/19 21:00 Non-Rebreather 15.0 11/14/19 20:00 98.9 70 25 104/58 (73) 95 11/14/19 20:00 113 11/14/19 19:57 97 Non-Rebreather 15.0 100 11/14/19 16:00 130 11/14/19 16:00 97.5 93 45 139/71 (93) 97 I&O Intake and Output 11/14/19 11/15/19 19:00 07:00 Intake Total 215 ml 1165 ml Output Total 475 ml 500 ml Balance -260 ml 665 ml Free Water 150 ml 450 ml Tube Feeding 65 ml 715 ml Output Urine Total 475 ml 500 ml # Voids 1 # Bowel Movements 1 3 Dressing: other Wound: other Drains: other Cardiovascular: RSR Respiratory: decreased breath sounds Abdomen: soft, non-tender, present bowel sounds Extremities: no cyanosis Laboratory Tests Test 11/15/19 06:10 White Blood Count 34.8 K/UL (4.8-10.8) *H Red Blood Count 3.34 M/UL (4.70-6.10) L Hemoglobin 9.5 G/DL (14.2-18.0) L Hematocrit 27.8 % (42.0-52.0) L Mean Corpuscular Volume 83 FL (80-99) Mean Corpuscular Hemoglobin 28.4 PG (27.0-31.0) Mean Corpuscular Hemoglobin Concent 34.2 G/DL (32.0-36.0) Red Cell Distribution Width 13.1 % (11.6-14.8) Platelet Count 646 K/UL (150-450) H Mean Platelet Volume 5.9 FL (6.5-10.1) L Neutrophils (%) (Auto) % (45.0-75.0) Lymphocytes (%) (Auto) % (20.0-45.0) Monocytes (%) (Auto) % (1.0-10.0) Eosinophils (%) (Auto) % (0.0-3.0) Basophils (%) (Auto) % (0.0-2.0) Differential Total Cells Counted 100 Neutrophils % (Manual) 87 % (45-75) H Lymphocytes % (Manual) 8 % (20-45) L Monocytes % (Manual) 5 % (1-10) Eosinophils % (Manual) 0 % (0-3) Basophils % (Manual) 0 % (0-2) Band Neutrophils 0 % (0-8) Platelet Estimate Increased H Platelet Morphology Normal Sodium Level 146 MMOL/L (136-145) H Potassium Level 5.3 MMOL/L (3.5-5.1) H Chloride Level 112 MMOL/L (98-107) H Carbon Dioxide Level 27 MMOL/L (21-32) Anion Gap 8 mmol/L (5-15) Blood Urea Nitrogen 60 mg/dL (7-18) H Creatinine 1.4 MG/DL (0.55-1.30) H Estimat Glomerular Filtration Rate 49.8 mL/min (>60) Glucose Level 181 MG/DL (74-106) H Calcium Level 7.7 MG/DL (8.5-10.1) L Total Bilirubin 0.2 MG/DL (0.2-1.0) Direct Bilirubin < 0.1 MG/DL (0.0-0.3) Aspartate Amino Transf (AST/SGOT) 31 U/L (15-37) Alanine Aminotransferase (ALT/SGPT) 30 U/L (12-78) Alkaline Phosphatase 97 U/L (46-116) Pro-B-Type Natriuretic Peptide 2350 pg/mL (0-125) H Total Protein 5.8 G/DL (6.4-8.2) L Albumin 1.3 G/DL (3.4-5.0) L Globulin 4.5 g/dL Albumin/Globulin Ratio 0.3 (1.0-2.7) L Random Vancomycin Level 19.2 ug/mL Plan Problems: (1) Decubitus skin ulcer Assessment & Plan: Pt presented on admission with large sacral wound. Base of wound with areas that area purple and indurated sacrococcygeal,L sacrum/L gluteus,Scattered wounds with maceration L gluteus, one wound R sacrum with Biofilm, Surrounding non-blanching erythema entire buttocks. Small dry scabbed area noted to lumbar area. Unstageable Pressure Injury L heel. Base of wound is necrotic with surrounding non-blanching erythema. Tx.plan: Apply Moisture Barrier Paste to Buttocks. Cover Sacrum, R and L gluteal cheeks with Optifoam drsgs. Change every 3 days and prn. Apply Betadine to L heel. Cover with Optifoam drsg. Change every 3 days and prn. Reposition at least every 2hours or as tolerated. Place Pillow between knees. Off-load heels with Pillow. APM/BRUNILDA Mattress overlay. DAILY ESTIMATED NEEDS: Needs based on wt loss, underweight, wound/ 59kg 30-35 kcals/kg 2880-8198 total kcals 1.25-2 g protein/kg 74-118 g total protein 25-30 mL/kg 6722-9475 total fluid mLs NUTRITION DIAGNOSIS: * Increased kcal/prot intake needs R/T wound healing, suspected recent significant wt loss as evidenced by admitted w/ wounds @ lt posterior heel, R lower back, sacrum as per photos, pending eval, suspected significant wt loss of 40lbs/ 23.7% in <5 months, currently @ 81% IBW. . * Swallowing difficulty R/T dysphagia, h/o CVA as evidenced by PEG dependent. CURRENT TF:Glucerna 1.2 @65ml/hr x24 hrs ENTERAL NUTRITION RECOMMENDATIONS: NEPRO @45ml/hr x24 hrs to provide 1080ml, 1944 kcal, 87g pro, 785ml free H2O - Rec TF change for lower K content (1145mg in Nepro @45 vs 3151mg in Glucerna 1.2 @65) - Start at 25ml/hr advance as tolerated 10ml/hr q4-6 hrs - HOB over 30 degrees - Increased H20 flush to 200ml q4 hrs ADDITIONAL RECOMMENDATIONS: 1) Calibrated bedscale wt -> per SNF: HT=59" and KC=320ijo (10/20/19) 2) Wound healing: Add Vit C 500mg QD/ or dosing per nephro Add Osbaldo BID via PEG w/ TF order 3) Monitor lytes: monitor K trend, need for renal TF (K 5.3, 5.5) 4) NISS w/ TF (h/o DM) 5) Monitor for diarrhea, rec probiotics (2) Sepsis Assessment & Plan: 74-year-old male multi-medical comorbidities admitted for respiratory deficiency currently tachypneic, leukocytosis, malnutrition, hypoalbuminemia. Complete physical exam performed identified areas of concerned given patient's comorbidities current condition high risk for deteriorationNo active infection identified from patient's wounds and likely respiratory nature. Chest x-ray reviewed. No acute surgical intervention planned at this time Preventive measures IV antibiotics per infectious disease Okay for feeding once stable respiratory Appreciate Pulm input c diff positive on vanco blood cx noted worsening leukocytosis ID abx noted heme input noted We will follow with recommendations thank you for let me participate patient's care (3) Left carotid artery occlusion (4) Left middle cerebral artery stroke (5) DM (diabetes mellitus) (6) ARF (acute renal failure) (7) Ventricular tachyarrhythmia (8) Aspiration pneumonia (9) Hypertension (10) UTI (urinary tract infection) (11) Anemia (12) Respiratory failure with hypoxia (13) Suspected COVID-19 virus infection Elfego Payne Nov 15, 2019 15:52
[2019-11-15 16:00] VITALS: BP 119/70
[2019-11-15] MEDS ORDERED: Acetaminophen 650mg/20.3ml GT PRN (16:00)
--- NOTE | 2019-11-15 16:46 | Cardiology Progress Note ---
Assessment/Plan Assessment/Plan 1. covid 19 pneumonia 2. History of cerebrovascular accident. 3. History of carotid occlusion. 4. Bilateral infiltrates and pneumonia. 5. Aphasia. 6. Diabetes mellitus. 7. Hyponatremia. 8. Renal insufficiency 9. C diff+ 10. 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 sinus tachy cxr form 11/11 personl reviewed looked ok not make sense why he is on 15 liter may bne fir form repeating cxr consider venous duplex scanning as at risk of thrombosis with covid, try to taper oxygen Subjective Subjective not communicative Objective Last 24 Hour Vital Signs Date Time Temp Pulse Resp B/P (MAP) Pulse Ox O2 Delivery O2 Flow Rate FiO2 11/15/19 16:00 108 11/15/19 16:00 96.4 86 40 119/70 (86) 100 11/15/19 12:00 103 11/15/19 12:00 99.6 103 44 136/72 (93) 100 11/15/19 09:00 Non-Rebreather 15.0 11/15/19 08:00 97.9 98 40 134/72 (92) 100 11/15/19 08:00 104 11/15/19 04:00 94 11/15/19 04:00 98.8 72 21 115/74 (88) 97 11/15/19 00:00 102 11/15/19 00:00 99.0 78 21 110/62 (78) 95 11/14/19 21:00 Non-Rebreather 15.0 11/14/19 20:00 98.9 70 25 104/58 (73) 95 11/14/19 20:00 113 11/14/19 19:57 97 Non-Rebreather 15.0 100 Intake and Output 11/14/19 11/15/19 18:59 06:59 Intake Total 1380 ml Output Total 475 ml 500 ml Balance -475 ml 880 ml Free Water 600 ml Tube Feeding 780 ml Output Urine Total 475 ml 500 ml # Voids 1 # Bowel Movements 4 Laboratory Tests Test 11/15/19 06:10 White Blood Count 34.8 K/UL (4.8-10.8) *H Red Blood Count 3.34 M/UL (4.70-6.10) L Hemoglobin 9.5 G/DL (14.2-18.0) L Hematocrit 27.8 % (42.0-52.0) L Mean Corpuscular Volume 83 FL (80-99) Mean Corpuscular Hemoglobin 28.4 PG (27.0-31.0) Mean Corpuscular Hemoglobin Concent 34.2 G/DL (32.0-36.0) Red Cell Distribution Width 13.1 % (11.6-14.8) Platelet Count 646 K/UL (150-450) H Mean Platelet Volume 5.9 FL (6.5-10.1) L Neutrophils (%) (Auto) % (45.0-75.0) Lymphocytes (%) (Auto) % (20.0-45.0) Monocytes (%) (Auto) % (1.0-10.0) Eosinophils (%) (Auto) % (0.0-3.0) Basophils (%) (Auto) % (0.0-2.0) Differential Total Cells Counted 100 Neutrophils % (Manual) 87 % (45-75) H Lymphocytes % (Manual) 8 % (20-45) L Monocytes % (Manual) 5 % (1-10) Eosinophils % (Manual) 0 % (0-3) Basophils % (Manual) 0 % (0-2) Band Neutrophils 0 % (0-8) Platelet Estimate Increased H Platelet Morphology Normal Sodium Level 146 MMOL/L (136-145) H Potassium Level 5.3 MMOL/L (3.5-5.1) H Chloride Level 112 MMOL/L (98-107) H Carbon Dioxide Level 27 MMOL/L (21-32) Anion Gap 8 mmol/L (5-15) Blood Urea Nitrogen 60 mg/dL (7-18) H Creatinine 1.4 MG/DL (0.55-1.30) H Estimat Glomerular Filtration Rate 49.8 mL/min (>60) Glucose Level 181 MG/DL (74-106) H Calcium Level 7.7 MG/DL (8.5-10.1) L Total Bilirubin 0.2 MG/DL (0.2-1.0) Direct Bilirubin < 0.1 MG/DL (0.0-0.3) Aspartate Amino Transf (AST/SGOT) 31 U/L (15-37) Alanine Aminotransferase (ALT/SGPT) 30 U/L (12-78) Alkaline Phosphatase 97 U/L (46-116) Pro-B-Type Natriuretic Peptide 2350 pg/mL (0-125) H Total Protein 5.8 G/DL (6.4-8.2) L Albumin 1.3 G/DL (3.4-5.0) L Globulin 4.5 g/dL Albumin/Globulin Ratio 0.3 (1.0-2.7) L Random Vancomycin Level 19.2 ug/mL Objective exam not performed as pt with covid now confirmed per rn stillwith sig diarrhea has a rectal tube which leak , is still on NRB mask they have not tired to titrate toelarting feed per rn no sig cough Chris Melgar MD Nov 15, 2019 16:46
[2019-11-15] MEDS: Maintenance Dose:Remdesivir 100mg/NS 230ml x 4 Doses IV SCH (17:31)
[2019-11-15 20:00] VITALS: BP 123/67
[2019-11-16] VITALS: BP 130/74
--- NOTE | 2019-11-16 00:45 | Progress Note ---
DATE: 11/15/2019 SUBJECTIVE: The patient is confused, less agitated than previous encounter, compliant. MENTAL STATUS EXAMINATION: The patient is alert, disoriented. Mood is anxious. Affect is flat. Thought process, there is a paucity of thought content. Thought content, no suicidal or homicidal ideation. Cognition is impaired. Insight and judgment impaired. ASSESSMENT: 1. Acute encephalopathy. 2. Major depressive disorder. PLAN: 1. Bilateral soft restraints. 2. Remeron. 3. Discussed with the nurse. Jessica Quinonez M.D. DR: Natalia JOB#: [id number] CC:
[2019-11-16] MEDS: Cefepime HCl 1 GM in D5W 55 ML IV SCH (02:30)
[2019-11-16 04:00] VITALS: BP 105/68
[2019-11-16 07:53] LABS: HEMATOCRIT 29.5 % (42.0-52.0); HEMOGLOBIN 9.8 G/DL (14.2-18.0); MEAN CORPUSCULAR VOLUME 83 FL (80-99); PLATELET COUNT 672 K/UL (150-450); RED BLOOD COUNT 3.56 M/UL (4.70-6.10); RED CELL DISTRIBUTION WIDTH 12.9 % (11.6-14.8)
[2019-11-16 07:55] LABS: WHITE BLOOD COUNT 31.2 K/UL (4.8-10.8)
[2019-11-16 07:59] VITALS: BP 130/64
[2019-11-16 08:14] LABS: PHOSPHORUS 5.1 MG/DL (2.5-4.9)
[2019-11-16 08:17] LABS: ALANINE AMINOTRANSFERASE 15 U/L (12-78); ALBUMIN 1.2 G/DL (3.4-5.0); ALBUMIN/GLOBULIN RATIO 0.3 (1.0-2.7); ALKALINE PHOSPHATASE 86 U/L (46-116); ANION GAP 7 mmol/L (5-15); ASPARTATE AMINO TRANSFERASE 12 U/L (15-37); BILIRUBIN,DIRECT < 0.1 MG/DL (0.0-0.3); BILIRUBIN,TOTAL 0.3 MG/DL (0.2-1.0); BLOOD UREA NITROGEN 66 mg/dL (7-18); CALCIUM 8.2 MG/DL (8.5-10.1); CARBON DIOXIDE 27 MMOL/L (21-32); CHLORIDE 115 MMOL/L (98-107); CREATININE 1.5 MG/DL (0.55-1.30); POTASSIUM 5.2 MMOL/L (3.5-5.1); SODIUM 149 MMOL/L (136-145)
[2019-11-16] MEDS: Tamsulosin 0.4mg cap ORAL SCH (09:34)
[2019-11-16] MEDS: Ascorbic Acid 500mg tab GT SCH (09:34)
[2019-11-16] MEDS: Heparin 5000 units/ml inj SUBQ SCH ×2 (09:35→22:32)
[2019-11-16] MEDS: Vancomycin oral 125mg/2.5ml ORAL SCH ×4 (09:35→22:30)
--- NOTE | 2019-11-16 10:22 | General Progress Note ---
Assessment/Plan Problem List: (1) DM (diabetes mellitus) ICD Codes: E11.9 - Type 2 diabetes mellitus without complications SNOMED: 92017125 (2) ARF (acute renal failure) ICD Codes: N17.9 - Acute kidney failure, unspecified SNOMED: 74693374 Qualifiers: Qualified Codes: N17.9 - Acute kidney failure, unspecified (3) Aspiration pneumonia ICD Codes: J69.0 - Pneumonitis due to inhalation of food and vomit SNOMED: 077097905 (4) UTI (urinary tract infection) ICD Codes: N39.0 - Urinary tract infection, site not specified SNOMED: 22394497 Qualifiers: Qualified Codes: N30.00 - Acute cystitis without hematuria (5) Hypertension ICD Codes: I10 - Essential (primary) hypertension SNOMED: 26692623 (6) Anemia ICD Codes: D64.9 - Anemia, unspecified SNOMED: 747079333 Qualifiers: Qualified Codes: D64.9 - Anemia, unspecified (7) Respiratory failure with hypoxia ICD Codes: J96.91 - Respiratory failure, unspecified with hypoxia SNOMED: 44818727133873088 Qualifiers: Qualified Codes: J96.01 - Acute respiratory failure with hypoxia (8) Suspected COVID-19 virus infection ICD Codes: Z20.828 - Contact with and (suspected) exposure to other viral communicable diseases SNOMED: 034538396 Status: unchanged Assessment/Plan: o2 pulm tx abx pt diet cbc bmp am Subjective Constitutional: Reports: weakness Allergies: Coded Allergies: No Known Allergies (Unverified , 09/16/19) All Systems: reviewed and negative except above Subjective o2mask sleepy calm Objective Last 24 Hour Vital Signs Date Time Temp Pulse Resp B/P (MAP) Pulse Ox O2 Delivery O2 Flow Rate FiO2 11/16/19 07:59 96.7 102 20 130/64 (86) 100 11/16/19 04:00 97.4 108 20 105/68 (80) 100 11/16/19 04:00 107 11/16/19 00:00 98.1 110 18 130/74 (92) 98 11/16/19 00:00 113 11/15/19 21:00 Non-Rebreather 15.0 11/15/19 20:00 97.5 108 20 123/67 (85) 99 11/15/19 20:00 114 6/2/20 19:39 98 Non-Rebreather 15.0 100 11/15/19 16:00 108 11/15/19 16:00 96.4 86 40 119/70 (86) 100 11/15/19 12:00 103 11/15/19 12:00 99.6 103 44 136/72 (93) 100 Intake and Output 11/15/19 11/16/19 19:00 07:00 Output Total 350 ml 600 ml Balance -350 ml -600 ml Output Urine Total 350 ml 600 ml # Voids 1 # Bowel Movements 2 Laboratory Tests 11/16/19 07:45: White Blood Count 31.2*H, Red Blood Count 3.56L, Hemoglobin 9.8L, Hematocrit 29.5L, Mean Corpuscular Volume 83, Mean Corpuscular Hemoglobin 27.6, Mean Corpuscular Hemoglobin Concent 33.4, Red Cell Distribution Width 12.9, Platelet Count 672H, Mean Platelet Volume 5.7L, Neutrophils (%) (Auto) , Lymphocytes (%) (Auto) , Monocytes (%) (Auto) , Eosinophils (%) (Auto) , Basophils (%) (Auto) , Neutrophils % (Manual) [Pending], Lymphocytes % (Manual) [Pending], Platelet Estimate [Pending], Platelet Morphology [Pending], Sodium Level 149H, Potassium Level 5.2H, Chloride Level 115H, Carbon Dioxide Level 27, Anion Gap 7, Blood Urea Nitrogen 66H, Creatinine 1.5H, Estimat Glomerular Filtration Rate 46.0, Glucose Level 174H, Uric Acid 9.5H, Calcium Level 8.2L, Phosphorus Level 5.1H, Magnesium Level 3.3H, Total Bilirubin 0.3, Direct Bilirubin < 0.1, Aspartate Amino Transf (AST/SGOT) 12L, Alanine Aminotransferase (ALT/SGPT) 15, Alkaline Phosphatase 86, Pro-B-Type Natriuretic Peptide 1918H, Total Protein 5.8L, Albumin 1.2L, Globulin 4.6, Albumin/Globulin Ratio 0.3L, Random Vancomycin Level 28.9 Height (Feet): 6 Height (Inches): 0.00 Weight (Pounds): 130 General Appearance: lethargic EENT: normal ENT inspection Neck: normal alignment Cardiovascular: normal rate, regular rhythm Respiratory/Chest: no respiratory distress, no accessory muscle use Extremities: normal inspection Skin: normal pigmentation Juan Singh DO Nov 16, 2019 10:22
--- NOTE | 2019-11-16 11:18 | Diagnostic Imaging Report ---
Indication: Dyspnea Technique: One view of the chest Comparison: none Findings: There are increasing basilar opacities on the left noted. The heart size is normal. The pleural spaces are clear. Impression: New/increased infiltrates at the left lateral lung base
--- NOTE | 2019-11-16 11:35 | Hematology/Onc Progress Note ---
Assessment/Plan Assessment/Plan Assessment and Recs # Leukocytosis/elevated white blood cell count, unspecified likely related to underlying stress reaction, smoking v more likely infection, in this case with pna and COVID19++++++++ --> have reviewed peripheral smear and bandemia/neutrophilia noted --> continue antibiotics if they have been started by ID team --> monitor for resolution --> wbc 35k-->31.2 --> abx/antivral: remdesivir/vanc/cefepime # Thrombocytosis - if plt count >400k, most usually is a reactive process and will improve once exacerbant removed as well --> in this case due to underlying infection --> plt trend 646k-->672 # Anemia of chronic disease due to underlying chronic medical issues, multifactorial v Gi bleed --> Anemia workup has been ordered, rule out gi bleed -> ferritin 1339 --> No evidence of hemolysis is noted, peripheral smear has been reviewed. --> Hgb goal >7. Transfuse prn. --> Epogen or iron at this time is not particularly indicated --> Medications have been reviewed --> low threshold for gi evaluation in case has occult + --> bone marrow biopsy is not indicated given the other more likely causes --> hgb 9.5-->9.8 # Acute hypoxic resp failure- on NRB 15L- 2ry to COVID19 --> per id and pulm recs --> breathing treatments and rep cxr --> 11/15 cxr: New/increased infiltrates at the left lateral lung base # UTI c/w bacteremia --> abx per id # Cdiff colitis # MONICA, improving # Deep tissue injury (sacrum, L heel) # HTN # Dm2 # MDD # Dysphagia s/p GT # malnutrition # decubitus ulcer # non verbal # 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 Greatly appreciate consultation. Subjective Allergies: Coded Allergies: No Known Allergies (Unverified , 09/16/19) Subjective 11/15 tele, no acute events, cxr and labs reviewed, nrb 15l, remdesivir Objective Objective Current Medications Medications (Trade) Dose Ordered Sig/Leonor Route PRN Reason Start Time Stop Time Status Last Admin Dose Admin Acetaminophen (Tylenol) 650 mg Q4H PRN GT fever 11/15/19 16:00 12/11/19 08:59 Ascorbic Acid (Vitamin C) 500 mg DAILY GT 11/16/19 09:00 12/16/19 08:59 11/16/19 09:34 Cefepime HCl 1 gm/ Dextrose 55 ml @ 110 mls/hr Q24H IV 11/12/19 03:00 11/19/19 02:59 11/16/19 02:30 Heparin Sodium (Porcine) (Heparin 5000 units/ml) 5,000 units EVERY 12 HOURS SUBQ 11/11/19 09:00 12/26/19 08:59 11/16/19 09:35 Metronidazole 100 ml @ 100 mls/hr Q8HR IVPB 11/15/19 14:00 11/22/19 13:59 11/16/19 05:31 Mirtazapine (Remeron) 7.5 mg BEDTIME GT 11/11/19 21:00 02/09/20 20:59 11/15/19 21:29 Nitroglycerin (Ntg) 0.4 mg Q5M PRN SL Prn Chest Pain 11/11/19 09:00 12/11/19 08:59 Ondansetron HCl (Zofran) 4 mg Q6H PRN IVP Nausea & Vomiting 11/11/19 09:00 12/11/19 08:59 Polyethylene Glycol (Miralax) 17 gm DAILYPRN PRN ORAL Constipation 11/11/19 09:00 12/11/19 08:59 Promethazine HCl/ Codeine (Phenergan with Codeine) 5 ml Q4H PRN ORAL For Cough 11/11/19 09:00 12/11/19 08:59 Remdesivir 100 mg/ Sodium Chloride 250 ml @ 250 mls/hr Q24H IV 11/15/19 18:00 11/18/19 18:59 11/15/19 17:31 Tamsulosin HCl (Flomax) 0.4 mg DAILY ORAL 11/11/19 09:00 12/11/19 08:59 11/16/19 09:34 Temazepam (Restoril) 15 mg HSPRN PRN ORAL Insomnia 11/11/19 09:00 11/18/19 08:59 Vancomycin HCl (Firvanq) 125 mg FOUR TIMES A DAY ORAL 11/13/19 15:00 11/20/19 14:59 11/16/19 09:35 Vancomycin HCl (Vanco pharmacy to dose) 1 ea DAILY PRN MISC Per rx protocol 11/11/19 09:00 12/11/19 08:59 Last 24 Hour Vital Signs Date Time Temp Pulse Resp B/P (MAP) Pulse Ox O2 Delivery O2 Flow Rate FiO2 11/16/19 09:00 Non-Rebreather 15.0 11/16/19 08:00 105 11/16/19 07:59 96.7 102 20 130/64 (86) 100 11/16/19 04:00 97.4 108 20 105/68 (80) 100 11/16/19 04:00 107 11/16/19 00:00 98.1 110 18 130/74 (92) 98 11/16/19 00:00 113 11/15/19 21:00 Non-Rebreather 15.0 11/15/19 20:00 97.5 108 20 123/67 (85) 99 11/15/19 20:00 114 11/15/19 19:39 98 Non-Rebreather 15.0 100 11/15/19 16:00 108 11/15/19 16:00 96.4 86 40 119/70 (86) 100 11/15/19 12:00 103 11/15/19 12:00 99.6 103 44 136/72 (93) 100 11/15/19 09:00 Non-Rebreather 15.0 11/15/19 08:00 97.9 98 40 134/72 (92) 100 11/15/19 08:00 104 11/15/19 04:00 94 11/15/19 04:00 98.8 72 21 115/74 (88) 97 11/15/19 00:00 102 11/15/19 00:00 99.0 78 21 110/62 (78) 95 11/14/19 21:00 Non-Rebreather 15.0 11/14/19 20:00 98.9 70 25 104/58 (73) 95 11/14/19 20:00 113 11/14/19 19:57 97 Non-Rebreather 15.0 100 11/14/19 16:00 130 11/14/19 16:00 97.5 93 45 139/71 (93) 97 11/14/19 12:00 88 11/14/19 12:00 97.9 88 40 130/67 (88) 100 Intake and Output 11/15/19 11/16/19 19:00 07:00 Output Total 350 ml 600 ml Balance -350 ml -600 ml Output Urine Total 350 ml 600 ml # Voids 1 # Bowel Movements 2 Labs Test 11/14/19 05:58 11/14/19 11:39 11/14/19 12:16 11/15/19 06:10 White Blood Count 29.8 K/UL (4.8-10.8) 34.8 K/UL (4.8-10.8) Red Blood Count 3.36 M/UL (4.70-6.10) 3.34 M/UL (4.70-6.10) Hemoglobin 9.6 G/DL (14.2-18.0) 9.5 G/DL (14.2-18.0) Hematocrit 28.4 % (42.0-52.0) 27.8 % (42.0-52.0) Mean Corpuscular Volume 84 FL (80-99) 83 FL (80-99) Mean Corpuscular Hemoglobin 28.7 PG (27.0-31.0) 28.4 PG (27.0-31.0) Mean Corpuscular Hemoglobin Concent 34.0 G/DL (32.0-36.0) 34.2 G/DL (32.0-36.0) Red Cell Distribution Width 13.0 % (11.6-14.8) 13.1 % (11.6-14.8) Platelet Count 570 K/UL (150-450) 646 K/UL (150-450) Mean Platelet Volume 5.7 FL (6.5-10.1) 5.9 FL (6.5-10.1) Neutrophils (%) (Auto) % (45.0-75.0) % (45.0-75.0) Lymphocytes (%) (Auto) % (20.0-45.0) % (20.0-45.0) Monocytes (%) (Auto) % (1.0-10.0) % (1.0-10.0) Eosinophils (%) (Auto) % (0.0-3.0) % (0.0-3.0) Basophils (%) (Auto) % (0.0-2.0) % (0.0-2.0) Differential Total Cells Counted 100 100 Neutrophils % (Manual) 89 % (45-75) 87 % (45-75) Lymphocytes % (Manual) 7 % (20-45) 8 % (20-45) Monocytes % (Manual) 4 % (1-10) 5 % (1-10) Eosinophils % (Manual) 0 % (0-3) 0 % (0-3) Basophils % (Manual) 0 % (0-2) 0 % (0-2) Band Neutrophils 0 % (0-8) 0 % (0-8) Platelet Estimate Increased Increased Platelet Morphology Normal Normal Hypochromasia 1+ Sodium Level 146 MMOL/L (136-145) 146 MMOL/L (136-145) Potassium Level 4.9 MMOL/L (3.5-5.1) 5.3 MMOL/L (3.5-5.1) Chloride Level 112 MMOL/L (98-107) 112 MMOL/L (98-107) Carbon Dioxide Level 25 MMOL/L (21-32) 27 MMOL/L (21-32) Anion Gap 9 mmol/L (5-15) 8 mmol/L (5-15) Blood Urea Nitrogen 58 mg/dL (7-18) 60 mg/dL (7-18) Creatinine 1.5 MG/DL (0.55-1.30) 1.4 MG/DL (0.55-1.30) Estimat Glomerular Filtration Rate 46.0 mL/min (>60) 49.8 mL/min (>60) Glucose Level 182 MG/DL (74-106) 181 MG/DL (74-106) Calcium Level 7.8 MG/DL (8.5-10.1) 7.7 MG/DL (8.5-10.1) Arterial Blood pH 7.448 (7.350-7.450) Arterial Blood Partial Pressure CO2 35.6 mmHg (35.0-45.0) Arterial Blood Partial Pressure O2 270.5 mmHg (75.0-100.0) Arterial Blood HCO3 24.1 mmol/L (22.0-26.0) Arterial Blood Oxygen Saturation 99.0 % (95-100) Arterial Blood Base Excess 0.3 (-2-2) Michael Test Positive Vancomycin Level Trough 23.4 ug/mL (5.0-12.0) Total Bilirubin 0.2 MG/DL (0.2-1.0) Direct Bilirubin < 0.1 MG/DL (0.0-0.3) Aspartate Amino Transf (AST/SGOT) 31 U/L (15-37) Alanine Aminotransferase (ALT/SGPT) 30 U/L (12-78) Alkaline Phosphatase 97 U/L (46-116) Pro-B-Type Natriuretic Peptide 2350 pg/mL (0-125) Total Protein 5.8 G/DL (6.4-8.2) Albumin 1.3 G/DL (3.4-5.0) Globulin 4.5 g/dL Albumin/Globulin Ratio 0.3 (1.0-2.7) Random Vancomycin Level 19.2 ug/mL Test 11/16/19 07:45 White Blood Count 31.2 K/UL (4.8-10.8) Red Blood Count 3.56 M/UL (4.70-6.10) Hemoglobin 9.8 G/DL (14.2-18.0) Hematocrit 29.5 % (42.0-52.0) Mean Corpuscular Volume 83 FL (80-99) Mean Corpuscular Hemoglobin 27.6 PG (27.0-31.0) Mean Corpuscular Hemoglobin Concent 33.4 G/DL (32.0-36.0) Red Cell Distribution Width 12.9 % (11.6-14.8) Platelet Count 672 K/UL (150-450) Mean Platelet Volume 5.7 FL (6.5-10.1) Neutrophils (%) (Auto) % (45.0-75.0) Lymphocytes (%) (Auto) % (20.0-45.0) Monocytes (%) (Auto) % (1.0-10.0) Eosinophils (%) (Auto) % (0.0-3.0) Basophils (%) (Auto) % (0.0-2.0) Differential Total Cells Counted 100 Neutrophils % (Manual) 74 % (45-75) Lymphocytes % (Manual) 6 % (20-45) Monocytes % (Manual) 2 % (1-10) Eosinophils % (Manual) 0 % (0-3) Basophils % (Manual) 0 % (0-2) Metamyelocytes % 2 % (0-0) Myelocytes % 5 % (0-0) Band Neutrophils 11 % (0-8) Platelet Estimate Increased Platelet Morphology Normal Hypochromasia 1+ Sodium Level 149 MMOL/L (136-145) Potassium Level 5.2 MMOL/L (3.5-5.1) Chloride Level 115 MMOL/L (98-107) Carbon Dioxide Level 27 MMOL/L (21-32) Anion Gap 7 mmol/L (5-15) Blood Urea Nitrogen 66 mg/dL (7-18) Creatinine 1.5 MG/DL (0.55-1.30) Estimat Glomerular Filtration Rate 46.0 mL/min (>60) Glucose Level 174 MG/DL (74-106) Uric Acid 9.5 MG/DL (2.6-7.2) Calcium Level 8.2 MG/DL (8.5-10.1) Phosphorus Level 5.1 MG/DL (2.5-4.9) Magnesium Level 3.3 MG/DL (1.8-2.4) Total Bilirubin 0.3 MG/DL (0.2-1.0) Direct Bilirubin < 0.1 MG/DL (0.0-0.3) Aspartate Amino Transf (AST/SGOT) 12 U/L (15-37) Alanine Aminotransferase (ALT/SGPT) 15 U/L (12-78) Alkaline Phosphatase 86 U/L (46-116) Pro-B-Type Natriuretic Peptide 1918 pg/mL (0-125) Total Protein 5.8 G/DL (6.4-8.2) Albumin 1.2 G/DL (3.4-5.0) Globulin 4.6 g/dL Albumin/Globulin Ratio 0.3 (1.0-2.7) Random Vancomycin Level 28.9 ug/mL Height (Feet): 6 Height (Inches): 0.00 Weight (Pounds): 130 Objective PE General: alert, chronically Ill Heent: nc, at Neck: full range of motion, supple, no meningismus Respiratory: chest non-tender, decreased breath sounds, crackles Cardiovascular: no murmur, tachycardia Gastrointestinal: normal bowel sounds, non tender,+peg Musculoskeletal: back normal, normal range of motion, gait/station normal Neurologic: no pronator Deng Flowers MD Nov 16, 2019 11:35
--- NOTE | 2019-11-16 11:45 | Pulmonology Progress Note ---
Subjective ROS Limited/Unobtainable: No Constitutional: Reports: no symptoms HEENT: Repors: no symptoms Respiratory: Reports: no symptoms Allergies: Coded Allergies: No Known Allergies (Unverified , 09/16/19) All Systems: reviewed and negative except above Objective Last 24 Hour Vital Signs Date Time Temp Pulse Resp B/P (MAP) Pulse Ox O2 Delivery O2 Flow Rate FiO2 11/16/19 09:00 Non-Rebreather 15.0 11/16/19 08:00 105 11/16/19 07:59 96.7 102 20 130/64 (86) 100 11/16/19 04:00 97.4 108 20 105/68 (80) 100 11/16/19 04:00 107 11/16/19 00:00 98.1 110 18 130/74 (92) 98 11/16/19 00:00 113 11/15/19 21:00 Non-Rebreather 15.0 11/15/19 20:00 97.5 108 20 123/67 (85) 99 11/15/19 20:00 114 11/15/19 19:39 98 Non-Rebreather 15.0 100 11/15/19 16:00 108 11/15/19 16:00 96.4 86 40 119/70 (86) 100 11/15/19 12:00 103 11/15/19 12:00 99.6 103 44 136/72 (93) 100 Intake and Output 11/15/19 11/16/19 19:00 07:00 Output Total 350 ml 600 ml Balance -350 ml -600 ml Output Urine Total 350 ml 600 ml # Voids 1 # Bowel Movements 2 General Appearance: cachetic HEENT: normocephalic, atraumatic Respiratory: chest wall non-tender, rhonchi - left, rhonchi - right Cardiovascular: normal peripheral pulses, normal rate Abdomen: normal bowel sounds, soft, non tender Genitourinary: normal external genitalia Skin: no rash 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 normal Laboratory Tests 11/16/19 07:45: White Blood Count 31.2*H, Red Blood Count 3.56L, Hemoglobin 9.8L, Hematocrit 29.5L, Mean Corpuscular Volume 83, Mean Corpuscular Hemoglobin 27.6, Mean Corpuscular Hemoglobin Concent 33.4, Red Cell Distribution Width 12.9, Platelet Count 672H, Mean Platelet Volume 5.7L, Neutrophils (%) (Auto) , Lymphocytes (%) (Auto) , Monocytes (%) (Auto) , Eosinophils (%) (Auto) , Basophils (%) (Auto) , Differential Total Cells Counted 100, Neutrophils % (Manual) 74, Lymphocytes % ( Manual) 6L, Monocytes % (Manual) 2, Eosinophils % (Manual) 0, Basophils % ( Manual) 0, Metamyelocytes % 2H, Myelocytes % 5H, Band Neutrophils 11H, Platelet Estimate IncreasedH, Platelet Morphology Normal, Hypochromasia 1+, Sodium Level 149H, Potassium Level 5.2H, Chloride Level 115H, Carbon Dioxide Level 27, Anion Gap 7, Blood Urea Nitrogen 66H, Creatinine 1.5H, Estimat Glomerular Filtration Rate 46.0, Glucose Level 174H, Uric Acid 9.5H, Calcium Level 8.2L, Phosphorus Level 5.1H, Magnesium Level 3.3H, Total Bilirubin 0.3, Direct Bilirubin < 0.1, Aspartate Amino Transf (AST/SGOT) 12L, Alanine Aminotransferase (ALT/SGPT) 15, Alkaline Phosphatase 86, Pro-B-Type Natriuretic Peptide 1918H, Total Protein 5.8L, Albumin 1.2L, Globulin 4.6, Albumin/Globulin Ratio 0.3L, Random Vancomycin Level 28.9 Current Medications Medications (Trade) Dose Ordered Sig/Leonor Route PRN Reason Start Time Stop Time Status Last Admin Dose Admin Acetaminophen (Tylenol) 650 mg Q4H PRN GT fever 11/15/19 16:00 12/11/19 08:59 Ascorbic Acid (Vitamin C) 500 mg DAILY GT 11/16/19 09:00 12/16/19 08:59 11/16/19 09:34 Cefepime HCl 1 gm/ Dextrose 55 ml @ 110 mls/hr Q24H IV 11/12/19 03:00 11/19/19 02:59 11/16/19 02:30 Heparin Sodium (Porcine) (Heparin 5000 units/ml) 5,000 units EVERY 12 HOURS SUBQ 11/11/19 09:00 12/26/19 08:59 11/16/19 09:35 Metronidazole 100 ml @ 100 mls/hr Q8HR IVPB 11/15/19 14:00 11/22/19 13:59 11/16/19 05:31 Mirtazapine (Remeron) 7.5 mg BEDTIME GT 11/11/19 21:00 02/09/20 20:59 11/15/19 21:29 Nitroglycerin (Ntg) 0.4 mg Q5M PRN SL Prn Chest Pain 11/11/19 09:00 12/11/19 08:59 Ondansetron HCl (Zofran) 4 mg Q6H PRN IVP Nausea & Vomiting 11/11/19 09:00 12/11/19 08:59 Polyethylene Glycol (Miralax) 17 gm DAILYPRN PRN ORAL Constipation 11/11/19 09:00 12/11/19 08:59 Promethazine HCl/ Codeine (Phenergan with Codeine) 5 ml Q4H PRN ORAL For Cough 11/11/19 09:00 12/11/19 08:59 Remdesivir 100 mg/ Sodium Chloride 250 ml @ 250 mls/hr Q24H IV 11/15/19 18:00 11/18/19 18:59 11/15/19 17:31 Tamsulosin HCl (Flomax) 0.4 mg DAILY ORAL 11/11/19 09:00 12/11/19 08:59 11/16/19 09:34 Temazepam (Restoril) 15 mg HSPRN PRN ORAL Insomnia 11/11/19 09:00 11/18/19 08:59 Vancomycin HCl (Firvanq) 125 mg FOUR TIMES A DAY ORAL 11/13/19 15:00 11/20/19 14:59 11/16/19 09:35 Vancomycin HCl (Vanco pharmacy to dose) 1 ea DAILY PRN MISC Per rx protocol 11/11/19 09:00 12/11/19 08:59 Assessment/Plan Problems: (1) 2019 novel coronavirus disease (COVID-19) (2) Respiratory failure with hypoxia (3) Sepsis (4) Left carotid artery occlusion (5) Hypertension (6) DM (diabetes mellitus) (7) Left middle cerebral artery stroke Assessment/Plan wbc increasing gain, ? secondary to C-diff all cultures reviewed respiratory rate is high, but pt looks better than yesterday continue abx, Flagyl IV was added. sliding scale check electrolytes repeat cultures dvt prophylaxis. Ayana Ndiaye MD Nov 16, 2019 11:45
[2019-11-16 12:00] VITALS: BP 129/71
--- NOTE | 2019-11-16 13:34 | Nephrology Progress Note ---
Assessment/Plan Problem List: (1) ARF (acute renal failure) (2) Hyperkalemia (3) DM (diabetes mellitus) (4) Suspected COVID-19 virus infection (5) Sepsis Assessment his 74-year-old male with multiple Multiple medical problem presents with respiratory symptoms and diarrhea Renal failure most likely prerenal azotemia secondary to dehydration Hyperkalemia on presentation also secondary to dehydration Sepsis pneumonia hypoxia UTI Anemia History of hypertension History of diabetes mellitus Suspected COVID-19 virus infection Hypoalbuminemia Plan C. difficile positive COVID-19 detected Hydrate with half-normal saline, monitor electrolytes Will change the feeding to Nepro and monitor her potassium and other electrolytes Continue per ID Keep the blood pressure and blood sugar in check Monitor renal parameters Previously: Urine studies Monitor intake and output Cultures including stool for C. difficile Per orders Patient's CODE STATUS is full Subjective ROS Limited/Unobtainable: No Constitutional: Reports: malaise, weakness Objective Objective Last 24 Hour Vital Signs Date Time Temp Pulse Resp B/P (MAP) Pulse Ox O2 Delivery O2 Flow Rate FiO2 11/16/19 12:00 98.4 101 19 129/71 (90) 98 11/16/19 12:00 115 11/16/19 09:00 Non-Rebreather 15.0 11/16/19 08:00 105 11/16/19 07:59 96.7 102 20 130/64 (86) 100 11/16/19 04:00 97.4 108 20 105/68 (80) 100 11/16/19 04:00 107 11/16/19 00:00 98.1 110 18 130/74 (92) 98 11/16/19 00:00 113 11/15/19 21:00 Non-Rebreather 15.0 11/15/19 20:00 97.5 108 20 123/67 (85) 99 11/15/19 20:00 114 11/15/19 19:39 98 Non-Rebreather 15.0 100 11/15/19 16:00 108 11/15/19 16:00 96.4 86 40 119/70 (86) 100 Intake and Output 11/15/19 11/16/19 19:00 07:00 Output Total 350 ml 600 ml Balance -350 ml -600 ml Output Urine Total 350 ml 600 ml # Voids 1 # Bowel Movements 2 Laboratory Tests 11/16/19 07:45: White Blood Count 31.2*H, Red Blood Count 3.56L, Hemoglobin 9.8L, Hematocrit 29.5L, Mean Corpuscular Volume 83, Mean Corpuscular Hemoglobin 27.6, Mean Corpuscular Hemoglobin Concent 33.4, Red Cell Distribution Width 12.9, Platelet Count 672H, Mean Platelet Volume 5.7L, Neutrophils (%) (Auto) , Lymphocytes (%) (Auto) , Monocytes (%) (Auto) , Eosinophils (%) (Auto) , Basophils (%) (Auto) , Differential Total Cells Counted 100, Neutrophils % (Manual) 74, Lymphocytes % ( Manual) 6L, Monocytes % (Manual) 2, Eosinophils % (Manual) 0, Basophils % ( Manual) 0, Metamyelocytes % 2H, Myelocytes % 5H, Band Neutrophils 11H, Platelet Estimate IncreasedH, Platelet Morphology Normal, Hypochromasia 1+, Sodium Level 149H, Potassium Level 5.2H, Chloride Level 115H, Carbon Dioxide Level 27, Anion Gap 7, Blood Urea Nitrogen 66H, Creatinine 1.5H, Estimat Glomerular Filtration Rate 46.0, Glucose Level 174H, Uric Acid 9.5H, Calcium Level 8.2L, Phosphorus Level 5.1H, Magnesium Level 3.3H, Total Bilirubin 0.3, Direct Bilirubin < 0.1, Aspartate Amino Transf (AST/SGOT) 12L, Alanine Aminotransferase (ALT/SGPT) 15, Alkaline Phosphatase 86, Pro-B-Type Natriuretic Peptide 1918H, Total Protein 5.8L, Albumin 1.2L, Globulin 4.6, Albumin/Globulin Ratio 0.3L, Random Vancomycin Level 28.9 Height (Feet): 6 Height (Inches): 0.00 Weight (Pounds): 130 General Appearance: lethargic, mild distress Cardiovascular: tachycardia Respiratory/Chest: decreased breath sounds Abdomen: distended Ricardo Choudhary MD Nov 16, 2019 13:33
--- NOTE | 2019-11-16 14:37 | Infectious Diseases Prog Note ---
Assessment/Plan Assessment/Plan Assessment: Severe Sepsis Fever, SP Leukocytosis; worsened Pneumonia Acute hypoxic resp failure- on NRB 15L- 2ry to COVID19 and superimposed bacterial PNA -11/15 CXR: New/increased infiltrates at the left lateral lung base -11/11 CXR: Mild interstitial thickening is slightly improved. -11/10 CXR: Hazy basilar infiltrates left greater than right. sp cx PsA ([facility] S), P.mirabilis ([facility] S), S. aureus (S Vanco CARLOS 1, bactrim; R tetracycline ) -11/10 SARS-COV2 positive UTI c/w bacteremia -u/a wbc 5-10, nit neg, leuk +1, RBC TNCT; ucx 10-20k E. faecalis (S amp, vanco) -11/10 Bcx 2/ E. faecalis (S Vancomycin, AMP) CONS bacteremia- likely contaminant -11/10 Bcx 2/4 S. 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 Will continue to follow along with you. Discussed with RN and Lee Ann from Pharmacy Subjective Allergies: Coded Allergies: No Known Allergies (Unverified , 09/16/19) Subjective afebrile On NRB 15L wbc slightly improved repeat Bcx NTD Objective Vital Signs Last 24 Hour Vital Signs Date Time Temp Pulse Resp B/P (MAP) Pulse Ox O2 Delivery O2 Flow Rate FiO2 11/16/19 12:00 98.4 101 19 129/71 (90) 98 11/16/19 12:00 115 11/16/19 09:00 Non-Rebreather 15.0 11/16/19 08:00 105 11/16/19 07:59 96.7 102 20 130/64 (86) 100 11/16/19 04:00 97.4 108 20 105/68 (80) 100 11/16/19 04:00 107 11/16/19 00:00 98.1 110 18 130/74 (92) 98 11/16/19 00:00 113 11/15/19 21:00 Non-Rebreather 15.0 11/15/19 20:00 97.5 108 20 123/67 (85) 99 11/15/19 20:00 114 11/15/19 19:39 98 Non-Rebreather 15.0 100 11/15/19 16:00 108 11/15/19 16:00 96.4 86 40 119/70 (86) 100 Height (Feet): 6 Height (Inches): 0.00 Weight (Pounds): 130 Objective not examined to limit COVID19 exposure Laboratory Tests Test 11/16/19 07:45 White Blood Count 31.2 K/UL (4.8-10.8) *H Red Blood Count 3.56 M/UL (4.70-6.10) L Hemoglobin 9.8 G/DL (14.2-18.0) L Hematocrit 29.5 % (42.0-52.0) L Mean Corpuscular Volume 83 FL (80-99) Mean Corpuscular Hemoglobin 27.6 PG (27.0-31.0) Mean Corpuscular Hemoglobin Concent 33.4 G/DL (32.0-36.0) Red Cell Distribution Width 12.9 % (11.6-14.8) Platelet Count 672 K/UL (150-450) H Mean Platelet Volume 5.7 FL (6.5-10.1) L Neutrophils (%) (Auto) % (45.0-75.0) Lymphocytes (%) (Auto) % (20.0-45.0) Monocytes (%) (Auto) % (1.0-10.0) Eosinophils (%) (Auto) % (0.0-3.0) Basophils (%) (Auto) % (0.0-2.0) Differential Total Cells Counted 100 Neutrophils % (Manual) 74 % (45-75) Lymphocytes % (Manual) 6 % (20-45) L Monocytes % (Manual) 2 % (1-10) Eosinophils % (Manual) 0 % (0-3) Basophils % (Manual) 0 % (0-2) Metamyelocytes % 2 % (0-0) H Myelocytes % 5 % (0-0) H Band Neutrophils 11 % (0-8) H Platelet Estimate Increased H Platelet Morphology Normal Hypochromasia 1+ Sodium Level 149 MMOL/L (136-145) H Potassium Level 5.2 MMOL/L (3.5-5.1) H Chloride Level 115 MMOL/L (98-107) H Carbon Dioxide Level 27 MMOL/L (21-32) Anion Gap 7 mmol/L (5-15) Blood Urea Nitrogen 66 mg/dL (7-18) H Creatinine 1.5 MG/DL (0.55-1.30) H Estimat Glomerular Filtration Rate 46.0 mL/min (>60) Glucose Level 174 MG/DL (74-106) H Uric Acid 9.5 MG/DL (2.6-7.2) H Calcium Level 8.2 MG/DL (8.5-10.1) L Phosphorus Level 5.1 MG/DL (2.5-4.9) H Magnesium Level 3.3 MG/DL (1.8-2.4) H Total Bilirubin 0.3 MG/DL (0.2-1.0) Direct Bilirubin < 0.1 MG/DL (0.0-0.3) Aspartate Amino Transf (AST/SGOT) 12 U/L (15-37) L Alanine Aminotransferase (ALT/SGPT) 15 U/L (12-78) Alkaline Phosphatase 86 U/L (46-116) Pro-B-Type Natriuretic Peptide 1918 pg/mL (0-125) H Total Protein 5.8 G/DL (6.4-8.2) L Albumin 1.2 G/DL (3.4-5.0) L Globulin 4.6 g/dL Albumin/Globulin Ratio 0.3 (1.0-2.7) L Random Vancomycin Level 28.9 ug/mL Current Medications Medications (Trade) Dose Ordered Sig/Leonor Route PRN Reason Start Time Stop Time Status Last Admin Dose Admin Acetaminophen (Tylenol) 650 mg Q4H PRN GT fever 11/15/19 16:00 12/11/19 08:59 Ascorbic Acid (Vitamin C) 500 mg DAILY GT 11/16/19 09:00 12/16/19 08:59 11/16/19 09:34 Cefepime HCl 1 gm/ Dextrose 55 ml @ 110 mls/hr Q24H IV 11/12/19 03:00 11/19/19 02:59 11/16/19 02:30 Heparin Sodium (Porcine) (Heparin 5000 units/ml) 5,000 units EVERY 12 HOURS SUBQ 11/11/19 09:00 12/26/19 08:59 11/16/19 09:35 Metronidazole 100 ml @ 100 mls/hr Q8HR IVPB 11/15/19 14:00 11/22/19 13:59 11/16/19 13:34 Mirtazapine (Remeron) 7.5 mg BEDTIME GT 11/11/19 21:00 02/09/20 20:59 11/15/19 21:29 Nitroglycerin (Ntg) 0.4 mg Q5M PRN SL Prn Chest Pain 11/11/19 09:00 12/11/19 08:59 Ondansetron HCl (Zofran) 4 mg Q6H PRN IVP Nausea & Vomiting 11/11/19 09:00 12/11/19 08:59 Polyethylene Glycol (Miralax) 17 gm DAILYPRN PRN ORAL Constipation 11/11/19 09:00 12/11/19 08:59 Promethazine HCl/ Codeine (Phenergan with Codeine) 5 ml Q4H PRN ORAL For Cough 11/11/19 09:00 12/11/19 08:59 Remdesivir 100 mg/ Sodium Chloride 250 ml @ 250 mls/hr Q24H IV 11/15/19 18:00 11/18/19 18:59 11/15/19 17:31 Sodium Chloride 1,000 ml @ 75 mls/hr [id number] IV 11/16/19 14:30 12/16/19 14:29 11/16/19 13:45 Tamsulosin HCl (Flomax) 0.4 mg DAILY ORAL 11/11/19 09:00 12/11/19 08:59 11/16/19 09:34 Temazepam (Restoril) 15 mg HSPRN PRN ORAL Insomnia 11/11/19 09:00 11/18/19 08:59 Vancomycin HCl (Firvanq) 125 mg FOUR TIMES A DAY ORAL 11/13/19 15:00 11/20/19 14:59 11/16/19 13:34 Vancomycin HCl (Vanco pharmacy to dose) 1 ea DAILY PRN MISC Per rx protocol 11/11/19 09:00 12/11/19 08:59 Shannon Mark M.D. Nov 16, 2019 14:37
[2019-11-16 16:00] VITALS: BP 109/64
--- NOTE | 2019-11-16 17:22 | Cardiology Progress Note ---
Assessment/Plan Assessment/Plan 1. covid 19 pneumonia 2. History of cerebrovascular accident. 3. History of carotid occlusion. 4. Bilateral infiltrates and pneumonia. 5. Aphasia. 6. Diabetes mellitus. 7. Hyponatremia. 8. Renal insufficiency 9. C diff+ 10. GPC bacteremia wbc nwo lower may be related to c diff low grade fever resolved bp seems fine cr stable on free water na stable abx per ID now covid 19 detected from admission on resmeidivir d/w rn cardiac rehab sinus tachy cxr from today personl reviewed looks ok although radiologist think infiltrate increased not make sense why he is on 15 liter, i had asked to have oxygen tapered yest but nto sure if that was ever attmepted will reques again today consider venous duplex scanning as at risk of thrombosis with covid if oxygen requirement are sill high Subjective Subjective not communicative Objective Last 24 Hour Vital Signs Date Time Temp Pulse Resp B/P (MAP) Pulse Ox O2 Delivery O2 Flow Rate FiO2 11/16/19 16:00 98.4 106 18 109/64 (79) 100 11/16/19 12:00 98.4 101 19 129/71 (90) 98 11/16/19 12:00 115 11/16/19 09:00 Non-Rebreather 15.0 11/16/19 08:00 105 11/16/19 07:59 96.7 102 20 130/64 (86) 100 11/16/19 04:00 97.4 108 20 105/68 (80) 100 11/16/19 04:00 107 11/16/19 00:00 98.1 110 18 130/74 (92) 98 11/16/19 00:00 113 11/15/19 21:00 Non-Rebreather 15.0 11/15/19 20:00 97.5 108 20 123/67 (85) 99 11/15/19 20:00 114 11/15/19 19:39 98 Non-Rebreather 15.0 100 General Appearance: patient on isolation, isolation precautions Intake and Output 11/15/19 11/16/19 19:00 07:00 Output Total 350 ml 600 ml Balance -350 ml -600 ml Output Urine Total 350 ml 600 ml # Voids 1 # Bowel Movements 2 Laboratory Tests Test 11/16/19 07:45 White Blood Count 31.2 K/UL (4.8-10.8) *H Red Blood Count 3.56 M/UL (4.70-6.10) L Hemoglobin 9.8 G/DL (14.2-18.0) L Hematocrit 29.5 % (42.0-52.0) L Mean Corpuscular Volume 83 FL (80-99) Mean Corpuscular Hemoglobin 27.6 PG (27.0-31.0) Mean Corpuscular Hemoglobin Concent 33.4 G/DL (32.0-36.0) Red Cell Distribution Width 12.9 % (11.6-14.8) Platelet Count 672 K/UL (150-450) H Mean Platelet Volume 5.7 FL (6.5-10.1) L Neutrophils (%) (Auto) % (45.0-75.0) Lymphocytes (%) (Auto) % (20.0-45.0) Monocytes (%) (Auto) % (1.0-10.0) Eosinophils (%) (Auto) % (0.0-3.0) Basophils (%) (Auto) % (0.0-2.0) Differential Total Cells Counted 100 Neutrophils % (Manual) 74 % (45-75) Lymphocytes % (Manual) 6 % (20-45) L Monocytes % (Manual) 2 % (1-10) Eosinophils % (Manual) 0 % (0-3) Basophils % (Manual) 0 % (0-2) Metamyelocytes % 2 % (0-0) H Myelocytes % 5 % (0-0) H Band Neutrophils 11 % (0-8) H Platelet Estimate Increased H Platelet Morphology Normal Hypochromasia 1+ Sodium Level 149 MMOL/L (136-145) H Potassium Level 5.2 MMOL/L (3.5-5.1) H Chloride Level 115 MMOL/L (98-107) H Carbon Dioxide Level 27 MMOL/L (21-32) Anion Gap 7 mmol/L (5-15) Blood Urea Nitrogen 66 mg/dL (7-18) H Creatinine 1.5 MG/DL (0.55-1.30) H Estimat Glomerular Filtration Rate 46.0 mL/min (>60) Glucose Level 174 MG/DL (74-106) H Uric Acid 9.5 MG/DL (2.6-7.2) H Calcium Level 8.2 MG/DL (8.5-10.1) L Phosphorus Level 5.1 MG/DL (2.5-4.9) H Magnesium Level 3.3 MG/DL (1.8-2.4) H Total Bilirubin 0.3 MG/DL (0.2-1.0) Direct Bilirubin < 0.1 MG/DL (0.0-0.3) Aspartate Amino Transf (AST/SGOT) 12 U/L (15-37) L Alanine Aminotransferase (ALT/SGPT) 15 U/L (12-78) Alkaline Phosphatase 86 U/L (46-116) Pro-B-Type Natriuretic Peptide 1918 pg/mL (0-125) H Total Protein 5.8 G/DL (6.4-8.2) L Albumin 1.2 G/DL (3.4-5.0) L Globulin 4.6 g/dL Albumin/Globulin Ratio 0.3 (1.0-2.7) L Random Vancomycin Level 28.9 ug/mL Objective exam not performed as pt with covid now confirmed per r per rt usign accesory muscleof respitaion Chris Melgar MD Nov 16, 2019 17:22
[2019-11-16] MEDS: Maintenance Dose:Remdesivir 100mg/NS 230ml x 4 Doses IV SCH (18:11)
[2019-11-16 20:00] VITALS: BP 119/60
--- NOTE | 2019-11-16 20:14 | Surgery Progress Note ---
Surgery Progress Note Subjective Additional Comments leukocytosis anemia plts elevated Objective Last 24 Hour Vital Signs Date Time Temp Pulse Resp B/P (MAP) Pulse Ox O2 Delivery O2 Flow Rate FiO2 11/16/19 16:00 116 11/16/19 16:00 98.4 106 18 109/64 (79) 100 11/16/19 12:00 98.4 101 19 129/71 (90) 98 11/16/19 12:00 115 11/16/19 09:00 Non-Rebreather 15.0 11/16/19 08:00 105 11/16/19 07:59 96.7 102 20 130/64 (86) 100 11/16/19 04:00 97.4 108 20 105/68 (80) 100 11/16/19 04:00 107 11/16/19 00:00 98.1 110 18 130/74 (92) 98 11/16/19 00:00 113 11/15/19 21:00 Non-Rebreather 15.0 I&O Intake and Output 11/15/19 11/16/19 19:00 07:00 Intake Total 485 ml Output Total 850 ml 600 ml Balance -365 ml -600 ml Free Water 450 ml Tube Feeding 35 ml Output Urine Total 850 ml 600 ml # Voids 1 # Bowel Movements 2 Dressing: other Wound: other Drains: other Cardiovascular: RSR Respiratory: decreased breath sounds Abdomen: soft, non-tender, present bowel sounds Extremities: no tenderness, no cyanosis Laboratory Tests Test 11/16/19 07:45 White Blood Count 31.2 K/UL (4.8-10.8) *H Red Blood Count 3.56 M/UL (4.70-6.10) L Hemoglobin 9.8 G/DL (14.2-18.0) L Hematocrit 29.5 % (42.0-52.0) L Mean Corpuscular Volume 83 FL (80-99) Mean Corpuscular Hemoglobin 27.6 PG (27.0-31.0) Mean Corpuscular Hemoglobin Concent 33.4 G/DL (32.0-36.0) Red Cell Distribution Width 12.9 % (11.6-14.8) Platelet Count 672 K/UL (150-450) H Mean Platelet Volume 5.7 FL (6.5-10.1) L Neutrophils (%) (Auto) % (45.0-75.0) Lymphocytes (%) (Auto) % (20.0-45.0) Monocytes (%) (Auto) % (1.0-10.0) Eosinophils (%) (Auto) % (0.0-3.0) Basophils (%) (Auto) % (0.0-2.0) Differential Total Cells Counted 100 Neutrophils % (Manual) 74 % (45-75) Lymphocytes % (Manual) 6 % (20-45) L Monocytes % (Manual) 2 % (1-10) Eosinophils % (Manual) 0 % (0-3) Basophils % (Manual) 0 % (0-2) Metamyelocytes % 2 % (0-0) H Myelocytes % 5 % (0-0) H Band Neutrophils 11 % (0-8) H Platelet Estimate Increased H Platelet Morphology Normal Hypochromasia 1+ Sodium Level 149 MMOL/L (136-145) H Potassium Level 5.2 MMOL/L (3.5-5.1) H Chloride Level 115 MMOL/L (98-107) H Carbon Dioxide Level 27 MMOL/L (21-32) Anion Gap 7 mmol/L (5-15) Blood Urea Nitrogen 66 mg/dL (7-18) H Creatinine 1.5 MG/DL (0.55-1.30) H Estimat Glomerular Filtration Rate 46.0 mL/min (>60) Glucose Level 174 MG/DL (74-106) H Uric Acid 9.5 MG/DL (2.6-7.2) H Calcium Level 8.2 MG/DL (8.5-10.1) L Phosphorus Level 5.1 MG/DL (2.5-4.9) H Magnesium Level 3.3 MG/DL (1.8-2.4) H Total Bilirubin 0.3 MG/DL (0.2-1.0) Direct Bilirubin < 0.1 MG/DL (0.0-0.3) Aspartate Amino Transf (AST/SGOT) 12 U/L (15-37) L Alanine Aminotransferase (ALT/SGPT) 15 U/L (12-78) Alkaline Phosphatase 86 U/L (46-116) Pro-B-Type Natriuretic Peptide 1918 pg/mL (0-125) H Total Protein 5.8 G/DL (6.4-8.2) L Albumin 1.2 G/DL (3.4-5.0) L Globulin 4.6 g/dL Albumin/Globulin Ratio 0.3 (1.0-2.7) L Random Vancomycin Level 28.9 ug/mL Plan Problems: (1) Decubitus skin ulcer Assessment & Plan: Pt presented on admission with large sacral wound. Base of wound with areas that area purple and indurated sacrococcygeal,L sacrum/L gluteus,Scattered wounds with maceration L gluteus, one wound R sacrum with Biofilm, Surrounding non-blanching erythema entire buttocks. Small dry scabbed area noted to lumbar area. Unstageable Pressure Injury L heel. Base of wound is necrotic with surrounding non-blanching erythema. Tx.plan: Apply Moisture Barrier Paste to Buttocks. Cover Sacrum, R and L gluteal cheeks with Optifoam drsgs. Change every 3 days and prn. Apply Betadine to L heel. Cover with Optifoam drsg. Change every 3 days and prn. Reposition at least every 2hours or as tolerated. Place Pillow between knees. Off-load heels with Pillow. APM/BRUNILDA Mattress overlay. DAILY ESTIMATED NEEDS: Needs based on wt loss, underweight, wound/ 59kg 30-35 kcals/kg 4266-9952 total kcals 1.25-2 g protein/kg 74-118 g total protein 25-30 mL/kg 6514-9741 total fluid mLs NUTRITION DIAGNOSIS: * Increased kcal/prot intake needs R/T wound healing, suspected recent significant wt loss as evidenced by admitted w/ wounds @ lt posterior heel, R lower back, sacrum as per photos, pending eval, suspected significant wt loss of 40lbs/ 23.7% in <5 months, currently @ 81% IBW. . * Swallowing difficulty R/T dysphagia, h/o CVA as evidenced by PEG dependent. CURRENT TF:Glucerna 1.2 @65ml/hr x24 hrs ENTERAL NUTRITION RECOMMENDATIONS: NEPRO @45ml/hr x24 hrs to provide 1080ml, 1944 kcal, 87g pro, 785ml free H2O - Rec TF change for lower K content (1145mg in Nepro @45 vs 3151mg in Glucerna 1.2 @65) - Start at 25ml/hr advance as tolerated 10ml/hr q4-6 hrs - HOB over 30 degrees - Increased H20 flush to 200ml q4 hrs ADDITIONAL RECOMMENDATIONS: 1) Calibrated bedscale wt -> per SNF: HT=59" and FR=280cja (10/20/19) 2) Wound healing: Add Vit C 500mg QD/ or dosing per nephro Add Osbaldo BID via PEG w/ TF order 3) Monitor lytes: monitor K trend, need for renal TF (K 5.3, 5.5) 4) NISS w/ TF (h/o DM) 5) Monitor for diarrhea, rec probiotics (2) Sepsis Assessment & Plan: 74-year-old male multi-medical comorbidities admitted for respiratory deficiency currently tachypneic, leukocytosis, malnutrition, hypoalbuminemia. Complete physical exam performed identified areas of concerned given patient's comorbidities current condition high risk for deteriorationNo active infection identified from patient's wounds and likely respiratory nature. Chest x-ray reviewed. No acute surgical intervention planned at this time Preventive measures IV antibiotics per infectious disease Okay for feeding once stable respiratory Appreciate Pulm input c diff positive on vanco blood cx noted worsening leukocytosis ID abx noted heme input noted There are increasing basilar opacities on the left noted. The heart size is normal. The pleural spaces are clear. Impression: New/increased infiltrates at the left lateral lung base We will follow with recommendations thank you for let me participate patient's care (3) Left carotid artery occlusion (4) Left middle cerebral artery stroke (5) DM (diabetes mellitus) (6) ARF (acute renal failure) (7) Ventricular tachyarrhythmia (8) Aspiration pneumonia (9) Hypertension (10) UTI (urinary tract infection) (11) Anemia (12) Respiratory failure with hypoxia (13) Suspected COVID-19 virus infection Elfego Payne Nov 16, 2019 20:14
--- NOTE | 2019-11-16 23:15 | Psych Consult Progress Note ---
Psychiatry Progress Note Psychiatry Progress Note Medications Current Medications Medications (Trade) Dose Ordered Sig/Leonor Route PRN Reason Start Time Stop Time Status Last Admin Dose Admin Acetaminophen (Tylenol) 650 mg Q4H PRN GT fever 11/15/19 16:00 12/11/19 08:59 Ascorbic Acid (Vitamin C) 500 mg DAILY GT 11/16/19 09:00 12/16/19 08:59 11/16/19 09:34 Cefepime HCl 1 gm/ Dextrose 55 ml @ 110 mls/hr Q24H IV 11/12/19 03:00 11/19/19 02:59 11/16/19 02:30 Heparin Sodium (Porcine) (Heparin 5000 units/ml) 5,000 units EVERY 12 HOURS SUBQ 11/11/19 09:00 12/26/19 08:59 11/16/19 22:32 Metronidazole 100 ml @ 100 mls/hr Q8HR IVPB 11/15/19 14:00 11/22/19 13:59 11/16/19 22:31 Mirtazapine (Remeron) 7.5 mg BEDTIME GT 11/11/19 21:00 02/09/20 20:59 11/16/19 22:30 Nitroglycerin (Ntg) 0.4 mg Q5M PRN SL Prn Chest Pain 11/11/19 09:00 12/11/19 08:59 Ondansetron HCl (Zofran) 4 mg Q6H PRN IVP Nausea & Vomiting 11/11/19 09:00 12/11/19 08:59 Polyethylene Glycol (Miralax) 17 gm DAILYPRN PRN ORAL Constipation 11/11/19 09:00 12/11/19 08:59 Promethazine HCl/ Codeine (Phenergan with Codeine) 5 ml Q4H PRN ORAL For Cough 11/11/19 09:00 12/11/19 08:59 Remdesivir 100 mg/ Sodium Chloride 250 ml @ 250 mls/hr Q24H IV 11/15/19 18:00 11/18/19 18:59 11/16/19 18:11 Sodium Chloride 1,000 ml @ 75 mls/hr [id number] IV 11/16/19 14:30 12/16/19 14:29 11/16/19 13:45 Tamsulosin HCl (Flomax) 0.4 mg DAILY ORAL 11/11/19 09:00 12/11/19 08:59 11/16/19 09:34 Temazepam (Restoril) 15 mg HSPRN PRN ORAL Insomnia 11/11/19 09:00 11/18/19 08:59 Vancomycin HCl (Firvanq) 125 mg FOUR TIMES A DAY ORAL 11/13/19 15:00 11/20/19 14:59 11/16/19 22:30 Vancomycin HCl (Vanco pharmacy to dose) 1 ea DAILY PRN MISC Per rx protocol 11/11/19 09:00 12/11/19 08:59 Neurological/Psychiatric: Reports: anxiety, depressed, emotional problems Allergies: Coded Allergies: No Known Allergies (Unverified , 09/16/19) Objective Data Height (Feet): 6 Height (Inches): 0.00 Weight (Pounds): 130 Additional Comments: alert, disoriented. Mood is anxious. Affect is flat. Thought process, there is a paucity of thought content. Thought content, no suicidal or homicidal ideation. Cognition is impaired. Insight and judgment impaired. Assessment/Plan Status: stable, progressing, unchanged Assessment/Plan: ASSESSMENT: 1. Acute encephalopathy. 2. Major depressive disorder. PLAN: 1. Continue soft restraints. 2. Remeron 7.5 mg at bedtime. 3. Discussed with the nurse. Jessica Quinonez MD Nov 16, 2019 23:15
[2019-11-17] VITALS: BP 118/45
[2019-11-17] MEDS: Cefepime HCl 1 GM in D5W 55 ML IV SCH (03:00)
[2019-11-17 04:00] VITALS: BP 106/49
[2019-11-17 07:35] LABS: HEMATOCRIT 27.8 % (42.0-52.0); HEMOGLOBIN 9.8 G/DL (14.2-18.0); MEAN CORPUSCULAR VOLUME 82 FL (80-99); PLATELET COUNT 606 K/UL (150-450); RED BLOOD COUNT 3.39 M/UL (4.70-6.10); RED CELL DISTRIBUTION WIDTH 12.9 % (11.6-14.8); WHITE BLOOD COUNT 25.3 K/UL (4.8-10.8)
[2019-11-17 07:37] LABS: ALANINE AMINOTRANSFERASE 11 U/L (12-78); ALBUMIN 1.3 G/DL (3.4-5.0); ALBUMIN/GLOBULIN RATIO 0.3 (1.0-2.7); ALKALINE PHOSPHATASE 88 U/L (46-116); ANION GAP 12 mmol/L (5-15); ASPARTATE AMINO TRANSFERASE 15 U/L (15-37); BILIRUBIN,DIRECT < 0.1 MG/DL (0.0-0.3); BILIRUBIN,TOTAL 0.2 MG/DL (0.2-1.0); BLOOD UREA NITROGEN 58 mg/dL (7-18); CALCIUM 7.7 MG/DL (8.5-10.1); CARBON DIOXIDE 23 MMOL/L (21-32); CHLORIDE 114 MMOL/L (98-107); CREATININE 1.3 MG/DL (0.55-1.30); POTASSIUM 4.3 MMOL/L (3.5-5.1); SODIUM 149 MMOL/L (136-145)
[2019-11-17 08:00] VITALS: BP 105/48
[2019-11-17] MEDS: Ascorbic Acid 500mg tab GT SCH (09:43)
[2019-11-17] MEDS: Tamsulosin 0.4mg cap ORAL SCH (09:43)
[2019-11-17] MEDS: Vancomycin oral 125mg/2.5ml ORAL SCH ×4 (09:43→21:10)
[2019-11-17] MEDS: Heparin 5000 units/ml inj SUBQ SCH ×2 (09:44→21:11)
[2019-11-17 12:00] VITALS: BP 106/52
--- NOTE | 2019-11-17 12:24 | General Progress Note ---
Assessment/Plan Problem List: (1) DM (diabetes mellitus) ICD Codes: E11.9 - Type 2 diabetes mellitus without complications SNOMED: 03862294 (2) ARF (acute renal failure) ICD Codes: N17.9 - Acute kidney failure, unspecified SNOMED: 34344561 Qualifiers: Qualified Codes: N17.9 - Acute kidney failure, unspecified (3) Aspiration pneumonia ICD Codes: J69.0 - Pneumonitis due to inhalation of food and vomit SNOMED: 909715255 (4) UTI (urinary tract infection) ICD Codes: N39.0 - Urinary tract infection, site not specified SNOMED: 81467591 Qualifiers: Qualified Codes: N30.00 - Acute cystitis without hematuria (5) Hypertension ICD Codes: I10 - Essential (primary) hypertension SNOMED: 69002414 (6) Anemia ICD Codes: D64.9 - Anemia, unspecified SNOMED: 842827604 Qualifiers: Qualified Codes: D64.9 - Anemia, unspecified (7) Respiratory failure with hypoxia ICD Codes: J96.91 - Respiratory failure, unspecified with hypoxia SNOMED: 76518994981414622 Qualifiers: Qualified Codes: J96.01 - Acute respiratory failure with hypoxia (8) Suspected COVID-19 virus infection ICD Codes: Z20.828 - Contact with and (suspected) exposure to other viral communicable diseases SNOMED: 097482740 Status: stable, progressing, unchanged Assessment/Plan: o2 pulm tx abx pt diet cbc bmp am Subjective Constitutional: Reports: weakness Allergies: Coded Allergies: No Known Allergies (Unverified , 09/16/19) All Systems: reviewed and negative except above Subjective o2mask sleepy calm Objective Last 24 Hour Vital Signs Date Time Temp Pulse Resp B/P (MAP) Pulse Ox O2 Delivery O2 Flow Rate FiO2 11/17/19 09:00 Non-Rebreather 10.0 11/17/19 08:00 97.8 102 20 105/48 (67) 98 11/17/19 08:00 111 11/17/19 04:00 98.8 122 26 106/49 (68) 95 11/17/19 04:00 115 11/17/19 00:00 105 11/17/19 00:00 99.9 108 24 118/45 (69) 100 11/16/19 21:05 Non-Rebreather 10.0 11/16/19 21:00 96 Non-Rebreather 15.0 100 11/16/19 20:00 109 11/16/19 20:00 96.0 102 19 119/60 (79) 100 11/16/19 16:00 116 11/16/19 16:00 98.4 106 18 109/64 (79) 100 Intake and Output 11/16/19 11/17/19 19:00 07:00 Intake Total 485 ml Output Total 400 ml 1375 ml Balance 85 ml -1375 ml Free Water 450 ml Tube Feeding 35 ml Output Urine Total 400 ml 375 ml Stool Total 1000 ml Laboratory Tests 11/17/19 06:00: White Blood Count 25.3*H, Red Blood Count 3.39L, Hemoglobin 9.8L, Hematocrit 27.8L, Mean Corpuscular Volume 82, Mean Corpuscular Hemoglobin 28.9, Mean Corpuscular Hemoglobin Concent 35.3, Red Cell Distribution Width 12.9, Platelet Count 606H, Mean Platelet Volume 5.7L, Neutrophils (%) (Auto) , Lymphocytes (%) (Auto) , Monocytes (%) (Auto) , Eosinophils (%) (Auto) , Basophils (%) (Auto) , Differential Total Cells Counted 100, Neutrophils % (Manual) 77H, Lymphocytes % (Manual) 13L, Monocytes % (Manual) 2, Eosinophils % (Manual) 0, Basophils % ( Manual) 0, Myelocytes % 3H, Band Neutrophils 5, Platelet Estimate IncreasedH, Platelet Morphology Normal, Erythrocyte Sedimentation Rate 115H, Sodium Level 149H, Potassium Level 4.3, Chloride Level 114H, Carbon Dioxide Level 23, Anion Gap 12, Blood Urea Nitrogen 58H, Creatinine 1.3, Estimat Glomerular Filtration Rate 54.3, Glucose Level 159H, Uric Acid 9.2H, Calcium Level 7.7L, Phosphorus Level 3.0, Magnesium Level 2.7H, Total Bilirubin 0.2, Direct Bilirubin < 0.1, Aspartate Amino Transf (AST/SGOT) 15, Alanine Aminotransferase (ALT/SGPT) 11L, Alkaline Phosphatase 88, C-Reactive Protein, Quantitative 42.3H, Pro-B-Type Natriuretic Peptide 2018H, Total Protein 6.0L, Albumin 1.3L, Globulin 4.7, Albumin/Globulin Ratio 0.3L Height (Feet): 6 Height (Inches): 0.00 Weight (Pounds): 130 General Appearance: lethargic EENT: normal ENT inspection Neck: normal alignment Cardiovascular: normal rate, regular rhythm Respiratory/Chest: no respiratory distress, no accessory muscle use Extremities: normal inspection Skin: normal pigmentation Juan Singh DO Nov 17, 2019 12:24
--- NOTE | 2019-11-17 12:26 | Nephrology Progress Note ---
Assessment/Plan Problem List: (1) ARF (acute renal failure) (2) Hyperkalemia (3) DM (diabetes mellitus) (4) Suspected COVID-19 virus infection (5) Sepsis Assessment his 74-year-old male with multiple Multiple medical problem presents with respiratory symptoms and diarrhea Renal failure most likely prerenal azotemia secondary to dehydration Hyperkalemia on presentation also secondary to dehydration Sepsis pneumonia hypoxia UTI Anemia History of hypertension History of diabetes mellitus Suspected COVID-19 virus infection Hypoalbuminemia Plan C. difficile positive COVID-19 detected Hydrate with half-normal saline, serum creatinine now at its lowest today monitor electrolytes Will change the feeding to Nepro and monitor her potassium and other electrolytes Continue per ID Keep the blood pressure and blood sugar in check Monitor renal parameters Previously: Urine studies Monitor intake and output Cultures including stool for C. difficile Per orders Patient's CODE STATUS is full Subjective ROS Limited/Unobtainable: No Constitutional: Reports: malaise, weakness Objective Objective Last 24 Hour Vital Signs Date Time Temp Pulse Resp B/P (MAP) Pulse Ox O2 Delivery O2 Flow Rate FiO2 11/17/19 09:00 Non-Rebreather 10.0 11/17/19 08:00 97.8 102 20 105/48 (67) 98 11/17/19 08:00 111 11/17/19 04:00 98.8 122 26 106/49 (68) 95 11/17/19 04:00 115 11/17/19 00:00 105 11/17/19 00:00 99.9 108 24 118/45 (69) 100 11/16/19 21:05 Non-Rebreather 10.0 11/16/19 21:00 96 Non-Rebreather 15.0 100 11/16/19 20:00 109 11/16/19 20:00 96.0 102 19 119/60 (79) 100 11/16/19 16:00 116 11/16/19 16:00 98.4 106 18 109/64 (79) 100 Intake and Output 11/16/19 11/17/19 19:00 07:00 Intake Total 485 ml Output Total 400 ml 1375 ml Balance 85 ml -1375 ml Free Water 450 ml Tube Feeding 35 ml Output Urine Total 400 ml 375 ml Stool Total 1000 ml Laboratory Tests 11/17/19 06:00: White Blood Count 25.3*H, Red Blood Count 3.39L, Hemoglobin 9.8L, Hematocrit 27.8L, Mean Corpuscular Volume 82, Mean Corpuscular Hemoglobin 28.9, Mean Corpuscular Hemoglobin Concent 35.3, Red Cell Distribution Width 12.9, Platelet Count 606H, Mean Platelet Volume 5.7L, Neutrophils (%) (Auto) , Lymphocytes (%) (Auto) , Monocytes (%) (Auto) , Eosinophils (%) (Auto) , Basophils (%) (Auto) , Differential Total Cells Counted 100, Neutrophils % (Manual) 77H, Lymphocytes % (Manual) 13L, Monocytes % (Manual) 2, Eosinophils % (Manual) 0, Basophils % ( Manual) 0, Myelocytes % 3H, Band Neutrophils 5, Platelet Estimate IncreasedH, Platelet Morphology Normal, Erythrocyte Sedimentation Rate 115H, Sodium Level 149H, Potassium Level 4.3, Chloride Level 114H, Carbon Dioxide Level 23, Anion Gap 12, Blood Urea Nitrogen 58H, Creatinine 1.3, Estimat Glomerular Filtration Rate 54.3, Glucose Level 159H, Uric Acid 9.2H, Calcium Level 7.7L, Phosphorus Level 3.0, Magnesium Level 2.7H, Total Bilirubin 0.2, Direct Bilirubin < 0.1, Aspartate Amino Transf (AST/SGOT) 15, Alanine Aminotransferase (ALT/SGPT) 11L, Alkaline Phosphatase 88, C-Reactive Protein, Quantitative 42.3H, Pro-B-Type Natriuretic Peptide 2018H, Total Protein 6.0L, Albumin 1.3L, Globulin 4.7, Albumin/Globulin Ratio 0.3L Height (Feet): 6 Height (Inches): 0.00 Weight (Pounds): 130 General Appearance: mild distress, other - Tachypneic EENT: other - On nonrebreather mask Cardiovascular: tachycardia Respiratory/Chest: decreased breath sounds Abdomen: distended Objective No other change Ricardo Choudhary MD Nov 17, 2019 12:26
--- NOTE | 2019-11-17 13:03 | Pulmonology Progress Note ---
Subjective ROS Limited/Unobtainable: No Constitutional: Reports: no symptoms HEENT: Repors: no symptoms Respiratory: Reports: no symptoms Allergies: Coded Allergies: No Known Allergies (Unverified , 09/16/19) All Systems: reviewed and negative except above Objective Last 24 Hour Vital Signs Date Time Temp Pulse Resp B/P (MAP) Pulse Ox O2 Delivery O2 Flow Rate FiO2 11/17/19 12:00 98.2 20 106/52 (70) 98 11/17/19 12:00 119 11/17/19 09:00 Non-Rebreather 10.0 11/17/19 08:00 97.8 102 20 105/48 (67) 98 11/17/19 08:00 111 11/17/19 04:00 98.8 122 26 106/49 (68) 95 11/17/19 04:00 115 11/17/19 00:00 105 11/17/19 00:00 99.9 108 24 118/45 (69) 100 11/16/19 21:05 Non-Rebreather 10.0 11/16/19 21:00 96 Non-Rebreather 15.0 100 11/16/19 20:00 109 11/16/19 20:00 96.0 102 19 119/60 (79) 100 11/16/19 16:00 116 11/16/19 16:00 98.4 106 18 109/64 (79) 100 Intake and Output 11/16/19 11/17/19 19:00 07:00 Intake Total 485 ml Output Total 400 ml 1375 ml Balance 85 ml -1375 ml Free Water 450 ml Tube Feeding 35 ml Output Urine Total 400 ml 375 ml Stool Total 1000 ml General Appearance: cachetic HEENT: normocephalic, atraumatic Respiratory: chest wall non-tender, rhonchi - left, rhonchi - right Cardiovascular: normal peripheral pulses, normal rate Abdomen: normal bowel sounds, soft, non tender Genitourinary: normal external genitalia Skin: no rash 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 normal Lymphatic: no neck adenopathy Laboratory Tests 11/17/19 06:00: White Blood Count 25.3*H, Red Blood Count 3.39L, Hemoglobin 9.8L, Hematocrit 27.8L, Mean Corpuscular Volume 82, Mean Corpuscular Hemoglobin 28.9, Mean Corpuscular Hemoglobin Concent 35.3, Red Cell Distribution Width 12.9, Platelet Count 606H, Mean Platelet Volume 5.7L, Neutrophils (%) (Auto) , Lymphocytes (%) (Auto) , Monocytes (%) (Auto) , Eosinophils (%) (Auto) , Basophils (%) (Auto) , Differential Total Cells Counted 100, Neutrophils % (Manual) 77H, Lymphocytes % (Manual) 13L, Monocytes % (Manual) 2, Eosinophils % (Manual) 0, Basophils % ( Manual) 0, Myelocytes % 3H, Band Neutrophils 5, Platelet Estimate IncreasedH, Platelet Morphology Normal, Erythrocyte Sedimentation Rate 115H, Sodium Level 149H, Potassium Level 4.3, Chloride Level 114H, Carbon Dioxide Level 23, Anion Gap 12, Blood Urea Nitrogen 58H, Creatinine 1.3, Estimat Glomerular Filtration Rate 54.3, Glucose Level 159H, Uric Acid 9.2H, Calcium Level 7.7L, Phosphorus Level 3.0, Magnesium Level 2.7H, Total Bilirubin 0.2, Direct Bilirubin < 0.1, Aspartate Amino Transf (AST/SGOT) 15, Alanine Aminotransferase (ALT/SGPT) 11L, Alkaline Phosphatase 88, C-Reactive Protein, Quantitative 42.3H, Pro-B-Type Natriuretic Peptide 2018H, Total Protein 6.0L, Albumin 1.3L, Globulin 4.7, Albumin/Globulin Ratio 0.3L Current Medications Medications (Trade) Dose Ordered Sig/Leonor Route PRN Reason Start Time Stop Time Status Last Admin Dose Admin Acetaminophen (Tylenol) 650 mg Q4H PRN GT fever 11/15/19 16:00 12/11/19 08:59 Ascorbic Acid (Vitamin C) 500 mg DAILY GT 11/16/19 09:00 12/16/19 08:59 11/17/19 09:43 Cefepime HCl 1 gm/ Dextrose 55 ml @ 110 mls/hr Q24H IV 11/12/19 03:00 11/19/19 02:59 11/17/19 03:00 Heparin Sodium (Porcine) (Heparin 5000 units/ml) 5,000 units EVERY 12 HOURS SUBQ 11/11/19 09:00 12/26/19 08:59 11/17/19 09:44 Metronidazole 100 ml @ 100 mls/hr Q8HR IVPB 11/15/19 14:00 11/22/19 13:59 11/17/19 05:08 Mirtazapine (Remeron) 7.5 mg BEDTIME GT 11/11/19 21:00 02/09/20 20:59 11/16/19 22:30 Nitroglycerin (Ntg) 0.4 mg Q5M PRN SL Prn Chest Pain 11/11/19 09:00 12/11/19 08:59 Ondansetron HCl (Zofran) 4 mg Q6H PRN IVP Nausea & Vomiting 11/11/19 09:00 12/11/19 08:59 Polyethylene Glycol (Miralax) 17 gm DAILYPRN PRN ORAL Constipation 11/11/19 09:00 12/11/19 08:59 Promethazine HCl/ Codeine (Phenergan with Codeine) 5 ml Q4H PRN ORAL For Cough 11/11/19 09:00 12/11/19 08:59 Remdesivir 100 mg/ Sodium Chloride 250 ml @ 250 mls/hr Q24H IV 11/15/19 18:00 11/18/19 18:59 11/16/19 18:11 Sodium Chloride 1,000 ml @ 75 mls/hr [id number] IV 11/16/19 14:30 12/16/19 14:29 11/17/19 03:38 Tamsulosin HCl (Flomax) 0.4 mg DAILY ORAL 11/11/19 09:00 12/11/19 08:59 11/17/19 09:43 Temazepam (Restoril) 15 mg HSPRN PRN ORAL Insomnia 11/11/19 09:00 11/18/19 08:59 Vancomycin HCl (Firvanq) 125 mg FOUR TIMES A DAY ORAL 11/13/19 15:00 11/20/19 14:59 11/17/19 09:43 Vancomycin HCl (Vanco pharmacy to dose) 1 ea DAILY PRN MISC Per rx protocol 11/11/19 09:00 12/11/19 08:59 Assessment/Plan Problems: (1) 2019 novel coronavirus disease (COVID-19) (2) Respiratory failure with hypoxia (3) Sepsis (4) Left carotid artery occlusion (5) Hypertension (6) DM (diabetes mellitus) (7) Left middle cerebral artery stroke Assessment/Plan wbc decreasing now all cultures reviewed respiratory rate is still high, continue abx, Flagyl IV was added. sliding scale check electrolytes repeat cultures dvt prophylaxis. Ayana Ndiaye MD Nov 17, 2019 13:03
--- NOTE | 2019-11-17 14:45 | Hematology/Onc Progress Note ---
Assessment/Plan Assessment/Plan Assessment and Recs # Leukocytosis/elevated white blood cell count, unspecified likely related to underlying stress reaction, smoking v more likely infection, in this case with pna and COVID19++++++++ --> have reviewed peripheral smear and bandemia/neutrophilia noted --> continue antibiotics if they have been started by ID team --> monitor for resolution --> wbc 35k-->31.2-->25 --> abx/antivral: remdesivir/vanc/cefepime # Thrombocytosis - if plt count >400k, most usually is a reactive process and will improve once exacerbant removed as well --> in this case due to underlying infection --> plt trend 646k-->672 # Anemia of chronic disease due to underlying chronic medical issues, multifactorial v Gi bleed --> Anemia workup has been ordered, rule out gi bleed -> ferritin 1339 --> No evidence of hemolysis is noted, peripheral smear has been reviewed. --> Hgb goal >7. Transfuse prn. --> Epogen or iron at this time is not particularly indicated --> Medications have been reviewed --> low threshold for gi evaluation in case has occult + --> bone marrow biopsy is not indicated given the other more likely causes --> hgb 9.5-->9.8 --> ddimer remains elevated currently # Acute hypoxic resp failure- on NRB 15L- 2ry to COVID19 --> per id and pulm recs --> breathing treatments and rep cxr --> 11/15 cxr: New/increased infiltrates at the left lateral lung base # UTI c/w bacteremia --> abx per id # Cdiff colitis # MONICA, improving # Deep tissue injury (sacrum, L heel) # HTN # Dm2 # MDD # Dysphagia s/p GT # malnutrition # decubitus ulcer # non verbal # L MCA CVA 2ry to occlusion L ICA # [place] resident ([facility]) The timing of this note does not necessarily reflect the time of the patient was seen. Greatly appreciate consultation. Subjective HEENT: Denies: no symptoms, eye pain, blurred vision, tearing, double vision, ear pain, ear discharge, nose pain, nose congestion, throat pain, throat swelling, mouth pain, mouth swelling, other Gastrointestinal/Abdominal: Denies: no symptoms, abdomen distended, abdominal pain, black stools, tarry stools, blood in stool, constipated, diarrhea, difficulty swallowing, nausea, poor appetite, poor fluid intake, rectal bleeding , vomiting, other Allergies: Coded Allergies: No Known Allergies (Unverified , 09/16/19) All Systems: reviewed and negative except above Subjective 11/15 tele, no acute events, cxr and labs reviewed, nrb 15l, remdesivir 11/16 remains on iso, breathing is improved, no night sweats Objective Objective Current Medications Medications (Trade) Dose Ordered Sig/Leonor Route PRN Reason Start Time Stop Time Status Last Admin Dose Admin Acetaminophen (Tylenol) 650 mg Q4H PRN GT fever 11/15/19 16:00 12/11/19 08:59 Ascorbic Acid (Vitamin C) 500 mg DAILY GT 11/16/19 09:00 12/16/19 08:59 11/17/19 09:43 Cefepime HCl 1 gm/ Dextrose 55 ml @ 110 mls/hr Q24H IV 11/12/19 03:00 11/19/19 02:59 11/17/19 03:00 Heparin Sodium (Porcine) (Heparin 5000 units/ml) 5,000 units EVERY 12 HOURS SUBQ 11/11/19 09:00 12/26/19 08:59 11/17/19 09:44 Metronidazole 100 ml @ 100 mls/hr Q8HR IVPB 11/15/19 14:00 11/22/19 13:59 11/17/19 13:51 Mirtazapine (Remeron) 7.5 mg BEDTIME GT 11/11/19 21:00 02/09/20 20:59 11/16/19 22:30 Nitroglycerin (Ntg) 0.4 mg Q5M PRN SL Prn Chest Pain 11/11/19 09:00 12/11/19 08:59 Ondansetron HCl (Zofran) 4 mg Q6H PRN IVP Nausea & Vomiting 11/11/19 09:00 12/11/19 08:59 Polyethylene Glycol (Miralax) 17 gm DAILYPRN PRN ORAL Constipation 11/11/19 09:00 12/11/19 08:59 Promethazine HCl/ Codeine (Phenergan with Codeine) 5 ml Q4H PRN ORAL For Cough 11/11/19 09:00 12/11/19 08:59 Remdesivir 100 mg/ Sodium Chloride 250 ml @ 250 mls/hr Q24H IV 11/15/19 18:00 11/18/19 18:59 11/16/19 18:11 Tamsulosin HCl (Flomax) 0.4 mg DAILY ORAL 11/11/19 09:00 12/11/19 08:59 11/17/19 09:43 Temazepam (Restoril) 15 mg HSPRN PRN ORAL Insomnia 11/11/19 09:00 11/18/19 08:59 Vancomycin HCl (Firvanq) 125 mg FOUR TIMES A DAY ORAL 11/13/19 15:00 11/20/19 14:59 11/17/19 13:51 Vancomycin HCl (Vanco pharmacy to dose) 1 ea DAILY PRN MISC Per rx protocol 11/11/19 09:00 12/11/19 08:59 Last 24 Hour Vital Signs Date Time Temp Pulse Resp B/P (MAP) Pulse Ox O2 Delivery O2 Flow Rate FiO2 11/17/19 12:00 98.2 20 106/52 (70) 98 11/17/19 12:00 119 11/17/19 09:00 Non-Rebreather 10.0 11/17/19 08:00 97.8 102 20 105/48 (67) 98 11/17/19 08:00 111 11/17/19 04:00 98.8 122 26 106/49 (68) 95 11/17/19 04:00 115 11/17/19 00:00 105 11/17/19 00:00 99.9 108 24 118/45 (69) 100 11/16/19 21:05 Non-Rebreather 10.0 11/16/19 21:00 96 Non-Rebreather 15.0 100 11/16/19 20:00 109 11/16/19 20:00 96.0 102 19 119/60 (79) 100 11/16/19 16:00 116 11/16/19 16:00 98.4 106 18 109/64 (79) 100 11/16/19 12:00 98.4 101 19 129/71 (90) 98 11/16/19 12:00 115 11/16/19 09:00 Non-Rebreather 15.0 11/16/19 08:00 105 11/16/19 07:59 96.7 102 20 130/64 (86) 100 11/16/19 04:00 97.4 108 20 105/68 (80) 100 11/16/19 04:00 107 11/16/19 00:00 98.1 110 18 130/74 (92) 98 11/16/19 00:00 113 11/15/19 21:00 Non-Rebreather 15.0 11/15/19 20:00 97.5 108 20 123/67 (85) 99 11/15/19 20:00 114 11/15/19 19:39 98 Non-Rebreather 15.0 100 11/15/19 16:00 108 11/15/19 16:00 96.4 86 40 119/70 (86) 100 Intake and Output 11/16/19 11/17/19 19:00 07:00 Intake Total 485 ml Output Total 400 ml 1375 ml Balance 85 ml -1375 ml Free Water 450 ml Tube Feeding 35 ml Output Urine Total 400 ml 375 ml Stool Total 1000 ml Labs Test 11/15/19 06:10 11/16/19 07:45 11/17/19 06:00 White Blood Count 34.8 K/UL (4.8-10.8) 31.2 K/UL (4.8-10.8) 25.3 K/UL (4.8-10.8) Red Blood Count 3.34 M/UL (4.70-6.10) 3.56 M/UL (4.70-6.10) 3.39 M/UL (4.70-6.10) Hemoglobin 9.5 G/DL (14.2-18.0) 9.8 G/DL (14.2-18.0) 9.8 G/DL (14.2-18.0) Hematocrit 27.8 % (42.0-52.0) 29.5 % (42.0-52.0) 27.8 % (42.0-52.0) Mean Corpuscular Volume 83 FL (80-99) 83 FL (80-99) 82 FL (80-99) Mean Corpuscular Hemoglobin 28.4 PG (27.0-31.0) 27.6 PG (27.0-31.0) 28.9 PG (27.0-31.0) Mean Corpuscular Hemoglobin Concent 34.2 G/DL (32.0-36.0) 33.4 G/DL (32.0-36.0) 35.3 G/DL (32.0-36.0) Red Cell Distribution Width 13.1 % (11.6-14.8) 12.9 % (11.6-14.8) 12.9 % (11.6-14.8) Platelet Count 646 K/UL (150-450) 672 K/UL (150-450) 606 K/UL (150-450) Mean Platelet Volume 5.9 FL (6.5-10.1) 5.7 FL (6.5-10.1) 5.7 FL (6.5-10.1) Neutrophils (%) (Auto) % (45.0-75.0) % (45.0-75.0) % (45.0-75.0) Lymphocytes (%) (Auto) % (20.0-45.0) % (20.0-45.0) % (20.0-45.0) Monocytes (%) (Auto) % (1.0-10.0) % (1.0-10.0) % (1.0-10.0) Eosinophils (%) (Auto) % (0.0-3.0) % (0.0-3.0) % (0.0-3.0) Basophils (%) (Auto) % (0.0-2.0) % (0.0-2.0) % (0.0-2.0) Differential Total Cells Counted 100 100 100 Neutrophils % (Manual) 87 % (45-75) 74 % (45-75) 77 % (45-75) Lymphocytes % (Manual) 8 % (20-45) 6 % (20-45) 13 % (20-45) Monocytes % (Manual) 5 % (1-10) 2 % (1-10) 2 % (1-10) Eosinophils % (Manual) 0 % (0-3) 0 % (0-3) 0 % (0-3) Basophils % (Manual) 0 % (0-2) 0 % (0-2) 0 % (0-2) Band Neutrophils 0 % (0-8) 11 % (0-8) 5 % (0-8) Platelet Estimate Increased Increased Increased Platelet Morphology Normal Normal Normal Sodium Level 146 MMOL/L (136-145) 149 MMOL/L (136-145) 149 MMOL/L (136-145) Potassium Level 5.3 MMOL/L (3.5-5.1) 5.2 MMOL/L (3.5-5.1) 4.3 MMOL/L (3.5-5.1) Chloride Level 112 MMOL/L (98-107) 115 MMOL/L (98-107) 114 MMOL/L (98-107) Carbon Dioxide Level 27 MMOL/L (21-32) 27 MMOL/L (21-32) 23 MMOL/L (21-32) Anion Gap 8 mmol/L (5-15) 7 mmol/L (5-15) 12 mmol/L (5-15) Blood Urea Nitrogen 60 mg/dL (7-18) 66 mg/dL (7-18) 58 mg/dL (7-18) Creatinine 1.4 MG/DL (0.55-1.30) 1.5 MG/DL (0.55-1.30) 1.3 MG/DL (0.55-1.30) Estimat Glomerular Filtration Rate 49.8 mL/min (>60) 46.0 mL/min (>60) 54.3 mL/min (>60) Glucose Level 181 MG/DL (74-106) 174 MG/DL (74-106) 159 MG/DL (74-106) Calcium Level 7.7 MG/DL (8.5-10.1) 8.2 MG/DL (8.5-10.1) 7.7 MG/DL (8.5-10.1) Total Bilirubin 0.2 MG/DL (0.2-1.0) 0.3 MG/DL (0.2-1.0) 0.2 MG/DL (0.2-1.0) Direct Bilirubin < 0.1 MG/DL (0.0-0.3) < 0.1 MG/DL (0.0-0.3) < 0.1 MG/DL (0.0-0.3) Aspartate Amino Transf (AST/SGOT) 31 U/L (15-37) 12 U/L (15-37) 15 U/L (15-37) Alanine Aminotransferase (ALT/SGPT) 30 U/L (12-78) 15 U/L (12-78) 11 U/L (12-78) Alkaline Phosphatase 97 U/L (46-116) 86 U/L (46-116) 88 U/L (46-116) Pro-B-Type Natriuretic Peptide 2350 pg/mL (0-125) 1918 pg/mL (0-125) 2018 pg/mL (0-125) Total Protein 5.8 G/DL (6.4-8.2) 5.8 G/DL (6.4-8.2) 6.0 G/DL (6.4-8.2) Albumin 1.3 G/DL (3.4-5.0) 1.2 G/DL (3.4-5.0) 1.3 G/DL (3.4-5.0) Globulin 4.5 g/dL 4.6 g/dL 4.7 g/dL Albumin/Globulin Ratio 0.3 (1.0-2.7) 0.3 (1.0-2.7) 0.3 (1.0-2.7) Random Vancomycin Level 19.2 ug/mL 28.9 ug/mL Metamyelocytes % 2 % (0-0) Myelocytes % 5 % (0-0) 3 % (0-0) Hypochromasia 1+ Uric Acid 9.5 MG/DL (2.6-7.2) 9.2 MG/DL (2.6-7.2) Phosphorus Level 5.1 MG/DL (2.5-4.9) 3.0 MG/DL (2.5-4.9) Magnesium Level 3.3 MG/DL (1.8-2.4) 2.7 MG/DL (1.8-2.4) Erythrocyte Sedimentation Rate 115 MM/HR (0-20) C-Reactive Protein, Quantitative 42.3 mg/dL (0.00-0.90) Height (Feet): 6 Height (Inches): 0.00 Weight (Pounds): 130 Objective PE General: alert, chronically Ill Heent: nc, at Neck: full range of motion, supple, no meningismus Respiratory: chest non-tender, decreased breath sounds, crackles Cardiovascular: no murmur, tachycardia Gastrointestinal: normal bowel sounds, non tender,+peg Musculoskeletal: back normal, normal range of motion, gait/station normal Neurologic: no pronator Deng Flowers MD Nov 17, 2019 14:45
--- NOTE | 2019-11-17 14:52 | Infectious Diseases Prog Note ---
Assessment/Plan Assessment/Plan Assessment: Severe Sepsis Fever, SP Leukocytosis; worsened Pneumonia Acute hypoxic resp failure- on NRB 15L- 2ry to COVID19 and superimposed bacterial PNA -11/15 CXR: New/increased infiltrates at the left lateral lung base -11/11 CXR: Mild interstitial thickening is slightly improved. -11/10 CXR: Hazy basilar infiltrates left greater than right. sp cx PsA (blackwood S), P.mirabilis (blackwood S), S. aureus (S Vanco CARLOS 1, bactrim; R tetracycline ) -11/10 SARS-COV2 positive UTI c/w bacteremia -u/a wbc 5-10, nit neg, leuk +1, RBC TNCT; ucx 10-20k E. faecalis (S amp, vanco) -11/10 Bcx 07/19 E. faecalis (S Vancomycin, AMP) CONS bacteremia- likely contaminant -11/10 Bcx 2/ S. warnerii; 11/11 Bcx NTD Severe Cdiff colitis -11/10 Cdiff toxin A/B + MONICA, improving Deep tissue injury (sacrum, L heel)- no signs of infection HTN Dm2 MDD aspiration PNA dysphagia s/p GT malnutrition decubitus ulcer non verbal L MCA CVA 2ry to occlusion L ICA [place] resident ([facility]) VRE colonized MRSA colonized Plan: -Continue empiric IV Vancomycin and Cefepime #12/22 for UTI and PNA based on cultures -Cont PO Vancomycin 125mg qid #10/26 and add IV Flagyl #3/10 for severe Cdiff -On Remdesivir (11/13- )per [facility]f/u cx -Monitor CBC/CMP, temperature -COVID19 isolation and testing -PEG care -wound care per surgical team -aspiration precautions -f/u repeat Bcx -will need 2d echo later on this admission Thank you for consulting [facility]. Will continue to follow along with you. Discussed with RN and Lee Ann from Pharmacy Subjective Allergies: Coded Allergies: No Known Allergies (Unverified , 09/16/19) Subjective TM 99.9 On NRB 10L, Fio2 100% wbc improving repeat Bcx NTD Objective Vital Signs Last 24 Hour Vital Signs Date Time Temp Pulse Resp B/P (MAP) Pulse Ox O2 Delivery O2 Flow Rate FiO2 11/17/19 12:00 98.2 20 106/52 (70) 98 11/17/19 12:00 119 11/17/19 09:00 Non-Rebreather 10.0 11/17/19 08:00 97.8 102 20 105/48 (67) 98 11/17/19 08:00 111 11/17/19 04:00 98.8 122 26 106/49 (68) 95 11/17/19 04:00 115 11/17/19 00:00 105 11/17/19 00:00 99.9 108 24 118/45 (69) 100 11/16/19 21:05 Non-Rebreather 10.0 11/16/19 21:00 96 Non-Rebreather 15.0 100 11/16/19 20:00 109 11/16/19 20:00 96.0 102 19 119/60 (79) 100 11/16/19 16:00 116 11/16/19 16:00 98.4 106 18 109/64 (79) 100 Height (Feet): 6 Height (Inches): 0.00 Weight (Pounds): 130 Objective not examined to limit COVID19 exposure Laboratory Tests Test 11/17/19 06:00 White Blood Count 25.3 K/UL (4.8-10.8) *H Red Blood Count 3.39 M/UL (4.70-6.10) L Hemoglobin 9.8 G/DL (14.2-18.0) L Hematocrit 27.8 % (42.0-52.0) L Mean Corpuscular Volume 82 FL (80-99) Mean Corpuscular Hemoglobin 28.9 PG (27.0-31.0) Mean Corpuscular Hemoglobin Concent 35.3 G/DL (32.0-36.0) Red Cell Distribution Width 12.9 % (11.6-14.8) Platelet Count 606 K/UL (150-450) H Mean Platelet Volume 5.7 FL (6.5-10.1) L Neutrophils (%) (Auto) % (45.0-75.0) Lymphocytes (%) (Auto) % (20.0-45.0) Monocytes (%) (Auto) % (1.0-10.0) Eosinophils (%) (Auto) % (0.0-3.0) Basophils (%) (Auto) % (0.0-2.0) Differential Total Cells Counted 100 Neutrophils % (Manual) 77 % (45-75) H Lymphocytes % (Manual) 13 % (20-45) L Monocytes % (Manual) 2 % (1-10) Eosinophils % (Manual) 0 % (0-3) Basophils % (Manual) 0 % (0-2) Myelocytes % 3 % (0-0) H Band Neutrophils 5 % (0-8) Platelet Estimate Increased H Platelet Morphology Normal Erythrocyte Sedimentation Rate 115 MM/HR (0-20) H Sodium Level 149 MMOL/L (136-145) H Potassium Level 4.3 MMOL/L (3.5-5.1) Chloride Level 114 MMOL/L (98-107) H Carbon Dioxide Level 23 MMOL/L (21-32) Anion Gap 12 mmol/L (5-15) Blood Urea Nitrogen 58 mg/dL (7-18) H Creatinine 1.3 MG/DL (0.55-1.30) Estimat Glomerular Filtration Rate 54.3 mL/min (>60) Glucose Level 159 MG/DL (74-106) H Uric Acid 9.2 MG/DL (2.6-7.2) H Calcium Level 7.7 MG/DL (8.5-10.1) L Phosphorus Level 3.0 MG/DL (2.5-4.9) Magnesium Level 2.7 MG/DL (1.8-2.4) H Total Bilirubin 0.2 MG/DL (0.2-1.0) Direct Bilirubin < 0.1 MG/DL (0.0-0.3) Aspartate Amino Transf (AST/SGOT) 15 U/L (15-37) Alanine Aminotransferase (ALT/SGPT) 11 U/L (12-78) L Alkaline Phosphatase 88 U/L (46-116) C-Reactive Protein, Quantitative 42.3 mg/dL (0.00-0.90) H Pro-B-Type Natriuretic Peptide 2018 pg/mL (0-125) H Total Protein 6.0 G/DL (6.4-8.2) L Albumin 1.3 G/DL (3.4-5.0) L Globulin 4.7 g/dL Albumin/Globulin Ratio 0.3 (1.0-2.7) L Current Medications Medications (Trade) Dose Ordered Sig/Leonor Route PRN Reason Start Time Stop Time Status Last Admin Dose Admin Acetaminophen (Tylenol) 650 mg Q4H PRN GT fever 11/15/19 16:00 12/11/19 08:59 Ascorbic Acid (Vitamin C) 500 mg DAILY GT 11/16/19 09:00 12/16/19 08:59 11/17/19 09:43 Cefepime HCl 1 gm/ Dextrose 55 ml @ 110 mls/hr Q24H IV 11/12/19 03:00 11/19/19 02:59 11/17/19 03:00 Heparin Sodium (Porcine) (Heparin 5000 units/ml) 5,000 units EVERY 12 HOURS SUBQ 11/11/19 09:00 12/26/19 08:59 11/17/19 09:44 Metronidazole 100 ml @ 100 mls/hr Q8HR IVPB 11/15/19 14:00 11/22/19 13:59 11/17/19 13:51 Mirtazapine (Remeron) 7.5 mg BEDTIME GT 11/11/19 21:00 02/09/20 20:59 11/16/19 22:30 Nitroglycerin (Ntg) 0.4 mg Q5M PRN SL Prn Chest Pain 11/11/19 09:00 12/11/19 08:59 Ondansetron HCl (Zofran) 4 mg Q6H PRN IVP Nausea & Vomiting 11/11/19 09:00 12/11/19 08:59 Polyethylene Glycol (Miralax) 17 gm DAILYPRN PRN ORAL Constipation 11/11/19 09:00 12/11/19 08:59 Promethazine HCl/ Codeine (Phenergan with Codeine) 5 ml Q4H PRN ORAL For Cough 11/11/19 09:00 12/11/19 08:59 Remdesivir 100 mg/ Sodium Chloride 250 ml @ 250 mls/hr Q24H IV 11/15/19 18:00 11/18/19 18:59 11/16/19 18:11 Tamsulosin HCl (Flomax) 0.4 mg DAILY ORAL 11/11/19 09:00 12/11/19 08:59 11/17/19 09:43 Temazepam (Restoril) 15 mg HSPRN PRN ORAL Insomnia 11/11/19 09:00 11/18/19 08:59 Vancomycin HCl (Firvanq) 125 mg FOUR TIMES A DAY ORAL 11/13/19 15:00 11/20/19 14:59 11/17/19 13:51 Vancomycin HCl (Vanco pharmacy to dose) 1 ea DAILY PRN MISC Per rx protocol 11/11/19 09:00 12/11/19 08:59 Shannon Mark M.D. Nov 17, 2019 14:52
--- NOTE | 2019-11-17 15:20 | Surgery Progress Note ---
Surgery Progress Note Subjective Additional Comments wbc trending down h/h stable Objective Last 24 Hour Vital Signs Date Time Temp Pulse Resp B/P (MAP) Pulse Ox O2 Delivery O2 Flow Rate FiO2 11/17/19 12:00 98.2 20 106/52 (70) 98 11/17/19 12:00 119 11/17/19 09:00 Non-Rebreather 10.0 11/17/19 08:00 97.8 102 20 105/48 (67) 98 11/17/19 08:00 111 11/17/19 04:00 98.8 122 26 106/49 (68) 95 11/17/19 04:00 115 11/17/19 00:00 105 11/17/19 00:00 99.9 108 24 118/45 (69) 100 11/16/19 21:05 Non-Rebreather 10.0 11/16/19 21:00 96 Non-Rebreather 15.0 100 11/16/19 20:00 109 11/16/19 20:00 96.0 102 19 119/60 (79) 100 11/16/19 16:00 116 11/16/19 16:00 98.4 106 18 109/64 (79) 100 I&O Intake and Output 11/16/19 11/17/19 18:59 06:59 Intake Total 485 ml Output Total 400 ml 1375 ml Balance 85 ml -1375 ml Free Water 450 ml Tube Feeding 35 ml Output Urine Total 400 ml 375 ml Stool Total 1000 ml Dressing: other Wound: other Drains: other Cardiovascular: RSR Respiratory: decreased breath sounds Abdomen: soft, non-tender, present bowel sounds Extremities: no cyanosis Laboratory Tests Test 11/17/19 06:00 White Blood Count 25.3 K/UL (4.8-10.8) *H Red Blood Count 3.39 M/UL (4.70-6.10) L Hemoglobin 9.8 G/DL (14.2-18.0) L Hematocrit 27.8 % (42.0-52.0) L Mean Corpuscular Volume 82 FL (80-99) Mean Corpuscular Hemoglobin 28.9 PG (27.0-31.0) Mean Corpuscular Hemoglobin Concent 35.3 G/DL (32.0-36.0) Red Cell Distribution Width 12.9 % (11.6-14.8) Platelet Count 606 K/UL (150-450) H Mean Platelet Volume 5.7 FL (6.5-10.1) L Neutrophils (%) (Auto) % (45.0-75.0) Lymphocytes (%) (Auto) % (20.0-45.0) Monocytes (%) (Auto) % (1.0-10.0) Eosinophils (%) (Auto) % (0.0-3.0) Basophils (%) (Auto) % (0.0-2.0) Differential Total Cells Counted 100 Neutrophils % (Manual) 77 % (45-75) H Lymphocytes % (Manual) 13 % (20-45) L Monocytes % (Manual) 2 % (1-10) Eosinophils % (Manual) 0 % (0-3) Basophils % (Manual) 0 % (0-2) Myelocytes % 3 % (0-0) H Band Neutrophils 5 % (0-8) Platelet Estimate Increased H Platelet Morphology Normal Erythrocyte Sedimentation Rate 115 MM/HR (0-20) H Sodium Level 149 MMOL/L (136-145) H Potassium Level 4.3 MMOL/L (3.5-5.1) Chloride Level 114 MMOL/L (98-107) H Carbon Dioxide Level 23 MMOL/L (21-32) Anion Gap 12 mmol/L (5-15) Blood Urea Nitrogen 58 mg/dL (7-18) H Creatinine 1.3 MG/DL (0.55-1.30) Estimat Glomerular Filtration Rate 54.3 mL/min (>60) Glucose Level 159 MG/DL (74-106) H Uric Acid 9.2 MG/DL (2.6-7.2) H Calcium Level 7.7 MG/DL (8.5-10.1) L Phosphorus Level 3.0 MG/DL (2.5-4.9) Magnesium Level 2.7 MG/DL (1.8-2.4) H Total Bilirubin 0.2 MG/DL (0.2-1.0) Direct Bilirubin < 0.1 MG/DL (0.0-0.3) Aspartate Amino Transf (AST/SGOT) 15 U/L (15-37) Alanine Aminotransferase (ALT/SGPT) 11 U/L (12-78) L Alkaline Phosphatase 88 U/L (46-116) C-Reactive Protein, Quantitative 42.3 mg/dL (0.00-0.90) H Pro-B-Type Natriuretic Peptide 2018 pg/mL (0-125) H Total Protein 6.0 G/DL (6.4-8.2) L Albumin 1.3 G/DL (3.4-5.0) L Globulin 4.7 g/dL Albumin/Globulin Ratio 0.3 (1.0-2.7) L Plan Problems: (1) Decubitus skin ulcer Assessment & Plan: Pt presented on admission with large sacral wound. Base of wound with areas that area purple and indurated sacrococcygeal,L sacrum/L gluteus,Scattered wounds with maceration L gluteus, one wound R sacrum with Biofilm, Surrounding non-blanching erythema entire buttocks. Small dry scabbed area noted to lumbar area. Unstageable Pressure Injury L heel. Base of wound is necrotic with surrounding non-blanching erythema. Tx.plan: Apply Moisture Barrier Paste to Buttocks. Cover Sacrum, R and L gluteal cheeks with Optifoam drsgs. Change every 3 days and prn. Apply Betadine to L heel. Cover with Optifoam drsg. Change every 3 days and prn. Reposition at least every 2hours or as tolerated. Place Pillow between knees. Off-load heels with Pillow. APM/BRUNILDA Mattress overlay. DAILY ESTIMATED NEEDS: Needs based on wt loss, underweight, wound/ 59kg 30-35 kcals/kg 5775-6229 total kcals 1.25-2 g protein/kg 74-118 g total protein 25-30 mL/kg 9938-9259 total fluid mLs NUTRITION DIAGNOSIS: * Increased kcal/prot intake needs R/T wound healing, suspected recent significant wt loss as evidenced by admitted w/ wounds @ lt posterior heel, R lower back, sacrum as per photos, pending eval, suspected significant wt loss of 40lbs/ 23.7% in <5 months, currently @ 81% IBW. . * Swallowing difficulty R/T dysphagia, h/o CVA as evidenced by PEG dependent. CURRENT TF:Glucerna 1.2 @65ml/hr x24 hrs ENTERAL NUTRITION RECOMMENDATIONS: NEPRO @45ml/hr x24 hrs to provide 1080ml, 1944 kcal, 87g pro, 785ml free H2O - Rec TF change for lower K content (1145mg in Nepro @45 vs 3151mg in Glucerna 1.2 @65) - Start at 25ml/hr advance as tolerated 10ml/hr q4-6 hrs - HOB over 30 degrees - Increased H20 flush to 200ml q4 hrs ADDITIONAL RECOMMENDATIONS: 1) Calibrated bedscale wt -> per SNF: HT=59" and DV=318ibd (10/20/19) 2) Wound healing: Add Vit C 500mg QD/ or dosing per nephro Add Osbaldo BID via PEG w/ TF order 3) Monitor lytes: monitor K trend, need for renal TF (K 5.3, 5.5) 4) NISS w/ TF (h/o DM) 5) Monitor for diarrhea, rec probiotics (2) Sepsis Assessment & Plan: 74-year-old male multi-medical comorbidities admitted for respiratory deficiency currently tachypneic, leukocytosis, malnutrition, hypoalbuminemia. Complete physical exam performed identified areas of concerned given patient's comorbidities current condition high risk for deteriorationNo active infection identified from patient's wounds and likely respiratory nature. Chest x-ray reviewed. No acute surgical intervention planned at this time Preventive measures IV antibiotics per infectious disease Okay for feeding once stable respiratory Appreciate Pulm input c diff positive on vanco blood cx noted worsening leukocytosis ID abx noted heme input noted There are increasing basilar opacities on the left noted. The heart size is normal. The pleural spaces are clear. Impression: New/increased infiltrates at the left lateral lung base We will follow with recommendations thank you for let me participate patient's care (3) Left carotid artery occlusion (4) Left middle cerebral artery stroke (5) DM (diabetes mellitus) (6) ARF (acute renal failure) (7) Ventricular tachyarrhythmia (8) Aspiration pneumonia (9) Hypertension (10) UTI (urinary tract infection) (11) Anemia (12) Respiratory failure with hypoxia (13) Suspected COVID-19 virus infection Elfego Payne Nov 17, 2019 15:20
[2019-11-17 16:00] VITALS: BP 108/62
[2019-11-17] MEDS ORDERED: Metoprolol Tartrate 12.5mg TAB ORAL SCH (17:00)
[2019-11-17] MEDS: Maintenance Dose:Remdesivir 100mg/NS 230ml x 4 Doses IV SCH (17:52)
--- NOTE | 2019-11-17 18:12 | Cardiology Progress Note ---
Assessment/Plan Assessment/Plan 1. covid 19 pneumonia 2. History of cerebrovascular accident. 3. History of carotid occlusion. 4. Bilateral infiltrates and pneumonia. 5. Aphasia. 6. Diabetes mellitus. 7. Hyponatremia. 8. Renal insufficiency 9. C diff+ 10. enterococus bacteremia wbc lower may be related to c diff low grade fever resolved bp seems fine cr stable on free water na stable abx per ID now covid 19 detected from admission on resmeidivir d/w digital intern sinus tachy short svt will start on lwo montanez bb for now cxr from today personally reviewed looks ok although radiologist think infiltrate increased on 11/15 titrate fio2 now d/w rn and rt tolerated 55% down form 10 liter with adequate saturation to contineue to taper repeat cx neg Subjective ROS Limited/Unobtainable: Yes Subjective not communicative Objective Last 24 Hour Vital Signs Date Time Temp Pulse Resp B/P (MAP) Pulse Ox O2 Delivery O2 Flow Rate FiO2 11/17/19 18:04 97 Non-Rebreather 14.0 55 11/17/19 17:51 117 108/62 11/17/19 16:00 117 11/17/19 16:00 98.4 104 20 108/62 (77) 96 11/17/19 12:00 98.2 20 106/52 (70) 98 11/17/19 12:00 119 11/17/19 09:00 Non-Rebreather 10.0 11/17/19 08:00 97.8 102 20 105/48 (67) 98 11/17/19 08:00 111 11/17/19 04:00 98.8 122 26 106/49 (68) 95 11/17/19 04:00 115 11/17/19 00:00 105 11/17/19 00:00 99.9 108 24 118/45 (69) 100 11/16/19 21:05 Non-Rebreather 10.0 11/16/19 21:00 96 Non-Rebreather 15.0 100 11/16/19 20:00 109 11/16/19 20:00 96.0 102 19 119/60 (79) 100 Intake and Output 11/16/19 11/17/19 19:00 07:00 Intake Total 485 ml Output Total 400 ml 1375 ml Balance 85 ml -1375 ml Free Water 450 ml Tube Feeding 35 ml Output Urine Total 400 ml 375 ml Stool Total 1000 ml Laboratory Tests Test 11/17/19 06:00 White Blood Count 25.3 K/UL (4.8-10.8) *H Red Blood Count 3.39 M/UL (4.70-6.10) L Hemoglobin 9.8 G/DL (14.2-18.0) L Hematocrit 27.8 % (42.0-52.0) L Mean Corpuscular Volume 82 FL (80-99) Mean Corpuscular Hemoglobin 28.9 PG (27.0-31.0) Mean Corpuscular Hemoglobin Concent 35.3 G/DL (32.0-36.0) Red Cell Distribution Width 12.9 % (11.6-14.8) Platelet Count 606 K/UL (150-450) H Mean Platelet Volume 5.7 FL (6.5-10.1) L Neutrophils (%) (Auto) % (45.0-75.0) Lymphocytes (%) (Auto) % (20.0-45.0) Monocytes (%) (Auto) % (1.0-10.0) Eosinophils (%) (Auto) % (0.0-3.0) Basophils (%) (Auto) % (0.0-2.0) Differential Total Cells Counted 100 Neutrophils % (Manual) 77 % (45-75) H Lymphocytes % (Manual) 13 % (20-45) L Monocytes % (Manual) 2 % (1-10) Eosinophils % (Manual) 0 % (0-3) Basophils % (Manual) 0 % (0-2) Myelocytes % 3 % (0-0) H Band Neutrophils 5 % (0-8) Platelet Estimate Increased H Platelet Morphology Normal Erythrocyte Sedimentation Rate 115 MM/HR (0-20) H Sodium Level 149 MMOL/L (136-145) H Potassium Level 4.3 MMOL/L (3.5-5.1) Chloride Level 114 MMOL/L (98-107) H Carbon Dioxide Level 23 MMOL/L (21-32) Anion Gap 12 mmol/L (5-15) Blood Urea Nitrogen 58 mg/dL (7-18) H Creatinine 1.3 MG/DL (0.55-1.30) Estimat Glomerular Filtration Rate 54.3 mL/min (>60) Glucose Level 159 MG/DL (74-106) H Uric Acid 9.2 MG/DL (2.6-7.2) H Calcium Level 7.7 MG/DL (8.5-10.1) L Phosphorus Level 3.0 MG/DL (2.5-4.9) Magnesium Level 2.7 MG/DL (1.8-2.4) H Total Bilirubin 0.2 MG/DL (0.2-1.0) Direct Bilirubin < 0.1 MG/DL (0.0-0.3) Aspartate Amino Transf (AST/SGOT) 15 U/L (15-37) Alanine Aminotransferase (ALT/SGPT) 11 U/L (12-78) L Alkaline Phosphatase 88 U/L (46-116) C-Reactive Protein, Quantitative 42.3 mg/dL (0.00-0.90) H Pro-B-Type Natriuretic Peptide 2018 pg/mL (0-125) H Total Protein 6.0 G/DL (6.4-8.2) L Albumin 1.3 G/DL (3.4-5.0) L Globulin 4.7 g/dL Albumin/Globulin Ratio 0.3 (1.0-2.7) L Objective exam not performed as pt with covid per heme Respiratory: chest non-tender, decreased breath sounds, crackles Cardiovascular: no murmur, tachycardia Gastrointestinal: normal bowel sounds, non tender,+peg Chris Melgar MD Nov 17, 2019 18:12
[2019-11-17 20:00] VITALS: BP 99/57
[2019-11-18] VITALS (52 sets, daily range): BP systolic 39–158; BP diastolic 17–62
--- NOTE | 2019-11-18 00:20 | Psych Consult Progress Note ---
Psychiatry Progress Note Psychiatry Progress Note Medications Current Medications Medications (Trade) Dose Ordered Sig/Leonor Route PRN Reason Start Time Stop Time Status Last Admin Dose Admin Acetaminophen (Tylenol) 650 mg Q4H PRN GT fever 11/15/19 16:00 12/11/19 08:59 Ascorbic Acid (Vitamin C) 500 mg DAILY GT 11/16/19 09:00 12/16/19 08:59 11/17/19 09:43 Cefepime HCl 1 gm/ Dextrose 55 ml @ 110 mls/hr Q24H IV 11/12/19 03:00 11/19/19 02:59 11/17/19 03:00 Heparin Sodium (Porcine) (Heparin 5000 units/ml) 5,000 units EVERY 12 HOURS SUBQ 11/11/19 09:00 12/26/19 08:59 11/17/19 21:11 Metronidazole 100 ml @ 100 mls/hr Q8HR IVPB 11/15/19 14:00 11/22/19 13:59 11/17/19 21:10 Mirtazapine (Remeron) 7.5 mg BEDTIME GT 11/11/19 21:00 02/09/20 20:59 11/17/19 21:11 Nitroglycerin (Ntg) 0.4 mg Q5M PRN SL Prn Chest Pain 11/11/19 09:00 12/11/19 08:59 Ondansetron HCl (Zofran) 4 mg Q6H PRN IVP Nausea & Vomiting 11/11/19 09:00 12/11/19 08:59 Polyethylene Glycol (Miralax) 17 gm DAILYPRN PRN ORAL Constipation 11/11/19 09:00 12/11/19 08:59 Promethazine HCl/ Codeine (Phenergan with Codeine) 5 ml Q4H PRN ORAL For Cough 11/11/19 09:00 12/11/19 08:59 Remdesivir 100 mg/ Sodium Chloride 250 ml @ 250 mls/hr Q24H IV 11/15/19 18:00 11/18/19 18:59 11/17/19 17:52 Tamsulosin HCl (Flomax) 0.4 mg DAILY ORAL 11/11/19 09:00 12/11/19 08:59 11/17/19 09:43 Temazepam (Restoril) 15 mg HSPRN PRN ORAL Insomnia 11/11/19 09:00 11/18/19 08:59 Vancomycin HCl (Firvanq) 125 mg FOUR TIMES A DAY ORAL 11/13/19 15:00 11/20/19 14:59 11/17/19 21:10 Vancomycin HCl (Vanco pharmacy to dose) 1 ea DAILY PRN MISC Per rx protocol 11/11/19 09:00 12/11/19 08:59 Allergies: Coded Allergies: No Known Allergies (Unverified , 09/16/19) Objective Data Height (Feet): 6 Height (Inches): 0.00 Weight (Pounds): 130 Assessment/Plan Status: stable, progressing, unchanged Assessment/Plan: ASSESSMENT: 1. Acute encephalopathy. 2. Major depressive disorder. PLAN: 1. Continue soft restraints. 2. Remeron 7.5 mg at bedtime. 3. Discussed with the nurse. Jessica Quinonez MD Nov 18, 2019 00:20
[2019-11-18] MEDS ORDERED: Nitroglycerin Subl 0.4mg tab SL PRN (03:00)
[2019-11-18] MEDS ORDERED: Miralax 17gm pkt ORAL PRN (03:00)
[2019-11-18] MEDS ORDERED: Cefepime HCl 1 GM in D5W 55 ML IV SCH (03:00)
[2019-11-18] MEDS ORDERED: 1/2 NS 1000ml 250 ML IV SCH (03:00)
[2019-11-18] MEDS ORDERED: Miralax 17gm pkt GT PRN (03:15)
[2019-11-18] MEDS ORDERED: Promethazine/Codeine 5ml UD GT PRN (03:15)
[2019-11-18] MEDS ORDERED: Promethazine/Codeine 5ml UD ORAL PRN (03:15)
[2019-11-18] MEDS: Phenylephrine 50 MG in D5W 245 ML IV SCH ×3 (03:17→10:46)
--- NOTE | 2019-11-18 03:27 | Emergency Room Report ---
Physical Exam Vital Signs Date Time Temp Pulse Resp B/P (MAP) Pulse Ox O2 Delivery O2 Flow Rate FiO2 11/14/19 08:00 97.5 81 40 109/67 (81) 100 11/14/19 09:00 Non-Rebreather 15.0 11/14/19 19:57 100 Medical Decision Making Diagnostic Impression: Primary Impression: Sepsis Qualified Codes: A41.9 - Sepsis, unspecified organism; R65.20 - Severe sepsis without septic shock; J96.01 - Acute respiratory failure with hypoxia Additional Impressions: Suspected COVID-19 virus infection Respiratory failure with hypoxia Qualified Codes: J96.01 - Acute respiratory failure with hypoxia ARF (acute renal failure) Qualified Codes: N17.9 - Acute kidney failure, unspecified Anemia Qualified Codes: D64.9 - Anemia, unspecified UTI (urinary tract infection) Qualified Codes: N30.00 - Acute cystitis without hematuria ER Course Called to patient bedside for a CODE BLUE. The patient was admitted for COVID- 19 pneumonia. I arrived on the floor with ongoing chest compressions; the patient had already received epinephrine. Pulse checks up to that point showed PEA with a bradycardic rate. Chest compressions, epinephrine continued per ACLS protocol. The patient was intubated at bedside by me using a bougie and direct visualization. There was significant gastric contents in the patient's pharynx. Intubated with an 8.0 endotracheal tube secured at 22 cm. Patient was ventilating well. Chest compressions continued for several additional rounds during which the patient was asystole on monitor until the last pulse check which showed narrow complex tachycardia between 160 and 190 bpm. Patient had strong pulses but was hypotensive. Presumed SVT the patient underwent synchronized cardioversion twice at 200 J with successful stabilization of rhythm and rate. Supination improved. Placed on ventilator. He was transferred to the ICU in a right femoral central line was placed under ultrasound guidance as the patient requires IV pressor support. Remainder of care per ICU team. Recall as needed. Chest X-Ray Diagnostic Results Chest X-Ray Diagnostic Results : Chest X-Ray Ordered: Yes # of Views/Limited/Complete: 1 View Indication: Other - Intubation EP Interpretation: Yes Interpretation: other - Endotracheal tube above the qi. Impression: Other - Endotracheal tube tip above the qi Electronically Signed by: Electronically signed by Dr. Tucker Tam Last Vital Signs Date Time Temp Pulse Resp B/P (MAP) Pulse Ox O2 Delivery O2 Flow Rate FiO2 11/18/19 03:18 62/39 11/18/19 03:17 101 11/18/19 00:00 97.4 21 100 11/17/19 21:00 Venturi Mask 10.0 11/17/19 18:04 55 Disposition: ADMITTED INPATIENT Condition: Serious Referrals: Juan Singh DO (PCP) Procedures Cardioversion Cardioversion: Consent: Emergent Indication: SVT Type: Synchonis Response: Sinus Attempts: Other - 2 Patient Tolerated: Well Complications: None Central Line Central Line : Consent: Emergent Central Line Lumen: triple Maximal Sterile Barrier Tech: yes cap, yes mask, yes sterile gown, yes sterile gloves, yes large sterile sheet, yes hand hygiene, yes chlorhexidine prep Central Line Postion: femoral (R) Complications: none Central Line Post Position: sutured, good blood return Attempts: One Patient Tolerated: Well Complications: None CPR/Code Blue CPR/Code Blue Narrative See MDM section of this note for CODE BLUE narrative Intubation Intubation : Consent: Emergent Intubation Method: orotracheal Tube Size (cm): 8.0 Breath Sounds after Intubation: equal Intubation Complications: apparent aspiration Post Intubation Xray: Yes Progress/Xray Impression: Endotracheal tube in appropriate position above the qi Attempts: One Patient Tolerated: Well Complications: None Tucker Tam MD Nov 18, 2019 03:27
--- NOTE | 2019-11-18 05:33 | Diagnostic Imaging Report ---
EXAM: XR Chest, 1 View CLINICAL HISTORY: S/P intubation TECHNIQUE: Frontal view of the chest. COMPARISON: November 16, 2019. FINDINGS: Distal tip of ET tube is approximately 4 cm above the qi. External pacemaker devices. Overlying EKG leads and catheters. Cardiac silhouette is within normal limits. Central vascular congestion. Low lung volumes with elevated right hemidiaphragm. Bilateral lower lobe atelectasis/infiltrates, slightly increased. No large pleural effusions. Degenerative changes in thoracic spine. IMPRESSION: Distal tip of ET tube is approximately 4 cm above the qi. Central vascular congestion. Bilateral lower lobe atelectasis/infiltrates, slightly increased. No large pleural effusions.
[2019-11-18 07:05] LABS: HEMATOCRIT 27.1 % (42.0-52.0); HEMOGLOBIN 8.8 G/DL (14.2-18.0); MEAN CORPUSCULAR VOLUME 86 FL (80-99); PLATELET COUNT 547 K/UL (150-450); RED BLOOD COUNT 3.17 M/UL (4.70-6.10); RED CELL DISTRIBUTION WIDTH 13.7 % (11.6-14.8)
[2019-11-18 07:23] LABS: WHITE BLOOD COUNT 30.7 K/UL (4.8-10.8)
[2019-11-18 07:45] LABS: ALANINE AMINOTRANSFERASE 19 U/L (12-78); ALBUMIN/GLOBULIN RATIO 0.2 (1.0-2.7); ALKALINE PHOSPHATASE 95 U/L (46-116); ANION GAP 15 mmol/L (5-15); ASPARTATE AMINO TRANSFERASE 45 U/L (15-37); BILIRUBIN,DIRECT 0.1 MG/DL (0.0-0.3); BILIRUBIN,TOTAL 0.2 MG/DL (0.2-1.0); BLOOD UREA NITROGEN 57 mg/dL (7-18); CALCIUM 7.3 MG/DL (8.5-10.1); CARBON DIOXIDE 21 MMOL/L (21-32); CHLORIDE 114 MMOL/L (98-107); CREATININE 1.8 MG/DL (0.55-1.30); POTASSIUM 4.3 MMOL/L (3.5-5.1); SODIUM 150 MMOL/L (136-145)
--- NOTE | 2019-11-18 08:02 | General Progress Note ---
Assessment/Plan Problem List: (1) DM (diabetes mellitus) ICD Codes: E11.9 - Type 2 diabetes mellitus without complications SNOMED: 83836628 (2) ARF (acute renal failure) ICD Codes: N17.9 - Acute kidney failure, unspecified SNOMED: 31136073 Qualifiers: Qualified Codes: N17.9 - Acute kidney failure, unspecified (3) Aspiration pneumonia ICD Codes: J69.0 - Pneumonitis due to inhalation of food and vomit SNOMED: 282129857 (4) UTI (urinary tract infection) ICD Codes: N39.0 - Urinary tract infection, site not specified SNOMED: 13415869 Qualifiers: Qualified Codes: N30.00 - Acute cystitis without hematuria (5) Hypertension ICD Codes: I10 - Essential (primary) hypertension SNOMED: 11441638 (6) Anemia ICD Codes: D64.9 - Anemia, unspecified SNOMED: 206953732 Qualifiers: Qualified Codes: D64.9 - Anemia, unspecified (7) Respiratory failure with hypoxia ICD Codes: J96.91 - Respiratory failure, unspecified with hypoxia SNOMED: 30105266632739638 Qualifiers: Qualified Codes: J96.01 - Acute respiratory failure with hypoxia (8) Suspected COVID-19 virus infection ICD Codes: Z20.828 - Contact with and (suspected) exposure to other viral communicable diseases SNOMED: 404831944 Status: unchanged Assessment/Plan: vent abx pt diet cbc bmp am Subjective Constitutional: Reports: weakness Allergies: Coded Allergies: No Known Allergies (Unverified , 09/16/19) All Systems: reviewed and negative except above Subjective intubated sedated in icu Objective Last 24 Hour Vital Signs Date Time Temp Pulse Resp B/P (MAP) Pulse Ox O2 Delivery O2 Flow Rate FiO2 11/18/19 07:00 91 17 149/61 (90) 100 11/18/19 07:00 149/61 11/18/19 06:28 80 143/57 11/18/19 06:00 141/60 11/18/19 06:00 85 17 141/60 (87) 100 11/18/19 05:15 111/53 11/18/19 05:00 74 16 99/53 (68) 100 11/18/19 04:00 96 11/18/19 04:00 Mechanical Ventilator 11/18/19 04:00 100.0 96 17 99/53 (68) 100 11/18/19 03:47 104 31 100 11/18/19 03:45 99 17 98/56 (70) 100 11/18/19 03:30 102 17 85/51 (62) 100 11/18/19 03:18 62/39 11/18/19 03:17 101 54/36 11/18/19 03:15 104 17 62/39 (47) 100 11/18/19 03:00 100 16 39/17 (24) 100 11/18/19 02:45 97 16 39/17 (24) 90 11/18/19 02:30 95.6 105 16 84/60 (68) 90 11/18/19 00:00 116 11/18/19 00:00 97.4 61 21 109/51 (70) 100 11/17/19 21:00 Venturi Mask 10.0 11/17/19 20:16 99 Non-Rebreather 14.0 55 11/17/19 20:00 106 11/17/19 20:00 98.6 62 21 99/57 (71) 100 11/17/19 18:04 97 Non-Rebreather 14.0 55 11/17/19 17:51 117 108/62 11/17/19 16:00 117 11/17/19 16:00 98.4 104 20 108/62 (77) 96 11/17/19 12:00 98.2 20 106/52 (70) 98 11/17/19 12:00 119 11/17/19 09:00 Non-Rebreather 10.0 Intake and Output 11/17/19 11/18/19 19:00 07:00 Intake Total 4668.4 ml Output Total 1200 ml 100 ml Balance -1200 ml 4568.4 ml IV Total 4668.4 ml Tube Feeding 0 ml Output Urine Total 1200 ml 100 ml # Voids 3 Laboratory Tests 11/18/19 03:30: Arterial Blood pH 7.001*L, Arterial Blood Partial Pressure CO2 73.7*H, Arterial Blood Partial Pressure O2 217.1H, Arterial Blood HCO3 17.8*L, Arterial Blood Oxygen Saturation 98.3, Arterial Blood Base Excess -13.3*L, Michael Test Positive 11/18/19 05:00: White Blood Count 30.7*H, Red Blood Count 3.17L, Hemoglobin 8.8L, Hematocrit 27.1L, Mean Corpuscular Volume 86, Mean Corpuscular Hemoglobin 27.8, Mean Corpuscular Hemoglobin Concent 32.5, Red Cell Distribution Width 13.7, Platelet Count 547H, Mean Platelet Volume 5.5L, Neutrophils (%) (Auto) , Lymphocytes (%) (Auto) , Monocytes (%) (Auto) , Eosinophils (%) (Auto) , Basophils (%) (Auto) , Neutrophils % (Manual) [Pending], Lymphocytes % (Manual) [Pending], Platelet Estimate [Pending], Platelet Morphology [Pending], Sodium Level 150H, Potassium Level 4.3, Chloride Level 114H, Carbon Dioxide Level 21, Anion Gap 15, Blood Urea Nitrogen 57H, Creatinine 1.8H, Estimat Glomerular Filtration Rate 37.3, Glucose Level 191H, Uric Acid [Pending], Calcium Level 7.3L, Phosphorus Level [ Pending], Magnesium Level [Pending], Total Bilirubin 0.2, Direct Bilirubin 0.1, Aspartate Amino Transf (AST/SGOT) 45H, Alanine Aminotransferase (ALT/SGPT) 19, Alkaline Phosphatase 95, Troponin I 0.038, Total Protein 5.0L, Albumin 1.0L, Globulin 4.0, Albumin/Globulin Ratio 0.2L, Random Vancomycin Level [Pending] 11/18/19 07:17: Arterial Blood pH 7.349L, Arterial Blood Partial Pressure CO2 37.0, Arterial Blood Partial Pressure O2 245.5H, Arterial Blood HCO3 19.9L, Arterial Blood Oxygen Saturation 98.8, Arterial Blood Base Excess -5.2L, Michael Test Positive Height (Feet): 6 Height (Inches): 0.00 Weight (Pounds): 130 General Appearance: lethargic EENT: normal ENT inspection Neck: normal alignment Cardiovascular: normal rate, regular rhythm Respiratory/Chest: no respiratory distress, no accessory muscle use Extremities: normal inspection Skin: normal pigmentation Juan Singh DO Nov 18, 2019 08:02
[2019-11-18 08:47] LABS: PHOSPHORUS 6.1 MG/DL (2.5-4.9)
[2019-11-18] MEDS ORDERED: Tamsulosin 0.4mg cap ORAL SCH (09:00)
[2019-11-18] MEDS ORDERED: Ascorbic Acid 500mg tab GT SCH (09:00)
[2019-11-18] MEDS: Acetaminophen 650mg/20.3ml GT PRN ×2 (09:13→17:44)
[2019-11-18] MEDS: Vancomycin oral 125mg/2.5ml NG SCH ×4 (09:13→20:30)
[2019-11-18] MEDS: Heparin 5000 units/ml inj SUBQ SCH ×2 (09:15→20:31)
[2019-11-18] MEDS ORDERED: Vancomycin 1gm in D5W 275ml IVPB SCH (10:00)
[2019-11-18] MEDS: Norepinephrine Bitartrate 8 MG in D5W 500ml 550 ML IV SCH ×2 (10:00→17:44)
--- NOTE | 2019-11-18 11:47 | Hematology/Onc Progress Note ---
Assessment/Plan Assessment/Plan Assessment and Recs # Leukocytosis/elevated white blood cell count, unspecified likely related to underlying stress reaction, smoking v more likely infection, in this case with pna and COVID19++++++++ --> have reviewed peripheral smear and bandemia/neutrophilia noted --> continue antibiotics if they have been started by ID team --> monitor for resolution --> wbc 35k-->31.2-->25 --> abx/antivral: remdesivir/vanc/cefepime # Thrombocytosis - if plt count >400k, most usually is a reactive process and will improve once exacerbant removed as well --> in this case due to underlying infection --> plt trend 646k-->672 -->547 # Anemia of chronic disease due to underlying chronic medical issues, multifactorial v Gi bleed --> Anemia workup has been ordered, rule out gi bleed -> ferritin 1339 --> No evidence of hemolysis is noted, peripheral smear has been reviewed. --> Hgb goal >7. Transfuse prn. --> Epogen or iron at this time is not particularly indicated --> Medications have been reviewed --> low threshold for gi evaluation in case has occult + --> bone marrow biopsy is not indicated given the other more likely causes --> hgb 9.5-->9.8->8.8 --> ddimer remains elevated currently # Acute hypoxic resp failure- on NRB 15L- 2ry to COVID19 --> per id and pulm recs --> breathing treatments and rep cxr --> 11/15 cxr: New/increased infiltrates at the left lateral lung base # UTI c/w bacteremia --> abx per id # Cdiff colitis # MONICA, improving # Deep tissue injury (sacrum, L heel) # HTN # Dm2 # MDD # Dysphagia s/p GT # malnutrition # decubitus ulcer # non verbal # 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 Greatly appreciate consultation. Subjective Allergies: Coded Allergies: No Known Allergies (Unverified , 09/16/19) All Systems: reviewed and negative except above Subjective 11/15 tele, no acute events, cxr and labs reviewed, nrb 15l, remdesivir 11/16 remains on iso, breathing is improved, no night sweats 11/17 remains with fever, cooling blankets, labs noted, no bleed hgb 8.8 Objective Objective Current Medications Medications (Trade) Dose Ordered Sig/Leonor Route PRN Reason Start Time Stop Time Status Last Admin Dose Admin Acetaminophen (Tylenol) 650 mg Q4H PRN GT fever 11/18/19 03:00 12/11/19 02:59 11/18/19 09:13 Ascorbic Acid (Vitamin C) 500 mg DAILY GT 11/18/19 09:00 12/16/19 08:59 11/18/19 09:13 Cefepime HCl 1 gm/ Dextrose 55 ml @ 110 mls/hr Q24H IV 11/18/19 03:00 11/20/19 23:59 11/18/19 03:54 Heparin Sodium (Porcine) (Heparin 5000 units/ml) 5,000 units EVERY 12 HOURS SUBQ 11/18/19 09:00 12/26/19 08:59 11/18/19 09:15 Metronidazole 100 ml @ 100 mls/hr Q8HR IVPB 11/18/19 06:00 11/24/19 23:59 11/18/19 05:16 Mirtazapine (Remeron) 7.5 mg BEDTIME GT 11/18/19 21:00 02/09/20 20:59 Nitroglycerin (Ntg) 0.4 mg Q5M PRN SL Prn Chest Pain 11/18/19 03:00 12/11/19 08:59 Norepinephrine Bitartrate 8 mg/ Dextrose 558 ml @ 0 mls/hr Q24H IV 11/18/19 10:00 12/18/19 09:59 11/18/19 10:00 Ondansetron HCl (Zofran) 4 mg Q6H PRN IVP Nausea & Vomiting 11/18/19 03:00 12/11/19 08:59 Phenylephrine HCl 50 mg/Dextrose 250 ml @ 0 mls/hr Q24H IV 11/18/19 03:15 12/18/19 03:14 11/18/19 10:46 Polyethylene Glycol (Miralax) 17 gm DAILYPRN PRN GT Constipation 11/18/19 03:15 12/11/19 02:59 Promethazine HCl/ Codeine (Phenergan with Codeine) 5 ml Q4H PRN GT For Cough 11/18/19 03:15 12/11/19 03:14 Remdesivir 100 mg/ Sodium Chloride 250 ml @ 250 mls/hr Q24H IV 11/18/19 18:00 11/18/19 18:59 Sodium Chloride 250 ml @ 0 mls/hr Q0M IV 11/18/19 03:00 12/18/19 02:59 Sodium Chloride 1,000 ml @ 250 mls/hr Q4H IV 11/18/19 06:00 12/18/19 05:59 11/18/19 10:00 Tamsulosin HCl (Flomax) 0.4 mg DAILY ORAL 11/18/19 09:00 12/11/19 08:59 11/18/19 09:13 Temazepam (Restoril) 15 mg HSPRN PRN NG Insomnia 11/18/19 09:00 11/26/19 08:59 Vancomycin HCl (Firvanq) 125 mg FOUR TIMES A DAY NG 11/18/19 09:00 11/26/19 23:59 11/18/19 09:13 Vancomycin HCl (Vanco pharmacy to dose) 1 ea DAILY PRN MISC Per rx protocol 11/18/19 09:00 12/11/19 08:59 Last 24 Hour Vital Signs Date Time Temp Pulse Resp B/P (MAP) Pulse Ox O2 Delivery O2 Flow Rate FiO2 11/18/19 11:30 86 27 153/56 (88) 100 11/18/19 11:03 88 31 100 11/18/19 11:00 88 26 158/56 (90) 100 11/18/19 11:00 153/59 11/18/19 10:46 92 71/41 11/18/19 10:30 97 26 71/41 (51) 100 11/18/19 10:00 145/61 11/18/19 10:00 90 27 146/57 (86) 100 11/18/19 09:43 101.8 11/18/19 09:30 92 31 148/62 (90) 100 11/18/19 09:00 80 30 152/61 (91) 100 11/18/19 09:00 148/59 11/18/19 08:53 151/59 11/18/19 08:30 81 29 146/59 (88) 100 11/18/19 08:00 101.8 89 31 147/61 (89) 100 11/18/19 08:00 150/58 11/18/19 08:00 Mechanical Ventilator 11/18/19 07:17 84 31 100 11/18/19 07:00 91 17 149/61 (90) 100 11/18/19 07:00 149/61 11/18/19 06:28 80 143/57 11/18/19 06:00 141/60 11/18/19 06:00 85 17 141/60 (87) 100 11/18/19 05:15 111/53 11/18/19 05:00 74 16 99/53 (68) 100 11/18/19 04:00 96 11/18/19 04:00 Mechanical Ventilator 11/18/19 04:00 100.0 96 17 99/53 (68) 100 11/18/19 03:47 104 31 100 11/18/19 03:45 99 17 98/56 (70) 100 11/18/19 03:30 102 17 85/51 (62) 100 11/18/19 03:18 62/39 11/18/19 03:17 101 54/36 11/18/19 03:15 104 17 62/39 (47) 100 11/18/19 03:00 100 16 39/17 (24) 100 11/18/19 02:45 97 16 39/17 (24) 90 11/18/19 02:30 95.6 105 16 84/60 (68) 90 11/18/19 00:00 116 11/18/19 00:00 97.4 61 21 109/51 (70) 100 11/17/19 21:00 Venturi Mask 10.0 11/17/19 20:16 99 Non-Rebreather 14.0 55 11/17/19 20:00 106 11/17/19 20:00 98.6 62 21 99/57 (71) 100 11/17/19 18:04 97 Non-Rebreather 14.0 55 11/17/19 17:51 117 108/62 11/17/19 16:00 117 11/17/19 16:00 98.4 104 20 108/62 (77) 96 11/17/19 12:00 98.2 20 106/52 (70) 98 11/17/19 12:00 119 11/17/19 09:00 Non-Rebreather 10.0 11/17/19 08:00 97.8 102 20 105/48 (67) 98 11/17/19 08:00 111 11/17/19 04:00 98.8 122 26 106/49 (68) 95 11/17/19 04:00 115 11/17/19 00:00 105 11/17/19 00:00 99.9 108 24 118/45 (69) 100 11/16/19 21:05 Non-Rebreather 10.0 11/16/19 21:00 96 Non-Rebreather 15.0 100 11/16/19 20:00 109 11/16/19 20:00 96.0 102 19 119/60 (79) 100 11/16/19 16:00 116 11/16/19 16:00 98.4 106 18 109/64 (79) 100 11/16/19 12:00 98.4 101 19 129/71 (90) 98 11/16/19 12:00 115 Intake and Output 11/17/19 11/18/19 19:00 07:00 Intake Total 4668.4 ml Output Total 1200 ml 200 ml Balance -1200 ml 4468.4 ml IV Total 4668.4 ml Tube Feeding 0 ml Output Urine Total 1200 ml 200 ml # Voids 3 Labs Test 11/16/19 07:45 11/17/19 06:00 11/18/19 03:30 11/18/19 05:00 White Blood Count 31.2 K/UL (4.8-10.8) 25.3 K/UL (4.8-10.8) 30.7 K/UL (4.8-10.8) Red Blood Count 3.56 M/UL (4.70-6.10) 3.39 M/UL (4.70-6.10) 3.17 M/UL (4.70-6.10) Hemoglobin 9.8 G/DL (14.2-18.0) 9.8 G/DL (14.2-18.0) 8.8 G/DL (14.2-18.0) Hematocrit 29.5 % (42.0-52.0) 27.8 % (42.0-52.0) 27.1 % (42.0-52.0) Mean Corpuscular Volume 83 FL (80-99) 82 FL (80-99) 86 FL (80-99) Mean Corpuscular Hemoglobin 27.6 PG (27.0-31.0) 28.9 PG (27.0-31.0) 27.8 PG (27.0-31.0) Mean Corpuscular Hemoglobin Concent 33.4 G/DL (32.0-36.0) 35.3 G/DL (32.0-36.0) 32.5 G/DL (32.0-36.0) Red Cell Distribution Width 12.9 % (11.6-14.8) 12.9 % (11.6-14.8) 13.7 % (11.6-14.8) Platelet Count 672 K/UL (150-450) 606 K/UL (150-450) 547 K/UL (150-450) Mean Platelet Volume 5.7 FL (6.5-10.1) 5.7 FL (6.5-10.1) 5.5 FL (6.5-10.1) Neutrophils (%) (Auto) % (45.0-75.0) % (45.0-75.0) % (45.0-75.0) Lymphocytes (%) (Auto) % (20.0-45.0) % (20.0-45.0) % (20.0-45.0) Monocytes (%) (Auto) % (1.0-10.0) % (1.0-10.0) % (1.0-10.0) Eosinophils (%) (Auto) % (0.0-3.0) % (0.0-3.0) % (0.0-3.0) Basophils (%) (Auto) % (0.0-2.0) % (0.0-2.0) % (0.0-2.0) Differential Total Cells Counted 100 100 100 Neutrophils % (Manual) 74 % (45-75) 77 % (45-75) 73 % (45-75) Lymphocytes % (Manual) 6 % (20-45) 13 % (20-45) 6 % (20-45) Monocytes % (Manual) 2 % (1-10) 2 % (1-10) 2 % (1-10) Eosinophils % (Manual) 0 % (0-3) 0 % (0-3) 0 % (0-3) Basophils % (Manual) 0 % (0-2) 0 % (0-2) 0 % (0-2) Metamyelocytes % 2 % (0-0) 1 % (0-0) Myelocytes % 5 % (0-0) 3 % (0-0) 7 % (0-0) Band Neutrophils 11 % (0-8) 5 % (0-8) 11 % (0-8) Platelet Estimate Increased Increased Increased Platelet Morphology Normal Normal Normal Hypochromasia 1+ 1+ Sodium Level 149 MMOL/L (136-145) 149 MMOL/L (136-145) 150 MMOL/L (136-145) Potassium Level 5.2 MMOL/L (3.5-5.1) 4.3 MMOL/L (3.5-5.1) 4.3 MMOL/L (3.5-5.1) Chloride Level 115 MMOL/L (98-107) 114 MMOL/L (98-107) 114 MMOL/L (98-107) Carbon Dioxide Level 27 MMOL/L (21-32) 23 MMOL/L (21-32) 21 MMOL/L (21-32) Anion Gap 7 mmol/L (5-15) 12 mmol/L (5-15) 15 mmol/L (5-15) Blood Urea Nitrogen 66 mg/dL (7-18) 58 mg/dL (7-18) 57 mg/dL (7-18) Creatinine 1.5 MG/DL (0.55-1.30) 1.3 MG/DL (0.55-1.30) 1.8 MG/DL (0.55-1.30) Estimat Glomerular Filtration Rate 46.0 mL/min (>60) 54.3 mL/min (>60) 37.3 mL/min (>60) Glucose Level 174 MG/DL (74-106) 159 MG/DL (74-106) 191 MG/DL (74-106) Uric Acid 9.5 MG/DL (2.6-7.2) 9.2 MG/DL (2.6-7.2) 9.9 MG/DL (2.6-7.2) Calcium Level 8.2 MG/DL (8.5-10.1) 7.7 MG/DL (8.5-10.1) 7.3 MG/DL (8.5-10.1) Phosphorus Level 5.1 MG/DL (2.5-4.9) 3.0 MG/DL (2.5-4.9) 6.1 MG/DL (2.5-4.9) Magnesium Level 3.3 MG/DL (1.8-2.4) 2.7 MG/DL (1.8-2.4) 2.6 MG/DL (1.8-2.4) Total Bilirubin 0.3 MG/DL (0.2-1.0) 0.2 MG/DL (0.2-1.0) 0.2 MG/DL (0.2-1.0) Direct Bilirubin < 0.1 MG/DL (0.0-0.3) < 0.1 MG/DL (0.0-0.3) 0.1 MG/DL (0.0-0.3) Aspartate Amino Transf (AST/SGOT) 12 U/L (15-37) 15 U/L (15-37) 45 U/L (15-37) Alanine Aminotransferase (ALT/SGPT) 15 U/L (12-78) 11 U/L (12-78) 19 U/L (12-78) Alkaline Phosphatase 86 U/L (46-116) 88 U/L (46-116) 95 U/L (46-116) Pro-B-Type Natriuretic Peptide 1918 pg/mL (0-125) 2018 pg/mL (0-125) Total Protein 5.8 G/DL (6.4-8.2) 6.0 G/DL (6.4-8.2) 5.0 G/DL (6.4-8.2) Albumin 1.2 G/DL (3.4-5.0) 1.3 G/DL (3.4-5.0) 1.0 G/DL (3.4-5.0) Globulin 4.6 g/dL 4.7 g/dL 4.0 g/dL Albumin/Globulin Ratio 0.3 (1.0-2.7) 0.3 (1.0-2.7) 0.2 (1.0-2.7) Random Vancomycin Level 28.9 ug/mL 16.7 ug/mL Erythrocyte Sedimentation Rate 115 MM/HR (0-20) C-Reactive Protein, Quantitative 42.3 mg/dL (0.00-0.90) Arterial Blood pH 7.001 (7.350-7.450) Arterial Blood Partial Pressure CO2 73.7 mmHg (35.0-45.0) Arterial Blood Partial Pressure O2 217.1 mmHg (75.0-100.0) Arterial Blood HCO3 17.8 mmol/L (22.0-26.0) Arterial Blood Oxygen Saturation 98.3 % (95-100) Arterial Blood Base Excess -13.3 (-2-2) Michael Test Positive Troponin I 0.038 ng/mL (0.000-0.056) Test 11/18/19 07:17 Arterial Blood pH 7.349 (7.350-7.450) Arterial Blood Partial Pressure CO2 37.0 mmHg (35.0-45.0) Arterial Blood Partial Pressure O2 245.5 mmHg (75.0-100.0) Arterial Blood HCO3 19.9 mmol/L (22.0-26.0) Arterial Blood Oxygen Saturation 98.8 % (95-100) Arterial Blood Base Excess -5.2 (-2-2) Michael Test Positive Height (Feet): 6 Height (Inches): 0.00 Weight (Pounds): 130 Objective PE General: alert, chronically Ill Heent: nc, at Neck: full range of motion, supple, no meningismus Respiratory: chest non-tender, decreased breath sounds, crackles Cardiovascular: no murmur, tachycardia Gastrointestinal: normal bowel sounds, non tender,+peg Musculoskeletal: back normal, normal range of motion, gait/station normal Neurologic: no pronator Deng Flowers MD Nov 18, 2019 11:47
[2019-11-18] MEDS ORDERED: LORazepam Inj 2mg/ml 1ml IV PRN (12:10)
[2019-11-18] MEDS ORDERED: Morphine Sulfate 4mg/ml Inj (IV USE ONLY) IVP PRN (12:10)
--- NOTE | 2019-11-18 12:15 | Pulmonolgy Critical Care Note ---
Critical Care - Asmt/Plan Problems: (1) Cardiac arrest (2) Acute respiratory failure (3) ARF (acute renal failure) (4) Aspiration pneumonia (5) Ventricular tachyarrhythmia (6) 2019 novel coronavirus disease (COVID-19) (7) DM (diabetes mellitus) Respiratory: monitor respiratory rate, adjust FIO2, CXR Cardiac: start pressors, continue pressors - cut Neosynephrine to half to see if he tolerates it Renal: F/U I&O Infectious Disease: check cultures, continue antibiotics Gastrointestinal: continue feedings/current rate Endocrine: monitor blood sugar Hematologic: monitor H/H, transfuse if hgb<8.5 Neurologic: PRN Ativan, PRN Morphine Affect: PRN ativan Prophylaxis: Protonix Notes Reviewed: research staff member, cardio 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, consultants, shelter case managertransition manager - Objective Last 24 Hour Vital Signs Date Time Temp Pulse Resp B/P (MAP) Pulse Ox O2 Delivery O2 Flow Rate FiO2 11/18/19 11:30 86 27 153/56 (88) 100 11/18/19 11:03 88 31 100 11/18/19 11:00 88 26 158/56 (90) 100 11/18/19 11:00 153/59 11/18/19 10:46 92 71/41 11/18/19 10:30 97 26 71/41 (51) 100 11/18/19 10:00 145/61 11/18/19 10:00 90 27 146/57 (86) 100 11/18/19 09:43 101.8 11/18/19 09:30 92 31 148/62 (90) 100 11/18/19 09:00 80 30 152/61 (91) 100 11/18/19 09:00 148/59 11/18/19 08:53 151/59 11/18/19 08:30 81 29 146/59 (88) 100 11/18/19 08:00 101.8 89 31 147/61 (89) 100 11/18/19 08:00 150/58 11/18/19 08:00 Mechanical Ventilator 11/18/19 07:17 84 31 100 11/18/19 07:00 91 17 149/61 (90) 100 11/18/19 07:00 149/61 11/18/19 06:28 80 143/57 11/18/19 06:00 141/60 11/18/19 06:00 85 17 141/60 (87) 100 11/18/19 05:15 111/53 11/18/19 05:00 74 16 99/53 (68) 100 11/18/19 04:00 96 11/18/19 04:00 Mechanical Ventilator 11/18/19 04:00 100.0 96 17 99/53 (68) 100 11/18/19 03:47 104 31 100 11/18/19 03:45 99 17 98/56 (70) 100 11/18/19 03:30 102 17 85/51 (62) 100 11/18/19 03:18 62/39 11/18/19 03:17 101 54/36 11/18/19 03:15 104 17 62/39 (47) 100 11/18/19 03:00 100 16 39/17 (24) 100 11/18/19 02:45 97 16 39/17 (24) 90 11/18/19 02:30 95.6 105 16 84/60 (68) 90 11/18/19 00:00 116 11/18/19 00:00 97.4 61 21 109/51 (70) 100 11/17/19 21:00 Venturi Mask 10.0 11/17/19 20:16 99 Non-Rebreather 14.0 55 11/17/19 20:00 106 11/17/19 20:00 98.6 62 21 99/57 (71) 100 11/17/19 18:04 97 Non-Rebreather 14.0 55 11/17/19 17:51 117 108/62 11/17/19 16:00 117 11/17/19 16:00 98.4 104 20 108/62 (77) 96 Status: sedated Condition: critical HEENT: atraumatic, normocephalic Lungs: rales, rhonchi Heart: HR/BP unstable Abdomen: soft Extremities: no C/C/E Critical Care - Subjective ROS Limited/Unobtainable: Yes Interval Events: 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 Currently on maxed dose of Levophed and neosynephrine Condition: critical EKG Rhythm: Sinus Rhythm FI02: 100 Vent Support Breath Rate: 20 Vent Support Mode: AC Vent Tidal Volume: 550 Sputum Amount: Small PEEP: 5.0 PIP: 40 Tube Feeding Amount: 0 I&O: Intake and Output 11/17/19 11/18/19 18:59 06:59 Intake Total 4267.5 ml Output Total 1200 ml 100 ml Balance -1200 ml 4167.5 ml IV Total 4267.5 ml Tube Feeding 0 ml Output Urine Total 1200 ml 100 ml # Voids 3 CXR: ET in good position, RLL infiltrate Labs: Laboratory Tests Test 11/18/19 03:30 11/18/19 05:00 11/18/19 07:17 Arterial Blood pH 7.001 (7.350-7.450) 7.349 (7.350-7.450) Arterial Blood Partial Pressure CO2 73.7 mmHg (35.0-45.0) *H 37.0 mmHg (35.0-45.0) Arterial Blood Partial Pressure O2 217.1 mmHg (75.0-100.0) H 245.5 mmHg (75.0-100.0) H Arterial Blood HCO3 17.8 mmol/L (22.0-26.0) *L 19.9 mmol/L (22.0-26.0) L Arterial Blood Oxygen Saturation 98.3 % (95-100) 98.8 % (95-100) Arterial Blood Base Excess -13.3 (-2-2) *L -5.2 (-2-2) L Michael Test Positive Positive White Blood Count 30.7 K/UL (4.8-10.8) *H Red Blood Count 3.17 M/UL (4.70-6.10) L Hemoglobin 8.8 G/DL (14.2-18.0) L Hematocrit 27.1 % (42.0-52.0) L Mean Corpuscular Volume 86 FL (80-99) Mean Corpuscular Hemoglobin 27.8 PG (27.0-31.0) Mean Corpuscular Hemoglobin Concent 32.5 G/DL (32.0-36.0) Red Cell Distribution Width 13.7 % (11.6-14.8) Platelet Count 547 K/UL (150-450) H Mean Platelet Volume 5.5 FL (6.5-10.1) L Neutrophils (%) (Auto) % (45.0-75.0) Lymphocytes (%) (Auto) % (20.0-45.0) Monocytes (%) (Auto) % (1.0-10.0) Eosinophils (%) (Auto) % (0.0-3.0) Basophils (%) (Auto) % (0.0-2.0) Differential Total Cells Counted 100 Neutrophils % (Manual) 73 % (45-75) Lymphocytes % (Manual) 6 % (20-45) L Monocytes % (Manual) 2 % (1-10) Eosinophils % (Manual) 0 % (0-3) Basophils % (Manual) 0 % (0-2) Metamyelocytes % 1 % (0-0) H Myelocytes % 7 % (0-0) H Band Neutrophils 11 % (0-8) H Platelet Estimate Increased H Platelet Morphology Normal Hypochromasia 1+ Sodium Level 150 MMOL/L (136-145) H Potassium Level 4.3 MMOL/L (3.5-5.1) Chloride Level 114 MMOL/L (98-107) H Carbon Dioxide Level 21 MMOL/L (21-32) Anion Gap 15 mmol/L (5-15) Blood Urea Nitrogen 57 mg/dL (7-18) H Creatinine 1.8 MG/DL (0.55-1.30) H Estimat Glomerular Filtration Rate 37.3 mL/min (>60) Glucose Level 191 MG/DL (74-106) H Uric Acid 9.9 MG/DL (2.6-7.2) H Calcium Level 7.3 MG/DL (8.5-10.1) L Phosphorus Level 6.1 MG/DL (2.5-4.9) H Magnesium Level 2.6 MG/DL (1.8-2.4) H Total Bilirubin 0.2 MG/DL (0.2-1.0) Direct Bilirubin 0.1 MG/DL (0.0-0.3) Aspartate Amino Transf (AST/SGOT) 45 U/L (15-37) H Alanine Aminotransferase (ALT/SGPT) 19 U/L (12-78) Alkaline Phosphatase 95 U/L (46-116) Troponin I 0.038 ng/mL (0.000-0.056) Total Protein 5.0 G/DL (6.4-8.2) L Albumin 1.0 G/DL (3.4-5.0) L Globulin 4.0 g/dL Albumin/Globulin Ratio 0.2 (1.0-2.7) L Random Vancomycin Level 16.7 ug/mL Ayana Ndiaye MD Nov 18, 2019 12:15
--- NOTE | 2019-11-18 12:19 | Infectious Diseases Prog Note ---
Assessment/Plan Assessment/Plan Assessment: PEA arrest> unstable SVT s/p cardioversion 11/17 Septic shock- maxed on 2 pressors 11/17 Fever, recurrent Leukocytosis; worsened Pneumonia Acute hypoxic resp failure- sp NRB 15L, now VDRF 11/17 - 2ry to COVID19 and superimposed bacterial PNA -11/17 CXR: Bilateral lower lobe atelectasis/infiltrates, slightly increased. No large pleural effusions. -11/15 CXR: New/increased infiltrates at the left lateral lung base -11/11 CXR: Mild interstitial thickening is slightly improved. -11/10 CXR: Hazy basilar infiltrates left greater than right. sp cx PsA (blackwood S), P.mirabilis (blackwood S), MRSA (S Vanco CARLOS 1, bactrim; R tetracycline ) -11/10 SARS-COV2 positive UTI c/w bacteremia -u/a wbc 5-10, nit neg, leuk +1, RBC TNCT; ucx 10-20k E. faecalis (S amp, vanco) -11/10 Bcx 2/4 E. faecalis (S Vancomycin, AMP) CONS bacteremia- likely contaminant -11/10 Bcx 2/4 S. 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 [facility] resident ([facility]) VRE colonized MRSA colonized Plan: -Continue empiric IV Vancomycin #8 for MRSA PNA -Switch Cefepime #8 to Meropenem given worsening hemodynamics -Cont PO Vancomycin 125mg qid #11/26 and add IV Flagyl #09/22-14 for severe Cdiff -On Remdesivir (11/13- )per [facility] [place] pharmacy protocol -f/u cx -Monitor CBC/CMP, temperature -COVID19 isolation and testing -PEG care -wound care per surgical team -aspiration precautions -f/u repeat Bcx -will need 2d echo later on this admission -poor px -repeat cultures Thank you for consulting [facility]. Will continue to follow along with you. Discussed with RN and Lee Ann from Pharmacy Subjective Allergies: Coded Allergies: No Known Allergies (Unverified , 09/16/19) Subjective patient had PEA arrest> unstable SVT s/p cardioversion this am was intubated and transferred to ICU; had significant gastric contents in the pharynx. Fio2 100% Tm 101.8 maxed on levo and roland wbc increased Objective Vital Signs Last 24 Hour Vital Signs Date Time Temp Pulse Resp B/P (MAP) Pulse Ox O2 Delivery O2 Flow Rate FiO2 11/18/19 11:30 86 27 153/56 (88) 100 11/18/19 11:03 88 31 100 11/18/19 11:00 88 26 158/56 (90) 100 11/18/19 11:00 153/59 11/18/19 10:46 92 71/41 11/18/19 10:30 97 26 71/41 (51) 100 11/18/19 10:00 145/61 11/18/19 10:00 90 27 146/57 (86) 100 11/18/19 09:43 101.8 11/18/19 09:30 92 31 148/62 (90) 100 11/18/19 09:00 80 30 152/61 (91) 100 11/18/19 09:00 148/59 11/18/19 08:53 151/59 11/18/19 08:30 81 29 146/59 (88) 100 11/18/19 08:00 101.8 89 31 147/61 (89) 100 11/18/19 08:00 150/58 11/18/19 08:00 Mechanical Ventilator 11/18/19 07:17 84 31 100 11/18/19 07:00 91 17 149/61 (90) 100 11/18/19 07:00 149/61 11/18/19 06:28 80 143/57 11/18/19 06:00 141/60 11/18/19 06:00 85 17 141/60 (87) 100 11/18/19 05:15 111/53 11/18/19 05:00 74 16 99/53 (68) 100 11/18/19 04:00 96 11/18/19 04:00 Mechanical Ventilator 11/18/19 04:00 100.0 96 17 99/53 (68) 100 11/18/19 03:47 104 31 100 11/18/19 03:45 99 17 98/56 (70) 100 11/18/19 03:30 102 17 85/51 (62) 100 11/18/19 03:18 62/39 11/18/19 03:17 101 54/36 11/18/19 03:15 104 17 62/39 (47) 100 11/18/19 03:00 100 16 39/17 (24) 100 11/18/19 02:45 97 16 39/17 (24) 90 11/18/19 02:30 95.6 105 16 84/60 (68) 90 11/18/19 00:00 116 11/18/19 00:00 97.4 61 21 109/51 (70) 100 11/17/19 21:00 Venturi Mask 10.0 11/17/19 20:16 99 Non-Rebreather 14.0 55 11/17/19 20:00 106 11/17/19 20:00 98.6 62 21 99/57 (71) 100 11/17/19 18:04 97 Non-Rebreather 14.0 55 11/17/19 17:51 117 108/62 11/17/19 16:00 117 11/17/19 16:00 98.4 104 20 108/62 (77) 96 Height (Feet): 6 Height (Inches): 0.00 Weight (Pounds): 130 Objective Gen: critically ill HEENT: ETT in place Lungs: no tacypnea or use of accessory muscles Neuro: lethargic Laboratory Tests Test 11/18/19 03:30 11/18/19 05:00 11/18/19 07:17 Arterial Blood pH 7.001 (7.350-7.450) 7.349 (7.350-7.450) Arterial Blood Partial Pressure CO2 73.7 mmHg (35.0-45.0) *H 37.0 mmHg (35.0-45.0) Arterial Blood Partial Pressure O2 217.1 mmHg (75.0-100.0) H 245.5 mmHg (75.0-100.0) H Arterial Blood HCO3 17.8 mmol/L (22.0-26.0) *L 19.9 mmol/L (22.0-26.0) L Arterial Blood Oxygen Saturation 98.3 % (95-100) 98.8 % (95-100) Arterial Blood Base Excess -13.3 (-2-2) *L -5.2 (-2-2) L Michael Test Positive Positive White Blood Count 30.7 K/UL (4.8-10.8) *H Red Blood Count 3.17 M/UL (4.70-6.10) L Hemoglobin 8.8 G/DL (14.2-18.0) L Hematocrit 27.1 % (42.0-52.0) L Mean Corpuscular Volume 86 FL (80-99) Mean Corpuscular Hemoglobin 27.8 PG (27.0-31.0) Mean Corpuscular Hemoglobin Concent 32.5 G/DL (32.0-36.0) Red Cell Distribution Width 13.7 % (11.6-14.8) Platelet Count 547 K/UL (150-450) H Mean Platelet Volume 5.5 FL (6.5-10.1) L Neutrophils (%) (Auto) % (45.0-75.0) Lymphocytes (%) (Auto) % (20.0-45.0) Monocytes (%) (Auto) % (1.0-10.0) Eosinophils (%) (Auto) % (0.0-3.0) Basophils (%) (Auto) % (0.0-2.0) Differential Total Cells Counted 100 Neutrophils % (Manual) 73 % (45-75) Lymphocytes % (Manual) 6 % (20-45) L Monocytes % (Manual) 2 % (1-10) Eosinophils % (Manual) 0 % (0-3) Basophils % (Manual) 0 % (0-2) Metamyelocytes % 1 % (0-0) H Myelocytes % 7 % (0-0) H Band Neutrophils 11 % (0-8) H Platelet Estimate Increased H Platelet Morphology Normal Hypochromasia 1+ Sodium Level 150 MMOL/L (136-145) H Potassium Level 4.3 MMOL/L (3.5-5.1) Chloride Level 114 MMOL/L (98-107) H Carbon Dioxide Level 21 MMOL/L (21-32) Anion Gap 15 mmol/L (5-15) Blood Urea Nitrogen 57 mg/dL (7-18) H Creatinine 1.8 MG/DL (0.55-1.30) H Estimat Glomerular Filtration Rate 37.3 mL/min (>60) Glucose Level 191 MG/DL (74-106) H Uric Acid 9.9 MG/DL (2.6-7.2) H Calcium Level 7.3 MG/DL (8.5-10.1) L Phosphorus Level 6.1 MG/DL (2.5-4.9) H Magnesium Level 2.6 MG/DL (1.8-2.4) H Total Bilirubin 0.2 MG/DL (0.2-1.0) Direct Bilirubin 0.1 MG/DL (0.0-0.3) Aspartate Amino Transf (AST/SGOT) 45 U/L (15-37) H Alanine Aminotransferase (ALT/SGPT) 19 U/L (12-78) Alkaline Phosphatase 95 U/L (46-116) Troponin I 0.038 ng/mL (0.000-0.056) Total Protein 5.0 G/DL (6.4-8.2) L Albumin 1.0 G/DL (3.4-5.0) L Globulin 4.0 g/dL Albumin/Globulin Ratio 0.2 (1.0-2.7) L Random Vancomycin Level 16.7 ug/mL Current Medications Medications (Trade) Dose Ordered Sig/Leonor Route PRN Reason Start Time Stop Time Status Last Admin Dose Admin Acetaminophen (Tylenol) 650 mg Q4H PRN GT fever 11/18/19 03:00 12/11/19 02:59 11/18/19 09:13 Ascorbic Acid (Vitamin C) 500 mg DAILY GT 11/18/19 09:00 12/16/19 08:59 11/18/19 09:13 Cefepime HCl 1 gm/ Dextrose 55 ml @ 110 mls/hr Q24H IV 11/18/19 03:00 11/20/19 23:59 11/18/19 03:54 Heparin Sodium (Porcine) (Heparin 5000 units/ml) 5,000 units EVERY 12 HOURS SUBQ 11/18/19 09:00 12/26/19 08:59 11/18/19 09:15 Metronidazole 100 ml @ 100 mls/hr Q8HR IVPB 11/18/19 06:00 11/24/19 23:59 11/18/19 05:16 Mirtazapine (Remeron) 7.5 mg BEDTIME GT 11/18/19 21:00 02/09/20 20:59 Nitroglycerin (Ntg) 0.4 mg Q5M PRN SL Prn Chest Pain 11/18/19 03:00 12/11/19 08:59 Norepinephrine Bitartrate 8 mg/ Dextrose 558 ml @ 0 mls/hr Q24H IV 11/18/19 10:00 12/18/19 09:59 11/18/19 10:00 Ondansetron HCl (Zofran) 4 mg Q6H PRN IVP Nausea & Vomiting 11/18/19 03:00 12/11/19 08:59 Phenylephrine HCl 50 mg/Dextrose 250 ml @ 0 mls/hr Q24H IV 11/18/19 03:15 12/18/19 03:14 11/18/19 10:46 Polyethylene Glycol (Miralax) 17 gm DAILYPRN PRN GT Constipation 11/18/19 03:15 12/11/19 02:59 Promethazine HCl/ Codeine (Phenergan with Codeine) 5 ml Q4H PRN GT For Cough 11/18/19 03:15 12/11/19 03:14 Remdesivir 100 mg/ Sodium Chloride 250 ml @ 250 mls/hr Q24H IV 11/18/19 18:00 11/18/19 18:59 Sodium Chloride 250 ml @ 0 mls/hr Q0M IV 11/18/19 03:00 12/18/19 02:59 Sodium Chloride 1,000 ml @ 250 mls/hr Q4H IV 11/18/19 06:00 12/18/19 05:59 11/18/19 10:00 Tamsulosin HCl (Flomax) 0.4 mg DAILY ORAL 11/18/19 09:00 12/11/19 08:59 11/18/19 09:13 Temazepam (Restoril) 15 mg HSPRN PRN NG Insomnia 11/18/19 09:00 11/26/19 08:59 Vancomycin HCl (Firvanq) 125 mg FOUR TIMES A DAY NG 11/18/19 09:00 11/26/19 23:59 11/18/19 09:13 Vancomycin HCl (Vanco pharmacy to dose) 1 ea DAILY PRN MISC Per rx protocol 11/18/19 09:00 12/11/19 08:59 Shannon Mark M.D. Nov 18, 2019 12:19
--- NOTE | 2019-11-18 12:49 | Nephrology Progress Note ---
Assessment/Plan Problem List: (1) ARF (acute renal failure) (2) Hyperkalemia (3) DM (diabetes mellitus) (4) Suspected COVID-19 virus infection (5) Sepsis (6) Severe malnutrition Assessment: Severe hypoalbuminemia Assessment his 74-year-old male with multiple Multiple medical problem presents with respiratory symptoms and diarrhea Renal failure most likely prerenal azotemia secondary to dehydration Hyperkalemia on presentation also secondary to dehydration Sepsis pneumonia hypoxia UTI Anemia History of hypertension History of diabetes mellitus Suspected COVID-19 virus infection Hypoalbuminemia Plan C. difficile positive COVID-19 detected November 17: Intubated on ventilator in ICU. Will continue half-normal saline 100 cc an hour. Continue per pulmonary and ID. Prognosis poor. Continue to monitor renal parameters. Hydrate with half-normal saline, serum creatinine now at its lowest today. monitor electrolytes Will change the feeding to Nepro and monitor her potassium and other electrolytes Continue per ID Keep the blood pressure and blood sugar in check Monitor renal parameters Previously: Urine studies Monitor intake and output Cultures including stool for C. difficile Per orders Patient's CODE STATUS is full Subjective ROS Limited/Unobtainable: Yes Objective Objective Last 24 Hour Vital Signs Date Time Temp Pulse Resp B/P (MAP) Pulse Ox O2 Delivery O2 Flow Rate FiO2 11/18/19 11:30 86 27 153/56 (88) 100 11/18/19 11:03 88 31 100 11/18/19 11:00 88 26 158/56 (90) 100 11/18/19 11:00 153/59 11/18/19 10:46 92 71/41 11/18/19 10:30 97 26 71/41 (51) 100 11/18/19 10:00 145/61 11/18/19 10:00 90 27 146/57 (86) 100 11/18/19 09:43 101.8 11/18/19 09:30 92 31 148/62 (90) 100 11/18/19 09:00 80 30 152/61 (91) 100 11/18/19 09:00 148/59 11/18/19 08:53 151/59 11/18/19 08:30 81 29 146/59 (88) 100 11/18/19 08:00 101.8 89 31 147/61 (89) 100 11/18/19 08:00 150/58 11/18/19 08:00 Mechanical Ventilator 11/18/19 07:17 84 31 100 11/18/19 07:00 91 17 149/61 (90) 100 11/18/19 07:00 149/61 11/18/19 06:28 80 143/57 11/18/19 06:00 141/60 11/18/19 06:00 85 17 141/60 (87) 100 11/18/19 05:15 111/53 11/18/19 05:00 74 16 99/53 (68) 100 11/18/19 04:00 96 11/18/19 04:00 Mechanical Ventilator 11/18/19 04:00 100.0 96 17 99/53 (68) 100 11/18/19 03:47 104 31 100 11/18/19 03:45 99 17 98/56 (70) 100 11/18/19 03:30 102 17 85/51 (62) 100 11/18/19 03:18 62/39 11/18/19 03:17 101 54/36 11/18/19 03:15 104 17 62/39 (47) 100 11/18/19 03:00 100 16 39/17 (24) 100 11/18/19 02:45 97 16 39/17 (24) 90 11/18/19 02:30 95.6 105 16 84/60 (68) 90 11/18/19 00:00 116 11/18/19 00:00 97.4 61 21 109/51 (70) 100 11/17/19 21:00 Venturi Mask 10.0 11/17/19 20:16 99 Non-Rebreather 14.0 55 11/17/19 20:00 106 11/17/19 20:00 98.6 62 21 99/57 (71) 100 11/17/19 18:04 97 Non-Rebreather 14.0 55 11/17/19 17:51 117 108/62 11/17/19 16:00 117 11/17/19 16:00 98.4 104 20 108/62 (77) 96 Intake and Output 11/17/19 11/18/19 19:00 07:00 Intake Total 4668.4 ml Output Total 1200 ml 200 ml Balance -1200 ml 4468.4 ml IV Total 4668.4 ml Tube Feeding 0 ml Output Urine Total 1200 ml 200 ml # Voids 3 Laboratory Tests 11/18/19 03:30: Arterial Blood pH 7.001*L, Arterial Blood Partial Pressure CO2 73.7*H, Arterial Blood Partial Pressure O2 217.1H, Arterial Blood HCO3 17.8*L, Arterial Blood Oxygen Saturation 98.3, Arterial Blood Base Excess -13.3*L, Michael Test Positive 11/18/19 05:00: White Blood Count 30.7*H, Red Blood Count 3.17L, Hemoglobin 8.8L, Hematocrit 27.1L, Mean Corpuscular Volume 86, Mean Corpuscular Hemoglobin 27.8, Mean Corpuscular Hemoglobin Concent 32.5, Red Cell Distribution Width 13.7, Platelet Count 547H, Mean Platelet Volume 5.5L, Neutrophils (%) (Auto) , Lymphocytes (%) (Auto) , Monocytes (%) (Auto) , Eosinophils (%) (Auto) , Basophils (%) (Auto) , Differential Total Cells Counted 100, Neutrophils % (Manual) 73, Lymphocytes % ( Manual) 6L, Monocytes % (Manual) 2, Eosinophils % (Manual) 0, Basophils % ( Manual) 0, Metamyelocytes % 1H, Myelocytes % 7H, Band Neutrophils 11H, Platelet Estimate IncreasedH, Platelet Morphology Normal, Hypochromasia 1+, Sodium Level 150H, Potassium Level 4.3, Chloride Level 114H, Carbon Dioxide Level 21, Anion Gap 15, Blood Urea Nitrogen 57H, Creatinine 1.8H, Estimat Glomerular Filtration Rate 37.3, Glucose Level 191H, Uric Acid 9.9H, Calcium Level 7.3L, Phosphorus Level 6.1H, Magnesium Level 2.6H, Total Bilirubin 0.2, Direct Bilirubin 0.1, Aspartate Amino Transf (AST/SGOT) 45H, Alanine Aminotransferase (ALT/SGPT) 19, Alkaline Phosphatase 95, Troponin I 0.038, Total Protein 5.0L, Albumin 1.0L, Globulin 4.0, Albumin/Globulin Ratio 0.2L, Random Vancomycin Level 16.7 11/18/19 07:17: Arterial Blood pH 7.349L, Arterial Blood Partial Pressure CO2 37.0, Arterial Blood Partial Pressure O2 245.5H, Arterial Blood HCO3 19.9L, Arterial Blood Oxygen Saturation 98.8, Arterial Blood Base Excess -5.2L, Michael Test Positive Height (Feet): 6 Height (Inches): 0.00 Weight (Pounds): 130 General Appearance: lethargic EENT: other - In ICU and intubated on mechanical ventilation Cardiovascular: tachycardia Respiratory/Chest: decreased breath sounds Abdomen: distended Objective No other change Ricardo Choudhary MD Nov 18, 2019 12:49
[2019-11-18] MEDS: Meropenem 1 GM in NS 55 ML IVPB SCH ×2 (13:17→20:30)
[2019-11-18] MEDS ORDERED: D5W 275ml ONE (14:07)
[2019-11-18] MEDS ORDERED: Tubing IV Secondary IV ONE (14:07)
--- NOTE | 2019-11-18 15:05 | Surgery Progress Note ---
Surgery Progress Note Subjective Additional Comments febrile hypotensive on pressors intubated on ICU now Objective Last 24 Hour Vital Signs Date Time Temp Pulse Resp B/P (MAP) Pulse Ox O2 Delivery O2 Flow Rate FiO2 11/18/19 14:00 80 30 129/54 (79) 100 11/18/19 14:00 129/54 11/18/19 13:45 80 29 127/55 (79) 100 11/18/19 13:30 81 30 130/55 (80) 100 11/18/19 13:15 83 29 137/56 (83) 100 11/18/19 13:00 135/54 11/18/19 13:00 84 29 135/54 (81) 100 11/18/19 12:45 85 28 123/54 (77) 100 11/18/19 12:30 82 28 100/54 (69) 100 11/18/19 12:30 100/54 11/18/19 12:15 83 26 139/56 (83) 100 11/18/19 12:00 102.0 86 27 146/56 (86) 100 11/18/19 12:00 146/56 11/18/19 11:30 86 27 153/56 (88) 100 11/18/19 11:03 88 31 100 11/18/19 11:00 88 26 158/56 (90) 100 11/18/19 11:00 153/59 11/18/19 10:46 92 71/41 11/18/19 10:30 97 26 71/41 (51) 100 11/18/19 10:00 145/61 11/18/19 10:00 90 27 146/57 (86) 100 11/18/19 09:43 101.8 11/18/19 09:30 92 31 148/62 (90) 100 11/18/19 09:00 80 30 152/61 (91) 100 11/18/19 09:00 148/59 11/18/19 08:53 151/59 11/18/19 08:30 81 29 146/59 (88) 100 11/18/19 08:00 101.8 89 31 147/61 (89) 100 11/18/19 08:00 150/58 11/18/19 08:00 Mechanical Ventilator 11/18/19 07:17 84 31 100 11/18/19 07:00 91 17 149/61 (90) 100 11/18/19 07:00 149/61 11/18/19 06:28 80 143/57 11/18/19 06:00 141/60 11/18/19 06:00 85 17 141/60 (87) 100 11/18/19 05:15 111/53 11/18/19 05:00 74 16 99/53 (68) 100 11/18/19 04:00 96 11/18/19 04:00 Mechanical Ventilator 11/18/19 04:00 100.0 96 17 99/53 (68) 100 11/18/19 03:47 104 31 100 11/18/19 03:45 99 17 98/56 (70) 100 11/18/19 03:30 102 17 85/51 (62) 100 11/18/19 03:18 62/39 11/18/19 03:17 101 54/36 11/18/19 03:15 104 17 62/39 (47) 100 11/18/19 03:00 100 16 39/17 (24) 100 11/18/19 02:45 97 16 39/17 (24) 90 11/18/19 02:30 95.6 105 16 84/60 (68) 90 11/18/19 00:00 116 11/18/19 00:00 97.4 61 21 109/51 (70) 100 11/17/19 21:00 Venturi Mask 10.0 11/17/19 20:16 99 Non-Rebreather 14.0 55 11/17/19 20:00 106 11/17/19 20:00 98.6 62 21 99/57 (71) 100 11/17/19 18:04 97 Non-Rebreather 14.0 55 11/17/19 17:51 117 108/62 11/17/19 16:00 117 11/17/19 16:00 98.4 104 20 108/62 (77) 96 I&O Intake and Output 11/17/19 11/18/19 18:59 06:59 Intake Total 4267.5 ml Output Total 1200 ml 100 ml Balance -1200 ml 4167.5 ml IV Total 4267.5 ml Tube Feeding 0 ml Output Urine Total 1200 ml 100 ml # Voids 3 Dressing: other Wound: other Drains: other Cardiovascular: RSR Respiratory: decreased breath sounds Abdomen: soft, present bowel sounds Extremities: no cyanosis Laboratory Tests Test 11/18/19 03:30 11/18/19 05:00 11/18/19 07:17 Arterial Blood pH 7.001 (7.350-7.450) 7.349 (7.350-7.450) Arterial Blood Partial Pressure CO2 73.7 mmHg (35.0-45.0) *H 37.0 mmHg (35.0-45.0) Arterial Blood Partial Pressure O2 217.1 mmHg (75.0-100.0) H 245.5 mmHg (75.0-100.0) H Arterial Blood HCO3 17.8 mmol/L (22.0-26.0) *L 19.9 mmol/L (22.0-26.0) L Arterial Blood Oxygen Saturation 98.3 % (95-100) 98.8 % (95-100) Arterial Blood Base Excess -13.3 (-2-2) *L -5.2 (-2-2) L Michael Test Positive Positive White Blood Count 30.7 K/UL (4.8-10.8) *H Red Blood Count 3.17 M/UL (4.70-6.10) L Hemoglobin 8.8 G/DL (14.2-18.0) L Hematocrit 27.1 % (42.0-52.0) L Mean Corpuscular Volume 86 FL (80-99) Mean Corpuscular Hemoglobin 27.8 PG (27.0-31.0) Mean Corpuscular Hemoglobin Concent 32.5 G/DL (32.0-36.0) Red Cell Distribution Width 13.7 % (11.6-14.8) Platelet Count 547 K/UL (150-450) H Mean Platelet Volume 5.5 FL (6.5-10.1) L Neutrophils (%) (Auto) % (45.0-75.0) Lymphocytes (%) (Auto) % (20.0-45.0) Monocytes (%) (Auto) % (1.0-10.0) Eosinophils (%) (Auto) % (0.0-3.0) Basophils (%) (Auto) % (0.0-2.0) Differential Total Cells Counted 100 Neutrophils % (Manual) 73 % (45-75) Lymphocytes % (Manual) 6 % (20-45) L Monocytes % (Manual) 2 % (1-10) Eosinophils % (Manual) 0 % (0-3) Basophils % (Manual) 0 % (0-2) Metamyelocytes % 1 % (0-0) H Myelocytes % 7 % (0-0) H Band Neutrophils 11 % (0-8) H Platelet Estimate Increased H Platelet Morphology Normal Hypochromasia 1+ Sodium Level 150 MMOL/L (136-145) H Potassium Level 4.3 MMOL/L (3.5-5.1) Chloride Level 114 MMOL/L (98-107) H Carbon Dioxide Level 21 MMOL/L (21-32) Anion Gap 15 mmol/L (5-15) Blood Urea Nitrogen 57 mg/dL (7-18) H Creatinine 1.8 MG/DL (0.55-1.30) H Estimat Glomerular Filtration Rate 37.3 mL/min (>60) Glucose Level 191 MG/DL (74-106) H Uric Acid 9.9 MG/DL (2.6-7.2) H Calcium Level 7.3 MG/DL (8.5-10.1) L Phosphorus Level 6.1 MG/DL (2.5-4.9) H Magnesium Level 2.6 MG/DL (1.8-2.4) H Total Bilirubin 0.2 MG/DL (0.2-1.0) Direct Bilirubin 0.1 MG/DL (0.0-0.3) Aspartate Amino Transf (AST/SGOT) 45 U/L (15-37) H Alanine Aminotransferase (ALT/SGPT) 19 U/L (12-78) Alkaline Phosphatase 95 U/L (46-116) Troponin I 0.038 ng/mL (0.000-0.056) Total Protein 5.0 G/DL (6.4-8.2) L Albumin 1.0 G/DL (3.4-5.0) L Globulin 4.0 g/dL Albumin/Globulin Ratio 0.2 (1.0-2.7) L Random Vancomycin Level 16.7 ug/mL Plan Problems: (1) Decubitus skin ulcer Assessment & Plan: Pt presented on admission with large sacral wound. Base of wound with areas that area purple and indurated sacrococcygeal,L sacrum/L gluteus,Scattered wounds with maceration L gluteus, one wound R sacrum with Biofilm, Surrounding non-blanching erythema entire buttocks. Small dry scabbed area noted to lumbar area. Unstageable Pressure Injury L heel. Base of wound is necrotic with surrounding non-blanching erythema. Tx.plan: Apply Moisture Barrier Paste to Buttocks. Cover Sacrum, R and L gluteal cheeks with Optifoam drsgs. Change every 3 days and prn. Apply Betadine to L heel. Cover with Optifoam drsg. Change every 3 days and prn. Reposition at least every 2hours or as tolerated. Place Pillow between knees. Off-load heels with Pillow. APM/BRUNILDA Mattress overlay. DAILY ESTIMATED NEEDS: Needs based on wt loss, underweight, wound/ 59kg 30-35 kcals/kg 2801-5909 total kcals 1.25-2 g protein/kg 74-118 g total protein 25-30 mL/kg 3986-8071 total fluid mLs NUTRITION DIAGNOSIS: * Increased kcal/prot intake needs R/T wound healing, suspected recent significant wt loss as evidenced by admitted w/ wounds @ lt posterior heel, R lower back, sacrum as per photos, pending eval, suspected significant wt loss of 40lbs/ 23.7% in <5 months, currently @ 81% IBW. . * Swallowing difficulty R/T dysphagia, h/o CVA as evidenced by PEG dependent. CURRENT TF:Glucerna 1.2 @65ml/hr x24 hrs ENTERAL NUTRITION RECOMMENDATIONS: NEPRO @45ml/hr x24 hrs to provide 1080ml, 1944 kcal, 87g pro, 785ml free H2O - Rec TF change for lower K content (1145mg in Nepro @45 vs 3151mg in Glucerna 1.2 @65) - Start at 25ml/hr advance as tolerated 10ml/hr q4-6 hrs - HOB over 30 degrees - Increased H20 flush to 200ml q4 hrs ADDITIONAL RECOMMENDATIONS: 1) Calibrated bedscale wt -> per SNF: HT=59" and EM=353gyd (10/20/19) 2) Wound healing: Add Vit C 500mg QD/ or dosing per nephro Add Osbaldo BID via PEG w/ TF order 3) Monitor lytes: monitor K trend, need for renal TF (K 5.3, 5.5) 4) NISS w/ TF (h/o DM) 5) Monitor for diarrhea, rec probiotics (2) Sepsis Assessment & Plan: 74-year-old male multi-medical comorbidities admitted for respiratory deficiency currently tachypneic, leukocytosis, malnutrition, hypoalbuminemia. Complete physical exam performed identified areas of concerned given patient's comorbidities current condition high risk for deteriorationNo active infection identified from patient's wounds and likely respiratory nature. Chest x-ray reviewed. No acute surgical intervention planned at this time Preventive measures IV antibiotics per infectious disease Okay for feeding once stable respiratory Appreciate Pulm input c diff positive on vanco blood cx noted worsening leukocytosis ID abx noted heme input noted There are increasing basilar opacities on the left noted. The heart size is normal. The pleural spaces are clear. 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
[2019-11-18] MEDS ORDERED: Remdesivir 100mg 100 MG in NS 230 ML IV SCH (18:00)
--- NOTE | 2019-11-18 18:04 | Cardiology Progress Note ---
Assessment/Plan Assessment/Plan 1. covid 19 pneumonia 2. History of cerebrovascular accident. 3. History of carotid occlusion. 4. Bilateral infiltrates and pneumonia. 5. Aphasia. 6. Diabetes mellitus. 7. Hyponatremia. 8. Renal insufficiency 9. 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 asystolic arrest probably aspiration with subequent hypoxemia relasted 12. 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 sinus tachy , asystole , sinus beto cxr from today personally reviewed looks ok although radiologist think infiltrate increased on 11/15 now on 80% on the vent repeat cx neg pressor decreased from 2 to levophed only now vent support trop neg Subjective ROS Limited/Unobtainable: Yes Subjective not communicative Objective Last 24 Hour Vital Signs Date Time Temp Pulse Resp B/P (MAP) Pulse Ox O2 Delivery O2 Flow Rate FiO2 11/18/19 17:44 101/48 11/18/19 17:15 81 31 110/56 (74) 100 11/18/19 17:00 81 31 119/58 (78) 100 11/18/19 16:45 81 32 123/59 (80) 100 11/18/19 16:30 82 32 118/57 (77) 100 11/18/19 16:15 83 32 116/58 (77) 100 11/18/19 16:00 81 11/18/19 16:00 99.8 81 29 124/59 (80) 100 11/18/19 16:00 Mechanical Ventilator 11/18/19 15:45 81 22 124/60 (81) 100 11/18/19 15:30 80 31 126/58 (80) 100 11/18/19 15:15 80 32 125/59 (81) 100 11/18/19 15:00 81 32 125/59 (81) 100 11/18/19 14:46 78 32 100 11/18/19 14:45 82 31 121/59 (79) 100 11/18/19 14:30 80 30 127/55 (79) 100 11/18/19 14:15 78 27 122/57 (78) 100 11/18/19 14:00 80 30 129/54 (79) 100 11/18/19 14:00 129/54 11/18/19 13:45 80 29 127/55 (79) 100 11/18/19 13:30 81 30 130/55 (80) 100 11/18/19 13:15 83 29 137/56 (83) 100 11/18/19 13:00 135/54 11/18/19 13:00 84 29 135/54 (81) 100 11/18/19 12:45 85 28 123/54 (77) 100 11/18/19 12:30 82 28 100/54 (69) 100 11/18/19 12:30 100/54 11/18/19 12:15 83 26 139/56 (83) 100 11/18/19 12:00 Mechanical Ventilator 11/18/19 12:00 102.0 86 27 146/56 (86) 100 11/18/19 12:00 146/56 11/18/19 12:00 86 11/18/19 11:30 86 27 153/56 (88) 100 11/18/19 11:03 88 31 100 11/18/19 11:00 88 26 158/56 (90) 100 11/18/19 11:00 153/59 11/18/19 10:46 92 71/41 11/18/19 10:30 97 26 71/41 (51) 100 11/18/19 10:00 145/61 11/18/19 10:00 90 27 146/57 (86) 100 11/18/19 09:43 101.8 11/18/19 09:30 92 31 148/62 (90) 100 11/18/19 09:00 80 30 152/61 (91) 100 11/18/19 09:00 148/59 11/18/19 08:53 151/59 11/18/19 08:30 81 29 146/59 (88) 100 11/18/19 08:00 101.8 89 31 147/61 (89) 100 11/18/19 08:00 150/58 11/18/19 08:00 Mechanical Ventilator 11/18/19 08:00 89 11/18/19 07:17 84 31 100 11/18/19 07:00 91 17 149/61 (90) 100 11/18/19 07:00 149/61 11/18/19 06:28 80 143/57 11/18/19 06:00 141/60 11/18/19 06:00 85 17 141/60 (87) 100 11/18/19 05:15 111/53 11/18/19 05:00 74 16 99/53 (68) 100 11/18/19 04:00 96 11/18/19 04:00 Mechanical Ventilator 11/18/19 04:00 100.0 96 17 99/53 (68) 100 11/18/19 03:47 104 31 100 11/18/19 03:45 99 17 98/56 (70) 100 11/18/19 03:30 102 17 85/51 (62) 100 11/18/19 03:18 62/39 11/18/19 03:17 101 54/36 11/18/19 03:15 104 17 62/39 (47) 100 11/18/19 03:00 100 16 39/17 (24) 100 11/18/19 02:45 97 16 39/17 (24) 90 11/18/19 02:30 95.6 105 16 84/60 (68) 90 11/18/19 00:00 116 11/18/19 00:00 97.4 61 21 109/51 (70) 100 11/17/19 21:00 Venturi Mask 10.0 11/17/19 20:16 99 Non-Rebreather 14.0 55 11/17/19 20:00 106 11/17/19 20:00 98.6 62 21 99/57 (71) 100 11/17/19 18:04 97 Non-Rebreather 14.0 55 General Appearance: no apparent distress, on vent, patient on isolation, isolation precautions Intake and Output 11/17/19 11/18/19 19:00 07:00 Intake Total 4668.4 ml Output Total 1200 ml 200 ml Balance -1200 ml 4468.4 ml IV Total 4668.4 ml Tube Feeding 0 ml Output Urine Total 1200 ml 200 ml # Voids 3 Laboratory Tests Test 11/18/19 03:30 11/18/19 05:00 11/18/19 07:17 11/18/19 14:00 Arterial Blood pH 7.001 (7.350-7.450) 7.349 (7.350-7.450) Arterial Blood Partial Pressure CO2 73.7 mmHg (35.0-45.0) *H 37.0 mmHg (35.0-45.0) Arterial Blood Partial Pressure O2 217.1 mmHg (75.0-100.0) H 245.5 mmHg (75.0-100.0) H Arterial Blood HCO3 17.8 mmol/L (22.0-26.0) *L 19.9 mmol/L (22.0-26.0) L Arterial Blood Oxygen Saturation 98.3 % (95-100) 98.8 % (95-100) Arterial Blood Base Excess -13.3 (-2-2) *L -5.2 (-2-2) L Michael Test Positive Positive White Blood Count 30.7 K/UL (4.8-10.8) *H Red Blood Count 3.17 M/UL (4.70-6.10) L Hemoglobin 8.8 G/DL (14.2-18.0) L Hematocrit 27.1 % (42.0-52.0) L Mean Corpuscular Volume 86 FL (80-99) Mean Corpuscular Hemoglobin 27.8 PG (27.0-31.0) Mean Corpuscular Hemoglobin Concent 32.5 G/DL (32.0-36.0) Red Cell Distribution Width 13.7 % (11.6-14.8) Platelet Count 547 K/UL (150-450) H Mean Platelet Volume 5.5 FL (6.5-10.1) L Neutrophils (%) (Auto) % (45.0-75.0) Lymphocytes (%) (Auto) % (20.0-45.0) Monocytes (%) (Auto) % (1.0-10.0) Eosinophils (%) (Auto) % (0.0-3.0) Basophils (%) (Auto) % (0.0-2.0) Differential Total Cells Counted 100 Neutrophils % (Manual) 73 % (45-75) Lymphocytes % (Manual) 6 % (20-45) L Monocytes % (Manual) 2 % (1-10) Eosinophils % (Manual) 0 % (0-3) Basophils % (Manual) 0 % (0-2) Metamyelocytes % 1 % (0-0) H Myelocytes % 7 % (0-0) H Band Neutrophils 11 % (0-8) H Platelet Estimate Increased H Platelet Morphology Normal Hypochromasia 1+ Sodium Level 150 MMOL/L (136-145) H Potassium Level 4.3 MMOL/L (3.5-5.1) Chloride Level 114 MMOL/L (98-107) H Carbon Dioxide Level 21 MMOL/L (21-32) Anion Gap 15 mmol/L (5-15) Blood Urea Nitrogen 57 mg/dL (7-18) H Creatinine 1.8 MG/DL (0.55-1.30) H Estimat Glomerular Filtration Rate 37.3 mL/min (>60) Glucose Level 191 MG/DL (74-106) H Uric Acid 9.9 MG/DL (2.6-7.2) H Calcium Level 7.3 MG/DL (8.5-10.1) L Phosphorus Level 6.1 MG/DL (2.5-4.9) H Magnesium Level 2.6 MG/DL (1.8-2.4) H Total Bilirubin 0.2 MG/DL (0.2-1.0) Direct Bilirubin 0.1 MG/DL (0.0-0.3) Aspartate Amino Transf (AST/SGOT) 45 U/L (15-37) H Alanine Aminotransferase (ALT/SGPT) 19 U/L (12-78) Alkaline Phosphatase 95 U/L (46-116) Troponin I 0.038 ng/mL (0.000-0.056) Total Protein 5.0 G/DL (6.4-8.2) L Albumin 1.0 G/DL (3.4-5.0) L Globulin 4.0 g/dL Albumin/Globulin Ratio 0.2 (1.0-2.7) L Random Vancomycin Level 16.7 ug/mL Urine Color Pending Urine Appearance Pending Urine pH Pending Urine Specific [place] Pending Urine Protein Pending Urine Glucose (UA) Pending Urine Ketones Pending Urine Blood Pending Urine Nitrite Pending Urine Bilirubin Pending Urine Urobilinogen Pending Urine Leukocyte Esterase Pending Objective exam not performed as pt with covid per heme Respiratory: chest non-tender, decreased breath sounds, crackles Cardiovascular: no murmur, tachycardia Gastrointestinal: normal bowel sounds, non tender,+peg Daneshrad,Chris S. MD Nov 18, 2019 18:04
[2019-11-18 18:07] LABS: APPEARANCE,URINE SLIGHTLY CLOUDY; BILIRUBIN, URINE NEGATIVE (NEGATIVE); GLUCOSE, URINE (UA) 1+ (NEGATIVE); KETONES,URINE 1+ (NEGATIVE); NITRITE,URINE POSITIVE (NEGATIVE); PH,URINE 5 (4.5-8.0); PROTEIN,URINE 3+ (NEGATIVE); UROBILINOGEN,URINE 1 MG/DL (0.0-1.0)
[2019-11-18 18:30] LABS: COLOR,URINE YELLOW; LEUKOCYTE ESTERASE ,URINE 1+ (NEGATIVE)
[2019-11-18] MEDS ORDERED: Dyna-Hex 2% Top Sol 2oz TOPIC SCH (20:00)
[2019-11-18] MEDS: Dyna-Hex 2% Top Sol 2oz TOPIC SCH (20:30)
[2019-11-19] VITALS (56 sets, daily range): BP systolic 85–126; BP diastolic 37–62
[2019-11-19] MEDS: Norepinephrine Bitartrate 8 MG in D5W 500ml 550 ML IV SCH ×3 (00:11→14:34)
[2019-11-19 07:26] LABS: HEMATOCRIT 24.1 % (42.0-52.0); MEAN CORPUSCULAR VOLUME 82 FL (80-99); PLATELET COUNT 387 K/UL (150-450); RED BLOOD COUNT 2.93 M/UL (4.70-6.10); RED CELL DISTRIBUTION WIDTH 13.5 % (11.6-14.8)
[2019-11-19 07:30] LABS: WHITE BLOOD COUNT 32.2 K/UL (4.8-10.8)
[2019-11-19 07:34] LABS: PHOSPHORUS 4.2 MG/DL (2.5-4.9)
[2019-11-19 07:56] LABS: ALANINE AMINOTRANSFERASE 15 U/L (12-78); ALBUMIN 0.9 G/DL (3.4-5.0); ALBUMIN/GLOBULIN RATIO 0.2 (1.0-2.7); ALKALINE PHOSPHATASE 77 U/L (46-116); ANION GAP 14 mmol/L (5-15); ASPARTATE AMINO TRANSFERASE 66 U/L (15-37); BILIRUBIN,TOTAL 0.3 MG/DL (0.2-1.0); BLOOD UREA NITROGEN 57 mg/dL (7-18); CALCIUM 6.4 MG/DL (8.5-10.1); CARBON DIOXIDE 17 MMOL/L (21-32); CHLORIDE 109 MMOL/L (98-107); POTASSIUM 4.5 MMOL/L (3.5-5.1); SODIUM 140 MMOL/L (136-145)
[2019-11-19 08:13] LABS: CREATINE KINASE 89 U/L (26-308); GAMMA GLUTAMYL TRANSPEPTIDASE 33 U/L (5-85); LACTATE DEHYDROGENASE 531 U/L (81-234)
[2019-11-19] MEDS: Meropenem 1 GM in NS 55 ML IVPB SCH ×2 (09:58→20:05)
[2019-11-19] MEDS: Pantoprazole Inj IV SCH (09:58)
[2019-11-19] MEDS: Vancomycin oral 125mg/2.5ml NG SCH ×4 (09:59→20:05)
[2019-11-19] MEDS: Heparin 5000 units/ml inj SUBQ SCH ×2 (10:01→20:04)
--- NOTE | 2019-11-19 10:11 | Diagnostic Imaging Report ---
EXAM: XR Chest, 1 View CLINICAL HISTORY: DYSPNEA TECHNIQUE: Frontal view of the chest. COMPARISON: 11/18/19. FINDINGS: Appropriately positioned endotracheal tube, projecting between the clavicular heads. External pacer pads have been removed. Persistent basilar atelectasis and/or infiltrates. Question a developing infiltrate in the right upper lobe. Calcified aorta. Degenerative changes of the skeleton. IMPRESSION: Redemonstrated basilar atelectasis and/or infiltrates. Question developing airspace infiltrate in the right upper lobe.
--- NOTE | 2019-11-19 10:22 | Pulmonolgy Critical Care Note ---
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, consultants, [employer] manager - Objective Last 24 Hour Vital Signs Date Time Temp Pulse Resp B/P (MAP) Pulse Ox O2 Delivery O2 Flow Rate FiO2 11/19/19 08:00 80 11/19/19 07:46 86 26 80 11/19/19 07:00 87 25 125/62 (83) 100 11/19/19 07:00 125/62 11/19/19 06:05 126/57 11/19/19 06:00 84 25 126/57 (80) 100 11/19/19 06:00 126/57 11/19/19 05:00 120/61 11/19/19 05:00 81 26 120/61 (80) 100 11/19/19 04:00 Mechanical Ventilator 11/19/19 04:00 99.4 80 27 125/55 (78) 100 11/19/19 04:00 125/55 11/19/19 04:00 85 11/19/19 04:00 80 11/19/19 03:56 80 28 80 11/19/19 03:00 119/57 11/19/19 03:00 83 27 119/57 (77) 100 11/19/19 02:30 82 27 112/56 (74) 100 11/19/19 02:00 122/55 11/19/19 02:00 81 27 122/55 (77) 100 11/19/19 01:00 80 28 121/57 (78) 100 11/19/19 01:00 121/57 11/19/19 00:11 112/56 11/19/19 00:00 Mechanical Ventilator 11/19/19 00:00 99.7 83 28 112/56 (74) 100 11/19/19 00:00 112/56 11/19/19 00:00 81 6 00:00 80 11/18/19 23:00 112/54 11/18/19 23:00 82 28 112/54 (73) 100 11/18/19 22:00 114/51 11/18/19 22:00 80 28 114/51 (72) 100 11/18/19 21:00 112/51 11/18/19 21:00 78 28 112/51 (71) 100 11/18/19 20:25 79 31 80 11/18/19 20:00 99.9 78 28 109/55 (73) 100 11/18/19 20:00 Mechanical Ventilator 11/18/19 20:00 109/55 11/18/19 20:00 77 11/18/19 19:00 77 27 113/54 (73) 100 11/18/19 19:00 113/54 11/18/19 18:45 78 29 101/53 (69) 100 11/18/19 18:30 80 28 106/53 (70) 100 11/18/19 18:15 82 28 110/52 (71) 100 11/18/19 18:14 99.8 11/18/19 18:00 83 28 103/50 (67) 100 11/18/19 18:00 103/50 11/18/19 17:45 83 29 98/53 (68) 100 11/18/19 17:44 101/48 11/18/19 17:30 82 30 101/48 (65) 100 11/18/19 17:15 81 31 110/56 (74) 100 11/18/19 17:00 81 31 119/58 (78) 100 11/18/19 17:00 119/58 11/18/19 16:45 81 32 123/59 (80) 100 11/18/19 16:30 82 32 118/57 (77) 100 11/18/19 16:15 83 32 116/58 (77) 100 11/18/19 16:00 81 11/18/19 16:00 80 11/18/19 16:00 124/59 11/18/19 16:00 99.8 81 29 124/59 (80) 100 11/18/19 16:00 Mechanical Ventilator 11/18/19 15:45 81 22 124/60 (81) 100 11/18/19 15:30 80 31 126/58 (80) 100 11/18/19 15:15 80 32 125/59 (81) 100 11/18/19 15:00 81 32 125/59 (81) 100 11/18/19 15:00 125/59 11/18/19 14:46 78 32 100 11/18/19 14:45 82 31 121/59 (79) 100 11/18/19 14:30 80 30 127/55 (79) 100 11/18/19 14:15 78 27 122/57 (78) 100 11/18/19 14:00 80 30 129/54 (79) 100 11/18/19 14:00 129/54 11/18/19 13:45 80 29 127/55 (79) 100 11/18/19 13:30 81 30 130/55 (80) 100 11/18/19 13:15 83 29 137/56 (83) 100 11/18/19 13:00 135/54 11/18/19 13:00 84 29 135/54 (81) 100 11/18/19 12:45 85 28 123/54 (77) 100 11/18/19 12:30 82 28 100/54 (69) 100 11/18/19 12:30 100/54 11/18/19 12:15 83 26 139/56 (83) 100 11/18/19 12:00 Mechanical Ventilator 11/18/19 12:00 102.0 86 27 146/56 (86) 100 11/18/19 12:00 80 11/18/19 12:00 146/56 11/18/19 12:00 86 11/18/19 11:30 86 27 153/56 (88) 100 11/18/19 11:03 88 31 100 11/18/19 11:00 88 26 158/56 (90) 100 11/18/19 11:00 153/59 11/18/19 10:46 92 71/41 11/18/19 10:30 97 26 71/41 (51) 100 Status: sedated Condition: critical HEENT: atraumatic Lungs: clear Heart: HR/BP stable Abdomen: soft, non-tender Extremities: no C/C/E Micro: Microbiology Date/Time Source Procedure Growth Status 11/18/19 14:00 Urine,Clean Catch Urine Culture - Preliminary NO GROWTH Resulted Critical Care - Subjective ROS Limited/Unobtainable: Yes Condition: critical EKG Rhythm: Sinus Rhythm FI02: 80 Vent Support Breath Rate: 20 Vent Support Mode: AC Vent Tidal Volume: 550 Sputum Amount: Small PEEP: 5.0 PIP: 32 Tube Feeding Amount: 0 I&O: Intake and Output 11/18/19 11/19/19 19:00 07:00 Intake Total 3039.19 ml 2435.685 ml Output Total 1210 ml 250 ml Balance 1829.19 ml 2185.685 ml IV Total 2939.19 ml 2435.685 ml Tube Feeding 0 ml 0 ml Other 100 ml Output Urine Total 410 ml 50 ml Stool Total 800 ml 200 ml ET-Tube: 8.0 ET Position: 23 Labs: Laboratory Tests Test 11/18/19 14:00 11/19/19 06:25 11/19/19 08:29 Urine Color Yellow Urine Appearance Slightly cloudy Urine pH 5 (4.5-8.0) Urine Specific [place] 1.025 (1.005-1.035) Urine Protein 3+ (NEGATIVE) H Urine Glucose (UA) 1+ (NEGATIVE) H Urine Ketones 1+ (NEGATIVE) H Urine Blood 5+ (NEGATIVE) H Urine Nitrite Positive (NEGATIVE) H Urine Bilirubin Negative (NEGATIVE) Urine Urobilinogen 1 MG/DL (0.0-1.0) H Urine Leukocyte Esterase 1+ (NEGATIVE) H Urine RBC Tntc /HPF (0 - 0) H Urine WBC 2-4 /HPF (0 - 0) Urine Squamous Epithelial Cells None /LPF (NONE/OCC) Urine Bacteria Many /HPF (NONE) H White Blood Count 32.2 K/UL (4.8-10.8) *H Red Blood Count 2.93 M/UL (4.70-6.10) L Hemoglobin 8.0 G/DL (14.2-18.0) L Hematocrit 24.1 % (42.0-52.0) L Mean Corpuscular Volume 82 FL (80-99) Mean Corpuscular Hemoglobin 27.3 PG (27.0-31.0) Mean Corpuscular Hemoglobin Concent 33.2 G/DL (32.0-36.0) Red Cell Distribution Width 13.5 % (11.6-14.8) Platelet Count 387 K/UL (150-450) Mean Platelet Volume 5.3 FL (6.5-10.1) L Neutrophils (%) (Auto) % (45.0-75.0) Lymphocytes (%) (Auto) % (20.0-45.0) Monocytes (%) (Auto) % (1.0-10.0) Eosinophils (%) (Auto) % (0.0-3.0) Basophils (%) (Auto) % (0.0-2.0) Differential Total Cells Counted 100 Neutrophils % (Manual) 89 % (45-75) H Lymphocytes % (Manual) 4 % (20-45) L Monocytes % (Manual) 7 % (1-10) Eosinophils % (Manual) 0 % (0-3) Basophils % (Manual) 0 % (0-2) Band Neutrophils 0 % (0-8) Platelet Estimate Adequate Platelet Morphology Normal Hypochromasia 2+ Anisocytosis 1+ Sodium Level 140 MMOL/L (136-145) Potassium Level 4.5 MMOL/L (3.5-5.1) Chloride Level 109 MMOL/L (98-107) H Carbon Dioxide Level 17 MMOL/L (21-32) L Anion Gap 14 mmol/L (5-15) Blood Urea Nitrogen 57 mg/dL (7-18) H Creatinine 2.0 MG/DL (0.55-1.30) H Estimat Glomerular Filtration Rate 33.0 mL/min (>60) Glucose Level 150 MG/DL (74-106) H Lactic Acid Level 2.50 mmol/L (0.4-2.0) H Uric Acid 9.4 MG/DL (2.6-7.2) H Calcium Level 6.4 MG/DL (8.5-10.1) L Phosphorus Level 4.2 MG/DL (2.5-4.9) Magnesium Level 2.0 MG/DL (1.8-2.4) Total Bilirubin 0.3 MG/DL (0.2-1.0) Gamma Glutamyl Transpeptidase 33 U/L (5-85) Aspartate Amino Transf (AST/SGOT) 66 U/L (15-37) H Alanine Aminotransferase (ALT/SGPT) 15 U/L (12-78) Alkaline Phosphatase 77 U/L (46-116) Lactate Dehydrogenase 531 U/L (81-234) H Total Creatine Kinase 89 U/L (26-308) Troponin I 0.013 ng/mL (0.000-0.056) C-Reactive Protein, Quantitative 23.2 mg/dL (0.00-0.90) H Pro-B-Type Natriuretic Peptide 5880 pg/mL (0-125) H Total Protein 4.8 G/DL (6.4-8.2) L Albumin 0.9 G/DL (3.4-5.0) L Globulin 3.9 g/dL Albumin/Globulin Ratio 0.2 (1.0-2.7) L Cortisol AM Sample Pending Arterial Blood pH 7.334 (7.350-7.450) Arterial Blood Partial Pressure CO2 30.9 mmHg (35.0-45.0) L Arterial Blood Partial Pressure O2 314.4 mmHg (75.0-100.0) H Arterial Blood HCO3 16.1 mmol/L (22.0-26.0) *L Arterial Blood Oxygen Saturation 98.9 % (95-100) Arterial Blood Base Excess -8.8 (-2-2) L Michael Test Positive Ayana Ndiaye MD Nov 19, 2019 10:22
--- NOTE | 2019-11-19 10:29 | Nephrology Progress Note ---
Assessment/Plan Problem List: (1) ARF (acute renal failure) (2) Hyperkalemia (3) DM (diabetes mellitus) (4) Suspected COVID-19 virus infection (5) Sepsis (6) Severe malnutrition Assessment: Severe hypoalbuminemia Assessment his 74-year-old male with multiple Multiple medical problem presents with respiratory symptoms and diarrhea Renal failure most likely prerenal azotemia secondary to dehydration Hyperkalemia on presentation also secondary to dehydration Sepsis pneumonia hypoxia UTI Anemia History of hypertension History of diabetes mellitus Suspected COVID-19 virus infection Hypoalbuminemia Plan C. difficile positive COVID-19 detected November 18: Serum creatinine rising. Continues to be full code. Continues to be intubated on ventilator. Remains on IV fluids. Vancomycin levels per pharmacy. Prognosis poor due to sepsis. November 17: Intubated on ventilator in ICU. Will continue half-normal saline 100 cc an hour. Continue per pulmonary and ID. Prognosis poor. Continue to monitor renal parameters. Hydrate with half-normal saline, serum creatinine now at its lowest today. monitor electrolytes Will change the feeding to Nepro and monitor her potassium and other electrolytes Continue per ID Keep the blood pressure and blood sugar in check Monitor renal parameters Previously: Urine studies Monitor intake and output Cultures including stool for C. difficile Per orders Patient's CODE STATUS is full Subjective ROS Limited/Unobtainable: Yes Objective Objective Last 24 Hour Vital Signs Date Time Temp Pulse Resp B/P (MAP) Pulse Ox O2 Delivery O2 Flow Rate FiO2 11/19/19 08:00 80 11/19/19 07:46 86 26 80 11/19/19 07:00 87 25 125/62 (83) 100 11/19/19 07:00 125/62 11/19/19 06:05 126/57 11/19/19 06:00 84 25 126/57 (80) 100 11/19/19 06:00 126/57 11/19/19 05:00 120/61 11/19/19 05:00 81 26 120/61 (80) 100 11/19/19 04:00 Mechanical Ventilator 11/19/19 04:00 99.4 80 27 125/55 (78) 100 11/19/19 04:00 125/55 11/19/19 04:00 85 11/19/19 04:00 80 11/19/19 03:56 80 28 80 11/19/19 03:00 119/57 11/19/19 03:00 83 27 119/57 (77) 100 11/19/19 02:30 82 27 112/56 (74) 100 11/19/19 02:00 122/55 11/19/19 02:00 81 27 122/55 (77) 100 11/19/19 01:00 80 28 121/57 (78) 100 11/19/19 01:00 121/57 11/19/19 00:11 112/56 11/19/19 00:00 Mechanical Ventilator 11/19/19 00:00 99.7 83 28 112/56 (74) 100 11/19/19 00:00 112/56 11/19/19 00:00 81 11/19/19 00:00 80 11/18/19 23:00 112/54 11/18/19 23:00 82 28 112/54 (73) 100 11/18/19 22:00 114/51 11/18/19 22:00 80 28 114/51 (72) 100 11/18/19 21:00 112/51 11/18/19 21:00 78 28 112/51 (71) 100 11/18/19 20:25 79 31 80 11/18/19 20:00 99.9 78 28 109/55 (73) 100 11/18/19 20:00 Mechanical Ventilator 11/18/19 20:00 109/55 11/18/19 20:00 77 11/18/19 19:00 77 27 113/54 (73) 100 11/18/19 19:00 113/54 11/18/19 18:45 78 29 101/53 (69) 100 11/18/19 18:30 80 28 106/53 (70) 100 11/18/19 18:15 82 28 110/52 (71) 100 11/18/19 18:14 99.8 11/18/19 18:00 83 28 103/50 (67) 100 11/18/19 18:00 103/50 11/18/19 17:45 83 29 98/53 (68) 100 11/18/19 17:44 101/48 11/18/19 17:30 82 30 101/48 (65) 100 11/18/19 17:15 81 31 110/56 (74) 100 11/18/19 17:00 81 31 119/58 (78) 100 11/18/19 17:00 119/58 11/18/19 16:45 81 32 123/59 (80) 100 11/18/19 16:30 82 32 118/57 (77) 100 11/18/19 16:15 83 32 116/58 (77) 100 11/18/19 16:00 81 11/18/19 16:00 80 11/18/19 16:00 124/59 11/18/19 16:00 99.8 81 29 124/59 (80) 100 11/18/19 16:00 Mechanical Ventilator 11/18/19 15:45 81 22 124/60 (81) 100 11/18/19 15:30 80 31 126/58 (80) 100 11/18/19 15:15 80 32 125/59 (81) 100 11/18/19 15:00 81 32 125/59 (81) 100 11/18/19 15:00 125/59 11/18/19 14:46 78 32 100 11/18/19 14:45 82 31 121/59 (79) 100 11/18/19 14:30 80 30 127/55 (79) 100 11/18/19 14:15 78 27 122/57 (78) 100 11/18/19 14:00 80 30 129/54 (79) 100 11/18/19 14:00 129/54 11/18/19 13:45 80 29 127/55 (79) 100 11/18/19 13:30 81 30 130/55 (80) 100 11/18/19 13:15 83 29 137/56 (83) 100 11/18/19 13:00 135/54 11/18/19 13:00 84 29 135/54 (81) 100 11/18/19 12:45 85 28 123/54 (77) 100 11/18/19 12:30 82 28 100/54 (69) 100 11/18/19 12:30 100/54 11/18/19 12:15 83 26 139/56 (83) 100 11/18/19 12:00 Mechanical Ventilator 11/18/19 12:00 102.0 86 27 146/56 (86) 100 11/18/19 12:00 80 11/18/19 12:00 146/56 11/18/19 12:00 86 11/18/19 11:30 86 27 153/56 (88) 100 11/18/19 11:03 88 31 100 11/18/19 11:00 88 26 158/56 (90) 100 11/18/19 11:00 153/59 11/18/19 10:46 92 71/41 11/18/19 10:30 97 26 71/41 (51) 100 Intake and Output 11/18/19 11/19/19 19:00 07:00 Intake Total 3039.19 ml 2435.685 ml Output Total 1210 ml 250 ml Balance 1829.19 ml 2185.685 ml IV Total 2939.19 ml 2435.685 ml Tube Feeding 0 ml 0 ml Other 100 ml Output Urine Total 410 ml 50 ml Stool Total 800 ml 200 ml Laboratory Tests 11/18/19 14:00: Urine Color Yellow, Urine Appearance Slightly cloudy, Urine pH 5, Urine Specific [place] 1.025, Urine Protein 3+H, Urine Glucose (UA) 1+H, Urine Ketones 1+H, Urine Blood 5+H, Urine Nitrite PositiveH, Urine Bilirubin Negative , Urine Urobilinogen 1H, Urine Leukocyte Esterase 1+H, Urine RBC TntcH, Urine WBC 2-4, Urine Squamous Epithelial Cells None, Urine Bacteria ManyH 11/19/19 06:25: White Blood Count 32.2*H, Red Blood Count 2.93L, Hemoglobin 8.0L, Hematocrit 24.1L, Mean Corpuscular Volume 82, Mean Corpuscular Hemoglobin 27.3, Mean Corpuscular Hemoglobin Concent 33.2, Red Cell Distribution Width 13.5, Platelet Count 387, Mean Platelet Volume 5.3L, Neutrophils (%) (Auto) , Lymphocytes (%) ( Auto) , Monocytes (%) (Auto) , Eosinophils (%) (Auto) , Basophils (%) (Auto) , Differential Total Cells Counted 100, Neutrophils % (Manual) 89H, Lymphocytes % (Manual) 4L, Monocytes % (Manual) 7, Eosinophils % (Manual) 0, Basophils % ( Manual) 0, Band Neutrophils 0, Platelet Estimate Adequate, Platelet Morphology Normal, Hypochromasia 2+, Anisocytosis 1+, Sodium Level 140, Potassium Level 4.5 , Chloride Level 109H, Carbon Dioxide Level 17L, Anion Gap 14, Blood Urea Nitrogen 57H, Creatinine 2.0H, Estimat Glomerular Filtration Rate 33.0, Glucose Level 150H, Lactic Acid Level 2.50H, Uric Acid 9.4H, Calcium Level 6.4L, Phosphorus Level 4.2, Magnesium Level 2.0, Total Bilirubin 0.3, Gamma Glutamyl Transpeptidase 33, Aspartate Amino Transf (AST/SGOT) 66H, Alanine Aminotransferase (ALT/SGPT) 15, Alkaline Phosphatase 77, Lactate Dehydrogenase 531H, Total Creatine Kinase 89, Troponin I 0.013, C-Reactive Protein, Quantitative 23.2H, Pro-B-Type Natriuretic Peptide 5880H, Total Protein 4.8L, Albumin 0.9L, Globulin 3.9, Albumin/Globulin Ratio 0.2L, Cortisol AM Sample [ Pending] 11/19/19 08:29: Arterial Blood pH 7.334L, Arterial Blood Partial Pressure CO2 30.9L, Arterial Blood Partial Pressure O2 314.4H, Arterial Blood HCO3 16.1*L, Arterial Blood Oxygen Saturation 98.9, Arterial Blood Base Excess -8.8L, Michael Test Positive Height (Feet): 6 Height (Inches): 0.00 Weight (Pounds): 148 General Appearance: no apparent distress EENT: other - Intubated on ventilator Cardiovascular: tachycardia Respiratory/Chest: decreased breath sounds Abdomen: distended Objective No other change Ricardo Choudhary MD Nov 19, 2019 10:29
[2019-11-19] MEDS: Acetaminophen 650mg/20.3ml GT PRN ×2 (12:19→20:04)
--- NOTE | 2019-11-19 14:12 | Surgery Progress Note ---
Surgery Progress Note Subjective Additional Comments non responsive roland off levo weaning Objective Last 24 Hour Vital Signs Date Time Temp Pulse Resp B/P (MAP) Pulse Ox O2 Delivery O2 Flow Rate FiO2 11/19/19 13:15 84 24 104/52 (69) 100 11/19/19 13:00 107/53 11/19/19 13:00 84 24 112/53 (72) 100 11/19/19 12:49 98.8 11/19/19 12:45 85 23 111/53 (72) 100 11/19/19 12:30 84 22 113/54 (73) 100 11/19/19 12:15 83 24 115/54 (74) 100 11/19/19 12:00 83 11/19/19 12:00 80 11/19/19 12:00 98.9 84 24 114/56 (75) 100 11/19/19 12:00 115/54 11/19/19 11:30 84 22 115/54 (74) 100 11/19/19 11:15 86 24 113/54 (73) 100 11/19/19 11:00 86 24 108/56 (73) 100 11/19/19 11:00 113/54 11/19/19 10:45 87 24 114/55 (74) 100 11/19/19 10:30 87 24 113/53 (73) 100 11/19/19 10:15 86 25 112/53 (72) 100 11/19/19 10:00 112/53 11/19/19 10:00 87 25 115/55 (75) 100 11/19/19 09:45 87 24 106/53 (70) 100 11/19/19 09:30 91 26 111/54 (73) 100 11/19/19 09:15 88 26 107/52 (70) 100 11/19/19 09:00 107/52 11/19/19 09:00 89 26 120/58 (78) 100 11/19/19 08:45 85 25 123/54 (77) 100 11/19/19 08:30 84 25 119/53 (75) 100 11/19/19 08:15 86 26 120/57 (78) 100 11/19/19 08:00 80 11/19/19 08:00 86 11/19/19 08:00 120/57 11/19/19 08:00 99.1 86 25 124/57 (79) 100 11/19/19 07:46 86 26 80 11/19/19 07:00 87 25 125/62 (83) 100 11/19/19 07:00 125/62 11/19/19 06:05 126/57 11/19/19 06:00 84 25 126/57 (80) 100 11/19/19 06:00 126/57 11/19/19 05:00 120/61 11/19/19 05:00 81 26 120/61 (80) 100 11/19/19 04:00 Mechanical Ventilator 11/19/19 04:00 99.4 80 27 125/55 (78) 100 11/19/19 04:00 125/55 11/19/19 04:00 85 11/19/19 04:00 80 11/19/19 03:56 80 28 80 11/19/19 03:00 119/57 11/19/19 03:00 83 27 119/57 (77) 100 11/19/19 02:30 82 27 112/56 (74) 100 11/19/19 02:00 122/55 11/19/19 02:00 81 27 122/55 (77) 100 11/19/19 01:00 80 28 121/57 (78) 100 11/19/19 01:00 121/57 11/19/19 00:11 112/56 11/19/19 00:00 Mechanical Ventilator 11/19/19 00:00 99.7 83 28 112/56 (74) 100 11/19/19 00:00 112/56 11/19/19 00:00 81 11/19/19 00:00 80 11/18/19 23:00 112/54 11/18/19 23:00 82 28 112/54 (73) 100 11/18/19 22:00 114/51 11/18/19 22:00 80 28 114/51 (72) 100 11/18/19 21:00 112/51 11/18/19 21:00 78 28 112/51 (71) 100 11/18/19 20:25 79 31 80 11/18/19 20:00 99.9 78 28 109/55 (73) 100 11/18/19 20:00 Mechanical Ventilator 11/18/19 20:00 109/55 11/18/19 20:00 77 11/18/19 19:00 77 27 113/54 (73) 100 11/18/19 19:00 113/54 11/18/19 18:45 78 29 101/53 (69) 100 11/18/19 18:30 80 28 106/53 (70) 100 11/18/19 18:15 82 28 110/52 (71) 100 11/18/19 18:00 83 28 103/50 (67) 100 11/18/19 18:00 103/50 11/18/19 17:45 83 29 98/53 (68) 100 11/18/19 17:44 101/48 11/18/19 17:30 82 30 101/48 (65) 100 11/18/19 17:15 81 31 110/56 (74) 100 11/18/19 17:00 81 31 119/58 (78) 100 11/18/19 17:00 119/58 11/18/19 16:45 81 32 123/59 (80) 100 11/18/19 16:30 82 32 118/57 (77) 100 11/18/19 16:15 83 32 116/58 (77) 100 11/18/19 16:00 81 11/18/19 16:00 80 11/18/19 16:00 124/59 11/18/19 16:00 99.8 81 29 124/59 (80) 100 11/18/19 16:00 Mechanical Ventilator 11/18/19 15:45 81 22 124/60 (81) 100 11/18/19 15:30 80 31 126/58 (80) 100 11/18/19 15:15 80 32 125/59 (81) 100 11/18/19 15:00 81 32 125/59 (81) 100 11/18/19 15:00 125/59 11/18/19 14:46 78 32 100 11/18/19 14:45 82 31 121/59 (79) 100 11/18/19 14:30 80 30 127/55 (79) 100 11/18/19 14:15 78 27 122/57 (78) 100 I&O Intake and Output 11/18/19 11/19/19 19:00 07:00 Intake Total 3039.19 ml 2435.685 ml Output Total 1210 ml 250 ml Balance 1829.19 ml 2185.685 ml IV Total 2939.19 ml 2435.685 ml Tube Feeding 0 ml 0 ml Other 100 ml Output Urine Total 410 ml 50 ml Stool Total 800 ml 200 ml Dressing: other Wound: other Drains: other Cardiovascular: RSR Respiratory: decreased breath sounds Abdomen: soft, non-tender, present bowel sounds Extremities: no cyanosis Laboratory Tests Test 11/19/19 06:25 11/19/19 08:29 White Blood Count 32.2 K/UL (4.8-10.8) *H Red Blood Count 2.93 M/UL (4.70-6.10) L Hemoglobin 8.0 G/DL (14.2-18.0) L Hematocrit 24.1 % (42.0-52.0) L Mean Corpuscular Volume 82 FL (80-99) Mean Corpuscular Hemoglobin 27.3 PG (27.0-31.0) Mean Corpuscular Hemoglobin Concent 33.2 G/DL (32.0-36.0) Red Cell Distribution Width 13.5 % (11.6-14.8) Platelet Count 387 K/UL (150-450) Mean Platelet Volume 5.3 FL (6.5-10.1) L Neutrophils (%) (Auto) % (45.0-75.0) Lymphocytes (%) (Auto) % (20.0-45.0) Monocytes (%) (Auto) % (1.0-10.0) Eosinophils (%) (Auto) % (0.0-3.0) Basophils (%) (Auto) % (0.0-2.0) Differential Total Cells Counted 100 Neutrophils % (Manual) 89 % (45-75) H Lymphocytes % (Manual) 4 % (20-45) L Monocytes % (Manual) 7 % (1-10) Eosinophils % (Manual) 0 % (0-3) Basophils % (Manual) 0 % (0-2) Band Neutrophils 0 % (0-8) Platelet Estimate Adequate Platelet Morphology Normal Hypochromasia 2+ Anisocytosis 1+ Sodium Level 140 MMOL/L (136-145) Potassium Level 4.5 MMOL/L (3.5-5.1) Chloride Level 109 MMOL/L (98-107) H Carbon Dioxide Level 17 MMOL/L (21-32) L Anion Gap 14 mmol/L (5-15) Blood Urea Nitrogen 57 mg/dL (7-18) H Creatinine 2.0 MG/DL (0.55-1.30) H Estimat Glomerular Filtration Rate 33.0 mL/min (>60) Glucose Level 150 MG/DL (74-106) H Lactic Acid Level 2.50 mmol/L (0.4-2.0) H Uric Acid 9.4 MG/DL (2.6-7.2) H Calcium Level 6.4 MG/DL (8.5-10.1) L Phosphorus Level 4.2 MG/DL (2.5-4.9) Magnesium Level 2.0 MG/DL (1.8-2.4) Total Bilirubin 0.3 MG/DL (0.2-1.0) Gamma Glutamyl Transpeptidase 33 U/L (5-85) Aspartate Amino Transf (AST/SGOT) 66 U/L (15-37) H Alanine Aminotransferase (ALT/SGPT) 15 U/L (12-78) Alkaline Phosphatase 77 U/L (46-116) Lactate Dehydrogenase 531 U/L (81-234) H Total Creatine Kinase 89 U/L (26-308) Troponin I 0.013 ng/mL (0.000-0.056) C-Reactive Protein, Quantitative 23.2 mg/dL (0.00-0.90) H Pro-B-Type Natriuretic Peptide 5880 pg/mL (0-125) H Total Protein 4.8 G/DL (6.4-8.2) L Albumin 0.9 G/DL (3.4-5.0) L Globulin 3.9 g/dL Albumin/Globulin Ratio 0.2 (1.0-2.7) L Cortisol AM Sample Pending Arterial Blood pH 7.334 (7.350-7.450) Arterial Blood Partial Pressure CO2 30.9 mmHg (35.0-45.0) L Arterial Blood Partial Pressure O2 314.4 mmHg (75.0-100.0) H Arterial Blood HCO3 16.1 mmol/L (22.0-26.0) *L Arterial Blood Oxygen Saturation 98.9 % (95-100) Arterial Blood Base Excess -8.8 (-2-2) L Michael Test Positive Plan Problems: (1) Decubitus skin ulcer Assessment & Plan: Pt presented on admission with large sacral wound. Base of wound with areas that area purple and indurated sacrococcygeal,L sacrum/L gluteus,Scattered wounds with maceration L gluteus, one wound R sacrum with Biofilm, Surrounding non-blanching erythema entire buttocks. Small dry scabbed area noted to lumbar area. Unstageable Pressure Injury L heel. Base of wound is necrotic with surrounding non-blanching erythema. Tx.plan: Apply Moisture Barrier Paste to Buttocks. Cover Sacrum, R and L gluteal cheeks with Optifoam drsgs. Change every 3 days and prn. Apply Betadine to L heel. Cover with Optifoam drsg. Change every 3 days and prn. Reposition at least every 2hours or as tolerated. Place Pillow between knees. Off-load heels with Pillow. APM/BRUNILDA Mattress overlay. DAILY ESTIMATED NEEDS: Needs based on wt loss, underweight, wound/ 59kg 30-35 kcals/kg 1990-3599 total kcals 1.25-2 g protein/kg 74-118 g total protein 25-30 mL/kg 2820-2062 total fluid mLs NUTRITION DIAGNOSIS: * Increased kcal/prot intake needs R/T wound healing, suspected recent significant wt loss as evidenced by admitted w/ wounds @ lt posterior heel, R lower back, sacrum as per photos, pending eval, suspected significant wt loss of 40lbs/ 23.7% in <5 months, currently @ 81% IBW. . * Swallowing difficulty R/T dysphagia, h/o CVA as evidenced by PEG dependent. CURRENT TF:Glucerna 1.2 @65ml/hr x24 hrs ENTERAL NUTRITION RECOMMENDATIONS: NEPRO @45ml/hr x24 hrs to provide 1080ml, 1944 kcal, 87g pro, 785ml free H2O - Rec TF change for lower K content (1145mg in Nepro @45 vs 3151mg in Glucerna 1.2 @65) - Start at 25ml/hr advance as tolerated 10ml/hr q4-6 hrs - HOB over 30 degrees - Increased H20 flush to 200ml q4 hrs ADDITIONAL RECOMMENDATIONS: 1) Calibrated bedscale wt -> per SNF: HT=59" and [id number] (10/20/19) 2) Wound healing: Add Vit C 500mg QD/ or dosing per nephro Add Osbaldo BID via PEG w/ TF order 3) Monitor lytes: monitor K trend, need for renal TF (K 5.3, 5.5) 4) NISS w/ TF (h/o DM) 5) Monitor for diarrhea, rec probiotics (2) Sepsis Assessment & Plan: 74-year-old male multi-medical comorbidities admitted for respiratory deficiency currently tachypneic, leukocytosis, malnutrition, hypoalbuminemia. Complete physical exam performed identified areas of concerned given patient's comorbidities current condition high risk for deteriorationNo active infection identified from patient's wounds and likely respiratory nature. Chest x-ray reviewed. No acute surgical intervention planned at this time Preventive measures IV antibiotics per infectious disease Okay for feeding once stable respiratory Appreciate Pulm input c diff positive on vanco blood cx noted worsening leukocytosis ID abx noted heme input noted There are increasing basilar opacities on the left noted. The heart size is normal. The pleural spaces are clear. 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
--- NOTE | 2019-11-19 14:55 | Cardiology Progress Note ---
Assessment/Plan Problem List: (1) 2019 novel coronavirus disease (COVID-19) (2) Acute respiratory failure (3) Cardiac arrest (4) DM (diabetes mellitus) (5) ARF (acute renal failure) (6) Aspiration pneumonia Status: not improved, unchanged Status Narrative Pt w/ Covid pneumonia and proteus, MRSA sputum and enterococcal uti. On abx and remdesivir per ID He suffered a cardiopulm arrest yesterday - telemetry strips reviewed - appears w/ bradycardia, ? PEA, in setting of primary respiratory arrest. Pt now intubated, sedated. Assessment/Plan Pt weaned off pressors. Continue vent support, iv antibiotics, supportive care. Subjective ROS Limited/Unobtainable: Yes Subjective Pt intubated, sedated. events noted Objective Last 24 Hour Vital Signs Date Time Temp Pulse Resp B/P (MAP) Pulse Ox O2 Delivery O2 Flow Rate FiO2 11/19/19 14:34 105/53 11/19/19 14:00 82 25 110/50 (70) 100 11/19/19 13:15 84 24 104/52 (69) 100 11/19/19 13:00 107/53 11/19/19 13:00 84 24 112/53 (72) 100 11/19/19 12:49 98.8 11/19/19 12:45 85 23 111/53 (72) 100 11/19/19 12:30 84 22 113/54 (73) 100 11/19/19 12:15 83 24 115/54 (74) 100 11/19/19 12:00 83 11/19/19 12:00 80 11/19/19 12:00 98.9 84 24 114/56 (75) 100 11/19/19 12:00 115/54 11/19/19 11:30 84 22 115/54 (74) 100 11/19/19 11:15 86 24 113/54 (73) 100 11/19/19 11:00 86 24 108/56 (73) 100 11/19/19 11:00 113/54 11/19/19 10:45 87 24 114/55 (74) 100 11/19/19 10:30 87 24 113/53 (73) 100 11/19/19 10:15 86 25 112/53 (72) 100 11/19/19 10:00 112/53 11/19/19 10:00 87 25 115/55 (75) 100 11/19/19 09:45 87 24 106/53 (70) 100 11/19/19 09:30 91 26 111/54 (73) 100 11/19/19 09:15 88 26 107/52 (70) 100 11/19/19 09:00 107/52 11/19/19 09:00 89 26 120/58 (78) 100 11/19/19 08:45 85 25 123/54 (77) 100 11/19/19 08:30 84 25 119/53 (75) 100 11/19/19 08:15 86 26 120/57 (78) 100 11/19/19 08:00 80 11/19/19 08:00 86 11/19/19 08:00 120/57 11/19/19 08:00 99.1 86 25 124/57 (79) 100 11/19/19 07:46 86 26 80 11/19/19 07:00 87 25 125/62 (83) 100 11/19/19 07:00 125/62 11/19/19 06:05 126/57 11/19/19 06:00 84 25 126/57 (80) 100 11/19/19 06:00 126/57 11/19/19 05:00 120/61 11/19/19 05:00 81 26 120/61 (80) 100 11/19/19 04:00 Mechanical Ventilator 11/19/19 04:00 99.4 80 27 125/55 (78) 100 11/19/19 04:00 125/55 11/19/19 04:00 85 11/19/19 04:00 80 11/19/19 03:56 80 28 80 11/19/19 03:00 119/57 11/19/19 03:00 83 27 119/57 (77) 100 11/19/19 02:30 82 27 112/56 (74) 100 11/19/19 02:00 122/55 11/19/19 02:00 81 27 122/55 (77) 100 11/19/19 01:00 80 28 121/57 (78) 100 11/19/19 01:00 121/57 11/19/19 00:11 112/56 11/19/19 00:00 Mechanical Ventilator 6/6/20 00:00 99.7 83 28 112/56 (74) 100 11/19/19 00:00 112/56 11/19/19 00:00 81 11/19/19 00:00 80 11/18/19 23:00 112/54 11/18/19 23:00 82 28 112/54 (73) 100 11/18/19 22:00 114/51 11/18/19 22:00 80 28 114/51 (72) 100 11/18/19 21:00 112/51 11/18/19 21:00 78 28 112/51 (71) 100 11/18/19 20:25 79 31 80 11/18/19 20:00 99.9 78 28 109/55 (73) 100 11/18/19 20:00 Mechanical Ventilator 11/18/19 20:00 109/55 11/18/19 20:00 77 11/18/19 19:00 77 27 113/54 (73) 100 11/18/19 19:00 113/54 11/18/19 18:45 78 29 101/53 (69) 100 11/18/19 18:30 80 28 106/53 (70) 100 11/18/19 18:15 82 28 110/52 (71) 100 11/18/19 18:00 83 28 103/50 (67) 100 11/18/19 18:00 103/50 11/18/19 17:45 83 29 98/53 (68) 100 11/18/19 17:44 101/48 11/18/19 17:30 82 30 101/48 (65) 100 11/18/19 17:15 81 31 110/56 (74) 100 11/18/19 17:00 81 31 119/58 (78) 100 11/18/19 17:00 119/58 11/18/19 16:45 81 32 123/59 (80) 100 11/18/19 16:30 82 32 118/57 (77) 100 11/18/19 16:15 83 32 116/58 (77) 100 11/18/19 16:00 81 11/18/19 16:00 80 11/18/19 16:00 124/59 11/18/19 16:00 99.8 81 29 124/59 (80) 100 11/18/19 16:00 Mechanical Ventilator 11/18/19 15:45 81 22 124/60 (81) 100 11/18/19 15:30 80 31 126/58 (80) 100 11/18/19 15:15 80 32 125/59 (81) 100 11/18/19 15:00 81 32 125/59 (81) 100 11/18/19 15:00 125/59 General Appearance: WD/WN, on vent - remainder of exam deferred, as pt on COVID isolation Intake and Output 11/18/19 11/19/19 19:00 07:00 Intake Total 3039.19 ml 2435.685 ml Output Total 1210 ml 250 ml Balance 1829.19 ml 2185.685 ml IV Total 2939.19 ml 2435.685 ml Tube Feeding 0 ml 0 ml Other 100 ml Output Urine Total 410 ml 50 ml Stool Total 800 ml 200 ml Laboratory Tests Test 11/19/19 06:25 11/19/19 08:29 White Blood Count 32.2 K/UL (4.8-10.8) *H Red Blood Count 2.93 M/UL (4.70-6.10) L Hemoglobin 8.0 G/DL (14.2-18.0) L Hematocrit 24.1 % (42.0-52.0) L Mean Corpuscular Volume 82 FL (80-99) Mean Corpuscular Hemoglobin 27.3 PG (27.0-31.0) Mean Corpuscular Hemoglobin Concent 33.2 G/DL (32.0-36.0) Red Cell Distribution Width 13.5 % (11.6-14.8) Platelet Count 387 K/UL (150-450) Mean Platelet Volume 5.3 FL (6.5-10.1) L Neutrophils (%) (Auto) % (45.0-75.0) Lymphocytes (%) (Auto) % (20.0-45.0) Monocytes (%) (Auto) % (1.0-10.0) Eosinophils (%) (Auto) % (0.0-3.0) Basophils (%) (Auto) % (0.0-2.0) Differential Total Cells Counted 100 Neutrophils % (Manual) 89 % (45-75) H Lymphocytes % (Manual) 4 % (20-45) L Monocytes % (Manual) 7 % (1-10) Eosinophils % (Manual) 0 % (0-3) Basophils % (Manual) 0 % (0-2) Band Neutrophils 0 % (0-8) Platelet Estimate Adequate Platelet Morphology Normal Hypochromasia 2+ Anisocytosis 1+ Sodium Level 140 MMOL/L (136-145) Potassium Level 4.5 MMOL/L (3.5-5.1) Chloride Level 109 MMOL/L (98-107) H Carbon Dioxide Level 17 MMOL/L (21-32) L Anion Gap 14 mmol/L (5-15) Blood Urea Nitrogen 57 mg/dL (7-18) H Creatinine 2.0 MG/DL (0.55-1.30) H Estimat Glomerular Filtration Rate 33.0 mL/min (>60) Glucose Level 150 MG/DL (74-106) H Lactic Acid Level 2.50 mmol/L (0.4-2.0) H Uric Acid 9.4 MG/DL (2.6-7.2) H Calcium Level 6.4 MG/DL (8.5-10.1) L Phosphorus Level 4.2 MG/DL (2.5-4.9) Magnesium Level 2.0 MG/DL (1.8-2.4) Total Bilirubin 0.3 MG/DL (0.2-1.0) Gamma Glutamyl Transpeptidase 33 U/L (5-85) Aspartate Amino Transf (AST/SGOT) 66 U/L (15-37) H Alanine Aminotransferase (ALT/SGPT) 15 U/L (12-78) Alkaline Phosphatase 77 U/L (46-116) Lactate Dehydrogenase 531 U/L (81-234) H Total Creatine Kinase 89 U/L (26-308) Troponin I 0.013 ng/mL (0.000-0.056) C-Reactive Protein, Quantitative 23.2 mg/dL (0.00-0.90) H Pro-B-Type Natriuretic Peptide 5880 pg/mL (0-125) H Total Protein 4.8 G/DL (6.4-8.2) L Albumin 0.9 G/DL (3.4-5.0) L Globulin 3.9 g/dL Albumin/Globulin Ratio 0.2 (1.0-2.7) L Cortisol AM Sample Pending Arterial Blood pH 7.334 (7.350-7.450) Arterial Blood Partial Pressure CO2 30.9 mmHg (35.0-45.0) L Arterial Blood Partial Pressure O2 314.4 mmHg (75.0-100.0) H Arterial Blood HCO3 16.1 mmol/L (22.0-26.0) *L Arterial Blood Oxygen Saturation 98.9 % (95-100) Arterial Blood Base Excess -8.8 (-2-2) L Michael Test Positive Microbiology Date/Time Source Procedure Growth Status 11/18/19 14:00 Urine,Clean Catch Urine Culture - Preliminary NO GROWTH Resulted Nell Mosley MD Nov 19, 2019 14:55
--- NOTE | 2019-11-19 19:16 | Infectious Diseases Prog Note ---
Assessment/Plan Assessment/Plan Assessment: PEA arrest> unstable SVT s/p cardioversion 11/17 Septic shock- maxed on 2 pressors 11/17 Fever, recurrent Leukocytosis; worsened Pneumonia Acute hypoxic resp failure- sp NRB 15L, now VDRF 11/17 - 2ry to COVID19 and superimposed bacterial PNA -11/17 CXR: Bilateral lower lobe atelectasis/infiltrates, slightly increased. No large pleural effusions. -11/15 CXR: New/increased infiltrates at the left lateral lung base -11/11 CXR: Mild interstitial thickening is slightly improved. -11/10 CXR: Hazy basilar infiltrates left greater than right. sp cx PsA ([facility] S), P.mirabilis ([facility] S), MRSA (S Vanco CARLOS 1, bactrim; R tetracycline ) -11/10 SARS-COV2 positive UTI c/w bacteremia -u/a wbc 5-10, nit neg, leuk +1, RBC TNCT; ucx 10-20k E. faecalis (S amp, vanco) -11/10 Bcx 2/4 E. faecalis (S Vancomycin, AMP) CONS bacteremia- likely contaminant -11/10 Bcx 2/4 S. 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 Will continue to follow along with you. Discussed with RN and pharm Subjective Allergies: Coded Allergies: No Known Allergies (Unverified , 09/16/19) Subjective Tmax 102. Levophed @10. titrated off phenylepherine. FiO2 80% Objective Vital Signs Last 24 Hour Vital Signs Date Time Temp Pulse Resp B/P (MAP) Pulse Ox O2 Delivery O2 Flow Rate FiO2 11/19/19 19:00 84 21 90/48 (62) 100 11/19/19 18:15 85 22 96/50 (65) 100 11/19/19 18:00 84 22 97/46 (63) 100 11/19/19 17:00 83 23 98/41 (60) 100 11/19/19 16:00 80 11/19/19 16:00 83 11/19/19 16:00 99.0 86 24 107/52 (70) 100 11/19/19 15:36 88 25 80 11/19/19 15:00 86 22 109/52 (71) 100 11/19/19 14:34 105/53 11/19/19 14:30 83 23 105/55 (72) 100 11/19/19 14:00 82 25 110/50 (70) 100 11/19/19 13:15 84 24 104/52 (69) 100 11/19/19 13:00 107/53 11/19/19 13:00 84 24 112/53 (72) 100 11/19/19 12:49 98.8 11/19/19 12:45 85 23 111/53 (72) 100 11/19/19 12:30 84 22 113/54 (73) 100 11/19/19 12:15 83 24 115/54 (74) 100 11/19/19 12:00 83 11/19/19 12:00 80 11/19/19 12:00 98.9 84 24 114/56 (75) 100 11/19/19 12:00 115/54 11/19/19 11:49 85 23 80 11/19/19 11:30 84 22 115/54 (74) 100 11/19/19 11:15 86 24 113/54 (73) 100 11/19/19 11:00 86 24 108/56 (73) 100 11/19/19 11:00 113/54 11/19/19 10:45 87 24 114/55 (74) 100 11/19/19 10:30 87 24 113/53 (73) 100 11/19/19 10:15 86 25 112/53 (72) 100 11/19/19 10:00 112/53 11/19/19 10:00 87 25 115/55 (75) 100 11/19/19 09:45 87 24 106/53 (70) 100 11/19/19 09:30 91 26 111/54 (73) 100 11/19/19 09:15 88 26 107/52 (70) 100 11/19/19 09:00 107/52 11/19/19 09:00 89 26 120/58 (78) 100 11/19/19 08:45 85 25 123/54 (77) 100 11/19/19 08:30 84 25 119/53 (75) 100 11/19/19 08:15 86 26 120/57 (78) 100 11/19/19 08:00 80 11/19/19 08:00 86 11/19/19 08:00 120/57 11/19/19 08:00 99.1 86 25 124/57 (79) 100 11/19/19 07:46 86 26 80 11/19/19 07:00 87 25 125/62 (83) 100 11/19/19 07:00 125/62 11/19/19 06:05 126/57 11/19/19 06:00 84 25 126/57 (80) 100 11/19/19 06:00 126/57 11/19/19 05:00 120/61 11/19/19 05:00 81 26 120/61 (80) 100 11/19/19 04:00 Mechanical Ventilator 11/19/19 04:00 99.4 80 27 125/55 (78) 100 11/19/19 04:00 125/55 11/19/19 04:00 85 11/19/19 04:00 80 11/19/19 03:56 80 28 80 11/19/19 03:00 119/57 11/19/19 03:00 83 27 119/57 (77) 100 11/19/19 02:30 82 27 112/56 (74) 100 11/19/19 02:00 122/55 11/19/19 02:00 81 27 122/55 (77) 100 11/19/19 01:00 80 28 121/57 (78) 100 11/19/19 01:00 121/57 11/19/19 00:11 112/56 11/19/19 00:00 Mechanical Ventilator 11/19/19 00:00 99.7 83 28 112/56 (74) 100 11/19/19 00:00 112/56 11/19/19 00:00 81 11/19/19 00:00 80 11/18/19 23:00 112/54 11/18/19 23:00 82 28 112/54 (73) 100 11/18/19 22:00 114/51 11/18/19 22:00 80 28 114/51 (72) 100 11/18/19 21:00 112/51 11/18/19 21:00 78 28 112/51 (71) 100 11/18/19 20:25 79 31 80 11/18/19 20:00 99.9 78 28 109/55 (73) 100 11/18/19 20:00 Mechanical Ventilator 11/18/19 20:00 109/55 11/18/19 20:00 77 Height (Feet): 6 Height (Inches): 0.00 Weight (Pounds): 148 General Appearance: no acute distress HEENT: other - ETT Respiratory/Chest: no respiratory distress, no accessory muscle use Skin: other Microbiology Date/Time Source Procedure Growth Status 11/18/19 14:00 Sputum Gram Stain - Final Resulted 11/18/19 14:00 Sputum Sputum Culture Pending Resulted 11/18/19 14:00 Urine,Clean Catch Urine Culture - Preliminary NO GROWTH Resulted Laboratory Tests Test 11/19/19 06:25 11/19/19 08:29 11/19/19 15:10 White Blood Count 32.2 K/UL (4.8-10.8) *H Red Blood Count 2.93 M/UL (4.70-6.10) L Hemoglobin 8.0 G/DL (14.2-18.0) L Hematocrit 24.1 % (42.0-52.0) L Mean Corpuscular Volume 82 FL (80-99) Mean Corpuscular Hemoglobin 27.3 PG (27.0-31.0) Mean Corpuscular Hemoglobin Concent 33.2 G/DL (32.0-36.0) Red Cell Distribution Width 13.5 % (11.6-14.8) Platelet Count 387 K/UL (150-450) Mean Platelet Volume 5.3 FL (6.5-10.1) L Neutrophils (%) (Auto) % (45.0-75.0) Lymphocytes (%) (Auto) % (20.0-45.0) Monocytes (%) (Auto) % (1.0-10.0) Eosinophils (%) (Auto) % (0.0-3.0) Basophils (%) (Auto) % (0.0-2.0) Differential Total Cells Counted 100 Neutrophils % (Manual) 89 % (45-75) H Lymphocytes % (Manual) 4 % (20-45) L Monocytes % (Manual) 7 % (1-10) Eosinophils % (Manual) 0 % (0-3) Basophils % (Manual) 0 % (0-2) Band Neutrophils 0 % (0-8) Platelet Estimate Adequate Platelet Morphology Normal Hypochromasia 2+ Anisocytosis 1+ Sodium Level 140 MMOL/L (136-145) Potassium Level 4.5 MMOL/L (3.5-5.1) Chloride Level 109 MMOL/L (98-107) H Carbon Dioxide Level 17 MMOL/L (21-32) L Anion Gap 14 mmol/L (5-15) Blood Urea Nitrogen 57 mg/dL (7-18) H Creatinine 2.0 MG/DL (0.55-1.30) H Estimat Glomerular Filtration Rate 33.0 mL/min (>60) Glucose Level 150 MG/DL (74-106) H Lactic Acid Level 2.50 mmol/L (0.4-2.0) H 2.40 mmol/L (0.4-2.0) H Uric Acid 9.4 MG/DL (2.6-7.2) H Calcium Level 6.4 MG/DL (8.5-10.1) L Phosphorus Level 4.2 MG/DL (2.5-4.9) Magnesium Level 2.0 MG/DL (1.8-2.4) Total Bilirubin 0.3 MG/DL (0.2-1.0) Gamma Glutamyl Transpeptidase 33 U/L (5-85) Aspartate Amino Transf (AST/SGOT) 66 U/L (15-37) H Alanine Aminotransferase (ALT/SGPT) 15 U/L (12-78) Alkaline Phosphatase 77 U/L (46-116) Lactate Dehydrogenase 531 U/L (81-234) H Total Creatine Kinase 89 U/L (26-308) Troponin I 0.013 ng/mL (0.000-0.056) C-Reactive Protein, Quantitative 23.2 mg/dL (0.00-0.90) H Pro-B-Type Natriuretic Peptide 5880 pg/mL (0-125) H Total Protein 4.8 G/DL (6.4-8.2) L Albumin 0.9 G/DL (3.4-5.0) L Globulin 3.9 g/dL Albumin/Globulin Ratio 0.2 (1.0-2.7) L Cortisol AM Sample Pending Arterial Blood pH 7.334 (7.350-7.450) Arterial Blood Partial Pressure CO2 30.9 mmHg (35.0-45.0) L Arterial Blood Partial Pressure O2 314.4 mmHg (75.0-100.0) H Arterial Blood HCO3 16.1 mmol/L (22.0-26.0) *L Arterial Blood Oxygen Saturation 98.9 % (95-100) Arterial Blood Base Excess -8.8 (-2-2) L Michael Test Positive Current Medications Medications (Trade) Dose Ordered Sig/Leonor Route PRN Reason Start Time Stop Time Status Last Admin Dose Admin Acetaminophen (Tylenol) 650 mg Q4H PRN GT fever 11/18/19 03:00 12/11/19 02:59 11/19/19 12:19 Chlorhexidine Gluconate (Danielle-Hex 2%) 1 applic DAILY@2000 TOPIC 11/18/19 20:00 02/16/20 19:59 11/18/19 20:30 Heparin Sodium (Porcine) (Heparin 5000 units/ml) 5,000 units EVERY 12 HOURS SUBQ 11/18/19 09:00 12/26/19 08:59 11/19/19 10:01 Lorazepam (Ativan 2mg/ml 1ml) 2 mg Q4H PRN IV For Anxiety 11/18/19 12:10 11/25/19 12:09 Meropenem 1 gm/ Sodium Chloride 55 ml @ 110 mls/hr Q12HR IVPB 11/18/19 14:00 11/23/19 13:59 11/19/19 09:58 Metronidazole 100 ml @ 100 mls/hr Q8HR IVPB 11/18/19 06:00 11/24/19 23:59 11/19/19 14:31 Morphine Sulfate (Morphine Sulfate) 4 mg Q4H PRN IVP For Pain 11/18/19 12:10 11/25/19 12:09 Norepinephrine Bitartrate 8 mg/ Dextrose 558 ml @ 0 mls/hr Q24H IV 11/18/19 10:00 12/18/19 09:59 11/19/19 14:34 Ondansetron HCl (Zofran) 4 mg Q6H PRN IVP Nausea & Vomiting 11/18/19 03:00 12/11/19 08:59 Pantoprazole (Protonix) 40 mg DAILY IV 11/19/19 09:00 12/19/19 08:59 11/19/19 09:58 Phenylephrine HCl 50 mg/Dextrose 250 ml @ 0 mls/hr Q24H IV 11/18/19 03:15 12/18/19 03:14 11/18/19 10:46 Sodium Chloride 1,000 ml @ 100 mls/hr Q10H IV 11/18/19 12:45 12/18/19 12:44 11/19/19 19:07 Vancomycin HCl (Firvanq) 125 mg FOUR TIMES A DAY NG 11/18/19 09:00 11/26/19 23:59 11/19/19 17:54 Vancomycin HCl (Vanco pharmacy to dose) 1 ea DAILY PRN MISC Per rx protocol 11/18/19 09:00 12/11/19 08:59 Hadley Taylor MD Nov 19, 2019 19:16
--- NOTE | 2019-11-19 19:51 | General Progress Note ---
Assessment/Plan Problem List: (1) Acute respiratory failure ICD Codes: J96.00 - Acute respiratory failure, unspecified whether with hypoxia or hypercapnia SNOMED: 81357272 (2) Leucocytosis ICD Codes: D72.829 - Elevated white blood cell count, unspecified SNOMED: 366161806, 522295206 (3) Hyperkalemia ICD Codes: E87.5 - Hyperkalemia SNOMED: 44943598 (4) 2019 novel coronavirus disease (COVID-19) ICD Codes: U07.1 - COVID-19 SNOMED: 867372503 (5) Severe malnutrition ICD Codes: E43 - Unspecified severe protein-calorie malnutrition SNOMED: 83653906 (6) Sepsis ICD Codes: A41.9 - Sepsis, unspecified organism SNOMED: 72198333 Qualifiers: Qualified Codes: A41.9 - Sepsis, unspecified organism; R65.20 - Severe sepsis without septic shock; J96.01 - Acute respiratory failure with hypoxia (7) DM (diabetes mellitus) ICD Codes: E11.9 - Type 2 diabetes mellitus without complications SNOMED: 51819726 (8) ARF (acute renal failure) ICD Codes: N17.9 - Acute kidney failure, unspecified SNOMED: 24570740 Qualifiers: Qualified Codes: N17.9 - Acute kidney failure, unspecified (9) Aspiration pneumonia ICD Codes: J69.0 - Pneumonitis due to inhalation of food and vomit SNOMED: 586431495 (10) Hypertension ICD Codes: I10 - Essential (primary) hypertension SNOMED: 73220565 (11) UTI (urinary tract infection) ICD Codes: N39.0 - Urinary tract infection, site not specified SNOMED: 31372034 Qualifiers: Qualified Codes: N30.00 - Acute cystitis without hematuria (12) Anemia ICD Codes: D64.9 - Anemia, unspecified SNOMED: 080396193 Qualifiers: Qualified Codes: D64.9 - Anemia, unspecified (13) Respiratory failure with hypoxia ICD Codes: J96.91 - Respiratory failure, unspecified with hypoxia SNOMED: 73949222714966186 Qualifiers: Qualified Codes: J96.01 - Acute respiratory failure with hypoxia (14) Suspected COVID-19 virus infection ICD Codes: Z20.828 - Contact with and (suspected) exposure to other viral communicable diseases SNOMED: 126230855 Status: not improved, unchanged Assessment/Plan: persistent leukocytosis sepsis anemia afebrile poor prognosis supportive therpay uti Subjective ROS Limited/Unobtainable: Yes Allergies: Coded Allergies: No Known Allergies (Unverified , 09/16/19) Objective Last 24 Hour Vital Signs Date Time Temp Pulse Resp B/P (MAP) Pulse Ox O2 Delivery O2 Flow Rate FiO2 11/19/19 19:00 84 21 90/48 (62) 100 11/19/19 18:15 85 22 96/50 (65) 100 11/19/19 18:00 84 22 97/46 (63) 100 11/19/19 17:00 83 23 98/41 (60) 100 11/19/19 16:00 80 11/19/19 16:00 83 11/19/19 16:00 99.0 86 24 107/52 (70) 100 11/19/19 15:36 88 25 80 11/19/19 15:00 86 22 109/52 (71) 100 11/19/19 14:34 105/53 11/19/19 14:30 83 23 105/55 (72) 100 11/19/19 14:00 82 25 110/50 (70) 100 11/19/19 13:15 84 24 104/52 (69) 100 11/19/19 13:00 107/53 11/19/19 13:00 84 24 112/53 (72) 100 11/19/19 12:49 98.8 11/19/19 12:45 85 23 111/53 (72) 100 11/19/19 12:30 84 22 113/54 (73) 100 11/19/19 12:15 83 24 115/54 (74) 100 11/19/19 12:00 83 11/19/19 12:00 80 11/19/19 12:00 98.9 84 24 114/56 (75) 100 11/19/19 12:00 115/54 11/19/19 11:49 85 23 80 11/19/19 11:30 84 22 115/54 (74) 100 11/19/19 11:15 86 24 113/54 (73) 100 11/19/19 11:00 86 24 108/56 (73) 100 11/19/19 11:00 113/54 11/19/19 10:45 87 24 114/55 (74) 100 11/19/19 10:30 87 24 113/53 (73) 100 11/19/19 10:15 86 25 112/53 (72) 100 11/19/19 10:00 112/53 11/19/19 10:00 87 25 115/55 (75) 100 11/19/19 09:45 87 24 106/53 (70) 100 11/19/19 09:30 91 26 111/54 (73) 100 11/19/19 09:15 88 26 107/52 (70) 100 11/19/19 09:00 107/52 11/19/19 09:00 89 26 120/58 (78) 100 11/19/19 08:45 85 25 123/54 (77) 100 11/19/19 08:30 84 25 119/53 (75) 100 11/19/19 08:15 86 26 120/57 (78) 100 11/19/19 08:00 80 11/19/19 08:00 86 11/19/19 08:00 120/57 11/19/19 08:00 99.1 86 25 124/57 (79) 100 11/19/19 07:46 86 26 80 11/19/19 07:00 87 25 125/62 (83) 100 11/19/19 07:00 125/62 11/19/19 06:05 126/57 11/19/19 06:00 84 25 126/57 (80) 100 11/19/19 06:00 126/57 11/19/19 05:00 120/61 11/19/19 05:00 81 26 120/61 (80) 100 11/19/19 04:00 Mechanical Ventilator 11/19/19 04:00 99.4 80 27 125/55 (78) 100 11/19/19 04:00 125/55 11/19/19 04:00 85 11/19/19 04:00 80 11/19/19 03:56 80 28 80 11/19/19 03:00 119/57 11/19/19 03:00 83 27 119/57 (77) 100 11/19/19 02:30 82 27 112/56 (74) 100 11/19/19 02:00 122/55 11/19/19 02:00 81 27 122/55 (77) 100 11/19/19 01:00 80 28 121/57 (78) 100 11/19/19 01:00 121/57 11/19/19 00:11 112/56 11/19/19 00:00 Mechanical Ventilator 11/19/19 00:00 99.7 83 28 112/56 (74) 100 11/19/19 00:00 112/56 11/19/19 00:00 81 11/19/19 00:00 80 11/18/19 23:00 112/54 11/18/19 23:00 82 28 112/54 (73) 100 11/18/19 22:00 114/51 11/18/19 22:00 80 28 114/51 (72) 100 11/18/19 21:00 112/51 11/18/19 21:00 78 28 112/51 (71) 100 11/18/19 20:25 79 31 80 11/18/19 20:00 99.9 78 28 109/55 (73) 100 11/18/19 20:00 Mechanical Ventilator 11/18/19 20:00 109/55 11/18/19 20:00 77 Intake and Output 11/18/19 11/19/19 19:00 07:00 Intake Total 3039.19 ml 2435.685 ml Output Total 1210 ml 250 ml Balance 1829.19 ml 2185.685 ml IV Total 2939.19 ml 2435.685 ml Tube Feeding 0 ml 0 ml Other 100 ml Output Urine Total 410 ml 50 ml Stool Total 800 ml 200 ml Laboratory Tests 11/19/19 06:25: White Blood Count 32.2*H, Red Blood Count 2.93L, Hemoglobin 8.0L, Hematocrit 24.1L, Mean Corpuscular Volume 82, Mean Corpuscular Hemoglobin 27.3, Mean Corpuscular Hemoglobin Concent 33.2, Red Cell Distribution Width 13.5, Platelet Count 387, Mean Platelet Volume 5.3L, Neutrophils (%) (Auto) , Lymphocytes (%) ( Auto) , Monocytes (%) (Auto) , Eosinophils (%) (Auto) , Basophils (%) (Auto) , Differential Total Cells Counted 100, Neutrophils % (Manual) 89H, Lymphocytes % (Manual) 4L, Monocytes % (Manual) 7, Eosinophils % (Manual) 0, Basophils % ( Manual) 0, Band Neutrophils 0, Platelet Estimate Adequate, Platelet Morphology Normal, Hypochromasia 2+, Anisocytosis 1+, Sodium Level 140, Potassium Level 4.5 , Chloride Level 109H, Carbon Dioxide Level 17L, Anion Gap 14, Blood Urea Nitrogen 57H, Creatinine 2.0H, Estimat Glomerular Filtration Rate 33.0, Glucose Level 150H, Lactic Acid Level 2.50H, Uric Acid 9.4H, Calcium Level 6.4L, Phosphorus Level 4.2, Magnesium Level 2.0, Total Bilirubin 0.3, Gamma Glutamyl Transpeptidase 33, Aspartate Amino Transf (AST/SGOT) 66H, Alanine Aminotransferase (ALT/SGPT) 15, Alkaline Phosphatase 77, Lactate Dehydrogenase 531H, Total Creatine Kinase 89, Troponin I 0.013, C-Reactive Protein, Quantitative 23.2H, Pro-B-Type Natriuretic Peptide 5880H, Total Protein 4.8L, Albumin 0.9L, Globulin 3.9, Albumin/Globulin Ratio 0.2L, Cortisol AM Sample [ Pending] 11/19/19 08:29: Arterial Blood pH 7.334L, Arterial Blood Partial Pressure CO2 30.9L, Arterial Blood Partial Pressure O2 314.4H, Arterial Blood HCO3 16.1*L, Arterial Blood Oxygen Saturation 98.9, Arterial Blood Base Excess -8.8L, Michael Test Positive 11/19/19 15:10: Lactic Acid Level 2.40H Height (Feet): 6 Height (Inches): 0.00 Weight (Pounds): 148 Singh Rubalcava MD Nov 19, 2019 19:51
[2019-11-19] MEDS ORDERED: Dyna-Hex 2% Top Sol 2oz TOPIC SCH (20:00)
[2019-11-19] MEDS: Dyna-Hex 2% Top Sol 2oz TOPIC SCH (20:04)
[2019-11-20] VITALS (63 sets, daily range): BP systolic 83–129; BP diastolic 37–57
[2019-11-20] MEDS: Phenylephrine 50 MG in D5W 245 ML IV SCH (03:15)
[2019-11-20 05:49] LABS: HEMOGLOBIN 8.6 G/DL (14.2-18.0); MEAN CORPUSCULAR VOLUME 83 FL (80-99); PLATELET COUNT 372 K/UL (150-450); RED BLOOD COUNT 3.02 M/UL (4.70-6.10); RED CELL DISTRIBUTION WIDTH 13.8 % (11.6-14.8)
[2019-11-20 05:51] LABS: WHITE BLOOD COUNT 27.4 K/UL (4.8-10.8)
[2019-11-20 06:07] LABS: ALANINE AMINOTRANSFERASE 15 U/L (12-78); ALBUMIN 0.8 G/DL (3.4-5.0); ALBUMIN/GLOBULIN RATIO 0.2 (1.0-2.7); ALKALINE PHOSPHATASE 72 U/L (46-116); ANION GAP 14 mmol/L (5-15); ASPARTATE AMINO TRANSFERASE 75 U/L (15-37); BILIRUBIN,TOTAL 0.2 MG/DL (0.2-1.0); BLOOD UREA NITROGEN 63 mg/dL (7-18); CALCIUM 6.1 MG/DL (8.5-10.1); CARBON DIOXIDE 17 MMOL/L (21-32); CHLORIDE 104 MMOL/L (98-107); CREATININE 2.5 MG/DL (0.55-1.30); SODIUM 135 MMOL/L (136-145)
[2019-11-20 06:26] LABS: PHOSPHORUS 5.9 MG/DL (2.5-4.9)
--- NOTE | 2019-11-20 06:30 | Hematology/Onc Progress Note ---
Assessment/Plan Assessment/Plan Assessment and Recs # Leukocytosis/elevated white blood cell count, unspecified likely related to underlying stress reaction, smoking v more likely infection, in this case with pna and COVID19++++++++ --> have reviewed peripheral smear and bandemia/neutrophilia noted --> continue antibiotics if they have been started by ID team --> monitor for resolution --> wbc 35k-->31.2-->25-->27.4 --> abx/antivral: remdesivir/vanc/cefepime-->vanc/flagyl/monique # Thrombocytosis - if plt count >400k, most usually is a reactive process and will improve once exacerbant removed as well --> in this case due to underlying infection --> plt trend 646k-->672 -->547-->372 # Anemia of chronic disease due to underlying chronic medical issues, multifactorial v Gi bleed --> Anemia workup has been ordered, rule out gi bleed -> ferritin 1339 --> No evidence of hemolysis is noted, peripheral smear has been reviewed. --> Hgb goal >7. Transfuse prn. --> Epogen or iron at this time is not particularly indicated --> Medications have been reviewed --> low threshold for gi evaluation in case has occult + --> bone marrow biopsy is not indicated given the other more likely causes --> hgb 9.5-->9.8->8.8-->8.6 --> ddimer remains elevated currently # Acute hypoxic resp failure- on NRB 15L- 2ry to COVID19 --> per id and pulm recs --> breathing treatments and rep cxr --> 11/15 cxr: New/increased infiltrates at the left lateral lung base # UTI c/w bacteremia --> abx per id # Cdiff colitis # MONICA, improving # Deep tissue injury (sacrum, L heel) # HTN # Dm2 # MDD # Dysphagia s/p GT # malnutrition # decubitus ulcer # non verbal # 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 Greatly appreciate consultation. Subjective Allergies: Coded Allergies: No Known Allergies (Unverified , 09/16/19) Subjective 11/15 tele, no acute events, cxr and labs reviewed, nrb 15l, remdesivir 11/16 remains on iso, breathing is improved, no night sweats 11/17 remains with fever, cooling blankets, labs noted, no bleed hgb 8.8 11/19 icu, no acute events, vent, levo gtt, meds and labs reviewed Objective Objective Current Medications Medications (Trade) Dose Ordered Sig/Leonor Route PRN Reason Start Time Stop Time Status Last Admin Dose Admin Acetaminophen (Tylenol) 650 mg Q4H PRN GT fever 11/18/19 03:00 12/11/19 02:59 11/19/19 20:04 Chlorhexidine Gluconate (Danielle-Hex 2%) 1 applic DAILY@2000 TOPIC 11/18/19 20:00 02/16/20 19:59 11/19/19 20:04 Heparin Sodium (Porcine) (Heparin 5000 units/ml) 5,000 units EVERY 12 HOURS SUBQ 11/18/19 09:00 12/26/19 08:59 11/19/19 20:04 Lorazepam (Ativan 2mg/ml 1ml) 2 mg Q4H PRN IV For Anxiety 11/18/19 12:10 11/25/19 12:09 11/20/19 03:50 Meropenem 1 gm/ Sodium Chloride 55 ml @ 110 mls/hr Q12HR IVPB 11/18/19 14:00 11/23/19 13:59 11/19/19 20:05 Metronidazole 100 ml @ 100 mls/hr Q8HR IVPB 11/18/19 06:00 11/24/19 23:59 11/20/19 03:51 Morphine Sulfate (Morphine Sulfate) 4 mg Q4H PRN IVP For Pain 11/18/19 12:10 11/25/19 12:09 Norepinephrine Bitartrate 8 mg/ Dextrose 558 ml @ 0 mls/hr Q24H IV 11/18/19 10:00 12/18/19 09:59 11/19/19 14:34 Ondansetron HCl (Zofran) 4 mg Q6H PRN IVP Nausea & Vomiting 11/18/19 03:00 12/11/19 08:59 Pantoprazole (Protonix) 40 mg DAILY IV 11/19/19 09:00 12/19/19 08:59 11/19/19 09:58 Phenylephrine HCl 50 mg/Dextrose 250 ml @ 0 mls/hr Q24H IV 11/18/19 03:15 12/18/19 03:14 11/18/19 10:46 Sodium Chloride 1,000 ml @ 100 mls/hr Q10H IV 11/18/19 12:45 12/18/19 12:44 11/20/19 03:50 Vancomycin HCl (Firvanq) 125 mg FOUR TIMES A DAY NG 11/18/19 09:00 11/26/19 23:59 11/19/19 20:05 Vancomycin HCl (Vanco pharmacy to dose) 1 ea DAILY PRN MISC Per rx protocol 11/18/19 09:00 12/11/19 08:59 Last 24 Hour Vital Signs Date Time Temp Pulse Resp B/P (MAP) Pulse Ox O2 Delivery O2 Flow Rate FiO2 11/20/19 05:15 90 21 91/51 (64) 99 11/20/19 05:00 91/51 11/20/19 05:00 89 20 93/47 (62) 100 11/20/19 04:30 87 20 90/54 (66) 98 11/20/19 04:00 86 11/20/19 04:00 90/54 11/20/19 04:00 35 11/20/19 04:00 97.9 90 20 93/52 (66) 100 11/20/19 03:30 91 20 93/57 (69) 100 11/20/19 03:15 83 91/52 11/20/19 03:00 92/54 11/20/19 03:00 90 20 93/44 (60) 100 11/20/19 02:37 86 23 80 11/20/19 02:30 91 20 94/45 (61) 98 11/20/19 02:00 93/51 11/20/19 02:00 90 20 92/52 (65) 95 11/20/19 01:00 83 20 91/50 (64) 97 11/20/19 01:00 91/52 11/20/19 00:45 85 19 95/48 (64) 100 11/20/19 00:30 82 20 90/48 (62) 100 11/20/19 00:15 83 20 92/47 (62) 100 11/20/19 00:00 97.5 84 21 88/49 (62) 100 11/20/19 00:00 88/49 11/20/19 00:00 84 11/20/19 00:00 35 11/19/19 23:45 84 21 94/37 (56) 100 11/19/19 23:30 83 20 91/49 (63) 100 11/19/19 23:15 81 21 90/47 (61) 100 11/19/19 23:00 90/47 11/19/19 23:00 80 20 91/48 (62) 100 11/19/19 22:45 82 20 90/49 (63) 100 11/19/19 22:36 87 22 80 11/19/19 22:30 81 20 88/49 (62) 100 11/19/19 22:15 83 22 89/45 (60) 100 11/19/19 22:00 94/52 11/19/19 22:00 84 20 85/40 (55) 100 11/19/19 21:45 81 21 93/51 (65) 100 11/19/19 21:30 85 21 100/54 (69) 100 11/19/19 21:15 85 21 96/43 (60) 100 11/19/19 21:00 83 21 101/46 (64) 100 11/19/19 21:00 100/59 11/19/19 20:45 85 20 105/56 (72) 100 11/19/19 20:30 86 21 102/53 (69) 100 11/19/19 20:15 87 21 91/50 (64) 100 11/19/19 20:00 40 11/19/19 20:00 98/60 11/19/19 20:00 96.6 85 21 95/49 (64) 100 11/19/19 19:45 83 20 92/47 (62) 100 11/19/19 19:40 81 11/19/19 19:30 83 22 96/48 (64) 100 11/19/19 19:00 84 21 90/48 (62) 100 11/19/19 18:45 84 21 80 11/19/19 18:15 85 22 96/50 (65) 100 11/19/19 18:00 84 22 97/46 (63) 100 11/19/19 17:00 83 23 98/41 (60) 100 11/19/19 16:00 80 11/19/19 16:00 83 11/19/19 16:00 99.0 86 24 107/52 (70) 100 11/19/19 15:36 88 25 80 11/19/19 15:00 86 22 109/52 (71) 100 11/19/19 14:34 105/53 11/19/19 14:30 83 23 105/55 (72) 100 11/19/19 14:00 82 25 110/50 (70) 100 11/19/19 13:15 84 24 104/52 (69) 100 11/19/19 13:00 107/53 11/19/19 13:00 84 24 112/53 (72) 100 11/19/19 12:49 98.8 11/19/19 12:45 85 23 111/53 (72) 100 11/19/19 12:30 84 22 113/54 (73) 100 11/19/19 12:15 83 24 115/54 (74) 100 11/19/19 12:00 83 11/19/19 12:00 80 11/19/19 12:00 98.9 84 24 114/56 (75) 100 11/19/19 12:00 115/54 11/19/19 11:49 85 23 80 11/19/19 11:30 84 22 115/54 (74) 100 11/19/19 11:15 86 24 113/54 (73) 100 11/19/19 11:00 86 24 108/56 (73) 100 11/19/19 11:00 113/54 11/19/19 10:45 87 24 114/55 (74) 100 11/19/19 10:30 87 24 113/53 (73) 100 11/19/19 10:15 86 25 112/53 (72) 100 11/19/19 10:00 112/53 11/19/19 10:00 87 25 115/55 (75) 100 11/19/19 09:45 87 24 106/53 (70) 100 11/19/19 09:30 91 26 111/54 (73) 100 11/19/19 09:15 88 26 107/52 (70) 100 11/19/19 09:00 107/52 11/19/19 09:00 89 26 120/58 (78) 100 11/19/19 08:45 85 25 123/54 (77) 100 11/19/19 08:30 84 25 119/53 (75) 100 11/19/19 08:15 86 26 120/57 (78) 100 11/19/19 08:00 80 11/19/19 08:00 86 11/19/19 08:00 120/57 11/19/19 08:00 99.1 86 25 124/57 (79) 100 11/19/19 07:46 86 26 80 11/19/19 07:00 87 25 125/62 (83) 100 11/19/19 07:00 125/62 11/19/19 06:05 126/57 11/19/19 06:00 84 25 126/57 (80) 100 11/19/19 06:00 126/57 11/19/19 05:00 120/61 11/19/19 05:00 81 26 120/61 (80) 100 11/19/19 04:00 Mechanical Ventilator 11/19/19 04:00 99.4 80 27 125/55 (78) 100 11/19/19 04:00 125/55 11/19/19 04:00 85 11/19/19 04:00 80 11/19/19 03:56 80 28 80 11/19/19 03:00 119/57 11/19/19 03:00 83 27 119/57 (77) 100 11/19/19 02:30 82 27 112/56 (74) 100 11/19/19 02:00 122/55 11/19/19 02:00 81 27 122/55 (77) 100 11/19/19 01:00 80 28 121/57 (78) 100 11/19/19 01:00 121/57 11/19/19 00:11 112/56 11/19/19 00:00 Mechanical Ventilator 11/19/19 00:00 99.7 83 28 112/56 (74) 100 11/19/19 00:00 112/56 11/19/19 00:00 81 11/19/19 00:00 80 11/18/19 23:00 112/54 11/18/19 23:00 82 28 112/54 (73) 100 11/18/19 22:00 114/51 11/18/19 22:00 80 28 114/51 (72) 100 11/18/19 21:00 112/51 11/18/19 21:00 78 28 112/51 (71) 100 11/18/19 20:25 79 31 80 11/18/19 20:00 99.9 78 28 109/55 (73) 100 11/18/19 20:00 Mechanical Ventilator 11/18/19 20:00 109/55 11/18/19 20:00 77 11/18/19 19:00 77 27 113/54 (73) 100 11/18/19 19:00 113/54 11/18/19 18:45 78 29 101/53 (69) 100 11/18/19 18:30 80 28 106/53 (70) 100 11/18/19 18:15 82 28 110/52 (71) 100 11/18/19 18:00 83 28 103/50 (67) 100 11/18/19 18:00 103/50 11/18/19 17:45 83 29 98/53 (68) 100 11/18/19 17:44 101/48 11/18/19 17:30 82 30 101/48 (65) 100 11/18/19 17:15 81 31 110/56 (74) 100 11/18/19 17:00 81 31 119/58 (78) 100 11/18/19 17:00 119/58 11/18/19 16:45 81 32 123/59 (80) 100 11/18/19 16:30 82 32 118/57 (77) 100 11/18/19 16:15 83 32 116/58 (77) 100 11/18/19 16:00 81 11/18/19 16:00 80 11/18/19 16:00 124/59 11/18/19 16:00 99.8 81 29 124/59 (80) 100 11/18/19 16:00 Mechanical Ventilator 11/18/19 15:45 81 22 124/60 (81) 100 11/18/19 15:30 80 31 126/58 (80) 100 11/18/19 15:15 80 32 125/59 (81) 100 11/18/19 15:00 81 32 125/59 (81) 100 11/18/19 15:00 125/59 11/18/19 14:46 78 32 100 11/18/19 14:45 82 31 121/59 (79) 100 11/18/19 14:30 80 30 127/55 (79) 100 11/18/19 14:15 78 27 122/57 (78) 100 11/18/19 14:00 80 30 129/54 (79) 100 11/18/19 14:00 129/54 11/18/19 13:45 80 29 127/55 (79) 100 11/18/19 13:30 81 30 130/55 (80) 100 11/18/19 13:15 83 29 137/56 (83) 100 11/18/19 13:00 135/54 11/18/19 13:00 84 29 135/54 (81) 100 11/18/19 12:45 85 28 123/54 (77) 100 11/18/19 12:30 82 28 100/54 (69) 100 11/18/19 12:30 100/54 11/18/19 12:15 83 26 139/56 (83) 100 11/18/19 12:00 Mechanical Ventilator 11/18/19 12:00 102.0 86 27 146/56 (86) 100 11/18/19 12:00 80 11/18/19 12:00 146/56 11/18/19 12:00 86 11/18/19 11:30 86 27 153/56 (88) 100 11/18/19 11:03 88 31 100 11/18/19 11:00 88 26 158/56 (90) 100 11/18/19 11:00 153/59 11/18/19 10:46 92 71/41 11/18/19 10:30 97 26 71/41 (51) 100 11/18/19 10:00 145/61 11/18/19 10:00 90 27 146/57 (86) 100 11/18/19 09:30 92 31 148/62 (90) 100 11/18/19 09:00 80 30 152/61 (91) 100 11/18/19 09:00 148/59 11/18/19 08:53 151/59 11/18/19 08:30 81 29 146/59 (88) 100 11/18/19 08:00 101.8 89 31 147/61 (89) 100 11/18/19 08:00 150/58 11/18/19 08:00 80 11/18/19 08:00 Mechanical Ventilator 11/18/19 08:00 89 11/18/19 07:17 84 31 100 11/18/19 07:00 91 17 149/61 (90) 100 11/18/19 07:00 149/61 11/18/19 06:28 80 143/57 Intake and Output 11/19/19 11/20/19 19:00 07:00 Intake Total 2107.86 ml 1509.46 ml Output Total 20 ml 125 ml Balance 2087.86 ml 1384.46 ml Free Water 300 ml IV Total 1762.86 ml 1499.46 ml Tube Feeding 0 ml 10 ml Other 45 ml Output Urine Total 20 ml 125 ml # Bowel Movements 80 Labs Test 11/18/19 03:30 11/18/19 05:00 11/18/19 07:17 11/18/19 14:00 Arterial Blood pH 7.001 (7.350-7.450) 7.349 (7.350-7.450) Arterial Blood Partial Pressure CO2 73.7 mmHg (35.0-45.0) 37.0 mmHg (35.0-45.0) Arterial Blood Partial Pressure O2 217.1 mmHg (75.0-100.0) 245.5 mmHg (75.0-100.0) Arterial Blood HCO3 17.8 mmol/L (22.0-26.0) 19.9 mmol/L (22.0-26.0) Arterial Blood Oxygen Saturation 98.3 % (95-100) 98.8 % (95-100) Arterial Blood Base Excess -13.3 (-2-2) -5.2 (-2-2) Michael Test Positive Positive White Blood Count 30.7 K/UL (4.8-10.8) Red Blood Count 3.17 M/UL (4.70-6.10) Hemoglobin 8.8 G/DL (14.2-18.0) Hematocrit 27.1 % (42.0-52.0) Mean Corpuscular Volume 86 FL (80-99) Mean Corpuscular Hemoglobin 27.8 PG (27.0-31.0) Mean Corpuscular Hemoglobin Concent 32.5 G/DL (32.0-36.0) Red Cell Distribution Width 13.7 % (11.6-14.8) Platelet Count 547 K/UL (150-450) Mean Platelet Volume 5.5 FL (6.5-10.1) Neutrophils (%) (Auto) % (45.0-75.0) Lymphocytes (%) (Auto) % (20.0-45.0) Monocytes (%) (Auto) % (1.0-10.0) Eosinophils (%) (Auto) % (0.0-3.0) Basophils (%) (Auto) % (0.0-2.0) Differential Total Cells Counted 100 Neutrophils % (Manual) 73 % (45-75) Lymphocytes % (Manual) 6 % (20-45) Monocytes % (Manual) 2 % (1-10) Eosinophils % (Manual) 0 % (0-3) Basophils % (Manual) 0 % (0-2) Metamyelocytes % 1 % (0-0) Myelocytes % 7 % (0-0) Band Neutrophils 11 % (0-8) Platelet Estimate Increased Platelet Morphology Normal Hypochromasia 1+ Sodium Level 150 MMOL/L (136-145) Potassium Level 4.3 MMOL/L (3.5-5.1) Chloride Level 114 MMOL/L (98-107) Carbon Dioxide Level 21 MMOL/L (21-32) Anion Gap 15 mmol/L (5-15) Blood Urea Nitrogen 57 mg/dL (7-18) Creatinine 1.8 MG/DL (0.55-1.30) Estimat Glomerular Filtration Rate 37.3 mL/min (>60) Glucose Level 191 MG/DL (74-106) Uric Acid 9.9 MG/DL (2.6-7.2) Calcium Level 7.3 MG/DL (8.5-10.1) Phosphorus Level 6.1 MG/DL (2.5-4.9) Magnesium Level 2.6 MG/DL (1.8-2.4) Total Bilirubin 0.2 MG/DL (0.2-1.0) Direct Bilirubin 0.1 MG/DL (0.0-0.3) Aspartate Amino Transf (AST/SGOT) 45 U/L (15-37) Alanine Aminotransferase (ALT/SGPT) 19 U/L (12-78) Alkaline Phosphatase 95 U/L (46-116) Troponin I 0.038 ng/mL (0.000-0.056) Total Protein 5.0 G/DL (6.4-8.2) Albumin 1.0 G/DL (3.4-5.0) Globulin 4.0 g/dL Albumin/Globulin Ratio 0.2 (1.0-2.7) Random Vancomycin Level 16.7 ug/mL Urine Color Yellow Urine Appearance Slightly cloudy Urine pH 5 (4.5-8.0) Urine Specific [place] 1.025 (1.005-1.035) Urine Protein 3+ (NEGATIVE) Urine Glucose (UA) 1+ (NEGATIVE) Urine Ketones 1+ (NEGATIVE) Urine Blood 5+ (NEGATIVE) Urine Nitrite Positive (NEGATIVE) Urine Bilirubin Negative (NEGATIVE) Urine Urobilinogen 1 MG/DL (0.0-1.0) Urine Leukocyte Esterase 1+ (NEGATIVE) Urine RBC Tntc /HPF (0 - 0) Urine WBC 2-4 /HPF (0 - 0) Urine Squamous Epithelial Cells None /LPF (NONE/OCC) Urine Bacteria Many /HPF (NONE) Test 11/19/19 06:25 11/19/19 08:29 11/19/19 15:10 11/20/19 04:00 White Blood Count 32.2 K/UL (4.8-10.8) 27.4 K/UL (4.8-10.8) Red Blood Count 2.93 M/UL (4.70-6.10) 3.02 M/UL (4.70-6.10) Hemoglobin 8.0 G/DL (14.2-18.0) 8.6 G/DL (14.2-18.0) Hematocrit 24.1 % (42.0-52.0) 25.0 % (42.0-52.0) Mean Corpuscular Volume 82 FL (80-99) 83 FL (80-99) Mean Corpuscular Hemoglobin 27.3 PG (27.0-31.0) 28.4 PG (27.0-31.0) Mean Corpuscular Hemoglobin Concent 33.2 G/DL (32.0-36.0) 34.3 G/DL (32.0-36.0) Red Cell Distribution Width 13.5 % (11.6-14.8) 13.8 % (11.6-14.8) Platelet Count 387 K/UL (150-450) 372 K/UL (150-450) Mean Platelet Volume 5.3 FL (6.5-10.1) 5.9 FL (6.5-10.1) Neutrophils (%) (Auto) % (45.0-75.0) % (45.0-75.0) Lymphocytes (%) (Auto) % (20.0-45.0) % (20.0-45.0) Monocytes (%) (Auto) % (1.0-10.0) % (1.0-10.0) Eosinophils (%) (Auto) % (0.0-3.0) % (0.0-3.0) Basophils (%) (Auto) % (0.0-2.0) % (0.0-2.0) Differential Total Cells Counted 100 Neutrophils % (Manual) 89 % (45-75) Lymphocytes % (Manual) 4 % (20-45) Monocytes % (Manual) 7 % (1-10) Eosinophils % (Manual) 0 % (0-3) Basophils % (Manual) 0 % (0-2) Band Neutrophils 0 % (0-8) Platelet Estimate Adequate Platelet Morphology Normal Hypochromasia 2+ Anisocytosis 1+ Sodium Level 140 MMOL/L (136-145) 135 MMOL/L (136-145) Potassium Level 4.5 MMOL/L (3.5-5.1) 5.0 MMOL/L (3.5-5.1) Chloride Level 109 MMOL/L (98-107) 104 MMOL/L (98-107) Carbon Dioxide Level 17 MMOL/L (21-32) 17 MMOL/L (21-32) Anion Gap 14 mmol/L (5-15) 14 mmol/L (5-15) Blood Urea Nitrogen 57 mg/dL (7-18) 63 mg/dL (7-18) Creatinine 2.0 MG/DL (0.55-1.30) 2.5 MG/DL (0.55-1.30) Estimat Glomerular Filtration Rate 33.0 mL/min (>60) 25.5 mL/min (>60) Glucose Level 150 MG/DL (74-106) 90 MG/DL (74-106) Lactic Acid Level 2.50 mmol/L (0.4-2.0) 2.40 mmol/L (0.4-2.0) Uric Acid 9.4 MG/DL (2.6-7.2) Calcium Level 6.4 MG/DL (8.5-10.1) 6.1 MG/DL (8.5-10.1) Phosphorus Level 4.2 MG/DL (2.5-4.9) Magnesium Level 2.0 MG/DL (1.8-2.4) Total Bilirubin 0.3 MG/DL (0.2-1.0) 0.2 MG/DL (0.2-1.0) Gamma Glutamyl Transpeptidase 33 U/L (5-85) Aspartate Amino Transf (AST/SGOT) 66 U/L (15-37) 75 U/L (15-37) Alanine Aminotransferase (ALT/SGPT) 15 U/L (12-78) 15 U/L (12-78) Alkaline Phosphatase 77 U/L (46-116) 72 U/L (46-116) Lactate Dehydrogenase 531 U/L (81-234) Total Creatine Kinase 89 U/L (26-308) Troponin I 0.013 ng/mL (0.000-0.056) C-Reactive Protein, Quantitative 23.2 mg/dL (0.00-0.90) Pro-B-Type Natriuretic Peptide 5880 pg/mL (0-125) Total Protein 4.8 G/DL (6.4-8.2) 4.4 G/DL (6.4-8.2) Albumin 0.9 G/DL (3.4-5.0) 0.8 G/DL (3.4-5.0) Globulin 3.9 g/dL 3.6 g/dL Albumin/Globulin Ratio 0.2 (1.0-2.7) 0.2 (1.0-2.7) Arterial Blood pH 7.334 (7.350-7.450) Arterial Blood Partial Pressure CO2 30.9 mmHg (35.0-45.0) Arterial Blood Partial Pressure O2 314.4 mmHg (75.0-100.0) Arterial Blood HCO3 16.1 mmol/L (22.0-26.0) Arterial Blood Oxygen Saturation 98.9 % (95-100) Arterial Blood Base Excess -8.8 (-2-2) Michael Test Positive Random Vancomycin Level 22.6 ug/mL Height (Feet): 6 Height (Inches): 0.00 Weight (Pounds): 148 Objective PE General: alert, chronically Ill Heent: nc, at Neck: full range of motion, supple, no meningismus Respiratory: chest non-tender, decreased breath sounds, crackles, vent++ Cardiovascular: no murmur, tachycardia Gastrointestinal: normal bowel sounds, non tender,+peg Musculoskeletal: back normal, normal range of motion, gait/station normal Neurologic: no pronator KleDeng blancas MD Nov 20, 2019 06:30
[2019-11-20] MEDS: Vancomycin oral 125mg/2.5ml NG SCH ×4 (09:08→20:12)
[2019-11-20] MEDS: Meropenem 1 GM in NS 55 ML IVPB SCH (09:09)
[2019-11-20] MEDS: Pantoprazole Inj IV SCH (09:09)
[2019-11-20] MEDS: Heparin 5000 units/ml inj SUBQ SCH ×2 (09:10→20:14)
--- NOTE | 2019-11-20 09:27 | Diagnostic Imaging Report ---
EXAM: XR Chest, 1 View CLINICAL HISTORY: DYSPNEA TECHNIQUE: Frontal view of the chest. COMPARISON: 1 day prior FINDINGS: Lungs: There is been worsening of moderately consolidating right middle lobe pneumonia. Pleural space: There is a probable small right pleural effusion. No pneumothorax. Heart: Unremarkable. No cardiomegaly. Mediastinum: Unremarkable. Bones/joints: Unremarkable. Tubes, lines and devices: There is an endotracheal tube in good position IMPRESSION: There is been worsening of moderately consolidating right middle lobe pneumonia.
--- NOTE | 2019-11-20 10:09 | Nephrology Progress Note ---
Assessment/Plan Problem List: (1) ARF (acute renal failure) (2) Hyperkalemia (3) DM (diabetes mellitus) (4) Suspected COVID-19 virus infection (5) Sepsis (6) Severe malnutrition Assessment: Severe hypoalbuminemia Assessment his 74-year-old male with multiple Multiple medical problem presents with respiratory symptoms and diarrhea Renal failure most likely prerenal azotemia secondary to dehydration Hyperkalemia on presentation also secondary to dehydration Sepsis pneumonia hypoxia UTI Anemia History of hypertension History of diabetes mellitus Suspected COVID-19 virus infection Hypoalbuminemia Plan C. difficile positive COVID-19 detected November 19: Serum creatinine rising. Urine output decreasing. Will change to IV, D5 normal saline. Will give albumin bolus followed by Lasix 40 mg IV push. Continue to monitor renal parameters and urine output. Continue to avoid nephrotoxic medications as possible. Today's vancomycin level was 22. November 18: Serum creatinine rising. Continues to be full code. Continues to be intubated on ventilator. Remains on IV fluids. Vancomycin levels per pharmacy. Prognosis poor due to sepsis. November 17: Intubated on ventilator in ICU. Will continue half-normal saline 100 cc an hour. Continue per pulmonary and ID. Prognosis poor. Continue to monitor renal parameters. Hydrate with half-normal saline, serum creatinine now at its lowest today. monitor electrolytes Will change the feeding to Nepro and monitor her potassium and other electrolytes Continue per ID Keep the blood pressure and blood sugar in check Monitor renal parameters Previously: Urine studies Monitor intake and output Cultures including stool for C. difficile Per orders Patient's CODE STATUS is full Subjective ROS Limited/Unobtainable: Yes Objective Objective Last 24 Hour Vital Signs Date Time Temp Pulse Resp B/P (MAP) Pulse Ox O2 Delivery O2 Flow Rate FiO2 11/20/19 08:00 86 20 93/43 (60) 100 11/20/19 08:00 35 11/20/19 07:12 84 21 35 11/20/19 07:00 91/52 11/20/19 07:00 86 20 91/45 (60) 100 11/20/19 06:15 86 19 92/49 (63) 99 11/20/19 06:00 92/52 11/20/19 06:00 86 19 92/45 (61) 99 11/20/19 05:45 88 20 98/56 (70) 99 6/7/20 05:30 87 21 92/50 (64) 99 11/20/19 05:15 90 21 91/51 (64) 99 11/20/19 05:00 91/51 11/20/19 05:00 89 20 93/47 (62) 100 11/20/19 04:30 87 20 90/54 (66) 98 11/20/19 04:00 86 11/20/19 04:00 90/54 11/20/19 04:00 35 11/20/19 04:00 97.9 90 20 93/52 (66) 100 11/20/19 03:30 91 20 93/57 (69) 100 11/20/19 03:15 83 91/52 11/20/19 03:00 92/54 11/20/19 03:00 90 20 93/44 (60) 100 11/20/19 02:37 86 23 80 11/20/19 02:30 91 20 94/45 (61) 98 11/20/19 02:00 93/51 11/20/19 02:00 90 20 92/52 (65) 95 11/20/19 01:00 83 20 91/50 (64) 97 11/20/19 01:00 91/52 11/20/19 00:45 85 19 95/48 (64) 100 11/20/19 00:30 82 20 90/48 (62) 100 11/20/19 00:15 83 20 92/47 (62) 100 11/20/19 00:00 97.5 84 21 88/49 (62) 100 11/20/19 00:00 88/49 11/20/19 00:00 84 11/20/19 00:00 35 11/19/19 23:45 84 21 94/37 (56) 100 11/19/19 23:30 83 20 91/49 (63) 100 11/19/19 23:15 81 21 90/47 (61) 100 11/19/19 23:00 90/47 11/19/19 23:00 80 20 91/48 (62) 100 11/19/19 22:45 82 20 90/49 (63) 100 11/19/19 22:36 87 22 80 11/19/19 22:30 81 20 88/49 (62) 100 11/19/19 22:15 83 22 89/45 (60) 100 11/19/19 22:00 94/52 11/19/19 22:00 84 20 85/40 (55) 100 11/19/19 21:45 81 21 93/51 (65) 100 11/19/19 21:30 85 21 100/54 (69) 100 11/19/19 21:15 85 21 96/43 (60) 100 11/19/19 21:00 83 21 101/46 (64) 100 11/19/19 21:00 100/59 11/19/19 20:45 85 20 105/56 (72) 100 11/19/19 20:30 86 21 102/53 (69) 100 11/19/19 20:15 87 21 91/50 (64) 100 11/19/19 20:00 40 11/19/19 20:00 98/60 11/19/19 20:00 96.6 85 21 95/49 (64) 100 11/19/19 19:45 83 20 92/47 (62) 100 11/19/19 19:40 81 11/19/19 19:30 83 22 96/48 (64) 100 11/19/19 19:00 84 21 90/48 (62) 100 11/19/19 18:45 84 21 80 11/19/19 18:15 85 22 96/50 (65) 100 11/19/19 18:00 84 22 97/46 (63) 100 11/19/19 17:00 83 23 98/41 (60) 100 11/19/19 16:00 80 11/19/19 16:00 83 11/19/19 16:00 99.0 86 24 107/52 (70) 100 11/19/19 15:36 88 25 80 11/19/19 15:00 86 22 109/52 (71) 100 11/19/19 14:34 105/53 11/19/19 14:30 83 23 105/55 (72) 100 11/19/19 14:00 82 25 110/50 (70) 100 11/19/19 13:15 84 24 104/52 (69) 100 11/19/19 13:00 107/53 11/19/19 13:00 84 24 112/53 (72) 100 11/19/19 12:49 98.8 11/19/19 12:45 85 23 111/53 (72) 100 11/19/19 12:30 84 22 113/54 (73) 100 11/19/19 12:15 83 24 115/54 (74) 100 11/19/19 12:00 83 11/19/19 12:00 80 11/19/19 12:00 98.9 84 24 114/56 (75) 100 11/19/19 12:00 115/54 11/19/19 11:49 85 23 80 11/19/19 11:30 84 22 115/54 (74) 100 11/19/19 11:15 86 24 113/54 (73) 100 11/19/19 11:00 86 24 108/56 (73) 100 11/19/19 11:00 113/54 11/19/19 10:45 87 24 114/55 (74) 100 11/19/19 10:30 87 24 113/53 (73) 100 11/19/19 10:15 86 25 112/53 (72) 100 Intake and Output 11/19/19 11/20/19 19:00 07:00 Intake Total 2107.86 ml 1742.94 ml Output Total 20 ml 455 ml Balance 2087.86 ml 1287.94 ml Free Water 300 ml IV Total 1762.86 ml 1732.94 ml Tube Feeding 0 ml 10 ml Other 45 ml Output Urine Total 20 ml 155 ml Stool Total 300 ml # Bowel Movements 80 Laboratory Tests 11/19/19 15:10: Lactic Acid Level 2.40H 11/20/19 04:00: White Blood Count 27.4*H, Red Blood Count 3.02L, Hemoglobin 8.6L, Hematocrit 25.0L, Mean Corpuscular Volume 83, Mean Corpuscular Hemoglobin 28.4, Mean Corpuscular Hemoglobin Concent 34.3, Red Cell Distribution Width 13.8, Platelet Count 372, Mean Platelet Volume 5.9L, Neutrophils (%) (Auto) , Lymphocytes (%) ( Auto) , Monocytes (%) (Auto) , Eosinophils (%) (Auto) , Basophils (%) (Auto) , Differential Total Cells Counted 100, Neutrophils % (Manual) 88H, Lymphocytes % (Manual) 4L, Monocytes % (Manual) 8, Eosinophils % (Manual) 0, Basophils % ( Manual) 0, Band Neutrophils 0, Platelet Estimate Adequate, Platelet Morphology Normal, Hypochromasia 1+, Sodium Level 135L, Potassium Level 5.0, Chloride Level 104, Carbon Dioxide Level 17L, Anion Gap 14, Blood Urea Nitrogen 63H, Creatinine 2.5H, Estimat Glomerular Filtration Rate 25.5, Glucose Level 90, Calcium Level 6.1L, Phosphorus Level 5.9H, Magnesium Level 2.0, Total Bilirubin 0.2, Aspartate Amino Transf (AST/SGOT) 75H, Alanine Aminotransferase (ALT/SGPT) 15, Alkaline Phosphatase 72, Total Protein 4.4L, Albumin 0.8L, Globulin 3.6, Albumin/Globulin Ratio 0.2L, Random Vancomycin Level 22.6 11/20/19 08:01: Arterial Blood pH 7.295L, Arterial Blood Partial Pressure CO2 31.8L, Arterial Blood Partial Pressure O2 251.6H, Arterial Blood HCO3 15.1*L, Arterial Blood Oxygen Saturation 99.2, Arterial Blood Base Excess -10.4*L, Michael Test Positive Height (Feet): 6 Height (Inches): 0.00 Weight (Pounds): 148 General Appearance: no apparent distress, lethargic EENT: other - Intubated on ventilator Cardiovascular: tachycardia Respiratory/Chest: decreased breath sounds Abdomen: distended Objective No other change Ricardo Choudhary MD Nov 20, 2019 10:09
[2019-11-20] MEDS: D5NS 1,000 ML IV SCH ×2 (10:53→20:12)
[2019-11-20] MEDS: Norepinephrine Bitartrate 8 MG in D5W 500ml 550 ML IV SCH (10:53)
--- NOTE | 2019-11-20 14:28 | Cardiology Progress Note ---
Assessment/Plan Problem List: (1) 2019 novel coronavirus disease (COVID-19) (2) Acute respiratory failure (3) Cardiac arrest (4) DM (diabetes mellitus) (5) ARF (acute renal failure) (6) Aspiration pneumonia Status: stable, unchanged Status Narrative Pt w/ Covid pneumonia and proteus, MRSA sputum and enterococcal uti. On abx - meropenem and vancomycins, previously received remdesivir per ID He suffered a cardiopulm arrest on 11/17 - telemetry strips reviewed - appears w / bradycardia, ? PEA, - episode felt to be a primary respiratory event, aspiration. Renal function worsening - ? ATN due to hypotension w/ cardiac arrest/ prolonged resuscitation, and possible intravascular vol depletion. Assessment/Plan Wean off pressors, keeping SBP > 90, MAP > 60. Antibiotics per ID Agree w/ iv hydration. followup labs in am Subjective ROS Limited/Unobtainable: Yes Subjective Pt intubated, sedated. events noted Objective Last 24 Hour Vital Signs Date Time Temp Pulse Resp B/P (MAP) Pulse Ox O2 Delivery O2 Flow Rate FiO2 11/20/19 13:15 87 20 106/48 (67) 99 11/20/19 13:00 88 20 108/57 (74) 99 11/20/19 12:00 35 11/20/19 12:00 96.4 88 20 114/53 (73) 100 11/20/19 12:00 91 11/20/19 11:45 88 20 105/52 (69) 100 11/20/19 11:31 87 20 92/43 (59) 99 11/20/19 11:30 84 20 99 11/20/19 11:15 86 21 91/39 (56) 100 11/20/19 11:14 83 20 35 11/20/19 11:00 86 21 85/39 (54) 100 11/20/19 11:00 85/39 11/20/19 10:53 101/50 11/20/19 10:30 85 21 97/51 (66) 100 11/20/19 10:15 86 21 93/51 (65) 100 11/20/19 10:00 90 19 98/50 (66) 100 11/20/19 10:00 98/50 11/20/19 09:54 86 20 107/52 (70) 100 11/20/19 09:47 86 21 84/50 (61) 100 11/20/19 09:45 86 20 100 11/20/19 09:30 84 20 90/39 (56) 100 11/20/19 09:15 84 20 83/42 (56) 100 11/20/19 09:00 84/37 11/20/19 09:00 95.3 86 20 84/37 (53) 100 11/20/19 08:00 86 11/20/19 08:00 93/43 11/20/19 08:00 86 20 93/43 (60) 100 11/20/19 08:00 35 11/20/19 07:12 84 21 35 11/20/19 07:00 91/52 11/20/19 07:00 86 20 91/45 (60) 100 11/20/19 06:15 86 19 92/49 (63) 99 11/20/19 06:00 92/52 11/20/19 06:00 86 19 92/45 (61) 99 11/20/19 05:45 88 20 98/56 (70) 99 11/20/19 05:30 87 21 92/50 (64) 99 11/20/19 05:15 90 21 91/51 (64) 99 11/20/19 05:00 91/51 11/20/19 05:00 89 20 93/47 (62) 100 11/20/19 04:30 87 20 90/54 (66) 98 11/20/19 04:00 86 11/20/19 04:00 90/54 11/20/19 04:00 35 11/20/19 04:00 97.9 90 20 93/52 (66) 100 11/20/19 03:30 91 20 93/57 (69) 100 11/20/19 03:15 83 91/52 11/20/19 03:00 92/54 11/20/19 03:00 90 20 93/44 (60) 100 11/20/19 02:37 86 23 80 11/20/19 02:30 91 20 94/45 (61) 98 11/20/19 02:00 93/51 11/20/19 02:00 90 20 92/52 (65) 95 11/20/19 01:00 83 20 91/50 (64) 97 11/20/19 01:00 91/52 11/20/19 00:45 85 19 95/48 (64) 100 11/20/19 00:30 82 20 90/48 (62) 100 11/20/19 00:15 83 20 92/47 (62) 100 11/20/19 00:00 97.5 84 21 88/49 (62) 100 11/20/19 00:00 88/49 11/20/19 00:00 84 11/20/19 00:00 35 11/19/19 23:45 84 21 94/37 (56) 100 11/19/19 23:30 83 20 91/49 (63) 100 11/19/19 23:15 81 21 90/47 (61) 100 11/19/19 23:00 90/47 11/19/19 23:00 80 20 91/48 (62) 100 11/19/19 22:45 82 20 90/49 (63) 100 11/19/19 22:36 87 22 80 11/19/19 22:30 81 20 88/49 (62) 100 11/19/19 22:15 83 22 89/45 (60) 100 11/19/19 22:00 94/52 11/19/19 22:00 84 20 85/40 (55) 100 11/19/19 21:45 81 21 93/51 (65) 100 11/19/19 21:30 85 21 100/54 (69) 100 11/19/19 21:15 85 21 96/43 (60) 100 11/19/19 21:00 83 21 101/46 (64) 100 11/19/19 21:00 100/59 11/19/19 20:45 85 20 105/56 (72) 100 11/19/19 20:30 86 21 102/53 (69) 100 11/19/19 20:15 87 21 91/50 (64) 100 11/19/19 20:00 40 11/19/19 20:00 98/60 11/19/19 20:00 96.6 85 21 95/49 (64) 100 11/19/19 19:45 83 20 92/47 (62) 100 11/19/19 19:40 81 11/19/19 19:30 83 22 96/48 (64) 100 11/19/19 19:00 84 21 90/48 (62) 100 11/19/19 18:45 84 21 80 11/19/19 18:15 85 22 96/50 (65) 100 11/19/19 18:00 84 22 97/46 (63) 100 11/19/19 17:00 83 23 98/41 (60) 100 11/19/19 16:00 80 11/19/19 16:00 83 11/19/19 16:00 99.0 86 24 107/52 (70) 100 11/19/19 15:36 88 25 80 11/19/19 15:00 86 22 109/52 (71) 100 11/19/19 14:34 105/53 11/19/19 14:30 83 23 105/55 (72) 100 General Appearance: on vent - exam deferred - covid isolation Intake and Output 11/19/19 11/20/19 19:00 07:00 Intake Total 2107.86 ml 1742.94 ml Output Total 20 ml 455 ml Balance 2087.86 ml 1287.94 ml Free Water 300 ml IV Total 1762.86 ml 1732.94 ml Tube Feeding 0 ml 10 ml Other 45 ml Output Urine Total 20 ml 155 ml Stool Total 300 ml # Bowel Movements 80 2D Echo: CXR - poor quality film due to overlying artifacts. R sided infilt Laboratory Tests Test 11/19/19 15:10 11/20/19 04:00 11/20/19 08:01 Lactic Acid Level 2.40 mmol/L (0.4-2.0) H White Blood Count 27.4 K/UL (4.8-10.8) *H Red Blood Count 3.02 M/UL (4.70-6.10) L Hemoglobin 8.6 G/DL (14.2-18.0) L Hematocrit 25.0 % (42.0-52.0) L Mean Corpuscular Volume 83 FL (80-99) Mean Corpuscular Hemoglobin 28.4 PG (27.0-31.0) Mean Corpuscular Hemoglobin Concent 34.3 G/DL (32.0-36.0) Red Cell Distribution Width 13.8 % (11.6-14.8) Platelet Count 372 K/UL (150-450) Mean Platelet Volume 5.9 FL (6.5-10.1) L Neutrophils (%) (Auto) % (45.0-75.0) Lymphocytes (%) (Auto) % (20.0-45.0) Monocytes (%) (Auto) % (1.0-10.0) Eosinophils (%) (Auto) % (0.0-3.0) Basophils (%) (Auto) % (0.0-2.0) Differential Total Cells Counted 100 Neutrophils % (Manual) 88 % (45-75) H Lymphocytes % (Manual) 4 % (20-45) L Monocytes % (Manual) 8 % (1-10) Eosinophils % (Manual) 0 % (0-3) Basophils % (Manual) 0 % (0-2) Band Neutrophils 0 % (0-8) Platelet Estimate Adequate Platelet Morphology Normal Hypochromasia 1+ Sodium Level 135 MMOL/L (136-145) L Potassium Level 5.0 MMOL/L (3.5-5.1) Chloride Level 104 MMOL/L (98-107) Carbon Dioxide Level 17 MMOL/L (21-32) L Anion Gap 14 mmol/L (5-15) Blood Urea Nitrogen 63 mg/dL (7-18) H Creatinine 2.5 MG/DL (0.55-1.30) H Estimat Glomerular Filtration Rate 25.5 mL/min (>60) Glucose Level 90 MG/DL (74-106) Calcium Level 6.1 MG/DL (8.5-10.1) L Phosphorus Level 5.9 MG/DL (2.5-4.9) H Magnesium Level 2.0 MG/DL (1.8-2.4) Total Bilirubin 0.2 MG/DL (0.2-1.0) Aspartate Amino Transf (AST/SGOT) 75 U/L (15-37) H Alanine Aminotransferase (ALT/SGPT) 15 U/L (12-78) Alkaline Phosphatase 72 U/L (46-116) Total Protein 4.4 G/DL (6.4-8.2) L Albumin 0.8 G/DL (3.4-5.0) L Globulin 3.6 g/dL Albumin/Globulin Ratio 0.2 (1.0-2.7) L Random Vancomycin Level 22.6 ug/mL Arterial Blood pH 7.295 (7.350-7.450) Arterial Blood Partial Pressure CO2 31.8 mmHg (35.0-45.0) L Arterial Blood Partial Pressure O2 251.6 mmHg (75.0-100.0) H Arterial Blood HCO3 15.1 mmol/L (22.0-26.0) *L Arterial Blood Oxygen Saturation 99.2 % (95-100) Arterial Blood Base Excess -10.4 (-2-2) *L Michael Test Positive Microbiology Date/Time Source Procedure Growth Status 11/18/19 13:00 Blood Blood Culture - Preliminary NO GROWTH AFTER 24 HOURS Resulted 11/18/19 12:50 Blood Blood Culture - Preliminary NO GROWTH AFTER 24 HOURS Resulted 11/18/19 14:00 Sputum Gram Stain - Final Resulted 11/18/19 14:00 Sputum Culture - Preliminary YEAST Gram Negative Bacillus 1 Resulted 11/18/19 14:00 Urine,Clean Catch Urine Culture - Preliminary NO GROWTH AFTER 24 HOURS Resulted Nell Mosley MD Nov 20, 2019 14:28
--- NOTE | 2019-11-20 17:53 | Surgery Progress Note ---
Surgery Progress Note Subjective Additional Comments icu, no acute events, vent, levo gtt, meds and labs reviewed Objective Last 24 Hour Vital Signs Date Time Temp Pulse Resp B/P (MAP) Pulse Ox O2 Delivery O2 Flow Rate FiO2 11/20/19 17:45 90 20 117/47 (70) 98 11/20/19 17:30 90 20 117/47 (70) 98 11/20/19 17:30 91 20 129/51 (77) 98 11/20/19 17:15 89 20 83/40 (54) 98 11/20/19 17:00 89 20 129/51 (77) 98 11/20/19 17:00 89 20 111/49 (69) 98 11/20/19 16:30 90 20 110/50 (70) 98 11/20/19 16:20 89 11/20/19 16:00 97.3 89 20 109/47 (67) 99 11/20/19 16:00 35 11/20/19 15:15 89 20 108/49 (68) 99 11/20/19 15:01 91 22 35 11/20/19 15:00 88 20 107/52 (70) 99 11/20/19 14:15 90 20 109/53 (71) 99 11/20/19 14:00 86 20 111/54 (73) 99 11/20/19 13:15 87 20 106/48 (67) 99 11/20/19 13:00 88 20 108/57 (74) 99 11/20/19 12:00 35 11/20/19 12:00 96.4 88 20 114/53 (73) 100 11/20/19 12:00 91 11/20/19 11:45 88 20 105/52 (69) 100 11/20/19 11:31 87 20 92/43 (59) 99 11/20/19 11:30 84 20 99 11/20/19 11:15 86 21 91/39 (56) 100 11/20/19 11:14 83 20 35 11/20/19 11:00 86 21 85/39 (54) 100 11/20/19 11:00 85/39 11/20/19 10:53 101/50 11/20/19 10:30 85 21 97/51 (66) 100 11/20/19 10:15 86 21 93/51 (65) 100 11/20/19 10:00 90 19 98/50 (66) 100 11/20/19 10:00 98/50 11/20/19 09:54 86 20 107/52 (70) 100 11/20/19 09:47 86 21 84/50 (61) 100 11/20/19 09:45 86 20 100 11/20/19 09:30 84 20 90/39 (56) 100 11/20/19 09:15 84 20 83/42 (56) 100 11/20/19 09:00 84/37 11/20/19 09:00 95.3 86 20 84/37 (53) 100 11/20/19 08:00 86 11/20/19 08:00 93/43 11/20/19 08:00 86 20 93/43 (60) 100 11/20/19 08:00 35 11/20/19 07:12 84 21 35 11/20/19 07:00 91/52 11/20/19 07:00 86 20 91/45 (60) 100 11/20/19 06:15 86 19 92/49 (63) 99 11/20/19 06:00 92/52 11/20/19 06:00 86 19 92/45 (61) 99 11/20/19 05:45 88 20 98/56 (70) 99 11/20/19 05:30 87 21 92/50 (64) 99 11/20/19 05:15 90 21 91/51 (64) 99 11/20/19 05:00 91/51 11/20/19 05:00 89 20 93/47 (62) 100 11/20/19 04:30 87 20 90/54 (66) 98 11/20/19 04:00 86 11/20/19 04:00 90/54 11/20/19 04:00 35 11/20/19 04:00 97.9 90 20 93/52 (66) 100 11/20/19 03:30 91 20 93/57 (69) 100 11/20/19 03:15 83 91/52 11/20/19 03:00 92/54 11/20/19 03:00 90 20 93/44 (60) 100 11/20/19 02:37 86 23 80 11/20/19 02:30 91 20 94/45 (61) 98 11/20/19 02:00 93/51 11/20/19 02:00 90 20 92/52 (65) 95 11/20/19 01:00 83 20 91/50 (64) 97 11/20/19 01:00 91/52 11/20/19 00:45 85 19 95/48 (64) 100 11/20/19 00:30 82 20 90/48 (62) 100 11/20/19 00:15 83 20 92/47 (62) 100 11/20/19 00:00 97.5 84 21 88/49 (62) 100 11/20/19 00:00 88/49 11/20/19 00:00 84 11/20/19 00:00 35 11/19/19 23:45 84 21 94/37 (56) 100 11/19/19 23:30 83 20 91/49 (63) 100 11/19/19 23:15 81 21 90/47 (61) 100 11/19/19 23:00 90/47 11/19/19 23:00 80 20 91/48 (62) 100 11/19/19 22:45 82 20 90/49 (63) 100 11/19/19 22:36 87 22 80 11/19/19 22:30 81 20 88/49 (62) 100 11/19/19 22:15 83 22 89/45 (60) 100 11/19/19 22:00 94/52 11/19/19 22:00 84 20 85/40 (55) 100 11/19/19 21:45 81 21 93/51 (65) 100 11/19/19 21:30 85 21 100/54 (69) 100 11/19/19 21:15 85 21 96/43 (60) 100 11/19/19 21:00 83 21 101/46 (64) 100 11/19/19 21:00 100/59 11/19/19 20:45 85 20 105/56 (72) 100 11/19/19 20:30 86 21 102/53 (69) 100 11/19/19 20:15 87 21 91/50 (64) 100 11/19/19 20:00 40 11/19/19 20:00 98/60 11/19/19 20:00 96.6 85 21 95/49 (64) 100 11/19/19 19:45 83 20 92/47 (62) 100 11/19/19 19:40 81 11/19/19 19:30 83 22 96/48 (64) 100 11/19/19 19:00 84 21 90/48 (62) 100 11/19/19 18:45 84 21 80 11/19/19 18:15 85 22 96/50 (65) 100 11/19/19 18:00 84 22 97/46 (63) 100 I&O Intake and Output 11/19/19 11/20/19 19:00 07:00 Intake Total 2107.86 ml 1742.94 ml Output Total 20 ml 455 ml Balance 2087.86 ml 1287.94 ml Free Water 300 ml IV Total 1762.86 ml 1732.94 ml Tube Feeding 0 ml 10 ml Other 45 ml Output Urine Total 20 ml 155 ml Stool Total 300 ml # Bowel Movements 80 Dressing: other Wound: other Drains: other Cardiovascular: RSR Respiratory: decreased breath sounds Abdomen: soft, present bowel sounds Extremities: no cyanosis Laboratory Tests Test 11/20/19 04:00 11/20/19 08:01 White Blood Count 27.4 K/UL (4.8-10.8) *H Red Blood Count 3.02 M/UL (4.70-6.10) L Hemoglobin 8.6 G/DL (14.2-18.0) L Hematocrit 25.0 % (42.0-52.0) L Mean Corpuscular Volume 83 FL (80-99) Mean Corpuscular Hemoglobin 28.4 PG (27.0-31.0) Mean Corpuscular Hemoglobin Concent 34.3 G/DL (32.0-36.0) Red Cell Distribution Width 13.8 % (11.6-14.8) Platelet Count 372 K/UL (150-450) Mean Platelet Volume 5.9 FL (6.5-10.1) L Neutrophils (%) (Auto) % (45.0-75.0) Lymphocytes (%) (Auto) % (20.0-45.0) Monocytes (%) (Auto) % (1.0-10.0) Eosinophils (%) (Auto) % (0.0-3.0) Basophils (%) (Auto) % (0.0-2.0) Differential Total Cells Counted 100 Neutrophils % (Manual) 88 % (45-75) H Lymphocytes % (Manual) 4 % (20-45) L Monocytes % (Manual) 8 % (1-10) Eosinophils % (Manual) 0 % (0-3) Basophils % (Manual) 0 % (0-2) Band Neutrophils 0 % (0-8) Platelet Estimate Adequate Platelet Morphology Normal Hypochromasia 1+ Sodium Level 135 MMOL/L (136-145) L Potassium Level 5.0 MMOL/L (3.5-5.1) Chloride Level 104 MMOL/L (98-107) Carbon Dioxide Level 17 MMOL/L (21-32) L Anion Gap 14 mmol/L (5-15) Blood Urea Nitrogen 63 mg/dL (7-18) H Creatinine 2.5 MG/DL (0.55-1.30) H Estimat Glomerular Filtration Rate 25.5 mL/min (>60) Glucose Level 90 MG/DL (74-106) Calcium Level 6.1 MG/DL (8.5-10.1) L Phosphorus Level 5.9 MG/DL (2.5-4.9) H Magnesium Level 2.0 MG/DL (1.8-2.4) Total Bilirubin 0.2 MG/DL (0.2-1.0) Aspartate Amino Transf (AST/SGOT) 75 U/L (15-37) H Alanine Aminotransferase (ALT/SGPT) 15 U/L (12-78) Alkaline Phosphatase 72 U/L (46-116) Total Protein 4.4 G/DL (6.4-8.2) L Albumin 0.8 G/DL (3.4-5.0) L Globulin 3.6 g/dL Albumin/Globulin Ratio 0.2 (1.0-2.7) L Random Vancomycin Level 22.6 ug/mL Arterial Blood pH 7.295 (7.350-7.450) Arterial Blood Partial Pressure CO2 31.8 mmHg (35.0-45.0) L Arterial Blood Partial Pressure O2 251.6 mmHg (75.0-100.0) H Arterial Blood HCO3 15.1 mmol/L (22.0-26.0) *L Arterial Blood Oxygen Saturation 99.2 % (95-100) Arterial Blood Base Excess -10.4 (-2-2) *L Michael Test Positive Plan Problems: (1) Decubitus skin ulcer Assessment & Plan: Pt presented on admission with large sacral wound. Base of wound with areas that area purple and indurated sacrococcygeal,L sacrum/L gluteus,Scattered wounds with maceration L gluteus, one wound R sacrum with Biofilm, Surrounding non-blanching erythema entire buttocks. Small dry scabbed area noted to lumbar area. Unstageable Pressure Injury L heel. Base of wound is necrotic with surrounding non-blanching erythema. Tx.plan: Apply Moisture Barrier Paste to Buttocks. Cover Sacrum, R and L gluteal cheeks with Optifoam drsgs. Change every 3 days and prn. Apply Betadine to L heel. Cover with Optifoam drsg. Change every 3 days and prn. Reposition at least every 2hours or as tolerated. Place Pillow between knees. Off-load heels with Pillow. APM/BRUNILDA Mattress overlay. DAILY ESTIMATED NEEDS: Needs based on wt loss, underweight, wound/ 59kg 30-35 kcals/kg 4986-5515 total kcals 1.25-2 g protein/kg 74-118 g total protein 25-30 mL/kg 4458-9947 total fluid mLs NUTRITION DIAGNOSIS: * Increased kcal/prot intake needs R/T wound healing, suspected recent significant wt loss as evidenced by admitted w/ wounds @ lt posterior heel, R lower back, sacrum as per photos, pending eval, suspected significant wt loss of 40lbs/ 23.7% in <5 months, currently @ 81% IBW. . * Swallowing difficulty R/T dysphagia, h/o CVA as evidenced by PEG dependent. CURRENT TF:Glucerna 1.2 @65ml/hr x24 hrs ENTERAL NUTRITION RECOMMENDATIONS: NEPRO @45ml/hr x24 hrs to provide 1080ml, 1944 kcal, 87g pro, 785ml free H2O - Rec TF change for lower K content (1145mg in Nepro @45 vs 3151mg in Glucerna 1.2 @65) - Start at 25ml/hr advance as tolerated 10ml/hr q4-6 hrs - HOB over 30 degrees - Increased H20 flush to 200ml q4 hrs ADDITIONAL RECOMMENDATIONS: 1) Calibrated bedscale wt -> per SNF: HT=59" and RQ=414aih (10/20/19) 2) Wound healing: Add Vit C 500mg QD/ or dosing per nephro Add Osbaldo BID via PEG w/ TF order 3) Monitor lytes: monitor K trend, need for renal TF (K 5.3, 5.5) 4) NISS w/ TF (h/o DM) 5) Monitor for diarrhea, rec probiotics (2) Sepsis Assessment & Plan: 74-year-old male multi-medical comorbidities admitted for respiratory deficiency currently tachypneic, leukocytosis, malnutrition, hypoalbuminemia. Complete physical exam performed identified areas of concerned given patient's comorbidities current condition high risk for deteriorationNo active infection identified from patient's wounds and likely respiratory nature. Chest x-ray reviewed. No acute surgical intervention planned at this time Preventive measures IV antibiotics per infectious disease Okay for feeding once stable respiratory Appreciate Pulm input c diff positive on vanco blood cx noted worsening leukocytosis ID abx noted heme input noted There are increasing basilar opacities on the left noted. The heart size is normal. The pleural spaces are clear. Impression: New/increased infiltrates at the left lateral lung base We will follow with recommendations thank you for let me participate patient's care worsening in ICU now on pressors intubated febrile (3) Left carotid artery occlusion (4) Left middle cerebral artery stroke (5) DM (diabetes mellitus) (6) ARF (acute renal failure) (7) Ventricular tachyarrhythmia (8) Aspiration pneumonia (9) Hypertension (10) UTI (urinary tract infection) (11) Anemia (12) Respiratory failure with hypoxia (13) Suspected COVID-19 virus infection Assessment & Plan: ++++ Elfego Payne Nov 20, 2019 17:53
[2019-11-20] MEDS: Dyna-Hex 2% Top Sol 2oz TOPIC SCH (20:12)
[2019-11-20] MEDS: Meropenem 500 MG in NS 55 ML IV SCH (21:00)
--- NOTE | 2019-11-20 21:38 | General Progress Note ---
Assessment/Plan Problem List: (1) Acute respiratory failure ICD Codes: J96.00 - Acute respiratory failure, unspecified whether with hypoxia or hypercapnia SNOMED: 17430977 (2) Leucocytosis ICD Codes: D72.829 - Elevated white blood cell count, unspecified SNOMED: 106050068, 853174792 (3) Hyperkalemia ICD Codes: E87.5 - Hyperkalemia SNOMED: 74158473 (4) 2019 novel coronavirus disease (COVID-19) ICD Codes: U07.1 - COVID-19 SNOMED: 717550625 (5) Severe malnutrition ICD Codes: E43 - Unspecified severe protein-calorie malnutrition SNOMED: 63992888 (6) Sepsis ICD Codes: A41.9 - Sepsis, unspecified organism SNOMED: 52444813 Qualifiers: Qualified Codes: A41.9 - Sepsis, unspecified organism; R65.20 - Severe sepsis without septic shock; J96.01 - Acute respiratory failure with hypoxia (7) DM (diabetes mellitus) ICD Codes: E11.9 - Type 2 diabetes mellitus without complications SNOMED: 80937560 (8) ARF (acute renal failure) ICD Codes: N17.9 - Acute kidney failure, unspecified SNOMED: 52912969 Qualifiers: Qualified Codes: N17.9 - Acute kidney failure, unspecified (9) Aspiration pneumonia ICD Codes: J69.0 - Pneumonitis due to inhalation of food and vomit SNOMED: 515496651 (10) Hypertension ICD Codes: I10 - Essential (primary) hypertension SNOMED: 53812120 (11) UTI (urinary tract infection) ICD Codes: N39.0 - Urinary tract infection, site not specified SNOMED: 86819664 Qualifiers: Qualified Codes: N30.00 - Acute cystitis without hematuria (12) Anemia ICD Codes: D64.9 - Anemia, unspecified SNOMED: 352797567 Qualifiers: Qualified Codes: D64.9 - Anemia, unspecified (13) Respiratory failure with hypoxia ICD Codes: J96.91 - Respiratory failure, unspecified with hypoxia SNOMED: 32238973227213523 Qualifiers: Qualified Codes: J96.01 - Acute respiratory failure with hypoxia (14) Suspected COVID-19 virus infection ICD Codes: Z20.828 - Contact with and (suspected) exposure to other viral communicable diseases SNOMED: 271831082 Status: stable, unchanged Assessment/Plan: persistent leukocytosis sepsis uti check h/h check lytes afebrile no change Subjective ROS Limited/Unobtainable: Yes Allergies: Coded Allergies: No Known Allergies (Unverified , 09/16/19) Objective Last 24 Hour Vital Signs Date Time Temp Pulse Resp B/P (MAP) Pulse Ox O2 Delivery O2 Flow Rate FiO2 11/20/19 20:30 81 20 120/51 (74) 100 11/20/19 20:15 81 22 109/45 (66) 100 11/20/19 20:00 35 11/20/19 20:00 100.7 83 20 116/47 (70) 100 11/20/19 20:00 120/51 11/20/19 20:00 80 11/20/19 19:45 83 20 117/47 (70) 100 11/20/19 19:30 84 21 113/47 (69) 100 11/20/19 19:00 85 20 112/47 (68) 100 11/20/19 19:00 117/47 11/20/19 18:00 127/45 11/20/19 17:45 90 20 117/47 (70) 98 11/20/19 17:30 90 20 117/47 (70) 98 11/20/19 17:30 91 20 129/51 (77) 98 11/20/19 17:15 89 20 83/40 (54) 98 11/20/19 17:00 89 20 129/51 (77) 98 11/20/19 17:00 89 20 111/49 (69) 98 11/20/19 17:00 83/40 11/20/19 16:30 90 20 110/50 (70) 98 11/20/19 16:20 89 11/20/19 16:00 97.3 89 20 109/47 (67) 99 11/20/19 16:00 100/48 11/20/19 16:00 35 11/20/19 15:15 89 20 108/49 (68) 99 11/20/19 15:01 91 22 35 11/20/19 15:00 88 20 107/52 (70) 99 11/20/19 15:00 108/49 11/20/19 14:15 90 20 109/53 (71) 99 11/20/19 14:00 109/53 11/20/19 14:00 86 20 111/54 (73) 99 11/20/19 13:15 87 20 106/48 (67) 99 11/20/19 13:00 88 20 108/57 (74) 99 11/20/19 13:00 106/48 11/20/19 12:00 35 11/20/19 12:00 114/53 11/20/19 12:00 96.4 88 20 114/53 (73) 100 11/20/19 12:00 91 11/20/19 11:45 88 20 105/52 (69) 100 11/20/19 11:31 87 20 92/43 (59) 99 11/20/19 11:30 84 20 99 11/20/19 11:15 86 21 91/39 (56) 100 11/20/19 11:14 83 20 35 11/20/19 11:00 86 21 85/39 (54) 100 11/20/19 11:00 85/39 11/20/19 10:53 101/50 11/20/19 10:30 85 21 97/51 (66) 100 11/20/19 10:15 86 21 93/51 (65) 100 11/20/19 10:00 90 19 98/50 (66) 100 11/20/19 10:00 98/50 11/20/19 09:54 86 20 107/52 (70) 100 11/20/19 09:47 86 21 84/50 (61) 100 11/20/19 09:45 86 20 100 11/20/19 09:30 84 20 90/39 (56) 100 11/20/19 09:15 84 20 83/42 (56) 100 11/20/19 09:00 84/37 11/20/19 09:00 95.3 86 20 84/37 (53) 100 11/20/19 08:00 86 11/20/19 08:00 93/43 11/20/19 08:00 86 20 93/43 (60) 100 11/20/19 08:00 35 11/20/19 07:12 84 21 35 11/20/19 07:00 91/52 11/20/19 07:00 86 20 91/45 (60) 100 11/20/19 06:15 86 19 92/49 (63) 99 11/20/19 06:00 92/52 11/20/19 06:00 86 19 92/45 (61) 99 11/20/19 05:45 88 20 98/56 (70) 99 11/20/19 05:30 87 21 92/50 (64) 99 11/20/19 05:15 90 21 91/51 (64) 99 11/20/19 05:00 91/51 11/20/19 05:00 89 20 93/47 (62) 100 11/20/19 04:30 87 20 90/54 (66) 98 11/20/19 04:00 86 11/20/19 04:00 90/54 11/20/19 04:00 35 11/20/19 04:00 97.9 90 20 93/52 (66) 100 11/20/19 03:30 91 20 93/57 (69) 100 11/20/19 03:15 83 91/52 11/20/19 03:00 92/54 11/20/19 03:00 90 20 93/44 (60) 100 11/20/19 02:37 86 23 80 11/20/19 02:30 91 20 94/45 (61) 98 11/20/19 02:00 93/51 11/20/19 02:00 90 20 92/52 (65) 95 11/20/19 01:00 83 20 91/50 (64) 97 11/20/19 01:00 91/52 11/20/19 00:45 85 19 95/48 (64) 100 11/20/19 00:30 82 20 90/48 (62) 100 11/20/19 00:15 83 20 92/47 (62) 100 11/20/19 00:00 97.5 84 21 88/49 (62) 100 11/20/19 00:00 88/49 11/20/19 00:00 84 11/20/19 00:00 35 11/19/19 23:45 84 21 94/37 (56) 100 11/19/19 23:30 83 20 91/49 (63) 100 11/19/19 23:15 81 21 90/47 (61) 100 11/19/19 23:00 90/47 11/19/19 23:00 80 20 91/48 (62) 100 11/19/19 22:45 82 20 90/49 (63) 100 11/19/19 22:36 87 22 80 11/19/19 22:30 81 20 88/49 (62) 100 11/19/19 22:15 83 22 89/45 (60) 100 11/19/19 22:00 94/52 11/19/19 22:00 84 20 85/40 (55) 100 11/19/19 21:45 81 21 93/51 (65) 100 Intake and Output 11/19/19 11/20/19 19:00 07:00 Intake Total 2107.86 ml 1742.94 ml Output Total 20 ml 455 ml Balance 2087.86 ml 1287.94 ml Free Water 300 ml IV Total 1762.86 ml 1732.94 ml Tube Feeding 0 ml 10 ml Other 45 ml Output Urine Total 20 ml 155 ml Stool Total 300 ml # Bowel Movements 80 Laboratory Tests 11/20/19 04:00: White Blood Count 27.4*H, Red Blood Count 3.02L, Hemoglobin 8.6L, Hematocrit 25.0L, Mean Corpuscular Volume 83, Mean Corpuscular Hemoglobin 28.4, Mean Corpuscular Hemoglobin Concent 34.3, Red Cell Distribution Width 13.8, Platelet Count 372, Mean Platelet Volume 5.9L, Neutrophils (%) (Auto) , Lymphocytes (%) ( Auto) , Monocytes (%) (Auto) , Eosinophils (%) (Auto) , Basophils (%) (Auto) , Differential Total Cells Counted 100, Neutrophils % (Manual) 88H, Lymphocytes % (Manual) 4L, Monocytes % (Manual) 8, Eosinophils % (Manual) 0, Basophils % ( Manual) 0, Band Neutrophils 0, Platelet Estimate Adequate, Platelet Morphology Normal, Hypochromasia 1+, Sodium Level 135L, Potassium Level 5.0, Chloride Level 104, Carbon Dioxide Level 17L, Anion Gap 14, Blood Urea Nitrogen 63H, Creatinine 2.5H, Estimat Glomerular Filtration Rate 25.5, Glucose Level 90, Calcium Level 6.1L, Phosphorus Level 5.9H, Magnesium Level 2.0, Total Bilirubin 0.2, Aspartate Amino Transf (AST/SGOT) 75H, Alanine Aminotransferase (ALT/SGPT) 15, Alkaline Phosphatase 72, Total Protein 4.4L, Albumin 0.8L, Globulin 3.6, Albumin/Globulin Ratio 0.2L, Random Vancomycin Level 22.6 11/20/19 08:01: Arterial Blood pH 7.295L, Arterial Blood Partial Pressure CO2 31.8L, Arterial Blood Partial Pressure O2 251.6H, Arterial Blood HCO3 15.1*L, Arterial Blood Oxygen Saturation 99.2, Arterial Blood Base Excess -10.4*L, Michael Test Positive Height (Feet): 6 Height (Inches): 0.00 Weight (Pounds): 170 Singh Rubalcava MD Nov 20, 2019 21:38
[2019-11-21] VITALS (61 sets, daily range): BP systolic 79–113; BP diastolic 38–60
[2019-11-21] MEDS: Phenylephrine 50 MG in D5W 245 ML IV SCH (01:15)
[2019-11-21 04:48] LABS: HEMATOCRIT 21.5 % (42.0-52.0); HEMOGLOBIN 7.5 G/DL (14.2-18.0); MEAN CORPUSCULAR VOLUME 81 FL (80-99); PLATELET COUNT 370 K/UL (150-450); RED BLOOD COUNT 2.64 M/UL (4.70-6.10)
[2019-11-21] MEDS: D5NS 1,000 ML IV SCH ×2 (05:00→16:31)
[2019-11-21 05:04] LABS: WHITE BLOOD COUNT 25.3 K/UL (4.8-10.8)
[2019-11-21 05:10] LABS: ALANINE AMINOTRANSFERASE 10 U/L (12-78); ALBUMIN 1.1 G/DL (3.4-5.0); ALBUMIN/GLOBULIN RATIO 0.3 (1.0-2.7); ALKALINE PHOSPHATASE 61 U/L (46-116); ANION GAP 14 mmol/L (5-15); ASPARTATE AMINO TRANSFERASE 79 U/L (15-37); BILIRUBIN,TOTAL 0.3 MG/DL (0.2-1.0); BLOOD UREA NITROGEN 66 mg/dL (7-18); CALCIUM 6.2 MG/DL (8.5-10.1); CARBON DIOXIDE 17 MMOL/L (21-32); CHLORIDE 105 MMOL/L (98-107); CREATININE 2.7 MG/DL (0.55-1.30); POTASSIUM 4.3 MMOL/L (3.5-5.1); SODIUM 136 MMOL/L (136-145)
[2019-11-21] MEDS: Norepinephrine Bitartrate 8 MG in D5W 500ml 550 ML IV SCH (05:24)
[2019-11-21 05:51] LABS: PHOSPHORUS 6.9 MG/DL (2.5-4.9)
--- NOTE | 2019-11-21 08:57 | Nephrology Progress Note ---
Assessment/Plan Problem List: (1) ARF (acute renal failure) (2) Hyperkalemia (3) DM (diabetes mellitus) (4) Suspected COVID-19 virus infection (5) Sepsis (6) Severe malnutrition Assessment: Severe hypoalbuminemia Assessment his 74-year-old male with multiple Multiple medical problem presents with respiratory symptoms and diarrhea Renal failure most likely prerenal azotemia secondary to dehydration Hyperkalemia on presentation also secondary to dehydration Sepsis pneumonia hypoxia UTI Anemia History of hypertension History of diabetes mellitus Suspected COVID-19 virus infection Hypoalbuminemia Plan C. difficile positive COVID-19 detected November 20: Serum creatinine continuing to rise. Remains of 100 cc an hour IV fluid. Urine output remains low. Blood pressure also borderline low, on pressors. Continue per consultants. Continue to monitor renal parameters and urine output. Continue to avoid nephrotoxic's. Further deterioration of renal function may lead to dialysis treatment. Will discuss with PMD. November 19: Serum creatinine rising. Urine output decreasing. Will change to IV, D5 normal saline. Will give albumin bolus followed by Lasix 40 mg IV push. Continue to monitor renal parameters and urine output. Continue to avoid nephrotoxic medications as possible. Today's vancomycin level was 22. November 18: Serum creatinine rising. Continues to be full code. Continues to be intubated on ventilator. Remains on IV fluids. Vancomycin levels per pharmacy. Prognosis poor due to sepsis. November 17: Intubated on ventilator in ICU. Will continue half-normal saline 100 cc an hour. Continue per pulmonary and ID. Prognosis poor. Continue to monitor renal parameters. Hydrate with half-normal saline, serum creatinine now at its lowest today. monitor electrolytes Will change the feeding to Nepro and monitor her potassium and other electrolytes Continue per ID Keep the blood pressure and blood sugar in check Monitor renal parameters Previously: Urine studies Monitor intake and output Cultures including stool for C. difficile Per orders Patient's CODE STATUS is full Subjective ROS Limited/Unobtainable: Yes Objective Objective Last 24 Hour Vital Signs Date Time Temp Pulse Resp B/P (MAP) Pulse Ox O2 Delivery O2 Flow Rate FiO2 11/21/19 08:00 81 20 35 11/21/19 07:00 76 21 98/42 (60) 100 11/21/19 07:00 98/46 11/21/19 06:00 99/44 11/21/19 06:00 78 23 99/44 (62) 100 11/21/19 05:45 77 22 103/44 (63) 100 11/21/19 05:30 77 22 96/44 (61) 100 11/21/19 05:24 98/46 11/21/19 05:15 78 20 100/44 (62) 100 11/21/19 05:00 76 22 94/44 (61) 98 11/21/19 04:45 77 20 101/46 (64) 99 11/21/19 04:30 78 21 97/41 (59) 99 11/21/19 04:15 79 20 98/46 (63) 99 11/21/19 04:00 75 11/21/19 04:00 35 11/21/19 04:00 98/46 11/21/19 04:00 Mechanical Ventilator 11/21/19 04:00 97.0 79 20 100/45 (63) 99 11/21/19 03:45 79 21 99/42 (61) 98 11/21/19 03:30 80 22 92/44 (60) 98 11/21/19 03:15 80 21 102/43 (62) 98 11/21/19 03:15 80 21 35 11/21/19 03:00 79 20 98/55 (69) 98 11/21/19 03:00 96/50 11/21/19 02:45 79 21 91/52 (65) 98 11/21/19 02:30 78 23 98/49 (65) 100 11/21/19 02:15 77 22 103/60 (74) 96 11/21/19 02:00 76 21 86/39 (55) 98 11/21/19 02:00 79/44 11/21/19 01:45 77 21 102/45 (64) 98 11/21/19 01:30 77 22 104/42 (62) 98 11/21/19 01:23 77 20 104/43 (63) 98 11/21/19 01:15 77 20 79/41 (54) 98 11/21/19 01:15 73 86/41 11/21/19 01:00 86/41 11/21/19 01:00 73 21 86/41 (56) 100 11/21/19 00:30 80 20 89/38 (55) 100 11/21/19 00:00 35 11/21/19 00:00 97.5 78 21 98/42 (60) 100 11/21/19 00:00 86 11/21/19 00:00 Mechanical Ventilator 11/20/19 23:45 80 21 93/45 (61) 100 11/20/19 23:30 79 21 102/46 (64) 100 11/20/19 23:12 90 21 35 11/20/19 23:00 101/50 11/20/19 23:00 78 21 100/51 (67) 99 11/20/19 22:45 80 20 101/47 (65) 100 11/20/19 22:30 78 20 102/48 (66) 100 11/20/19 22:15 79 21 103/49 (67) 100 11/20/19 22:00 81 20 101/50 (67) 100 11/20/19 22:00 100/51 11/20/19 21:45 82 21 99/43 (61) 100 11/20/19 21:40 80 20 105/50 (68) 100 11/20/19 21:30 80 21 102/46 (64) 100 11/20/19 21:30 111/49 11/20/19 21:15 80 20 111/49 (69) 100 11/20/19 21:00 80 21 113/51 (71) 100 11/20/19 21:00 113/51 11/20/19 20:45 81 20 108/49 (68) 100 11/20/19 20:30 81 20 120/51 (74) 100 11/20/19 20:15 81 22 109/45 (66) 100 11/20/19 20:00 35 11/20/19 20:00 100.7 83 20 116/47 (70) 100 11/20/19 20:00 120/51 11/20/19 20:00 80 11/20/19 20:00 Mechanical Ventilator 11/20/19 19:45 83 20 117/47 (70) 100 11/20/19 19:30 84 21 113/47 (69) 100 11/20/19 19:05 89 22 35 11/20/19 19:00 85 20 112/47 (68) 100 11/20/19 19:00 117/47 11/20/19 18:00 127/45 11/20/19 17:45 90 20 117/47 (70) 98 6 17:30 90 20 117/47 (70) 98 11/19/20 17:30 91 20 129/51 (77) 98 11/19/20 17:15 89 20 83/40 (54) 98 6/20 17:00 89 20 129/51 (77) 98 6/7/20 17:00 89 20 111/49 (69) 98 11/20/19 17:00 83/40 11/20/19 16:30 90 20 110/50 (70) 98 20 16:20 89 11/20/19 16:00 97.3 89 20 109/47 (67) 99 11/20/19 16:00 100/48 11/20/19 16:00 35 11/20/19 15:15 89 20 108/49 (68) 99 11/20/19 15:01 91 22 35 11/20/19 15:00 88 20 107/52 (70) 99 11/20/19 15:00 108/49 11/20/19 14:15 90 20 109/53 (71) 99 11/20/19 14:00 109/53 11/20/19 14:00 86 20 111/54 (73) 99 11/20/19 13:15 87 20 106/48 (67) 99 11/20/19 13:00 88 20 108/57 (74) 99 11/20/19 13:00 106/48 11/20/19 12:00 35 11/20/19 12:00 114/53 11/20/19 12:00 96.4 88 20 114/53 (73) 100 11/20/19 12:00 91 11/20/19 11:45 88 20 105/52 (69) 100 11/20/19 11:31 87 20 92/43 (59) 99 11/20/19 11:30 84 20 99 11/20/19 11:15 86 21 91/39 (56) 100 11/20/19 11:14 83 20 35 11/20/19 11:00 86 21 85/39 (54) 100 11/20/19 11:00 85/39 11/20/19 10:53 101/50 11/20/19 10:30 85 21 97/51 (66) 100 11/20/19 10:15 86 21 93/51 (65) 100 11/20/19 10:00 90 19 98/50 (66) 100 11/20/19 10:00 98/50 11/20/19 09:54 86 20 107/52 (70) 100 11/20/19 09:47 86 21 84/50 (61) 100 11/20/19 09:45 86 20 100 11/20/19 09:30 84 20 90/39 (56) 100 11/20/19 09:15 84 20 83/42 (56) 100 11/20/19 09:00 84/37 11/20/19 09:00 95.3 86 20 84/37 (53) 100 Intake and Output 11/20/19 11/21/19 19:00 07:00 Intake Total 1784.05 ml 2165.86 ml Output Total 465 ml 120 ml Balance 1319.05 ml 2045.86 ml Free Water 300 ml IV Total 1754.05 ml 1865.86 ml Other 30 ml Output Urine Total 115 ml 120 ml Stool Total 350 ml Laboratory Tests 11/21/19 04:00: White Blood Count 25.3*H, Red Blood Count 2.64L, Hemoglobin 7.5L, Hematocrit 21.5L, Mean Corpuscular Volume 81, Mean Corpuscular Hemoglobin 28.3, Mean Corpuscular Hemoglobin Concent 34.9, Red Cell Distribution Width 13.0, Platelet Count 370, Mean Platelet Volume 5.8L, Neutrophils (%) (Auto) , Lymphocytes (%) ( Auto) , Monocytes (%) (Auto) , Eosinophils (%) (Auto) , Basophils (%) (Auto) , Differential Total Cells Counted 100, Neutrophils % (Manual) 82H, Lymphocytes % (Manual) 6L, Monocytes % (Manual) 5, Eosinophils % (Manual) 0, Basophils % ( Manual) 0, Myelocytes % 2H, Band Neutrophils 5, Platelet Estimate Adequate, Platelet Morphology Normal, Polychromasia 1+, Hypochromasia 1+, Sodium Level 136 , Potassium Level 4.3, Chloride Level 105, Carbon Dioxide Level 17L, Anion Gap 14, Blood Urea Nitrogen 66H, Creatinine 2.7H, Estimat Glomerular Filtration Rate 23.3, Glucose Level 122H, Uric Acid 11.0H, Calcium Level 6.2L, Phosphorus Level 6.9H, Magnesium Level 2.0, Total Bilirubin 0.3, Aspartate Amino Transf ( AST/SGOT) 79H, Alanine Aminotransferase (ALT/SGPT) 10L, Alkaline Phosphatase 61 , C-Reactive Protein, Quantitative 11.0H, Pro-B-Type Natriuretic Peptide 5614H, Total Protein 4.4L, Albumin 1.1L, Globulin 3.3, Albumin/Globulin Ratio 0.3L, Random Vancomycin Level 21.5 Height (Feet): 6 Height (Inches): 0.00 Weight (Pounds): 170 General Appearance: no apparent distress EENT: other - Intubated on ventilator Cardiovascular: tachycardia Respiratory/Chest: decreased breath sounds Abdomen: distended Objective No other change Ricardo Choudhary MD Nov 21, 2019 08:57
[2019-11-21] MEDS: Meropenem 500 MG in NS 55 ML IV SCH ×2 (09:02→21:13)
[2019-11-21] MEDS: Pantoprazole Inj IV SCH (09:02)
[2019-11-21] MEDS: Vancomycin oral 125mg/2.5ml NG SCH ×4 (09:02→21:13)
[2019-11-21] MEDS: Heparin 5000 units/ml inj SUBQ SCH ×2 (09:03→21:14)
--- NOTE | 2019-11-21 10:10 | Pulmonolgy Critical Care Note ---
Critical Care - Asmt/Plan Problems: (1) Aspiration pneumonia (2) Cardiac arrest (3) Acute respiratory failure (4) ARF (acute renal failure) (5) Ventricular tachyarrhythmia (6) 2019 novel coronavirus disease (COVID-19) (7) DM (diabetes mellitus) Respiratory: monitor respiratory rate, adjust FIO2, CXR Cardiac: continue pressors, stop pressors, continue to monitor HR/BP Renal: F/U I&O, keep IV fluid Infectious Disease: check cultures Gastrointestinal: continue feedings/current rate Endocrine: monitor blood sugar Hematologic: monitor H/H Neurologic: PRN Ativan Affect: PRN ativan Prophylaxis: Protonix Disposition: keep in ICU Notes Reviewed: cardio, renal 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, 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, 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 - Objective Last 24 Hour Vital Signs Date Time Temp Pulse Resp B/P (MAP) Pulse Ox O2 Delivery O2 Flow Rate FiO2 11/21/19 09:30 77 21 94/42 (59) 100 11/21/19 09:00 76 21 100/45 (63) 100 11/21/19 08:30 78 20 97/40 (59) 100 11/21/19 08:00 Mechanical Ventilator 11/21/19 08:00 35 11/21/19 08:00 79 21 99/44 (62) 100 11/21/19 08:00 81 20 35 11/21/19 07:00 76 21 98/42 (60) 100 11/21/19 07:00 98/46 11/21/19 06:00 99/44 11/21/19 06:00 78 23 99/44 (62) 100 11/21/19 05:45 77 22 103/44 (63) 100 11/21/19 05:30 77 22 96/44 (61) 100 11/21/19 05:24 98/46 11/21/19 05:15 78 20 100/44 (62) 100 11/21/19 05:00 76 22 94/44 (61) 98 11/21/19 04:45 77 20 101/46 (64) 99 11/21/19 04:30 78 21 97/41 (59) 99 11/21/19 04:15 79 20 98/46 (63) 99 11/21/19 04:00 75 11/21/19 04:00 35 6/8/20 04:00 98/46 11/21/19 04:00 Mechanical Ventilator 11/21/19 04:00 97.0 79 20 100/45 (63) 99 11/21/19 03:45 79 21 99/42 (61) 98 11/21/19 03:30 80 22 92/44 (60) 98 11/21/19 03:15 80 21 102/43 (62) 98 11/21/19 03:15 80 21 35 11/21/19 03:00 79 20 98/55 (69) 98 11/21/19 03:00 96/50 11/21/19 02:45 79 21 91/52 (65) 98 11/21/19 02:30 78 23 98/49 (65) 100 11/21/19 02:15 77 22 103/60 (74) 96 11/21/19 02:00 76 21 86/39 (55) 98 11/21/19 02:00 79/44 11/21/19 01:45 77 21 102/45 (64) 98 11/21/19 01:30 77 22 104/42 (62) 98 11/21/19 01:23 77 20 104/43 (63) 98 11/21/19 01:15 77 20 79/41 (54) 98 11/21/19 01:15 73 86/41 11/21/19 01:00 86/41 11/21/19 01:00 73 21 86/41 (56) 100 11/21/19 00:30 80 20 89/38 (55) 100 11/21/19 00:00 35 11/21/19 00:00 97.5 78 21 98/42 (60) 100 11/21/19 00:00 86 11/21/19 00:00 Mechanical Ventilator 11/20/19 23:45 80 21 93/45 (61) 100 11/20/19 23:30 79 21 102/46 (64) 100 11/20/19 23:12 90 21 35 11/20/19 23:00 101/50 11/20/19 23:00 78 21 100/51 (67) 99 11/20/19 22:45 80 20 101/47 (65) 100 11/20/19 22:30 78 20 102/48 (66) 100 11/20/19 22:15 79 21 103/49 (67) 100 11/20/19 22:00 81 20 101/50 (67) 100 11/20/19 22:00 100/51 11/20/19 21:45 82 21 99/43 (61) 100 11/20/19 21:40 80 20 105/50 (68) 100 11/20/19 21:30 80 21 102/46 (64) 100 11/20/19 21:30 111/49 11/20/19 21:15 80 20 111/49 (69) 100 11/20/19 21:00 80 21 113/51 (71) 100 11/20/19 21:00 113/51 11/20/19 20:45 81 20 108/49 (68) 100 11/20/19 20:30 81 20 120/51 (74) 100 11/20/19 20:15 81 22 109/45 (66) 100 11/20/19 20:00 35 11/20/19 20:00 100.7 83 20 116/47 (70) 100 11/20/19 20:00 120/51 11/20/19 20:00 80 11/20/19 20:00 Mechanical Ventilator 11/20/19 19:45 83 20 117/47 (70) 100 11/20/19 19:30 84 21 113/47 (69) 100 11/20/19 19:05 89 22 35 11/20/19 19:00 85 20 112/47 (68) 100 11/20/19 19:00 117/47 11/20/19 18:00 127/45 11/20/19 17:45 90 20 117/47 (70) 98 11/20/19 17:30 90 20 117/47 (70) 98 11/20/19 17:30 91 20 129/51 (77) 98 11/20/19 17:15 89 20 83/40 (54) 98 11/20/19 17:00 89 20 129/51 (77) 98 11/20/19 17:00 89 20 111/49 (69) 98 11/20/19 17:00 83/40 11/20/19 16:30 90 20 110/50 (70) 98 11/20/19 16:20 89 11/20/19 16:00 97.3 89 20 109/47 (67) 99 11/20/19 16:00 100/48 11/20/19 16:00 35 11/20/19 15:15 89 20 108/49 (68) 99 11/20/19 15:01 91 22 35 11/20/19 15:00 88 20 107/52 (70) 99 11/20/19 15:00 108/49 11/20/19 14:15 90 20 109/53 (71) 99 11/20/19 14:00 109/53 11/20/19 14:00 86 20 111/54 (73) 99 11/20/19 13:15 87 20 106/48 (67) 99 11/20/19 13:00 88 20 108/57 (74) 99 11/20/19 13:00 106/48 11/20/19 12:00 35 11/20/19 12:00 114/53 11/20/19 12:00 96.4 88 20 114/53 (73) 100 11/20/19 12:00 91 11/20/19 11:45 88 20 105/52 (69) 100 11/20/19 11:31 87 20 92/43 (59) 99 11/20/19 11:30 84 20 99 11/20/19 11:15 86 21 91/39 (56) 100 11/20/19 11:14 83 20 35 11/20/19 11:00 86 21 85/39 (54) 100 11/20/19 11:00 85/39 11/20/19 10:53 101/50 11/20/19 10:30 85 21 97/51 (66) 100 11/20/19 10:15 86 21 93/51 (65) 100 Status: awake Condition: critical HEENT: atraumatic Neck: full ROM Lungs: clear Heart: HR/BP stable Abdomen: soft, non-tender Extremities: no C/C/E Micro: Microbiology Date/Time Source Procedure Growth Status 11/18/19 13:00 Blood Blood Culture - Preliminary NO GROWTH AFTER 48 HOURS Resulted 11/18/19 12:50 Blood Blood Culture - Preliminary NO GROWTH AFTER 48 HOURS Resulted 11/18/19 14:00 Sputum Gram Stain - Final Resulted 11/18/19 14:00 Sputum Culture - Preliminary YEAST Pseudomonas Aeruginosa Resulted 11/18/19 14:00 Urine,Clean Catch Urine Culture - Final NO GROWTH AFTER 48 HOURS Complete Critical Care - Subjective ROS Limited/Unobtainable: Yes Condition: critical EKG Rhythm: Sinus Rhythm FI02: 35 Vent Support Breath Rate: 20 Vent Support Mode: AC Vent Tidal Volume: 550 Sputum Amount: Small PEEP: 5.0 PIP: 30 Tube Feeding Amount: 10 I&O: Intake and Output 11/20/19 11/21/19 19:00 07:00 Intake Total 1784.05 ml 2165.86 ml Output Total 465 ml 120 ml Balance 1319.05 ml 2045.86 ml Free Water 300 ml IV Total 1754.05 ml 1865.86 ml Other 30 ml Output Urine Total 115 ml 120 ml Stool Total 350 ml ET-Tube: 8.0 ET Position: 23 Labs: Laboratory Tests Test 11/21/19 04:00 White Blood Count 25.3 K/UL (4.8-10.8) *H Red Blood Count 2.64 M/UL (4.70-6.10) L Hemoglobin 7.5 G/DL (14.2-18.0) L Hematocrit 21.5 % (42.0-52.0) L Mean Corpuscular Volume 81 FL (80-99) Mean Corpuscular Hemoglobin 28.3 PG (27.0-31.0) Mean Corpuscular Hemoglobin Concent 34.9 G/DL (32.0-36.0) Red Cell Distribution Width 13.0 % (11.6-14.8) Platelet Count 370 K/UL (150-450) Mean Platelet Volume 5.8 FL (6.5-10.1) L Neutrophils (%) (Auto) % (45.0-75.0) Lymphocytes (%) (Auto) % (20.0-45.0) Monocytes (%) (Auto) % (1.0-10.0) Eosinophils (%) (Auto) % (0.0-3.0) Basophils (%) (Auto) % (0.0-2.0) Differential Total Cells Counted 100 Neutrophils % (Manual) 82 % (45-75) H Lymphocytes % (Manual) 6 % (20-45) L Monocytes % (Manual) 5 % (1-10) Eosinophils % (Manual) 0 % (0-3) Basophils % (Manual) 0 % (0-2) Myelocytes % 2 % (0-0) H Band Neutrophils 5 % (0-8) Platelet Estimate Adequate Platelet Morphology Normal Polychromasia 1+ Hypochromasia 1+ Sodium Level 136 MMOL/L (136-145) Potassium Level 4.3 MMOL/L (3.5-5.1) Chloride Level 105 MMOL/L (98-107) Carbon Dioxide Level 17 MMOL/L (21-32) L Anion Gap 14 mmol/L (5-15) Blood Urea Nitrogen 66 mg/dL (7-18) H Creatinine 2.7 MG/DL (0.55-1.30) H Estimat Glomerular Filtration Rate 23.3 mL/min (>60) Glucose Level 122 MG/DL (74-106) H Uric Acid 11.0 MG/DL (2.6-7.2) H Calcium Level 6.2 MG/DL (8.5-10.1) L Phosphorus Level 6.9 MG/DL (2.5-4.9) H Magnesium Level 2.0 MG/DL (1.8-2.4) Total Bilirubin 0.3 MG/DL (0.2-1.0) Aspartate Amino Transf (AST/SGOT) 79 U/L (15-37) H Alanine Aminotransferase (ALT/SGPT) 10 U/L (12-78) L Alkaline Phosphatase 61 U/L (46-116) C-Reactive Protein, Quantitative 11.0 mg/dL (0.00-0.90) H Pro-B-Type Natriuretic Peptide 5614 pg/mL (0-125) H Total Protein 4.4 G/DL (6.4-8.2) L Albumin 1.1 G/DL (3.4-5.0) L Globulin 3.3 g/dL Albumin/Globulin Ratio 0.3 (1.0-2.7) L Random Vancomycin Level 21.5 ug/mL Ayana Ndiaye MD Nov 21, 2019 10:10
--- NOTE | 2019-11-21 12:03 | Hematology/Onc Progress Note ---
Assessment/Plan Assessment/Plan Assessment and Recs # Leukocytosis/elevated white blood cell count, unspecified likely related to underlying stress reaction, smoking v more likely infection, in this case with pna and COVID19++++++++ --> have reviewed peripheral smear and bandemia/neutrophilia noted --> continue antibiotics if they have been started by ID team --> monitor for resolution --> wbc 35k-->31.2-->25-->27.4 -->25 --> abx/antivral: remdesivir/vanc/cefepime-->vanc/flagyl/monique # Thrombocytosis - if plt count >400k, most usually is a reactive process and will improve once exacerbant removed as well --> in this case due to underlying infection --> plt trend 646k-->672 -->547-->372 # Anemia of chronic disease due to underlying chronic medical issues, multifactorial v Gi bleed --> Anemia workup has been ordered, rule out gi bleed -> ferritin 1339 --> No evidence of hemolysis is noted, peripheral smear has been reviewed. --> Hgb goal >7. Transfuse prn. --> Epogen or iron at this time is not particularly indicated --> Medications have been reviewed --> low threshold for gi evaluation in case has occult + --> bone marrow biopsy is not indicated given the other more likely causes --> hgb 9.5-->9.8->8.8-->8.6-->7.5 --> 1 unit prbc 11/20 --> ddimer remains elevated currently # Acute hypoxic resp failure- on NRB 15L- 2ry to COVID19 --> per id and pulm recs --> breathing treatments and rep cxr --> 11/15 cxr: New/increased infiltrates at the left lateral lung base # UTI c/w bacteremia --> abx per id # Cdiff colitis # MONICA, improving # Deep tissue injury (sacrum, L heel) # HTN # Dm2 # MDD # Dysphagia s/p GT # malnutrition # decubitus ulcer # non verbal # 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 Greatly appreciate consultation. Subjective Allergies: Coded Allergies: No Known Allergies (Unverified , 09/16/19) All Systems: reviewed and negative except above Subjective 11/15 tele, no acute events, cxr and labs reviewed, nrb 15l, remdesivir 11/16 remains on iso, breathing is improved, no night sweats 11/17 remains with fever, cooling blankets, labs noted, no bleed hgb 8.8 11/19 icu, no acute events, vent, levo gtt, meds and labs reviewed 11/20 labs noted, no bleeding, in icu, hgb 7.5, to get one unit prbc, wbc elev 25 Objective Objective Current Medications Medications (Trade) Dose Ordered Sig/Leonor Route PRN Reason Start Time Stop Time Status Last Admin Dose Admin Acetaminophen (Tylenol) 650 mg Q4H PRN GT fever 11/18/19 03:00 12/11/19 02:59 11/19/19 20:04 Allopurinol (allopurinoL) 300 mg DAILY GT 11/21/19 09:00 12/21/19 08:59 11/21/19 09:10 Chlorhexidine Gluconate (Danielle-Hex 2%) 1 applic DAILY@2000 TOPIC 11/18/19 20:00 02/16/20 19:59 11/20/19 20:12 Dextrose/Sodium Chloride 1,000 ml @ 100 mls/hr Q10H IV 11/20/19 10:15 12/20/19 10:14 11/21/19 05:00 Heparin Sodium (Porcine) (Heparin 5000 units/ml) 5,000 units EVERY 12 HOURS SUBQ 11/18/19 09:00 12/26/19 08:59 11/21/19 09:03 Lorazepam (Ativan 2mg/ml 1ml) 2 mg Q4H PRN IV For Anxiety 11/18/19 12:10 11/25/19 12:09 11/20/19 03:50 Meropenem 500 mg/ Sodium Chloride 55 ml @ 110 mls/hr Q12HR IV 11/20/19 21:00 11/25/19 20:59 11/21/19 09:02 Metronidazole 100 ml @ 100 mls/hr Q8HR IVPB 11/18/19 06:00 11/24/19 23:59 11/21/19 05:00 Morphine Sulfate (Morphine Sulfate) 4 mg Q4H PRN IVP For Pain 11/18/19 12:10 11/25/19 12:09 Norepinephrine Bitartrate 8 mg/ Dextrose 558 ml @ 0 mls/hr Q24H IV 11/18/19 10:00 12/18/19 09:59 11/21/19 05:24 Ondansetron HCl (Zofran) 4 mg Q6H PRN IVP Nausea & Vomiting 11/18/19 03:00 12/11/19 08:59 Pantoprazole (Protonix) 40 mg DAILY IV 11/19/19 09:00 12/19/19 08:59 11/21/19 09:02 Phenylephrine HCl 50 mg/Dextrose 250 ml @ 0 mls/hr Q24H IV 11/18/19 03:15 12/18/19 03:14 11/18/19 10:46 Vancomycin HCl (Firvanq) 125 mg FOUR TIMES A DAY NG 11/18/19 09:00 11/26/19 23:59 11/21/19 09:02 Vancomycin HCl (Vanco pharmacy to dose) 1 ea DAILY PRN MISC Per rx protocol 11/18/19 09:00 12/11/19 08:59 Last 24 Hour Vital Signs Date Time Temp Pulse Resp B/P (MAP) Pulse Ox O2 Delivery O2 Flow Rate FiO2 11/21/19 11:45 97.2 74 20 95/46 (62) 100 11/21/19 11:30 97.2 72 20 95/45 (62) 100 11/21/19 11:00 71 20 95/44 (61) 100 11/21/19 10:34 70 20 35 11/21/19 10:30 72 20 96/42 (60) 100 11/21/19 10:00 89/42 11/21/19 10:00 96.0 72 20 89/42 (58) 100 11/21/19 09:30 77 21 94/42 (59) 100 11/21/19 09:00 100/45 11/21/19 09:00 76 21 100/45 (63) 100 11/21/19 08:30 78 20 97/40 (59) 100 11/21/19 08:00 Mechanical Ventilator 11/21/19 08:00 35 11/21/19 08:00 73 11/21/19 08:00 99/44 11/21/19 08:00 79 21 99/44 (62) 100 11/21/19 08:00 81 20 35 11/21/19 07:00 76 21 98/42 (60) 100 11/21/19 07:00 98/46 11/21/19 06:00 99/44 11/21/19 06:00 78 23 99/44 (62) 100 11/21/19 05:45 77 22 103/44 (63) 100 11/21/19 05:30 77 22 96/44 (61) 100 11/21/19 05:24 98/46 11/21/19 05:15 78 20 100/44 (62) 100 11/21/19 05:00 76 22 94/44 (61) 98 11/21/19 04:45 77 20 101/46 (64) 99 11/21/19 04:30 78 21 97/41 (59) 99 11/21/19 04:15 79 20 98/46 (63) 99 11/21/19 04:00 75 11/21/19 04:00 35 11/21/19 04:00 98/46 11/21/19 04:00 Mechanical Ventilator 11/21/19 04:00 97.0 79 20 100/45 (63) 99 11/21/19 03:45 79 21 99/42 (61) 98 11/21/19 03:30 80 22 92/44 (60) 98 11/21/19 03:15 80 21 102/43 (62) 98 11/21/19 03:15 80 21 35 11/21/19 03:00 79 20 98/55 (69) 98 11/21/19 03:00 96/50 11/21/19 02:45 79 21 91/52 (65) 98 11/21/19 02:30 78 23 98/49 (65) 100 11/21/19 02:15 77 22 103/60 (74) 96 11/21/19 02:00 76 21 86/39 (55) 98 11/21/19 02:00 79/44 11/21/19 01:45 77 21 102/45 (64) 98 11/21/19 01:30 77 22 104/42 (62) 98 11/21/19 01:23 77 20 104/43 (63) 98 11/21/19 01:15 77 20 79/41 (54) 98 11/21/19 01:15 73 86/41 11/21/19 01:00 86/41 11/21/19 01:00 73 21 86/41 (56) 100 11/21/19 00:30 80 20 89/38 (55) 100 11/21/19 00:00 35 11/21/19 00:00 97.5 78 21 98/42 (60) 100 11/21/19 00:00 86 11/21/19 00:00 Mechanical Ventilator 11/20/19 23:45 80 21 93/45 (61) 100 11/20/19 23:30 79 21 102/46 (64) 100 11/20/19 23:12 90 21 35 11/20/19 23:00 101/50 11/20/19 23:00 78 21 100/51 (67) 99 11/20/19 22:45 80 20 101/47 (65) 100 11/20/19 22:30 78 20 102/48 (66) 100 11/20/19 22:15 79 21 103/49 (67) 100 11/20/19 22:00 81 20 101/50 (67) 100 11/20/19 22:00 100/51 11/20/19 21:45 82 21 99/43 (61) 100 11/20/19 21:40 80 20 105/50 (68) 100 11/20/19 21:30 80 21 102/46 (64) 100 11/20/19 21:30 111/49 11/20/19 21:15 80 20 111/49 (69) 100 11/20/19 21:00 80 21 113/51 (71) 100 11/20/19 21:00 113/51 11/20/19 20:45 81 20 108/49 (68) 100 11/20/19 20:30 81 20 120/51 (74) 100 11/20/19 20:15 81 22 109/45 (66) 100 11/20/19 20:00 35 11/20/19 20:00 100.7 83 20 116/47 (70) 100 11/20/19 20:00 120/51 11/20/19 20:00 80 6/7/20 20:00 Mechanical Ventilator 11/20/19 19:45 83 20 117/47 (70) 100 11/20/19 19:30 84 21 113/47 (69) 100 11/20/19 19:05 89 22 35 11/20/19 19:00 85 20 112/47 (68) 100 11/20/19 19:00 117/47 11/20/19 18:00 127/45 11/20/19 17:45 90 20 117/47 (70) 98 11/20/19 17:30 90 20 117/47 (70) 98 11/20/19 17:30 91 20 129/51 (77) 98 11/20/19 17:15 89 20 83/40 (54) 98 11/20/19 17:00 89 20 129/51 (77) 98 11/20/19 17:00 89 20 111/49 (69) 98 11/20/19 17:00 83/40 11/20/19 16:30 90 20 110/50 (70) 98 11/20/19 16:20 89 11/20/19 16:00 97.3 89 20 109/47 (67) 99 11/20/19 16:00 100/48 11/20/19 16:00 35 11/20/19 15:15 89 20 108/49 (68) 99 11/20/19 15:01 91 22 35 11/20/19 15:00 88 20 107/52 (70) 99 11/20/19 15:00 108/49 11/20/19 14:15 90 20 109/53 (71) 99 11/20/19 14:00 109/53 11/20/19 14:00 86 20 111/54 (73) 99 11/20/19 13:15 87 20 106/48 (67) 99 11/20/19 13:00 88 20 108/57 (74) 99 11/20/19 13:00 106/48 11/20/19 12:00 35 11/20/19 12:00 114/53 11/20/19 12:00 96.4 88 20 114/53 (73) 100 11/20/19 12:00 91 11/20/19 11:45 88 20 105/52 (69) 100 11/20/19 11:31 87 20 92/43 (59) 99 11/20/19 11:30 84 20 99 6/7/20 11:15 86 21 91/39 (56) 100 11/20/19 11:14 83 20 35 11/20/19 11:00 86 21 85/39 (54) 100 11/20/19 11:00 85/39 11/20/19 10:53 101/50 11/20/19 10:30 85 21 97/51 (66) 100 11/20/19 10:15 86 21 93/51 (65) 100 11/20/19 10:00 90 19 98/50 (66) 100 11/20/19 10:00 98/50 11/20/19 09:54 86 20 107/52 (70) 100 11/20/19 09:47 86 21 84/50 (61) 100 11/20/19 09:45 86 20 100 11/20/19 09:30 84 20 90/39 (56) 100 11/20/19 09:15 84 20 83/42 (56) 100 11/20/19 09:00 84/37 11/20/19 09:00 95.3 86 20 84/37 (53) 100 11/20/19 08:00 86 11/20/19 08:00 93/43 11/20/19 08:00 86 20 93/43 (60) 100 11/20/19 08:00 35 11/20/19 07:12 84 21 35 11/20/19 07:00 91/52 11/20/19 07:00 86 20 91/45 (60) 100 11/20/19 06:15 86 19 92/49 (63) 99 11/20/19 06:00 92/52 11/20/19 06:00 86 19 92/45 (61) 99 11/20/19 05:45 88 20 98/56 (70) 99 11/20/19 05:30 87 21 92/50 (64) 99 11/20/19 05:15 90 21 91/51 (64) 99 11/20/19 05:00 91/51 11/20/19 05:00 89 20 93/47 (62) 100 11/20/19 04:30 87 20 90/54 (66) 98 11/20/19 04:00 86 11/20/19 04:00 90/54 11/20/19 04:00 Mechanical Ventilator 11/20/19 04:00 35 11/20/19 04:00 97.9 90 20 93/52 (66) 100 11/20/19 03:30 91 20 93/57 (69) 100 11/20/19 03:15 83 91/52 11/20/19 03:00 92/54 11/20/19 03:00 90 20 93/44 (60) 100 11/20/19 02:37 86 23 80 11/20/19 02:30 91 20 94/45 (61) 98 11/20/19 02:00 93/51 11/20/19 02:00 90 20 92/52 (65) 95 11/20/19 01:00 83 20 91/50 (64) 97 11/20/19 01:00 91/52 11/20/19 00:45 85 19 95/48 (64) 100 11/20/19 00:30 82 20 90/48 (62) 100 11/20/19 00:15 83 20 92/47 (62) 100 11/20/19 00:00 Mechanical Ventilator 11/20/19 00:00 97.5 84 21 88/49 (62) 100 11/20/19 00:00 88/49 11/20/19 00:00 84 11/20/19 00:00 35 11/19/19 23:45 84 21 94/37 (56) 100 11/19/19 23:30 83 20 91/49 (63) 100 11/19/19 23:15 81 21 90/47 (61) 100 11/19/19 23:00 90/47 11/19/19 23:00 80 20 91/48 (62) 100 11/19/19 22:45 82 20 90/49 (63) 100 11/19/19 22:36 87 22 80 11/19/19 22:30 81 20 88/49 (62) 100 11/19/19 22:15 83 22 89/45 (60) 100 11/19/19 22:00 94/52 11/19/19 22:00 84 20 85/40 (55) 100 11/19/19 21:45 81 21 93/51 (65) 100 11/19/19 21:30 85 21 100/54 (69) 100 11/19/19 21:15 85 21 96/43 (60) 100 11/19/19 21:00 83 21 101/46 (64) 100 11/19/19 21:00 100/59 11/19/19 20:45 85 20 105/56 (72) 100 11/19/19 20:30 86 21 102/53 (69) 100 11/19/19 20:15 87 21 91/50 (64) 100 11/19/19 20:00 Mechanical Ventilator 11/19/19 20:00 40 11/19/19 20:00 98/60 11/19/19 20:00 96.6 85 21 95/49 (64) 100 11/19/19 19:45 83 20 92/47 (62) 100 11/19/19 19:40 81 11/19/19 19:30 83 22 96/48 (64) 100 11/19/19 19:00 84 21 90/48 (62) 100 11/19/19 18:45 84 21 80 11/19/19 18:15 85 22 96/50 (65) 100 11/19/19 18:00 84 22 97/46 (63) 100 11/19/19 17:00 83 23 98/41 (60) 100 11/19/19 16:00 80 11/19/19 16:00 83 11/19/19 16:00 99.0 86 24 107/52 (70) 100 11/19/19 15:36 88 25 80 11/19/19 15:00 86 22 109/52 (71) 100 11/19/19 14:34 105/53 11/19/19 14:30 83 23 105/55 (72) 100 11/19/19 14:00 82 25 110/50 (70) 100 11/19/19 13:15 84 24 104/52 (69) 100 11/19/19 13:00 107/53 11/19/19 13:00 84 24 112/53 (72) 100 11/19/19 12:49 98.8 11/19/19 12:45 85 23 111/53 (72) 100 11/19/19 12:30 84 22 113/54 (73) 100 11/19/19 12:15 83 24 115/54 (74) 100 Intake and Output 11/20/19 11/21/19 19:00 07:00 Intake Total 1784.05 ml 2165.86 ml Output Total 465 ml 120 ml Balance 1319.05 ml 2045.86 ml Free Water 300 ml IV Total 1754.05 ml 1865.86 ml Other 30 ml Output Urine Total 115 ml 120 ml Stool Total 350 ml Labs Test 11/18/19 14:00 11/19/19 06:25 11/19/19 08:29 11/19/19 15:10 Urine Color Yellow Urine Appearance Slightly cloudy Urine pH 5 (4.5-8.0) Urine Specific [place] 1.025 (1.005-1.035) Urine Protein 3+ (NEGATIVE) Urine Glucose (UA) 1+ (NEGATIVE) Urine Ketones 1+ (NEGATIVE) Urine Blood 5+ (NEGATIVE) Urine Nitrite Positive (NEGATIVE) Urine Bilirubin Negative (NEGATIVE) Urine Urobilinogen 1 MG/DL (0.0-1.0) Urine Leukocyte Esterase 1+ (NEGATIVE) Urine RBC Tntc /HPF (0 - 0) Urine WBC 2-4 /HPF (0 - 0) Urine Squamous Epithelial Cells None /LPF (NONE/OCC) Urine Bacteria Many /HPF (NONE) White Blood Count 32.2 K/UL (4.8-10.8) Red Blood Count 2.93 M/UL (4.70-6.10) Hemoglobin 8.0 G/DL (14.2-18.0) Hematocrit 24.1 % (42.0-52.0) Mean Corpuscular Volume 82 FL (80-99) Mean Corpuscular Hemoglobin 27.3 PG (27.0-31.0) Mean Corpuscular Hemoglobin Concent 33.2 G/DL (32.0-36.0) Red Cell Distribution Width 13.5 % (11.6-14.8) Platelet Count 387 K/UL (150-450) Mean Platelet Volume 5.3 FL (6.5-10.1) Neutrophils (%) (Auto) % (45.0-75.0) Lymphocytes (%) (Auto) % (20.0-45.0) Monocytes (%) (Auto) % (1.0-10.0) Eosinophils (%) (Auto) % (0.0-3.0) Basophils (%) (Auto) % (0.0-2.0) Differential Total Cells Counted 100 Neutrophils % (Manual) 89 % (45-75) Lymphocytes % (Manual) 4 % (20-45) Monocytes % (Manual) 7 % (1-10) Eosinophils % (Manual) 0 % (0-3) Basophils % (Manual) 0 % (0-2) Band Neutrophils 0 % (0-8) Platelet Estimate Adequate Platelet Morphology Normal Hypochromasia 2+ Anisocytosis 1+ Sodium Level 140 MMOL/L (136-145) Potassium Level 4.5 MMOL/L (3.5-5.1) Chloride Level 109 MMOL/L (98-107) Carbon Dioxide Level 17 MMOL/L (21-32) Anion Gap 14 mmol/L (5-15) Blood Urea Nitrogen 57 mg/dL (7-18) Creatinine 2.0 MG/DL (0.55-1.30) Estimat Glomerular Filtration Rate 33.0 mL/min (>60) Glucose Level 150 MG/DL (74-106) Lactic Acid Level 2.50 mmol/L (0.4-2.0) 2.40 mmol/L (0.4-2.0) Uric Acid 9.4 MG/DL (2.6-7.2) Calcium Level 6.4 MG/DL (8.5-10.1) Phosphorus Level 4.2 MG/DL (2.5-4.9) Magnesium Level 2.0 MG/DL (1.8-2.4) Total Bilirubin 0.3 MG/DL (0.2-1.0) Gamma Glutamyl Transpeptidase 33 U/L (5-85) Aspartate Amino Transf (AST/SGOT) 66 U/L (15-37) Alanine Aminotransferase (ALT/SGPT) 15 U/L (12-78) Alkaline Phosphatase 77 U/L (46-116) Lactate Dehydrogenase 531 U/L (81-234) Total Creatine Kinase 89 U/L (26-308) Troponin I 0.013 ng/mL (0.000-0.056) C-Reactive Protein, Quantitative 23.2 mg/dL (0.00-0.90) Pro-B-Type Natriuretic Peptide 5880 pg/mL (0-125) Total Protein 4.8 G/DL (6.4-8.2) Albumin 0.9 G/DL (3.4-5.0) Globulin 3.9 g/dL Albumin/Globulin Ratio 0.2 (1.0-2.7) Cortisol AM Sample 15.9 UG/DL Arterial Blood pH 7.334 (7.350-7.450) Arterial Blood Partial Pressure CO2 30.9 mmHg (35.0-45.0) Arterial Blood Partial Pressure O2 314.4 mmHg (75.0-100.0) Arterial Blood HCO3 16.1 mmol/L (22.0-26.0) Arterial Blood Oxygen Saturation 98.9 % (95-100) Arterial Blood Base Excess -8.8 (-2-2) Michael Test Positive Test 11/20/19 04:00 11/20/19 08:01 11/21/19 04:00 White Blood Count 27.4 K/UL (4.8-10.8) 25.3 K/UL (4.8-10.8) Red Blood Count 3.02 M/UL (4.70-6.10) 2.64 M/UL (4.70-6.10) Hemoglobin 8.6 G/DL (14.2-18.0) 7.5 G/DL (14.2-18.0) Hematocrit 25.0 % (42.0-52.0) 21.5 % (42.0-52.0) Mean Corpuscular Volume 83 FL (80-99) 81 FL (80-99) Mean Corpuscular Hemoglobin 28.4 PG (27.0-31.0) 28.3 PG (27.0-31.0) Mean Corpuscular Hemoglobin Concent 34.3 G/DL (32.0-36.0) 34.9 G/DL (32.0-36.0) Red Cell Distribution Width 13.8 % (11.6-14.8) 13.0 % (11.6-14.8) Platelet Count 372 K/UL (150-450) 370 K/UL (150-450) Mean Platelet Volume 5.9 FL (6.5-10.1) 5.8 FL (6.5-10.1) Neutrophils (%) (Auto) % (45.0-75.0) % (45.0-75.0) Lymphocytes (%) (Auto) % (20.0-45.0) % (20.0-45.0) Monocytes (%) (Auto) % (1.0-10.0) % (1.0-10.0) Eosinophils (%) (Auto) % (0.0-3.0) % (0.0-3.0) Basophils (%) (Auto) % (0.0-2.0) % (0.0-2.0) Differential Total Cells Counted 100 100 Neutrophils % (Manual) 88 % (45-75) 82 % (45-75) Lymphocytes % (Manual) 4 % (20-45) 6 % (20-45) Monocytes % (Manual) 8 % (1-10) 5 % (1-10) Eosinophils % (Manual) 0 % (0-3) 0 % (0-3) Basophils % (Manual) 0 % (0-2) 0 % (0-2) Band Neutrophils 0 % (0-8) 5 % (0-8) Platelet Estimate Adequate Adequate Platelet Morphology Normal Normal Hypochromasia 1+ 1+ Sodium Level 135 MMOL/L (136-145) 136 MMOL/L (136-145) Potassium Level 5.0 MMOL/L (3.5-5.1) 4.3 MMOL/L (3.5-5.1) Chloride Level 104 MMOL/L (98-107) 105 MMOL/L (98-107) Carbon Dioxide Level 17 MMOL/L (21-32) 17 MMOL/L (21-32) Anion Gap 14 mmol/L (5-15) 14 mmol/L (5-15) Blood Urea Nitrogen 63 mg/dL (7-18) 66 mg/dL (7-18) Creatinine 2.5 MG/DL (0.55-1.30) 2.7 MG/DL (0.55-1.30) Estimat Glomerular Filtration Rate 25.5 mL/min (>60) 23.3 mL/min (>60) Glucose Level 90 MG/DL (74-106) 122 MG/DL (74-106) Calcium Level 6.1 MG/DL (8.5-10.1) 6.2 MG/DL (8.5-10.1) Phosphorus Level 5.9 MG/DL (2.5-4.9) 6.9 MG/DL (2.5-4.9) Magnesium Level 2.0 MG/DL (1.8-2.4) 2.0 MG/DL (1.8-2.4) Total Bilirubin 0.2 MG/DL (0.2-1.0) 0.3 MG/DL (0.2-1.0) Aspartate Amino Transf (AST/SGOT) 75 U/L (15-37) 79 U/L (15-37) Alanine Aminotransferase (ALT/SGPT) 15 U/L (12-78) 10 U/L (12-78) Alkaline Phosphatase 72 U/L (46-116) 61 U/L (46-116) Total Protein 4.4 G/DL (6.4-8.2) 4.4 G/DL (6.4-8.2) Albumin 0.8 G/DL (3.4-5.0) 1.1 G/DL (3.4-5.0) Globulin 3.6 g/dL 3.3 g/dL Albumin/Globulin Ratio 0.2 (1.0-2.7) 0.3 (1.0-2.7) Random Vancomycin Level 22.6 ug/mL 21.5 ug/mL Arterial Blood pH 7.295 (7.350-7.450) Arterial Blood Partial Pressure CO2 31.8 mmHg (35.0-45.0) Arterial Blood Partial Pressure O2 251.6 mmHg (75.0-100.0) Arterial Blood HCO3 15.1 mmol/L (22.0-26.0) Arterial Blood Oxygen Saturation 99.2 % (95-100) Arterial Blood Base Excess -10.4 (-2-2) Michael Test Positive Myelocytes % 2 % (0-0) Polychromasia 1+ Uric Acid 11.0 MG/DL (2.6-7.2) C-Reactive Protein, Quantitative 11.0 mg/dL (0.00-0.90) Pro-B-Type Natriuretic Peptide 5614 pg/mL (0-125) Height (Feet): 6 Height (Inches): 0.00 Weight (Pounds): 195 Objective PE General: alert, chronically Ill Heent: nc, at Neck: full range of motion, supple, no meningismus Respiratory: chest non-tender, decreased breath sounds, crackles, vent++ Cardiovascular: no murmur, tachycardia Gastrointestinal: normal bowel sounds, non tender,+peg Musculoskeletal: back normal, normal range of motion, gait/station normal Neurologic: no pronator KleDeng blancas MD Nov 21, 2019 12:03
--- NOTE | 2019-11-21 13:38 | Surgery Progress Note ---
Surgery Progress Note Subjective Additional Comments on levo 8 35% fi / peep 5 Objective Last 24 Hour Vital Signs Date Time Temp Pulse Resp B/P (MAP) Pulse Ox O2 Delivery O2 Flow Rate FiO2 11/21/19 12:00 Mechanical Ventilator 11/21/19 12:00 97.3 75 20 106/44 (64) 100 11/21/19 12:00 106/44 11/21/19 12:00 74 11/21/19 12:00 35 11/21/19 11:45 97.2 74 20 95/46 (62) 100 11/21/19 11:30 97.2 72 20 95/45 (62) 100 11/21/19 11:00 95/44 11/21/19 11:00 71 20 95/44 (61) 100 11/21/19 10:34 70 20 35 11/21/19 10:30 72 20 96/42 (60) 100 11/21/19 10:00 89/42 11/21/19 10:00 96.0 72 20 89/42 (58) 100 11/21/19 09:30 77 21 94/42 (59) 100 11/21/19 09:00 100/45 11/21/19 09:00 76 21 100/45 (63) 100 11/21/19 08:30 78 20 97/40 (59) 100 11/21/19 08:00 Mechanical Ventilator 11/21/19 08:00 35 11/21/19 08:00 73 11/21/19 08:00 99/44 11/21/19 08:00 79 21 99/44 (62) 100 11/21/19 08:00 81 20 35 11/21/19 07:00 76 21 98/42 (60) 100 11/21/19 07:00 98/46 11/21/19 06:00 99/44 11/21/19 06:00 78 23 99/44 (62) 100 11/21/19 05:45 77 22 103/44 (63) 100 11/21/19 05:30 77 22 96/44 (61) 100 11/21/19 05:24 98/46 11/21/19 05:15 78 20 100/44 (62) 100 11/21/19 05:00 76 22 94/44 (61) 98 11/21/19 04:45 77 20 101/46 (64) 99 11/21/19 04:30 78 21 97/41 (59) 99 11/21/19 04:15 79 20 98/46 (63) 99 11/21/19 04:00 75 11/21/19 04:00 35 11/21/19 04:00 98/46 11/21/19 04:00 Mechanical Ventilator 11/21/19 04:00 97.0 79 20 100/45 (63) 99 11/21/19 03:45 79 21 99/42 (61) 98 11/21/19 03:30 80 22 92/44 (60) 98 11/21/19 03:15 80 21 102/43 (62) 98 11/21/19 03:15 80 21 35 11/21/19 03:00 79 20 98/55 (69) 98 11/21/19 03:00 96/50 11/21/19 02:45 79 21 91/52 (65) 98 11/21/19 02:30 78 23 98/49 (65) 100 11/21/19 02:15 77 22 103/60 (74) 96 11/21/19 02:00 76 21 86/39 (55) 98 11/21/19 02:00 79/44 11/21/19 01:45 77 21 102/45 (64) 98 11/21/19 01:30 77 22 104/42 (62) 98 11/21/19 01:23 77 20 104/43 (63) 98 11/21/19 01:15 77 20 79/41 (54) 98 11/21/19 01:15 73 86/41 11/21/19 01:00 86/41 11/21/19 01:00 73 21 86/41 (56) 100 11/21/19 00:30 80 20 89/38 (55) 100 11/21/19 00:00 35 11/21/19 00:00 97.5 78 21 98/42 (60) 100 11/21/19 00:00 86 11/21/19 00:00 Mechanical Ventilator 11/20/19 23:45 80 21 93/45 (61) 100 11/20/19 23:30 79 21 102/46 (64) 100 11/20/19 23:12 90 21 35 11/20/19 23:00 101/50 11/20/19 23:00 78 21 100/51 (67) 99 11/20/19 22:45 80 20 101/47 (65) 100 11/20/19 22:30 78 20 102/48 (66) 100 11/20/19 22:15 79 21 103/49 (67) 100 11/20/19 22:00 81 20 101/50 (67) 100 11/20/19 22:00 100/51 11/20/19 21:45 82 21 99/43 (61) 100 11/20/19 21:40 80 20 105/50 (68) 100 11/20/19 21:30 80 21 102/46 (64) 100 11/20/19 21:30 111/49 11/20/19 21:15 80 20 111/49 (69) 100 11/20/19 21:00 80 21 113/51 (71) 100 11/20/19 21:00 113/51 11/20/19 20:45 81 20 108/49 (68) 100 11/20/19 20:30 81 20 120/51 (74) 100 11/20/19 20:15 81 22 109/45 (66) 100 11/20/19 20:00 35 11/20/19 20:00 100.7 83 20 116/47 (70) 100 11/20/19 20:00 120/51 11/20/19 20:00 80 11/20/19 20:00 Mechanical Ventilator 11/20/19 19:45 83 20 117/47 (70) 100 11/20/19 19:30 84 21 113/47 (69) 100 11/20/19 19:05 89 22 35 11/20/19 19:00 85 20 112/47 (68) 100 11/20/19 19:00 117/47 11/20/19 18:00 127/45 11/20/19 17:45 90 20 117/47 (70) 98 11/20/19 17:30 90 20 117/47 (70) 98 11/20/19 17:30 91 20 129/51 (77) 98 20 17:15 89 20 83/40 (54) 98 11/20/19 17:00 89 20 129/51 (77) 98 11/20/19 17:00 89 20 111/49 (69) 98 11/20/19 17:00 83/40 6/7/20 16:30 90 20 110/50 (70) 98 11/20/19 16:20 89 11/20/19 16:00 97.3 89 20 109/47 (67) 99 11/20/19 16:00 100/48 11/20/19 16:00 35 11/20/19 15:15 89 20 108/49 (68) 99 11/20/19 15:01 91 22 35 11/20/19 15:00 88 20 107/52 (70) 99 11/20/19 15:00 108/49 11/20/19 14:15 90 20 109/53 (71) 99 11/20/19 14:00 109/53 11/20/19 14:00 86 20 111/54 (73) 99 I&O Intake and Output 11/20/19 11/21/19 19:00 07:00 Intake Total 1784.05 ml 2165.86 ml Output Total 465 ml 120 ml Balance 1319.05 ml 2045.86 ml Free Water 300 ml IV Total 1754.05 ml 1865.86 ml Other 30 ml Output Urine Total 115 ml 120 ml Stool Total 350 ml Dressing: other Wound: other Drains: other Cardiovascular: RSR Respiratory: decreased breath sounds Abdomen: soft, non-tender, present bowel sounds Extremities: no cyanosis Laboratory Tests Test 11/21/19 04:00 White Blood Count 25.3 K/UL (4.8-10.8) *H Red Blood Count 2.64 M/UL (4.70-6.10) L Hemoglobin 7.5 G/DL (14.2-18.0) L Hematocrit 21.5 % (42.0-52.0) L Mean Corpuscular Volume 81 FL (80-99) Mean Corpuscular Hemoglobin 28.3 PG (27.0-31.0) Mean Corpuscular Hemoglobin Concent 34.9 G/DL (32.0-36.0) Red Cell Distribution Width 13.0 % (11.6-14.8) Platelet Count 370 K/UL (150-450) Mean Platelet Volume 5.8 FL (6.5-10.1) L Neutrophils (%) (Auto) % (45.0-75.0) Lymphocytes (%) (Auto) % (20.0-45.0) Monocytes (%) (Auto) % (1.0-10.0) Eosinophils (%) (Auto) % (0.0-3.0) Basophils (%) (Auto) % (0.0-2.0) Differential Total Cells Counted 100 Neutrophils % (Manual) 82 % (45-75) H Lymphocytes % (Manual) 6 % (20-45) L Monocytes % (Manual) 5 % (1-10) Eosinophils % (Manual) 0 % (0-3) Basophils % (Manual) 0 % (0-2) Myelocytes % 2 % (0-0) H Band Neutrophils 5 % (0-8) Platelet Estimate Adequate Platelet Morphology Normal Polychromasia 1+ Hypochromasia 1+ Sodium Level 136 MMOL/L (136-145) Potassium Level 4.3 MMOL/L (3.5-5.1) Chloride Level 105 MMOL/L (98-107) Carbon Dioxide Level 17 MMOL/L (21-32) L Anion Gap 14 mmol/L (5-15) Blood Urea Nitrogen 66 mg/dL (7-18) H Creatinine 2.7 MG/DL (0.55-1.30) H Estimat Glomerular Filtration Rate 23.3 mL/min (>60) Glucose Level 122 MG/DL (74-106) H Uric Acid 11.0 MG/DL (2.6-7.2) H Calcium Level 6.2 MG/DL (8.5-10.1) L Phosphorus Level 6.9 MG/DL (2.5-4.9) H Magnesium Level 2.0 MG/DL (1.8-2.4) Total Bilirubin 0.3 MG/DL (0.2-1.0) Aspartate Amino Transf (AST/SGOT) 79 U/L (15-37) H Alanine Aminotransferase (ALT/SGPT) 10 U/L (12-78) L Alkaline Phosphatase 61 U/L (46-116) C-Reactive Protein, Quantitative 11.0 mg/dL (0.00-0.90) H Pro-B-Type Natriuretic Peptide 5614 pg/mL (0-125) H Total Protein 4.4 G/DL (6.4-8.2) L Albumin 1.1 G/DL (3.4-5.0) L Globulin 3.3 g/dL Albumin/Globulin Ratio 0.3 (1.0-2.7) L Random Vancomycin Level 21.5 ug/mL Plan Problems: (1) Decubitus skin ulcer Assessment & Plan: Pt presented on admission with large sacral wound. Base of wound with areas that area purple and indurated sacrococcygeal,L sacrum/L gluteus,Scattered wounds with maceration L gluteus, one wound R sacrum with Biofilm, Surrounding non-blanching erythema entire buttocks. Small dry scabbed area noted to lumbar area. Unstageable Pressure Injury L heel. Base of wound is necrotic with surrounding non-blanching erythema. Tx.plan: Apply Moisture Barrier Paste to Buttocks. Cover Sacrum, R and L gluteal cheeks with Optifoam drsgs. Change every 3 days and prn. Apply Betadine to L heel. Cover with Optifoam drsg. Change every 3 days and prn. Reposition at least every 2hours or as tolerated. Place Pillow between knees. Off-load heels with Pillow. APM/BRUNILDA Mattress overlay. DAILY ESTIMATED NEEDS: Needs based on wt loss, underweight, wound/ 59kg 30-35 kcals/kg 8336-9530 total kcals 1.25-2 g protein/kg 74-118 g total protein 25-30 mL/kg 0924-0105 total fluid mLs NUTRITION DIAGNOSIS: * Increased kcal/prot intake needs R/T wound healing, suspected recent significant wt loss as evidenced by admitted w/ wounds @ lt posterior heel, R lower back, sacrum as per photos, pending eval, suspected significant wt loss of 40lbs/ 23.7% in <5 months, currently @ 81% IBW. . * Swallowing difficulty R/T dysphagia, h/o CVA as evidenced by PEG dependent. CURRENT TF:Glucerna 1.2 @65ml/hr x24 hrs ENTERAL NUTRITION RECOMMENDATIONS: NEPRO @45ml/hr x24 hrs to provide 1080ml, 1944 kcal, 87g pro, 785ml free H2O - Rec TF change for lower K content (1145mg in Nepro @45 vs 3151mg in Glucerna 1.2 @65) - Start at 25ml/hr advance as tolerated 10ml/hr q4-6 hrs - HOB over 30 degrees - Increased H20 flush to 200ml q4 hrs ADDITIONAL RECOMMENDATIONS: 1) Calibrated bedscale wt -> per SNF: HT=59" and BI=679psk (10/20/19) 2) Wound healing: Add Vit C 500mg QD/ or dosing per nephro Add Osbaldo BID via PEG w/ TF order 3) Monitor lytes: monitor K trend, need for renal TF (K 5.3, 5.5) 4) NISS w/ TF (h/o DM) 5) Monitor for diarrhea, rec probiotics (2) Sepsis Assessment & Plan: 74-year-old male multi-medical comorbidities admitted for respiratory deficiency currently tachypneic, leukocytosis, malnutrition, hypoalbuminemia. Complete physical exam performed identified areas of concerned given patient's comorbidities current condition high risk for deteriorationNo active infection identified from patient's wounds and likely respiratory nature. Chest x-ray reviewed. No acute surgical intervention planned at this time Preventive measures IV antibiotics per infectious disease Okay for feeding once stable respiratory Appreciate Pulm input c diff positive on vanco blood cx noted worsening leukocytosis ID abx noted heme input noted There are increasing basilar opacities on the left noted. The heart size is normal. The pleural spaces are clear. 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
--- NOTE | 2019-11-21 13:47 | Infectious Diseases Prog Note ---
Assessment/Plan Assessment/Plan Assessment: PEA arrest> unstable SVT s/p cardioversion 11/17 Septic shock- pressors requirements decreasing Fever, recurrent Leukocytosis; worsened, now improving -11/17 u/a no pyuria; ucx neg Bcx NTD sp cx PsA (R Zosyn; S Gentamycin, levaquin) Pneumonia Acute hypoxic resp failure- sp NRB 15L, now VDRF 11/17 - 2ry to COVID19 and superimposed bacterial PNA -11/19 CXR: There is been worsening of moderately consolidating right middle lobe pneumonia. -11/17 CXR: Bilateral lower lobe atelectasis/infiltrates, slightly increased. No large pleural effusions. -11/15 CXR: New/increased infiltrates at the left lateral lung base -11/11 CXR: Mild interstitial thickening is slightly improved. -11/10 CXR: Hazy basilar infiltrates left greater than right. sp cx PsA (blackwood S), P.mirabilis (blackwood S), MRSA (S Vanco CARLOS 1, bactrim; R tetracycline ) -11/10 SARS-COV2 positive UTI c/w bacteremia -u/a wbc 5-10, nit neg, leuk +1, RBC TNCT; ucx 10-20k E. faecalis (S amp, vanco) -11/10 Bcx 2/4 E. faecalis (S Vancomycin, AMP) CONS bacteremia- likely contaminant -11/10 Bcx 2/4 S. 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 [place] resident ([facility]) VRE colonized MRSA colonized Plan: -Continue empiric IV Vancomycin #11/ for MRSA PNA -Meropenem #4 -Cont PO Vancomycin 125mg qid #02/26 and add IV Flagyl #7/10-14 for severe Cdiff -11/17 SP cefepime #8, Remdesivir #5 -f/u cx -Monitor CBC/CMP, temperature -COVID19 isolation and testing -PEG care -wound care per surgical team -aspiration precautions -f/u repeat Bcx -will need 2d echo later on this admission -poor px -f/u repeat cultures Thank you for consulting [facility]. Will continue to follow along with you. Discussed with RN and pharm Subjective Allergies: Coded Allergies: No Known Allergies (Unverified , 09/16/19) Subjective TM 100.7 FIo2 decreased to 35% wbc improving cr increased off roland, levophed at 6 Objective Vital Signs Last 24 Hour Vital Signs Date Time Temp Pulse Resp B/P (MAP) Pulse Ox O2 Delivery O2 Flow Rate FiO2 11/21/19 12:00 Mechanical Ventilator 11/21/19 12:00 97.3 75 20 106/44 (64) 100 11/21/19 12:00 106/44 11/21/19 12:00 74 11/21/19 12:00 35 11/21/19 11:45 97.2 74 20 95/46 (62) 100 11/21/19 11:30 97.2 72 20 95/45 (62) 100 11/21/19 11:00 95/44 11/21/19 11:00 71 20 95/44 (61) 100 11/21/19 10:34 70 20 35 11/21/19 10:30 72 20 96/42 (60) 100 11/21/19 10:00 89/42 11/21/19 10:00 96.0 72 20 89/42 (58) 100 11/21/19 09:30 77 21 94/42 (59) 100 11/21/19 09:00 100/45 11/21/19 09:00 76 21 100/45 (63) 100 11/21/19 08:30 78 20 97/40 (59) 100 11/21/19 08:00 Mechanical Ventilator 11/21/19 08:00 35 11/21/19 08:00 73 11/21/19 08:00 99/44 11/21/19 08:00 79 21 99/44 (62) 100 11/21/19 08:00 81 20 35 11/21/19 07:00 76 21 98/42 (60) 100 11/21/19 07:00 98/46 11/21/19 06:00 99/44 11/21/19 06:00 78 23 99/44 (62) 100 11/21/19 05:45 77 22 103/44 (63) 100 11/21/19 05:30 77 22 96/44 (61) 100 11/21/19 05:24 98/46 11/21/19 05:15 78 20 100/44 (62) 100 11/21/19 05:00 76 22 94/44 (61) 98 11/21/19 04:45 77 20 101/46 (64) 99 11/21/19 04:30 78 21 97/41 (59) 99 11/21/19 04:15 79 20 98/46 (63) 99 11/21/19 04:00 75 11/21/19 04:00 35 11/21/19 04:00 98/46 11/21/19 04:00 Mechanical Ventilator 11/21/19 04:00 97.0 79 20 100/45 (63) 99 11/21/19 03:45 79 21 99/42 (61) 98 11/21/19 03:30 80 22 92/44 (60) 98 11/21/19 03:15 80 21 102/43 (62) 98 11/21/19 03:15 80 21 35 11/21/19 03:00 79 20 98/55 (69) 98 11/21/19 03:00 96/50 11/21/19 02:45 79 21 91/52 (65) 98 11/21/19 02:30 78 23 98/49 (65) 100 11/21/19 02:15 77 22 103/60 (74) 96 11/21/19 02:00 76 21 86/39 (55) 98 11/21/19 02:00 79/44 11/21/19 01:45 77 21 102/45 (64) 98 11/21/19 01:30 77 22 104/42 (62) 98 11/21/19 01:23 77 20 104/43 (63) 98 11/21/19 01:15 77 20 79/41 (54) 98 11/21/19 01:15 73 86/41 11/21/19 01:00 86/41 11/21/19 01:00 73 21 86/41 (56) 100 11/21/19 00:30 80 20 89/38 (55) 100 11/21/19 00:00 35 11/21/19 00:00 97.5 78 21 98/42 (60) 100 11/21/19 00:00 86 11/21/19 00:00 Mechanical Ventilator 11/20/19 23:45 80 21 93/45 (61) 100 11/20/19 23:30 79 21 102/46 (64) 100 11/20/19 23:12 90 21 35 11/20/19 23:00 101/50 11/20/19 23:00 78 21 100/51 (67) 99 11/20/19 22:45 80 20 101/47 (65) 100 11/20/19 22:30 78 20 102/48 (66) 100 11/20/19 22:15 79 21 103/49 (67) 100 11/20/19 22:00 81 20 101/50 (67) 100 11/20/19 22:00 100/51 11/20/19 21:45 82 21 99/43 (61) 100 11/20/19 21:40 80 20 105/50 (68) 100 11/20/19 21:30 80 21 102/46 (64) 100 11/20/19 21:30 111/49 11/20/19 21:15 80 20 111/49 (69) 100 11/20/19 21:00 80 21 113/51 (71) 100 11/20/19 21:00 113/51 11/20/19 20:45 81 20 108/49 (68) 100 11/20/19 20:30 81 20 120/51 (74) 100 11/20/19 20:15 81 22 109/45 (66) 100 11/20/19 20:00 35 11/20/19 20:00 100.7 83 20 116/47 (70) 100 11/20/19 20:00 120/51 11/20/19 20:00 80 11/20/19 20:00 Mechanical Ventilator 11/20/19 19:45 83 20 117/47 (70) 100 11/20/19 19:30 84 21 113/47 (69) 100 11/20/19 19:05 89 22 35 11/20/19 19:00 85 20 112/47 (68) 100 11/20/19 19:00 117/47 11/20/19 18:00 127/45 11/20/19 17:45 90 20 117/47 (70) 98 11/20/19 17:30 90 20 117/47 (70) 98 6/7/20 17:30 91 20 129/51 (77) 98 11/20/19 17:15 89 20 83/40 (54) 98 11/20/19 17:00 89 20 129/51 (77) 98 11/20/19 17:00 89 20 111/49 (69) 98 11/20/19 17:00 83/40 11/20/19 16:30 90 20 110/50 (70) 98 11/20/19 16:20 89 11/20/19 16:00 97.3 89 20 109/47 (67) 99 11/20/19 16:00 100/48 11/20/19 16:00 35 11/20/19 15:15 89 20 108/49 (68) 99 11/20/19 15:01 91 22 35 11/20/19 15:00 88 20 107/52 (70) 99 11/20/19 15:00 108/49 11/20/19 14:15 90 20 109/53 (71) 99 11/20/19 14:00 109/53 11/20/19 14:00 86 20 111/54 (73) 99 Height (Feet): 6 Height (Inches): 0.00 Weight (Pounds): 195 Objective Gen: critically ill HEENT: ETT in place Lungs: no tacypnea or use of accessory muscles Neuro: lethargic Microbiology Date/Time Source Procedure Growth Status 11/18/19 14:00 Sputum Gram Stain - Final Resulted 11/18/19 14:00 Sputum Culture - Preliminary YEAST Pseudomonas Aeruginosa Resulted 11/18/19 14:00 Urine,Clean Catch Urine Culture - Final NO GROWTH AFTER 48 HOURS Complete Laboratory Tests Test 11/21/19 04:00 White Blood Count 25.3 K/UL (4.8-10.8) *H Red Blood Count 2.64 M/UL (4.70-6.10) L Hemoglobin 7.5 G/DL (14.2-18.0) L Hematocrit 21.5 % (42.0-52.0) L Mean Corpuscular Volume 81 FL (80-99) Mean Corpuscular Hemoglobin 28.3 PG (27.0-31.0) Mean Corpuscular Hemoglobin Concent 34.9 G/DL (32.0-36.0) Red Cell Distribution Width 13.0 % (11.6-14.8) Platelet Count 370 K/UL (150-450) Mean Platelet Volume 5.8 FL (6.5-10.1) L Neutrophils (%) (Auto) % (45.0-75.0) Lymphocytes (%) (Auto) % (20.0-45.0) Monocytes (%) (Auto) % (1.0-10.0) Eosinophils (%) (Auto) % (0.0-3.0) Basophils (%) (Auto) % (0.0-2.0) Differential Total Cells Counted 100 Neutrophils % (Manual) 82 % (45-75) H Lymphocytes % (Manual) 6 % (20-45) L Monocytes % (Manual) 5 % (1-10) Eosinophils % (Manual) 0 % (0-3) Basophils % (Manual) 0 % (0-2) Myelocytes % 2 % (0-0) H Band Neutrophils 5 % (0-8) Platelet Estimate Adequate Platelet Morphology Normal Polychromasia 1+ Hypochromasia 1+ Sodium Level 136 MMOL/L (136-145) Potassium Level 4.3 MMOL/L (3.5-5.1) Chloride Level 105 MMOL/L (98-107) Carbon Dioxide Level 17 MMOL/L (21-32) L Anion Gap 14 mmol/L (5-15) Blood Urea Nitrogen 66 mg/dL (7-18) H Creatinine 2.7 MG/DL (0.55-1.30) H Estimat Glomerular Filtration Rate 23.3 mL/min (>60) Glucose Level 122 MG/DL (74-106) H Uric Acid 11.0 MG/DL (2.6-7.2) H Calcium Level 6.2 MG/DL (8.5-10.1) L Phosphorus Level 6.9 MG/DL (2.5-4.9) H Magnesium Level 2.0 MG/DL (1.8-2.4) Total Bilirubin 0.3 MG/DL (0.2-1.0) Aspartate Amino Transf (AST/SGOT) 79 U/L (15-37) H Alanine Aminotransferase (ALT/SGPT) 10 U/L (12-78) L Alkaline Phosphatase 61 U/L (46-116) C-Reactive Protein, Quantitative 11.0 mg/dL (0.00-0.90) H Pro-B-Type Natriuretic Peptide 5614 pg/mL (0-125) H Total Protein 4.4 G/DL (6.4-8.2) L Albumin 1.1 G/DL (3.4-5.0) L Globulin 3.3 g/dL Albumin/Globulin Ratio 0.3 (1.0-2.7) L Random Vancomycin Level 21.5 ug/mL Current Medications Medications (Trade) Dose Ordered Sig/Leonor Route PRN Reason Start Time Stop Time Status Last Admin Dose Admin Acetaminophen (Tylenol) 650 mg Q4H PRN GT fever 11/18/19 03:00 12/11/19 02:59 11/19/19 20:04 Allopurinol (allopurinoL) 300 mg DAILY GT 11/21/19 09:00 12/21/19 08:59 11/21/19 09:10 Chlorhexidine Gluconate (Danielle-Hex 2%) 1 applic DAILY@2000 TOPIC 11/18/19 20:00 02/16/20 19:59 11/20/19 20:12 Dextrose/Sodium Chloride 1,000 ml @ 100 mls/hr Q10H IV 11/20/19 10:15 12/20/19 10:14 11/21/19 05:00 Heparin Sodium (Porcine) (Heparin 5000 units/ml) 5,000 units EVERY 12 HOURS SUBQ 11/18/19 09:00 12/26/19 08:59 11/21/19 09:03 Lorazepam (Ativan 2mg/ml 1ml) 2 mg Q4H PRN IV For Anxiety 11/18/19 12:10 11/25/19 12:09 11/20/19 03:50 Meropenem 500 mg/ Sodium Chloride 55 ml @ 110 mls/hr Q12HR IV 11/20/19 21:00 11/25/19 20:59 11/21/19 09:02 Metronidazole 100 ml @ 100 mls/hr Q8HR IVPB 11/18/19 06:00 11/24/19 23:59 11/21/19 05:00 Morphine Sulfate (Morphine Sulfate) 4 mg Q4H PRN IVP For Pain 11/18/19 12:10 11/25/19 12:09 Norepinephrine Bitartrate 8 mg/ Dextrose 558 ml @ 0 mls/hr Q24H IV 11/18/19 10:00 12/18/19 09:59 11/21/19 05:24 Ondansetron HCl (Zofran) 4 mg Q6H PRN IVP Nausea & Vomiting 11/18/19 03:00 12/11/19 08:59 Pantoprazole (Protonix) 40 mg DAILY IV 11/19/19 09:00 12/19/19 08:59 11/21/19 09:02 Phenylephrine HCl 50 mg/Dextrose 250 ml @ 0 mls/hr Q24H IV 11/18/19 03:15 12/18/19 03:14 11/18/19 10:46 Vancomycin HCl (Firvanq) 125 mg FOUR TIMES A DAY NG 11/18/19 09:00 11/26/19 23:59 11/21/19 09:02 Vancomycin HCl (Vanco pharmacy to dose) 1 ea DAILY PRN MISC Per rx protocol 11/18/19 09:00 12/11/19 08:59 Shannon Mark M.D. Nov 21, 2019 13:47
[2019-11-21] MEDS ORDERED: D5NS 1000ml IV ONE (16:46)
[2019-11-21] MEDS ORDERED: NS 275ml ONE (16:46)
[2019-11-21] MEDS ORDERED: Tubing IV Blood Pump IV ONE (16:46)
[2019-11-21] MEDS ORDERED: Tubing IV Secondary IV ONE (16:46)
--- NOTE | 2019-11-21 18:57 | Cardiology Progress Note ---
Assessment/Plan Assessment/Plan 1. covid 19 pneumonia 2. History of cerebrovascular accident. 3. History of carotid occlusion. 4. Bilateral infiltrates and pneumonia. 5. Aphasia. 6. Diabetes mellitus. 7. Hyponatremia. 8. Renal insufficiency 9. 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 asystolic arrest probably aspiration with subequent hypoxemia relasted 12. 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 sinus tachy , cxr from 11/19 personally reviewed now on 50% on the vent pressor vent support trop neg neuro poor Subjective ROS Limited/Unobtainable: Yes Subjective not communicative in isoaltion on a vent , nto responsive per rn , toelrting feeds in on pressor but oan lower rate thatn this am , urine out put poor desptie ivf Objective Last 24 Hour Vital Signs Date Time Temp Pulse Resp B/P (MAP) Pulse Ox O2 Delivery O2 Flow Rate FiO2 11/21/19 18:00 106/48 11/21/19 18:00 97.5 77 20 106/48 (67) 100 11/21/19 17:30 74 20 103/46 (65) 100 11/21/19 17:00 100/45 11/21/19 17:00 75 20 100/45 (63) 100 11/21/19 16:00 76 11/21/19 16:00 35 11/21/19 16:00 109/57 11/21/19 16:00 76 20 109/57 (74) 100 11/21/19 16:00 Mechanical Ventilator 11/21/19 15:00 108/50 11/21/19 15:00 75 20 108/50 (69) 100 11/21/19 14:30 72 20 35 11/21/19 14:00 77 20 113/50 (71) 100 11/21/19 14:00 113/50 11/21/19 13:00 85/44 11/21/19 13:00 77 20 85/44 (58) 100 11/21/19 12:00 Mechanical Ventilator 11/21/19 12:00 97.3 75 20 106/44 (64) 100 11/21/19 12:00 106/44 11/21/19 12:00 74 11/21/19 12:00 35 11/21/19 11:45 97.2 74 20 95/46 (62) 100 11/21/19 11:30 97.2 72 20 95/45 (62) 100 11/21/19 11:00 95/44 11/21/19 11:00 71 20 95/44 (61) 100 11/21/19 10:34 70 20 35 11/21/19 10:34 100 11/21/19 10:30 72 20 96/42 (60) 100 11/21/19 10:00 89/42 11/21/19 10:00 96.0 72 20 89/42 (58) 100 11/21/19 09:30 77 21 94/42 (59) 100 11/21/19 09:00 100/45 11/21/19 09:00 76 21 100/45 (63) 100 11/21/19 08:30 78 20 97/40 (59) 100 11/21/19 08:00 Mechanical Ventilator 11/21/19 08:00 35 11/21/19 08:00 73 11/21/19 08:00 99/44 11/21/19 08:00 79 21 99/44 (62) 100 11/21/19 08:00 81 20 35 11/21/19 07:00 76 21 98/42 (60) 100 11/21/19 07:00 98/46 11/21/19 06:00 99/44 11/21/19 06:00 78 23 99/44 (62) 100 11/21/19 05:45 77 22 103/44 (63) 100 11/21/19 05:30 77 22 96/44 (61) 100 11/21/19 05:24 98/46 11/21/19 05:15 78 20 100/44 (62) 100 11/21/19 05:00 76 22 94/44 (61) 98 11/21/19 04:45 77 20 101/46 (64) 99 6/8/20 04:30 78 21 97/41 (59) 99 11/21/19 04:15 79 20 98/46 (63) 99 11/21/19 04:00 75 11/21/19 04:00 35 11/21/19 04:00 98/46 11/21/19 04:00 Mechanical Ventilator 11/21/19 04:00 97.0 79 20 100/45 (63) 99 11/21/19 03:45 79 21 99/42 (61) 98 11/21/19 03:30 80 22 92/44 (60) 98 11/21/19 03:15 80 21 102/43 (62) 98 11/21/19 03:15 80 21 35 11/21/19 03:00 79 20 98/55 (69) 98 11/21/19 03:00 96/50 11/21/19 02:45 79 21 91/52 (65) 98 11/21/19 02:30 78 23 98/49 (65) 100 11/21/19 02:15 77 22 103/60 (74) 96 11/21/19 02:00 76 21 86/39 (55) 98 11/21/19 02:00 79/44 11/21/19 01:45 77 21 102/45 (64) 98 11/21/19 01:30 77 22 104/42 (62) 98 11/21/19 01:23 77 20 104/43 (63) 98 11/21/19 01:15 77 20 79/41 (54) 98 11/21/19 01:15 73 86/41 11/21/19 01:00 86/41 11/21/19 01:00 73 21 86/41 (56) 100 11/21/19 00:30 80 20 89/38 (55) 100 11/21/19 00:00 35 11/21/19 00:00 97.5 78 21 98/42 (60) 100 11/21/19 00:00 86 11/21/19 00:00 Mechanical Ventilator 11/20/19 23:45 80 21 93/45 (61) 100 11/20/19 23:30 79 21 102/46 (64) 100 11/20/19 23:12 90 21 35 11/20/19 23:00 101/50 11/20/19 23:00 78 21 100/51 (67) 99 11/20/19 22:45 80 20 101/47 (65) 100 11/20/19 22:30 78 20 102/48 (66) 100 11/20/19 22:15 79 21 103/49 (67) 100 11/20/19 22:00 81 20 101/50 (67) 100 11/20/19 22:00 100/51 11/20/19 21:45 82 21 99/43 (61) 100 11/20/19 21:40 80 20 105/50 (68) 100 11/20/19 21:30 80 21 102/46 (64) 100 11/20/19 21:30 111/49 11/20/19 21:15 80 20 111/49 (69) 100 11/20/19 21:00 80 21 113/51 (71) 100 11/20/19 21:00 113/51 11/20/19 20:45 81 20 108/49 (68) 100 11/20/19 20:30 81 20 120/51 (74) 100 11/20/19 20:15 81 22 109/45 (66) 100 11/20/19 20:00 35 11/20/19 20:00 100.7 83 20 116/47 (70) 100 11/20/19 20:00 120/51 11/20/19 20:00 80 11/20/19 20:00 Mechanical Ventilator 11/20/19 19:45 83 20 117/47 (70) 100 11/20/19 19:30 84 21 113/47 (69) 100 11/20/19 19:05 89 22 35 11/20/19 19:00 85 20 112/47 (68) 100 11/20/19 19:00 117/47 General Appearance: no apparent distress, on vent, patient on isolation, isolation precautions Intake and Output 11/20/19 11/21/19 19:00 07:00 Intake Total 1784.05 ml 2165.86 ml Output Total 465 ml 120 ml Balance 1319.05 ml 2045.86 ml Free Water 300 ml IV Total 1754.05 ml 1865.86 ml Other 30 ml Output Urine Total 115 ml 120 ml Stool Total 350 ml Laboratory Tests Test 11/21/19 04:00 White Blood Count 25.3 K/UL (4.8-10.8) *H Red Blood Count 2.64 M/UL (4.70-6.10) L Hemoglobin 7.5 G/DL (14.2-18.0) L Hematocrit 21.5 % (42.0-52.0) L Mean Corpuscular Volume 81 FL (80-99) Mean Corpuscular Hemoglobin 28.3 PG (27.0-31.0) Mean Corpuscular Hemoglobin Concent 34.9 G/DL (32.0-36.0) Red Cell Distribution Width 13.0 % (11.6-14.8) Platelet Count 370 K/UL (150-450) Mean Platelet Volume 5.8 FL (6.5-10.1) L Neutrophils (%) (Auto) % (45.0-75.0) Lymphocytes (%) (Auto) % (20.0-45.0) Monocytes (%) (Auto) % (1.0-10.0) Eosinophils (%) (Auto) % (0.0-3.0) Basophils (%) (Auto) % (0.0-2.0) Differential Total Cells Counted 100 Neutrophils % (Manual) 82 % (45-75) H Lymphocytes % (Manual) 6 % (20-45) L Monocytes % (Manual) 5 % (1-10) Eosinophils % (Manual) 0 % (0-3) Basophils % (Manual) 0 % (0-2) Myelocytes % 2 % (0-0) H Band Neutrophils 5 % (0-8) Platelet Estimate Adequate Platelet Morphology Normal Polychromasia 1+ Hypochromasia 1+ Sodium Level 136 MMOL/L (136-145) Potassium Level 4.3 MMOL/L (3.5-5.1) Chloride Level 105 MMOL/L (98-107) Carbon Dioxide Level 17 MMOL/L (21-32) L Anion Gap 14 mmol/L (5-15) Blood Urea Nitrogen 66 mg/dL (7-18) H Creatinine 2.7 MG/DL (0.55-1.30) H Estimat Glomerular Filtration Rate 23.3 mL/min (>60) Glucose Level 122 MG/DL (74-106) H Uric Acid 11.0 MG/DL (2.6-7.2) H Calcium Level 6.2 MG/DL (8.5-10.1) L Phosphorus Level 6.9 MG/DL (2.5-4.9) H Magnesium Level 2.0 MG/DL (1.8-2.4) Total Bilirubin 0.3 MG/DL (0.2-1.0) Aspartate Amino Transf (AST/SGOT) 79 U/L (15-37) H Alanine Aminotransferase (ALT/SGPT) 10 U/L (12-78) L Alkaline Phosphatase 61 U/L (46-116) C-Reactive Protein, Quantitative 11.0 mg/dL (0.00-0.90) H Pro-B-Type Natriuretic Peptide 5614 pg/mL (0-125) H Total Protein 4.4 G/DL (6.4-8.2) L Albumin 1.1 G/DL (3.4-5.0) L Globulin 3.3 g/dL Albumin/Globulin Ratio 0.3 (1.0-2.7) L Random Vancomycin Level 21.5 ug/mL Objective exam not performed as pt with covid per heme Chris Melgar MD Nov 21, 2019 18:57
[2019-11-21] MEDS: Dyna-Hex 2% Top Sol 2oz TOPIC SCH (21:14)
--- NOTE | 2019-11-21 22:41 | General Progress Note ---
Assessment/Plan Problem List: (1) Acute respiratory failure ICD Codes: J96.00 - Acute respiratory failure, unspecified whether with hypoxia or hypercapnia SNOMED: 93700952 (2) Leucocytosis ICD Codes: D72.829 - Elevated white blood cell count, unspecified SNOMED: 628895353, 801415847 (3) Hyperkalemia ICD Codes: E87.5 - Hyperkalemia SNOMED: 34423026 (4) 2019 novel coronavirus disease (COVID-19) ICD Codes: U07.1 - COVID-19 SNOMED: 556315343 (5) Severe malnutrition ICD Codes: E43 - Unspecified severe protein-calorie malnutrition SNOMED: 98674170 (6) Sepsis ICD Codes: A41.9 - Sepsis, unspecified organism SNOMED: 73065388 Qualifiers: Qualified Codes: A41.9 - Sepsis, unspecified organism; R65.20 - Severe sepsis without septic shock; J96.01 - Acute respiratory failure with hypoxia (7) DM (diabetes mellitus) ICD Codes: E11.9 - Type 2 diabetes mellitus without complications SNOMED: 25465485 (8) ARF (acute renal failure) ICD Codes: N17.9 - Acute kidney failure, unspecified SNOMED: 11883744 Qualifiers: Qualified Codes: N17.9 - Acute kidney failure, unspecified (9) Aspiration pneumonia ICD Codes: J69.0 - Pneumonitis due to inhalation of food and vomit SNOMED: 546157739 (10) Hypertension ICD Codes: I10 - Essential (primary) hypertension SNOMED: 48437054 (11) UTI (urinary tract infection) ICD Codes: N39.0 - Urinary tract infection, site not specified SNOMED: 84029514 Qualifiers: Qualified Codes: N30.00 - Acute cystitis without hematuria (12) Anemia ICD Codes: D64.9 - Anemia, unspecified SNOMED: 301415469 Qualifiers: Qualified Codes: D64.9 - Anemia, unspecified (13) Respiratory failure with hypoxia ICD Codes: J96.91 - Respiratory failure, unspecified with hypoxia SNOMED: 15841312476947216 Qualifiers: Qualified Codes: J96.01 - Acute respiratory failure with hypoxia (14) Suspected COVID-19 virus infection ICD Codes: Z20.828 - Contact with and (suspected) exposure to other viral communicable diseases SNOMED: 846928191 Status: stable, unchanged Assessment/Plan: persistent leukocytosis sepsis uti decreasing hb azotemia no bleeding afebrile check h/h Subjective ROS Limited/Unobtainable: Yes Allergies: Coded Allergies: No Known Allergies (Unverified , 09/16/19) Objective Last 24 Hour Vital Signs Date Time Temp Pulse Resp B/P (MAP) Pulse Ox O2 Delivery O2 Flow Rate FiO2 11/21/19 22:15 88 23 97/60 (72) 97 11/21/19 22:00 97/60 11/21/19 22:00 85 21 99/51 (67) 98 11/21/19 21:45 83 21 109/48 (68) 98 11/21/19 21:30 83 21 98/51 (67) 100 11/21/19 21:15 76 21 107/51 (69) 100 11/21/19 21:00 106/40 11/21/19 21:00 74 21 106/40 (62) 100 11/21/19 20:45 79 23 100/46 (64) 100 11/21/19 20:30 75 22 104/47 (66) 100 11/21/19 20:15 75 21 108/43 (64) 100 11/21/19 20:00 74 11/21/19 20:00 Mechanical Ventilator 11/21/19 20:00 35 11/21/19 20:00 96.1 75 21 104/40 (61) 100 11/21/19 20:00 104/40 11/21/19 19:45 77 23 101/47 (65) 100 11/21/19 19:30 75 21 109/42 (64) 100 11/21/19 19:28 77 20 35 11/21/19 19:00 102/45 11/21/19 19:00 74 20 107/42 (63) 100 11/21/19 18:00 106/48 11/21/19 18:00 97.5 77 20 106/48 (67) 100 11/21/19 17:30 74 20 103/46 (65) 100 11/21/19 17:00 100/45 11/21/19 17:00 75 20 100/45 (63) 100 11/21/19 16:00 76 11/21/19 16:00 35 6/8/20 16:00 109/57 11/21/19 16:00 76 20 109/57 (74) 100 11/21/19 16:00 Mechanical Ventilator 11/21/19 15:00 108/50 11/21/19 15:00 75 20 108/50 (69) 100 11/21/19 14:30 72 20 35 11/21/19 14:00 77 20 113/50 (71) 100 11/21/19 14:00 113/50 11/21/19 13:00 85/44 11/21/19 13:00 77 20 85/44 (58) 100 11/21/19 12:00 Mechanical Ventilator 11/21/19 12:00 97.3 75 20 106/44 (64) 100 11/21/19 12:00 106/44 11/21/19 12:00 74 11/21/19 12:00 35 11/21/19 11:45 97.2 74 20 95/46 (62) 100 11/21/19 11:30 97.2 72 20 95/45 (62) 100 11/21/19 11:00 95/44 11/21/19 11:00 71 20 95/44 (61) 100 11/21/19 10:34 70 20 35 11/21/19 10:34 100 11/21/19 10:30 72 20 96/42 (60) 100 11/21/19 10:00 89/42 11/21/19 10:00 96.0 72 20 89/42 (58) 100 11/21/19 09:30 77 21 94/42 (59) 100 11/21/19 09:00 100/45 11/21/19 09:00 76 21 100/45 (63) 100 11/21/19 08:30 78 20 97/40 (59) 100 11/21/19 08:00 Mechanical Ventilator 11/21/19 08:00 35 11/21/19 08:00 73 11/21/19 08:00 99/44 11/21/19 08:00 79 21 99/44 (62) 100 11/21/19 08:00 81 20 35 11/21/19 07:00 76 21 98/42 (60) 100 11/21/19 07:00 98/46 11/21/19 06:00 99/44 11/21/19 06:00 78 23 99/44 (62) 100 11/21/19 05:45 77 22 103/44 (63) 100 11/21/19 05:30 77 22 96/44 (61) 100 11/21/19 05:24 98/46 11/21/19 05:15 78 20 100/44 (62) 100 11/21/19 05:00 76 22 94/44 (61) 98 11/21/19 04:45 77 20 101/46 (64) 99 11/21/19 04:30 78 21 97/41 (59) 99 11/21/19 04:15 79 20 98/46 (63) 99 11/21/19 04:00 75 11/21/19 04:00 35 11/21/19 04:00 98/46 11/21/19 04:00 Mechanical Ventilator 11/21/19 04:00 97.0 79 20 100/45 (63) 99 11/21/19 03:45 79 21 99/42 (61) 98 11/21/19 03:30 80 22 92/44 (60) 98 11/21/19 03:15 80 21 102/43 (62) 98 11/21/19 03:15 80 21 35 11/21/19 03:00 79 20 98/55 (69) 98 11/21/19 03:00 96/50 11/21/19 02:45 79 21 91/52 (65) 98 11/21/19 02:30 78 23 98/49 (65) 100 11/21/19 02:15 77 22 103/60 (74) 96 11/21/19 02:00 76 21 86/39 (55) 98 11/21/19 02:00 79/44 11/21/19 01:45 77 21 102/45 (64) 98 11/21/19 01:30 77 22 104/42 (62) 98 11/21/19 01:23 77 20 104/43 (63) 98 11/21/19 01:15 77 20 79/41 (54) 98 11/21/19 01:15 73 86/41 11/21/19 01:00 86/41 11/21/19 01:00 73 21 86/41 (56) 100 11/21/19 00:30 80 20 89/38 (55) 100 11/21/19 00:00 35 11/21/19 00:00 97.5 78 21 98/42 (60) 100 11/21/19 00:00 86 11/21/19 00:00 Mechanical Ventilator 11/20/19 23:45 80 21 93/45 (61) 100 11/20/19 23:30 79 21 102/46 (64) 100 11/20/19 23:12 90 21 35 11/20/19 23:00 101/50 11/20/19 23:00 78 21 100/51 (67) 99 11/20/19 22:45 80 20 101/47 (65) 100 Intake and Output 11/20/19 11/21/19 19:00 07:00 Intake Total 1784.05 ml 2165.86 ml Output Total 465 ml 120 ml Balance 1319.05 ml 2045.86 ml Free Water 300 ml IV Total 1754.05 ml 1865.86 ml Other 30 ml Output Urine Total 115 ml 120 ml Stool Total 350 ml Laboratory Tests 11/21/19 04:00: White Blood Count 25.3*H, Red Blood Count 2.64L, Hemoglobin 7.5L, Hematocrit 21.5L, Mean Corpuscular Volume 81, Mean Corpuscular Hemoglobin 28.3, Mean Corpuscular Hemoglobin Concent 34.9, Red Cell Distribution Width 13.0, Platelet Count 370, Mean Platelet Volume 5.8L, Neutrophils (%) (Auto) , Lymphocytes (%) ( Auto) , Monocytes (%) (Auto) , Eosinophils (%) (Auto) , Basophils (%) (Auto) , Differential Total Cells Counted 100, Neutrophils % (Manual) 82H, Lymphocytes % (Manual) 6L, Monocytes % (Manual) 5, Eosinophils % (Manual) 0, Basophils % ( Manual) 0, Myelocytes % 2H, Band Neutrophils 5, Platelet Estimate Adequate, Platelet Morphology Normal, Polychromasia 1+, Hypochromasia 1+, Sodium Level 136 , Potassium Level 4.3, Chloride Level 105, Carbon Dioxide Level 17L, Anion Gap 14, Blood Urea Nitrogen 66H, Creatinine 2.7H, Estimat Glomerular Filtration Rate 23.3, Glucose Level 122H, Uric Acid 11.0H, Calcium Level 6.2L, Phosphorus Level 6.9H, Magnesium Level 2.0, Total Bilirubin 0.3, Aspartate Amino Transf ( AST/SGOT) 79H, Alanine Aminotransferase (ALT/SGPT) 10L, Alkaline Phosphatase 61 , C-Reactive Protein, Quantitative 11.0H, Pro-B-Type Natriuretic Peptide 5614H, Total Protein 4.4L, Albumin 1.1L, Globulin 3.3, Albumin/Globulin Ratio 0.3L, Random Vancomycin Level 21.5 Height (Feet): 6 Height (Inches): 0.00 Weight (Pounds): 195 Singh Rubalcava MD Nov 21, 2019 22:41
[2019-11-22] VITALS (44 sets, daily range): BP systolic 84–110; BP diastolic 39–60
[2019-11-22] MEDS: D5NS 1,000 ML IV SCH ×2 (02:30→10:09)
[2019-11-22] MEDS: Phenylephrine 50 MG in D5W 245 ML IV SCH (02:55)
[2019-11-22 04:51] LABS: HEMATOCRIT 27.1 % (42.0-52.0); HEMOGLOBIN 9.5 G/DL (14.2-18.0); MEAN CORPUSCULAR VOLUME 81 FL (80-99); PLATELET COUNT 345 K/UL (150-450); RED BLOOD COUNT 3.34 M/UL (4.70-6.10); RED CELL DISTRIBUTION WIDTH 13.5 % (11.6-14.8); WHITE BLOOD COUNT 20.7 K/UL (4.8-10.8)
[2019-11-22 05:19] LABS: ALANINE AMINOTRANSFERASE 17 U/L (12-78); ALBUMIN/GLOBULIN RATIO 0.3 (1.0-2.7); ALKALINE PHOSPHATASE 77 U/L (46-116); ANION GAP 15 mmol/L (5-15); ASPARTATE AMINO TRANSFERASE 87 U/L (15-37); BILIRUBIN,TOTAL 0.3 MG/DL (0.2-1.0); BLOOD UREA NITROGEN 66 mg/dL (7-18); CARBON DIOXIDE 15 MMOL/L (21-32); CHLORIDE 104 MMOL/L (98-107); CREATININE 3.1 MG/DL (0.55-1.30); POTASSIUM 4.3 MMOL/L (3.5-5.1); SODIUM 134 MMOL/L (136-145)
[2019-11-22 05:22] LABS: CALCIUM 5.9 MG/DL (8.5-10.1)
[2019-11-22 05:43] LABS: PHOSPHORUS 7.2 MG/DL (2.5-4.9)
--- NOTE | 2019-11-22 06:49 | Hematology/Onc Progress Note ---
Assessment/Plan Assessment/Plan Assessment and Recs # Leukocytosis/elevated white blood cell count, unspecified likely related to underlying stress reaction, smoking v more likely infection, in this case with pna and COVID19++++++++ --> have reviewed peripheral smear and bandemia/neutrophilia noted --> continue antibiotics if they have been started by ID team --> monitor for resolution --> wbc 35k-->31.2-->25-->27.4 -->25-->20.7 --> abx/antivral: remdesivir/vanc/cefepime-->vanc/flagyl/monique # Thrombocytosis - if plt count >400k, most usually is a reactive process and will improve once exacerbant removed as well --> in this case due to underlying infection --> plt trend 646k-->672 -->547-->372-->345 # Anemia of chronic disease due to underlying chronic medical issues, multifactorial v Gi bleed --> Anemia workup has been ordered, rule out gi bleed -> ferritin 1339 --> No evidence of hemolysis is noted, peripheral smear has been reviewed. --> Hgb goal >7. Transfuse prn. --> Epogen or iron at this time is not particularly indicated --> Medications have been reviewed --> low threshold for gi evaluation in case has occult + --> bone marrow biopsy is not indicated given the other more likely causes --> hgb 9.5-->9.8->8.8-->8.6-->7.5-->9.5 --> 1 unit prbc 11/20 --> ddimer remains elevated currently # Acute hypoxic resp failure- on NRB 15L- 2ry to COVID19 --> per id and pulm recs --> breathing treatments and rep cxr --> 11/15 cxr: New/increased infiltrates at the left lateral lung base # UTI c/w bacteremia --> abx per id # Cdiff colitis # MONICA, improving # Deep tissue injury (sacrum, L heel) # HTN # Dm2 # MDD # Dysphagia s/p GT # malnutrition # decubitus ulcer # non verbal # 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 Greatly appreciate consultation. Subjective Allergies: Coded Allergies: No Known Allergies (Unverified , 09/16/19) Subjective 11/15 tele, no acute events, cxr and labs reviewed, nrb 15l, remdesivir 11/16 remains on iso, breathing is improved, no night sweats 11/17 remains with fever, cooling blankets, labs noted, no bleed hgb 8.8 11/19 icu, no acute events, vent, levo gtt, meds and labs reviewed 11/20 labs noted, no bleeding, in icu, hgb 7.5, to get one unit prbc, wbc elev 25 11/21 non verbal, s/p blood, hgb improved to 9.5, vent, iv abx Objective Objective Current Medications Medications (Trade) Dose Ordered Sig/Leonor Route PRN Reason Start Time Stop Time Status Last Admin Dose Admin Acetaminophen (Tylenol) 650 mg Q4H PRN GT fever 11/18/19 03:00 12/11/19 02:59 11/19/19 20:04 Allopurinol (allopurinoL) 300 mg DAILY GT 11/21/19 09:00 12/21/19 08:59 11/21/19 09:10 Chlorhexidine Gluconate (Danielle-Hex 2%) 1 applic DAILY@2000 TOPIC 11/18/19 20:00 02/16/20 19:59 11/21/19 21:14 Dextrose/Sodium Chloride 1,000 ml @ 100 mls/hr Q10H IV 11/20/19 10:15 12/20/19 10:14 11/22/19 02:30 Heparin Sodium (Porcine) (Heparin 5000 units/ml) 5,000 units EVERY 12 HOURS SUBQ 11/18/19 09:00 12/26/19 08:59 11/21/19 21:14 Lorazepam (Ativan 2mg/ml 1ml) 2 mg Q4H PRN IV For Anxiety 11/18/19 12:10 11/25/19 12:09 11/20/19 03:50 Meropenem 500 mg/ Sodium Chloride 55 ml @ 110 mls/hr Q12HR IV 11/20/19 21:00 11/25/19 20:59 11/21/19 21:13 Metronidazole 100 ml @ 100 mls/hr Q8HR IVPB 11/18/19 06:00 11/24/19 23:59 11/22/19 06:13 Morphine Sulfate (Morphine Sulfate) 4 mg Q4H PRN IVP For Pain 11/18/19 12:10 11/25/19 12:09 Norepinephrine Bitartrate 8 mg/ Dextrose 558 ml @ 0 mls/hr Q24H IV 11/18/19 10:00 12/18/19 09:59 11/21/19 05:24 Ondansetron HCl (Zofran) 4 mg Q6H PRN IVP Nausea & Vomiting 11/18/19 03:00 12/11/19 08:59 Pantoprazole (Protonix) 40 mg DAILY IV 11/19/19 09:00 12/19/19 08:59 11/21/19 09:02 Phenylephrine HCl 50 mg/Dextrose 250 ml @ 0 mls/hr Q24H IV 11/18/19 03:15 12/18/19 03:14 11/18/19 10:46 Vancomycin HCl (Firvanq) 125 mg FOUR TIMES A DAY NG 11/18/19 09:00 11/26/19 23:59 11/21/19 21:13 Vancomycin HCl (Vanco pharmacy to dose) 1 ea DAILY PRN MISC Per rx protocol 11/18/19 09:00 12/11/19 08:59 Last 24 Hour Vital Signs Date Time Temp Pulse Resp B/P (MAP) Pulse Ox O2 Delivery O2 Flow Rate FiO2 11/22/19 06:00 97/51 11/22/19 06:00 86 20 97/51 (66) 100 11/22/19 05:30 88 21 98/54 (69) 100 11/22/19 05:00 94/54 11/22/19 05:00 87 21 94/54 (67) 100 11/22/19 04:30 87 21 99/52 (68) 100 11/22/19 04:00 Mechanical Ventilator 11/22/19 04:00 93/48 11/22/19 04:00 97.4 85 21 97/50 (66) 100 11/22/19 04:00 35 11/22/19 04:00 86 11/22/19 03:52 83 21 35 11/22/19 03:30 89 23 98/54 (69) 100 11/22/19 03:00 86 21 98/51 (67) 100 11/22/19 03:00 91/46 11/22/19 02:55 87 103/53 11/22/19 02:30 86 22 99/52 (68) 100 11/22/19 02:00 89 20 97/51 (66) 100 11/22/19 02:00 99/49 11/22/19 01:30 86 20 100/54 (69) 100 11/22/19 01:00 87 19 103/53 (70) 100 11/22/19 01:00 103/53 11/22/19 00:30 85 20 97/55 (69) 100 11/22/19 00:15 89 21 110/60 (77) 100 11/22/19 00:00 97.1 84 20 107/59 (75) 100 11/22/19 00:00 107/59 11/22/19 00:00 Mechanical Ventilator 11/22/19 00:00 35 11/22/19 00:00 84 11/21/19 23:45 85 20 104/58 (73) 100 11/21/19 23:30 86 22 110/57 (74) 100 11/21/19 23:20 88 20 35 11/21/19 23:15 87 23 105/55 (72) 98 11/21/19 23:00 84 21 103/53 (70) 99 11/21/19 23:00 105/55 11/21/19 22:45 86 20 104/56 (72) 99 11/21/19 22:30 87 20 107/53 (71) 98 11/21/19 22:15 88 23 97/60 (72) 97 11/21/19 22:00 97/60 11/21/19 22:00 85 21 99/51 (67) 98 11/21/19 21:45 83 21 109/48 (68) 98 11/21/19 21:30 83 21 98/51 (67) 100 11/21/19 21:15 76 21 107/51 (69) 100 11/21/19 21:00 106/40 11/21/19 21:00 74 21 106/40 (62) 100 11/21/19 20:45 79 23 100/46 (64) 100 11/21/19 20:30 75 22 104/47 (66) 100 11/21/19 20:15 75 21 108/43 (64) 100 11/21/19 20:00 74 11/21/19 20:00 Mechanical Ventilator 11/21/19 20:00 35 11/21/19 20:00 96.1 75 21 104/40 (61) 100 11/21/19 20:00 104/40 11/21/19 19:45 77 23 101/47 (65) 100 11/21/19 19:30 75 21 109/42 (64) 100 11/21/19 19:28 77 20 35 11/21/19 19:00 102/45 11/21/19 19:00 74 20 107/42 (63) 100 11/21/19 18:00 106/48 11/21/19 18:00 97.5 77 20 106/48 (67) 100 11/21/19 17:30 74 20 103/46 (65) 100 11/21/19 17:00 100/45 11/21/19 17:00 75 20 100/45 (63) 100 11/21/19 16:00 76 11/21/19 16:00 35 11/21/19 16:00 109/57 11/21/19 16:00 76 20 109/57 (74) 100 11/21/19 16:00 Mechanical Ventilator 11/21/19 15:00 108/50 11/21/19 15:00 75 20 108/50 (69) 100 11/21/19 14:30 72 20 35 11/21/19 14:00 77 20 113/50 (71) 100 11/21/19 14:00 113/50 11/21/19 13:00 85/44 11/21/19 13:00 77 20 85/44 (58) 100 11/21/19 12:00 Mechanical Ventilator 11/21/19 12:00 97.3 75 20 106/44 (64) 100 11/21/19 12:00 106/44 11/21/19 12:00 74 11/21/19 12:00 35 11/21/19 11:45 97.2 74 20 95/46 (62) 100 11/21/19 11:30 97.2 72 20 95/45 (62) 100 11/21/19 11:00 95/44 11/21/19 11:00 71 20 95/44 (61) 100 11/21/19 10:34 70 20 35 11/21/19 10:34 100 11/21/19 10:30 72 20 96/42 (60) 100 11/21/19 10:00 89/42 11/21/19 10:00 96.0 72 20 89/42 (58) 100 11/21/19 09:30 77 21 94/42 (59) 100 11/21/19 09:00 100/45 11/21/19 09:00 76 21 100/45 (63) 100 11/21/19 08:30 78 20 97/40 (59) 100 11/21/19 08:00 Mechanical Ventilator 11/21/19 08:00 35 11/21/19 08:00 73 11/21/19 08:00 99/44 11/21/19 08:00 79 21 99/44 (62) 100 11/21/19 08:00 81 20 35 11/21/19 07:00 76 21 98/42 (60) 100 11/21/19 07:00 98/46 11/21/19 06:00 99/44 11/21/19 06:00 78 23 99/44 (62) 100 11/21/19 05:45 77 22 103/44 (63) 100 11/21/19 05:30 77 22 96/44 (61) 100 11/21/19 05:24 98/46 11/21/19 05:15 78 20 100/44 (62) 100 11/21/19 05:00 76 22 94/44 (61) 98 11/21/19 04:45 77 20 101/46 (64) 99 11/21/19 04:30 78 21 97/41 (59) 99 11/21/19 04:15 79 20 98/46 (63) 99 11/21/19 04:00 75 11/21/19 04:00 35 11/21/19 04:00 98/46 11/21/19 04:00 Mechanical Ventilator 11/21/19 04:00 97.0 79 20 100/45 (63) 99 11/21/19 03:45 79 21 99/42 (61) 98 11/21/19 03:30 80 22 92/44 (60) 98 11/21/19 03:15 80 21 102/43 (62) 98 11/21/19 03:15 80 21 35 11/21/19 03:00 79 20 98/55 (69) 98 11/21/19 03:00 96/50 11/21/19 02:45 79 21 91/52 (65) 98 11/21/19 02:30 78 23 98/49 (65) 100 11/21/19 02:15 77 22 103/60 (74) 96 11/21/19 02:00 76 21 86/39 (55) 98 11/21/19 02:00 79/44 11/21/19 01:45 77 21 102/45 (64) 98 11/21/19 01:30 77 22 104/42 (62) 98 11/21/19 01:23 77 20 104/43 (63) 98 11/21/19 01:15 77 20 79/41 (54) 98 11/21/19 01:15 73 86/41 11/21/19 01:00 86/41 11/21/19 01:00 73 21 86/41 (56) 100 11/21/19 00:30 80 20 89/38 (55) 100 11/21/19 00:00 35 11/21/19 00:00 97.5 78 21 98/42 (60) 100 11/21/19 00:00 86 11/21/19 00:00 Mechanical Ventilator 11/20/19 23:45 80 21 93/45 (61) 100 11/20/19 23:30 79 21 102/46 (64) 100 11/20/19 23:12 90 21 35 11/20/19 23:00 101/50 11/20/19 23:00 78 21 100/51 (67) 99 11/20/19 22:45 80 20 101/47 (65) 100 11/20/19 22:30 78 20 102/48 (66) 100 11/20/19 22:15 79 21 103/49 (67) 100 11/20/19 22:00 81 20 101/50 (67) 100 11/20/19 22:00 100/51 11/20/19 21:45 82 21 99/43 (61) 100 11/20/19 21:40 80 20 105/50 (68) 100 11/20/19 21:30 80 21 102/46 (64) 100 11/20/19 21:30 111/49 11/20/19 21:15 80 20 111/49 (69) 100 11/20/19 21:00 80 21 113/51 (71) 100 11/20/19 21:00 113/51 11/20/19 20:45 81 20 108/49 (68) 100 11/20/19 20:30 81 20 120/51 (74) 100 11/20/19 20:15 81 22 109/45 (66) 100 11/20/19 20:00 35 11/20/19 20:00 100.7 83 20 116/47 (70) 100 11/20/19 20:00 120/51 11/20/19 20:00 80 11/20/19 20:00 Mechanical Ventilator 11/20/19 19:45 83 20 117/47 (70) 100 11/20/19 19:30 84 21 113/47 (69) 100 11/20/19 19:05 89 22 35 11/20/19 19:00 85 20 112/47 (68) 100 11/20/19 19:00 117/47 11/20/19 18:00 127/45 11/20/19 17:45 90 20 117/47 (70) 98 11/20/19 17:30 90 20 117/47 (70) 98 11/20/19 17:30 91 20 129/51 (77) 98 11/20/19 17:15 89 20 83/40 (54) 98 11/20/19 17:00 89 20 129/51 (77) 98 11/20/19 17:00 89 20 111/49 (69) 98 11/20/19 17:00 83/40 11/20/19 16:30 90 20 110/50 (70) 98 11/20/19 16:20 89 11/20/19 16:00 97.3 89 20 109/47 (67) 99 11/20/19 16:00 100/48 11/20/19 16:00 35 11/20/19 15:15 89 20 108/49 (68) 99 11/20/19 15:01 91 22 35 11/20/19 15:00 88 20 107/52 (70) 99 11/20/19 15:00 108/49 11/20/19 14:15 90 20 109/53 (71) 99 11/20/19 14:00 109/53 11/20/19 14:00 86 20 111/54 (73) 99 11/20/19 13:15 87 20 106/48 (67) 99 11/20/19 13:00 88 20 108/57 (74) 99 11/20/19 13:00 106/48 11/20/19 12:00 35 11/20/19 12:00 114/53 11/20/19 12:00 96.4 88 20 114/53 (73) 100 11/20/19 12:00 91 11/20/19 11:45 88 20 105/52 (69) 100 11/20/19 11:31 87 20 92/43 (59) 99 11/20/19 11:30 84 20 99 11/20/19 11:15 86 21 91/39 (56) 100 11/20/19 11:14 83 20 35 11/20/19 11:00 86 21 85/39 (54) 100 11/20/19 11:00 85/39 11/20/19 10:53 101/50 11/20/19 10:30 85 21 97/51 (66) 100 11/20/19 10:15 86 21 93/51 (65) 100 11/20/19 10:00 90 19 98/50 (66) 100 11/20/19 10:00 98/50 11/20/19 09:54 86 20 107/52 (70) 100 11/20/19 09:47 86 21 84/50 (61) 100 11/20/19 09:45 86 20 100 11/20/19 09:30 84 20 90/39 (56) 100 11/20/19 09:15 84 20 83/42 (56) 100 11/20/19 09:00 84/37 11/20/19 09:00 95.3 86 20 84/37 (53) 100 11/20/19 08:00 86 11/20/19 08:00 93/43 11/20/19 08:00 86 20 93/43 (60) 100 11/20/19 08:00 35 11/20/19 07:12 84 21 35 11/20/19 07:00 91/52 11/20/19 07:00 86 20 91/45 (60) 100 Intake and Output 11/21/19 11/22/19 19:00 07:00 Intake Total 1658.17 ml 1309.59 ml Output Total 255 ml 30 ml Balance 1403.17 ml 1279.59 ml Free Water 60 ml IV Total 1598.17 ml 1309.59 ml Output Urine Total 55 ml 30 ml Stool Total 200 ml Labs Test 11/19/19 08:29 11/19/19 15:10 11/20/19 04:00 11/20/19 08:01 Arterial Blood pH 7.334 (7.350-7.450) 7.295 (7.350-7.450) Arterial Blood Partial Pressure CO2 30.9 mmHg (35.0-45.0) 31.8 mmHg (35.0-45.0) Arterial Blood Partial Pressure O2 314.4 mmHg (75.0-100.0) 251.6 mmHg (75.0-100.0) Arterial Blood HCO3 16.1 mmol/L (22.0-26.0) 15.1 mmol/L (22.0-26.0) Arterial Blood Oxygen Saturation 98.9 % (95-100) 99.2 % (95-100) Arterial Blood Base Excess -8.8 (-2-2) -10.4 (-2-2) Michael Test Positive Positive Lactic Acid Level 2.40 mmol/L (0.4-2.0) White Blood Count 27.4 K/UL (4.8-10.8) Red Blood Count 3.02 M/UL (4.70-6.10) Hemoglobin 8.6 G/DL (14.2-18.0) Hematocrit 25.0 % (42.0-52.0) Mean Corpuscular Volume 83 FL (80-99) Mean Corpuscular Hemoglobin 28.4 PG (27.0-31.0) Mean Corpuscular Hemoglobin Concent 34.3 G/DL (32.0-36.0) Red Cell Distribution Width 13.8 % (11.6-14.8) Platelet Count 372 K/UL (150-450) Mean Platelet Volume 5.9 FL (6.5-10.1) Neutrophils (%) (Auto) % (45.0-75.0) Lymphocytes (%) (Auto) % (20.0-45.0) Monocytes (%) (Auto) % (1.0-10.0) Eosinophils (%) (Auto) % (0.0-3.0) Basophils (%) (Auto) % (0.0-2.0) Differential Total Cells Counted 100 Neutrophils % (Manual) 88 % (45-75) Lymphocytes % (Manual) 4 % (20-45) Monocytes % (Manual) 8 % (1-10) Eosinophils % (Manual) 0 % (0-3) Basophils % (Manual) 0 % (0-2) Band Neutrophils 0 % (0-8) Platelet Estimate Adequate Platelet Morphology Normal Hypochromasia 1+ Sodium Level 135 MMOL/L (136-145) Potassium Level 5.0 MMOL/L (3.5-5.1) Chloride Level 104 MMOL/L (98-107) Carbon Dioxide Level 17 MMOL/L (21-32) Anion Gap 14 mmol/L (5-15) Blood Urea Nitrogen 63 mg/dL (7-18) Creatinine 2.5 MG/DL (0.55-1.30) Estimat Glomerular Filtration Rate 25.5 mL/min (>60) Glucose Level 90 MG/DL (74-106) Calcium Level 6.1 MG/DL (8.5-10.1) Phosphorus Level 5.9 MG/DL (2.5-4.9) Magnesium Level 2.0 MG/DL (1.8-2.4) Total Bilirubin 0.2 MG/DL (0.2-1.0) Aspartate Amino Transf (AST/SGOT) 75 U/L (15-37) Alanine Aminotransferase (ALT/SGPT) 15 U/L (12-78) Alkaline Phosphatase 72 U/L (46-116) Total Protein 4.4 G/DL (6.4-8.2) Albumin 0.8 G/DL (3.4-5.0) Globulin 3.6 g/dL Albumin/Globulin Ratio 0.2 (1.0-2.7) Random Vancomycin Level 22.6 ug/mL Test 11/21/19 04:00 11/22/19 04:00 White Blood Count 25.3 K/UL (4.8-10.8) 20.7 K/UL (4.8-10.8) Red Blood Count 2.64 M/UL (4.70-6.10) 3.34 M/UL (4.70-6.10) Hemoglobin 7.5 G/DL (14.2-18.0) 9.5 G/DL (14.2-18.0) Hematocrit 21.5 % (42.0-52.0) 27.1 % (42.0-52.0) Mean Corpuscular Volume 81 FL (80-99) 81 FL (80-99) Mean Corpuscular Hemoglobin 28.3 PG (27.0-31.0) 28.4 PG (27.0-31.0) Mean Corpuscular Hemoglobin Concent 34.9 G/DL (32.0-36.0) 35.0 G/DL (32.0-36.0) Red Cell Distribution Width 13.0 % (11.6-14.8) 13.5 % (11.6-14.8) Platelet Count 370 K/UL (150-450) 345 K/UL (150-450) Mean Platelet Volume 5.8 FL (6.5-10.1) 5.7 FL (6.5-10.1) Neutrophils (%) (Auto) % (45.0-75.0) % (45.0-75.0) Lymphocytes (%) (Auto) % (20.0-45.0) % (20.0-45.0) Monocytes (%) (Auto) % (1.0-10.0) % (1.0-10.0) Eosinophils (%) (Auto) % (0.0-3.0) % (0.0-3.0) Basophils (%) (Auto) % (0.0-2.0) % (0.0-2.0) Differential Total Cells Counted 100 Neutrophils % (Manual) 82 % (45-75) Lymphocytes % (Manual) 6 % (20-45) Monocytes % (Manual) 5 % (1-10) Eosinophils % (Manual) 0 % (0-3) Basophils % (Manual) 0 % (0-2) Myelocytes % 2 % (0-0) Band Neutrophils 5 % (0-8) Platelet Estimate Adequate Platelet Morphology Normal Polychromasia 1+ Hypochromasia 1+ Sodium Level 136 MMOL/L (136-145) 134 MMOL/L (136-145) Potassium Level 4.3 MMOL/L (3.5-5.1) 4.3 MMOL/L (3.5-5.1) Chloride Level 105 MMOL/L (98-107) 104 MMOL/L (98-107) Carbon Dioxide Level 17 MMOL/L (21-32) 15 MMOL/L (21-32) Anion Gap 14 mmol/L (5-15) 15 mmol/L (5-15) Blood Urea Nitrogen 66 mg/dL (7-18) 66 mg/dL (7-18) Creatinine 2.7 MG/DL (0.55-1.30) 3.1 MG/DL (0.55-1.30) Estimat Glomerular Filtration Rate 23.3 mL/min (>60) 19.9 mL/min (>60) Glucose Level 122 MG/DL (74-106) 98 MG/DL (74-106) Uric Acid 11.0 MG/DL (2.6-7.2) 10.8 MG/DL (2.6-7.2) Calcium Level 6.2 MG/DL (8.5-10.1) 5.9 MG/DL (8.5-10.1) Phosphorus Level 6.9 MG/DL (2.5-4.9) 7.2 MG/DL (2.5-4.9) Magnesium Level 2.0 MG/DL (1.8-2.4) 1.9 MG/DL (1.8-2.4) Total Bilirubin 0.3 MG/DL (0.2-1.0) 0.3 MG/DL (0.2-1.0) Aspartate Amino Transf (AST/SGOT) 79 U/L (15-37) 87 U/L (15-37) Alanine Aminotransferase (ALT/SGPT) 10 U/L (12-78) 17 U/L (12-78) Alkaline Phosphatase 61 U/L (46-116) 77 U/L (46-116) C-Reactive Protein, Quantitative 11.0 mg/dL (0.00-0.90) Pro-B-Type Natriuretic Peptide 5614 pg/mL (0-125) Total Protein 4.4 G/DL (6.4-8.2) 4.7 G/DL (6.4-8.2) Albumin 1.1 G/DL (3.4-5.0) 1.0 G/DL (3.4-5.0) Globulin 3.3 g/dL 3.7 g/dL Albumin/Globulin Ratio 0.3 (1.0-2.7) 0.3 (1.0-2.7) Random Vancomycin Level 21.5 ug/mL 22.3 ug/mL Height (Feet): 6 Height (Inches): 0.00 Weight (Pounds): 195 Objective PE General: alert, chronically Ill Heent: nc, at Neck: full range of motion, supple, no meningismus Respiratory: chest non-tender, decreased breath sounds, crackles, vent++ Cardiovascular: no murmur, tachycardia Gastrointestinal: normal bowel sounds, non tender,+peg Musculoskeletal: back normal, normal range of motion, gait/station normal Neurologic: no pronator Deng Flowers MD Nov 22, 2019 06:49
[2019-11-22] MEDS: Renvela 800mg Pkt NG SCH ×4 (08:04→20:01)
[2019-11-22] MEDS: Calcium Gluconate 10% 1 GM in NS 110 ML IVPB SCH ×2 (08:05→19:59)
[2019-11-22] MEDS: Pantoprazole Inj IV SCH (08:05)
[2019-11-22] MEDS: Vancomycin oral 125mg/2.5ml NG SCH ×4 (08:06→19:58)
[2019-11-22] MEDS: Heparin 5000 units/ml inj SUBQ SCH ×2 (08:06→20:01)
[2019-11-22] MEDS: Meropenem 500 MG in NS 55 ML IV SCH ×2 (08:17→19:59)
[2019-11-22] MEDS: Norepinephrine Bitartrate 8 MG in D5W 500ml 550 ML IV SCH ×2 (10:00→18:16)
--- NOTE | 2019-11-22 10:31 | Nephrology Progress Note ---
Assessment/Plan Problem List: (1) ARF (acute renal failure) (2) Hyperkalemia (3) DM (diabetes mellitus) (4) Suspected COVID-19 virus infection (5) Sepsis (6) Severe malnutrition Assessment: Severe hypoalbuminemia Assessment his 74-year-old male with multiple Multiple medical problem presents with respiratory symptoms and diarrhea Renal failure most likely prerenal azotemia secondary to dehydration Hyperkalemia on presentation also secondary to dehydration Sepsis pneumonia hypoxia UTI Anemia History of hypertension History of diabetes mellitus Suspected COVID-19 virus infection Hypoalbuminemia Plan C. difficile positive COVID-19 detected November 21: Patient continues to do poorly. Discussed with RN. Started on Midodrin for BP support. Nephro feeding started. Phosphorus binders started. IV calcium ordered. Continue to monitor renal parameters and urine output. Continue per consultants. Patient remains full code. Per orders. November 20: Serum creatinine continuing to rise. Remains of 100 cc an hour IV fluid. Urine output remains low. Blood pressure also borderline low, on pressors. Continue per consultants. Continue to monitor renal parameters and urine output. Continue to avoid nephrotoxic's. Further deterioration of renal function may lead to dialysis treatment. Will discuss with PMD. November 19: Serum creatinine rising. Urine output decreasing. Will change to IV, D5 normal saline. Will give albumin bolus followed by Lasix 40 mg IV push. Continue to monitor renal parameters and urine output. Continue to avoid nephrotoxic medications as possible. Today's vancomycin level was 22. November 18: Serum creatinine rising. Continues to be full code. Continues to be intubated on ventilator. Remains on IV fluids. Vancomycin levels per pharmacy. Prognosis poor due to sepsis. November 17: Intubated on ventilator in ICU. Will continue half-normal saline 100 cc an hour. Continue per pulmonary and ID. Prognosis poor. Continue to monitor renal parameters. Hydrate with half-normal saline, serum creatinine now at its lowest today. monitor electrolytes Will change the feeding to Nepro and monitor her potassium and other electrolytes Continue per ID Keep the blood pressure and blood sugar in check Monitor renal parameters Previously: Urine studies Monitor intake and output Cultures including stool for C. difficile Per orders Patient's CODE STATUS is full Subjective ROS Limited/Unobtainable: Yes Objective Objective Last 24 Hour Vital Signs Date Time Temp Pulse Resp B/P (MAP) Pulse Ox O2 Delivery O2 Flow Rate FiO2 11/22/19 10:00 85 21 96/51 (66) 100 11/22/19 10:00 96/51 11/22/19 10:00 100/51 11/22/19 09:30 88 21 100/51 (67) 100 11/22/19 09:00 84 21 101/53 (69) 100 11/22/19 09:00 101/53 11/22/19 08:30 83 24 94/48 (63) 100 11/22/19 08:05 100 11/22/19 08:00 35 11/22/19 08:00 104/54 11/22/19 08:00 Mechanical Ventilator 11/22/19 08:00 99.1 91 20 104/54 (71) 100 11/22/19 07:16 88 24 35 11/22/19 07:00 88 21 97/53 (68) 100 11/22/19 07:00 97/53 11/22/19 06:30 87 21 96/51 (66) 100 11/22/19 06:00 97/51 11/22/19 06:00 86 20 97/51 (66) 100 11/22/19 05:30 88 21 98/54 (69) 100 11/22/19 05:00 94/54 11/22/19 05:00 87 21 94/54 (67) 100 11/22/19 04:30 87 21 99/52 (68) 100 11/22/19 04:00 Mechanical Ventilator 11/22/19 04:00 93/48 11/22/19 04:00 97.4 85 21 97/50 (66) 100 11/22/19 04:00 35 11/22/19 04:00 86 11/22/19 03:52 83 21 35 11/22/19 03:30 89 23 98/54 (69) 100 11/22/19 03:00 86 21 98/51 (67) 100 11/22/19 03:00 91/46 11/22/19 02:55 87 103/53 11/22/19 02:30 86 22 99/52 (68) 100 11/22/19 02:00 89 20 97/51 (66) 100 11/22/19 02:00 99/49 11/22/19 01:30 86 20 100/54 (69) 100 11/22/19 01:00 87 19 103/53 (70) 100 11/22/19 01:00 103/53 11/22/19 00:30 85 20 97/55 (69) 100 11/22/19 00:15 89 21 110/60 (77) 100 11/22/19 00:00 97.1 84 20 107/59 (75) 100 11/22/19 00:00 107/59 11/22/19 00:00 Mechanical Ventilator 11/22/19 00:00 35 11/22/19 00:00 84 11/21/19 23:45 85 20 104/58 (73) 100 11/21/19 23:30 86 22 110/57 (74) 100 11/21/19 23:20 88 20 35 11/21/19 23:15 87 23 105/55 (72) 98 11/21/19 23:00 84 21 103/53 (70) 99 11/21/19 23:00 105/55 11/21/19 22:45 86 20 104/56 (72) 99 11/21/19 22:30 87 20 107/53 (71) 98 11/21/19 22:15 88 23 97/60 (72) 97 11/21/19 22:00 97/60 11/21/19 22:00 85 21 99/51 (67) 98 11/21/19 21:45 83 21 109/48 (68) 98 11/21/19 21:30 83 21 98/51 (67) 100 11/21/19 21:15 76 21 107/51 (69) 100 11/21/19 21:00 106/40 11/21/19 21:00 74 21 106/40 (62) 100 11/21/19 20:45 79 23 100/46 (64) 100 11/21/19 20:30 75 22 104/47 (66) 100 11/21/19 20:15 75 21 108/43 (64) 100 11/21/19 20:00 74 11/21/19 20:00 Mechanical Ventilator 11/21/19 20:00 35 11/21/19 20:00 96.1 75 21 104/40 (61) 100 11/21/19 20:00 104/40 11/21/19 19:45 77 23 101/47 (65) 100 11/21/19 19:30 75 21 109/42 (64) 100 11/21/19 19:28 77 20 35 11/21/19 19:00 102/45 11/21/19 19:00 74 20 107/42 (63) 100 11/21/19 18:00 106/48 11/21/19 18:00 97.5 77 20 106/48 (67) 100 11/21/19 17:30 74 20 103/46 (65) 100 11/21/19 17:00 100/45 11/21/19 17:00 75 20 100/45 (63) 100 11/21/19 16:00 76 11/21/19 16:00 35 11/21/19 16:00 109/57 11/21/19 16:00 76 20 109/57 (74) 100 11/21/19 16:00 Mechanical Ventilator 11/21/19 15:00 108/50 11/21/19 15:00 75 20 108/50 (69) 100 11/21/19 14:30 72 20 35 11/21/19 14:00 77 20 113/50 (71) 100 11/21/19 14:00 113/50 11/21/19 13:00 85/44 11/21/19 13:00 77 20 85/44 (58) 100 11/21/19 12:00 Mechanical Ventilator 11/21/19 12:00 97.3 75 20 106/44 (64) 100 11/21/19 12:00 106/44 11/21/19 12:00 74 11/21/19 12:00 35 11/21/19 11:45 97.2 74 20 95/46 (62) 100 11/21/19 11:30 97.2 72 20 95/45 (62) 100 11/21/19 11:00 95/44 11/21/19 11:00 71 20 95/44 (61) 100 11/21/19 10:34 70 20 35 11/21/19 10:34 100 11/21/19 10:30 72 20 96/42 (60) 100 Intake and Output 11/21/19 11/22/19 19:00 07:00 Intake Total 1658.17 ml 1515.86 ml Output Total 255 ml 30 ml Balance 1403.17 ml 1485.86 ml Free Water 60 ml IV Total 1598.17 ml 1515.86 ml Output Urine Total 55 ml 30 ml Stool Total 200 ml Laboratory Tests 11/22/19 04:00: White Blood Count 20.7H, Red Blood Count 3.34L, Hemoglobin 9.5L, Hematocrit 27.1L, Mean Corpuscular Volume 81, Mean Corpuscular Hemoglobin 28.4, Mean Corpuscular Hemoglobin Concent 35.0, Red Cell Distribution Width 13.5, Platelet Count 345, Mean Platelet Volume 5.7L, Neutrophils (%) (Auto) , Lymphocytes (%) ( Auto) , Monocytes (%) (Auto) , Eosinophils (%) (Auto) , Basophils (%) (Auto) , Differential Total Cells Counted 100, Neutrophils % (Manual) 88H, Lymphocytes % (Manual) 6L, Monocytes % (Manual) 6, Eosinophils % (Manual) 0, Basophils % ( Manual) 0, Band Neutrophils 0, Platelet Estimate Adequate, Platelet Morphology Normal, Hypochromasia 1+, Sodium Level 134L, Potassium Level 4.3, Chloride Level 104, Carbon Dioxide Level 15L, Anion Gap 15, Blood Urea Nitrogen 66H, Creatinine 3.1H, Estimat Glomerular Filtration Rate 19.9, Glucose Level 98, Uric Acid 10.8H, Calcium Level 5.9*L, Phosphorus Level 7.2H, Magnesium Level 1.9 , Total Bilirubin 0.3, Aspartate Amino Transf (AST/SGOT) 87H, Alanine Aminotransferase (ALT/SGPT) 17, Alkaline Phosphatase 77, Total Protein 4.7L, Albumin 1.0L, Globulin 3.7, Albumin/Globulin Ratio 0.3L, Random Vancomycin Level 22.3 Height (Feet): 6 Height (Inches): 0.00 Weight (Pounds): 198 General Appearance: no apparent distress EENT: other - Intubated on ventilator Cardiovascular: tachycardia Respiratory/Chest: decreased breath sounds Abdomen: distended Extremities: other - Edematous Objective No other change Ricardo Choudhary MD Nov 22, 2019 10:31
--- NOTE | 2019-11-22 11:06 | Pulmonolgy Critical Care Note ---
Critical Care - Asmt/Plan Problems: (1) Acute respiratory failure (2) ARF (acute renal failure) (3) Cardiac arrest (4) Aspiration pneumonia (5) Ventricular tachyarrhythmia (6) 2019 novel coronavirus disease (COVID-19) (7) DM (diabetes mellitus) Respiratory: monitor respiratory rate, adjust FIO2, CXR Cardiac: continue pressors, continue to monitor HR/BP Renal: F/U I&O, keep IV fluid, check electrolytes Infectious Disease: check cultures Gastrointestinal: continue feedings/current rate Endocrine: monitor blood sugar Hematologic: monitor H/H, transfuse if hgb<8.5 Neurologic: PRN Morphine, keep patient comfortable Prophylaxis: Protonix, Heparin Disposition: keep in ICU Time Spent (Minutes): 40 Notes Reviewed: 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, 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, renal 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, consultants, 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 - Objective Last 24 Hour Vital Signs Date Time Temp Pulse Resp B/P (MAP) Pulse Ox O2 Delivery O2 Flow Rate FiO2 11/22/19 10:00 85 21 96/51 (66) 100 11/22/19 10:00 96/51 11/22/19 10:00 100/51 11/22/19 09:30 88 21 100/51 (67) 100 11/22/19 09:00 84 21 101/53 (69) 100 11/22/19 09:00 101/53 11/22/19 08:30 83 24 94/48 (63) 100 11/22/19 08:05 100 11/22/19 08:00 35 11/22/19 08:00 104/54 11/22/19 08:00 Mechanical Ventilator 11/22/19 08:00 99.1 91 20 104/54 (71) 100 11/22/19 07:16 88 24 35 11/22/19 07:00 88 21 97/53 (68) 100 11/22/19 07:00 97/53 11/22/19 06:30 87 21 96/51 (66) 100 11/22/19 06:00 97/51 11/22/19 06:00 86 20 97/51 (66) 100 11/22/19 05:30 88 21 98/54 (69) 100 11/22/19 05:00 94/54 11/22/19 05:00 87 21 94/54 (67) 100 11/22/19 04:30 87 21 99/52 (68) 100 11/22/19 04:00 Mechanical Ventilator 11/22/19 04:00 93/48 11/22/19 04:00 97.4 85 21 97/50 (66) 100 11/22/19 04:00 35 11/22/19 04:00 86 11/22/19 03:52 83 21 35 11/22/19 03:30 89 23 98/54 (69) 100 11/22/19 03:00 86 21 98/51 (67) 100 11/22/19 03:00 91/46 11/22/19 02:55 87 103/53 11/22/19 02:30 86 22 99/52 (68) 100 11/22/19 02:00 89 20 97/51 (66) 100 11/22/19 02:00 99/49 11/22/19 01:30 86 20 100/54 (69) 100 11/22/19 01:00 87 19 103/53 (70) 100 11/22/19 01:00 103/53 11/22/19 00:30 85 20 97/55 (69) 100 11/22/19 00:15 89 21 110/60 (77) 100 11/22/19 00:00 97.1 84 20 107/59 (75) 100 11/22/19 00:00 107/59 11/22/19 00:00 Mechanical Ventilator 11/22/19 00:00 35 11/22/19 00:00 84 11/21/19 23:45 85 20 104/58 (73) 100 11/21/19 23:30 86 22 110/57 (74) 100 11/21/19 23:20 88 20 35 11/21/19 23:15 87 23 105/55 (72) 98 11/21/19 23:00 84 21 103/53 (70) 99 11/21/19 23:00 105/55 11/21/19 22:45 86 20 104/56 (72) 99 11/21/19 22:30 87 20 107/53 (71) 98 11/21/19 22:15 88 23 97/60 (72) 97 11/21/19 22:00 97/60 11/21/19 22:00 85 21 99/51 (67) 98 11/21/19 21:45 83 21 109/48 (68) 98 11/21/19 21:30 83 21 98/51 (67) 100 11/21/19 21:15 76 21 107/51 (69) 100 11/21/19 21:00 106/40 11/21/19 21:00 74 21 106/40 (62) 100 11/21/19 20:45 79 23 100/46 (64) 100 11/21/19 20:30 75 22 104/47 (66) 100 11/21/19 20:15 75 21 108/43 (64) 100 11/21/19 20:00 74 11/21/19 20:00 Mechanical Ventilator 11/21/19 20:00 35 11/21/19 20:00 96.1 75 21 104/40 (61) 100 11/21/19 20:00 104/40 11/21/19 19:45 77 23 101/47 (65) 100 11/21/19 19:30 75 21 109/42 (64) 100 11/21/19 19:28 77 20 35 11/21/19 19:00 102/45 11/21/19 19:00 74 20 107/42 (63) 100 11/21/19 18:00 106/48 11/21/19 18:00 97.5 77 20 106/48 (67) 100 11/21/19 17:30 74 20 103/46 (65) 100 11/21/19 17:00 100/45 11/21/19 17:00 75 20 100/45 (63) 100 11/21/19 16:00 76 11/21/19 16:00 35 11/21/19 16:00 109/57 11/21/19 16:00 76 20 109/57 (74) 100 11/21/19 16:00 Mechanical Ventilator 11/21/19 15:00 108/50 11/21/19 15:00 75 20 108/50 (69) 100 11/21/19 14:30 72 20 35 11/21/19 14:00 77 20 113/50 (71) 100 11/21/19 14:00 113/50 11/21/19 13:00 85/44 11/21/19 13:00 77 20 85/44 (58) 100 11/21/19 12:00 Mechanical Ventilator 6/8/20 12:00 97.3 75 20 106/44 (64) 100 11/21/19 12:00 106/44 11/21/19 12:00 74 11/21/19 12:00 35 11/21/19 11:45 97.2 74 20 95/46 (62) 100 11/21/19 11:30 97.2 72 20 95/45 (62) 100 Status: sedated Condition: critical HEENT: atraumatic Neck: full ROM Heart: HR/BP stable Abdomen: soft, non-tender Extremities: no C/C/E Critical Care - Subjective ROS Limited/Unobtainable: Yes Condition: critical EKG Rhythm: Sinus Rhythm FI02: 35 Vent Support Breath Rate: 20 Vent Support Mode: AC Vent Tidal Volume: 550 Sputum Amount: Small PEEP: 5.0 PIP: 26 Tube Feeding Amount: 10 I&O: Intake and Output 11/21/19 11/22/19 19:00 07:00 Intake Total 1658.17 ml 1515.86 ml Output Total 255 ml 30 ml Balance 1403.17 ml 1485.86 ml Free Water 60 ml IV Total 1598.17 ml 1515.86 ml Output Urine Total 55 ml 30 ml Stool Total 200 ml ET-Tube: 8.0 ET Position: 23 Labs: Laboratory Tests Test 11/22/19 04:00 11/22/19 10:35 White Blood Count 20.7 K/UL (4.8-10.8) H Red Blood Count 3.34 M/UL (4.70-6.10) L Hemoglobin 9.5 G/DL (14.2-18.0) L Hematocrit 27.1 % (42.0-52.0) L Mean Corpuscular Volume 81 FL (80-99) Mean Corpuscular Hemoglobin 28.4 PG (27.0-31.0) Mean Corpuscular Hemoglobin Concent 35.0 G/DL (32.0-36.0) Red Cell Distribution Width 13.5 % (11.6-14.8) Platelet Count 345 K/UL (150-450) Mean Platelet Volume 5.7 FL (6.5-10.1) L Neutrophils (%) (Auto) % (45.0-75.0) Lymphocytes (%) (Auto) % (20.0-45.0) Monocytes (%) (Auto) % (1.0-10.0) Eosinophils (%) (Auto) % (0.0-3.0) Basophils (%) (Auto) % (0.0-2.0) Differential Total Cells Counted 100 Neutrophils % (Manual) 88 % (45-75) H Lymphocytes % (Manual) 6 % (20-45) L Monocytes % (Manual) 6 % (1-10) Eosinophils % (Manual) 0 % (0-3) Basophils % (Manual) 0 % (0-2) Band Neutrophils 0 % (0-8) Platelet Estimate Adequate Platelet Morphology Normal Hypochromasia 1+ Sodium Level 134 MMOL/L (136-145) L Potassium Level 4.3 MMOL/L (3.5-5.1) Chloride Level 104 MMOL/L (98-107) Carbon Dioxide Level 15 MMOL/L (21-32) L Anion Gap 15 mmol/L (5-15) Blood Urea Nitrogen 66 mg/dL (7-18) H Creatinine 3.1 MG/DL (0.55-1.30) H Estimat Glomerular Filtration Rate 19.9 mL/min (>60) Glucose Level 98 MG/DL (74-106) Uric Acid 10.8 MG/DL (2.6-7.2) H Calcium Level 5.9 MG/DL (8.5-10.1) *L Phosphorus Level 7.2 MG/DL (2.5-4.9) H Magnesium Level 1.9 MG/DL (1.8-2.4) Total Bilirubin 0.3 MG/DL (0.2-1.0) Aspartate Amino Transf (AST/SGOT) 87 U/L (15-37) H Alanine Aminotransferase (ALT/SGPT) 17 U/L (12-78) Alkaline Phosphatase 77 U/L (46-116) Total Protein 4.7 G/DL (6.4-8.2) L Albumin 1.0 G/DL (3.4-5.0) L Globulin 3.7 g/dL Albumin/Globulin Ratio 0.3 (1.0-2.7) L Random Vancomycin Level 22.3 ug/mL Urine Random Sodium Pending Ayana Ndiaye MD Nov 22, 2019 11:06
[2019-11-22] MEDS: Midodrine 10mg tab ORAL SCH ×2 (13:16→19:58)
--- NOTE | 2019-11-22 13:44 | Infectious Diseases Prog Note ---
Assessment/Plan Assessment/Plan Assessment: PEA arrest> unstable SVT s/p cardioversion 11/17 Septic shock- pressors requirements decreasing Fever, recurrent; improving Leukocytosis; worsened, now improving -11/17 u/a no pyuria; ucx neg Bcx NTD sp cx PsA (R Zosyn; S Gentamycin, levaquin), P. mirabilis ([place] S) Pneumonia Acute hypoxic resp failure- sp NRB 15L, now VDRF 11/17 - 2ry to COVID19 and superimposed bacterial PNA -11/19 CXR: There is been worsening of moderately consolidating right middle lobe pneumonia. -11/17 CXR: Bilateral lower lobe atelectasis/infiltrates, slightly increased. No large pleural effusions. -11/15 CXR: New/increased infiltrates at the left lateral lung base -11/11 CXR: Mild interstitial thickening is slightly improved. -11/10 CXR: Hazy basilar infiltrates left greater than right. sp cx PsA ([place] S), P.mirabilis ([facility] S), MRSA (S Vanco CARLOS 1, bactrim; R tetracycline ) -11/10 SARS-COV2 positive UTI c/w bacteremia -u/a wbc 5-10, nit neg, leuk +1, RBC TNCT; ucx 10-20k E. faecalis (S amp, vanco) -11/10 Bcx 2/ E. faecalis (S Vancomycin, AMP) CONS bacteremia- likely contaminant -11/10 Bcx 2/ S. 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 fecalis bacteremia -monitor platelets -Meropenem #5 -Cont PO Vancomycin 125mg qid #03/28 and add IV Flagyl #8/-14 for severe Cdiff -11/17 SP cefepime #8, Remdesivir #5 -f/u cx -Monitor CBC/CMP, temperature -COVID19 isolation and testing -PEG care -wound care per surgical team -aspiration precautions -f/u repeat Bcx -will need 2d echo later on this admission -poor px -f/u repeat cultures Thank you for consulting [facility]. Will continue to follow along with you. Discussed with RN and pharm Subjective Allergies: Coded Allergies: No Known Allergies (Unverified , 09/16/19) Subjective afebrile >36hrs Fio2 35% wbc improving Cr increased, vanco through elevated off [place], levo at 1 Objective Vital Signs Last 24 Hour Vital Signs Date Time Temp Pulse Resp B/P (MAP) Pulse Ox O2 Delivery O2 Flow Rate FiO2 11/22/19 12:00 83 11/22/19 12:00 84 20 97/52 (67) 100 11/22/19 12:00 35 11/22/19 12:00 Mechanical Ventilator 11/22/19 11:00 86 20 98/51 (67) 100 11/22/19 11:00 85 24 35 11/22/19 10:30 83 20 91/50 (64) 100 11/22/19 10:00 85 21 96/51 (66) 100 11/22/19 10:00 96/51 11/22/19 10:00 100/51 11/22/19 09:30 88 21 100/51 (67) 100 11/22/19 09:00 84 21 101/53 (69) 100 11/22/19 09:00 101/53 11/22/19 08:30 83 24 94/48 (63) 100 11/22/19 08:05 100 11/22/19 08:00 35 11/22/19 08:00 104/54 11/22/19 08:00 Mechanical Ventilator 11/22/19 08:00 87 11/22/19 08:00 99.1 91 20 104/54 (71) 100 11/22/19 07:16 88 24 35 11/22/19 07:00 88 21 97/53 (68) 100 11/22/19 07:00 97/53 11/22/19 06:30 87 21 96/51 (66) 100 11/22/19 06:00 97/51 11/22/19 06:00 86 20 97/51 (66) 100 11/22/19 05:30 88 21 98/54 (69) 100 11/22/19 05:00 94/54 11/22/19 05:00 87 21 94/54 (67) 100 11/22/19 04:30 87 21 99/52 (68) 100 11/22/19 04:00 Mechanical Ventilator 11/22/19 04:00 93/48 11/22/19 04:00 97.4 85 21 97/50 (66) 100 11/22/19 04:00 35 11/22/19 04:00 86 11/22/19 03:52 83 21 35 11/22/19 03:30 89 23 98/54 (69) 100 11/22/19 03:00 86 21 98/51 (67) 100 11/22/19 03:00 91/46 11/22/19 02:55 87 103/53 11/22/19 02:30 86 22 99/52 (68) 100 11/22/19 02:00 89 20 97/51 (66) 100 11/22/19 02:00 99/49 11/22/19 01:30 86 20 100/54 (69) 100 11/22/19 01:00 87 19 103/53 (70) 100 11/22/19 01:00 103/53 11/22/19 00:30 85 20 97/55 (69) 100 11/22/19 00:15 89 21 110/60 (77) 100 11/22/19 00:00 97.1 84 20 107/59 (75) 100 11/22/19 00:00 107/59 11/22/19 00:00 Mechanical Ventilator 11/22/19 00:00 35 11/22/19 00:00 84 11/21/19 23:45 85 20 104/58 (73) 100 11/21/19 23:30 86 22 110/57 (74) 100 11/21/19 23:20 88 20 35 11/21/19 23:15 87 23 105/55 (72) 98 11/21/19 23:00 84 21 103/53 (70) 99 11/21/19 23:00 105/55 11/21/19 22:45 86 20 104/56 (72) 99 11/21/19 22:30 87 20 107/53 (71) 98 11/21/19 22:15 88 23 97/60 (72) 97 11/21/19 22:00 97/60 11/21/19 22:00 85 21 99/51 (67) 98 11/21/19 21:45 83 21 109/48 (68) 98 11/21/19 21:30 83 21 98/51 (67) 100 11/21/19 21:15 76 21 107/51 (69) 100 11/21/19 21:00 106/40 11/21/19 21:00 74 21 106/40 (62) 100 11/21/19 20:45 79 23 100/46 (64) 100 11/21/19 20:30 75 22 104/47 (66) 100 11/21/19 20:15 75 21 108/43 (64) 100 11/21/19 20:00 74 11/21/19 20:00 Mechanical Ventilator 11/21/19 20:00 35 11/21/19 20:00 96.1 75 21 104/40 (61) 100 11/21/19 20:00 104/40 11/21/19 19:45 77 23 101/47 (65) 100 11/21/19 19:30 75 21 109/42 (64) 100 11/21/19 19:28 77 20 35 11/21/19 19:00 102/45 11/21/19 19:00 74 20 107/42 (63) 100 11/21/19 18:00 106/48 11/21/19 18:00 97.5 77 20 106/48 (67) 100 11/21/19 17:30 74 20 103/46 (65) 100 11/21/19 17:00 100/45 11/21/19 17:00 75 20 100/45 (63) 100 11/21/19 16:00 76 11/21/19 16:00 35 11/21/19 16:00 109/57 11/21/19 16:00 76 20 109/57 (74) 100 11/21/19 16:00 Mechanical Ventilator 11/21/19 15:00 108/50 11/21/19 15:00 75 20 108/50 (69) 100 11/21/19 14:30 72 20 35 11/21/19 14:00 77 20 113/50 (71) 100 11/21/19 14:00 113/50 Height (Feet): 6 Height (Inches): 0.00 Weight (Pounds): 198 Objective Gen: critically ill HEENT: ETT in place Lungs: no tacypnea or use of accessory muscles Neuro: lethargic Laboratory Tests Test 11/22/19 04:00 11/22/19 10:35 White Blood Count 20.7 K/UL (4.8-10.8) H Red Blood Count 3.34 M/UL (4.70-6.10) L Hemoglobin 9.5 G/DL (14.2-18.0) L Hematocrit 27.1 % (42.0-52.0) L Mean Corpuscular Volume 81 FL (80-99) Mean Corpuscular Hemoglobin 28.4 PG (27.0-31.0) Mean Corpuscular Hemoglobin Concent 35.0 G/DL (32.0-36.0) Red Cell Distribution Width 13.5 % (11.6-14.8) Platelet Count 345 K/UL (150-450) Mean Platelet Volume 5.7 FL (6.5-10.1) L Neutrophils (%) (Auto) % (45.0-75.0) Lymphocytes (%) (Auto) % (20.0-45.0) Monocytes (%) (Auto) % (1.0-10.0) Eosinophils (%) (Auto) % (0.0-3.0) Basophils (%) (Auto) % (0.0-2.0) Differential Total Cells Counted 100 Neutrophils % (Manual) 88 % (45-75) H Lymphocytes % (Manual) 6 % (20-45) L Monocytes % (Manual) 6 % (1-10) Eosinophils % (Manual) 0 % (0-3) Basophils % (Manual) 0 % (0-2) Band Neutrophils 0 % (0-8) Platelet Estimate Adequate Platelet Morphology Normal Hypochromasia 1+ Sodium Level 134 MMOL/L (136-145) L Potassium Level 4.3 MMOL/L (3.5-5.1) Chloride Level 104 MMOL/L (98-107) Carbon Dioxide Level 15 MMOL/L (21-32) L Anion Gap 15 mmol/L (5-15) Blood Urea Nitrogen 66 mg/dL (7-18) H Creatinine 3.1 MG/DL (0.55-1.30) H Estimat Glomerular Filtration Rate 19.9 mL/min (>60) Glucose Level 98 MG/DL (74-106) Uric Acid 10.8 MG/DL (2.6-7.2) H Calcium Level 5.9 MG/DL (8.5-10.1) *L Phosphorus Level 7.2 MG/DL (2.5-4.9) H Magnesium Level 1.9 MG/DL (1.8-2.4) Total Bilirubin 0.3 MG/DL (0.2-1.0) Aspartate Amino Transf (AST/SGOT) 87 U/L (15-37) H Alanine Aminotransferase (ALT/SGPT) 17 U/L (12-78) Alkaline Phosphatase 77 U/L (46-116) Total Protein 4.7 G/DL (6.4-8.2) L Albumin 1.0 G/DL (3.4-5.0) L Globulin 3.7 g/dL Albumin/Globulin Ratio 0.3 (1.0-2.7) L Random Vancomycin Level 22.3 ug/mL Urine Random Sodium 20 mmol/L (20-110) Current Medications Medications (Trade) Dose Ordered Sig/Leonor Route PRN Reason Start Time Stop Time Status Last Admin Dose Admin Acetaminophen (Tylenol) 650 mg Q4H PRN GT fever 11/18/19 03:00 12/11/19 02:59 11/19/19 20:04 Allopurinol (allopurinoL) 300 mg DAILY GT 11/21/19 09:00 12/21/19 08:59 11/22/19 08:04 Calcium Gluconate 1 gm/Sodium Chloride 120 ml @ 240 mls/hr Q12HR IVPB 11/22/19 09:00 12/22/19 08:59 11/22/19 08:05 Chlorhexidine Gluconate (Danielle-Hex 2%) 1 applic DAILY@2000 TOPIC 11/18/19 20:00 02/16/20 19:59 11/21/19 21:14 Dextrose/Sodium Chloride 1,000 ml @ 50 mls/hr Q20H IV 11/22/19 10:15 12/20/19 10:14 11/22/19 10:09 Heparin Sodium (Porcine) (Heparin 5000 units/ml) 5,000 units EVERY 12 HOURS SUBQ 11/18/19 09:00 12/26/19 08:59 11/22/19 08:06 Lorazepam (Ativan 2mg/ml 1ml) 2 mg Q4H PRN IV For Anxiety 11/18/19 12:10 11/25/19 12:09 11/20/19 03:50 Meropenem 500 mg/ Sodium Chloride 55 ml @ 110 mls/hr Q12HR IV 11/20/19 21:00 11/25/19 20:59 11/22/19 08:17 Metronidazole 100 ml @ 100 mls/hr Q8HR IVPB 11/18/19 06:00 11/24/19 23:59 11/22/19 13:16 Midodrine (Pro-Amatine) 10 mg Q8HR ORAL 11/22/19 14:00 02/20/20 13:59 11/22/19 13:16 Morphine Sulfate (Morphine Sulfate) 4 mg Q4H PRN IVP For Pain 11/18/19 12:10 11/25/19 12:09 Norepinephrine Bitartrate 8 mg/ Dextrose 558 ml @ 0 mls/hr Q24H IV 11/18/19 10:00 12/18/19 09:59 11/21/19 05:24 Ondansetron HCl (Zofran) 4 mg Q6H PRN IVP Nausea & Vomiting 11/18/19 03:00 12/11/19 08:59 Pantoprazole (Protonix) 40 mg DAILY IV 11/19/19 09:00 12/19/19 08:59 11/22/19 08:05 Phenylephrine HCl 50 mg/Dextrose 250 ml @ 0 mls/hr Q24H IV 11/18/19 03:15 12/18/19 03:14 11/18/19 10:46 Sevelamer Carbonate (Renvela) 800 mg Q6HR NG 11/22/19 08:00 02/20/20 07:59 11/22/19 11:17 Vancomycin HCl (Firvanq) 125 mg FOUR TIMES A DAY NG 11/18/19 09:00 11/26/19 23:59 11/22/19 13:17 Vancomycin HCl (Vanco pharmacy to dose) 1 ea DAILY PRN MISC Per rx protocol 11/18/19 09:00 12/11/19 08:59 Shannon Mark M.D. Nov 22, 2019 13:43
--- NOTE | 2019-11-22 15:36 | Surgery Progress Note ---
Surgery Progress Note Subjective Additional Comments received prbc h/h improved labs noted prognosis guarded ill apperaing Objective Last 24 Hour Vital Signs Date Time Temp Pulse Resp B/P (MAP) Pulse Ox O2 Delivery O2 Flow Rate FiO2 11/22/19 15:00 82 20 101/47 (65) 100 11/22/19 14:30 86 20 101/52 (68) 100 11/22/19 14:00 84 20 101/49 (66) 100 11/22/19 13:30 81 20 93/49 (64) 100 11/22/19 13:00 80 20 96/48 (64) 100 11/22/19 12:00 83 11/22/19 12:00 84 20 97/52 (67) 100 11/22/19 12:00 35 11/22/19 12:00 Mechanical Ventilator 11/22/19 11:00 86 20 98/51 (67) 100 11/22/19 11:00 85 24 35 11/22/19 10:30 83 20 91/50 (64) 100 11/22/19 10:00 85 21 96/51 (66) 100 11/22/19 10:00 96/51 11/22/19 10:00 100/51 11/22/19 09:30 88 21 100/51 (67) 100 11/22/19 09:00 84 21 101/53 (69) 100 11/22/19 09:00 101/53 11/22/19 08:30 83 24 94/48 (63) 100 11/22/19 08:05 100 11/22/19 08:00 35 11/22/19 08:00 104/54 11/22/19 08:00 Mechanical Ventilator 11/22/19 08:00 87 11/22/19 08:00 99.1 91 20 104/54 (71) 100 11/22/19 07:16 88 24 35 11/22/19 07:00 88 21 97/53 (68) 100 11/22/19 07:00 97/53 11/22/19 06:30 87 21 96/51 (66) 100 11/22/19 06:00 97/51 11/22/19 06:00 86 20 97/51 (66) 100 11/22/19 05:30 88 21 98/54 (69) 100 11/22/19 05:00 94/54 11/22/19 05:00 87 21 94/54 (67) 100 11/22/19 04:30 87 21 99/52 (68) 100 11/22/19 04:00 Mechanical Ventilator 11/22/19 04:00 93/48 11/22/19 04:00 97.4 85 21 97/50 (66) 100 11/22/19 04:00 35 11/22/19 04:00 86 11/22/19 03:52 83 21 35 11/22/19 03:30 89 23 98/54 (69) 100 11/22/19 03:00 86 21 98/51 (67) 100 11/22/19 03:00 91/46 11/22/19 02:55 87 103/53 11/22/19 02:30 86 22 99/52 (68) 100 11/22/19 02:00 89 20 97/51 (66) 100 11/22/19 02:00 99/49 11/22/19 01:30 86 20 100/54 (69) 100 11/22/19 01:00 87 19 103/53 (70) 100 11/22/19 01:00 103/53 11/22/19 00:30 85 20 97/55 (69) 100 11/22/19 00:15 89 21 110/60 (77) 100 11/22/19 00:00 97.1 84 20 107/59 (75) 100 11/22/19 00:00 107/59 11/22/19 00:00 Mechanical Ventilator 11/22/19 00:00 35 11/22/19 00:00 84 11/21/19 23:45 85 20 104/58 (73) 100 11/21/19 23:30 86 22 110/57 (74) 100 11/21/19 23:20 88 20 35 11/21/19 23:15 87 23 105/55 (72) 98 11/21/19 23:00 84 21 103/53 (70) 99 11/21/19 23:00 105/55 11/21/19 22:45 86 20 104/56 (72) 99 11/21/19 22:30 87 20 107/53 (71) 98 11/21/19 22:15 88 23 97/60 (72) 97 11/21/19 22:00 97/60 11/21/19 22:00 85 21 99/51 (67) 98 11/21/19 21:45 83 21 109/48 (68) 98 11/21/19 21:30 83 21 98/51 (67) 100 11/21/19 21:15 76 21 107/51 (69) 100 11/21/19 21:00 106/40 11/21/19 21:00 74 21 106/40 (62) 100 11/21/19 20:45 79 23 100/46 (64) 100 11/21/19 20:30 75 22 104/47 (66) 100 11/21/19 20:15 75 21 108/43 (64) 100 11/21/19 20:00 74 11/21/19 20:00 Mechanical Ventilator 11/21/19 20:00 35 11/21/19 20:00 96.1 75 21 104/40 (61) 100 11/21/19 20:00 104/40 11/21/19 19:45 77 23 101/47 (65) 100 11/21/19 19:30 75 21 109/42 (64) 100 11/21/19 19:28 77 20 35 11/21/19 19:00 102/45 11/21/19 19:00 74 20 107/42 (63) 100 11/21/19 18:00 106/48 11/21/19 18:00 97.5 77 20 106/48 (67) 100 11/21/19 17:30 74 20 103/46 (65) 100 11/21/19 17:00 100/45 11/21/19 17:00 75 20 100/45 (63) 100 11/21/19 16:00 76 11/21/19 16:00 35 11/21/19 16:00 109/57 11/21/19 16:00 76 20 109/57 (74) 100 11/21/19 16:00 Mechanical Ventilator I&O Intake and Output 11/21/19 11/22/19 19:00 07:00 Intake Total 1658.17 ml 1515.86 ml Output Total 255 ml 30 ml Balance 1403.17 ml 1485.86 ml Free Water 60 ml IV Total 1598.17 ml 1515.86 ml Output Urine Total 55 ml 30 ml Stool Total 200 ml Dressing: other Wound: other Drains: other Cardiovascular: RSR Respiratory: decreased breath sounds Abdomen: soft, present bowel sounds Extremities: no cyanosis Laboratory Tests Test 11/22/19 04:00 11/22/19 10:35 White Blood Count 20.7 K/UL (4.8-10.8) H Red Blood Count 3.34 M/UL (4.70-6.10) L Hemoglobin 9.5 G/DL (14.2-18.0) L Hematocrit 27.1 % (42.0-52.0) L Mean Corpuscular Volume 81 FL (80-99) Mean Corpuscular Hemoglobin 28.4 PG (27.0-31.0) Mean Corpuscular Hemoglobin Concent 35.0 G/DL (32.0-36.0) Red Cell Distribution Width 13.5 % (11.6-14.8) Platelet Count 345 K/UL (150-450) Mean Platelet Volume 5.7 FL (6.5-10.1) L Neutrophils (%) (Auto) % (45.0-75.0) Lymphocytes (%) (Auto) % (20.0-45.0) Monocytes (%) (Auto) % (1.0-10.0) Eosinophils (%) (Auto) % (0.0-3.0) Basophils (%) (Auto) % (0.0-2.0) Differential Total Cells Counted 100 Neutrophils % (Manual) 88 % (45-75) H Lymphocytes % (Manual) 6 % (20-45) L Monocytes % (Manual) 6 % (1-10) Eosinophils % (Manual) 0 % (0-3) Basophils % (Manual) 0 % (0-2) Band Neutrophils 0 % (0-8) Platelet Estimate Adequate Platelet Morphology Normal Hypochromasia 1+ Sodium Level 134 MMOL/L (136-145) L Potassium Level 4.3 MMOL/L (3.5-5.1) Chloride Level 104 MMOL/L (98-107) Carbon Dioxide Level 15 MMOL/L (21-32) L Anion Gap 15 mmol/L (5-15) Blood Urea Nitrogen 66 mg/dL (7-18) H Creatinine 3.1 MG/DL (0.55-1.30) H Estimat Glomerular Filtration Rate 19.9 mL/min (>60) Glucose Level 98 MG/DL (74-106) Uric Acid 10.8 MG/DL (2.6-7.2) H Calcium Level 5.9 MG/DL (8.5-10.1) *L Phosphorus Level 7.2 MG/DL (2.5-4.9) H Magnesium Level 1.9 MG/DL (1.8-2.4) Total Bilirubin 0.3 MG/DL (0.2-1.0) Aspartate Amino Transf (AST/SGOT) 87 U/L (15-37) H Alanine Aminotransferase (ALT/SGPT) 17 U/L (12-78) Alkaline Phosphatase 77 U/L (46-116) Total Protein 4.7 G/DL (6.4-8.2) L Albumin 1.0 G/DL (3.4-5.0) L Globulin 3.7 g/dL Albumin/Globulin Ratio 0.3 (1.0-2.7) L Random Vancomycin Level 22.3 ug/mL Urine Random Sodium 20 mmol/L (20-110) Plan Problems: (1) Decubitus skin ulcer Assessment & Plan: Pt presented on admission with large sacral wound. Base of wound with areas that area purple and indurated sacrococcygeal,L sacrum/L gluteus,Scattered wounds with maceration L gluteus, one wound R sacrum with Biofilm, Surrounding non-blanching erythema entire buttocks. Small dry scabbed area noted to lumbar area. Unstageable Pressure Injury L heel. Base of wound is necrotic with surrounding non-blanching erythema. Tx.plan: Apply Moisture Barrier Paste to Buttocks. Cover Sacrum, R and L gluteal cheeks with Optifoam drsgs. Change every 3 days and prn. Apply Betadine to L heel. Cover with Optifoam drsg. Change every 3 days and prn. Reposition at least every 2hours or as tolerated. Place Pillow between knees. Off-load heels with Pillow. APM/BRUNILDA Mattress overlay. DAILY ESTIMATED NEEDS: Needs based on wt loss, underweight, wound/ 59kg 30-35 kcals/kg 9685-6052 total kcals 1.25-2 g protein/kg 74-118 g total protein 25-30 mL/kg 1084-6244 total fluid mLs NUTRITION DIAGNOSIS: * Increased kcal/prot intake needs R/T wound healing, suspected recent significant wt loss as evidenced by admitted w/ wounds @ lt posterior heel, R lower back, sacrum as per photos, pending eval, suspected significant wt loss of 40lbs/ 23.7% in <5 months, currently @ 81% IBW. . * Swallowing difficulty R/T dysphagia, h/o CVA as evidenced by PEG dependent. CURRENT TF:Glucerna 1.2 @65ml/hr x24 hrs ENTERAL NUTRITION RECOMMENDATIONS: NEPRO @45ml/hr x24 hrs to provide 1080ml, 1944 kcal, 87g pro, 785ml free H2O - Rec TF change for lower K content (1145mg in Nepro @45 vs 3151mg in Glucerna 1.2 @65) - Start at 25ml/hr advance as tolerated 10ml/hr q4-6 hrs - HOB over 30 degrees - Increased H20 flush to 200ml q4 hrs ADDITIONAL RECOMMENDATIONS: 1) Calibrated bedscale wt -> per SNF: HT=59" and AE=439fvg (10/20/19) 2) Wound healing: Add Vit C 500mg QD/ or dosing per nephro Add Osbaldo BID via PEG w/ TF order 3) Monitor lytes: monitor K trend, need for renal TF (K 5.3, 5.5) 4) NISS w/ TF (h/o DM) 5) Monitor for diarrhea, rec probiotics (2) Sepsis Assessment & Plan: 74-year-old male multi-medical comorbidities admitted for respiratory deficiency currently tachypneic, leukocytosis, malnutrition, hypoalbuminemia. Complete physical exam performed identified areas of concerned given patient's comorbidities current condition high risk for deteriorationNo active infection identified from patient's wounds and likely respiratory nature. Chest x-ray reviewed. No acute surgical intervention planned at this time Preventive measures IV antibiotics per infectious disease Okay for feeding once stable respiratory Appreciate Pulm input c diff positive on vanco blood cx noted worsening leukocytosis ID abx noted heme input noted There are increasing basilar opacities on the left noted. The heart size is normal. The pleural spaces are clear. 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
--- NOTE | 2019-11-22 16:50 | Cardiology Progress Note ---
Assessment/Plan Assessment/Plan 1. covid 19 pneumonia 2. History of cerebrovascular accident. 3. History of carotid occlusion. 4. Bilateral infiltrates and pneumonia. 5. Aphasia. 6. Diabetes mellitus. 7. Hyponatremia. 8. Renal insufficiency 9. 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 asystolic arrest probably aspiration with subequent hypoxemia relasted 12. 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 sinus tachy , now on 40% on the vent pressor now off for judith moment vent support trop neg neuro poor consider neuro eval Subjective ROS Limited/Unobtainable: Yes Subjective not communicative in isoaltion on a vent , nto responsive per rn , toelrting feeds in on pressor , urine out put poor desptie ivf Objective Last 24 Hour Vital Signs Date Time Temp Pulse Resp B/P (MAP) Pulse Ox O2 Delivery O2 Flow Rate FiO2 11/22/19 16:00 35 11/22/19 16:00 Mechanical Ventilator 11/22/19 16:00 99.2 83 20 92/47 (62) 100 11/22/19 15:00 82 20 101/47 (65) 100 11/22/19 15:00 101/47 11/22/19 14:43 83 20 35 11/22/19 14:30 86 20 101/52 (68) 100 11/22/19 14:00 101/49 11/22/19 14:00 84 20 101/49 (66) 100 11/22/19 13:30 81 20 93/49 (64) 100 11/22/19 13:00 80 20 96/48 (64) 100 11/22/19 13:00 96/48 11/22/19 12:00 83 11/22/19 12:00 84 20 97/52 (67) 100 11/22/19 12:00 97/52 11/22/19 12:00 35 11/22/19 12:00 Mechanical Ventilator 11/22/19 11:00 86 20 98/51 (67) 100 11/22/19 11:00 98/51 11/22/19 11:00 85 24 35 11/22/19 10:30 83 20 91/50 (64) 100 11/22/19 10:00 85 21 96/51 (66) 100 11/22/19 10:00 96/51 11/22/19 10:00 100/51 11/22/19 09:30 88 21 100/51 (67) 100 11/22/19 09:00 84 21 101/53 (69) 100 11/22/19 09:00 101/53 11/22/19 08:30 83 24 94/48 (63) 100 11/22/19 08:05 100 11/22/19 08:00 35 11/22/19 08:00 104/54 11/22/19 08:00 Mechanical Ventilator 11/22/19 08:00 87 11/22/19 08:00 99.1 91 20 104/54 (71) 100 11/22/19 07:16 88 24 35 11/22/19 07:00 88 21 97/53 (68) 100 11/22/19 07:00 97/53 11/22/19 06:30 87 21 96/51 (66) 100 11/22/19 06:00 97/51 11/22/19 06:00 86 20 97/51 (66) 100 11/22/19 05:30 88 21 98/54 (69) 100 11/22/19 05:00 94/54 11/22/19 05:00 87 21 94/54 (67) 100 11/22/19 04:30 87 21 99/52 (68) 100 11/22/19 04:00 Mechanical Ventilator 11/22/19 04:00 93/48 11/22/19 04:00 97.4 85 21 97/50 (66) 100 11/22/19 04:00 35 11/22/19 04:00 86 11/22/19 03:52 83 21 35 11/22/19 03:30 89 23 98/54 (69) 100 11/22/19 03:00 86 21 98/51 (67) 100 11/22/19 03:00 91/46 11/22/19 02:55 87 103/53 11/22/19 02:30 86 22 99/52 (68) 100 11/22/19 02:00 89 20 97/51 (66) 100 11/22/19 02:00 99/49 11/22/19 01:30 86 20 100/54 (69) 100 11/22/19 01:00 87 19 103/53 (70) 100 11/22/19 01:00 103/53 11/22/19 00:30 85 20 97/55 (69) 100 11/22/19 00:15 89 21 110/60 (77) 100 11/22/19 00:00 97.1 84 20 107/59 (75) 100 11/22/19 00:00 107/59 11/22/19 00:00 Mechanical Ventilator 11/22/19 00:00 35 11/22/19 00:00 84 11/21/19 23:45 85 20 104/58 (73) 100 11/21/19 23:30 86 22 110/57 (74) 100 11/21/19 23:20 88 20 35 11/21/19 23:15 87 23 105/55 (72) 98 11/21/19 23:00 84 21 103/53 (70) 99 11/21/19 23:00 105/55 11/21/19 22:45 86 20 104/56 (72) 99 11/21/19 22:30 87 20 107/53 (71) 98 11/21/19 22:15 88 23 97/60 (72) 97 11/21/19 22:00 97/60 11/21/19 22:00 85 21 99/51 (67) 98 11/21/19 21:45 83 21 109/48 (68) 98 11/21/19 21:30 83 21 98/51 (67) 100 11/21/19 21:15 76 21 107/51 (69) 100 11/21/19 21:00 106/40 11/21/19 21:00 74 21 106/40 (62) 100 11/21/19 20:45 79 23 100/46 (64) 100 11/21/19 20:30 75 22 104/47 (66) 100 11/21/19 20:15 75 21 108/43 (64) 100 11/21/19 20:00 74 11/21/19 20:00 Mechanical Ventilator 11/21/19 20:00 35 11/21/19 20:00 96.1 75 21 104/40 (61) 100 11/21/19 20:00 104/40 11/21/19 19:45 77 23 101/47 (65) 100 11/21/19 19:30 75 21 109/42 (64) 100 11/21/19 19:28 77 20 35 11/21/19 19:00 102/45 11/21/19 19:00 74 20 107/42 (63) 100 11/21/19 18:00 106/48 11/21/19 18:00 97.5 77 20 106/48 (67) 100 11/21/19 17:30 74 20 103/46 (65) 100 11/21/19 17:00 100/45 11/21/19 17:00 75 20 100/45 (63) 100 General Appearance: no apparent distress, alert, on vent, patient on isolation , isolation precautions Intake and Output 11/21/19 11/22/19 19:00 07:00 Intake Total 1658.17 ml 1515.86 ml Output Total 255 ml 30 ml Balance 1403.17 ml 1485.86 ml Free Water 60 ml IV Total 1598.17 ml 1515.86 ml Output Urine Total 55 ml 30 ml Stool Total 200 ml Laboratory Tests Test 11/22/19 04:00 11/22/19 10:35 White Blood Count 20.7 K/UL (4.8-10.8) H Red Blood Count 3.34 M/UL (4.70-6.10) L Hemoglobin 9.5 G/DL (14.2-18.0) L Hematocrit 27.1 % (42.0-52.0) L Mean Corpuscular Volume 81 FL (80-99) Mean Corpuscular Hemoglobin 28.4 PG (27.0-31.0) Mean Corpuscular Hemoglobin Concent 35.0 G/DL (32.0-36.0) Red Cell Distribution Width 13.5 % (11.6-14.8) Platelet Count 345 K/UL (150-450) Mean Platelet Volume 5.7 FL (6.5-10.1) L Neutrophils (%) (Auto) % (45.0-75.0) Lymphocytes (%) (Auto) % (20.0-45.0) Monocytes (%) (Auto) % (1.0-10.0) Eosinophils (%) (Auto) % (0.0-3.0) Basophils (%) (Auto) % (0.0-2.0) Differential Total Cells Counted 100 Neutrophils % (Manual) 88 % (45-75) H Lymphocytes % (Manual) 6 % (20-45) L Monocytes % (Manual) 6 % (1-10) Eosinophils % (Manual) 0 % (0-3) Basophils % (Manual) 0 % (0-2) Band Neutrophils 0 % (0-8) Platelet Estimate Adequate Platelet Morphology Normal Hypochromasia 1+ Sodium Level 134 MMOL/L (136-145) L Potassium Level 4.3 MMOL/L (3.5-5.1) Chloride Level 104 MMOL/L (98-107) Carbon Dioxide Level 15 MMOL/L (21-32) L Anion Gap 15 mmol/L (5-15) Blood Urea Nitrogen 66 mg/dL (7-18) H Creatinine 3.1 MG/DL (0.55-1.30) H Estimat Glomerular Filtration Rate 19.9 mL/min (>60) Glucose Level 98 MG/DL (74-106) Uric Acid 10.8 MG/DL (2.6-7.2) H Calcium Level 5.9 MG/DL (8.5-10.1) *L Phosphorus Level 7.2 MG/DL (2.5-4.9) H Magnesium Level 1.9 MG/DL (1.8-2.4) Total Bilirubin 0.3 MG/DL (0.2-1.0) Aspartate Amino Transf (AST/SGOT) 87 U/L (15-37) H Alanine Aminotransferase (ALT/SGPT) 17 U/L (12-78) Alkaline Phosphatase 77 U/L (46-116) Total Protein 4.7 G/DL (6.4-8.2) L Albumin 1.0 G/DL (3.4-5.0) L Globulin 3.7 g/dL Albumin/Globulin Ratio 0.3 (1.0-2.7) L Random Vancomycin Level 22.3 ug/mL Urine Random Sodium 20 mmol/L (20-110) Objective pt seen but nto examined due to Chris Bush MD Nov 22, 2019 16:50
[2019-11-22] MEDS: Dyna-Hex 2% Top Sol 2oz TOPIC SCH (19:58)
--- NOTE | 2019-11-22 21:23 | General Progress Note ---
Assessment/Plan Problem List: (1) Acute respiratory failure ICD Codes: J96.00 - Acute respiratory failure, unspecified whether with hypoxia or hypercapnia SNOMED: 83412856 (2) Leucocytosis ICD Codes: D72.829 - Elevated white blood cell count, unspecified SNOMED: 646602119, 764093954 (3) Hyperkalemia ICD Codes: E87.5 - Hyperkalemia SNOMED: 10205374 (4) 2019 novel coronavirus disease (COVID-19) ICD Codes: U07.1 - COVID-19 SNOMED: 595332205 (5) Severe malnutrition ICD Codes: E43 - Unspecified severe protein-calorie malnutrition SNOMED: 04953680 (6) Sepsis ICD Codes: A41.9 - Sepsis, unspecified organism SNOMED: 38089320 Qualifiers: Qualified Codes: A41.9 - Sepsis, unspecified organism; R65.20 - Severe sepsis without septic shock; J96.01 - Acute respiratory failure with hypoxia (7) DM (diabetes mellitus) ICD Codes: E11.9 - Type 2 diabetes mellitus without complications SNOMED: 30996643 (8) ARF (acute renal failure) ICD Codes: N17.9 - Acute kidney failure, unspecified SNOMED: 81357168 Qualifiers: Qualified Codes: N17.9 - Acute kidney failure, unspecified (9) Aspiration pneumonia ICD Codes: J69.0 - Pneumonitis due to inhalation of food and vomit SNOMED: 873389493 (10) Hypertension ICD Codes: I10 - Essential (primary) hypertension SNOMED: 39555966 (11) UTI (urinary tract infection) ICD Codes: N39.0 - Urinary tract infection, site not specified SNOMED: 90179013 Qualifiers: Qualified Codes: N30.00 - Acute cystitis without hematuria (12) Anemia ICD Codes: D64.9 - Anemia, unspecified SNOMED: 254901254 Qualifiers: Qualified Codes: D64.9 - Anemia, unspecified (13) Respiratory failure with hypoxia ICD Codes: J96.91 - Respiratory failure, unspecified with hypoxia SNOMED: 97286670854390415 Qualifiers: Qualified Codes: J96.01 - Acute respiratory failure with hypoxia (14) Suspected COVID-19 virus infection ICD Codes: Z20.828 - Contact with and (suspected) exposure to other viral communicable diseases SNOMED: 151423243 Status: stable, progressing, unchanged Assessment/Plan: persistent leukocytosis sepsis uti renal failure septic pna poor prognosis Subjective ROS Limited/Unobtainable: Yes Allergies: Coded Allergies: No Known Allergies (Unverified , 09/16/19) Objective Last 24 Hour Vital Signs Date Time Temp Pulse Resp B/P (MAP) Pulse Ox O2 Delivery O2 Flow Rate FiO2 11/22/19 21:00 82 20 98/48 (65) 97 11/22/19 21:00 100/46 11/22/19 20:30 82 20 103/48 (66) 97 11/22/19 20:09 80 20 35 11/22/19 20:00 Mechanical Ventilator 11/22/19 20:00 81 11/22/19 20:00 35 11/22/19 20:00 98.7 84 20 97/47 (64) 99 11/22/19 20:00 97/47 11/22/19 19:30 82 20 94/46 (62) 98 11/22/19 19:00 79 20 93/47 (62) 98 11/22/19 18:30 79 20 93/45 (61) 99 11/22/19 18:16 93/44 11/22/19 18:04 78 20 84/42 (56) 98 11/22/19 18:00 84/42 11/22/19 17:45 80 20 107/56 (73) 99 11/22/19 17:30 78 20 90/43 (59) 99 11/22/19 17:00 81 20 93/44 (60) 100 11/22/19 16:00 35 11/22/19 16:00 Mechanical Ventilator 11/22/19 16:00 99.2 83 20 92/47 (62) 100 11/22/19 16:00 86 11/22/19 15:00 82 20 101/47 (65) 100 11/22/19 15:00 101/47 11/22/19 14:43 83 20 35 11/22/19 14:30 86 20 101/52 (68) 100 11/22/19 14:00 101/49 11/22/19 14:00 84 20 101/49 (66) 100 11/22/19 13:30 81 20 93/49 (64) 100 11/22/19 13:00 80 20 96/48 (64) 100 11/22/19 13:00 96/48 11/22/19 12:00 83 11/22/19 12:00 84 20 97/52 (67) 100 11/22/19 12:00 97/52 11/22/19 12:00 35 11/22/19 12:00 Mechanical Ventilator 11/22/19 11:00 86 20 98/51 (67) 100 11/22/19 11:00 98/51 11/22/19 11:00 85 24 35 11/22/19 10:30 83 20 91/50 (64) 100 11/22/19 10:00 85 21 96/51 (66) 100 11/22/19 10:00 96/51 11/22/19 10:00 100/51 11/22/19 09:30 88 21 100/51 (67) 100 11/22/19 09:00 84 21 101/53 (69) 100 11/22/19 09:00 101/53 11/22/19 08:30 83 24 94/48 (63) 100 11/22/19 08:05 100 11/22/19 08:00 35 11/22/19 08:00 104/54 11/22/19 08:00 Mechanical Ventilator 11/22/19 08:00 87 11/22/19 08:00 99.1 91 20 104/54 (71) 100 11/22/19 07:16 88 24 35 11/22/19 07:00 88 21 97/53 (68) 100 11/22/19 07:00 97/53 11/22/19 06:30 87 21 96/51 (66) 100 11/22/19 06:00 97/51 11/22/19 06:00 86 20 97/51 (66) 100 11/22/19 05:30 88 21 98/54 (69) 100 11/22/19 05:00 94/54 11/22/19 05:00 87 21 94/54 (67) 100 11/22/19 04:30 87 21 99/52 (68) 100 11/22/19 04:00 Mechanical Ventilator 11/22/19 04:00 93/48 11/22/19 04:00 97.4 85 21 97/50 (66) 100 11/22/19 04:00 35 11/22/19 04:00 86 11/22/19 03:52 83 21 35 11/22/19 03:30 89 23 98/54 (69) 100 11/22/19 03:00 86 21 98/51 (67) 100 11/22/19 03:00 91/46 11/22/19 02:55 87 103/53 11/22/19 02:30 86 22 99/52 (68) 100 11/22/19 02:00 89 20 97/51 (66) 100 11/22/19 02:00 99/49 11/22/19 01:30 86 20 100/54 (69) 100 11/22/19 01:00 87 19 103/53 (70) 100 11/22/19 01:00 103/53 11/22/19 00:30 85 20 97/55 (69) 100 11/22/19 00:15 89 21 110/60 (77) 100 11/22/19 00:00 97.1 84 20 107/59 (75) 100 11/22/19 00:00 107/59 11/22/19 00:00 Mechanical Ventilator 11/22/19 00:00 35 11/22/19 00:00 84 11/21/19 23:45 85 20 104/58 (73) 100 11/21/19 23:30 86 22 110/57 (74) 100 11/21/19 23:20 88 20 35 11/21/19 23:15 87 23 105/55 (72) 98 11/21/19 23:00 84 21 103/53 (70) 99 11/21/19 23:00 105/55 11/21/19 22:45 86 20 104/56 (72) 99 11/21/19 22:30 87 20 107/53 (71) 98 11/21/19 22:15 88 23 97/60 (72) 97 11/21/19 22:00 97/60 11/21/19 22:00 85 21 99/51 (67) 98 11/21/19 21:45 83 21 109/48 (68) 98 11/21/19 21:30 83 21 98/51 (67) 100 Intake and Output 11/21/19 11/22/19 19:00 07:00 Intake Total 1658.17 ml 1515.86 ml Output Total 255 ml 30 ml Balance 1403.17 ml 1485.86 ml Free Water 60 ml IV Total 1598.17 ml 1515.86 ml Output Urine Total 55 ml 30 ml Stool Total 200 ml Laboratory Tests 11/22/19 04:00: White Blood Count 20.7H, Red Blood Count 3.34L, Hemoglobin 9.5L, Hematocrit 27.1L, Mean Corpuscular Volume 81, Mean Corpuscular Hemoglobin 28.4, Mean Corpuscular Hemoglobin Concent 35.0, Red Cell Distribution Width 13.5, Platelet Count 345, Mean Platelet Volume 5.7L, Neutrophils (%) (Auto) , Lymphocytes (%) ( Auto) , Monocytes (%) (Auto) , Eosinophils (%) (Auto) , Basophils (%) (Auto) , Differential Total Cells Counted 100, Neutrophils % (Manual) 88H, Lymphocytes % (Manual) 6L, Monocytes % (Manual) 6, Eosinophils % (Manual) 0, Basophils % ( Manual) 0, Band Neutrophils 0, Platelet Estimate Adequate, Platelet Morphology Normal, Hypochromasia 1+, Sodium Level 134L, Potassium Level 4.3, Chloride Level 104, Carbon Dioxide Level 15L, Anion Gap 15, Blood Urea Nitrogen 66H, Creatinine 3.1H, Estimat Glomerular Filtration Rate 19.9, Glucose Level 98, Uric Acid 10.8H, Calcium Level 5.9*L, Phosphorus Level 7.2H, Magnesium Level 1.9 , Total Bilirubin 0.3, Aspartate Amino Transf (AST/SGOT) 87H, Alanine Aminotransferase (ALT/SGPT) 17, Alkaline Phosphatase 77, Total Protein 4.7L, Albumin 1.0L, Globulin 3.7, Albumin/Globulin Ratio 0.3L, Random Vancomycin Level 22.3 11/22/19 10:35: Urine Random Sodium 20 Height (Feet): 6 Height (Inches): 0.00 Weight (Pounds): 198 Singh Rubalcava MD Nov 22, 2019 21:23
[2019-11-23] VITALS (52 sets, daily range): BP systolic 83–140; BP diastolic 37–62
[2019-11-23 04:24] LABS: HEMATOCRIT 21.9 % (42.0-52.0); HEMOGLOBIN 7.5 G/DL (14.2-18.0); MEAN CORPUSCULAR VOLUME 83 FL (80-99); PLATELET COUNT 149 K/UL (150-450); RED BLOOD COUNT 2.65 M/UL (4.70-6.10); RED CELL DISTRIBUTION WIDTH 14.2 % (11.6-14.8); WHITE BLOOD COUNT 18.6 K/UL (4.8-10.8)
[2019-11-23 05:15] LABS: ALANINE AMINOTRANSFERASE 14 U/L (12-78); ALBUMIN/GLOBULIN RATIO 0.2 (1.0-2.7); ALKALINE PHOSPHATASE 82 U/L (46-116); ANION GAP 15 mmol/L (5-15); ASPARTATE AMINO TRANSFERASE 75 U/L (15-37); BILIRUBIN,TOTAL 0.3 MG/DL (0.2-1.0); BLOOD UREA NITROGEN 68 mg/dL (7-18); CALCIUM 6.4 MG/DL (8.5-10.1); CARBON DIOXIDE 14 MMOL/L (21-32); CHLORIDE 106 MMOL/L (98-107); CREATININE 3.7 MG/DL (0.55-1.30); PHOSPHORUS 7.8 MG/DL (2.5-4.9); POTASSIUM 4.7 MMOL/L (3.5-5.1); SODIUM 134 MMOL/L (136-145)
[2019-11-23] MEDS: D5NS 1,000 ML IV SCH (05:46)
[2019-11-23] MEDS: Renvela 800mg Pkt NG SCH ×3 (05:46→17:16)
[2019-11-23] MEDS: Midodrine 10mg tab ORAL SCH ×3 (05:46→22:25)
--- NOTE | 2019-11-23 07:30 | Hematology/Onc Progress Note ---
Assessment/Plan Assessment/Plan Assessment and Recs # Leukocytosis/elevated white blood cell count, unspecified likely related to underlying stress reaction, smoking v more likely infection, in this case with pna and COVID19++++++++ --> have reviewed peripheral smear and bandemia/neutrophilia noted --> continue antibiotics if they have been started by ID team --> monitor for resolution --> wbc 35k-->31.2-->25-->27.4 -->25-->20.7-->18.6 --> abx/antivral: remdesivir/vanc/cefepime-->vanc/flagyl/monique-->linezolid/monique # Thrombocytosis - if plt count >400k, most usually is a reactive process and will improve once exacerbant removed as well --> in this case due to underlying infection --> plt trend 646k-->672 -->547-->372-->345-->149 # Anemia of chronic disease due to underlying chronic medical issues, multifactorial v Gi bleed --> Anemia workup has been ordered, rule out gi bleed -> ferritin 1339 --> No evidence of hemolysis is noted, peripheral smear has been reviewed. --> Hgb goal >7. Transfuse prn. --> Epogen or iron at this time is not particularly indicated --> Medications have been reviewed --> low threshold for gi evaluation in case has occult + --> bone marrow biopsy is not indicated given the other more likely causes --> hgb 9.5-->9.8->8.8-->8.6-->7.5-->9.5-->7.5 --> 1 unit prbc 11/20 --> ddimer remains elevated currently # Acute hypoxic resp failure- on NRB 15L- 2ry to COVID19 --> per id and pulm recs --> breathing treatments and rep cxr --> 11/15 cxr: New/increased infiltrates at the left lateral lung base # UTI c/w bacteremia --> abx per id # Cdiff colitis # MONICA, improving # Deep tissue injury (sacrum, L heel) # HTN # Dm2 # MDD # Dysphagia s/p GT # malnutrition # decubitus ulcer # non verbal # 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 Greatly appreciate consultation. Subjective Allergies: Coded Allergies: No Known Allergies (Unverified , 09/16/19) Subjective 11/15 tele, no acute events, cxr and labs reviewed, nrb 15l, remdesivir 11/16 remains on iso, breathing is improved, no night sweats 11/17 remains with fever, cooling blankets, labs noted, no bleed hgb 8.8 11/19 icu, no acute events, vent, levo gtt, meds and labs reviewed 11/20 labs noted, no bleeding, in icu, hgb 7.5, to get one unit prbc, wbc elev 25 11/21 non verbal, s/p blood, hgb improved to 9.5, vent, iv abx 11/22 icu, no new changes, labs reviewed, levo gtt Objective Objective Current Medications Medications (Trade) Dose Ordered Sig/Leonor Route PRN Reason Start Time Stop Time Status Last Admin Dose Admin Acetaminophen (Tylenol) 650 mg Q4H PRN GT fever 11/18/19 03:00 12/11/19 02:59 11/19/19 20:04 Allopurinol (allopurinoL) 300 mg DAILY GT 11/21/19 09:00 12/21/19 08:59 11/22/19 08:04 Calcium Gluconate 1 gm/Sodium Chloride 120 ml @ 240 mls/hr Q12HR IVPB 11/22/19 09:00 12/22/19 08:59 11/22/19 19:59 Chlorhexidine Gluconate (Danielle-Hex 2%) 1 applic DAILY@2000 TOPIC 11/18/19 20:00 02/16/20 19:59 11/22/19 19:58 Dextrose/Sodium Chloride 1,000 ml @ 50 mls/hr Q20H IV 11/22/19 10:15 12/20/19 10:14 11/23/19 05:46 Heparin Sodium (Porcine) (Heparin 5000 units/ml) 5,000 units EVERY 12 HOURS SUBQ 11/18/19 09:00 12/26/19 08:59 11/22/19 20:01 Linezolid (Zyvox) 600 mg EVERY 12 HOURS ORAL 11/22/19 21:00 11/27/19 20:59 11/22/19 20:04 Lorazepam (Ativan 2mg/ml 1ml) 2 mg Q4H PRN IV For Anxiety 11/18/19 12:10 11/25/19 12:09 11/20/19 03:50 Meropenem 500 mg/ Sodium Chloride 55 ml @ 110 mls/hr Q12HR IV 11/20/19 21:00 11/25/19 20:59 11/22/19 19:59 Metronidazole 100 ml @ 100 mls/hr Q8HR IVPB 11/18/19 06:00 11/24/19 23:59 11/23/19 05:46 Midodrine (Pro-Amatine) 10 mg Q8HR ORAL 11/22/19 14:00 02/20/20 13:59 11/23/19 05:46 Morphine Sulfate (Morphine Sulfate) 4 mg Q4H PRN IVP For Pain 11/18/19 12:10 11/25/19 12:09 Norepinephrine Bitartrate 8 mg/ Dextrose 558 ml @ 0 mls/hr Q24H IV 11/18/19 10:00 12/18/19 09:59 11/22/19 18:16 Ondansetron HCl (Zofran) 4 mg Q6H PRN IVP Nausea & Vomiting 11/18/19 03:00 12/11/19 08:59 Pantoprazole (Protonix) 40 mg DAILY IV 11/19/19 09:00 12/19/19 08:59 11/22/19 08:05 Sevelamer Carbonate (Renvela) 800 mg Q6HR NG 11/22/19 08:00 02/20/20 07:59 11/23/19 05:46 Vancomycin HCl (Firvanq) 125 mg FOUR TIMES A DAY NG 11/18/19 09:00 11/26/19 23:59 11/22/19 19:58 Last 24 Hour Vital Signs Date Time Temp Pulse Resp B/P (MAP) Pulse Ox O2 Delivery O2 Flow Rate FiO2 11/23/19 07:00 85 20 98/45 (62) 99 11/23/19 07:00 102/50 11/23/19 06:30 99.0 85 21 94/46 (62) 99 11/23/19 06:15 84 20 102/46 (64) 99 11/23/19 06:00 100/45 11/23/19 06:00 82 21 104/44 (64) 99 11/23/19 05:45 86 22 102/48 (66) 99 11/23/19 05:30 82 21 102/47 (65) 99 11/23/19 05:00 103/46 11/23/19 05:00 86 21 104/46 (65) 99 11/23/19 04:30 80 20 100/45 (63) 99 11/23/19 04:00 Mechanical Ventilator 11/23/19 04:00 99.8 83 20 93/46 (62) 99 11/23/19 04:00 100/49 11/23/19 04:00 83 11/23/19 04:00 35 11/23/19 03:30 84 20 91/45 (60) 98 11/23/19 03:00 96/50 11/23/19 03:00 89 20 83/44 (57) 97 11/23/19 02:46 79 20 35 11/23/19 02:30 80 20 93/37 (55) 97 11/23/19 02:00 80 20 91/39 (56) 98 11/23/19 02:00 95/45 11/23/19 01:30 79 20 99/42 (61) 98 11/23/19 01:00 78 20 90/39 (56) 98 11/23/19 01:00 91/39 11/23/19 00:30 79 20 91/39 (56) 95 11/23/19 00:00 98.2 83 20 90/41 (57) 97 11/23/19 00:00 35 11/23/19 00:00 85 11/23/19 00:00 Mechanical Ventilator 11/23/19 00:00 88/39 11/22/19 23:43 82 20 35 11/22/19 23:30 79 20 88/39 (55) 98 11/22/19 23:00 80 20 91/42 (58) 97 11/22/19 23:00 99/42 11/22/19 22:30 81 20 100/42 (61) 99 11/22/19 22:00 99/39 11/22/19 22:00 83 20 98/45 (62) 97 11/22/19 21:00 82 20 98/48 (65) 97 11/22/19 21:00 100/46 11/22/19 20:30 82 20 103/48 (66) 97 11/22/19 20:09 80 20 35 11/22/19 20:00 Mechanical Ventilator 11/22/19 20:00 81 11/22/19 20:00 35 11/22/19 20:00 98.7 84 20 97/47 (64) 99 11/22/19 20:00 97/47 11/22/19 19:30 82 20 94/46 (62) 98 11/22/19 19:00 79 20 93/47 (62) 98 11/22/19 18:30 79 20 93/45 (61) 99 11/22/19 18:16 93/44 11/22/19 18:04 78 20 84/42 (56) 98 11/22/19 18:00 84/42 11/22/19 17:45 80 20 107/56 (73) 99 11/22/19 17:30 78 20 90/43 (59) 99 11/22/19 17:00 81 20 93/44 (60) 100 11/22/19 16:00 35 11/22/19 16:00 Mechanical Ventilator 11/22/19 16:00 99.2 83 20 92/47 (62) 100 11/22/19 16:00 86 11/22/19 15:00 82 20 101/47 (65) 100 11/22/19 15:00 101/47 11/22/19 14:43 83 20 35 11/22/19 14:30 86 20 101/52 (68) 100 11/22/19 14:00 101/49 11/22/19 14:00 84 20 101/49 (66) 100 11/22/19 13:30 81 20 93/49 (64) 100 11/22/19 13:00 80 20 96/48 (64) 100 11/22/19 13:00 96/48 11/22/19 12:00 83 11/22/19 12:00 84 20 97/52 (67) 100 11/22/19 12:00 97/52 11/22/19 12:00 35 11/22/19 12:00 Mechanical Ventilator 11/22/19 11:00 86 20 98/51 (67) 100 11/22/19 11:00 98/51 11/22/19 11:00 85 24 35 11/22/19 10:30 83 20 91/50 (64) 100 11/22/19 10:00 85 21 96/51 (66) 100 11/22/19 10:00 96/51 11/22/19 10:00 100/51 11/22/19 09:30 88 21 100/51 (67) 100 11/22/19 09:00 84 21 101/53 (69) 100 11/22/19 09:00 101/53 11/22/19 08:30 83 24 94/48 (63) 100 11/22/19 08:05 100 11/22/19 08:00 35 11/22/19 08:00 104/54 11/22/19 08:00 Mechanical Ventilator 11/22/19 08:00 87 11/22/19 08:00 99.1 91 20 104/54 (71) 100 11/22/19 07:16 88 24 35 11/22/19 07:00 88 21 97/53 (68) 100 11/22/19 07:00 97/53 11/22/19 06:30 87 21 96/51 (66) 100 11/22/19 06:00 97/51 11/22/19 06:00 86 20 97/51 (66) 100 11/22/19 05:30 88 21 98/54 (69) 100 11/22/19 05:00 94/54 11/22/19 05:00 87 21 94/54 (67) 100 11/22/19 04:30 87 21 99/52 (68) 100 11/22/19 04:00 Mechanical Ventilator 11/22/19 04:00 93/48 11/22/19 04:00 97.4 85 21 97/50 (66) 100 11/22/19 04:00 35 11/22/19 04:00 86 11/22/19 03:52 83 21 35 11/22/19 03:30 89 23 98/54 (69) 100 11/22/19 03:00 86 21 98/51 (67) 100 11/22/19 03:00 91/46 11/22/19 02:55 87 103/53 11/22/19 02:30 86 22 99/52 (68) 100 11/22/19 02:00 89 20 97/51 (66) 100 11/22/19 02:00 99/49 11/22/19 01:30 86 20 100/54 (69) 100 11/22/19 01:00 87 19 103/53 (70) 100 11/22/19 01:00 103/53 11/22/19 00:30 85 20 97/55 (69) 100 11/22/19 00:15 89 21 110/60 (77) 100 11/22/19 00:00 97.1 84 20 107/59 (75) 100 11/22/19 00:00 107/59 11/22/19 00:00 Mechanical Ventilator 11/22/19 00:00 35 11/22/19 00:00 84 11/21/19 23:45 85 20 104/58 (73) 100 11/21/19 23:30 86 22 110/57 (74) 100 11/21/19 23:20 88 20 35 11/21/19 23:15 87 23 105/55 (72) 98 11/21/19 23:00 84 21 103/53 (70) 99 11/21/19 23:00 105/55 11/21/19 22:45 86 20 104/56 (72) 99 11/21/19 22:30 87 20 107/53 (71) 98 11/21/19 22:15 88 23 97/60 (72) 97 11/21/19 22:00 97/60 11/21/19 22:00 85 21 99/51 (67) 98 11/21/19 21:45 83 21 109/48 (68) 98 11/21/19 21:30 83 21 98/51 (67) 100 11/21/19 21:15 76 21 107/51 (69) 100 11/21/19 21:00 106/40 11/21/19 21:00 74 21 106/40 (62) 100 11/21/19 20:45 79 23 100/46 (64) 100 11/21/19 20:30 75 22 104/47 (66) 100 11/21/19 20:15 75 21 108/43 (64) 100 11/21/19 20:00 74 11/21/19 20:00 Mechanical Ventilator 11/21/19 20:00 35 11/21/19 20:00 96.1 75 21 104/40 (61) 100 11/21/19 20:00 104/40 11/21/19 19:45 77 23 101/47 (65) 100 11/21/19 19:30 75 21 109/42 (64) 100 11/21/19 19:28 77 20 35 11/21/19 19:00 102/45 11/21/19 19:00 74 20 107/42 (63) 100 11/21/19 18:00 106/48 11/21/19 18:00 97.5 77 20 106/48 (67) 100 11/21/19 17:30 74 20 103/46 (65) 100 11/21/19 17:00 100/45 11/21/19 17:00 75 20 100/45 (63) 100 11/21/19 16:00 76 11/21/19 16:00 35 11/21/19 16:00 109/57 11/21/19 16:00 76 20 109/57 (74) 100 11/21/19 16:00 Mechanical Ventilator 11/21/19 15:00 108/50 11/21/19 15:00 75 20 108/50 (69) 100 11/21/19 14:30 72 20 35 11/21/19 14:00 77 20 113/50 (71) 100 11/21/19 14:00 113/50 11/21/19 13:00 85/44 11/21/19 13:00 77 20 85/44 (58) 100 11/21/19 12:00 Mechanical Ventilator 11/21/19 12:00 97.3 75 20 106/44 (64) 100 11/21/19 12:00 106/44 11/21/19 12:00 74 11/21/19 12:00 35 11/21/19 11:45 97.2 74 20 95/46 (62) 100 11/21/19 11:30 97.2 72 20 95/45 (62) 100 11/21/19 11:00 95/44 11/21/19 11:00 71 20 95/44 (61) 100 11/21/19 10:34 70 20 35 11/21/19 10:34 100 11/21/19 10:30 72 20 96/42 (60) 100 11/21/19 10:00 89/42 11/21/19 10:00 96.0 72 20 89/42 (58) 100 11/21/19 09:30 77 21 94/42 (59) 100 11/21/19 09:00 100/45 11/21/19 09:00 76 21 100/45 (63) 100 11/21/19 08:30 78 20 97/40 (59) 100 11/21/19 08:00 Mechanical Ventilator 11/21/19 08:00 35 11/21/19 08:00 73 11/21/19 08:00 99/44 11/21/19 08:00 79 21 99/44 (62) 100 11/21/19 08:00 81 20 35 Intake and Output 11/22/19 11/23/19 19:00 07:00 Intake Total 1182.63 ml 1583.08 ml Output Total 50 ml 50 ml Balance 1132.63 ml 1533.08 ml Free Water 80 ml 90 ml IV Total 962.63 ml 1133.08 ml Tube Feeding 140 ml 360 ml Output Urine Total 50 ml 50 ml Labs Test 11/20/19 08:01 11/21/19 04:00 11/22/19 04:00 11/22/19 10:35 Arterial Blood pH 7.295 (7.350-7.450) Arterial Blood Partial Pressure CO2 31.8 mmHg (35.0-45.0) Arterial Blood Partial Pressure O2 251.6 mmHg (75.0-100.0) Arterial Blood HCO3 15.1 mmol/L (22.0-26.0) Arterial Blood Oxygen Saturation 99.2 % (95-100) Arterial Blood Base Excess -10.4 (-2-2) Michael Test Positive White Blood Count 25.3 K/UL (4.8-10.8) 20.7 K/UL (4.8-10.8) Red Blood Count 2.64 M/UL (4.70-6.10) 3.34 M/UL (4.70-6.10) Hemoglobin 7.5 G/DL (14.2-18.0) 9.5 G/DL (14.2-18.0) Hematocrit 21.5 % (42.0-52.0) 27.1 % (42.0-52.0) Mean Corpuscular Volume 81 FL (80-99) 81 FL (80-99) Mean Corpuscular Hemoglobin 28.3 PG (27.0-31.0) 28.4 PG (27.0-31.0) Mean Corpuscular Hemoglobin Concent 34.9 G/DL (32.0-36.0) 35.0 G/DL (32.0-36.0) Red Cell Distribution Width 13.0 % (11.6-14.8) 13.5 % (11.6-14.8) Platelet Count 370 K/UL (150-450) 345 K/UL (150-450) Mean Platelet Volume 5.8 FL (6.5-10.1) 5.7 FL (6.5-10.1) Neutrophils (%) (Auto) % (45.0-75.0) % (45.0-75.0) Lymphocytes (%) (Auto) % (20.0-45.0) % (20.0-45.0) Monocytes (%) (Auto) % (1.0-10.0) % (1.0-10.0) Eosinophils (%) (Auto) % (0.0-3.0) % (0.0-3.0) Basophils (%) (Auto) % (0.0-2.0) % (0.0-2.0) Differential Total Cells Counted 100 100 Neutrophils % (Manual) 82 % (45-75) 88 % (45-75) Lymphocytes % (Manual) 6 % (20-45) 6 % (20-45) Monocytes % (Manual) 5 % (1-10) 6 % (1-10) Eosinophils % (Manual) 0 % (0-3) 0 % (0-3) Basophils % (Manual) 0 % (0-2) 0 % (0-2) Myelocytes % 2 % (0-0) Band Neutrophils 5 % (0-8) 0 % (0-8) Platelet Estimate Adequate Adequate Platelet Morphology Normal Normal Polychromasia 1+ Hypochromasia 1+ 1+ Sodium Level 136 MMOL/L (136-145) 134 MMOL/L (136-145) Potassium Level 4.3 MMOL/L (3.5-5.1) 4.3 MMOL/L (3.5-5.1) Chloride Level 105 MMOL/L (98-107) 104 MMOL/L (98-107) Carbon Dioxide Level 17 MMOL/L (21-32) 15 MMOL/L (21-32) Anion Gap 14 mmol/L (5-15) 15 mmol/L (5-15) Blood Urea Nitrogen 66 mg/dL (7-18) 66 mg/dL (7-18) Creatinine 2.7 MG/DL (0.55-1.30) 3.1 MG/DL (0.55-1.30) Estimat Glomerular Filtration Rate 23.3 mL/min (>60) 19.9 mL/min (>60) Glucose Level 122 MG/DL (74-106) 98 MG/DL (74-106) Uric Acid 11.0 MG/DL (2.6-7.2) 10.8 MG/DL (2.6-7.2) Calcium Level 6.2 MG/DL (8.5-10.1) 5.9 MG/DL (8.5-10.1) Phosphorus Level 6.9 MG/DL (2.5-4.9) 7.2 MG/DL (2.5-4.9) Magnesium Level 2.0 MG/DL (1.8-2.4) 1.9 MG/DL (1.8-2.4) Total Bilirubin 0.3 MG/DL (0.2-1.0) 0.3 MG/DL (0.2-1.0) Aspartate Amino Transf (AST/SGOT) 79 U/L (15-37) 87 U/L (15-37) Alanine Aminotransferase (ALT/SGPT) 10 U/L (12-78) 17 U/L (12-78) Alkaline Phosphatase 61 U/L (46-116) 77 U/L (46-116) C-Reactive Protein, Quantitative 11.0 mg/dL (0.00-0.90) Pro-B-Type Natriuretic Peptide 5614 pg/mL (0-125) Total Protein 4.4 G/DL (6.4-8.2) 4.7 G/DL (6.4-8.2) Albumin 1.1 G/DL (3.4-5.0) 1.0 G/DL (3.4-5.0) Globulin 3.3 g/dL 3.7 g/dL Albumin/Globulin Ratio 0.3 (1.0-2.7) 0.3 (1.0-2.7) Random Vancomycin Level 21.5 ug/mL 22.3 ug/mL Urine Random Sodium 20 mmol/L (20-110) Test 11/23/19 04:00 White Blood Count 18.6 K/UL (4.8-10.8) Red Blood Count 2.65 M/UL (4.70-6.10) Hemoglobin 7.5 G/DL (14.2-18.0) Hematocrit 21.9 % (42.0-52.0) Mean Corpuscular Volume 83 FL (80-99) Mean Corpuscular Hemoglobin 28.2 PG (27.0-31.0) Mean Corpuscular Hemoglobin Concent 34.2 G/DL (32.0-36.0) Red Cell Distribution Width 14.2 % (11.6-14.8) Platelet Count 149 K/UL (150-450) Mean Platelet Volume 5.4 FL (6.5-10.1) Neutrophils (%) (Auto) % (45.0-75.0) Lymphocytes (%) (Auto) % (20.0-45.0) Monocytes (%) (Auto) % (1.0-10.0) Eosinophils (%) (Auto) % (0.0-3.0) Basophils (%) (Auto) % (0.0-2.0) Sodium Level 134 MMOL/L (136-145) Potassium Level 4.7 MMOL/L (3.5-5.1) Chloride Level 106 MMOL/L (98-107) Carbon Dioxide Level 14 MMOL/L (21-32) Anion Gap 15 mmol/L (5-15) Blood Urea Nitrogen 68 mg/dL (7-18) Creatinine 3.7 MG/DL (0.55-1.30) Estimat Glomerular Filtration Rate 16.2 mL/min (>60) Glucose Level 127 MG/DL (74-106) Uric Acid 10.8 MG/DL (2.6-7.2) Calcium Level 6.4 MG/DL (8.5-10.1) Phosphorus Level 7.8 MG/DL (2.5-4.9) Magnesium Level 2.1 MG/DL (1.8-2.4) Total Bilirubin 0.3 MG/DL (0.2-1.0) Aspartate Amino Transf (AST/SGOT) 75 U/L (15-37) Alanine Aminotransferase (ALT/SGPT) 14 U/L (12-78) Alkaline Phosphatase 82 U/L (46-116) C-Reactive Protein, Quantitative 5.2 mg/dL (0.00-0.90) Pro-B-Type Natriuretic Peptide 4097 pg/mL (0-125) Total Protein 5.0 G/DL (6.4-8.2) Albumin 1.0 G/DL (3.4-5.0) Globulin 4.0 g/dL Albumin/Globulin Ratio 0.2 (1.0-2.7) Height (Feet): 6 Height (Inches): 0.00 Weight (Pounds): 198 Objective PE General: alert, chronically Ill Heent: nc, at Neck: full range of motion, supple, no meningismus Respiratory: chest non-tender, decreased breath sounds, crackles, vent++ Cardiovascular: no murmur, tachycardia Gastrointestinal: normal bowel sounds, non tender,+peg Musculoskeletal: back normal, normal range of motion, gait/station normal Neurologic: no pronator Deng Flowers MD Nov 23, 2019 07:30
[2019-11-23] MEDS: Calcium Gluconate 10% 1 GM in NS 110 ML IVPB SCH ×2 (08:34→20:55)
[2019-11-23] MEDS: Meropenem 500 MG in NS 55 ML IV SCH ×2 (08:35→20:54)
[2019-11-23] MEDS: Pantoprazole Inj IV SCH (08:35)
[2019-11-23] MEDS: Heparin 5000 units/ml inj SUBQ SCH ×2 (08:35→21:00)
[2019-11-23] MEDS: Vancomycin oral 125mg/2.5ml NG SCH ×4 (08:36→20:56)
--- NOTE | 2019-11-23 09:25 | General Progress Note ---
Assessment/Plan Problem List: (1) DM (diabetes mellitus) ICD Codes: E11.9 - Type 2 diabetes mellitus without complications SNOMED: 97680878 (2) ARF (acute renal failure) ICD Codes: N17.9 - Acute kidney failure, unspecified SNOMED: 94934448 Qualifiers: Qualified Codes: N17.9 - Acute kidney failure, unspecified (3) Aspiration pneumonia ICD Codes: J69.0 - Pneumonitis due to inhalation of food and vomit SNOMED: 955354218 (4) UTI (urinary tract infection) ICD Codes: N39.0 - Urinary tract infection, site not specified SNOMED: 22317975 Qualifiers: Qualified Codes: N30.00 - Acute cystitis without hematuria (5) Hypertension ICD Codes: I10 - Essential (primary) hypertension SNOMED: 22273694 (6) Anemia ICD Codes: D64.9 - Anemia, unspecified SNOMED: 736674829 Qualifiers: Qualified Codes: D64.9 - Anemia, unspecified (7) Respiratory failure with hypoxia ICD Codes: J96.91 - Respiratory failure, unspecified with hypoxia SNOMED: 60397936479712822 Qualifiers: Qualified Codes: J96.01 - Acute respiratory failure with hypoxia (8) Suspected COVID-19 virus infection ICD Codes: Z20.828 - Contact with and (suspected) exposure to other viral communicable diseases SNOMED: 931821141 Status: unchanged Assessment/Plan: vent abx pt diet cbc bmp am Subjective Constitutional: Reports: weakness Allergies: Coded Allergies: No Known Allergies (Unverified , 09/16/19) All Systems: reviewed and negative except above Subjective intubated sedated in icu Objective Last 24 Hour Vital Signs Date Time Temp Pulse Resp B/P (MAP) Pulse Ox O2 Delivery O2 Flow Rate FiO2 11/23/19 07:00 85 20 98/45 (62) 99 11/23/19 07:00 102/50 11/23/19 06:30 99.0 85 21 94/46 (62) 99 11/23/19 06:15 84 20 102/46 (64) 99 11/23/19 06:00 100/45 11/23/19 06:00 82 21 104/44 (64) 99 11/23/19 05:45 86 22 102/48 (66) 99 11/23/19 05:30 82 21 102/47 (65) 99 11/23/19 05:00 103/46 11/23/19 05:00 86 21 104/46 (65) 99 11/23/19 04:30 80 20 100/45 (63) 99 11/23/19 04:00 Mechanical Ventilator 11/23/19 04:00 99.8 83 20 93/46 (62) 99 11/23/19 04:00 100/49 11/23/19 04:00 83 11/23/19 04:00 35 11/23/19 03:30 84 20 91/45 (60) 98 11/23/19 03:00 96/50 11/23/19 03:00 89 20 83/44 (57) 97 11/23/19 02:46 79 20 35 11/23/19 02:30 80 20 93/37 (55) 97 11/23/19 02:00 80 20 91/39 (56) 98 11/23/19 02:00 95/45 11/23/19 01:30 79 20 99/42 (61) 98 11/23/19 01:00 78 20 90/39 (56) 98 11/23/19 01:00 91/39 11/23/19 00:30 79 20 91/39 (56) 95 11/23/19 00:00 98.2 83 20 90/41 (57) 97 11/23/19 00:00 35 11/23/19 00:00 85 11/23/19 00:00 Mechanical Ventilator 11/23/19 00:00 88/39 11/22/19 23:43 82 20 35 11/22/19 23:30 79 20 88/39 (55) 98 11/22/19 23:00 80 20 91/42 (58) 97 11/22/19 23:00 99/42 11/22/19 22:30 81 20 100/42 (61) 99 11/22/19 22:00 99/39 11/22/19 22:00 83 20 98/45 (62) 97 11/22/19 21:00 82 20 98/48 (65) 97 11/22/19 21:00 100/46 11/22/19 20:30 82 20 103/48 (66) 97 11/22/19 20:09 80 20 35 11/22/19 20:00 Mechanical Ventilator 11/22/19 20:00 81 11/22/19 20:00 35 11/22/19 20:00 98.7 84 20 97/47 (64) 99 11/22/19 20:00 97/47 11/22/19 19:30 82 20 94/46 (62) 98 11/22/19 19:00 79 20 93/47 (62) 98 11/22/19 18:30 79 20 93/45 (61) 99 11/22/19 18:16 93/44 11/22/19 18:04 78 20 84/42 (56) 98 11/22/19 18:00 84/42 11/22/19 17:45 80 20 107/56 (73) 99 11/22/19 17:30 78 20 90/43 (59) 99 11/22/19 17:00 81 20 93/44 (60) 100 11/22/19 16:00 35 11/22/19 16:00 Mechanical Ventilator 11/22/19 16:00 99.2 83 20 92/47 (62) 100 11/22/19 16:00 86 11/22/19 15:00 82 20 101/47 (65) 100 11/22/19 15:00 101/47 11/22/19 14:43 83 20 35 11/22/19 14:30 86 20 101/52 (68) 100 11/22/19 14:00 101/49 11/22/19 14:00 84 20 101/49 (66) 100 11/22/19 13:30 81 20 93/49 (64) 100 11/22/19 13:00 80 20 96/48 (64) 100 11/22/19 13:00 96/48 11/22/19 12:00 83 11/22/19 12:00 84 20 97/52 (67) 100 11/22/19 12:00 97/52 11/22/19 12:00 35 11/22/19 12:00 Mechanical Ventilator 11/22/19 11:00 86 20 98/51 (67) 100 11/22/19 11:00 98/51 11/22/19 11:00 85 24 35 11/22/19 10:30 83 20 91/50 (64) 100 11/22/19 10:00 85 21 96/51 (66) 100 11/22/19 10:00 96/51 11/22/19 10:00 100/51 11/22/19 09:30 88 21 100/51 (67) 100 Intake and Output 11/22/19 11/23/19 19:00 07:00 Intake Total 1182.63 ml 1583.08 ml Output Total 50 ml 50 ml Balance 1132.63 ml 1533.08 ml Free Water 80 ml 90 ml IV Total 962.63 ml 1133.08 ml Tube Feeding 140 ml 360 ml Output Urine Total 50 ml 50 ml Laboratory Tests 11/22/19 10:35: Urine Random Sodium 20 11/23/19 04:00: White Blood Count 18.6H, Red Blood Count 2.65L, Hemoglobin 7.5L, Hematocrit 21.9L, Mean Corpuscular Volume 83, Mean Corpuscular Hemoglobin 28.2, Mean Corpuscular Hemoglobin Concent 34.2, Red Cell Distribution Width 14.2, Platelet Count 149#L, Mean Platelet Volume 5.4L, Neutrophils (%) (Auto) , Lymphocytes (% ) (Auto) , Monocytes (%) (Auto) , Eosinophils (%) (Auto) , Basophils (%) (Auto) , Differential Total Cells Counted 100, Neutrophils % (Manual) 86H, Lymphocytes % (Manual) 7L, Monocytes % (Manual) 7, Eosinophils % (Manual) 0, Basophils % ( Manual) 0, Band Neutrophils 0, Platelet Estimate DecreasedL, Platelet Morphology Normal, Hypochromasia 3+, Anisocytosis 1+, Sodium Level 134L, Potassium Level 4.7, Chloride Level 106, Carbon Dioxide Level 14L, Anion Gap 15 , Blood Urea Nitrogen 68H, Creatinine 3.7H, Estimat Glomerular Filtration Rate 16.2, Glucose Level 127H, Uric Acid 10.8H, Calcium Level 6.4L, Phosphorus Level 7.8H, Magnesium Level 2.1, Total Bilirubin 0.3, Aspartate Amino Transf (AST/SGOT ) 75H, Alanine Aminotransferase (ALT/SGPT) 14, Alkaline Phosphatase 82, C- Reactive Protein, Quantitative 5.2H, Pro-B-Type Natriuretic Peptide 4097H, Total Protein 5.0L, Albumin 1.0L, Globulin 4.0, Albumin/Globulin Ratio 0.2L Height (Feet): 6 Height (Inches): 0.00 Weight (Pounds): 198 General Appearance: lethargic EENT: PERRL/EOMI Neck: normal alignment Respiratory/Chest: no respiratory distress, no accessory muscle use Extremities: normal inspection Skin: normal pigmentation Juan Singh DO Nov 23, 2019 09:25
--- NOTE | 2019-11-23 10:44 | Nephrology Progress Note ---
Assessment/Plan Problem List: (1) ARF (acute renal failure) (2) Hyperkalemia (3) DM (diabetes mellitus) (4) Suspected COVID-19 virus infection (5) Sepsis (6) Severe malnutrition Assessment: Severe hypoalbuminemia Assessment his 74-year-old male with multiple Multiple medical problem presents with respiratory symptoms and diarrhea Renal failure most likely prerenal azotemia secondary to dehydration Hyperkalemia on presentation also secondary to dehydration Sepsis pneumonia hypoxia UTI Anemia History of hypertension History of diabetes mellitus Suspected COVID-19 virus infection Hypoalbuminemia Plan C. difficile positive COVID-19 detected November 22: Patient in ICU. Intubated on ventilator. On low-dose pressors. Urine output labile. Serum creatinine rising. Patient developing acute renal failure. Need urgent dialysis treatment. Will arrange for placement of non- tunneled dialysis catheter as soon as possible. RN states that no family member or next of kin could be contacted at this time. Due to the urgency of the problem and the patient being full code will proceed with placement of dialysis catheter and dialysis treatment as soon as possible. November 21: Patient continues to do poorly. Discussed with RN. Started on Midodrin for BP support. Nephro feeding started. Phosphorus binders started. IV calcium ordered. Continue to monitor renal parameters and urine output. Continue per consultants. Patient remains full code. Per orders. November 20: Serum creatinine continuing to rise. Remains of 100 cc an hour IV fluid. Urine output remains low. Blood pressure also borderline low, on pressors. Continue per consultants. Continue to monitor renal parameters and urine output. Continue to avoid nephrotoxic's. Further deterioration of renal function may lead to dialysis treatment. Will discuss with PMD. November 19: Serum creatinine rising. Urine output decreasing. Will change to IV, D5 normal saline. Will give albumin bolus followed by Lasix 40 mg IV push. Continue to monitor renal parameters and urine output. Continue to avoid nephrotoxic medications as possible. Today's vancomycin level was 22. November 18: Serum creatinine rising. Continues to be full code. Continues to be intubated on ventilator. Remains on IV fluids. Vancomycin levels per pharmacy. Prognosis poor due to sepsis. November 17: Intubated on ventilator in ICU. Will continue half-normal saline 100 cc an hour. Continue per pulmonary and ID. Prognosis poor. Continue to monitor renal parameters. Hydrate with half-normal saline, serum creatinine now at its lowest today. monitor electrolytes Will change the feeding to Nepro and monitor her potassium and other electrolytes Continue per ID Keep the blood pressure and blood sugar in check Monitor renal parameters Previously: Urine studies Monitor intake and output Cultures including stool for C. difficile Per orders Patient's CODE STATUS is full Subjective ROS Limited/Unobtainable: Yes Objective Objective Last 24 Hour Vital Signs Date Time Temp Pulse Resp B/P (MAP) Pulse Ox O2 Delivery O2 Flow Rate FiO2 11/23/19 10:00 87 21 101/46 (64) 99 11/23/19 09:50 100 11/23/19 09:30 90 22 107/48 (67) 99 11/23/19 09:00 83 21 97/44 (61) 99 11/23/19 08:30 78 21 96/46 (63) 99 11/23/19 08:00 Mechanical Ventilator 11/23/19 08:00 99.3 81 21 105/49 (67) 99 11/23/19 08:00 35 11/23/19 07:30 88 22 96/48 (64) 99 11/23/19 07:00 83 24 35 11/23/19 07:00 85 20 98/45 (62) 99 11/23/19 07:00 102/50 11/23/19 06:30 99.0 85 21 94/46 (62) 99 11/23/19 06:15 84 20 102/46 (64) 99 11/23/19 06:00 100/45 11/23/19 06:00 82 21 104/44 (64) 99 11/23/19 05:45 86 22 102/48 (66) 99 11/23/19 05:30 82 21 102/47 (65) 99 11/23/19 05:00 103/46 11/23/19 05:00 86 21 104/46 (65) 99 11/23/19 04:30 80 20 100/45 (63) 99 11/23/19 04:00 Mechanical Ventilator 11/23/19 04:00 99.8 83 20 93/46 (62) 99 11/23/19 04:00 100/49 11/23/19 04:00 83 11/23/19 04:00 35 11/23/19 03:30 84 20 91/45 (60) 98 11/23/19 03:00 96/50 11/23/19 03:00 89 20 83/44 (57) 97 11/23/19 02:46 79 20 35 11/23/19 02:30 80 20 93/37 (55) 97 11/23/19 02:00 80 20 91/39 (56) 98 11/23/19 02:00 95/45 11/23/19 01:30 79 20 99/42 (61) 98 11/23/19 01:00 78 20 90/39 (56) 98 11/23/19 01:00 91/39 11/23/19 00:30 79 20 91/39 (56) 95 11/23/19 00:00 98.2 83 20 90/41 (57) 97 11/23/19 00:00 35 11/23/19 00:00 85 11/23/19 00:00 Mechanical Ventilator 11/23/19 00:00 88/39 11/22/19 23:43 82 20 35 11/22/19 23:30 79 20 88/39 (55) 98 11/22/19 23:00 80 20 91/42 (58) 97 11/22/19 23:00 99/42 11/22/19 22:30 81 20 100/42 (61) 99 11/22/19 22:00 99/39 11/22/19 22:00 83 20 98/45 (62) 97 11/22/19 21:00 82 20 98/48 (65) 97 11/22/19 21:00 100/46 11/22/19 20:30 82 20 103/48 (66) 97 11/22/19 20:09 80 20 35 11/22/19 20:00 Mechanical Ventilator 11/22/19 20:00 81 11/22/19 20:00 35 11/22/19 20:00 98.7 84 20 97/47 (64) 99 11/22/19 20:00 97/47 11/22/19 19:30 82 20 94/46 (62) 98 11/22/19 19:00 79 20 93/47 (62) 98 11/22/19 18:30 79 20 93/45 (61) 99 11/22/19 18:16 93/44 11/22/19 18:04 78 20 84/42 (56) 98 11/22/19 18:00 84/42 11/22/19 17:45 80 20 107/56 (73) 99 11/22/19 17:30 78 20 90/43 (59) 99 11/22/19 17:00 81 20 93/44 (60) 100 11/22/19 16:00 35 11/22/19 16:00 Mechanical Ventilator 11/22/19 16:00 99.2 83 20 92/47 (62) 100 11/22/19 16:00 86 11/22/19 15:00 82 20 101/47 (65) 100 11/22/19 15:00 101/47 11/22/19 14:43 83 20 35 11/22/19 14:30 86 20 101/52 (68) 100 11/22/19 14:00 101/49 11/22/19 14:00 84 20 101/49 (66) 100 11/22/19 13:30 81 20 93/49 (64) 100 11/22/19 13:00 80 20 96/48 (64) 100 11/22/19 13:00 96/48 11/22/19 12:00 83 11/22/19 12:00 84 20 97/52 (67) 100 11/22/19 12:00 97/52 11/22/19 12:00 35 11/22/19 12:00 Mechanical Ventilator 11/22/19 11:00 86 20 98/51 (67) 100 11/22/19 11:00 98/51 11/22/19 11:00 85 24 35 Intake and Output 11/22/19 11/23/19 19:00 07:00 Intake Total 1182.63 ml 1583.08 ml Output Total 50 ml 50 ml Balance 1132.63 ml 1533.08 ml Free Water 80 ml 90 ml IV Total 962.63 ml 1133.08 ml Tube Feeding 140 ml 360 ml Output Urine Total 50 ml 50 ml Laboratory Tests 11/23/19 04:00: White Blood Count 18.6H, Red Blood Count 2.65L, Hemoglobin 7.5L, Hematocrit 21.9L, Mean Corpuscular Volume 83, Mean Corpuscular Hemoglobin 28.2, Mean Corpuscular Hemoglobin Concent 34.2, Red Cell Distribution Width 14.2, Platelet Count 149#L, Mean Platelet Volume 5.4L, Neutrophils (%) (Auto) , Lymphocytes (% ) (Auto) , Monocytes (%) (Auto) , Eosinophils (%) (Auto) , Basophils (%) (Auto) , Differential Total Cells Counted 100, Neutrophils % (Manual) 86H, Lymphocytes % (Manual) 7L, Monocytes % (Manual) 7, Eosinophils % (Manual) 0, Basophils % ( Manual) 0, Band Neutrophils 0, Platelet Estimate DecreasedL, Platelet Morphology Normal, Hypochromasia 3+, Anisocytosis 1+, Sodium Level 134L, Potassium Level 4.7, Chloride Level 106, Carbon Dioxide Level 14L, Anion Gap 15 , Blood Urea Nitrogen 68H, Creatinine 3.7H, Estimat Glomerular Filtration Rate 16.2, Glucose Level 127H, Uric Acid 10.8H, Calcium Level 6.4L, Phosphorus Level 7.8H, Magnesium Level 2.1, Total Bilirubin 0.3, Aspartate Amino Transf (AST/SGOT ) 75H, Alanine Aminotransferase (ALT/SGPT) 14, Alkaline Phosphatase 82, C- Reactive Protein, Quantitative 5.2H, Pro-B-Type Natriuretic Peptide 4097H, Total Protein 5.0L, Albumin 1.0L, Globulin 4.0, Albumin/Globulin Ratio 0.2L Height (Feet): 6 Height (Inches): 0.00 Weight (Pounds): 198 General Appearance: no apparent distress, lethargic EENT: other Cardiovascular: tachycardia Respiratory/Chest: decreased breath sounds Abdomen: distended Objective No other change Ricardo Choudhary MD Nov 23, 2019 10:44
[2019-11-23] MEDS ORDERED: Lidocaine 1% Plain 30 ml INJ PRN (11:15)
[2019-11-23] MEDS ORDERED: Heparin1,000 units/500ml Premix(Conc:2 units/ml) IV ONE (11:15)
[2019-11-23] MEDS ORDERED: Heparin1,000 units/500ml Premix(Conc:2 units/ml) IV PRN (11:15)
--- NOTE | 2019-11-23 11:26 | Pulmonolgy Critical Care Note ---
Critical Care - Asmt/Plan Problems: (1) Acute respiratory failure (2) Cardiac arrest (3) Bacteremia Assessment & Plan: enterocococus fecalis in blood. Proteus and Pseudomonas in sputum. (4) 2019 novel coronavirus disease (COVID-19) (5) ARF (acute renal failure) (6) Aspiration pneumonia (7) Ventricular tachyarrhythmia (8) DM (diabetes mellitus) Respiratory: monitor respiratory rate, adjust FIO2, CXR Cardiac: continue to monitor HR/BP Renal: F/U I&O, check electrolytes Infectious Disease: check cultures, continue antibiotics, other - proteus in sputum Gastrointestinal: continue feedings/current rate Endocrine: monitor blood sugar Hematologic: monitor H/H Neurologic: PRN Ativan Affect: PRN ativan Prophylaxis: Protonix Disposition: keep in ICU Time Spent (Minutes): 40 Notes Reviewed: staff therapist, renal 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, consultants, hospice case managercamp manager - Objective Last 24 Hour Vital Signs Date Time Temp Pulse Resp B/P (MAP) Pulse Ox O2 Delivery O2 Flow Rate FiO2 11/23/19 11:00 105/48 11/23/19 11:00 87 21 105/48 (67) 99 11/23/19 10:30 85 21 104/50 (68) 99 11/23/19 10:00 87 21 101/46 (64) 99 11/23/19 10:00 103/48 11/23/19 09:50 100 11/23/19 09:30 90 22 107/48 (67) 99 11/23/19 09:00 101/46 11/23/19 09:00 83 21 97/44 (61) 99 11/23/19 08:30 78 21 96/46 (63) 99 11/23/19 08:00 Mechanical Ventilator 11/23/19 08:00 98/45 11/23/19 08:00 99.3 81 21 105/49 (67) 99 11/23/19 08:00 35 11/23/19 07:53 79 11/23/19 07:30 88 22 96/48 (64) 99 11/23/19 07:00 83 24 35 11/23/19 07:00 85 20 98/45 (62) 99 11/23/19 07:00 102/50 11/23/19 06:30 99.0 85 21 94/46 (62) 99 11/23/19 06:15 84 20 102/46 (64) 99 11/23/19 06:00 100/45 11/23/19 06:00 82 21 104/44 (64) 99 11/23/19 05:45 86 22 102/48 (66) 99 11/23/19 05:30 82 21 102/47 (65) 99 11/23/19 05:00 103/46 11/23/19 05:00 86 21 104/46 (65) 99 11/23/19 04:30 80 20 100/45 (63) 99 11/23/19 04:00 Mechanical Ventilator 11/23/19 04:00 99.8 83 20 93/46 (62) 99 11/23/19 04:00 100/49 11/23/19 04:00 83 11/23/19 04:00 35 11/23/19 03:30 84 20 91/45 (60) 98 11/23/19 03:00 96/50 11/23/19 03:00 89 20 83/44 (57) 97 11/23/19 02:46 79 20 35 11/23/19 02:30 80 20 93/37 (55) 97 11/23/19 02:00 80 20 91/39 (56) 98 11/23/19 02:00 95/45 11/23/19 01:30 79 20 99/42 (61) 98 11/23/19 01:00 78 20 90/39 (56) 98 11/23/19 01:00 91/39 11/23/19 00:30 79 20 91/39 (56) 95 11/23/19 00:00 98.2 83 20 90/41 (57) 97 11/23/19 00:00 35 11/23/19 00:00 85 11/23/19 00:00 Mechanical Ventilator 11/23/19 00:00 88/39 11/22/19 23:43 82 20 35 11/22/19 23:30 79 20 88/39 (55) 98 11/22/19 23:00 80 20 91/42 (58) 97 11/22/19 23:00 99/42 11/22/19 22:30 81 20 100/42 (61) 99 11/22/19 22:00 99/39 11/22/19 22:00 83 20 98/45 (62) 97 11/22/19 21:00 82 20 98/48 (65) 97 11/22/19 21:00 100/46 11/22/19 20:30 82 20 103/48 (66) 97 11/22/19 20:09 80 20 35 11/22/19 20:00 Mechanical Ventilator 11/22/19 20:00 81 11/22/19 20:00 35 11/22/19 20:00 98.7 84 20 97/47 (64) 99 11/22/19 20:00 97/47 11/22/19 19:30 82 20 94/46 (62) 98 11/22/19 19:00 79 20 93/47 (62) 98 11/22/19 18:30 79 20 93/45 (61) 99 11/22/19 18:16 93/44 11/22/19 18:04 78 20 84/42 (56) 98 11/22/19 18:00 84/42 11/22/19 17:45 80 20 107/56 (73) 99 11/22/19 17:30 78 20 90/43 (59) 99 11/22/19 17:00 81 20 93/44 (60) 100 11/22/19 16:00 35 11/22/19 16:00 Mechanical Ventilator 11/22/19 16:00 99.2 83 20 92/47 (62) 100 11/22/19 16:00 86 11/22/19 15:00 82 20 101/47 (65) 100 11/22/19 15:00 101/47 11/22/19 14:43 83 20 35 11/22/19 14:30 86 20 101/52 (68) 100 11/22/19 14:00 101/49 11/22/19 14:00 84 20 101/49 (66) 100 11/22/19 13:30 81 20 93/49 (64) 100 11/22/19 13:00 80 20 96/48 (64) 100 11/22/19 13:00 96/48 11/22/19 12:00 83 11/22/19 12:00 84 20 97/52 (67) 100 11/22/19 12:00 97/52 11/22/19 12:00 35 11/22/19 12:00 Mechanical Ventilator Status: sedated Condition: critical HEENT: atraumatic Neck: full ROM Heart: HR/BP stable Abdomen: soft Extremities: no C/C/E Critical Care - Subjective ROS Limited/Unobtainable: Yes Condition: critical EKG Rhythm: Sinus Rhythm FI02: 35 Vent Support Breath Rate: 20 Vent Support Mode: AC Vent Tidal Volume: 550 Sputum Amount: Small PEEP: 5.0 PIP: 27 Tube Feeding Amount: 30 I&O: Intake and Output 11/22/19 11/23/19 19:00 07:00 Intake Total 1182.63 ml 1583.08 ml Output Total 50 ml 50 ml Balance 1132.63 ml 1533.08 ml Free Water 80 ml 90 ml IV Total 962.63 ml 1133.08 ml Tube Feeding 140 ml 360 ml Output Urine Total 50 ml 50 ml CXR: extensive RLL infiltrate ET-Tube: 8.0 ET Position: 23 Labs: Laboratory Tests Test 11/23/19 04:00 White Blood Count 18.6 K/UL (4.8-10.8) H Red Blood Count 2.65 M/UL (4.70-6.10) L Hemoglobin 7.5 G/DL (14.2-18.0) L Hematocrit 21.9 % (42.0-52.0) L Mean Corpuscular Volume 83 FL (80-99) Mean Corpuscular Hemoglobin 28.2 PG (27.0-31.0) Mean Corpuscular Hemoglobin Concent 34.2 G/DL (32.0-36.0) Red Cell Distribution Width 14.2 % (11.6-14.8) Platelet Count 149 K/UL (150-450) #L Mean Platelet Volume 5.4 FL (6.5-10.1) L Neutrophils (%) (Auto) % (45.0-75.0) Lymphocytes (%) (Auto) % (20.0-45.0) Monocytes (%) (Auto) % (1.0-10.0) Eosinophils (%) (Auto) % (0.0-3.0) Basophils (%) (Auto) % (0.0-2.0) Differential Total Cells Counted 100 Neutrophils % (Manual) 86 % (45-75) H Lymphocytes % (Manual) 7 % (20-45) L Monocytes % (Manual) 7 % (1-10) Eosinophils % (Manual) 0 % (0-3) Basophils % (Manual) 0 % (0-2) Band Neutrophils 0 % (0-8) Platelet Estimate Decreased L Platelet Morphology Normal Hypochromasia 3+ Anisocytosis 1+ Sodium Level 134 MMOL/L (136-145) L Potassium Level 4.7 MMOL/L (3.5-5.1) Chloride Level 106 MMOL/L (98-107) Carbon Dioxide Level 14 MMOL/L (21-32) L Anion Gap 15 mmol/L (5-15) Blood Urea Nitrogen 68 mg/dL (7-18) H Creatinine 3.7 MG/DL (0.55-1.30) H Estimat Glomerular Filtration Rate 16.2 mL/min (>60) Glucose Level 127 MG/DL (74-106) H Uric Acid 10.8 MG/DL (2.6-7.2) H Calcium Level 6.4 MG/DL (8.5-10.1) L Phosphorus Level 7.8 MG/DL (2.5-4.9) H Magnesium Level 2.1 MG/DL (1.8-2.4) Total Bilirubin 0.3 MG/DL (0.2-1.0) Aspartate Amino Transf (AST/SGOT) 75 U/L (15-37) H Alanine Aminotransferase (ALT/SGPT) 14 U/L (12-78) Alkaline Phosphatase 82 U/L (46-116) C-Reactive Protein, Quantitative 5.2 mg/dL (0.00-0.90) H Pro-B-Type Natriuretic Peptide 4097 pg/mL (0-125) H Total Protein 5.0 G/DL (6.4-8.2) L Albumin 1.0 G/DL (3.4-5.0) L Globulin 4.0 g/dL Albumin/Globulin Ratio 0.2 (1.0-2.7) L Ayana Ndiaye MD Nov 23, 2019 11:26
--- NOTE | 2019-11-23 11:33 | Diagnostic Imaging Report ---
Procedure: XRAY Chest 1v Reason for study: Reason For Exam: [id number] Comparison films: 11/20/2019. FINDINGS: Endotracheal tube remains in place. Vascularity is normal. Right basilar infiltrate unchanged. Cardiac and mediastinal silhouette are within normal limits. There is slight increase of right effusion. The bony thorax appear unremarkable. IMPRESSION: Slight increased right effusion. Right basilar infiltrate again noted.
--- NOTE | 2019-11-23 12:21 | Infectious Diseases Prog Note ---
Assessment/Plan Assessment/Plan Assessment: PEA arrest> unstable SVT s/p cardioversion 11/17 Septic shock- pressors requirements decreasing Fever, recurrent; SP Leukocytosis; worsened, now improving -11/17 u/a no pyuria; ucx neg Bcx NTD sp cx PsA (R Zosyn; S Gentamycin, levaquin, Cefepime, ceftazidime, Meropenem), P. mirabilis ([facility] S) Pneumonia Acute hypoxic resp failure- sp NRB 15L, now VDRF 11/17 - 2ry to COVID19 and superimposed bacterial PNA -11/22 CXR: Slight increased right effusion. Right basilar infiltrate again noted. -11/19 CXR: There is been worsening of moderately consolidating right middle lobe pneumonia. -11/17 CXR: Bilateral lower lobe atelectasis/infiltrates, slightly increased. No large pleural effusions. -11/15 CXR: New/increased infiltrates at the left lateral lung base -11/11 CXR: Mild interstitial thickening is slightly improved. -11/10 CXR: Hazy basilar infiltrates left greater than right. sp cx PsA ([facility] S), P.mirabilis ([facility] S), MRSA (S Vanco CARLOS 1, bactrim; R tetracycline ) -11/10 SARS-COV2 positive UTI c/w bacteremia -u/a wbc 5-10, nit neg, leuk +1, RBC TNCT; ucx 10-20k E. faecalis (S amp, vanco) -11/10 Bcx 2/4 E. faecalis (S Vancomycin, AMP) CONS bacteremia- likely contaminant -11/10 Bcx 2/ S. 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 fecalis bacteremia -monitor platelets -Meropenem #6 -Cont PO Vancomycin 125mg qid #11/14 and add IV Flagyl #9/10-14 for severe Cdiff -11/21 SP IV Vancomycin #12 -6/ SP cefepime #8, Remdesivir #5 -f/u cx -Monitor CBC/CMP, temperature -COVID19 isolation and testing -PEG care -wound care per surgical team -aspiration precautions -f/u repeat Bcx -will need 2d echo later on this admission -poor px -f/u repeat cultures Thank you for consulting [facility]. Will continue to follow along with you. Discussed with RN and pharm Subjective Allergies: Coded Allergies: No Known Allergies (Unverified , 09/16/19) Subjective afebrile >48hrs Fio2 35% wbc improving Cr increasing levo at 4 Objective Vital Signs Last 24 Hour Vital Signs Date Time Temp Pulse Resp B/P (MAP) Pulse Ox O2 Delivery O2 Flow Rate FiO2 11/23/19 11:00 105/48 11/23/19 11:00 87 21 35 11/23/19 11:00 87 21 105/48 (67) 99 11/23/19 10:30 85 21 104/50 (68) 99 11/23/19 10:00 87 21 101/46 (64) 99 11/23/19 10:00 103/48 11/23/19 09:50 100 11/23/19 09:30 90 22 107/48 (67) 99 11/23/19 09:00 101/46 11/23/19 09:00 83 21 97/44 (61) 99 11/23/19 08:30 78 21 96/46 (63) 99 11/23/19 08:00 Mechanical Ventilator 11/23/19 08:00 98/45 11/23/19 08:00 99.3 81 21 105/49 (67) 99 11/23/19 08:00 35 11/23/19 07:53 79 11/23/19 07:30 88 22 96/48 (64) 99 11/23/19 07:00 83 24 35 11/23/19 07:00 85 20 98/45 (62) 99 11/23/19 07:00 102/50 11/23/19 06:30 99.0 85 21 94/46 (62) 99 11/23/19 06:15 84 20 102/46 (64) 99 11/23/19 06:00 100/45 11/23/19 06:00 82 21 104/44 (64) 99 11/23/19 05:45 86 22 102/48 (66) 99 11/23/19 05:30 82 21 102/47 (65) 99 11/23/19 05:00 103/46 11/23/19 05:00 86 21 104/46 (65) 99 11/23/19 04:30 80 20 100/45 (63) 99 11/23/19 04:00 Mechanical Ventilator 11/23/19 04:00 99.8 83 20 93/46 (62) 99 11/23/19 04:00 100/49 11/23/19 04:00 83 11/23/19 04:00 35 11/23/19 03:30 84 20 91/45 (60) 98 11/23/19 03:00 96/50 11/23/19 03:00 89 20 83/44 (57) 97 11/23/19 02:46 79 20 35 11/23/19 02:30 80 20 93/37 (55) 97 11/23/19 02:00 80 20 91/39 (56) 98 11/23/19 02:00 95/45 11/23/19 01:30 79 20 99/42 (61) 98 11/23/19 01:00 78 20 90/39 (56) 98 11/23/19 01:00 91/39 11/23/19 00:30 79 20 91/39 (56) 95 11/23/19 00:00 98.2 83 20 90/41 (57) 97 11/23/19 00:00 35 11/23/19 00:00 85 11/23/19 00:00 Mechanical Ventilator 11/23/19 00:00 88/39 11/22/19 23:43 82 20 35 11/22/19 23:30 79 20 88/39 (55) 98 11/22/19 23:00 80 20 91/42 (58) 97 11/22/19 23:00 99/42 11/22/19 22:30 81 20 100/42 (61) 99 11/22/19 22:00 99/39 11/22/19 22:00 83 20 98/45 (62) 97 11/22/19 21:00 82 20 98/48 (65) 97 11/22/19 21:00 100/46 6/9/20 20:30 82 20 103/48 (66) 97 11/22/19 20:09 80 20 35 11/22/19 20:00 Mechanical Ventilator 11/22/19 20:00 81 11/22/19 20:00 35 11/22/19 20:00 98.7 84 20 97/47 (64) 99 11/22/19 20:00 97/47 11/22/19 19:30 82 20 94/46 (62) 98 11/22/19 19:00 79 20 93/47 (62) 98 11/22/19 18:30 79 20 93/45 (61) 99 11/22/19 18:16 93/44 11/22/19 18:04 78 20 84/42 (56) 98 11/22/19 18:00 84/42 11/22/19 17:45 80 20 107/56 (73) 99 11/22/19 17:30 78 20 90/43 (59) 99 11/22/19 17:00 81 20 93/44 (60) 100 11/22/19 16:00 35 11/22/19 16:00 Mechanical Ventilator 11/22/19 16:00 99.2 83 20 92/47 (62) 100 11/22/19 16:00 86 11/22/19 15:00 82 20 101/47 (65) 100 11/22/19 15:00 101/47 11/22/19 14:43 83 20 35 11/22/19 14:30 86 20 101/52 (68) 100 11/22/19 14:00 101/49 11/22/19 14:00 84 20 101/49 (66) 100 11/22/19 13:30 81 20 93/49 (64) 100 11/22/19 13:00 80 20 96/48 (64) 100 11/22/19 13:00 96/48 Height (Feet): 6 Height (Inches): 0.00 Weight (Pounds): 198 Objective Gen: critically ill HEENT: ETT in place Lungs: no tacypnea or use of accessory muscles Neuro: lethargic Laboratory Tests Test 11/23/19 04:00 White Blood Count 18.6 K/UL (4.8-10.8) H Red Blood Count 2.65 M/UL (4.70-6.10) L Hemoglobin 7.5 G/DL (14.2-18.0) L Hematocrit 21.9 % (42.0-52.0) L Mean Corpuscular Volume 83 FL (80-99) Mean Corpuscular Hemoglobin 28.2 PG (27.0-31.0) Mean Corpuscular Hemoglobin Concent 34.2 G/DL (32.0-36.0) Red Cell Distribution Width 14.2 % (11.6-14.8) Platelet Count 149 K/UL (150-450) #L Mean Platelet Volume 5.4 FL (6.5-10.1) L Neutrophils (%) (Auto) % (45.0-75.0) Lymphocytes (%) (Auto) % (20.0-45.0) Monocytes (%) (Auto) % (1.0-10.0) Eosinophils (%) (Auto) % (0.0-3.0) Basophils (%) (Auto) % (0.0-2.0) Differential Total Cells Counted 100 Neutrophils % (Manual) 86 % (45-75) H Lymphocytes % (Manual) 7 % (20-45) L Monocytes % (Manual) 7 % (1-10) Eosinophils % (Manual) 0 % (0-3) Basophils % (Manual) 0 % (0-2) Band Neutrophils 0 % (0-8) Platelet Estimate Decreased L Platelet Morphology Normal Hypochromasia 3+ Anisocytosis 1+ Sodium Level 134 MMOL/L (136-145) L Potassium Level 4.7 MMOL/L (3.5-5.1) Chloride Level 106 MMOL/L (98-107) Carbon Dioxide Level 14 MMOL/L (21-32) L Anion Gap 15 mmol/L (5-15) Blood Urea Nitrogen 68 mg/dL (7-18) H Creatinine 3.7 MG/DL (0.55-1.30) H Estimat Glomerular Filtration Rate 16.2 mL/min (>60) Glucose Level 127 MG/DL (74-106) H Uric Acid 10.8 MG/DL (2.6-7.2) H Calcium Level 6.4 MG/DL (8.5-10.1) L Phosphorus Level 7.8 MG/DL (2.5-4.9) H Magnesium Level 2.1 MG/DL (1.8-2.4) Total Bilirubin 0.3 MG/DL (0.2-1.0) Aspartate Amino Transf (AST/SGOT) 75 U/L (15-37) H Alanine Aminotransferase (ALT/SGPT) 14 U/L (12-78) Alkaline Phosphatase 82 U/L (46-116) C-Reactive Protein, Quantitative 5.2 mg/dL (0.00-0.90) H Pro-B-Type Natriuretic Peptide 4097 pg/mL (0-125) H Total Protein 5.0 G/DL (6.4-8.2) L Albumin 1.0 G/DL (3.4-5.0) L Globulin 4.0 g/dL Albumin/Globulin Ratio 0.2 (1.0-2.7) L Current Medications Medications (Trade) Dose Ordered Sig/Leonor Route PRN Reason Start Time Stop Time Status Last Admin Dose Admin Acetaminophen (Tylenol) 650 mg Q4H PRN GT fever 11/18/19 03:00 12/11/19 02:59 11/19/19 20:04 Allopurinol (allopurinoL) 300 mg DAILY GT 11/21/19 09:00 12/21/19 08:59 11/23/19 08:33 Calcium Gluconate 1 gm/Sodium Chloride 120 ml @ 240 mls/hr Q12HR IVPB 11/22/19 09:00 12/22/19 08:59 11/23/19 08:34 Chlorhexidine Gluconate (Danielle-Hex 2%) 1 applic DAILY@2000 TOPIC 11/18/19 20:00 02/16/20 19:59 11/22/19 19:58 Dextrose/Sodium Chloride 1,000 ml @ 50 mls/hr Q20H IV 11/22/19 10:15 12/20/19 10:14 11/23/19 05:46 Heparin Sodium (Porcine) (Heparin 5000 units/ml) 5,000 units EVERY 12 HOURS SUBQ 11/18/19 09:00 12/26/19 08:59 11/22/19 20:01 Heparin Sodium/ Sodium Chloride (Heparin 1000 units/500ml Premix) 1,000 unit ONCE PRN IV radiology procedure 11/23/19 11:15 11/25/19 11:14 Lidocaine HCl (Xylocaine 1% 30ml) 30 ml ONCE PRN INJ radiology procedure 11/23/19 11:15 11/25/19 11:14 Linezolid (Zyvox) 600 mg EVERY 12 HOURS ORAL 11/22/19 21:00 11/27/19 20:59 11/23/19 08:32 Lorazepam (Ativan 2mg/ml 1ml) 2 mg Q4H PRN IV For Anxiety 11/18/19 12:10 11/25/19 12:09 11/20/19 03:50 Meropenem 500 mg/ Sodium Chloride 55 ml @ 110 mls/hr Q12HR IV 11/20/19 21:00 11/25/19 20:59 11/23/19 08:35 Metronidazole 100 ml @ 100 mls/hr Q8HR IVPB 11/18/19 06:00 11/24/19 23:59 11/23/19 05:46 Midodrine (Pro-Amatine) 10 mg Q8HR ORAL 11/22/19 14:00 02/20/20 13:59 11/23/19 05:46 Morphine Sulfate (Morphine Sulfate) 4 mg Q4H PRN IVP For Pain 11/18/19 12:10 11/25/19 12:09 Norepinephrine Bitartrate 8 mg/ Dextrose 558 ml @ 0 mls/hr Q24H IV 11/18/19 10:00 12/18/19 09:59 11/22/19 18:16 Ondansetron HCl (Zofran) 4 mg Q6H PRN IVP Nausea & Vomiting 11/18/19 03:00 12/11/19 08:59 Pantoprazole (Protonix) 40 mg DAILY IV 11/19/19 09:00 12/19/19 08:59 11/23/19 08:35 Sevelamer Carbonate (Renvela) 800 mg Q6HR NG 11/22/19 08:00 02/20/20 07:59 11/23/19 05:46 Vancomycin HCl (Firvanq) 125 mg FOUR TIMES A DAY NG 11/18/19 09:00 11/26/19 23:59 11/23/19 08:36 Shannon Mark M.D. Nov 23, 2019 12:21
--- NOTE | 2019-11-23 13:28 | Pre-Procedure Note/Attestation ---
Pre-Procedure Note/Attestation Complete Prior to Procedure Planned Procedure: not applicable Procedure Narrative: dialysis catheter Indications for Procedure Pre-Operative Diagnosis: renal failure Attestation I attest that I discussed the nature of the procedure; its benefits; risks and complications; and alternatives (and the risks and benefits of such alternatives ), prior to the procedure, with the patient (or the patient's legal operations support representative). I attest that, if there was a reasonable possibility of needing a blood transfusion, the patient (or the patient's legal operations support representative) was given the [facility] standardized written summary, pursuant to the Charlie Chadd Blood Safety Act ([place] Health and Safety Code # 1645, as amended). I attest that I re-evaluated the patient just prior to the surgery and that there has been no change in the patient's H&P, except as documented below: Emergency physician consent by Dr. Choudhary on chart dated 11/21. James Bright MD Nov 23, 2019 13:28
--- NOTE | 2019-11-23 14:42 | Surgery Progress Note ---
Surgery Progress Note Subjective Symptoms: worse Objective Last 24 Hour Vital Signs Date Time Temp Pulse Resp B/P (MAP) Pulse Ox O2 Delivery O2 Flow Rate FiO2 11/23/19 14:00 91/47 11/23/19 14:00 92 19 91/47 (62) 99 11/23/19 13:30 89 21 95/49 (64) 99 11/23/19 13:00 94/47 11/23/19 13:00 92 21 93/43 (60) 99 11/23/19 12:30 87 21 102/48 (66) 100 11/23/19 12:00 99.0 87 22 100/48 (65) 99 11/23/19 12:00 Mechanical Ventilator 11/23/19 12:00 102/47 11/23/19 12:00 35 11/23/19 11:47 87 11/23/19 11:30 88 22 104/48 (66) 99 11/23/19 11:00 105/48 11/23/19 11:00 87 21 35 11/23/19 11:00 87 21 105/48 (67) 99 11/23/19 10:30 85 21 104/50 (68) 99 11/23/19 10:00 87 21 101/46 (64) 99 11/23/19 10:00 103/48 11/23/19 09:50 100 11/23/19 09:30 90 22 107/48 (67) 99 11/23/19 09:00 101/46 11/23/19 09:00 83 21 97/44 (61) 99 11/23/19 08:30 78 21 96/46 (63) 99 11/23/19 08:00 Mechanical Ventilator 11/23/19 08:00 98/45 11/23/19 08:00 99.3 81 21 105/49 (67) 99 11/23/19 08:00 35 11/23/19 07:53 79 11/23/19 07:30 88 22 96/48 (64) 99 11/23/19 07:00 83 24 35 11/23/19 07:00 85 20 98/45 (62) 99 11/23/19 07:00 102/50 11/23/19 06:30 99.0 85 21 94/46 (62) 99 11/23/19 06:15 84 20 102/46 (64) 99 11/23/19 06:00 100/45 11/23/19 06:00 82 21 104/44 (64) 99 11/23/19 05:45 86 22 102/48 (66) 99 11/23/19 05:30 82 21 102/47 (65) 99 11/23/19 05:00 103/46 11/23/19 05:00 86 21 104/46 (65) 99 11/23/19 04:30 80 20 100/45 (63) 99 11/23/19 04:00 Mechanical Ventilator 11/23/19 04:00 99.8 83 20 93/46 (62) 99 11/23/19 04:00 100/49 11/23/19 04:00 83 11/23/19 04:00 35 11/23/19 03:30 84 20 91/45 (60) 98 11/23/19 03:00 96/50 11/23/19 03:00 89 20 83/44 (57) 97 11/23/19 02:46 79 20 35 11/23/19 02:30 80 20 93/37 (55) 97 11/23/19 02:00 80 20 91/39 (56) 98 11/23/19 02:00 95/45 11/23/19 01:30 79 20 99/42 (61) 98 11/23/19 01:00 78 20 90/39 (56) 98 11/23/19 01:00 91/39 11/23/19 00:30 79 20 91/39 (56) 95 11/23/19 00:00 98.2 83 20 90/41 (57) 97 11/23/19 00:00 35 11/23/19 00:00 85 11/23/19 00:00 Mechanical Ventilator 11/23/19 00:00 88/39 11/22/19 23:43 82 20 35 11/22/19 23:30 79 20 88/39 (55) 98 11/22/19 23:00 80 20 91/42 (58) 97 11/22/19 23:00 99/42 11/22/19 22:30 81 20 100/42 (61) 99 11/22/19 22:00 99/39 11/22/19 22:00 83 20 98/45 (62) 97 11/22/19 21:00 82 20 98/48 (65) 97 11/22/19 21:00 100/46 11/22/19 20:30 82 20 103/48 (66) 97 11/22/19 20:09 80 20 35 11/22/19 20:00 Mechanical Ventilator 11/22/19 20:00 81 11/22/19 20:00 35 11/22/19 20:00 98.7 84 20 97/47 (64) 99 11/22/19 20:00 97/47 11/22/19 19:30 82 20 94/46 (62) 98 11/22/19 19:00 79 20 93/47 (62) 98 11/22/19 18:30 79 20 93/45 (61) 99 11/22/19 18:16 93/44 11/22/19 18:04 78 20 84/42 (56) 98 11/22/19 18:00 84/42 11/22/19 17:45 80 20 107/56 (73) 99 11/22/19 17:30 78 20 90/43 (59) 99 11/22/19 17:00 81 20 93/44 (60) 100 11/22/19 16:00 35 11/22/19 16:00 Mechanical Ventilator 11/22/19 16:00 99.2 83 20 92/47 (62) 100 11/22/19 16:00 86 11/22/19 15:00 82 20 101/47 (65) 100 11/22/19 15:00 101/47 11/22/19 14:43 83 20 35 I&O Intake and Output 11/22/19 11/23/19 19:00 07:00 Intake Total 1182.63 ml 1583.08 ml Output Total 50 ml 50 ml Balance 1132.63 ml 1533.08 ml Free Water 80 ml 90 ml IV Total 962.63 ml 1133.08 ml Tube Feeding 140 ml 360 ml Output Urine Total 50 ml 50 ml Dressing: saturated Cardiovascular: RSR Respiratory: decreased breath sounds Abdomen: soft, non-tender, present bowel sounds Extremities: no cyanosis Laboratory Tests Test 11/23/19 04:00 White Blood Count 18.6 K/UL (4.8-10.8) H Red Blood Count 2.65 M/UL (4.70-6.10) L Hemoglobin 7.5 G/DL (14.2-18.0) L Hematocrit 21.9 % (42.0-52.0) L Mean Corpuscular Volume 83 FL (80-99) Mean Corpuscular Hemoglobin 28.2 PG (27.0-31.0) Mean Corpuscular Hemoglobin Concent 34.2 G/DL (32.0-36.0) Red Cell Distribution Width 14.2 % (11.6-14.8) Platelet Count 149 K/UL (150-450) #L Mean Platelet Volume 5.4 FL (6.5-10.1) L Neutrophils (%) (Auto) % (45.0-75.0) Lymphocytes (%) (Auto) % (20.0-45.0) Monocytes (%) (Auto) % (1.0-10.0) Eosinophils (%) (Auto) % (0.0-3.0) Basophils (%) (Auto) % (0.0-2.0) Differential Total Cells Counted 100 Neutrophils % (Manual) 86 % (45-75) H Lymphocytes % (Manual) 7 % (20-45) L Monocytes % (Manual) 7 % (1-10) Eosinophils % (Manual) 0 % (0-3) Basophils % (Manual) 0 % (0-2) Band Neutrophils 0 % (0-8) Platelet Estimate Decreased L Platelet Morphology Normal Hypochromasia 3+ Anisocytosis 1+ Sodium Level 134 MMOL/L (136-145) L Potassium Level 4.7 MMOL/L (3.5-5.1) Chloride Level 106 MMOL/L (98-107) Carbon Dioxide Level 14 MMOL/L (21-32) L Anion Gap 15 mmol/L (5-15) Blood Urea Nitrogen 68 mg/dL (7-18) H Creatinine 3.7 MG/DL (0.55-1.30) H Estimat Glomerular Filtration Rate 16.2 mL/min (>60) Glucose Level 127 MG/DL (74-106) H Uric Acid 10.8 MG/DL (2.6-7.2) H Calcium Level 6.4 MG/DL (8.5-10.1) L Phosphorus Level 7.8 MG/DL (2.5-4.9) H Magnesium Level 2.1 MG/DL (1.8-2.4) Total Bilirubin 0.3 MG/DL (0.2-1.0) Aspartate Amino Transf (AST/SGOT) 75 U/L (15-37) H Alanine Aminotransferase (ALT/SGPT) 14 U/L (12-78) Alkaline Phosphatase 82 U/L (46-116) C-Reactive Protein, Quantitative 5.2 mg/dL (0.00-0.90) H Pro-B-Type Natriuretic Peptide 4097 pg/mL (0-125) H Total Protein 5.0 G/DL (6.4-8.2) L Albumin 1.0 G/DL (3.4-5.0) L Globulin 4.0 g/dL Albumin/Globulin Ratio 0.2 (1.0-2.7) L Plan Problems: (1) Decubitus skin ulcer Assessment & Plan: Pt presented on admission with large sacral wound. Base of wound with areas that area purple and indurated sacrococcygeal,L sacrum/L gluteus,Scattered wounds with maceration L gluteus, one wound R sacrum with Biofilm, Surrounding non-blanching erythema entire buttocks. Small dry scabbed area noted to lumbar area. Unstageable Pressure Injury L heel. Base of wound is necrotic with surrounding non-blanching erythema. Tx.plan: Apply Moisture Barrier Paste to Buttocks. Cover Sacrum, R and L gluteal cheeks with Optifoam drsgs. Change every 3 days and prn. Apply Betadine to L heel. Cover with Optifoam drsg. Change every 3 days and prn. Reposition at least every 2hours or as tolerated. Place Pillow between knees. Off-load heels with Pillow. APM/BRUNILDA Mattress overlay. DAILY ESTIMATED NEEDS: Needs based on wt loss, underweight, wound/ 59kg 30-35 kcals/kg 7254-1757 total kcals 1.25-2 g protein/kg 74-118 g total protein 25-30 mL/kg 1872-7660 total fluid mLs NUTRITION DIAGNOSIS: * Increased kcal/prot intake needs R/T wound healing, suspected recent significant wt loss as evidenced by admitted w/ wounds @ lt posterior heel, R lower back, sacrum as per photos, pending eval, suspected significant wt loss of 40lbs/ 23.7% in <5 months, currently @ 81% IBW. . * Swallowing difficulty R/T dysphagia, h/o CVA as evidenced by PEG dependent. CURRENT TF:Glucerna 1.2 @65ml/hr x24 hrs ENTERAL NUTRITION RECOMMENDATIONS: NEPRO @45ml/hr x24 hrs to provide 1080ml, 1944 kcal, 87g pro, 785ml free H2O - Rec TF change for lower K content (1145mg in Nepro @45 vs 3151mg in Glucerna 1.2 @65) - Start at 25ml/hr advance as tolerated 10ml/hr q4-6 hrs - HOB over 30 degrees - Increased H20 flush to 200ml q4 hrs ADDITIONAL RECOMMENDATIONS: 1) Calibrated bedscale wt -> per SNF: HT=59" and QO=545ocy (10/20/19) 2) Wound healing: Add Vit C 500mg QD/ or dosing per nephro Add Osbaldo BID via PEG w/ TF order 3) Monitor lytes: monitor K trend, need for renal TF (K 5.3, 5.5) 4) NISS w/ TF (h/o DM) 5) Monitor for diarrhea, rec probiotics (2) Sepsis Assessment & Plan: 74-year-old male multi-medical comorbidities admitted for respiratory deficiency currently tachypneic, leukocytosis, malnutrition, hypoalbuminemia. Complete physical exam performed identified areas of concerned given patient's comorbidities current condition high risk for deteriorationNo active infection identified from patient's wounds and likely respiratory nature. Chest x-ray reviewed. No acute surgical intervention planned at this time Preventive measures IV antibiotics per infectious disease Okay for feeding once stable respiratory Appreciate Pulm input c diff positive on vanco blood cx noted worsening leukocytosis ID abx noted heme input noted There are increasing basilar opacities on the left noted. The heart size is normal. The pleural spaces are clear. 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
--- NOTE | 2019-11-23 15:49 | Brief Operative Note ---
Immediate Post Operative Note Operative Note Pre-op Diagnosis: renal failure Procedure: R ESTELLA fragoso Post-op Diagnosis: same as pre-op Surgeon: Silvia Bright Anesthesia: local Specimen: none Complications: none Fluids: none Implant(s) used?: No James Bright MD Nov 23, 2019 15:49
--- NOTE | 2019-11-23 16:06 | Diagnostic Imaging Report ---
Indication: Acute renal failure Technique: Procedure performed at bedside. Procedural timeout performed. Total sterile technique, including sterile probe cover and sterile gel, sterile gloves, hand hygiene, hat, mask, sterile gown, large sterile drape, and preparation with 2% chlorhexidine utilized. Local anesthesia with 1% lidocaine. Under real-time ultrasound guidance, puncture right internal jugular vein using 21-gauge micropuncture needle, passage 108 guidewire, insertion 4 Estonian micropuncture introducer,, passage 0.035 guidewire, over which was passed serial dilators and then a 13 Estonian 15 cm triple-lumen temporary dialysis catheter. Guidewire was removed. Catheter ports were aspirated and flushed. The catheter was fixed to the skin. Patient tolerated procedure well. A chest x-ray was obtained, documents catheter tip position at the mid superior vena cava. Comparison: none Findings: As above Impression: Successful bedside placement of right transjugular temporary dialysis catheter, as described.
[2019-11-23] MEDS: Dyna-Hex 2% Top Sol 2oz TOPIC SCH (20:24)
[2019-11-23] MEDS: Norepinephrine Bitartrate 8 MG in D5W 500ml 550 ML IV SCH (22:22)
[2019-11-24] VITALS (58 sets, daily range): BP systolic 95–124; BP diastolic 45–62
[2019-11-24] MEDS: Renvela 800mg Pkt NG SCH ×4 (00:19→17:53)
[2019-11-24 04:58] LABS: HEMATOCRIT 25.8 % (42.0-52.0); HEMOGLOBIN 9.1 G/DL (14.2-18.0); MEAN CORPUSCULAR VOLUME 82 FL (80-99); PLATELET COUNT 310 K/UL (150-450); RED BLOOD COUNT 3.14 M/UL (4.70-6.10)
[2019-11-24 05:49] LABS: ALANINE AMINOTRANSFERASE 7 U/L (12-78); ALBUMIN 0.9 G/DL (3.4-5.0); ALBUMIN/GLOBULIN RATIO 0.2 (1.0-2.7); ALKALINE PHOSPHATASE 75 U/L (46-116); ANION GAP 13 mmol/L (5-15); ASPARTATE AMINO TRANSFERASE 46 U/L (15-37); BILIRUBIN,TOTAL 0.4 MG/DL (0.2-1.0); BLOOD UREA NITROGEN 51 mg/dL (7-18); CALCIUM 6.5 MG/DL (8.5-10.1); CARBON DIOXIDE 18 MMOL/L (21-32); CHLORIDE 105 MMOL/L (98-107); CREATININE 3.1 MG/DL (0.55-1.30); PHOSPHORUS 7.6 MG/DL (2.5-4.9); POTASSIUM 3.6 MMOL/L (3.5-5.1); SODIUM 136 MMOL/L (136-145)
[2019-11-24 05:55] LABS: WHITE BLOOD COUNT 27.4 K/UL (4.8-10.8)
[2019-11-24] MEDS: Midodrine 10mg tab ORAL SCH ×3 (06:28→21:23)
[2019-11-24] MEDS: D5NS 1,000 ML IV SCH ×2 (06:28→22:15)
[2019-11-24] MEDS: Calcium Gluconate 10% 1 GM in NS 110 ML IVPB SCH ×2 (08:15→21:13)
[2019-11-24] MEDS: Meropenem 500 MG in NS 55 ML IV SCH (08:16)
[2019-11-24] MEDS: Pantoprazole Inj IV SCH (08:16)
[2019-11-24] MEDS: Heparin 5000 units/ml inj SUBQ SCH ×2 (08:17→21:14)
[2019-11-24] MEDS: Vancomycin oral 125mg/2.5ml NG SCH ×4 (08:18→21:23)
--- NOTE | 2019-11-24 10:49 | Diagnostic Imaging Report ---
Indication: Dyspnea Technique: One view of the chest Comparison: 11/23/2019 Findings: Right mid and lower lung infiltrate and possible pleural fluid is unchanged. Stable satisfactory positions of endotracheal tube and right jugular temporary dialysis catheter. Normal heart size. No significant change Impression: Unchanged, over one day, findings as above.
--- NOTE | 2019-11-24 11:02 | Pulmonolgy Critical Care Note ---
Critical Care - Asmt/Plan Problems: (1) Acute respiratory failure (2) Cardiac arrest (3) Bacteremia Assessment & Plan: enterocococus fecalis in blood. Proteus and Pseudomonas in sputum. 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, 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, 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, consultants, occupational therapist rehab managerrehab manager - Objective Last 24 Hour Vital Signs Date Time Temp Pulse Resp B/P (MAP) Pulse Ox O2 Delivery O2 Flow Rate FiO2 11/24/19 07:06 70 20 35 11/24/19 07:00 70 20 110/55 (73) 100 11/24/19 06:30 71 20 107/53 (71) 100 11/24/19 06:00 71 21 103/53 (70) 99 11/24/19 06:00 107/53 11/24/19 05:30 72 20 105/53 (70) 100 11/24/19 05:00 105/53 11/24/19 05:00 72 20 103/49 (67) 100 11/24/19 04:30 76 20 106/51 (69) 100 11/24/19 04:00 93 11/24/19 04:00 35 11/24/19 04:00 106/51 11/24/19 04:00 98.0 79 20 100/49 (66) 100 11/24/19 04:00 Mechanical Ventilator 11/24/19 03:30 77 21 95/47 (63) 96 11/24/19 03:15 71 20 35 11/24/19 03:00 108/50 11/24/19 03:00 72 20 103/50 (67) 98 11/24/19 02:30 71 20 108/50 (69) 100 11/24/19 02:00 115/60 11/24/19 02:00 71 20 106/49 (68) 100 11/24/19 01:30 72 20 103/51 (68) 100 11/24/19 01:00 74 20 102/50 (67) 100 11/24/19 01:00 103/51 11/24/19 00:30 75 20 100/49 (66) 100 11/24/19 00:00 75 11/24/19 00:00 35 11/24/19 00:00 100/49 11/24/19 00:00 Mechanical Ventilator 11/24/19 00:00 99.0 78 20 117/60 (79) 100 11/23/19 23:30 77 20 107/53 (71) 100 11/23/19 23:20 76 20 35 11/23/19 23:00 82 20 116/60 (78) 100 11/23/19 23:00 107/53 11/23/19 22:30 81 20 119/57 (77) 100 11/23/19 22:22 118/59 11/23/19 22:00 119/57 11/23/19 22:00 81 20 118/59 (78) 100 11/23/19 21:30 83 20 109/59 (76) 100 11/23/19 21:00 87 20 131/62 (85) 100 11/23/19 21:00 127/63 11/23/19 20:30 85 23 112/60 (77) 100 11/23/19 20:00 99.0 83 22 99/50 (66) 99 11/23/19 20:00 99/50 11/23/19 20:00 Mechanical Ventilator 11/23/19 19:45 83 23 112/45 (67) 100 11/23/19 19:40 77 22 35 11/23/19 19:30 85 22 120/53 (75) 100 11/23/19 19:00 85 21 140/59 (86) 97 11/23/19 18:30 90 22 97/53 (68) 100 11/23/19 18:00 90/44 11/23/19 18:00 77 21 90/44 (59) 99 11/23/19 17:30 81 22 97/46 (63) 100 11/23/19 17:00 94 20 90/50 (63) 100 11/23/19 17:00 90/50 11/23/19 16:59 86 11/23/19 16:30 98.0 76 21 99/50 (66) 100 11/23/19 16:00 Mechanical Ventilator 11/23/19 16:00 81 20 97/49 (65) 100 11/23/19 16:00 77 22 108/52 (70) 100 11/23/19 16:00 35 11/23/19 16:00 108/52 11/23/19 15:30 81 13 108/57 (74) 100 11/23/19 15:00 81 20 97/49 (65) 100 11/23/19 15:00 108/53 11/23/19 15:00 81 22 35 11/23/19 14:45 85 15 97/49 (65) 100 11/23/19 14:30 80 20 91/47 (62) 100 11/23/19 14:00 91/47 11/23/19 14:00 92 19 91/47 (62) 99 11/23/19 13:30 89 21 95/49 (64) 99 11/23/19 13:00 94/47 11/23/19 13:00 92 21 93/43 (60) 99 11/23/19 12:30 87 21 102/48 (66) 100 11/23/19 12:00 99.0 87 22 100/48 (65) 99 11/23/19 12:00 Mechanical Ventilator 11/23/19 12:00 102/47 11/23/19 12:00 35 11/23/19 11:47 87 11/23/19 11:30 88 22 104/48 (66) 99 Status: awake Condition: improving HEENT: normocephalic Neck: full ROM Lungs: clear, chest wall tender Heart: HR/BP stable Abdomen: soft, active bowel sounds, feeding tube Extremities: no C/C/E Critical Care - Subjective ROS Limited/Unobtainable: Yes Condition: critical EKG Rhythm: Sinus Rhythm FI02: 35 Vent Support Breath Rate: 20 Vent Support Mode: AC Vent Tidal Volume: 550 Sputum Amount: Moderate PEEP: 5.0 PIP: 26 Tube Feeding Amount: 35 I&O: Intake and Output 11/23/19 11/24/19 19:00 07:00 Intake Total 1429.14 ml 1512.09 ml Output Total 135 ml 1310 ml Balance 1294.14 ml 202.09 ml Free Water 50 ml IV Total 1009.14 ml 1077.09 ml Tube Feeding 320 ml 385 ml Other 100 ml Output Urine Total 35 ml 10 ml Stool Total 100 ml 300 ml Hemodialysis UF 1000 ml CXR: ET in good position ET-Tube: 8.0 ET Position: 23 Labs: Laboratory Tests Test 11/24/19 04:05 11/24/19 08:00 White Blood Count 27.4 K/UL (4.8-10.8) *H Red Blood Count 3.14 M/UL (4.70-6.10) L Hemoglobin 9.1 G/DL (14.2-18.0) L Hematocrit 25.8 % (42.0-52.0) L Mean Corpuscular Volume 82 FL (80-99) Mean Corpuscular Hemoglobin 28.9 PG (27.0-31.0) Mean Corpuscular Hemoglobin Concent 35.3 G/DL (32.0-36.0) Red Cell Distribution Width 14.0 % (11.6-14.8) Platelet Count 310 K/UL (150-450) # Mean Platelet Volume 6.2 FL (6.5-10.1) L Neutrophils (%) (Auto) % (45.0-75.0) Lymphocytes (%) (Auto) % (20.0-45.0) Monocytes (%) (Auto) % (1.0-10.0) Eosinophils (%) (Auto) % (0.0-3.0) Basophils (%) (Auto) % (0.0-2.0) Differential Total Cells Counted 100 Neutrophils % (Manual) 97 % (45-75) H Lymphocytes % (Manual) 2 % (20-45) L Monocytes % (Manual) 1 % (1-10) Eosinophils % (Manual) 0 % (0-3) Basophils % (Manual) 0 % (0-2) Band Neutrophils 0 % (0-8) Platelet Estimate Adequate Platelet Morphology Normal Hypochromasia 2+ Anisocytosis 1+ Spherocytes 1+ Sodium Level 136 MMOL/L (136-145) Potassium Level 3.6 MMOL/L (3.5-5.1) Chloride Level 105 MMOL/L (98-107) Carbon Dioxide Level 18 MMOL/L (21-32) L Anion Gap 13 mmol/L (5-15) Blood Urea Nitrogen 51 mg/dL (7-18) H Creatinine 3.1 MG/DL (0.55-1.30) H Estimat Glomerular Filtration Rate 19.9 mL/min (>60) Glucose Level 192 MG/DL (74-106) H Uric Acid 8.0 MG/DL (2.6-7.2) H Calcium Level 6.5 MG/DL (8.5-10.1) L Phosphorus Level 7.6 MG/DL (2.5-4.9) H Magnesium Level 2.1 MG/DL (1.8-2.4) Total Bilirubin 0.4 MG/DL (0.2-1.0) Aspartate Amino Transf (AST/SGOT) 46 U/L (15-37) H Alanine Aminotransferase (ALT/SGPT) 7 U/L (12-78) L Alkaline Phosphatase 75 U/L (46-116) C-Reactive Protein, Quantitative 5.3 mg/dL (0.00-0.90) H Total Protein 4.7 G/DL (6.4-8.2) L Albumin 0.9 G/DL (3.4-5.0) L Globulin 3.8 g/dL Albumin/Globulin Ratio 0.2 (1.0-2.7) L Arterial Blood pH 7.282 (7.350-7.450) Arterial Blood Partial Pressure CO2 34.2 mmHg (35.0-45.0) L Arterial Blood Partial Pressure O2 104.5 mmHg (75.0-100.0) H Arterial Blood HCO3 15.8 mmol/L (22.0-26.0) *L Arterial Blood Oxygen Saturation 97.3 % (95-100) Arterial Blood Base Excess -10 (-2-2) *L Michael Test Positive Ayana Ndiaye MD Nov 24, 2019 11:02
--- NOTE | 2019-11-24 11:19 | Nephrology Progress Note ---
Assessment/Plan Problem List: (1) ARF (acute renal failure) (2) Hyperkalemia (3) DM (diabetes mellitus) (4) Suspected COVID-19 virus infection (5) Sepsis (6) Severe malnutrition Assessment: Severe hypoalbuminemia Assessment his 74-year-old male with multiple Multiple medical problem presents with respiratory symptoms and diarrhea Renal failure most likely prerenal azotemia secondary to dehydration Hyperkalemia on presentation also secondary to dehydration Sepsis pneumonia hypoxia UTI Anemia History of hypertension History of diabetes mellitus Suspected COVID-19 virus infection Hypoalbuminemia Plan C. difficile positive COVID-19 detected November 23: Patient was dialyzed yesterday. Labs reviewed. Status quo. Remains full code. Will arrange for dialysis tomorrow. November 22: Patient in ICU. Intubated on ventilator. On low-dose pressors. Urine output labile. Serum creatinine rising. Patient developing acute renal failure. Need urgent dialysis treatment. Will arrange for placement of non- tunneled dialysis catheter as soon as possible. RN states that no family member or next of kin could be contacted at this time. Due to the urgency of the problem and the patient being full code will proceed with placement of dialysis catheter and dialysis treatment as soon as possible. November 21: Patient continues to do poorly. Discussed with RN. Started on Midodrin for BP support. Nephro feeding started. Phosphorus binders started. IV calcium ordered. Continue to monitor renal parameters and urine output. Continue per consultants. Patient remains full code. Per orders. November 20: Serum creatinine continuing to rise. Remains of 100 cc an hour IV fluid. Urine output remains low. Blood pressure also borderline low, on pressors. Continue per consultants. Continue to monitor renal parameters and urine output. Continue to avoid nephrotoxic's. Further deterioration of renal function may lead to dialysis treatment. Will discuss with PMD. November 19: Serum creatinine rising. Urine output decreasing. Will change to IV, D5 normal saline. Will give albumin bolus followed by Lasix 40 mg IV push. Continue to monitor renal parameters and urine output. Continue to avoid nephrotoxic medications as possible. Today's vancomycin level was 22. November 18: Serum creatinine rising. Continues to be full code. Continues to be intubated on ventilator. Remains on IV fluids. Vancomycin levels per pharmacy. Prognosis poor due to sepsis. November 17: Intubated on ventilator in ICU. Will continue half-normal saline 100 cc an hour. Continue per pulmonary and ID. Prognosis poor. Continue to monitor renal parameters. Hydrate with half-normal saline, serum creatinine now at its lowest today. monitor electrolytes Will change the feeding to Nepro and monitor her potassium and other electrolytes Continue per ID Keep the blood pressure and blood sugar in check Monitor renal parameters Previously: Urine studies Monitor intake and output Cultures including stool for C. difficile Per orders Patient's CODE STATUS is full Subjective ROS Limited/Unobtainable: Yes Objective Objective Last 24 Hour Vital Signs Date Time Temp Pulse Resp B/P (MAP) Pulse Ox O2 Delivery O2 Flow Rate FiO2 11/24/19 07:06 70 20 35 11/24/19 07:00 70 20 110/55 (73) 100 11/24/19 06:30 71 20 107/53 (71) 100 11/24/19 06:00 71 21 103/53 (70) 99 11/24/19 06:00 107/53 11/24/19 05:30 72 20 105/53 (70) 100 11/24/19 05:00 105/53 11/24/19 05:00 72 20 103/49 (67) 100 11/24/19 04:30 76 20 106/51 (69) 100 11/24/19 04:00 93 11/24/19 04:00 35 11/24/19 04:00 106/51 11/24/19 04:00 98.0 79 20 100/49 (66) 100 11/24/19 04:00 Mechanical Ventilator 11/24/19 03:30 77 21 95/47 (63) 96 11/24/19 03:15 71 20 35 11/24/19 03:00 108/50 11/24/19 03:00 72 20 103/50 (67) 98 11/24/19 02:30 71 20 108/50 (69) 100 11/24/19 02:00 115/60 11/24/19 02:00 71 20 106/49 (68) 100 11/24/19 01:30 72 20 103/51 (68) 100 11/24/19 01:00 74 20 102/50 (67) 100 11/24/19 01:00 103/51 11/24/19 00:30 75 20 100/49 (66) 100 11/24/19 00:00 75 11/24/19 00:00 35 11/24/19 00:00 100/49 11/24/19 00:00 Mechanical Ventilator 11/24/19 00:00 99.0 78 20 117/60 (79) 100 11/23/19 23:30 77 20 107/53 (71) 100 11/23/19 23:20 76 20 35 11/23/19 23:00 82 20 116/60 (78) 100 11/23/19 23:00 107/53 11/23/19 22:30 81 20 119/57 (77) 100 11/23/19 22:22 118/59 11/23/19 22:00 119/57 11/23/19 22:00 81 20 118/59 (78) 100 11/23/19 21:30 83 20 109/59 (76) 100 11/23/19 21:00 87 20 131/62 (85) 100 11/23/19 21:00 127/63 11/23/19 20:30 85 23 112/60 (77) 100 11/23/19 20:00 99.0 83 22 99/50 (66) 99 11/23/19 20:00 99/50 11/23/19 20:00 Mechanical Ventilator 11/23/19 19:45 83 23 112/45 (67) 100 11/23/19 19:40 77 22 35 11/23/19 19:30 85 22 120/53 (75) 100 11/23/19 19:00 85 21 140/59 (86) 97 11/23/19 18:30 90 22 97/53 (68) 100 11/23/19 18:00 90/44 11/23/19 18:00 77 21 90/44 (59) 99 11/23/19 17:30 81 22 97/46 (63) 100 11/23/19 17:00 94 20 90/50 (63) 100 11/23/19 17:00 90/50 11/23/19 16:59 86 11/23/19 16:30 98.0 76 21 99/50 (66) 100 11/23/19 16:00 Mechanical Ventilator 11/23/19 16:00 81 20 97/49 (65) 100 11/23/19 16:00 77 22 108/52 (70) 100 11/23/19 16:00 35 11/23/19 16:00 108/52 11/23/19 15:30 81 13 108/57 (74) 100 11/23/19 15:00 81 20 97/49 (65) 100 11/23/19 15:00 108/53 11/23/19 15:00 81 22 35 11/23/19 14:45 85 15 97/49 (65) 100 11/23/19 14:30 80 20 91/47 (62) 100 11/23/19 14:00 91/47 11/23/19 14:00 92 19 91/47 (62) 99 11/23/19 13:30 89 21 95/49 (64) 99 11/23/19 13:00 94/47 11/23/19 13:00 92 21 93/43 (60) 99 11/23/19 12:30 87 21 102/48 (66) 100 11/23/19 12:00 99.0 87 22 100/48 (65) 99 11/23/19 12:00 Mechanical Ventilator 11/23/19 12:00 102/47 11/23/19 12:00 35 11/23/19 11:47 87 11/23/19 11:30 88 22 104/48 (66) 99 Intake and Output 11/23/19 11/24/19 19:00 07:00 Intake Total 1429.14 ml 1512.09 ml Output Total 135 ml 1310 ml Balance 1294.14 ml 202.09 ml Free Water 50 ml IV Total 1009.14 ml 1077.09 ml Tube Feeding 320 ml 385 ml Other 100 ml Output Urine Total 35 ml 10 ml Stool Total 100 ml 300 ml Hemodialysis UF 1000 ml Laboratory Tests 11/24/19 04:05: White Blood Count 27.4*H, Red Blood Count 3.14L, Hemoglobin 9.1L, Hematocrit 25.8L, Mean Corpuscular Volume 82, Mean Corpuscular Hemoglobin 28.9, Mean Corpuscular Hemoglobin Concent 35.3, Red Cell Distribution Width 14.0, Platelet Count 310#, Mean Platelet Volume 6.2L, Neutrophils (%) (Auto) , Lymphocytes (%) (Auto) , Monocytes (%) (Auto) , Eosinophils (%) (Auto) , Basophils (%) (Auto) , Differential Total Cells Counted 100, Neutrophils % (Manual) 97H, Lymphocytes % (Manual) 2L, Monocytes % (Manual) 1, Eosinophils % (Manual) 0, Basophils % ( Manual) 0, Band Neutrophils 0, Platelet Estimate Adequate, Platelet Morphology Normal, Hypochromasia 2+, Anisocytosis 1+, Spherocytes 1+, Sodium Level 136, Potassium Level 3.6, Chloride Level 105, Carbon Dioxide Level 18L, Anion Gap 13 , Blood Urea Nitrogen 51H, Creatinine 3.1H, Estimat Glomerular Filtration Rate 19.9, Glucose Level 192H, Uric Acid 8.0H, Calcium Level 6.5L, Phosphorus Level 7.6H, Magnesium Level 2.1, Total Bilirubin 0.4, Aspartate Amino Transf (AST/SGOT ) 46H, Alanine Aminotransferase (ALT/SGPT) 7L, Alkaline Phosphatase 75, C- Reactive Protein, Quantitative 5.3H, Total Protein 4.7L, Albumin 0.9L, Globulin 3.8, Albumin/Globulin Ratio 0.2L 11/24/19 08:00: Arterial Blood pH 7.282L, Arterial Blood Partial Pressure CO2 34.2L, Arterial Blood Partial Pressure O2 104.5H, Arterial Blood HCO3 15.8*L, Arterial Blood Oxygen Saturation 97.3, Arterial Blood Base Excess -10*L, Michael Test Positive Height (Feet): 6 Height (Inches): 0.00 Weight (Pounds): 185 General Appearance: no apparent distress EENT: other - Intubated on mechanical ventilation. Respiratory/Chest: decreased breath sounds Abdomen: soft Objective No other change Ricardo Choudhary MD Nov 24, 2019 11:19
--- NOTE | 2019-11-24 11:49 | Infectious Diseases Prog Note ---
Assessment/Plan Assessment/Plan Assessment: PEA arrest> unstable SVT s/p cardioversion 11/17 Septic shock- pressors requirements decreasing Fever, recurrent; SP Leukocytosis; worsening again -11/17 u/a no pyuria; ucx neg Bcx Neg sp cx PsA (R Zosyn; S Gentamycin, levaquin, Cefepime, ceftazidime, Meropenem), P. mirabilis ([facility] S) Pneumonia Acute hypoxic resp failure- sp NRB 15L, now VDRF 11/17 - 2ry to COVID19 and superimposed bacterial PNA -11/22 CXR: Slight increased right effusion. Right basilar infiltrate again noted. -11/19 CXR: There is been worsening of moderately consolidating right middle lobe pneumonia. -11/17 CXR: Bilateral lower lobe atelectasis/infiltrates, slightly increased. No large pleural effusions. -11/15 CXR: New/increased infiltrates at the left lateral lung base -11/11 CXR: Mild interstitial thickening is slightly improved. -11/10 CXR: Hazy basilar infiltrates left greater than right. sp cx PsA ([facility] S), P.mirabilis ([facility] S), MRSA (S Vanco CARLOS 1, bactrim; R tetracycline ) -11/10 SARS-COV2 positive UTI c/w bacteremia -u/a wbc 5-10, nit neg, leuk +1, RBC TNCT; ucx 10-20k E. faecalis (S amp, vanco) -11/10 Bcx 2/4 E. faecalis (S Vancomycin, AMP) CONS bacteremia- likely contaminant -11/10 Bcx 2/4 S. 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 fecalis bacteremia -monitor platelets -Switch Meropenem #7 to cefepime -Cont PO Vancomycin 125mg qid #05/28 and add IV Flagyl #10/-14 for severe Cdiff -/ SP IV Vancomycin #12 -6/ SP cefepime #8, Remdesivir #5 -f/u cx -Monitor CBC/CMP, temperature -COVID19 isolation and testing -PEG care -wound care per surgical team -aspiration precautions -will need 2d echo later on this admission -poor px -f/u repeat cultures Thank you for consulting [facility]. Will continue to follow along with you. Discussed with RN and pharm Subjective Allergies: Coded Allergies: No Known Allergies (Unverified , 09/16/19) Subjective afebrile Fio2 35% wbc increased again to 27 levo at 4 Objective Vital Signs Last 24 Hour Vital Signs Date Time Temp Pulse Resp B/P (MAP) Pulse Ox O2 Delivery O2 Flow Rate FiO2 11/24/19 11:00 71 20 114/56 (75) 100 11/24/19 11:00 114/56 11/24/19 10:30 72 20 110/52 (71) 100 11/24/19 10:00 73 20 109/53 (71) 98 11/24/19 10:00 109/53 11/24/19 09:30 68 20 100/50 (67) 100 11/24/19 09:00 115/56 11/24/19 09:00 68 20 100/50 (67) 100 11/24/19 08:45 69 20 115/56 (75) 100 11/24/19 08:30 68 20 119/56 (77) 100 11/24/19 08:15 68 20 113/55 (74) 100 11/24/19 08:00 113/55 11/24/19 08:00 98.0 68 20 113/55 (74) 100 11/24/19 07:06 70 20 35 11/24/19 07:00 70 20 110/55 (73) 100 11/24/19 07:00 108/54 11/24/19 06:30 71 20 107/53 (71) 100 11/24/19 06:00 71 21 103/53 (70) 99 11/24/19 06:00 107/53 11/24/19 05:30 72 20 105/53 (70) 100 11/24/19 05:00 105/53 11/24/19 05:00 72 20 103/49 (67) 100 11/24/19 04:30 76 20 106/51 (69) 100 11/24/19 04:00 93 11/24/19 04:00 35 11/24/19 04:00 106/51 11/24/19 04:00 98.0 79 20 100/49 (66) 100 11/24/19 04:00 Mechanical Ventilator 11/24/19 03:30 77 21 95/47 (63) 96 11/24/19 03:15 71 20 35 11/24/19 03:00 108/50 11/24/19 03:00 72 20 103/50 (67) 98 11/24/19 02:30 71 20 108/50 (69) 100 11/24/19 02:00 115/60 11/24/19 02:00 71 20 106/49 (68) 100 11/24/19 01:30 72 20 103/51 (68) 100 11/24/19 01:00 74 20 102/50 (67) 100 11/24/19 01:00 103/51 11/24/19 00:30 75 20 100/49 (66) 100 11/24/19 00:00 75 11/24/19 00:00 35 11/24/19 00:00 100/49 11/24/19 00:00 Mechanical Ventilator 11/24/19 00:00 99.0 78 20 117/60 (79) 100 11/23/19 23:30 77 20 107/53 (71) 100 11/23/19 23:20 76 20 35 11/23/19 23:00 82 20 116/60 (78) 100 11/23/19 23:00 107/53 11/23/19 22:30 81 20 119/57 (77) 100 11/23/19 22:22 118/59 11/23/19 22:00 119/57 11/23/19 22:00 81 20 118/59 (78) 100 11/23/19 21:30 83 20 109/59 (76) 100 11/23/19 21:00 87 20 131/62 (85) 100 11/23/19 21:00 127/63 11/23/19 20:30 85 23 112/60 (77) 100 11/23/19 20:00 99.0 83 22 99/50 (66) 99 11/23/19 20:00 99/50 11/23/19 20:00 Mechanical Ventilator 11/23/19 19:45 83 23 112/45 (67) 100 11/23/19 19:40 77 22 35 11/23/19 19:30 85 22 120/53 (75) 100 11/23/19 19:00 85 21 140/59 (86) 97 11/23/19 18:30 90 22 97/53 (68) 100 11/23/19 18:00 90/44 11/23/19 18:00 77 21 90/44 (59) 99 11/23/19 17:30 81 22 97/46 (63) 100 11/23/19 17:00 94 20 90/50 (63) 100 11/23/19 17:00 90/50 11/23/19 16:59 86 11/23/19 16:30 98.0 76 21 99/50 (66) 100 11/23/19 16:00 Mechanical Ventilator 11/23/19 16:00 81 20 97/49 (65) 100 11/23/19 16:00 77 22 108/52 (70) 100 11/23/19 16:00 35 11/23/19 16:00 108/52 11/23/19 15:30 81 13 108/57 (74) 100 11/23/19 15:00 81 20 97/49 (65) 100 11/23/19 15:00 108/53 11/23/19 15:00 81 22 35 11/23/19 14:45 85 15 97/49 (65) 100 11/23/19 14:30 80 20 91/47 (62) 100 11/23/19 14:00 91/47 11/23/19 14:00 92 19 91/47 (62) 99 11/23/19 13:30 89 21 95/49 (64) 99 11/23/19 13:00 94/47 11/23/19 13:00 92 21 93/43 (60) 99 11/23/19 12:30 87 21 102/48 (66) 100 11/23/19 12:00 99.0 87 22 100/48 (65) 99 11/23/19 12:00 Mechanical Ventilator 11/23/19 12:00 102/47 11/23/19 12:00 35 11/23/19 11:47 87 Height (Feet): 6 Height (Inches): 0.00 Weight (Pounds): 185 Objective Gen: critically ill HEENT: ETT in place Lungs: no tacypnea or use of accessory muscles Neuro: lethargic Laboratory Tests Test 11/24/19 04:05 11/24/19 08:00 White Blood Count 27.4 K/UL (4.8-10.8) *H Red Blood Count 3.14 M/UL (4.70-6.10) L Hemoglobin 9.1 G/DL (14.2-18.0) L Hematocrit 25.8 % (42.0-52.0) L Mean Corpuscular Volume 82 FL (80-99) Mean Corpuscular Hemoglobin 28.9 PG (27.0-31.0) Mean Corpuscular Hemoglobin Concent 35.3 G/DL (32.0-36.0) Red Cell Distribution Width 14.0 % (11.6-14.8) Platelet Count 310 K/UL (150-450) # Mean Platelet Volume 6.2 FL (6.5-10.1) L Neutrophils (%) (Auto) % (45.0-75.0) Lymphocytes (%) (Auto) % (20.0-45.0) Monocytes (%) (Auto) % (1.0-10.0) Eosinophils (%) (Auto) % (0.0-3.0) Basophils (%) (Auto) % (0.0-2.0) Differential Total Cells Counted 100 Neutrophils % (Manual) 97 % (45-75) H Lymphocytes % (Manual) 2 % (20-45) L Monocytes % (Manual) 1 % (1-10) Eosinophils % (Manual) 0 % (0-3) Basophils % (Manual) 0 % (0-2) Band Neutrophils 0 % (0-8) Platelet Estimate Adequate Platelet Morphology Normal Hypochromasia 2+ Anisocytosis 1+ Spherocytes 1+ Sodium Level 136 MMOL/L (136-145) Potassium Level 3.6 MMOL/L (3.5-5.1) Chloride Level 105 MMOL/L (98-107) Carbon Dioxide Level 18 MMOL/L (21-32) L Anion Gap 13 mmol/L (5-15) Blood Urea Nitrogen 51 mg/dL (7-18) H Creatinine 3.1 MG/DL (0.55-1.30) H Estimat Glomerular Filtration Rate 19.9 mL/min (>60) Glucose Level 192 MG/DL (74-106) H Uric Acid 8.0 MG/DL (2.6-7.2) H Calcium Level 6.5 MG/DL (8.5-10.1) L Phosphorus Level 7.6 MG/DL (2.5-4.9) H Magnesium Level 2.1 MG/DL (1.8-2.4) Total Bilirubin 0.4 MG/DL (0.2-1.0) Aspartate Amino Transf (AST/SGOT) 46 U/L (15-37) H Alanine Aminotransferase (ALT/SGPT) 7 U/L (12-78) L Alkaline Phosphatase 75 U/L (46-116) C-Reactive Protein, Quantitative 5.3 mg/dL (0.00-0.90) H Total Protein 4.7 G/DL (6.4-8.2) L Albumin 0.9 G/DL (3.4-5.0) L Globulin 3.8 g/dL Albumin/Globulin Ratio 0.2 (1.0-2.7) L Arterial Blood pH 7.282 (7.350-7.450) Arterial Blood Partial Pressure CO2 34.2 mmHg (35.0-45.0) L Arterial Blood Partial Pressure O2 104.5 mmHg (75.0-100.0) H Arterial Blood HCO3 15.8 mmol/L (22.0-26.0) *L Arterial Blood Oxygen Saturation 97.3 % (95-100) Arterial Blood Base Excess -10 (-2-2) *L Michael Test Positive Current Medications Medications (Trade) Dose Ordered Sig/Leonor Route PRN Reason Start Time Stop Time Status Last Admin Dose Admin Acetaminophen (Tylenol) 650 mg Q4H PRN GT fever 11/18/19 03:00 12/11/19 02:59 11/19/19 20:04 Albumin Human 500 ml @ 0 mls/hr Q0M IV 11/24/19 11:30 11/24/19 12:30 Allopurinol (allopurinoL) 300 mg DAILY GT 11/21/19 09:00 12/21/19 08:59 11/24/19 08:16 Calcium Gluconate 1 gm/Sodium Chloride 120 ml @ 240 mls/hr Q12HR IVPB 11/22/19 09:00 12/22/19 08:59 11/24/19 08:15 Chlorhexidine Gluconate (Danielle-Hex 2%) 1 applic DAILY@2000 TOPIC 11/18/19 20:00 02/16/20 19:59 11/23/19 20:24 Dextrose/Sodium Chloride 1,000 ml @ 50 mls/hr Q20H IV 11/22/19 10:15 12/20/19 10:14 11/24/19 06:28 Heparin Sodium (Porcine) (Heparin 5000 units/ml) 5,000 units EVERY 12 HOURS SUBQ 11/18/19 09:00 12/26/19 08:59 11/24/19 08:17 Heparin Sodium/ Sodium Chloride (Heparin 1000 units/500ml Premix) 1,000 unit ONCE PRN IV radiology procedure 11/23/19 11:15 11/25/19 11:14 Lidocaine HCl (Xylocaine 1% 30ml) 30 ml ONCE PRN INJ radiology procedure 11/23/19 11:15 11/25/19 11:14 Linezolid (Zyvox) 600 mg EVERY 12 HOURS ORAL 11/22/19 21:00 11/27/19 20:59 11/24/19 08:16 Lorazepam (Ativan 2mg/ml 1ml) 2 mg Q4H PRN IV For Anxiety 11/18/19 12:10 11/25/19 12:09 11/20/19 03:50 Meropenem 500 mg/ Sodium Chloride 55 ml @ 110 mls/hr Q12HR IV 11/20/19 21:00 11/25/19 20:59 11/24/19 08:16 Metronidazole 100 ml @ 100 mls/hr Q8HR IVPB 11/18/19 06:00 11/24/19 23:59 11/24/19 06:28 Midodrine (Pro-Amatine) 10 mg Q8HR ORAL 11/22/19 14:00 02/20/20 13:59 11/24/19 06:28 Morphine Sulfate (Morphine Sulfate) 4 mg Q4H PRN IVP For Pain 11/18/19 12:10 11/25/19 12:09 Norepinephrine Bitartrate 8 mg/ Dextrose 558 ml @ 0 mls/hr Q24H IV 11/18/19 10:00 12/18/19 09:59 11/23/19 22:22 Ondansetron HCl (Zofran) 4 mg Q6H PRN IVP Nausea & Vomiting 11/18/19 03:00 12/11/19 08:59 Pantoprazole (Protonix) 40 mg DAILY IV 11/19/19 09:00 12/19/19 08:59 11/24/19 08:16 Sevelamer Carbonate (Renvela) 800 mg Q6HR NG 11/22/19 08:00 02/20/20 07:59 11/24/19 06:28 Vancomycin HCl (Firvanq) 125 mg FOUR TIMES A DAY NG 11/18/19 09:00 11/26/19 23:59 11/24/19 08:18 Shannon Mark M.D. Nov 24, 2019 11:49
--- NOTE | 2019-11-24 14:24 | Surgery Progress Note ---
Surgery Progress Note Subjective Additional Comments right transjugular temporary dialysis catheter placed successful and working labs noted ill appearing prognosis guarded Objective Last 24 Hour Vital Signs Date Time Temp Pulse Resp B/P (MAP) Pulse Ox O2 Delivery O2 Flow Rate FiO2 11/24/19 13:00 75 20 119/51 (73) 100 11/24/19 12:30 70 20 114/54 (74) 100 11/24/19 12:00 Mechanical Ventilator 11/24/19 12:00 98.2 71 20 113/54 (73) 100 11/24/19 12:00 35 11/24/19 11:30 70 16 117/58 (77) 100 11/24/19 11:15 71 20 35 11/24/19 11:00 71 20 114/56 (75) 100 11/24/19 11:00 114/56 11/24/19 10:30 72 20 110/52 (71) 100 11/24/19 10:00 73 20 109/53 (71) 98 11/24/19 10:00 109/53 11/24/19 09:30 68 20 100/50 (67) 100 11/24/19 09:00 115/56 11/24/19 09:00 68 20 100/50 (67) 100 11/24/19 08:45 69 20 115/56 (75) 100 11/24/19 08:30 68 20 119/56 (77) 100 11/24/19 08:15 68 20 113/55 (74) 100 11/24/19 08:00 Mechanical Ventilator 11/24/19 08:00 113/55 11/24/19 08:00 98.0 68 20 113/55 (74) 100 11/24/19 08:00 35 11/24/19 07:06 70 20 35 11/24/19 07:00 70 20 110/55 (73) 100 11/24/19 07:00 108/54 11/24/19 06:30 71 20 107/53 (71) 100 11/24/19 06:00 71 21 103/53 (70) 99 11/24/19 06:00 107/53 11/24/19 05:30 72 20 105/53 (70) 100 11/24/19 05:00 105/53 11/24/19 05:00 72 20 103/49 (67) 100 11/24/19 04:30 76 20 106/51 (69) 100 11/24/19 04:00 93 11/24/19 04:00 35 11/24/19 04:00 106/51 11/24/19 04:00 98.0 79 20 100/49 (66) 100 11/24/19 04:00 Mechanical Ventilator 11/24/19 03:30 77 21 95/47 (63) 96 11/24/19 03:15 71 20 35 11/24/19 03:00 108/50 11/24/19 03:00 72 20 103/50 (67) 98 11/24/19 02:30 71 20 108/50 (69) 100 11/24/19 02:00 115/60 11/24/19 02:00 71 20 106/49 (68) 100 11/24/19 01:30 72 20 103/51 (68) 100 11/24/19 01:00 74 20 102/50 (67) 100 11/24/19 01:00 103/51 11/24/19 00:30 75 20 100/49 (66) 100 11/24/19 00:00 75 11/24/19 00:00 35 11/24/19 00:00 100/49 11/24/19 00:00 Mechanical Ventilator 11/24/19 00:00 99.0 78 20 117/60 (79) 100 11/23/19 23:30 77 20 107/53 (71) 100 11/23/19 23:20 76 20 35 11/23/19 23:00 82 20 116/60 (78) 100 11/23/19 23:00 107/53 11/23/19 22:30 81 20 119/57 (77) 100 11/23/19 22:22 118/59 11/23/19 22:00 119/57 11/23/19 22:00 81 20 118/59 (78) 100 11/23/19 21:30 83 20 109/59 (76) 100 11/23/19 21:00 87 20 131/62 (85) 100 11/23/19 21:00 127/63 11/23/19 20:30 85 23 112/60 (77) 100 11/23/19 20:00 99.0 83 22 99/50 (66) 99 11/23/19 20:00 99/50 11/23/19 20:00 Mechanical Ventilator 11/23/19 19:45 83 23 112/45 (67) 100 11/23/19 19:40 77 22 35 11/23/19 19:30 85 22 120/53 (75) 100 11/23/19 19:00 85 21 140/59 (86) 97 11/23/19 18:30 90 22 97/53 (68) 100 11/23/19 18:00 90/44 11/23/19 18:00 77 21 90/44 (59) 99 11/23/19 17:30 81 22 97/46 (63) 100 11/23/19 17:00 94 20 90/50 (63) 100 11/23/19 17:00 90/50 11/23/19 16:59 86 11/23/19 16:30 98.0 76 21 99/50 (66) 100 11/23/19 16:00 Mechanical Ventilator 11/23/19 16:00 81 20 97/49 (65) 100 11/23/19 16:00 77 22 108/52 (70) 100 11/23/19 16:00 35 11/23/19 16:00 108/52 11/23/19 15:30 81 13 108/57 (74) 100 11/23/19 15:00 81 20 97/49 (65) 100 11/23/19 15:00 108/53 11/23/19 15:00 81 22 35 11/23/19 14:45 85 15 97/49 (65) 100 11/23/19 14:30 80 20 91/47 (62) 100 I&O Intake and Output 11/23/19 11/24/19 19:00 07:00 Intake Total 1429.14 ml 1547.09 ml Output Total 135 ml 1310 ml Balance 1294.14 ml 237.09 ml Free Water 50 ml IV Total 1009.14 ml 1077.09 ml Tube Feeding 320 ml 420 ml Other 100 ml Output Urine Total 35 ml 10 ml Stool Total 100 ml 300 ml Hemodialysis UF 1000 ml Dressing: other Wound: other Drains: other Cardiovascular: RSR Respiratory: decreased breath sounds Abdomen: soft, non-tender, present bowel sounds Extremities: no cyanosis Laboratory Tests Test 11/24/19 04:05 11/24/19 08:00 11/24/19 12:30 White Blood Count 27.4 K/UL (4.8-10.8) *H Red Blood Count 3.14 M/UL (4.70-6.10) L Hemoglobin 9.1 G/DL (14.2-18.0) L Hematocrit 25.8 % (42.0-52.0) L Mean Corpuscular Volume 82 FL (80-99) Mean Corpuscular Hemoglobin 28.9 PG (27.0-31.0) Mean Corpuscular Hemoglobin Concent 35.3 G/DL (32.0-36.0) Red Cell Distribution Width 14.0 % (11.6-14.8) Platelet Count 310 K/UL (150-450) # Mean Platelet Volume 6.2 FL (6.5-10.1) L Neutrophils (%) (Auto) % (45.0-75.0) Lymphocytes (%) (Auto) % (20.0-45.0) Monocytes (%) (Auto) % (1.0-10.0) Eosinophils (%) (Auto) % (0.0-3.0) Basophils (%) (Auto) % (0.0-2.0) Differential Total Cells Counted 100 Neutrophils % (Manual) 97 % (45-75) H Lymphocytes % (Manual) 2 % (20-45) L Monocytes % (Manual) 1 % (1-10) Eosinophils % (Manual) 0 % (0-3) Basophils % (Manual) 0 % (0-2) Band Neutrophils 0 % (0-8) Platelet Estimate Adequate Platelet Morphology Normal Hypochromasia 2+ Anisocytosis 1+ Spherocytes 1+ Sodium Level 136 MMOL/L (136-145) Potassium Level 3.6 MMOL/L (3.5-5.1) Chloride Level 105 MMOL/L (98-107) Carbon Dioxide Level 18 MMOL/L (21-32) L Anion Gap 13 mmol/L (5-15) Blood Urea Nitrogen 51 mg/dL (7-18) H Creatinine 3.1 MG/DL (0.55-1.30) H Estimat Glomerular Filtration Rate 19.9 mL/min (>60) Glucose Level 192 MG/DL (74-106) H Uric Acid 8.0 MG/DL (2.6-7.2) H Calcium Level 6.5 MG/DL (8.5-10.1) L Phosphorus Level 7.6 MG/DL (2.5-4.9) H Magnesium Level 2.1 MG/DL (1.8-2.4) Total Bilirubin 0.4 MG/DL (0.2-1.0) Aspartate Amino Transf (AST/SGOT) 46 U/L (15-37) H Alanine Aminotransferase (ALT/SGPT) 7 U/L (12-78) L Alkaline Phosphatase 75 U/L (46-116) C-Reactive Protein, Quantitative 5.3 mg/dL (0.00-0.90) H Total Protein 4.7 G/DL (6.4-8.2) L Albumin 0.9 G/DL (3.4-5.0) L Globulin 3.8 g/dL Albumin/Globulin Ratio 0.2 (1.0-2.7) L Arterial Blood pH 7.282 (7.350-7.450) Arterial Blood Partial Pressure CO2 34.2 mmHg (35.0-45.0) L Arterial Blood Partial Pressure O2 104.5 mmHg (75.0-100.0) H Arterial Blood HCO3 15.8 mmol/L (22.0-26.0) *L Arterial Blood Oxygen Saturation 97.3 % (95-100) Arterial Blood Base Excess -10 (-2-2) *L Michael Test Positive Urine Color Pending Urine Appearance Pending Urine pH Pending Urine Specific [place] Pending Urine Protein Pending Urine Glucose (UA) Pending Urine Ketones Pending Urine Blood Pending Urine Nitrite Pending Urine Bilirubin Pending Urine Urobilinogen Pending Urine Leukocyte Esterase Pending Plan Problems: (1) Decubitus skin ulcer Assessment & Plan: Pt presented on admission with large sacral wound. Base of wound with areas that area purple and indurated sacrococcygeal,L sacrum/L gluteus,Scattered wounds with maceration L gluteus, one wound R sacrum with Biofilm, Surrounding non-blanching erythema entire buttocks. Small dry scabbed area noted to lumbar area. Unstageable Pressure Injury L heel. Base of wound is necrotic with surrounding non-blanching erythema. Tx.plan: Apply Moisture Barrier Paste to Buttocks. Cover Sacrum, R and L gluteal cheeks with Optifoam drsgs. Change every 3 days and prn. Apply Betadine to L heel. Cover with Optifoam drsg. Change every 3 days and prn. Reposition at least every 2hours or as tolerated. Place Pillow between knees. Off-load heels with Pillow. APM/BRUNILDA Mattress overlay. DAILY ESTIMATED NEEDS: Needs based on wt loss, underweight, wound/ 59kg 30-35 kcals/kg 6478-5662 total kcals 1.25-2 g protein/kg 74-118 g total protein 25-30 mL/kg 6378-7394 total fluid mLs NUTRITION DIAGNOSIS: * Increased kcal/prot intake needs R/T wound healing, suspected recent significant wt loss as evidenced by admitted w/ wounds @ lt posterior heel, R lower back, sacrum as per photos, pending eval, suspected significant wt loss of 40lbs/ 23.7% in <5 months, currently @ 81% IBW. . * Swallowing difficulty R/T dysphagia, h/o CVA as evidenced by PEG dependent. CURRENT TF:Glucerna 1.2 @65ml/hr x24 hrs ENTERAL NUTRITION RECOMMENDATIONS: NEPRO @45ml/hr x24 hrs to provide 1080ml, 1944 kcal, 87g pro, 785ml free H2O - Rec TF change for lower K content (1145mg in Nepro @45 vs 3151mg in Glucerna 1.2 @65) - Start at 25ml/hr advance as tolerated 10ml/hr q4-6 hrs - HOB over 30 degrees - Increased H20 flush to 200ml q4 hrs ADDITIONAL RECOMMENDATIONS: 1) Calibrated bedscale wt -> per SNF: HT=59" and NS=333xna (10/20/19) 2) Wound healing: Add Vit C 500mg QD/ or dosing per nephro Add Osbaldo BID via PEG w/ TF order 3) Monitor lytes: monitor K trend, need for renal TF (K 5.3, 5.5) 4) NISS w/ TF (h/o DM) 5) Monitor for diarrhea, rec probiotics (2) Sepsis Assessment & Plan: 74-year-old male multi-medical comorbidities admitted for respiratory deficiency currently tachypneic, leukocytosis, malnutrition, hypoalbuminemia. Complete physical exam performed identified areas of concerned given patient's comorbidities current condition high risk for deteriorationNo active infection identified from patient's wounds and likely respiratory nature. Chest x-ray reviewed. No acute surgical intervention planned at this time Preventive measures IV antibiotics per infectious disease Okay for feeding once stable respiratory Appreciate Pulm input c diff positive on vanco blood cx noted worsening leukocytosis ID abx noted heme input noted There are increasing basilar opacities on the left noted. The heart size is normal. The pleural spaces are clear. 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
[2019-11-24 14:27] LABS: APPEARANCE,URINE CLOUDY; BILIRUBIN, URINE NEGATIVE (NEGATIVE); COLOR,URINE BROWN; GLUCOSE, URINE (UA) NEGATIVE (NEGATIVE); KETONES,URINE 1+ (NEGATIVE); LEUKOCYTE ESTERASE ,URINE 2+ (NEGATIVE); NITRITE,URINE POSITIVE (NEGATIVE); PH,URINE 5 (4.5-8.0); PROTEIN,URINE 3+ (NEGATIVE); UROBILINOGEN,URINE 1 MG/DL (0.0-1.0)
--- NOTE | 2019-11-24 15:13 | General Progress Note ---
Assessment/Plan Problem List: (1) DM (diabetes mellitus) ICD Codes: E11.9 - Type 2 diabetes mellitus without complications SNOMED: 02269346 (2) ARF (acute renal failure) ICD Codes: N17.9 - Acute kidney failure, unspecified SNOMED: 93139299 Qualifiers: Qualified Codes: N17.9 - Acute kidney failure, unspecified (3) Aspiration pneumonia ICD Codes: J69.0 - Pneumonitis due to inhalation of food and vomit SNOMED: 361062635 (4) UTI (urinary tract infection) ICD Codes: N39.0 - Urinary tract infection, site not specified SNOMED: 42700377 Qualifiers: Qualified Codes: N30.00 - Acute cystitis without hematuria (5) Hypertension ICD Codes: I10 - Essential (primary) hypertension SNOMED: 76042520 (6) Anemia ICD Codes: D64.9 - Anemia, unspecified SNOMED: 763260269 Qualifiers: Qualified Codes: D64.9 - Anemia, unspecified (7) Respiratory failure with hypoxia ICD Codes: J96.91 - Respiratory failure, unspecified with hypoxia SNOMED: 69627375450486942 Qualifiers: Qualified Codes: J96.01 - Acute respiratory failure with hypoxia (8) Suspected COVID-19 virus infection ICD Codes: Z20.828 - Contact with and (suspected) exposure to other viral communicable diseases SNOMED: 003063543 Status: unchanged Assessment/Plan: vent abx pt diet cbc bmp am Subjective Constitutional: Reports: weakness Allergies: Coded Allergies: No Known Allergies (Unverified , 09/16/19) All Systems: reviewed and negative except above Subjective intubated sedated in icu Objective Last 24 Hour Vital Signs Date Time Temp Pulse Resp B/P (MAP) Pulse Ox O2 Delivery O2 Flow Rate FiO2 11/24/19 14:30 83 20 122/60 (80) 97 11/24/19 14:00 82 20 124/62 (82) 99 11/24/19 13:30 72 20 107/54 (71) 100 11/24/19 13:00 75 20 119/51 (73) 100 11/24/19 12:30 70 20 114/54 (74) 100 11/24/19 12:00 Mechanical Ventilator 11/24/19 12:00 80 11/24/19 12:00 98.2 71 20 113/54 (73) 100 11/24/19 12:00 35 11/24/19 11:30 70 16 117/58 (77) 100 11/24/19 11:15 71 20 35 11/24/19 11:00 71 20 114/56 (75) 100 11/24/19 11:00 114/56 11/24/19 10:30 72 20 110/52 (71) 100 11/24/19 10:00 73 20 109/53 (71) 98 11/24/19 10:00 109/53 11/24/19 09:30 68 20 100/50 (67) 100 11/24/19 09:00 115/56 11/24/19 09:00 68 20 100/50 (67) 100 11/24/19 08:45 69 20 115/56 (75) 100 11/24/19 08:30 68 20 119/56 (77) 100 11/24/19 08:15 68 20 113/55 (74) 100 11/24/19 08:00 Mechanical Ventilator 11/24/19 08:00 83 11/24/19 08:00 113/55 11/24/19 08:00 98.0 68 20 113/55 (74) 100 11/24/19 08:00 35 11/24/19 07:06 70 20 35 11/24/19 07:00 70 20 110/55 (73) 100 11/24/19 07:00 108/54 11/24/19 06:30 71 20 107/53 (71) 100 11/24/19 06:00 71 21 103/53 (70) 99 11/24/19 06:00 107/53 11/24/19 05:30 72 20 105/53 (70) 100 11/24/19 05:00 105/53 11/24/19 05:00 72 20 103/49 (67) 100 11/24/19 04:30 76 20 106/51 (69) 100 11/24/19 04:00 93 11/24/19 04:00 35 11/24/19 04:00 106/51 11/24/19 04:00 98.0 79 20 100/49 (66) 100 11/24/19 04:00 Mechanical Ventilator 11/24/19 03:30 77 21 95/47 (63) 96 11/24/19 03:15 71 20 35 11/24/19 03:00 108/50 11/24/19 03:00 72 20 103/50 (67) 98 11/24/19 02:30 71 20 108/50 (69) 100 11/24/19 02:00 115/60 11/24/19 02:00 71 20 106/49 (68) 100 11/24/19 01:30 72 20 103/51 (68) 100 11/24/19 01:00 74 20 102/50 (67) 100 11/24/19 01:00 103/51 11/24/19 00:30 75 20 100/49 (66) 100 11/24/19 00:00 75 11/24/19 00:00 35 11/24/19 00:00 100/49 11/24/19 00:00 Mechanical Ventilator 11/24/19 00:00 99.0 78 20 117/60 (79) 100 11/23/19 23:30 77 20 107/53 (71) 100 11/23/19 23:20 76 20 35 11/23/19 23:00 82 20 116/60 (78) 100 11/23/19 23:00 107/53 11/23/19 22:30 81 20 119/57 (77) 100 11/23/19 22:22 118/59 11/23/19 22:00 119/57 11/23/19 22:00 81 20 118/59 (78) 100 11/23/19 21:30 83 20 109/59 (76) 100 11/23/19 21:00 87 20 131/62 (85) 100 11/23/19 21:00 127/63 11/23/19 20:30 85 23 112/60 (77) 100 11/23/19 20:00 99.0 83 22 99/50 (66) 99 11/23/19 20:00 99/50 11/23/19 20:00 Mechanical Ventilator 11/23/19 19:45 83 23 112/45 (67) 100 11/23/19 19:40 77 22 35 11/23/19 19:30 85 22 120/53 (75) 100 11/23/19 19:00 85 21 140/59 (86) 97 11/23/19 18:30 90 22 97/53 (68) 100 11/23/19 18:00 90/44 11/23/19 18:00 77 21 90/44 (59) 99 11/23/19 17:30 81 22 97/46 (63) 100 11/23/19 17:00 94 20 90/50 (63) 100 11/23/19 17:00 90/50 11/23/19 16:59 86 11/23/19 16:30 98.0 76 21 99/50 (66) 100 11/23/19 16:00 Mechanical Ventilator 11/23/19 16:00 81 20 97/49 (65) 100 11/23/19 16:00 77 22 108/52 (70) 100 11/23/19 16:00 35 11/23/19 16:00 108/52 11/23/19 15:30 81 13 108/57 (74) 100 Intake and Output 11/23/19 11/24/19 19:00 07:00 Intake Total 1429.14 ml 1547.09 ml Output Total 135 ml 1310 ml Balance 1294.14 ml 237.09 ml Free Water 50 ml IV Total 1009.14 ml 1077.09 ml Tube Feeding 320 ml 420 ml Other 100 ml Output Urine Total 35 ml 10 ml Stool Total 100 ml 300 ml Hemodialysis UF 1000 ml Laboratory Tests 11/24/19 04:05: White Blood Count 27.4*H, Red Blood Count 3.14L, Hemoglobin 9.1L, Hematocrit 25.8L, Mean Corpuscular Volume 82, Mean Corpuscular Hemoglobin 28.9, Mean Corpuscular Hemoglobin Concent 35.3, Red Cell Distribution Width 14.0, Platelet Count 310#, Mean Platelet Volume 6.2L, Neutrophils (%) (Auto) , Lymphocytes (%) (Auto) , Monocytes (%) (Auto) , Eosinophils (%) (Auto) , Basophils (%) (Auto) , Differential Total Cells Counted 100, Neutrophils % (Manual) 97H, Lymphocytes % (Manual) 2L, Monocytes % (Manual) 1, Eosinophils % (Manual) 0, Basophils % ( Manual) 0, Band Neutrophils 0, Platelet Estimate Adequate, Platelet Morphology Normal, Hypochromasia 2+, Anisocytosis 1+, Spherocytes 1+, Sodium Level 136, Potassium Level 3.6, Chloride Level 105, Carbon Dioxide Level 18L, Anion Gap 13 , Blood Urea Nitrogen 51H, Creatinine 3.1H, Estimat Glomerular Filtration Rate 19.9, Glucose Level 192H, Uric Acid 8.0H, Calcium Level 6.5L, Phosphorus Level 7.6H, Magnesium Level 2.1, Total Bilirubin 0.4, Aspartate Amino Transf (AST/SGOT ) 46H, Alanine Aminotransferase (ALT/SGPT) 7L, Alkaline Phosphatase 75, C- Reactive Protein, Quantitative 5.3H, Total Protein 4.7L, Albumin 0.9L, Globulin 3.8, Albumin/Globulin Ratio 0.2L 11/24/19 08:00: Arterial Blood pH 7.282L, Arterial Blood Partial Pressure CO2 34.2L, Arterial Blood Partial Pressure O2 104.5H, Arterial Blood HCO3 15.8*L, Arterial Blood Oxygen Saturation 97.3, Arterial Blood Base Excess -10*L, Michael Test Positive 11/24/19 12:30: Urine Color Brown, Urine Appearance Cloudy, Urine pH 5, Urine Specific [place] 1.025, Urine Protein 3+H, Urine Glucose (UA) Negative, Urine Ketones 1+H, Urine Blood 5+H, Urine Nitrite PositiveH, Urine Bilirubin Negative, Urine Urobilinogen 1H, Urine Leukocyte Esterase 2+H, Urine RBC 10-15H, Urine WBC 15- 20H, Urine Squamous Epithelial Cells Few, Urine Bacteria ModerateH, Urine Yeast ManyH Height (Feet): 6 Height (Inches): 0.00 Weight (Pounds): 185 General Appearance: lethargic EENT: normal ENT inspection Neck: normal alignment Cardiovascular: normal rate, regular rhythm Respiratory/Chest: no respiratory distress, no accessory muscle use Skin: normal pigmentation Juan Singh DO Nov 24, 2019 15:13
--- NOTE | 2019-11-24 16:44 | Hematology/Onc Progress Note ---
Assessment/Plan Assessment/Plan Assessment and Recs # Leukocytosis/elevated white blood cell count, unspecified likely related to underlying stress reaction, smoking v more likely infection, in this case with pna and COVID19++++++++ --> have reviewed peripheral smear and bandemia/neutrophilia noted --> continue antibiotics if they have been started by ID team --> monitor for resolution --> wbc 35k-->31.2-->25-->27.4 -->25-->20.7-->18.6 -->27 --> abx/antivral: remdesivir/vanc/cefepime-->vanc/flagyl/monique-->linezolid/monique-- >cefepime # Thrombocytosis - if plt count >400k, most usually is a reactive process and will improve once exacerbant removed as well --> in this case due to underlying infection --> plt trend 646k-->672 -->547-->372-->345-->149 # Anemia of chronic disease due to underlying chronic medical issues, multifactorial v Gi bleed --> Anemia workup has been ordered, rule out gi bleed -> ferritin 1339 --> No evidence of hemolysis is noted, peripheral smear has been reviewed. --> Hgb goal >7. Transfuse prn. --> Epogen or iron at this time is not particularly indicated --> Medications have been reviewed --> low threshold for gi evaluation in case has occult + --> bone marrow biopsy is not indicated given the other more likely causes --> hgb 9.5-->9.8->8.8-->8.6-->7.5-->9.5-->7.5 -->9.1 --> 1 unit prbc 11/20 --> ddimer remains elevated currently # Acute hypoxic resp failure- on NRB 15L- 2ry to COVID19 --> per id and pulm recs --> breathing treatments and rep cxr --> 11/15 cxr: New/increased infiltrates at the left lateral lung base # UTI c/w bacteremia --> abx per id # Cdiff colitis # MONICA, improving # Deep tissue injury (sacrum, L heel) # HTN # Dm2 # MDD # Dysphagia s/p GT # malnutrition # decubitus ulcer # non verbal # 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 Greatly appreciate consultation. Subjective Allergies: Coded Allergies: No Known Allergies (Unverified , 09/16/19) All Systems: reviewed and negative except above Subjective 11/15 tele, no acute events, cxr and labs reviewed, nrb 15l, remdesivir 11/16 remains on iso, breathing is improved, no night sweats 11/17 remains with fever, cooling blankets, labs noted, no bleed hgb 8.8 11/19 icu, no acute events, vent, levo gtt, meds and labs reviewed 11/20 labs noted, no bleeding, in icu, hgb 7.5, to get one unit prbc, wbc elev 25 11/21 non verbal, s/p blood, hgb improved to 9.5, vent, iv abx 11/22 icu, no new changes, labs reviewed, levo gtt 11/23 labs are noted, no bleeding, in icu, on levo, wbc 27, hgb 9 Objective Objective Current Medications Medications (Trade) Dose Ordered Sig/Leonor Route PRN Reason Start Time Stop Time Status Last Admin Dose Admin Acetaminophen (Tylenol) 650 mg Q4H PRN GT fever 11/18/19 03:00 12/11/19 02:59 11/19/19 20:04 Allopurinol (allopurinoL) 300 mg DAILY GT 11/21/19 09:00 12/21/19 08:59 11/24/19 08:16 Calcium Gluconate 1 gm/Sodium Chloride 120 ml @ 240 mls/hr Q12HR IVPB 11/22/19 09:00 12/22/19 08:59 11/24/19 08:15 Cefepime HCl 1 gm/ Dextrose 55 ml @ 110 mls/hr EVERY 12 HOURS IVPB 11/24/19 21:00 12/01/19 20:59 Chlorhexidine Gluconate (Danielle-Hex 2%) 1 applic DAILY@2000 TOPIC 11/18/19 20:00 02/16/20 19:59 11/23/19 20:24 Dextrose/Sodium Chloride 1,000 ml @ 50 mls/hr Q20H IV 11/22/19 10:15 12/20/19 10:14 11/24/19 06:28 Heparin Sodium (Porcine) (Heparin 5000 units/ml) 5,000 units EVERY 12 HOURS SUBQ 11/18/19 09:00 12/26/19 08:59 11/24/19 08:17 Heparin Sodium/ Sodium Chloride (Heparin 1000 units/500ml Premix) 1,000 unit ONCE PRN IV radiology procedure 11/23/19 11:15 11/25/19 11:14 Lidocaine HCl (Xylocaine 1% 30ml) 30 ml ONCE PRN INJ radiology procedure 11/23/19 11:15 11/25/19 11:14 Linezolid (Zyvox) 600 mg EVERY 12 HOURS ORAL 11/22/19 21:00 11/27/19 20:59 11/24/19 08:16 Lorazepam (Ativan 2mg/ml 1ml) 2 mg Q4H PRN IV For Anxiety 11/18/19 12:10 11/25/19 12:09 11/20/19 03:50 Metronidazole 100 ml @ 100 mls/hr Q8HR IVPB 11/18/19 06:00 11/24/19 23:59 11/24/19 13:35 Midodrine (Pro-Amatine) 10 mg Q8HR ORAL 11/22/19 14:00 02/20/20 13:59 11/24/19 13:35 Morphine Sulfate (Morphine Sulfate) 4 mg Q4H PRN IVP For Pain 11/18/19 12:10 11/25/19 12:09 Norepinephrine Bitartrate 8 mg/ Dextrose 558 ml @ 0 mls/hr Q24H IV 11/18/19 10:00 12/18/19 09:59 11/23/19 22:22 Ondansetron HCl (Zofran) 4 mg Q6H PRN IVP Nausea & Vomiting 11/18/19 03:00 12/11/19 08:59 Pantoprazole (Protonix) 40 mg DAILY IV 11/19/19 09:00 12/19/19 08:59 11/24/19 08:16 Sevelamer Carbonate (Renvela) 800 mg Q6HR NG 11/22/19 08:00 02/20/20 07:59 11/24/19 12:26 Vancomycin HCl (Firvanq) 125 mg FOUR TIMES A DAY NG 11/18/19 09:00 11/26/19 23:59 11/24/19 12:26 Last 24 Hour Vital Signs Date Time Temp Pulse Resp B/P (MAP) Pulse Ox O2 Delivery O2 Flow Rate FiO2 11/24/19 16:00 35 11/24/19 16:00 98.5 72 20 101/47 (65) 99 11/24/19 16:00 Mechanical Ventilator 11/24/19 15:49 73 11/24/19 15:30 71 20 98/45 (62) 99 11/24/19 15:29 71 19 99/47 (64) 99 11/24/19 15:15 84 19 108/49 (68) 100 11/24/19 15:12 73 20 35 11/24/19 15:00 74 20 98/45 (62) 99 11/24/19 14:45 83 20 122/60 (80) 97 11/24/19 14:30 83 20 122/60 (80) 97 11/24/19 14:15 83 20 124/62 (82) 98 11/24/19 14:00 82 20 124/62 (82) 99 11/24/19 14:00 124/62 11/24/19 13:45 71 20 107/54 (71) 100 11/24/19 13:30 72 20 107/54 (71) 100 11/24/19 13:15 71 20 109/51 (70) 100 11/24/19 13:00 75 20 119/51 (73) 100 11/24/19 13:00 109/51 11/24/19 13:00 75 20 119/51 (73) 100 11/24/19 12:45 68 20 104/50 (68) 100 11/24/19 12:45 68 20 107/50 (69) 100 11/24/19 12:44 68 20 107/50 (69) 100 11/24/19 12:36 68 20 103/48 (66) 100 11/24/19 12:30 70 20 114/54 (74) 100 11/24/19 12:30 70 20 114/54 (74) 100 11/24/19 12:15 69 20 114/54 (74) 100 11/24/19 12:15 69 20 100 11/24/19 12:00 Mechanical Ventilator 11/24/19 12:00 80 11/24/19 12:00 114/54 11/24/19 12:00 98.2 71 20 113/54 (73) 100 11/24/19 12:00 35 11/24/19 11:30 70 16 117/58 (77) 100 11/24/19 11:15 71 20 35 11/24/19 11:00 71 20 114/56 (75) 100 11/24/19 11:00 114/56 11/24/19 10:30 72 20 110/52 (71) 100 11/24/19 10:00 73 20 109/53 (71) 98 11/24/19 10:00 109/53 11/24/19 09:30 68 20 100/50 (67) 100 11/24/19 09:00 115/56 11/24/19 09:00 68 20 100/50 (67) 100 11/24/19 08:45 69 20 115/56 (75) 100 11/24/19 08:30 68 20 119/56 (77) 100 11/24/19 08:15 68 20 113/55 (74) 100 11/24/19 08:00 Mechanical Ventilator 11/24/19 08:00 83 11/24/19 08:00 113/55 11/24/19 08:00 98.0 68 20 113/55 (74) 100 11/24/19 08:00 35 11/24/19 07:06 70 20 35 11/24/19 07:00 70 20 110/55 (73) 100 11/24/19 07:00 108/54 11/24/19 06:30 71 20 107/53 (71) 100 11/24/19 06:00 71 21 103/53 (70) 99 11/24/19 06:00 107/53 11/24/19 05:30 72 20 105/53 (70) 100 11/24/19 05:00 105/53 11/24/19 05:00 72 20 103/49 (67) 100 11/24/19 04:30 76 20 106/51 (69) 100 11/24/19 04:00 93 11/24/19 04:00 35 11/24/19 04:00 106/51 11/24/19 04:00 98.0 79 20 100/49 (66) 100 11/24/19 04:00 Mechanical Ventilator 11/24/19 03:30 77 21 95/47 (63) 96 11/24/19 03:15 71 20 35 11/24/19 03:00 108/50 11/24/19 03:00 72 20 103/50 (67) 98 11/24/19 02:30 71 20 108/50 (69) 100 11/24/19 02:00 115/60 11/24/19 02:00 71 20 106/49 (68) 100 11/24/19 01:30 72 20 103/51 (68) 100 11/24/19 01:00 74 20 102/50 (67) 100 11/24/19 01:00 103/51 11/24/19 00:30 75 20 100/49 (66) 100 11/24/19 00:00 75 11/24/19 00:00 35 11/24/19 00:00 100/49 11/24/19 00:00 Mechanical Ventilator 11/24/19 00:00 99.0 78 20 117/60 (79) 100 11/23/19 23:30 77 20 107/53 (71) 100 11/23/19 23:20 76 20 35 11/23/19 23:00 82 20 116/60 (78) 100 11/23/19 23:00 107/53 11/23/19 22:30 81 20 119/57 (77) 100 11/23/19 22:22 118/59 11/23/19 22:00 119/57 11/23/19 22:00 81 20 118/59 (78) 100 11/23/19 21:30 83 20 109/59 (76) 100 11/23/19 21:00 87 20 131/62 (85) 100 11/23/19 21:00 127/63 11/23/19 20:30 85 23 112/60 (77) 100 11/23/19 20:00 99.0 83 22 99/50 (66) 99 11/23/19 20:00 99/50 11/23/19 20:00 Mechanical Ventilator 11/23/19 19:45 83 23 112/45 (67) 100 11/23/19 19:40 77 22 35 11/23/19 19:30 85 22 120/53 (75) 100 11/23/19 19:00 85 21 140/59 (86) 97 11/23/19 18:30 90 22 97/53 (68) 100 11/23/19 18:00 90/44 11/23/19 18:00 77 21 90/44 (59) 99 11/23/19 17:30 81 22 97/46 (63) 100 11/23/19 17:00 94 20 90/50 (63) 100 11/23/19 17:00 90/50 11/23/19 16:59 86 11/23/19 16:30 98.0 76 21 99/50 (66) 100 11/23/19 16:00 Mechanical Ventilator 11/23/19 16:00 81 20 97/49 (65) 100 11/23/19 16:00 77 22 108/52 (70) 100 11/23/19 16:00 35 11/23/19 16:00 108/52 11/23/19 15:30 81 13 108/57 (74) 100 11/23/19 15:00 81 20 97/49 (65) 100 11/23/19 15:00 108/53 11/23/19 15:00 81 22 35 11/23/19 14:45 85 15 97/49 (65) 100 11/23/19 14:30 80 20 91/47 (62) 100 11/23/19 14:00 91/47 11/23/19 14:00 92 19 91/47 (62) 99 11/23/19 13:30 89 21 95/49 (64) 99 11/23/19 13:00 94/47 11/23/19 13:00 92 21 93/43 (60) 99 11/23/19 12:30 87 21 102/48 (66) 100 11/23/19 12:00 99.0 87 22 100/48 (65) 99 11/23/19 12:00 Mechanical Ventilator 11/23/19 12:00 102/47 11/23/19 12:00 35 11/23/19 11:47 87 11/23/19 11:30 88 22 104/48 (66) 99 11/23/19 11:00 105/48 11/23/19 11:00 87 21 35 11/23/19 11:00 87 21 105/48 (67) 99 11/23/19 10:30 85 21 104/50 (68) 99 11/23/19 10:00 87 21 101/46 (64) 99 11/23/19 10:00 103/48 11/23/19 09:50 100 11/23/19 09:30 90 22 107/48 (67) 99 11/23/19 09:00 101/46 11/23/19 09:00 83 21 97/44 (61) 99 11/23/19 08:30 78 21 96/46 (63) 99 11/23/19 08:00 Mechanical Ventilator 11/23/19 08:00 98/45 11/23/19 08:00 99.3 81 21 105/49 (67) 99 11/23/19 08:00 35 11/23/19 07:53 79 11/23/19 07:30 88 22 96/48 (64) 99 11/23/19 07:00 83 24 35 11/23/19 07:00 85 20 98/45 (62) 99 11/23/19 07:00 102/50 11/23/19 06:30 99.0 85 21 94/46 (62) 99 11/23/19 06:15 84 20 102/46 (64) 99 11/23/19 06:00 100/45 11/23/19 06:00 82 21 104/44 (64) 99 11/23/19 05:45 86 22 102/48 (66) 99 11/23/19 05:30 82 21 102/47 (65) 99 11/23/19 05:00 103/46 11/23/19 05:00 86 21 104/46 (65) 99 11/23/19 04:30 80 20 100/45 (63) 99 11/23/19 04:00 Mechanical Ventilator 11/23/19 04:00 99.8 83 20 93/46 (62) 99 11/23/19 04:00 100/49 11/23/19 04:00 83 11/23/19 04:00 35 11/23/19 03:30 84 20 91/45 (60) 98 11/23/19 03:00 96/50 11/23/19 03:00 89 20 83/44 (57) 97 11/23/19 02:46 79 20 35 11/23/19 02:30 80 20 93/37 (55) 97 11/23/19 02:00 80 20 91/39 (56) 98 11/23/19 02:00 95/45 11/23/19 01:30 79 20 99/42 (61) 98 11/23/19 01:00 78 20 90/39 (56) 98 11/23/19 01:00 91/39 11/23/19 00:30 79 20 91/39 (56) 95 11/23/19 00:00 98.2 83 20 90/41 (57) 97 11/23/19 00:00 35 11/23/19 00:00 85 11/23/19 00:00 Mechanical Ventilator 11/23/19 00:00 88/39 11/22/19 23:43 82 20 35 11/22/19 23:30 79 20 88/39 (55) 98 11/22/19 23:00 80 20 91/42 (58) 97 11/22/19 23:00 99/42 11/22/19 22:30 81 20 100/42 (61) 99 11/22/19 22:00 99/39 11/22/19 22:00 83 20 98/45 (62) 97 11/22/19 21:00 82 20 98/48 (65) 97 11/22/19 21:00 100/46 11/22/19 20:30 82 20 103/48 (66) 97 11/22/19 20:09 80 20 35 11/22/19 20:00 Mechanical Ventilator 11/22/19 20:00 81 11/22/19 20:00 35 11/22/19 20:00 98.7 84 20 97/47 (64) 99 11/22/19 20:00 97/47 11/22/19 19:30 82 20 94/46 (62) 98 11/22/19 19:00 79 20 93/47 (62) 98 11/22/19 18:30 79 20 93/45 (61) 99 11/22/19 18:16 93/44 11/22/19 18:04 78 20 84/42 (56) 98 11/22/19 18:00 84/42 11/22/19 17:45 80 20 107/56 (73) 99 11/22/19 17:30 78 20 90/43 (59) 99 11/22/19 17:00 81 20 93/44 (60) 100 Intake and Output 11/23/19 11/24/19 19:00 07:00 Intake Total 1429.14 ml 1547.09 ml Output Total 135 ml 1310 ml Balance 1294.14 ml 237.09 ml Free Water 50 ml IV Total 1009.14 ml 1077.09 ml Tube Feeding 320 ml 420 ml Other 100 ml Output Urine Total 35 ml 10 ml Stool Total 100 ml 300 ml Hemodialysis UF 1000 ml Labs Test 11/22/19 04:00 11/22/19 10:35 11/23/19 04:00 11/24/19 04:05 White Blood Count 20.7 K/UL (4.8-10.8) 18.6 K/UL (4.8-10.8) 27.4 K/UL (4.8-10.8) Red Blood Count 3.34 M/UL (4.70-6.10) 2.65 M/UL (4.70-6.10) 3.14 M/UL (4.70-6.10) Hemoglobin 9.5 G/DL (14.2-18.0) 7.5 G/DL (14.2-18.0) 9.1 G/DL (14.2-18.0) Hematocrit 27.1 % (42.0-52.0) 21.9 % (42.0-52.0) 25.8 % (42.0-52.0) Mean Corpuscular Volume 81 FL (80-99) 83 FL (80-99) 82 FL (80-99) Mean Corpuscular Hemoglobin 28.4 PG (27.0-31.0) 28.2 PG (27.0-31.0) 28.9 PG (27.0-31.0) Mean Corpuscular Hemoglobin Concent 35.0 G/DL (32.0-36.0) 34.2 G/DL (32.0-36.0) 35.3 G/DL (32.0-36.0) Red Cell Distribution Width 13.5 % (11.6-14.8) 14.2 % (11.6-14.8) 14.0 % (11.6-14.8) Platelet Count 345 K/UL (150-450) 149 K/UL (150-450) 310 K/UL (150-450) Mean Platelet Volume 5.7 FL (6.5-10.1) 5.4 FL (6.5-10.1) 6.2 FL (6.5-10.1) Neutrophils (%) (Auto) % (45.0-75.0) % (45.0-75.0) % (45.0-75.0) Lymphocytes (%) (Auto) % (20.0-45.0) % (20.0-45.0) % (20.0-45.0) Monocytes (%) (Auto) % (1.0-10.0) % (1.0-10.0) % (1.0-10.0) Eosinophils (%) (Auto) % (0.0-3.0) % (0.0-3.0) % (0.0-3.0) Basophils (%) (Auto) % (0.0-2.0) % (0.0-2.0) % (0.0-2.0) Differential Total Cells Counted 100 100 100 Neutrophils % (Manual) 88 % (45-75) 86 % (45-75) 97 % (45-75) Lymphocytes % (Manual) 6 % (20-45) 7 % (20-45) 2 % (20-45) Monocytes % (Manual) 6 % (1-10) 7 % (1-10) 1 % (1-10) Eosinophils % (Manual) 0 % (0-3) 0 % (0-3) 0 % (0-3) Basophils % (Manual) 0 % (0-2) 0 % (0-2) 0 % (0-2) Band Neutrophils 0 % (0-8) 0 % (0-8) 0 % (0-8) Platelet Estimate Adequate Decreased Adequate Platelet Morphology Normal Normal Normal Hypochromasia 1+ 3+ 2+ Sodium Level 134 MMOL/L (136-145) 134 MMOL/L (136-145) 136 MMOL/L (136-145) Potassium Level 4.3 MMOL/L (3.5-5.1) 4.7 MMOL/L (3.5-5.1) 3.6 MMOL/L (3.5-5.1) Chloride Level 104 MMOL/L (98-107) 106 MMOL/L (98-107) 105 MMOL/L (98-107) Carbon Dioxide Level 15 MMOL/L (21-32) 14 MMOL/L (21-32) 18 MMOL/L (21-32) Anion Gap 15 mmol/L (5-15) 15 mmol/L (5-15) 13 mmol/L (5-15) Blood Urea Nitrogen 66 mg/dL (7-18) 68 mg/dL (7-18) 51 mg/dL (7-18) Creatinine 3.1 MG/DL (0.55-1.30) 3.7 MG/DL (0.55-1.30) 3.1 MG/DL (0.55-1.30) Estimat Glomerular Filtration Rate 19.9 mL/min (>60) 16.2 mL/min (>60) 19.9 mL/min (>60) Glucose Level 98 MG/DL (74-106) 127 MG/DL (74-106) 192 MG/DL (74-106) Uric Acid 10.8 MG/DL (2.6-7.2) 10.8 MG/DL (2.6-7.2) 8.0 MG/DL (2.6-7.2) Calcium Level 5.9 MG/DL (8.5-10.1) 6.4 MG/DL (8.5-10.1) 6.5 MG/DL (8.5-10.1) Phosphorus Level 7.2 MG/DL (2.5-4.9) 7.8 MG/DL (2.5-4.9) 7.6 MG/DL (2.5-4.9) Magnesium Level 1.9 MG/DL (1.8-2.4) 2.1 MG/DL (1.8-2.4) 2.1 MG/DL (1.8-2.4) Total Bilirubin 0.3 MG/DL (0.2-1.0) 0.3 MG/DL (0.2-1.0) 0.4 MG/DL (0.2-1.0) Aspartate Amino Transf (AST/SGOT) 87 U/L (15-37) 75 U/L (15-37) 46 U/L (15-37) Alanine Aminotransferase (ALT/SGPT) 17 U/L (12-78) 14 U/L (12-78) 7 U/L (12-78) Alkaline Phosphatase 77 U/L (46-116) 82 U/L (46-116) 75 U/L (46-116) Total Protein 4.7 G/DL (6.4-8.2) 5.0 G/DL (6.4-8.2) 4.7 G/DL (6.4-8.2) Albumin 1.0 G/DL (3.4-5.0) 1.0 G/DL (3.4-5.0) 0.9 G/DL (3.4-5.0) Globulin 3.7 g/dL 4.0 g/dL 3.8 g/dL Albumin/Globulin Ratio 0.3 (1.0-2.7) 0.2 (1.0-2.7) 0.2 (1.0-2.7) Random Vancomycin Level 22.3 ug/mL Urine Random Sodium 20 mmol/L (20-110) Anisocytosis 1+ 1+ C-Reactive Protein, Quantitative 5.2 mg/dL (0.00-0.90) 5.3 mg/dL (0.00-0.90) Pro-B-Type Natriuretic Peptide 4097 pg/mL (0-125) Spherocytes 1+ Test 11/24/19 08:00 11/24/19 12:30 Arterial Blood pH 7.282 (7.350-7.450) Arterial Blood Partial Pressure CO2 34.2 mmHg (35.0-45.0) Arterial Blood Partial Pressure O2 104.5 mmHg (75.0-100.0) Arterial Blood HCO3 15.8 mmol/L (22.0-26.0) Arterial Blood Oxygen Saturation 97.3 % (95-100) Arterial Blood Base Excess -10 (-2-2) Michael Test Positive Urine Color Brown Urine Appearance Cloudy Urine pH 5 (4.5-8.0) Urine Specific [place] 1.025 (1.005-1.035) Urine Protein 3+ (NEGATIVE) Urine Glucose (UA) Negative (NEGATIVE) Urine Ketones 1+ (NEGATIVE) Urine Blood 5+ (NEGATIVE) Urine Nitrite Positive (NEGATIVE) Urine Bilirubin Negative (NEGATIVE) Urine Urobilinogen 1 MG/DL (0.0-1.0) Urine Leukocyte Esterase 2+ (NEGATIVE) Urine RBC 10-15 /HPF (0 - 0) Urine WBC 15-20 /HPF (0 - 0) Urine Squamous Epithelial Cells Few /LPF (NONE/OCC) Urine Bacteria Moderate /HPF (NONE) Urine Yeast Many /HPF (NONE) Height (Feet): 6 Height (Inches): 0.00 Weight (Pounds): 185 Objective PE General: alert, chronically Ill Heent: nc, at Neck: full range of motion, supple, no meningismus Respiratory: chest non-tender, decreased breath sounds, crackles, vent++ Cardiovascular: no murmur, tachycardia Gastrointestinal: normal bowel sounds, non tender,+peg Musculoskeletal: back normal, normal range of motion, gait/station normal Neurologic: no pronator Deng Flowers MD Nov 24, 2019 16:44
--- NOTE | 2019-11-24 19:51 | Cardiology Progress Note ---
Assessment/Plan Assessment/Plan 1. covid 19 pneumonia 2. History of cerebrovascular accident. 3. History of carotid occlusion. 4. Bilateral infiltrates and pneumonia. 5. Aphasia. 6. Diabetes mellitus. 7. Hyponatremia. 8. Renal insufficiency 9. 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 asystolic arrest probably aspiration with subequent hypoxemia relasted 12. aspiration per er md ross intubation " There was significant gastric contents in the patient's pharynx." 13 septic shock remains on a vent remain on pressore per rn not moving any ext was able to wean on the vent little wbc lower low grade fever last on 11/19 cr worsening urine out put is lwo on free water na stable abx per ID s/p resmeidivir d/w quality assurance intern sinus tachy , now on 40% on the vent pressor now off for judith moment vent support trop neg neuro poor consider neuro eval Subjective Subjective not communicative in isoaltion on a vent , nto responsive per rn , toelrting feeds in on pressor , urine out put poor desptie ivf Objective Last 24 Hour Vital Signs Date Time Temp Pulse Resp B/P (MAP) Pulse Ox O2 Delivery O2 Flow Rate FiO2 11/24/19 19:15 67 20 109/51 (70) 100 11/24/19 19:00 66 20 105/51 (69) 100 11/24/19 18:34 70 20 113/52 (72) 100 11/24/19 18:00 70 20 111/49 (69) 99 11/24/19 17:30 68 20 104/49 (67) 99 11/24/19 17:00 70 20 104/50 (68) 99 11/24/19 16:00 35 11/24/19 16:00 98.5 72 20 101/47 (65) 99 11/24/19 16:00 Mechanical Ventilator 11/24/19 15:49 73 11/24/19 15:30 71 20 98/45 (62) 99 11/24/19 15:29 71 19 99/47 (64) 99 11/24/19 15:15 84 19 108/49 (68) 100 11/24/19 15:12 73 20 35 11/24/19 15:00 74 20 98/45 (62) 99 11/24/19 14:45 83 20 122/60 (80) 97 11/24/19 14:30 83 20 122/60 (80) 97 11/24/19 14:15 83 20 124/62 (82) 98 11/24/19 14:00 82 20 124/62 (82) 99 11/24/19 14:00 124/62 11/24/19 13:45 71 20 107/54 (71) 100 11/24/19 13:30 72 20 107/54 (71) 100 11/24/19 13:15 71 20 109/51 (70) 100 11/24/19 13:00 75 20 119/51 (73) 100 11/24/19 13:00 109/51 11/24/19 13:00 75 20 119/51 (73) 100 11/24/19 12:45 68 20 104/50 (68) 100 11/24/19 12:45 68 20 107/50 (69) 100 11/24/19 12:44 68 20 107/50 (69) 100 11/24/19 12:36 68 20 103/48 (66) 100 11/24/19 12:30 70 20 114/54 (74) 100 11/24/19 12:30 70 20 114/54 (74) 100 11/24/19 12:15 69 20 114/54 (74) 100 11/24/19 12:15 69 20 100 11/24/19 12:00 Mechanical Ventilator 11/24/19 12:00 80 11/24/19 12:00 114/54 11/24/19 12:00 98.2 71 20 113/54 (73) 100 11/24/19 12:00 35 11/24/19 11:30 70 16 117/58 (77) 100 11/24/19 11:15 71 20 35 11/24/19 11:00 71 20 114/56 (75) 100 11/24/19 11:00 114/56 11/24/19 10:30 72 20 110/52 (71) 100 11/24/19 10:00 73 20 109/53 (71) 98 11/24/19 10:00 109/53 11/24/19 09:30 68 20 100/50 (67) 100 11/24/19 09:00 115/56 11/24/19 09:00 68 20 100/50 (67) 100 6/11/20 08:45 69 20 115/56 (75) 100 11/24/19 08:30 68 20 119/56 (77) 100 11/24/19 08:15 68 20 113/55 (74) 100 11/24/19 08:00 Mechanical Ventilator 11/24/19 08:00 83 11/24/19 08:00 113/55 11/24/19 08:00 98.0 68 20 113/55 (74) 100 11/24/19 08:00 35 11/24/19 07:06 70 20 35 11/24/19 07:00 70 20 110/55 (73) 100 11/24/19 07:00 108/54 11/24/19 06:30 71 20 107/53 (71) 100 11/24/19 06:00 71 21 103/53 (70) 99 11/24/19 06:00 107/53 11/24/19 05:30 72 20 105/53 (70) 100 11/24/19 05:00 105/53 11/24/19 05:00 72 20 103/49 (67) 100 11/24/19 04:30 76 20 106/51 (69) 100 11/24/19 04:00 93 11/24/19 04:00 35 11/24/19 04:00 106/51 11/24/19 04:00 98.0 79 20 100/49 (66) 100 11/24/19 04:00 Mechanical Ventilator 11/24/19 03:30 77 21 95/47 (63) 96 11/24/19 03:15 71 20 35 11/24/19 03:00 108/50 11/24/19 03:00 72 20 103/50 (67) 98 11/24/19 02:30 71 20 108/50 (69) 100 11/24/19 02:00 115/60 11/24/19 02:00 71 20 106/49 (68) 100 11/24/19 01:30 72 20 103/51 (68) 100 11/24/19 01:00 74 20 102/50 (67) 100 11/24/19 01:00 103/51 11/24/19 00:30 75 20 100/49 (66) 100 11/24/19 00:00 75 11/24/19 00:00 35 11/24/19 00:00 100/49 11/24/19 00:00 Mechanical Ventilator 11/24/19 00:00 99.0 78 20 117/60 (79) 100 11/23/19 23:30 77 20 107/53 (71) 100 11/23/19 23:20 76 20 35 11/23/19 23:00 82 20 116/60 (78) 100 11/23/19 23:00 107/53 11/23/19 22:30 81 20 119/57 (77) 100 11/23/19 22:22 118/59 11/23/19 22:00 119/57 11/23/19 22:00 81 20 118/59 (78) 100 11/23/19 21:30 83 20 109/59 (76) 100 11/23/19 21:00 87 20 131/62 (85) 100 11/23/19 21:00 127/63 11/23/19 20:30 85 23 112/60 (77) 100 11/23/19 20:00 99.0 83 22 99/50 (66) 99 11/23/19 20:00 99/50 11/23/19 20:00 Mechanical Ventilator Intake and Output 11/23/19 11/24/19 19:00 07:00 Intake Total 1429.14 ml 1547.09 ml Output Total 135 ml 1310 ml Balance 1294.14 ml 237.09 ml Free Water 50 ml IV Total 1009.14 ml 1077.09 ml Tube Feeding 320 ml 420 ml Other 100 ml Output Urine Total 35 ml 10 ml Stool Total 100 ml 300 ml Hemodialysis UF 1000 ml Laboratory Tests Test 11/24/19 04:05 11/24/19 08:00 11/24/19 12:30 White Blood Count 27.4 K/UL (4.8-10.8) *H Red Blood Count 3.14 M/UL (4.70-6.10) L Hemoglobin 9.1 G/DL (14.2-18.0) L Hematocrit 25.8 % (42.0-52.0) L Mean Corpuscular Volume 82 FL (80-99) Mean Corpuscular Hemoglobin 28.9 PG (27.0-31.0) Mean Corpuscular Hemoglobin Concent 35.3 G/DL (32.0-36.0) Red Cell Distribution Width 14.0 % (11.6-14.8) Platelet Count 310 K/UL (150-450) # Mean Platelet Volume 6.2 FL (6.5-10.1) L Neutrophils (%) (Auto) % (45.0-75.0) Lymphocytes (%) (Auto) % (20.0-45.0) Monocytes (%) (Auto) % (1.0-10.0) Eosinophils (%) (Auto) % (0.0-3.0) Basophils (%) (Auto) % (0.0-2.0) Differential Total Cells Counted 100 Neutrophils % (Manual) 97 % (45-75) H Lymphocytes % (Manual) 2 % (20-45) L Monocytes % (Manual) 1 % (1-10) Eosinophils % (Manual) 0 % (0-3) Basophils % (Manual) 0 % (0-2) Band Neutrophils 0 % (0-8) Platelet Estimate Adequate Platelet Morphology Normal Hypochromasia 2+ Anisocytosis 1+ Spherocytes 1+ Sodium Level 136 MMOL/L (136-145) Potassium Level 3.6 MMOL/L (3.5-5.1) Chloride Level 105 MMOL/L (98-107) Carbon Dioxide Level 18 MMOL/L (21-32) L Anion Gap 13 mmol/L (5-15) Blood Urea Nitrogen 51 mg/dL (7-18) H Creatinine 3.1 MG/DL (0.55-1.30) H Estimat Glomerular Filtration Rate 19.9 mL/min (>60) Glucose Level 192 MG/DL (74-106) H Uric Acid 8.0 MG/DL (2.6-7.2) H Calcium Level 6.5 MG/DL (8.5-10.1) L Phosphorus Level 7.6 MG/DL (2.5-4.9) H Magnesium Level 2.1 MG/DL (1.8-2.4) Total Bilirubin 0.4 MG/DL (0.2-1.0) Aspartate Amino Transf (AST/SGOT) 46 U/L (15-37) H Alanine Aminotransferase (ALT/SGPT) 7 U/L (12-78) L Alkaline Phosphatase 75 U/L (46-116) C-Reactive Protein, Quantitative 5.3 mg/dL (0.00-0.90) H Total Protein 4.7 G/DL (6.4-8.2) L Albumin 0.9 G/DL (3.4-5.0) L Globulin 3.8 g/dL Albumin/Globulin Ratio 0.2 (1.0-2.7) L Arterial Blood pH 7.282 (7.350-7.450) Arterial Blood Partial Pressure CO2 34.2 mmHg (35.0-45.0) L Arterial Blood Partial Pressure O2 104.5 mmHg (75.0-100.0) H Arterial Blood HCO3 15.8 mmol/L (22.0-26.0) *L Arterial Blood Oxygen Saturation 97.3 % (95-100) Arterial Blood Base Excess -10 (-2-2) *L Michael Test Positive Urine Color Brown Urine Appearance Cloudy Urine pH 5 (4.5-8.0) Urine Specific Gary 1.025 (1.005-1.035) Urine Protein 3+ (NEGATIVE) H Urine Glucose (UA) Negative (NEGATIVE) Urine Ketones 1+ (NEGATIVE) H Urine Blood 5+ (NEGATIVE) H Urine Nitrite Positive (NEGATIVE) H Urine Bilirubin Negative (NEGATIVE) Urine Urobilinogen 1 MG/DL (0.0-1.0) H Urine Leukocyte Esterase 2+ (NEGATIVE) H Urine RBC 10-15 /HPF (0 - 0) H Urine WBC 15-20 /HPF (0 - 0) H Urine Squamous Epithelial Cells Few /LPF (NONE/OCC) Urine Bacteria Moderate /HPF (NONE) H Urine Yeast Many /HPF (NONE) H Objective pt seen but nto examined due to Chris Bush MD Nov 24, 2019 19:51
[2019-11-24] MEDS: Dyna-Hex 2% Top Sol 2oz TOPIC SCH (21:12)
[2019-11-24] MEDS: Cefepime HCl 1 GM in D5W 55 ML IVPB SCH (21:13)
--- NOTE | 2019-11-24 23:38 | Cardiology Progress Note ---
Assessment/Plan Assessment/Plan 1. covid 19 pneumonia 2. History of cerebrovascular accident. 3. History of carotid occlusion. 4. Bilateral infiltrates and pneumonia. 5. Aphasia. 6. Diabetes mellitus. 7. Hyponatremia. 8. Renal insufficiency 9. 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 asystolic arrest probably aspiration with subequent hypoxemia relasted 12. aspiration per er md ross intubation " There was significant gastric contents in the patient's pharynx." 13 septic shock remains on a vent remain off pressore per rn not moving any ext wbc increased cr worsening urine out put is lwo on free water na stable abx per ID s/p resmeidivir tele sinus tachy , now on 40% on the vent pressor now off for judith moment vent support trop neg neuro poor consider neuro eval Subjective ROS Limited/Unobtainable: Yes Subjective moderate amount of leaked loose BM. Turned and repositioned patient. Patient is still comatose in bed. Generalized swelling still noted. BP 106/49 off Levophed. Objective Last 24 Hour Vital Signs Date Time Temp Pulse Resp B/P (MAP) Pulse Ox O2 Delivery O2 Flow Rate FiO2 11/24/19 23:24 71 20 35 11/24/19 22:30 76 20 113/46 (68) 99 11/24/19 22:00 69 20 105/48 (67) 99 11/24/19 21:30 66 20 107/50 (69) 100 11/24/19 21:00 66 20 106/47 (66) 100 11/24/19 20:30 69 20 104/46 (65) 100 11/24/19 20:00 35 11/24/19 20:00 70 11/24/19 20:00 66 20 109/50 (69) 100 11/24/19 20:00 Mechanical Ventilator 11/24/19 19:58 67 20 35 11/24/19 19:30 68 20 106/49 (68) 100 11/24/19 19:15 67 20 109/51 (70) 100 11/24/19 19:00 66 20 105/51 (69) 100 11/24/19 18:34 70 20 113/52 (72) 100 11/24/19 18:00 70 20 111/49 (69) 99 11/24/19 17:30 68 20 104/49 (67) 99 11/24/19 17:00 70 20 104/50 (68) 99 11/24/19 16:00 35 11/24/19 16:00 98.5 72 20 101/47 (65) 99 11/24/19 16:00 Mechanical Ventilator 11/24/19 15:49 73 11/24/19 15:30 71 20 98/45 (62) 99 11/24/19 15:29 71 19 99/47 (64) 99 11/24/19 15:15 84 19 108/49 (68) 100 11/24/19 15:12 73 20 35 11/24/19 15:00 74 20 98/45 (62) 99 11/24/19 14:45 83 20 122/60 (80) 97 11/24/19 14:30 83 20 122/60 (80) 97 11/24/19 14:15 83 20 124/62 (82) 98 11/24/19 14:00 82 20 124/62 (82) 99 11/24/19 14:00 124/62 11/24/19 13:45 71 20 107/54 (71) 100 11/24/19 13:30 72 20 107/54 (71) 100 11/24/19 13:15 71 20 109/51 (70) 100 11/24/19 13:00 75 20 119/51 (73) 100 11/24/19 13:00 109/51 11/24/19 13:00 75 20 119/51 (73) 100 11/24/19 12:45 68 20 104/50 (68) 100 11/24/19 12:45 68 20 107/50 (69) 100 11/24/19 12:44 68 20 107/50 (69) 100 11/24/19 12:36 68 20 103/48 (66) 100 11/24/19 12:30 70 20 114/54 (74) 100 11/24/19 12:30 70 20 114/54 (74) 100 11/24/19 12:15 69 20 114/54 (74) 100 11/24/19 12:15 69 20 100 11/24/19 12:00 Mechanical Ventilator 11/24/19 12:00 80 11/24/19 12:00 114/54 11/24/19 12:00 98.2 71 20 113/54 (73) 100 11/24/19 12:00 35 11/24/19 11:30 70 16 117/58 (77) 100 11/24/19 11:15 71 20 35 11/24/19 11:00 71 20 114/56 (75) 100 11/24/19 11:00 114/56 11/24/19 10:30 72 20 110/52 (71) 100 11/24/19 10:00 73 20 109/53 (71) 98 11/24/19 10:00 109/53 11/24/19 09:30 68 20 100/50 (67) 100 11/24/19 09:00 115/56 11/24/19 09:00 68 20 100/50 (67) 100 11/24/19 08:45 69 20 115/56 (75) 100 11/24/19 08:30 68 20 119/56 (77) 100 11/24/19 08:15 68 20 113/55 (74) 100 11/24/19 08:00 Mechanical Ventilator 11/24/19 08:00 83 11/24/19 08:00 113/55 11/24/19 08:00 98.0 68 20 113/55 (74) 100 11/24/19 08:00 35 11/24/19 07:06 70 20 35 11/24/19 07:00 70 20 110/55 (73) 100 11/24/19 07:00 108/54 11/24/19 06:30 71 20 107/53 (71) 100 11/24/19 06:00 71 21 103/53 (70) 99 11/24/19 06:00 107/53 11/24/19 05:30 72 20 105/53 (70) 100 11/24/19 05:00 105/53 11/24/19 05:00 72 20 103/49 (67) 100 11/24/19 04:30 76 20 106/51 (69) 100 11/24/19 04:00 93 11/24/19 04:00 35 11/24/19 04:00 106/51 11/24/19 04:00 98.0 79 20 100/49 (66) 100 11/24/19 04:00 Mechanical Ventilator 11/24/19 03:30 77 21 95/47 (63) 96 11/24/19 03:15 71 20 35 11/24/19 03:00 108/50 11/24/19 03:00 72 20 103/50 (67) 98 11/24/19 02:30 71 20 108/50 (69) 100 11/24/19 02:00 115/60 11/24/19 02:00 71 20 106/49 (68) 100 11/24/19 01:30 72 20 103/51 (68) 100 11/24/19 01:00 74 20 102/50 (67) 100 11/24/19 01:00 103/51 11/24/19 00:30 75 20 100/49 (66) 100 11/24/19 00:00 75 11/24/19 00:00 35 11/24/19 00:00 100/49 11/24/19 00:00 Mechanical Ventilator 11/24/19 00:00 99.0 78 20 117/60 (79) 100 General Appearance: no apparent distress, on vent, patient on isolation, isolation precautions Extremities: trace edema Intake and Output 11/23/19 11/24/19 19:00 07:00 Intake Total 1429.14 ml 1547.09 ml Output Total 135 ml 1310 ml Balance 1294.14 ml 237.09 ml Free Water 50 ml IV Total 1009.14 ml 1077.09 ml Tube Feeding 320 ml 420 ml Other 100 ml Output Urine Total 35 ml 10 ml Stool Total 100 ml 300 ml Hemodialysis UF 1000 ml Laboratory Tests Test 11/24/19 04:05 11/24/19 08:00 11/24/19 12:30 White Blood Count 27.4 K/UL (4.8-10.8) *H Red Blood Count 3.14 M/UL (4.70-6.10) L Hemoglobin 9.1 G/DL (14.2-18.0) L Hematocrit 25.8 % (42.0-52.0) L Mean Corpuscular Volume 82 FL (80-99) Mean Corpuscular Hemoglobin 28.9 PG (27.0-31.0) Mean Corpuscular Hemoglobin Concent 35.3 G/DL (32.0-36.0) Red Cell Distribution Width 14.0 % (11.6-14.8) Platelet Count 310 K/UL (150-450) # Mean Platelet Volume 6.2 FL (6.5-10.1) L Neutrophils (%) (Auto) % (45.0-75.0) Lymphocytes (%) (Auto) % (20.0-45.0) Monocytes (%) (Auto) % (1.0-10.0) Eosinophils (%) (Auto) % (0.0-3.0) Basophils (%) (Auto) % (0.0-2.0) Differential Total Cells Counted 100 Neutrophils % (Manual) 97 % (45-75) H Lymphocytes % (Manual) 2 % (20-45) L Monocytes % (Manual) 1 % (1-10) Eosinophils % (Manual) 0 % (0-3) Basophils % (Manual) 0 % (0-2) Band Neutrophils 0 % (0-8) Platelet Estimate Adequate Platelet Morphology Normal Hypochromasia 2+ Anisocytosis 1+ Spherocytes 1+ Sodium Level 136 MMOL/L (136-145) Potassium Level 3.6 MMOL/L (3.5-5.1) Chloride Level 105 MMOL/L (98-107) Carbon Dioxide Level 18 MMOL/L (21-32) L Anion Gap 13 mmol/L (5-15) Blood Urea Nitrogen 51 mg/dL (7-18) H Creatinine 3.1 MG/DL (0.55-1.30) H Estimat Glomerular Filtration Rate 19.9 mL/min (>60) Glucose Level 192 MG/DL (74-106) H Uric Acid 8.0 MG/DL (2.6-7.2) H Calcium Level 6.5 MG/DL (8.5-10.1) L Phosphorus Level 7.6 MG/DL (2.5-4.9) H Magnesium Level 2.1 MG/DL (1.8-2.4) Total Bilirubin 0.4 MG/DL (0.2-1.0) Aspartate Amino Transf (AST/SGOT) 46 U/L (15-37) H Alanine Aminotransferase (ALT/SGPT) 7 U/L (12-78) L Alkaline Phosphatase 75 U/L (46-116) C-Reactive Protein, Quantitative 5.3 mg/dL (0.00-0.90) H Total Protein 4.7 G/DL (6.4-8.2) L Albumin 0.9 G/DL (3.4-5.0) L Globulin 3.8 g/dL Albumin/Globulin Ratio 0.2 (1.0-2.7) L Arterial Blood pH 7.282 (7.350-7.450) Arterial Blood Partial Pressure CO2 34.2 mmHg (35.0-45.0) L Arterial Blood Partial Pressure O2 104.5 mmHg (75.0-100.0) H Arterial Blood HCO3 15.8 mmol/L (22.0-26.0) *L Arterial Blood Oxygen Saturation 97.3 % (95-100) Arterial Blood Base Excess -10 (-2-2) *L Michael Test Positive Urine Color Brown Urine Appearance Cloudy Urine pH 5 (4.5-8.0) Urine Specific [place] 1.025 (1.005-1.035) Urine Protein 3+ (NEGATIVE) H Urine Glucose (UA) Negative (NEGATIVE) Urine Ketones 1+ (NEGATIVE) H Urine Blood 5+ (NEGATIVE) H Urine Nitrite Positive (NEGATIVE) H Urine Bilirubin Negative (NEGATIVE) Urine Urobilinogen 1 MG/DL (0.0-1.0) H Urine Leukocyte Esterase 2+ (NEGATIVE) H Urine RBC 10-15 /HPF (0 - 0) H Urine WBC 15-20 /HPF (0 - 0) H Urine Squamous Epithelial Cells Few /LPF (NONE/OCC) Urine Bacteria Moderate /HPF (NONE) H Urine Yeast Many /HPF (NONE) H Objective pt seen but nto examined due to Chris Bush MD Nov 24, 2019 23:38
[2019-11-25] VITALS (37 sets, daily range): BP systolic 99–144; BP diastolic 47–72
[2019-11-25] MEDS: Renvela 800mg Pkt NG SCH ×5 (00:08→17:16)
[2019-11-25] MEDS: D5NS 1,000 ML IV SCH (03:51)
[2019-11-25] MEDS: Midodrine 10mg tab ORAL SCH ×3 (05:41→21:07)
[2019-11-25 05:46] LABS: HEMATOCRIT 24.1 % (42.0-52.0); MEAN CORPUSCULAR VOLUME 87 FL (80-99); PLATELET COUNT 246 K/UL (150-450); RED BLOOD COUNT 2.76 M/UL (4.70-6.10); RED CELL DISTRIBUTION WIDTH 14.1 % (11.6-14.8); WHITE BLOOD COUNT 19.7 K/UL (4.8-10.8)
[2019-11-25 06:04] LABS: AMYLASE 269 U/L (25-115)
[2019-11-25 06:07] LABS: ALANINE AMINOTRANSFERASE < 6 U/L (12-78); ALBUMIN 1.2 G/DL (3.4-5.0); ALBUMIN/GLOBULIN RATIO 0.4 (1.0-2.7); ALKALINE PHOSPHATASE 64 U/L (46-116); ANION GAP 14 mmol/L (5-15); ASPARTATE AMINO TRANSFERASE 54 U/L (15-37); BILIRUBIN,TOTAL 0.3 MG/DL (0.2-1.0); BLOOD UREA NITROGEN 54 mg/dL (7-18); CALCIUM 6.7 MG/DL (8.5-10.1); CARBON DIOXIDE 17 MMOL/L (21-32); CHLORIDE 106 MMOL/L (98-107); CREATININE 3.3 MG/DL (0.55-1.30); PHOSPHORUS 5.6 MG/DL (2.5-4.9); POTASSIUM 3.6 MMOL/L (3.5-5.1); SODIUM 137 MMOL/L (136-145)
--- NOTE | 2019-11-25 08:18 | Hematology/Onc Progress Note ---
Assessment/Plan Assessment/Plan Assessment and Recs # Leukocytosis/elevated white blood cell count, unspecified likely related to underlying stress reaction, smoking v more likely infection, in this case with pna and [id number]++++++++ --> have reviewed peripheral smear and bandemia/neutrophilia noted --> continue antibiotics if they have been started by ID team --> monitor for resolution --> wbc 35k-->31.2-->25-->27.4 -->25-->20.7-->18.6 -->27-->19.7 --> abx/antivral: remdesivir/vanc/cefepime-->vanc/flagyl/monique-->linezolid/monique-- >cefepime/zyvox/vanc # Thrombocytosis - if plt count >400k, most usually is a reactive process and will improve once exacerbant removed as well --> in this case due to underlying infection --> plt trend 646k-->672 -->547-->372-->345-->149 -->246 # Anemia of chronic disease due to underlying chronic medical issues, multifactorial v Gi bleed --> Anemia workup has been ordered, rule out gi bleed -> ferritin 1339 --> No evidence of hemolysis is noted, peripheral smear has been reviewed. --> Hgb goal >7. Transfuse prn. --> Epogen or iron at this time is not particularly indicated --> Medications have been reviewed --> low threshold for gi evaluation in case has occult + --> bone marrow biopsy is not indicated given the other more likely causes --> hgb 9.5-->9.8->8.8-->8.6-->7.5-->9.5-->7.5 -->9.1-->8 --> 1 unit prbc 11/20 --> ddimer remains elevated currently # Acute hypoxic resp failure- on NRB 15L- 2ry to COVID19 --> per id and pulm recs --> breathing treatments and rep cxr --> 11/15 cxr: New/increased infiltrates at the left lateral lung base # UTI c/w bacteremia --> abx per id # Cdiff colitis # MONICA, improving # Deep tissue injury (sacrum, L heel) # HTN # Dm2 # MDD # Dysphagia s/p GT # malnutrition # decubitus ulcer # non verbal # 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 Greatly appreciate consultation. Subjective Allergies: Coded Allergies: No Known Allergies (Unverified , 09/16/19) Subjective 11/15 tele, no acute events, cxr and labs reviewed, nrb 15l, remdesivir 11/16 remains on iso, breathing is improved, no night sweats 11/17 remains with fever, cooling blankets, labs noted, no bleed hgb 8.8 11/19 icu, no acute events, vent, levo gtt, meds and labs reviewed 11/20 labs noted, no bleeding, in icu, hgb 7.5, to get one unit prbc, wbc elev 25 11/21 non verbal, s/p blood, hgb improved to 9.5, vent, iv abx 11/22 icu, no new changes, labs reviewed, levo gtt 11/23 labs are noted, no bleeding, in icu, on levo, wbc 27, hgb 9 11/24 nonverbal, no new changes, afebrile Objective Objective Current Medications Medications (Trade) Dose Ordered Sig/Leonor Route PRN Reason Start Time Stop Time Status Last Admin Dose Admin Acetaminophen (Tylenol) 650 mg Q4H PRN GT fever 11/18/19 03:00 12/11/19 02:59 11/19/19 20:04 Allopurinol (allopurinoL) 300 mg DAILY GT 11/21/19 09:00 12/21/19 08:59 11/24/19 08:16 Calcium Gluconate 1 gm/Sodium Chloride 120 ml @ 240 mls/hr Q12HR IVPB 11/22/19 09:00 12/22/19 08:59 11/24/19 21:13 Cefepime HCl 1 gm/ Dextrose 55 ml @ 110 mls/hr EVERY 12 HOURS IVPB 11/24/19 21:00 12/01/19 20:59 11/24/19 21:13 Chlorhexidine Gluconate (Danielle-Hex 2%) 1 applic DAILY@1999 TOPIC 11/18/19 20:00 02/16/20 19:59 11/24/19 21:12 Dextrose/Sodium Chloride 1,000 ml @ 50 mls/hr Q20H IV 11/22/19 10:15 12/20/19 10:14 11/25/19 03:51 Heparin Sodium (Porcine) (Heparin 5000 units/ml) 5,000 units EVERY 12 HOURS SUBQ 11/18/19 09:00 12/26/19 08:59 11/24/19 21:14 Heparin Sodium/ Sodium Chloride (Heparin 1000 units/500ml Premix) 1,000 unit ONCE PRN IV radiology procedure 11/23/19 11:15 11/25/19 11:14 Lidocaine HCl (Xylocaine 1% 30ml) 30 ml ONCE PRN INJ radiology procedure 11/23/19 11:15 11/25/19 11:14 Linezolid (Zyvox) 600 mg EVERY 12 HOURS ORAL 11/22/19 21:00 11/27/19 20:59 11/24/19 21:13 Lorazepam (Ativan 2mg/ml 1ml) 2 mg Q4H PRN IV For Anxiety 11/18/19 12:10 11/25/19 12:09 11/20/19 03:50 Midodrine (Pro-Amatine) 10 mg Q8HR ORAL 11/22/19 14:00 02/20/20 13:59 11/25/19 05:41 Morphine Sulfate (Morphine Sulfate) 4 mg Q4H PRN IVP For Pain 11/18/19 12:10 11/25/19 12:09 Norepinephrine Bitartrate 8 mg/ Dextrose 558 ml @ 0 mls/hr Q24H IV 11/18/19 10:00 12/18/19 09:59 11/23/19 22:22 Ondansetron HCl (Zofran) 4 mg Q6H PRN IVP Nausea & Vomiting 11/18/19 03:00 12/11/19 08:59 Pantoprazole (Protonix) 40 mg DAILY IV 11/19/19 09:00 12/19/19 08:59 11/24/19 08:16 Sevelamer Carbonate (Renvela) 800 mg Q6HR NG 11/22/19 08:00 02/20/20 07:59 11/25/19 05:40 Vancomycin HCl (Firvanq) 125 mg FOUR TIMES A DAY NG 11/18/19 09:00 11/26/19 23:59 11/24/19 21:23 Last 24 Hour Vital Signs Date Time Temp Pulse Resp B/P (MAP) Pulse Ox O2 Delivery O2 Flow Rate FiO2 11/25/19 07:00 97.5 77 22 112/56 (74) 98 11/25/19 06:00 79 22 103/49 (67) 98 11/25/19 05:00 76 20 105/47 (66) 100 11/25/19 04:00 69 20 111/52 (71) 99 11/25/19 04:00 71 11/25/19 04:00 Mechanical Ventilator 11/25/19 04:00 35 11/25/19 03:30 73 20 35 11/25/19 03:00 71 20 119/53 (75) 100 11/25/19 02:00 68 20 105/51 (69) 99 11/25/19 01:00 65 20 99/50 (66) 100 11/25/19 00:00 72 11/25/19 00:00 Mechanical Ventilator 11/25/19 00:00 35 11/25/19 00:00 97.7 68 20 105/51 (69) 99 11/24/19 23:24 71 20 35 11/24/19 23:00 68 20 108/48 (68) 99 11/24/19 22:30 76 20 113/46 (68) 99 11/24/19 22:00 69 20 105/48 (67) 99 11/24/19 21:30 66 20 107/50 (69) 100 11/24/19 21:00 66 20 106/47 (66) 100 11/24/19 20:30 69 20 104/46 (65) 100 11/24/19 20:00 35 11/24/19 20:00 70 11/24/19 20:00 66 20 109/50 (69) 100 11/24/19 20:00 Mechanical Ventilator 11/24/19 19:58 67 20 35 11/24/19 19:30 68 20 106/49 (68) 100 11/24/19 19:15 67 20 109/51 (70) 100 11/24/19 19:00 66 20 105/51 (69) 100 11/24/19 18:34 70 20 113/52 (72) 100 11/24/19 18:00 70 20 111/49 (69) 99 11/24/19 17:30 68 20 104/49 (67) 99 11/24/19 17:00 70 20 104/50 (68) 99 11/24/19 16:00 35 11/24/19 16:00 98.5 72 20 101/47 (65) 99 11/24/19 16:00 Mechanical Ventilator 11/24/19 15:49 73 11/24/19 15:30 71 20 98/45 (62) 99 11/24/19 15:29 71 19 99/47 (64) 99 11/24/19 15:15 84 19 108/49 (68) 100 11/24/19 15:12 73 20 35 11/24/19 15:00 74 20 98/45 (62) 99 11/24/19 14:45 83 20 122/60 (80) 97 11/24/19 14:30 83 20 122/60 (80) 97 11/24/19 14:15 83 20 124/62 (82) 98 11/24/19 14:00 82 20 124/62 (82) 99 11/24/19 14:00 124/62 11/24/19 13:45 71 20 107/54 (71) 100 11/24/19 13:30 72 20 107/54 (71) 100 11/24/19 13:15 71 20 109/51 (70) 100 11/24/19 13:00 75 20 119/51 (73) 100 11/24/19 13:00 109/51 11/24/19 13:00 75 20 119/51 (73) 100 11/24/19 12:45 68 20 104/50 (68) 100 11/24/19 12:45 68 20 107/50 (69) 100 11/24/19 12:44 68 20 107/50 (69) 100 11/24/19 12:36 68 20 103/48 (66) 100 11/24/19 12:30 70 20 114/54 (74) 100 11/24/19 12:30 70 20 114/54 (74) 100 11/24/19 12:15 69 20 114/54 (74) 100 11/24/19 12:15 69 20 100 11/24/19 12:00 Mechanical Ventilator 11/24/19 12:00 80 11/24/19 12:00 114/54 11/24/19 12:00 98.2 71 20 113/54 (73) 100 11/24/19 12:00 35 11/24/19 11:30 70 16 117/58 (77) 100 11/24/19 11:15 71 20 35 11/24/19 11:00 71 20 114/56 (75) 100 11/24/19 11:00 114/56 11/24/19 10:30 72 20 110/52 (71) 100 11/24/19 10:00 73 20 109/53 (71) 98 11/24/19 10:00 109/53 11/24/19 09:30 68 20 100/50 (67) 100 11/24/19 09:00 115/56 11/24/19 09:00 68 20 100/50 (67) 100 11/24/19 08:45 69 20 115/56 (75) 100 11/24/19 08:30 68 20 119/56 (77) 100 11/24/19 08:15 68 20 113/55 (74) 100 11/24/19 08:00 Mechanical Ventilator 11/24/19 08:00 83 11/24/19 08:00 113/55 11/24/19 08:00 98.0 68 20 113/55 (74) 100 11/24/19 08:00 35 11/24/19 07:06 70 20 35 11/24/19 07:00 70 20 110/55 (73) 100 11/24/19 07:00 108/54 11/24/19 06:30 71 20 107/53 (71) 100 11/24/19 06:00 71 21 103/53 (70) 99 11/24/19 06:00 107/53 11/24/19 05:30 72 20 105/53 (70) 100 11/24/19 05:00 105/53 11/24/19 05:00 72 20 103/49 (67) 100 11/24/19 04:30 76 20 106/51 (69) 100 11/24/19 04:00 93 11/24/19 04:00 35 11/24/19 04:00 106/51 11/24/19 04:00 98.0 79 20 100/49 (66) 100 11/24/19 04:00 Mechanical Ventilator 11/24/19 03:30 77 21 95/47 (63) 96 11/24/19 03:15 71 20 35 11/24/19 03:00 108/50 11/24/19 03:00 72 20 103/50 (67) 98 11/24/19 02:30 71 20 108/50 (69) 100 11/24/19 02:00 115/60 11/24/19 02:00 71 20 106/49 (68) 100 11/24/19 01:30 72 20 103/51 (68) 100 11/24/19 01:00 74 20 102/50 (67) 100 11/24/19 01:00 103/51 11/24/19 00:30 75 20 100/49 (66) 100 11/24/19 00:00 75 11/24/19 00:00 35 11/24/19 00:00 100/49 11/24/19 00:00 Mechanical Ventilator 11/24/19 00:00 99.0 78 20 117/60 (79) 100 11/23/19 23:30 77 20 107/53 (71) 100 11/23/19 23:20 76 20 35 11/23/19 23:00 82 20 116/60 (78) 100 11/23/19 23:00 107/53 11/23/19 22:30 81 20 119/57 (77) 100 11/23/19 22:22 118/59 11/23/19 22:00 119/57 11/23/19 22:00 81 20 118/59 (78) 100 11/23/19 21:30 83 20 109/59 (76) 100 11/23/19 21:00 87 20 131/62 (85) 100 11/23/19 21:00 127/63 11/23/19 20:30 85 23 112/60 (77) 100 11/23/19 20:00 99.0 83 22 99/50 (66) 99 11/23/19 20:00 99/50 11/23/19 20:00 Mechanical Ventilator 11/23/19 19:45 83 23 112/45 (67) 100 11/23/19 19:40 77 22 35 11/23/19 19:30 85 22 120/53 (75) 100 11/23/19 19:00 85 21 140/59 (86) 97 11/23/19 18:30 90 22 97/53 (68) 100 11/23/19 18:00 90/44 11/23/19 18:00 77 21 90/44 (59) 99 11/23/19 17:30 81 22 97/46 (63) 100 11/23/19 17:00 94 20 90/50 (63) 100 11/23/19 17:00 90/50 11/23/19 16:59 86 11/23/19 16:30 98.0 76 21 99/50 (66) 100 11/23/19 16:00 Mechanical Ventilator 11/23/19 16:00 81 20 97/49 (65) 100 11/23/19 16:00 77 22 108/52 (70) 100 11/23/19 16:00 35 11/23/19 16:00 108/52 11/23/19 15:30 81 13 108/57 (74) 100 11/23/19 15:00 81 20 97/49 (65) 100 11/23/19 15:00 108/53 11/23/19 15:00 81 22 35 11/23/19 14:45 85 15 97/49 (65) 100 11/23/19 14:30 80 20 91/47 (62) 100 11/23/19 14:00 91/47 11/23/19 14:00 92 19 91/47 (62) 99 11/23/19 13:30 89 21 95/49 (64) 99 11/23/19 13:00 94/47 11/23/19 13:00 92 21 93/43 (60) 99 11/23/19 12:30 87 21 102/48 (66) 100 11/23/19 12:00 99.0 87 22 100/48 (65) 99 11/23/19 12:00 Mechanical Ventilator 11/23/19 12:00 102/47 11/23/19 12:00 35 11/23/19 11:47 87 11/23/19 11:30 88 22 104/48 (66) 99 11/23/19 11:00 105/48 11/23/19 11:00 87 21 35 11/23/19 11:00 87 21 105/48 (67) 99 11/23/19 10:30 85 21 104/50 (68) 99 11/23/19 10:00 87 21 101/46 (64) 99 11/23/19 10:00 103/48 11/23/19 09:50 100 11/23/19 09:30 90 22 107/48 (67) 99 11/23/19 09:00 101/46 11/23/19 09:00 83 21 97/44 (61) 99 11/23/19 08:30 78 21 96/46 (63) 99 Intake and Output 11/24/19 11/25/19 18:59 06:59 Intake Total 1704.03 ml 1220 ml Output Total 425 ml 0 ml Balance 1279.03 ml 1220 ml IV Total 1134.03 ml 775 ml Tube Feeding 420 ml 385 ml Other 150 ml 60 ml Output Urine Total 25 ml 0 ml Stool Total 400 ml Labs Test 11/22/19 10:35 11/23/19 04:00 11/24/19 04:05 11/24/19 08:00 Urine Random Sodium 20 mmol/L (20-110) White Blood Count 18.6 K/UL (4.8-10.8) 27.4 K/UL (4.8-10.8) Red Blood Count 2.65 M/UL (4.70-6.10) 3.14 M/UL (4.70-6.10) Hemoglobin 7.5 G/DL (14.2-18.0) 9.1 G/DL (14.2-18.0) Hematocrit 21.9 % (42.0-52.0) 25.8 % (42.0-52.0) Mean Corpuscular Volume 83 FL (80-99) 82 FL (80-99) Mean Corpuscular Hemoglobin 28.2 PG (27.0-31.0) 28.9 PG (27.0-31.0) Mean Corpuscular Hemoglobin Concent 34.2 G/DL (32.0-36.0) 35.3 G/DL (32.0-36.0) Red Cell Distribution Width 14.2 % (11.6-14.8) 14.0 % (11.6-14.8) Platelet Count 149 K/UL (150-450) 310 K/UL (150-450) Mean Platelet Volume 5.4 FL (6.5-10.1) 6.2 FL (6.5-10.1) Neutrophils (%) (Auto) % (45.0-75.0) % (45.0-75.0) Lymphocytes (%) (Auto) % (20.0-45.0) % (20.0-45.0) Monocytes (%) (Auto) % (1.0-10.0) % (1.0-10.0) Eosinophils (%) (Auto) % (0.0-3.0) % (0.0-3.0) Basophils (%) (Auto) % (0.0-2.0) % (0.0-2.0) Differential Total Cells Counted 100 100 Neutrophils % (Manual) 86 % (45-75) 97 % (45-75) Lymphocytes % (Manual) 7 % (20-45) 2 % (20-45) Monocytes % (Manual) 7 % (1-10) 1 % (1-10) Eosinophils % (Manual) 0 % (0-3) 0 % (0-3) Basophils % (Manual) 0 % (0-2) 0 % (0-2) Band Neutrophils 0 % (0-8) 0 % (0-8) Platelet Estimate Decreased Adequate Platelet Morphology Normal Normal Hypochromasia 3+ 2+ Anisocytosis 1+ 1+ Sodium Level 134 MMOL/L (136-145) 136 MMOL/L (136-145) Potassium Level 4.7 MMOL/L (3.5-5.1) 3.6 MMOL/L (3.5-5.1) Chloride Level 106 MMOL/L (98-107) 105 MMOL/L (98-107) Carbon Dioxide Level 14 MMOL/L (21-32) 18 MMOL/L (21-32) Anion Gap 15 mmol/L (5-15) 13 mmol/L (5-15) Blood Urea Nitrogen 68 mg/dL (7-18) 51 mg/dL (7-18) Creatinine 3.7 MG/DL (0.55-1.30) 3.1 MG/DL (0.55-1.30) Estimat Glomerular Filtration Rate 16.2 mL/min (>60) 19.9 mL/min (>60) Glucose Level 127 MG/DL (74-106) 192 MG/DL (74-106) Uric Acid 10.8 MG/DL (2.6-7.2) 8.0 MG/DL (2.6-7.2) Calcium Level 6.4 MG/DL (8.5-10.1) 6.5 MG/DL (8.5-10.1) Phosphorus Level 7.8 MG/DL (2.5-4.9) 7.6 MG/DL (2.5-4.9) Magnesium Level 2.1 MG/DL (1.8-2.4) 2.1 MG/DL (1.8-2.4) Total Bilirubin 0.3 MG/DL (0.2-1.0) 0.4 MG/DL (0.2-1.0) Aspartate Amino Transf (AST/SGOT) 75 U/L (15-37) 46 U/L (15-37) Alanine Aminotransferase (ALT/SGPT) 14 U/L (12-78) 7 U/L (12-78) Alkaline Phosphatase 82 U/L (46-116) 75 U/L (46-116) C-Reactive Protein, Quantitative 5.2 mg/dL (0.00-0.90) 5.3 mg/dL (0.00-0.90) Pro-B-Type Natriuretic Peptide 4097 pg/mL (0-125) Total Protein 5.0 G/DL (6.4-8.2) 4.7 G/DL (6.4-8.2) Albumin 1.0 G/DL (3.4-5.0) 0.9 G/DL (3.4-5.0) Globulin 4.0 g/dL 3.8 g/dL Albumin/Globulin Ratio 0.2 (1.0-2.7) 0.2 (1.0-2.7) Spherocytes 1+ Arterial Blood pH 7.282 (7.350-7.450) Arterial Blood Partial Pressure CO2 34.2 mmHg (35.0-45.0) Arterial Blood Partial Pressure O2 104.5 mmHg (75.0-100.0) Arterial Blood HCO3 15.8 mmol/L (22.0-26.0) Arterial Blood Oxygen Saturation 97.3 % (95-100) Arterial Blood Base Excess -10 (-2-2) Michael Test Positive Test 11/24/19 12:30 11/25/19 04:30 Urine Color Brown Urine Appearance Cloudy Urine pH 5 (4.5-8.0) Urine Specific Lilly 1.025 (1.005-1.035) Urine Protein 3+ (NEGATIVE) Urine Glucose (UA) Negative (NEGATIVE) Urine Ketones 1+ (NEGATIVE) Urine Blood 5+ (NEGATIVE) Urine Nitrite Positive (NEGATIVE) Urine Bilirubin Negative (NEGATIVE) Urine Urobilinogen 1 MG/DL (0.0-1.0) Urine Leukocyte Esterase 2+ (NEGATIVE) Urine RBC 10-15 /HPF (0 - 0) Urine WBC 15-20 /HPF (0 - 0) Urine Squamous Epithelial Cells Few /LPF (NONE/OCC) Urine Bacteria Moderate /HPF (NONE) Urine Yeast Many /HPF (NONE) White Blood Count 19.7 K/UL (4.8-10.8) Red Blood Count 2.76 M/UL (4.70-6.10) Hemoglobin 8.0 G/DL (14.2-18.0) Hematocrit 24.1 % (42.0-52.0) Mean Corpuscular Volume 87 FL (80-99) Mean Corpuscular Hemoglobin 28.9 PG (27.0-31.0) Mean Corpuscular Hemoglobin Concent 33.0 G/DL (32.0-36.0) Red Cell Distribution Width 14.1 % (11.6-14.8) Platelet Count 246 K/UL (150-450) Mean Platelet Volume 7.0 FL (6.5-10.1) Neutrophils (%) (Auto) % (45.0-75.0) Lymphocytes (%) (Auto) % (20.0-45.0) Monocytes (%) (Auto) % (1.0-10.0) Eosinophils (%) (Auto) % (0.0-3.0) Basophils (%) (Auto) % (0.0-2.0) Sodium Level 137 MMOL/L (136-145) Potassium Level 3.6 MMOL/L (3.5-5.1) Chloride Level 106 MMOL/L (98-107) Carbon Dioxide Level 17 MMOL/L (21-32) Anion Gap 14 mmol/L (5-15) Blood Urea Nitrogen 54 mg/dL (7-18) Creatinine 3.3 MG/DL (0.55-1.30) Estimat Glomerular Filtration Rate 18.5 mL/min (>60) Glucose Level 138 MG/DL (74-106) Uric Acid 8.2 MG/DL (2.6-7.2) Calcium Level 6.7 MG/DL (8.5-10.1) Phosphorus Level 5.6 MG/DL (2.5-4.9) Magnesium Level 2.0 MG/DL (1.8-2.4) Total Bilirubin 0.3 MG/DL (0.2-1.0) Aspartate Amino Transf (AST/SGOT) 54 U/L (15-37) Alanine Aminotransferase (ALT/SGPT) < 6 U/L (12-78) Alkaline Phosphatase 64 U/L (46-116) C-Reactive Protein, Quantitative 4.1 mg/dL (0.00-0.90) Pro-B-Type Natriuretic Peptide 3757 pg/mL (0-125) Total Protein 4.5 G/DL (6.4-8.2) Albumin 1.2 G/DL (3.4-5.0) Globulin 3.3 g/dL Albumin/Globulin Ratio 0.4 (1.0-2.7) Amylase Level 269 U/L (25-115) Lipase 769 U/L (73-393) Micro Microbiology Date/Time Source Procedure Growth Status 11/24/19 12:30 Urine,Clean Catch Urine Culture - Preliminary NO GROWTH Resulted Height (Feet): 6 Height (Inches): 0.00 Weight (Pounds): 185 Objective PE General: alert, chronically Ill Heent: nc, at Neck: full range of motion, supple, no meningismus Respiratory: chest non-tender, decreased breath sounds, crackles, vent++ Cardiovascular: no murmur, tachycardia Gastrointestinal: normal bowel sounds, non tender,+peg Musculoskeletal: back normal, normal range of motion, gait/station normal Neurologic: no pronator Deng Flowers MD Nov 25, 2019 08:18
[2019-11-25] MEDS: Calcium Gluconate 10% 1 GM in NS 110 ML IVPB SCH ×2 (08:41→20:29)
[2019-11-25] MEDS: Vancomycin oral 125mg/2.5ml NG SCH ×4 (08:42→20:29)
[2019-11-25] MEDS: Pantoprazole Inj IV SCH (08:42)
[2019-11-25] MEDS: Cefepime HCl 1 GM in D5W 55 ML IVPB SCH ×2 (08:43→20:27)
[2019-11-25] MEDS: Heparin 5000 units/ml inj SUBQ SCH ×2 (08:44→20:30)
--- NOTE | 2019-11-25 09:42 | Diagnostic Imaging Report ---
Indication: Reason For Exam: [id number] Technique: One view of the chest Comparison: 11/24/2019 Findings: Right basilar pleural effusion and likely parenchymal consolidation are unchanged. Stable satisfactory positions of endotracheal tube, right jugular temporary dialysis catheter. Impression: Unchanged, over one day, findings as above.
--- NOTE | 2019-11-25 09:49 | General Progress Note ---
Assessment/Plan Problem List: (1) DM (diabetes mellitus) ICD Codes: E11.9 - Type 2 diabetes mellitus without complications SNOMED: 98135139 (2) ARF (acute renal failure) ICD Codes: N17.9 - Acute kidney failure, unspecified SNOMED: 87042395 Qualifiers: Qualified Codes: N17.9 - Acute kidney failure, unspecified (3) Aspiration pneumonia ICD Codes: J69.0 - Pneumonitis due to inhalation of food and vomit SNOMED: 825890001 (4) UTI (urinary tract infection) ICD Codes: N39.0 - Urinary tract infection, site not specified SNOMED: 28204167 Qualifiers: Qualified Codes: N30.00 - Acute cystitis without hematuria (5) Hypertension ICD Codes: I10 - Essential (primary) hypertension SNOMED: 18247526 (6) Anemia ICD Codes: D64.9 - Anemia, unspecified SNOMED: 429429961 Qualifiers: Qualified Codes: D64.9 - Anemia, unspecified (7) Respiratory failure with hypoxia ICD Codes: J96.91 - Respiratory failure, unspecified with hypoxia SNOMED: 49097392499270455 Qualifiers: Qualified Codes: J96.01 - Acute respiratory failure with hypoxia (8) Suspected COVID-19 virus infection ICD Codes: Z20.828 - Contact with and (suspected) exposure to other viral communicable diseases SNOMED: 866636907 Status: unchanged Assessment/Plan: vent abx pt diet cbc bmp am Subjective Constitutional: Reports: weakness Allergies: Coded Allergies: No Known Allergies (Unverified , 09/16/19) All Systems: reviewed and negative except above Subjective intubated sedated in icu Objective Last 24 Hour Vital Signs Date Time Temp Pulse Resp B/P (MAP) Pulse Ox O2 Delivery O2 Flow Rate FiO2 11/25/19 07:09 68 21 35 11/25/19 07:00 97.5 77 22 112/56 (74) 98 11/25/19 06:00 79 22 103/49 (67) 98 11/25/19 05:00 76 20 105/47 (66) 100 11/25/19 04:00 69 20 111/52 (71) 99 11/25/19 04:00 71 11/25/19 04:00 Mechanical Ventilator 11/25/19 04:00 35 11/25/19 03:30 73 20 35 11/25/19 03:00 71 20 119/53 (75) 100 11/25/19 02:00 68 20 105/51 (69) 99 11/25/19 01:00 65 20 99/50 (66) 100 11/25/19 00:00 72 11/25/19 00:00 Mechanical Ventilator 11/25/19 00:00 35 11/25/19 00:00 97.7 68 20 105/51 (69) 99 11/24/19 23:24 71 20 35 11/24/19 23:00 68 20 108/48 (68) 99 11/24/19 22:30 76 20 113/46 (68) 99 11/24/19 22:00 69 20 105/48 (67) 99 11/24/19 21:30 66 20 107/50 (69) 100 11/24/19 21:00 66 20 106/47 (66) 100 11/24/19 20:30 69 20 104/46 (65) 100 11/24/19 20:00 35 11/24/19 20:00 70 11/24/19 20:00 66 20 109/50 (69) 100 11/24/19 20:00 Mechanical Ventilator 11/24/19 19:58 67 20 35 11/24/19 19:30 68 20 106/49 (68) 100 11/24/19 19:15 67 20 109/51 (70) 100 11/24/19 19:00 66 20 105/51 (69) 100 11/24/19 18:34 70 20 113/52 (72) 100 11/24/19 18:00 70 20 111/49 (69) 99 11/24/19 17:30 68 20 104/49 (67) 99 11/24/19 17:00 70 20 104/50 (68) 99 11/24/19 16:00 35 11/24/19 16:00 98.5 72 20 101/47 (65) 99 11/24/19 16:00 Mechanical Ventilator 11/24/19 15:49 73 11/24/19 15:30 71 20 98/45 (62) 99 11/24/19 15:29 71 19 99/47 (64) 99 11/24/19 15:15 84 19 108/49 (68) 100 11/24/19 15:12 73 20 35 11/24/19 15:00 74 20 98/45 (62) 99 11/24/19 14:45 83 20 122/60 (80) 97 11/24/19 14:30 83 20 122/60 (80) 97 11/24/19 14:15 83 20 124/62 (82) 98 11/24/19 14:00 82 20 124/62 (82) 99 11/24/19 14:00 124/62 11/24/19 13:45 71 20 107/54 (71) 100 11/24/19 13:30 72 20 107/54 (71) 100 11/24/19 13:15 71 20 109/51 (70) 100 11/24/19 13:00 75 20 119/51 (73) 100 11/24/19 13:00 109/51 11/24/19 13:00 75 20 119/51 (73) 100 11/24/19 12:45 68 20 104/50 (68) 100 11/24/19 12:45 68 20 107/50 (69) 100 11/24/19 12:44 68 20 107/50 (69) 100 11/24/19 12:36 68 20 103/48 (66) 100 11/24/19 12:30 70 20 114/54 (74) 100 11/24/19 12:30 70 20 114/54 (74) 100 11/24/19 12:15 69 20 114/54 (74) 100 11/24/19 12:15 69 20 100 11/24/19 12:00 Mechanical Ventilator 11/24/19 12:00 80 11/24/19 12:00 114/54 11/24/19 12:00 98.2 71 20 113/54 (73) 100 11/24/19 12:00 35 11/24/19 11:30 70 16 117/58 (77) 100 11/24/19 11:15 71 20 35 11/24/19 11:00 71 20 114/56 (75) 100 11/24/19 11:00 114/56 11/24/19 10:30 72 20 110/52 (71) 100 11/24/19 10:00 73 20 109/53 (71) 98 11/24/19 10:00 109/53 Intake and Output 11/24/19 11/25/19 19:00 07:00 Intake Total 1670.55 ml 1185 ml Output Total 425 ml 500 ml Balance 1245.55 ml 685 ml IV Total 1100.55 ml 775 ml Tube Feeding 420 ml 350 ml Other 150 ml 60 ml Output Urine Total 25 ml 0 ml Stool Total 400 ml 500 ml Laboratory Tests 11/24/19 12:30: Urine Color Brown, Urine Appearance Cloudy, Urine pH 5, Urine Specific [place] 1.025, Urine Protein 3+H, Urine Glucose (UA) Negative, Urine Ketones 1+H, Urine Blood 5+H, Urine Nitrite PositiveH, Urine Bilirubin Negative, Urine Urobilinogen 1H, Urine Leukocyte Esterase 2+H, Urine RBC 10-15H, Urine WBC 15- 20H, Urine Squamous Epithelial Cells Few, Urine Bacteria ModerateH, Urine Yeast ManyH 11/25/19 04:30: White Blood Count 19.7H, Red Blood Count 2.76L, Hemoglobin 8.0L, Hematocrit 24.1L, Mean Corpuscular Volume 87, Mean Corpuscular Hemoglobin 28.9, Mean Corpuscular Hemoglobin Concent 33.0, Red Cell Distribution Width 14.1, Platelet Count 246, Mean Platelet Volume 7.0, Neutrophils (%) (Auto) , Lymphocytes (%) ( Auto) , Monocytes (%) (Auto) , Eosinophils (%) (Auto) , Basophils (%) (Auto) , Neutrophils % (Manual) [Pending], Lymphocytes % (Manual) [Pending], Platelet Estimate [Pending], Platelet Morphology [Pending], Sodium Level 137, Potassium Level 3.6, Chloride Level 106, Carbon Dioxide Level 17L, Anion Gap 14, Blood Urea Nitrogen 54H, Creatinine 3.3H, Estimat Glomerular Filtration Rate 18.5, Glucose Level 138H, Uric Acid 8.2H, Calcium Level 6.7L, Phosphorus Level 5.6H, Magnesium Level 2.0, Total Bilirubin 0.3, Aspartate Amino Transf (AST/SGOT) 54H , Alanine Aminotransferase (ALT/SGPT) < 6L, Alkaline Phosphatase 64, C-Reactive Protein, Quantitative 4.1H, Pro-B-Type Natriuretic Peptide 3757H, Total Protein 4.5L, Albumin 1.2L, Globulin 3.3, Albumin/Globulin Ratio 0.4L, Amylase Level 269H, Lipase 769H 11/25/19 08:07: Arterial Blood pH 7.288L, Arterial Blood Partial Pressure CO2 32.9L, Arterial Blood Partial Pressure O2 102.4H, Arterial Blood HCO3 15.4*L, Arterial Blood Oxygen Saturation 97.0, Arterial Blood Base Excess -10.2*L, Michael Test Positive Height (Feet): 6 Height (Inches): 0.00 Weight (Pounds): 185 General Appearance: lethargic EENT: normal ENT inspection Cardiovascular: normal rate, regular rhythm Respiratory/Chest: no respiratory distress, no accessory muscle use Extremities: normal inspection Skin: normal pigmentation Juan Singh Nov 25, 2019 09:49
[2019-11-25] MEDS: Norepinephrine Bitartrate 8 MG in D5W 500ml 550 ML IV SCH (10:00)
--- NOTE | 2019-11-25 11:15 | Pulmonolgy Critical Care Note ---
Critical Care - Asmt/Plan Problems: (1) Acute respiratory failure (2) Cardiac arrest (3) Bacteremia Assessment & Plan: enterocococus fecalis in blood. Proteus and Pseudomonas in sputum. (4) 2019 novel coronavirus disease (COVID-19) (5) ARF (acute renal failure) (6) Aspiration pneumonia (7) Ventricular tachyarrhythmia (8) DM (diabetes mellitus) Respiratory: monitor respiratory rate, adjust FIO2, CXR Cardiac: continue to monitor HR/BP Renal: F/U I&O, keep IV fluid Infectious Disease: check cultures, continue antibiotics Gastrointestinal: continue feedings/current rate Endocrine: monitor blood sugar Hematologic: monitor H/H, transfuse if hgb<8.5 Neurologic: PRN Ativan, keep patient comfortable Prophylaxis: Heparin Time Spent (Minutes): 40 Notes Reviewed: cardio 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, consultants, case specialistmanager golf - Objective Last 24 Hour Vital Signs Date Time Temp Pulse Resp B/P (MAP) Pulse Ox O2 Delivery O2 Flow Rate FiO2 11/25/19 11:06 78 20 35 11/25/19 10:00 73 20 99/51 (67) 100 11/25/19 09:45 74 20 104/51 (68) 98 11/25/19 09:30 79 20 112/53 (72) 98 11/25/19 09:15 75 21 106/51 (69) 98 11/25/19 09:00 68 21 119/59 (79) 100 11/25/19 08:54 70 21 104/55 (71) 99 11/25/19 08:32 69 20 104/58 (73) 100 11/25/19 08:30 70 21 100 11/25/19 08:00 97.5 70 22 102/53 (69) 100 11/25/19 08:00 35 11/25/19 08:00 Mechanical Ventilator 11/25/19 08:00 70 11/25/19 07:09 68 21 35 11/25/19 07:00 97.5 77 22 112/56 (74) 98 11/25/19 06:00 79 22 103/49 (67) 98 11/25/19 05:00 76 20 105/47 (66) 100 11/25/19 04:00 69 20 111/52 (71) 99 11/25/19 04:00 71 11/25/19 04:00 Mechanical Ventilator 11/25/19 04:00 35 11/25/19 03:30 73 20 35 11/25/19 03:00 71 20 119/53 (75) 100 11/25/19 02:00 68 20 105/51 (69) 99 11/25/19 01:00 65 20 99/50 (66) 100 11/25/19 00:00 72 11/25/19 00:00 Mechanical Ventilator 11/25/19 00:00 35 11/25/19 00:00 97.7 68 20 105/51 (69) 99 11/24/19 23:24 71 20 35 11/24/19 23:00 68 20 108/48 (68) 99 11/24/19 22:30 76 20 113/46 (68) 99 11/24/19 22:00 69 20 105/48 (67) 99 11/24/19 21:30 66 20 107/50 (69) 100 11/24/19 21:00 66 20 106/47 (66) 100 11/24/19 20:30 69 20 104/46 (65) 100 11/24/19 20:00 35 11/24/19 20:00 70 11/24/19 20:00 66 20 109/50 (69) 100 11/24/19 20:00 Mechanical Ventilator 11/24/19 19:58 67 20 35 11/24/19 19:30 68 20 106/49 (68) 100 11/24/19 19:15 67 20 109/51 (70) 100 11/24/19 19:00 66 20 105/51 (69) 100 11/24/19 18:34 70 20 113/52 (72) 100 11/24/19 18:00 70 20 111/49 (69) 99 11/24/19 17:30 68 20 104/49 (67) 99 11/24/19 17:00 70 20 104/50 (68) 99 11/24/19 16:00 35 11/24/19 16:00 98.5 72 20 101/47 (65) 99 11/24/19 16:00 Mechanical Ventilator 11/24/19 15:49 73 11/24/19 15:30 71 20 98/45 (62) 99 11/24/19 15:29 71 19 99/47 (64) 99 11/24/19 15:15 84 19 108/49 (68) 100 11/24/19 15:12 73 20 35 11/24/19 15:00 74 20 98/45 (62) 99 11/24/19 14:45 83 20 122/60 (80) 97 11/24/19 14:30 83 20 122/60 (80) 97 11/24/19 14:15 83 20 124/62 (82) 98 11/24/19 14:00 82 20 124/62 (82) 99 11/24/19 14:00 124/62 11/24/19 13:45 71 20 107/54 (71) 100 11/24/19 13:30 72 20 107/54 (71) 100 11/24/19 13:15 71 20 109/51 (70) 100 11/24/19 13:00 75 20 119/51 (73) 100 11/24/19 13:00 109/51 11/24/19 13:00 75 20 119/51 (73) 100 11/24/19 12:45 68 20 104/50 (68) 100 11/24/19 12:45 68 20 107/50 (69) 100 11/24/19 12:44 68 20 107/50 (69) 100 11/24/19 12:36 68 20 103/48 (66) 100 11/24/19 12:30 70 20 114/54 (74) 100 11/24/19 12:30 70 20 114/54 (74) 100 11/24/19 12:15 69 20 114/54 (74) 100 11/24/19 12:15 69 20 100 11/24/19 12:00 Mechanical Ventilator 11/24/19 12:00 80 11/24/19 12:00 114/54 11/24/19 12:00 98.2 71 20 113/54 (73) 100 11/24/19 12:00 35 11/24/19 11:30 70 16 117/58 (77) 100 11/24/19 11:15 71 20 35 Status: sedated Condition: critical HEENT: atraumatic Neck: full ROM Lungs: clear Heart: HR/BP stable Abdomen: soft Extremities: no C/C/E Micro: Microbiology Date/Time Source Procedure Growth Status 11/24/19 12:30 Urine,Clean Catch Urine Culture - Preliminary NO GROWTH Resulted Critical Care - Subjective ROS Limited/Unobtainable: Yes Condition: critical EKG Rhythm: Sinus Rhythm FI02: 35 Vent Support Breath Rate: 20 Vent Support Mode: AC Vent Tidal Volume: 550 Sputum Amount: Small PEEP: 5.0 PIP: 32 Tube Feeding Amount: 35 I&O: Intake and Output 11/24/19 11/25/19 19:00 07:00 Intake Total 1670.55 ml 1185 ml Output Total 425 ml 500 ml Balance 1245.55 ml 685 ml IV Total 1100.55 ml 775 ml Tube Feeding 420 ml 350 ml Other 150 ml 60 ml Output Urine Total 25 ml 0 ml Stool Total 400 ml 500 ml ET-Tube: 8.0 ET Position: 23 Labs: Laboratory Tests Test 11/24/19 12:30 11/25/19 04:30 11/25/19 08:07 Urine Color Brown Urine Appearance Cloudy Urine pH 5 (4.5-8.0) Urine Specific [place] 1.025 (1.005-1.035) Urine Protein 3+ (NEGATIVE) H Urine Glucose (UA) Negative (NEGATIVE) Urine Ketones 1+ (NEGATIVE) H Urine Blood 5+ (NEGATIVE) H Urine Nitrite Positive (NEGATIVE) H Urine Bilirubin Negative (NEGATIVE) Urine Urobilinogen 1 MG/DL (0.0-1.0) H Urine Leukocyte Esterase 2+ (NEGATIVE) H Urine RBC 10-15 /HPF (0 - 0) H Urine WBC 15-20 /HPF (0 - 0) H Urine Squamous Epithelial Cells Few /LPF (NONE/OCC) Urine Bacteria Moderate /HPF (NONE) H Urine Yeast Many /HPF (NONE) H White Blood Count 19.7 K/UL (4.8-10.8) H Red Blood Count 2.76 M/UL (4.70-6.10) L Hemoglobin 8.0 G/DL (14.2-18.0) L Hematocrit 24.1 % (42.0-52.0) L Mean Corpuscular Volume 87 FL (80-99) Mean Corpuscular Hemoglobin 28.9 PG (27.0-31.0) Mean Corpuscular Hemoglobin Concent 33.0 G/DL (32.0-36.0) Red Cell Distribution Width 14.1 % (11.6-14.8) Platelet Count 246 K/UL (150-450) Mean Platelet Volume 7.0 FL (6.5-10.1) Neutrophils (%) (Auto) % (45.0-75.0) Lymphocytes (%) (Auto) % (20.0-45.0) Monocytes (%) (Auto) % (1.0-10.0) Eosinophils (%) (Auto) % (0.0-3.0) Basophils (%) (Auto) % (0.0-2.0) Differential Total Cells Counted 100 Neutrophils % (Manual) 89 % (45-75) H Lymphocytes % (Manual) 7 % (20-45) L Monocytes % (Manual) 3 % (1-10) Eosinophils % (Manual) 1 % (0-3) Basophils % (Manual) 0 % (0-2) Band Neutrophils 0 % (0-8) Platelet Estimate Adequate Platelet Morphology Normal Hypochromasia 2+ Anisocytosis 1+ Spherocytes 2+ Sodium Level 137 MMOL/L (136-145) Potassium Level 3.6 MMOL/L (3.5-5.1) Chloride Level 106 MMOL/L (98-107) Carbon Dioxide Level 17 MMOL/L (21-32) L Anion Gap 14 mmol/L (5-15) Blood Urea Nitrogen 54 mg/dL (7-18) H Creatinine 3.3 MG/DL (0.55-1.30) H Estimat Glomerular Filtration Rate 18.5 mL/min (>60) Glucose Level 138 MG/DL (74-106) H Uric Acid 8.2 MG/DL (2.6-7.2) H Calcium Level 6.7 MG/DL (8.5-10.1) L Phosphorus Level 5.6 MG/DL (2.5-4.9) H Magnesium Level 2.0 MG/DL (1.8-2.4) Total Bilirubin 0.3 MG/DL (0.2-1.0) Aspartate Amino Transf (AST/SGOT) 54 U/L (15-37) H Alanine Aminotransferase (ALT/SGPT) < 6 U/L (12-78) L Alkaline Phosphatase 64 U/L (46-116) C-Reactive Protein, Quantitative 4.1 mg/dL (0.00-0.90) H Pro-B-Type Natriuretic Peptide 3757 pg/mL (0-125) H Total Protein 4.5 G/DL (6.4-8.2) L Albumin 1.2 G/DL (3.4-5.0) L Globulin 3.3 g/dL Albumin/Globulin Ratio 0.4 (1.0-2.7) L Amylase Level 269 U/L (25-115) H Lipase 769 U/L (73-393) H Arterial Blood pH 7.288 (7.350-7.450) Arterial Blood Partial Pressure CO2 32.9 mmHg (35.0-45.0) L Arterial Blood Partial Pressure O2 102.4 mmHg (75.0-100.0) H Arterial Blood HCO3 15.4 mmol/L (22.0-26.0) *L Arterial Blood Oxygen Saturation 97.0 % (95-100) Arterial Blood Base Excess -10.2 (-2-2) *L Michael Test Positive Ayana Ndiaye MD Nov 25, 2019 11:15
--- NOTE | 2019-11-25 12:31 | Infectious Diseases Prog Note ---
Assessment/Plan Assessment/Plan Assessment: PEA arrest> unstable SVT s/p cardioversion 11/17 Septic shock- SP Fever, recurrent; SP Leukocytosis; fluctuating; improving -11/23 u/a wbc 15-20, nit neg, leuk +2; ucx NTD Bcx p -11/17 u/a no pyuria; ucx neg Bcx Neg sp cx PsA (R Zosyn; S Gentamycin, levaquin, Cefepime, ceftazidime, Meropenem), P. mirabilis ([facility] S) Pneumonia Acute hypoxic resp failure- sp NRB 15L, now VDRF 11/17 - 2ry to COVID19 and superimposed bacterial PNA -11/24 CXR: Right basilar pleural effusion and likely parenchymal consolidation are unchanged -11/22 CXR: Slight increased right effusion. Right basilar infiltrate again noted. -11/19 CXR: There is been worsening of moderately consolidating right middle lobe pneumonia. -11/17 CXR: Bilateral lower lobe atelectasis/infiltrates, slightly increased. No large pleural effusions. -11/15 CXR: New/increased infiltrates at the left lateral lung base -11/11 CXR: Mild interstitial thickening is slightly improved. -11/10 CXR: Hazy basilar infiltrates left greater than right. sp cx PsA ([facility] S), P.mirabilis ([facility] S), MRSA (S Vanco CARLOS 1, bactrim; R tetracycline ) -11/10 SARS-COV2 positive UTI c/w bacteremia -u/a wbc 5-10, nit neg, leuk +1, RBC TNCT; ucx 10-20k E. faecalis (S amp, vanco) -11/10 Bcx 2/ E. faecalis (S Vancomycin, AMP) CONS bacteremia- likely contaminant -11/10 Bcx 2/ S. 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 Will continue to follow along with you. Discussed with RN and pharm Subjective Allergies: Coded Allergies: No Known Allergies (Unverified , 09/16/19) Subjective afebrile Fio2 35% wbc improving off levophed now Objective Vital Signs Last 24 Hour Vital Signs Date Time Temp Pulse Resp B/P (MAP) Pulse Ox O2 Delivery O2 Flow Rate FiO2 11/25/19 11:06 78 20 35 11/25/19 10:00 73 20 99/51 (67) 100 11/25/19 09:45 74 20 104/51 (68) 98 11/25/19 09:30 79 20 112/53 (72) 98 11/25/19 09:15 75 21 106/51 (69) 98 11/25/19 09:00 68 21 119/59 (79) 100 11/25/19 08:54 70 21 104/55 (71) 99 11/25/19 08:32 69 20 104/58 (73) 100 11/25/19 08:30 70 21 100 11/25/19 08:00 97.5 70 22 102/53 (69) 100 11/25/19 08:00 35 11/25/19 08:00 Mechanical Ventilator 11/25/19 08:00 70 11/25/19 07:09 68 21 35 11/25/19 07:00 97.5 77 22 112/56 (74) 98 11/25/19 06:00 79 22 103/49 (67) 98 11/25/19 05:00 76 20 105/47 (66) 100 11/25/19 04:00 69 20 111/52 (71) 99 11/25/19 04:00 71 11/25/19 04:00 Mechanical Ventilator 6/12/20 04:00 35 11/25/19 03:30 73 20 35 11/25/19 03:00 71 20 119/53 (75) 100 11/25/19 02:00 68 20 105/51 (69) 99 11/25/19 01:00 65 20 99/50 (66) 100 11/25/19 00:00 72 11/25/19 00:00 Mechanical Ventilator 11/25/19 00:00 35 11/25/19 00:00 97.7 68 20 105/51 (69) 99 11/24/19 23:24 71 20 35 11/24/19 23:00 68 20 108/48 (68) 99 11/24/19 22:30 76 20 113/46 (68) 99 11/24/19 22:00 69 20 105/48 (67) 99 11/24/19 21:30 66 20 107/50 (69) 100 11/24/19 21:00 66 20 106/47 (66) 100 11/24/19 20:30 69 20 104/46 (65) 100 11/24/19 20:00 35 11/24/19 20:00 70 11/24/19 20:00 66 20 109/50 (69) 100 11/24/19 20:00 Mechanical Ventilator 11/24/19 19:58 67 20 35 11/24/19 19:30 68 20 106/49 (68) 100 11/24/19 19:15 67 20 109/51 (70) 100 11/24/19 19:00 66 20 105/51 (69) 100 11/24/19 18:34 70 20 113/52 (72) 100 11/24/19 18:00 70 20 111/49 (69) 99 11/24/19 17:30 68 20 104/49 (67) 99 11/24/19 17:00 70 20 104/50 (68) 99 11/24/19 16:00 35 11/24/19 16:00 98.5 72 20 101/47 (65) 99 11/24/19 16:00 Mechanical Ventilator 11/24/19 15:49 73 11/24/19 15:30 71 20 98/45 (62) 99 11/24/19 15:29 71 19 99/47 (64) 99 11/24/19 15:15 84 19 108/49 (68) 100 11/24/19 15:12 73 20 35 11/24/19 15:00 74 20 98/45 (62) 99 11/24/19 14:45 83 20 122/60 (80) 97 11/24/19 14:30 83 20 122/60 (80) 97 11/24/19 14:15 83 20 124/62 (82) 98 11/24/19 14:00 82 20 124/62 (82) 99 11/24/19 14:00 124/62 11/24/19 13:45 71 20 107/54 (71) 100 11/24/19 13:30 72 20 107/54 (71) 100 11/24/19 13:15 71 20 109/51 (70) 100 11/24/19 13:00 75 20 119/51 (73) 100 11/24/19 13:00 109/51 11/24/19 13:00 75 20 119/51 (73) 100 11/24/19 12:45 68 20 104/50 (68) 100 11/24/19 12:45 68 20 107/50 (69) 100 11/24/19 12:44 68 20 107/50 (69) 100 11/24/19 12:36 68 20 103/48 (66) 100 11/24/19 12:30 70 20 114/54 (74) 100 11/24/19 12:30 70 20 114/54 (74) 100 11/24/19 12:15 69 20 114/54 (74) 100 11/24/19 12:15 69 20 100 Height (Feet): 6 Height (Inches): 0.00 Weight (Pounds): 185 Objective Gen: critically ill HEENT: ETT in place Lungs: no tacypnea or use of accessory muscles Neuro: lethargic Microbiology Date/Time Source Procedure Growth Status 11/24/19 12:30 Urine,Clean Catch Urine Culture - Preliminary NO GROWTH Resulted Laboratory Tests Test 11/24/19 12:30 11/25/19 04:30 11/25/19 08:07 Urine Color Brown Urine Appearance Cloudy Urine pH 5 (4.5-8.0) Urine Specific [place] 1.025 (1.005-1.035) Urine Protein 3+ (NEGATIVE) H Urine Glucose (UA) Negative (NEGATIVE) Urine Ketones 1+ (NEGATIVE) H Urine Blood 5+ (NEGATIVE) H Urine Nitrite Positive (NEGATIVE) H Urine Bilirubin Negative (NEGATIVE) Urine Urobilinogen 1 MG/DL (0.0-1.0) H Urine Leukocyte Esterase 2+ (NEGATIVE) H Urine RBC 10-15 /HPF (0 - 0) H Urine WBC 15-20 /HPF (0 - 0) H Urine Squamous Epithelial Cells Few /LPF (NONE/OCC) Urine Bacteria Moderate /HPF (NONE) H Urine Yeast Many /HPF (NONE) H White Blood Count 19.7 K/UL (4.8-10.8) H Red Blood Count 2.76 M/UL (4.70-6.10) L Hemoglobin 8.0 G/DL (14.2-18.0) L Hematocrit 24.1 % (42.0-52.0) L Mean Corpuscular Volume 87 FL (80-99) Mean Corpuscular Hemoglobin 28.9 PG (27.0-31.0) Mean Corpuscular Hemoglobin Concent 33.0 G/DL (32.0-36.0) Red Cell Distribution Width 14.1 % (11.6-14.8) Platelet Count 246 K/UL (150-450) Mean Platelet Volume 7.0 FL (6.5-10.1) Neutrophils (%) (Auto) % (45.0-75.0) Lymphocytes (%) (Auto) % (20.0-45.0) Monocytes (%) (Auto) % (1.0-10.0) Eosinophils (%) (Auto) % (0.0-3.0) Basophils (%) (Auto) % (0.0-2.0) Differential Total Cells Counted 100 Neutrophils % (Manual) 89 % (45-75) H Lymphocytes % (Manual) 7 % (20-45) L Monocytes % (Manual) 3 % (1-10) Eosinophils % (Manual) 1 % (0-3) Basophils % (Manual) 0 % (0-2) Band Neutrophils 0 % (0-8) Platelet Estimate Adequate Platelet Morphology Normal Hypochromasia 2+ Anisocytosis 1+ Spherocytes 2+ Sodium Level 137 MMOL/L (136-145) Potassium Level 3.6 MMOL/L (3.5-5.1) Chloride Level 106 MMOL/L (98-107) Carbon Dioxide Level 17 MMOL/L (21-32) L Anion Gap 14 mmol/L (5-15) Blood Urea Nitrogen 54 mg/dL (7-18) H Creatinine 3.3 MG/DL (0.55-1.30) H Estimat Glomerular Filtration Rate 18.5 mL/min (>60) Glucose Level 138 MG/DL (74-106) H Uric Acid 8.2 MG/DL (2.6-7.2) H Calcium Level 6.7 MG/DL (8.5-10.1) L Phosphorus Level 5.6 MG/DL (2.5-4.9) H Magnesium Level 2.0 MG/DL (1.8-2.4) Total Bilirubin 0.3 MG/DL (0.2-1.0) Aspartate Amino Transf (AST/SGOT) 54 U/L (15-37) H Alanine Aminotransferase (ALT/SGPT) < 6 U/L (12-78) L Alkaline Phosphatase 64 U/L (46-116) C-Reactive Protein, Quantitative 4.1 mg/dL (0.00-0.90) H Pro-B-Type Natriuretic Peptide 3757 pg/mL (0-125) H Total Protein 4.5 G/DL (6.4-8.2) L Albumin 1.2 G/DL (3.4-5.0) L Globulin 3.3 g/dL Albumin/Globulin Ratio 0.4 (1.0-2.7) L Amylase Level 269 U/L (25-115) H Lipase 769 U/L (73-393) H Arterial Blood pH 7.288 (7.350-7.450) Arterial Blood Partial Pressure CO2 32.9 mmHg (35.0-45.0) L Arterial Blood Partial Pressure O2 102.4 mmHg (75.0-100.0) H Arterial Blood HCO3 15.4 mmol/L (22.0-26.0) *L Arterial Blood Oxygen Saturation 97.0 % (95-100) Arterial Blood Base Excess -10.2 (-2-2) *L Michael Test Positive Current Medications Medications (Trade) Dose Ordered Sig/Leonor Route PRN Reason Start Time Stop Time Status Last Admin Dose Admin Acetaminophen (Tylenol) 650 mg Q4H PRN GT fever 11/18/19 03:00 12/11/19 02:59 11/19/19 20:04 Albumin Human 100 ml @ 100 mls/hr ONCE ONCE IV 11/25/19 11:30 11/25/19 12:29 11/25/19 11:40 Allopurinol (allopurinoL) 300 mg DAILY GT 11/21/19 09:00 12/21/19 08:59 11/25/19 08:42 Calcium Gluconate 1 gm/Sodium Chloride 120 ml @ 240 mls/hr Q12HR IVPB 11/22/19 09:00 12/22/19 08:59 11/25/19 08:41 Cefepime HCl 1 gm/ Dextrose 55 ml @ 110 mls/hr EVERY 12 HOURS IVPB 11/24/19 21:00 12/01/19 20:59 11/25/19 08:43 Chlorhexidine Gluconate (Danielle-Hex 2%) 1 applic DAILY@2000 TOPIC 11/18/19 20:00 02/16/20 19:59 11/24/19 21:12 Dextrose/Sodium Chloride 1,000 ml @ 50 mls/hr Q20H IV 11/22/19 10:15 12/20/19 10:14 11/25/19 03:51 Heparin Sodium (Porcine) (Heparin 5000 units/ml) 5,000 units EVERY 12 HOURS SUBQ 11/18/19 09:00 12/26/19 08:59 11/24/19 21:14 Linezolid (Zyvox) 600 mg EVERY 12 HOURS ORAL 11/22/19 21:00 11/27/19 20:59 11/25/19 08:41 Lorazepam (Ativan 2mg/ml 1ml) 2 mg Q4H PRN IV For Anxiety 11/18/19 12:10 11/25/19 12:09 11/20/19 03:50 Midodrine (Pro-Amatine) 10 mg Q8HR ORAL 11/22/19 14:00 02/20/20 13:59 11/25/19 05:41 Morphine Sulfate (Morphine Sulfate) 4 mg Q4H PRN IVP For Pain 11/18/19 12:10 11/25/19 12:09 Norepinephrine Bitartrate 8 mg/ Dextrose 558 ml @ 0 mls/hr Q24H IV 11/18/19 10:00 12/18/19 09:59 11/23/19 22:22 Ondansetron HCl (Zofran) 4 mg Q6H PRN IVP Nausea & Vomiting 11/18/19 03:00 12/11/19 08:59 Pantoprazole (Protonix) 40 mg DAILY IV 11/19/19 09:00 12/19/19 08:59 11/25/19 08:42 Sevelamer Carbonate (Renvela) 800 mg Q6HR NG 11/22/19 08:00 02/20/20 07:59 11/25/19 11:42 Vancomycin HCl (Firvanq) 125 mg FOUR TIMES A DAY NG 11/18/19 09:00 11/26/19 23:59 11/25/19 08:42 Shannon Mark M.D. Nov 25, 2019 12:31
--- NOTE | 2019-11-25 13:29 | Nephrology Progress Note ---
Assessment/Plan Problem List: (1) ARF (acute renal failure) (2) Hyperkalemia (3) DM (diabetes mellitus) (4) Suspected COVID-19 virus infection (5) Sepsis (6) Severe malnutrition Assessment: Severe hypoalbuminemia Assessment his 74-year-old male with multiple Multiple medical problem presents with respiratory symptoms and diarrhea Renal failure most likely prerenal azotemia secondary to dehydration Hyperkalemia on presentation also secondary to dehydration Sepsis pneumonia hypoxia UTI Anemia History of hypertension History of diabetes mellitus Suspected COVID-19 virus infection Hypoalbuminemia Plan C. difficile positive COVID-19 detected November 24: Patient remains intubated. Due for dialysis today. Labs reviewed. Continues to be full code. November 23: Patient was dialyzed yesterday. Labs reviewed. Status quo. Remains full code. Will arrange for dialysis tomorrow. November 22: Patient in ICU. Intubated on ventilator. On low-dose pressors. Urine output labile. Serum creatinine rising. Patient developing acute renal failure. Need urgent dialysis treatment. Will arrange for placement of non- tunneled dialysis catheter as soon as possible. RN states that no family member or next of kin could be contacted at this time. Due to the urgency of the problem and the patient being full code will proceed with placement of dialysis catheter and dialysis treatment as soon as possible. November 21: Patient continues to do poorly. Discussed with RN. Started on Midodrin for BP support. Nephro feeding started. Phosphorus binders started. IV calcium ordered. Continue to monitor renal parameters and urine output. Continue per consultants. Patient remains full code. Per orders. November 20: Serum creatinine continuing to rise. Remains of 100 cc an hour IV fluid. Urine output remains low. Blood pressure also borderline low, on pressors. Continue per consultants. Continue to monitor renal parameters and urine output. Continue to avoid nephrotoxic's. Further deterioration of renal function may lead to dialysis treatment. Will discuss with PMD. November 19: Serum creatinine rising. Urine output decreasing. Will change to IV, D5 normal saline. Will give albumin bolus followed by Lasix 40 mg IV push. Continue to monitor renal parameters and urine output. Continue to avoid nephrotoxic medications as possible. Today's vancomycin level was 22. November 18: Serum creatinine rising. Continues to be full code. Continues to be intubated on ventilator. Remains on IV fluids. Vancomycin levels per pharmacy. Prognosis poor due to sepsis. November 17: Intubated on ventilator in ICU. Will continue half-normal saline 100 cc an hour. Continue per pulmonary and ID. Prognosis poor. Continue to monitor renal parameters. Hydrate with half-normal saline, serum creatinine now at its lowest today. monitor electrolytes Will change the feeding to Nepro and monitor her potassium and other electrolytes Continue per ID Keep the blood pressure and blood sugar in check Monitor renal parameters Previously: Urine studies Monitor intake and output Cultures including stool for C. difficile Per orders Patient's CODE STATUS is full Subjective ROS Limited/Unobtainable: Yes Objective Objective Last 24 Hour Vital Signs Date Time Temp Pulse Resp B/P (MAP) Pulse Ox O2 Delivery O2 Flow Rate FiO2 11/25/19 13:00 79 22 126/63 (84) 98 11/25/19 12:30 73 20 100/49 (66) 99 11/25/19 12:00 35 11/25/19 12:00 75 11/25/19 12:00 Mechanical Ventilator 11/25/19 12:00 98.0 73 20 99/48 (65) 99 11/25/19 11:30 78 20 101/50 (67) 99 11/25/19 11:06 78 20 35 11/25/19 11:00 71 20 100/50 (67) 100 11/25/19 10:00 73 20 99/51 (67) 100 11/25/19 09:45 74 20 104/51 (68) 98 11/25/19 09:30 79 20 112/53 (72) 98 11/25/19 09:15 75 21 106/51 (69) 98 11/25/19 09:00 68 21 119/59 (79) 100 11/25/19 08:54 70 21 104/55 (71) 99 11/25/19 08:32 69 20 104/58 (73) 100 11/25/19 08:30 70 21 100 11/25/19 08:00 97.5 70 22 102/53 (69) 100 11/25/19 08:00 35 11/25/19 08:00 Mechanical Ventilator 11/25/19 08:00 70 11/25/19 07:09 68 21 35 11/25/19 07:00 97.5 77 22 112/56 (74) 98 11/25/19 06:00 79 22 103/49 (67) 98 11/25/19 05:00 76 20 105/47 (66) 100 11/25/19 04:00 69 20 111/52 (71) 99 11/25/19 04:00 71 11/25/19 04:00 Mechanical Ventilator 11/25/19 04:00 35 11/25/19 03:30 73 20 35 11/25/19 03:00 71 20 119/53 (75) 100 11/25/19 02:00 68 20 105/51 (69) 99 11/25/19 01:00 65 20 99/50 (66) 100 11/25/19 00:00 72 11/25/19 00:00 Mechanical Ventilator 11/25/19 00:00 35 11/25/19 00:00 97.7 68 20 105/51 (69) 99 11/24/19 23:24 71 20 35 11/24/19 23:00 68 20 108/48 (68) 99 11/24/19 22:30 76 20 113/46 (68) 99 11/24/19 22:00 69 20 105/48 (67) 99 11/24/19 21:30 66 20 107/50 (69) 100 11/24/19 21:00 66 20 106/47 (66) 100 11/24/19 20:30 69 20 104/46 (65) 100 11/24/19 20:00 35 11/24/19 20:00 70 11/24/19 20:00 66 20 109/50 (69) 100 11/24/19 20:00 Mechanical Ventilator 11/24/19 19:58 67 20 35 11/24/19 19:30 68 20 106/49 (68) 100 11/24/19 19:15 67 20 109/51 (70) 100 11/24/19 19:00 66 20 105/51 (69) 100 11/24/19 18:34 70 20 113/52 (72) 100 11/24/19 18:00 70 20 111/49 (69) 99 11/24/19 17:30 68 20 104/49 (67) 99 11/24/19 17:00 70 20 104/50 (68) 99 11/24/19 16:00 35 11/24/19 16:00 98.5 72 20 101/47 (65) 99 11/24/19 16:00 Mechanical Ventilator 11/24/19 15:49 73 11/24/19 15:30 71 20 98/45 (62) 99 11/24/19 15:29 71 19 99/47 (64) 99 11/24/19 15:15 84 19 108/49 (68) 100 11/24/19 15:12 73 20 35 11/24/19 15:00 74 20 98/45 (62) 99 11/24/19 14:45 83 20 122/60 (80) 97 11/24/19 14:30 83 20 122/60 (80) 97 11/24/19 14:15 83 20 124/62 (82) 98 11/24/19 14:00 82 20 124/62 (82) 99 11/24/19 14:00 124/62 11/24/19 13:45 71 20 107/54 (71) 100 11/24/19 13:30 72 20 107/54 (71) 100 Intake and Output 11/24/19 11/25/19 19:00 07:00 Intake Total 1670.55 ml 1185 ml Output Total 425 ml 500 ml Balance 1245.55 ml 685 ml IV Total 1100.55 ml 775 ml Tube Feeding 420 ml 350 ml Other 150 ml 60 ml Output Urine Total 25 ml 0 ml Stool Total 400 ml 500 ml Laboratory Tests 11/25/19 04:30: White Blood Count 19.7H, Red Blood Count 2.76L, Hemoglobin 8.0L, Hematocrit 24.1L, Mean Corpuscular Volume 87, Mean Corpuscular Hemoglobin 28.9, Mean Corpuscular Hemoglobin Concent 33.0, Red Cell Distribution Width 14.1, Platelet Count 246, Mean Platelet Volume 7.0, Neutrophils (%) (Auto) , Lymphocytes (%) ( Auto) , Monocytes (%) (Auto) , Eosinophils (%) (Auto) , Basophils (%) (Auto) , Differential Total Cells Counted 100, Neutrophils % (Manual) 89H, Lymphocytes % (Manual) 7L, Monocytes % (Manual) 3, Eosinophils % (Manual) 1, Basophils % ( Manual) 0, Band Neutrophils 0, Platelet Estimate Adequate, Platelet Morphology Normal, Hypochromasia 2+, Anisocytosis 1+, Spherocytes 2+, Sodium Level 137, Potassium Level 3.6, Chloride Level 106, Carbon Dioxide Level 17L, Anion Gap 14 , Blood Urea Nitrogen 54H, Creatinine 3.3H, Estimat Glomerular Filtration Rate 18.5, Glucose Level 138H, Uric Acid 8.2H, Calcium Level 6.7L, Phosphorus Level 5.6H, Magnesium Level 2.0, Total Bilirubin 0.3, Aspartate Amino Transf (AST/SGOT ) 54H, Alanine Aminotransferase (ALT/SGPT) < 6L, Alkaline Phosphatase 64, C- Reactive Protein, Quantitative 4.1H, Pro-B-Type Natriuretic Peptide 3757H, Total Protein 4.5L, Albumin 1.2L, Globulin 3.3, Albumin/Globulin Ratio 0.4L, Amylase Level 269H, Lipase 769H 11/25/19 08:07: Arterial Blood pH 7.288L, Arterial Blood Partial Pressure CO2 32.9L, Arterial Blood Partial Pressure O2 102.4H, Arterial Blood HCO3 15.4*L, Arterial Blood Oxygen Saturation 97.0, Arterial Blood Base Excess -10.2*L, Michael Test Positive Height (Feet): 6 Height (Inches): 0.00 Weight (Pounds): 185 General Appearance: no apparent distress EENT: other - Intubated on ventilator Cardiovascular: normal rate Respiratory/Chest: decreased breath sounds Abdomen: distended Objective No other change Ricardo Choudhary MD Nov 25, 2019 13:29
--- NOTE | 2019-11-25 15:57 | Surgery Progress Note ---
Surgery Progress Note Subjective Additional Comments labs noted ill appearing HD today Objective Last 24 Hour Vital Signs Date Time Temp Pulse Resp B/P (MAP) Pulse Ox O2 Delivery O2 Flow Rate FiO2 11/25/19 15:15 90 21 144/72 (96) 99 11/25/19 15:00 79 23 114/57 (76) 99 11/25/19 14:51 89 20 35 11/25/19 14:15 73 23 119/62 (81) 98 11/25/19 14:00 78 22 110/62 (78) 98 11/25/19 13:00 79 22 126/63 (84) 98 11/25/19 12:30 73 20 100/49 (66) 99 11/25/19 12:00 35 11/25/19 12:00 75 11/25/19 12:00 Mechanical Ventilator 11/25/19 12:00 98.0 73 20 99/48 (65) 99 11/25/19 11:30 78 20 101/50 (67) 99 11/25/19 11:06 78 20 35 11/25/19 11:00 71 20 100/50 (67) 100 11/25/19 10:00 73 20 99/51 (67) 100 11/25/19 09:45 74 20 104/51 (68) 98 11/25/19 09:30 79 20 112/53 (72) 98 11/25/19 09:15 75 21 106/51 (69) 98 11/25/19 09:00 68 21 119/59 (79) 100 11/25/19 08:54 70 21 104/55 (71) 99 11/25/19 08:32 69 20 104/58 (73) 100 11/25/19 08:30 70 21 100 11/25/19 08:00 97.5 70 22 102/53 (69) 100 11/25/19 08:00 35 11/25/19 08:00 Mechanical Ventilator 11/25/19 08:00 70 11/25/19 07:09 68 21 35 11/25/19 07:00 97.5 77 22 112/56 (74) 98 11/25/19 06:00 79 22 103/49 (67) 98 11/25/19 05:00 76 20 105/47 (66) 100 11/25/19 04:00 69 20 111/52 (71) 99 11/25/19 04:00 71 11/25/19 04:00 Mechanical Ventilator 11/25/19 04:00 35 11/25/19 03:30 73 20 35 11/25/19 03:00 71 20 119/53 (75) 100 11/25/19 02:00 68 20 105/51 (69) 99 11/25/19 01:00 65 20 99/50 (66) 100 11/25/19 00:00 72 11/25/19 00:00 Mechanical Ventilator 11/25/19 00:00 35 11/25/19 00:00 97.7 68 20 105/51 (69) 99 11/24/19 23:24 71 20 35 11/24/19 23:00 68 20 108/48 (68) 99 11/24/19 22:30 76 20 113/46 (68) 99 11/24/19 22:00 69 20 105/48 (67) 99 11/24/19 21:30 66 20 107/50 (69) 100 11/24/19 21:00 66 20 106/47 (66) 100 11/24/19 20:30 69 20 104/46 (65) 100 11/24/19 20:00 35 11/24/19 20:00 70 11/24/19 20:00 66 20 109/50 (69) 100 11/24/19 20:00 Mechanical Ventilator 11/24/19 19:58 67 20 35 11/24/19 19:30 68 20 106/49 (68) 100 11/24/19 19:15 67 20 109/51 (70) 100 11/24/19 19:00 66 20 105/51 (69) 100 11/24/19 18:34 70 20 113/52 (72) 100 11/24/19 18:00 70 20 111/49 (69) 99 11/24/19 17:30 68 20 104/49 (67) 99 11/24/19 17:00 70 20 104/50 (68) 99 11/24/19 16:00 35 11/24/19 16:00 98.5 72 20 101/47 (65) 99 11/24/19 16:00 Mechanical Ventilator I&O Intake and Output 11/24/19 11/25/19 19:00 07:00 Intake Total 1670.55 ml 1185 ml Output Total 425 ml 500 ml Balance 1245.55 ml 685 ml IV Total 1100.55 ml 775 ml Tube Feeding 420 ml 350 ml Other 150 ml 60 ml Output Urine Total 25 ml 0 ml Stool Total 400 ml 500 ml Dressing: other Wound: other Drains: other Cardiovascular: RSR Respiratory: decreased breath sounds Abdomen: soft, non-tender, present bowel sounds Extremities: no cyanosis Laboratory Tests Test 11/25/19 04:30 11/25/19 08:07 White Blood Count 19.7 K/UL (4.8-10.8) H Red Blood Count 2.76 M/UL (4.70-6.10) L Hemoglobin 8.0 G/DL (14.2-18.0) L Hematocrit 24.1 % (42.0-52.0) L Mean Corpuscular Volume 87 FL (80-99) Mean Corpuscular Hemoglobin 28.9 PG (27.0-31.0) Mean Corpuscular Hemoglobin Concent 33.0 G/DL (32.0-36.0) Red Cell Distribution Width 14.1 % (11.6-14.8) Platelet Count 246 K/UL (150-450) Mean Platelet Volume 7.0 FL (6.5-10.1) Neutrophils (%) (Auto) % (45.0-75.0) Lymphocytes (%) (Auto) % (20.0-45.0) Monocytes (%) (Auto) % (1.0-10.0) Eosinophils (%) (Auto) % (0.0-3.0) Basophils (%) (Auto) % (0.0-2.0) Differential Total Cells Counted 100 Neutrophils % (Manual) 89 % (45-75) H Lymphocytes % (Manual) 7 % (20-45) L Monocytes % (Manual) 3 % (1-10) Eosinophils % (Manual) 1 % (0-3) Basophils % (Manual) 0 % (0-2) Band Neutrophils 0 % (0-8) Platelet Estimate Adequate Platelet Morphology Normal Hypochromasia 2+ Anisocytosis 1+ Spherocytes 2+ Sodium Level 137 MMOL/L (136-145) Potassium Level 3.6 MMOL/L (3.5-5.1) Chloride Level 106 MMOL/L (98-107) Carbon Dioxide Level 17 MMOL/L (21-32) L Anion Gap 14 mmol/L (5-15) Blood Urea Nitrogen 54 mg/dL (7-18) H Creatinine 3.3 MG/DL (0.55-1.30) H Estimat Glomerular Filtration Rate 18.5 mL/min (>60) Glucose Level 138 MG/DL (74-106) H Uric Acid 8.2 MG/DL (2.6-7.2) H Calcium Level 6.7 MG/DL (8.5-10.1) L Phosphorus Level 5.6 MG/DL (2.5-4.9) H Magnesium Level 2.0 MG/DL (1.8-2.4) Total Bilirubin 0.3 MG/DL (0.2-1.0) Aspartate Amino Transf (AST/SGOT) 54 U/L (15-37) H Alanine Aminotransferase (ALT/SGPT) < 6 U/L (12-78) L Alkaline Phosphatase 64 U/L (46-116) C-Reactive Protein, Quantitative 4.1 mg/dL (0.00-0.90) H Pro-B-Type Natriuretic Peptide 3757 pg/mL (0-125) H Total Protein 4.5 G/DL (6.4-8.2) L Albumin 1.2 G/DL (3.4-5.0) L Globulin 3.3 g/dL Albumin/Globulin Ratio 0.4 (1.0-2.7) L Amylase Level 269 U/L (25-115) H Lipase 769 U/L (73-393) H Arterial Blood pH 7.288 (7.350-7.450) Arterial Blood Partial Pressure CO2 32.9 mmHg (35.0-45.0) L Arterial Blood Partial Pressure O2 102.4 mmHg (75.0-100.0) H Arterial Blood HCO3 15.4 mmol/L (22.0-26.0) *L Arterial Blood Oxygen Saturation 97.0 % (95-100) Arterial Blood Base Excess -10.2 (-2-2) *L Michael Test Positive Plan Problems: (1) Decubitus skin ulcer Assessment & Plan: Pt presented on admission with large sacral wound. Base of wound with areas that area purple and indurated sacrococcygeal,L sacrum/L gluteus,Scattered wounds with maceration L gluteus, one wound R sacrum with Biofilm, Surrounding non-blanching erythema entire buttocks. Small dry scabbed area noted to lumbar area. Unstageable Pressure Injury L heel. Base of wound is necrotic with surrounding non-blanching erythema. Tx.plan: Apply Moisture Barrier Paste to Buttocks. Cover Sacrum, R and L gluteal cheeks with Optifoam drsgs. Change every 3 days and prn. Apply Betadine to L heel. Cover with Optifoam drsg. Change every 3 days and prn. Reposition at least every 2hours or as tolerated. Place Pillow between knees. Off-load heels with Pillow. APM/BRUNILDA Mattress overlay. DAILY ESTIMATED NEEDS: Needs based on wt loss, underweight, wound/ 59kg 30-35 kcals/kg 2327-6653 total kcals 1.25-2 g protein/kg 74-118 g total protein 25-30 mL/kg 4545-0112 total fluid mLs NUTRITION DIAGNOSIS: * Increased kcal/prot intake needs R/T wound healing, suspected recent significant wt loss as evidenced by admitted w/ wounds @ lt posterior heel, R lower back, sacrum as per photos, pending eval, suspected significant wt loss of 40lbs/ 23.7% in <5 months, currently @ 81% IBW. . * Swallowing difficulty R/T dysphagia, h/o CVA as evidenced by PEG dependent. CURRENT TF:Glucerna 1.2 @65ml/hr x24 hrs ENTERAL NUTRITION RECOMMENDATIONS: NEPRO @45ml/hr x24 hrs to provide 1080ml, 1944 kcal, 87g pro, 785ml free H2O - Rec TF change for lower K content (1145mg in Nepro @45 vs 3151mg in Glucerna 1.2 @65) - Start at 25ml/hr advance as tolerated 10ml/hr q4-6 hrs - HOB over 30 degrees - Increased H20 flush to 200ml q4 hrs ADDITIONAL RECOMMENDATIONS: 1) Calibrated bedscale wt -> per SNF: HT=59" and YU=410uvp (10/20/19) 2) Wound healing: Add Vit C 500mg QD/ or dosing per nephro Add Osbaldo BID via PEG w/ TF order 3) Monitor lytes: monitor K trend, need for renal TF (K 5.3, 5.5) 4) NISS w/ TF (h/o DM) 5) Monitor for diarrhea, rec probiotics (2) Sepsis Assessment & Plan: 74-year-old male multi-medical comorbidities admitted for respiratory deficiency currently tachypneic, leukocytosis, malnutrition, hypoalbuminemia. Complete physical exam performed identified areas of concerned given patient's comorbidities current condition high risk for deteriorationNo active infection identified from patient's wounds and likely respiratory nature. Chest x-ray reviewed. No acute surgical intervention planned at this time Preventive measures IV antibiotics per infectious disease Okay for feeding once stable respiratory Appreciate Pulm input c diff positive on vanco blood cx noted worsening leukocytosis ID abx noted heme input noted There are increasing basilar opacities on the left noted. The heart size is normal. The pleural spaces are clear. 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
--- NOTE | 2019-11-25 19:16 | Cardiology Progress Note ---
Assessment/Plan Assessment/Plan 1. covid 19 pneumonia 2. History of cerebrovascular accident. 3. History of carotid occlusion. 4. Bilateral infiltrates and pneumonia. 5. Aphasia. 6. Diabetes mellitus. 7. Hyponatremia. 8. Renal insufficiency 9. 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 asystolic arrest probably aspiration with subequent hypoxemia relasted 12. aspiration per er md ross intubation " There was significant gastric contents in the patient's pharynx." 13 septic shock remains on a vent remain off pressore per rn not moving any ext wbc increased cr worsening s/p dialysis abx per ID s/p resmeidivir tele sinus tachy , now on 40% on the vent vent support trop neg neuro poor consider neuro eval cxr noted Subjective Subjective moderate amount of leaked loose BM. Turned and repositioned patient. Patient is still comatose in bed. Generalized swelling still noted. BP 106/49 off Levophed. Objective Last 24 Hour Vital Signs Date Time Temp Pulse Resp B/P (MAP) Pulse Ox O2 Delivery O2 Flow Rate FiO2 11/25/19 19:11 74 20 35 11/25/19 19:00 71 20 143/67 (92) 100 11/25/19 19:00 71 20 143/67 (92) 100 11/25/19 18:20 75 20 135/63 (87) 99 11/25/19 18:00 75 20 131/57 (81) 100 11/25/19 17:00 82 20 126/62 (83) 99 11/25/19 16:40 84 21 131/63 (85) 97 11/25/19 16:30 83 21 119/58 (78) 95 11/25/19 16:15 95 23 107/59 (75) 91 11/25/19 16:00 97.7 83 22 109/54 (72) 98 11/25/19 16:00 35 11/25/19 16:00 95 11/25/19 16:00 Mechanical Ventilator 11/25/19 15:15 90 21 144/72 (96) 99 11/25/19 15:00 79 23 114/57 (76) 99 11/25/19 14:51 89 20 35 11/25/19 14:15 73 23 119/62 (81) 98 11/25/19 14:00 78 22 110/62 (78) 98 11/25/19 13:00 79 22 126/63 (84) 98 11/25/19 12:30 73 20 100/49 (66) 99 11/25/19 12:00 35 11/25/19 12:00 75 11/25/19 12:00 Mechanical Ventilator 11/25/19 12:00 98.0 73 20 99/48 (65) 99 11/25/19 11:30 78 20 101/50 (67) 99 11/25/19 11:06 78 20 35 11/25/19 11:00 71 20 100/50 (67) 100 11/25/19 10:00 73 20 99/51 (67) 100 11/25/19 09:45 74 20 104/51 (68) 98 11/25/19 09:30 79 20 112/53 (72) 98 11/25/19 09:15 75 21 106/51 (69) 98 11/25/19 09:00 68 21 119/59 (79) 100 11/25/19 08:54 70 21 104/55 (71) 99 11/25/19 08:32 69 20 104/58 (73) 100 11/25/19 08:30 70 21 100 11/25/19 08:00 97.5 70 22 102/53 (69) 100 11/25/19 08:00 35 11/25/19 08:00 Mechanical Ventilator 11/25/19 08:00 70 11/25/19 07:09 68 21 35 11/25/19 07:00 97.5 77 22 112/56 (74) 98 11/25/19 06:00 79 22 103/49 (67) 98 11/25/19 05:00 76 20 105/47 (66) 100 11/25/19 04:00 69 20 111/52 (71) 99 11/25/19 04:00 71 11/25/19 04:00 Mechanical Ventilator 11/25/19 04:00 35 11/25/19 03:30 73 20 35 11/25/19 03:00 71 20 119/53 (75) 100 11/25/19 02:00 68 20 105/51 (69) 99 11/25/19 01:00 65 20 99/50 (66) 100 11/25/19 00:00 72 11/25/19 00:00 Mechanical Ventilator 11/25/19 00:00 35 11/25/19 00:00 97.7 68 20 105/51 (69) 99 11/24/19 23:24 71 20 35 11/24/19 23:00 68 20 108/48 (68) 99 11/24/19 22:30 76 20 113/46 (68) 99 11/24/19 22:00 69 20 105/48 (67) 99 11/24/19 21:30 66 20 107/50 (69) 100 11/24/19 21:00 66 20 106/47 (66) 100 11/24/19 20:30 69 20 104/46 (65) 100 11/24/19 20:00 35 11/24/19 20:00 70 11/24/19 20:00 66 20 109/50 (69) 100 11/24/19 20:00 Mechanical Ventilator 11/24/19 19:58 67 20 35 11/24/19 19:30 68 20 106/49 (68) 100 Intake and Output 11/24/19 11/25/19 19:00 07:00 Intake Total 1670.55 ml 1185 ml Output Total 425 ml 500 ml Balance 1245.55 ml 685 ml IV Total 1100.55 ml 775 ml Tube Feeding 420 ml 350 ml Other 150 ml 60 ml Output Urine Total 25 ml 0 ml Stool Total 400 ml 500 ml Laboratory Tests Test 11/25/19 04:30 11/25/19 08:07 White Blood Count 19.7 K/UL (4.8-10.8) H Red Blood Count 2.76 M/UL (4.70-6.10) L Hemoglobin 8.0 G/DL (14.2-18.0) L Hematocrit 24.1 % (42.0-52.0) L Mean Corpuscular Volume 87 FL (80-99) Mean Corpuscular Hemoglobin 28.9 PG (27.0-31.0) Mean Corpuscular Hemoglobin Concent 33.0 G/DL (32.0-36.0) Red Cell Distribution Width 14.1 % (11.6-14.8) Platelet Count 246 K/UL (150-450) Mean Platelet Volume 7.0 FL (6.5-10.1) Neutrophils (%) (Auto) % (45.0-75.0) Lymphocytes (%) (Auto) % (20.0-45.0) Monocytes (%) (Auto) % (1.0-10.0) Eosinophils (%) (Auto) % (0.0-3.0) Basophils (%) (Auto) % (0.0-2.0) Differential Total Cells Counted 100 Neutrophils % (Manual) 89 % (45-75) H Lymphocytes % (Manual) 7 % (20-45) L Monocytes % (Manual) 3 % (1-10) Eosinophils % (Manual) 1 % (0-3) Basophils % (Manual) 0 % (0-2) Band Neutrophils 0 % (0-8) Platelet Estimate Adequate Platelet Morphology Normal Hypochromasia 2+ Anisocytosis 1+ Spherocytes 2+ Sodium Level 137 MMOL/L (136-145) Potassium Level 3.6 MMOL/L (3.5-5.1) Chloride Level 106 MMOL/L (98-107) Carbon Dioxide Level 17 MMOL/L (21-32) L Anion Gap 14 mmol/L (5-15) Blood Urea Nitrogen 54 mg/dL (7-18) H Creatinine 3.3 MG/DL (0.55-1.30) H Estimat Glomerular Filtration Rate 18.5 mL/min (>60) Glucose Level 138 MG/DL (74-106) H Uric Acid 8.2 MG/DL (2.6-7.2) H Calcium Level 6.7 MG/DL (8.5-10.1) L Phosphorus Level 5.6 MG/DL (2.5-4.9) H Magnesium Level 2.0 MG/DL (1.8-2.4) Total Bilirubin 0.3 MG/DL (0.2-1.0) Aspartate Amino Transf (AST/SGOT) 54 U/L (15-37) H Alanine Aminotransferase (ALT/SGPT) < 6 U/L (12-78) L Alkaline Phosphatase 64 U/L (46-116) C-Reactive Protein, Quantitative 4.1 mg/dL (0.00-0.90) H Pro-B-Type Natriuretic Peptide 3757 pg/mL (0-125) H Total Protein 4.5 G/DL (6.4-8.2) L Albumin 1.2 G/DL (3.4-5.0) L Globulin 3.3 g/dL Albumin/Globulin Ratio 0.4 (1.0-2.7) L Amylase Level 269 U/L (25-115) H Lipase 769 U/L (73-393) H Arterial Blood pH 7.288 (7.350-7.450) Arterial Blood Partial Pressure CO2 32.9 mmHg (35.0-45.0) L Arterial Blood Partial Pressure O2 102.4 mmHg (75.0-100.0) H Arterial Blood HCO3 15.4 mmol/L (22.0-26.0) *L Arterial Blood Oxygen Saturation 97.0 % (95-100) Arterial Blood Base Excess -10.2 (-2-2) *L Michael Test Positive Microbiology Date/Time Source Procedure Growth Status 11/24/19 12:30 Urine,Clean Catch Urine Culture - Preliminary NO GROWTH Resulted Objective pt seen but nto examined due to Chris Bush MD Nov 25, 2019 19:16
[2019-11-25] MEDS: Dyna-Hex 2% Top Sol 2oz TOPIC SCH (20:27)
[2019-11-26] VITALS (24 sets, daily range): BP systolic 99–150; BP diastolic 52–69
[2019-11-26] MEDS: Renvela 800mg Pkt NG SCH ×5 (00:10→21:43)
[2019-11-26] MEDS: D5NS 1,000 ML IV SCH ×2 (01:22→20:34)
[2019-11-26] MEDS: Midodrine 10mg tab ORAL SCH ×3 (05:48→21:43)
[2019-11-26 07:25] LABS: HEMATOCRIT 24.3 % (42.0-52.0); HEMOGLOBIN 7.8 G/DL (14.2-18.0); MEAN CORPUSCULAR VOLUME 88 FL (80-99); PLATELET COUNT 256 K/UL (150-450); RED BLOOD COUNT 2.76 M/UL (4.70-6.10); RED CELL DISTRIBUTION WIDTH 14.3 % (11.6-14.8); WHITE BLOOD COUNT 15.9 K/UL (4.8-10.8)
[2019-11-26 08:15] LABS: ALANINE AMINOTRANSFERASE 11 U/L (12-78); ALBUMIN 1.4 G/DL (3.4-5.0); ALBUMIN/GLOBULIN RATIO 0.4 (1.0-2.7); ALKALINE PHOSPHATASE 61 U/L (46-116); ANION GAP 11 mmol/L (5-15); ASPARTATE AMINO TRANSFERASE 65 U/L (15-37); BILIRUBIN,TOTAL 0.4 MG/DL (0.2-1.0); BLOOD UREA NITROGEN 37 mg/dL (7-18); CALCIUM 7.2 MG/DL (8.5-10.1); CARBON DIOXIDE 24 MMOL/L (21-32); CHLORIDE 106 MMOL/L (98-107); CREATININE 2.4 MG/DL (0.55-1.30); PHOSPHORUS 3.4 MG/DL (2.5-4.9); POTASSIUM 3.2 MMOL/L (3.5-5.1); SODIUM 141 MMOL/L (136-145)
[2019-11-26] MEDS: Pantoprazole Inj IV SCH (08:35)
[2019-11-26] MEDS: Vancomycin oral 125mg/2.5ml NG SCH ×4 (08:35→21:43)
[2019-11-26] MEDS: Heparin 5000 units/ml inj SUBQ SCH ×2 (08:35→19:58)
[2019-11-26] MEDS: Calcium Gluconate 10% 1 GM in NS 110 ML IVPB SCH ×2 (09:05→19:56)
[2019-11-26] MEDS ORDERED: 1/2 NS 1000ml IV ONE ×2 (09:22→10:49)
[2019-11-26] MEDS ORDERED: NS 275ml ONE ×3 (09:22→10:49)
[2019-11-26] MEDS: Norepinephrine Bitartrate 8 MG in D5W 500ml 550 ML IV SCH (10:00)
--- NOTE | 2019-11-26 10:05 | Nephrology Progress Note ---
Assessment/Plan Problem List: (1) ARF (acute renal failure) (2) Hyperkalemia (3) DM (diabetes mellitus) (4) Suspected COVID-19 virus infection (5) Sepsis (6) Severe malnutrition Assessment: Severe hypoalbuminemia Assessment his 74-year-old male with multiple Multiple medical problem presents with respiratory symptoms and diarrhea Renal failure most likely prerenal azotemia secondary to dehydration Hyperkalemia on presentation also secondary to dehydration Sepsis pneumonia hypoxia UTI Anemia History of hypertension History of diabetes mellitus Suspected COVID-19 virus infection Hypoalbuminemia Plan C. difficile positive COVID-19 detected November 25: Dialyzed yesterday. Lab reviewed. Remains full code. Remains intubated on ventilator. On minimal dose of pressors. 20 mEq potassium chloride IV ordered for low potassium level. November 24: Patient remains intubated. Due for dialysis today. Labs reviewed. Continues to be full code. November 23: Patient was dialyzed yesterday. Labs reviewed. Status quo. Remains full code. Will arrange for dialysis tomorrow. November 22: Patient in ICU. Intubated on ventilator. On low-dose pressors. Urine output labile. Serum creatinine rising. Patient developing acute renal failure. Need urgent dialysis treatment. Will arrange for placement of non- tunneled dialysis catheter as soon as possible. RN states that no family member or next of kin could be contacted at this time. Due to the urgency of the problem and the patient being full code will proceed with placement of dialysis catheter and dialysis treatment as soon as possible. November 21: Patient continues to do poorly. Discussed with RN. Started on Midodrin for BP support. Nephro feeding started. Phosphorus binders started. IV calcium ordered. Continue to monitor renal parameters and urine output. Continue per consultants. Patient remains full code. Per orders. November 20: Serum creatinine continuing to rise. Remains of 100 cc an hour IV fluid. Urine output remains low. Blood pressure also borderline low, on pressors. Continue per consultants. Continue to monitor renal parameters and urine output. Continue to avoid nephrotoxic's. Further deterioration of renal function may lead to dialysis treatment. Will discuss with PMD. November 19: Serum creatinine rising. Urine output decreasing. Will change to IV, D5 normal saline. Will give albumin bolus followed by Lasix 40 mg IV push. Continue to monitor renal parameters and urine output. Continue to avoid nephrotoxic medications as possible. Today's vancomycin level was 22. November 18: Serum creatinine rising. Continues to be full code. Continues to be intubated on ventilator. Remains on IV fluids. Vancomycin levels per pharmacy. Prognosis poor due to sepsis. November 17: Intubated on ventilator in ICU. Will continue half-normal saline 100 cc an hour. Continue per pulmonary and ID. Prognosis poor. Continue to monitor renal parameters. Hydrate with half-normal saline, serum creatinine now at its lowest today. monitor electrolytes Will change the feeding to Nepro and monitor her potassium and other electrolytes Continue per ID Keep the blood pressure and blood sugar in check Monitor renal parameters Previously: Urine studies Monitor intake and output Cultures including stool for C. difficile Per orders Patient's CODE STATUS is full Subjective ROS Limited/Unobtainable: Yes Objective Objective Last 24 Hour Vital Signs Date Time Temp Pulse Resp B/P (MAP) Pulse Ox O2 Delivery O2 Flow Rate FiO2 11/26/19 09:00 84 22 124/61 (82) 99 11/26/19 08:00 99.4 82 21 124/61 (82) 99 11/26/19 08:00 35 11/26/19 08:00 Mechanical Ventilator 11/26/19 07:59 86 11/26/19 07:06 82 21 35 11/26/19 07:00 78 20 135/57 (83) 99 11/26/19 06:00 83 20 140/60 (86) 99 11/26/19 05:00 77 20 143/62 (89) 99 11/26/19 04:00 Mechanical Ventilator 11/26/19 04:00 35 11/26/19 04:00 76 11/26/19 04:00 77 20 137/59 (85) 98 11/26/19 03:08 73 20 35 11/26/19 03:00 73 22 146/64 (91) 100 11/26/19 02:00 74 20 135/57 (83) 99 11/26/19 01:00 79 20 143/65 (91) 99 11/26/19 00:00 Mechanical Ventilator 11/26/19 00:00 78 20 139/61 (87) 98 11/26/19 00:00 35 11/26/19 00:00 75 11/25/19 23:09 76 20 35 11/25/19 23:00 77 20 139/65 (89) 99 11/25/19 22:00 81 20 144/71 (95) 98 11/25/19 21:00 75 20 132/60 (84) 99 11/25/19 20:00 35 11/25/19 20:00 76 11/25/19 20:00 97.8 75 20 133/63 (86) 97 11/25/19 20:00 Mechanical Ventilator 11/25/19 19:11 74 20 35 11/25/19 19:00 71 20 143/67 (92) 100 11/25/19 19:00 71 20 143/67 (92) 100 11/25/19 18:20 75 20 135/63 (87) 99 11/25/19 18:00 75 20 131/57 (81) 100 11/25/19 17:00 82 20 126/62 (83) 99 11/25/19 16:40 84 21 131/63 (85) 97 11/25/19 16:30 83 21 119/58 (78) 95 11/25/19 16:15 95 23 107/59 (75) 91 11/25/19 16:00 97.7 83 22 109/54 (72) 98 11/25/19 16:00 35 11/25/19 16:00 95 11/25/19 16:00 Mechanical Ventilator 11/25/19 15:15 90 21 144/72 (96) 99 11/25/19 15:00 79 23 114/57 (76) 99 11/25/19 14:51 89 20 35 11/25/19 14:15 73 23 119/62 (81) 98 11/25/19 14:00 78 22 110/62 (78) 98 11/25/19 13:00 79 22 126/63 (84) 98 11/25/19 12:30 73 20 100/49 (66) 99 11/25/19 12:00 35 11/25/19 12:00 75 11/25/19 12:00 Mechanical Ventilator 11/25/19 12:00 98.0 73 20 99/48 (65) 99 11/25/19 11:30 78 20 101/50 (67) 99 11/25/19 11:06 78 20 35 11/25/19 11:00 71 20 100/50 (67) 100 Intake and Output 11/25/19 11/26/19 19:00 07:00 Intake Total 1740 ml 1355 ml Output Total 845 ml 400 ml Balance 895 ml 955 ml IV Total 1290 ml 775 ml Tube Feeding 420 ml 420 ml Other 30 ml 160 ml Output Urine Total 45 ml Stool Total 800 ml 400 ml Laboratory Tests 11/26/19 04:40: White Blood Count 15.9H, Red Blood Count 2.76L, Hemoglobin 7.8L, Hematocrit 24.3L, Mean Corpuscular Volume 88, Mean Corpuscular Hemoglobin 28.2, Mean Corpuscular Hemoglobin Concent 32.1, Red Cell Distribution Width 14.3, Platelet Count 256, Mean Platelet Volume 6.9, Neutrophils (%) (Auto) , Lymphocytes (%) ( Auto) , Monocytes (%) (Auto) , Eosinophils (%) (Auto) , Basophils (%) (Auto) , Neutrophils % (Manual) [Pending], Lymphocytes % (Manual) [Pending], Platelet Estimate [Pending], Platelet Morphology [Pending], Sodium Level 141, Potassium Level 3.2L, Chloride Level 106, Carbon Dioxide Level 24, Anion Gap 11, Blood Urea Nitrogen 37H, Creatinine 2.4H, Estimat Glomerular Filtration Rate 26.7, Glucose Level 122H, Uric Acid 5.4, Calcium Level 7.2L, Phosphorus Level 3.4, Magnesium Level 2.1, Total Bilirubin 0.4, Aspartate Amino Transf (AST/SGOT) 65H , Alanine Aminotransferase (ALT/SGPT) 11L, Alkaline Phosphatase 61, C-Reactive Protein, Quantitative 3.4H, Pro-B-Type Natriuretic Peptide 4247H, Total Protein 4.7L, Albumin 1.4L, Globulin 3.3, Albumin/Globulin Ratio 0.4L Height (Feet): 6 Height (Inches): 0.00 Weight (Pounds): 185 General Appearance: no apparent distress EENT: other - Intubated on ventilator Cardiovascular: tachycardia Respiratory/Chest: decreased breath sounds Abdomen: distended Objective No other change Ricardo Choudhary MD Nov 26, 2019 10:05
[2019-11-26] MEDS ORDERED: D5NS 1000ml IV ONE ×3 (10:20→10:55)
[2019-11-26] MEDS ORDERED: D5W 275ml ONE ×2 (10:20→10:49)
[2019-11-26] MEDS ORDERED: Tubing IV Secondary IV ONE ×2 (10:20→10:49)
--- NOTE | 2019-11-26 10:22 | General Progress Note ---
Assessment/Plan Problem List: (1) DM (diabetes mellitus) ICD Codes: E11.9 - Type 2 diabetes mellitus without complications SNOMED: 32083314 (2) ARF (acute renal failure) ICD Codes: N17.9 - Acute kidney failure, unspecified SNOMED: 86410985 Qualifiers: Qualified Codes: N17.9 - Acute kidney failure, unspecified (3) Aspiration pneumonia ICD Codes: J69.0 - Pneumonitis due to inhalation of food and vomit SNOMED: 515855324 (4) UTI (urinary tract infection) ICD Codes: N39.0 - Urinary tract infection, site not specified SNOMED: 67097835 Qualifiers: Qualified Codes: N30.00 - Acute cystitis without hematuria (5) Hypertension ICD Codes: I10 - Essential (primary) hypertension SNOMED: 58343531 (6) Anemia ICD Codes: D64.9 - Anemia, unspecified SNOMED: 382712343 Qualifiers: Qualified Codes: D64.9 - Anemia, unspecified (7) Respiratory failure with hypoxia ICD Codes: J96.91 - Respiratory failure, unspecified with hypoxia SNOMED: 22630129447990000 Qualifiers: Qualified Codes: J96.01 - Acute respiratory failure with hypoxia (8) Suspected COVID-19 virus infection ICD Codes: Z20.828 - Contact with and (suspected) exposure to other viral communicable diseases SNOMED: 198222646 Status: unchanged Assessment/Plan: vent abx pt diet cbc bmp am Subjective Constitutional: Reports: weakness Allergies: Coded Allergies: No Known Allergies (Unverified , 09/16/19) All Systems: reviewed and negative except above Subjective intubated sedated in icu Objective Last 24 Hour Vital Signs Date Time Temp Pulse Resp B/P (MAP) Pulse Ox O2 Delivery O2 Flow Rate FiO2 11/26/19 09:00 84 22 124/61 (82) 99 11/26/19 08:00 99.4 82 21 124/61 (82) 99 11/26/19 08:00 35 11/26/19 08:00 Mechanical Ventilator 11/26/19 07:59 86 11/26/19 07:06 82 21 35 11/26/19 07:00 78 20 135/57 (83) 99 11/26/19 06:00 83 20 140/60 (86) 99 11/26/19 05:00 77 20 143/62 (89) 99 11/26/19 04:00 Mechanical Ventilator 11/26/19 04:00 35 11/26/19 04:00 76 11/26/19 04:00 77 20 137/59 (85) 98 11/26/19 03:08 73 20 35 11/26/19 03:00 73 22 146/64 (91) 100 11/26/19 02:00 74 20 135/57 (83) 99 11/26/19 01:00 79 20 143/65 (91) 99 11/26/19 00:00 Mechanical Ventilator 11/26/19 00:00 78 20 139/61 (87) 98 11/26/19 00:00 35 11/26/19 00:00 75 11/25/19 23:09 76 20 35 11/25/19 23:00 77 20 139/65 (89) 99 11/25/19 22:00 81 20 144/71 (95) 98 11/25/19 21:00 75 20 132/60 (84) 99 11/25/19 20:00 35 11/25/19 20:00 76 11/25/19 20:00 97.8 75 20 133/63 (86) 97 11/25/19 20:00 Mechanical Ventilator 11/25/19 19:11 74 20 35 11/25/19 19:00 71 20 143/67 (92) 100 11/25/19 19:00 71 20 143/67 (92) 100 11/25/19 18:20 75 20 135/63 (87) 99 11/25/19 18:00 75 20 131/57 (81) 100 11/25/19 17:00 82 20 126/62 (83) 99 11/25/19 16:40 84 21 131/63 (85) 97 11/25/19 16:30 83 21 119/58 (78) 95 11/25/19 16:15 95 23 107/59 (75) 91 11/25/19 16:00 97.7 83 22 109/54 (72) 98 11/25/19 16:00 35 11/25/19 16:00 95 11/25/19 16:00 Mechanical Ventilator 11/25/19 15:15 90 21 144/72 (96) 99 11/25/19 15:00 79 23 114/57 (76) 99 11/25/19 14:51 89 20 35 11/25/19 14:15 73 23 119/62 (81) 98 11/25/19 14:00 78 22 110/62 (78) 98 11/25/19 13:00 79 22 126/63 (84) 98 11/25/19 12:30 73 20 100/49 (66) 99 11/25/19 12:00 35 11/25/19 12:00 75 11/25/19 12:00 Mechanical Ventilator 11/25/19 12:00 98.0 73 20 99/48 (65) 99 11/25/19 11:30 78 20 101/50 (67) 99 11/25/19 11:06 78 20 35 11/25/19 11:00 71 20 100/50 (67) 100 Intake and Output 11/25/19 11/26/19 19:00 07:00 Intake Total 1740 ml 1355 ml Output Total 845 ml 400 ml Balance 895 ml 955 ml IV Total 1290 ml 775 ml Tube Feeding 420 ml 420 ml Other 30 ml 160 ml Output Urine Total 45 ml Stool Total 800 ml 400 ml Laboratory Tests 11/26/19 04:40: White Blood Count 15.9H, Red Blood Count 2.76L, Hemoglobin 7.8L, Hematocrit 24.3L, Mean Corpuscular Volume 88, Mean Corpuscular Hemoglobin 28.2, Mean Corpuscular Hemoglobin Concent 32.1, Red Cell Distribution Width 14.3, Platelet Count 256, Mean Platelet Volume 6.9, Neutrophils (%) (Auto) , Lymphocytes (%) ( Auto) , Monocytes (%) (Auto) , Eosinophils (%) (Auto) , Basophils (%) (Auto) , Neutrophils % (Manual) [Pending], Lymphocytes % (Manual) [Pending], Platelet Estimate [Pending], Platelet Morphology [Pending], Sodium Level 141, Potassium Level 3.2L, Chloride Level 106, Carbon Dioxide Level 24, Anion Gap 11, Blood Urea Nitrogen 37H, Creatinine 2.4H, Estimat Glomerular Filtration Rate 26.7, Glucose Level 122H, Uric Acid 5.4, Calcium Level 7.2L, Phosphorus Level 3.4, Magnesium Level 2.1, Total Bilirubin 0.4, Aspartate Amino Transf (AST/SGOT) 65H , Alanine Aminotransferase (ALT/SGPT) 11L, Alkaline Phosphatase 61, C-Reactive Protein, Quantitative 3.4H, Pro-B-Type Natriuretic Peptide 4247H, Total Protein 4.7L, Albumin 1.4L, Globulin 3.3, Albumin/Globulin Ratio 0.4L Height (Feet): 6 Height (Inches): 0.00 Weight (Pounds): 185 General Appearance: lethargic EENT: normal ENT inspection Neck: normal alignment Cardiovascular: normal rate, regular rhythm Respiratory/Chest: no respiratory distress, no accessory muscle use Extremities: normal inspection Skin: normal pigmentation Juan Singh DO Nov 26, 2019 10:22
--- NOTE | 2019-11-26 10:34 | Infectious Diseases Prog Note ---
Assessment/Plan Assessment/Plan Assessment: PEA arrest> unstable SVT s/p cardioversion 11/17 Septic shock- SP Fever, recurrent; SP Leukocytosis; fluctuating; improving -11/23 u/a wbc 15-20, nit neg, leuk +2; ucx NTD Bcx p -11/17 u/a no pyuria; ucx neg Bcx Neg sp cx PsA (R Zosyn; S Gentamycin, levaquin, Cefepime, ceftazidime, Meropenem), P. mirabilis ([facility] S) Pneumonia Acute hypoxic resp failure- sp NRB 15L, now VDRF 11/17 - 2ry to COVID19 and superimposed bacterial PNA -11/24 CXR: Right basilar pleural effusion and likely parenchymal consolidation are unchanged -11/22 CXR: Slight increased right effusion. Right basilar infiltrate again noted. -11/19 CXR: There is been worsening of moderately consolidating right middle lobe pneumonia. -11/17 CXR: Bilateral lower lobe atelectasis/infiltrates, slightly increased. No large pleural effusions. -11/15 CXR: New/increased infiltrates at the left lateral lung base -11/11 CXR: Mild interstitial thickening is slightly improved. -11/10 CXR: Hazy basilar infiltrates left greater than right. sp cx PsA ([facility] S), P.mirabilis ([facility] S), MRSA (S Vanco CARLOS 1, bactrim; R tetracycline ) -11/10 SARS-COV2 positive UTI c/w bacteremia -u/a wbc 5-10, nit neg, leuk +1, RBC TNCT; ucx 10-20k E. faecalis (S amp, vanco) -11/10 Bcx 2/4 E. faecalis (S Vancomycin, AMP) CONS bacteremia- likely contaminant -11/10 Bcx 2/4 S. 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 Will continue to follow along with you. Discussed with RN and pharm Subjective Allergies: Coded Allergies: No Known Allergies (Unverified , 09/16/19) Subjective Aferbile WBCs improving Objective Vital Signs Last 24 Hour Vital Signs Date Time Temp Pulse Resp B/P (MAP) Pulse Ox O2 Delivery O2 Flow Rate FiO2 11/26/19 09:00 84 22 124/61 (82) 99 11/26/19 08:00 99.4 82 21 124/61 (82) 99 11/26/19 08:00 35 11/26/19 08:00 Mechanical Ventilator 11/26/19 07:59 86 11/26/19 07:06 82 21 35 11/26/19 07:00 78 20 135/57 (83) 99 11/26/19 06:00 83 20 140/60 (86) 99 11/26/19 05:00 77 20 143/62 (89) 99 11/26/19 04:00 Mechanical Ventilator 11/26/19 04:00 35 11/26/19 04:00 76 11/26/19 04:00 77 20 137/59 (85) 98 11/26/19 03:08 73 20 35 11/26/19 03:00 73 22 146/64 (91) 100 11/26/19 02:00 74 20 135/57 (83) 99 11/26/19 01:00 79 20 143/65 (91) 99 11/26/19 00:00 Mechanical Ventilator 11/26/19 00:00 78 20 139/61 (87) 98 11/26/19 00:00 35 11/26/19 00:00 75 11/25/19 23:09 76 20 35 11/25/19 23:00 77 20 139/65 (89) 99 11/25/19 22:00 81 20 144/71 (95) 98 11/25/19 21:00 75 20 132/60 (84) 99 11/25/19 20:00 35 11/25/19 20:00 76 11/25/19 20:00 97.8 75 20 133/63 (86) 97 11/25/19 20:00 Mechanical Ventilator 11/25/19 19:11 74 20 35 11/25/19 19:00 71 20 143/67 (92) 100 11/25/19 19:00 71 20 143/67 (92) 100 11/25/19 18:20 75 20 135/63 (87) 99 11/25/19 18:00 75 20 131/57 (81) 100 11/25/19 17:00 82 20 126/62 (83) 99 11/25/19 16:40 84 21 131/63 (85) 97 11/25/19 16:30 83 21 119/58 (78) 95 11/25/19 16:15 95 23 107/59 (75) 91 11/25/19 16:00 97.7 83 22 109/54 (72) 98 11/25/19 16:00 35 11/25/19 16:00 95 11/25/19 16:00 Mechanical Ventilator 11/25/19 15:15 90 21 144/72 (96) 99 11/25/19 15:00 79 23 114/57 (76) 99 11/25/19 14:51 89 20 35 11/25/19 14:15 73 23 119/62 (81) 98 11/25/19 14:00 78 22 110/62 (78) 98 11/25/19 13:00 79 22 126/63 (84) 98 11/25/19 12:30 73 20 100/49 (66) 99 11/25/19 12:00 35 11/25/19 12:00 75 11/25/19 12:00 Mechanical Ventilator 11/25/19 12:00 98.0 73 20 99/48 (65) 99 11/25/19 11:30 78 20 101/50 (67) 99 11/25/19 11:06 78 20 35 11/25/19 11:00 71 20 100/50 (67) 100 Height (Feet): 6 Height (Inches): 0.00 Weight (Pounds): 185 Objective Gen: critically ill on vent HEENT: ETT in place Lungs: no tacypnea or use of accessory muscles Neuro: lethargic Microbiology Date/Time Source Procedure Growth Status 11/24/19 16:50 Blood Blood Culture - Preliminary NO GROWTH AFTER 24 HOURS Resulted 11/24/19 12:30 Blood Blood Culture - Preliminary NO GROWTH AFTER 24 HOURS Resulted 11/24/19 12:30 Urine,Clean Catch Urine Culture - Preliminary Yeast Species Resulted Laboratory Tests Test 11/26/19 04:40 White Blood Count 15.9 K/UL (4.8-10.8) H Red Blood Count 2.76 M/UL (4.70-6.10) L Hemoglobin 7.8 G/DL (14.2-18.0) L Hematocrit 24.3 % (42.0-52.0) L Mean Corpuscular Volume 88 FL (80-99) Mean Corpuscular Hemoglobin 28.2 PG (27.0-31.0) Mean Corpuscular Hemoglobin Concent 32.1 G/DL (32.0-36.0) Red Cell Distribution Width 14.3 % (11.6-14.8) Platelet Count 256 K/UL (150-450) Mean Platelet Volume 6.9 FL (6.5-10.1) Neutrophils (%) (Auto) % (45.0-75.0) Lymphocytes (%) (Auto) % (20.0-45.0) Monocytes (%) (Auto) % (1.0-10.0) Eosinophils (%) (Auto) % (0.0-3.0) Basophils (%) (Auto) % (0.0-2.0) Neutrophils % (Manual) Pending Lymphocytes % (Manual) Pending Platelet Estimate Pending Platelet Morphology Pending Sodium Level 141 MMOL/L (136-145) Potassium Level 3.2 MMOL/L (3.5-5.1) L Chloride Level 106 MMOL/L (98-107) Carbon Dioxide Level 24 MMOL/L (21-32) Anion Gap 11 mmol/L (5-15) Blood Urea Nitrogen 37 mg/dL (7-18) H Creatinine 2.4 MG/DL (0.55-1.30) H Estimat Glomerular Filtration Rate 26.7 mL/min (>60) Glucose Level 122 MG/DL (74-106) H Uric Acid 5.4 MG/DL (2.6-7.2) Calcium Level 7.2 MG/DL (8.5-10.1) L Phosphorus Level 3.4 MG/DL (2.5-4.9) Magnesium Level 2.1 MG/DL (1.8-2.4) Total Bilirubin 0.4 MG/DL (0.2-1.0) Aspartate Amino Transf (AST/SGOT) 65 U/L (15-37) H Alanine Aminotransferase (ALT/SGPT) 11 U/L (12-78) L Alkaline Phosphatase 61 U/L (46-116) C-Reactive Protein, Quantitative 3.4 mg/dL (0.00-0.90) H Pro-B-Type Natriuretic Peptide 4247 pg/mL (0-125) H Total Protein 4.7 G/DL (6.4-8.2) L Albumin 1.4 G/DL (3.4-5.0) L Globulin 3.3 g/dL Albumin/Globulin Ratio 0.4 (1.0-2.7) L Current Medications Medications (Trade) Dose Ordered Sig/Leonor Route PRN Reason Start Time Stop Time Status Last Admin Dose Admin Acetaminophen (Tylenol) 650 mg Q4H PRN GT fever 11/18/19 03:00 12/11/19 02:59 11/19/19 20:04 Allopurinol (allopurinoL) 300 mg DAILY GT 11/21/19 09:00 12/21/19 08:59 11/26/19 08:36 Calcium Gluconate 1 gm/Sodium Chloride 120 ml @ 240 mls/hr Q12HR IVPB 11/22/19 09:00 12/22/19 08:59 11/26/19 09:05 Cefepime HCl 1 gm/ Dextrose 55 ml @ 110 mls/hr QHS IVPB 11/26/19 21:00 12/03/19 20:59 Chlorhexidine Gluconate (Danielle-Hex 2%) 1 applic DAILY@2000 TOPIC 11/18/19 20:00 02/16/20 19:59 11/25/19 20:27 Dextrose/Sodium Chloride 1,000 ml @ 50 mls/hr Q20H IV 11/22/19 10:15 12/20/19 10:14 11/26/19 01:22 Heparin Sodium (Porcine) (Heparin 5000 units/ml) 5,000 units EVERY 12 HOURS SUBQ 11/18/19 09:00 12/26/19 08:59 11/26/19 08:35 Midodrine (Pro-Amatine) 10 mg Q8HR ORAL 11/22/19 14:00 02/20/20 13:59 11/26/19 05:48 Norepinephrine Bitartrate 8 mg/ Dextrose 558 ml @ 0 mls/hr Q24H IV 11/18/19 10:00 12/18/19 09:59 11/23/19 22:22 Ondansetron HCl (Zofran) 4 mg Q6H PRN IVP Nausea & Vomiting 11/18/19 03:00 12/11/19 08:59 Pantoprazole (Protonix) 40 mg DAILY IV 11/19/19 09:00 12/19/19 08:59 11/26/19 08:35 Potassium Chloride 100 ml @ 50 mls/hr ONCE IVPB 11/26/19 08:45 11/26/19 11:00 11/26/19 09:05 Sevelamer Carbonate (Renvela) 800 mg Q6HR NG 11/22/19 08:00 02/20/20 07:59 11/26/19 05:48 Vancomycin HCl (Firvanq) 125 mg FOUR TIMES A DAY NG 11/18/19 09:00 11/26/19 23:59 11/26/19 08:35 Mickey Price MD Nov 26, 2019 10:34
[2019-11-26] MEDS ORDERED: NS 500ML ONE (10:55)
--- NOTE | 2019-11-26 13:14 | Surgery Progress Note ---
Surgery Progress Note Subjective Additional Comments prognosis guarded Objective Last 24 Hour Vital Signs Date Time Temp Pulse Resp B/P (MAP) Pulse Ox O2 Delivery O2 Flow Rate FiO2 11/26/19 13:00 83 21 105/52 (69) 99 11/26/19 12:00 99.5 90 18 104/55 (71) 97 11/26/19 11:15 95 21 35 11/26/19 11:00 93 19 110/54 (72) 96 11/26/19 10:00 87 21 120/61 (80) 98 11/26/19 09:00 84 22 124/61 (82) 99 11/26/19 08:00 99.4 82 21 124/61 (82) 99 11/26/19 08:00 35 11/26/19 08:00 Mechanical Ventilator 11/26/19 07:59 86 11/26/19 07:06 82 21 35 11/26/19 07:00 78 20 135/57 (83) 99 11/26/19 06:00 83 20 140/60 (86) 99 11/26/19 05:00 77 20 143/62 (89) 99 11/26/19 04:00 Mechanical Ventilator 11/26/19 04:00 35 11/26/19 04:00 76 11/26/19 04:00 77 20 137/59 (85) 98 11/26/19 03:08 73 20 35 11/26/19 03:00 73 22 146/64 (91) 100 11/26/19 02:00 74 20 135/57 (83) 99 11/26/19 01:00 79 20 143/65 (91) 99 11/26/19 00:00 Mechanical Ventilator 11/26/19 00:00 78 20 139/61 (87) 98 11/26/19 00:00 35 11/26/19 00:00 75 11/25/19 23:09 76 20 35 11/25/19 23:00 77 20 139/65 (89) 99 11/25/19 22:00 81 20 144/71 (95) 98 11/25/19 21:00 75 20 132/60 (84) 99 11/25/19 20:00 35 11/25/19 20:00 76 11/25/19 20:00 97.8 75 20 133/63 (86) 97 6/12/20 20:00 Mechanical Ventilator 11/25/19 19:11 74 20 35 11/25/19 19:00 71 20 143/67 (92) 100 11/25/19 19:00 71 20 143/67 (92) 100 11/25/19 18:20 75 20 135/63 (87) 99 11/25/19 18:00 75 20 131/57 (81) 100 11/25/19 17:00 82 20 126/62 (83) 99 11/25/19 16:40 84 21 131/63 (85) 97 11/25/19 16:30 83 21 119/58 (78) 95 11/25/19 16:15 95 23 107/59 (75) 91 11/25/19 16:00 97.7 83 22 109/54 (72) 98 11/25/19 16:00 35 11/25/19 16:00 95 11/25/19 16:00 Mechanical Ventilator 11/25/19 15:15 90 21 144/72 (96) 99 11/25/19 15:00 79 23 114/57 (76) 99 11/25/19 14:51 89 20 35 11/25/19 14:15 73 23 119/62 (81) 98 11/25/19 14:00 78 22 110/62 (78) 98 I&O Intake and Output 11/25/19 11/26/19 19:00 07:00 Intake Total 1740 ml 1355 ml Output Total 845 ml 400 ml Balance 895 ml 955 ml IV Total 1290 ml 775 ml Tube Feeding 420 ml 420 ml Other 30 ml 160 ml Output Urine Total 45 ml Stool Total 800 ml 400 ml Cardiovascular: RSR Respiratory: decreased breath sounds Abdomen: soft, present bowel sounds Extremities: no cyanosis Laboratory Tests Test 11/26/19 04:40 White Blood Count 15.9 K/UL (4.8-10.8) H Red Blood Count 2.76 M/UL (4.70-6.10) L Hemoglobin 7.8 G/DL (14.2-18.0) L Hematocrit 24.3 % (42.0-52.0) L Mean Corpuscular Volume 88 FL (80-99) Mean Corpuscular Hemoglobin 28.2 PG (27.0-31.0) Mean Corpuscular Hemoglobin Concent 32.1 G/DL (32.0-36.0) Red Cell Distribution Width 14.3 % (11.6-14.8) Platelet Count 256 K/UL (150-450) Mean Platelet Volume 6.9 FL (6.5-10.1) Neutrophils (%) (Auto) % (45.0-75.0) Lymphocytes (%) (Auto) % (20.0-45.0) Monocytes (%) (Auto) % (1.0-10.0) Eosinophils (%) (Auto) % (0.0-3.0) Basophils (%) (Auto) % (0.0-2.0) Differential Total Cells Counted 100 Neutrophils % (Manual) 81 % (45-75) H Lymphocytes % (Manual) 16 % (20-45) L Monocytes % (Manual) 3 % (1-10) Eosinophils % (Manual) 0 % (0-3) Basophils % (Manual) 0 % (0-2) Band Neutrophils 0 % (0-8) Platelet Estimate Adequate Platelet Morphology Normal Hypochromasia 1+ Anisocytosis 1+ Sodium Level 141 MMOL/L (136-145) Potassium Level 3.2 MMOL/L (3.5-5.1) L Chloride Level 106 MMOL/L (98-107) Carbon Dioxide Level 24 MMOL/L (21-32) Anion Gap 11 mmol/L (5-15) Blood Urea Nitrogen 37 mg/dL (7-18) H Creatinine 2.4 MG/DL (0.55-1.30) H Estimat Glomerular Filtration Rate 26.7 mL/min (>60) Glucose Level 122 MG/DL (74-106) H Uric Acid 5.4 MG/DL (2.6-7.2) Calcium Level 7.2 MG/DL (8.5-10.1) L Phosphorus Level 3.4 MG/DL (2.5-4.9) Magnesium Level 2.1 MG/DL (1.8-2.4) Total Bilirubin 0.4 MG/DL (0.2-1.0) Aspartate Amino Transf (AST/SGOT) 65 U/L (15-37) H Alanine Aminotransferase (ALT/SGPT) 11 U/L (12-78) L Alkaline Phosphatase 61 U/L (46-116) C-Reactive Protein, Quantitative 3.4 mg/dL (0.00-0.90) H Pro-B-Type Natriuretic Peptide 4247 pg/mL (0-125) H Total Protein 4.7 G/DL (6.4-8.2) L Albumin 1.4 G/DL (3.4-5.0) L Globulin 3.3 g/dL Albumin/Globulin Ratio 0.4 (1.0-2.7) L Plan Problems: (1) Decubitus skin ulcer Assessment & Plan: Pt presented on admission with large sacral wound. Base of wound with areas that area purple and indurated sacrococcygeal,L sacrum/L gluteus,Scattered wounds with maceration L gluteus, one wound R sacrum with Biofilm, Surrounding non-blanching erythema entire buttocks. Small dry scabbed area noted to lumbar area. Unstageable Pressure Injury L heel. Base of wound is necrotic with surrounding non-blanching erythema. Tx.plan: Apply Moisture Barrier Paste to Buttocks. Cover Sacrum, R and L gluteal cheeks with Optifoam drsgs. Change every 3 days and prn. Apply Betadine to L heel. Cover with Optifoam drsg. Change every 3 days and prn. Reposition at least every 2hours or as tolerated. Place Pillow between knees. Off-load heels with Pillow. APM/BRUNILDA Mattress overlay. DAILY ESTIMATED NEEDS: Needs based on wt loss, underweight, wound/ 59kg 30-35 kcals/kg 9398-4433 total kcals 1.25-2 g protein/kg 74-118 g total protein 25-30 mL/kg 6071-7453 total fluid mLs NUTRITION DIAGNOSIS: * Increased kcal/prot intake needs R/T wound healing, suspected recent significant wt loss as evidenced by admitted w/ wounds @ lt posterior heel, R lower back, sacrum as per photos, pending eval, suspected significant wt loss of 40lbs/ 23.7% in <5 months, currently @ 81% IBW. . * Swallowing difficulty R/T dysphagia, h/o CVA as evidenced by PEG dependent. CURRENT TF:Glucerna 1.2 @65ml/hr x24 hrs ENTERAL NUTRITION RECOMMENDATIONS: NEPRO @45ml/hr x24 hrs to provide 1080ml, 1944 kcal, 87g pro, 785ml free H2O - Rec TF change for lower K content (1145mg in Nepro @45 vs 3151mg in Glucerna 1.2 @65) - Start at 25ml/hr advance as tolerated 10ml/hr q4-6 hrs - HOB over 30 degrees - Increased H20 flush to 200ml q4 hrs ADDITIONAL RECOMMENDATIONS: 1) Calibrated bedscale wt -> per SNF: HT=59" and HI=812eom (10/20/19) 2) Wound healing: Add Vit C 500mg QD/ or dosing per nephro Add Osbaldo BID via PEG w/ TF order 3) Monitor lytes: monitor K trend, need for renal TF (K 5.3, 5.5) 4) NISS w/ TF (h/o DM) 5) Monitor for diarrhea, rec probiotics (2) Sepsis Assessment & Plan: 74-year-old male multi-medical comorbidities admitted for respiratory deficiency currently tachypneic, leukocytosis, malnutrition, hypoalbuminemia. Complete physical exam performed identified areas of concerned given patient's comorbidities current condition high risk for deteriorationNo active infection identified from patient's wounds and likely respiratory nature. Chest x-ray reviewed. No acute surgical intervention planned at this time Preventive measures IV antibiotics per infectious disease Okay for feeding once stable respiratory Appreciate Pulm input c diff positive on vanco blood cx noted worsening leukocytosis ID abx noted heme input noted There are increasing basilar opacities on the left noted. The heart size is normal. The pleural spaces are clear. 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
[2019-11-26] MEDS: Dyna-Hex 2% Top Sol 2oz TOPIC SCH (19:50)
[2019-11-26] MEDS ORDERED: Cefepime HCl 1 GM in D5W 55 ML IVPB SCH (21:00)
--- NOTE | 2019-11-26 21:11 | Cardiology Progress Note ---
Assessment/Plan Assessment/Plan COVD pneumonia coma, encephalopathy, anoxic plus vascular sinsu tahcycardia is a reflection of his septic status Subjective Subjective The patient is comatose, on vent Objective Last 24 Hour Vital Signs Date Time Temp Pulse Resp B/P (MAP) Pulse Ox O2 Delivery O2 Flow Rate FiO2 11/26/19 20:30 72 20 100 11/26/19 20:00 35 11/26/19 20:00 71 20 132/65 (87) 100 11/26/19 20:00 71 11/26/19 20:00 Mechanical Ventilator 11/26/19 19:30 72 20 35 11/26/19 19:00 74 20 135/66 (89) 100 11/26/19 18:00 98.7 76 21 123/60 (81) 100 11/26/19 17:00 81 17 111/58 (75) 100 11/26/19 16:00 35 11/26/19 16:00 100 20 113/56 (75) 100 11/26/19 16:00 78 11/26/19 16:00 Mechanical Ventilator 11/26/19 15:00 100 21 105/53 (70) 100 11/26/19 14:34 76 21 35 11/26/19 14:00 79 21 99/56 (70) 99 11/26/19 13:00 83 21 105/52 (69) 99 11/26/19 12:00 80 11/26/19 12:00 Mechanical Ventilator 11/26/19 12:00 35 11/26/19 12:00 99.5 90 18 104/55 (71) 97 11/26/19 11:15 95 21 35 11/26/19 11:00 93 19 110/54 (72) 96 11/26/19 10:00 87 21 120/61 (80) 98 11/26/19 09:00 84 22 124/61 (82) 99 11/26/19 08:00 99.4 82 21 124/61 (82) 99 11/26/19 08:00 35 11/26/19 08:00 Mechanical Ventilator 11/26/19 07:59 86 11/26/19 07:06 82 21 35 11/26/19 07:00 78 20 135/57 (83) 99 11/26/19 06:00 83 20 140/60 (86) 99 11/26/19 05:00 77 20 143/62 (89) 99 11/26/19 04:00 Mechanical Ventilator 11/26/19 04:00 35 11/26/19 04:00 76 11/26/19 04:00 77 20 137/59 (85) 98 11/26/19 03:08 73 20 35 11/26/19 03:00 73 22 146/64 (91) 100 11/26/19 02:00 74 20 135/57 (83) 99 11/26/19 01:00 79 20 143/65 (91) 99 11/26/19 00:00 Mechanical Ventilator 11/26/19 00:00 78 20 139/61 (87) 98 11/26/19 00:00 35 11/26/19 00:00 75 11/25/19 23:09 76 20 35 11/25/19 23:00 77 20 139/65 (89) 99 11/25/19 22:00 81 20 144/71 (95) 98 General Appearance: on vent EENT: PERRL/EOMI Neck: non-tender Rhythm: ST Cardiovascular: regular rhythm Respiratory/Chest: rhonchi - bilaterally Abdomen: decreased bowel sounds, distended Extremities: non-pitting Intake and Output 11/25/19 11/26/19 19:00 07:00 Intake Total 1740 ml 1355 ml Output Total 845 ml 400 ml Balance 895 ml 955 ml IV Total 1290 ml 775 ml Tube Feeding 420 ml 420 ml Other 30 ml 160 ml Output Urine Total 45 ml Stool Total 800 ml 400 ml Laboratory Tests Test 11/26/19 04:40 White Blood Count 15.9 K/UL (4.8-10.8) H Red Blood Count 2.76 M/UL (4.70-6.10) L Hemoglobin 7.8 G/DL (14.2-18.0) L Hematocrit 24.3 % (42.0-52.0) L Mean Corpuscular Volume 88 FL (80-99) Mean Corpuscular Hemoglobin 28.2 PG (27.0-31.0) Mean Corpuscular Hemoglobin Concent 32.1 G/DL (32.0-36.0) Red Cell Distribution Width 14.3 % (11.6-14.8) Platelet Count 256 K/UL (150-450) Mean Platelet Volume 6.9 FL (6.5-10.1) Neutrophils (%) (Auto) % (45.0-75.0) Lymphocytes (%) (Auto) % (20.0-45.0) Monocytes (%) (Auto) % (1.0-10.0) Eosinophils (%) (Auto) % (0.0-3.0) Basophils (%) (Auto) % (0.0-2.0) Differential Total Cells Counted 100 Neutrophils % (Manual) 81 % (45-75) H Lymphocytes % (Manual) 16 % (20-45) L Monocytes % (Manual) 3 % (1-10) Eosinophils % (Manual) 0 % (0-3) Basophils % (Manual) 0 % (0-2) Band Neutrophils 0 % (0-8) Platelet Estimate Adequate Platelet Morphology Normal Hypochromasia 1+ Anisocytosis 1+ Sodium Level 141 MMOL/L (136-145) Potassium Level 3.2 MMOL/L (3.5-5.1) L Chloride Level 106 MMOL/L (98-107) Carbon Dioxide Level 24 MMOL/L (21-32) Anion Gap 11 mmol/L (5-15) Blood Urea Nitrogen 37 mg/dL (7-18) H Creatinine 2.4 MG/DL (0.55-1.30) H Estimat Glomerular Filtration Rate 26.7 mL/min (>60) Glucose Level 122 MG/DL (74-106) H Uric Acid 5.4 MG/DL (2.6-7.2) Calcium Level 7.2 MG/DL (8.5-10.1) L Phosphorus Level 3.4 MG/DL (2.5-4.9) Magnesium Level 2.1 MG/DL (1.8-2.4) Total Bilirubin 0.4 MG/DL (0.2-1.0) Aspartate Amino Transf (AST/SGOT) 65 U/L (15-37) H Alanine Aminotransferase (ALT/SGPT) 11 U/L (12-78) L Alkaline Phosphatase 61 U/L (46-116) C-Reactive Protein, Quantitative 3.4 mg/dL (0.00-0.90) H Pro-B-Type Natriuretic Peptide 4247 pg/mL (0-125) H Total Protein 4.7 G/DL (6.4-8.2) L Albumin 1.4 G/DL (3.4-5.0) L Globulin 3.3 g/dL Albumin/Globulin Ratio 0.4 (1.0-2.7) L Microbiology Date/Time Source Procedure Growth Status 11/24/19 16:50 Blood Blood Culture - Preliminary NO GROWTH AFTER 24 HOURS Resulted 11/24/19 12:30 Blood Blood Culture - Preliminary NO GROWTH AFTER 24 HOURS Resulted 11/24/19 12:30 Urine,Clean Catch Urine Culture - Preliminary Yeast Species Resulted Alyssia Reed MD Nov 26, 2019 21:11
[2019-11-27] VITALS (24 sets, daily range): BP systolic 121–166; BP diastolic 56–112
[2019-11-27] MEDS: Midodrine 10mg tab ORAL SCH (04:21)
[2019-11-27] MEDS: Renvela 800mg Pkt NG SCH ×2 (04:21→20:37)
[2019-11-27 05:42] LABS: MEAN CORPUSCULAR VOLUME 91 FL (80-99); PLATELET COUNT 281 K/UL (150-450); RED BLOOD COUNT 2.87 M/UL (4.70-6.10); RED CELL DISTRIBUTION WIDTH 16.2 % (11.6-14.8); WHITE BLOOD COUNT 19.9 K/UL (4.8-10.8)
[2019-11-27 07:14] LABS: ALANINE AMINOTRANSFERASE 9 U/L (12-78); ALBUMIN 1.3 G/DL (3.4-5.0); ALBUMIN/GLOBULIN RATIO 0.4 (1.0-2.7); ALKALINE PHOSPHATASE 64 U/L (46-116); ANION GAP 12 mmol/L (5-15); ASPARTATE AMINO TRANSFERASE 61 U/L (15-37); BILIRUBIN,TOTAL 0.4 MG/DL (0.2-1.0); BLOOD UREA NITROGEN 47 mg/dL (7-18); CALCIUM 6.9 MG/DL (8.5-10.1); CARBON DIOXIDE 23 MMOL/L (21-32); CHLORIDE 108 MMOL/L (98-107); CREATININE 2.5 MG/DL (0.55-1.30); PHOSPHORUS 3.6 MG/DL (2.5-4.9); POTASSIUM 3.6 MMOL/L (3.5-5.1); SODIUM 143 MMOL/L (136-145)
[2019-11-27] MEDS ORDERED: Calcium Gluconate 1gm/10ml vial ONE (08:30)
[2019-11-27] MEDS: Pantoprazole Inj IV SCH (08:35)
[2019-11-27] MEDS: Calcium Gluconate 10% 1 GM in NS 110 ML IVPB SCH ×2 (08:35→20:37)
[2019-11-27] MEDS: Heparin 5000 units/ml inj SUBQ SCH ×2 (08:37→20:39)
--- NOTE | 2019-11-27 09:19 | General Progress Note ---
Assessment/Plan Problem List: (1) DM (diabetes mellitus) ICD Codes: E11.9 - Type 2 diabetes mellitus without complications SNOMED: 24663806 (2) ARF (acute renal failure) ICD Codes: N17.9 - Acute kidney failure, unspecified SNOMED: 87533314 Qualifiers: Qualified Codes: N17.9 - Acute kidney failure, unspecified (3) Aspiration pneumonia ICD Codes: J69.0 - Pneumonitis due to inhalation of food and vomit SNOMED: 773145813 (4) UTI (urinary tract infection) ICD Codes: N39.0 - Urinary tract infection, site not specified SNOMED: 61287980 Qualifiers: Qualified Codes: N30.00 - Acute cystitis without hematuria (5) Hypertension ICD Codes: I10 - Essential (primary) hypertension SNOMED: 69019436 (6) Anemia ICD Codes: D64.9 - Anemia, unspecified SNOMED: 159184626 Qualifiers: Qualified Codes: D64.9 - Anemia, unspecified (7) Respiratory failure with hypoxia ICD Codes: J96.91 - Respiratory failure, unspecified with hypoxia SNOMED: 24739801002396189 Qualifiers: Qualified Codes: J96.01 - Acute respiratory failure with hypoxia (8) Suspected COVID-19 virus infection ICD Codes: Z20.828 - Contact with and (suspected) exposure to other viral communicable diseases SNOMED: 286322965 Status: unchanged Assessment/Plan: vent abx pt diet cbc bmp am Subjective Constitutional: Reports: weakness Allergies: Coded Allergies: No Known Allergies (Unverified , 09/16/19) All Systems: reviewed and negative except above Subjective intubated sedated in icu Objective Last 24 Hour Vital Signs Date Time Temp Pulse Resp B/P (MAP) Pulse Ox O2 Delivery O2 Flow Rate FiO2 11/27/19 07:05 73 20 35 11/27/19 07:00 81 14 166/81 (109) 100 11/27/19 06:00 71 20 143/61 (88) 100 11/27/19 05:00 72 20 149/59 (89) 100 11/27/19 04:00 74 11/27/19 04:00 96.5 74 20 146/59 (88) 100 11/27/19 04:00 Mechanical Ventilator 11/27/19 04:00 35 11/27/19 03:07 76 20 35 11/27/19 03:00 74 20 136/68 (90) 100 11/27/19 02:00 71 20 146/72 (96) 100 11/27/19 01:00 72 20 144/76 (98) 100 11/27/19 00:00 Mechanical Ventilator 11/27/19 00:00 96.1 73 20 141/66 (91) 100 11/26/19 23:00 73 20 150/69 (96) 100 11/26/19 23:00 71 20 35 11/26/19 22:00 73 20 138/66 (90) 100 11/26/19 21:00 71 20 133/65 (87) 100 11/26/19 20:00 98.7 71 20 132/65 (87) 100 11/26/19 20:00 71 11/26/19 20:00 Mechanical Ventilator 11/26/19 20:00 35 11/26/19 19:30 72 20 35 11/26/19 19:00 74 20 135/66 (89) 100 11/26/19 18:00 98.7 76 21 123/60 (81) 100 11/26/19 17:00 81 17 111/58 (75) 100 11/26/19 16:00 35 11/26/19 16:00 100 20 113/56 (75) 100 11/26/19 16:00 78 11/26/19 16:00 Mechanical Ventilator 11/26/19 15:00 100 21 105/53 (70) 100 11/26/19 14:34 76 21 35 11/26/19 14:00 79 21 99/56 (70) 99 11/26/19 13:00 83 21 105/52 (69) 99 11/26/19 12:00 80 11/26/19 12:00 Mechanical Ventilator 11/26/19 12:00 35 11/26/19 12:00 99.5 90 18 104/55 (71) 97 11/26/19 11:15 95 21 35 11/26/19 11:00 93 19 110/54 (72) 96 11/26/19 10:00 87 21 120/61 (80) 98 Intake and Output 11/26/19 11/27/19 19:00 07:00 Intake Total 1440 ml 1395 ml Output Total 85 ml 60 ml Balance 1355 ml 1335 ml Free Water 300 ml 200 ml IV Total 720 ml 775 ml Tube Feeding 420 ml 420 ml Output Urine Total 85 ml 60 ml Laboratory Tests 11/27/19 04:30: White Blood Count 19.9H, Red Blood Count 2.87L, Hemoglobin 8.0L, Hematocrit 26.0L, Mean Corpuscular Volume 91, Mean Corpuscular Hemoglobin 28.0, Mean Corpuscular Hemoglobin Concent 30.9L, Red Cell Distribution Width 16.2H, Platelet Count 281, Mean Platelet Volume 6.6, Neutrophils (%) (Auto) , Lymphocytes (%) (Auto) , Monocytes (%) (Auto) , Eosinophils (%) (Auto) , Basophils (%) (Auto) , Differential Total Cells Counted 100, Neutrophils % ( Manual) 86H, Lymphocytes % (Manual) 13L, Monocytes % (Manual) 1, Eosinophils % ( Manual) 0, Basophils % (Manual) 0, Band Neutrophils 0, Platelet Estimate Adequate, Platelet Morphology Normal, Anisocytosis 1+, Sodium Level 143, Potassium Level 3.6, Chloride Level 108H, Carbon Dioxide Level 23, Anion Gap 12 , Blood Urea Nitrogen 47H, Creatinine 2.5H, Estimat Glomerular Filtration Rate 25.5, Glucose Level 129H, Uric Acid 5.5, Calcium Level 6.9L, Phosphorus Level 3.6, Magnesium Level 2.2, Total Bilirubin 0.4, Aspartate Amino Transf (AST/SGOT ) 61H, Alanine Aminotransferase (ALT/SGPT) 9L, Alkaline Phosphatase 64, C- Reactive Protein, Quantitative 2.2H, Pro-B-Type Natriuretic Peptide 7126H, Total Protein 4.2L, Albumin 1.3L, Globulin 2.9, Albumin/Globulin Ratio 0.4L Height (Feet): 6 Height (Inches): 0.00 Weight (Pounds): 178 General Appearance: lethargic EENT: normal ENT inspection Neck: normal alignment Cardiovascular: normal rate, regular rhythm Respiratory/Chest: no respiratory distress, no accessory muscle use Extremities: normal inspection Skin: normal pigmentation Juan Singh DO Nov 27, 2019 09:19
[2019-11-27] MEDS: Norepinephrine Bitartrate 8 MG in D5W 500ml 550 ML IV SCH (09:57)
--- NOTE | 2019-11-27 09:57 | Nephrology Progress Note ---
Assessment/Plan Problem List: (1) ARF (acute renal failure) (2) Hyperkalemia (3) DM (diabetes mellitus) (4) Suspected COVID-19 virus infection (5) Sepsis (6) Severe malnutrition Assessment: Severe hypoalbuminemia Assessment his 74-year-old male with multiple Multiple medical problem presents with respiratory symptoms and diarrhea Renal failure most likely prerenal azotemia secondary to dehydration Hyperkalemia on presentation also secondary to dehydration Sepsis pneumonia hypoxia UTI Anemia History of hypertension History of diabetes mellitus Suspected COVID-19 virus infection Hypoalbuminemia Plan C. difficile positive COVID-19 detected November 26: Lab reviewed. Remains full code. Remains intubated. Midodrin changed to PRN. Electrolytes acceptable. Will monitor renal parameters and urine output and dialyze as needed. November 25: Dialyzed yesterday. Lab reviewed. Remains full code. Remains intubated on ventilator. On minimal dose of pressors. 20 mEq potassium chloride IV ordered for low potassium level. November 24: Patient remains intubated. Due for dialysis today. Labs reviewed. Continues to be full code. November 23: Patient was dialyzed yesterday. Labs reviewed. Status quo. Remains full code. Will arrange for dialysis tomorrow. November 22: Patient in ICU. Intubated on ventilator. On low-dose pressors. Urine output labile. Serum creatinine rising. Patient developing acute renal failure. Need urgent dialysis treatment. Will arrange for placement of non- tunneled dialysis catheter as soon as possible. RN states that no family member or next of kin could be contacted at this time. Due to the urgency of the problem and the patient being full code will proceed with placement of dialysis catheter and dialysis treatment as soon as possible. November 21: Patient continues to do poorly. Discussed with RN. Started on Midodrin for BP support. Nephro feeding started. Phosphorus binders started. IV calcium ordered. Continue to monitor renal parameters and urine output. Continue per consultants. Patient remains full code. Per orders. November 20: Serum creatinine continuing to rise. Remains of 100 cc an hour IV fluid. Urine output remains low. Blood pressure also borderline low, on pressors. Continue per consultants. Continue to monitor renal parameters and urine output. Continue to avoid nephrotoxic's. Further deterioration of renal function may lead to dialysis treatment. Will discuss with PMD. November 19: Serum creatinine rising. Urine output decreasing. Will change to IV, D5 normal saline. Will give albumin bolus followed by Lasix 40 mg IV push. Continue to monitor renal parameters and urine output. Continue to avoid nephrotoxic medications as possible. Today's vancomycin level was 22. November 18: Serum creatinine rising. Continues to be full code. Continues to be intubated on ventilator. Remains on IV fluids. Vancomycin levels per pharmacy. Prognosis poor due to sepsis. November 17: Intubated on ventilator in ICU. Will continue half-normal saline 100 cc an hour. Continue per pulmonary and ID. Prognosis poor. Continue to monitor renal parameters. Hydrate with half-normal saline, serum creatinine now at its lowest today. monitor electrolytes Will change the feeding to Nepro and monitor her potassium and other electrolytes Continue per ID Keep the blood pressure and blood sugar in check Monitor renal parameters Previously: Urine studies Monitor intake and output Cultures including stool for C. difficile Per orders Patient's CODE STATUS is full Subjective ROS Limited/Unobtainable: Yes Objective Objective Last 24 Hour Vital Signs Date Time Temp Pulse Resp B/P (MAP) Pulse Ox O2 Delivery O2 Flow Rate FiO2 11/27/19 07:05 73 20 35 11/27/19 07:00 81 14 166/81 (109) 100 11/27/19 06:00 71 20 143/61 (88) 100 11/27/19 05:00 72 20 149/59 (89) 100 11/27/19 04:00 74 11/27/19 04:00 96.5 74 20 146/59 (88) 100 11/27/19 04:00 Mechanical Ventilator 11/27/19 04:00 35 11/27/19 03:07 76 20 35 11/27/19 03:00 74 20 136/68 (90) 100 11/27/19 02:00 71 20 146/72 (96) 100 11/27/19 01:00 72 20 144/76 (98) 100 11/27/19 00:00 Mechanical Ventilator 11/27/19 00:00 96.1 73 20 141/66 (91) 100 11/26/19 23:00 73 20 150/69 (96) 100 11/26/19 23:00 71 20 35 11/26/19 22:00 73 20 138/66 (90) 100 11/26/19 21:00 71 20 133/65 (87) 100 6/13/20 20:00 98.7 71 20 132/65 (87) 100 11/26/19 20:00 71 11/26/19 20:00 Mechanical Ventilator 11/26/19 20:00 35 11/26/19 19:30 72 20 35 11/26/19 19:00 74 20 135/66 (89) 100 11/26/19 18:00 98.7 76 21 123/60 (81) 100 11/26/19 17:00 81 17 111/58 (75) 100 11/26/19 16:00 35 11/26/19 16:00 100 20 113/56 (75) 100 11/26/19 16:00 78 11/26/19 16:00 Mechanical Ventilator 11/26/19 15:00 100 21 105/53 (70) 100 11/26/19 14:34 76 21 35 11/26/19 14:00 79 21 99/56 (70) 99 11/26/19 13:00 83 21 105/52 (69) 99 11/26/19 12:00 80 11/26/19 12:00 Mechanical Ventilator 11/26/19 12:00 35 11/26/19 12:00 99.5 90 18 104/55 (71) 97 11/26/19 11:15 95 21 35 11/26/19 11:00 93 19 110/54 (72) 96 11/26/19 10:00 87 21 120/61 (80) 98 Intake and Output 11/26/19 11/27/19 19:00 07:00 Intake Total 1440 ml 1395 ml Output Total 85 ml 60 ml Balance 1355 ml 1335 ml Free Water 300 ml 200 ml IV Total 720 ml 775 ml Tube Feeding 420 ml 420 ml Output Urine Total 85 ml 60 ml Laboratory Tests 11/27/19 04:30: White Blood Count 19.9H, Red Blood Count 2.87L, Hemoglobin 8.0L, Hematocrit 26.0L, Mean Corpuscular Volume 91, Mean Corpuscular Hemoglobin 28.0, Mean Corpuscular Hemoglobin Concent 30.9L, Red Cell Distribution Width 16.2H, Platelet Count 281, Mean Platelet Volume 6.6, Neutrophils (%) (Auto) , Lymphocytes (%) (Auto) , Monocytes (%) (Auto) , Eosinophils (%) (Auto) , Basophils (%) (Auto) , Differential Total Cells Counted 100, Neutrophils % ( Manual) 86H, Lymphocytes % (Manual) 13L, Monocytes % (Manual) 1, Eosinophils % ( Manual) 0, Basophils % (Manual) 0, Band Neutrophils 0, Platelet Estimate Adequate, Platelet Morphology Normal, Anisocytosis 1+, Sodium Level 143, Potassium Level 3.6, Chloride Level 108H, Carbon Dioxide Level 23, Anion Gap 12 , Blood Urea Nitrogen 47H, Creatinine 2.5H, Estimat Glomerular Filtration Rate 25.5, Glucose Level 129H, Uric Acid 5.5, Calcium Level 6.9L, Phosphorus Level 3.6, Magnesium Level 2.2, Total Bilirubin 0.4, Aspartate Amino Transf (AST/SGOT ) 61H, Alanine Aminotransferase (ALT/SGPT) 9L, Alkaline Phosphatase 64, C- Reactive Protein, Quantitative 2.2H, Pro-B-Type Natriuretic Peptide 7126H, Total Protein 4.2L, Albumin 1.3L, Globulin 2.9, Albumin/Globulin Ratio 0.4L Height (Feet): 6 Height (Inches): 0.00 Weight (Pounds): 178 General Appearance: no apparent distress EENT: other - Intubated on ventilator Cardiovascular: tachycardia Respiratory/Chest: decreased breath sounds Abdomen: soft, other - PEG Objective No other change Ricardo Choudhary MD Nov 27, 2019 09:57
[2019-11-27] MEDS ORDERED: Midodrine 10mg tab ORAL PRN (10:00)
--- NOTE | 2019-11-27 10:32 | Surgery Progress Note ---
Surgery Progress Note Subjective Additional Comments off pressors fi02 35% peep 5 Objective Last 24 Hour Vital Signs Date Time Temp Pulse Resp B/P (MAP) Pulse Ox O2 Delivery O2 Flow Rate FiO2 11/27/19 10:00 72 20 135/64 (87) 100 11/27/19 09:57 137/57 11/27/19 09:00 73 20 137/57 (83) 100 11/27/19 08:00 97.9 72 20 133/56 (81) 100 11/27/19 08:00 35 11/27/19 07:05 73 20 35 11/27/19 07:00 81 14 166/81 (109) 100 11/27/19 06:00 71 20 143/61 (88) 100 11/27/19 05:00 72 20 149/59 (89) 100 11/27/19 04:00 74 11/27/19 04:00 96.5 74 20 146/59 (88) 100 11/27/19 04:00 Mechanical Ventilator 11/27/19 04:00 35 11/27/19 03:07 76 20 35 11/27/19 03:00 74 20 136/68 (90) 100 11/27/19 02:00 71 20 146/72 (96) 100 11/27/19 01:00 72 20 144/76 (98) 100 11/27/19 00:00 Mechanical Ventilator 11/27/19 00:00 96.1 73 20 141/66 (91) 100 11/26/19 23:00 73 20 150/69 (96) 100 11/26/19 23:00 71 20 35 11/26/19 22:00 73 20 138/66 (90) 100 11/26/19 21:00 71 20 133/65 (87) 100 11/26/19 20:00 98.7 71 20 132/65 (87) 100 11/26/19 20:00 71 11/26/19 20:00 Mechanical Ventilator 11/26/19 20:00 35 11/26/19 19:30 72 20 35 11/26/19 19:00 74 20 135/66 (89) 100 11/26/19 18:00 98.7 76 21 123/60 (81) 100 11/26/19 17:00 81 17 111/58 (75) 100 11/26/19 16:00 35 11/26/19 16:00 100 20 113/56 (75) 100 11/26/19 16:00 78 11/26/19 16:00 Mechanical Ventilator 11/26/19 15:00 100 21 105/53 (70) 100 11/26/19 14:34 76 21 35 11/26/19 14:00 79 21 99/56 (70) 99 11/26/19 13:00 83 21 105/52 (69) 99 11/26/19 12:00 80 11/26/19 12:00 Mechanical Ventilator 11/26/19 12:00 35 11/26/19 12:00 99.5 90 18 104/55 (71) 97 11/26/19 11:15 95 21 35 11/26/19 11:00 93 19 110/54 (72) 96 I&O Intake and Output 11/26/19 11/27/19 19:00 07:00 Intake Total 1440 ml 1395 ml Output Total 85 ml 60 ml Balance 1355 ml 1335 ml Free Water 300 ml 200 ml IV Total 720 ml 775 ml Tube Feeding 420 ml 420 ml Output Urine Total 85 ml 60 ml Dressing: other Wound: other Drains: other Cardiovascular: RSR, other Respiratory: decreased breath sounds Abdomen: soft, present bowel sounds Extremities: no cyanosis Laboratory Tests Test 11/27/19 04:30 White Blood Count 19.9 K/UL (4.8-10.8) H Red Blood Count 2.87 M/UL (4.70-6.10) L Hemoglobin 8.0 G/DL (14.2-18.0) L Hematocrit 26.0 % (42.0-52.0) L Mean Corpuscular Volume 91 FL (80-99) Mean Corpuscular Hemoglobin 28.0 PG (27.0-31.0) Mean Corpuscular Hemoglobin Concent 30.9 G/DL (32.0-36.0) L Red Cell Distribution Width 16.2 % (11.6-14.8) H Platelet Count 281 K/UL (150-450) Mean Platelet Volume 6.6 FL (6.5-10.1) Neutrophils (%) (Auto) % (45.0-75.0) Lymphocytes (%) (Auto) % (20.0-45.0) Monocytes (%) (Auto) % (1.0-10.0) Eosinophils (%) (Auto) % (0.0-3.0) Basophils (%) (Auto) % (0.0-2.0) Differential Total Cells Counted 100 Neutrophils % (Manual) 86 % (45-75) H Lymphocytes % (Manual) 13 % (20-45) L Monocytes % (Manual) 1 % (1-10) Eosinophils % (Manual) 0 % (0-3) Basophils % (Manual) 0 % (0-2) Band Neutrophils 0 % (0-8) Platelet Estimate Adequate Platelet Morphology Normal Anisocytosis 1+ Sodium Level 143 MMOL/L (136-145) Potassium Level 3.6 MMOL/L (3.5-5.1) Chloride Level 108 MMOL/L (98-107) H Carbon Dioxide Level 23 MMOL/L (21-32) Anion Gap 12 mmol/L (5-15) Blood Urea Nitrogen 47 mg/dL (7-18) H Creatinine 2.5 MG/DL (0.55-1.30) H Estimat Glomerular Filtration Rate 25.5 mL/min (>60) Glucose Level 129 MG/DL (74-106) H Uric Acid 5.5 MG/DL (2.6-7.2) Calcium Level 6.9 MG/DL (8.5-10.1) L Phosphorus Level 3.6 MG/DL (2.5-4.9) Magnesium Level 2.2 MG/DL (1.8-2.4) Total Bilirubin 0.4 MG/DL (0.2-1.0) Aspartate Amino Transf (AST/SGOT) 61 U/L (15-37) H Alanine Aminotransferase (ALT/SGPT) 9 U/L (12-78) L Alkaline Phosphatase 64 U/L (46-116) C-Reactive Protein, Quantitative 2.2 mg/dL (0.00-0.90) H Pro-B-Type Natriuretic Peptide 7126 pg/mL (0-125) H Total Protein 4.2 G/DL (6.4-8.2) L Albumin 1.3 G/DL (3.4-5.0) L Globulin 2.9 g/dL Albumin/Globulin Ratio 0.4 (1.0-2.7) L Plan Problems: (1) Decubitus skin ulcer Assessment & Plan: Pt presented on admission with large sacral wound. Base of wound with areas that area purple and indurated sacrococcygeal,L sacrum/L gluteus,Scattered wounds with maceration L gluteus, one wound R sacrum with Biofilm, Surrounding non-blanching erythema entire buttocks. Small dry scabbed area noted to lumbar area. Unstageable Pressure Injury L heel. Base of wound is necrotic with surrounding non-blanching erythema. Tx.plan: Apply Moisture Barrier Paste to Buttocks. Cover Sacrum, R and L gluteal cheeks with Optifoam drsgs. Change every 3 days and prn. Apply Betadine to L heel. Cover with Optifoam drsg. Change every 3 days and prn. Reposition at least every 2hours or as tolerated. Place Pillow between knees. Off-load heels with Pillow. APM/BRUNILDA Mattress overlay. DAILY ESTIMATED NEEDS: Needs based on wt loss, underweight, wound/ 59kg 30-35 kcals/kg 6340-5966 total kcals 1.25-2 g protein/kg 74-118 g total protein 25-30 mL/kg 6620-3104 total fluid mLs NUTRITION DIAGNOSIS: * Increased kcal/prot intake needs R/T wound healing, suspected recent significant wt loss as evidenced by admitted w/ wounds @ lt posterior heel, R lower back, sacrum as per photos, pending eval, suspected significant wt loss of 40lbs/ 23.7% in <5 months, currently @ 81% IBW. . * Swallowing difficulty R/T dysphagia, h/o CVA as evidenced by PEG dependent. CURRENT TF:Glucerna 1.2 @65ml/hr x24 hrs ENTERAL NUTRITION RECOMMENDATIONS: NEPRO @45ml/hr x24 hrs to provide 1080ml, 1944 kcal, 87g pro, 785ml free H2O - Rec TF change for lower K content (1145mg in Nepro @45 vs 3151mg in Glucerna 1.2 @65) - Start at 25ml/hr advance as tolerated 10ml/hr q4-6 hrs - HOB over 30 degrees - Increased H20 flush to 200ml q4 hrs ADDITIONAL RECOMMENDATIONS: 1) Calibrated bedscale wt -> per SNF: HT=59" and UG=178spd (10/20/19) 2) Wound healing: Add Vit C 500mg QD/ or dosing per nephro Add Osbaldo BID via PEG w/ TF order 3) Monitor lytes: monitor K trend, need for renal TF (K 5.3, 5.5) 4) NISS w/ TF (h/o DM) 5) Monitor for diarrhea, rec probiotics (2) Sepsis Assessment & Plan: 74-year-old male multi-medical comorbidities admitted for respiratory deficiency currently tachypneic, leukocytosis, malnutrition, hypoalbuminemia. Complete physical exam performed identified areas of concerned given patient's comorbidities current condition high risk for deteriorationNo active infection identified from patient's wounds and likely respiratory nature. Chest x-ray reviewed. No acute surgical intervention planned at this time Preventive measures IV antibiotics per infectious disease Okay for feeding once stable respiratory Appreciate Pulm input c diff positive on vanco blood cx noted worsening leukocytosis ID abx noted heme input noted There are increasing basilar opacities on the left noted. The heart size is normal. The pleural spaces are clear. 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
--- NOTE | 2019-11-27 14:00 | Hematology/Onc Progress Note ---
Assessment/Plan Assessment/Plan Assessment and Recs # Leukocytosis/elevated white blood cell count, unspecified likely related to underlying stress reaction, smoking v more likely infection, in this case with pna and COVID19++++++++ --> have reviewed peripheral smear and bandemia/neutrophilia noted --> continue antibiotics if they have been started by ID team --> monitor for resolution --> wbc 35k-->31.2-->25-->27.4 -->25-->20.7-->18.6 -->27-->19.7 -->20 --> abx/antivral: remdesivir/vanc/cefepime-->vanc/flagyl/monique-->linezolid/monique-- >cefepime/zyvox/vanc # Thrombocytosis - if plt count >400k, most usually is a reactive process and will improve once exacerbant removed as well --> in this case due to underlying infection --> plt trend 646k-->672 -->547-->372-->345-->149 -->246 # Anemia of chronic disease due to underlying chronic medical issues, multifactorial v Gi bleed --> Anemia workup has been ordered, rule out gi bleed -> ferritin 1339 --> No evidence of hemolysis is noted, peripheral smear has been reviewed. --> Hgb goal >7. Transfuse prn. --> Epogen or iron at this time is not particularly indicated --> Medications have been reviewed --> low threshold for gi evaluation in case has occult + --> bone marrow biopsy is not indicated given the other more likely causes --> hgb 9.5-->9.8->8.8-->8.6-->7.5-->9.5-->7.5 -->9.1-->8 --> 1 unit prbc 11/20 --> ddimer remains elevated currently # Acute hypoxic resp failure- on NRB 15L- 2ry to COVID19 --> per id and pulm recs --> breathing treatments and rep cxr --> 11/15 cxr: New/increased infiltrates at the left lateral lung base # UTI c/w bacteremia --> abx per id # Cdiff colitis --> abx # MONICA, improving # Deep tissue injury (sacrum, L heel) # HTN # Dm2 # MDD # Dysphagia s/p GT # malnutrition # decubitus ulcer # non verbal # 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 Greatly appreciate consultation. Subjective Constitutional: Denies: no symptoms, chills, fever, malaise, weakness, other HEENT: Denies: no symptoms, eye pain, blurred vision, tearing, double vision, ear pain, ear discharge, nose pain, nose congestion, throat pain, throat swelling, mouth pain, mouth swelling, other Cardiovascular: Denies: no symptoms, chest pain, edema, irregular heart rate, lightheadedness, palpitations, syncope, other Respiratory: Denies: no symptoms, cough, shortness of breath, SOB with excertion, SOB at rest, sputum, wheezing, other Gastrointestinal/Abdominal: Denies: no symptoms, abdomen distended, abdominal pain, black stools, tarry stools, blood in stool, constipated, diarrhea, difficulty swallowing, nausea, poor appetite, poor fluid intake, rectal bleeding , vomiting, other Genitourinary: Denies: no symptoms, burning, discharge, frequency, flank pain, hematuria, incontinence, pain, urgency, other Neurologic/Psychiatric: Denies: no symptoms, anxiety, depressed, emotional problems, headache, numbness, paresthesia, pre-existing deficit, seizure, tingling, tremors, weakness, other Endocrine: Denies: no symptoms, excessive sweating, flushing, intolerance to cold, intolerance to heat, increased hunger, increased thirst, increased urine, unexplained weight gain, unexplained weight loss, other Allergies: Coded Allergies: No Known Allergies (Unverified , 09/16/19) All Systems: reviewed and negative except above Subjective 11/15 tele, no acute events, cxr and labs reviewed, nrb 15l, remdesivir 11/16 remains on iso, breathing is improved, no night sweats 11/17 remains with fever, cooling blankets, labs noted, no bleed hgb 8.8 11/19 icu, no acute events, vent, levo gtt, meds and labs reviewed 11/20 labs noted, no bleeding, in icu, hgb 7.5, to get one unit prbc, wbc elev 25 11/21 non verbal, s/p blood, hgb improved to 9.5, vent, iv abx 11/22 icu, no new changes, labs reviewed, levo gtt 11/23 labs are noted, no bleeding, in icu, on levo, wbc 27, hgb 9 11/24 nonverbal, no new changes, afebrile 11/25 nonverbal, in icu, on vent, wbc 20, hgb 8, no bleeding Objective Objective Current Medications Medications (Trade) Dose Ordered Sig/Leonor Route PRN Reason Start Time Stop Time Status Last Admin Dose Admin Acetaminophen (Tylenol) 650 mg Q4H PRN GT fever 11/18/19 03:00 12/11/19 02:59 11/19/19 20:04 Allopurinol (allopurinoL) 300 mg DAILY GT 11/21/19 09:00 12/21/19 08:59 11/27/19 08:35 Calcium Gluconate 1 gm/Sodium Chloride 120 ml @ 240 mls/hr Q12HR IVPB 11/22/19 09:00 12/22/19 08:59 11/27/19 08:35 Cefepime HCl 2 gm/ Dextrose 55 ml @ 110 mls/hr Q24H IVPB 11/27/19 21:00 12/04/19 20:59 Chlorhexidine Gluconate (Danielle-Hex 2%) 1 applic DAILY@2000 TOPIC 11/18/19 20:00 02/16/20 19:59 11/26/19 19:50 Dextrose/Sodium Chloride 1,000 ml @ 50 mls/hr Q20H IV 11/22/19 10:15 12/20/19 10:14 11/26/19 20:34 Heparin Sodium (Porcine) (Heparin 5000 units/ml) 5,000 units EVERY 12 HOURS SUBQ 11/18/19 09:00 12/26/19 08:59 11/27/19 08:37 Midodrine (Pro-Amatine) 10 mg Q8HR PRN ORAL BP below 100 systolic 11/27/19 10:00 02/20/20 13:59 Norepinephrine Bitartrate 8 mg/ Dextrose 558 ml @ 0 mls/hr Q24H IV 11/18/19 10:00 12/18/19 09:59 11/23/19 22:22 Ondansetron HCl (Zofran) 4 mg Q6H PRN IVP Nausea & Vomiting 11/18/19 03:00 12/11/19 08:59 Pantoprazole (Protonix) 40 mg DAILY IV 11/19/19 09:00 12/19/19 08:59 11/27/19 08:35 Sevelamer Carbonate (Renvela) 800 mg Q12HR NG 11/27/19 21:00 02/20/20 07:59 Last 24 Hour Vital Signs Date Time Temp Pulse Resp B/P (MAP) Pulse Ox O2 Delivery O2 Flow Rate FiO2 11/27/19 13:00 77 20 136/64 (88) 100 11/27/19 12:00 98.2 77 20 128/70 (89) 100 11/27/19 12:00 35 11/27/19 12:00 76 11/27/19 12:00 Mechanical Ventilator 11/27/19 11:01 74 20 35 11/27/19 11:00 76 20 133/68 (89) 100 11/27/19 10:00 72 20 135/64 (87) 100 11/27/19 09:57 137/57 11/27/19 09:00 73 20 137/57 (83) 100 11/27/19 08:00 97.9 72 20 133/56 (81) 100 11/27/19 08:00 Mechanical Ventilator 11/27/19 08:00 35 11/27/19 08:00 72 11/27/19 07:05 73 20 35 11/27/19 07:00 81 14 166/81 (109) 100 11/27/19 06:00 71 20 143/61 (88) 100 11/27/19 05:00 72 20 149/59 (89) 100 11/27/19 04:00 74 11/27/19 04:00 96.5 74 20 146/59 (88) 100 11/27/19 04:00 Mechanical Ventilator 11/27/19 04:00 35 11/27/19 03:07 76 20 35 11/27/19 03:00 74 20 136/68 (90) 100 11/27/19 02:00 71 20 146/72 (96) 100 6/14/20 01:00 72 20 144/76 (98) 100 11/27/19 00:00 Mechanical Ventilator 11/27/19 00:00 96.1 73 20 141/66 (91) 100 11/26/19 23:00 73 20 150/69 (96) 100 11/26/19 23:00 71 20 35 11/26/19 22:00 73 20 138/66 (90) 100 11/26/19 21:00 71 20 133/65 (87) 100 11/26/19 20:00 98.7 71 20 132/65 (87) 100 11/26/19 20:00 71 11/26/19 20:00 Mechanical Ventilator 11/26/19 20:00 35 11/26/19 19:30 72 20 35 11/26/19 19:00 74 20 135/66 (89) 100 11/26/19 18:00 98.7 76 21 123/60 (81) 100 11/26/19 17:00 81 17 111/58 (75) 100 11/26/19 16:00 35 11/26/19 16:00 100 20 113/56 (75) 100 11/26/19 16:00 78 11/26/19 16:00 Mechanical Ventilator 11/26/19 15:00 100 21 105/53 (70) 100 11/26/19 14:34 76 21 35 11/26/19 14:00 79 21 99/56 (70) 99 11/26/19 13:00 83 21 105/52 (69) 99 11/26/19 12:00 80 11/26/19 12:00 Mechanical Ventilator 11/26/19 12:00 35 11/26/19 12:00 99.5 90 18 104/55 (71) 97 11/26/19 11:15 95 21 35 11/26/19 11:00 93 19 110/54 (72) 96 11/26/19 10:00 87 21 120/61 (80) 98 11/26/19 09:00 84 22 124/61 (82) 99 11/26/19 08:00 99.4 82 21 124/61 (82) 99 11/26/19 08:00 35 11/26/19 08:00 Mechanical Ventilator 11/26/19 07:59 86 11/26/19 07:06 82 21 35 11/26/19 07:00 78 20 135/57 (83) 99 11/26/19 06:00 83 20 140/60 (86) 99 11/26/19 05:00 77 20 143/62 (89) 99 11/26/19 04:00 Mechanical Ventilator 11/26/19 04:00 35 11/26/19 04:00 76 11/26/19 04:00 77 20 137/59 (85) 98 11/26/19 03:08 73 20 35 11/26/19 03:00 73 22 146/64 (91) 100 11/26/19 02:00 74 20 135/57 (83) 99 11/26/19 01:00 79 20 143/65 (91) 99 11/26/19 00:00 Mechanical Ventilator 11/26/19 00:00 78 20 139/61 (87) 98 11/26/19 00:00 35 11/26/19 00:00 75 11/25/19 23:09 76 20 35 11/25/19 23:00 77 20 139/65 (89) 99 11/25/19 22:00 81 20 144/71 (95) 98 11/25/19 21:00 75 20 132/60 (84) 99 11/25/19 20:00 35 11/25/19 20:00 76 11/25/19 20:00 97.8 75 20 133/63 (86) 97 11/25/19 20:00 Mechanical Ventilator 11/25/19 19:11 74 20 35 11/25/19 19:00 71 20 143/67 (92) 100 11/25/19 19:00 71 20 143/67 (92) 100 11/25/19 18:20 75 20 135/63 (87) 99 11/25/19 18:00 75 20 131/57 (81) 100 11/25/19 17:00 82 20 126/62 (83) 99 11/25/19 16:40 84 21 131/63 (85) 97 11/25/19 16:30 83 21 119/58 (78) 95 11/25/19 16:15 95 23 107/59 (75) 91 11/25/19 16:00 97.7 83 22 109/54 (72) 98 11/25/19 16:00 35 11/25/19 16:00 95 11/25/19 16:00 Mechanical Ventilator 11/25/19 15:15 90 21 144/72 (96) 99 11/25/19 15:00 79 23 114/57 (76) 99 11/25/19 14:51 89 20 35 11/25/19 14:15 73 23 119/62 (81) 98 11/25/19 14:00 78 22 110/62 (78) 98 Intake and Output 11/26/19 11/27/19 19:00 07:00 Intake Total 1440 ml 1395 ml Output Total 85 ml 60 ml Balance 1355 ml 1335 ml Free Water 300 ml 200 ml IV Total 720 ml 775 ml Tube Feeding 420 ml 420 ml Output Urine Total 85 ml 60 ml Labs Test 11/25/19 04:30 11/25/19 08:07 11/26/19 04:40 11/27/19 04:30 White Blood Count 19.7 K/UL (4.8-10.8) 15.9 K/UL (4.8-10.8) 19.9 K/UL (4.8-10.8) Red Blood Count 2.76 M/UL (4.70-6.10) 2.76 M/UL (4.70-6.10) 2.87 M/UL (4.70-6.10) Hemoglobin 8.0 G/DL (14.2-18.0) 7.8 G/DL (14.2-18.0) 8.0 G/DL (14.2-18.0) Hematocrit 24.1 % (42.0-52.0) 24.3 % (42.0-52.0) 26.0 % (42.0-52.0) Mean Corpuscular Volume 87 FL (80-99) 88 FL (80-99) 91 FL (80-99) Mean Corpuscular Hemoglobin 28.9 PG (27.0-31.0) 28.2 PG (27.0-31.0) 28.0 PG (27.0-31.0) Mean Corpuscular Hemoglobin Concent 33.0 G/DL (32.0-36.0) 32.1 G/DL (32.0-36.0) 30.9 G/DL (32.0-36.0) Red Cell Distribution Width 14.1 % (11.6-14.8) 14.3 % (11.6-14.8) 16.2 % (11.6-14.8) Platelet Count 246 K/UL (150-450) 256 K/UL (150-450) 281 K/UL (150-450) Mean Platelet Volume 7.0 FL (6.5-10.1) 6.9 FL (6.5-10.1) 6.6 FL (6.5-10.1) Neutrophils (%) (Auto) % (45.0-75.0) % (45.0-75.0) % (45.0-75.0) Lymphocytes (%) (Auto) % (20.0-45.0) % (20.0-45.0) % (20.0-45.0) Monocytes (%) (Auto) % (1.0-10.0) % (1.0-10.0) % (1.0-10.0) Eosinophils (%) (Auto) % (0.0-3.0) % (0.0-3.0) % (0.0-3.0) Basophils (%) (Auto) % (0.0-2.0) % (0.0-2.0) % (0.0-2.0) Differential Total Cells Counted 100 100 100 Neutrophils % (Manual) 89 % (45-75) 81 % (45-75) 86 % (45-75) Lymphocytes % (Manual) 7 % (20-45) 16 % (20-45) 13 % (20-45) Monocytes % (Manual) 3 % (1-10) 3 % (1-10) 1 % (1-10) Eosinophils % (Manual) 1 % (0-3) 0 % (0-3) 0 % (0-3) Basophils % (Manual) 0 % (0-2) 0 % (0-2) 0 % (0-2) Band Neutrophils 0 % (0-8) 0 % (0-8) 0 % (0-8) Platelet Estimate Adequate Adequate Adequate Platelet Morphology Normal Normal Normal Hypochromasia 2+ 1+ Anisocytosis 1+ 1+ 1+ Spherocytes 2+ Sodium Level 137 MMOL/L (136-145) 141 MMOL/L (136-145) 143 MMOL/L (136-145) Potassium Level 3.6 MMOL/L (3.5-5.1) 3.2 MMOL/L (3.5-5.1) 3.6 MMOL/L (3.5-5.1) Chloride Level 106 MMOL/L (98-107) 106 MMOL/L (98-107) 108 MMOL/L (98-107) Carbon Dioxide Level 17 MMOL/L (21-32) 24 MMOL/L (21-32) 23 MMOL/L (21-32) Anion Gap 14 mmol/L (5-15) 11 mmol/L (5-15) 12 mmol/L (5-15) Blood Urea Nitrogen 54 mg/dL (7-18) 37 mg/dL (7-18) 47 mg/dL (7-18) Creatinine 3.3 MG/DL (0.55-1.30) 2.4 MG/DL (0.55-1.30) 2.5 MG/DL (0.55-1.30) Estimat Glomerular Filtration Rate 18.5 mL/min (>60) 26.7 mL/min (>60) 25.5 mL/min (>60) Glucose Level 138 MG/DL (74-106) 122 MG/DL (74-106) 129 MG/DL (74-106) Uric Acid 8.2 MG/DL (2.6-7.2) 5.4 MG/DL (2.6-7.2) 5.5 MG/DL (2.6-7.2) Calcium Level 6.7 MG/DL (8.5-10.1) 7.2 MG/DL (8.5-10.1) 6.9 MG/DL (8.5-10.1) Phosphorus Level 5.6 MG/DL (2.5-4.9) 3.4 MG/DL (2.5-4.9) 3.6 MG/DL (2.5-4.9) Magnesium Level 2.0 MG/DL (1.8-2.4) 2.1 MG/DL (1.8-2.4) 2.2 MG/DL (1.8-2.4) Total Bilirubin 0.3 MG/DL (0.2-1.0) 0.4 MG/DL (0.2-1.0) 0.4 MG/DL (0.2-1.0) Aspartate Amino Transf (AST/SGOT) 54 U/L (15-37) 65 U/L (15-37) 61 U/L (15-37) Alanine Aminotransferase (ALT/SGPT) < 6 U/L (12-78) 11 U/L (12-78) 9 U/L (12-78) Alkaline Phosphatase 64 U/L (46-116) 61 U/L (46-116) 64 U/L (46-116) C-Reactive Protein, Quantitative 4.1 mg/dL (0.00-0.90) 3.4 mg/dL (0.00-0.90) 2.2 mg/dL (0.00-0.90) Pro-B-Type Natriuretic Peptide 3757 pg/mL (0-125) 4247 pg/mL (0-125) 7126 pg/mL (0-125) Total Protein 4.5 G/DL (6.4-8.2) 4.7 G/DL (6.4-8.2) 4.2 G/DL (6.4-8.2) Albumin 1.2 G/DL (3.4-5.0) 1.4 G/DL (3.4-5.0) 1.3 G/DL (3.4-5.0) Globulin 3.3 g/dL 3.3 g/dL 2.9 g/dL Albumin/Globulin Ratio 0.4 (1.0-2.7) 0.4 (1.0-2.7) 0.4 (1.0-2.7) Amylase Level 269 U/L (25-115) Lipase 769 U/L (73-393) Arterial Blood pH 7.288 (7.350-7.450) Arterial Blood Partial Pressure CO2 32.9 mmHg (35.0-45.0) Arterial Blood Partial Pressure O2 102.4 mmHg (75.0-100.0) Arterial Blood HCO3 15.4 mmol/L (22.0-26.0) Arterial Blood Oxygen Saturation 97.0 % (95-100) Arterial Blood Base Excess -10.2 (-2-2) Michael Test Positive Height (Feet): 6 Height (Inches): 0.00 Weight (Pounds): 178 Objective PE General: alert, chronically Ill Heent: nc, at Neck: full range of motion, supple, no meningismus Respiratory: chest non-tender, decreased breath sounds, crackles, vent++ Cardiovascular: no murmur, tachycardia Gastrointestinal: normal bowel sounds, non tender,+peg Musculoskeletal: back normal, normal range of motion, gait/station normal Neurologic: no pronator Deng Flowers MD Nov 27, 2019 14:00
[2019-11-27] MEDS: Dyna-Hex 2% Top Sol 2oz TOPIC SCH (20:36)
[2019-11-27] MEDS: Cefepime 2gm in D5W 55ml IVPB SCH (20:37)
[2019-11-27] MEDS ORDERED: Cefepime HCl 1 GM in D5W 55 ML IVPB SCH (21:00)
--- NOTE | 2019-11-27 21:21 | Cardiology Progress Note ---
Assessment/Plan Assessment/Plan COVD pneumonia coma, encephalopathy, anoxic plus vascular sinus tachycardia is a reflection of his septic status Subjective Subjective The patient is comatose, on vent Objective Last 24 Hour Vital Signs Date Time Temp Pulse Resp B/P (MAP) Pulse Ox O2 Delivery O2 Flow Rate FiO2 11/27/19 20:00 35 11/27/19 20:00 Mechanical Ventilator 11/27/19 20:00 98.0 76 19 122/62 (82) 100 11/27/19 19:30 79 20 35 11/27/19 19:00 79 20 121/61 (81) 100 11/27/19 18:00 86 20 139/112 (121) 100 11/27/19 17:00 77 20 131/64 (86) 100 11/27/19 16:00 35 11/27/19 16:00 Mechanical Ventilator 11/27/19 16:00 78 11/27/19 16:00 97.5 75 20 130/64 (86) 100 11/27/19 15:16 76 21 35 11/27/19 15:00 76 20 134/66 (88) 100 11/27/19 14:00 76 20 136/63 (87) 100 11/27/19 13:00 77 20 136/64 (88) 100 11/27/19 12:00 98.2 77 20 128/70 (89) 100 11/27/19 12:00 35 11/27/19 12:00 76 11/27/19 12:00 Mechanical Ventilator 11/27/19 11:01 74 20 35 11/27/19 11:00 76 20 133/68 (89) 100 11/27/19 10:00 72 20 135/64 (87) 100 11/27/19 09:57 137/57 11/27/19 09:00 73 20 137/57 (83) 100 11/27/19 08:00 97.9 72 20 133/56 (81) 100 11/27/19 08:00 Mechanical Ventilator 11/27/19 08:00 35 11/27/19 08:00 72 11/27/19 07:05 73 20 35 11/27/19 07:00 81 14 166/81 (109) 100 11/27/19 06:00 71 20 143/61 (88) 100 11/27/19 05:00 72 20 149/59 (89) 100 11/27/19 04:00 74 11/27/19 04:00 96.5 74 20 146/59 (88) 100 11/27/19 04:00 Mechanical Ventilator 11/27/19 04:00 35 11/27/19 03:07 76 20 35 11/27/19 03:00 74 20 136/68 (90) 100 11/27/19 02:00 71 20 146/72 (96) 100 11/27/19 01:00 72 20 144/76 (98) 100 11/27/19 00:00 Mechanical Ventilator 11/27/19 00:00 96.1 73 20 141/66 (91) 100 11/26/19 23:00 73 20 150/69 (96) 100 11/26/19 23:00 71 20 35 11/26/19 22:00 73 20 138/66 (90) 100 General Appearance: on vent EENT: PERRL/EOMI Neck: JVD Rhythm: ST Cardiovascular: tachycardia Respiratory/Chest: crackles/rales Abdomen: hypoactive bowel sounds Intake and Output 11/26/19 11/27/19 19:00 07:00 Intake Total 1440 ml 1395 ml Output Total 85 ml 60 ml Balance 1355 ml 1335 ml Free Water 300 ml 200 ml IV Total 720 ml 775 ml Tube Feeding 420 ml 420 ml Output Urine Total 85 ml 60 ml Laboratory Tests Test 11/27/19 04:30 White Blood Count 19.9 K/UL (4.8-10.8) H Red Blood Count 2.87 M/UL (4.70-6.10) L Hemoglobin 8.0 G/DL (14.2-18.0) L Hematocrit 26.0 % (42.0-52.0) L Mean Corpuscular Volume 91 FL (80-99) Mean Corpuscular Hemoglobin 28.0 PG (27.0-31.0) Mean Corpuscular Hemoglobin Concent 30.9 G/DL (32.0-36.0) L Red Cell Distribution Width 16.2 % (11.6-14.8) H Platelet Count 281 K/UL (150-450) Mean Platelet Volume 6.6 FL (6.5-10.1) Neutrophils (%) (Auto) % (45.0-75.0) Lymphocytes (%) (Auto) % (20.0-45.0) Monocytes (%) (Auto) % (1.0-10.0) Eosinophils (%) (Auto) % (0.0-3.0) Basophils (%) (Auto) % (0.0-2.0) Differential Total Cells Counted 100 Neutrophils % (Manual) 86 % (45-75) H Lymphocytes % (Manual) 13 % (20-45) L Monocytes % (Manual) 1 % (1-10) Eosinophils % (Manual) 0 % (0-3) Basophils % (Manual) 0 % (0-2) Band Neutrophils 0 % (0-8) Platelet Estimate Adequate Platelet Morphology Normal Anisocytosis 1+ Sodium Level 143 MMOL/L (136-145) Potassium Level 3.6 MMOL/L (3.5-5.1) Chloride Level 108 MMOL/L (98-107) H Carbon Dioxide Level 23 MMOL/L (21-32) Anion Gap 12 mmol/L (5-15) Blood Urea Nitrogen 47 mg/dL (7-18) H Creatinine 2.5 MG/DL (0.55-1.30) H Estimat Glomerular Filtration Rate 25.5 mL/min (>60) Glucose Level 129 MG/DL (74-106) H Uric Acid 5.5 MG/DL (2.6-7.2) Calcium Level 6.9 MG/DL (8.5-10.1) L Phosphorus Level 3.6 MG/DL (2.5-4.9) Magnesium Level 2.2 MG/DL (1.8-2.4) Total Bilirubin 0.4 MG/DL (0.2-1.0) Aspartate Amino Transf (AST/SGOT) 61 U/L (15-37) H Alanine Aminotransferase (ALT/SGPT) 9 U/L (12-78) L Alkaline Phosphatase 64 U/L (46-116) C-Reactive Protein, Quantitative 2.2 mg/dL (0.00-0.90) H Pro-B-Type Natriuretic Peptide 7126 pg/mL (0-125) H Total Protein 4.2 G/DL (6.4-8.2) L Albumin 1.3 G/DL (3.4-5.0) L Globulin 2.9 g/dL Albumin/Globulin Ratio 0.4 (1.0-2.7) L Microbiology Date/Time Source Procedure Growth Status 6/12/20 05:00 Sputum Gram Stain - Final Resulted 11/25/19 05:00 Sputum Culture - Preliminary Gram Negative [place] Yeast Species Resulted Alyssia Reed MD Nov 27, 2019 21:21
[2019-11-28] VITALS (24 sets, daily range): BP systolic 105–137; BP diastolic 57–97
[2019-11-28] MEDS: Acetaminophen 650mg/20.3ml GT PRN (05:07)
[2019-11-28] MEDS: D5NS 1,000 ML IV SCH (05:08)
[2019-11-28 06:22] LABS: HEMATOCRIT 24.2 % (42.0-52.0); HEMOGLOBIN 7.6 G/DL (14.2-18.0); MEAN CORPUSCULAR VOLUME 90 FL (80-99); PLATELET COUNT 289 K/UL (150-450); RED BLOOD COUNT 2.68 M/UL (4.70-6.10); RED CELL DISTRIBUTION WIDTH 16.3 % (11.6-14.8); WHITE BLOOD COUNT 19.9 K/UL (4.8-10.8)
[2019-11-28 07:12] LABS: ALANINE AMINOTRANSFERASE 11 U/L (12-78); ALBUMIN/GLOBULIN RATIO 0.3 (1.0-2.7); ALKALINE PHOSPHATASE 64 U/L (46-116); ANION GAP 9 mmol/L (5-15); ASPARTATE AMINO TRANSFERASE 45 U/L (15-37); BILIRUBIN,TOTAL 0.4 MG/DL (0.2-1.0); BLOOD UREA NITROGEN 50 mg/dL (7-18); CALCIUM 7.3 MG/DL (8.5-10.1); CARBON DIOXIDE 23 MMOL/L (21-32); CHLORIDE 108 MMOL/L (98-107); CREATININE 2.8 MG/DL (0.55-1.30); PHOSPHORUS 3.2 MG/DL (2.5-4.9); POTASSIUM 3.2 MMOL/L (3.5-5.1); SODIUM 140 MMOL/L (136-145)
[2019-11-28] MEDS: Calcium Gluconate 10% 1 GM in NS 110 ML IVPB SCH ×2 (08:16→20:27)
[2019-11-28] MEDS: Renvela 800mg Pkt NG SCH ×2 (08:17→20:28)
[2019-11-28] MEDS: Heparin 5000 units/ml inj SUBQ SCH ×2 (08:17→20:29)
--- NOTE | 2019-11-28 08:29 | General Progress Note ---
Assessment/Plan Problem List: (1) DM (diabetes mellitus) ICD Codes: E11.9 - Type 2 diabetes mellitus without complications SNOMED: 11581445 (2) ARF (acute renal failure) ICD Codes: N17.9 - Acute kidney failure, unspecified SNOMED: 41604735 Qualifiers: Qualified Codes: N17.9 - Acute kidney failure, unspecified (3) Aspiration pneumonia ICD Codes: J69.0 - Pneumonitis due to inhalation of food and vomit SNOMED: 880469537 (4) UTI (urinary tract infection) ICD Codes: N39.0 - Urinary tract infection, site not specified SNOMED: 13016946 Qualifiers: Qualified Codes: N30.00 - Acute cystitis without hematuria (5) Hypertension ICD Codes: I10 - Essential (primary) hypertension SNOMED: 50539577 (6) Anemia ICD Codes: D64.9 - Anemia, unspecified SNOMED: 100608071 Qualifiers: Qualified Codes: D64.9 - Anemia, unspecified (7) Respiratory failure with hypoxia ICD Codes: J96.91 - Respiratory failure, unspecified with hypoxia SNOMED: 37617585756686780 Qualifiers: Qualified Codes: J96.01 - Acute respiratory failure with hypoxia (8) Suspected COVID-19 virus infection ICD Codes: Z20.828 - Contact with and (suspected) exposure to other viral communicable diseases SNOMED: 430502781 Status: unchanged Assessment/Plan: vent abx pt diet cbc bmp am Subjective Constitutional: Reports: weakness Allergies: Coded Allergies: No Known Allergies (Unverified , 09/16/19) All Systems: reviewed and negative except above Subjective intubated sedated in icu Objective Last 24 Hour Vital Signs Date Time Temp Pulse Resp B/P (MAP) Pulse Ox O2 Delivery O2 Flow Rate FiO2 11/28/19 08:00 35 11/28/19 07:00 81 20 127/64 (85) 100 11/28/19 06:45 85 20 35 11/28/19 06:00 98.6 81 20 126/63 (84) 100 11/28/19 05:37 98.6 11/28/19 05:00 100.1 83 20 132/67 (88) 100 11/28/19 04:00 35 11/28/19 04:00 Mechanical Ventilator 11/28/19 04:00 84 20 132/68 (89) 100 11/28/19 04:00 84 11/28/19 03:30 83 20 35 11/28/19 03:00 97.8 84 20 137/63 (87) 100 11/28/19 02:00 93 20 100 11/28/19 02:00 93 20 117/97 (104) 100 11/28/19 01:00 82 20 124/63 (83) 100 11/28/19 00:00 Mechanical Ventilator 11/28/19 00:00 79 11/28/19 00:00 97.6 83 20 124/62 (82) 100 11/27/19 23:30 82 20 35 11/27/19 23:00 82 20 128/62 (84) 100 11/27/19 22:00 81 20 122/65 (84) 100 11/27/19 21:00 80 20 123/61 (81) 100 11/27/19 20:00 35 11/27/19 20:00 Mechanical Ventilator 11/27/19 20:00 98.0 76 19 122/62 (82) 100 11/27/19 19:36 77 11/27/19 19:30 79 20 35 11/27/19 19:00 79 20 121/61 (81) 100 11/27/19 18:00 86 20 139/112 (121) 100 11/27/19 17:00 77 20 131/64 (86) 100 11/27/19 16:00 35 11/27/19 16:00 Mechanical Ventilator 11/27/19 16:00 78 11/27/19 16:00 97.5 75 20 130/64 (86) 100 11/27/19 15:16 76 21 35 11/27/19 15:00 76 20 134/66 (88) 100 11/27/19 14:00 76 20 136/63 (87) 100 11/27/19 13:00 77 20 136/64 (88) 100 11/27/19 12:00 98.2 77 20 128/70 (89) 100 11/27/19 12:00 35 11/27/19 12:00 76 11/27/19 12:00 Mechanical Ventilator 11/27/19 11:01 74 20 35 11/27/19 11:00 76 20 133/68 (89) 100 11/27/19 10:00 72 20 135/64 (87) 100 11/27/19 09:57 137/57 11/27/19 09:00 73 20 137/57 (83) 100 Intake and Output 11/27/19 11/28/19 19:00 07:00 Intake Total 1010 ml 595 ml Output Total 385 ml 305 ml Balance 625 ml 290 ml Free Water 20 ml IV Total 570 ml 175 ml Tube Feeding 420 ml 420 ml Output Urine Total 85 ml 120 ml Stool Total 300 ml 185 ml # Voids 9 # Bowel Movements 9 Laboratory Tests 11/28/19 04:00: White Blood Count 19.9H, Red Blood Count 2.68L, Hemoglobin 7.6L, Hematocrit 24.2L, Mean Corpuscular Volume 90, Mean Corpuscular Hemoglobin 28.4, Mean Corpuscular Hemoglobin Concent 31.4L, Red Cell Distribution Width 16.3H, Platelet Count 289, Mean Platelet Volume 6.9, Neutrophils (%) (Auto) , Lymphocytes (%) (Auto) , Monocytes (%) (Auto) , Eosinophils (%) (Auto) , Basophils (%) (Auto) , Neutrophils % (Manual) [Pending], Lymphocytes % (Manual) [Pending], Platelet Estimate [Pending], Platelet Morphology [Pending], Sodium Level 140, Potassium Level 3.2L, Chloride Level 108H, Carbon Dioxide Level 23, Anion Gap 9, Blood Urea Nitrogen 50H, Creatinine 2.8H, Estimat Glomerular Filtration Rate 22.4, Glucose Level 129H, Calcium Level 7.3L, Phosphorus Level 3.2, Magnesium Level 2.0, Total Bilirubin 0.4, Aspartate Amino Transf (AST/SGOT ) 45H, Alanine Aminotransferase (ALT/SGPT) 11L, Alkaline Phosphatase 64, Total Protein 4.6L, Albumin 1.0L, Globulin 3.6, Albumin/Globulin Ratio 0.3L Height (Feet): 6 Height (Inches): 0.00 Weight (Pounds): 187 General Appearance: lethargic EENT: normal ENT inspection Neck: normal alignment Cardiovascular: normal rate, regular rhythm Respiratory/Chest: no respiratory distress, no accessory muscle use Extremities: normal inspection Skin: normal pigmentation Juan Singh DO Nov 28, 2019 08:29
[2019-11-28] MEDS: Norepinephrine Bitartrate 8 MG in D5W 500ml 550 ML IV SCH (10:00)
--- NOTE | 2019-11-28 10:33 | Pulmonolgy Critical Care Note ---
Critical Care - Asmt/Plan Problems: (1) Acute respiratory failure (2) Cardiac arrest (3) Bacteremia Assessment & Plan: enterocococus fecalis in blood. Proteus and Pseudomonas in sputum. (4) 2019 novel coronavirus disease (COVID-19) (5) ARF (acute renal failure) (6) Aspiration pneumonia (7) Ventricular tachyarrhythmia (8) DM (diabetes mellitus) Respiratory: monitor respiratory rate, adjust FIO2, CXR Cardiac: continue pressors, continue to monitor HR/BP Renal: F/U I&O, keep IV fluid, check electrolytes Infectious Disease: check cultures Gastrointestinal: continue feedings/current rate Endocrine: monitor blood sugar, check HgA1C, continue sliding scale insulin Hematologic: monitor H/H, transfuse if hgb<8.5 Neurologic: PRN Ativan, keep patient comfortable Affect: PRN ativan Disposition: keep in ICU Notes Reviewed: counter caser, cardio, renal 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, consultants, top case assemblerhim manager - Objective Last 24 Hour Vital Signs Date Time Temp Pulse Resp B/P (MAP) Pulse Ox O2 Delivery O2 Flow Rate FiO2 11/28/19 10:00 129/68 11/28/19 10:00 100 11/28/19 09:00 87 20 129/71 (90) 100 11/28/19 08:00 35 11/28/19 08:00 Mechanical Ventilator 11/28/19 08:00 98.6 80 20 126/70 (88) 100 11/28/19 07:00 81 20 127/64 (85) 100 11/28/19 06:45 85 20 35 11/28/19 06:00 98.6 81 20 126/63 (84) 100 11/28/19 05:37 98.6 11/28/19 05:00 100.1 83 20 132/67 (88) 100 11/28/19 04:00 35 11/28/19 04:00 Mechanical Ventilator 11/28/19 04:00 84 20 132/68 (89) 100 11/28/19 04:00 84 11/28/19 03:30 83 20 35 11/28/19 03:00 97.8 84 20 137/63 (87) 100 11/28/19 02:00 93 20 100 11/28/19 02:00 93 20 117/97 (104) 100 11/28/19 01:00 82 20 124/63 (83) 100 11/28/19 00:00 Mechanical Ventilator 11/28/19 00:00 79 11/28/19 00:00 97.6 83 20 124/62 (82) 100 11/27/19 23:30 82 20 35 11/27/19 23:00 82 20 128/62 (84) 100 11/27/19 22:00 81 20 122/65 (84) 100 11/27/19 21:00 80 20 123/61 (81) 100 11/27/19 20:00 35 11/27/19 20:00 Mechanical Ventilator 11/27/19 20:00 98.0 76 19 122/62 (82) 100 11/27/19 19:36 77 11/27/19 19:30 79 20 35 11/27/19 19:00 79 20 121/61 (81) 100 11/27/19 18:00 86 20 139/112 (121) 100 11/27/19 17:00 77 20 131/64 (86) 100 11/27/19 16:00 35 11/27/19 16:00 Mechanical Ventilator 11/27/19 16:00 78 11/27/19 16:00 97.5 75 20 130/64 (86) 100 11/27/19 15:16 76 21 35 11/27/19 15:00 76 20 134/66 (88) 100 11/27/19 14:00 76 20 136/63 (87) 100 11/27/19 13:00 77 20 136/64 (88) 100 11/27/19 12:00 98.2 77 20 128/70 (89) 100 11/27/19 12:00 35 11/27/19 12:00 76 11/27/19 12:00 Mechanical Ventilator 11/27/19 11:01 74 20 35 11/27/19 11:00 76 20 133/68 (89) 100 Status: sedated Condition: critical Neck: full ROM Lungs: chest wall tender Heart: HR/BP stable Abdomen: soft, non-tender Extremities: no C/C/E Critical Care - Subjective ROS Limited/Unobtainable: Yes EKG Rhythm: Sinus Rhythm FI02: 35 Vent Support Breath Rate: 20 Vent Support Mode: AC Vent Tidal Volume: 550 Sputum Amount: Small PEEP: 5.0 PIP: 25 Tube Feeding Amount: 35 I&O: Intake and Output 11/27/19 11/28/19 19:00 07:00 Intake Total 1010 ml 645 ml Output Total 385 ml 305 ml Balance 625 ml 340 ml Free Water 20 ml IV Total 570 ml 225 ml Tube Feeding 420 ml 420 ml Output Urine Total 85 ml 120 ml Stool Total 300 ml 185 ml # Voids 9 # Bowel Movements 9 ET-Tube: 8.0 ET Position: 23 Labs: Laboratory Tests Test 11/28/19 04:00 White Blood Count 19.9 K/UL (4.8-10.8) H Red Blood Count 2.68 M/UL (4.70-6.10) L Hemoglobin 7.6 G/DL (14.2-18.0) L Hematocrit 24.2 % (42.0-52.0) L Mean Corpuscular Volume 90 FL (80-99) Mean Corpuscular Hemoglobin 28.4 PG (27.0-31.0) Mean Corpuscular Hemoglobin Concent 31.4 G/DL (32.0-36.0) L Red Cell Distribution Width 16.3 % (11.6-14.8) H Platelet Count 289 K/UL (150-450) Mean Platelet Volume 6.9 FL (6.5-10.1) Neutrophils (%) (Auto) % (45.0-75.0) Lymphocytes (%) (Auto) % (20.0-45.0) Monocytes (%) (Auto) % (1.0-10.0) Eosinophils (%) (Auto) % (0.0-3.0) Basophils (%) (Auto) % (0.0-2.0) Differential Total Cells Counted 100 Neutrophils % (Manual) 91 % (45-75) H Lymphocytes % (Manual) 6 % (20-45) L Monocytes % (Manual) 3 % (1-10) Eosinophils % (Manual) 0 % (0-3) Basophils % (Manual) 0 % (0-2) Band Neutrophils 0 % (0-8) Platelet Estimate Adequate Platelet Morphology Normal Anisocytosis 1+ Sodium Level 140 MMOL/L (136-145) Potassium Level 3.2 MMOL/L (3.5-5.1) L Chloride Level 108 MMOL/L (98-107) H Carbon Dioxide Level 23 MMOL/L (21-32) Anion Gap 9 mmol/L (5-15) Blood Urea Nitrogen 50 mg/dL (7-18) H Creatinine 2.8 MG/DL (0.55-1.30) H Estimat Glomerular Filtration Rate 22.4 mL/min (>60) Glucose Level 129 MG/DL (74-106) H Calcium Level 7.3 MG/DL (8.5-10.1) L Phosphorus Level 3.2 MG/DL (2.5-4.9) Magnesium Level 2.0 MG/DL (1.8-2.4) Total Bilirubin 0.4 MG/DL (0.2-1.0) Aspartate Amino Transf (AST/SGOT) 45 U/L (15-37) H Alanine Aminotransferase (ALT/SGPT) 11 U/L (12-78) L Alkaline Phosphatase 64 U/L (46-116) Total Protein 4.6 G/DL (6.4-8.2) L Albumin 1.0 G/DL (3.4-5.0) L Globulin 3.6 g/dL Albumin/Globulin Ratio 0.3 (1.0-2.7) L Ayana Ndiaye MD Nov 28, 2019 10:33
--- NOTE | 2019-11-28 10:46 | Hematology/Onc Progress Note ---
Assessment/Plan Assessment/Plan Assessment and Recs # Leukocytosis/elevated white blood cell count, unspecified likely related to underlying stress reaction, smoking v more likely infection, in this case with pna and COVID19++++++++ --> have reviewed peripheral smear and bandemia/neutrophilia noted --> continue antibiotics if they have been started by ID team --> monitor for resolution --> wbc 35k-->31.2-->25-->27.4 -->25-->20.7-->18.6 -->27-->19.7 -->20->20 --> abx/antivral: remdesivir/vanc/cefepime-->vanc/flagyl/monique-->linezolid/monique-- >cefepime/zyvox/vanc ->vanc/cefepime # Thrombocytosis - if plt count >400k, most usually is a reactive process and will improve once exacerbant removed as well --> in this case due to underlying infection --> plt trend 646k-->672 -->547-->372-->345-->149 -->246 --> smear is noted # Anemia of chronic disease due to underlying chronic medical issues, multifactorial v Gi bleed --> Anemia workup has been ordered, rule out gi bleed -> ferritin 1339 --> No evidence of hemolysis is noted, peripheral smear has been reviewed. --> Hgb goal >7. Transfuse prn. --> Epogen or iron at this time is not particularly indicated --> Medications have been reviewed --> low threshold for gi evaluation in case has occult + --> bone marrow biopsy is not indicated given the other more likely causes --> hgb 9.5-->9.8->8.8-->8.6-->7.5-->9.5-->7.5 -->9.1-->8-->7.6 --> 1 unit prbc 11/20 --> ddimer remains elevated currently # Acute hypoxic resp failure- on NRB 15L- 2ry to COVID19 --> per id and pulm recs --> breathing treatments and rep cxr --> 11/15 cxr: New/increased infiltrates at the left lateral lung base # UTI c/w bacteremia --> abx per id # Cdiff colitis --> abx # MONICA, improving # Deep tissue injury (sacrum, L heel) # HTN # Dm2 # MDD # Dysphagia s/p GT # malnutrition # decubitus ulcer # non verbal # 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 Greatly appreciate consultation. Subjective Allergies: Coded Allergies: No Known Allergies (Unverified , 09/16/19) All Systems: reviewed and negative except above Subjective 11/15 tele, no acute events, cxr and labs reviewed, nrb 15l, remdesivir 11/16 remains on iso, breathing is improved, no night sweats 11/17 remains with fever, cooling blankets, labs noted, no bleed hgb 8.8 11/19 icu, no acute events, vent, levo gtt, meds and labs reviewed 11/20 labs noted, no bleeding, in icu, hgb 7.5, to get one unit prbc, wbc elev 25 11/21 non verbal, s/p blood, hgb improved to 9.5, vent, iv abx 11/22 icu, no new changes, labs reviewed, levo gtt 11/23 labs are noted, no bleeding, in icu, on levo, wbc 27, hgb 9 11/24 nonverbal, no new changes, afebrile 11/26 nonverbal, in icu, on vent, wbc 20, hgb 8, no bleeding 11/[address], vent, lavonne as well, labs reviewed Objective Objective Current Medications Medications (Trade) Dose Ordered Sig/Leonor Route PRN Reason Start Time Stop Time Status Last Admin Dose Admin Acetaminophen (Tylenol) 650 mg Q4H PRN GT fever 11/18/19 03:00 12/11/19 02:59 11/28/19 05:07 Allopurinol (allopurinoL) 300 mg DAILY GT 11/21/19 09:00 12/21/19 08:59 11/28/19 08:17 Calcium Gluconate 1 gm/Sodium Chloride 120 ml @ 240 mls/hr Q12HR IVPB 11/22/19 09:00 12/22/19 08:59 11/28/19 08:16 Cefepime HCl 2 gm/ Dextrose 55 ml @ 110 mls/hr Q24H IVPB 11/27/19 21:00 12/04/19 20:59 11/27/19 20:37 Chlorhexidine Gluconate (Danielle-Hex 2%) 1 applic DAILY@2000 TOPIC 11/18/19 20:00 02/16/20 19:59 11/27/19 20:36 Dextrose/Sodium Chloride 1,000 ml @ 50 mls/hr Q20H IV 11/22/19 10:15 12/20/19 10:14 11/28/19 05:08 Heparin Sodium (Porcine) (Heparin 5000 units/ml) 5,000 units EVERY 12 HOURS SUBQ 11/18/19 09:00 12/26/19 08:59 11/28/19 08:17 Midodrine (Pro-Amatine) 10 mg Q8HR PRN ORAL BP below 100 systolic 11/27/19 10:00 02/20/20 13:59 Norepinephrine Bitartrate 8 mg/ Dextrose 558 ml @ 0 mls/hr Q24H IV 11/18/19 10:00 12/18/19 09:59 11/23/19 22:22 Ondansetron HCl (Zofran) 4 mg Q6H PRN IVP Nausea & Vomiting 11/18/19 03:00 12/11/19 08:59 Potassium Chloride 100 ml @ 50 mls/hr ONCE ONCE IVPB 11/28/19 10:00 11/28/19 11:59 Sevelamer Carbonate (Renvela) 800 mg Q12HR NG 11/27/19 21:00 02/20/20 07:59 11/28/19 08:17 Vancomycin HCl (Firvanq) 125 mg FOUR TIMES A DAY NG 11/28/19 13:00 12/05/19 23:59 Last 24 Hour Vital Signs Date Time Temp Pulse Resp B/P (MAP) Pulse Ox O2 Delivery O2 Flow Rate FiO2 11/28/19 10:00 129/68 11/28/19 10:00 100 11/28/19 09:00 87 20 129/71 (90) 100 11/28/19 08:00 35 11/28/19 08:00 Mechanical Ventilator 11/28/19 08:00 98.6 80 20 126/70 (88) 100 11/28/19 07:00 81 20 127/64 (85) 100 11/28/19 06:45 85 20 35 11/28/19 06:00 98.6 81 20 126/63 (84) 100 11/28/19 05:37 98.6 11/28/19 05:00 100.1 83 20 132/67 (88) 100 11/28/19 04:00 35 11/28/19 04:00 Mechanical Ventilator 11/28/19 04:00 84 20 132/68 (89) 100 11/28/19 04:00 84 11/28/19 03:30 83 20 35 11/28/19 03:00 97.8 84 20 137/63 (87) 100 11/28/19 02:00 93 20 100 11/28/19 02:00 93 20 117/97 (104) 100 11/28/19 01:00 82 20 124/63 (83) 100 11/28/19 00:00 Mechanical Ventilator 11/28/19 00:00 79 11/28/19 00:00 97.6 83 20 124/62 (82) 100 11/27/19 23:30 82 20 35 11/27/19 23:00 82 20 128/62 (84) 100 11/27/19 22:00 81 20 122/65 (84) 100 11/27/19 21:00 80 20 123/61 (81) 100 11/27/19 20:00 35 11/27/19 20:00 Mechanical Ventilator 11/27/19 20:00 98.0 76 19 122/62 (82) 100 11/27/19 19:36 77 11/27/19 19:30 79 20 35 11/27/19 19:00 79 20 121/61 (81) 100 11/27/19 18:00 86 20 139/112 (121) 100 11/27/19 17:00 77 20 131/64 (86) 100 11/27/19 16:00 35 11/27/19 16:00 Mechanical Ventilator 11/27/19 16:00 78 11/27/19 16:00 97.5 75 20 130/64 (86) 100 11/27/19 15:16 76 21 35 11/27/19 15:00 76 20 134/66 (88) 100 11/27/19 14:00 76 20 136/63 (87) 100 11/27/19 13:00 77 20 136/64 (88) 100 11/27/19 12:00 98.2 77 20 128/70 (89) 100 11/27/19 12:00 35 11/27/19 12:00 76 11/27/19 12:00 Mechanical Ventilator 11/27/19 11:01 74 20 35 11/27/19 11:00 76 20 133/68 (89) 100 11/27/19 10:00 72 20 135/64 (87) 100 11/27/19 09:57 137/57 11/27/19 09:00 73 20 137/57 (83) 100 11/27/19 08:00 97.9 72 20 133/56 (81) 100 11/27/19 08:00 Mechanical Ventilator 11/27/19 08:00 35 11/27/19 08:00 72 11/27/19 07:05 73 20 35 11/27/19 07:00 81 14 166/81 (109) 100 11/27/19 06:00 71 20 143/61 (88) 100 11/27/19 05:00 72 20 149/59 (89) 100 11/27/19 04:00 74 11/27/19 04:00 96.5 74 20 146/59 (88) 100 11/27/19 04:00 Mechanical Ventilator 11/27/19 04:00 35 11/27/19 03:07 76 20 35 11/27/19 03:00 74 20 136/68 (90) 100 11/27/19 02:00 71 20 146/72 (96) 100 11/27/19 01:00 72 20 144/76 (98) 100 11/27/19 00:00 Mechanical Ventilator 11/27/19 00:00 96.1 73 20 141/66 (91) 100 11/26/19 23:00 73 20 150/69 (96) 100 11/26/19 23:00 71 20 35 11/26/19 22:00 73 20 138/66 (90) 100 11/26/19 21:00 71 20 133/65 (87) 100 11/26/19 20:00 98.7 71 20 132/65 (87) 100 11/26/19 20:00 71 11/26/19 20:00 Mechanical Ventilator 11/26/19 20:00 35 11/26/19 19:30 72 20 35 11/26/19 19:00 74 20 135/66 (89) 100 11/26/19 18:00 98.7 76 21 123/60 (81) 100 11/26/19 17:00 81 17 111/58 (75) 100 11/26/19 16:00 35 11/26/19 16:00 100 20 113/56 (75) 100 11/26/19 16:00 78 11/26/19 16:00 Mechanical Ventilator 11/26/19 15:00 100 21 105/53 (70) 100 11/26/19 14:34 76 21 35 11/26/19 14:00 79 21 99/56 (70) 99 11/26/19 13:00 83 21 105/52 (69) 99 11/26/19 12:00 80 11/26/19 12:00 Mechanical Ventilator 11/26/19 12:00 35 11/26/19 12:00 99.5 90 18 104/55 (71) 97 11/26/19 11:15 95 21 35 11/26/19 11:00 93 19 110/54 (72) 96 Intake and Output 11/27/19 11/28/19 19:00 07:00 Intake Total 1010 ml 645 ml Output Total 385 ml 305 ml Balance 625 ml 340 ml Free Water 20 ml IV Total 570 ml 225 ml Tube Feeding 420 ml 420 ml Output Urine Total 85 ml 120 ml Stool Total 300 ml 185 ml # Voids 9 # Bowel Movements 9 Labs Test 11/26/19 04:40 11/27/19 04:30 11/28/19 04:00 White Blood Count 15.9 K/UL (4.8-10.8) 19.9 K/UL (4.8-10.8) 19.9 K/UL (4.8-10.8) Red Blood Count 2.76 M/UL (4.70-6.10) 2.87 M/UL (4.70-6.10) 2.68 M/UL (4.70-6.10) Hemoglobin 7.8 G/DL (14.2-18.0) 8.0 G/DL (14.2-18.0) 7.6 G/DL (14.2-18.0) Hematocrit 24.3 % (42.0-52.0) 26.0 % (42.0-52.0) 24.2 % (42.0-52.0) Mean Corpuscular Volume 88 FL (80-99) 91 FL (80-99) 90 FL (80-99) Mean Corpuscular Hemoglobin 28.2 PG (27.0-31.0) 28.0 PG (27.0-31.0) 28.4 PG (27.0-31.0) Mean Corpuscular Hemoglobin Concent 32.1 G/DL (32.0-36.0) 30.9 G/DL (32.0-36.0) 31.4 G/DL (32.0-36.0) Red Cell Distribution Width 14.3 % (11.6-14.8) 16.2 % (11.6-14.8) 16.3 % (11.6-14.8) Platelet Count 256 K/UL (150-450) 281 K/UL (150-450) 289 K/UL (150-450) Mean Platelet Volume 6.9 FL (6.5-10.1) 6.6 FL (6.5-10.1) 6.9 FL (6.5-10.1) Neutrophils (%) (Auto) % (45.0-75.0) % (45.0-75.0) % (45.0-75.0) Lymphocytes (%) (Auto) % (20.0-45.0) % (20.0-45.0) % (20.0-45.0) Monocytes (%) (Auto) % (1.0-10.0) % (1.0-10.0) % (1.0-10.0) Eosinophils (%) (Auto) % (0.0-3.0) % (0.0-3.0) % (0.0-3.0) Basophils (%) (Auto) % (0.0-2.0) % (0.0-2.0) % (0.0-2.0) Differential Total Cells Counted 100 100 100 Neutrophils % (Manual) 81 % (45-75) 86 % (45-75) 91 % (45-75) Lymphocytes % (Manual) 16 % (20-45) 13 % (20-45) 6 % (20-45) Monocytes % (Manual) 3 % (1-10) 1 % (1-10) 3 % (1-10) Eosinophils % (Manual) 0 % (0-3) 0 % (0-3) 0 % (0-3) Basophils % (Manual) 0 % (0-2) 0 % (0-2) 0 % (0-2) Band Neutrophils 0 % (0-8) 0 % (0-8) 0 % (0-8) Platelet Estimate Adequate Adequate Adequate Platelet Morphology Normal Normal Normal Hypochromasia 1+ Anisocytosis 1+ 1+ 1+ Sodium Level 141 MMOL/L (136-145) 143 MMOL/L (136-145) 140 MMOL/L (136-145) Potassium Level 3.2 MMOL/L (3.5-5.1) 3.6 MMOL/L (3.5-5.1) 3.2 MMOL/L (3.5-5.1) Chloride Level 106 MMOL/L (98-107) 108 MMOL/L (98-107) 108 MMOL/L (98-107) Carbon Dioxide Level 24 MMOL/L (21-32) 23 MMOL/L (21-32) 23 MMOL/L (21-32) Anion Gap 11 mmol/L (5-15) 12 mmol/L (5-15) 9 mmol/L (5-15) Blood Urea Nitrogen 37 mg/dL (7-18) 47 mg/dL (7-18) 50 mg/dL (7-18) Creatinine 2.4 MG/DL (0.55-1.30) 2.5 MG/DL (0.55-1.30) 2.8 MG/DL (0.55-1.30) Estimat Glomerular Filtration Rate 26.7 mL/min (>60) 25.5 mL/min (>60) 22.4 mL/min (>60) Glucose Level 122 MG/DL (74-106) 129 MG/DL (74-106) 129 MG/DL (74-106) Uric Acid 5.4 MG/DL (2.6-7.2) 5.5 MG/DL (2.6-7.2) Calcium Level 7.2 MG/DL (8.5-10.1) 6.9 MG/DL (8.5-10.1) 7.3 MG/DL (8.5-10.1) Phosphorus Level 3.4 MG/DL (2.5-4.9) 3.6 MG/DL (2.5-4.9) 3.2 MG/DL (2.5-4.9) Magnesium Level 2.1 MG/DL (1.8-2.4) 2.2 MG/DL (1.8-2.4) 2.0 MG/DL (1.8-2.4) Total Bilirubin 0.4 MG/DL (0.2-1.0) 0.4 MG/DL (0.2-1.0) 0.4 MG/DL (0.2-1.0) Aspartate Amino Transf (AST/SGOT) 65 U/L (15-37) 61 U/L (15-37) 45 U/L (15-37) Alanine Aminotransferase (ALT/SGPT) 11 U/L (12-78) 9 U/L (12-78) 11 U/L (12-78) Alkaline Phosphatase 61 U/L (46-116) 64 U/L (46-116) 64 U/L (46-116) C-Reactive Protein, Quantitative 3.4 mg/dL (0.00-0.90) 2.2 mg/dL (0.00-0.90) Pro-B-Type Natriuretic Peptide 4247 pg/mL (0-125) 7126 pg/mL (0-125) Total Protein 4.7 G/DL (6.4-8.2) 4.2 G/DL (6.4-8.2) 4.6 G/DL (6.4-8.2) Albumin 1.4 G/DL (3.4-5.0) 1.3 G/DL (3.4-5.0) 1.0 G/DL (3.4-5.0) Globulin 3.3 g/dL 2.9 g/dL 3.6 g/dL Albumin/Globulin Ratio 0.4 (1.0-2.7) 0.4 (1.0-2.7) 0.3 (1.0-2.7) Height (Feet): 6 Height (Inches): 0.00 Weight (Pounds): 187 Objective PE General: alert, chronically Ill Heent: nc, at Neck: full range of motion, supple, no meningismus Respiratory: chest non-tender, decreased breath sounds, crackles, vent++ Cardiovascular: no murmur, tachycardia Gastrointestinal: normal bowel sounds, non tender,+peg Musculoskeletal: back normal, normal range of motion, gait/station normal Neurologic: no pronator Deng Flowers MD Nov 28, 2019 10:45
--- NOTE | 2019-11-28 11:49 | Nephrology Progress Note ---
Assessment/Plan Problem List: (1) ARF (acute renal failure) (2) Hyperkalemia (3) DM (diabetes mellitus) (4) Suspected COVID-19 virus infection (5) Sepsis (6) Severe malnutrition Assessment: Severe hypoalbuminemia Assessment his 74-year-old male with multiple Multiple medical problem presents with respiratory symptoms and diarrhea Renal failure most likely prerenal azotemia secondary to dehydration Hyperkalemia on presentation also secondary to dehydration Sepsis pneumonia hypoxia UTI Anemia History of hypertension History of diabetes mellitus Suspected COVID-19 virus infection Hypoalbuminemia Plan C. difficile positive COVID-19 detected November 27: Labs reviewed. No dialysis today. Discussed with RN. Potassium supplement given. Continue to monitor renal parameters. Continue per consultants. November 26: Lab reviewed. Remains full code. Remains intubated. Midodrin changed to PRN. Electrolytes acceptable. Will monitor renal parameters and urine output and dialyze as needed. November 25: Dialyzed yesterday. Lab reviewed. Remains full code. Remains intubated on ventilator. On minimal dose of pressors. 20 mEq potassium chloride IV ordered for low potassium level. November 24: Patient remains intubated. Due for dialysis today. Labs reviewed. Continues to be full code. November 23: Patient was dialyzed yesterday. Labs reviewed. Status quo. Remains full code. Will arrange for dialysis tomorrow. November 22: Patient in ICU. Intubated on ventilator. On low-dose pressors. Urine output labile. Serum creatinine rising. Patient developing acute renal failure. Need urgent dialysis treatment. Will arrange for placement of non- tunneled dialysis catheter as soon as possible. RN states that no family member or next of kin could be contacted at this time. Due to the urgency of the problem and the patient being full code will proceed with placement of dialysis catheter and dialysis treatment as soon as possible. November 21: Patient continues to do poorly. Discussed with RN. Started on Midodrin for BP support. Nephro feeding started. Phosphorus binders started. IV calcium ordered. Continue to monitor renal parameters and urine output. Continue per consultants. Patient remains full code. Per orders. November 20: Serum creatinine continuing to rise. Remains of 100 cc an hour IV fluid. Urine output remains low. Blood pressure also borderline low, on pressors. Continue per consultants. Continue to monitor renal parameters and urine output. Continue to avoid nephrotoxic's. Further deterioration of renal function may lead to dialysis treatment. Will discuss with PMD. November 19: Serum creatinine rising. Urine output decreasing. Will change to IV, D5 normal saline. Will give albumin bolus followed by Lasix 40 mg IV push. Continue to monitor renal parameters and urine output. Continue to avoid nephrotoxic medications as possible. Today's vancomycin level was 22. November 18: Serum creatinine rising. Continues to be full code. Continues to be intubated on ventilator. Remains on IV fluids. Vancomycin levels per pharmacy. Prognosis poor due to sepsis. November 17: Intubated on ventilator in ICU. Will continue half-normal saline 100 cc an hour. Continue per pulmonary and ID. Prognosis poor. Continue to monitor renal parameters. Hydrate with half-normal saline, serum creatinine now at its lowest today. monitor electrolytes Will change the feeding to Nepro and monitor her potassium and other electrolytes Continue per ID Keep the blood pressure and blood sugar in check Monitor renal parameters Previously: Urine studies Monitor intake and output Cultures including stool for C. difficile Per orders Patient's CODE STATUS is full Subjective ROS Limited/Unobtainable: Yes Objective Objective Last 24 Hour Vital Signs Date Time Temp Pulse Resp B/P (MAP) Pulse Ox O2 Delivery O2 Flow Rate FiO2 11/28/19 11:00 85 20 128/68 (88) 100 11/28/19 10:00 129/68 11/28/19 10:00 86 20 129/68 (88) 100 11/28/19 10:00 100 11/28/19 09:00 87 20 129/71 (90) 100 11/28/19 08:00 35 11/28/19 08:00 Mechanical Ventilator 11/28/19 08:00 98.6 80 20 126/70 (88) 100 11/28/19 07:00 81 20 127/64 (85) 100 11/28/19 06:45 85 20 35 11/28/19 06:00 98.6 81 20 126/63 (84) 100 11/28/19 05:37 98.6 11/28/19 05:00 100.1 83 20 132/67 (88) 100 11/28/19 04:00 35 11/28/19 04:00 Mechanical Ventilator 11/28/19 04:00 84 20 132/68 (89) 100 11/28/19 04:00 84 11/28/19 03:30 83 20 35 11/28/19 03:00 97.8 84 20 137/63 (87) 100 11/28/19 02:00 93 20 100 11/28/19 02:00 93 20 117/97 (104) 100 11/28/19 01:00 82 20 124/63 (83) 100 11/28/19 00:00 Mechanical Ventilator 11/28/19 00:00 79 11/28/19 00:00 97.6 83 20 124/62 (82) 100 11/27/19 23:30 82 20 35 11/27/19 23:00 82 20 128/62 (84) 100 11/27/19 22:00 81 20 122/65 (84) 100 11/27/19 21:00 80 20 123/61 (81) 100 11/27/19 20:00 35 11/27/19 20:00 Mechanical Ventilator 11/27/19 20:00 98.0 76 19 122/62 (82) 100 11/27/19 19:36 77 11/27/19 19:30 79 20 35 11/27/19 19:00 79 20 121/61 (81) 100 11/27/19 18:00 86 20 139/112 (121) 100 11/27/19 17:00 77 20 131/64 (86) 100 11/27/19 16:00 35 11/27/19 16:00 Mechanical Ventilator 11/27/19 16:00 78 11/27/19 16:00 97.5 75 20 130/64 (86) 100 11/27/19 15:16 76 21 35 11/27/19 15:00 76 20 134/66 (88) 100 11/27/19 14:00 76 20 136/63 (87) 100 11/27/19 13:00 77 20 136/64 (88) 100 11/27/19 12:00 98.2 77 20 128/70 (89) 100 11/27/19 12:00 35 11/27/19 12:00 76 11/27/19 12:00 Mechanical Ventilator Intake and Output 11/27/19 11/28/19 19:00 07:00 Intake Total 1010 ml 645 ml Output Total 385 ml 305 ml Balance 625 ml 340 ml Free Water 20 ml IV Total 570 ml 225 ml Tube Feeding 420 ml 420 ml Output Urine Total 85 ml 120 ml Stool Total 300 ml 185 ml # Voids 9 # Bowel Movements 9 Laboratory Tests 11/28/19 04:00: White Blood Count 19.9H, Red Blood Count 2.68L, Hemoglobin 7.6L, Hematocrit 24.2L, Mean Corpuscular Volume 90, Mean Corpuscular Hemoglobin 28.4, Mean Corpuscular Hemoglobin Concent 31.4L, Red Cell Distribution Width 16.3H, Platelet Count 289, Mean Platelet Volume 6.9, Neutrophils (%) (Auto) , Lymphocytes (%) (Auto) , Monocytes (%) (Auto) , Eosinophils (%) (Auto) , Basophils (%) (Auto) , Differential Total Cells Counted 100, Neutrophils % ( Manual) 91H, Lymphocytes % (Manual) 6L, Monocytes % (Manual) 3, Eosinophils % ( Manual) 0, Basophils % (Manual) 0, Band Neutrophils 0, Platelet Estimate Adequate, Platelet Morphology Normal, Anisocytosis 1+, Sodium Level 140, Potassium Level 3.2L, Chloride Level 108H, Carbon Dioxide Level 23, Anion Gap 9 , Blood Urea Nitrogen 50H, Creatinine 2.8H, Estimat Glomerular Filtration Rate 22.4, Glucose Level 129H, Calcium Level 7.3L, Phosphorus Level 3.2, Magnesium Level 2.0, Total Bilirubin 0.4, Aspartate Amino Transf (AST/SGOT) 45H, Alanine Aminotransferase (ALT/SGPT) 11L, Alkaline Phosphatase 64, Total Protein 4.6L, Albumin 1.0L, Globulin 3.6, Albumin/Globulin Ratio 0.3L 11/28/19 10:39: Arterial Blood pH 7.435, Arterial Blood Partial Pressure CO2 33.9L, Arterial Blood Partial Pressure O2 83.7, Arterial Blood HCO3 22.3, Arterial Blood Oxygen Saturation 95.7, Arterial Blood Base Excess -1.7, Michael Test Positive Height (Feet): 6 Height (Inches): 0.00 Weight (Pounds): 187 General Appearance: no apparent distress EENT: other - Intubated on ventilator Cardiovascular: tachycardia Respiratory/Chest: decreased breath sounds Abdomen: distended Objective No other change Ricardo Choudhary MD Nov 28, 2019 11:49
[2019-11-28] MEDS: Vancomycin oral 125mg/2.5ml NG SCH ×3 (13:26→20:28)
--- NOTE | 2019-11-28 14:07 | Surgery Progress Note ---
Surgery Progress Note Subjective Additional Comments leukocytosis anemia ill appearing no n/v/ labs reviewed Objective Last 24 Hour Vital Signs Date Time Temp Pulse Resp B/P (MAP) Pulse Ox O2 Delivery O2 Flow Rate FiO2 11/28/19 12:00 35 11/28/19 11:05 83 20 35 11/28/19 11:00 85 20 128/68 (88) 100 11/28/19 10:00 129/68 11/28/19 10:00 86 20 129/68 (88) 100 11/28/19 10:00 100 11/28/19 09:00 87 20 129/71 (90) 100 11/28/19 08:00 35 11/28/19 08:00 Mechanical Ventilator 11/28/19 08:00 98.6 80 20 126/70 (88) 100 11/28/19 07:00 81 20 127/64 (85) 100 11/28/19 06:45 85 20 35 11/28/19 06:00 98.6 81 20 126/63 (84) 100 11/28/19 05:37 98.6 11/28/19 05:00 100.1 83 20 132/67 (88) 100 11/28/19 04:00 35 11/28/19 04:00 Mechanical Ventilator 11/28/19 04:00 84 20 132/68 (89) 100 11/28/19 04:00 84 11/28/19 03:30 83 20 35 11/28/19 03:00 97.8 84 20 137/63 (87) 100 11/28/19 02:00 93 20 100 11/28/19 02:00 93 20 117/97 (104) 100 11/28/19 01:00 82 20 124/63 (83) 100 11/28/19 00:00 Mechanical Ventilator 11/28/19 00:00 79 11/28/19 00:00 97.6 83 20 124/62 (82) 100 11/27/19 23:30 82 20 35 11/27/19 23:00 82 20 128/62 (84) 100 11/27/19 22:00 81 20 122/65 (84) 100 11/27/19 21:00 80 20 123/61 (81) 100 11/27/19 20:00 35 11/27/19 20:00 Mechanical Ventilator 11/27/19 20:00 98.0 76 19 122/62 (82) 100 11/27/19 19:36 77 11/27/19 19:30 79 20 35 11/27/19 19:00 79 20 121/61 (81) 100 11/27/19 18:00 86 20 139/112 (121) 100 11/27/19 17:00 77 20 131/64 (86) 100 11/27/19 16:00 35 11/27/19 16:00 Mechanical Ventilator 11/27/19 16:00 78 11/27/19 16:00 97.5 75 20 130/64 (86) 100 11/27/19 15:16 76 21 35 11/27/19 15:00 76 20 134/66 (88) 100 I&O Intake and Output 11/27/19 11/28/19 19:00 07:00 Intake Total 1010 ml 645 ml Output Total 385 ml 305 ml Balance 625 ml 340 ml Free Water 20 ml IV Total 570 ml 225 ml Tube Feeding 420 ml 420 ml Output Urine Total 85 ml 120 ml Stool Total 300 ml 185 ml # Voids 9 # Bowel Movements 9 Dressing: other Wound: other Drains: other Cardiovascular: RSR Respiratory: decreased breath sounds Abdomen: soft, non-distended Extremities: no cyanosis, other Laboratory Tests Test 11/28/19 04:00 11/28/19 10:39 White Blood Count 19.9 K/UL (4.8-10.8) H Red Blood Count 2.68 M/UL (4.70-6.10) L Hemoglobin 7.6 G/DL (14.2-18.0) L Hematocrit 24.2 % (42.0-52.0) L Mean Corpuscular Volume 90 FL (80-99) Mean Corpuscular Hemoglobin 28.4 PG (27.0-31.0) Mean Corpuscular Hemoglobin Concent 31.4 G/DL (32.0-36.0) L Red Cell Distribution Width 16.3 % (11.6-14.8) H Platelet Count 289 K/UL (150-450) Mean Platelet Volume 6.9 FL (6.5-10.1) Neutrophils (%) (Auto) % (45.0-75.0) Lymphocytes (%) (Auto) % (20.0-45.0) Monocytes (%) (Auto) % (1.0-10.0) Eosinophils (%) (Auto) % (0.0-3.0) Basophils (%) (Auto) % (0.0-2.0) Differential Total Cells Counted 100 Neutrophils % (Manual) 91 % (45-75) H Lymphocytes % (Manual) 6 % (20-45) L Monocytes % (Manual) 3 % (1-10) Eosinophils % (Manual) 0 % (0-3) Basophils % (Manual) 0 % (0-2) Band Neutrophils 0 % (0-8) Platelet Estimate Adequate Platelet Morphology Normal Anisocytosis 1+ Sodium Level 140 MMOL/L (136-145) Potassium Level 3.2 MMOL/L (3.5-5.1) L Chloride Level 108 MMOL/L (98-107) H Carbon Dioxide Level 23 MMOL/L (21-32) Anion Gap 9 mmol/L (5-15) Blood Urea Nitrogen 50 mg/dL (7-18) H Creatinine 2.8 MG/DL (0.55-1.30) H Estimat Glomerular Filtration Rate 22.4 mL/min (>60) Glucose Level 129 MG/DL (74-106) H Calcium Level 7.3 MG/DL (8.5-10.1) L Phosphorus Level 3.2 MG/DL (2.5-4.9) Magnesium Level 2.0 MG/DL (1.8-2.4) Total Bilirubin 0.4 MG/DL (0.2-1.0) Aspartate Amino Transf (AST/SGOT) 45 U/L (15-37) H Alanine Aminotransferase (ALT/SGPT) 11 U/L (12-78) L Alkaline Phosphatase 64 U/L (46-116) Total Protein 4.6 G/DL (6.4-8.2) L Albumin 1.0 G/DL (3.4-5.0) L Globulin 3.6 g/dL Albumin/Globulin Ratio 0.3 (1.0-2.7) L Arterial Blood pH 7.435 (7.350-7.450) Arterial Blood Partial Pressure CO2 33.9 mmHg (35.0-45.0) L Arterial Blood Partial Pressure O2 83.7 mmHg (75.0-100.0) Arterial Blood HCO3 22.3 mmol/L (22.0-26.0) Arterial Blood Oxygen Saturation 95.7 % (95-100) Arterial Blood Base Excess -1.7 (-2-2) Michael Test Positive Plan Problems: (1) Decubitus skin ulcer Assessment & Plan: Pt presented on admission with large sacral wound. Base of wound with areas that area purple and indurated sacrococcygeal,L sacrum/L gluteus,Scattered wounds with maceration L gluteus, one wound R sacrum with Biofilm, Surrounding non-blanching erythema entire buttocks. Small dry scabbed area noted to lumbar area. Unstageable Pressure Injury L heel. Base of wound is necrotic with surrounding non-blanching erythema. Tx.plan: Apply Moisture Barrier Paste to Buttocks. Cover Sacrum, R and L gluteal cheeks with Optifoam drsgs. Change every 3 days and prn. Apply Betadine to L heel. Cover with Optifoam drsg. Change every 3 days and prn. Reposition at least every 2hours or as tolerated. Place Pillow between knees. Off-load heels with Pillow. APM/BRUNILDA Mattress overlay. DAILY ESTIMATED NEEDS: Needs based on wt loss, underweight, wound/ 59kg 30-35 kcals/kg 3814-9900 total kcals 1.25-2 g protein/kg 74-118 g total protein 25-30 mL/kg 3928-3045 total fluid mLs NUTRITION DIAGNOSIS: * Increased kcal/prot intake needs R/T wound healing, suspected recent significant wt loss as evidenced by admitted w/ wounds @ lt posterior heel, R lower back, sacrum as per photos, pending eval, suspected significant wt loss of 40lbs/ 23.7% in <5 months, currently @ 81% IBW. . * Swallowing difficulty R/T dysphagia, h/o CVA as evidenced by PEG dependent. CURRENT TF:Glucerna 1.2 @65ml/hr x24 hrs ENTERAL NUTRITION RECOMMENDATIONS: NEPRO @45ml/hr x24 hrs to provide 1080ml, 1944 kcal, 87g pro, 785ml free H2O - Rec TF change for lower K content (1145mg in Nepro @45 vs 3151mg in Glucerna 1.2 @65) - Start at 25ml/hr advance as tolerated 10ml/hr q4-6 hrs - HOB over 30 degrees - Increased H20 flush to 200ml q4 hrs ADDITIONAL RECOMMENDATIONS: 1) Calibrated bedscale wt -> per SNF: HT=59" and [id number] (10/20/19) 2) Wound healing: Add Vit C 500mg QD/ or dosing per nephro Add Osbaldo BID via PEG w/ TF order 3) Monitor lytes: monitor K trend, need for renal TF (K 5.3, 5.5) 4) NISS w/ TF (h/o DM) 5) Monitor for diarrhea, rec probiotics (2) Sepsis Assessment & Plan: 74-year-old male multi-medical comorbidities admitted for respiratory deficiency currently tachypneic, leukocytosis, malnutrition, hypoalbuminemia. Complete physical exam performed identified areas of concerned given patient's comorbidities current condition high risk for deteriorationNo active infection identified from patient's wounds and likely respiratory nature. Chest x-ray reviewed. No acute surgical intervention planned at this time Preventive measures IV antibiotics per infectious disease Okay for feeding once stable respiratory Appreciate Pulm input c diff positive on vanco blood cx noted worsening leukocytosis ID abx noted heme input noted There are increasing basilar opacities on the left noted. The heart size is normal. The pleural spaces are clear. 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
--- NOTE | 2019-11-28 16:18 | Infectious Diseases Prog Note ---
Assessment/Plan Assessment/Plan Assessment: PEA arrest> unstable SVT s/p cardioversion 11/17 Septic shock- SP Fever, recurrent; SP Leukocytosis; fluctuating; improving -11/23 u/a wbc 15-20, nit neg, leuk +2; ucx NTD Bcx NTD -11/17 u/a no pyuria; ucx neg Bcx Neg sp cx PsA (R Zosyn; S Gentamycin, levaquin, Cefepime, ceftazidime, Meropenem), P. mirabilis ([facility] S) Pneumonia Acute hypoxic resp failure- sp NRB 15L, now VDRF 11/17 - 2ry to COVID19 and superimposed bacterial PNA -11/24 CXR: Right basilar pleural effusion and likely parenchymal consolidation are unchanged sp cx MDR PSA (S Cefepime, Genta, Levaquin) -11/22 CXR: Slight increased right effusion. Right basilar infiltrate again noted. -11/19 CXR: There is been worsening of moderately consolidating right middle lobe pneumonia. -11/17 CXR: Bilateral lower lobe atelectasis/infiltrates, slightly increased. No large pleural effusions. -11/15 CXR: New/increased infiltrates at the left lateral lung base -11/11 CXR: Mild interstitial thickening is slightly improved. -11/10 CXR: Hazy basilar infiltrates left greater than right. sp cx PsA (black[place] S), P.mirabilis ([facility] S), MRSA (S Vanco CARLOS 1, bactrim; R tetracycline ) -11/10 SARS-COV2 positive UTI c/w bacteremia -u/a wbc 5-10, nit neg, leuk +1, RBC TNCT; ucx 10-20k E. faecalis (S amp, vanco) -11/10 Bcx 2/4 E. faecalis (S Vancomycin, AMP) CONS bacteremia- likely contaminant -11/10 Bcx 2/ S. 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 Will continue to follow along with you. Discussed with RN and pharm Subjective Allergies: Coded Allergies: No Known Allergies (Unverified , 09/16/19) Subjective Tm 100.1 Fio2 35% wbc improving off levophed Objective Vital Signs Last 24 Hour Vital Signs Date Time Temp Pulse Resp B/P (MAP) Pulse Ox O2 Delivery O2 Flow Rate FiO2 11/28/19 15:05 88 20 35 11/28/19 15:04 88 11/28/19 15:00 85 20 123/63 (83) 100 11/28/19 14:00 85 20 132/69 (90) 100 11/28/19 13:00 83 20 129/68 (88) 100 11/28/19 12:00 98.6 85 20 127/70 (89) 100 11/28/19 12:00 35 11/28/19 12:00 Mechanical Ventilator 11/28/19 11:37 85 11/28/19 11:05 83 20 35 11/28/19 11:00 85 20 128/68 (88) 100 11/28/19 10:00 129/68 11/28/19 10:00 86 20 129/68 (88) 100 11/28/19 10:00 100 11/28/19 09:00 87 20 129/71 (90) 100 11/28/19 08:00 35 11/28/19 08:00 Mechanical Ventilator 11/28/19 08:00 77 11/28/19 08:00 98.6 80 20 126/70 (88) 100 11/28/19 07:00 81 20 127/64 (85) 100 11/28/19 06:45 85 20 35 11/28/19 06:00 98.6 81 20 126/63 (84) 100 11/28/19 05:37 98.6 11/28/19 05:00 100.1 83 20 132/67 (88) 100 11/28/19 04:00 35 11/28/19 04:00 Mechanical Ventilator 11/28/19 04:00 84 20 132/68 (89) 100 11/28/19 04:00 84 11/28/19 03:30 83 20 35 11/28/19 03:00 97.8 84 20 137/63 (87) 100 11/28/19 02:00 93 20 100 11/28/19 02:00 93 20 117/97 (104) 100 11/28/19 01:00 82 20 124/63 (83) 100 11/28/19 00:00 Mechanical Ventilator 11/28/19 00:00 79 11/28/19 00:00 97.6 83 20 124/62 (82) 100 11/27/19 23:30 82 20 35 11/27/19 23:00 82 20 128/62 (84) 100 11/27/19 22:00 81 20 122/65 (84) 100 11/27/19 21:00 80 20 123/61 (81) 100 11/27/19 20:00 35 11/27/19 20:00 Mechanical Ventilator 11/27/19 20:00 98.0 76 19 122/62 (82) 100 11/27/19 19:36 77 11/27/19 19:30 79 20 35 11/27/19 19:00 79 20 121/61 (81) 100 11/27/19 18:00 86 20 139/112 (121) 100 11/27/19 17:00 77 20 131/64 (86) 100 Height (Feet): 6 Height (Inches): 0.00 Weight (Pounds): 187 Objective Gen: critically ill HEENT: ETT in place Lungs: no tacypnea or use of accessory muscles Neuro: lethargic Laboratory Tests Test 11/28/19 04:00 11/28/19 10:39 White Blood Count 19.9 K/UL (4.8-10.8) H Red Blood Count 2.68 M/UL (4.70-6.10) L Hemoglobin 7.6 G/DL (14.2-18.0) L Hematocrit 24.2 % (42.0-52.0) L Mean Corpuscular Volume 90 FL (80-99) Mean Corpuscular Hemoglobin 28.4 PG (27.0-31.0) Mean Corpuscular Hemoglobin Concent 31.4 G/DL (32.0-36.0) L Red Cell Distribution Width 16.3 % (11.6-14.8) H Platelet Count 289 K/UL (150-450) Mean Platelet Volume 6.9 FL (6.5-10.1) Neutrophils (%) (Auto) % (45.0-75.0) Lymphocytes (%) (Auto) % (20.0-45.0) Monocytes (%) (Auto) % (1.0-10.0) Eosinophils (%) (Auto) % (0.0-3.0) Basophils (%) (Auto) % (0.0-2.0) Differential Total Cells Counted 100 Neutrophils % (Manual) 91 % (45-75) H Lymphocytes % (Manual) 6 % (20-45) L Monocytes % (Manual) 3 % (1-10) Eosinophils % (Manual) 0 % (0-3) Basophils % (Manual) 0 % (0-2) Band Neutrophils 0 % (0-8) Platelet Estimate Adequate Platelet Morphology Normal Anisocytosis 1+ Sodium Level 140 MMOL/L (136-145) Potassium Level 3.2 MMOL/L (3.5-5.1) L Chloride Level 108 MMOL/L (98-107) H Carbon Dioxide Level 23 MMOL/L (21-32) Anion Gap 9 mmol/L (5-15) Blood Urea Nitrogen 50 mg/dL (7-18) H Creatinine 2.8 MG/DL (0.55-1.30) H Estimat Glomerular Filtration Rate 22.4 mL/min (>60) Glucose Level 129 MG/DL (74-106) H Calcium Level 7.3 MG/DL (8.5-10.1) L Phosphorus Level 3.2 MG/DL (2.5-4.9) Magnesium Level 2.0 MG/DL (1.8-2.4) Total Bilirubin 0.4 MG/DL (0.2-1.0) Aspartate Amino Transf (AST/SGOT) 45 U/L (15-37) H Alanine Aminotransferase (ALT/SGPT) 11 U/L (12-78) L Alkaline Phosphatase 64 U/L (46-116) Total Protein 4.6 G/DL (6.4-8.2) L Albumin 1.0 G/DL (3.4-5.0) L Globulin 3.6 g/dL Albumin/Globulin Ratio 0.3 (1.0-2.7) L Arterial Blood pH 7.435 (7.350-7.450) Arterial Blood Partial Pressure CO2 33.9 mmHg (35.0-45.0) L Arterial Blood Partial Pressure O2 83.7 mmHg (75.0-100.0) Arterial Blood HCO3 22.3 mmol/L (22.0-26.0) Arterial Blood Oxygen Saturation 95.7 % (95-100) Arterial Blood Base Excess -1.7 (-2-2) Michael Test Positive Current Medications Medications (Trade) Dose Ordered Sig/Leonor Route PRN Reason Start Time Stop Time Status Last Admin Dose Admin Acetaminophen (Tylenol) 650 mg Q4H PRN GT fever 11/18/19 03:00 12/11/19 02:59 11/28/19 05:07 Allopurinol (allopurinoL) 300 mg DAILY GT 11/21/19 09:00 12/21/19 08:59 11/28/19 08:17 Calcium Gluconate 1 gm/Sodium Chloride 120 ml @ 240 mls/hr Q12HR IVPB 11/22/19 09:00 12/22/19 08:59 11/28/19 08:16 Cefepime HCl 2 gm/ Dextrose 55 ml @ 110 mls/hr Q24H IVPB 11/27/19 21:00 12/04/19 20:59 11/27/19 20:37 Chlorhexidine Gluconate (Danielle-Hex 2%) 1 applic DAILY@2000 TOPIC 11/18/19 20:00 02/16/20 19:59 11/27/19 20:36 Dextrose/Sodium Chloride 1,000 ml @ 50 mls/hr Q20H IV 11/22/19 10:15 12/20/19 10:14 11/28/19 05:08 Heparin Sodium (Porcine) (Heparin 5000 units/ml) 5,000 units EVERY 12 HOURS SUBQ 11/18/19 09:00 12/26/19 08:59 11/28/19 08:17 Midodrine (Pro-Amatine) 10 mg Q8HR PRN ORAL BP below 100 systolic 11/27/19 10:00 02/20/20 13:59 Norepinephrine Bitartrate 8 mg/ Dextrose 558 ml @ 0 mls/hr Q24H IV 11/18/19 10:00 12/18/19 09:59 11/23/19 22:22 Ondansetron HCl (Zofran) 4 mg Q6H PRN IVP Nausea & Vomiting 11/18/19 03:00 12/11/19 08:59 Sevelamer Carbonate (Renvela) 800 mg Q12HR NG 11/27/19 21:00 02/20/20 07:59 11/28/19 08:17 Vancomycin HCl (Firvanq) 125 mg FOUR TIMES A DAY NG 11/28/19 13:00 12/05/19 23:59 11/28/19 13:26 Shannon Mark M.D. Nov 28, 2019 16:18
[2019-11-28] MEDS ORDERED: NS 275ml ONE ×2 (17:30→17:31)
[2019-11-28] MEDS ORDERED: Tubing IV Secondary IV ONE ×2 (17:30→17:31)
[2019-11-28] MEDS ORDERED: D5NS 1000ml IV ONE (17:30)
[2019-11-28] MEDS: Dyna-Hex 2% Top Sol 2oz TOPIC SCH (20:19)
[2019-11-28] MEDS: Cefepime 2gm in D5W 55ml IVPB SCH (20:28)
[2019-11-29] VITALS (31 sets, daily range): BP systolic 89–145; BP diastolic 45–89
[2019-11-29] MEDS: D5NS 1,000 ML IV SCH ×2 (01:56→20:57)
[2019-11-29 05:49] LABS: HEMATOCRIT 22.9 % (42.0-52.0); MEAN CORPUSCULAR VOLUME 91 FL (80-99); PLATELET COUNT 232 K/UL (150-450); RED BLOOD COUNT 2.51 M/UL (4.70-6.10); RED CELL DISTRIBUTION WIDTH 16.4 % (11.6-14.8); WHITE BLOOD COUNT 18.2 K/UL (4.8-10.8)
[2019-11-29 06:07] LABS: ALANINE AMINOTRANSFERASE 12 U/L (12-78); ALBUMIN 0.9 G/DL (3.4-5.0); ALBUMIN/GLOBULIN RATIO 0.2 (1.0-2.7); ALKALINE PHOSPHATASE 60 U/L (46-116); ANION GAP 10 mmol/L (5-15); ASPARTATE AMINO TRANSFERASE 40 U/L (15-37); BILIRUBIN,TOTAL 0.4 MG/DL (0.2-1.0); BLOOD UREA NITROGEN 57 mg/dL (7-18); CALCIUM 7.5 MG/DL (8.5-10.1); CARBON DIOXIDE 23 MMOL/L (21-32); CHLORIDE 110 MMOL/L (98-107); CREATININE 2.8 MG/DL (0.55-1.30); PHOSPHORUS 3.6 MG/DL (2.5-4.9); POTASSIUM 3.3 MMOL/L (3.5-5.1); SODIUM 143 MMOL/L (136-145)
--- NOTE | 2019-11-29 07:29 | Hematology/Onc Progress Note ---
Assessment/Plan Assessment/Plan Assessment and Recs # Leukocytosis/elevated white blood cell count, unspecified likely related to underlying stress reaction, smoking v more likely infection, in this case with pna and COVID19++++++++ --> have reviewed peripheral smear and bandemia/neutrophilia noted --> continue antibiotics if they have been started by ID team --> monitor for resolution --> wbc 35k-->31.2-->25-->27.4 -->25-->20.7-->18.6 -->27-->19.7 -->20->20->18.2 --> abx/antivral: remdesivir/vanc/cefepime-->vanc/flagyl/monique-->linezolid/monique-- >cefepime/zyvox/vanc ->vanc/cefepime # Thrombocytosis - if plt count >400k, most usually is a reactive process and will improve once exacerbant removed as well --> in this case due to underlying infection --> plt trend 646k-->672 -->547-->372-->345-->149 -->246-->232 --> smear is noted # Anemia of chronic disease due to underlying chronic medical issues, multifactorial v Gi bleed --> Anemia workup has been ordered, rule out gi bleed -> ferritin 1339 --> No evidence of hemolysis is noted, peripheral smear has been reviewed. --> Hgb goal >7. Transfuse prn. --> Epogen or iron at this time is not particularly indicated --> Medications have been reviewed --> low threshold for gi evaluation in case has occult + --> bone marrow biopsy is not indicated given the other more likely causes --> hgb 9.5-->9.8->8.8-->8.6-->7.5-->9.5-->7.5 -->9.1-->8-->7.6-->7 --> 1 unit prbc 8 --> ddimer remains elevated currently # Acute hypoxic resp failure- 2ry to COVID19 --> vent+ --> per id and pulm recs --> breathing treatments and rep cxr --> 11/15 cxr: New/increased infiltrates at the left lateral lung base # UTI c/w bacteremia --> abx per id # Cdiff colitis --> abx # MONICA, improving # Deep tissue injury (sacrum, L heel) # HTN # Dm2 # MDD # Dysphagia s/p GT # malnutrition # decubitus ulcer # non verbal # 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 Greatly appreciate consultation. Subjective Allergies: Coded Allergies: No Known Allergies (Unverified , 09/16/19) Subjective 11/15 tele, no acute events, cxr and labs reviewed, nrb 15l, remdesivir 11/16 remains on iso, breathing is improved, no night sweats 11/17 remains with fever, cooling blankets, labs noted, no bleed hgb 8.8 11/19 icu, no acute events, vent, levo gtt, meds and labs reviewed 11/20 labs noted, no bleeding, in icu, hgb 7.5, to get one unit prbc, wbc elev 25 11/21 non verbal, s/p blood, hgb improved to 9.5, vent, iv abx 11/22 icu, no new changes, labs reviewed, levo gtt 11/23 labs are noted, no bleeding, in icu, on levo, wbc 27, hgb 9 11/24 nonverbal, no new changes, afebrile 11/26 nonverbal, in icu, on vent, wbc 20, hgb 8, no bleeding 11/[address], vent, lavonne as well, labs reviewed 11/28 nonverbal, icu, hbg 7, iv abx, Objective Objective Current Medications Medications (Trade) Dose Ordered Sig/Leonor Route PRN Reason Start Time Stop Time Status Last Admin Dose Admin Acetaminophen (Tylenol) 650 mg Q4H PRN GT fever 11/18/19 03:00 12/11/19 02:59 11/28/19 05:07 Allopurinol (allopurinoL) 300 mg DAILY GT 11/21/19 09:00 12/21/19 08:59 11/28/19 08:17 Calcium Gluconate 1 gm/Sodium Chloride 120 ml @ 240 mls/hr Q12HR IVPB 11/22/19 09:00 12/22/19 08:59 11/28/19 20:27 Cefepime HCl 2 gm/ Dextrose 55 ml @ 110 mls/hr Q24H IVPB 11/27/19 21:00 12/04/19 20:59 11/28/19 20:28 Chlorhexidine Gluconate (Danielle-Hex 2%) 1 applic DAILY@2000 TOPIC 11/18/19 20:00 02/16/20 19:59 11/28/19 20:19 Dextrose/Sodium Chloride 1,000 ml @ 50 mls/hr Q20H IV 11/22/19 10:15 12/20/19 10:14 11/29/19 01:56 Heparin Sodium (Porcine) (Heparin 5000 units/ml) 5,000 units EVERY 12 HOURS SUBQ 11/18/19 09:00 12/26/19 08:59 11/28/19 20:29 Midodrine (Pro-Amatine) 10 mg Q8HR PRN ORAL BP below 100 systolic 11/27/19 10:00 02/20/20 13:59 Norepinephrine Bitartrate 8 mg/ Dextrose 558 ml @ 0 mls/hr Q24H IV 11/18/19 10:00 12/18/19 09:59 11/23/19 22:22 Ondansetron HCl (Zofran) 4 mg Q6H PRN IVP Nausea & Vomiting 11/18/19 03:00 12/11/19 08:59 Sevelamer Carbonate (Renvela) 800 mg Q12HR NG 11/27/19 21:00 02/20/20 07:59 11/28/19 20:28 Vancomycin HCl (Firvanq) 125 mg FOUR TIMES A DAY NG 11/28/19 13:00 12/05/19 23:59 11/28/19 20:28 Last 24 Hour Vital Signs Date Time Temp Pulse Resp B/P (MAP) Pulse Ox O2 Delivery O2 Flow Rate FiO2 11/29/19 07:00 80 21 115/53 (73) 100 11/29/19 06:00 83 22 112/51 (71) 100 11/29/19 05:00 93 12 133/89 (104) 98 11/29/19 04:00 Mechanical Ventilator 11/29/19 04:00 97.9 82 20 119/64 (82) 100 11/29/19 04:00 35 11/29/19 03:19 104 11/29/19 03:18 86 11/29/19 03:00 86 20 114/63 (80) 100 11/29/19 02:51 85 20 35 11/29/19 02:00 88 20 113/67 (82) 100 11/29/19 01:00 87 20 118/60 (79) 100 11/29/19 00:30 87 21 116/65 (82) 100 11/29/19 00:00 35 11/29/19 00:00 Mechanical Ventilator 11/29/19 00:00 87 11/29/19 00:00 98.4 87 21 113/62 (79) 100 11/28/19 23:15 88 20 35 11/28/19 23:00 88 21 121/64 (83) 100 11/28/19 22:00 89 21 121/61 (81) 100 11/28/19 21:00 91 21 130/66 (87) 100 11/28/19 20:00 35 11/28/19 20:00 Mechanical Ventilator 11/28/19 20:00 98.4 92 21 115/59 (77) 100 11/28/19 19:47 91 11/28/19 19:20 91 21 35 11/28/19 19:00 97 22 105/57 (73) 100 11/28/19 18:00 92 22 110/60 (77) 100 11/28/19 17:00 91 21 113/63 (80) 100 11/28/19 16:00 98.5 89 22 116/61 (79) 100 11/28/19 16:00 Mechanical Ventilator 11/28/19 16:00 35 11/28/19 15:05 88 20 35 11/28/19 15:04 88 11/28/19 15:00 85 20 123/63 (83) 100 11/28/19 14:00 85 20 132/69 (90) 100 11/28/19 13:00 83 20 129/68 (88) 100 11/28/19 12:00 98.6 85 20 127/70 (89) 100 11/28/19 12:00 35 11/28/19 12:00 Mechanical Ventilator 6/15/20 11:37 85 11/28/19 11:05 83 20 35 11/28/19 11:00 85 20 128/68 (88) 100 11/28/19 10:00 129/68 11/28/19 10:00 86 20 129/68 (88) 100 11/28/19 10:00 100 11/28/19 09:00 87 20 129/71 (90) 100 11/28/19 08:00 35 11/28/19 08:00 Mechanical Ventilator 11/28/19 08:00 77 11/28/19 08:00 98.6 80 20 126/70 (88) 100 11/28/19 07:00 81 20 127/64 (85) 100 11/28/19 06:45 85 20 35 11/28/19 06:00 98.6 81 20 126/63 (84) 100 11/28/19 05:37 98.6 11/28/19 05:00 100.1 83 20 132/67 (88) 100 11/28/19 04:00 35 11/28/19 04:00 Mechanical Ventilator 11/28/19 04:00 84 20 132/68 (89) 100 11/28/19 04:00 84 11/28/19 03:30 83 20 35 11/28/19 03:00 97.8 84 20 137/63 (87) 100 11/28/19 02:00 93 20 100 11/28/19 02:00 93 20 117/97 (104) 100 11/28/19 01:00 82 20 124/63 (83) 100 11/28/19 00:00 Mechanical Ventilator 11/28/19 00:00 79 11/28/19 00:00 97.6 83 20 124/62 (82) 100 11/27/19 23:30 82 20 35 11/27/19 23:00 82 20 128/62 (84) 100 11/27/19 22:00 81 20 122/65 (84) 100 11/27/19 21:00 80 20 123/61 (81) 100 11/27/19 20:00 35 11/27/19 20:00 Mechanical Ventilator 11/27/19 20:00 98.0 76 19 122/62 (82) 100 11/27/19 19:36 77 11/27/19 19:30 79 20 35 11/27/19 19:00 79 20 121/61 (81) 100 11/27/19 18:00 86 20 139/112 (121) 100 11/27/19 17:00 77 20 131/64 (86) 100 11/27/19 16:00 35 11/27/19 16:00 Mechanical Ventilator 11/27/19 16:00 78 11/27/19 16:00 97.5 75 20 130/64 (86) 100 11/27/19 15:16 76 21 35 11/27/19 15:00 76 20 134/66 (88) 100 11/27/19 14:00 76 20 136/63 (87) 100 11/27/19 13:00 77 20 136/64 (88) 100 11/27/19 12:00 98.2 77 20 128/70 (89) 100 11/27/19 12:00 35 11/27/19 12:00 76 11/27/19 12:00 Mechanical Ventilator 11/27/19 11:01 74 20 35 11/27/19 11:00 76 20 133/68 (89) 100 11/27/19 10:00 72 20 135/64 (87) 100 11/27/19 09:57 137/57 11/27/19 09:00 73 20 137/57 (83) 100 11/27/19 08:00 97.9 72 20 133/56 (81) 100 11/27/19 08:00 Mechanical Ventilator 11/27/19 08:00 35 11/27/19 08:00 72 Intake and Output 11/28/19 11/29/19 19:00 07:00 Intake Total 1340 ml 1255 ml Output Total 325 ml 170 ml Balance 1015 ml 1085 ml IV Total 720 ml 775 ml Tube Feeding 420 ml 420 ml Other 200 ml 60 ml Output Urine Total 200 ml 70 ml Stool Total 125 ml 100 ml Labs Test 11/27/19 04:30 11/28/19 04:00 11/28/19 10:39 11/29/19 04:30 White Blood Count 19.9 K/UL (4.8-10.8) 19.9 K/UL (4.8-10.8) 18.2 K/UL (4.8-10.8) Red Blood Count 2.87 M/UL (4.70-6.10) 2.68 M/UL (4.70-6.10) 2.51 M/UL (4.70-6.10) Hemoglobin 8.0 G/DL (14.2-18.0) 7.6 G/DL (14.2-18.0) 7.0 G/DL (14.2-18.0) Hematocrit 26.0 % (42.0-52.0) 24.2 % (42.0-52.0) 22.9 % (42.0-52.0) Mean Corpuscular Volume 91 FL (80-99) 90 FL (80-99) 91 FL (80-99) Mean Corpuscular Hemoglobin 28.0 PG (27.0-31.0) 28.4 PG (27.0-31.0) 27.9 PG (27.0-31.0) Mean Corpuscular Hemoglobin Concent 30.9 G/DL (32.0-36.0) 31.4 G/DL (32.0-36.0) 30.5 G/DL (32.0-36.0) Red Cell Distribution Width 16.2 % (11.6-14.8) 16.3 % (11.6-14.8) 16.4 % (11.6-14.8) Platelet Count 281 K/UL (150-450) 289 K/UL (150-450) 232 K/UL (150-450) Mean Platelet Volume 6.6 FL (6.5-10.1) 6.9 FL (6.5-10.1) 7.1 FL (6.5-10.1) Neutrophils (%) (Auto) % (45.0-75.0) % (45.0-75.0) % (45.0-75.0) Lymphocytes (%) (Auto) % (20.0-45.0) % (20.0-45.0) % (20.0-45.0) Monocytes (%) (Auto) % (1.0-10.0) % (1.0-10.0) % (1.0-10.0) Eosinophils (%) (Auto) % (0.0-3.0) % (0.0-3.0) % (0.0-3.0) Basophils (%) (Auto) % (0.0-2.0) % (0.0-2.0) % (0.0-2.0) Differential Total Cells Counted 100 100 Neutrophils % (Manual) 86 % (45-75) 91 % (45-75) Lymphocytes % (Manual) 13 % (20-45) 6 % (20-45) Monocytes % (Manual) 1 % (1-10) 3 % (1-10) Eosinophils % (Manual) 0 % (0-3) 0 % (0-3) Basophils % (Manual) 0 % (0-2) 0 % (0-2) Band Neutrophils 0 % (0-8) 0 % (0-8) Platelet Estimate Adequate Adequate Platelet Morphology Normal Normal Anisocytosis 1+ 1+ Sodium Level 143 MMOL/L (136-145) 140 MMOL/L (136-145) 143 MMOL/L (136-145) Potassium Level 3.6 MMOL/L (3.5-5.1) 3.2 MMOL/L (3.5-5.1) 3.3 MMOL/L (3.5-5.1) Chloride Level 108 MMOL/L (98-107) 108 MMOL/L (98-107) 110 MMOL/L (98-107) Carbon Dioxide Level 23 MMOL/L (21-32) 23 MMOL/L (21-32) 23 MMOL/L (21-32) Anion Gap 12 mmol/L (5-15) 9 mmol/L (5-15) 10 mmol/L (5-15) Blood Urea Nitrogen 47 mg/dL (7-18) 50 mg/dL (7-18) 57 mg/dL (7-18) Creatinine 2.5 MG/DL (0.55-1.30) 2.8 MG/DL (0.55-1.30) 2.8 MG/DL (0.55-1.30) Estimat Glomerular Filtration Rate 25.5 mL/min (>60) 22.4 mL/min (>60) 22.4 mL/min (>60) Glucose Level 129 MG/DL (74-106) 129 MG/DL (74-106) 120 MG/DL (74-106) Uric Acid 5.5 MG/DL (2.6-7.2) 5.8 MG/DL (2.6-7.2) Calcium Level 6.9 MG/DL (8.5-10.1) 7.3 MG/DL (8.5-10.1) 7.5 MG/DL (8.5-10.1) Phosphorus Level 3.6 MG/DL (2.5-4.9) 3.2 MG/DL (2.5-4.9) 3.6 MG/DL (2.5-4.9) Magnesium Level 2.2 MG/DL (1.8-2.4) 2.0 MG/DL (1.8-2.4) 2.1 MG/DL (1.8-2.4) Total Bilirubin 0.4 MG/DL (0.2-1.0) 0.4 MG/DL (0.2-1.0) 0.4 MG/DL (0.2-1.0) Aspartate Amino Transf (AST/SGOT) 61 U/L (15-37) 45 U/L (15-37) 40 U/L (15-37) Alanine Aminotransferase (ALT/SGPT) 9 U/L (12-78) 11 U/L (12-78) 12 U/L (12-78) Alkaline Phosphatase 64 U/L (46-116) 64 U/L (46-116) 60 U/L (46-116) C-Reactive Protein, Quantitative 2.2 mg/dL (0.00-0.90) 6.4 mg/dL (0.00-0.90) Pro-B-Type Natriuretic Peptide 7126 pg/mL (0-125) 6280 pg/mL (0-125) Total Protein 4.2 G/DL (6.4-8.2) 4.6 G/DL (6.4-8.2) 4.5 G/DL (6.4-8.2) Albumin 1.3 G/DL (3.4-5.0) 1.0 G/DL (3.4-5.0) 0.9 G/DL (3.4-5.0) Globulin 2.9 g/dL 3.6 g/dL 3.6 g/dL Albumin/Globulin Ratio 0.4 (1.0-2.7) 0.3 (1.0-2.7) 0.2 (1.0-2.7) Arterial Blood pH 7.435 (7.350-7.450) Arterial Blood Partial Pressure CO2 33.9 mmHg (35.0-45.0) Arterial Blood Partial Pressure O2 83.7 mmHg (75.0-100.0) Arterial Blood HCO3 22.3 mmol/L (22.0-26.0) Arterial Blood Oxygen Saturation 95.7 % (95-100) Arterial Blood Base Excess -1.7 (-2-2) Michael Test Positive Height (Feet): 6 Height (Inches): 0.00 Weight (Pounds): 183 Objective PE General: alert, chronically Ill Heent: nc, at Neck: full range of motion, supple, no meningismus Respiratory: chest non-tender, decreased breath sounds, crackles, vent++ Cardiovascular: no murmur, tachycardia Gastrointestinal: normal bowel sounds, non tender,+peg Musculoskeletal: back normal, normal range of motion, gait/station normal Neurologic: no pronator Deng Flowers MD Nov 29, 2019 07:29
[2019-11-29] MEDS: Renvela 800mg Pkt NG SCH (09:18)
[2019-11-29] MEDS: Vancomycin oral 125mg/2.5ml NG SCH ×2 (09:19→12:18)
[2019-11-29] MEDS: Calcium Gluconate 10% 1 GM in NS 110 ML IVPB SCH ×2 (09:19→20:56)
[2019-11-29] MEDS: Heparin 5000 units/ml inj SUBQ SCH ×2 (09:20→20:57)
[2019-11-29] MEDS: Norepinephrine Bitartrate 8 MG in D5W 500ml 550 ML IV SCH (09:21)
--- NOTE | 2019-11-29 10:22 | Pulmonolgy Critical Care Note ---
Critical Care - Asmt/Plan Problems: (1) Acute respiratory failure (2) Cardiac arrest (3) Bacteremia Assessment & Plan: enterocococus fecalis in blood. Proteus and Pseudomonas in sputum. (4) 2019 novel coronavirus disease (COVID-19) (5) ARF (acute renal failure) (6) Aspiration pneumonia (7) Ventricular tachyarrhythmia (8) DM (diabetes mellitus) Respiratory: monitor respiratory rate, adjust FIO2, CXR Cardiac: continue to monitor HR/BP Renal: F/U I&O, keep IV fluid, check electrolytes Infectious Disease: check cultures Gastrointestinal: continue feedings/current rate Endocrine: monitor blood sugar, check HgA1C Neurologic: PRN Ativan, keep patient comfortable Affect: PRN ativan Prophylaxis: Protonix Notes Reviewed: continuous pickling line pickler 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, consultants, complex case managermanager professional development - Objective Last 24 Hour Vital Signs Date Time Temp Pulse Resp B/P (MAP) Pulse Ox O2 Delivery O2 Flow Rate FiO2 11/29/19 10:00 96 20 112/56 (74) 98 96 11/29/19 09:30 79 21 107/55 (72) 100 79 11/29/19 09:21 100/50 11/29/19 09:00 80 21 100/50 (67) 100 80 11/29/19 08:30 80 20 104/56 (72) 100 80 11/29/19 08:15 79 21 35 11/29/19 08:00 35 11/29/19 08:00 Mechanical Ventilator 11/29/19 08:00 97.9 81 22 110/58 (75) 100 81 11/29/19 07:00 80 21 115/53 (73) 100 11/29/19 06:00 83 22 112/51 (71) 100 11/29/19 05:00 93 12 133/89 (104) 98 11/29/19 04:00 Mechanical Ventilator 11/29/19 04:00 97.9 82 20 119/64 (82) 100 11/29/19 04:00 35 11/29/19 03:19 104 11/29/19 03:18 86 11/29/19 03:00 86 20 114/63 (80) 100 11/29/19 02:51 85 20 35 11/29/19 02:00 88 20 113/67 (82) 100 11/29/19 01:00 87 20 118/60 (79) 100 11/29/19 00:30 87 21 116/65 (82) 100 11/29/19 00:00 35 11/29/19 00:00 Mechanical Ventilator 11/29/19 00:00 87 11/29/19 00:00 98.4 87 21 113/62 (79) 100 11/28/19 23:15 88 20 35 11/28/19 23:00 88 21 121/64 (83) 100 11/28/19 22:00 89 21 121/61 (81) 100 11/28/19 21:00 91 21 130/66 (87) 100 11/28/19 20:00 35 11/28/19 20:00 Mechanical Ventilator 11/28/19 20:00 98.4 92 21 115/59 (77) 100 11/28/19 19:47 91 11/28/19 19:20 91 21 35 11/28/19 19:00 97 22 105/57 (73) 100 11/28/19 18:00 92 22 110/60 (77) 100 11/28/19 17:00 91 21 113/63 (80) 100 11/28/19 16:00 98.5 89 22 116/61 (79) 100 11/28/19 16:00 Mechanical Ventilator 11/28/19 16:00 35 11/28/19 15:05 88 20 35 11/28/19 15:04 88 11/28/19 15:00 85 20 123/63 (83) 100 11/28/19 14:00 85 20 132/69 (90) 100 11/28/19 13:00 83 20 129/68 (88) 100 11/28/19 12:00 98.6 85 20 127/70 (89) 100 11/28/19 12:00 35 11/28/19 12:00 Mechanical Ventilator 11/28/19 11:37 85 11/28/19 11:05 83 20 35 11/28/19 11:00 85 20 128/68 (88) 100 Status: awake Condition: critical HEENT: atraumatic Lungs: clear, chest wall tender Heart: HR/BP stable Abdomen: soft Extremities: no C/C/E Critical Care - Subjective ROS Limited/Unobtainable: Yes EKG Rhythm: Sinus Rhythm FI02: 35 Vent Support Breath Rate: 20 Vent Support Mode: AC Vent Tidal Volume: 550 Sputum Amount: Small PEEP: 5.0 PIP: 30 Tube Feeding Amount: 35 I&O: Intake and Output 11/28/19 11/29/19 19:00 07:00 Intake Total 1340 ml 1255 ml Output Total 325 ml 170 ml Balance 1015 ml 1085 ml IV Total 720 ml 775 ml Tube Feeding 420 ml 420 ml Other 200 ml 60 ml Output Urine Total 200 ml 70 ml Stool Total 125 ml 100 ml ET-Tube: 8.0 ET Position: 23 Labs: Laboratory Tests Test 11/28/19 10:39 11/29/19 04:30 Arterial Blood pH 7.435 (7.350-7.450) Arterial Blood Partial Pressure CO2 33.9 mmHg (35.0-45.0) L Arterial Blood Partial Pressure O2 83.7 mmHg (75.0-100.0) Arterial Blood HCO3 22.3 mmol/L (22.0-26.0) Arterial Blood Oxygen Saturation 95.7 % (95-100) Arterial Blood Base Excess -1.7 (-2-2) Michael Test Positive White Blood Count 18.2 K/UL (4.8-10.8) H Red Blood Count 2.51 M/UL (4.70-6.10) L Hemoglobin 7.0 G/DL (14.2-18.0) L Hematocrit 22.9 % (42.0-52.0) L Mean Corpuscular Volume 91 FL (80-99) Mean Corpuscular Hemoglobin 27.9 PG (27.0-31.0) Mean Corpuscular Hemoglobin Concent 30.5 G/DL (32.0-36.0) L Red Cell Distribution Width 16.4 % (11.6-14.8) H Platelet Count 232 K/UL (150-450) Mean Platelet Volume 7.1 FL (6.5-10.1) Neutrophils (%) (Auto) % (45.0-75.0) Lymphocytes (%) (Auto) % (20.0-45.0) Monocytes (%) (Auto) % (1.0-10.0) Eosinophils (%) (Auto) % (0.0-3.0) Basophils (%) (Auto) % (0.0-2.0) Differential Total Cells Counted 100 Neutrophils % (Manual) 95 % (45-75) H Lymphocytes % (Manual) 2 % (20-45) L Monocytes % (Manual) 3 % (1-10) Eosinophils % (Manual) 0 % (0-3) Basophils % (Manual) 0 % (0-2) Band Neutrophils 0 % (0-8) Platelet Estimate Adequate Platelet Morphology Normal Hypochromasia 3+ Anisocytosis 1+ Sodium Level 143 MMOL/L (136-145) Potassium Level 3.3 MMOL/L (3.5-5.1) L Chloride Level 110 MMOL/L (98-107) H Carbon Dioxide Level 23 MMOL/L (21-32) Anion Gap 10 mmol/L (5-15) Blood Urea Nitrogen 57 mg/dL (7-18) H Creatinine 2.8 MG/DL (0.55-1.30) H Estimat Glomerular Filtration Rate 22.4 mL/min (>60) Glucose Level 120 MG/DL (74-106) H Uric Acid 5.8 MG/DL (2.6-7.2) Calcium Level 7.5 MG/DL (8.5-10.1) L Phosphorus Level 3.6 MG/DL (2.5-4.9) Magnesium Level 2.1 MG/DL (1.8-2.4) Total Bilirubin 0.4 MG/DL (0.2-1.0) Aspartate Amino Transf (AST/SGOT) 40 U/L (15-37) H Alanine Aminotransferase (ALT/SGPT) 12 U/L (12-78) Alkaline Phosphatase 60 U/L (46-116) C-Reactive Protein, Quantitative 6.4 mg/dL (0.00-0.90) H Pro-B-Type Natriuretic Peptide 6280 pg/mL (0-125) H Total Protein 4.5 G/DL (6.4-8.2) L Albumin 0.9 G/DL (3.4-5.0) L Globulin 3.6 g/dL Albumin/Globulin Ratio 0.2 (1.0-2.7) L Ayana Ndiaye MD Nov 29, 2019 10:22
--- NOTE | 2019-11-29 12:52 | Diagnostic Imaging Report ---
Procedure: XRAY Chest 1v Reason for study: Reason For Exam: [id number] Comparison films: 11/25/2019. FINDINGS: Endotracheal tube and right central venous catheter remain in place. Vascularity is normal. There is slightly worsened alveolar infiltrates particularly in the left upper lung. Cardiac and mediastinal silhouette are within normal limits. Right effusion unchanged. The bony thorax appear unremarkable. IMPRESSION: Slight increased alveolar infiltrates.
--- NOTE | 2019-11-29 13:11 | Nephrology Progress Note ---
Assessment/Plan Problem List: (1) ARF (acute renal failure) (2) Hyperkalemia (3) DM (diabetes mellitus) (4) Suspected COVID-19 virus infection (5) Sepsis (6) Severe malnutrition Assessment: Severe hypoalbuminemia Assessment his 74-year-old male with multiple Multiple medical problem presents with respiratory symptoms and diarrhea Renal failure most likely prerenal azotemia secondary to dehydration Hyperkalemia on presentation also secondary to dehydration Sepsis pneumonia hypoxia UTI Anemia History of hypertension History of diabetes mellitus Suspected COVID-19 virus infection Hypoalbuminemia Plan C. difficile positive COVID-19 detected November 28: Serum creatinine unchanged. Off pressors. Potassium supplement intravenously ordered. Discussed with RN Cristina. No need for dialysis today. Continue to monitor renal parameters. Change midodrine from PRN to scheduled every 8 hours. November 27: Labs reviewed. No dialysis today. Discussed with RN. Potassium supplement given. Continue to monitor renal parameters. Continue per consultants. November 26: Lab reviewed. Remains full code. Remains intubated. Midodrin changed to PRN. Electrolytes acceptable. Will monitor renal parameters and urine output and dialyze as needed. November 25: Dialyzed yesterday. Lab reviewed. Remains full code. Remains intubated on ventilator. On minimal dose of pressors. 20 mEq potassium chloride IV ordered for low potassium level. November 24: Patient remains intubated. Due for dialysis today. Labs reviewed. Continues to be full code. November 23: Patient was dialyzed yesterday. Labs reviewed. Status quo. Remains full code. Will arrange for dialysis tomorrow. November 22: Patient in ICU. Intubated on ventilator. On low-dose pressors. Urine output labile. Serum creatinine rising. Patient developing acute renal failure. Need urgent dialysis treatment. Will arrange for placement of non- tunneled dialysis catheter as soon as possible. RN states that no family member or next of kin could be contacted at this time. Due to the urgency of the problem and the patient being full code will proceed with placement of dialysis catheter and dialysis treatment as soon as possible. November 21: Patient continues to do poorly. Discussed with RN. Started on Midodrin for BP support. Nephro feeding started. Phosphorus binders started. IV calcium ordered. Continue to monitor renal parameters and urine output. Continue per consultants. Patient remains full code. Per orders. November 20: Serum creatinine continuing to rise. Remains of 100 cc an hour IV fluid. Urine output remains low. Blood pressure also borderline low, on pressors. Continue per consultants. Continue to monitor renal parameters and urine output. Continue to avoid nephrotoxic's. Further deterioration of renal function may lead to dialysis treatment. Will discuss with PMD. November 19: Serum creatinine rising. Urine output decreasing. Will change to IV, D5 normal saline. Will give albumin bolus followed by Lasix 40 mg IV push. Continue to monitor renal parameters and urine output. Continue to avoid nephrotoxic medications as possible. Today's vancomycin level was 22. November 18: Serum creatinine rising. Continues to be full code. Continues to be intubated on ventilator. Remains on IV fluids. Vancomycin levels per pharmacy. Prognosis poor due to sepsis. November 17: Intubated on ventilator in ICU. Will continue half-normal saline 100 cc an hour. Continue per pulmonary and ID. Prognosis poor. Continue to monitor renal parameters. Hydrate with half-normal saline, serum creatinine now at its lowest today. monitor electrolytes Will change the feeding to Nepro and monitor her potassium and other electrolytes Continue per ID Keep the blood pressure and blood sugar in check Monitor renal parameters Previously: Urine studies Monitor intake and output Cultures including stool for C. difficile Per orders Patient's CODE STATUS is full Subjective ROS Limited/Unobtainable: Yes Objective Objective Last 24 Hour Vital Signs Date Time Temp Pulse Resp B/P (MAP) Pulse Ox O2 Delivery O2 Flow Rate FiO2 11/29/19 12:00 35 11/29/19 11:00 94 21 89/52 (64) 100 94 11/29/19 10:20 93 21 35 35 11/29/19 10:00 96 20 112/56 (74) 98 96 11/29/19 09:30 79 21 107/55 (72) 100 79 11/29/19 09:21 100/50 11/29/19 09:00 80 21 100/50 (67) 100 80 11/29/19 08:30 80 20 104/56 (72) 100 80 11/29/19 08:15 79 21 35 11/29/19 08:00 35 11/29/19 08:00 Mechanical Ventilator 11/29/19 08:00 97.9 81 22 110/58 (75) 100 81 11/29/19 07:00 80 21 115/53 (73) 100 11/29/19 06:00 83 22 112/51 (71) 100 11/29/19 05:00 93 12 133/89 (104) 98 11/29/19 04:00 Mechanical Ventilator 11/29/19 04:00 97.9 82 20 119/64 (82) 100 11/29/19 04:00 35 11/29/19 03:19 104 11/29/19 03:18 86 11/29/19 03:00 86 20 114/63 (80) 100 11/29/19 02:51 85 20 35 11/29/19 02:00 88 20 113/67 (82) 100 11/29/19 01:00 87 20 118/60 (79) 100 11/29/19 00:30 87 21 116/65 (82) 100 11/29/19 00:00 35 11/29/19 00:00 Mechanical Ventilator 11/29/19 00:00 87 11/29/19 00:00 98.4 87 21 113/62 (79) 100 11/28/19 23:15 88 20 35 11/28/19 23:00 88 21 121/64 (83) 100 11/28/19 22:00 89 21 121/61 (81) 100 11/28/19 21:00 91 21 130/66 (87) 100 11/28/19 20:00 35 11/28/19 20:00 Mechanical Ventilator 11/28/19 20:00 98.4 92 21 115/59 (77) 100 11/28/19 19:47 91 11/28/19 19:20 91 21 35 11/28/19 19:00 97 22 105/57 (73) 100 11/28/19 18:00 92 22 110/60 (77) 100 11/28/19 17:00 91 21 113/63 (80) 100 11/28/19 16:00 98.5 89 22 116/61 (79) 100 11/28/19 16:00 Mechanical Ventilator 11/28/19 16:00 35 11/28/19 15:05 88 20 35 11/28/19 15:04 88 11/28/19 15:00 85 20 123/63 (83) 100 11/28/19 14:00 85 20 132/69 (90) 100 Intake and Output 11/28/19 11/29/19 19:00 07:00 Intake Total 1340 ml 1255 ml Output Total 325 ml 170 ml Balance 1015 ml 1085 ml IV Total 720 ml 775 ml Tube Feeding 420 ml 420 ml Other 200 ml 60 ml Output Urine Total 200 ml 70 ml Stool Total 125 ml 100 ml Laboratory Tests 11/29/19 04:30: White Blood Count 18.2H, Red Blood Count 2.51L, Hemoglobin 7.0L, Hematocrit 22.9L, Mean Corpuscular Volume 91, Mean Corpuscular Hemoglobin 27.9, Mean Corpuscular Hemoglobin Concent 30.5L, Red Cell Distribution Width 16.4H, Platelet Count 232, Mean Platelet Volume 7.1, Neutrophils (%) (Auto) , Lymphocytes (%) (Auto) , Monocytes (%) (Auto) , Eosinophils (%) (Auto) , Basophils (%) (Auto) , Differential Total Cells Counted 100, Neutrophils % ( Manual) 95H, Lymphocytes % (Manual) 2L, Monocytes % (Manual) 3, Eosinophils % ( Manual) 0, Basophils % (Manual) 0, Band Neutrophils 0, Platelet Estimate Adequate, Platelet Morphology Normal, Hypochromasia 3+, Anisocytosis 1+, Sodium Level 143, Potassium Level 3.3L, Chloride Level 110H, Carbon Dioxide Level 23, Anion Gap 10, Blood Urea Nitrogen 57H, Creatinine 2.8H, Estimat Glomerular Filtration Rate 22.4, Glucose Level 120H, Uric Acid 5.8, Calcium Level 7.5L, Phosphorus Level 3.6, Magnesium Level 2.1, Total Bilirubin 0.4, Aspartate Amino Transf (AST/SGOT) 40H, Alanine Aminotransferase (ALT/SGPT) 12, Alkaline Phosphatase 60, C-Reactive Protein, Quantitative 6.4H, Pro-B-Type Natriuretic Peptide 6280H, Total Protein 4.5L, Albumin 0.9L, Globulin 3.6, Albumin/Globulin Ratio 0.2L Height (Feet): 6 Height (Inches): 0.00 Weight (Pounds): 183 General Appearance: no apparent distress EENT: other - Remains intubated on ventilator Cardiovascular: tachycardia Respiratory/Chest: decreased breath sounds Abdomen: soft Objective No other change Ricardo Choudhary MD Nov 29, 2019 13:11
--- NOTE | 2019-11-29 13:13 | Infectious Diseases Prog Note ---
Assessment/Plan Assessment/Plan Assessment: PEA arrest> unstable SVT s/p cardioversion 11/17 Septic shock- SP Fever, recurrent; SP Leukocytosis; fluctuating; improving -11/23 u/a wbc 15-20, nit neg, leuk +2; ucx C. lusitanae Bcx NTD -11/17 u/a no pyuria; ucx neg Bcx Neg sp cx PsA (R Zosyn; S Gentamycin, levaquin, Cefepime, ceftazidime, Meropenem), P. mirabilis ([facility] S) Pneumonia Acute hypoxic resp failure- sp NRB 15L, now VDRF 11/17 - 2ry to COVID19 and superimposed bacterial PNA -11/28 CXR: Slight increased alveolar infiltrates. -11/24 CXR: Right basilar pleural effusion and likely parenchymal consolidation are unchanged sp cx MDR PSA (S Cefepime, Genta, Levaquin) -11/22 CXR: Slight increased right effusion. Right basilar infiltrate again noted. -11/19 CXR: There is been worsening of moderately consolidating right middle lobe pneumonia. -11/17 CXR: Bilateral lower lobe atelectasis/infiltrates, slightly increased. No large pleural effusions. -11/15 CXR: New/increased infiltrates at the left lateral lung base -11/11 CXR: Mild interstitial thickening is slightly improved. -11/10 CXR: Hazy basilar infiltrates left greater than right. sp cx PsA ([facility]), P.mirabilis ([facility]), MRSA (S Vanco CARLOS 1, bactrim; R tetracycline ) -11/10 SARS-COV2 positive UTI c/w bacteremia -u/a wbc 5-10, nit neg, leuk +1, RBC TNCT; ucx 10-20k E. faecalis (S amp, vanco) -11/10 Bcx 2/4 E. faecalis (S Vancomycin, AMP) CONS bacteremia- likely contaminant -11/10 Bcx 2/ S. 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 Will continue to follow along with you. Discussed with RN and pharm Subjective Allergies: Coded Allergies: No Known Allergies (Unverified , 09/16/19) Subjective afebrile >24hrs Fio2 35% wbc improving off levophed Bcx NTD stool output improving Objective Vital Signs Last 24 Hour Vital Signs Date Time Temp Pulse Resp B/P (MAP) Pulse Ox O2 Delivery O2 Flow Rate FiO2 11/29/19 12:00 35 11/29/19 11:00 94 21 89/52 (64) 100 94 11/29/19 10:20 93 21 35 35 11/29/19 10:00 96 20 112/56 (74) 98 96 11/29/19 09:30 79 21 107/55 (72) 100 79 11/29/19 09:21 100/50 11/29/19 09:00 80 21 100/50 (67) 100 80 11/29/19 08:30 80 20 104/56 (72) 100 80 11/29/19 08:15 79 21 35 11/29/19 08:00 35 11/29/19 08:00 Mechanical Ventilator 11/29/19 08:00 97.9 81 22 110/58 (75) 100 81 11/29/19 07:00 80 21 115/53 (73) 100 11/29/19 06:00 83 22 112/51 (71) 100 11/29/19 05:00 93 12 133/89 (104) 98 11/29/19 04:00 Mechanical Ventilator 11/29/19 04:00 97.9 82 20 119/64 (82) 100 11/29/19 04:00 35 11/29/19 03:19 104 11/29/19 03:18 86 11/29/19 03:00 86 20 114/63 (80) 100 11/29/19 02:51 85 20 35 11/29/19 02:00 88 20 113/67 (82) 100 11/29/19 01:00 87 20 118/60 (79) 100 11/29/19 00:30 87 21 116/65 (82) 100 11/29/19 00:00 35 11/29/19 00:00 Mechanical Ventilator 11/29/19 00:00 87 11/29/19 00:00 98.4 87 21 113/62 (79) 100 11/28/19 23:15 88 20 35 11/28/19 23:00 88 21 121/64 (83) 100 11/28/19 22:00 89 21 121/61 (81) 100 11/28/19 21:00 91 21 130/66 (87) 100 11/28/19 20:00 35 11/28/19 20:00 Mechanical Ventilator 11/28/19 20:00 98.4 92 21 115/59 (77) 100 11/28/19 19:47 91 11/28/19 19:20 91 21 35 11/28/19 19:00 97 22 105/57 (73) 100 11/28/19 18:00 92 22 110/60 (77) 100 11/28/19 17:00 91 21 113/63 (80) 100 11/28/19 16:00 98.5 89 22 116/61 (79) 100 11/28/19 16:00 Mechanical Ventilator 11/28/19 16:00 35 11/28/19 15:05 88 20 35 11/28/19 15:04 88 11/28/19 15:00 85 20 123/63 (83) 100 11/28/19 14:00 85 20 132/69 (90) 100 Height (Feet): 6 Height (Inches): 0.00 Weight (Pounds): 183 Objective Gen: critically ill HEENT: ETT in place Lungs: no tacypnea or use of accessory muscles Neuro: lethargic Laboratory Tests Test 11/29/19 04:30 White Blood Count 18.2 K/UL (4.8-10.8) H Red Blood Count 2.51 M/UL (4.70-6.10) L Hemoglobin 7.0 G/DL (14.2-18.0) L Hematocrit 22.9 % (42.0-52.0) L Mean Corpuscular Volume 91 FL (80-99) Mean Corpuscular Hemoglobin 27.9 PG (27.0-31.0) Mean Corpuscular Hemoglobin Concent 30.5 G/DL (32.0-36.0) L Red Cell Distribution Width 16.4 % (11.6-14.8) H Platelet Count 232 K/UL (150-450) Mean Platelet Volume 7.1 FL (6.5-10.1) Neutrophils (%) (Auto) % (45.0-75.0) Lymphocytes (%) (Auto) % (20.0-45.0) Monocytes (%) (Auto) % (1.0-10.0) Eosinophils (%) (Auto) % (0.0-3.0) Basophils (%) (Auto) % (0.0-2.0) Differential Total Cells Counted 100 Neutrophils % (Manual) 95 % (45-75) H Lymphocytes % (Manual) 2 % (20-45) L Monocytes % (Manual) 3 % (1-10) Eosinophils % (Manual) 0 % (0-3) Basophils % (Manual) 0 % (0-2) Band Neutrophils 0 % (0-8) Platelet Estimate Adequate Platelet Morphology Normal Hypochromasia 3+ Anisocytosis 1+ Sodium Level 143 MMOL/L (136-145) Potassium Level 3.3 MMOL/L (3.5-5.1) L Chloride Level 110 MMOL/L (98-107) H Carbon Dioxide Level 23 MMOL/L (21-32) Anion Gap 10 mmol/L (5-15) Blood Urea Nitrogen 57 mg/dL (7-18) H Creatinine 2.8 MG/DL (0.55-1.30) H Estimat Glomerular Filtration Rate 22.4 mL/min (>60) Glucose Level 120 MG/DL (74-106) H Uric Acid 5.8 MG/DL (2.6-7.2) Calcium Level 7.5 MG/DL (8.5-10.1) L Phosphorus Level 3.6 MG/DL (2.5-4.9) Magnesium Level 2.1 MG/DL (1.8-2.4) Total Bilirubin 0.4 MG/DL (0.2-1.0) Aspartate Amino Transf (AST/SGOT) 40 U/L (15-37) H Alanine Aminotransferase (ALT/SGPT) 12 U/L (12-78) Alkaline Phosphatase 60 U/L (46-116) C-Reactive Protein, Quantitative 6.4 mg/dL (0.00-0.90) H Pro-B-Type Natriuretic Peptide 6280 pg/mL (0-125) H Total Protein 4.5 G/DL (6.4-8.2) L Albumin 0.9 G/DL (3.4-5.0) L Globulin 3.6 g/dL Albumin/Globulin Ratio 0.2 (1.0-2.7) L Current Medications Medications (Trade) Dose Ordered Sig/Leonor Route PRN Reason Start Time Stop Time Status Last Admin Dose Admin Acetaminophen (Tylenol) 650 mg Q4H PRN GT fever 11/18/19 03:00 12/11/19 02:59 11/28/19 05:07 Allopurinol (allopurinoL) 300 mg DAILY GT 11/21/19 09:00 12/21/19 08:59 11/29/19 09:19 Calcium Gluconate 1 gm/Sodium Chloride 120 ml @ 240 mls/hr Q12HR IVPB 11/22/19 09:00 12/22/19 08:59 11/29/19 09:19 Cefepime HCl 2 gm/ Dextrose 55 ml @ 110 mls/hr Q24H IVPB 11/27/19 21:00 12/04/19 20:59 11/28/19 20:28 Chlorhexidine Gluconate (Danielle-Hex 2%) 1 applic DAILY@2000 TOPIC 11/18/19 20:00 02/16/20 19:59 11/28/19 20:19 Dextrose/Sodium Chloride 1,000 ml @ 50 mls/hr Q20H IV 11/22/19 10:15 12/20/19 10:14 11/29/19 01:56 Heparin Sodium (Porcine) (Heparin 5000 units/ml) 5,000 units EVERY 12 HOURS SUBQ 11/18/19 09:00 12/26/19 08:59 11/29/19 09:20 Midodrine (Pro-Amatine) 10 mg Q8HR PRN ORAL BP below 100 systolic 11/27/19 10:00 02/20/20 13:59 Norepinephrine Bitartrate 8 mg/ Dextrose 558 ml @ 0 mls/hr Q24H IV 11/18/19 10:00 12/18/19 09:59 11/23/19 22:22 Ondansetron HCl (Zofran) 4 mg Q6H PRN IVP Nausea & Vomiting 11/18/19 03:00 12/11/19 08:59 Sevelamer Carbonate (Renvela) 800 mg Q12HR NG 11/27/19 21:00 02/20/20 07:59 11/29/19 09:18 Vancomycin HCl (Firvanq) 125 mg FOUR TIMES A DAY NG 11/28/19 13:00 12/05/19 23:59 11/29/19 12:18 Shannon Mark M.D. Nov 29, 2019 13:13
[2019-11-29] MEDS ORDERED: Midodrine 10mg tab ORAL SCH (14:00)
[2019-11-29] MEDS: Midodrine 10mg tab GT SCH ×2 (14:17→21:28)
--- NOTE | 2019-11-29 15:35 | Surgery Progress Note ---
Surgery Progress Note Subjective Additional Comments leukocytosis anemia renal insufficiency prognosis guarded ill appearing on support Objective Last 24 Hour Vital Signs Date Time Temp Pulse Resp B/P (MAP) Pulse Ox O2 Delivery O2 Flow Rate FiO2 11/29/19 14:00 92 21 110/55 (73) 100 92 11/29/19 13:00 83 24 96/59 (71) 100 83 11/29/19 12:30 87 25 92/59 (70) 100 87 11/29/19 12:00 97.4 86 25 93/59 (70) 100 86 11/29/19 12:00 35 11/29/19 12:00 91 11/29/19 12:00 Mechanical Ventilator 11/29/19 11:00 94 21 89/52 (64) 100 94 11/29/19 10:20 93 21 35 35 11/29/19 10:00 96 20 112/56 (74) 98 96 11/29/19 09:30 79 21 107/55 (72) 100 79 11/29/19 09:21 100/50 11/29/19 09:00 80 21 100/50 (67) 100 80 11/29/19 08:30 80 20 104/56 (72) 100 80 11/29/19 08:15 79 21 35 11/29/19 08:00 79 11/29/19 08:00 35 11/29/19 08:00 Mechanical Ventilator 11/29/19 08:00 97.9 81 22 110/58 (75) 100 81 11/29/19 07:00 80 21 115/53 (73) 100 11/29/19 06:00 83 22 112/51 (71) 100 11/29/19 05:00 93 12 133/89 (104) 98 11/29/19 04:00 Mechanical Ventilator 11/29/19 04:00 97.9 82 20 119/64 (82) 100 11/29/19 04:00 35 11/29/19 03:19 104 11/29/19 03:18 86 11/29/19 03:00 86 20 114/63 (80) 100 11/29/19 02:51 85 20 35 11/29/19 02:00 88 20 113/67 (82) 100 11/29/19 01:00 87 20 118/60 (79) 100 11/29/19 00:30 87 21 116/65 (82) 100 11/29/19 00:00 35 11/29/19 00:00 Mechanical Ventilator 11/29/19 00:00 87 11/29/19 00:00 98.4 87 21 113/62 (79) 100 11/28/19 23:15 88 20 35 11/28/19 23:00 88 21 121/64 (83) 100 11/28/19 22:00 89 21 121/61 (81) 100 11/28/19 21:00 91 21 130/66 (87) 100 11/28/19 20:00 35 11/28/19 20:00 Mechanical Ventilator 11/28/19 20:00 98.4 92 21 115/59 (77) 100 11/28/19 19:47 91 11/28/19 19:20 91 21 35 11/28/19 19:00 97 22 105/57 (73) 100 11/28/19 18:00 92 22 110/60 (77) 100 11/28/19 17:00 91 21 113/63 (80) 100 11/28/19 16:00 98.5 89 22 116/61 (79) 100 11/28/19 16:00 Mechanical Ventilator 11/28/19 16:00 35 I&O Intake and Output 11/28/19 11/29/19 19:00 07:00 Intake Total 1340 ml 1255 ml Output Total 325 ml 170 ml Balance 1015 ml 1085 ml IV Total 720 ml 775 ml Tube Feeding 420 ml 420 ml Other 200 ml 60 ml Output Urine Total 200 ml 70 ml Stool Total 125 ml 100 ml Dressing: other Wound: other Drains: other Cardiovascular: RSR Respiratory: decreased breath sounds Abdomen: soft, non-tender, present bowel sounds Extremities: no cyanosis Laboratory Tests Test 11/29/19 04:30 White Blood Count 18.2 K/UL (4.8-10.8) H Red Blood Count 2.51 M/UL (4.70-6.10) L Hemoglobin 7.0 G/DL (14.2-18.0) L Hematocrit 22.9 % (42.0-52.0) L Mean Corpuscular Volume 91 FL (80-99) Mean Corpuscular Hemoglobin 27.9 PG (27.0-31.0) Mean Corpuscular Hemoglobin Concent 30.5 G/DL (32.0-36.0) L Red Cell Distribution Width 16.4 % (11.6-14.8) H Platelet Count 232 K/UL (150-450) Mean Platelet Volume 7.1 FL (6.5-10.1) Neutrophils (%) (Auto) % (45.0-75.0) Lymphocytes (%) (Auto) % (20.0-45.0) Monocytes (%) (Auto) % (1.0-10.0) Eosinophils (%) (Auto) % (0.0-3.0) Basophils (%) (Auto) % (0.0-2.0) Differential Total Cells Counted 100 Neutrophils % (Manual) 95 % (45-75) H Lymphocytes % (Manual) 2 % (20-45) L Monocytes % (Manual) 3 % (1-10) Eosinophils % (Manual) 0 % (0-3) Basophils % (Manual) 0 % (0-2) Band Neutrophils 0 % (0-8) Platelet Estimate Adequate Platelet Morphology Normal Hypochromasia 3+ Anisocytosis 1+ Sodium Level 143 MMOL/L (136-145) Potassium Level 3.3 MMOL/L (3.5-5.1) L Chloride Level 110 MMOL/L (98-107) H Carbon Dioxide Level 23 MMOL/L (21-32) Anion Gap 10 mmol/L (5-15) Blood Urea Nitrogen 57 mg/dL (7-18) H Creatinine 2.8 MG/DL (0.55-1.30) H Estimat Glomerular Filtration Rate 22.4 mL/min (>60) Glucose Level 120 MG/DL (74-106) H Uric Acid 5.8 MG/DL (2.6-7.2) Calcium Level 7.5 MG/DL (8.5-10.1) L Phosphorus Level 3.6 MG/DL (2.5-4.9) Magnesium Level 2.1 MG/DL (1.8-2.4) Total Bilirubin 0.4 MG/DL (0.2-1.0) Aspartate Amino Transf (AST/SGOT) 40 U/L (15-37) H Alanine Aminotransferase (ALT/SGPT) 12 U/L (12-78) Alkaline Phosphatase 60 U/L (46-116) C-Reactive Protein, Quantitative 6.4 mg/dL (0.00-0.90) H Pro-B-Type Natriuretic Peptide 6280 pg/mL (0-125) H Total Protein 4.5 G/DL (6.4-8.2) L Albumin 0.9 G/DL (3.4-5.0) L Globulin 3.6 g/dL Albumin/Globulin Ratio 0.2 (1.0-2.7) L Plan Problems: (1) Decubitus skin ulcer Assessment & Plan: Pt presented on admission with large sacral wound. Base of wound with areas that area purple and indurated sacrococcygeal,L sacrum/L gluteus,Scattered wounds with maceration L gluteus, one wound R sacrum with Biofilm, Surrounding non-blanching erythema entire buttocks. Small dry scabbed area noted to lumbar area. Unstageable Pressure Injury L heel. Base of wound is necrotic with surrounding non-blanching erythema. Tx.plan: Apply Moisture Barrier Paste to Buttocks. Cover Sacrum, R and L gluteal cheeks with Optifoam drsgs. Change every 3 days and prn. Apply Betadine to L heel. Cover with Optifoam drsg. Change every 3 days and prn. Reposition at least every 2hours or as tolerated. Place Pillow between knees. Off-load heels with Pillow. APM/BRUNILDA Mattress overlay. DAILY ESTIMATED NEEDS: Needs based on wt loss, underweight, wound/ 59kg 30-35 kcals/kg 5891-5014 total kcals 1.25-2 g protein/kg 74-118 g total protein 25-30 mL/kg 4840-8322 total fluid mLs NUTRITION DIAGNOSIS: * Increased kcal/prot intake needs R/T wound healing, suspected recent significant wt loss as evidenced by admitted w/ wounds @ lt posterior heel, R lower back, sacrum as per photos, pending eval, suspected significant wt loss of 40lbs/ 23.7% in <5 months, currently @ 81% IBW. . * Swallowing difficulty R/T dysphagia, h/o CVA as evidenced by PEG dependent. CURRENT TF:Glucerna 1.2 @65ml/hr x24 hrs ENTERAL NUTRITION RECOMMENDATIONS: NEPRO @45ml/hr x24 hrs to provide 1080ml, 1944 kcal, 87g pro, 785ml free H2O - Rec TF change for lower K content (1145mg in Nepro @45 vs 3151mg in Glucerna 1.2 @65) - Start at 25ml/hr advance as tolerated 10ml/hr q4-6 hrs - HOB over 30 degrees - Increased H20 flush to 200ml q4 hrs ADDITIONAL RECOMMENDATIONS: 1) Calibrated bedscale wt -> per SNF: HT=59" and ND=228kwm (10/20/19) 2) Wound healing: Add Vit C 500mg QD/ or dosing per nephro Add Osbaldo BID via PEG w/ TF order 3) Monitor lytes: monitor K trend, need for renal TF (K 5.3, 5.5) 4) NISS w/ TF (h/o DM) 5) Monitor for diarrhea, rec probiotics (2) Sepsis Assessment & Plan: 74-year-old male multi-medical comorbidities admitted for respiratory deficiency currently tachypneic, leukocytosis, malnutrition, hypoalbuminemia. Complete physical exam performed identified areas of concerned given patient's comorbidities current condition high risk for deteriorationNo active infection identified from patient's wounds and likely respiratory nature. Chest x-ray reviewed. No acute surgical intervention planned at this time Preventive measures IV antibiotics per infectious disease Okay for feeding once stable respiratory Appreciate Pulm input c diff positive on vanco blood cx noted worsening leukocytosis ID abx noted heme input noted There are increasing basilar opacities on the left noted. The heart size is normal. The pleural spaces are clear. 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
[2019-11-29] MEDS: Vancomycin oral 125mg/2.5ml GT SCH ×2 (18:24→20:56)
[2019-11-29] MEDS: Renvela 800mg Pkt GT SCH (20:56)
[2019-11-29] MEDS: Dyna-Hex 2% Top Sol 2oz TOPIC SCH (20:56)
[2019-11-29] MEDS: Cefepime 2gm in D5W 55ml IVPB SCH (20:57)
[2019-11-30] VITALS (27 sets, daily range): BP systolic 110–143; BP diastolic 47–72
[2019-11-30 05:29] LABS: ALANINE AMINOTRANSFERASE < 6 U/L (12-78); ALBUMIN 0.9 G/DL (3.4-5.0); ALBUMIN/GLOBULIN RATIO 0.2 (1.0-2.7); ALKALINE PHOSPHATASE 62 U/L (46-116); ANION GAP 11 mmol/L (5-15); ASPARTATE AMINO TRANSFERASE 41 U/L (15-37); BILIRUBIN,TOTAL 0.4 MG/DL (0.2-1.0); BLOOD UREA NITROGEN 61 mg/dL (7-18); CALCIUM 7.4 MG/DL (8.5-10.1); CARBON DIOXIDE 22 MMOL/L (21-32); CHLORIDE 110 MMOL/L (98-107); CREATININE 2.7 MG/DL (0.55-1.30); HEMATOCRIT 30.2 % (42.0-52.0); HEMOGLOBIN 9.2 G/DL (14.2-18.0); MEAN CORPUSCULAR VOLUME 93 FL (80-99); PLATELET COUNT 197 K/UL (150-450); POTASSIUM 4.1 MMOL/L (3.5-5.1); RED BLOOD COUNT 3.25 M/UL (4.70-6.10); RED CELL DISTRIBUTION WIDTH 16.2 % (11.6-14.8); SODIUM 143 MMOL/L (136-145); WHITE BLOOD COUNT 15.7 K/UL (4.8-10.8)
[2019-11-30] MEDS: Midodrine 10mg tab GT SCH ×3 (06:05→21:24)
--- NOTE | 2019-11-30 07:15 | Consultation ---
DATE OF CONSULTATION: 11/29/2019 CONSULTING PHYSICIAN: Chandler Momin MD CHIEF COMPLAINT: A 74-year-old [place] man was admitted with pneumonia and shortness of breath and was subsequently found to have COVID pneumonia. The patient had a previous history of anemia and stroke. 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 The patient as I mentioned has slowly deteriorated and is now comatose. A chest x-ray today reveals worsening alveolar infiltrates, particularly in the left upper lung. The patient is currently anemic. His hemoglobin is 7. The white count is 18,200. The platelet counts are normal. The patient recently had a urinary tract infection with abnormal urine on . There is moderately high bacteria. 15-20 white blood cells. The patient's blood gases revealed a normal pH of 7.435, pCO2 of 33.9, pO2 was 82.7, oxygen saturation is declining, it is now 85.7. The patient is intubated. The patient had multiple consultations, see their notes. PAST MEDICAL HISTORY: 1. . 2. . 3. Hypertension. 4. MONICA BUN of 57, elevation in AST. . . PT and PTT are . D-dimer is 3.89 . The patient is on vancomycin. ALLERGIES: No known allergies. SOCIAL HISTORY: Unavailable. FAMILY HISTORY: Unavailable. REVIEW OF SYSTEMS: Unavailable. PHYSICAL EXAMINATION: VITAL SIGNS: Blood pressure 92/52, pulse is 89, pulse oximetry is 98 today, respiratory rate is 21, . MENTAL STATUS EXAMINATION: The patient is comatose, does not open eyes to exam. CRANIAL NERVE EXAMINATION: CRANIAL NERVE II: . CRANIAL NERVES III, IV, AND : The pupils are sluggish to react about 5 mm. CRANIAL NERVE V: . CRANIAL NERVE VII TO XII: There is no response . MUSCLE EXAMINATION: There is painful stimuli. REFLEXES: . IMPRESSION: This is a Telehealth evaluation. The patient has had a previous stroke in the territory of the left middle cerebral artery. The patient should have an EEG. As the pupils are sluggish to reactive . The patient has metabolic encephalopathy . . PLAN: EEG. . Chandler Momin MD DR: PAULA JOB#: [id number] CC:
[2019-11-30] MEDS: Renvela 800mg Pkt GT SCH ×2 (08:44→20:21)
[2019-11-30] MEDS: Vancomycin oral 125mg/2.5ml GT SCH ×2 (08:44→12:23)
[2019-11-30] MEDS: Heparin 5000 units/ml inj SUBQ SCH ×2 (08:45→20:22)
[2019-11-30] MEDS: Calcium Gluconate 10% 1 GM in NS 110 ML IVPB SCH ×2 (08:45→21:25)
[2019-11-30] MEDS: Norepinephrine Bitartrate 8 MG in D5W 500ml 550 ML IV SCH (10:00)
--- NOTE | 2019-11-30 11:11 | Pulmonolgy Critical Care Note ---
Critical Care - Asmt/Plan Problems: (1) Acute respiratory failure (2) Cardiac arrest (3) Bacteremia Assessment & Plan: enterocococus fecalis in blood. Proteus and Pseudomonas in sputum. 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, 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, consultants, case technicianmanager of administration - Objective Last 24 Hour Vital Signs Date Time Temp Pulse Resp B/P (MAP) Pulse Ox O2 Delivery O2 Flow Rate FiO2 11/30/19 11:00 74 20 124/52 (76) 100 11/30/19 10:00 135/56 11/30/19 10:00 74 20 127/55 (79) 100 11/30/19 09:00 100 11/30/19 09:00 77 20 135/56 (82) 100 11/30/19 08:00 75 11/30/19 08:00 35 11/30/19 08:00 Mechanical Ventilator 11/30/19 08:00 97.8 75 20 118/49 (72) 100 11/30/19 07:00 74 20 35 11/30/19 07:00 76 20 112/48 (69) 100 11/30/19 06:30 77 20 130/51 (77) 100 11/30/19 06:00 78 20 130/54 (79) 100 11/30/19 05:30 84 19 120/49 (72) 99 11/30/19 05:00 81 0 128/71 (90) 100 11/30/19 04:00 35 11/30/19 04:00 97.2 80 20 125/67 (86) 100 11/30/19 04:00 Mechanical Ventilator 11/30/19 03:30 80 20 122/67 (85) 100 11/30/19 03:05 85 11/30/19 03:00 81 20 124/72 (89) 100 11/30/19 02:59 85 20 35 11/30/19 02:00 80 20 115/57 (76) 99 80 11/30/19 01:00 81 20 111/55 (73) 97 80 11/30/19 00:00 97.1 81 20 143/55 (84) 98 86 11/30/19 00:00 35 11/30/19 00:00 Mechanical Ventilator 11/29/19 23:30 81 20 142/66 (91) 98 86 11/29/19 23:15 81 11/29/19 23:00 82 20 145/59 (87) 100 84 11/29/19 22:58 84 20 35 11/29/19 22:30 84 20 136/56 (82) 100 85 11/29/19 22:00 86 20 131/54 (79) 100 82 11/29/19 21:30 86 20 130/59 (82) 100 86 11/29/19 21:00 83 21 112/50 (70) 99 80 11/29/19 20:00 Mechanical Ventilator 11/29/19 20:00 97.6 83 20 112/52 (72) 100 81 11/29/19 20:00 35 11/29/19 19:27 75 11/29/19 19:16 87 20 35 11/29/19 19:00 78 20 92/52 (65) 100 78 11/29/19 18:00 84 21 93/52 (66) 100 84 11/29/19 17:00 89 21 93/53 (66) 98 92 11/29/19 16:00 97.8 90 23 93/45 (61) 100 90 11/29/19 16:00 89 11/29/19 16:00 35 11/29/19 16:00 Mechanical Ventilator 11/29/19 15:00 92 22 94/46 (62) 98 92 11/29/19 14:50 85 20 35 35 11/29/19 14:00 92 21 110/55 (73) 100 92 11/29/19 13:00 83 24 96/59 (71) 100 83 11/29/19 12:30 87 25 92/59 (70) 100 87 11/29/19 12:00 97.4 86 25 93/59 (70) 100 86 11/29/19 12:00 35 11/29/19 12:00 91 11/29/19 12:00 Mechanical Ventilator Status: obtunded Condition: critical HEENT: atraumatic Lungs: clear Heart: HR/BP stable Abdomen: soft Extremities: no C/C/E Decubiti: location Critical Care - Subjective ROS Limited/Unobtainable: Yes Interval Events: CT of head was not done because of how BP and since pt is COVID positive. FI02: 35 Vent Support Breath Rate: 20 Vent Support Mode: AC Vent Tidal Volume: 550 Sputum Amount: Small PEEP: 5.0 PIP: 26 Tube Feeding Amount: 35 I&O: Intake and Output 11/29/19 11/30/19 19:00 07:00 Intake Total 1520 ml 1219.167 ml Output Total 640 ml 390 ml Balance 880 ml 829.167 ml Free Water 90 ml IV Total 920 ml 774.167 ml Tube Feeding 420 ml 105 ml Blood Product 250 ml Other 180 ml Output Urine Total 240 ml 190 ml Stool Total 400 ml 200 ml ET-Tube: 8.0 ET Position: 23 Labs: Laboratory Tests Test 11/30/19 03:00 White Blood Count 15.7 K/UL (4.8-10.8) H Red Blood Count 3.25 M/UL (4.70-6.10) L Hemoglobin 9.2 G/DL (14.2-18.0) #L Hematocrit 30.2 % (42.0-52.0) #L Mean Corpuscular Volume 93 FL (80-99) Mean Corpuscular Hemoglobin 28.2 PG (27.0-31.0) Mean Corpuscular Hemoglobin Concent 30.4 G/DL (32.0-36.0) L Red Cell Distribution Width 16.2 % (11.6-14.8) H Platelet Count 197 K/UL (150-450) Mean Platelet Volume 7.0 FL (6.5-10.1) Neutrophils (%) (Auto) % (45.0-75.0) Lymphocytes (%) (Auto) % (20.0-45.0) Monocytes (%) (Auto) % (1.0-10.0) Eosinophils (%) (Auto) % (0.0-3.0) Basophils (%) (Auto) % (0.0-2.0) Differential Total Cells Counted 100 Neutrophils % (Manual) 90 % (45-75) H Lymphocytes % (Manual) 8 % (20-45) L Monocytes % (Manual) 2 % (1-10) Eosinophils % (Manual) 0 % (0-3) Basophils % (Manual) 0 % (0-2) Band Neutrophils 0 % (0-8) Platelet Estimate Adequate Platelet Morphology Normal Hypochromasia 1+ Anisocytosis 1+ Erythrocyte Sedimentation Rate 98 MM/HR (0-20) H Sodium Level 143 MMOL/L (136-145) Potassium Level 4.1 MMOL/L (3.5-5.1) Chloride Level 110 MMOL/L (98-107) H Carbon Dioxide Level 22 MMOL/L (21-32) Anion Gap 11 mmol/L (5-15) Blood Urea Nitrogen 61 mg/dL (7-18) H Creatinine 2.7 MG/DL (0.55-1.30) H Estimat Glomerular Filtration Rate 23.3 mL/min (>60) Glucose Level 108 MG/DL (74-106) H Calcium Level 7.4 MG/DL (8.5-10.1) L Phosphorus Level 4.0 MG/DL (2.5-4.9) Magnesium Level 2.0 MG/DL (1.8-2.4) Total Bilirubin 0.4 MG/DL (0.2-1.0) Aspartate Amino Transf (AST/SGOT) 41 U/L (15-37) H Alanine Aminotransferase (ALT/SGPT) < 6 U/L (12-78) L Alkaline Phosphatase 62 U/L (46-116) C-Reactive Protein, Quantitative 10.1 mg/dL (0.00-0.90) H Total Protein 4.7 G/DL (6.4-8.2) L Albumin 0.9 G/DL (3.4-5.0) L Globulin 3.8 g/dL Albumin/Globulin Ratio 0.2 (1.0-2.7) L Ayana Ndiaye MD Nov 30, 2019 11:11
--- NOTE | 2019-11-30 11:50 | Hematology/Onc Progress Note ---
Assessment/Plan Assessment/Plan Assessment and Recs # Leukocytosis/elevated white blood cell count, unspecified likely related to underlying stress reaction, smoking v more likely infection, in this case with pna and COVID19++++++++ --> have reviewed peripheral smear and bandemia/neutrophilia noted --> continue antibiotics if they have been started by ID team --> monitor for resolution --> wbc 35k-->31.2-->25-->27.4 -->25-->20.7-->18.6 -->27-->19.7 -->20->20->18.2- ->15.7 --> abx/antivral: remdesivir/vanc/cefepime-->vanc/flagyl/monique-->linezolid/monique-- >cefepime/zyvox/vanc ->vanc/cefepime --> 11/28 cxr: Slight increased alveolar infiltrates. # Thrombocytosis - if plt count >400k, most usually is a reactive process and will improve once exacerbant removed as well --> in this case due to underlying infection --> plt trend 646k-->672 -->547-->372-->345-->149 -->246-->232-->197 --> smear is noted # Anemia of chronic disease due to underlying chronic medical issues, multifactorial v Gi bleed --> Anemia workup has been ordered, rule out gi bleed -> ferritin 1339 --> No evidence of hemolysis is noted, peripheral smear has been reviewed. --> Hgb goal >7. Transfuse prn. --> Epogen or iron at this time is not particularly indicated --> Medications have been reviewed --> low threshold for gi evaluation in case has occult + --> bone marrow biopsy is not indicated given the other more likely causes --> hgb 9.5-->9.8->8.8-->8.6-->7.5-->9.5-->7.5 -->9.1-->8-->7.6-->7-->9.2 --> 1 unit prbc 11/20; 11/28 --> ddimer remains elevated currently # Acute hypoxic resp failure- 2ry to COVID19 --> vent+ --> per id and pulm recs --> breathing treatments and rep cxr --> 11/15 cxr: New/increased infiltrates at the left lateral lung base # UTI c/w bacteremia --> abx per id # Cdiff colitis --> abx # MONICA, improving # Deep tissue injury (sacrum, L heel) # HTN # Dm2 # MDD # Dysphagia s/p GT # malnutrition # decubitus ulcer # non verbal # L 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 Greatly appreciate consultation. Subjective Allergies: Coded Allergies: No Known Allergies (Unverified , 09/16/19) Subjective 11/15 tele, no acute events, cxr and labs reviewed, nrb 15l, remdesivir 11/16 remains on iso, breathing is improved, no night sweats 11/17 remains with fever, cooling blankets, labs noted, no bleed hgb 8.8 11/19 icu, no acute events, vent, levo gtt, meds and labs reviewed 11/20 labs noted, no bleeding, in icu, hgb 7.5, to get one unit prbc, wbc elev 25 11/21 non verbal, s/p blood, hgb improved to 9.5, vent, iv abx 11/22 icu, no new changes, labs reviewed, levo gtt 11/23 labs are noted, no bleeding, in icu, on levo, wbc 27, hgb 9 11/24 nonverbal, no new changes, afebrile 11/26 nonverbal, in icu, on vent, wbc 20, hgb 8, no bleeding 11/[address], vent, lavonne as well, labs reviewed 11/28 nonverbal, icu, hbg 7, iv abx, 11/29 s/p 1 unit blood, hgb improved to 9.2, cxr reviewed Objective Objective Current Medications Medications (Trade) Dose Ordered Sig/Leonor Route PRN Reason Start Time Stop Time Status Last Admin Dose Admin Acetaminophen (Tylenol) 650 mg Q4H PRN GT fever 11/18/19 03:00 12/11/19 02:59 11/28/19 05:07 Allopurinol (allopurinoL) 300 mg DAILY GT 11/21/19 09:00 12/21/19 08:59 11/30/19 08:44 Calcium Gluconate 1 gm/Sodium Chloride 120 ml @ 240 mls/hr Q12HR IVPB 11/22/19 09:00 12/22/19 08:59 11/30/19 08:45 Cefepime HCl 2 gm/ Dextrose 55 ml @ 110 mls/hr Q24H IVPB 11/27/19 21:00 12/04/19 20:59 11/29/19 20:57 Chlorhexidine Gluconate (Danielle-Hex 2%) 1 applic DAILY@2000 TOPIC 11/18/19 20:00 02/16/20 19:59 11/29/19 20:56 Dextrose/Sodium Chloride 1,000 ml @ 50 mls/hr Q20H IV 11/22/19 10:15 12/20/19 10:14 11/29/19 20:57 Heparin Sodium (Porcine) (Heparin 5000 units/ml) 5,000 units EVERY 12 HOURS SUBQ 11/18/19 09:00 12/26/19 08:59 11/30/19 08:45 Midodrine (Pro-Amatine) 10 mg Q8HR GT 11/29/19 14:00 02/20/20 13:59 11/30/19 06:05 Norepinephrine Bitartrate 8 mg/ Dextrose 558 ml @ 0 mls/hr Q24H IV 11/18/19 10:00 12/18/19 09:59 11/23/19 22:22 Ondansetron HCl (Zofran) 4 mg Q6H PRN IVP Nausea & Vomiting 11/18/19 03:00 12/11/19 08:59 Sevelamer Carbonate (Renvela) 800 mg Q12HR GT 11/29/19 21:00 02/20/20 07:59 11/30/19 08:44 Vancomycin HCl (Firvanq) 125 mg FOUR TIMES A DAY GT 11/29/19 18:00 12/05/19 23:59 11/30/19 08:44 Last 24 Hour Vital Signs Date Time Temp Pulse Resp B/P (MAP) Pulse Ox O2 Delivery O2 Flow Rate FiO2 11/30/19 11:00 74 20 124/52 (76) 100 11/30/19 11:00 71 20 35 11/30/19 10:00 135/56 11/30/19 10:00 74 20 127/55 (79) 100 11/30/19 09:00 100 11/30/19 09:00 77 20 135/56 (82) 100 11/30/19 08:00 75 11/30/19 08:00 35 11/30/19 08:00 Mechanical Ventilator 11/30/19 08:00 97.8 75 20 118/49 (72) 100 11/30/19 07:00 74 20 35 11/30/19 07:00 76 20 112/48 (69) 100 11/30/19 06:30 77 20 130/51 (77) 100 11/30/19 06:00 78 20 130/54 (79) 100 11/30/19 05:30 84 19 120/49 (72) 99 11/30/19 05:00 81 0 128/71 (90) 100 11/30/19 04:00 35 11/30/19 04:00 97.2 80 20 125/67 (86) 100 11/30/19 04:00 Mechanical Ventilator 11/30/19 03:30 80 20 122/67 (85) 100 11/30/19 03:05 85 11/30/19 03:00 81 20 124/72 (89) 100 11/30/19 02:59 85 20 35 11/30/19 02:00 80 20 115/57 (76) 99 80 11/30/19 01:00 81 20 111/55 (73) 97 80 11/30/19 00:00 97.1 81 20 143/55 (84) 98 86 11/30/19 00:00 35 11/30/19 00:00 Mechanical Ventilator 11/29/19 23:30 81 20 142/66 (91) 98 86 11/29/19 23:15 81 11/29/19 23:00 82 20 145/59 (87) 100 84 11/29/19 22:58 84 20 35 11/29/19 22:30 84 20 136/56 (82) 100 85 11/29/19 22:00 86 20 131/54 (79) 100 82 11/29/19 21:30 86 20 130/59 (82) 100 86 11/29/19 21:00 83 21 112/50 (70) 99 80 11/29/19 20:00 Mechanical Ventilator 11/29/19 20:00 97.6 83 20 112/52 (72) 100 81 11/29/19 20:00 35 11/29/19 19:27 75 11/29/19 19:16 87 20 35 11/29/19 19:00 78 20 92/52 (65) 100 78 11/29/19 18:00 84 21 93/52 (66) 100 84 11/29/19 17:00 89 21 93/53 (66) 98 92 11/29/19 16:00 97.8 90 23 93/45 (61) 100 90 11/29/19 16:00 89 11/29/19 16:00 35 11/29/19 16:00 Mechanical Ventilator 11/29/19 15:00 92 22 94/46 (62) 98 92 11/29/19 14:50 85 20 35 35 11/29/19 14:00 92 21 110/55 (73) 100 92 11/29/19 13:00 83 24 96/59 (71) 100 83 11/29/19 12:30 87 25 92/59 (70) 100 87 11/29/19 12:00 97.4 86 25 93/59 (70) 100 86 11/29/19 12:00 35 11/29/19 12:00 91 11/29/19 12:00 Mechanical Ventilator 11/29/19 11:00 94 21 89/52 (64) 100 94 11/29/19 10:20 93 21 35 35 11/29/19 10:00 96 20 112/56 (74) 98 96 11/29/19 09:30 79 21 107/55 (72) 100 79 11/29/19 09:21 100/50 11/29/19 09:00 80 21 100/50 (67) 100 80 11/29/19 08:30 80 20 104/56 (72) 100 80 11/29/19 08:15 79 21 35 11/29/19 08:00 79 11/29/19 08:00 35 11/29/19 08:00 Mechanical Ventilator 11/29/19 08:00 97.9 81 22 110/58 (75) 100 81 11/29/19 07:00 80 21 115/53 (73) 100 11/29/19 06:00 83 22 112/51 (71) 100 11/29/19 05:00 93 12 133/89 (104) 98 11/29/19 04:00 Mechanical Ventilator 11/29/19 04:00 97.9 82 20 119/64 (82) 100 11/29/19 04:00 35 11/29/19 03:19 104 11/29/19 03:18 86 11/29/19 03:00 86 20 114/63 (80) 100 11/29/19 02:51 85 20 35 11/29/19 02:00 88 20 113/67 (82) 100 11/29/19 01:00 87 20 118/60 (79) 100 11/29/19 00:30 87 21 116/65 (82) 100 11/29/19 00:00 35 11/29/19 00:00 Mechanical Ventilator 11/29/19 00:00 87 11/29/19 00:00 98.4 87 21 113/62 (79) 100 11/28/19 23:15 88 20 35 11/28/19 23:00 88 21 121/64 (83) 100 11/28/19 22:00 89 21 121/61 (81) 100 11/28/19 21:00 91 21 130/66 (87) 100 11/28/19 20:00 35 11/28/19 20:00 Mechanical Ventilator 11/28/19 20:00 98.4 92 21 115/59 (77) 100 11/28/19 19:47 91 11/28/19 19:20 91 21 35 11/28/19 19:00 97 22 105/57 (73) 100 11/28/19 18:00 92 22 110/60 (77) 100 11/28/19 17:00 91 21 113/63 (80) 100 11/28/19 16:00 98.5 89 22 116/61 (79) 100 11/28/19 16:00 Mechanical Ventilator 11/28/19 16:00 35 11/28/19 15:05 88 20 35 11/28/19 15:04 88 11/28/19 15:00 85 20 123/63 (83) 100 11/28/19 14:00 85 20 132/69 (90) 100 11/28/19 13:00 83 20 129/68 (88) 100 11/28/19 12:00 98.6 85 20 127/70 (89) 100 11/28/19 12:00 35 11/28/19 12:00 Mechanical Ventilator Intake and Output 11/29/19 11/30/19 19:00 07:00 Intake Total 1520 ml 1219.167 ml Output Total 640 ml 390 ml Balance 880 ml 829.167 ml Free Water 90 ml IV Total 920 ml 774.167 ml Tube Feeding 420 ml 105 ml Blood Product 250 ml Other 180 ml Output Urine Total 240 ml 190 ml Stool Total 400 ml 200 ml Labs Test 11/28/19 04:00 11/28/19 10:39 11/29/19 04:30 11/30/19 03:00 White Blood Count 19.9 K/UL (4.8-10.8) 18.2 K/UL (4.8-10.8) 15.7 K/UL (4.8-10.8) Red Blood Count 2.68 M/UL (4.70-6.10) 2.51 M/UL (4.70-6.10) 3.25 M/UL (4.70-6.10) Hemoglobin 7.6 G/DL (14.2-18.0) 7.0 G/DL (14.2-18.0) 9.2 G/DL (14.2-18.0) Hematocrit 24.2 % (42.0-52.0) 22.9 % (42.0-52.0) 30.2 % (42.0-52.0) Mean Corpuscular Volume 90 FL (80-99) 91 FL (80-99) 93 FL (80-99) Mean Corpuscular Hemoglobin 28.4 PG (27.0-31.0) 27.9 PG (27.0-31.0) 28.2 PG (27.0-31.0) Mean Corpuscular Hemoglobin Concent 31.4 G/DL (32.0-36.0) 30.5 G/DL (32.0-36.0) 30.4 G/DL (32.0-36.0) Red Cell Distribution Width 16.3 % (11.6-14.8) 16.4 % (11.6-14.8) 16.2 % (11.6-14.8) Platelet Count 289 K/UL (150-450) 232 K/UL (150-450) 197 K/UL (150-450) Mean Platelet Volume 6.9 FL (6.5-10.1) 7.1 FL (6.5-10.1) 7.0 FL (6.5-10.1) Neutrophils (%) (Auto) % (45.0-75.0) % (45.0-75.0) % (45.0-75.0) Lymphocytes (%) (Auto) % (20.0-45.0) % (20.0-45.0) % (20.0-45.0) Monocytes (%) (Auto) % (1.0-10.0) % (1.0-10.0) % (1.0-10.0) Eosinophils (%) (Auto) % (0.0-3.0) % (0.0-3.0) % (0.0-3.0) Basophils (%) (Auto) % (0.0-2.0) % (0.0-2.0) % (0.0-2.0) Differential Total Cells Counted 100 100 100 Neutrophils % (Manual) 91 % (45-75) 95 % (45-75) 90 % (45-75) Lymphocytes % (Manual) 6 % (20-45) 2 % (20-45) 8 % (20-45) Monocytes % (Manual) 3 % (1-10) 3 % (1-10) 2 % (1-10) Eosinophils % (Manual) 0 % (0-3) 0 % (0-3) 0 % (0-3) Basophils % (Manual) 0 % (0-2) 0 % (0-2) 0 % (0-2) Band Neutrophils 0 % (0-8) 0 % (0-8) 0 % (0-8) Platelet Estimate Adequate Adequate Adequate Platelet Morphology Normal Normal Normal Anisocytosis 1+ 1+ 1+ Sodium Level 140 MMOL/L (136-145) 143 MMOL/L (136-145) 143 MMOL/L (136-145) Potassium Level 3.2 MMOL/L (3.5-5.1) 3.3 MMOL/L (3.5-5.1) 4.1 MMOL/L (3.5-5.1) Chloride Level 108 MMOL/L (98-107) 110 MMOL/L (98-107) 110 MMOL/L (98-107) Carbon Dioxide Level 23 MMOL/L (21-32) 23 MMOL/L (21-32) 22 MMOL/L (21-32) Anion Gap 9 mmol/L (5-15) 10 mmol/L (5-15) 11 mmol/L (5-15) Blood Urea Nitrogen 50 mg/dL (7-18) 57 mg/dL (7-18) 61 mg/dL (7-18) Creatinine 2.8 MG/DL (0.55-1.30) 2.8 MG/DL (0.55-1.30) 2.7 MG/DL (0.55-1.30) Estimat Glomerular Filtration Rate 22.4 mL/min (>60) 22.4 mL/min (>60) 23.3 mL/min (>60) Glucose Level 129 MG/DL (74-106) 120 MG/DL (74-106) 108 MG/DL (74-106) Calcium Level 7.3 MG/DL (8.5-10.1) 7.5 MG/DL (8.5-10.1) 7.4 MG/DL (8.5-10.1) Phosphorus Level 3.2 MG/DL (2.5-4.9) 3.6 MG/DL (2.5-4.9) 4.0 MG/DL (2.5-4.9) Magnesium Level 2.0 MG/DL (1.8-2.4) 2.1 MG/DL (1.8-2.4) 2.0 MG/DL (1.8-2.4) Total Bilirubin 0.4 MG/DL (0.2-1.0) 0.4 MG/DL (0.2-1.0) 0.4 MG/DL (0.2-1.0) Aspartate Amino Transf (AST/SGOT) 45 U/L (15-37) 40 U/L (15-37) 41 U/L (15-37) Alanine Aminotransferase (ALT/SGPT) 11 U/L (12-78) 12 U/L (12-78) < 6 U/L (12-78) Alkaline Phosphatase 64 U/L (46-116) 60 U/L (46-116) 62 U/L (46-116) Total Protein 4.6 G/DL (6.4-8.2) 4.5 G/DL (6.4-8.2) 4.7 G/DL (6.4-8.2) Albumin 1.0 G/DL (3.4-5.0) 0.9 G/DL (3.4-5.0) 0.9 G/DL (3.4-5.0) Globulin 3.6 g/dL 3.6 g/dL 3.8 g/dL Albumin/Globulin Ratio 0.3 (1.0-2.7) 0.2 (1.0-2.7) 0.2 (1.0-2.7) Arterial Blood pH 7.435 (7.350-7.450) Arterial Blood Partial Pressure CO2 33.9 mmHg (35.0-45.0) Arterial Blood Partial Pressure O2 83.7 mmHg (75.0-100.0) Arterial Blood HCO3 22.3 mmol/L (22.0-26.0) Arterial Blood Oxygen Saturation 95.7 % (95-100) Arterial Blood Base Excess -1.7 (-2-2) Michael Test Positive Hypochromasia 3+ 1+ Uric Acid 5.8 MG/DL (2.6-7.2) C-Reactive Protein, Quantitative 6.4 mg/dL (0.00-0.90) 10.1 mg/dL (0.00-0.90) Pro-B-Type Natriuretic Peptide 6280 pg/mL (0-125) Erythrocyte Sedimentation Rate 98 MM/HR (0-20) Height (Feet): 6 Height (Inches): 0.00 Weight (Pounds): 163 Objective PE General: alert, chronically Ill Heent: nc, at Neck: full range of motion, supple, no meningismus Respiratory: chest non-tender, decreased breath sounds, crackles, vent++ Cardiovascular: no murmur, tachycardia Gastrointestinal: normal bowel sounds, non tender,+peg Musculoskeletal: back normal, normal range of motion, gait/station normal Neurologic: no pronator Deng Flowers MD Nov 30, 2019 11:50
--- NOTE | 2019-11-30 13:06 | Infectious Diseases Prog Note ---
Assessment/Plan Assessment/Plan Assessment: PEA arrest> unstable SVT s/p cardioversion 11/17 Septic shock- SP Fever, recurrent; SP Leukocytosis; fluctuating; improving -11/23 u/a wbc 15-20, nit neg, leuk +2; ucx C. lusitanae Bcx NTD -11/17 u/a no pyuria; ucx neg Bcx Neg sp cx PsA (R Zosyn; S Gentamycin, levaquin, Cefepime, ceftazidime, Meropenem), P. mirabilis ([place] S) Pneumonia Acute hypoxic resp failure- sp NRB 15L, now VDRF 11/17 - 2ry to COVID19 and superimposed bacterial PNA -11/28 CXR: Slight increased alveolar infiltrates. -11/24 CXR: Right basilar pleural effusion and likely parenchymal consolidation are unchanged sp cx MDR PSA (S Cefepime, Genta, Levaquin) -11/22 CXR: Slight increased right effusion. Right basilar infiltrate again noted. -11/19 CXR: There is been worsening of moderately consolidating right middle lobe pneumonia. -11/17 CXR: Bilateral lower lobe atelectasis/infiltrates, slightly increased. No large pleural effusions. -11/15 CXR: New/increased infiltrates at the left lateral lung base -11/11 CXR: Mild interstitial thickening is slightly improved. -11/10 CXR: Hazy basilar infiltrates left greater than right. sp cx PsA ([place] S), P.mirabilis ([facility] S), MRSA (S Vanco CARLOS 1, bactrim; R tetracycline ) -11/10 SARS-COV2 positive UTI c/w bacteremia -u/a wbc 5-10, nit neg, leuk +1, RBC TNCT; ucx 10-20k E. faecalis (S amp, vanco) -11/10 Bcx 2/4 E. faecalis (S Vancomycin, AMP) CONS bacteremia- likely contaminant -11/10 Bcx 2/ S. 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 Will continue to follow along with you. Discussed with RN and pharm Subjective Allergies: Coded Allergies: No Known Allergies (Unverified , 09/16/19) Subjective afebrile >24hrs Fio2 35% wbc improving off levophed Bcx NTD stool output improving Objective Vital Signs Last 24 Hour Vital Signs Date Time Temp Pulse Resp B/P (MAP) Pulse Ox O2 Delivery O2 Flow Rate FiO2 11/30/19 12:00 75 11/30/19 12:00 75 20 122/51 (74) 100 11/30/19 12:00 35 11/30/19 12:00 Mechanical Ventilator 11/30/19 11:00 74 20 124/52 (76) 100 11/30/19 11:00 71 20 35 11/30/19 10:00 135/56 11/30/19 10:00 74 20 127/55 (79) 100 11/30/19 09:00 100 11/30/19 09:00 77 20 135/56 (82) 100 11/30/19 08:00 75 11/30/19 08:00 35 11/30/19 08:00 Mechanical Ventilator 11/30/19 08:00 97.8 75 20 118/49 (72) 100 11/30/19 07:00 74 20 35 11/30/19 07:00 76 20 112/48 (69) 100 11/30/19 06:30 77 20 130/51 (77) 100 11/30/19 06:00 78 20 130/54 (79) 100 11/30/19 05:30 84 19 120/49 (72) 99 11/30/19 05:00 81 0 128/71 (90) 100 11/30/19 04:00 35 11/30/19 04:00 97.2 80 20 125/67 (86) 100 11/30/19 04:00 Mechanical Ventilator 11/30/19 03:30 80 20 122/67 (85) 100 11/30/19 03:05 85 11/30/19 03:00 81 20 124/72 (89) 100 11/30/19 02:59 85 20 35 11/30/19 02:00 80 20 115/57 (76) 99 80 11/30/19 01:00 81 20 111/55 (73) 97 80 11/30/19 00:00 97.1 81 20 143/55 (84) 98 86 11/30/19 00:00 35 11/30/19 00:00 Mechanical Ventilator 11/29/19 23:30 81 20 142/66 (91) 98 86 11/29/19 23:15 81 11/29/19 23:00 82 20 145/59 (87) 100 84 11/29/19 22:58 84 20 35 11/29/19 22:30 84 20 136/56 (82) 100 85 11/29/19 22:00 86 20 131/54 (79) 100 82 11/29/19 21:30 86 20 130/59 (82) 100 86 11/29/19 21:00 83 21 112/50 (70) 99 80 11/29/19 20:00 Mechanical Ventilator 11/29/19 20:00 97.6 83 20 112/52 (72) 100 81 11/29/19 20:00 35 11/29/19 19:27 75 11/29/19 19:16 87 20 35 11/29/19 19:00 78 20 92/52 (65) 100 78 11/29/19 18:00 84 21 93/52 (66) 100 84 11/29/19 17:00 89 21 93/53 (66) 98 92 11/29/19 16:00 97.8 90 23 93/45 (61) 100 90 11/29/19 16:00 89 11/29/19 16:00 35 11/29/19 16:00 Mechanical Ventilator 11/29/19 15:00 92 22 94/46 (62) 98 92 11/29/19 14:50 85 20 35 35 11/29/19 14:00 92 21 110/55 (73) 100 92 Height (Feet): 6 Height (Inches): 0.00 Weight (Pounds): 163 Objective Gen: critically ill HEENT: ETT in place Lungs: no tacypnea or use of accessory muscles Neuro: lethargic Laboratory Tests Test 11/30/19 03:00 White Blood Count 15.7 K/UL (4.8-10.8) H Red Blood Count 3.25 M/UL (4.70-6.10) L Hemoglobin 9.2 G/DL (14.2-18.0) #L Hematocrit 30.2 % (42.0-52.0) #L Mean Corpuscular Volume 93 FL (80-99) Mean Corpuscular Hemoglobin 28.2 PG (27.0-31.0) Mean Corpuscular Hemoglobin Concent 30.4 G/DL (32.0-36.0) L Red Cell Distribution Width 16.2 % (11.6-14.8) H Platelet Count 197 K/UL (150-450) Mean Platelet Volume 7.0 FL (6.5-10.1) Neutrophils (%) (Auto) % (45.0-75.0) Lymphocytes (%) (Auto) % (20.0-45.0) Monocytes (%) (Auto) % (1.0-10.0) Eosinophils (%) (Auto) % (0.0-3.0) Basophils (%) (Auto) % (0.0-2.0) Differential Total Cells Counted 100 Neutrophils % (Manual) 90 % (45-75) H Lymphocytes % (Manual) 8 % (20-45) L Monocytes % (Manual) 2 % (1-10) Eosinophils % (Manual) 0 % (0-3) Basophils % (Manual) 0 % (0-2) Band Neutrophils 0 % (0-8) Platelet Estimate Adequate Platelet Morphology Normal Hypochromasia 1+ Anisocytosis 1+ Erythrocyte Sedimentation Rate 98 MM/HR (0-20) H Sodium Level 143 MMOL/L (136-145) Potassium Level 4.1 MMOL/L (3.5-5.1) Chloride Level 110 MMOL/L (98-107) H Carbon Dioxide Level 22 MMOL/L (21-32) Anion Gap 11 mmol/L (5-15) Blood Urea Nitrogen 61 mg/dL (7-18) H Creatinine 2.7 MG/DL (0.55-1.30) H Estimat Glomerular Filtration Rate 23.3 mL/min (>60) Glucose Level 108 MG/DL (74-106) H Calcium Level 7.4 MG/DL (8.5-10.1) L Phosphorus Level 4.0 MG/DL (2.5-4.9) Magnesium Level 2.0 MG/DL (1.8-2.4) Total Bilirubin 0.4 MG/DL (0.2-1.0) Aspartate Amino Transf (AST/SGOT) 41 U/L (15-37) H Alanine Aminotransferase (ALT/SGPT) < 6 U/L (12-78) L Alkaline Phosphatase 62 U/L (46-116) C-Reactive Protein, Quantitative 10.1 mg/dL (0.00-0.90) H Total Protein 4.7 G/DL (6.4-8.2) L Albumin 0.9 G/DL (3.4-5.0) L Globulin 3.8 g/dL Albumin/Globulin Ratio 0.2 (1.0-2.7) L Current Medications Medications (Trade) Dose Ordered Sig/Leonor Route PRN Reason Start Time Stop Time Status Last Admin Dose Admin Acetaminophen (Tylenol) 650 mg Q4H PRN GT fever 11/18/19 03:00 12/11/19 02:59 11/28/19 05:07 Allopurinol (allopurinoL) 300 mg DAILY GT 11/21/19 09:00 12/21/19 08:59 11/30/19 08:44 Calcium Gluconate 1 gm/Sodium Chloride 120 ml @ 240 mls/hr Q12HR IVPB 11/22/19 09:00 12/22/19 08:59 11/30/19 08:45 Cefepime HCl 2 gm/ Dextrose 55 ml @ 110 mls/hr Q24H IVPB 11/27/19 21:00 12/04/19 20:59 11/29/19 20:57 Chlorhexidine Gluconate (Danielle-Hex 2%) 1 applic DAILY@2000 TOPIC 11/18/19 20:00 02/16/20 19:59 11/29/19 20:56 Dextrose/Sodium Chloride 1,000 ml @ 50 mls/hr Q20H IV 11/22/19 10:15 12/20/19 10:14 11/29/19 20:57 Heparin Sodium (Porcine) (Heparin 5000 units/ml) 5,000 units EVERY 12 HOURS SUBQ 11/18/19 09:00 12/26/19 08:59 11/30/19 08:45 Midodrine (Pro-Amatine) 10 mg Q8HR GT 11/29/19 14:00 02/20/20 13:59 11/30/19 06:05 Norepinephrine Bitartrate 8 mg/ Dextrose 558 ml @ 0 mls/hr Q24H IV 11/18/19 10:00 12/18/19 09:59 11/23/19 22:22 Ondansetron HCl (Zofran) 4 mg Q6H PRN IVP Nausea & Vomiting 11/18/19 03:00 12/11/19 08:59 Sevelamer Carbonate (Renvela) 800 mg Q12HR GT 11/29/19 21:00 02/20/20 07:59 11/30/19 08:44 Vancomycin HCl (Firvanq) 125 mg FOUR TIMES A DAY GT 11/29/19 18:00 12/05/19 23:59 11/30/19 12:23 Shannon Mark M.D. Nov 30, 2019 13:06
--- NOTE | 2019-11-30 13:31 | Nephrology Progress Note ---
Assessment/Plan Problem List: (1) ARF (acute renal failure) (2) Hyperkalemia (3) DM (diabetes mellitus) (4) Suspected COVID-19 virus infection (5) Sepsis (6) Severe malnutrition Assessment: Severe hypoalbuminemia Assessment his 74-year-old male with multiple Multiple medical problem presents with respiratory symptoms and diarrhea Renal failure most likely prerenal azotemia secondary to dehydration Hyperkalemia on presentation also secondary to dehydration Sepsis pneumonia hypoxia UTI Anemia History of hypertension History of diabetes mellitus Suspected COVID-19 virus infection Hypoalbuminemia Plan C. difficile positive COVID-19 detected November 29: Serum creatinine stable. Off pressors. No dialysis needed today. Discussed with JUSTINO Hernandez. Continue per consultants. November 28: Serum creatinine unchanged. Off pressors. Potassium supplement intravenously ordered. Discussed with JUSTINO Evans. No need for dialysis today. Continue to monitor renal parameters. Change midodrine from PRN to scheduled every 8 hours. November 27: Labs reviewed. No dialysis today. Discussed with RN. Potassium supplement given. Continue to monitor renal parameters. Continue per consultants. November 26: Lab reviewed. Remains full code. Remains intubated. Midodrin changed to PRN. Electrolytes acceptable. Will monitor renal parameters and urine output and dialyze as needed. November 25: Dialyzed yesterday. Lab reviewed. Remains full code. Remains intubated on ventilator. On minimal dose of pressors. 20 mEq potassium chloride IV ordered for low potassium level. November 24: Patient remains intubated. Due for dialysis today. Labs reviewed. Continues to be full code. November 23: Patient was dialyzed yesterday. Labs reviewed. Status quo. Remains full code. Will arrange for dialysis tomorrow. November 22: Patient in ICU. Intubated on ventilator. On low-dose pressors. Urine output labile. Serum creatinine rising. Patient developing acute renal failure. Need urgent dialysis treatment. Will arrange for placement of non- tunneled dialysis catheter as soon as possible. RN states that no family member or next of kin could be contacted at this time. Due to the urgency of the problem and the patient being full code will proceed with placement of dialysis catheter and dialysis treatment as soon as possible. November 21: Patient continues to do poorly. Discussed with RN. Started on Midodrin for BP support. Nephro feeding started. Phosphorus binders started. IV calcium ordered. Continue to monitor renal parameters and urine output. Continue per consultants. Patient remains full code. Per orders. November 20: Serum creatinine continuing to rise. Remains of 100 cc an hour IV fluid. Urine output remains low. Blood pressure also borderline low, on pressors. Continue per consultants. Continue to monitor renal parameters and urine output. Continue to avoid nephrotoxic's. Further deterioration of renal function may lead to dialysis treatment. Will discuss with PMD. November 19: Serum creatinine rising. Urine output decreasing. Will change to IV, D5 normal saline. Will give albumin bolus followed by Lasix 40 mg IV push. Continue to monitor renal parameters and urine output. Continue to avoid nephrotoxic medications as possible. Today's vancomycin level was 22. November 18: Serum creatinine rising. Continues to be full code. Continues to be intubated on ventilator. Remains on IV fluids. Vancomycin levels per pharmacy. Prognosis poor due to sepsis. November 17: Intubated on ventilator in ICU. Will continue half-normal saline 100 cc an hour. Continue per pulmonary and ID. Prognosis poor. Continue to monitor renal parameters. Hydrate with half-normal saline, serum creatinine now at its lowest today. monitor electrolytes Will change the feeding to Nepro and monitor her potassium and other electrolytes Continue per ID Keep the blood pressure and blood sugar in check Monitor renal parameters Previously: Urine studies Monitor intake and output Cultures including stool for C. difficile Per orders Patient's CODE STATUS is full Subjective ROS Limited/Unobtainable: Yes Objective Objective Last 24 Hour Vital Signs Date Time Temp Pulse Resp B/P (MAP) Pulse Ox O2 Delivery O2 Flow Rate FiO2 11/30/19 13:00 80 20 143/57 (85) 100 11/30/19 12:00 75 11/30/19 12:00 75 20 122/51 (74) 100 11/30/19 12:00 35 11/30/19 12:00 Mechanical Ventilator 11/30/19 11:00 74 20 124/52 (76) 100 11/30/19 11:00 71 20 35 11/30/19 10:00 135/56 11/30/19 10:00 74 20 127/55 (79) 100 11/30/19 09:00 100 11/30/19 09:00 77 20 135/56 (82) 100 11/30/19 08:00 75 11/30/19 08:00 35 11/30/19 08:00 Mechanical Ventilator 11/30/19 08:00 97.8 75 20 118/49 (72) 100 11/30/19 07:00 74 20 35 11/30/19 07:00 76 20 112/48 (69) 100 11/30/19 06:30 77 20 130/51 (77) 100 11/30/19 06:00 78 20 130/54 (79) 100 11/30/19 05:30 84 19 120/49 (72) 99 11/30/19 05:00 81 0 128/71 (90) 100 11/30/19 04:00 35 11/30/19 04:00 97.2 80 20 125/67 (86) 100 11/30/19 04:00 Mechanical Ventilator 11/30/19 03:30 80 20 122/67 (85) 100 11/30/19 03:05 85 11/30/19 03:00 81 20 124/72 (89) 100 11/30/19 02:59 85 20 35 11/30/19 02:00 80 20 115/57 (76) 99 80 11/30/19 01:00 81 20 111/55 (73) 97 80 11/30/19 00:00 97.1 81 20 143/55 (84) 98 86 11/30/19 00:00 35 11/30/19 00:00 Mechanical Ventilator 11/29/19 23:30 81 20 142/66 (91) 98 86 11/29/19 23:15 81 11/29/19 23:00 82 20 145/59 (87) 100 84 11/29/19 22:58 84 20 35 11/29/19 22:30 84 20 136/56 (82) 100 85 11/29/19 22:00 86 20 131/54 (79) 100 82 11/29/19 21:30 86 20 130/59 (82) 100 86 11/29/19 21:00 83 21 112/50 (70) 99 80 11/29/19 20:00 Mechanical Ventilator 11/29/19 20:00 97.6 83 20 112/52 (72) 100 81 11/29/19 20:00 35 11/29/19 19:27 75 11/29/19 19:16 87 20 35 11/29/19 19:00 78 20 92/52 (65) 100 78 11/29/19 18:00 84 21 93/52 (66) 100 84 11/29/19 17:00 89 21 93/53 (66) 98 92 11/29/19 16:00 97.8 90 23 93/45 (61) 100 90 11/29/19 16:00 89 11/29/19 16:00 35 11/29/19 16:00 Mechanical Ventilator 11/29/19 15:00 92 22 94/46 (62) 98 92 11/29/19 14:50 85 20 35 35 11/29/19 14:00 92 21 110/55 (73) 100 92 Intake and Output 11/29/19 11/30/19 19:00 07:00 Intake Total 1520 ml 1219.167 ml Output Total 640 ml 390 ml Balance 880 ml 829.167 ml Free Water 90 ml IV Total 920 ml 774.167 ml Tube Feeding 420 ml 105 ml Blood Product 250 ml Other 180 ml Output Urine Total 240 ml 190 ml Stool Total 400 ml 200 ml Laboratory Tests 11/30/19 03:00: White Blood Count 15.7H, Red Blood Count 3.25L, Hemoglobin 9.2#L, Hematocrit 30.2#L, Mean Corpuscular Volume 93, Mean Corpuscular Hemoglobin 28.2, Mean Corpuscular Hemoglobin Concent 30.4L, Red Cell Distribution Width 16.2H, Platelet Count 197, Mean Platelet Volume 7.0, Neutrophils (%) (Auto) , Lymphocytes (%) (Auto) , Monocytes (%) (Auto) , Eosinophils (%) (Auto) , Basophils (%) (Auto) , Differential Total Cells Counted 100, Neutrophils % ( Manual) 90H, Lymphocytes % (Manual) 8L, Monocytes % (Manual) 2, Eosinophils % ( Manual) 0, Basophils % (Manual) 0, Band Neutrophils 0, Platelet Estimate Adequate, Platelet Morphology Normal, Hypochromasia 1+, Anisocytosis 1+, Erythrocyte Sedimentation Rate 98H, Sodium Level 143, Potassium Level 4.1, Chloride Level 110H, Carbon Dioxide Level 22, Anion Gap 11, Blood Urea Nitrogen 61H, Creatinine 2.7H, Estimat Glomerular Filtration Rate 23.3, Glucose Level 108H, Calcium Level 7.4L, Phosphorus Level 4.0, Magnesium Level 2.0, Total Bilirubin 0.4, Aspartate Amino Transf (AST/SGOT) 41H, Alanine Aminotransferase ( ALT/SGPT) < 6L, Alkaline Phosphatase 62, C-Reactive Protein, Quantitative 10.1H , Total Protein 4.7L, Albumin 0.9L, Globulin 3.8, Albumin/Globulin Ratio 0.2L Height (Feet): 6 Height (Inches): 0.00 Weight (Pounds): 163 General Appearance: no apparent distress Cardiovascular: tachycardia Respiratory/Chest: decreased breath sounds Abdomen: soft, other Objective No other change Ricardo Choudhary MD Nov 30, 2019 13:31
--- NOTE | 2019-11-30 13:44 | Surgery Progress Note ---
Surgery Progress Note Subjective Additional Comments ill appearing labs noted micro reviewed Objective Last 24 Hour Vital Signs Date Time Temp Pulse Resp B/P (MAP) Pulse Ox O2 Delivery O2 Flow Rate FiO2 11/30/19 13:00 80 20 143/57 (85) 100 11/30/19 12:00 75 11/30/19 12:00 75 20 122/51 (74) 100 11/30/19 12:00 35 11/30/19 12:00 Mechanical Ventilator 11/30/19 11:00 74 20 124/52 (76) 100 11/30/19 11:00 71 20 35 11/30/19 10:00 135/56 11/30/19 10:00 74 20 127/55 (79) 100 11/30/19 09:00 100 11/30/19 09:00 77 20 135/56 (82) 100 11/30/19 08:00 75 11/30/19 08:00 35 11/30/19 08:00 Mechanical Ventilator 11/30/19 08:00 97.8 75 20 118/49 (72) 100 11/30/19 07:00 74 20 35 11/30/19 07:00 76 20 112/48 (69) 100 11/30/19 06:30 77 20 130/51 (77) 100 11/30/19 06:00 78 20 130/54 (79) 100 11/30/19 05:30 84 19 120/49 (72) 99 11/30/19 05:00 81 0 128/71 (90) 100 11/30/19 04:00 35 11/30/19 04:00 97.2 80 20 125/67 (86) 100 11/30/19 04:00 Mechanical Ventilator 11/30/19 03:30 80 20 122/67 (85) 100 11/30/19 03:05 85 11/30/19 03:00 81 20 124/72 (89) 100 11/30/19 02:59 85 20 35 11/30/19 02:00 80 20 115/57 (76) 99 80 11/30/19 01:00 81 20 111/55 (73) 97 80 11/30/19 00:00 97.1 81 20 143/55 (84) 98 86 11/30/19 00:00 35 11/30/19 00:00 Mechanical Ventilator 11/29/19 23:30 81 20 142/66 (91) 98 86 11/29/19 23:15 81 11/29/19 23:00 82 20 145/59 (87) 100 84 11/29/19 22:58 84 20 35 11/29/19 22:30 84 20 136/56 (82) 100 85 11/29/19 22:00 86 20 131/54 (79) 100 82 11/29/19 21:30 86 20 130/59 (82) 100 86 11/29/19 21:00 83 21 112/50 (70) 99 80 11/29/19 20:00 Mechanical Ventilator 11/29/19 20:00 97.6 83 20 112/52 (72) 100 81 11/29/19 20:00 35 11/29/19 19:27 75 11/29/19 19:16 87 20 35 11/29/19 19:00 78 20 92/52 (65) 100 78 11/29/19 18:00 84 21 93/52 (66) 100 84 11/29/19 17:00 89 21 93/53 (66) 98 92 11/29/19 16:00 97.8 90 23 93/45 (61) 100 90 11/29/19 16:00 89 11/29/19 16:00 35 11/29/19 16:00 Mechanical Ventilator 11/29/19 15:00 92 22 94/46 (62) 98 92 11/29/19 14:50 85 20 35 35 11/29/19 14:00 92 21 110/55 (73) 100 92 I&O Intake and Output 11/29/19 11/30/19 19:00 07:00 Intake Total 1520 ml 1219.167 ml Output Total 640 ml 390 ml Balance 880 ml 829.167 ml Free Water 90 ml IV Total 920 ml 774.167 ml Tube Feeding 420 ml 105 ml Blood Product 250 ml Other 180 ml Output Urine Total 240 ml 190 ml Stool Total 400 ml 200 ml Dressing: other Wound: other Drains: other Cardiovascular: RSR Respiratory: decreased breath sounds Abdomen: soft, non-tender, present bowel sounds Extremities: no cyanosis Laboratory Tests Test 11/30/19 03:00 White Blood Count 15.7 K/UL (4.8-10.8) H Red Blood Count 3.25 M/UL (4.70-6.10) L Hemoglobin 9.2 G/DL (14.2-18.0) #L Hematocrit 30.2 % (42.0-52.0) #L Mean Corpuscular Volume 93 FL (80-99) Mean Corpuscular Hemoglobin 28.2 PG (27.0-31.0) Mean Corpuscular Hemoglobin Concent 30.4 G/DL (32.0-36.0) L Red Cell Distribution Width 16.2 % (11.6-14.8) H Platelet Count 197 K/UL (150-450) Mean Platelet Volume 7.0 FL (6.5-10.1) Neutrophils (%) (Auto) % (45.0-75.0) Lymphocytes (%) (Auto) % (20.0-45.0) Monocytes (%) (Auto) % (1.0-10.0) Eosinophils (%) (Auto) % (0.0-3.0) Basophils (%) (Auto) % (0.0-2.0) Differential Total Cells Counted 100 Neutrophils % (Manual) 90 % (45-75) H Lymphocytes % (Manual) 8 % (20-45) L Monocytes % (Manual) 2 % (1-10) Eosinophils % (Manual) 0 % (0-3) Basophils % (Manual) 0 % (0-2) Band Neutrophils 0 % (0-8) Platelet Estimate Adequate Platelet Morphology Normal Hypochromasia 1+ Anisocytosis 1+ Erythrocyte Sedimentation Rate 98 MM/HR (0-20) H Sodium Level 143 MMOL/L (136-145) Potassium Level 4.1 MMOL/L (3.5-5.1) Chloride Level 110 MMOL/L (98-107) H Carbon Dioxide Level 22 MMOL/L (21-32) Anion Gap 11 mmol/L (5-15) Blood Urea Nitrogen 61 mg/dL (7-18) H Creatinine 2.7 MG/DL (0.55-1.30) H Estimat Glomerular Filtration Rate 23.3 mL/min (>60) Glucose Level 108 MG/DL (74-106) H Calcium Level 7.4 MG/DL (8.5-10.1) L Phosphorus Level 4.0 MG/DL (2.5-4.9) Magnesium Level 2.0 MG/DL (1.8-2.4) Total Bilirubin 0.4 MG/DL (0.2-1.0) Aspartate Amino Transf (AST/SGOT) 41 U/L (15-37) H Alanine Aminotransferase (ALT/SGPT) < 6 U/L (12-78) L Alkaline Phosphatase 62 U/L (46-116) C-Reactive Protein, Quantitative 10.1 mg/dL (0.00-0.90) H Total Protein 4.7 G/DL (6.4-8.2) L Albumin 0.9 G/DL (3.4-5.0) L Globulin 3.8 g/dL Albumin/Globulin Ratio 0.2 (1.0-2.7) L Plan Problems: (1) Decubitus skin ulcer Assessment & Plan: Pt presented on admission with large sacral wound. Base of wound with areas that area purple and indurated sacrococcygeal,L sacrum/L gluteus,Scattered wounds with maceration L gluteus, one wound R sacrum with Biofilm, Surrounding non-blanching erythema entire buttocks. Small dry scabbed area noted to lumbar area. Unstageable Pressure Injury L heel. Base of wound is necrotic with surrounding non-blanching erythema. Tx.plan: Apply Moisture Barrier Paste to Buttocks. Cover Sacrum, R and L gluteal cheeks with Optifoam drsgs. Change every 3 days and prn. Apply Betadine to L heel. Cover with Optifoam drsg. Change every 3 days and prn. Reposition at least every 2hours or as tolerated. Place Pillow between knees. Off-load heels with Pillow. APM/BRUNILDA Mattress overlay. DAILY ESTIMATED NEEDS: Needs based on wt loss, underweight, wound/ 59kg 30-35 kcals/kg 6814-2088 total kcals 1.25-2 g protein/kg 74-118 g total protein 25-30 mL/kg 6179-1692 total fluid mLs NUTRITION DIAGNOSIS: * Increased kcal/prot intake needs R/T wound healing, suspected recent significant wt loss as evidenced by admitted w/ wounds @ lt posterior heel, R lower back, sacrum as per photos, pending eval, suspected significant wt loss of 40lbs/ 23.7% in <5 months, currently @ 81% IBW. . * Swallowing difficulty R/T dysphagia, h/o CVA as evidenced by PEG dependent. CURRENT TF:Glucerna 1.2 @65ml/hr x24 hrs ENTERAL NUTRITION RECOMMENDATIONS: NEPRO @45ml/hr x24 hrs to provide 1080ml, 1944 kcal, 87g pro, 785ml free H2O - Rec TF change for lower K content (1145mg in Nepro @45 vs 3151mg in Glucerna 1.2 @65) - Start at 25ml/hr advance as tolerated 10ml/hr q4-6 hrs - HOB over 30 degrees - Increased H20 flush to 200ml q4 hrs ADDITIONAL RECOMMENDATIONS: 1) Calibrated bedscale wt -> per SNF: HT=59" and UD=182ocj (10/20/19) 2) Wound healing: Add Vit C 500mg QD/ or dosing per nephro Add Osbaldo BID via PEG w/ TF order 3) Monitor lytes: monitor K trend, need for renal TF (K 5.3, 5.5) 4) NISS w/ TF (h/o DM) 5) Monitor for diarrhea, rec probiotics (2) Sepsis Assessment & Plan: 74-year-old male multi-medical comorbidities admitted for respiratory deficiency currently tachypneic, leukocytosis, malnutrition, hypoalbuminemia. Complete physical exam performed identified areas of concerned given patient's comorbidities current condition high risk for deteriorationNo active infection identified from patient's wounds and likely respiratory nature. Chest x-ray reviewed. No acute surgical intervention planned at this time Preventive measures IV antibiotics per infectious disease Okay for feeding once stable respiratory Appreciate Pulm input c diff positive on vanco blood cx noted worsening leukocytosis ID abx noted heme input noted There are increasing basilar opacities on the left noted. The heart size is normal. The pleural spaces are clear. 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
[2019-11-30] MEDS: D5NS 1,000 ML IV SCH (15:30)
--- NOTE | 2019-11-30 16:12 | General Progress Note ---
Assessment/Plan Problem List: (1) DM (diabetes mellitus) ICD Codes: E11.9 - Type 2 diabetes mellitus without complications SNOMED: 23597804 (2) ARF (acute renal failure) ICD Codes: N17.9 - Acute kidney failure, unspecified SNOMED: 26057794 Qualifiers: Qualified Codes: N17.9 - Acute kidney failure, unspecified (3) Aspiration pneumonia ICD Codes: J69.0 - Pneumonitis due to inhalation of food and vomit SNOMED: 729752524 (4) UTI (urinary tract infection) ICD Codes: N39.0 - Urinary tract infection, site not specified SNOMED: 50448222 Qualifiers: Qualified Codes: N30.00 - Acute cystitis without hematuria (5) Hypertension ICD Codes: I10 - Essential (primary) hypertension SNOMED: 38957717 (6) Anemia ICD Codes: D64.9 - Anemia, unspecified SNOMED: 865989744 Qualifiers: Qualified Codes: D64.9 - Anemia, unspecified (7) Respiratory failure with hypoxia ICD Codes: J96.91 - Respiratory failure, unspecified with hypoxia SNOMED: 00194154023301225 Qualifiers: Qualified Codes: J96.01 - Acute respiratory failure with hypoxia (8) Suspected COVID-19 virus infection ICD Codes: Z20.828 - Contact with and (suspected) exposure to other viral communicable diseases SNOMED: 141225440 Status: unchanged Assessment/Plan: vent abx pt diet cbc bmp am Subjective Allergies: Coded Allergies: No Known Allergies (Unverified , 09/16/19) All Systems: reviewed and negative except above Subjective intubated sedated in icu Objective Last 24 Hour Vital Signs Date Time Temp Pulse Resp B/P (MAP) Pulse Ox O2 Delivery O2 Flow Rate FiO2 11/30/19 16:00 35 11/30/19 16:00 Mechanical Ventilator 11/30/19 16:00 97.4 77 20 119/49 (72) 100 11/30/19 15:00 81 20 35 11/30/19 15:00 81 21 115/53 (73) 100 11/30/19 14:00 78 20 132/48 (76) 100 11/30/19 13:00 80 20 143/57 (85) 100 11/30/19 12:00 75 11/30/19 12:00 75 20 122/51 (74) 100 11/30/19 12:00 35 11/30/19 12:00 Mechanical Ventilator 11/30/19 11:00 74 20 124/52 (76) 100 11/30/19 11:00 71 20 35 11/30/19 10:00 135/56 11/30/19 10:00 74 20 127/55 (79) 100 11/30/19 09:00 100 11/30/19 09:00 77 20 135/56 (82) 100 11/30/19 08:00 75 11/30/19 08:00 35 11/30/19 08:00 Mechanical Ventilator 11/30/19 08:00 97.8 75 20 118/49 (72) 100 11/30/19 07:00 74 20 35 11/30/19 07:00 76 20 112/48 (69) 100 11/30/19 06:30 77 20 130/51 (77) 100 11/30/19 06:00 78 20 130/54 (79) 100 11/30/19 05:30 84 19 120/49 (72) 99 11/30/19 05:00 81 0 128/71 (90) 100 11/30/19 04:00 35 11/30/19 04:00 97.2 80 20 125/67 (86) 100 11/30/19 04:00 Mechanical Ventilator 11/30/19 03:30 80 20 122/67 (85) 100 11/30/19 03:05 85 11/30/19 03:00 81 20 124/72 (89) 100 11/30/19 02:59 85 20 35 11/30/19 02:00 80 20 115/57 (76) 99 80 11/30/19 01:00 81 20 111/55 (73) 97 80 11/30/19 00:00 97.1 81 20 143/55 (84) 98 86 11/30/19 00:00 35 11/30/19 00:00 Mechanical Ventilator 11/29/19 23:30 81 20 142/66 (91) 98 86 11/29/19 23:15 81 11/29/19 23:00 82 20 145/59 (87) 100 84 11/29/19 22:58 84 20 35 11/29/19 22:30 84 20 136/56 (82) 100 85 11/29/19 22:00 86 20 131/54 (79) 100 82 11/29/19 21:30 86 20 130/59 (82) 100 86 11/29/19 21:00 83 21 112/50 (70) 99 80 11/29/19 20:00 Mechanical Ventilator 11/29/19 20:00 97.6 83 20 112/52 (72) 100 81 11/29/19 20:00 35 11/29/19 19:27 75 11/29/19 19:16 87 20 35 11/29/19 19:00 78 20 92/52 (65) 100 78 11/29/19 18:00 84 21 93/52 (66) 100 84 11/29/19 17:00 89 21 93/53 (66) 98 92 Intake and Output 11/29/19 11/30/19 19:00 07:00 Intake Total 1520 ml 1219.167 ml Output Total 640 ml 390 ml Balance 880 ml 829.167 ml Free Water 90 ml IV Total 920 ml 774.167 ml Tube Feeding 420 ml 105 ml Blood Product 250 ml Other 180 ml Output Urine Total 240 ml 190 ml Stool Total 400 ml 200 ml Laboratory Tests 11/30/19 03:00: White Blood Count 15.7H, Red Blood Count 3.25L, Hemoglobin 9.2#L, Hematocrit 30.2#L, Mean Corpuscular Volume 93, Mean Corpuscular Hemoglobin 28.2, Mean Corpuscular Hemoglobin Concent 30.4L, Red Cell Distribution Width 16.2H, Platelet Count 197, Mean Platelet Volume 7.0, Neutrophils (%) (Auto) , Lymphocytes (%) (Auto) , Monocytes (%) (Auto) , Eosinophils (%) (Auto) , Basophils (%) (Auto) , Differential Total Cells Counted 100, Neutrophils % ( Manual) 90H, Lymphocytes % (Manual) 8L, Monocytes % (Manual) 2, Eosinophils % ( Manual) 0, Basophils % (Manual) 0, Band Neutrophils 0, Platelet Estimate Adequate, Platelet Morphology Normal, Hypochromasia 1+, Anisocytosis 1+, Erythrocyte Sedimentation Rate 98H, Sodium Level 143, Potassium Level 4.1, Chloride Level 110H, Carbon Dioxide Level 22, Anion Gap 11, Blood Urea Nitrogen 61H, Creatinine 2.7H, Estimat Glomerular Filtration Rate 23.3, Glucose Level 108H, Calcium Level 7.4L, Phosphorus Level 4.0, Magnesium Level 2.0, Total Bilirubin 0.4, Aspartate Amino Transf (AST/SGOT) 41H, Alanine Aminotransferase ( ALT/SGPT) < 6L, Alkaline Phosphatase 62, C-Reactive Protein, Quantitative 10.1H , Total Protein 4.7L, Albumin 0.9L, Globulin 3.8, Albumin/Globulin Ratio 0.2L Height (Feet): 6 Height (Inches): 0.00 Weight (Pounds): 163 General Appearance: lethargic EENT: normal ENT inspection Neck: normal alignment Cardiovascular: normal rate, regular rhythm Respiratory/Chest: no respiratory distress, no accessory muscle use Extremities: normal inspection Skin: normal pigmentation Juan Singh DO Nov 30, 2019 16:12
[2019-11-30] MEDS: Dyna-Hex 2% Top Sol 2oz TOPIC SCH (20:21)
[2019-11-30] MEDS: Cefepime 2gm in D5W 55ml IVPB SCH (20:21)
--- NOTE | 2019-11-30 22:45 | Electroencephalogram ---
DATE OF PROCEDURE: 11/29/2019 REQUESTING PHYSICIAN: Chandler Momin MD. READING PHYSICIAN: Tristan Diego MD. PROCEDURE PERFORMED: EEG. HISTORY: This EEG was performed on a 74-year-old lady with a history of respiratory failure associated with a COVID-19 infection. The purpose of this EEG was to evaluate the patient for the degree and type of cerebral dysfunction as the patient has been in a comatose state. TECHNICAL NOTE: This EEG was performed on a [employer] with electrodes placed on the scalp according to the International 10-20 system. A special scalp-to scalp montage with double distance electrodes was utilized. The EEG was technically satisfactory and was performed while the patient was in the reportedly comatose state. OBSERVATIONS: In the reportedly comatose state, a low amplitude slow background in the 4-5 Hz theta and 1.5-2 Hz delta range was seen. Some spontaneous variability was noted throughout the tracing. No reactivity to external stimulation was seen. No definite focal abnormalities or epileptiform discharges were noted. IMPRESSION: This is an abnormal EEG characterized by a low amplitude slow background in the theta and delta range, with some minimal spontaneous variability, but no reactivity to external stimuli. COMMENT: This study is consistent with an encephalopathy of a severe degree. Clinical correlation is recommended. Tristan Diego M.D., M.S.P.H. Clinical Neurophysiologist DR: PURVI JOB#: [id number] MELINDA
[2019-12-01] VITALS (30 sets, daily range): BP systolic 91–145; BP diastolic 36–68
[2019-12-01 04:32] LABS: BASOPHILS % (AUTO) 0.5 % (0.0-2.0); EOSINOPHILS % (AUTO) 0.1 % (0.0-3.0); HEMOGLOBIN 8.7 G/DL (14.2-18.0); LYMPHOCYTES % (AUTO) 11.9 % (20.0-45.0); MEAN CORPUSCULAR VOLUME 92 FL (80-99); MONOCYTES % (AUTO) 3.4 % (1.0-10.0); NEUTROPHILS % (AUTO) 84.1 % (45.0-75.0); PLATELET COUNT 213 K/UL (150-450); RED BLOOD COUNT 3.04 M/UL (4.70-6.10); RED CELL DISTRIBUTION WIDTH 16.5 % (11.6-14.8)
[2019-12-01 05:19] LABS: ALANINE AMINOTRANSFERASE 13 U/L (12-78); ALBUMIN 0.8 G/DL (3.4-5.0); ALBUMIN/GLOBULIN RATIO 0.2 (1.0-2.7); ALKALINE PHOSPHATASE 70 U/L (46-116); ANION GAP 12 mmol/L (5-15); ASPARTATE AMINO TRANSFERASE 39 U/L (15-37); BILIRUBIN,TOTAL 0.2 MG/DL (0.2-1.0); BLOOD UREA NITROGEN 63 mg/dL (7-18); CALCIUM 7.6 MG/DL (8.5-10.1); CARBON DIOXIDE 21 MMOL/L (21-32); CHLORIDE 111 MMOL/L (98-107); CREATININE 2.7 MG/DL (0.55-1.30); PHOSPHORUS 4.4 MG/DL (2.5-4.9); POTASSIUM 3.7 MMOL/L (3.5-5.1); SODIUM 144 MMOL/L (136-145)
[2019-12-01] MEDS: Midodrine 10mg tab GT SCH ×3 (05:33→19:46)
[2019-12-01] MEDS: Renvela 800mg Pkt GT SCH ×2 (08:18→19:47)
[2019-12-01] MEDS: Calcium Gluconate 10% 1 GM in NS 110 ML IVPB SCH (08:19)
[2019-12-01] MEDS: Heparin 5000 units/ml inj SUBQ SCH ×2 (08:20→19:45)
[2019-12-01] MEDS: D5NS 1,000 ML IV SCH (08:20)
[2019-12-01] MEDS: Norepinephrine Bitartrate 8 MG in D5W 500ml 550 ML IV SCH (10:00)
--- NOTE | 2019-12-01 10:16 | Infectious Diseases Prog Note ---
Assessment/Plan Assessment/Plan Assessment: PEA arrest> unstable SVT s/p cardioversion 11/17 Septic shock- SP Fever, recurrent; SP Leukocytosis; fluctuating; improving -11/23 u/a wbc 15-20, nit neg, leuk +2; ucx C. lusitanae Bcx Neg -11/17 u/a no pyuria; ucx neg Bcx Neg sp cx PsA (R Zosyn; S Gentamycin, levaquin, Cefepime, ceftazidime, Meropenem), P. mirabilis ([place] S) Pneumonia Acute hypoxic resp failure- sp NRB 15L, now VDRF 11/17 - 2ry to COVID19 and superimposed bacterial PNA -11/28 CXR: Slight increased alveolar infiltrates. -11/24 CXR: Right basilar pleural effusion and likely parenchymal consolidation are unchanged sp cx MDR PSA (S Cefepime, Genta, Levaquin) -11/22 CXR: Slight increased right effusion. Right basilar infiltrate again noted. -11/19 CXR: There is been worsening of moderately consolidating right middle lobe pneumonia. -11/17 CXR: Bilateral lower lobe atelectasis/infiltrates, slightly increased. No large pleural effusions. -11/15 CXR: New/increased infiltrates at the left lateral lung base -11/11 CXR: Mild interstitial thickening is slightly improved. -11/10 CXR: Hazy basilar infiltrates left greater than right. sp cx PsA ([place] S), P.mirabilis ([facility] S), MRSA (S Vanco CARLOS 1, bactrim; R tetracycline ) -11/10 SARS-COV2 positive UTI c/w bacteremia -u/a wbc 5-10, nit neg, leuk +1, RBC TNCT; ucx 10-20k E. faecalis (S amp, vanco) -11/10 Bcx 2/4 E. faecalis (S Vancomycin, AMP) CONS bacteremia- likely contaminant -11/10 Bcx 2/ S. 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 Will continue to follow along with you. Discussed with RN and pharm Subjective Allergies: Coded Allergies: No Known Allergies (Unverified , 09/16/19) Subjective afebrile >72hrs wbc improving off levophed Objective Vital Signs Last 24 Hour Vital Signs Date Time Temp Pulse Resp B/P (MAP) Pulse Ox O2 Delivery O2 Flow Rate FiO2 12/01/19 08:00 35 12/01/19 07:20 77 20 35 12/01/19 07:00 76 20 126/68 (87) 100 12/01/19 06:00 76 20 108/44 (65) 12/01/19 05:00 78 20 102/43 (62) 12/01/19 04:00 35 12/01/19 04:00 Mechanical Ventilator 12/01/19 04:00 97.2 77 19 101/43 (62) 98 12/01/19 03:15 80 20 35 12/01/19 03:05 80 12/01/19 03:00 80 19 91/49 (63) 99 12/01/19 02:00 76 0 109/46 (67) 100 12/01/19 01:00 75 20 109/53 (71) 100 12/01/19 00:00 76 20 109/48 (68) 100 12/01/19 00:00 Mechanical Ventilator 12/01/19 00:00 35 11/30/19 23:05 76 20 35 11/30/19 23:02 75 11/30/19 23:00 74 20 110/53 (72) 100 11/30/19 22:00 78 20 111/51 (71) 100 11/30/19 21:00 97.1 79 20 114/55 (74) 100 11/30/19 20:00 Mechanical Ventilator 11/30/19 20:00 96.7 75 20 120/47 (71) 100 11/30/19 20:00 35 11/30/19 19:44 76 11/30/19 19:00 76 20 35 11/30/19 19:00 75 20 123/54 (77) 100 11/30/19 18:00 73 20 123/53 (76) 100 11/30/19 17:00 76 20 116/49 (71) 100 11/30/19 16:00 35 11/30/19 16:00 Mechanical Ventilator 11/30/19 16:00 97.4 77 20 119/49 (72) 100 11/30/19 16:00 79 11/30/19 15:00 81 20 35 11/30/19 15:00 81 21 115/53 (73) 100 11/30/19 14:00 78 20 132/48 (76) 100 11/30/19 13:00 80 20 143/57 (85) 100 11/30/19 12:00 75 11/30/19 12:00 75 20 122/51 (74) 100 11/30/19 12:00 35 11/30/19 12:00 Mechanical Ventilator 11/30/19 11:00 74 20 124/52 (76) 100 11/30/19 11:00 71 20 35 Height (Feet): 6 Height (Inches): 0.00 Weight (Pounds): 162 Objective Gen: critically ill HEENT: ETT in place Lungs: no tacypnea or use of accessory muscles Neuro: lethargic Laboratory Tests Test 12/01/19 04:00 12/01/19 07:19 White Blood Count 14.0 K/UL (4.8-10.8) H Red Blood Count 3.04 M/UL (4.70-6.10) L Hemoglobin 8.7 G/DL (14.2-18.0) L Hematocrit 28.0 % (42.0-52.0) L Mean Corpuscular Volume 92 FL (80-99) Mean Corpuscular Hemoglobin 28.5 PG (27.0-31.0) Mean Corpuscular Hemoglobin Concent 30.9 G/DL (32.0-36.0) L Red Cell Distribution Width 16.5 % (11.6-14.8) H Platelet Count 213 K/UL (150-450) Mean Platelet Volume 7.2 FL (6.5-10.1) Neutrophils (%) (Auto) 84.1 % (45.0-75.0) H Lymphocytes (%) (Auto) 11.9 % (20.0-45.0) L Monocytes (%) (Auto) 3.4 % (1.0-10.0) Eosinophils (%) (Auto) 0.1 % (0.0-3.0) Basophils (%) (Auto) 0.5 % (0.0-2.0) Sodium Level 144 MMOL/L (136-145) Potassium Level 3.7 MMOL/L (3.5-5.1) Chloride Level 111 MMOL/L (98-107) H Carbon Dioxide Level 21 MMOL/L (21-32) Anion Gap 12 mmol/L (5-15) Blood Urea Nitrogen 63 mg/dL (7-18) H Creatinine 2.7 MG/DL (0.55-1.30) H Estimat Glomerular Filtration Rate 23.3 mL/min (>60) Glucose Level 109 MG/DL (74-106) H Calcium Level 7.6 MG/DL (8.5-10.1) L Phosphorus Level 4.4 MG/DL (2.5-4.9) Magnesium Level 2.1 MG/DL (1.8-2.4) Total Bilirubin 0.2 MG/DL (0.2-1.0) Aspartate Amino Transf (AST/SGOT) 39 U/L (15-37) H Alanine Aminotransferase (ALT/SGPT) 13 U/L (12-78) Alkaline Phosphatase 70 U/L (46-116) Total Protein 4.5 G/DL (6.4-8.2) L Albumin 0.8 G/DL (3.4-5.0) L Globulin 3.7 g/dL Albumin/Globulin Ratio 0.2 (1.0-2.7) L Arterial Blood pH 7.304 (7.350-7.450) Arterial Blood Partial Pressure CO2 39.2 mmHg (35.0-45.0) Arterial Blood Partial Pressure O2 78.3 mmHg (75.0-100.0) Arterial Blood HCO3 19.0 mmol/L (22.0-26.0) L Arterial Blood Oxygen Saturation 94.5 % (95-100) L Arterial Blood Base Excess -6.8 (-2-2) L Michael Test Positive Current Medications Medications (Trade) Dose Ordered Sig/Leonor Route PRN Reason Start Time Stop Time Status Last Admin Dose Admin Acetaminophen (Tylenol) 650 mg Q4H PRN GT fever 11/18/19 03:00 12/11/19 02:59 11/28/19 05:07 Allopurinol (allopurinoL) 300 mg DAILY GT 11/21/19 09:00 12/21/19 08:59 12/01/19 08:18 Calcium Gluconate 1 gm/Sodium Chloride 120 ml @ 240 mls/hr Q12HR IVPB 11/22/19 09:00 12/22/19 08:59 12/01/19 08:19 Cefepime HCl 2 gm/ Dextrose 55 ml @ 110 mls/hr Q24H IVPB 11/27/19 21:00 12/04/19 20:59 11/30/19 20:21 Chlorhexidine Gluconate (Danielle-Hex 2%) 1 applic DAILY@2000 TOPIC 11/18/19 20:00 02/16/20 19:59 11/30/19 20:21 Dextrose/Sodium Chloride 1,000 ml @ 50 mls/hr Q20H IV 11/22/19 10:15 12/20/19 10:14 12/01/19 08:20 Fidaxomicin (Dificid) 200 mg EVERY 12 HOURS ORAL 11/30/19 21:00 12/07/19 20:59 12/01/19 08:18 Heparin Sodium (Porcine) (Heparin 5000 units/ml) 5,000 units EVERY 12 HOURS SUBQ 11/18/19 09:00 12/26/19 08:59 12/01/19 08:20 Midodrine (Pro-Amatine) 10 mg Q8HR GT 11/29/19 14:00 02/20/20 13:59 12/01/19 05:33 Norepinephrine Bitartrate 8 mg/ Dextrose 558 ml @ 0 mls/hr Q24H IV 11/18/19 10:00 12/18/19 09:59 11/23/19 22:22 Ondansetron HCl (Zofran) 4 mg Q6H PRN IVP Nausea & Vomiting 11/18/19 03:00 12/11/19 08:59 Sevelamer Carbonate (Renvela) 800 mg Q12HR GT 11/29/19 21:00 02/20/20 07:59 12/01/19 08:18 Shannon Mark M.D. Dec 01, 2019 10:16
--- NOTE | 2019-12-01 11:34 | Pulmonolgy Critical Care Note ---
Critical Care - Asmt/Plan Problems: (1) Acute respiratory failure (2) Cardiac arrest (3) Bacteremia Assessment & Plan: enterocococus fecalis in blood. Proteus and Pseudomonas in sputum. (4) 2019 novel coronavirus disease (COVID-19) (5) ARF (acute renal failure) (6) Aspiration pneumonia (7) Ventricular tachyarrhythmia (8) DM (diabetes mellitus) Respiratory: monitor respiratory rate, adjust FIO2, CXR Cardiac: continue pressors, continue to monitor HR/BP Renal: F/U I&O, keep IV fluid, check electrolytes Infectious Disease: check cultures Gastrointestinal: continue feedings/current rate Endocrine: monitor blood sugar, continue sliding scale insulin Hematologic: monitor H/H, transfuse if hgb<8.5 Neurologic: PRN Ativan, PRN Morphine, keep patient comfortable Disposition: keep in ICU Notes Reviewed: feltmaker and weigher, cardio, renal 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, consultants, home health care case managerindustrial safety and health manager - Objective Last 24 Hour Vital Signs Date Time Temp Pulse Resp B/P (MAP) Pulse Ox O2 Delivery O2 Flow Rate FiO2 12/01/19 11:24 78 20 35 12/01/19 10:00 82 21 116/43 (67) 100 12/01/19 09:30 79 20 110/46 (67) 100 12/01/19 09:00 79 21 123/42 (69) 100 12/01/19 08:30 76 20 105/43 (63) 100 12/01/19 08:00 97.0 77 20 110/41 (64) 100 12/01/19 08:00 35 12/01/19 08:00 77 12/01/19 08:00 Mechanical Ventilator 12/01/19 07:20 100 12/01/19 07:20 77 20 35 12/01/19 07:00 76 20 126/68 (87) 100 12/01/19 06:00 76 20 108/44 (65) 12/01/19 05:00 78 20 102/43 (62) 12/01/19 04:00 35 12/01/19 04:00 Mechanical Ventilator 12/01/19 04:00 97.2 77 19 101/43 (62) 98 12/01/19 03:15 80 20 35 12/01/19 03:05 80 12/01/19 03:00 80 19 91/49 (63) 99 12/01/19 02:00 76 0 109/46 (67) 100 12/01/19 01:00 75 20 109/53 (71) 100 12/01/19 00:00 76 20 109/48 (68) 100 12/01/19 00:00 Mechanical Ventilator 12/01/19 00:00 35 11/30/19 23:05 76 20 35 11/30/19 23:02 75 11/30/19 23:00 74 20 110/53 (72) 100 11/30/19 22:00 78 20 111/51 (71) 100 11/30/19 21:00 97.1 79 20 114/55 (74) 100 11/30/19 20:00 Mechanical Ventilator 11/30/19 20:00 96.7 75 20 120/47 (71) 100 11/30/19 20:00 35 11/30/19 19:44 76 11/30/19 19:00 76 20 35 11/30/19 19:00 75 20 123/54 (77) 100 11/30/19 18:00 73 20 123/53 (76) 100 11/30/19 17:00 76 20 116/49 (71) 100 11/30/19 16:00 35 11/30/19 16:00 Mechanical Ventilator 11/30/19 16:00 97.4 77 20 119/49 (72) 100 11/30/19 16:00 79 11/30/19 15:00 81 20 35 11/30/19 15:00 81 21 115/53 (73) 100 11/30/19 14:00 78 20 132/48 (76) 100 11/30/19 13:00 80 20 143/57 (85) 100 11/30/19 12:00 75 11/30/19 12:00 75 20 122/51 (74) 100 11/30/19 12:00 35 11/30/19 12:00 Mechanical Ventilator Status: obtunded Condition: critical Neck: full ROM Lungs: chest wall tender Heart: HR/BP stable Abdomen: soft, active bowel sounds Extremities: no C/C/E Critical Care - Subjective FI02: 35 Vent Support Breath Rate: 20 Vent Support Mode: AC Vent Tidal Volume: 550 Sputum Amount: Small PEEP: 5.0 PIP: 25 Tube Feeding Amount: 35 I&O: Intake and Output 11/30/19 12/01/19 19:00 07:00 Intake Total 1145 ml 1250 ml Output Total 160 ml 95 ml Balance 985 ml 1155 ml Free Water 90 ml IV Total 695 ml 775 ml Tube Feeding 420 ml 385 ml Other 30 ml Output Urine Total 60 ml 95 ml Stool Total 100 ml # Bowel Movements 100 ET-Tube: 8.0 ET Position: 23 Labs: Laboratory Tests Test 12/01/19 04:00 12/01/19 07:19 White Blood Count 14.0 K/UL (4.8-10.8) H Red Blood Count 3.04 M/UL (4.70-6.10) L Hemoglobin 8.7 G/DL (14.2-18.0) L Hematocrit 28.0 % (42.0-52.0) L Mean Corpuscular Volume 92 FL (80-99) Mean Corpuscular Hemoglobin 28.5 PG (27.0-31.0) Mean Corpuscular Hemoglobin Concent 30.9 G/DL (32.0-36.0) L Red Cell Distribution Width 16.5 % (11.6-14.8) H Platelet Count 213 K/UL (150-450) Mean Platelet Volume 7.2 FL (6.5-10.1) Neutrophils (%) (Auto) 84.1 % (45.0-75.0) H Lymphocytes (%) (Auto) 11.9 % (20.0-45.0) L Monocytes (%) (Auto) 3.4 % (1.0-10.0) Eosinophils (%) (Auto) 0.1 % (0.0-3.0) Basophils (%) (Auto) 0.5 % (0.0-2.0) Sodium Level 144 MMOL/L (136-145) Potassium Level 3.7 MMOL/L (3.5-5.1) Chloride Level 111 MMOL/L (98-107) H Carbon Dioxide Level 21 MMOL/L (21-32) Anion Gap 12 mmol/L (5-15) Blood Urea Nitrogen 63 mg/dL (7-18) H Creatinine 2.7 MG/DL (0.55-1.30) H Estimat Glomerular Filtration Rate 23.3 mL/min (>60) Glucose Level 109 MG/DL (74-106) H Calcium Level 7.6 MG/DL (8.5-10.1) L Phosphorus Level 4.4 MG/DL (2.5-4.9) Magnesium Level 2.1 MG/DL (1.8-2.4) Total Bilirubin 0.2 MG/DL (0.2-1.0) Aspartate Amino Transf (AST/SGOT) 39 U/L (15-37) H Alanine Aminotransferase (ALT/SGPT) 13 U/L (12-78) Alkaline Phosphatase 70 U/L (46-116) Total Protein 4.5 G/DL (6.4-8.2) L Albumin 0.8 G/DL (3.4-5.0) L Globulin 3.7 g/dL Albumin/Globulin Ratio 0.2 (1.0-2.7) L Arterial Blood pH 7.304 (7.350-7.450) Arterial Blood Partial Pressure CO2 39.2 mmHg (35.0-45.0) Arterial Blood Partial Pressure O2 78.3 mmHg (75.0-100.0) Arterial Blood HCO3 19.0 mmol/L (22.0-26.0) L Arterial Blood Oxygen Saturation 94.5 % (95-100) L Arterial Blood Base Excess -6.8 (-2-2) L Michael Test Positive Ayana Ndiaye MD Dec 01, 2019 11:34
--- NOTE | 2019-12-01 11:36 | General Progress Note ---
Assessment/Plan Problem List: (1) DM (diabetes mellitus) ICD Codes: E11.9 - Type 2 diabetes mellitus without complications SNOMED: 85834999 (2) Dysphagia ICD Codes: R13.10 - Dysphagia, unspecified SNOMED: 30997465, 058565947 (3) Suspected COVID-19 virus infection ICD Codes: Z20.828 - Contact with and (suspected) exposure to other viral communicable diseases SNOMED: 954275826 (4) Respiratory failure with hypoxia ICD Codes: J96.91 - Respiratory failure, unspecified with hypoxia SNOMED: 56627880226849544 Qualifiers: Qualified Codes: J96.01 - Acute respiratory failure with hypoxia (5) Anemia ICD Codes: D64.9 - Anemia, unspecified SNOMED: 258094727 Qualifiers: Qualified Codes: D64.9 - Anemia, unspecified (6) UTI (urinary tract infection) ICD Codes: N39.0 - Urinary tract infection, site not specified SNOMED: 78866702 Qualifiers: Qualified Codes: N30.00 - Acute cystitis without hematuria (7) ARF (acute renal failure) ICD Codes: N17.9 - Acute kidney failure, unspecified SNOMED: 66868676 Qualifiers: Qualified Codes: N17.9 - Acute kidney failure, unspecified (8) DM (diabetes mellitus) ICD Codes: E11.9 - Type 2 diabetes mellitus without complications SNOMED: 24998554 (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 - Cerebral infarction due to unspecified occlusion or stenosis of left middle cerebral artery SNOMED: 782757173 (10) Sepsis ICD Codes: A41.9 - Sepsis, unspecified organism SNOMED: 69355379 Qualifiers: Qualified Codes: A41.9 - Sepsis, unspecified organism; R65.20 - Severe sepsis without septic shock; J96.01 - Acute respiratory failure with hypoxia (11) Decubitus skin ulcer ICD Codes: L89.90 - Pressure ulcer of unspecified site, unspecified stage SNOMED: 841139151 Status: unchanged Assessment/Plan: add reglan monitor for residuals Tuble flush fu labs ICU care Subjective ROS Limited/Unobtainable: No Allergies: Coded Allergies: No Known Allergies (Unverified , 09/16/19) Objective Last 24 Hour Vital Signs Date Time Temp Pulse Resp B/P (MAP) Pulse Ox O2 Delivery O2 Flow Rate FiO2 12/01/19 11:24 78 20 35 12/01/19 10:00 82 21 116/43 (67) 100 12/01/19 09:30 79 20 110/46 (67) 100 12/01/19 09:00 79 21 123/42 (69) 100 12/01/19 08:30 76 20 105/43 (63) 100 12/01/19 08:00 97.0 77 20 110/41 (64) 100 12/01/19 08:00 35 12/01/19 08:00 77 12/01/19 08:00 Mechanical Ventilator 12/01/19 07:20 100 12/01/19 07:20 77 20 35 12/01/19 07:00 76 20 126/68 (87) 100 12/01/19 06:00 76 20 108/44 (65) 12/01/19 05:00 78 20 102/43 (62) 12/01/19 04:00 35 12/01/19 04:00 Mechanical Ventilator 12/01/19 04:00 97.2 77 19 101/43 (62) 98 12/01/19 03:15 80 20 35 12/01/19 03:05 80 12/01/19 03:00 80 19 91/49 (63) 99 12/01/19 02:00 76 0 109/46 (67) 100 12/01/19 01:00 75 20 109/53 (71) 100 12/01/19 00:00 76 20 109/48 (68) 100 12/01/19 00:00 Mechanical Ventilator 12/01/19 00:00 35 11/30/19 23:05 76 20 35 11/30/19 23:02 75 11/30/19 23:00 74 20 110/53 (72) 100 11/30/19 22:00 78 20 111/51 (71) 100 11/30/19 21:00 97.1 79 20 114/55 (74) 100 11/30/19 20:00 Mechanical Ventilator 11/30/19 20:00 96.7 75 20 120/47 (71) 100 11/30/19 20:00 35 11/30/19 19:44 76 11/30/19 19:00 76 20 35 11/30/19 19:00 75 20 123/54 (77) 100 11/30/19 18:00 73 20 123/53 (76) 100 11/30/19 17:00 76 20 116/49 (71) 100 11/30/19 16:00 35 11/30/19 16:00 Mechanical Ventilator 11/30/19 16:00 97.4 77 20 119/49 (72) 100 11/30/19 16:00 79 11/30/19 15:00 81 20 35 11/30/19 15:00 81 21 115/53 (73) 100 11/30/19 14:00 78 20 132/48 (76) 100 11/30/19 13:00 80 20 143/57 (85) 100 11/30/19 12:00 75 11/30/19 12:00 75 20 122/51 (74) 100 11/30/19 12:00 35 11/30/19 12:00 Mechanical Ventilator Intake and Output 11/30/19 12/01/19 19:00 07:00 Intake Total 1145 ml 1250 ml Output Total 160 ml 95 ml Balance 985 ml 1155 ml Free Water 90 ml IV Total 695 ml 775 ml Tube Feeding 420 ml 385 ml Other 30 ml Output Urine Total 60 ml 95 ml Stool Total 100 ml # Bowel Movements 100 Laboratory Tests 12/01/19 04:00: White Blood Count 14.0H, Red Blood Count 3.04L, Hemoglobin 8.7L, Hematocrit 28.0L, Mean Corpuscular Volume 92, Mean Corpuscular Hemoglobin 28.5, Mean Corpuscular Hemoglobin Concent 30.9L, Red Cell Distribution Width 16.5H, Platelet Count 213, Mean Platelet Volume 7.2, Neutrophils (%) (Auto) 84.1H, Lymphocytes (%) (Auto) 11.9L, Monocytes (%) (Auto) 3.4, Eosinophils (%) (Auto) 0.1, Basophils (%) (Auto) 0.5, Sodium Level 144, Potassium Level 3.7, Chloride Level 111H, Carbon Dioxide Level 21, Anion Gap 12, Blood Urea Nitrogen 63H, Creatinine 2.7H, Estimat Glomerular Filtration Rate 23.3, Glucose Level 109H, Calcium Level 7.6L, Phosphorus Level 4.4, Magnesium Level 2.1, Total Bilirubin 0.2, Aspartate Amino Transf (AST/SGOT) 39H, Alanine Aminotransferase (ALT/SGPT) 13, Alkaline Phosphatase 70, Total Protein 4.5L, Albumin 0.8L, Globulin 3.7, Albumin/Globulin Ratio 0.2L 12/01/19 07:19: Arterial Blood pH 7.304L, Arterial Blood Partial Pressure CO2 39.2, Arterial Blood Partial Pressure O2 78.3, Arterial Blood HCO3 19.0L, Arterial Blood Oxygen Saturation 94.5L, Arterial Blood Base Excess -6.8L, Michael Test Positive Height (Feet): 6 Height (Inches): 0.00 Weight (Pounds): 162 General Appearance: confused EENT: PERRL/EOMI Neck: supple Cardiovascular: normal rate Respiratory/Chest: decreased breath sounds Abdomen: hypoactive bowel sounds Extremities: non-tender Louie Fan MD Dec 01, 2019 11:36
--- NOTE | 2019-12-01 12:10 | Nephrology Progress Note ---
Assessment/Plan Problem List: (1) ARF (acute renal failure) (2) Hyperkalemia (3) DM (diabetes mellitus) (4) Suspected COVID-19 virus infection (5) Sepsis (6) Severe malnutrition Assessment: Severe hypoalbuminemia Assessment his 74-year-old male with multiple Multiple medical problem presents with respiratory symptoms and diarrhea Renal failure most likely prerenal azotemia secondary to dehydration Hyperkalemia on presentation also secondary to dehydration Sepsis pneumonia hypoxia UTI Anemia History of hypertension History of diabetes mellitus Suspected COVID-19 virus infection Hypoalbuminemia Plan C. difficile positive COVID-19 detected November 30: Serum creatinine remains stable. Will discontinue calcium supplements. Continue per current treatment plan. No dialysis needed. November 29: Serum creatinine stable. Off pressors. No dialysis needed today. Discussed with JUSTINO Hernandez. Continue per consultants. November 28: Serum creatinine unchanged. Off pressors. Potassium supplement intravenously ordered. Discussed with JUSTINO Evans. No need for dialysis today. Continue to monitor renal parameters. Change midodrine from PRN to scheduled every 8 hours. November 27: Labs reviewed. No dialysis today. Discussed with RN. Potassium supplement given. Continue to monitor renal parameters. Continue per consultants. November 26: Lab reviewed. Remains full code. Remains intubated. Midodrin changed to PRN. Electrolytes acceptable. Will monitor renal parameters and urine output and dialyze as needed. November 25: Dialyzed yesterday. Lab reviewed. Remains full code. Remains intubated on ventilator. On minimal dose of pressors. 20 mEq potassium chloride IV ordered for low potassium level. November 24: Patient remains intubated. Due for dialysis today. Labs reviewed. Continues to be full code. November 23: Patient was dialyzed yesterday. Labs reviewed. Status quo. Remains full code. Will arrange for dialysis tomorrow. November 22: Patient in ICU. Intubated on ventilator. On low-dose pressors. Urine output labile. Serum creatinine rising. Patient developing acute renal failure. Need urgent dialysis treatment. Will arrange for placement of non- tunneled dialysis catheter as soon as possible. RN states that no family member or next of kin could be contacted at this time. Due to the urgency of the problem and the patient being full code will proceed with placement of dialysis catheter and dialysis treatment as soon as possible. November 21: Patient continues to do poorly. Discussed with RN. Started on Midodrin for BP support. Nephro feeding started. Phosphorus binders started. IV calcium ordered. Continue to monitor renal parameters and urine output. Continue per consultants. Patient remains full code. Per orders. November 20: Serum creatinine continuing to rise. Remains of 100 cc an hour IV fluid. Urine output remains low. Blood pressure also borderline low, on pressors. Continue per consultants. Continue to monitor renal parameters and urine output. Continue to avoid nephrotoxic's. Further deterioration of renal function may lead to dialysis treatment. Will discuss with PMD. November 19: Serum creatinine rising. Urine output decreasing. Will change to IV, D5 normal saline. Will give albumin bolus followed by Lasix 40 mg IV push. Continue to monitor renal parameters and urine output. Continue to avoid nephrotoxic medications as possible. Today's vancomycin level was 22. November 18: Serum creatinine rising. Continues to be full code. Continues to be intubated on ventilator. Remains on IV fluids. Vancomycin levels per pharmacy. Prognosis poor due to sepsis. November 17: Intubated on ventilator in ICU. Will continue half-normal saline 100 cc an hour. Continue per pulmonary and ID. Prognosis poor. Continue to monitor renal parameters. Hydrate with half-normal saline, serum creatinine now at its lowest today. monitor electrolytes Will change the feeding to Nepro and monitor her potassium and other electrolytes Continue per ID Keep the blood pressure and blood sugar in check Monitor renal parameters Previously: Urine studies Monitor intake and output Cultures including stool for C. difficile Per orders Patient's CODE STATUS is full Subjective ROS Limited/Unobtainable: Yes Objective Objective Last 24 Hour Vital Signs Date Time Temp Pulse Resp B/P (MAP) Pulse Ox O2 Delivery O2 Flow Rate FiO2 12/01/19 12:00 35 12/01/19 12:00 97.4 85 20 107/36 (59) 99 12/01/19 11:30 85 22 113/37 (62) 99 12/01/19 11:24 78 20 35 12/01/19 11:00 83 19 111/55 (73) 100 12/01/19 10:00 82 21 116/43 (67) 100 12/01/19 09:30 79 20 110/46 (67) 100 12/01/19 09:00 79 21 123/42 (69) 100 12/01/19 08:30 76 20 105/43 (63) 100 12/01/19 08:00 97.0 77 20 110/41 (64) 100 12/01/19 08:00 35 12/01/19 08:00 77 12/01/19 08:00 Mechanical Ventilator 12/01/19 07:20 100 12/01/19 07:20 77 20 35 12/01/19 07:00 76 20 126/68 (87) 100 12/01/19 06:00 76 20 108/44 (65) 12/01/19 05:00 78 20 102/43 (62) 12/01/19 04:00 35 12/01/19 04:00 Mechanical Ventilator 12/01/19 04:00 97.2 77 19 101/43 (62) 98 12/01/19 03:15 80 20 35 12/01/19 03:05 80 12/01/19 03:00 80 19 91/49 (63) 99 12/01/19 02:00 76 0 109/46 (67) 100 12/01/19 01:00 75 20 109/53 (71) 100 12/01/19 00:00 76 20 109/48 (68) 100 12/01/19 00:00 Mechanical Ventilator 12/01/19 00:00 35 11/30/19 23:05 76 20 35 11/30/19 23:02 75 11/30/19 23:00 74 20 110/53 (72) 100 11/30/19 22:00 78 20 111/51 (71) 100 11/30/19 21:00 97.1 79 20 114/55 (74) 100 11/30/19 20:00 Mechanical Ventilator 11/30/19 20:00 96.7 75 20 120/47 (71) 100 11/30/19 20:00 35 11/30/19 19:44 76 11/30/19 19:00 76 20 35 11/30/19 19:00 75 20 123/54 (77) 100 11/30/19 18:00 73 20 123/53 (76) 100 11/30/19 17:00 76 20 116/49 (71) 100 11/30/19 16:00 35 11/30/19 16:00 Mechanical Ventilator 11/30/19 16:00 97.4 77 20 119/49 (72) 100 11/30/19 16:00 79 6/17/20 15:00 81 20 35 11/30/19 15:00 81 21 115/53 (73) 100 11/30/19 14:00 78 20 132/48 (76) 100 11/30/19 13:00 80 20 143/57 (85) 100 Intake and Output 11/30/19 12/01/19 19:00 07:00 Intake Total 1145 ml 1250 ml Output Total 160 ml 95 ml Balance 985 ml 1155 ml Free Water 90 ml IV Total 695 ml 775 ml Tube Feeding 420 ml 385 ml Other 30 ml Output Urine Total 60 ml 95 ml Stool Total 100 ml # Bowel Movements 100 Laboratory Tests 12/01/19 04:00: White Blood Count 14.0H, Red Blood Count 3.04L, Hemoglobin 8.7L, Hematocrit 28.0L, Mean Corpuscular Volume 92, Mean Corpuscular Hemoglobin 28.5, Mean Corpuscular Hemoglobin Concent 30.9L, Red Cell Distribution Width 16.5H, Platelet Count 213, Mean Platelet Volume 7.2, Neutrophils (%) (Auto) 84.1H, Lymphocytes (%) (Auto) 11.9L, Monocytes (%) (Auto) 3.4, Eosinophils (%) (Auto) 0.1, Basophils (%) (Auto) 0.5, Sodium Level 144, Potassium Level 3.7, Chloride Level 111H, Carbon Dioxide Level 21, Anion Gap 12, Blood Urea Nitrogen 63H, Creatinine 2.7H, Estimat Glomerular Filtration Rate 23.3, Glucose Level 109H, Calcium Level 7.6L, Phosphorus Level 4.4, Magnesium Level 2.1, Total Bilirubin 0.2, Aspartate Amino Transf (AST/SGOT) 39H, Alanine Aminotransferase (ALT/SGPT) 13, Alkaline Phosphatase 70, Total Protein 4.5L, Albumin 0.8L, Globulin 3.7, Albumin/Globulin Ratio 0.2L 12/01/19 07:19: Arterial Blood pH 7.304L, Arterial Blood Partial Pressure CO2 39.2, Arterial Blood Partial Pressure O2 78.3, Arterial Blood HCO3 19.0L, Arterial Blood Oxygen Saturation 94.5L, Arterial Blood Base Excess -6.8L, Michael Test Positive Height (Feet): 6 Height (Inches): 0.00 Weight (Pounds): 162 General Appearance: no apparent distress EENT: other - Intubated on ventilator Cardiovascular: tachycardia Respiratory/Chest: decreased breath sounds Abdomen: distended Objective No other change Ricardo Choudhary MD Dec 01, 2019 12:10
[2019-12-01] MEDS: Metoclopramide 10mg/2ml Inj IVP SCH ×2 (12:46→16:57)
--- NOTE | 2019-12-01 13:18 | Hematology/Onc Progress Note ---
Assessment/Plan Assessment/Plan Assessment and Recs # Leukocytosis/elevated white blood cell count, unspecified likely related to underlying stress reaction, smoking v more likely infection, in this case with pna and COVID19++++++++ --> have reviewed peripheral smear and bandemia/neutrophilia noted --> continue antibiotics if they have been started by ID team --> monitor for resolution --> wbc 35k-->31.2-->25-->27.4 -->25-->20.7-->18.6 -->27-->19.7 -->20->20->18.2- ->15.7 -->14 --> abx/antivral: remdesivir/vanc/cefepime-->vanc/flagyl/monique-->linezolid/monique-- >cefepime/zyvox/vanc ->vanc/cefepime --> 11/28 cxr: Slight increased alveolar infiltrates. # Thrombocytosis - if plt count >400k, most usually is a reactive process and will improve once exacerbant removed as well --> in this case due to underlying infection --> plt trend 646k-->672 -->547-->372-->345-->149 -->246-->232-->197 --> smear is noted # Anemia of chronic disease due to underlying chronic medical issues, multifactorial v Gi bleed --> Anemia workup has been ordered, rule out gi bleed -> ferritin 1339 --> No evidence of hemolysis is noted, peripheral smear has been reviewed. --> Hgb goal >7. Transfuse prn. --> Epogen or iron at this time is not particularly indicated --> Medications have been reviewed --> low threshold for gi evaluation in case has occult + --> bone marrow biopsy is not indicated given the other more likely causes --> hgb 9.5-->9.8->8.8-->8.6-->7.5-->9.5-->7.5 -->9.1-->8-->7.6-->7-->9.2-->8.2 --> 1 unit prbc 11/20; 11/28 --> ddimer remains elevated currently # Acute hypoxic resp failure- 2ry to COVID19 --> vent+ --> per id and pulm recs --> breathing treatments and rep cxr --> 11/15 cxr: New/increased infiltrates at the left lateral lung base # UTI c/w bacteremia --> abx per id # Cdiff colitis --> abx # MONICA, improving # Deep tissue injury (sacrum, L heel) # HTN # Dm2 # MDD # Dysphagia s/p GT # malnutrition # decubitus ulcer # non verbal # 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 Greatly appreciate consultation. Subjective Allergies: Coded Allergies: No Known Allergies (Unverified , 09/16/19) All Systems: reviewed and negative except above Subjective 11/15 tele, no acute events, cxr and labs reviewed, nrb 15l, remdesivir 11/16 remains on iso, breathing is improved, no night sweats 11/17 remains with fever, cooling blankets, labs noted, no bleed hgb 8.8 11/19 icu, no acute events, vent, levo gtt, meds and labs reviewed 11/20 labs noted, no bleeding, in icu, hgb 7.5, to get one unit prbc, wbc elev 25 11/21 non verbal, s/p blood, hgb improved to 9.5, vent, iv abx 11/22 icu, no new changes, labs reviewed, levo gtt 11/23 labs are noted, no bleeding, in icu, on levo, wbc 27, hgb 9 11/24 nonverbal, no new changes, afebrile 11/26 nonverbal, in icu, on vent, wbc 20, hgb 8, no bleeding 11/[address], vent, lavonne as well, labs reviewed 11/28 nonverbal, icu, hbg 7, iv abx, 11/29 s/p 1 unit blood, hgb improved to 9.2, cxr reviewed 11/30 labs are noted, hgb is stable, nonverbal, on vent Objective Objective Current Medications Medications (Trade) Dose Ordered Sig/Leonor Route PRN Reason Start Time Stop Time Status Last Admin Dose Admin Acetaminophen (Tylenol) 650 mg Q4H PRN GT fever 11/18/19 03:00 12/11/19 02:59 11/28/19 05:07 Allopurinol (allopurinoL) 300 mg DAILY GT 11/21/19 09:00 12/21/19 08:59 12/01/19 08:18 Cefepime HCl 2 gm/ Dextrose 55 ml @ 110 mls/hr Q24H IVPB 11/27/19 21:00 12/04/19 20:59 11/30/19 20:21 Chlorhexidine Gluconate (Danielle-Hex 2%) 1 applic DAILY@2000 TOPIC 11/18/19 20:00 02/16/20 19:59 11/30/19 20:21 Dextrose/Sodium Chloride 1,000 ml @ 50 mls/hr Q20H IV 11/22/19 10:15 12/20/19 10:14 12/01/19 08:20 Fidaxomicin (Dificid) 200 mg EVERY 12 HOURS ORAL 11/30/19 21:00 12/07/19 20:59 12/01/19 08:18 Heparin Sodium (Porcine) (Heparin 5000 units/ml) 5,000 units EVERY 12 HOURS SUBQ 11/18/19 09:00 12/26/19 08:59 12/01/19 08:20 Metoclopramide HCl (Reglan) 5 mg Q6HR IVP 12/01/19 12:00 12/31/19 11:59 12/01/19 12:46 Midodrine (Pro-Amatine) 10 mg Q8HR GT 11/29/19 14:00 02/20/20 13:59 12/01/19 12:47 Norepinephrine Bitartrate 8 mg/ Dextrose 558 ml @ 0 mls/hr Q24H IV 11/18/19 10:00 12/18/19 09:59 11/23/19 22:22 Ondansetron HCl (Zofran) 4 mg Q6H PRN IVP Nausea & Vomiting 11/18/19 03:00 12/11/19 08:59 Sevelamer Carbonate (Renvela) 800 mg Q12HR GT 11/29/19 21:00 02/20/20 07:59 12/01/19 08:18 Last 24 Hour Vital Signs Date Time Temp Pulse Resp B/P (MAP) Pulse Ox O2 Delivery O2 Flow Rate FiO2 12/01/19 12:00 35 12/01/19 12:00 83 12/01/19 12:00 Mechanical Ventilator 12/01/19 12:00 97.4 85 20 107/36 (59) 99 12/01/19 11:30 85 22 113/37 (62) 99 12/01/19 11:24 78 20 35 12/01/19 11:00 83 19 111/55 (73) 100 12/01/19 10:00 82 21 116/43 (67) 100 12/01/19 09:30 79 20 110/46 (67) 100 12/01/19 09:00 79 21 123/42 (69) 100 12/01/19 08:30 76 20 105/43 (63) 100 12/01/19 08:00 97.0 77 20 110/41 (64) 100 12/01/19 08:00 35 12/01/19 08:00 77 12/01/19 08:00 Mechanical Ventilator 12/01/19 07:20 100 12/01/19 07:20 77 20 35 12/01/19 07:00 76 20 126/68 (87) 100 12/01/19 06:00 76 20 108/44 (65) 12/01/19 05:00 78 20 102/43 (62) 12/01/19 04:00 35 12/01/19 04:00 Mechanical Ventilator 12/01/19 04:00 97.2 77 19 101/43 (62) 98 12/01/19 03:15 80 20 35 12/01/19 03:05 80 12/01/19 03:00 80 19 91/49 (63) 99 12/01/19 02:00 76 0 109/46 (67) 100 12/01/19 01:00 75 20 109/53 (71) 100 12/01/19 00:00 76 20 109/48 (68) 100 12/01/19 00:00 Mechanical Ventilator 12/01/19 00:00 35 11/30/19 23:05 76 20 35 11/30/19 23:02 75 11/30/19 23:00 74 20 110/53 (72) 100 11/30/19 22:00 78 20 111/51 (71) 100 11/30/19 21:00 97.1 79 20 114/55 (74) 100 11/30/19 20:00 Mechanical Ventilator 11/30/19 20:00 96.7 75 20 120/47 (71) 100 11/30/19 20:00 35 11/30/19 19:44 76 11/30/19 19:00 76 20 35 11/30/19 19:00 75 20 123/54 (77) 100 11/30/19 18:00 73 20 123/53 (76) 100 11/30/19 17:00 76 20 116/49 (71) 100 11/30/19 16:00 35 11/30/19 16:00 Mechanical Ventilator 11/30/19 16:00 97.4 77 20 119/49 (72) 100 11/30/19 16:00 79 11/30/19 15:00 81 20 35 11/30/19 15:00 81 21 115/53 (73) 100 11/30/19 14:00 78 20 132/48 (76) 100 11/30/19 13:00 80 20 143/57 (85) 100 11/30/19 12:00 75 11/30/19 12:00 75 20 122/51 (74) 100 11/30/19 12:00 35 11/30/19 12:00 Mechanical Ventilator 11/30/19 11:00 74 20 124/52 (76) 100 11/30/19 11:00 71 20 35 11/30/19 10:00 135/56 11/30/19 10:00 74 20 127/55 (79) 100 11/30/19 09:00 100 11/30/19 09:00 77 20 135/56 (82) 100 11/30/19 08:00 75 11/30/19 08:00 35 11/30/19 08:00 Mechanical Ventilator 11/30/19 08:00 97.8 75 20 118/49 (72) 100 11/30/19 07:00 74 20 35 11/30/19 07:00 76 20 112/48 (69) 100 11/30/19 06:30 77 20 130/51 (77) 100 11/30/19 06:00 78 20 130/54 (79) 100 11/30/19 05:30 84 19 120/49 (72) 99 11/30/19 05:00 81 0 128/71 (90) 100 11/30/19 04:00 35 11/30/19 04:00 97.2 80 20 125/67 (86) 100 11/30/19 04:00 Mechanical Ventilator 11/30/19 03:30 80 20 122/67 (85) 100 11/30/19 03:05 85 11/30/19 03:00 81 20 124/72 (89) 100 11/30/19 02:59 85 20 35 11/30/19 02:00 80 20 115/57 (76) 99 80 11/30/19 01:00 81 20 111/55 (73) 97 80 11/30/19 00:00 97.1 81 20 143/55 (84) 98 86 11/30/19 00:00 35 11/30/19 00:00 Mechanical Ventilator 11/29/19 23:30 81 20 142/66 (91) 98 86 11/29/19 23:15 81 11/29/19 23:00 82 20 145/59 (87) 100 84 11/29/19 22:58 84 20 35 11/29/19 22:30 84 20 136/56 (82) 100 85 11/29/19 22:00 86 20 131/54 (79) 100 82 11/29/19 21:30 86 20 130/59 (82) 100 86 11/29/19 21:00 83 21 112/50 (70) 99 80 11/29/19 20:00 Mechanical Ventilator 11/29/19 20:00 97.6 83 20 112/52 (72) 100 81 11/29/19 20:00 35 11/29/19 19:27 75 11/29/19 19:16 87 20 35 11/29/19 19:00 78 20 92/52 (65) 100 78 11/29/19 18:00 84 21 93/52 (66) 100 84 11/29/19 17:00 89 21 93/53 (66) 98 92 11/29/19 16:00 97.8 90 23 93/45 (61) 100 90 11/29/19 16:00 89 11/29/19 16:00 35 11/29/19 16:00 Mechanical Ventilator 11/29/19 15:00 92 22 94/46 (62) 98 92 11/29/19 14:50 85 20 35 35 11/29/19 14:00 92 21 110/55 (73) 100 92 Intake and Output 11/30/19 12/01/19 19:00 07:00 Intake Total 1145 ml 1250 ml Output Total 160 ml 95 ml Balance 985 ml 1155 ml Free Water 90 ml IV Total 695 ml 775 ml Tube Feeding 420 ml 385 ml Other 30 ml Output Urine Total 60 ml 95 ml Stool Total 100 ml # Bowel Movements 100 Labs Test 11/29/19 04:30 11/30/19 03:00 12/01/19 04:00 12/01/19 07:19 White Blood Count 18.2 K/UL (4.8-10.8) 15.7 K/UL (4.8-10.8) 14.0 K/UL (4.8-10.8) Red Blood Count 2.51 M/UL (4.70-6.10) 3.25 M/UL (4.70-6.10) 3.04 M/UL (4.70-6.10) Hemoglobin 7.0 G/DL (14.2-18.0) 9.2 G/DL (14.2-18.0) 8.7 G/DL (14.2-18.0) Hematocrit 22.9 % (42.0-52.0) 30.2 % (42.0-52.0) 28.0 % (42.0-52.0) Mean Corpuscular Volume 91 FL (80-99) 93 FL (80-99) 92 FL (80-99) Mean Corpuscular Hemoglobin 27.9 PG (27.0-31.0) 28.2 PG (27.0-31.0) 28.5 PG (27.0-31.0) Mean Corpuscular Hemoglobin Concent 30.5 G/DL (32.0-36.0) 30.4 G/DL (32.0-36.0) 30.9 G/DL (32.0-36.0) Red Cell Distribution Width 16.4 % (11.6-14.8) 16.2 % (11.6-14.8) 16.5 % (11.6-14.8) Platelet Count 232 K/UL (150-450) 197 K/UL (150-450) 213 K/UL (150-450) Mean Platelet Volume 7.1 FL (6.5-10.1) 7.0 FL (6.5-10.1) 7.2 FL (6.5-10.1) Neutrophils (%) (Auto) % (45.0-75.0) % (45.0-75.0) 84.1 % (45.0-75.0) Lymphocytes (%) (Auto) % (20.0-45.0) % (20.0-45.0) 11.9 % (20.0-45.0) Monocytes (%) (Auto) % (1.0-10.0) % (1.0-10.0) 3.4 % (1.0-10.0) Eosinophils (%) (Auto) % (0.0-3.0) % (0.0-3.0) 0.1 % (0.0-3.0) Basophils (%) (Auto) % (0.0-2.0) % (0.0-2.0) 0.5 % (0.0-2.0) Differential Total Cells Counted 100 100 Neutrophils % (Manual) 95 % (45-75) 90 % (45-75) Lymphocytes % (Manual) 2 % (20-45) 8 % (20-45) Monocytes % (Manual) 3 % (1-10) 2 % (1-10) Eosinophils % (Manual) 0 % (0-3) 0 % (0-3) Basophils % (Manual) 0 % (0-2) 0 % (0-2) Band Neutrophils 0 % (0-8) 0 % (0-8) Platelet Estimate Adequate Adequate Platelet Morphology Normal Normal Hypochromasia 3+ 1+ Anisocytosis 1+ 1+ Sodium Level 143 MMOL/L (136-145) 143 MMOL/L (136-145) 144 MMOL/L (136-145) Potassium Level 3.3 MMOL/L (3.5-5.1) 4.1 MMOL/L (3.5-5.1) 3.7 MMOL/L (3.5-5.1) Chloride Level 110 MMOL/L (98-107) 110 MMOL/L (98-107) 111 MMOL/L (98-107) Carbon Dioxide Level 23 MMOL/L (21-32) 22 MMOL/L (21-32) 21 MMOL/L (21-32) Anion Gap 10 mmol/L (5-15) 11 mmol/L (5-15) 12 mmol/L (5-15) Blood Urea Nitrogen 57 mg/dL (7-18) 61 mg/dL (7-18) 63 mg/dL (7-18) Creatinine 2.8 MG/DL (0.55-1.30) 2.7 MG/DL (0.55-1.30) 2.7 MG/DL (0.55-1.30) Estimat Glomerular Filtration Rate 22.4 mL/min (>60) 23.3 mL/min (>60) 23.3 mL/min (>60) Glucose Level 120 MG/DL (74-106) 108 MG/DL (74-106) 109 MG/DL (74-106) Uric Acid 5.8 MG/DL (2.6-7.2) Calcium Level 7.5 MG/DL (8.5-10.1) 7.4 MG/DL (8.5-10.1) 7.6 MG/DL (8.5-10.1) Phosphorus Level 3.6 MG/DL (2.5-4.9) 4.0 MG/DL (2.5-4.9) 4.4 MG/DL (2.5-4.9) Magnesium Level 2.1 MG/DL (1.8-2.4) 2.0 MG/DL (1.8-2.4) 2.1 MG/DL (1.8-2.4) Total Bilirubin 0.4 MG/DL (0.2-1.0) 0.4 MG/DL (0.2-1.0) 0.2 MG/DL (0.2-1.0) Aspartate Amino Transf (AST/SGOT) 40 U/L (15-37) 41 U/L (15-37) 39 U/L (15-37) Alanine Aminotransferase (ALT/SGPT) 12 U/L (12-78) < 6 U/L (12-78) 13 U/L (12-78) Alkaline Phosphatase 60 U/L (46-116) 62 U/L (46-116) 70 U/L (46-116) C-Reactive Protein, Quantitative 6.4 mg/dL (0.00-0.90) 10.1 mg/dL (0.00-0.90) Pro-B-Type Natriuretic Peptide 6280 pg/mL (0-125) Total Protein 4.5 G/DL (6.4-8.2) 4.7 G/DL (6.4-8.2) 4.5 G/DL (6.4-8.2) Albumin 0.9 G/DL (3.4-5.0) 0.9 G/DL (3.4-5.0) 0.8 G/DL (3.4-5.0) Globulin 3.6 g/dL 3.8 g/dL 3.7 g/dL Albumin/Globulin Ratio 0.2 (1.0-2.7) 0.2 (1.0-2.7) 0.2 (1.0-2.7) Erythrocyte Sedimentation Rate 98 MM/HR (0-20) Arterial Blood pH 7.304 (7.350-7.450) Arterial Blood Partial Pressure CO2 39.2 mmHg (35.0-45.0) Arterial Blood Partial Pressure O2 78.3 mmHg (75.0-100.0) Arterial Blood HCO3 19.0 mmol/L (22.0-26.0) Arterial Blood Oxygen Saturation 94.5 % (95-100) Arterial Blood Base Excess -6.8 (-2-2) Michael Test Positive Height (Feet): 6 Height (Inches): 0.00 Weight (Pounds): 162 Objective PE General: alert, chronically Ill Heent: nc, at Neck: full range of motion, supple, no meningismus Respiratory: chest non-tender, decreased breath sounds, crackles, vent++ Cardiovascular: no murmur, tachycardia Gastrointestinal: normal bowel sounds, non tender,+peg Musculoskeletal: back normal, normal range of motion, gait/station normal Neurologic: no pronator Deng Flowers MD Dec 01, 2019 13:18
--- NOTE | 2019-12-01 13:30 | General Progress Note ---
Assessment/Plan Problem List: (1) DM (diabetes mellitus) ICD Codes: E11.9 - Type 2 diabetes mellitus without complications SNOMED: 72213179 (2) ARF (acute renal failure) ICD Codes: N17.9 - Acute kidney failure, unspecified SNOMED: 74313384 Qualifiers: Qualified Codes: N17.9 - Acute kidney failure, unspecified (3) Aspiration pneumonia ICD Codes: J69.0 - Pneumonitis due to inhalation of food and vomit SNOMED: 152203069 (4) UTI (urinary tract infection) ICD Codes: N39.0 - Urinary tract infection, site not specified SNOMED: 06214848 Qualifiers: Qualified Codes: N30.00 - Acute cystitis without hematuria (5) Hypertension ICD Codes: I10 - Essential (primary) hypertension SNOMED: 62596573 (6) Anemia ICD Codes: D64.9 - Anemia, unspecified SNOMED: 724253531 Qualifiers: Qualified Codes: D64.9 - Anemia, unspecified (7) Respiratory failure with hypoxia ICD Codes: J96.91 - Respiratory failure, unspecified with hypoxia SNOMED: 72894981580852275 Qualifiers: Qualified Codes: J96.01 - Acute respiratory failure with hypoxia (8) Suspected COVID-19 virus infection ICD Codes: Z20.828 - Contact with and (suspected) exposure to other viral communicable diseases SNOMED: 359354016 Status: unchanged Assessment/Plan: vent abx pt diet cbc bmp am Subjective Constitutional: Reports: weakness Allergies: Coded Allergies: No Known Allergies (Unverified , 09/16/19) All Systems: reviewed and negative except above Subjective intubated sedated in icu Objective Last 24 Hour Vital Signs Date Time Temp Pulse Resp B/P (MAP) Pulse Ox O2 Delivery O2 Flow Rate FiO2 12/01/19 13:00 78 21 114/41 (65) 97 12/01/19 12:00 35 12/01/19 12:00 83 12/01/19 12:00 Mechanical Ventilator 12/01/19 12:00 97.4 85 20 107/36 (59) 99 12/01/19 11:30 85 22 113/37 (62) 99 12/01/19 11:24 78 20 35 12/01/19 11:00 83 19 111/55 (73) 100 12/01/19 10:00 82 21 116/43 (67) 100 12/01/19 09:30 79 20 110/46 (67) 100 12/01/19 09:00 79 21 123/42 (69) 100 12/01/19 08:30 76 20 105/43 (63) 100 12/01/19 08:00 97.0 77 20 110/41 (64) 100 12/01/19 08:00 35 12/01/19 08:00 77 12/01/19 08:00 Mechanical Ventilator 12/01/19 07:20 100 12/01/19 07:20 77 20 35 12/01/19 07:00 76 20 126/68 (87) 100 12/01/19 06:00 76 20 108/44 (65) 12/01/19 05:00 78 20 102/43 (62) 12/01/19 04:00 35 12/01/19 04:00 Mechanical Ventilator 12/01/19 04:00 97.2 77 19 101/43 (62) 98 12/01/19 03:15 80 20 35 12/01/19 03:05 80 12/01/19 03:00 80 19 91/49 (63) 99 12/01/19 02:00 76 0 109/46 (67) 100 12/01/19 01:00 75 20 109/53 (71) 100 12/01/19 00:00 76 20 109/48 (68) 100 12/01/19 00:00 Mechanical Ventilator 12/01/19 00:00 35 11/30/19 23:05 76 20 35 11/30/19 23:02 75 11/30/19 23:00 74 20 110/53 (72) 100 11/30/19 22:00 78 20 111/51 (71) 100 11/30/19 21:00 97.1 79 20 114/55 (74) 100 11/30/19 20:00 Mechanical Ventilator 11/30/19 20:00 96.7 75 20 120/47 (71) 100 11/30/19 20:00 35 11/30/19 19:44 76 11/30/19 19:00 76 20 35 11/30/19 19:00 75 20 123/54 (77) 100 11/30/19 18:00 73 20 123/53 (76) 100 11/30/19 17:00 76 20 116/49 (71) 100 6/17/20 16:00 35 11/30/19 16:00 Mechanical Ventilator 11/30/19 16:00 97.4 77 20 119/49 (72) 100 11/30/19 16:00 79 11/30/19 15:00 81 20 35 11/30/19 15:00 81 21 115/53 (73) 100 11/30/19 14:00 78 20 132/48 (76) 100 Intake and Output 11/30/19 12/01/19 19:00 07:00 Intake Total 1145 ml 1250 ml Output Total 160 ml 95 ml Balance 985 ml 1155 ml Free Water 90 ml IV Total 695 ml 775 ml Tube Feeding 420 ml 385 ml Other 30 ml Output Urine Total 60 ml 95 ml Stool Total 100 ml # Bowel Movements 100 Laboratory Tests 12/01/19 04:00: White Blood Count 14.0H, Red Blood Count 3.04L, Hemoglobin 8.7L, Hematocrit 28.0L, Mean Corpuscular Volume 92, Mean Corpuscular Hemoglobin 28.5, Mean Corpuscular Hemoglobin Concent 30.9L, Red Cell Distribution Width 16.5H, Platelet Count 213, Mean Platelet Volume 7.2, Neutrophils (%) (Auto) 84.1H, Lymphocytes (%) (Auto) 11.9L, Monocytes (%) (Auto) 3.4, Eosinophils (%) (Auto) 0.1, Basophils (%) (Auto) 0.5, Sodium Level 144, Potassium Level 3.7, Chloride Level 111H, Carbon Dioxide Level 21, Anion Gap 12, Blood Urea Nitrogen 63H, Creatinine 2.7H, Estimat Glomerular Filtration Rate 23.3, Glucose Level 109H, Calcium Level 7.6L, Phosphorus Level 4.4, Magnesium Level 2.1, Total Bilirubin 0.2, Aspartate Amino Transf (AST/SGOT) 39H, Alanine Aminotransferase (ALT/SGPT) 13, Alkaline Phosphatase 70, Total Protein 4.5L, Albumin 0.8L, Globulin 3.7, Albumin/Globulin Ratio 0.2L 12/01/19 07:19: Arterial Blood pH 7.304L, Arterial Blood Partial Pressure CO2 39.2, Arterial Blood Partial Pressure O2 78.3, Arterial Blood HCO3 19.0L, Arterial Blood Oxygen Saturation 94.5L, Arterial Blood Base Excess -6.8L, Michael Test Positive Height (Feet): 6 Height (Inches): 0.00 Weight (Pounds): 162 General Appearance: lethargic EENT: normal ENT inspection Neck: normal alignment Cardiovascular: normal rate, regular rhythm Respiratory/Chest: no respiratory distress, no accessory muscle use Extremities: normal inspection Skin: normal pigmentation Juan Singh DO Dec 01, 2019 13:30
--- NOTE | 2019-12-01 14:08 | Diagnostic Imaging Report ---
Procedure: XRAY Chest 1v Reason for study: Reason For Exam: [id number] Comparison films: 11/29/2019. FINDINGS: Endotracheal tube and right central venous catheter remain in place. Vascularity is normal. Bilateral infiltrates and right effusion unchanged. There are skin folds over the right hemithorax. Cardiac and mediastinal silhouette are within normal limits. Left CP angle is sharp. The bony thorax appear unremarkable. IMPRESSION: No significant change bilateral infiltrates and right effusion.
--- NOTE | 2019-12-01 15:26 | Surgery Progress Note ---
Surgery Progress Note Subjective Additional Comments ill appearing on support labs noted exam unchanged Objective Last 24 Hour Vital Signs Date Time Temp Pulse Resp B/P (MAP) Pulse Ox O2 Delivery O2 Flow Rate FiO2 12/01/19 15:00 78 20 115/47 (69) 100 12/01/19 14:00 79 20 122/44 (70) 99 12/01/19 13:30 80 22 114/41 (65) 98 12/01/19 13:00 78 21 114/41 (65) 97 12/01/19 13:00 77 21 95/39 (57) 99 12/01/19 12:30 76 22 113/37 (62) 99 12/01/19 12:00 35 12/01/19 12:00 83 12/01/19 12:00 Mechanical Ventilator 12/01/19 12:00 97.4 85 20 107/36 (59) 99 12/01/19 11:30 85 22 113/37 (62) 99 12/01/19 11:24 78 20 35 12/01/19 11:00 83 19 111/55 (73) 100 12/01/19 10:00 82 21 116/43 (67) 100 12/01/19 09:30 79 20 110/46 (67) 100 12/01/19 09:00 79 21 123/42 (69) 100 12/01/19 08:30 76 20 105/43 (63) 100 12/01/19 08:00 97.0 77 20 110/41 (64) 100 12/01/19 08:00 35 12/01/19 08:00 77 12/01/19 08:00 Mechanical Ventilator 12/01/19 07:20 100 12/01/19 07:20 77 20 35 12/01/19 07:00 76 20 126/68 (87) 100 12/01/19 06:00 76 20 108/44 (65) 12/01/19 05:00 78 20 102/43 (62) 12/01/19 04:00 35 12/01/19 04:00 Mechanical Ventilator 12/01/19 04:00 97.2 77 19 101/43 (62) 98 12/01/19 03:15 80 20 35 12/01/19 03:05 80 12/01/19 03:00 80 19 91/49 (63) 99 12/01/19 02:00 76 0 109/46 (67) 100 12/01/19 01:00 75 20 109/53 (71) 100 12/01/19 00:00 76 20 109/48 (68) 100 12/01/19 00:00 Mechanical Ventilator 12/01/19 00:00 35 11/30/19 23:05 76 20 35 11/30/19 23:02 75 11/30/19 23:00 74 20 110/53 (72) 100 11/30/19 22:00 78 20 111/51 (71) 100 11/30/19 21:00 97.1 79 20 114/55 (74) 100 11/30/19 20:00 Mechanical Ventilator 11/30/19 20:00 96.7 75 20 120/47 (71) 100 11/30/19 20:00 35 11/30/19 19:44 76 11/30/19 19:00 76 20 35 11/30/19 19:00 75 20 123/54 (77) 100 11/30/19 18:00 73 20 123/53 (76) 100 11/30/19 17:00 76 20 116/49 (71) 100 11/30/19 16:00 35 11/30/19 16:00 Mechanical Ventilator 11/30/19 16:00 97.4 77 20 119/49 (72) 100 11/30/19 16:00 79 I&O Intake and Output 11/30/19 12/01/19 19:00 07:00 Intake Total 1145 ml 1250 ml Output Total 160 ml 95 ml Balance 985 ml 1155 ml Free Water 90 ml IV Total 695 ml 775 ml Tube Feeding 420 ml 385 ml Other 30 ml Output Urine Total 60 ml 95 ml Stool Total 100 ml # Bowel Movements 100 Dressing: other Wound: other Drains: other Cardiovascular: RSR Respiratory: decreased breath sounds Abdomen: soft, non-tender, present bowel sounds Extremities: no cyanosis Laboratory Tests Test 12/01/19 04:00 12/01/19 07:19 White Blood Count 14.0 K/UL (4.8-10.8) H Red Blood Count 3.04 M/UL (4.70-6.10) L Hemoglobin 8.7 G/DL (14.2-18.0) L Hematocrit 28.0 % (42.0-52.0) L Mean Corpuscular Volume 92 FL (80-99) Mean Corpuscular Hemoglobin 28.5 PG (27.0-31.0) Mean Corpuscular Hemoglobin Concent 30.9 G/DL (32.0-36.0) L Red Cell Distribution Width 16.5 % (11.6-14.8) H Platelet Count 213 K/UL (150-450) Mean Platelet Volume 7.2 FL (6.5-10.1) Neutrophils (%) (Auto) 84.1 % (45.0-75.0) H Lymphocytes (%) (Auto) 11.9 % (20.0-45.0) L Monocytes (%) (Auto) 3.4 % (1.0-10.0) Eosinophils (%) (Auto) 0.1 % (0.0-3.0) Basophils (%) (Auto) 0.5 % (0.0-2.0) Sodium Level 144 MMOL/L (136-145) Potassium Level 3.7 MMOL/L (3.5-5.1) Chloride Level 111 MMOL/L (98-107) H Carbon Dioxide Level 21 MMOL/L (21-32) Anion Gap 12 mmol/L (5-15) Blood Urea Nitrogen 63 mg/dL (7-18) H Creatinine 2.7 MG/DL (0.55-1.30) H Estimat Glomerular Filtration Rate 23.3 mL/min (>60) Glucose Level 109 MG/DL (74-106) H Calcium Level 7.6 MG/DL (8.5-10.1) L Phosphorus Level 4.4 MG/DL (2.5-4.9) Magnesium Level 2.1 MG/DL (1.8-2.4) Total Bilirubin 0.2 MG/DL (0.2-1.0) Aspartate Amino Transf (AST/SGOT) 39 U/L (15-37) H Alanine Aminotransferase (ALT/SGPT) 13 U/L (12-78) Alkaline Phosphatase 70 U/L (46-116) Total Protein 4.5 G/DL (6.4-8.2) L Albumin 0.8 G/DL (3.4-5.0) L Globulin 3.7 g/dL Albumin/Globulin Ratio 0.2 (1.0-2.7) L Arterial Blood pH 7.304 (7.350-7.450) Arterial Blood Partial Pressure CO2 39.2 mmHg (35.0-45.0) Arterial Blood Partial Pressure O2 78.3 mmHg (75.0-100.0) Arterial Blood HCO3 19.0 mmol/L (22.0-26.0) L Arterial Blood Oxygen Saturation 94.5 % (95-100) L Arterial Blood Base Excess -6.8 (-2-2) L Michael Test Positive Plan Problems: (1) Decubitus skin ulcer Assessment & Plan: Pt presented on admission with large sacral wound. Base of wound with areas that area purple and indurated sacrococcygeal,L sacrum/L gluteus,Scattered wounds with maceration L gluteus, one wound R sacrum with Biofilm, Surrounding non-blanching erythema entire buttocks. Small dry scabbed area noted to lumbar area. Unstageable Pressure Injury L heel. Base of wound is necrotic with surrounding non-blanching erythema. Tx.plan: Apply Moisture Barrier Paste to Buttocks. Cover Sacrum, R and L gluteal cheeks with Optifoam drsgs. Change every 3 days and prn. Apply Betadine to L heel. Cover with Optifoam drsg. Change every 3 days and prn. Reposition at least every 2hours or as tolerated. Place Pillow between knees. Off-load heels with Pillow. APM/BRUNILDA Mattress overlay. DAILY ESTIMATED NEEDS: Needs based on wt loss, underweight, wound/ 59kg 30-35 kcals/kg 9510-3192 total kcals 1.25-2 g protein/kg 74-118 g total protein 25-30 mL/kg 5402-1232 total fluid mLs NUTRITION DIAGNOSIS: * Increased kcal/prot intake needs R/T wound healing, suspected recent significant wt loss as evidenced by admitted w/ wounds @ lt posterior heel, R lower back, sacrum as per photos, pending eval, suspected significant wt loss of 40lbs/ 23.7% in <5 months, currently @ 81% IBW. . * Swallowing difficulty R/T dysphagia, h/o CVA as evidenced by PEG dependent. CURRENT TF:Glucerna 1.2 @65ml/hr x24 hrs ENTERAL NUTRITION RECOMMENDATIONS: NEPRO @45ml/hr x24 hrs to provide 1080ml, 1944 kcal, 87g pro, 785ml free H2O - Rec TF change for lower K content (1145mg in Nepro @45 vs 3151mg in Glucerna 1.2 @65) - Start at 25ml/hr advance as tolerated 10ml/hr q4-6 hrs - HOB over 30 degrees - Increased H20 flush to 200ml q4 hrs ADDITIONAL RECOMMENDATIONS: 1) Calibrated bedscale wt -> per SNF: HT=59" and YJ=[id number] (10/20/19) 2) Wound healing: Add Vit C 500mg QD/ or dosing per nephro Add Osbaldo BID via PEG w/ TF order 3) Monitor lytes: monitor K trend, need for renal TF (K 5.3, 5.5) 4) NISS w/ TF (h/o DM) 5) Monitor for diarrhea, rec probiotics (2) Sepsis Assessment & Plan: 74-year-old male multi-medical comorbidities admitted for respiratory deficiency currently tachypneic, leukocytosis, malnutrition, hypoalbuminemia. Complete physical exam performed identified areas of concerned given patient's comorbidities current condition high risk for deteriorationNo active infection identified from patient's wounds and likely respiratory nature. Chest x-ray reviewed. No acute surgical intervention planned at this time Preventive measures IV antibiotics per infectious disease Okay for feeding once stable respiratory Appreciate Pulm input c diff positive on vanco blood cx noted worsening leukocytosis ID abx noted heme input noted There are increasing basilar opacities on the left noted. The heart size is normal. The pleural spaces are clear. Impression: New/increased infiltrates at the left lateral lung base We will follow with recommendations thank you for let me participate patient's care worsening in ICU now on pressors intubated febrile prognosis guarded ill appearing still weaning slowly (3) Left carotid artery occlusion (4) Left middle cerebral artery stroke (5) DM (diabetes mellitus) (6) ARF (acute renal failure) (7) Ventricular tachyarrhythmia (8) Aspiration pneumonia (9) Hypertension (10) UTI (urinary tract infection) (11) Anemia (12) Respiratory failure with hypoxia (13) Suspected COVID-19 virus infection Assessment & Plan: ++++ Elfego Payne Dec 01, 2019 15:26
[2019-12-01] MEDS: Dyna-Hex 2% Top Sol 2oz TOPIC SCH (19:45)
[2019-12-01] MEDS: Cefepime 2gm in D5W 55ml IVPB SCH (19:53)
[2019-12-02] VITALS (31 sets, daily range): BP systolic 97–142; BP diastolic 50–73
[2019-12-02] MEDS: D5NS 1,000 ML IV SCH (03:30)
[2019-12-02] MEDS: Midodrine 10mg tab GT SCH ×3 (04:44→21:34)
[2019-12-02] MEDS: Metoclopramide 10mg/2ml Inj IVP SCH ×4 (04:44→17:17)
[2019-12-02 04:45] LABS: HEMATOCRIT 27.1 % (42.0-52.0); HEMOGLOBIN 8.2 G/DL (14.2-18.0); MEAN CORPUSCULAR VOLUME 94 FL (80-99); PLATELET COUNT 220 K/UL (150-450); RED CELL DISTRIBUTION WIDTH 16.8 % (11.6-14.8); WHITE BLOOD COUNT 12.7 K/UL (4.8-10.8)
[2019-12-02 05:17] LABS: ANION GAP 11 mmol/L (5-15); BLOOD UREA NITROGEN 69 mg/dL (7-18); CALCIUM 7.7 MG/DL (8.5-10.1); CARBON DIOXIDE 21 MMOL/L (21-32); CHLORIDE 113 MMOL/L (98-107); CREATININE 2.9 MG/DL (0.55-1.30); POTASSIUM 3.7 MMOL/L (3.5-5.1); SODIUM 145 MMOL/L (136-145)
--- NOTE | 2019-12-02 08:00 | Hematology/Onc Progress Note ---
Assessment/Plan Assessment/Plan Assessment and Recs # Leukocytosis/elevated white blood cell count, unspecified likely related to underlying stress reaction, smoking v more likely infection, in this case with pna and COVID19++++++++ --> have reviewed peripheral smear and bandemia/neutrophilia noted --> continue antibiotics if they have been started by ID team --> monitor for resolution --> wbc 35k-->31.2-->25-->27.4 -->25-->20.7-->18.6 -->27-->19.7 -->20->20->18.2- ->15.7 -->14-->12.7 --> abx/antivral: remdesivir/vanc/cefepime-->vanc/flagyl/monique-->linezolid/monique-- >cefepime/zyvox/vanc ->vanc/cefepime --> 11/28 cxr: Slight increased alveolar infiltrates. --> 11/30 cxr: No significant change bilateral infiltrates and right effusion. # Thrombocytosis - if plt count >400k, most usually is a reactive process and will improve once exacerbant removed as well --> in this case due to underlying infection --> plt trend 646k-->672 -->547-->372-->345-->149 -->246-->232-->197-->220 --> smear is noted # Anemia of chronic disease due to underlying chronic medical issues, multifactorial v Gi bleed --> Anemia workup has been ordered, rule out gi bleed -> ferritin 1339 --> No evidence of hemolysis is noted, peripheral smear has been reviewed. --> Hgb goal >7. Transfuse prn. --> Epogen or iron at this time is not particularly indicated --> Medications have been reviewed --> low threshold for gi evaluation in case has occult + --> bone marrow biopsy is not indicated given the other more likely causes --> hgb 9.5-->9.8->8.8-->8.6-->7.5-->9.5-->7.5 -->9.1-->8-->7.6-->7-->9.2-->8.2- ->8.7 --> 1 unit prbc 11/20; 11/28 --> ddimer remains elevated currently # Acute hypoxic resp failure- 2ry to COVID19 --> vent+ --> per id and pulm recs --> breathing treatments and rep cxr --> 11/15 cxr: New/increased infiltrates at the left lateral lung base # UTI c/w bacteremia --> abx per id # Cdiff colitis --> abx # MONICA, improving # Deep tissue injury (sacrum, L heel) # HTN # Dm2 # MDD # Dysphagia s/p GT # malnutrition # decubitus ulcer # non verbal # L MCA CVA 2ry to occlusion L ICA # [place] resident ([facility]) # Dvt ppx heparin sq The timing of this note does not necessarily reflect the time of the patient was seen. Greatly appreciate consultation. Subjective Allergies: Coded Allergies: No Known Allergies (Unverified , 09/16/19) Subjective 11/15 tele, no acute events, cxr and labs reviewed, nrb 15l, remdesivir 11/16 remains on iso, breathing is improved, no night sweats 11/17 remains with fever, cooling blankets, labs noted, no bleed hgb 8.8 11/19 icu, no acute events, vent, levo gtt, meds and labs reviewed 11/20 labs noted, no bleeding, in icu, hgb 7.5, to get one unit prbc, wbc elev 25 11/21 non verbal, s/p blood, hgb improved to 9.5, vent, iv abx 11/22 icu, no new changes, labs reviewed, levo gtt 11/23 labs are noted, no bleeding, in icu, on levo, wbc 27, hgb 9 11/24 nonverbal, no new changes, afebrile 11/26 nonverbal, in icu, on vent, wbc 20, hgb 8, no bleeding 11/[address], vent, lavonne as well, labs reviewed 11/28 nonverbal, icu, hbg 7, iv abx, 11/29 s/p 1 unit blood, hgb improved to 9.2, cxr reviewed 11/30 labs are noted, hgb is stable, nonverbal, on vent 12/01 icu, cxr reviewed, hgb 8.7, cefepime, vent Objective Objective Current Medications Medications (Trade) Dose Ordered Sig/Leonor Route PRN Reason Start Time Stop Time Status Last Admin Dose Admin Acetaminophen (Tylenol) 650 mg Q4H PRN GT fever 11/18/19 03:00 12/11/19 02:59 11/28/19 05:07 Allopurinol (allopurinoL) 300 mg DAILY GT 11/21/19 09:00 12/21/19 08:59 12/01/19 08:18 Cefepime HCl 2 gm/ Dextrose 55 ml @ 110 mls/hr Q24H IVPB 11/27/19 21:00 12/04/19 20:59 12/01/19 19:53 Chlorhexidine Gluconate (Danielle-Hex 2%) 1 applic DAILY@2000 TOPIC 11/18/19 20:00 02/16/20 19:59 12/01/19 19:45 Dextrose/Sodium Chloride 1,000 ml @ 50 mls/hr Q20H IV 11/22/19 10:15 12/20/19 10:14 12/02/19 03:30 Fidaxomicin (Dificid) 200 mg EVERY 12 HOURS ORAL 11/30/19 21:00 12/07/19 20:59 12/01/19 19:53 Heparin Sodium (Porcine) (Heparin 5000 units/ml) 5,000 units EVERY 12 HOURS SUBQ 11/18/19 09:00 12/26/19 08:59 12/01/19 19:45 Metoclopramide HCl (Reglan) 5 mg Q6HR IVP 12/01/19 12:00 12/31/19 11:59 12/02/19 04:44 Midodrine (Pro-Amatine) 10 mg Q8HR GT 11/29/19 14:00 02/20/20 13:59 12/02/19 04:44 Norepinephrine Bitartrate 8 mg/ Dextrose 558 ml @ 0 mls/hr Q24H IV 11/18/19 10:00 12/18/19 09:59 11/23/19 22:22 Ondansetron HCl (Zofran) 4 mg Q6H PRN IVP Nausea & Vomiting 11/18/19 03:00 12/11/19 08:59 Sevelamer Carbonate (Renvela) 800 mg Q12HR GT 11/29/19 21:00 02/20/20 07:59 12/01/19 19:47 Last 24 Hour Vital Signs Date Time Temp Pulse Resp B/P (MAP) Pulse Ox O2 Delivery O2 Flow Rate FiO2 12/02/19 07:00 84 20 126/53 (77) 99 12/02/19 06:00 79 20 118/51 (73) 99 12/02/19 05:00 78 20 113/54 (73) 99 12/02/19 04:00 35 12/02/19 04:00 98.1 79 20 114/53 (73) 98 12/02/19 04:00 Mechanical Ventilator 12/02/19 03:30 86 20 30 12/02/19 03:30 84 20 110/53 (72) 98 12/02/19 03:21 83 12/02/19 03:00 94 20 112/73 (86) 98 12/02/19 02:00 89 20 127/59 (81) 98 12/02/19 01:00 88 20 142/68 (92) 98 12/02/19 00:00 97.5 83 20 131/64 (86) 98 12/02/19 00:00 Mechanical Ventilator 12/02/19 00:00 35 12/01/19 23:17 83 12/01/19 23:09 84 20 30 12/01/19 23:00 81 20 145/60 (88) 98 12/01/19 22:00 78 20 126/60 (82) 98 12/01/19 21:00 82 20 130/57 (81) 99 12/01/19 20:30 83 20 130/55 (80) 100 12/01/19 20:00 Mechanical Ventilator 12/01/19 20:00 97.7 82 20 131/48 (75) 96 12/01/19 20:00 35 12/01/19 19:30 78 20 30 12/01/19 19:20 76 12/01/19 19:00 79 20 124/56 (78) 96 12/01/19 18:07 77 20 111/58 (75) 96 12/01/19 17:00 80 22 113/53 (73) 100 12/01/19 16:00 35 12/01/19 16:00 78 12/01/19 16:00 Mechanical Ventilator 12/01/19 16:00 97.4 79 19 115/46 (69) 100 12/01/19 15:10 79 20 35 12/01/19 15:00 78 20 115/47 (69) 100 12/01/19 14:00 79 20 122/44 (70) 99 12/01/19 13:30 80 22 114/41 (65) 98 12/01/19 13:00 78 21 114/41 (65) 97 12/01/19 13:00 77 21 95/39 (57) 99 12/01/19 12:30 76 22 113/37 (62) 99 12/01/19 12:00 35 12/01/19 12:00 83 12/01/19 12:00 Mechanical Ventilator 12/01/19 12:00 97.4 85 20 107/36 (59) 99 12/01/19 11:30 85 22 113/37 (62) 99 12/01/19 11:24 78 20 35 12/01/19 11:00 83 19 111/55 (73) 100 12/01/19 10:00 82 21 116/43 (67) 100 12/01/19 09:30 79 20 110/46 (67) 100 12/01/19 09:00 79 21 123/42 (69) 100 12/01/19 08:30 76 20 105/43 (63) 100 12/01/19 08:00 97.0 77 20 110/41 (64) 100 12/01/19 08:00 35 12/01/19 08:00 77 12/01/19 08:00 Mechanical Ventilator 12/01/19 07:20 100 12/01/19 07:20 77 20 35 12/01/19 07:00 76 20 126/68 (87) 100 12/01/19 06:00 76 20 108/44 (65) 12/01/19 05:00 78 20 102/43 (62) 12/01/19 04:00 35 12/01/19 04:00 Mechanical Ventilator 12/01/19 04:00 97.2 77 19 101/43 (62) 98 12/01/19 03:15 80 20 35 12/01/19 03:05 80 12/01/19 03:00 80 19 91/49 (63) 99 12/01/19 02:00 76 0 109/46 (67) 100 12/01/19 01:00 75 20 109/53 (71) 100 12/01/19 00:00 76 20 109/48 (68) 100 12/01/19 00:00 Mechanical Ventilator 12/01/19 00:00 35 11/30/19 23:05 76 20 35 11/30/19 23:02 75 11/30/19 23:00 74 20 110/53 (72) 100 11/30/19 22:00 78 20 111/51 (71) 100 11/30/19 21:00 97.1 79 20 114/55 (74) 100 11/30/19 20:00 Mechanical Ventilator 11/30/19 20:00 96.7 75 20 120/47 (71) 100 11/30/19 20:00 35 11/30/19 19:44 76 11/30/19 19:00 76 20 35 11/30/19 19:00 75 20 123/54 (77) 100 11/30/19 18:00 73 20 123/53 (76) 100 11/30/19 17:00 76 20 116/49 (71) 100 11/30/19 16:00 35 11/30/19 16:00 Mechanical Ventilator 11/30/19 16:00 97.4 77 20 119/49 (72) 100 11/30/19 16:00 79 11/30/19 15:00 81 20 35 11/30/19 15:00 81 21 115/53 (73) 100 11/30/19 14:00 78 20 132/48 (76) 100 11/30/19 13:00 80 20 143/57 (85) 100 11/30/19 12:00 75 11/30/19 12:00 75 20 122/51 (74) 100 11/30/19 12:00 35 11/30/19 12:00 Mechanical Ventilator 11/30/19 11:00 74 20 124/52 (76) 100 11/30/19 11:00 71 20 35 11/30/19 10:00 135/56 11/30/19 10:00 74 20 127/55 (79) 100 11/30/19 09:00 100 11/30/19 09:00 77 20 135/56 (82) 100 11/30/19 08:00 75 11/30/19 08:00 35 11/30/19 08:00 Mechanical Ventilator 11/30/19 08:00 97.8 75 20 118/49 (72) 100 Intake and Output 12/01/19 12/02/19 19:00 07:00 Intake Total 1248 ml 1235 ml Output Total 530 ml 170 ml Balance 718 ml 1065 ml Free Water 70 ml IV Total 703 ml 685 ml Tube Feeding 455 ml 480 ml Other 90 ml Output Urine Total 230 ml 170 ml Stool Total 300 ml Labs Test 11/30/19 03:00 12/01/19 04:00 12/01/19 07:19 12/02/19 04:00 White Blood Count 15.7 K/UL (4.8-10.8) 14.0 K/UL (4.8-10.8) 12.7 K/UL (4.8-10.8) Red Blood Count 3.25 M/UL (4.70-6.10) 3.04 M/UL (4.70-6.10) 2.90 M/UL (4.70-6.10) Hemoglobin 9.2 G/DL (14.2-18.0) 8.7 G/DL (14.2-18.0) 8.2 G/DL (14.2-18.0) Hematocrit 30.2 % (42.0-52.0) 28.0 % (42.0-52.0) 27.1 % (42.0-52.0) Mean Corpuscular Volume 93 FL (80-99) 92 FL (80-99) 94 FL (80-99) Mean Corpuscular Hemoglobin 28.2 PG (27.0-31.0) 28.5 PG (27.0-31.0) 28.2 PG (27.0-31.0) Mean Corpuscular Hemoglobin Concent 30.4 G/DL (32.0-36.0) 30.9 G/DL (32.0-36.0) 30.2 G/DL (32.0-36.0) Red Cell Distribution Width 16.2 % (11.6-14.8) 16.5 % (11.6-14.8) 16.8 % (11.6-14.8) Platelet Count 197 K/UL (150-450) 213 K/UL (150-450) 220 K/UL (150-450) Mean Platelet Volume 7.0 FL (6.5-10.1) 7.2 FL (6.5-10.1) 7.0 FL (6.5-10.1) Neutrophils (%) (Auto) % (45.0-75.0) 84.1 % (45.0-75.0) % (45.0-75.0) Lymphocytes (%) (Auto) % (20.0-45.0) 11.9 % (20.0-45.0) % (20.0-45.0) Monocytes (%) (Auto) % (1.0-10.0) 3.4 % (1.0-10.0) % (1.0-10.0) Eosinophils (%) (Auto) % (0.0-3.0) 0.1 % (0.0-3.0) % (0.0-3.0) Basophils (%) (Auto) % (0.0-2.0) 0.5 % (0.0-2.0) % (0.0-2.0) Differential Total Cells Counted 100 Neutrophils % (Manual) 90 % (45-75) Lymphocytes % (Manual) 8 % (20-45) Monocytes % (Manual) 2 % (1-10) Eosinophils % (Manual) 0 % (0-3) Basophils % (Manual) 0 % (0-2) Band Neutrophils 0 % (0-8) Platelet Estimate Adequate Platelet Morphology Normal Hypochromasia 1+ Anisocytosis 1+ Erythrocyte Sedimentation Rate 98 MM/HR (0-20) Sodium Level 143 MMOL/L (136-145) 144 MMOL/L (136-145) 145 MMOL/L (136-145) Potassium Level 4.1 MMOL/L (3.5-5.1) 3.7 MMOL/L (3.5-5.1) 3.7 MMOL/L (3.5-5.1) Chloride Level 110 MMOL/L (98-107) 111 MMOL/L (98-107) 113 MMOL/L (98-107) Carbon Dioxide Level 22 MMOL/L (21-32) 21 MMOL/L (21-32) 21 MMOL/L (21-32) Anion Gap 11 mmol/L (5-15) 12 mmol/L (5-15) 11 mmol/L (5-15) Blood Urea Nitrogen 61 mg/dL (7-18) 63 mg/dL (7-18) 69 mg/dL (7-18) Creatinine 2.7 MG/DL (0.55-1.30) 2.7 MG/DL (0.55-1.30) 2.9 MG/DL (0.55-1.30) Estimat Glomerular Filtration Rate 23.3 mL/min (>60) 23.3 mL/min (>60) 21.5 mL/min (>60) Glucose Level 108 MG/DL (74-106) 109 MG/DL (74-106) 111 MG/DL (74-106) Calcium Level 7.4 MG/DL (8.5-10.1) 7.6 MG/DL (8.5-10.1) 7.7 MG/DL (8.5-10.1) Phosphorus Level 4.0 MG/DL (2.5-4.9) 4.4 MG/DL (2.5-4.9) Magnesium Level 2.0 MG/DL (1.8-2.4) 2.1 MG/DL (1.8-2.4) Total Bilirubin 0.4 MG/DL (0.2-1.0) 0.2 MG/DL (0.2-1.0) Aspartate Amino Transf (AST/SGOT) 41 U/L (15-37) 39 U/L (15-37) Alanine Aminotransferase (ALT/SGPT) < 6 U/L (12-78) 13 U/L (12-78) Alkaline Phosphatase 62 U/L (46-116) 70 U/L (46-116) C-Reactive Protein, Quantitative 10.1 mg/dL (0.00-0.90) Total Protein 4.7 G/DL (6.4-8.2) 4.5 G/DL (6.4-8.2) Albumin 0.9 G/DL (3.4-5.0) 0.8 G/DL (3.4-5.0) Globulin 3.8 g/dL 3.7 g/dL Albumin/Globulin Ratio 0.2 (1.0-2.7) 0.2 (1.0-2.7) Arterial Blood pH 7.304 (7.350-7.450) Arterial Blood Partial Pressure CO2 39.2 mmHg (35.0-45.0) Arterial Blood Partial Pressure O2 78.3 mmHg (75.0-100.0) Arterial Blood HCO3 19.0 mmol/L (22.0-26.0) Arterial Blood Oxygen Saturation 94.5 % (95-100) Arterial Blood Base Excess -6.8 (-2-2) Michael Test Positive Height (Feet): 6 Height (Inches): 0.00 Weight (Pounds): 163 Objective PE General: alert, chronically Ill Heent: nc, at Neck: full range of motion, supple, no meningismus Respiratory: chest non-tender, decreased breath sounds, crackles, vent++ Cardiovascular: no murmur, tachycardia Gastrointestinal: normal bowel sounds, non tender,+peg Musculoskeletal: back normal, normal range of motion, gait/station normal Neurologic: no pronator Deng Flowers MD Dec 02, 2019 08:00
[2019-12-02 08:30] LABS: ALANINE AMINOTRANSFERASE 12 U/L (12-78); ALBUMIN 0.8 G/DL (3.4-5.0); ALKALINE PHOSPHATASE 88 U/L (46-116); ASPARTATE AMINO TRANSFERASE 49 U/L (15-37); BILIRUBIN,DIRECT < 0.1 MG/DL (0.0-0.3); BILIRUBIN,TOTAL 0.2 MG/DL (0.2-1.0); PHOSPHORUS 4.4 MG/DL (2.5-4.9)
[2019-12-02] MEDS: Renvela 800mg Pkt GT SCH ×2 (08:47→21:10)
[2019-12-02] MEDS: Heparin 5000 units/ml inj SUBQ SCH ×2 (08:51→21:12)
--- NOTE | 2019-12-02 09:38 | General Progress Note ---
Assessment/Plan Problem List: (1) DM (diabetes mellitus) ICD Codes: E11.9 - Type 2 diabetes mellitus without complications SNOMED: 89817783 (2) ARF (acute renal failure) ICD Codes: N17.9 - Acute kidney failure, unspecified SNOMED: 65737955 Qualifiers: Qualified Codes: N17.9 - Acute kidney failure, unspecified (3) Aspiration pneumonia ICD Codes: J69.0 - Pneumonitis due to inhalation of food and vomit SNOMED: 884423420 (4) UTI (urinary tract infection) ICD Codes: N39.0 - Urinary tract infection, site not specified SNOMED: 84747235 Qualifiers: Qualified Codes: N30.00 - Acute cystitis without hematuria (5) Hypertension ICD Codes: I10 - Essential (primary) hypertension SNOMED: 85429837 (6) Anemia ICD Codes: D64.9 - Anemia, unspecified SNOMED: 973545999 Qualifiers: Qualified Codes: D64.9 - Anemia, unspecified (7) Respiratory failure with hypoxia ICD Codes: J96.91 - Respiratory failure, unspecified with hypoxia SNOMED: 38936520419851209 Qualifiers: Qualified Codes: J96.01 - Acute respiratory failure with hypoxia (8) Suspected COVID-19 virus infection ICD Codes: Z20.828 - Contact with and (suspected) exposure to other viral communicable diseases SNOMED: 161465914 Status: unchanged Assessment/Plan: vent abx pt diet cbc bmp am Subjective Constitutional: Reports: weakness Allergies: Coded Allergies: No Known Allergies (Unverified , 09/16/19) All Systems: reviewed and negative except above Subjective intubated sedated in icu Objective Last 24 Hour Vital Signs Date Time Temp Pulse Resp B/P (MAP) Pulse Ox O2 Delivery O2 Flow Rate FiO2 12/02/19 08:00 30 12/02/19 07:46 78 20 30 12/02/19 07:00 84 20 126/53 (77) 99 12/02/19 06:00 79 20 118/51 (73) 99 12/02/19 05:00 78 20 113/54 (73) 99 12/02/19 04:00 35 12/02/19 04:00 98.1 79 20 114/53 (73) 98 12/02/19 04:00 Mechanical Ventilator 12/02/19 03:30 86 20 30 12/02/19 03:30 84 20 110/53 (72) 98 12/02/19 03:21 83 12/02/19 03:00 94 20 112/73 (86) 98 12/02/19 02:00 89 20 127/59 (81) 98 12/02/19 01:00 88 20 142/68 (92) 98 12/02/19 00:00 97.5 83 20 131/64 (86) 98 12/02/19 00:00 Mechanical Ventilator 12/02/19 00:00 35 12/01/19 23:17 83 12/01/19 23:09 84 20 30 12/01/19 23:00 81 20 145/60 (88) 98 12/01/19 22:00 78 20 126/60 (82) 98 12/01/19 21:00 82 20 130/57 (81) 99 12/01/19 20:30 83 20 130/55 (80) 100 12/01/19 20:00 Mechanical Ventilator 12/01/19 20:00 97.7 82 20 131/48 (75) 96 12/01/19 20:00 35 12/01/19 19:30 78 20 30 12/01/19 19:20 76 12/01/19 19:00 79 20 124/56 (78) 96 12/01/19 18:07 77 20 111/58 (75) 96 12/01/19 17:00 80 22 113/53 (73) 100 12/01/19 16:00 35 12/01/19 16:00 78 12/01/19 16:00 Mechanical Ventilator 12/01/19 16:00 97.4 79 19 115/46 (69) 100 12/01/19 15:10 79 20 35 12/01/19 15:00 78 20 115/47 (69) 100 12/01/19 14:00 79 20 122/44 (70) 99 12/01/19 13:30 80 22 114/41 (65) 98 12/01/19 13:00 78 21 114/41 (65) 97 12/01/19 13:00 77 21 95/39 (57) 99 12/01/19 12:30 76 22 113/37 (62) 99 12/01/19 12:00 35 12/01/19 12:00 83 12/01/19 12:00 Mechanical Ventilator 12/01/19 12:00 97.4 85 20 107/36 (59) 99 12/01/19 11:30 85 22 113/37 (62) 99 12/01/19 11:24 78 20 35 12/01/19 11:00 83 19 111/55 (73) 100 12/01/19 10:00 82 21 116/43 (67) 100 Intake and Output 12/01/19 12/02/19 19:00 07:00 Intake Total 1248 ml 1235 ml Output Total 530 ml 170 ml Balance 718 ml 1065 ml Free Water 70 ml IV Total 703 ml 685 ml Tube Feeding 455 ml 480 ml Other 90 ml Output Urine Total 230 ml 170 ml Stool Total 300 ml Laboratory Tests 12/02/19 04:00: White Blood Count 12.7H, Red Blood Count 2.90L, Hemoglobin 8.2L, Hematocrit 27.1L, Mean Corpuscular Volume 94, Mean Corpuscular Hemoglobin 28.2, Mean Corpuscular Hemoglobin Concent 30.2L, Red Cell Distribution Width 16.8H, Platelet Count 220, Mean Platelet Volume 7.0, Neutrophils (%) (Auto) , Lymphocytes (%) (Auto) , Monocytes (%) (Auto) , Eosinophils (%) (Auto) , Basophils (%) (Auto) , Sodium Level 145, Potassium Level 3.7, Chloride Level 113H, Carbon Dioxide Level 21, Anion Gap 11, Blood Urea Nitrogen 69H, Creatinine 2.9H, Estimat Glomerular Filtration Rate 21.5, Glucose Level 111H, Calcium Level 7.7L, Phosphorus Level 4.4, Magnesium Level 2.1, Total Bilirubin 0.2, Direct Bilirubin < 0.1, Aspartate Amino Transf (AST/SGOT) 49H, Alanine Aminotransferase (ALT/SGPT) 12, Alkaline Phosphatase 88, Total Protein 4.6L, Albumin 0.8L Height (Feet): 6 Height (Inches): 0.00 Weight (Pounds): 163 General Appearance: lethargic EENT: normal ENT inspection Neck: normal alignment Cardiovascular: normal rate, regular rhythm Respiratory/Chest: no respiratory distress, no accessory muscle use Extremities: normal inspection Skin: normal pigmentation Juna Singh DO Dec 02, 2019 09:38
[2019-12-02] MEDS: Norepinephrine Bitartrate 8 MG in D5W 500ml 550 ML IV SCH (10:00)
--- NOTE | 2019-12-02 10:37 | Nephrology Progress Note ---
Assessment/Plan Problem List: (1) ARF (acute renal failure) (2) Hyperkalemia (3) DM (diabetes mellitus) (4) Suspected COVID-19 virus infection (5) Sepsis (6) Severe malnutrition Assessment: Severe hypoalbuminemia Assessment his 74-year-old male with multiple Multiple medical problem presents with respiratory symptoms and diarrhea Renal failure most likely prerenal azotemia secondary to dehydration Hyperkalemia on presentation also secondary to dehydration Sepsis pneumonia hypoxia UTI Anemia History of hypertension History of diabetes mellitus Suspected COVID-19 virus infection Hypoalbuminemia Plan C. difficile positive COVID-19 detected December 01: Serum creatinine gaudencio to 2.9. Continue to monitor renal parameters, urine output, and avoid nephrotoxic's as possible. November 30: Serum creatinine remains stable. Will discontinue calcium supplements. Continue per current treatment plan. No dialysis needed. November 29: Serum creatinine stable. Off pressors. No dialysis needed today. Discussed with JUSTINO Hernandez. Continue per consultants. November 28: Serum creatinine unchanged. Off pressors. Potassium supplement intravenously ordered. Discussed with JUSTINO Evans. No need for dialysis today. Continue to monitor renal parameters. Change midodrine from PRN to scheduled every 8 hours. November 27: Labs reviewed. No dialysis today. Discussed with RN. Potassium supplement given. Continue to monitor renal parameters. Continue per consultants. November 26: Lab reviewed. Remains full code. Remains intubated. Midodrin changed to PRN. Electrolytes acceptable. Will monitor renal parameters and urine output and dialyze as needed. November 25: Dialyzed yesterday. Lab reviewed. Remains full code. Remains intubated on ventilator. On minimal dose of pressors. 20 mEq potassium chloride IV ordered for low potassium level. November 24: Patient remains intubated. Due for dialysis today. Labs reviewed. Continues to be full code. November 23: Patient was dialyzed yesterday. Labs reviewed. Status quo. Remains full code. Will arrange for dialysis tomorrow. November 22: Patient in ICU. Intubated on ventilator. On low-dose pressors. Urine output labile. Serum creatinine rising. Patient developing acute renal failure. Need urgent dialysis treatment. Will arrange for placement of non- tunneled dialysis catheter as soon as possible. RN states that no family member or next of kin could be contacted at this time. Due to the urgency of the problem and the patient being full code will proceed with placement of dialysis catheter and dialysis treatment as soon as possible. November 21: Patient continues to do poorly. Discussed with RN. Started on Midodrin for BP support. Nephro feeding started. Phosphorus binders started. IV calcium ordered. Continue to monitor renal parameters and urine output. Continue per consultants. Patient remains full code. Per orders. November 20: Serum creatinine continuing to rise. Remains of 100 cc an hour IV fluid. Urine output remains low. Blood pressure also borderline low, on pressors. Continue per consultants. Continue to monitor renal parameters and urine output. Continue to avoid nephrotoxic's. Further deterioration of renal function may lead to dialysis treatment. Will discuss with PMD. November 19: Serum creatinine rising. Urine output decreasing. Will change to IV, D5 normal saline. Will give albumin bolus followed by Lasix 40 mg IV push. Continue to monitor renal parameters and urine output. Continue to avoid nephrotoxic medications as possible. Today's vancomycin level was 22. November 18: Serum creatinine rising. Continues to be full code. Continues to be intubated on ventilator. Remains on IV fluids. Vancomycin levels per pharmacy. Prognosis poor due to sepsis. November 17: Intubated on ventilator in ICU. Will continue half-normal saline 100 cc an hour. Continue per pulmonary and ID. Prognosis poor. Continue to monitor renal parameters. Hydrate with half-normal saline, serum creatinine now at its lowest today. monitor electrolytes Will change the feeding to Nepro and monitor her potassium and other electrolytes Continue per ID Keep the blood pressure and blood sugar in check Monitor renal parameters Previously: Urine studies Monitor intake and output Cultures including stool for C. difficile Per orders Patient's CODE STATUS is full Subjective ROS Limited/Unobtainable: Yes Objective Objective Last 24 Hour Vital Signs Date Time Temp Pulse Resp B/P (MAP) Pulse Ox O2 Delivery O2 Flow Rate FiO2 12/02/19 10:00 82 20 136/55 (82) 98 12/02/19 09:30 80 20 116/53 (74) 99 12/02/19 09:00 82 20 112/53 (72) 99 12/02/19 08:30 81 20 122/56 (78) 99 12/02/19 08:00 80 12/02/19 08:00 30 12/02/19 08:00 99.3 79 20 131/53 (79) 100 12/02/19 08:00 Mechanical Ventilator 12/02/19 07:46 78 20 30 12/02/19 07:00 84 20 126/53 (77) 99 12/02/19 06:00 79 20 118/51 (73) 99 12/02/19 05:00 78 20 113/54 (73) 99 12/02/19 04:00 35 12/02/19 04:00 98.1 79 20 114/53 (73) 98 12/02/19 04:00 Mechanical Ventilator 12/02/19 03:30 86 20 30 12/02/19 03:30 84 20 110/53 (72) 98 12/02/19 03:21 83 12/02/19 03:00 94 20 112/73 (86) 98 12/02/19 02:00 89 20 127/59 (81) 98 12/02/19 01:00 88 20 142/68 (92) 98 12/02/19 00:00 97.5 83 20 131/64 (86) 98 12/02/19 00:00 Mechanical Ventilator 12/02/19 00:00 35 12/01/19 23:17 83 12/01/19 23:09 84 20 30 12/01/19 23:00 81 20 145/60 (88) 98 12/01/19 22:00 78 20 126/60 (82) 98 12/01/19 21:00 82 20 130/57 (81) 99 12/01/19 20:30 83 20 130/55 (80) 100 12/01/19 20:00 Mechanical Ventilator 12/01/19 20:00 97.7 82 20 131/48 (75) 96 12/01/19 20:00 35 12/01/19 19:30 78 20 30 12/01/19 19:20 76 12/01/19 19:00 79 20 124/56 (78) 96 12/01/19 18:07 77 20 111/58 (75) 96 12/01/19 17:00 80 22 113/53 (73) 100 12/01/19 16:00 35 12/01/19 16:00 78 12/01/19 16:00 Mechanical Ventilator 12/01/19 16:00 97.4 79 19 115/46 (69) 100 12/01/19 15:10 79 20 35 12/01/19 15:00 78 20 115/47 (69) 100 12/01/19 14:00 79 20 122/44 (70) 99 12/01/19 13:30 80 22 114/41 (65) 98 12/01/19 13:00 78 21 114/41 (65) 97 12/01/19 13:00 77 21 95/39 (57) 99 12/01/19 12:30 76 22 113/37 (62) 99 12/01/19 12:00 35 12/01/19 12:00 83 12/01/19 12:00 Mechanical Ventilator 12/01/19 12:00 97.4 85 20 107/36 (59) 99 12/01/19 11:30 85 22 113/37 (62) 99 12/01/19 11:24 78 20 35 12/01/19 11:00 83 19 111/55 (73) 100 Intake and Output 12/01/19 12/02/19 19:00 07:00 Intake Total 1248 ml 1235 ml Output Total 530 ml 170 ml Balance 718 ml 1065 ml Free Water 70 ml IV Total 703 ml 685 ml Tube Feeding 455 ml 480 ml Other 90 ml Output Urine Total 230 ml 170 ml Stool Total 300 ml Laboratory Tests 12/02/19 04:00: White Blood Count 12.7H, Red Blood Count 2.90L, Hemoglobin 8.2L, Hematocrit 27.1L, Mean Corpuscular Volume 94, Mean Corpuscular Hemoglobin 28.2, Mean Corpuscular Hemoglobin Concent 30.2L, Red Cell Distribution Width 16.8H, Platelet Count 220, Mean Platelet Volume 7.0, Neutrophils (%) (Auto) , Lymphocytes (%) (Auto) , Monocytes (%) (Auto) , Eosinophils (%) (Auto) , Basophils (%) (Auto) , Sodium Level 145, Potassium Level 3.7, Chloride Level 113H, Carbon Dioxide Level 21, Anion Gap 11, Blood Urea Nitrogen 69H, Creatinine 2.9H, Estimat Glomerular Filtration Rate 21.5, Glucose Level 111H, Calcium Level 7.7L, Phosphorus Level 4.4, Magnesium Level 2.1, Total Bilirubin 0.2, Direct Bilirubin < 0.1, Aspartate Amino Transf (AST/SGOT) 49H, Alanine Aminotransferase (ALT/SGPT) 12, Alkaline Phosphatase 88, Total Protein 4.6L, Albumin 0.8L Height (Feet): 6 Height (Inches): 0.00 Weight (Pounds): 163 General Appearance: no apparent distress EENT: other - Intubated on ventilator Cardiovascular: tachycardia Respiratory/Chest: decreased breath sounds Abdomen: distended Objective No other change Ricardo Choudhary MD Dec 02, 2019 10:37
--- NOTE | 2019-12-02 10:45 | Pulmonolgy Critical Care Note ---
Critical Care - Asmt/Plan Problems: (1) Acute respiratory failure (2) Cardiac arrest (3) Bacteremia Assessment & Plan: enterocococus fecalis in blood. Proteus and Pseudomonas in sputum. 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 - Objective Last 24 Hour Vital Signs Date Time Temp Pulse Resp B/P (MAP) Pulse Ox O2 Delivery O2 Flow Rate FiO2 12/02/19 10:00 82 20 136/55 (82) 98 12/02/19 09:30 80 20 116/53 (74) 99 12/02/19 09:00 82 20 112/53 (72) 99 12/02/19 08:30 81 20 122/56 (78) 99 12/02/19 08:00 80 12/02/19 08:00 30 12/02/19 08:00 99.3 79 20 131/53 (79) 100 12/02/19 08:00 Mechanical Ventilator 12/02/19 07:46 78 20 30 12/02/19 07:00 84 20 126/53 (77) 99 12/02/19 06:00 79 20 118/51 (73) 99 12/02/19 05:00 78 20 113/54 (73) 99 12/02/19 04:00 35 12/02/19 04:00 98.1 79 20 114/53 (73) 98 12/02/19 04:00 Mechanical Ventilator 12/02/19 03:30 86 20 30 12/02/19 03:30 84 20 110/53 (72) 98 12/02/19 03:21 83 12/02/19 03:00 94 20 112/73 (86) 98 12/02/19 02:00 89 20 127/59 (81) 98 12/02/19 01:00 88 20 142/68 (92) 98 12/02/19 00:00 97.5 83 20 131/64 (86) 98 12/02/19 00:00 Mechanical Ventilator 12/02/19 00:00 35 12/01/19 23:17 83 12/01/19 23:09 84 20 30 12/01/19 23:00 81 20 145/60 (88) 98 12/01/19 22:00 78 20 126/60 (82) 98 12/01/19 21:00 82 20 130/57 (81) 99 12/01/19 20:30 83 20 130/55 (80) 100 12/01/19 20:00 Mechanical Ventilator 12/01/19 20:00 97.7 82 20 131/48 (75) 96 12/01/19 20:00 35 12/01/19 19:30 78 20 30 12/01/19 19:20 76 12/01/19 19:00 79 20 124/56 (78) 96 12/01/19 18:07 77 20 111/58 (75) 96 12/01/19 17:00 80 22 113/53 (73) 100 12/01/19 16:00 35 12/01/19 16:00 78 12/01/19 16:00 Mechanical Ventilator 12/01/19 16:00 97.4 79 19 115/46 (69) 100 12/01/19 15:10 79 20 35 12/01/19 15:00 78 20 115/47 (69) 100 12/01/19 14:00 79 20 122/44 (70) 99 12/01/19 13:30 80 22 114/41 (65) 98 12/01/19 13:00 78 21 114/41 (65) 97 12/01/19 13:00 77 21 95/39 (57) 99 12/01/19 12:30 76 22 113/37 (62) 99 12/01/19 12:00 35 12/01/19 12:00 83 12/01/19 12:00 Mechanical Ventilator 12/01/19 12:00 97.4 85 20 107/36 (59) 99 12/01/19 11:30 85 22 113/37 (62) 99 12/01/19 11:24 78 20 35 12/01/19 11:00 83 19 111/55 (73) 100 Status: obtunded Condition: critical HEENT: atraumatic Lungs: clear Heart: HR/BP stable Abdomen: soft, non-tender Extremities: no C/C/E Critical Care - Subjective ROS Limited/Unobtainable: Yes FI02: 30 Vent Support Breath Rate: 20 Vent Support Mode: AC Vent Tidal Volume: 550 Sputum Amount: Small PEEP: 5.0 PIP: 23 Tube Feeding Amount: 40 I&O: Intake and Output 12/01/19 12/02/19 19:00 07:00 Intake Total 1248 ml 1235 ml Output Total 530 ml 170 ml Balance 718 ml 1065 ml Free Water 70 ml IV Total 703 ml 685 ml Tube Feeding 455 ml 480 ml Other 90 ml Output Urine Total 230 ml 170 ml Stool Total 300 ml CXR: no change ET-Tube: 8.0 ET Position: 23 Labs: Laboratory Tests Test 12/02/19 04:00 White Blood Count 12.7 K/UL (4.8-10.8) H Red Blood Count 2.90 M/UL (4.70-6.10) L Hemoglobin 8.2 G/DL (14.2-18.0) L Hematocrit 27.1 % (42.0-52.0) L Mean Corpuscular Volume 94 FL (80-99) Mean Corpuscular Hemoglobin 28.2 PG (27.0-31.0) Mean Corpuscular Hemoglobin Concent 30.2 G/DL (32.0-36.0) L Red Cell Distribution Width 16.8 % (11.6-14.8) H Platelet Count 220 K/UL (150-450) Mean Platelet Volume 7.0 FL (6.5-10.1) Neutrophils (%) (Auto) % (45.0-75.0) Lymphocytes (%) (Auto) % (20.0-45.0) Monocytes (%) (Auto) % (1.0-10.0) Eosinophils (%) (Auto) % (0.0-3.0) Basophils (%) (Auto) % (0.0-2.0) Sodium Level 145 MMOL/L (136-145) Potassium Level 3.7 MMOL/L (3.5-5.1) Chloride Level 113 MMOL/L (98-107) H Carbon Dioxide Level 21 MMOL/L (21-32) Anion Gap 11 mmol/L (5-15) Blood Urea Nitrogen 69 mg/dL (7-18) H Creatinine 2.9 MG/DL (0.55-1.30) H Estimat Glomerular Filtration Rate 21.5 mL/min (>60) Glucose Level 111 MG/DL (74-106) H Calcium Level 7.7 MG/DL (8.5-10.1) L Phosphorus Level 4.4 MG/DL (2.5-4.9) Magnesium Level 2.1 MG/DL (1.8-2.4) Total Bilirubin 0.2 MG/DL (0.2-1.0) Direct Bilirubin < 0.1 MG/DL (0.0-0.3) Aspartate Amino Transf (AST/SGOT) 49 U/L (15-37) H Alanine Aminotransferase (ALT/SGPT) 12 U/L (12-78) Alkaline Phosphatase 88 U/L (46-116) Total Protein 4.6 G/DL (6.4-8.2) L Albumin 0.8 G/DL (3.4-5.0) L Ayana Ndiaye MD Dec 02, 2019 10:45
--- NOTE | 2019-12-02 12:13 | Infectious Diseases Prog Note ---
Assessment/Plan Assessment/Plan Assessment: PEA arrest> unstable SVT s/p cardioversion 11/17 Septic shock- SP Fever, recurrent; SP Leukocytosis; fluctuating; improving -11/23 u/a wbc 15-20, nit neg, leuk +2; ucx C. lusitanae Bcx Neg -11/17 u/a no pyuria; ucx neg Bcx Neg sp cx PsA (R Zosyn; S Gentamycin, levaquin, Cefepime, ceftazidime, Meropenem), P. mirabilis ([place] S) Pneumonia Acute hypoxic resp failure- sp NRB 15L, now VDRF 11/17 - 2ry to COVID19 and superimposed bacterial PNA -11/28 CXR: Slight increased alveolar infiltrates. -11/24 CXR: Right basilar pleural effusion and likely parenchymal consolidation are unchanged sp cx MDR PSA (S Cefepime, Genta, Levaquin) -11/22 CXR: Slight increased right effusion. Right basilar infiltrate again noted. -11/19 CXR: There is been worsening of moderately consolidating right middle lobe pneumonia. -11/17 CXR: Bilateral lower lobe atelectasis/infiltrates, slightly increased. No large pleural effusions. -11/15 CXR: New/increased infiltrates at the left lateral lung base -11/11 CXR: Mild interstitial thickening is slightly improved. -11/10 CXR: Hazy basilar infiltrates left greater than right. sp cx PsA (blackwood S), P.mirabilis ([place] S), MRSA (S Vanco CARLOS 1, bactrim; R tetracycline ) -11/10 SARS-COV2 positive UTI c/w bacteremia -u/a wbc 5-10, nit neg, leuk +1, RBC TNCT; ucx 10-20k E. faecalis (S amp, vanco) -11/10 Bcx 2/4 E. faecalis (S Vancomycin, AMP) CONS bacteremia- likely contaminant -11/10 Bcx 2/ S. 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 Will continue to follow along with you. Discussed with RN and pharm Subjective Allergies: Coded Allergies: No Known Allergies (Unverified , 09/16/19) Subjective afebrile wbc improving Cr increased Objective Vital Signs Last 24 Hour Vital Signs Date Time Temp Pulse Resp B/P (MAP) Pulse Ox O2 Delivery O2 Flow Rate FiO2 12/02/19 11:08 79 20 30 12/02/19 11:00 83 20 122/53 (76) 98 12/02/19 10:00 82 20 136/55 (82) 98 12/02/19 09:30 80 20 116/53 (74) 99 12/02/19 09:00 82 20 112/53 (72) 99 12/02/19 08:30 81 20 122/56 (78) 99 12/02/19 08:00 80 12/02/19 08:00 30 12/02/19 08:00 99.3 79 20 131/53 (79) 100 12/02/19 08:00 Mechanical Ventilator 12/02/19 07:46 78 20 30 12/02/19 07:00 84 20 126/53 (77) 99 12/02/19 06:00 79 20 118/51 (73) 99 12/02/19 05:00 78 20 113/54 (73) 99 12/02/19 04:00 35 12/02/19 04:00 98.1 79 20 114/53 (73) 98 12/02/19 04:00 Mechanical Ventilator 12/02/19 03:30 86 20 30 6/19/20 03:30 84 20 110/53 (72) 98 12/02/19 03:21 83 12/02/19 03:00 94 20 112/73 (86) 98 12/02/19 02:00 89 20 127/59 (81) 98 12/02/19 01:00 88 20 142/68 (92) 98 12/02/19 00:00 97.5 83 20 131/64 (86) 98 12/02/19 00:00 Mechanical Ventilator 12/02/19 00:00 35 12/01/19 23:17 83 12/01/19 23:09 84 20 30 12/01/19 23:00 81 20 145/60 (88) 98 12/01/19 22:00 78 20 126/60 (82) 98 12/01/19 21:00 82 20 130/57 (81) 99 12/01/19 20:30 83 20 130/55 (80) 100 12/01/19 20:00 Mechanical Ventilator 12/01/19 20:00 97.7 82 20 131/48 (75) 96 12/01/19 20:00 35 12/01/19 19:30 78 20 30 12/01/19 19:20 76 12/01/19 19:00 79 20 124/56 (78) 96 12/01/19 18:07 77 20 111/58 (75) 96 12/01/19 17:00 80 22 113/53 (73) 100 12/01/19 16:00 35 12/01/19 16:00 78 12/01/19 16:00 Mechanical Ventilator 12/01/19 16:00 97.4 79 19 115/46 (69) 100 12/01/19 15:10 79 20 35 12/01/19 15:00 78 20 115/47 (69) 100 12/01/19 14:00 79 20 122/44 (70) 99 12/01/19 13:30 80 22 114/41 (65) 98 12/01/19 13:00 78 21 114/41 (65) 97 12/01/19 13:00 77 21 95/39 (57) 99 12/01/19 12:30 76 22 113/37 (62) 99 Height (Feet): 6 Height (Inches): 0.00 Weight (Pounds): 163 Objective Gen: critically ill HEENT: ETT in place Lungs: no tacypnea or use of accessory muscles Neuro: lethargic Laboratory Tests Test 12/02/19 04:00 White Blood Count 12.7 K/UL (4.8-10.8) H Red Blood Count 2.90 M/UL (4.70-6.10) L Hemoglobin 8.2 G/DL (14.2-18.0) L Hematocrit 27.1 % (42.0-52.0) L Mean Corpuscular Volume 94 FL (80-99) Mean Corpuscular Hemoglobin 28.2 PG (27.0-31.0) Mean Corpuscular Hemoglobin Concent 30.2 G/DL (32.0-36.0) L Red Cell Distribution Width 16.8 % (11.6-14.8) H Platelet Count 220 K/UL (150-450) Mean Platelet Volume 7.0 FL (6.5-10.1) Neutrophils (%) (Auto) % (45.0-75.0) Lymphocytes (%) (Auto) % (20.0-45.0) Monocytes (%) (Auto) % (1.0-10.0) Eosinophils (%) (Auto) % (0.0-3.0) Basophils (%) (Auto) % (0.0-2.0) Sodium Level 145 MMOL/L (136-145) Potassium Level 3.7 MMOL/L (3.5-5.1) Chloride Level 113 MMOL/L (98-107) H Carbon Dioxide Level 21 MMOL/L (21-32) Anion Gap 11 mmol/L (5-15) Blood Urea Nitrogen 69 mg/dL (7-18) H Creatinine 2.9 MG/DL (0.55-1.30) H Estimat Glomerular Filtration Rate 21.5 mL/min (>60) Glucose Level 111 MG/DL (74-106) H Calcium Level 7.7 MG/DL (8.5-10.1) L Phosphorus Level 4.4 MG/DL (2.5-4.9) Magnesium Level 2.1 MG/DL (1.8-2.4) Total Bilirubin 0.2 MG/DL (0.2-1.0) Direct Bilirubin < 0.1 MG/DL (0.0-0.3) Aspartate Amino Transf (AST/SGOT) 49 U/L (15-37) H Alanine Aminotransferase (ALT/SGPT) 12 U/L (12-78) Alkaline Phosphatase 88 U/L (46-116) Total Protein 4.6 G/DL (6.4-8.2) L Albumin 0.8 G/DL (3.4-5.0) L Current Medications Medications (Trade) Dose Ordered Sig/Leonor Route PRN Reason Start Time Stop Time Status Last Admin Dose Admin Acetaminophen (Tylenol) 650 mg Q4H PRN GT fever 11/18/19 03:00 12/11/19 02:59 11/28/19 05:07 Allopurinol (allopurinoL) 300 mg DAILY GT 11/21/19 09:00 12/21/19 08:59 12/02/19 08:47 Cefepime HCl 2 gm/ Dextrose 55 ml @ 110 mls/hr Q24H IVPB 11/27/19 21:00 12/04/19 20:59 12/01/19 19:53 Chlorhexidine Gluconate (Danielle-Hex 2%) 1 applic DAILY@2000 TOPIC 11/18/19 20:00 02/16/20 19:59 12/01/19 19:45 Dextrose/Sodium Chloride 1,000 ml @ 50 mls/hr Q20H IV 11/22/19 10:15 12/20/19 10:14 12/02/19 03:30 Fidaxomicin (Dificid) 200 mg EVERY 12 HOURS ORAL 11/30/19 21:00 12/07/19 20:59 12/02/19 10:57 Heparin Sodium (Porcine) (Heparin 5000 units/ml) 5,000 units EVERY 12 HOURS SUBQ 11/18/19 09:00 12/26/19 08:59 12/02/19 08:51 Metoclopramide HCl (Reglan) 5 mg Q6HR IVP 12/01/19 12:00 12/31/19 11:59 12/02/19 04:44 Midodrine (Pro-Amatine) 10 mg Q8HR GT 11/29/19 14:00 02/20/20 13:59 12/02/19 04:44 Norepinephrine Bitartrate 8 mg/ Dextrose 558 ml @ 0 mls/hr Q24H IV 11/18/19 10:00 12/18/19 09:59 11/23/19 22:22 Ondansetron HCl (Zofran) 4 mg Q6H PRN IVP Nausea & Vomiting 11/18/19 03:00 12/11/19 08:59 Sevelamer Carbonate (Renvela) 800 mg Q12HR GT 11/29/19 21:00 02/20/20 07:59 12/02/19 08:47 Shannon Mark M.D. Dec 02, 2019 12:13
--- NOTE | 2019-12-02 12:59 | General Progress Note ---
Assessment/Plan Problem List: (1) DM (diabetes mellitus) ICD Codes: E11.9 - Type 2 diabetes mellitus without complications SNOMED: 85395758 (2) Dysphagia ICD Codes: R13.10 - Dysphagia, unspecified SNOMED: 05183751, 196557481 (3) Suspected COVID-19 virus infection ICD Codes: Z20.828 - Contact with and (suspected) exposure to other viral communicable diseases SNOMED: 650540607 (4) Respiratory failure with hypoxia ICD Codes: J96.91 - Respiratory failure, unspecified with hypoxia SNOMED: 23676383894956009 Qualifiers: Qualified Codes: J96.01 - Acute respiratory failure with hypoxia (5) Anemia ICD Codes: D64.9 - Anemia, unspecified SNOMED: 338421185 Qualifiers: Qualified Codes: D64.9 - Anemia, unspecified (6) UTI (urinary tract infection) ICD Codes: N39.0 - Urinary tract infection, site not specified SNOMED: 69455790 Qualifiers: Qualified Codes: N30.00 - Acute cystitis without hematuria (7) ARF (acute renal failure) ICD Codes: N17.9 - Acute kidney failure, unspecified SNOMED: 39922590 Qualifiers: Qualified Codes: N17.9 - Acute kidney failure, unspecified (8) DM (diabetes mellitus) ICD Codes: E11.9 - Type 2 diabetes mellitus without complications SNOMED: 71221147 (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 - Cerebral infarction due to unspecified occlusion or stenosis of left middle cerebral artery SNOMED: 770407698 (10) Sepsis ICD Codes: A41.9 - Sepsis, unspecified organism SNOMED: 43300316 Qualifiers: Qualified Codes: A41.9 - Sepsis, unspecified organism; R65.20 - Severe sepsis without septic shock; J96.01 - Acute respiratory failure with hypoxia (11) Decubitus skin ulcer ICD Codes: L89.90 - Pressure ulcer of unspecified site, unspecified stage SNOMED: 302469423 Status: unchanged Assessment/Plan: on reglan monitor for residuals Tuble flush fu labs ICU care Subjective ROS Limited/Unobtainable: No Allergies: Coded Allergies: No Known Allergies (Unverified , 09/16/19) Objective Last 24 Hour Vital Signs Date Time Temp Pulse Resp B/P (MAP) Pulse Ox O2 Delivery O2 Flow Rate FiO2 12/02/19 11:08 79 20 30 12/02/19 11:00 83 20 122/53 (76) 98 12/02/19 10:00 82 20 136/55 (82) 98 12/02/19 09:30 80 20 116/53 (74) 99 12/02/19 09:00 82 20 112/53 (72) 99 12/02/19 08:30 81 20 122/56 (78) 99 12/02/19 08:00 80 12/02/19 08:00 30 12/02/19 08:00 99.3 79 20 131/53 (79) 100 12/02/19 08:00 Mechanical Ventilator 12/02/19 07:46 78 20 30 12/02/19 07:00 84 20 126/53 (77) 99 12/02/19 06:00 79 20 118/51 (73) 99 12/02/19 05:00 78 20 113/54 (73) 99 12/02/19 04:00 35 12/02/19 04:00 98.1 79 20 114/53 (73) 98 12/02/19 04:00 Mechanical Ventilator 12/02/19 03:30 86 20 30 12/02/19 03:30 84 20 110/53 (72) 98 12/02/19 03:21 83 12/02/19 03:00 94 20 112/73 (86) 98 12/02/19 02:00 89 20 127/59 (81) 98 12/02/19 01:00 88 20 142/68 (92) 98 12/02/19 00:00 97.5 83 20 131/64 (86) 98 12/02/19 00:00 Mechanical Ventilator 12/02/19 00:00 35 12/01/19 23:17 83 12/01/19 23:09 84 20 30 12/01/19 23:00 81 20 145/60 (88) 98 12/01/19 22:00 78 20 126/60 (82) 98 12/01/19 21:00 82 20 130/57 (81) 99 12/01/19 20:30 83 20 130/55 (80) 100 12/01/19 20:00 Mechanical Ventilator 12/01/19 20:00 97.7 82 20 131/48 (75) 96 12/01/19 20:00 35 12/01/19 19:30 78 20 30 12/01/19 19:20 76 12/01/19 19:00 79 20 124/56 (78) 96 12/01/19 18:07 77 20 111/58 (75) 96 12/01/19 17:00 80 22 113/53 (73) 100 12/01/19 16:00 35 12/01/19 16:00 78 12/01/19 16:00 Mechanical Ventilator 12/01/19 16:00 97.4 79 19 115/46 (69) 100 12/01/19 15:10 79 20 35 12/01/19 15:00 78 20 115/47 (69) 100 12/01/19 14:00 79 20 122/44 (70) 99 12/01/19 13:30 80 22 114/41 (65) 98 12/01/19 13:00 78 21 114/41 (65) 97 12/01/19 13:00 77 21 95/39 (57) 99 Intake and Output 12/01/19 12/02/19 19:00 07:00 Intake Total 1248 ml 1235 ml Output Total 530 ml 170 ml Balance 718 ml 1065 ml Free Water 70 ml IV Total 703 ml 685 ml Tube Feeding 455 ml 480 ml Other 90 ml Output Urine Total 230 ml 170 ml Stool Total 300 ml Laboratory Tests 12/02/19 04:00: White Blood Count 12.7H, Red Blood Count 2.90L, Hemoglobin 8.2L, Hematocrit 27.1L, Mean Corpuscular Volume 94, Mean Corpuscular Hemoglobin 28.2, Mean Corpuscular Hemoglobin Concent 30.2L, Red Cell Distribution Width 16.8H, Platelet Count 220, Mean Platelet Volume 7.0, Neutrophils (%) (Auto) , Lymphocytes (%) (Auto) , Monocytes (%) (Auto) , Eosinophils (%) (Auto) , Basophils (%) (Auto) , Sodium Level 145, Potassium Level 3.7, Chloride Level 113H, Carbon Dioxide Level 21, Anion Gap 11, Blood Urea Nitrogen 69H, Creatinine 2.9H, Estimat Glomerular Filtration Rate 21.5, Glucose Level 111H, Calcium Level 7.7L, Phosphorus Level 4.4, Magnesium Level 2.1, Total Bilirubin 0.2, Direct Bilirubin < 0.1, Aspartate Amino Transf (AST/SGOT) 49H, Alanine Aminotransferase (ALT/SGPT) 12, Alkaline Phosphatase 88, Total Protein 4.6L, Albumin 0.8L Height (Feet): 6 Height (Inches): 0.00 Weight (Pounds): 163 General Appearance: no apparent distress EENT: normal ENT inspection Neck: supple Cardiovascular: normal rate Respiratory/Chest: decreased breath sounds Abdomen: normal bowel sounds, non tender, soft Extremities: non-tender Louie Fan MD Dec 02, 2019 12:59
--- NOTE | 2019-12-02 14:54 | Surgery Progress Note ---
Surgery Progress Note Subjective Additional Comments ill appearing labs noted prognosis guarded leucocytosis anemia Objective Last 24 Hour Vital Signs Date Time Temp Pulse Resp B/P (MAP) Pulse Ox O2 Delivery O2 Flow Rate FiO2 12/02/19 14:00 84 20 114/54 (74) 99 12/02/19 13:30 85 20 115/54 (74) 99 12/02/19 13:00 81 20 111/58 (75) 99 12/02/19 12:30 91 20 118/55 (76) 98 12/02/19 12:00 99.0 102 21 124/61 (82) 96 12/02/19 12:00 Mechanical Ventilator 12/02/19 12:00 30 12/02/19 12:00 80 12/02/19 11:08 79 20 30 12/02/19 11:00 83 20 122/53 (76) 98 12/02/19 10:00 82 20 136/55 (82) 98 12/02/19 09:30 80 20 116/53 (74) 99 12/02/19 09:00 82 20 112/53 (72) 99 12/02/19 08:30 81 20 122/56 (78) 99 12/02/19 08:00 80 12/02/19 08:00 30 12/02/19 08:00 99.3 79 20 131/53 (79) 100 12/02/19 08:00 Mechanical Ventilator 12/02/19 07:46 78 20 30 12/02/19 07:00 84 20 126/53 (77) 99 12/02/19 06:00 79 20 118/51 (73) 99 12/02/19 05:00 78 20 113/54 (73) 99 12/02/19 04:00 35 12/02/19 04:00 98.1 79 20 114/53 (73) 98 12/02/19 04:00 Mechanical Ventilator 12/02/19 03:30 86 20 30 12/02/19 03:30 84 20 110/53 (72) 98 12/02/19 03:21 83 12/02/19 03:00 94 20 112/73 (86) 98 12/02/19 02:00 89 20 127/59 (81) 98 12/02/19 01:00 88 20 142/68 (92) 98 12/02/19 00:00 97.5 83 20 131/64 (86) 98 12/02/19 00:00 Mechanical Ventilator 12/02/19 00:00 35 12/01/19 23:17 83 12/01/19 23:09 84 20 30 12/01/19 23:00 81 20 145/60 (88) 98 12/01/19 22:00 78 20 126/60 (82) 98 12/01/19 21:00 82 20 130/57 (81) 99 12/01/19 20:30 83 20 130/55 (80) 100 12/01/19 20:00 Mechanical Ventilator 12/01/19 20:00 97.7 82 20 131/48 (75) 96 12/01/19 20:00 35 12/01/19 19:30 78 20 30 12/01/19 19:20 76 12/01/19 19:00 79 20 124/56 (78) 96 12/01/19 18:07 77 20 111/58 (75) 96 12/01/19 17:00 80 22 113/53 (73) 100 12/01/19 16:00 35 12/01/19 16:00 78 12/01/19 16:00 Mechanical Ventilator 12/01/19 16:00 97.4 79 19 115/46 (69) 100 12/01/19 15:10 79 20 35 12/01/19 15:00 78 20 115/47 (69) 100 I&O Intake and Output 12/01/19 12/02/19 19:00 07:00 Intake Total 1248 ml 1235 ml Output Total 530 ml 170 ml Balance 718 ml 1065 ml Free Water 70 ml IV Total 703 ml 685 ml Tube Feeding 455 ml 480 ml Other 90 ml Output Urine Total 230 ml 170 ml Stool Total 300 ml Dressing: other Wound: other Drains: other Cardiovascular: RSR Respiratory: decreased breath sounds Abdomen: soft, non-tender, present bowel sounds Extremities: no cyanosis Laboratory Tests Test 12/02/19 04:00 White Blood Count 12.7 K/UL (4.8-10.8) H Red Blood Count 2.90 M/UL (4.70-6.10) L Hemoglobin 8.2 G/DL (14.2-18.0) L Hematocrit 27.1 % (42.0-52.0) L Mean Corpuscular Volume 94 FL (80-99) Mean Corpuscular Hemoglobin 28.2 PG (27.0-31.0) Mean Corpuscular Hemoglobin Concent 30.2 G/DL (32.0-36.0) L Red Cell Distribution Width 16.8 % (11.6-14.8) H Platelet Count 220 K/UL (150-450) Mean Platelet Volume 7.0 FL (6.5-10.1) Neutrophils (%) (Auto) % (45.0-75.0) Lymphocytes (%) (Auto) % (20.0-45.0) Monocytes (%) (Auto) % (1.0-10.0) Eosinophils (%) (Auto) % (0.0-3.0) Basophils (%) (Auto) % (0.0-2.0) Sodium Level 145 MMOL/L (136-145) Potassium Level 3.7 MMOL/L (3.5-5.1) Chloride Level 113 MMOL/L (98-107) H Carbon Dioxide Level 21 MMOL/L (21-32) Anion Gap 11 mmol/L (5-15) Blood Urea Nitrogen 69 mg/dL (7-18) H Creatinine 2.9 MG/DL (0.55-1.30) H Estimat Glomerular Filtration Rate 21.5 mL/min (>60) Glucose Level 111 MG/DL (74-106) H Calcium Level 7.7 MG/DL (8.5-10.1) L Phosphorus Level 4.4 MG/DL (2.5-4.9) Magnesium Level 2.1 MG/DL (1.8-2.4) Total Bilirubin 0.2 MG/DL (0.2-1.0) Direct Bilirubin < 0.1 MG/DL (0.0-0.3) Aspartate Amino Transf (AST/SGOT) 49 U/L (15-37) H Alanine Aminotransferase (ALT/SGPT) 12 U/L (12-78) Alkaline Phosphatase 88 U/L (46-116) Total Protein 4.6 G/DL (6.4-8.2) L Albumin 0.8 G/DL (3.4-5.0) L Plan Problems: (1) Decubitus skin ulcer Assessment & Plan: Pt presented on admission with large sacral wound. Base of wound with areas that area purple and indurated sacrococcygeal,L sacrum/L gluteus,Scattered wounds with maceration L gluteus, one wound R sacrum with Biofilm, Surrounding non-blanching erythema entire buttocks. Small dry scabbed area noted to lumbar area. Unstageable Pressure Injury L heel. Base of wound is necrotic with surrounding non-blanching erythema. Tx.plan: Apply Moisture Barrier Paste to Buttocks. Cover Sacrum, R and L gluteal cheeks with Optifoam drsgs. Change every 3 days and prn. Apply Betadine to L heel. Cover with Optifoam drsg. Change every 3 days and prn. Reposition at least every 2hours or as tolerated. Place Pillow between knees. Off-load heels with Pillow. APM/BRUNILDA Mattress overlay. DAILY ESTIMATED NEEDS: Needs based on wt loss, underweight, wound/ 59kg 30-35 kcals/kg 5358-0890 total kcals 1.25-2 g protein/kg 74-118 g total protein 25-30 mL/kg 5421-9427 total fluid mLs NUTRITION DIAGNOSIS: * Increased kcal/prot intake needs R/T wound healing, suspected recent significant wt loss as evidenced by admitted w/ wounds @ lt posterior heel, R lower back, sacrum as per photos, pending eval, suspected significant wt loss of 40lbs/ 23.7% in <5 months, currently @ 81% IBW. . * Swallowing difficulty R/T dysphagia, h/o CVA as evidenced by PEG dependent. CURRENT TF:Glucerna 1.2 @65ml/hr x24 hrs ENTERAL NUTRITION RECOMMENDATIONS: NEPRO @45ml/hr x24 hrs to provide 1080ml, 1944 kcal, 87g pro, 785ml free H2O - Rec TF change for lower K content (1145mg in Nepro @45 vs 3151mg in Glucerna 1.2 @65) - Start at 25ml/hr advance as tolerated 10ml/hr q4-6 hrs - HOB over 30 degrees - Increased H20 flush to 200ml q4 hrs ADDITIONAL RECOMMENDATIONS: 1) Calibrated bedscale wt -> per SNF: HT=59" and AS=122uzm (10/20/19) 2) Wound healing: Add Vit C 500mg QD/ or dosing per nephro Add Osbaldo BID via PEG w/ TF order 3) Monitor lytes: monitor K trend, need for renal TF (K 5.3, 5.5) 4) NISS w/ TF (h/o DM) 5) Monitor for diarrhea, rec probiotics (2) Sepsis Assessment & Plan: 74-year-old male multi-medical comorbidities admitted for respiratory deficiency currently tachypneic, leukocytosis, malnutrition, hypoalbuminemia. Complete physical exam performed identified areas of concerned given patient's comorbidities current condition high risk for deteriorationNo active infection identified from patient's wounds and likely respiratory nature. Chest x-ray reviewed. No acute surgical intervention planned at this time Preventive measures IV antibiotics per infectious disease Okay for feeding once stable respiratory Appreciate Pulm input c diff positive on vanco blood cx noted worsening leukocytosis ID abx noted heme input noted There are increasing basilar opacities on the left noted. The heart size is normal. The pleural spaces are clear. Impression: New/increased infiltrates at the left lateral lung base We will follow with recommendations thank you for let me participate patient's care worsening in ICU now on pressors intubated febrile prognosis guarded ill appearing still weaning slowly (3) Left carotid artery occlusion (4) Left middle cerebral artery stroke (5) DM (diabetes mellitus) (6) ARF (acute renal failure) (7) Ventricular tachyarrhythmia (8) Aspiration pneumonia (9) Hypertension (10) UTI (urinary tract infection) (11) Anemia (12) Respiratory failure with hypoxia (13) Suspected COVID-19 virus infection Assessment & Plan: ++++ Elfego Payne Dec 02, 2019 14:54
[2019-12-02] MEDS ORDERED: Tubing IV Blood Pump IV ONE (16:55)
[2019-12-02] MEDS ORDERED: NS 275ml ONE (16:55)
[2019-12-02] MEDS: Dyna-Hex 2% Top Sol 2oz TOPIC SCH (20:10)
[2019-12-02] MEDS: Cefepime 2gm in D5W 55ml IVPB SCH (21:11)
[2019-12-03] VITALS (27 sets, daily range): BP systolic 99–142; BP diastolic 45–62
[2019-12-03] MEDS: Metoclopramide 10mg/2ml Inj IVP SCH ×5 (00:27→23:02)
[2019-12-03] MEDS: D5NS 1,000 ML IV SCH ×2 (01:26→22:00)
[2019-12-03 05:58] LABS: HEMATOCRIT 25.7 % (42.0-52.0); HEMOGLOBIN 7.9 G/DL (14.2-18.0); MEAN CORPUSCULAR VOLUME 92 FL (80-99); PLATELET COUNT 208 K/UL (150-450); RED BLOOD COUNT 2.78 M/UL (4.70-6.10); RED CELL DISTRIBUTION WIDTH 16.4 % (11.6-14.8); WHITE BLOOD COUNT 11.6 K/UL (4.8-10.8)
[2019-12-03 06:07] LABS: ALANINE AMINOTRANSFERASE 16 U/L (12-78); ALBUMIN 0.7 G/DL (3.4-5.0); ALBUMIN/GLOBULIN RATIO 0.2 (1.0-2.7); ALKALINE PHOSPHATASE 94 U/L (46-116); ANION GAP 11 mmol/L (5-15); ASPARTATE AMINO TRANSFERASE 54 U/L (15-37); BILIRUBIN,TOTAL 0.3 MG/DL (0.2-1.0); BLOOD UREA NITROGEN 71 mg/dL (7-18); CALCIUM 7.4 MG/DL (8.5-10.1); CARBON DIOXIDE 20 MMOL/L (21-32); CHLORIDE 114 MMOL/L (98-107); CREATININE 2.9 MG/DL (0.55-1.30); PHOSPHORUS 4.5 MG/DL (2.5-4.9); POTASSIUM 3.5 MMOL/L (3.5-5.1); SODIUM 145 MMOL/L (136-145)
[2019-12-03] MEDS: Midodrine 10mg tab GT SCH ×3 (06:20→22:00)
[2019-12-03] MEDS: Renvela 800mg Pkt GT SCH ×2 (08:52→20:18)
[2019-12-03] MEDS: Heparin 5000 units/ml inj SUBQ SCH ×2 (08:52→20:19)
[2019-12-03] MEDS ORDERED: Tubing IV Secondary IV ONE ×2 (09:34→09:58)
[2019-12-03] MEDS ORDERED: NS 275ml ONE ×4 (09:34→09:57)
[2019-12-03] MEDS ORDERED: D5NS 1000ml IV ONE ×3 (09:36→09:58)
--- NOTE | 2019-12-03 09:36 | General Progress Note ---
Assessment/Plan Problem List: (1) DM (diabetes mellitus) ICD Codes: E11.9 - Type 2 diabetes mellitus without complications SNOMED: 19430820 (2) ARF (acute renal failure) ICD Codes: N17.9 - Acute kidney failure, unspecified SNOMED: 67348839 Qualifiers: Qualified Codes: N17.9 - Acute kidney failure, unspecified (3) Aspiration pneumonia ICD Codes: J69.0 - Pneumonitis due to inhalation of food and vomit SNOMED: 126239201 (4) UTI (urinary tract infection) ICD Codes: N39.0 - Urinary tract infection, site not specified SNOMED: 72881767 Qualifiers: Qualified Codes: N30.00 - Acute cystitis without hematuria (5) Hypertension ICD Codes: I10 - Essential (primary) hypertension SNOMED: 27805135 (6) Anemia ICD Codes: D64.9 - Anemia, unspecified SNOMED: 758616801 Qualifiers: Qualified Codes: D64.9 - Anemia, unspecified (7) Respiratory failure with hypoxia ICD Codes: J96.91 - Respiratory failure, unspecified with hypoxia SNOMED: 52154592626669906 Qualifiers: Qualified Codes: J96.01 - Acute respiratory failure with hypoxia (8) Suspected COVID-19 virus infection ICD Codes: Z20.828 - Contact with and (suspected) exposure to other viral communicable diseases SNOMED: 254866674 Status: unchanged Assessment/Plan: vent abx pt diet cbc bmp am Subjective Allergies: Coded Allergies: No Known Allergies (Unverified , 09/16/19) All Systems: reviewed and negative except above Subjective intubated sedated in icu Objective Last 24 Hour Vital Signs Date Time Temp Pulse Resp B/P (MAP) Pulse Ox O2 Delivery O2 Flow Rate FiO2 12/03/19 08:00 30 12/03/19 08:00 Mechanical Ventilator 12/03/19 07:30 81 20 120/58 (78) 99 12/03/19 07:00 83 20 120/58 (78) 99 12/03/19 06:00 86 20 105/52 (69) 98 12/03/19 05:00 85 20 100/49 (66) 97 12/03/19 04:00 83 12/03/19 04:00 Mechanical Ventilator 12/03/19 04:00 30 12/03/19 04:00 99.2 101 18 99/51 (67) 97 12/03/19 03:28 106 20 30 12/03/19 03:00 99 21 116/45 (68) 94 12/03/19 02:00 109 21 109/53 (71) 94 12/03/19 01:00 95 21 116/62 (80) 94 12/03/19 00:00 Mechanical Ventilator 12/03/19 00:00 30 12/03/19 00:00 99.0 103 21 107/54 (71) 94 12/03/19 00:00 100 12/02/19 23:26 103 21 30 12/02/19 23:00 103 21 118/60 (79) 95 12/02/19 22:00 93 20 116/54 (74) 97 12/02/19 21:00 90 21 117/59 (78) 97 12/02/19 20:00 87 20 127/57 (80) 100 12/02/19 20:00 90 12/02/19 20:00 Mechanical Ventilator 12/02/19 19:57 80 23 30 12/02/19 19:00 86 19 97/50 (66) 98 12/02/19 18:00 85 20 114/53 (73) 98 12/02/19 17:30 81 20 115/51 (72) 98 12/02/19 17:00 82 20 109/50 (69) 98 12/02/19 16:00 98.8 83 20 118/51 (73) 99 12/02/19 16:00 30 12/02/19 16:00 80 12/02/19 16:00 Mechanical Ventilator 12/02/19 15:30 82 20 115/53 (73) 99 12/02/19 15:24 83 20 30 12/02/19 15:00 80 20 116/53 (74) 99 12/02/19 14:00 84 20 114/54 (74) 99 12/02/19 13:30 85 20 115/54 (74) 99 12/02/19 13:00 81 20 111/58 (75) 99 12/02/19 12:30 91 20 118/55 (76) 98 12/02/19 12:00 99.0 102 21 124/61 (82) 96 12/02/19 12:00 Mechanical Ventilator 12/02/19 12:00 30 12/02/19 12:00 80 12/02/19 11:08 79 20 30 12/02/19 11:00 83 20 122/53 (76) 98 12/02/19 10:00 82 20 136/55 (82) 98 Intake and Output 12/02/19 12/03/19 19:00 07:00 Intake Total 1060 ml 1240 ml Output Total 445 ml 445 ml Balance 615 ml 795 ml Free Water 110 ml IV Total 550 ml 650 ml Tube Feeding 480 ml 480 ml Other 30 ml Output Urine Total 195 ml 345 ml Stool Total 250 ml 100 ml # Bowel Movements 100 Laboratory Tests 12/03/19 04:30: White Blood Count 11.6H, Red Blood Count 2.78L, Hemoglobin 7.9L, Hematocrit 25.7L, Mean Corpuscular Volume 92, Mean Corpuscular Hemoglobin 28.4, Mean Corpuscular Hemoglobin Concent 30.8L, Red Cell Distribution Width 16.4H, Platelet Count 208, Mean Platelet Volume 6.7, Neutrophils (%) (Auto) , Lymphocytes (%) (Auto) , Monocytes (%) (Auto) , Eosinophils (%) (Auto) , Basophils (%) (Auto) , Neutrophils % (Manual) [Pending], Lymphocytes % (Manual) [Pending], Platelet Estimate [Pending], Platelet Morphology [Pending], Sodium Level 145, Potassium Level 3.5, Chloride Level 114H, Carbon Dioxide Level 20L, Anion Gap 11, Blood Urea Nitrogen 71H, Creatinine 2.9H, Estimat Glomerular Filtration Rate 21.5, Glucose Level 111H, Uric Acid 5.6, Calcium Level 7.4L, Phosphorus Level 4.5, Magnesium Level 2.1, Total Bilirubin 0.3, Aspartate Amino Transf (AST/SGOT) 54H, Alanine Aminotransferase (ALT/SGPT) 16, Alkaline Phosphatase 94, C-Reactive Protein, Quantitative 9.1H, Total Protein 5.0L, Albumin 0.7L, Globulin 4.3, Albumin/Globulin Ratio 0.2L Height (Feet): 6 Height (Inches): 0.00 Weight (Pounds): 166 General Appearance: lethargic EENT: normal ENT inspection Neck: normal alignment Cardiovascular: normal rate, regular rhythm Respiratory/Chest: no respiratory distress, no accessory muscle use Extremities: normal inspection Skin: normal pigmentation Juan Singh 20, 2020 09:36
[2019-12-03] MEDS: Norepinephrine Bitartrate 8 MG in D5W 500ml 550 ML IV SCH (10:00)
--- NOTE | 2019-12-03 11:19 | Nephrology Progress Note ---
Assessment/Plan Problem List: (1) ARF (acute renal failure) (2) Hyperkalemia (3) DM (diabetes mellitus) (4) Suspected COVID-19 virus infection (5) Sepsis (6) Severe malnutrition Assessment: Severe hypoalbuminemia Assessment his 74-year-old male with multiple Multiple medical problem presents with respiratory symptoms and diarrhea Renal failure most likely prerenal azotemia secondary to dehydration Hyperkalemia on presentation also secondary to dehydration Sepsis pneumonia hypoxia UTI Anemia History of hypertension History of diabetes mellitus Suspected COVID-19 virus infection Hypoalbuminemia Plan C. difficile positive COVID-19 detected December 02: Serum creatinine remains at 2.9. Anemia worsened. Iron panel ferritin ordered. 1 dose of Venofer 200 mg ordered. Subcutaneous Epogen started. Continues to be full code intubated on ventilator. No need for dialysis treatment at this time since serum creatinine appears to be stable. December 01: Serum creatinine gaudencio to 2.9. Continue to monitor renal parameters, urine output, and avoid nephrotoxic's as possible. November 30: Serum creatinine remains stable. Will discontinue calcium supplements. Continue per current treatment plan. No dialysis needed. November 29: Serum creatinine stable. Off pressors. No dialysis needed today. Discussed with JUSTINO Hernandez. Continue per consultants. November 28: Serum creatinine unchanged. Off pressors. Potassium supplement intravenously ordered. Discussed with JUSTINO Evans. No need for dialysis today. Continue to monitor renal parameters. Change midodrine from PRN to scheduled every 8 hours. November 27: Labs reviewed. No dialysis today. Discussed with RN. Potassium supplement given. Continue to monitor renal parameters. Continue per consultants. November 26: Lab reviewed. Remains full code. Remains intubated. Midodrin changed to PRN. Electrolytes acceptable. Will monitor renal parameters and urine output and dialyze as needed. November 25: Dialyzed yesterday. Lab reviewed. Remains full code. Remains intubated on ventilator. On minimal dose of pressors. 20 mEq potassium chloride IV ordered for low potassium level. November 24: Patient remains intubated. Due for dialysis today. Labs reviewed. Continues to be full code. November 23: Patient was dialyzed yesterday. Labs reviewed. Status quo. Remains full code. Will arrange for dialysis tomorrow. November 22: Patient in ICU. Intubated on ventilator. On low-dose pressors. Urine output labile. Serum creatinine rising. Patient developing acute renal failure. Need urgent dialysis treatment. Will arrange for placement of non- tunneled dialysis catheter as soon as possible. RN states that no family member or next of kin could be contacted at this time. Due to the urgency of the problem and the patient being full code will proceed with placement of dialysis catheter and dialysis treatment as soon as possible. November 21: Patient continues to do poorly. Discussed with RN. Started on Midodrin for BP support. Nephro feeding started. Phosphorus binders started. IV calcium ordered. Continue to monitor renal parameters and urine output. Continue per consultants. Patient remains full code. Per orders. November 20: Serum creatinine continuing to rise. Remains of 100 cc an hour IV fluid. Urine output remains low. Blood pressure also borderline low, on pressors. Continue per consultants. Continue to monitor renal parameters and urine output. Continue to avoid nephrotoxic's. Further deterioration of renal function may lead to dialysis treatment. Will discuss with PMD. November 19: Serum creatinine rising. Urine output decreasing. Will change to IV, D5 normal saline. Will give albumin bolus followed by Lasix 40 mg IV push. Continue to monitor renal parameters and urine output. Continue to avoid nephrotoxic medications as possible. Today's vancomycin level was 22. November 18: Serum creatinine rising. Continues to be full code. Continues to be intubated on ventilator. Remains on IV fluids. Vancomycin levels per pharmacy. Prognosis poor due to sepsis. November 17: Intubated on ventilator in ICU. Will continue half-normal saline 100 cc an hour. Continue per pulmonary and ID. Prognosis poor. Continue to monitor renal parameters. Hydrate with half-normal saline, serum creatinine now at its lowest today. monitor electrolytes Will change the feeding to Nepro and monitor her potassium and other electrolytes Continue per ID Keep the blood pressure and blood sugar in check Monitor renal parameters Previously: Urine studies Monitor intake and output Cultures including stool for C. difficile Per orders Patient's CODE STATUS is full Subjective ROS Limited/Unobtainable: Yes Objective Objective Last 24 Hour Vital Signs Date Time Temp Pulse Resp B/P (MAP) Pulse Ox O2 Delivery O2 Flow Rate FiO2 12/03/19 10:00 81 20 98 12/03/19 09:30 80 20 142/59 (86) 99 12/03/19 09:00 82 20 128/61 (83) 99 12/03/19 08:30 80 20 118/57 (77) 99 12/03/19 08:00 97.4 82 20 124/61 (82) 99 12/03/19 08:00 79 12/03/19 08:00 30 12/03/19 08:00 Mechanical Ventilator 12/03/19 07:30 81 20 120/58 (78) 99 12/03/19 07:00 83 20 120/58 (78) 99 12/03/19 06:00 86 20 105/52 (69) 98 12/03/19 05:00 85 20 100/49 (66) 97 12/03/19 04:00 83 12/03/19 04:00 Mechanical Ventilator 12/03/19 04:00 30 12/03/19 04:00 99.2 101 18 99/51 (67) 97 12/03/19 03:28 106 20 30 12/03/19 03:00 99 21 116/45 (68) 94 12/03/19 02:00 109 21 109/53 (71) 94 12/03/19 01:00 95 21 116/62 (80) 94 12/03/19 00:00 Mechanical Ventilator 12/03/19 00:00 30 12/03/19 00:00 99.0 103 21 107/54 (71) 94 12/03/19 00:00 100 12/02/19 23:26 103 21 30 12/02/19 23:00 103 21 118/60 (79) 95 12/02/19 22:00 93 20 116/54 (74) 97 12/02/19 21:00 90 21 117/59 (78) 97 12/02/19 20:00 87 20 127/57 (80) 100 12/02/19 20:00 90 12/02/19 20:00 Mechanical Ventilator 12/02/19 19:57 80 23 30 12/02/19 19:00 86 19 97/50 (66) 98 12/02/19 18:00 85 20 114/53 (73) 98 12/02/19 17:30 81 20 115/51 (72) 98 12/02/19 17:00 82 20 109/50 (69) 98 12/02/19 16:00 98.8 83 20 118/51 (73) 99 12/02/19 16:00 30 12/02/19 16:00 80 12/02/19 16:00 Mechanical Ventilator 12/02/19 15:30 82 20 115/53 (73) 99 12/02/19 15:24 83 20 30 12/02/19 15:00 80 20 116/53 (74) 99 12/02/19 14:00 84 20 114/54 (74) 99 12/02/19 13:30 85 20 115/54 (74) 99 12/02/19 13:00 81 20 111/58 (75) 99 12/02/19 12:30 91 20 118/55 (76) 98 12/02/19 12:00 99.0 102 21 124/61 (82) 96 12/02/19 12:00 Mechanical Ventilator 12/02/19 12:00 30 12/02/19 12:00 80 Intake and Output 12/02/19 12/03/19 19:00 07:00 Intake Total 1060 ml 1240 ml Output Total 445 ml 445 ml Balance 615 ml 795 ml Free Water 110 ml IV Total 550 ml 650 ml Tube Feeding 480 ml 480 ml Other 30 ml Output Urine Total 195 ml 345 ml Stool Total 250 ml 100 ml # Bowel Movements 100 Laboratory Tests 12/03/19 04:30: White Blood Count 11.6H, Red Blood Count 2.78L, Hemoglobin 7.9L, Hematocrit 25.7L, Mean Corpuscular Volume 92, Mean Corpuscular Hemoglobin 28.4, Mean Corpuscular Hemoglobin Concent 30.8L, Red Cell Distribution Width 16.4H, Platelet Count 208, Mean Platelet Volume 6.7, Neutrophils (%) (Auto) , Lymphocytes (%) (Auto) , Monocytes (%) (Auto) , Eosinophils (%) (Auto) , Basophils (%) (Auto) , Neutrophils % (Manual) [Pending], Lymphocytes % (Manual) [Pending], Platelet Estimate [Pending], Platelet Morphology [Pending], Sodium Level 145, Potassium Level 3.5, Chloride Level 114H, Carbon Dioxide Level 20L, Anion Gap 11, Blood Urea Nitrogen 71H, Creatinine 2.9H, Estimat Glomerular Filtration Rate 21.5, Glucose Level 111H, Uric Acid 5.6, Calcium Level 7.4L, Phosphorus Level 4.5, Magnesium Level 2.1, Total Bilirubin 0.3, Aspartate Amino Transf (AST/SGOT) 54H, Alanine Aminotransferase (ALT/SGPT) 16, Alkaline Phosphatase 94, C-Reactive Protein, Quantitative 9.1H, Total Protein 5.0L, Albumin 0.7L, Globulin 4.3, Albumin/Globulin Ratio 0.2L Height (Feet): 6 Height (Inches): 0.00 Weight (Pounds): 166 General Appearance: no apparent distress EENT: other - Intubated on ventilator Cardiovascular: tachycardia Respiratory/Chest: decreased breath sounds - Rate 80s Abdomen: distended Objective No other change Ricardo Choudhary MD Dec 03, 2019 11:19
[2019-12-03] MEDS ORDERED: Iron Sucrose 200 MG in NS 50 ML IV SCH (12:00)
--- NOTE | 2019-12-03 14:04 | Infectious Diseases Prog Note ---
Assessment/Plan Assessment/Plan Assessment: PEA arrest> unstable SVT s/p cardioversion 11/17 Septic shock- SP Fever, recurrent; SP Leukocytosis; fluctuating; improving -11/23 u/a wbc 15-20, nit neg, leuk +2; ucx C. lusitanae Bcx Neg -11/17 u/a no pyuria; ucx neg Bcx Neg sp cx PsA (R Zosyn; S Gentamycin, levaquin, Cefepime, ceftazidime, Meropenem), P. mirabilis ([facility] S) Pneumonia Acute hypoxic resp failure- sp NRB 15L, now VDRF 11/17 - 2ry to COVID19 and superimposed bacterial PNA -11/28 CXR: Slight increased alveolar infiltrates. -11/24 CXR: Right basilar pleural effusion and likely parenchymal consolidation are unchanged sp cx MDR PSA (S Cefepime, Genta, Levaquin) -11/22 CXR: Slight increased right effusion. Right basilar infiltrate again noted. -11/19 CXR: There is been worsening of moderately consolidating right middle lobe pneumonia. -11/17 CXR: Bilateral lower lobe atelectasis/infiltrates, slightly increased. No large pleural effusions. -11/15 CXR: New/increased infiltrates at the left lateral lung base -11/11 CXR: Mild interstitial thickening is slightly improved. -11/10 CXR: Hazy basilar infiltrates left greater than right. sp cx PsA ([place] S), P.mirabilis ([facility] S), MRSA (S Vanco CARLOS 1, bactrim; R tetracycline ) -11/10 SARS-COV2 positive UTI c/w bacteremia -u/a wbc 5-10, nit neg, leuk +1, RBC TNCT; ucx 10-20k E. faecalis (S amp, vanco) -11/10 Bcx 2/4 E. faecalis (S Vancomycin, AMP) CONS bacteremia- likely contaminant -11/10 Bcx 2/ S. 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 Will continue to follow along with you. Discussed with RN and pharm Subjective Allergies: Coded Allergies: No Known Allergies (Unverified , 09/16/19) Subjective afebrile wbc improving Objective Vital Signs Last 24 Hour Vital Signs Date Time Temp Pulse Resp B/P (MAP) Pulse Ox O2 Delivery O2 Flow Rate FiO2 12/03/19 13:00 83 20 125/56 (79) 99 12/03/19 12:00 82 20 124/57 (79) 99 12/03/19 12:00 82 12/03/19 11:00 82 20 130/55 (80) 99 12/03/19 10:00 81 20 98 12/03/19 10:00 80 20 120/58 (78) 99 12/03/19 09:30 80 20 142/59 (86) 99 12/03/19 09:00 82 20 128/61 (83) 99 12/03/19 08:30 80 20 118/57 (77) 99 12/03/19 08:00 97.4 82 20 124/61 (82) 99 12/03/19 08:00 79 12/03/19 08:00 30 12/03/19 08:00 Mechanical Ventilator 12/03/19 07:30 81 20 120/58 (78) 99 12/03/19 07:00 83 20 120/58 (78) 99 12/03/19 06:00 86 20 105/52 (69) 98 12/03/19 05:00 85 20 100/49 (66) 97 12/03/19 04:00 83 6/20/20 04:00 Mechanical Ventilator 12/03/19 04:00 30 12/03/19 04:00 99.2 101 18 99/51 (67) 97 12/03/19 03:28 106 20 30 12/03/19 03:00 99 21 116/45 (68) 94 12/03/19 02:00 109 21 109/53 (71) 94 12/03/19 01:00 95 21 116/62 (80) 94 12/03/19 00:00 Mechanical Ventilator 12/03/19 00:00 30 12/03/19 00:00 99.0 103 21 107/54 (71) 94 12/03/19 00:00 100 12/02/19 23:26 103 21 30 12/02/19 23:00 103 21 118/60 (79) 95 12/02/19 22:00 93 20 116/54 (74) 97 12/02/19 21:00 90 21 117/59 (78) 97 12/02/19 20:00 87 20 127/57 (80) 100 12/02/19 20:00 90 12/02/19 20:00 Mechanical Ventilator 12/02/19 19:57 80 23 30 12/02/19 19:00 86 19 97/50 (66) 98 12/02/19 18:00 85 20 114/53 (73) 98 12/02/19 17:30 81 20 115/51 (72) 98 12/02/19 17:00 82 20 109/50 (69) 98 12/02/19 16:00 98.8 83 20 118/51 (73) 99 12/02/19 16:00 30 12/02/19 16:00 80 12/02/19 16:00 Mechanical Ventilator 12/02/19 15:30 82 20 115/53 (73) 99 12/02/19 15:24 83 20 30 12/02/19 15:00 80 20 116/53 (74) 99 12/02/19 14:00 84 20 114/54 (74) 99 Height (Feet): 6 Height (Inches): 0.00 Weight (Pounds): 166 Objective Gen: critically ill HEENT: ETT in place Lungs: no tacypnea or use of accessory muscles Neuro: lethargic Laboratory Tests Test 12/03/19 04:30 White Blood Count 11.6 K/UL (4.8-10.8) H Red Blood Count 2.78 M/UL (4.70-6.10) L Hemoglobin 7.9 G/DL (14.2-18.0) L Hematocrit 25.7 % (42.0-52.0) L Mean Corpuscular Volume 92 FL (80-99) Mean Corpuscular Hemoglobin 28.4 PG (27.0-31.0) Mean Corpuscular Hemoglobin Concent 30.8 G/DL (32.0-36.0) L Red Cell Distribution Width 16.4 % (11.6-14.8) H Platelet Count 208 K/UL (150-450) Mean Platelet Volume 6.7 FL (6.5-10.1) Neutrophils (%) (Auto) % (45.0-75.0) Lymphocytes (%) (Auto) % (20.0-45.0) Monocytes (%) (Auto) % (1.0-10.0) Eosinophils (%) (Auto) % (0.0-3.0) Basophils (%) (Auto) % (0.0-2.0) Differential Total Cells Counted 100 Neutrophils % (Manual) 81 % (45-75) H Lymphocytes % (Manual) 12 % (20-45) L Monocytes % (Manual) 6 % (1-10) Eosinophils % (Manual) 0 % (0-3) Basophils % (Manual) 1 % (0-2) Band Neutrophils 0 % (0-8) Platelet Estimate Adequate Platelet Morphology Normal Hypochromasia 3+ Anisocytosis 1+ Sodium Level 145 MMOL/L (136-145) Potassium Level 3.5 MMOL/L (3.5-5.1) Chloride Level 114 MMOL/L (98-107) H Carbon Dioxide Level 20 MMOL/L (21-32) L Anion Gap 11 mmol/L (5-15) Blood Urea Nitrogen 71 mg/dL (7-18) H Creatinine 2.9 MG/DL (0.55-1.30) H Estimat Glomerular Filtration Rate 21.5 mL/min (>60) Glucose Level 111 MG/DL (74-106) H Uric Acid 5.6 MG/DL (2.6-7.2) Calcium Level 7.4 MG/DL (8.5-10.1) L Phosphorus Level 4.5 MG/DL (2.5-4.9) Magnesium Level 2.1 MG/DL (1.8-2.4) Total Bilirubin 0.3 MG/DL (0.2-1.0) Aspartate Amino Transf (AST/SGOT) 54 U/L (15-37) H Alanine Aminotransferase (ALT/SGPT) 16 U/L (12-78) Alkaline Phosphatase 94 U/L (46-116) C-Reactive Protein, Quantitative 9.1 mg/dL (0.00-0.90) H Total Protein 5.0 G/DL (6.4-8.2) L Albumin 0.7 G/DL (3.4-5.0) L Globulin 4.3 g/dL Albumin/Globulin Ratio 0.2 (1.0-2.7) L Current Medications Medications (Trade) Dose Ordered Sig/Leonor Route PRN Reason Start Time Stop Time Status Last Admin Dose Admin Acetaminophen (Tylenol) 650 mg Q4H PRN GT fever 11/18/19 03:00 12/11/19 02:59 11/28/19 05:07 Allopurinol (allopurinoL) 300 mg DAILY GT 11/21/19 09:00 12/21/19 08:59 12/03/19 08:52 Cefepime HCl 2 gm/ Dextrose 55 ml @ 110 mls/hr Q24H IVPB 11/27/19 21:00 12/04/19 20:59 12/02/19 21:11 Chlorhexidine Gluconate (Danielle-Hex 2%) 1 applic DAILY@2000 TOPIC 11/18/19 20:00 02/16/20 19:59 12/02/19 20:10 Dextrose/Sodium Chloride 1,000 ml @ 50 mls/hr Q20H IV 11/22/19 10:15 12/20/19 10:14 12/03/19 01:26 Epoetin Marek (Procrit (for non ESRD use)) 10,000 units THU-THU-THU SUBQ 12/05/19 21:00 03/04/20 20:59 Fidaxomicin (Dificid) 200 mg EVERY 12 HOURS ORAL 11/30/19 21:00 12/07/19 20:59 12/03/19 12:25 Heparin Sodium (Porcine) (Heparin 5000 units/ml) 5,000 units EVERY 12 HOURS SUBQ 11/18/19 09:00 12/26/19 08:59 12/02/19 21:12 Metoclopramide HCl (Reglan) 5 mg Q6HR IVP 12/01/19 12:00 12/31/19 11:59 12/03/19 12:26 Midodrine (Pro-Amatine) 10 mg Q8HR GT 12/03/19 14:00 02/20/20 13:59 Norepinephrine Bitartrate 8 mg/ Dextrose 558 ml @ 0 mls/hr Q24H IV 11/18/19 10:00 12/18/19 09:59 11/23/19 22:22 Ondansetron HCl (Zofran) 4 mg Q6H PRN IVP Nausea & Vomiting 11/18/19 03:00 12/11/19 08:59 Sevelamer Carbonate (Renvela) 800 mg Q12HR GT 11/29/19 21:00 02/20/20 07:59 12/03/19 08:52 Shannon Mark M.D. Dec 03, 2019 14:04
--- NOTE | 2019-12-03 16:48 | Surgery Progress Note ---
Surgery Progress Note Subjective Additional Comments Ill-appearing. Labs noted. Objective Last 24 Hour Vital Signs Date Time Temp Pulse Resp B/P (MAP) Pulse Ox O2 Delivery O2 Flow Rate FiO2 12/03/19 16:00 85 12/03/19 16:00 Mechanical Ventilator 12/03/19 16:00 30 12/03/19 16:00 97.7 82 20 118/60 (79) 99 12/03/19 15:00 84 20 117/56 (76) 99 12/03/19 14:00 85 20 126/61 (82) 99 12/03/19 13:00 83 20 125/56 (79) 99 12/03/19 12:00 97.4 12/03/19 12:00 Mechanical Ventilator 12/03/19 12:00 30 12/03/19 12:00 82 20 124/57 (79) 99 12/03/19 12:00 82 12/03/19 11:00 82 20 130/55 (80) 99 12/03/19 10:00 81 20 98 12/03/19 10:00 80 20 120/58 (78) 99 12/03/19 09:30 80 20 142/59 (86) 99 12/03/19 09:00 82 20 128/61 (83) 99 12/03/19 08:30 80 20 118/57 (77) 99 12/03/19 08:00 97.4 82 20 124/61 (82) 99 12/03/19 08:00 79 12/03/19 08:00 30 12/03/19 08:00 Mechanical Ventilator 12/03/19 07:30 81 20 120/58 (78) 99 12/03/19 07:00 83 20 120/58 (78) 99 12/03/19 06:00 86 20 105/52 (69) 98 12/03/19 05:00 85 20 100/49 (66) 97 12/03/19 04:00 83 12/03/19 04:00 Mechanical Ventilator 12/03/19 04:00 30 12/03/19 04:00 99.2 101 18 99/51 (67) 97 12/03/19 03:28 106 20 30 12/03/19 03:00 99 21 116/45 (68) 94 12/03/19 02:00 109 21 109/53 (71) 94 12/03/19 01:00 95 21 116/62 (80) 94 12/03/19 00:00 Mechanical Ventilator 12/03/19 00:00 30 12/03/19 00:00 99.0 103 21 107/54 (71) 94 12/03/19 00:00 100 12/02/19 23:26 103 21 30 12/02/19 23:00 103 21 118/60 (79) 95 12/02/19 22:00 93 20 116/54 (74) 97 12/02/19 21:00 90 21 117/59 (78) 97 12/02/19 20:00 87 20 127/57 (80) 100 12/02/19 20:00 90 12/02/19 20:00 Mechanical Ventilator 12/02/19 19:57 80 23 30 12/02/19 19:00 86 19 97/50 (66) 98 12/02/19 18:00 85 20 114/53 (73) 98 12/02/19 17:30 81 20 115/51 (72) 98 12/02/19 17:00 82 20 109/50 (69) 98 I&O Intake and Output 12/02/19 12/03/19 19:00 07:00 Intake Total 1060 ml 1240 ml Output Total 445 ml 445 ml Balance 615 ml 795 ml Free Water 110 ml IV Total 550 ml 650 ml Tube Feeding 480 ml 480 ml Other 30 ml Output Urine Total 195 ml 345 ml Stool Total 250 ml 100 ml # Bowel Movements 100 Dressing: other Wound: other Drains: other Cardiovascular: RSR Respiratory: decreased breath sounds Abdomen: soft, non-distended, decreased bowel sounds Extremities: edema, no cyanosis Laboratory Tests Test 12/03/19 04:30 12/03/19 15:10 White Blood Count 11.6 K/UL (4.8-10.8) H Red Blood Count 2.78 M/UL (4.70-6.10) L Hemoglobin 7.9 G/DL (14.2-18.0) L Hematocrit 25.7 % (42.0-52.0) L Mean Corpuscular Volume 92 FL (80-99) Mean Corpuscular Hemoglobin 28.4 PG (27.0-31.0) Mean Corpuscular Hemoglobin Concent 30.8 G/DL (32.0-36.0) L Red Cell Distribution Width 16.4 % (11.6-14.8) H Platelet Count 208 K/UL (150-450) Mean Platelet Volume 6.7 FL (6.5-10.1) Neutrophils (%) (Auto) % (45.0-75.0) Lymphocytes (%) (Auto) % (20.0-45.0) Monocytes (%) (Auto) % (1.0-10.0) Eosinophils (%) (Auto) % (0.0-3.0) Basophils (%) (Auto) % (0.0-2.0) Differential Total Cells Counted 100 Neutrophils % (Manual) 81 % (45-75) H Lymphocytes % (Manual) 12 % (20-45) L Monocytes % (Manual) 6 % (1-10) Eosinophils % (Manual) 0 % (0-3) Basophils % (Manual) 1 % (0-2) Band Neutrophils 0 % (0-8) Platelet Estimate Adequate Platelet Morphology Normal Hypochromasia 3+ Anisocytosis 1+ Sodium Level 145 MMOL/L (136-145) Potassium Level 3.5 MMOL/L (3.5-5.1) Chloride Level 114 MMOL/L (98-107) H Carbon Dioxide Level 20 MMOL/L (21-32) L Anion Gap 11 mmol/L (5-15) Blood Urea Nitrogen 71 mg/dL (7-18) H Creatinine 2.9 MG/DL (0.55-1.30) H Estimat Glomerular Filtration Rate 21.5 mL/min (>60) Glucose Level 111 MG/DL (74-106) H Uric Acid 5.6 MG/DL (2.6-7.2) Calcium Level 7.4 MG/DL (8.5-10.1) L Phosphorus Level 4.5 MG/DL (2.5-4.9) Magnesium Level 2.1 MG/DL (1.8-2.4) Ferritin 485 NG/ML (8-388) H Total Bilirubin 0.3 MG/DL (0.2-1.0) Aspartate Amino Transf (AST/SGOT) 54 U/L (15-37) H Alanine Aminotransferase (ALT/SGPT) 16 U/L (12-78) Alkaline Phosphatase 94 U/L (46-116) C-Reactive Protein, Quantitative 9.1 mg/dL (0.00-0.90) H Total Protein 5.0 G/DL (6.4-8.2) L Albumin 0.7 G/DL (3.4-5.0) L Globulin 4.3 g/dL Albumin/Globulin Ratio 0.2 (1.0-2.7) L Iron Level Pending Unsaturated Iron Binding Pending Plan Problems: (1) Decubitus skin ulcer Assessment & Plan: Pt presented on admission with large sacral wound. Base of wound with areas that area purple and indurated sacrococcygeal,L sacrum/L gluteus,Scattered wounds with maceration L gluteus, one wound R sacrum with Biofilm, Surrounding non-blanching erythema entire buttocks. Small dry scabbed area noted to lumbar area. Unstageable Pressure Injury L heel. Base of wound is necrotic with surrounding non-blanching erythema. Tx.plan: Apply Moisture Barrier Paste to Buttocks. Cover Sacrum, R and L gluteal cheeks with Optifoam drsgs. Change every 3 days and prn. Apply Betadine to L heel. Cover with Optifoam drsg. Change every 3 days and prn. Reposition at least every 2hours or as tolerated. Place Pillow between knees. Off-load heels with Pillow. APM/BRUNILDA Mattress overlay. DAILY ESTIMATED NEEDS: Needs based on wt loss, underweight, wound/ 59kg 30-35 kcals/kg 7701-0010 total kcals 1.25-2 g protein/kg 74-118 g total protein 25-30 mL/kg 3358-7207 total fluid mLs NUTRITION DIAGNOSIS: * Increased kcal/prot intake needs R/T wound healing, suspected recent significant wt loss as evidenced by admitted w/ wounds @ lt posterior heel, R lower back, sacrum as per photos, pending eval, suspected significant wt loss of 40lbs/ 23.7% in <5 months, currently @ 81% IBW. . * Swallowing difficulty R/T dysphagia, h/o CVA as evidenced by PEG dependent. CURRENT TF:Glucerna 1.2 @65ml/hr x24 hrs ENTERAL NUTRITION RECOMMENDATIONS: NEPRO @45ml/hr x24 hrs to provide 1080ml, 1944 kcal, 87g pro, 785ml free H2O - Rec TF change for lower K content (1145mg in Nepro @45 vs 3151mg in Glucerna 1.2 @65) - Start at 25ml/hr advance as tolerated 10ml/hr q4-6 hrs - HOB over 30 degrees - Increased H20 flush to 200ml q4 hrs ADDITIONAL RECOMMENDATIONS: 1) Calibrated bedscale wt -> per SNF: HT=59" and GE=[id number] (10/20/19) 2) Wound healing: Add Vit C 500mg QD/ or dosing per nephro Add Osbaldo BID via PEG w/ TF order 3) Monitor lytes: monitor K trend, need for renal TF (K 5.3, 5.5) 4) NISS w/ TF (h/o DM) 5) Monitor for diarrhea, rec probiotics (2) Sepsis Assessment & Plan: 74-year-old male multi-medical comorbidities admitted for respiratory deficiency currently tachypneic, leukocytosis, malnutrition, hypoalbuminemia. Complete physical exam performed identified areas of concerned given patient's comorbidities current condition high risk for deteriorationNo active infection identified from patient's wounds and likely respiratory nature. Chest x-ray reviewed. No acute surgical intervention planned at this time Preventive measures IV antibiotics per infectious disease Okay for feeding once stable respiratory Appreciate Pulm input c diff positive on vanco blood cx noted worsening leukocytosis ID abx noted heme input noted There are increasing basilar opacities on the left noted. The heart size is normal. The pleural spaces are clear. Impression: New/increased infiltrates at the left lateral lung base We will follow with recommendations thank you for let me participate patient's care worsening in ICU now on pressors intubated febrile prognosis guarded ill appearing still weaning slowly (3) Left carotid artery occlusion (4) Left middle cerebral artery stroke (5) DM (diabetes mellitus) (6) ARF (acute renal failure) (7) Ventricular tachyarrhythmia (8) Aspiration pneumonia (9) Hypertension (10) UTI (urinary tract infection) (11) Anemia (12) Respiratory failure with hypoxia (13) Suspected COVID-19 virus infection Assessment & Plan: ++++ Elfego Payne Dec 03, 2019 16:48
[2019-12-03 16:59] LABS: % IRON SATURATION 22 % (15-50); IRON 16 ug/dL (50-175); TOTAL IRON BINDING CAPACITY 72 ug/dL (250-450)
[2019-12-03] MEDS: Dyna-Hex 2% Top Sol 2oz TOPIC SCH (20:18)
[2019-12-04] VITALS (40 sets, daily range): BP systolic 87–160; BP diastolic 42–99
[2019-12-04] MEDS: Metoclopramide 10mg/2ml Inj IVP SCH ×4 (05:00→23:57)
[2019-12-04] MEDS: Midodrine 10mg tab GT SCH ×3 (05:00→21:57)
[2019-12-04 05:55] LABS: HEMATOCRIT 24.5 % (42.0-52.0); HEMOGLOBIN 7.5 G/DL (14.2-18.0); MEAN CORPUSCULAR VOLUME 92 FL (80-99); PLATELET COUNT 191 K/UL (150-450); RED BLOOD COUNT 2.67 M/UL (4.70-6.10); RED CELL DISTRIBUTION WIDTH 16.2 % (11.6-14.8); WHITE BLOOD COUNT 11.5 K/UL (4.8-10.8)
[2019-12-04 06:17] LABS: ANION GAP 11 mmol/L (5-15); BLOOD UREA NITROGEN 79 mg/dL (7-18); CALCIUM 7.4 MG/DL (8.5-10.1); CARBON DIOXIDE 19 MMOL/L (21-32); CHLORIDE 117 MMOL/L (98-107); POTASSIUM 3.5 MMOL/L (3.5-5.1); SODIUM 147 MMOL/L (136-145)
--- NOTE | 2019-12-04 06:32 | Hematology/Onc Progress Note ---
Assessment/Plan Assessment/Plan Assessment and Recs # Leukocytosis/elevated white blood cell count, unspecified likely related to underlying stress reaction, smoking v more likely infection, in this case with pna and COVID19++++++++ --> have reviewed peripheral smear and bandemia/neutrophilia noted --> continue antibiotics if they have been started by ID team --> monitor for resolution --> wbc 35k-->31.2-->25-->27.4 -->25-->20.7-->18.6 -->27-->19.7 -->20->20->18.2- ->15.7 -->14-->12.7-->11 --> abx/antivral: remdesivir/vanc/cefepime-->vanc/flagyl/monique-->linezolid/monique-- >cefepime/zyvox/vanc ->vanc/cefepime --> 11/28 cxr: Slight increased alveolar infiltrates. --> 11/30 cxr: No significant change bilateral infiltrates and right effusion. # Thrombocytosis - if plt count >400k, most usually is a reactive process and will improve once exacerbant removed as well --> in this case due to underlying infection --> plt trend 646k-->672 -->547-->372-->345-->149 -->246-->232-->197-->220 --> smear is noted # Anemia of chronic disease due to underlying chronic medical issues, multifactorial v Gi bleed --> Anemia workup has been ordered, rule out gi bleed -> ferritin 1339 --> No evidence of hemolysis is noted, peripheral smear has been reviewed. --> Hgb goal >7. Transfuse prn. --> Epogen or iron at this time is not particularly indicated --> Medications have been reviewed --> low threshold for gi evaluation in case has occult + --> bone marrow biopsy is not indicated given the other more likely causes --> hgb 9.5-->9.8->8.8-->8.6-->7.5-->9.5-->7.5 -->9.1-->8-->7.6-->7-->9.2-->8.2- ->8.7-->7.5 --> 1 unit prbc 11/20; 11/28 --> ddimer remains elevated currently # Acute hypoxic resp failure- 2ry to COVID19 --> vent+ --> per id and pulm recs --> breathing treatments and rep cxr --> 11/15 cxr: New/increased infiltrates at the left lateral lung base # UTI c/w bacteremia --> abx per id # Cdiff colitis --> abx # MONICA, improving # Deep tissue injury (sacrum, L heel) # HTN # Dm2 # MDD # Dysphagia s/p GT # malnutrition # decubitus ulcer # non verbal # L MCA CVA 2ry to occlusion L ICA # [place] resident ([facility]) # Dvt ppx heparin sq The timing of this note does not necessarily reflect the time of the patient was seen. Greatly appreciate consultation. Subjective Allergies: Coded Allergies: No Known Allergies (Unverified , 09/16/19) All Systems: reviewed and negative except above Subjective 11/15 tele, no acute events, cxr and labs reviewed, nrb 15l, remdesivir 11/16 remains on iso, breathing is improved, no night sweats 11/17 remains with fever, cooling blankets, labs noted, no bleed hgb 8.8 11/19 icu, no acute events, vent, levo gtt, meds and labs reviewed 11/20 labs noted, no bleeding, in icu, hgb 7.5, to get one unit prbc, wbc elev 25 11/21 non verbal, s/p blood, hgb improved to 9.5, vent, iv abx 11/22 icu, no new changes, labs reviewed, levo gtt 11/23 labs are noted, no bleeding, in icu, on levo, wbc 27, hgb 9 11/24 nonverbal, no new changes, afebrile 11/26 nonverbal, in icu, on vent, wbc 20, hgb 8, no bleeding 11/[address], vent, lavonne as well, labs reviewed 11/28 nonverbal, icu, hbg 7, iv abx, 11/29 s/p 1 unit blood, hgb improved to 9.2, cxr reviewed 11/30 labs are noted, hgb is stable, nonverbal, on vent 12/01 icu, cxr reviewed, hgb 8.7, cefepime, vent 12/03 comatose, no bleeding, meds noted, hgb 7.5, no bleeding, with gtube feeds Objective Objective Current Medications Medications (Trade) Dose Ordered Sig/Leonor Route PRN Reason Start Time Stop Time Status Last Admin Dose Admin Acetaminophen (Tylenol) 650 mg Q4H PRN GT fever 11/18/19 03:00 12/11/19 02:59 11/28/19 05:07 Allopurinol (allopurinoL) 300 mg DAILY GT 11/21/19 09:00 12/21/19 08:59 12/03/19 08:52 Chlorhexidine Gluconate (Danielle-Hex 2%) 1 applic DAILY@2000 TOPIC 11/18/19 20:00 02/16/20 19:59 12/03/19 20:18 Dextrose/Sodium Chloride 1,000 ml @ 50 mls/hr Q20H IV 11/22/19 10:15 12/20/19 10:14 12/03/19 22:00 Epoetin Marek (Procrit (for non ESRD use)) 10,000 units THU-THU-THU SUBQ 12/05/19 21:00 03/04/20 20:59 Fidaxomicin (Dificid) 200 mg EVERY 12 HOURS ORAL 11/30/19 21:00 12/07/19 20:59 12/03/19 20:41 Heparin Sodium (Porcine) (Heparin 5000 units/ml) 5,000 units EVERY 12 HOURS SUBQ 11/18/19 09:00 12/26/19 08:59 12/03/19 20:19 Metoclopramide HCl (Reglan) 5 mg Q6HR IVP 12/01/19 12:00 12/31/19 11:59 12/04/19 05:00 Midodrine (Pro-Amatine) 10 mg Q8HR GT 12/03/19 14:00 02/20/20 13:59 12/04/19 05:00 Norepinephrine Bitartrate 8 mg/ Dextrose 558 ml @ 0 mls/hr Q24H IV 11/18/19 10:00 12/18/19 09:59 11/23/19 22:22 Ondansetron HCl (Zofran) 4 mg Q6H PRN IVP Nausea & Vomiting 11/18/19 03:00 12/11/19 08:59 Sevelamer Carbonate (Renvela) 800 mg Q12HR GT 11/29/19 21:00 02/20/20 07:59 12/03/19 20:18 Last 24 Hour Vital Signs Date Time Temp Pulse Resp B/P (MAP) Pulse Ox O2 Delivery O2 Flow Rate FiO2 12/04/19 06:00 77 20 100/45 (63) 100 12/04/19 05:00 76 21 96/46 (63) 100 12/04/19 04:00 30 12/04/19 04:00 Mechanical Ventilator 12/04/19 04:00 97.0 74 20 99/45 (63) 100 12/04/19 04:00 71 12/04/19 03:00 78 21 93/44 (60) 100 12/04/19 02:53 87 22 30 12/04/19 02:00 81 21 99/43 (61) 99 12/04/19 01:00 82 19 100/46 (64) 99 12/04/19 00:00 97.0 73 23 100/63 (75) 100 12/04/19 00:00 Mechanical Ventilator 12/03/19 23:00 81 21 118/51 (73) 99 12/03/19 22:45 84 20 30 12/03/19 22:00 77 20 115/51 (72) 99 12/03/19 21:00 81 20 119/60 (79) 99 12/03/19 20:00 30 12/03/19 20:00 Mechanical Ventilator 12/03/19 20:00 81 12/03/19 20:00 97.5 81 20 115/49 (71) 97 12/03/19 19:53 88 21 30 12/03/19 19:00 81 20 111/50 (70) 97 12/03/19 18:00 80 21 114/57 (76) 99 12/03/19 17:00 82 20 121/57 (78) 99 12/03/19 16:00 85 12/03/19 16:00 Mechanical Ventilator 12/03/19 16:00 30 12/03/19 16:00 97.7 82 20 118/60 (79) 99 12/03/19 15:01 84 20 30 12/03/19 15:00 84 20 117/56 (76) 99 12/03/19 14:00 85 20 126/61 (82) 99 12/03/19 13:00 83 20 125/56 (79) 99 12/03/19 12:00 97.4 12/03/19 12:00 Mechanical Ventilator 12/03/19 12:00 30 12/03/19 12:00 82 20 124/57 (79) 99 12/03/19 12:00 82 12/03/19 11:00 82 20 130/55 (80) 99 12/03/19 10:43 82 20 30 12/03/19 10:00 81 20 98 12/03/19 10:00 80 20 120/58 (78) 99 12/03/19 09:30 80 20 142/59 (86) 99 12/03/19 09:00 82 20 128/61 (83) 99 12/03/19 08:30 80 20 118/57 (77) 99 12/03/19 08:00 97.4 82 20 124/61 (82) 99 12/03/19 08:00 79 12/03/19 08:00 30 12/03/19 08:00 Mechanical Ventilator 12/03/19 07:30 81 20 120/58 (78) 99 12/03/19 07:00 83 20 120/58 (78) 99 12/03/19 07:00 100 12/03/19 07:00 76 20 30 12/03/19 06:00 86 20 105/52 (69) 98 12/03/19 05:00 85 20 100/49 (66) 97 12/03/19 04:00 83 12/03/19 04:00 Mechanical Ventilator 12/03/19 04:00 30 12/03/19 04:00 99.2 101 18 99/51 (67) 97 12/03/19 03:28 106 20 30 12/03/19 03:00 99 21 116/45 (68) 94 12/03/19 02:00 109 21 109/53 (71) 94 12/03/19 01:00 95 21 116/62 (80) 94 12/03/19 00:00 Mechanical Ventilator 12/03/19 00:00 30 12/03/19 00:00 99.0 103 21 107/54 (71) 94 12/03/19 00:00 100 12/02/19 23:26 103 21 30 12/02/19 23:00 103 21 118/60 (79) 95 12/02/19 22:00 93 20 116/54 (74) 97 12/02/19 21:00 90 21 117/59 (78) 97 12/02/19 20:00 87 20 127/57 (80) 100 12/02/19 20:00 90 12/02/19 20:00 Mechanical Ventilator 12/02/19 19:57 80 23 30 12/02/19 19:00 86 19 97/50 (66) 98 12/02/19 18:00 85 20 114/53 (73) 98 12/02/19 17:30 81 20 115/51 (72) 98 12/02/19 17:00 82 20 109/50 (69) 98 12/02/19 16:00 98.8 83 20 118/51 (73) 99 12/02/19 16:00 30 12/02/19 16:00 80 12/02/19 16:00 Mechanical Ventilator 12/02/19 15:30 82 20 115/53 (73) 99 12/02/19 15:24 83 20 30 12/02/19 15:00 80 20 116/53 (74) 99 12/02/19 14:00 84 20 114/54 (74) 99 12/02/19 13:30 85 20 115/54 (74) 99 12/02/19 13:00 81 20 111/58 (75) 99 12/02/19 12:30 91 20 118/55 (76) 98 12/02/19 12:00 99.0 102 21 124/61 (82) 96 12/02/19 12:00 Mechanical Ventilator 12/02/19 12:00 30 12/02/19 12:00 80 12/02/19 11:08 79 20 30 12/02/19 11:00 83 20 122/53 (76) 98 12/02/19 10:00 82 20 136/55 (82) 98 12/02/19 09:30 80 20 116/53 (74) 99 12/02/19 09:00 82 20 112/53 (72) 99 12/02/19 08:30 81 20 122/56 (78) 99 12/02/19 08:00 80 12/02/19 08:00 30 12/02/19 08:00 99.3 79 20 131/53 (79) 100 12/02/19 08:00 Mechanical Ventilator 12/02/19 07:46 78 20 30 12/02/19 07:00 84 20 126/53 (77) 99 Intake and Output 12/03/19 12/04/19 19:00 07:00 Intake Total 1030 ml 890 ml Output Total 545 ml 270 ml Balance 485 ml 620 ml IV Total 600 ml 450 ml Tube Feeding 400 ml 440 ml Other 30 ml Output Urine Total 345 ml 270 ml Stool Total 200 ml Labs Test 12/01/19 07:19 12/02/19 04:00 12/03/19 04:30 12/03/19 15:10 Arterial Blood pH 7.304 (7.350-7.450) Arterial Blood Partial Pressure CO2 39.2 mmHg (35.0-45.0) Arterial Blood Partial Pressure O2 78.3 mmHg (75.0-100.0) Arterial Blood HCO3 19.0 mmol/L (22.0-26.0) Arterial Blood Oxygen Saturation 94.5 % (95-100) Arterial Blood Base Excess -6.8 (-2-2) Michael Test Positive White Blood Count 12.7 K/UL (4.8-10.8) 11.6 K/UL (4.8-10.8) Red Blood Count 2.90 M/UL (4.70-6.10) 2.78 M/UL (4.70-6.10) Hemoglobin 8.2 G/DL (14.2-18.0) 7.9 G/DL (14.2-18.0) Hematocrit 27.1 % (42.0-52.0) 25.7 % (42.0-52.0) Mean Corpuscular Volume 94 FL (80-99) 92 FL (80-99) Mean Corpuscular Hemoglobin 28.2 PG (27.0-31.0) 28.4 PG (27.0-31.0) Mean Corpuscular Hemoglobin Concent 30.2 G/DL (32.0-36.0) 30.8 G/DL (32.0-36.0) Red Cell Distribution Width 16.8 % (11.6-14.8) 16.4 % (11.6-14.8) Platelet Count 220 K/UL (150-450) 208 K/UL (150-450) Mean Platelet Volume 7.0 FL (6.5-10.1) 6.7 FL (6.5-10.1) Neutrophils (%) (Auto) % (45.0-75.0) % (45.0-75.0) Lymphocytes (%) (Auto) % (20.0-45.0) % (20.0-45.0) Monocytes (%) (Auto) % (1.0-10.0) % (1.0-10.0) Eosinophils (%) (Auto) % (0.0-3.0) % (0.0-3.0) Basophils (%) (Auto) % (0.0-2.0) % (0.0-2.0) Sodium Level 145 MMOL/L (136-145) 145 MMOL/L (136-145) Potassium Level 3.7 MMOL/L (3.5-5.1) 3.5 MMOL/L (3.5-5.1) Chloride Level 113 MMOL/L (98-107) 114 MMOL/L (98-107) Carbon Dioxide Level 21 MMOL/L (21-32) 20 MMOL/L (21-32) Anion Gap 11 mmol/L (5-15) 11 mmol/L (5-15) Blood Urea Nitrogen 69 mg/dL (7-18) 71 mg/dL (7-18) Creatinine 2.9 MG/DL (0.55-1.30) 2.9 MG/DL (0.55-1.30) Estimat Glomerular Filtration Rate 21.5 mL/min (>60) 21.5 mL/min (>60) Glucose Level 111 MG/DL (74-106) 111 MG/DL (74-106) Calcium Level 7.7 MG/DL (8.5-10.1) 7.4 MG/DL (8.5-10.1) Phosphorus Level 4.4 MG/DL (2.5-4.9) 4.5 MG/DL (2.5-4.9) Magnesium Level 2.1 MG/DL (1.8-2.4) 2.1 MG/DL (1.8-2.4) Total Bilirubin 0.2 MG/DL (0.2-1.0) 0.3 MG/DL (0.2-1.0) Direct Bilirubin < 0.1 MG/DL (0.0-0.3) Aspartate Amino Transf (AST/SGOT) 49 U/L (15-37) 54 U/L (15-37) Alanine Aminotransferase (ALT/SGPT) 12 U/L (12-78) 16 U/L (12-78) Alkaline Phosphatase 88 U/L (46-116) 94 U/L (46-116) Total Protein 4.6 G/DL (6.4-8.2) 5.0 G/DL (6.4-8.2) Albumin 0.8 G/DL (3.4-5.0) 0.7 G/DL (3.4-5.0) Differential Total Cells Counted 100 Neutrophils % (Manual) 81 % (45-75) Lymphocytes % (Manual) 12 % (20-45) Monocytes % (Manual) 6 % (1-10) Eosinophils % (Manual) 0 % (0-3) Basophils % (Manual) 1 % (0-2) Band Neutrophils 0 % (0-8) Platelet Estimate Adequate Platelet Morphology Normal Hypochromasia 3+ Anisocytosis 1+ Uric Acid 5.6 MG/DL (2.6-7.2) Ferritin 485 NG/ML (8-388) C-Reactive Protein, Quantitative 9.1 mg/dL (0.00-0.90) Globulin 4.3 g/dL Albumin/Globulin Ratio 0.2 (1.0-2.7) Iron Level 16 ug/dL (50-175) Total Iron Binding Capacity 72 ug/dL (250-450) Percent Iron Saturation 22 % (15-50) Unsaturated Iron Binding 56 ug/dL (112-346) Test 12/04/19 04:00 White Blood Count 11.5 K/UL (4.8-10.8) Red Blood Count 2.67 M/UL (4.70-6.10) Hemoglobin 7.5 G/DL (14.2-18.0) Hematocrit 24.5 % (42.0-52.0) Mean Corpuscular Volume 92 FL (80-99) Mean Corpuscular Hemoglobin 28.2 PG (27.0-31.0) Mean Corpuscular Hemoglobin Concent 30.6 G/DL (32.0-36.0) Red Cell Distribution Width 16.2 % (11.6-14.8) Platelet Count 191 K/UL (150-450) Mean Platelet Volume 6.5 FL (6.5-10.1) Neutrophils (%) (Auto) % (45.0-75.0) Lymphocytes (%) (Auto) % (20.0-45.0) Monocytes (%) (Auto) % (1.0-10.0) Eosinophils (%) (Auto) % (0.0-3.0) Basophils (%) (Auto) % (0.0-2.0) Sodium Level 147 MMOL/L (136-145) Potassium Level 3.5 MMOL/L (3.5-5.1) Chloride Level 117 MMOL/L (98-107) Carbon Dioxide Level 19 MMOL/L (21-32) Anion Gap 11 mmol/L (5-15) Blood Urea Nitrogen 79 mg/dL (7-18) Creatinine 3.0 MG/DL (0.55-1.30) Estimat Glomerular Filtration Rate 20.7 mL/min (>60) Glucose Level 110 MG/DL (74-106) Calcium Level 7.4 MG/DL (8.5-10.1) Height (Feet): 6 Height (Inches): 0.00 Weight (Pounds): 164 Objective PE General: alert, chronically Ill Heent: nc, at Neck: full range of motion, supple, no meningismus Respiratory: chest non-tender, decreased breath sounds, crackles, vent++ Cardiovascular: no murmur, tachycardia Gastrointestinal: normal bowel sounds, non tender,+peg Musculoskeletal: back normal, normal range of motion, gait/station normal Neurologic: no pronator Deng Flowers MD Dec 04, 2019 06:32
[2019-12-04 06:45] LABS: ALANINE AMINOTRANSFERASE 12 U/L (12-78); ALBUMIN 0.6 G/DL (3.4-5.0); ALKALINE PHOSPHATASE 93 U/L (46-116); ASPARTATE AMINO TRANSFERASE 40 U/L (15-37); BILIRUBIN,DIRECT < 0.1 MG/DL (0.0-0.3); BILIRUBIN,TOTAL 0.2 MG/DL (0.2-1.0); PHOSPHORUS 4.5 MG/DL (2.5-4.9)
[2019-12-04] MEDS ORDERED: D5NS 1000ml IV ONE (08:40)
[2019-12-04] MEDS: Heparin 5000 units/ml inj SUBQ SCH ×2 (09:00→20:35)
--- NOTE | 2019-12-04 09:44 | General Progress Note ---
Assessment/Plan Problem List: (1) DM (diabetes mellitus) ICD Codes: E11.9 - Type 2 diabetes mellitus without complications SNOMED: 52986596 (2) ARF (acute renal failure) ICD Codes: N17.9 - Acute kidney failure, unspecified SNOMED: 28390344 Qualifiers: Qualified Codes: N17.9 - Acute kidney failure, unspecified (3) Aspiration pneumonia ICD Codes: J69.0 - Pneumonitis due to inhalation of food and vomit SNOMED: 225238438 (4) UTI (urinary tract infection) ICD Codes: N39.0 - Urinary tract infection, site not specified SNOMED: 05973406 Qualifiers: Qualified Codes: N30.00 - Acute cystitis without hematuria (5) Hypertension ICD Codes: I10 - Essential (primary) hypertension SNOMED: 47879460 (6) Anemia ICD Codes: D64.9 - Anemia, unspecified SNOMED: 782422962 Qualifiers: Qualified Codes: D64.9 - Anemia, unspecified (7) Respiratory failure with hypoxia ICD Codes: J96.91 - Respiratory failure, unspecified with hypoxia SNOMED: 12695365208027202 Qualifiers: Qualified Codes: J96.01 - Acute respiratory failure with hypoxia (8) Suspected COVID-19 virus infection ICD Codes: Z20.828 - Contact with and (suspected) exposure to other viral communicable diseases SNOMED: 526070698 Status: unchanged Assessment/Plan: vent abx pt diet cbc bmp am Subjective Constitutional: Reports: weakness Allergies: Coded Allergies: No Known Allergies (Unverified , 09/16/19) All Systems: reviewed and negative except above Subjective intubated sedated in icu Objective Last 24 Hour Vital Signs Date Time Temp Pulse Resp B/P (MAP) Pulse Ox O2 Delivery O2 Flow Rate FiO2 12/04/19 07:19 75 21 30 12/04/19 07:00 77 20 99/45 (63) 99 12/04/19 06:00 77 20 100/45 (63) 100 12/04/19 05:00 76 21 96/46 (63) 100 12/04/19 04:00 30 12/04/19 04:00 Mechanical Ventilator 12/04/19 04:00 97.0 74 20 99/45 (63) 100 12/04/19 04:00 71 12/04/19 03:00 78 21 93/44 (60) 100 12/04/19 02:53 87 22 30 12/04/19 02:00 81 21 99/43 (61) 99 12/04/19 01:00 82 19 100/46 (64) 99 12/04/19 00:00 97.0 73 23 100/63 (75) 100 12/04/19 00:00 Mechanical Ventilator 12/03/19 23:00 81 21 118/51 (73) 99 12/03/19 22:45 84 20 30 12/03/19 22:00 77 20 115/51 (72) 99 12/03/19 21:00 81 20 119/60 (79) 99 12/03/19 20:00 30 12/03/19 20:00 Mechanical Ventilator 12/03/19 20:00 81 12/03/19 20:00 97.5 81 20 115/49 (71) 97 12/03/19 19:53 88 21 30 12/03/19 19:00 81 20 111/50 (70) 97 12/03/19 18:00 80 21 114/57 (76) 99 12/03/19 17:00 82 20 121/57 (78) 99 12/03/19 16:00 85 12/03/19 16:00 Mechanical Ventilator 12/03/19 16:00 30 12/03/19 16:00 97.7 82 20 118/60 (79) 99 12/03/19 15:01 84 20 30 12/03/19 15:00 84 20 117/56 (76) 99 12/03/19 14:00 85 20 126/61 (82) 99 12/03/19 13:00 83 20 125/56 (79) 99 12/03/19 12:00 97.4 12/03/19 12:00 Mechanical Ventilator 12/03/19 12:00 30 12/03/19 12:00 82 20 124/57 (79) 99 12/03/19 12:00 82 12/03/19 11:00 82 20 130/55 (80) 99 12/03/19 10:43 82 20 30 12/03/19 10:00 81 20 98 12/03/19 10:00 80 20 120/58 (78) 99 Intake and Output 12/03/19 12/04/19 19:00 07:00 Intake Total 1030 ml 980 ml Output Total 545 ml 295 ml Balance 485 ml 685 ml IV Total 600 ml 500 ml Tube Feeding 400 ml 480 ml Other 30 ml Output Urine Total 345 ml 295 ml Stool Total 200 ml Laboratory Tests 12/03/19 15:10: Iron Level 16L, Total Iron Binding Capacity 72L, Percent Iron Saturation 22, Unsaturated Iron Binding 56L 12/04/19 04:00: White Blood Count 11.5H, Red Blood Count 2.67L, Hemoglobin 7.5L, Hematocrit 24.5L, Mean Corpuscular Volume 92, Mean Corpuscular Hemoglobin 28.2, Mean Corpuscular Hemoglobin Concent 30.6L, Red Cell Distribution Width 16.2H, Platelet Count 191, Mean Platelet Volume 6.5, Neutrophils (%) (Auto) , Lymphocytes (%) (Auto) , Monocytes (%) (Auto) , Eosinophils (%) (Auto) , Basophils (%) (Auto) , Differential Total Cells Counted 100, Neutrophils % ( Manual) 84H, Lymphocytes % (Manual) 13L, Monocytes % (Manual) 3, Eosinophils % ( Manual) 0, Basophils % (Manual) 0, Band Neutrophils 0, Platelet Estimate Adequate, Platelet Morphology Normal, Hypochromasia 1+, Anisocytosis 1+, Sodium Level 147H, Potassium Level 3.5, Chloride Level 117H, Carbon Dioxide Level 19L, Anion Gap 11, Blood Urea Nitrogen 79H, Creatinine 3.0H, Estimat Glomerular Filtration Rate 20.7, Glucose Level 110H, Calcium Level 7.4L, Phosphorus Level 4.5, Magnesium Level 2.1, Total Bilirubin 0.2, Direct Bilirubin < 0.1, Aspartate Amino Transf (AST/SGOT) 40H, Alanine Aminotransferase (ALT/SGPT) 12, Alkaline Phosphatase 93, Total Protein 5.0L, Albumin 0.6L Height (Feet): 6 Height (Inches): 0.00 Weight (Pounds): 164 EENT: normal ENT inspection Neck: normal alignment Cardiovascular: normal rate, regular rhythm Respiratory/Chest: no respiratory distress, no accessory muscle use Extremities: normal inspection Skin: normal pigmentation Juan Singh DO Dec 04, 2019 09:44
[2019-12-04] MEDS: Renvela 800mg Pkt GT SCH ×2 (09:48→20:34)
[2019-12-04] MEDS: Norepinephrine Bitartrate 8 MG in D5W 500ml 550 ML IV SCH (09:49)
[2019-12-04] MEDS ORDERED: Digoxin 0.5mg/2ml Inj IVP SCH (11:00)
--- NOTE | 2019-12-04 11:12 | Nephrology Progress Note ---
Assessment/Plan Problem List: (1) ARF (acute renal failure) (2) Hyperkalemia (3) DM (diabetes mellitus) (4) Suspected COVID-19 virus infection (5) Sepsis (6) Severe malnutrition Assessment: Severe hypoalbuminemia Assessment his 74-year-old male with multiple Multiple medical problem presents with respiratory symptoms and diarrhea Renal failure most likely prerenal azotemia secondary to dehydration Hyperkalemia on presentation also secondary to dehydration Sepsis pneumonia hypoxia UTI Anemia History of hypertension History of diabetes mellitus Suspected COVID-19 virus infection Hypoalbuminemia Plan C. difficile positive COVID-19 detected December 03: Serum creatinine 3. Hemoglobin lower. On low-dose pressors today. Continue to monitor renal parameters. If needed dialysis. Trial of albumin 25% . December 02: Serum creatinine remains at 2.9. Anemia worsened. Iron panel ferritin ordered. 1 dose of Venofer 200 mg ordered. Subcutaneous Epogen started. Continues to be full code intubated on ventilator. No need for dialysis treatment at this time since serum creatinine appears to be stable. December 01: Serum creatinine gaudencio to 2.9. Continue to monitor renal parameters, urine output, and avoid nephrotoxic's as possible. November 30: Serum creatinine remains stable. Will discontinue calcium supplements. Continue per current treatment plan. No dialysis needed. November 29: Serum creatinine stable. Off pressors. No dialysis needed today. Discussed with JUSTINO Hernandez. Continue per consultants. November 28: Serum creatinine unchanged. Off pressors. Potassium supplement intravenously ordered. Discussed with JUSTINO Evans. No need for dialysis today. Continue to monitor renal parameters. Change midodrine from PRN to scheduled every 8 hours. November 27: Labs reviewed. No dialysis today. Discussed with RN. Potassium supplement given. Continue to monitor renal parameters. Continue per consultants. November 26: Lab reviewed. Remains full code. Remains intubated. Midodrin changed to PRN. Electrolytes acceptable. Will monitor renal parameters and urine output and dialyze as needed. November 25: Dialyzed yesterday. Lab reviewed. Remains full code. Remains intubated on ventilator. On minimal dose of pressors. 20 mEq potassium chloride IV ordered for low potassium level. November 24: Patient remains intubated. Due for dialysis today. Labs reviewed. Continues to be full code. November 23: Patient was dialyzed yesterday. Labs reviewed. Status quo. Remains full code. Will arrange for dialysis tomorrow. November 22: Patient in ICU. Intubated on ventilator. On low-dose pressors. Urine output labile. Serum creatinine rising. Patient developing acute renal failure. Need urgent dialysis treatment. Will arrange for placement of non- tunneled dialysis catheter as soon as possible. RN states that no family member or next of kin could be contacted at this time. Due to the urgency of the problem and the patient being full code will proceed with placement of dialysis catheter and dialysis treatment as soon as possible. November 21: Patient continues to do poorly. Discussed with RN. Started on Midodrin for BP support. Nephro feeding started. Phosphorus binders started. IV calcium ordered. Continue to monitor renal parameters and urine output. Continue per consultants. Patient remains full code. Per orders. November 20: Serum creatinine continuing to rise. Remains of 100 cc an hour IV fluid. Urine output remains low. Blood pressure also borderline low, on pressors. Continue per consultants. Continue to monitor renal parameters and urine output. Continue to avoid nephrotoxic's. Further deterioration of renal function may lead to dialysis treatment. Will discuss with PMD. November 19: Serum creatinine rising. Urine output decreasing. Will change to IV, D5 normal saline. Will give albumin bolus followed by Lasix 40 mg IV push. Continue to monitor renal parameters and urine output. Continue to avoid nephrotoxic medications as possible. Today's vancomycin level was 22. November 18: Serum creatinine rising. Continues to be full code. Continues to be intubated on ventilator. Remains on IV fluids. Vancomycin levels per pharmacy. Prognosis poor due to sepsis. November 17: Intubated on ventilator in ICU. Will continue half-normal saline 100 cc an hour. Continue per pulmonary and ID. Prognosis poor. Continue to monitor renal parameters. Hydrate with half-normal saline, serum creatinine now at its lowest today. monitor electrolytes Will change the feeding to Nepro and monitor her potassium and other electrolytes Continue per ID Keep the blood pressure and blood sugar in check Monitor renal parameters Previously: Urine studies Monitor intake and output Cultures including stool for C. difficile Per orders Patient's CODE STATUS is full Subjective ROS Limited/Unobtainable: Yes Objective Objective Last 24 Hour Vital Signs Date Time Temp Pulse Resp B/P (MAP) Pulse Ox O2 Delivery O2 Flow Rate FiO2 12/04/19 09:49 59/42 12/04/19 07:19 75 21 30 12/04/19 07:00 77 20 99/45 (63) 99 12/04/19 06:00 77 20 100/45 (63) 100 12/04/19 05:00 76 21 96/46 (63) 100 12/04/19 04:00 30 12/04/19 04:00 Mechanical Ventilator 12/04/19 04:00 97.0 74 20 99/45 (63) 100 12/04/19 04:00 71 12/04/19 03:00 78 21 93/44 (60) 100 12/04/19 02:53 87 22 30 12/04/19 02:00 81 21 99/43 (61) 99 12/04/19 01:00 82 19 100/46 (64) 99 12/04/19 00:00 97.0 73 23 100/63 (75) 100 12/04/19 00:00 Mechanical Ventilator 12/03/19 23:00 81 21 118/51 (73) 99 12/03/19 22:45 84 20 30 12/03/19 22:00 77 20 115/51 (72) 99 12/03/19 21:00 81 20 119/60 (79) 99 12/03/19 20:00 30 12/03/19 20:00 Mechanical Ventilator 12/03/19 20:00 81 12/03/19 20:00 97.5 81 20 115/49 (71) 97 12/03/19 19:53 88 21 30 12/03/19 19:00 81 20 111/50 (70) 97 12/03/19 18:00 80 21 114/57 (76) 99 12/03/19 17:00 82 20 121/57 (78) 99 12/03/19 16:00 85 12/03/19 16:00 Mechanical Ventilator 12/03/19 16:00 30 12/03/19 16:00 97.7 82 20 118/60 (79) 99 12/03/19 15:01 84 20 30 12/03/19 15:00 84 20 117/56 (76) 99 12/03/19 14:00 85 20 126/61 (82) 99 12/03/19 13:00 83 20 125/56 (79) 99 12/03/19 12:00 97.4 12/03/19 12:00 Mechanical Ventilator 12/03/19 12:00 30 12/03/19 12:00 82 20 124/57 (79) 99 12/03/19 12:00 82 Intake and Output 12/03/19 12/04/19 19:00 07:00 Intake Total 1030 ml 980 ml Output Total 545 ml 295 ml Balance 485 ml 685 ml IV Total 600 ml 500 ml Tube Feeding 400 ml 480 ml Other 30 ml Output Urine Total 345 ml 295 ml Stool Total 200 ml Laboratory Tests 12/03/19 15:10: Iron Level 16L, Total Iron Binding Capacity 72L, Percent Iron Saturation 22, Unsaturated Iron Binding 56L 12/04/19 04:00: White Blood Count 11.5H, Red Blood Count 2.67L, Hemoglobin 7.5L, Hematocrit 24.5L, Mean Corpuscular Volume 92, Mean Corpuscular Hemoglobin 28.2, Mean Corpuscular Hemoglobin Concent 30.6L, Red Cell Distribution Width 16.2H, Platelet Count 191, Mean Platelet Volume 6.5, Neutrophils (%) (Auto) , Lymphocytes (%) (Auto) , Monocytes (%) (Auto) , Eosinophils (%) (Auto) , Basophils (%) (Auto) , Differential Total Cells Counted 100, Neutrophils % ( Manual) 84H, Lymphocytes % (Manual) 13L, Monocytes % (Manual) 3, Eosinophils % ( Manual) 0, Basophils % (Manual) 0, Band Neutrophils 0, Platelet Estimate Adequate, Platelet Morphology Normal, Hypochromasia 1+, Anisocytosis 1+, Sodium Level 147H, Potassium Level 3.5, Chloride Level 117H, Carbon Dioxide Level 19L, Anion Gap 11, Blood Urea Nitrogen 79H, Creatinine 3.0H, Estimat Glomerular Filtration Rate 20.7, Glucose Level 110H, Calcium Level 7.4L, Phosphorus Level 4.5, Magnesium Level 2.1, Total Bilirubin 0.2, Direct Bilirubin < 0.1, Aspartate Amino Transf (AST/SGOT) 40H, Alanine Aminotransferase (ALT/SGPT) 12, Alkaline Phosphatase 93, Total Protein 5.0L, Albumin 0.6L Height (Feet): 6 Height (Inches): 0.00 Weight (Pounds): 164 General Appearance: no apparent distress EENT: other - Intubated on ventilator Cardiovascular: normal rate Respiratory/Chest: decreased breath sounds Abdomen: soft, other - PEG in place Objective No other change Fouladian,Ricardo MD Dec 04, 2019 11:12
--- NOTE | 2019-12-04 15:11 | Surgery Progress Note ---
Surgery Progress Note Subjective Additional Comments hypotensive on pressors labs noted ill appearing prognosis guarded Objective Last 24 Hour Vital Signs Date Time Temp Pulse Resp B/P (MAP) Pulse Ox O2 Delivery O2 Flow Rate FiO2 12/04/19 14:30 99 20 159/81 (107) 99 12/04/19 14:00 101 20 160/99 (119) 99 12/04/19 13:30 101 20 155/78 (103) 99 12/04/19 13:00 103 20 140/79 (99) 99 12/04/19 12:45 106 12/04/19 12:30 129 20 109/78 (88) 98 12/04/19 12:07 130 12/04/19 12:00 96.8 138 20 92/66 (75) 97 12/04/19 12:00 146 12/04/19 12:00 Mechanical Ventilator 12/04/19 12:00 30 12/04/19 11:30 135 20 100/66 (77) 95 12/04/19 11:00 136 20 119/70 (86) 95 12/04/19 10:30 136 20 109/80 (90) 95 12/04/19 10:00 134 21 105/73 (84) 94 12/04/19 09:49 59/42 12/04/19 09:30 133 20 87/51 (63) 96 12/04/19 09:00 92 22 130/70 (90) 100 12/04/19 09:00 30 12/04/19 08:30 74 20 101/48 (65) 100 12/04/19 08:00 79 12/04/19 08:00 96.6 75 20 94/42 (59) 100 12/04/19 08:00 Mechanical Ventilator 12/04/19 07:30 75 20 88/44 (59) 100 12/04/19 07:19 75 21 30 12/04/19 07:00 77 20 99/45 (63) 99 12/04/19 06:00 77 20 100/45 (63) 100 12/04/19 05:00 76 21 96/46 (63) 100 12/04/19 04:00 30 12/04/19 04:00 Mechanical Ventilator 12/04/19 04:00 97.0 74 20 99/45 (63) 100 12/04/19 04:00 71 12/04/19 03:00 78 21 93/44 (60) 100 12/04/19 02:53 87 22 30 12/04/19 02:00 81 21 99/43 (61) 99 12/04/19 01:00 82 19 100/46 (64) 99 12/04/19 00:00 97.0 73 23 100/63 (75) 100 12/04/19 00:00 Mechanical Ventilator 12/03/19 23:00 81 21 118/51 (73) 99 12/03/19 22:45 84 20 30 12/03/19 22:00 77 20 115/51 (72) 99 12/03/19 21:00 81 20 119/60 (79) 99 12/03/19 20:00 30 12/03/19 20:00 Mechanical Ventilator 12/03/19 20:00 81 12/03/19 20:00 97.5 81 20 115/49 (71) 97 12/03/19 19:53 88 21 30 12/03/19 19:00 81 20 111/50 (70) 97 12/03/19 18:00 80 21 114/57 (76) 99 12/03/19 17:00 82 20 121/57 (78) 99 12/03/19 16:00 85 12/03/19 16:00 Mechanical Ventilator 12/03/19 16:00 30 12/03/19 16:00 97.7 82 20 118/60 (79) 99 I&O Intake and Output 12/03/19 12/04/19 19:00 07:00 Intake Total 1030 ml 980 ml Output Total 545 ml 295 ml Balance 485 ml 685 ml IV Total 600 ml 500 ml Tube Feeding 400 ml 480 ml Other 30 ml Output Urine Total 345 ml 295 ml Stool Total 200 ml Dressing: other Wound: other Drains: other Cardiovascular: RSR Respiratory: decreased breath sounds Abdomen: soft, non-tender, present bowel sounds Extremities: no cyanosis Laboratory Tests Test 12/04/19 04:00 White Blood Count 11.5 K/UL (4.8-10.8) H Red Blood Count 2.67 M/UL (4.70-6.10) L Hemoglobin 7.5 G/DL (14.2-18.0) L Hematocrit 24.5 % (42.0-52.0) L Mean Corpuscular Volume 92 FL (80-99) Mean Corpuscular Hemoglobin 28.2 PG (27.0-31.0) Mean Corpuscular Hemoglobin Concent 30.6 G/DL (32.0-36.0) L Red Cell Distribution Width 16.2 % (11.6-14.8) H Platelet Count 191 K/UL (150-450) Mean Platelet Volume 6.5 FL (6.5-10.1) Neutrophils (%) (Auto) % (45.0-75.0) Lymphocytes (%) (Auto) % (20.0-45.0) Monocytes (%) (Auto) % (1.0-10.0) Eosinophils (%) (Auto) % (0.0-3.0) Basophils (%) (Auto) % (0.0-2.0) Differential Total Cells Counted 100 Neutrophils % (Manual) 84 % (45-75) H Lymphocytes % (Manual) 13 % (20-45) L Monocytes % (Manual) 3 % (1-10) Eosinophils % (Manual) 0 % (0-3) Basophils % (Manual) 0 % (0-2) Band Neutrophils 0 % (0-8) Platelet Estimate Adequate Platelet Morphology Normal Hypochromasia 1+ Anisocytosis 1+ Sodium Level 147 MMOL/L (136-145) H Potassium Level 3.5 MMOL/L (3.5-5.1) Chloride Level 117 MMOL/L (98-107) H Carbon Dioxide Level 19 MMOL/L (21-32) L Anion Gap 11 mmol/L (5-15) Blood Urea Nitrogen 79 mg/dL (7-18) H Creatinine 3.0 MG/DL (0.55-1.30) H Estimat Glomerular Filtration Rate 20.7 mL/min (>60) Glucose Level 110 MG/DL (74-106) H Calcium Level 7.4 MG/DL (8.5-10.1) L Phosphorus Level 4.5 MG/DL (2.5-4.9) Magnesium Level 2.1 MG/DL (1.8-2.4) Total Bilirubin 0.2 MG/DL (0.2-1.0) Direct Bilirubin < 0.1 MG/DL (0.0-0.3) Aspartate Amino Transf (AST/SGOT) 40 U/L (15-37) H Alanine Aminotransferase (ALT/SGPT) 12 U/L (12-78) Alkaline Phosphatase 93 U/L (46-116) Total Protein 5.0 G/DL (6.4-8.2) L Albumin 0.6 G/DL (3.4-5.0) L Plan Problems: (1) Decubitus skin ulcer Assessment & Plan: Pt presented on admission with large sacral wound. Base of wound with areas that area purple and indurated sacrococcygeal,L sacrum/L gluteus,Scattered wounds with maceration L gluteus, one wound R sacrum with Biofilm, Surrounding non-blanching erythema entire buttocks. Small dry scabbed area noted to lumbar area. Unstageable Pressure Injury L heel. Base of wound is necrotic with surrounding non-blanching erythema. Tx.plan: Apply Moisture Barrier Paste to Buttocks. Cover Sacrum, R and L gluteal cheeks with Optifoam drsgs. Change every 3 days and prn. Apply Betadine to L heel. Cover with Optifoam drsg. Change every 3 days and prn. Reposition at least every 2hours or as tolerated. Place Pillow between knees. Off-load heels with Pillow. APM/BRUNILDA Mattress overlay. DAILY ESTIMATED NEEDS: Needs based on wt loss, underweight, wound/ 59kg 30-35 kcals/kg 9062-5299 total kcals 1.25-2 g protein/kg 74-118 g total protein 25-30 mL/kg 3459-7128 total fluid mLs NUTRITION DIAGNOSIS: * Increased kcal/prot intake needs R/T wound healing, suspected recent significant wt loss as evidenced by admitted w/ wounds @ lt posterior heel, R lower back, sacrum as per photos, pending eval, suspected significant wt loss of 40lbs/ 23.7% in <5 months, currently @ 81% IBW. . * Swallowing difficulty R/T dysphagia, h/o CVA as evidenced by PEG dependent. CURRENT TF:Glucerna 1.2 @65ml/hr x24 hrs ENTERAL NUTRITION RECOMMENDATIONS: NEPRO @45ml/hr x24 hrs to provide 1080ml, 1944 kcal, 87g pro, 785ml free H2O - Rec TF change for lower K content (1145mg in Nepro @45 vs 3151mg in Glucerna 1.2 @65) - Start at 25ml/hr advance as tolerated 10ml/hr q4-6 hrs - HOB over 30 degrees - Increased H20 flush to 200ml q4 hrs ADDITIONAL RECOMMENDATIONS: 1) Calibrated bedscale wt -> per SNF: HT=59" and DT=196xsn (10/20/19) 2) Wound healing: Add Vit C 500mg QD/ or dosing per nephro Add Osbaldo BID via PEG w/ TF order 3) Monitor lytes: monitor K trend, need for renal TF (K 5.3, 5.5) 4) NISS w/ TF (h/o DM) 5) Monitor for diarrhea, rec probiotics (2) Sepsis Assessment & Plan: 74-year-old male multi-medical comorbidities admitted for respiratory deficiency currently tachypneic, leukocytosis, malnutrition, hypoalbuminemia. Complete physical exam performed identified areas of concerned given patient's comorbidities current condition high risk for deteriorationNo active infection identified from patient's wounds and likely respiratory nature. Chest x-ray reviewed. No acute surgical intervention planned at this time Preventive measures IV antibiotics per infectious disease Okay for feeding once stable respiratory Appreciate Pulm input c diff positive on vanco blood cx noted worsening leukocytosis ID abx noted heme input noted There are increasing basilar opacities on the left noted. The heart size is normal. The pleural spaces are clear. 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
[2019-12-04] MEDS: Dyna-Hex 2% Top Sol 2oz TOPIC SCH (20:34)
[2019-12-04] MEDS: D5NS 1,000 ML IV SCH (21:57)
[2019-12-05] VITALS (31 sets, daily range): BP systolic 106–141; BP diastolic 46–74
[2019-12-05] MEDS: Midodrine 10mg tab GT SCH ×3 (05:52→19:46)
[2019-12-05] MEDS: Metoclopramide 10mg/2ml Inj IVP SCH ×4 (05:52→23:50)
[2019-12-05 06:18] LABS: HEMATOCRIT 23.6 % (42.0-52.0); HEMOGLOBIN 7.2 G/DL (14.2-18.0); MEAN CORPUSCULAR VOLUME 92 FL (80-99); PLATELET COUNT 176 K/UL (150-450); RED BLOOD COUNT 2.58 M/UL (4.70-6.10); RED CELL DISTRIBUTION WIDTH 16.1 % (11.6-14.8); WHITE BLOOD COUNT 11.6 K/UL (4.8-10.8)
[2019-12-05 06:52] LABS: ALANINE AMINOTRANSFERASE 10 U/L (12-78); ALBUMIN 1.5 G/DL (3.4-5.0); ALBUMIN/GLOBULIN RATIO 0.4 (1.0-2.7); ALKALINE PHOSPHATASE 83 U/L (46-116); ANION GAP 14 mmol/L (5-15); ASPARTATE AMINO TRANSFERASE 27 U/L (15-37); BILIRUBIN,TOTAL 0.2 MG/DL (0.2-1.0); BLOOD UREA NITROGEN 71 mg/dL (7-18); CALCIUM 7.6 MG/DL (8.5-10.1); CARBON DIOXIDE 20 MMOL/L (21-32); CHLORIDE 115 MMOL/L (98-107); CREATININE 2.9 MG/DL (0.55-1.30); PHOSPHORUS 4.7 MG/DL (2.5-4.9); POTASSIUM 3.3 MMOL/L (3.5-5.1); SODIUM 148 MMOL/L (136-145)
[2019-12-05] MEDS: Renvela 800mg Pkt GT SCH ×2 (08:10→19:46)
[2019-12-05] MEDS: Heparin 5000 units/ml inj SUBQ SCH ×2 (08:11→19:47)
[2019-12-05] MEDS: Norepinephrine Bitartrate 8 MG in D5W 500ml 550 ML IV SCH (10:00)
--- NOTE | 2019-12-05 10:48 | General Progress Note ---
Assessment/Plan Problem List: (1) DM (diabetes mellitus) ICD Codes: E11.9 - Type 2 diabetes mellitus without complications SNOMED: 04261277 (2) Dysphagia ICD Codes: R13.10 - Dysphagia, unspecified SNOMED: 67770277, 285350115 (3) Suspected COVID-19 virus infection ICD Codes: Z20.828 - Contact with and (suspected) exposure to other viral communicable diseases SNOMED: 039362715 (4) Respiratory failure with hypoxia ICD Codes: J96.91 - Respiratory failure, unspecified with hypoxia SNOMED: 73491473594910490 Qualifiers: Qualified Codes: J96.01 - Acute respiratory failure with hypoxia (5) Anemia ICD Codes: D64.9 - Anemia, unspecified SNOMED: 236485057 Qualifiers: Qualified Codes: D64.9 - Anemia, unspecified (6) UTI (urinary tract infection) ICD Codes: N39.0 - Urinary tract infection, site not specified SNOMED: 96659981 Qualifiers: Qualified Codes: N30.00 - Acute cystitis without hematuria (7) ARF (acute renal failure) ICD Codes: N17.9 - Acute kidney failure, unspecified SNOMED: 67050507 Qualifiers: Qualified Codes: N17.9 - Acute kidney failure, unspecified (8) DM (diabetes mellitus) ICD Codes: E11.9 - Type 2 diabetes mellitus without complications SNOMED: 96098042 (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 - Cerebral infarction due to unspecified occlusion or stenosis of left middle cerebral artery SNOMED: 696907175 (10) Sepsis ICD Codes: A41.9 - Sepsis, unspecified organism SNOMED: 54044481 Qualifiers: Qualified Codes: A41.9 - Sepsis, unspecified organism; R65.20 - Severe sepsis without septic shock; J96.01 - Acute respiratory failure with hypoxia (11) Decubitus skin ulcer ICD Codes: L89.90 - Pressure ulcer of unspecified site, unspecified stage SNOMED: 895269851 Status: unchanged Assessment/Plan: on reglan monitor for residuals GT flush fu labs ICU care Subjective ROS Limited/Unobtainable: No Allergies: Coded Allergies: No Known Allergies (Unverified , 09/16/19) Objective Last 24 Hour Vital Signs Date Time Temp Pulse Resp B/P (MAP) Pulse Ox O2 Delivery O2 Flow Rate FiO2 12/05/19 10:00 125/62 12/05/19 10:00 78 20 125/65 (85) 99 12/05/19 09:00 79 18 125/60 (81) 100 12/05/19 08:20 100 12/05/19 08:00 30 12/05/19 08:00 Mechanical Ventilator 12/05/19 08:00 97.8 80 20 128/68 (88) 100 12/05/19 07:55 71 12/05/19 07:15 78 20 30 12/05/19 07:00 79 20 127/62 (83) 100 12/05/19 06:30 78 20 137/67 (90) 100 12/05/19 06:00 76 20 132/64 (86) 100 12/05/19 05:30 74 20 136/66 (89) 100 12/05/19 05:00 70 20 119/66 (83) 100 12/05/19 04:30 77 19 130/60 (83) 100 12/05/19 04:00 97.3 81 19 133/74 (93) 100 12/05/19 04:00 30 12/05/19 04:00 70 12/05/19 04:00 Mechanical Ventilator 12/05/19 03:56 74 20 30 12/05/19 03:30 71 20 132/62 (85) 100 12/05/19 03:00 144/64 12/05/19 03:00 73 20 134/64 (87) 100 12/05/19 02:30 76 20 135/65 (88) 100 12/05/19 02:00 80 20 134/53 (80) 100 12/05/19 02:00 142/66 12/05/19 01:30 76 11 139/73 (95) 100 12/05/19 01:00 133/64 12/05/19 01:00 86 13 132/68 (89) 99 12/05/19 00:30 84 17 134/66 (88) 99 12/05/19 00:00 30 12/05/19 00:00 80 12/05/19 00:00 133/64 12/05/19 00:00 97.5 84 20 141/70 (93) 100 12/05/19 00:00 Mechanical Ventilator 6/21/20 23:52 82 21 30 12/04/19 23:00 84 20 133/63 (86) 99 12/04/19 23:00 140/64 12/04/19 22:30 85 19 141/73 (95) 99 12/04/19 22:07 137/73 12/04/19 22:00 20 137/73 (94) 99 12/04/19 21:30 83 21 135/69 (91) 99 12/04/19 21:00 83 21 123/69 (87) 99 12/04/19 21:00 123/69 12/04/19 21:00 Mechanical Ventilator 12/04/19 20:30 85 21 129/72 (91) 99 12/04/19 20:00 127/64 12/04/19 20:00 30 12/04/19 20:00 97.4 84 20 127/64 (85) 99 12/04/19 20:00 85 12/04/19 19:58 84 21 30 12/04/19 19:30 85 21 135/71 (92) 99 12/04/19 19:00 85 21 135/68 (90) 99 12/04/19 19:00 132/68 12/04/19 18:30 86 21 132/68 (89) 99 12/04/19 18:00 86 21 132/64 (86) 99 12/04/19 18:00 132/64 12/04/19 17:30 87 21 128/68 (88) 99 12/04/19 17:00 92 20 122/70 (87) 99 12/04/19 17:00 122/70 12/04/19 16:30 94 22 141/70 (93) 99 12/04/19 16:00 Mechanical Ventilator 12/04/19 16:00 97 12/04/19 16:00 149/76 12/04/19 16:00 97.2 96 21 149/76 (100) 99 12/04/19 16:00 30 12/04/19 15:30 96 22 148/80 (102) 99 12/04/19 15:00 129/69 12/04/19 15:00 97 21 129/69 (89) 99 12/04/19 14:30 99 20 159/81 (107) 99 12/04/19 14:30 159/81 12/04/19 14:30 85 20 30 12/04/19 14:00 160/80 12/04/19 14:00 101 20 160/99 (119) 99 12/04/19 13:30 101 20 155/78 (103) 99 12/04/19 13:00 151/79 12/04/19 13:00 103 20 140/79 (99) 99 12/04/19 12:45 106 12/04/19 12:30 129 20 109/78 (88) 98 12/04/19 12:07 130 12/04/19 12:00 96.8 138 20 92/66 (75) 97 12/04/19 12:00 146 12/04/19 12:00 Mechanical Ventilator 12/04/19 12:00 100/67 12/04/19 12:00 30 12/04/19 11:30 135 20 100/66 (77) 95 12/04/19 11:00 119/70 12/04/19 11:00 136 20 119/70 (86) 95 12/04/19 10:50 126 20 30 Intake and Output 12/04/19 12/05/19 19:00 07:00 Intake Total 1263.00086 ml 1371.83 ml Output Total 455 ml 340 ml Balance 808.85135 ml 1031.83 ml Free Water 40 ml 120 ml IV Total 968.79546 ml 841.83 ml Tube Feeding 255 ml 410 ml Output Urine Total 205 ml 190 ml Stool Total 250 ml 150 ml Laboratory Tests 12/05/19 05:00: White Blood Count 11.6H, Red Blood Count 2.58L, Hemoglobin 7.2L, Hematocrit 23.6L, Mean Corpuscular Volume 92, Mean Corpuscular Hemoglobin 28.1, Mean Corpuscular Hemoglobin Concent 30.7L, Red Cell Distribution Width 16.1H, Platelet Count 176, Mean Platelet Volume 6.4L, Neutrophils (%) (Auto) , Lymphocytes (%) (Auto) , Monocytes (%) (Auto) , Eosinophils (%) (Auto) , Basophils (%) (Auto) , Differential Total Cells Counted 100, Neutrophils % ( Manual) 79H, Lymphocytes % (Manual) 17L, Monocytes % (Manual) 3, Eosinophils % ( Manual) 1, Basophils % (Manual) 0, Band Neutrophils 0, Platelet Estimate Adequate, Platelet Morphology Normal, Hypochromasia 1+, Anisocytosis 1+, Sodium Level 148H, Potassium Level 3.3L, Chloride Level 115H, Carbon Dioxide Level 20L , Anion Gap 14, Blood Urea Nitrogen 71H, Creatinine 2.9H, Estimat Glomerular Filtration Rate 21.5, Glucose Level 95, Calcium Level 7.6L, Phosphorus Level 4.7 , Magnesium Level 2.1, Total Bilirubin 0.2, Aspartate Amino Transf (AST/SGOT) 27 , Alanine Aminotransferase (ALT/SGPT) 10L, Alkaline Phosphatase 83, C-Reactive Protein, Quantitative 8.8H, Total Protein 5.4L, Albumin 1.5L, Globulin 3.9, Albumin/Globulin Ratio 0.4L Height (Feet): 6 Height (Inches): 0.00 Weight (Pounds): 166 General Appearance: no apparent distress EENT: normal ENT inspection Neck: supple Cardiovascular: normal rate Respiratory/Chest: decreased breath sounds Abdomen: normal bowel sounds, non tender, soft Extremities: non-tender Louie Fan MD Dec 05, 2019 10:48
--- NOTE | 2019-12-05 10:58 | Pulmonolgy Critical Care Note ---
Critical Care - Asmt/Plan Problems: (1) Acute respiratory failure (2) Hypoxemic encephalopathy (3) Cardiac arrest (4) Bacteremia Assessment & Plan: enterocococus fecalis in blood. Proteus and Pseudomonas in sputum. (5) 2019 novel coronavirus disease (COVID-19) (6) ARF (acute renal failure) (7) Aspiration pneumonia (8) Ventricular tachyarrhythmia (9) DM (diabetes mellitus) Respiratory: monitor respiratory rate, adjust FIO2, CXR Cardiac: continue to monitor HR/BP Renal: F/U I&O, check electrolytes Infectious Disease: check cultures Gastrointestinal: continue feedings/current rate Endocrine: monitor blood sugar, continue sliding scale insulin Hematologic: transfuse if hgb<8.5 Neurologic: PRN Ativan, keep patient comfortable Prophylaxis: Protonix Notes Reviewed: cardio, renal 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, consultants, case management associateproduct development manager - Objective Last 24 Hour Vital Signs Date Time Temp Pulse Resp B/P (MAP) Pulse Ox O2 Delivery O2 Flow Rate FiO2 12/05/19 10:00 125/62 12/05/19 10:00 78 20 125/65 (85) 99 12/05/19 09:00 79 18 125/60 (81) 100 12/05/19 08:20 100 12/05/19 08:00 30 12/05/19 08:00 Mechanical Ventilator 12/05/19 08:00 97.8 80 20 128/68 (88) 100 12/05/19 07:55 71 12/05/19 07:15 78 20 30 12/05/19 07:00 79 20 127/62 (83) 100 12/05/19 06:30 78 20 137/67 (90) 100 12/05/19 06:00 76 20 132/64 (86) 100 12/05/19 05:30 74 20 136/66 (89) 100 12/05/19 05:00 70 20 119/66 (83) 100 12/05/19 04:30 77 19 130/60 (83) 100 12/05/19 04:00 97.3 81 19 133/74 (93) 100 12/05/19 04:00 30 12/05/19 04:00 70 12/05/19 04:00 Mechanical Ventilator 12/05/19 03:56 74 20 30 12/05/19 03:30 71 20 132/62 (85) 100 12/05/19 03:00 144/64 12/05/19 03:00 73 20 134/64 (87) 100 12/05/19 02:30 76 20 135/65 (88) 100 12/05/19 02:00 80 20 134/53 (80) 100 12/05/19 02:00 142/66 12/05/19 01:30 76 11 139/73 (95) 100 12/05/19 01:00 133/64 12/05/19 01:00 86 13 132/68 (89) 99 12/05/19 00:30 84 17 134/66 (88) 99 12/05/19 00:00 30 12/05/19 00:00 80 12/05/19 00:00 133/64 12/05/19 00:00 97.5 84 20 141/70 (93) 100 12/05/19 00:00 Mechanical Ventilator 12/04/19 23:52 82 21 30 12/04/19 23:00 84 20 133/63 (86) 99 12/04/19 23:00 140/64 12/04/19 22:30 85 19 141/73 (95) 99 12/04/19 22:07 137/73 12/04/19 22:00 20 137/73 (94) 99 12/04/19 21:30 83 21 135/69 (91) 99 12/04/19 21:00 83 21 123/69 (87) 99 12/04/19 21:00 123/69 12/04/19 21:00 Mechanical Ventilator 12/04/19 20:30 85 21 129/72 (91) 99 12/04/19 20:00 127/64 12/04/19 20:00 30 12/04/19 20:00 97.4 84 20 127/64 (85) 99 12/04/19 20:00 85 12/04/19 19:58 84 21 30 12/04/19 19:30 85 21 135/71 (92) 99 12/04/19 19:00 85 21 135/68 (90) 99 12/04/19 19:00 132/68 12/04/19 18:30 86 21 132/68 (89) 99 12/04/19 18:00 86 21 132/64 (86) 99 6/21/20 18:00 132/64 12/04/19 17:30 87 21 128/68 (88) 99 12/04/19 17:00 92 20 122/70 (87) 99 12/04/19 17:00 122/70 12/04/19 16:30 94 22 141/70 (93) 99 12/04/19 16:00 Mechanical Ventilator 12/04/19 16:00 97 12/04/19 16:00 149/76 12/04/19 16:00 97.2 96 21 149/76 (100) 99 12/04/19 16:00 30 12/04/19 15:30 96 22 148/80 (102) 99 12/04/19 15:00 129/69 12/04/19 15:00 97 21 129/69 (89) 99 12/04/19 14:30 99 20 159/81 (107) 99 12/04/19 14:30 159/81 12/04/19 14:30 85 20 30 12/04/19 14:00 160/80 12/04/19 14:00 101 20 160/99 (119) 99 12/04/19 13:30 101 20 155/78 (103) 99 12/04/19 13:00 151/79 12/04/19 13:00 103 20 140/79 (99) 99 12/04/19 12:45 106 12/04/19 12:30 129 20 109/78 (88) 98 12/04/19 12:07 130 12/04/19 12:00 96.8 138 20 92/66 (75) 97 12/04/19 12:00 146 12/04/19 12:00 Mechanical Ventilator 12/04/19 12:00 100/67 12/04/19 12:00 30 12/04/19 11:30 135 20 100/66 (77) 95 12/04/19 11:00 119/70 12/04/19 11:00 136 20 119/70 (86) 95 Status: sedated Condition: improving HEENT: atraumatic Neck: full ROM Lungs: clear Heart: HR/BP stable Abdomen: soft Extremities: no C/C/E Critical Care - Subjective ROS Limited/Unobtainable: Yes Interval Events: no response to pain, EKG Rhythm: Sinus Rhythm FI02: 30 Vent Support Breath Rate: 20 Vent Support Mode: AC Vent Tidal Volume: 550 Sputum Amount: Small PEEP: 5.0 PIP: 26 Tube Feeding Amount: 40 I&O: Intake and Output 12/04/19 12/05/19 19:00 07:00 Intake Total 1263.65469 ml 1371.83 ml Output Total 455 ml 340 ml Balance 808.92925 ml 1031.83 ml Free Water 40 ml 120 ml IV Total 968.75085 ml 841.83 ml Tube Feeding 255 ml 410 ml Output Urine Total 205 ml 190 ml Stool Total 250 ml 150 ml ET-Tube: 8.0 ET Position: 23 Labs: Laboratory Tests Test 12/05/19 05:00 White Blood Count 11.6 K/UL (4.8-10.8) H Red Blood Count 2.58 M/UL (4.70-6.10) L Hemoglobin 7.2 G/DL (14.2-18.0) L Hematocrit 23.6 % (42.0-52.0) L Mean Corpuscular Volume 92 FL (80-99) Mean Corpuscular Hemoglobin 28.1 PG (27.0-31.0) Mean Corpuscular Hemoglobin Concent 30.7 G/DL (32.0-36.0) L Red Cell Distribution Width 16.1 % (11.6-14.8) H Platelet Count 176 K/UL (150-450) Mean Platelet Volume 6.4 FL (6.5-10.1) L Neutrophils (%) (Auto) % (45.0-75.0) Lymphocytes (%) (Auto) % (20.0-45.0) Monocytes (%) (Auto) % (1.0-10.0) Eosinophils (%) (Auto) % (0.0-3.0) Basophils (%) (Auto) % (0.0-2.0) Differential Total Cells Counted 100 Neutrophils % (Manual) 79 % (45-75) H Lymphocytes % (Manual) 17 % (20-45) L Monocytes % (Manual) 3 % (1-10) Eosinophils % (Manual) 1 % (0-3) Basophils % (Manual) 0 % (0-2) Band Neutrophils 0 % (0-8) Platelet Estimate Adequate Platelet Morphology Normal Hypochromasia 1+ Anisocytosis 1+ Sodium Level 148 MMOL/L (136-145) H Potassium Level 3.3 MMOL/L (3.5-5.1) L Chloride Level 115 MMOL/L (98-107) H Carbon Dioxide Level 20 MMOL/L (21-32) L Anion Gap 14 mmol/L (5-15) Blood Urea Nitrogen 71 mg/dL (7-18) H Creatinine 2.9 MG/DL (0.55-1.30) H Estimat Glomerular Filtration Rate 21.5 mL/min (>60) Glucose Level 95 MG/DL (74-106) Calcium Level 7.6 MG/DL (8.5-10.1) L Phosphorus Level 4.7 MG/DL (2.5-4.9) Magnesium Level 2.1 MG/DL (1.8-2.4) Total Bilirubin 0.2 MG/DL (0.2-1.0) Aspartate Amino Transf (AST/SGOT) 27 U/L (15-37) Alanine Aminotransferase (ALT/SGPT) 10 U/L (12-78) L Alkaline Phosphatase 83 U/L (46-116) C-Reactive Protein, Quantitative 8.8 mg/dL (0.00-0.90) H Total Protein 5.4 G/DL (6.4-8.2) L Albumin 1.5 G/DL (3.4-5.0) L Globulin 3.9 g/dL Albumin/Globulin Ratio 0.4 (1.0-2.7) L Ayana Ndiaye MD Dec 05, 2019 10:58
--- NOTE | 2019-12-05 10:58 | General Progress Note ---
Assessment/Plan Problem List: (1) DM (diabetes mellitus) ICD Codes: E11.9 - Type 2 diabetes mellitus without complications SNOMED: 09595038 (2) ARF (acute renal failure) ICD Codes: N17.9 - Acute kidney failure, unspecified SNOMED: 42361440 Qualifiers: Qualified Codes: N17.9 - Acute kidney failure, unspecified (3) Aspiration pneumonia ICD Codes: J69.0 - Pneumonitis due to inhalation of food and vomit SNOMED: 788056363 (4) UTI (urinary tract infection) ICD Codes: N39.0 - Urinary tract infection, site not specified SNOMED: 68479960 Qualifiers: Qualified Codes: N30.00 - Acute cystitis without hematuria (5) Hypertension ICD Codes: I10 - Essential (primary) hypertension SNOMED: 55290825 (6) Anemia ICD Codes: D64.9 - Anemia, unspecified SNOMED: 079620558 Qualifiers: Qualified Codes: D64.9 - Anemia, unspecified (7) Respiratory failure with hypoxia ICD Codes: J96.91 - Respiratory failure, unspecified with hypoxia SNOMED: 71790530630268124 Qualifiers: Qualified Codes: J96.01 - Acute respiratory failure with hypoxia (8) Suspected COVID-19 virus infection ICD Codes: Z20.828 - Contact with and (suspected) exposure to other viral communicable diseases SNOMED: 202168693 Status: unchanged Assessment/Plan: vent abx pt diet cbc bmp am Subjective Constitutional: Reports: weakness Allergies: Coded Allergies: No Known Allergies (Unverified , 09/16/19) All Systems: reviewed and negative except above Subjective intubated sedated in icu Objective Last 24 Hour Vital Signs Date Time Temp Pulse Resp B/P (MAP) Pulse Ox O2 Delivery O2 Flow Rate FiO2 12/05/19 10:00 125/62 12/05/19 10:00 78 20 125/65 (85) 99 12/05/19 09:00 79 18 125/60 (81) 100 12/05/19 08:20 100 12/05/19 08:00 30 12/05/19 08:00 Mechanical Ventilator 12/05/19 08:00 97.8 80 20 128/68 (88) 100 12/05/19 07:55 71 12/05/19 07:15 78 20 30 12/05/19 07:00 79 20 127/62 (83) 100 12/05/19 06:30 78 20 137/67 (90) 100 12/05/19 06:00 76 20 132/64 (86) 100 12/05/19 05:30 74 20 136/66 (89) 100 12/05/19 05:00 70 20 119/66 (83) 100 12/05/19 04:30 77 19 130/60 (83) 100 12/05/19 04:00 97.3 81 19 133/74 (93) 100 12/05/19 04:00 30 12/05/19 04:00 70 12/05/19 04:00 Mechanical Ventilator 12/05/19 03:56 74 20 30 12/05/19 03:30 71 20 132/62 (85) 100 12/05/19 03:00 144/64 12/05/19 03:00 73 20 134/64 (87) 100 12/05/19 02:30 76 20 135/65 (88) 100 12/05/19 02:00 80 20 134/53 (80) 100 12/05/19 02:00 142/66 12/05/19 01:30 76 11 139/73 (95) 100 12/05/19 01:00 133/64 12/05/19 01:00 86 13 132/68 (89) 99 12/05/19 00:30 84 17 134/66 (88) 99 12/05/19 00:00 30 12/05/19 00:00 80 12/05/19 00:00 133/64 12/05/19 00:00 97.5 84 20 141/70 (93) 100 12/05/19 00:00 Mechanical Ventilator 12/04/19 23:52 82 21 30 12/04/19 23:00 84 20 133/63 (86) 99 12/04/19 23:00 140/64 12/04/19 22:30 85 19 141/73 (95) 99 12/04/19 22:07 137/73 12/04/19 22:00 20 137/73 (94) 99 12/04/19 21:30 83 21 135/69 (91) 99 12/04/19 21:00 83 21 123/69 (87) 99 12/04/19 21:00 123/69 12/04/19 21:00 Mechanical Ventilator 12/04/19 20:30 85 21 129/72 (91) 99 12/04/19 20:00 127/64 12/04/19 20:00 30 12/04/19 20:00 97.4 84 20 127/64 (85) 99 12/04/19 20:00 85 12/04/19 19:58 84 21 30 12/04/19 19:30 85 21 135/71 (92) 99 12/04/19 19:00 85 21 135/68 (90) 99 12/04/19 19:00 132/68 12/04/19 18:30 86 21 132/68 (89) 99 12/04/19 18:00 86 21 132/64 (86) 99 12/04/19 18:00 132/64 12/04/19 17:30 87 21 128/68 (88) 99 12/04/19 17:00 92 20 122/70 (87) 99 12/04/19 17:00 122/70 12/04/19 16:30 94 22 141/70 (93) 99 12/04/19 16:00 Mechanical Ventilator 12/04/19 16:00 97 12/04/19 16:00 149/76 12/04/19 16:00 97.2 96 21 149/76 (100) 99 12/04/19 16:00 30 12/04/19 15:30 96 22 148/80 (102) 99 12/04/19 15:00 129/69 12/04/19 15:00 97 21 129/69 (89) 99 12/04/19 14:30 99 20 159/81 (107) 99 12/04/19 14:30 159/81 12/04/19 14:30 85 20 30 12/04/19 14:00 160/80 12/04/19 14:00 101 20 160/99 (119) 99 12/04/19 13:30 101 20 155/78 (103) 99 12/04/19 13:00 151/79 12/04/19 13:00 103 20 140/79 (99) 99 12/04/19 12:45 106 12/04/19 12:30 129 20 109/78 (88) 98 12/04/19 12:07 130 12/04/19 12:00 96.8 138 20 92/66 (75) 97 12/04/19 12:00 146 12/04/19 12:00 Mechanical Ventilator 12/04/19 12:00 100/67 12/04/19 12:00 30 12/04/19 11:30 135 20 100/66 (77) 95 12/04/19 11:00 119/70 12/04/19 11:00 136 20 119/70 (86) 95 Intake and Output 12/04/19 12/05/19 19:00 07:00 Intake Total 1263.92107 ml 1371.83 ml Output Total 455 ml 340 ml Balance 808.49925 ml 1031.83 ml Free Water 40 ml 120 ml IV Total 968.56564 ml 841.83 ml Tube Feeding 255 ml 410 ml Output Urine Total 205 ml 190 ml Stool Total 250 ml 150 ml Laboratory Tests 12/05/19 05:00: White Blood Count 11.6H, Red Blood Count 2.58L, Hemoglobin 7.2L, Hematocrit 23.6L, Mean Corpuscular Volume 92, Mean Corpuscular Hemoglobin 28.1, Mean Corpuscular Hemoglobin Concent 30.7L, Red Cell Distribution Width 16.1H, Platelet Count 176, Mean Platelet Volume 6.4L, Neutrophils (%) (Auto) , Lymphocytes (%) (Auto) , Monocytes (%) (Auto) , Eosinophils (%) (Auto) , Basophils (%) (Auto) , Differential Total Cells Counted 100, Neutrophils % ( Manual) 79H, Lymphocytes % (Manual) 17L, Monocytes % (Manual) 3, Eosinophils % ( Manual) 1, Basophils % (Manual) 0, Band Neutrophils 0, Platelet Estimate Adequate, Platelet Morphology Normal, Hypochromasia 1+, Anisocytosis 1+, Sodium Level 148H, Potassium Level 3.3L, Chloride Level 115H, Carbon Dioxide Level 20L , Anion Gap 14, Blood Urea Nitrogen 71H, Creatinine 2.9H, Estimat Glomerular Filtration Rate 21.5, Glucose Level 95, Calcium Level 7.6L, Phosphorus Level 4.7 , Magnesium Level 2.1, Total Bilirubin 0.2, Aspartate Amino Transf (AST/SGOT) 27 , Alanine Aminotransferase (ALT/SGPT) 10L, Alkaline Phosphatase 83, C-Reactive Protein, Quantitative 8.8H, Total Protein 5.4L, Albumin 1.5L, Globulin 3.9, Albumin/Globulin Ratio 0.4L Height (Feet): 6 Height (Inches): 0.00 Weight (Pounds): 166 General Appearance: lethargic EENT: normal ENT inspection Neck: normal alignment Cardiovascular: normal rate, regular rhythm Respiratory/Chest: no respiratory distress, no accessory muscle use Extremities: normal inspection Skin: normal pigmentation Juan Singh DO Dec 05, 2019 10:58
--- NOTE | 2019-12-05 11:54 | Hematology/Onc Progress Note ---
Assessment/Plan Assessment/Plan Assessment and Recs # Leukocytosis/elevated white blood cell count, unspecified likely related to underlying stress reaction, smoking v more likely infection, in this case with pna and COVID19++++++++ --> have reviewed peripheral smear and bandemia/neutrophilia noted --> continue antibiotics if they have been started by ID team --> monitor for resolution --> wbc 35k-->31.2-->25-->27.4 -->25-->20.7-->18.6 -->27-->19.7 -->20->20->18.2- ->15.7 -->14-->12.7-->11 --> abx/antivral: remdesivir/vanc/cefepime-->vanc/flagyl/monique-->linezolid/monique-- >cefepime/zyvox/vanc ->vanc/cefepime --> 11/28 cxr: Slight increased alveolar infiltrates. --> 11/30 cxr: No significant change bilateral infiltrates and right effusion. # Thrombocytosis - if plt count >400k, most usually is a reactive process and will improve once exacerbant removed as well --> in this case due to underlying infection --> plt trend 646k-->672 -->547-->372-->345-->149 -->246-->232-->197-->220 --> smear is noted # Anemia of chronic disease due to underlying chronic medical issues, multifactorial v Gi bleed --> Anemia workup has been ordered, rule out gi bleed -> ferritin 1339 --> No evidence of hemolysis is noted, peripheral smear has been reviewed. --> Hgb goal >7. Transfuse prn. --> Epogen or iron at this time is not particularly indicated --> Medications have been reviewed --> low threshold for gi evaluation in case has occult + --> bone marrow biopsy is not indicated given the other more likely causes --> hgb 9.5-->9.8->8.8-->8.6-->7.5-->9.5-->7.5 -->9.1-->8-->7.6-->7-->9.2-->8.2- ->8.7-->7.5->7.2 --> 1 unit prbc 11/20; 11/28 --> ddimer remains elevated currently # Acute hypoxic resp failure- 2ry to COVID19 --> vent+ --> per id and pulm recs --> breathing treatments and rep cxr --> 11/15 cxr: New/increased infiltrates at the left lateral lung base # UTI c/w bacteremia --> abx per id # Cdiff colitis --> abx # MONICA, improving # Deep tissue injury (sacrum, L heel) # HTN # Dm2 # MDD # Dysphagia s/p GT # malnutrition # decubitus ulcer # non verbal # 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 Greatly appreciate consultation. Subjective Allergies: Coded Allergies: No Known Allergies (Unverified , 09/16/19) All Systems: reviewed and negative except above Subjective 11/15 tele, no acute events, cxr and labs reviewed, nrb 15l, remdesivir 11/16 remains on iso, breathing is improved, no night sweats 11/17 remains with fever, cooling blankets, labs noted, no bleed hgb 8.8 11/19 icu, no acute events, vent, levo gtt, meds and labs reviewed 11/20 labs noted, no bleeding, in icu, hgb 7.5, to get one unit prbc, wbc elev 25 11/21 non verbal, s/p blood, hgb improved to 9.5, vent, iv abx 11/22 icu, no new changes, labs reviewed, levo gtt 11/23 labs are noted, no bleeding, in icu, on levo, wbc 27, hgb 9 11/24 nonverbal, no new changes, afebrile 11/26 nonverbal, in icu, on vent, wbc 20, hgb 8, no bleeding 11/[address], vent, lavonne as well, labs reviewed 11/28 nonverbal, icu, hbg 7, iv abx, 6/17 s/p 1 unit blood, hgb improved to 9.2, cxr reviewed 11/30 labs are noted, hgb is stable, nonverbal, on vent 12/01 icu, cxr reviewed, hgb 8.7, cefepime, vent 12/03 comatose, no bleeding, meds noted, hgb 7.5, no bleeding, with gtube feeds 12/04 on vent, abx, in icu, no bleeding, hgb 7.2, no hemolysis, gtube+ Objective Objective Current Medications Medications (Trade) Dose Ordered Sig/Leonor Route PRN Reason Start Time Stop Time Status Last Admin Dose Admin Acetaminophen (Tylenol) 650 mg Q4H PRN GT fever 11/18/19 03:00 12/11/19 02:59 11/28/19 05:07 Allopurinol (allopurinoL) 300 mg DAILY GT 11/21/19 09:00 12/21/19 08:59 12/05/19 08:10 Chlorhexidine Gluconate (Danielle-Hex 2%) 1 applic DAILY@2000 TOPIC 11/18/19 20:00 02/16/20 19:59 12/04/19 20:34 Dextrose/Sodium Chloride 1,000 ml @ 50 mls/hr Q20H IV 11/22/19 10:15 12/20/19 10:14 12/04/19 21:57 Epoetin Marek (Procrit (for non ESRD use)) 10,000 units THU-THU-THU SUBQ 12/05/19 21:00 03/04/20 20:59 Fidaxomicin (Dificid) 200 mg EVERY 12 HOURS ORAL 11/30/19 21:00 12/10/19 23:59 12/05/19 08:15 Heparin Sodium (Porcine) (Heparin 5000 units/ml) 5,000 units EVERY 12 HOURS SUBQ 11/18/19 09:00 12/26/19 08:59 12/05/19 08:11 Metoclopramide HCl (Reglan) 5 mg Q6HR IVP 12/01/19 12:00 12/31/19 11:59 12/05/19 11:36 Midodrine (Pro-Amatine) 10 mg Q8HR GT 12/03/19 14:00 02/20/20 13:59 12/05/19 05:52 Norepinephrine Bitartrate 8 mg/ Dextrose 558 ml @ 0 mls/hr Q24H IV 11/18/19 10:00 12/18/19 09:59 12/04/19 09:49 Ondansetron HCl (Zofran) 4 mg Q6H PRN IVP Nausea & Vomiting 11/18/19 03:00 12/11/19 08:59 Sevelamer Carbonate (Renvela) 800 mg Q12HR GT 11/29/19 21:00 02/20/20 07:59 12/05/19 08:10 Last 24 Hour Vital Signs Date Time Temp Pulse Resp B/P (MAP) Pulse Ox O2 Delivery O2 Flow Rate FiO2 12/05/19 11:00 78 22 130/63 (85) 99 12/05/19 10:00 125/62 12/05/19 10:00 78 20 125/65 (85) 99 12/05/19 09:00 79 18 125/60 (81) 100 12/05/19 08:20 100 12/05/19 08:00 30 12/05/19 08:00 Mechanical Ventilator 12/05/19 08:00 97.8 80 20 128/68 (88) 100 12/05/19 07:55 71 12/05/19 07:15 78 20 30 12/05/19 07:00 79 20 127/62 (83) 100 12/05/19 06:30 78 20 137/67 (90) 100 12/05/19 06:00 76 20 132/64 (86) 100 12/05/19 05:30 74 20 136/66 (89) 100 12/05/19 05:00 70 20 119/66 (83) 100 12/05/19 04:30 77 19 130/60 (83) 100 12/05/19 04:00 97.3 81 19 133/74 (93) 100 12/05/19 04:00 30 12/05/19 04:00 70 12/05/19 04:00 Mechanical Ventilator 12/05/19 03:56 74 20 30 12/05/19 03:30 71 20 132/62 (85) 100 12/05/19 03:00 144/64 12/05/19 03:00 73 20 134/64 (87) 100 12/05/19 02:30 76 20 135/65 (88) 100 12/05/19 02:00 80 20 134/53 (80) 100 12/05/19 02:00 142/66 12/05/19 01:30 76 11 139/73 (95) 100 12/05/19 01:00 133/64 12/05/19 01:00 86 13 132/68 (89) 99 12/05/19 00:30 84 17 134/66 (88) 99 12/05/19 00:00 30 12/05/19 00:00 80 12/05/19 00:00 133/64 12/05/19 00:00 97.5 84 20 141/70 (93) 100 12/05/19 00:00 Mechanical Ventilator 12/04/19 23:52 82 21 30 12/04/19 23:00 84 20 133/63 (86) 99 12/04/19 23:00 140/64 12/04/19 22:30 85 19 141/73 (95) 99 12/04/19 22:07 137/73 12/04/19 22:00 20 137/73 (94) 99 12/04/19 21:30 83 21 135/69 (91) 99 12/04/19 21:00 83 21 123/69 (87) 99 12/04/19 21:00 123/69 12/04/19 21:00 Mechanical Ventilator 12/04/19 20:30 85 21 129/72 (91) 99 12/04/19 20:00 127/64 12/04/19 20:00 30 12/04/19 20:00 97.4 84 20 127/64 (85) 99 12/04/19 20:00 85 12/04/19 19:58 84 21 30 12/04/19 19:30 85 21 135/71 (92) 99 12/04/19 19:00 85 21 135/68 (90) 99 12/04/19 19:00 132/68 12/04/19 18:30 86 21 132/68 (89) 99 12/04/19 18:00 86 21 132/64 (86) 99 12/04/19 18:00 132/64 12/04/19 17:30 87 21 128/68 (88) 99 12/04/19 17:00 92 20 122/70 (87) 99 12/04/19 17:00 122/70 12/04/19 16:30 94 22 141/70 (93) 99 12/04/19 16:00 Mechanical Ventilator 12/04/19 16:00 97 12/04/19 16:00 149/76 12/04/19 16:00 97.2 96 21 149/76 (100) 99 12/04/19 16:00 30 12/04/19 15:30 96 22 148/80 (102) 99 12/04/19 15:00 129/69 12/04/19 15:00 97 21 129/69 (89) 99 12/04/19 14:30 99 20 159/81 (107) 99 12/04/19 14:30 159/81 12/04/19 14:30 85 20 30 12/04/19 14:00 160/80 12/04/19 14:00 101 20 160/99 (119) 99 12/04/19 13:30 101 20 155/78 (103) 99 12/04/19 13:00 151/79 12/04/19 13:00 103 20 140/79 (99) 99 12/04/19 12:45 106 12/04/19 12:30 129 20 109/78 (88) 98 12/04/19 12:07 130 12/04/19 12:00 96.8 138 20 92/66 (75) 97 12/04/19 12:00 146 12/04/19 12:00 Mechanical Ventilator 12/04/19 12:00 100/67 12/04/19 12:00 30 12/04/19 11:30 135 20 100/66 (77) 95 12/04/19 11:00 119/70 12/04/19 11:00 136 20 119/70 (86) 95 12/04/19 10:50 126 20 30 12/04/19 10:30 136 20 109/80 (90) 95 12/04/19 10:24 88/72 12/04/19 10:00 134 21 105/73 (84) 94 12/04/19 09:59 105/73 12/04/19 09:54 66/49 12/04/19 09:49 59/42 12/04/19 09:30 133 20 87/51 (63) 96 12/04/19 09:00 92 22 130/70 (90) 100 12/04/19 09:00 30 12/04/19 08:30 74 20 101/48 (65) 100 12/04/19 08:00 79 12/04/19 08:00 96.6 75 20 94/42 (59) 100 12/04/19 08:00 Mechanical Ventilator 12/04/19 07:30 75 20 88/44 (59) 100 12/04/19 07:19 75 21 30 12/04/19 07:00 77 20 99/45 (63) 99 12/04/19 06:00 77 20 100/45 (63) 100 12/04/19 05:00 76 21 96/46 (63) 100 12/04/19 04:00 30 12/04/19 04:00 Mechanical Ventilator 12/04/19 04:00 97.0 74 20 99/45 (63) 100 12/04/19 04:00 71 12/04/19 03:00 78 21 93/44 (60) 100 12/04/19 02:53 87 22 30 12/04/19 02:00 81 21 99/43 (61) 99 12/04/19 01:00 82 19 100/46 (64) 99 12/04/19 00:00 97.0 73 23 100/63 (75) 100 12/04/19 00:00 Mechanical Ventilator 12/03/19 23:00 81 21 118/51 (73) 99 12/03/19 22:45 84 20 30 12/03/19 22:00 77 20 115/51 (72) 99 12/03/19 21:00 81 20 119/60 (79) 99 12/03/19 20:00 30 12/03/19 20:00 Mechanical Ventilator 12/03/19 20:00 81 12/03/19 20:00 97.5 81 20 115/49 (71) 97 12/03/19 19:53 88 21 30 12/03/19 19:00 81 20 111/50 (70) 97 12/03/19 18:00 80 21 114/57 (76) 99 12/03/19 17:00 82 20 121/57 (78) 99 12/03/19 16:00 85 12/03/19 16:00 Mechanical Ventilator 12/03/19 16:00 30 12/03/19 16:00 97.7 82 20 118/60 (79) 99 12/03/19 15:01 84 20 30 12/03/19 15:00 84 20 117/56 (76) 99 12/03/19 14:00 85 20 126/61 (82) 99 12/03/19 13:00 83 20 125/56 (79) 99 12/03/19 12:00 97.4 12/03/19 12:00 Mechanical Ventilator 12/03/19 12:00 30 12/03/19 12:00 82 20 124/57 (79) 99 12/03/19 12:00 82 Intake and Output 12/04/19 12/05/19 19:00 07:00 Intake Total 1263.24116 ml 1371.83 ml Output Total 455 ml 340 ml Balance 808.79708 ml 1031.83 ml Free Water 40 ml 120 ml IV Total 968.40361 ml 841.83 ml Tube Feeding 255 ml 410 ml Output Urine Total 205 ml 190 ml Stool Total 250 ml 150 ml Labs Test 12/03/19 04:30 12/03/19 15:10 12/04/19 04:00 12/05/19 05:00 White Blood Count 11.6 K/UL (4.8-10.8) 11.5 K/UL (4.8-10.8) 11.6 K/UL (4.8-10.8) Red Blood Count 2.78 M/UL (4.70-6.10) 2.67 M/UL (4.70-6.10) 2.58 M/UL (4.70-6.10) Hemoglobin 7.9 G/DL (14.2-18.0) 7.5 G/DL (14.2-18.0) 7.2 G/DL (14.2-18.0) Hematocrit 25.7 % (42.0-52.0) 24.5 % (42.0-52.0) 23.6 % (42.0-52.0) Mean Corpuscular Volume 92 FL (80-99) 92 FL (80-99) 92 FL (80-99) Mean Corpuscular Hemoglobin 28.4 PG (27.0-31.0) 28.2 PG (27.0-31.0) 28.1 PG (27.0-31.0) Mean Corpuscular Hemoglobin Concent 30.8 G/DL (32.0-36.0) 30.6 G/DL (32.0-36.0) 30.7 G/DL (32.0-36.0) Red Cell Distribution Width 16.4 % (11.6-14.8) 16.2 % (11.6-14.8) 16.1 % (11.6-14.8) Platelet Count 208 K/UL (150-450) 191 K/UL (150-450) 176 K/UL (150-450) Mean Platelet Volume 6.7 FL (6.5-10.1) 6.5 FL (6.5-10.1) 6.4 FL (6.5-10.1) Neutrophils (%) (Auto) % (45.0-75.0) % (45.0-75.0) % (45.0-75.0) Lymphocytes (%) (Auto) % (20.0-45.0) % (20.0-45.0) % (20.0-45.0) Monocytes (%) (Auto) % (1.0-10.0) % (1.0-10.0) % (1.0-10.0) Eosinophils (%) (Auto) % (0.0-3.0) % (0.0-3.0) % (0.0-3.0) Basophils (%) (Auto) % (0.0-2.0) % (0.0-2.0) % (0.0-2.0) Differential Total Cells Counted 100 100 100 Neutrophils % (Manual) 81 % (45-75) 84 % (45-75) 79 % (45-75) Lymphocytes % (Manual) 12 % (20-45) 13 % (20-45) 17 % (20-45) Monocytes % (Manual) 6 % (1-10) 3 % (1-10) 3 % (1-10) Eosinophils % (Manual) 0 % (0-3) 0 % (0-3) 1 % (0-3) Basophils % (Manual) 1 % (0-2) 0 % (0-2) 0 % (0-2) Band Neutrophils 0 % (0-8) 0 % (0-8) 0 % (0-8) Platelet Estimate Adequate Adequate Adequate Platelet Morphology Normal Normal Normal Hypochromasia 3+ 1+ 1+ Anisocytosis 1+ 1+ 1+ Sodium Level 145 MMOL/L (136-145) 147 MMOL/L (136-145) 148 MMOL/L (136-145) Potassium Level 3.5 MMOL/L (3.5-5.1) 3.5 MMOL/L (3.5-5.1) 3.3 MMOL/L (3.5-5.1) Chloride Level 114 MMOL/L (98-107) 117 MMOL/L (98-107) 115 MMOL/L (98-107) Carbon Dioxide Level 20 MMOL/L (21-32) 19 MMOL/L (21-32) 20 MMOL/L (21-32) Anion Gap 11 mmol/L (5-15) 11 mmol/L (5-15) 14 mmol/L (5-15) Blood Urea Nitrogen 71 mg/dL (7-18) 79 mg/dL (7-18) 71 mg/dL (7-18) Creatinine 2.9 MG/DL (0.55-1.30) 3.0 MG/DL (0.55-1.30) 2.9 MG/DL (0.55-1.30) Estimat Glomerular Filtration Rate 21.5 mL/min (>60) 20.7 mL/min (>60) 21.5 mL/min (>60) Glucose Level 111 MG/DL (74-106) 110 MG/DL (74-106) 95 MG/DL (74-106) Uric Acid 5.6 MG/DL (2.6-7.2) Calcium Level 7.4 MG/DL (8.5-10.1) 7.4 MG/DL (8.5-10.1) 7.6 MG/DL (8.5-10.1) Phosphorus Level 4.5 MG/DL (2.5-4.9) 4.5 MG/DL (2.5-4.9) 4.7 MG/DL (2.5-4.9) Magnesium Level 2.1 MG/DL (1.8-2.4) 2.1 MG/DL (1.8-2.4) 2.1 MG/DL (1.8-2.4) Ferritin 485 NG/ML (8-388) Total Bilirubin 0.3 MG/DL (0.2-1.0) 0.2 MG/DL (0.2-1.0) 0.2 MG/DL (0.2-1.0) Aspartate Amino Transf (AST/SGOT) 54 U/L (15-37) 40 U/L (15-37) 27 U/L (15-37) Alanine Aminotransferase (ALT/SGPT) 16 U/L (12-78) 12 U/L (12-78) 10 U/L (12-78) Alkaline Phosphatase 94 U/L (46-116) 93 U/L (46-116) 83 U/L (46-116) C-Reactive Protein, Quantitative 9.1 mg/dL (0.00-0.90) 8.8 mg/dL (0.00-0.90) Total Protein 5.0 G/DL (6.4-8.2) 5.0 G/DL (6.4-8.2) 5.4 G/DL (6.4-8.2) Albumin 0.7 G/DL (3.4-5.0) 0.6 G/DL (3.4-5.0) 1.5 G/DL (3.4-5.0) Globulin 4.3 g/dL 3.9 g/dL Albumin/Globulin Ratio 0.2 (1.0-2.7) 0.4 (1.0-2.7) Iron Level 16 ug/dL (50-175) Total Iron Binding Capacity 72 ug/dL (250-450) Percent Iron Saturation 22 % (15-50) Unsaturated Iron Binding 56 ug/dL (112-346) Direct Bilirubin < 0.1 MG/DL (0.0-0.3) Test 12/05/19 11:14 Arterial Blood pH 7.334 (7.350-7.450) Arterial Blood Partial Pressure CO2 33.8 mmHg (35.0-45.0) Arterial Blood Partial Pressure O2 99.1 mmHg (75.0-100.0) Arterial Blood HCO3 17.6 mmol/L (22.0-26.0) Arterial Blood Oxygen Saturation 96.7 % (95-100) Arterial Blood Base Excess -7.5 (-2-2) Michael Test Positive Height (Feet): 6 Height (Inches): 0.00 Weight (Pounds): 166 Objective PE General: alert, chronically Ill Heent: nc, at Neck: full range of motion, supple, no meningismus Respiratory: chest non-tender, decreased breath sounds, crackles, vent++ Cardiovascular: no murmur, tachycardia Gastrointestinal: normal bowel sounds, non tender,+peg Musculoskeletal: back normal, normal range of motion, gait/station normal Neurologic: no pronator Deng Flowers MD Dec 05, 2019 11:54
--- NOTE | 2019-12-05 12:23 | Infectious Diseases Prog Note ---
Assessment/Plan Assessment/Plan Assessment: PEA arrest> unstable SVT s/p cardioversion 11/17 Septic shock- SP Fever, recurrent; SP Leukocytosis; fluctuating; improving -11/23 u/a wbc 15-20, nit neg, leuk +2; ucx C. lusitanae Bcx Neg -11/17 u/a no pyuria; ucx neg Bcx Neg sp cx PsA (R Zosyn; S Gentamycin, levaquin, Cefepime, ceftazidime, Meropenem), P. mirabilis (blackwood S) Pneumonia Acute hypoxic resp failure- sp NRB 15L, now VDRF 11/17 - 2ry to COVID19 and superimposed bacterial PNA -11/28 CXR: Slight increased alveolar infiltrates. -11/24 CXR: Right basilar pleural effusion and likely parenchymal consolidation are unchanged sp cx MDR PSA (S Cefepime, Genta, Levaquin) -11/22 CXR: Slight increased right effusion. Right basilar infiltrate again noted. -11/19 CXR: There is been worsening of moderately consolidating right middle lobe pneumonia. -11/17 CXR: Bilateral lower lobe atelectasis/infiltrates, slightly increased. No large pleural effusions. -11/15 CXR: New/increased infiltrates at the left lateral lung base -11/11 CXR: Mild interstitial thickening is slightly improved. -11/10 CXR: Hazy basilar infiltrates left greater than right. sp cx PsA (blackwood S), P.mirabilis ([facility] S), MRSA (S Vanco CARLOS 1, bactrim; R tetracycline ) -11/10 SARS-COV2 positive UTI c/w bacteremia -u/a wbc 5-10, nit neg, leuk +1, RBC TNCT; ucx 10-20k E. faecalis (S amp, vanco) -11/10 Bcx 2/4 E. faecalis (S Vancomycin, AMP) CONS bacteremia- likely contaminant -11/10 Bcx 2/ S. 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 Will continue to follow along with you. Discussed with RN and pharm Subjective Allergies: Coded Allergies: No Known Allergies (Unverified , 09/16/19) Subjective afebrile wbc improving Objective Vital Signs Last 24 Hour Vital Signs Date Time Temp Pulse Resp B/P (MAP) Pulse Ox O2 Delivery O2 Flow Rate FiO2 12/05/19 11:15 74 21 30 12/05/19 11:00 78 22 130/63 (85) 99 12/05/19 10:00 125/62 12/05/19 10:00 78 20 125/65 (85) 99 12/05/19 09:00 79 18 125/60 (81) 100 12/05/19 08:20 100 12/05/19 08:00 30 12/05/19 08:00 Mechanical Ventilator 12/05/19 08:00 97.8 80 20 128/68 (88) 100 12/05/19 07:55 71 12/05/19 07:15 78 20 30 12/05/19 07:00 79 20 127/62 (83) 100 12/05/19 06:30 78 20 137/67 (90) 100 12/05/19 06:00 76 20 132/64 (86) 100 12/05/19 05:30 74 20 136/66 (89) 100 12/05/19 05:00 70 20 119/66 (83) 100 12/05/19 04:30 77 19 130/60 (83) 100 12/05/19 04:00 97.3 81 19 133/74 (93) 100 12/05/19 04:00 30 12/05/19 04:00 70 12/05/19 04:00 Mechanical Ventilator 12/05/19 03:56 74 20 30 12/05/19 03:30 71 20 132/62 (85) 100 12/05/19 03:00 144/64 12/05/19 03:00 73 20 134/64 (87) 100 12/05/19 02:30 76 20 135/65 (88) 100 12/05/19 02:00 80 20 134/53 (80) 100 12/05/19 02:00 142/66 12/05/19 01:30 76 11 139/73 (95) 100 12/05/19 01:00 133/64 12/05/19 01:00 86 13 132/68 (89) 99 12/05/19 00:30 84 17 134/66 (88) 99 12/05/19 00:00 30 12/05/19 00:00 80 12/05/19 00:00 133/64 12/05/19 00:00 97.5 84 20 141/70 (93) 100 12/05/19 00:00 Mechanical Ventilator 12/04/19 23:52 82 21 30 12/04/19 23:00 84 20 133/63 (86) 99 12/04/19 23:00 140/64 12/04/19 22:30 85 19 141/73 (95) 99 12/04/19 22:07 137/73 12/04/19 22:00 20 137/73 (94) 99 12/04/19 21:30 83 21 135/69 (91) 99 12/04/19 21:00 83 21 123/69 (87) 99 12/04/19 21:00 123/69 12/04/19 21:00 Mechanical Ventilator 12/04/19 20:30 85 21 129/72 (91) 99 12/04/19 20:00 127/64 12/04/19 20:00 30 12/04/19 20:00 97.4 84 20 127/64 (85) 99 12/04/19 20:00 85 12/04/19 19:58 84 21 30 12/04/19 19:30 85 21 135/71 (92) 99 12/04/19 19:00 85 21 135/68 (90) 99 12/04/19 19:00 132/68 12/04/19 18:30 86 21 132/68 (89) 99 12/04/19 18:00 86 21 132/64 (86) 99 12/04/19 18:00 132/64 12/04/19 17:30 87 21 128/68 (88) 99 12/04/19 17:00 92 20 122/70 (87) 99 12/04/19 17:00 122/70 12/04/19 16:30 94 22 141/70 (93) 99 12/04/19 16:00 Mechanical Ventilator 12/04/19 16:00 97 12/04/19 16:00 149/76 12/04/19 16:00 97.2 96 21 149/76 (100) 99 12/04/19 16:00 30 12/04/19 15:30 96 22 148/80 (102) 99 12/04/19 15:00 129/69 12/04/19 15:00 97 21 129/69 (89) 99 12/04/19 14:30 99 20 159/81 (107) 99 12/04/19 14:30 159/81 12/04/19 14:30 85 20 30 12/04/19 14:00 160/80 12/04/19 14:00 101 20 160/99 (119) 99 12/04/19 13:30 101 20 155/78 (103) 99 12/04/19 13:00 151/79 12/04/19 13:00 103 20 140/79 (99) 99 12/04/19 12:45 106 12/04/19 12:30 129 20 109/78 (88) 98 Height (Feet): 6 Height (Inches): 0.00 Weight (Pounds): 166 Objective Gen: critically ill HEENT: ETT in place Lungs: no tacypnea or use of accessory muscles Neuro: lethargic Laboratory Tests Test 12/05/19 05:00 12/05/19 11:14 White Blood Count 11.6 K/UL (4.8-10.8) H Red Blood Count 2.58 M/UL (4.70-6.10) L Hemoglobin 7.2 G/DL (14.2-18.0) L Hematocrit 23.6 % (42.0-52.0) L Mean Corpuscular Volume 92 FL (80-99) Mean Corpuscular Hemoglobin 28.1 PG (27.0-31.0) Mean Corpuscular Hemoglobin Concent 30.7 G/DL (32.0-36.0) L Red Cell Distribution Width 16.1 % (11.6-14.8) H Platelet Count 176 K/UL (150-450) Mean Platelet Volume 6.4 FL (6.5-10.1) L Neutrophils (%) (Auto) % (45.0-75.0) Lymphocytes (%) (Auto) % (20.0-45.0) Monocytes (%) (Auto) % (1.0-10.0) Eosinophils (%) (Auto) % (0.0-3.0) Basophils (%) (Auto) % (0.0-2.0) Differential Total Cells Counted 100 Neutrophils % (Manual) 79 % (45-75) H Lymphocytes % (Manual) 17 % (20-45) L Monocytes % (Manual) 3 % (1-10) Eosinophils % (Manual) 1 % (0-3) Basophils % (Manual) 0 % (0-2) Band Neutrophils 0 % (0-8) Platelet Estimate Adequate Platelet Morphology Normal Hypochromasia 1+ Anisocytosis 1+ Sodium Level 148 MMOL/L (136-145) H Potassium Level 3.3 MMOL/L (3.5-5.1) L Chloride Level 115 MMOL/L (98-107) H Carbon Dioxide Level 20 MMOL/L (21-32) L Anion Gap 14 mmol/L (5-15) Blood Urea Nitrogen 71 mg/dL (7-18) H Creatinine 2.9 MG/DL (0.55-1.30) H Estimat Glomerular Filtration Rate 21.5 mL/min (>60) Glucose Level 95 MG/DL (74-106) Calcium Level 7.6 MG/DL (8.5-10.1) L Phosphorus Level 4.7 MG/DL (2.5-4.9) Magnesium Level 2.1 MG/DL (1.8-2.4) Total Bilirubin 0.2 MG/DL (0.2-1.0) Aspartate Amino Transf (AST/SGOT) 27 U/L (15-37) Alanine Aminotransferase (ALT/SGPT) 10 U/L (12-78) L Alkaline Phosphatase 83 U/L (46-116) C-Reactive Protein, Quantitative 8.8 mg/dL (0.00-0.90) H Total Protein 5.4 G/DL (6.4-8.2) L Albumin 1.5 G/DL (3.4-5.0) L Globulin 3.9 g/dL Albumin/Globulin Ratio 0.4 (1.0-2.7) L Arterial Blood pH 7.334 (7.350-7.450) Arterial Blood Partial Pressure CO2 33.8 mmHg (35.0-45.0) L Arterial Blood Partial Pressure O2 99.1 mmHg (75.0-100.0) Arterial Blood HCO3 17.6 mmol/L (22.0-26.0) *L Arterial Blood Oxygen Saturation 96.7 % (95-100) Arterial Blood Base Excess -7.5 (-2-2) L Michael Test Positive Current Medications Medications (Trade) Dose Ordered Sig/Leonor Route PRN Reason Start Time Stop Time Status Last Admin Dose Admin Acetaminophen (Tylenol) 650 mg Q4H PRN GT fever 11/18/19 03:00 12/11/19 02:59 11/28/19 05:07 Allopurinol (allopurinoL) 300 mg DAILY GT 11/21/19 09:00 12/21/19 08:59 12/05/19 08:10 Chlorhexidine Gluconate (Danielle-Hex 2%) 1 applic DAILY@2000 TOPIC 11/18/19 20:00 02/16/20 19:59 12/04/19 20:34 Dextrose/Sodium Chloride 1,000 ml @ 50 mls/hr Q20H IV 11/22/19 10:15 12/20/19 10:14 12/04/19 21:57 Epoetin Marek (Procrit (for non ESRD use)) 10,000 units [id number] SUBQ 12/05/19 21:00 03/04/20 20:59 Fidaxomicin (Dificid) 200 mg EVERY 12 HOURS ORAL 11/30/19 21:00 12/10/19 23:59 12/05/19 08:15 Heparin Sodium (Porcine) (Heparin 5000 units/ml) 5,000 units EVERY 12 HOURS SUBQ 11/18/19 09:00 12/26/19 08:59 12/05/19 08:11 Metoclopramide HCl (Reglan) 5 mg Q6HR IVP 12/01/19 12:00 12/31/19 11:59 12/05/19 11:36 Midodrine (Pro-Amatine) 10 mg Q8HR GT 12/03/19 14:00 02/20/20 13:59 12/05/19 05:52 Norepinephrine Bitartrate 8 mg/ Dextrose 558 ml @ 0 mls/hr Q24H IV 11/18/19 10:00 12/18/19 09:59 12/04/19 09:49 Ondansetron HCl (Zofran) 4 mg Q6H PRN IVP Nausea & Vomiting 11/18/19 03:00 12/11/19 08:59 Sevelamer Carbonate (Renvela) 800 mg Q12HR GT 11/29/19 21:00 02/20/20 07:59 12/05/19 08:10 Shannon Mark M.D. Dec 05, 2019 12:23
--- NOTE | 2019-12-05 12:39 | Nephrology Progress Note ---
Assessment/Plan Problem List: (1) ARF (acute renal failure) (2) Hyperkalemia (3) DM (diabetes mellitus) (4) Suspected COVID-19 virus infection (5) Sepsis (6) Severe malnutrition Assessment: Severe hypoalbuminemia Assessment his 74-year-old male with multiple Multiple medical problem presents with respiratory symptoms and diarrhea Renal failure most likely prerenal azotemia secondary to dehydration Hyperkalemia on presentation also secondary to dehydration Sepsis pneumonia hypoxia UTI Anemia History of hypertension History of diabetes mellitus Suspected COVID-19 virus infection Hypoalbuminemia Plan C. difficile positive COVID-19 detected December 04: Serum creatinine 2.9. Hemoglobin remains low. No need for dialysis treatment today. Continue to monitor renal parameters and intake and output. December 03: Serum creatinine 3. Hemoglobin lower. On low-dose pressors today. Continue to monitor renal parameters. Watch if needed dialysis. Trial of albumin 25%. December 02: Serum creatinine remains at 2.9. Anemia worsened. Iron panel ferritin ordered. 1 dose of Venofer 200 mg ordered. Subcutaneous Epogen started. Continues to be full code intubated on ventilator. No need for dialysis treatment at this time since serum creatinine appears to be stable. December 01: Serum creatinine gaudencio to 2.9. Continue to monitor renal parameters, urine output, and avoid nephrotoxic's as possible. November 30: Serum creatinine remains stable. Will discontinue calcium supplements. Continue per current treatment plan. No dialysis needed. November 29: Serum creatinine stable. Off pressors. No dialysis needed today. Discussed with JUSTINO Hernandez. Continue per consultants. November 28: Serum creatinine unchanged. Off pressors. Potassium supplement intravenously ordered. Discussed with JUSTINO Evans. No need for dialysis today. Continue to monitor renal parameters. Change midodrine from PRN to scheduled every 8 hours. November 27: Labs reviewed. No dialysis today. Discussed with RN. Potassium supplement given. Continue to monitor renal parameters. Continue per consultants. November 26: Lab reviewed. Remains full code. Remains intubated. Midodrin changed to PRN. Electrolytes acceptable. Will monitor renal parameters and urine output and dialyze as needed. November 25: Dialyzed yesterday. Lab reviewed. Remains full code. Remains intubated on ventilator. On minimal dose of pressors. 20 mEq potassium chloride IV ordered for low potassium level. November 24: Patient remains intubated. Due for dialysis today. Labs reviewed. Continues to be full code. November 23: Patient was dialyzed yesterday. Labs reviewed. Status quo. Remains full code. Will arrange for dialysis tomorrow. November 22: Patient in ICU. Intubated on ventilator. On low-dose pressors. Urine output labile. Serum creatinine rising. Patient developing acute renal failure. Need urgent dialysis treatment. Will arrange for placement of non- tunneled dialysis catheter as soon as possible. RN states that no family member or next of kin could be contacted at this time. Due to the urgency of the problem and the patient being full code will proceed with placement of dialysis catheter and dialysis treatment as soon as possible. November 21: Patient continues to do poorly. Discussed with RN. Started on Midodrin for BP support. Nephro feeding started. Phosphorus binders started. IV calcium ordered. Continue to monitor renal parameters and urine output. Continue per consultants. Patient remains full code. Per orders. November 20: Serum creatinine continuing to rise. Remains of 100 cc an hour IV fluid. Urine output remains low. Blood pressure also borderline low, on pressors. Continue per consultants. Continue to monitor renal parameters and urine output. Continue to avoid nephrotoxic's. Further deterioration of renal function may lead to dialysis treatment. Will discuss with PMD. November 19: Serum creatinine rising. Urine output decreasing. Will change to IV, D5 normal saline. Will give albumin bolus followed by Lasix 40 mg IV push. Continue to monitor renal parameters and urine output. Continue to avoid nephrotoxic medications as possible. Today's vancomycin level was 22. November 18: Serum creatinine rising. Continues to be full code. Continues to be intubated on ventilator. Remains on IV fluids. Vancomycin levels per pharmacy. Prognosis poor due to sepsis. November 17: Intubated on ventilator in ICU. Will continue half-normal saline 100 cc an hour. Continue per pulmonary and ID. Prognosis poor. Continue to monitor renal parameters. Hydrate with half-normal saline, serum creatinine now at its lowest today. monitor electrolytes Will change the feeding to Nepro and monitor her potassium and other electrolytes Continue per ID Keep the blood pressure and blood sugar in check Monitor renal parameters Previously: Urine studies Monitor intake and output Cultures including stool for C. difficile Per orders Patient's CODE STATUS is full Subjective ROS Limited/Unobtainable: Yes Objective Objective Last 24 Hour Vital Signs Date Time Temp Pulse Resp B/P (MAP) Pulse Ox O2 Delivery O2 Flow Rate FiO2 12/05/19 12:00 Mechanical Ventilator 12/05/19 12:00 30 12/05/19 12:00 97.7 84 14 129/58 (81) 100 12/05/19 11:15 74 21 30 12/05/19 11:00 78 22 130/63 (85) 99 12/05/19 10:00 125/62 12/05/19 10:00 78 20 125/65 (85) 99 12/05/19 09:00 79 18 125/60 (81) 100 12/05/19 08:20 100 12/05/19 08:00 30 12/05/19 08:00 Mechanical Ventilator 12/05/19 08:00 97.8 80 20 128/68 (88) 100 12/05/19 07:55 71 12/05/19 07:15 78 20 30 12/05/19 07:00 79 20 127/62 (83) 100 12/05/19 06:30 78 20 137/67 (90) 100 12/05/19 06:00 76 20 132/64 (86) 100 12/05/19 05:30 74 20 136/66 (89) 100 12/05/19 05:00 70 20 119/66 (83) 100 12/05/19 04:30 77 19 130/60 (83) 100 12/05/19 04:00 97.3 81 19 133/74 (93) 100 12/05/19 04:00 30 12/05/19 04:00 70 12/05/19 04:00 Mechanical Ventilator 12/05/19 03:56 74 20 30 12/05/19 03:30 71 20 132/62 (85) 100 12/05/19 03:00 144/64 12/05/19 03:00 73 20 134/64 (87) 100 12/05/19 02:30 76 20 135/65 (88) 100 12/05/19 02:00 80 20 134/53 (80) 100 12/05/19 02:00 142/66 12/05/19 01:30 76 11 139/73 (95) 100 12/05/19 01:00 133/64 12/05/19 01:00 86 13 132/68 (89) 99 12/05/19 00:30 84 17 134/66 (88) 99 12/05/19 00:00 30 12/05/19 00:00 80 12/05/19 00:00 133/64 12/05/19 00:00 97.5 84 20 141/70 (93) 100 12/05/19 00:00 Mechanical Ventilator 12/04/19 23:52 82 21 30 12/04/19 23:00 84 20 133/63 (86) 99 12/04/19 23:00 140/64 12/04/19 22:30 85 19 141/73 (95) 99 12/04/19 22:07 137/73 12/04/19 22:00 20 137/73 (94) 99 12/04/19 21:30 83 21 135/69 (91) 99 12/04/19 21:00 83 21 123/69 (87) 99 12/04/19 21:00 123/69 12/04/19 21:00 Mechanical Ventilator 12/04/19 20:30 85 21 129/72 (91) 99 12/04/19 20:00 127/64 12/04/19 20:00 30 12/04/19 20:00 97.4 84 20 127/64 (85) 99 12/04/19 20:00 85 12/04/19 19:58 84 21 30 12/04/19 19:30 85 21 135/71 (92) 99 12/04/19 19:00 85 21 135/68 (90) 99 12/04/19 19:00 132/68 12/04/19 18:30 86 21 132/68 (89) 99 12/04/19 18:00 86 21 132/64 (86) 99 12/04/19 18:00 132/64 12/04/19 17:30 87 21 128/68 (88) 99 12/04/19 17:00 92 20 122/70 (87) 99 12/04/19 17:00 122/70 12/04/19 16:30 94 22 141/70 (93) 99 12/04/19 16:00 Mechanical Ventilator 12/04/19 16:00 97 12/04/19 16:00 149/76 12/04/19 16:00 97.2 96 21 149/76 (100) 99 12/04/19 16:00 30 12/04/19 15:30 96 22 148/80 (102) 99 12/04/19 15:00 129/69 12/04/19 15:00 97 21 129/69 (89) 99 12/04/19 14:30 99 20 159/81 (107) 99 12/04/19 14:30 159/81 12/04/19 14:30 85 20 30 12/04/19 14:00 160/80 12/04/19 14:00 101 20 160/99 (119) 99 12/04/19 13:30 101 20 155/78 (103) 99 12/04/19 13:00 151/79 12/04/19 13:00 103 20 140/79 (99) 99 12/04/19 12:45 106 Intake and Output 12/04/19 12/05/19 19:00 07:00 Intake Total 1263.21263 ml 1371.83 ml Output Total 455 ml 340 ml Balance 808.34156 ml 1031.83 ml Free Water 40 ml 120 ml IV Total 968.75035 ml 841.83 ml Tube Feeding 255 ml 410 ml Output Urine Total 205 ml 190 ml Stool Total 250 ml 150 ml Laboratory Tests 12/05/19 05:00: White Blood Count 11.6H, Red Blood Count 2.58L, Hemoglobin 7.2L, Hematocrit 23.6L, Mean Corpuscular Volume 92, Mean Corpuscular Hemoglobin 28.1, Mean Corpuscular Hemoglobin Concent 30.7L, Red Cell Distribution Width 16.1H, Platelet Count 176, Mean Platelet Volume 6.4L, Neutrophils (%) (Auto) , Lymphocytes (%) (Auto) , Monocytes (%) (Auto) , Eosinophils (%) (Auto) , Basophils (%) (Auto) , Differential Total Cells Counted 100, Neutrophils % ( Manual) 79H, Lymphocytes % (Manual) 17L, Monocytes % (Manual) 3, Eosinophils % ( Manual) 1, Basophils % (Manual) 0, Band Neutrophils 0, Platelet Estimate Adequate, Platelet Morphology Normal, Hypochromasia 1+, Anisocytosis 1+, Sodium Level 148H, Potassium Level 3.3L, Chloride Level 115H, Carbon Dioxide Level 20L , Anion Gap 14, Blood Urea Nitrogen 71H, Creatinine 2.9H, Estimat Glomerular Filtration Rate 21.5, Glucose Level 95, Calcium Level 7.6L, Phosphorus Level 4.7 , Magnesium Level 2.1, Total Bilirubin 0.2, Aspartate Amino Transf (AST/SGOT) 27 , Alanine Aminotransferase (ALT/SGPT) 10L, Alkaline Phosphatase 83, C-Reactive Protein, Quantitative 8.8H, Total Protein 5.4L, Albumin 1.5L, Globulin 3.9, Albumin/Globulin Ratio 0.4L 12/05/19 11:14: Arterial Blood pH 7.334L, Arterial Blood Partial Pressure CO2 33.8L, Arterial Blood Partial Pressure O2 99.1, Arterial Blood HCO3 17.6*L, Arterial Blood Oxygen Saturation 96.7, Arterial Blood Base Excess -7.5L, Michael Test Positive Height (Feet): 6 Height (Inches): 0.00 Weight (Pounds): 166 General Appearance: no apparent distress EENT: other - Remains intubated on ventilator Cardiovascular: tachycardia Respiratory/Chest: decreased breath sounds Abdomen: soft, distended Objective No other change Ricardo Choudhary MD Dec 05, 2019 12:39
[2019-12-05] MEDS: D5NS 1,000 ML IV SCH (18:00)
--- NOTE | 2019-12-05 18:38 | Cardiology Progress Note ---
Assessment/Plan Assessment/Plan 1. covid 19 pneumonia 2. History of cerebrovascular accident. 3. History of carotid occlusion. 4. Bilateral infiltrates and pneumonia. 5. Aphasia. 6. Diabetes mellitus. 7. Hyponatremia. 8. Renal insufficiency 9. 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 asystolic arrest probably aspiration with subequent hypoxemia relasted 12. aspiration per er md ross intubation " There was significant gastric contents in the patient's pharynx." 13 septic shock 14. AFIB to sinus remains on a vent remain off pressore per rn not moving any ext dialysis prn afib converted to sinus spont not able to wean abx per ID s/p resmeidivir tele sinus tachy , vent down to 30% Subjective ROS Limited/Unobtainable: Yes Subjective endotracheal and oral suctioning done, copious amounts of thick clear secretions removed. Patient showing no signs of acute distress and is afebrile. Objective Last 24 Hour Vital Signs Date Time Temp Pulse Resp B/P (MAP) Pulse Ox O2 Delivery O2 Flow Rate FiO2 12/05/19 18:00 79 21 131/65 (87) 99 12/05/19 17:00 79 22 107/55 (72) 99 12/05/19 16:00 97.4 81 22 111/55 (73) 98 12/05/19 16:00 30 12/05/19 16:00 Mechanical Ventilator 12/05/19 15:34 83 12/05/19 15:15 80 21 30 12/05/19 15:06 83 20 113/58 (76) 99 12/05/19 14:00 81 21 112/62 (79) 99 12/05/19 13:00 80 12 117/55 (75) 99 12/05/19 12:00 81 12/05/19 12:00 Mechanical Ventilator 12/05/19 12:00 30 12/05/19 12:00 97.7 84 14 129/58 (81) 100 12/05/19 11:15 74 21 30 12/05/19 11:00 78 22 130/63 (85) 99 12/05/19 10:00 125/62 12/05/19 10:00 78 20 125/65 (85) 99 12/05/19 09:00 79 18 125/60 (81) 100 12/05/19 08:20 100 12/05/19 08:00 30 12/05/19 08:00 Mechanical Ventilator 12/05/19 08:00 97.8 80 20 128/68 (88) 100 12/05/19 07:55 71 12/05/19 07:15 78 20 30 12/05/19 07:00 79 20 127/62 (83) 100 12/05/19 06:30 78 20 137/67 (90) 100 12/05/19 06:00 76 20 132/64 (86) 100 12/05/19 05:30 74 20 136/66 (89) 100 12/05/19 05:00 70 20 119/66 (83) 100 12/05/19 04:30 77 19 130/60 (83) 100 12/05/19 04:00 97.3 81 19 133/74 (93) 100 12/05/19 04:00 30 12/05/19 04:00 70 12/05/19 04:00 Mechanical Ventilator 12/05/19 03:56 74 20 30 12/05/19 03:30 71 20 132/62 (85) 100 12/05/19 03:00 144/64 12/05/19 03:00 73 20 134/64 (87) 100 12/05/19 02:30 76 20 135/65 (88) 100 12/05/19 02:00 80 20 134/53 (80) 100 12/05/19 02:00 142/66 12/05/19 01:30 76 11 139/73 (95) 100 12/05/19 01:00 133/64 12/05/19 01:00 86 13 132/68 (89) 99 12/05/19 00:30 84 17 134/66 (88) 99 12/05/19 00:00 30 12/05/19 00:00 80 12/05/19 00:00 133/64 12/05/19 00:00 97.5 84 20 141/70 (93) 100 12/05/19 00:00 Mechanical Ventilator 12/04/19 23:52 82 21 30 12/04/19 23:00 84 20 133/63 (86) 99 12/04/19 23:00 140/64 12/04/19 22:30 85 19 141/73 (95) 99 12/04/19 22:07 137/73 12/04/19 22:00 20 137/73 (94) 99 12/04/19 21:30 83 21 135/69 (91) 99 12/04/19 21:00 83 21 123/69 (87) 99 12/04/19 21:00 123/69 12/04/19 21:00 Mechanical Ventilator 12/04/19 20:30 85 21 129/72 (91) 99 12/04/19 20:00 127/64 12/04/19 20:00 30 12/04/19 20:00 97.4 84 20 127/64 (85) 99 12/04/19 20:00 85 12/04/19 19:58 84 21 30 12/04/19 19:30 85 21 135/71 (92) 99 12/04/19 19:00 85 21 135/68 (90) 99 12/04/19 19:00 132/68 General Appearance: no apparent distress, on vent, patient on isolation, isolation precautions Intake and Output 12/04/19 12/05/19 19:00 07:00 Intake Total 1263.38834 ml 1371.83 ml Output Total 455 ml 340 ml Balance 808.21818 ml 1031.83 ml Free Water 40 ml 120 ml IV Total 968.31255 ml 841.83 ml Tube Feeding 255 ml 410 ml Output Urine Total 205 ml 190 ml Stool Total 250 ml 150 ml Laboratory Tests Test 12/05/19 05:00 12/05/19 11:14 12/05/19 13:07 White Blood Count 11.6 K/UL (4.8-10.8) H Red Blood Count 2.58 M/UL (4.70-6.10) L Hemoglobin 7.2 G/DL (14.2-18.0) L Hematocrit 23.6 % (42.0-52.0) L Mean Corpuscular Volume 92 FL (80-99) Mean Corpuscular Hemoglobin 28.1 PG (27.0-31.0) Mean Corpuscular Hemoglobin Concent 30.7 G/DL (32.0-36.0) L Red Cell Distribution Width 16.1 % (11.6-14.8) H Platelet Count 176 K/UL (150-450) Mean Platelet Volume 6.4 FL (6.5-10.1) L Neutrophils (%) (Auto) % (45.0-75.0) Lymphocytes (%) (Auto) % (20.0-45.0) Monocytes (%) (Auto) % (1.0-10.0) Eosinophils (%) (Auto) % (0.0-3.0) Basophils (%) (Auto) % (0.0-2.0) Differential Total Cells Counted 100 Neutrophils % (Manual) 79 % (45-75) H Lymphocytes % (Manual) 17 % (20-45) L Monocytes % (Manual) 3 % (1-10) Eosinophils % (Manual) 1 % (0-3) Basophils % (Manual) 0 % (0-2) Band Neutrophils 0 % (0-8) Platelet Estimate Adequate Platelet Morphology Normal Hypochromasia 1+ Anisocytosis 1+ Sodium Level 148 MMOL/L (136-145) H Potassium Level 3.3 MMOL/L (3.5-5.1) L Chloride Level 115 MMOL/L (98-107) H Carbon Dioxide Level 20 MMOL/L (21-32) L Anion Gap 14 mmol/L (5-15) Blood Urea Nitrogen 71 mg/dL (7-18) H Creatinine 2.9 MG/DL (0.55-1.30) H Estimat Glomerular Filtration Rate 21.5 mL/min (>60) Glucose Level 95 MG/DL (74-106) Calcium Level 7.6 MG/DL (8.5-10.1) L Phosphorus Level 4.7 MG/DL (2.5-4.9) Magnesium Level 2.1 MG/DL (1.8-2.4) Total Bilirubin 0.2 MG/DL (0.2-1.0) Aspartate Amino Transf (AST/SGOT) 27 U/L (15-37) Alanine Aminotransferase (ALT/SGPT) 10 U/L (12-78) L Alkaline Phosphatase 83 U/L (46-116) C-Reactive Protein, Quantitative 8.8 mg/dL (0.00-0.90) H Total Protein 5.4 G/DL (6.4-8.2) L Albumin 1.5 G/DL (3.4-5.0) L Globulin 3.9 g/dL Albumin/Globulin Ratio 0.4 (1.0-2.7) L Arterial Blood pH 7.334 (7.350-7.450) 7.299 (7.350-7.450) Arterial Blood Partial Pressure CO2 33.8 mmHg (35.0-45.0) L 34.1 mmHg (35.0-45.0) L Arterial Blood Partial Pressure O2 99.1 mmHg (75.0-100.0) 85.4 mmHg (75.0-100.0) Arterial Blood HCO3 17.6 mmol/L (22.0-26.0) *L 16.4 mmol/L (22.0-26.0) *L Arterial Blood Oxygen Saturation 96.7 % (95-100) 94.9 % (95-100) L Arterial Blood Base Excess -7.5 (-2-2) L -9.2 (-2-2) *L Michael Test Positive Positive Objective pt seen but nto examined due to covid per dr orellana noatation Lungs: clear Heart: HR/BP stable Abdomen: soft Extremities: no C/C/E Chris Melgar MD Dec 05, 2019 18:38
[2019-12-05] MEDS: Dyna-Hex 2% Top Sol 2oz TOPIC SCH (19:46)
[2019-12-05] MEDS ORDERED: Epoetin Alfa-EPBX (NON ESRD)10,000 unit/ml vial SUBQ SCH (21:00)
--- NOTE | 2019-12-05 21:10 | Diagnostic Imaging Report ---
EXAM: CT Head Without Intravenous Contrast CLINICAL HISTORY: AMS and ALOC TECHNIQUE: Axial computed tomography images of the head/brain without intravenous contrast. CTDI is 53 mGy and DLP is 992 mGy-cm. One or more of the following dose reduction techniques were used: automated exposure control, adjustment of the mA and/or kV according to patient size, use of iterative reconstruction technique. COMPARISON: 07/22/2019 FINDINGS: Brain: Interval new loss of barrientos-white differentiation and sulcal effacement involving the right parietal lobe diffusely as well as mild right parietal lobe hypoattenuation during for stroke. No significant mass effect or hemorrhage. Continued evolution of large left ICA territory infarct seen on prior study. Similar-appearing right anterior temporal lobe encephalomalacia. Otherwise no acute intracranial abnormality seen. Ventricles: Unremarkable. No ventriculomegaly. Bones/joints: Old left lamina papyracea fracture. Bilateral large mastoid air cell effusions. Osteopenia. Soft tissues: Unremarkable. Sinuses: Unremarkable as visualized. No acute sinusitis. Mastoid air cells: Unremarkable as visualized. No mastoid effusion. IMPRESSION: 1. Interval new loss of barrientos-white differentiation and sulcal effacement involving the right parietal lobe diffusely as well as mild right parietal lobe hypoattenuation during for stroke. No significant mass effect or hemorrhage. 2. Continued evolution of large left ICA territory infarct seen on prior study. Similar-appearing right anterior temporal lobe encephalomalacia. 3. Otherwise no acute intracranial abnormality seen. 4. Bilateral large mastoid air cell effusions. <MYCVCSECTION> Communications: 12/05/19 20:44 Call Doctor Regarding Stroke, called Dr Ndiaye on 12/04 20:45 (-07:00)
--- NOTE | 2019-12-05 21:24 | Surgery Progress Note ---
Surgery Progress Note Subjective Additional Comments CT head noted prognosis guarded off pressors labs reviewed Objective Last 24 Hour Vital Signs Date Time Temp Pulse Resp B/P (MAP) Pulse Ox O2 Delivery O2 Flow Rate FiO2 12/05/19 19:30 81 20 30 12/05/19 19:00 97 23 106/46 (66) 100 12/05/19 18:00 79 21 131/65 (87) 99 12/05/19 17:00 79 22 107/55 (72) 99 12/05/19 16:00 97.4 81 22 111/55 (73) 98 12/05/19 16:00 30 12/05/19 16:00 Mechanical Ventilator 12/05/19 15:34 83 12/05/19 15:15 80 21 30 12/05/19 15:06 83 20 113/58 (76) 99 12/05/19 14:00 81 21 112/62 (79) 99 12/05/19 13:00 80 12 117/55 (75) 99 12/05/19 12:00 81 12/05/19 12:00 Mechanical Ventilator 12/05/19 12:00 30 12/05/19 12:00 97.7 84 14 129/58 (81) 100 12/05/19 11:15 74 21 30 12/05/19 11:00 78 22 130/63 (85) 99 12/05/19 10:00 125/62 12/05/19 10:00 78 20 125/65 (85) 99 12/05/19 09:00 79 18 125/60 (81) 100 12/05/19 08:20 100 12/05/19 08:00 30 12/05/19 08:00 Mechanical Ventilator 12/05/19 08:00 97.8 80 20 128/68 (88) 100 12/05/19 07:55 71 12/05/19 07:15 78 20 30 12/05/19 07:00 79 20 127/62 (83) 100 12/05/19 06:30 78 20 137/67 (90) 100 12/05/19 06:00 76 20 132/64 (86) 100 12/05/19 05:30 74 20 136/66 (89) 100 12/05/19 05:00 70 20 119/66 (83) 100 12/05/19 04:30 77 19 130/60 (83) 100 12/05/19 04:00 97.3 81 19 133/74 (93) 100 12/05/19 04:00 30 12/05/19 04:00 70 12/05/19 04:00 Mechanical Ventilator 12/05/19 03:56 74 20 30 12/05/19 03:30 71 20 132/62 (85) 100 12/05/19 03:00 144/64 12/05/19 03:00 73 20 134/64 (87) 100 12/05/19 02:30 76 20 135/65 (88) 100 12/05/19 02:00 80 20 134/53 (80) 100 12/05/19 02:00 142/66 12/05/19 01:30 76 11 139/73 (95) 100 12/05/19 01:00 133/64 12/05/19 01:00 86 13 132/68 (89) 99 12/05/19 00:30 84 17 134/66 (88) 99 12/05/19 00:00 30 12/05/19 00:00 80 12/05/19 00:00 133/64 12/05/19 00:00 97.5 84 20 141/70 (93) 100 12/05/19 00:00 Mechanical Ventilator 12/04/19 23:52 82 21 30 12/04/19 23:00 84 20 133/63 (86) 99 12/04/19 23:00 140/64 12/04/19 22:30 85 19 141/73 (95) 99 12/04/19 22:07 137/73 12/04/19 22:00 20 137/73 (94) 99 12/04/19 21:30 83 21 135/69 (91) 99 I&O Intake and Output 12/04/19 12/05/19 19:00 07:00 Intake Total 1263.12400 ml 1371.83 ml Output Total 455 ml 340 ml Balance 808.12790 ml 1031.83 ml Free Water 40 ml 120 ml IV Total 968.21070 ml 841.83 ml Tube Feeding 255 ml 410 ml Output Urine Total 205 ml 190 ml Stool Total 250 ml 150 ml Dressing: other Wound: other Drains: other Cardiovascular: RSR Respiratory: decreased breath sounds Abdomen: soft, non-tender, decreased bowel sounds Extremities: edema, no tenderness, no cyanosis Laboratory Tests Test 12/05/19 05:00 12/05/19 11:14 12/05/19 13:07 White Blood Count 11.6 K/UL (4.8-10.8) H Red Blood Count 2.58 M/UL (4.70-6.10) L Hemoglobin 7.2 G/DL (14.2-18.0) L Hematocrit 23.6 % (42.0-52.0) L Mean Corpuscular Volume 92 FL (80-99) Mean Corpuscular Hemoglobin 28.1 PG (27.0-31.0) Mean Corpuscular Hemoglobin Concent 30.7 G/DL (32.0-36.0) L Red Cell Distribution Width 16.1 % (11.6-14.8) H Platelet Count 176 K/UL (150-450) Mean Platelet Volume 6.4 FL (6.5-10.1) L Neutrophils (%) (Auto) % (45.0-75.0) Lymphocytes (%) (Auto) % (20.0-45.0) Monocytes (%) (Auto) % (1.0-10.0) Eosinophils (%) (Auto) % (0.0-3.0) Basophils (%) (Auto) % (0.0-2.0) Differential Total Cells Counted 100 Neutrophils % (Manual) 79 % (45-75) H Lymphocytes % (Manual) 17 % (20-45) L Monocytes % (Manual) 3 % (1-10) Eosinophils % (Manual) 1 % (0-3) Basophils % (Manual) 0 % (0-2) Band Neutrophils 0 % (0-8) Platelet Estimate Adequate Platelet Morphology Normal Hypochromasia 1+ Anisocytosis 1+ Sodium Level 148 MMOL/L (136-145) H Potassium Level 3.3 MMOL/L (3.5-5.1) L Chloride Level 115 MMOL/L (98-107) H Carbon Dioxide Level 20 MMOL/L (21-32) L Anion Gap 14 mmol/L (5-15) Blood Urea Nitrogen 71 mg/dL (7-18) H Creatinine 2.9 MG/DL (0.55-1.30) H Estimat Glomerular Filtration Rate 21.5 mL/min (>60) Glucose Level 95 MG/DL (74-106) Calcium Level 7.6 MG/DL (8.5-10.1) L Phosphorus Level 4.7 MG/DL (2.5-4.9) Magnesium Level 2.1 MG/DL (1.8-2.4) Total Bilirubin 0.2 MG/DL (0.2-1.0) Aspartate Amino Transf (AST/SGOT) 27 U/L (15-37) Alanine Aminotransferase (ALT/SGPT) 10 U/L (12-78) L Alkaline Phosphatase 83 U/L (46-116) C-Reactive Protein, Quantitative 8.8 mg/dL (0.00-0.90) H Total Protein 5.4 G/DL (6.4-8.2) L Albumin 1.5 G/DL (3.4-5.0) L Globulin 3.9 g/dL Albumin/Globulin Ratio 0.4 (1.0-2.7) L Arterial Blood pH 7.334 (7.350-7.450) 7.299 (7.350-7.450) Arterial Blood Partial Pressure CO2 33.8 mmHg (35.0-45.0) L 34.1 mmHg (35.0-45.0) L Arterial Blood Partial Pressure O2 99.1 mmHg (75.0-100.0) 85.4 mmHg (75.0-100.0) Arterial Blood HCO3 17.6 mmol/L (22.0-26.0) *L 16.4 mmol/L (22.0-26.0) *L Arterial Blood Oxygen Saturation 96.7 % (95-100) 94.9 % (95-100) L Arterial Blood Base Excess -7.5 (-2-2) L -9.2 (-2-2) *L Michael Test Positive Positive Plan Problems: (1) Decubitus skin ulcer Assessment & Plan: Pt presented on admission with large sacral wound. Base of wound with areas that area purple and indurated sacrococcygeal,L sacrum/L gluteus,Scattered wounds with maceration L gluteus, one wound R sacrum with Biofilm, Surrounding non-blanching erythema entire buttocks. Small dry scabbed area noted to lumbar area. Unstageable Pressure Injury L heel. Base of wound is necrotic with surrounding non-blanching erythema. Tx.plan: Apply Moisture Barrier Paste to Buttocks. Cover Sacrum, R and L gluteal cheeks with Optifoam drsgs. Change every 3 days and prn. Apply Betadine to L heel. Cover with Optifoam drsg. Change every 3 days and prn. Reposition at least every 2hours or as tolerated. Place Pillow between knees. Off-load heels with Pillow. APM/BRUNILDA Mattress overlay. DAILY ESTIMATED NEEDS: Needs based on wt loss, underweight, wound/ 59kg 30-35 kcals/kg 8882-3017 total kcals 1.25-2 g protein/kg 74-118 g total protein 25-30 mL/kg 3320-9458 total fluid mLs NUTRITION DIAGNOSIS: * Increased kcal/prot intake needs R/T wound healing, suspected recent significant wt loss as evidenced by admitted w/ wounds @ lt posterior heel, R lower back, sacrum as per photos, pending eval, suspected significant wt loss of 40lbs/ 23.7% in <5 months, currently @ 81% IBW. . * Swallowing difficulty R/T dysphagia, h/o CVA as evidenced by PEG dependent. CURRENT TF:Glucerna 1.2 @65ml/hr x24 hrs ENTERAL NUTRITION RECOMMENDATIONS: NEPRO @45ml/hr x24 hrs to provide 1080ml, 1944 kcal, 87g pro, 785ml free H2O - Rec TF change for lower K content (1145mg in Nepro @45 vs 3151mg in Glucerna 1.2 @65) - Start at 25ml/hr advance as tolerated 10ml/hr q4-6 hrs - HOB over 30 degrees - Increased H20 flush to 200ml q4 hrs ADDITIONAL RECOMMENDATIONS: 1) Calibrated bedscale wt -> per SNF: HT=59" and MA=892jpb (10/20/19) 2) Wound healing: Add Vit C 500mg QD/ or dosing per nephro Add Osbaldo BID via PEG w/ TF order 3) Monitor lytes: monitor K trend, need for renal TF (K 5.3, 5.5) 4) NISS w/ TF (h/o DM) 5) Monitor for diarrhea, rec probiotics (2) Sepsis Assessment & Plan: 74-year-old male multi-medical comorbidities admitted for respiratory deficiency currently tachypneic, leukocytosis, malnutrition, hypoalbuminemia. Complete physical exam performed identified areas of concerned given patient's comorbidities current condition high risk for deteriorationNo active infection identified from patient's wounds and likely respiratory nature. Chest x-ray reviewed. No acute surgical intervention planned at this time Preventive measures IV antibiotics per infectious disease Okay for feeding once stable respiratory Appreciate Pulm input c diff positive on vanco blood cx noted worsening leukocytosis ID abx noted heme input noted There are increasing basilar opacities on the left noted. The heart size is normal. The pleural spaces are clear. Impression: New/increased infiltrates at the left lateral lung base We will follow with recommendations thank you for let me participate patient's care worsening in ICU now on pressors intubated febrile prognosis guarded ill appearing still weaning slowly 1. Interval new loss of barrientos-white differentiation and sulcal effacement involving the right parietal lobe diffusely as well as mild right parietal lobe hypoattenuation during for stroke. No significant mass effect or hemorrhage. 2. Continued evolution of large left ICA territory infarct seen on prior study. Similar-appearing right anterior temporal lobe encephalomalacia. 3. Otherwise no acute intracranial abnormality seen. 4. Bilateral large mastoid air cell effusions. (3) Left carotid artery occlusion (4) Left middle cerebral artery stroke (5) DM (diabetes mellitus) (6) ARF (acute renal failure) (7) Ventricular tachyarrhythmia (8) Aspiration pneumonia (9) Hypertension (10) UTI (urinary tract infection) (11) Anemia (12) Respiratory failure with hypoxia (13) Suspected COVID-19 virus infection Assessment & Plan: ++++ Elfego Payne Dec 05, 2019 21:24
[2019-12-06] VITALS (25 sets, daily range): BP systolic 90–133; BP diastolic 50–64
[2019-12-06] MEDS: Metoclopramide 10mg/2ml Inj IVP SCH ×4 (04:50→21:04)
[2019-12-06] MEDS: Midodrine 10mg tab GT SCH ×3 (04:50→21:04)
[2019-12-06 05:19] LABS: HEMATOCRIT 23.9 % (42.0-52.0); HEMOGLOBIN 7.3 G/DL (14.2-18.0); MEAN CORPUSCULAR VOLUME 91 FL (80-99); PLATELET COUNT 199 K/UL (150-450); RED BLOOD COUNT 2.62 M/UL (4.70-6.10); RED CELL DISTRIBUTION WIDTH 16.1 % (11.6-14.8); WHITE BLOOD COUNT 11.1 K/UL (4.8-10.8)
[2019-12-06 05:46] LABS: ALANINE AMINOTRANSFERASE 11 U/L (12-78); ALBUMIN 1.3 G/DL (3.4-5.0); ALBUMIN/GLOBULIN RATIO 0.3 (1.0-2.7); ALKALINE PHOSPHATASE 78 U/L (46-116); ANION GAP 11 mmol/L (5-15); ASPARTATE AMINO TRANSFERASE 30 U/L (15-37); BILIRUBIN,TOTAL 0.2 MG/DL (0.2-1.0); BLOOD UREA NITROGEN 71 mg/dL (7-18); CALCIUM 7.7 MG/DL (8.5-10.1); CARBON DIOXIDE 20 MMOL/L (21-32); CHLORIDE 118 MMOL/L (98-107); CREATININE 2.9 MG/DL (0.55-1.30); PHOSPHORUS 4.8 MG/DL (2.5-4.9); POTASSIUM 3.4 MMOL/L (3.5-5.1); SODIUM 149 MMOL/L (136-145)
--- NOTE | 2019-12-06 07:20 | Hematology/Onc Progress Note ---
Assessment/Plan Assessment/Plan Assessment and Recs # Leukocytosis/elevated white blood cell count, unspecified likely related to underlying stress reaction, smoking v more likely infection, in this case with pna and COVID19++++++++ --> have reviewed peripheral smear and bandemia/neutrophilia noted --> continue antibiotics if they have been started by ID team --> monitor for resolution --> wbc 35k-->31.2-->25-->27.4 -->25-->20.7-->18.6 -->27-->19.7 -->20->20->18.2- ->15.7 -->14-->12.7-->11 --> abx/antivral: remdesivir/vanc/cefepime-->vanc/flagyl/monique-->linezolid/monique-- >cefepime/zyvox/vanc ->vanc/cefepime --> 11/28 cxr: Slight increased alveolar infiltrates. --> 11/30 cxr: No significant change bilateral infiltrates and right effusion. # Thrombocytosis - if plt count >400k, most usually is a reactive process and will improve once exacerbant removed as well --> in this case due to underlying infection --> plt trend 646k-->672 -->547-->372-->345-->149 -->246-->232-->197-->220 --> smear is noted # Anemia of chronic disease due to underlying chronic medical issues, multifactorial v Gi bleed --> Anemia workup has been ordered, rule out gi bleed -> ferritin 1339 --> No evidence of hemolysis is noted, peripheral smear has been reviewed. --> Hgb goal >7. Transfuse prn. --> Epogen or iron at this time is not particularly indicated --> Medications have been reviewed --> low threshold for gi evaluation in case has occult + --> bone marrow biopsy is not indicated given the other more likely causes --> hgb 9.5-->9.8->8.8-->8.6-->7.5-->9.5-->7.5 -->9.1-->8-->7.6-->7-->9.2-->8.2- ->8.7-->7.5->7.2-->7.3 --> 1 unit prbc 11/20; 11/28 --> ddimer remains elevated currently # Acute hypoxic resp failure- 2ry to COVID19 --> vent+ --> per id and pulm recs --> breathing treatments and rep cxr --> 11/15 cxr: New/increased infiltrates at the left lateral lung base # UTI c/w bacteremia --> abx per id # Cdiff colitis --> abx # MONICA, improving # Deep tissue injury (sacrum, L heel) # HTN # Dm2 # MDD # Dysphagia s/p GT # malnutrition # decubitus ulcer # non verbal # L MCA CVA 2ry to occlusion L ICA # [place] resident ([facility]) # Dvt ppx heparin sq The timing of this note does not necessarily reflect the time of the patient was seen. Greatly appreciate consultation. Subjective Allergies: Coded Allergies: No Known Allergies (Unverified , 09/16/19) All Systems: reviewed and negative except above Subjective 11/15 tele, no acute events, cxr and labs reviewed, nrb 15l, remdesivir 11/16 remains on iso, breathing is improved, no night sweats 11/17 remains with fever, cooling blankets, labs noted, no bleed hgb 8.8 11/19 icu, no acute events, vent, levo gtt, meds and labs reviewed 11/20 labs noted, no bleeding, in icu, hgb 7.5, to get one unit prbc, wbc elev 25 11/21 non verbal, s/p blood, hgb improved to 9.5, vent, iv abx 11/22 icu, no new changes, labs reviewed, levo gtt 11/23 labs are noted, no bleeding, in icu, on levo, wbc 27, hgb 9 11/24 nonverbal, no new changes, afebrile 11/26 nonverbal, in icu, on vent, wbc 20, hgb 8, no bleeding 11/[address], vent, lavonne as well, labs reviewed 11/28 nonverbal, icu, hbg 7, iv abx, 11/29 s/p 1 unit blood, hgb improved to 9.2, cxr reviewed 11/30 labs are noted, hgb is stable, nonverbal, on vent 12/01 icu, cxr reviewed, hgb 8.7, cefepime, vent 12/03 comatose, no bleeding, meds noted, hgb 7.5, no bleeding, with gtube feeds 12/04 on vent, abx, in icu, no bleeding, hgb 7.2, no hemolysis, gtube+ 12/05 obtunded, in icu, hgb7.3, no hemolysis, dw rn Memo Objective Objective Current Medications Medications (Trade) Dose Ordered Sig/Leonor Route PRN Reason Start Time Stop Time Status Last Admin Dose Admin Acetaminophen (Tylenol) 650 mg Q4H PRN GT fever 11/18/19 03:00 12/11/19 02:59 11/28/19 05:07 Allopurinol (allopurinoL) 300 mg DAILY GT 11/21/19 09:00 12/21/19 08:59 12/05/19 08:10 Chlorhexidine Gluconate (Danielle-Hex 2%) 1 applic DAILY@2000 TOPIC 11/18/19 20:00 02/16/20 19:59 12/05/19 19:46 Dextrose/Sodium Chloride 1,000 ml @ 50 mls/hr Q20H IV 11/22/19 10:15 12/20/19 10:14 12/05/19 18:00 Epoetin Marek (Epoetin Marek-EPBX(NON ESRD)) 10,000 unit THU-THU-THU SUBQ 12/05/19 21:00 03/04/20 20:59 12/05/19 19:46 Fidaxomicin (Dificid) 200 mg EVERY 12 HOURS ORAL 11/30/19 21:00 12/10/19 23:59 12/05/19 19:46 Heparin Sodium (Porcine) (Heparin 5000 units/ml) 5,000 units EVERY 12 HOURS SUBQ 11/18/19 09:00 12/26/19 08:59 12/05/19 19:47 Metoclopramide HCl (Reglan) 5 mg Q6HR IVP 12/01/19 12:00 12/31/19 11:59 12/06/19 04:50 Midodrine (Pro-Amatine) 10 mg Q8HR GT 12/03/19 14:00 02/20/20 13:59 12/06/19 04:50 Norepinephrine Bitartrate 8 mg/ Dextrose 558 ml @ 0 mls/hr Q24H IV 11/18/19 10:00 12/18/19 09:59 12/04/19 09:49 Ondansetron HCl (Zofran) 4 mg Q6H PRN IVP Nausea & Vomiting 11/18/19 03:00 12/11/19 08:59 Sevelamer Carbonate (Renvela) 800 mg Q12HR GT 11/29/19 21:00 02/20/20 07:59 12/05/19 19:46 Last 24 Hour Vital Signs Date Time Temp Pulse Resp B/P (MAP) Pulse Ox O2 Delivery O2 Flow Rate FiO2 12/06/19 06:00 71 17 117/52 (73) 100 12/06/19 05:00 71 16 121/61 (81) 100 12/06/19 04:00 98.0 69 16 133/59 (83) 98 12/06/19 04:00 76 12/06/19 04:00 Mechanical Ventilator 12/06/19 04:00 30 12/06/19 03:30 75 18 30 12/06/19 03:00 75 15 119/53 (75) 98 12/06/19 02:15 76 17 131/57 (81) 100 12/06/19 02:00 77 17 127/57 (80) 99 12/06/19 01:00 76 19 126/54 (78) 96 12/06/19 00:00 97.3 77 19 122/55 (77) 98 12/06/19 00:00 Mechanical Ventilator 12/06/19 00:00 30 12/05/19 23:44 73 12/05/19 23:30 77 17 30 12/05/19 23:00 75 19 126/58 (80) 99 12/05/19 22:00 80 19 134/56 (82) 99 12/05/19 21:00 81 20 133/68 (89) 98 12/05/19 20:00 82 12/05/19 20:00 Mechanical Ventilator 12/05/19 20:00 30 12/05/19 20:00 97.1 73 18 109/58 (75) 97 12/05/19 19:30 81 20 30 12/05/19 19:00 97 23 106/46 (66) 100 12/05/19 18:00 79 21 131/65 (87) 99 12/05/19 17:00 79 22 107/55 (72) 99 12/05/19 16:00 97.4 81 22 111/55 (73) 98 12/05/19 16:00 30 12/05/19 16:00 Mechanical Ventilator 12/05/19 15:34 83 12/05/19 15:15 80 21 30 12/05/19 15:06 83 20 113/58 (76) 99 12/05/19 14:00 81 21 112/62 (79) 99 12/05/19 13:00 80 12 117/55 (75) 99 12/05/19 12:00 81 12/05/19 12:00 Mechanical Ventilator 12/05/19 12:00 30 12/05/19 12:00 97.7 84 14 129/58 (81) 100 12/05/19 11:15 74 21 30 12/05/19 11:00 78 22 130/63 (85) 99 12/05/19 10:00 125/62 12/05/19 10:00 78 20 125/65 (85) 99 12/05/19 09:00 79 18 125/60 (81) 100 12/05/19 08:20 100 12/05/19 08:00 30 12/05/19 08:00 Mechanical Ventilator 12/05/19 08:00 97.8 80 20 128/68 (88) 100 12/05/19 07:55 71 12/05/19 07:15 78 20 30 12/05/19 07:00 79 20 127/62 (83) 100 12/05/19 06:30 78 20 137/67 (90) 100 12/05/19 06:00 76 20 132/64 (86) 100 12/05/19 05:30 74 20 136/66 (89) 100 12/05/19 05:00 70 20 119/66 (83) 100 12/05/19 04:30 77 19 130/60 (83) 100 12/05/19 04:00 97.3 81 19 133/74 (93) 100 12/05/19 04:00 30 12/05/19 04:00 70 12/05/19 04:00 Mechanical Ventilator 12/05/19 03:56 74 20 30 12/05/19 03:30 71 20 132/62 (85) 100 12/05/19 03:00 144/64 12/05/19 03:00 73 20 134/64 (87) 100 12/05/19 02:30 76 20 135/65 (88) 100 12/05/19 02:00 80 20 134/53 (80) 100 12/05/19 02:00 142/66 12/05/19 01:30 76 11 139/73 (95) 100 12/05/19 01:00 133/64 12/05/19 01:00 86 13 132/68 (89) 99 12/05/19 00:30 84 17 134/66 (88) 99 12/05/19 00:00 30 12/05/19 00:00 80 12/05/19 00:00 133/64 12/05/19 00:00 97.5 84 20 141/70 (93) 100 12/05/19 00:00 Mechanical Ventilator 12/04/19 23:52 82 21 30 12/04/19 23:00 84 20 133/63 (86) 99 12/04/19 23:00 140/64 12/04/19 22:30 85 19 141/73 (95) 99 12/04/19 22:07 137/73 12/04/19 22:00 20 137/73 (94) 99 12/04/19 21:30 83 21 135/69 (91) 99 12/04/19 21:00 83 21 123/69 (87) 99 12/04/19 21:00 123/69 12/04/19 21:00 Mechanical Ventilator 12/04/19 20:30 85 21 129/72 (91) 99 12/04/19 20:00 127/64 12/04/19 20:00 30 12/04/19 20:00 97.4 84 20 127/64 (85) 99 12/04/19 20:00 85 12/04/19 19:58 84 21 30 12/04/19 19:30 85 21 135/71 (92) 99 12/04/19 19:00 85 21 135/68 (90) 99 12/04/19 19:00 132/68 12/04/19 18:30 86 21 132/68 (89) 99 12/04/19 18:00 86 21 132/64 (86) 99 12/04/19 18:00 132/64 12/04/19 17:30 87 21 128/68 (88) 99 12/04/19 17:00 92 20 122/70 (87) 99 12/04/19 17:00 122/70 12/04/19 16:30 94 22 141/70 (93) 99 12/04/19 16:00 Mechanical Ventilator 12/04/19 16:00 97 12/04/19 16:00 149/76 12/04/19 16:00 97.2 96 21 149/76 (100) 99 12/04/19 16:00 30 12/04/19 15:30 96 22 148/80 (102) 99 12/04/19 15:00 129/69 12/04/19 15:00 97 21 129/69 (89) 99 12/04/19 14:30 99 20 159/81 (107) 99 12/04/19 14:30 159/81 12/04/19 14:30 85 20 30 12/04/19 14:00 160/80 12/04/19 14:00 101 20 160/99 (119) 99 12/04/19 13:30 101 20 155/78 (103) 99 12/04/19 13:00 151/79 12/04/19 13:00 103 20 140/79 (99) 99 12/04/19 12:45 106 12/04/19 12:30 129 20 109/78 (88) 98 12/04/19 12:07 130 12/04/19 12:00 96.8 138 20 92/66 (75) 97 12/04/19 12:00 146 12/04/19 12:00 Mechanical Ventilator 12/04/19 12:00 100/67 12/04/19 12:00 30 12/04/19 11:30 135 20 100/66 (77) 95 12/04/19 11:00 119/70 12/04/19 11:00 136 20 119/70 (86) 95 12/04/19 10:50 126 20 30 12/04/19 10:30 136 20 109/80 (90) 95 12/04/19 10:24 88/72 12/04/19 10:00 134 21 105/73 (84) 94 12/04/19 09:59 105/73 12/04/19 09:54 66/49 12/04/19 09:49 59/42 12/04/19 09:30 133 20 87/51 (63) 96 12/04/19 09:00 92 22 130/70 (90) 100 12/04/19 09:00 30 12/04/19 08:30 74 20 101/48 (65) 100 12/04/19 08:00 79 12/04/19 08:00 96.6 75 20 94/42 (59) 100 12/04/19 08:00 Mechanical Ventilator 12/04/19 07:30 75 20 88/44 (59) 100 Intake and Output 12/05/19 12/06/19 19:00 07:00 Intake Total 1190 ml 1070 ml Output Total 580 ml 340 ml Balance 610 ml 730 ml Free Water 100 ml 80 ml IV Total 650 ml 550 ml Tube Feeding 440 ml 440 ml Output Urine Total 480 ml 140 ml Stool Total 100 ml 200 ml Labs Test 12/03/19 15:10 12/04/19 04:00 12/05/19 05:00 12/05/19 11:14 Iron Level 16 ug/dL (50-175) Total Iron Binding Capacity 72 ug/dL (250-450) Percent Iron Saturation 22 % (15-50) Unsaturated Iron Binding 56 ug/dL (112-346) White Blood Count 11.5 K/UL (4.8-10.8) 11.6 K/UL (4.8-10.8) Red Blood Count 2.67 M/UL (4.70-6.10) 2.58 M/UL (4.70-6.10) Hemoglobin 7.5 G/DL (14.2-18.0) 7.2 G/DL (14.2-18.0) Hematocrit 24.5 % (42.0-52.0) 23.6 % (42.0-52.0) Mean Corpuscular Volume 92 FL (80-99) 92 FL (80-99) Mean Corpuscular Hemoglobin 28.2 PG (27.0-31.0) 28.1 PG (27.0-31.0) Mean Corpuscular Hemoglobin Concent 30.6 G/DL (32.0-36.0) 30.7 G/DL (32.0-36.0) Red Cell Distribution Width 16.2 % (11.6-14.8) 16.1 % (11.6-14.8) Platelet Count 191 K/UL (150-450) 176 K/UL (150-450) Mean Platelet Volume 6.5 FL (6.5-10.1) 6.4 FL (6.5-10.1) Neutrophils (%) (Auto) % (45.0-75.0) % (45.0-75.0) Lymphocytes (%) (Auto) % (20.0-45.0) % (20.0-45.0) Monocytes (%) (Auto) % (1.0-10.0) % (1.0-10.0) Eosinophils (%) (Auto) % (0.0-3.0) % (0.0-3.0) Basophils (%) (Auto) % (0.0-2.0) % (0.0-2.0) Differential Total Cells Counted 100 100 Neutrophils % (Manual) 84 % (45-75) 79 % (45-75) Lymphocytes % (Manual) 13 % (20-45) 17 % (20-45) Monocytes % (Manual) 3 % (1-10) 3 % (1-10) Eosinophils % (Manual) 0 % (0-3) 1 % (0-3) Basophils % (Manual) 0 % (0-2) 0 % (0-2) Band Neutrophils 0 % (0-8) 0 % (0-8) Platelet Estimate Adequate Adequate Platelet Morphology Normal Normal Hypochromasia 1+ 1+ Anisocytosis 1+ 1+ Sodium Level 147 MMOL/L (136-145) 148 MMOL/L (136-145) Potassium Level 3.5 MMOL/L (3.5-5.1) 3.3 MMOL/L (3.5-5.1) Chloride Level 117 MMOL/L (98-107) 115 MMOL/L (98-107) Carbon Dioxide Level 19 MMOL/L (21-32) 20 MMOL/L (21-32) Anion Gap 11 mmol/L (5-15) 14 mmol/L (5-15) Blood Urea Nitrogen 79 mg/dL (7-18) 71 mg/dL (7-18) Creatinine 3.0 MG/DL (0.55-1.30) 2.9 MG/DL (0.55-1.30) Estimat Glomerular Filtration Rate 20.7 mL/min (>60) 21.5 mL/min (>60) Glucose Level 110 MG/DL (74-106) 95 MG/DL (74-106) Calcium Level 7.4 MG/DL (8.5-10.1) 7.6 MG/DL (8.5-10.1) Phosphorus Level 4.5 MG/DL (2.5-4.9) 4.7 MG/DL (2.5-4.9) Magnesium Level 2.1 MG/DL (1.8-2.4) 2.1 MG/DL (1.8-2.4) Total Bilirubin 0.2 MG/DL (0.2-1.0) 0.2 MG/DL (0.2-1.0) Direct Bilirubin < 0.1 MG/DL (0.0-0.3) Aspartate Amino Transf (AST/SGOT) 40 U/L (15-37) 27 U/L (15-37) Alanine Aminotransferase (ALT/SGPT) 12 U/L (12-78) 10 U/L (12-78) Alkaline Phosphatase 93 U/L (46-116) 83 U/L (46-116) Total Protein 5.0 G/DL (6.4-8.2) 5.4 G/DL (6.4-8.2) Albumin 0.6 G/DL (3.4-5.0) 1.5 G/DL (3.4-5.0) C-Reactive Protein, Quantitative 8.8 mg/dL (0.00-0.90) Globulin 3.9 g/dL Albumin/Globulin Ratio 0.4 (1.0-2.7) Arterial Blood pH 7.334 (7.350-7.450) Arterial Blood Partial Pressure CO2 33.8 mmHg (35.0-45.0) Arterial Blood Partial Pressure O2 99.1 mmHg (75.0-100.0) Arterial Blood HCO3 17.6 mmol/L (22.0-26.0) Arterial Blood Oxygen Saturation 96.7 % (95-100) Arterial Blood Base Excess -7.5 (-2-2) Michael Test Positive Test 12/05/19 13:07 12/06/19 04:30 Arterial Blood pH 7.299 (7.350-7.450) Arterial Blood Partial Pressure CO2 34.1 mmHg (35.0-45.0) Arterial Blood Partial Pressure O2 85.4 mmHg (75.0-100.0) Arterial Blood HCO3 16.4 mmol/L (22.0-26.0) Arterial Blood Oxygen Saturation 94.9 % (95-100) Arterial Blood Base Excess -9.2 (-2-2) Michael Test Positive White Blood Count 11.1 K/UL (4.8-10.8) Red Blood Count 2.62 M/UL (4.70-6.10) Hemoglobin 7.3 G/DL (14.2-18.0) Hematocrit 23.9 % (42.0-52.0) Mean Corpuscular Volume 91 FL (80-99) Mean Corpuscular Hemoglobin 28.1 PG (27.0-31.0) Mean Corpuscular Hemoglobin Concent 30.8 G/DL (32.0-36.0) Red Cell Distribution Width 16.1 % (11.6-14.8) Platelet Count 199 K/UL (150-450) Mean Platelet Volume 6.7 FL (6.5-10.1) Neutrophils (%) (Auto) % (45.0-75.0) Lymphocytes (%) (Auto) % (20.0-45.0) Monocytes (%) (Auto) % (1.0-10.0) Eosinophils (%) (Auto) % (0.0-3.0) Basophils (%) (Auto) % (0.0-2.0) Sodium Level 149 MMOL/L (136-145) Potassium Level 3.4 MMOL/L (3.5-5.1) Chloride Level 118 MMOL/L (98-107) Carbon Dioxide Level 20 MMOL/L (21-32) Anion Gap 11 mmol/L (5-15) Blood Urea Nitrogen 71 mg/dL (7-18) Creatinine 2.9 MG/DL (0.55-1.30) Estimat Glomerular Filtration Rate 21.5 mL/min (>60) Glucose Level 83 MG/DL (74-106) Calcium Level 7.7 MG/DL (8.5-10.1) Phosphorus Level 4.8 MG/DL (2.5-4.9) Magnesium Level 2.1 MG/DL (1.8-2.4) Total Bilirubin 0.2 MG/DL (0.2-1.0) Aspartate Amino Transf (AST/SGOT) 30 U/L (15-37) Alanine Aminotransferase (ALT/SGPT) 11 U/L (12-78) Alkaline Phosphatase 78 U/L (46-116) Total Protein 5.2 G/DL (6.4-8.2) Albumin 1.3 G/DL (3.4-5.0) Globulin 3.9 g/dL Albumin/Globulin Ratio 0.3 (1.0-2.7) Height (Feet): 6 Height (Inches): 0.00 Weight (Pounds): 165 Objective PE General: alert, chronically Ill Heent: nc, at Neck: full range of motion, supple, no meningismus Respiratory: chest non-tender, decreased breath sounds, crackles, vent++ Cardiovascular: no murmur, tachycardia Gastrointestinal: normal bowel sounds, non tender,+peg Musculoskeletal: back normal, normal range of motion, gait/station normal Neurologic: no pronator Deng Flowers MD Dec 06, 2019 07:20
[2019-12-06] MEDS: Renvela 800mg Pkt GT SCH ×2 (08:57→21:03)
[2019-12-06] MEDS: Heparin 5000 units/ml inj SUBQ SCH ×2 (08:58→21:04)
[2019-12-06] MEDS: Norepinephrine Bitartrate 8 MG in D5W 500ml 550 ML IV SCH (10:00)
--- NOTE | 2019-12-06 10:51 | General Progress Note ---
Assessment/Plan Problem List: (1) DM (diabetes mellitus) ICD Codes: E11.9 - Type 2 diabetes mellitus without complications SNOMED: 66044357 (2) Dysphagia ICD Codes: R13.10 - Dysphagia, unspecified SNOMED: 34148494, 144648314 (3) Suspected COVID-19 virus infection ICD Codes: Z20.828 - Contact with and (suspected) exposure to other viral communicable diseases SNOMED: 204321191 (4) Respiratory failure with hypoxia ICD Codes: J96.91 - Respiratory failure, unspecified with hypoxia SNOMED: 85714226723691124 Qualifiers: Qualified Codes: J96.01 - Acute respiratory failure with hypoxia (5) Anemia ICD Codes: D64.9 - Anemia, unspecified SNOMED: 374133967 Qualifiers: Qualified Codes: D64.9 - Anemia, unspecified (6) UTI (urinary tract infection) ICD Codes: N39.0 - Urinary tract infection, site not specified SNOMED: 06285879 Qualifiers: Qualified Codes: N30.00 - Acute cystitis without hematuria (7) ARF (acute renal failure) ICD Codes: N17.9 - Acute kidney failure, unspecified SNOMED: 66521132 Qualifiers: Qualified Codes: N17.9 - Acute kidney failure, unspecified (8) DM (diabetes mellitus) ICD Codes: E11.9 - Type 2 diabetes mellitus without complications SNOMED: 03542950 (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 - Cerebral infarction due to unspecified occlusion or stenosis of left middle cerebral artery SNOMED: 026122794 (10) Sepsis ICD Codes: A41.9 - Sepsis, unspecified organism SNOMED: 69851532 Qualifiers: Qualified Codes: A41.9 - Sepsis, unspecified organism; R65.20 - Severe sepsis without septic shock; J96.01 - Acute respiratory failure with hypoxia (11) Decubitus skin ulcer ICD Codes: L89.90 - Pressure ulcer of unspecified site, unspecified stage SNOMED: 029741331 Status: unchanged Assessment/Plan: on reglan monitor for residuals GT flush fu labs ICU care failed weaning Subjective ROS Limited/Unobtainable: No Allergies: Coded Allergies: No Known Allergies (Unverified , 09/16/19) Objective Last 24 Hour Vital Signs Date Time Temp Pulse Resp B/P (MAP) Pulse Ox O2 Delivery O2 Flow Rate FiO2 12/06/19 10:00 83 18 118/52 (74) 97 12/06/19 09:00 87 17 90/53 (65) 97 12/06/19 08:49 100 12/06/19 08:20 30 12/06/19 08:00 Mechanical Ventilator 12/06/19 08:00 82 12/06/19 08:00 97.9 73 17 113/52 (72) 99 12/06/19 07:40 71 12/06/19 07:20 73 17 30 12/06/19 07:00 72 17 116/64 (81) 100 12/06/19 06:00 71 17 117/52 (73) 100 12/06/19 05:00 71 16 121/61 (81) 100 12/06/19 04:00 98.0 69 16 133/59 (83) 98 12/06/19 04:00 76 12/06/19 04:00 Mechanical Ventilator 12/06/19 04:00 30 12/06/19 03:30 75 18 30 12/06/19 03:00 75 15 119/53 (75) 98 12/06/19 02:15 76 17 131/57 (81) 100 12/06/19 02:00 77 17 127/57 (80) 99 12/06/19 01:00 76 19 126/54 (78) 96 12/06/19 00:00 97.3 77 19 122/55 (77) 98 12/06/19 00:00 Mechanical Ventilator 12/06/19 00:00 30 12/05/19 23:44 73 12/05/19 23:30 77 17 30 12/05/19 23:00 75 19 126/58 (80) 99 12/05/19 22:00 80 19 134/56 (82) 99 12/05/19 21:00 81 20 133/68 (89) 98 12/05/19 20:00 82 12/05/19 20:00 Mechanical Ventilator 12/05/19 20:00 30 12/05/19 20:00 97.1 73 18 109/58 (75) 97 12/05/19 19:30 81 20 30 12/05/19 19:00 97 23 106/46 (66) 100 12/05/19 18:00 79 21 131/65 (87) 99 12/05/19 17:00 79 22 107/55 (72) 99 12/05/19 16:00 97.4 81 22 111/55 (73) 98 12/05/19 16:00 30 12/05/19 16:00 Mechanical Ventilator 12/05/19 15:34 83 12/05/19 15:15 80 21 30 12/05/19 15:06 83 20 113/58 (76) 99 12/05/19 14:00 81 21 112/62 (79) 99 12/05/19 13:00 80 12 117/55 (75) 99 12/05/19 12:00 81 12/05/19 12:00 Mechanical Ventilator 12/05/19 12:00 30 12/05/19 12:00 97.7 84 14 129/58 (81) 100 12/05/19 11:15 74 21 30 12/05/19 11:00 78 22 130/63 (85) 99 Intake and Output 12/05/19 12/06/19 19:00 07:00 Intake Total 1190 ml 1160 ml Output Total 580 ml 360 ml Balance 610 ml 800 ml Free Water 100 ml 80 ml IV Total 650 ml 600 ml Tube Feeding 440 ml 480 ml Output Urine Total 480 ml 160 ml Stool Total 100 ml 200 ml Laboratory Tests 12/05/19 11:14: Arterial Blood pH 7.334L, Arterial Blood Partial Pressure CO2 33.8L, Arterial Blood Partial Pressure O2 99.1, Arterial Blood HCO3 17.6*L, Arterial Blood Oxygen Saturation 96.7, Arterial Blood Base Excess -7.5L, Michael Test Positive 12/05/19 13:07: Arterial Blood pH 7.299L, Arterial Blood Partial Pressure CO2 34.1L, Arterial Blood Partial Pressure O2 85.4, Arterial Blood HCO3 16.4*L, Arterial Blood Oxygen Saturation 94.9L, Arterial Blood Base Excess -9.2*L, Michael Test Positive 12/06/19 04:30: White Blood Count 11.1H, Red Blood Count 2.62L, Hemoglobin 7.3L, Hematocrit 23.9L, Mean Corpuscular Volume 91, Mean Corpuscular Hemoglobin 28.1, Mean Corpuscular Hemoglobin Concent 30.8L, Red Cell Distribution Width 16.1H, Platelet Count 199, Mean Platelet Volume 6.7, Neutrophils (%) (Auto) , Lymphocytes (%) (Auto) , Monocytes (%) (Auto) , Eosinophils (%) (Auto) , Basophils (%) (Auto) , Sodium Level 149H, Potassium Level 3.4L, Chloride Level 118H, Carbon Dioxide Level 20L, Anion Gap 11, Blood Urea Nitrogen 71H, Creatinine 2.9H, Estimat Glomerular Filtration Rate 21.5, Glucose Level 83, Calcium Level 7.7L, Phosphorus Level 4.8, Magnesium Level 2.1, Total Bilirubin 0.2, Aspartate Amino Transf (AST/SGOT) 30, Alanine Aminotransferase (ALT/SGPT) 11L, Alkaline Phosphatase 78, Total Protein 5.2L, Albumin 1.3L, Globulin 3.9, Albumin/Globulin Ratio 0.3L 12/06/19 08:04: Arterial Blood pH 7.296L, Arterial Blood Partial Pressure CO2 35.9, Arterial Blood Partial Pressure O2 95.1, Arterial Blood HCO3 17.1*L, Arterial Blood Oxygen Saturation 96.1, Arterial Blood Base Excess -8.6L, Michael Test Positive Height (Feet): 6 Height (Inches): 0.00 Weight (Pounds): 165 General Appearance: no apparent distress EENT: normal ENT inspection Neck: supple Cardiovascular: normal rate Respiratory/Chest: decreased breath sounds Abdomen: soft, hypoactive bowel sounds Extremities: non-tender Louie Fan MD Dec 06, 2019 10:51
--- NOTE | 2019-12-06 11:02 | Infectious Diseases Prog Note ---
Assessment/Plan Assessment/Plan Assessment: PEA arrest> unstable SVT s/p cardioversion 11/17 Septic shock- SP Fever, recurrent; SP Leukocytosis; fluctuating; improving -11/23 u/a wbc 15-20, nit neg, leuk +2; ucx C. lusitanae Bcx Neg -11/17 u/a no pyuria; ucx neg Bcx Neg sp cx PsA (R Zosyn; S Gentamycin, levaquin, Cefepime, ceftazidime, Meropenem), P. mirabilis ([place] S) Pneumonia Acute hypoxic resp failure- sp NRB 15L, now VDRF 11/17 - 2ry to COVID19 and superimposed bacterial PNA -11/28 CXR: Slight increased alveolar infiltrates. -11/24 CXR: Right basilar pleural effusion and likely parenchymal consolidation are unchanged sp cx MDR PSA (S Cefepime, Genta, Levaquin) -11/22 CXR: Slight increased right effusion. Right basilar infiltrate again noted. -11/19 CXR: There is been worsening of moderately consolidating right middle lobe pneumonia. -11/17 CXR: Bilateral lower lobe atelectasis/infiltrates, slightly increased. No large pleural effusions. -11/15 CXR: New/increased infiltrates at the left lateral lung base -11/11 CXR: Mild interstitial thickening is slightly improved. -11/10 CXR: Hazy basilar infiltrates left greater than right. sp cx PsA ([place] S), P.mirabilis ([facility] S), MRSA (S Vanco CARLOS 1, bactrim; R tetracycline ) -11/10 SARS-COV2 positive UTI c/w bacteremia -u/a wbc 5-10, nit neg, leuk +1, RBC TNCT; ucx 10-20k E. faecalis (S amp, vanco) -11/10 Bcx 2/4 E. faecalis (S Vancomycin, AMP) CONS bacteremia- likely contaminant -11/10 Bcx 2/ S. 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 Will continue to follow along with you. Discussed with RN and pharm Subjective Allergies: Coded Allergies: No Known Allergies (Unverified , 09/16/19) Subjective afebrile wbc improving off pressors Objective Vital Signs Last 24 Hour Vital Signs Date Time Temp Pulse Resp B/P (MAP) Pulse Ox O2 Delivery O2 Flow Rate FiO2 12/06/19 10:00 83 18 118/52 (74) 97 12/06/19 09:00 87 17 90/53 (65) 97 12/06/19 08:49 100 12/06/19 08:20 30 12/06/19 08:00 Mechanical Ventilator 12/06/19 08:00 82 12/06/19 08:00 97.9 73 17 113/52 (72) 99 12/06/19 07:40 71 12/06/19 07:20 73 17 30 12/06/19 07:00 72 17 116/64 (81) 100 12/06/19 06:00 71 17 117/52 (73) 100 12/06/19 05:00 71 16 121/61 (81) 100 12/06/19 04:00 98.0 69 16 133/59 (83) 98 12/06/19 04:00 76 12/06/19 04:00 Mechanical Ventilator 12/06/19 04:00 30 12/06/19 03:30 75 18 30 12/06/19 03:00 75 15 119/53 (75) 98 12/06/19 02:15 76 17 131/57 (81) 100 12/06/19 02:00 77 17 127/57 (80) 99 12/06/19 01:00 76 19 126/54 (78) 96 12/06/19 00:00 97.3 77 19 122/55 (77) 98 12/06/19 00:00 Mechanical Ventilator 12/06/19 00:00 30 12/05/19 23:44 73 12/05/19 23:30 77 17 30 12/05/19 23:00 75 19 126/58 (80) 99 12/05/19 22:00 80 19 134/56 (82) 99 12/05/19 21:00 81 20 133/68 (89) 98 12/05/19 20:00 82 12/05/19 20:00 Mechanical Ventilator 12/05/19 20:00 30 12/05/19 20:00 97.1 73 18 109/58 (75) 97 12/05/19 19:30 81 20 30 12/05/19 19:00 97 23 106/46 (66) 100 12/05/19 18:00 79 21 131/65 (87) 99 12/05/19 17:00 79 22 107/55 (72) 99 12/05/19 16:00 97.4 81 22 111/55 (73) 98 12/05/19 16:00 30 12/05/19 16:00 Mechanical Ventilator 12/05/19 15:34 83 12/05/19 15:15 80 21 30 12/05/19 15:06 83 20 113/58 (76) 99 12/05/19 14:00 81 21 112/62 (79) 99 12/05/19 13:00 80 12 117/55 (75) 99 12/05/19 12:00 81 12/05/19 12:00 Mechanical Ventilator 12/05/19 12:00 30 12/05/19 12:00 97.7 84 14 129/58 (81) 100 12/05/19 11:15 74 21 30 12/05/19 11:00 78 22 130/63 (85) 99 Height (Feet): 6 Height (Inches): 0.00 Weight (Pounds): 165 Objective Gen: critically ill HEENT: ETT in place Lungs: no tacypnea or use of accessory muscles Neuro: lethargic Laboratory Tests Test 12/05/19 11:14 12/05/19 13:07 12/06/19 04:30 12/06/19 08:04 Arterial Blood pH 7.334 (7.350-7.450) 7.299 (7.350-7.450) 7.296 (7.350-7.450) Arterial Blood Partial Pressure CO2 33.8 mmHg (35.0-45.0) L 34.1 mmHg (35.0-45.0) L 35.9 mmHg (35.0-45.0) Arterial Blood Partial Pressure O2 99.1 mmHg (75.0-100.0) 85.4 mmHg (75.0-100.0) 95.1 mmHg (75.0-100.0) Arterial Blood HCO3 17.6 mmol/L (22.0-26.0) *L 16.4 mmol/L (22.0-26.0) *L 17.1 mmol/L (22.0-26.0) *L Arterial Blood Oxygen Saturation 96.7 % (95-100) 94.9 % (95-100) L 96.1 % (95-100) Arterial Blood Base Excess -7.5 (-2-2) L -9.2 (-2-2) *L -8.6 (-2-2) L Michael Test Positive Positive Positive White Blood Count 11.1 K/UL (4.8-10.8) H Red Blood Count 2.62 M/UL (4.70-6.10) L Hemoglobin 7.3 G/DL (14.2-18.0) L Hematocrit 23.9 % (42.0-52.0) L Mean Corpuscular Volume 91 FL (80-99) Mean Corpuscular Hemoglobin 28.1 PG (27.0-31.0) Mean Corpuscular Hemoglobin Concent 30.8 G/DL (32.0-36.0) L Red Cell Distribution Width 16.1 % (11.6-14.8) H Platelet Count 199 K/UL (150-450) Mean Platelet Volume 6.7 FL (6.5-10.1) Neutrophils (%) (Auto) % (45.0-75.0) Lymphocytes (%) (Auto) % (20.0-45.0) Monocytes (%) (Auto) % (1.0-10.0) Eosinophils (%) (Auto) % (0.0-3.0) Basophils (%) (Auto) % (0.0-2.0) Sodium Level 149 MMOL/L (136-145) H Potassium Level 3.4 MMOL/L (3.5-5.1) L Chloride Level 118 MMOL/L (98-107) H Carbon Dioxide Level 20 MMOL/L (21-32) L Anion Gap 11 mmol/L (5-15) Blood Urea Nitrogen 71 mg/dL (7-18) H Creatinine 2.9 MG/DL (0.55-1.30) H Estimat Glomerular Filtration Rate 21.5 mL/min (>60) Glucose Level 83 MG/DL (74-106) Calcium Level 7.7 MG/DL (8.5-10.1) L Phosphorus Level 4.8 MG/DL (2.5-4.9) Magnesium Level 2.1 MG/DL (1.8-2.4) Total Bilirubin 0.2 MG/DL (0.2-1.0) Aspartate Amino Transf (AST/SGOT) 30 U/L (15-37) Alanine Aminotransferase (ALT/SGPT) 11 U/L (12-78) L Alkaline Phosphatase 78 U/L (46-116) Total Protein 5.2 G/DL (6.4-8.2) L Albumin 1.3 G/DL (3.4-5.0) L Globulin 3.9 g/dL Albumin/Globulin Ratio 0.3 (1.0-2.7) L Current Medications Medications (Trade) Dose Ordered Sig/Leonor Route PRN Reason Start Time Stop Time Status Last Admin Dose Admin Acetaminophen (Tylenol) 650 mg Q4H PRN GT fever 11/18/19 03:00 12/11/19 02:59 11/28/19 05:07 Allopurinol (allopurinoL) 300 mg DAILY GT 11/21/19 09:00 12/21/19 08:59 12/06/19 08:57 Chlorhexidine Gluconate (Danielle-Hex 2%) 1 applic DAILY@1999 TOPIC 11/18/19 20:00 02/16/20 19:59 12/05/19 19:46 Dextrose/Sodium Chloride 1,000 ml @ 50 mls/hr Q20H IV 11/22/19 10:15 12/20/19 10:14 12/05/19 18:00 Epoetin Marek (Epoetin Marek-EPBX(NON ESRD)) 10,000 unit THU-THU-THU SUBQ 12/05/19 21:00 03/04/20 20:59 12/05/19 19:46 Fidaxomicin (Dificid) 200 mg EVERY 12 HOURS ORAL 11/30/19 21:00 12/10/19 23:59 12/06/19 08:57 Heparin Sodium (Porcine) (Heparin 5000 units/ml) 5,000 units EVERY 12 HOURS SUBQ 11/18/19 09:00 12/26/19 08:59 12/06/19 08:58 Metoclopramide HCl (Reglan) 5 mg Q6HR IVP 12/01/19 12:00 12/31/19 11:59 12/06/19 04:50 Midodrine (Pro-Amatine) 10 mg Q8HR GT 12/03/19 14:00 02/20/20 13:59 12/06/19 04:50 Norepinephrine Bitartrate 8 mg/ Dextrose 558 ml @ 0 mls/hr Q24H IV 11/18/19 10:00 12/18/19 09:59 12/04/19 09:49 Ondansetron HCl (Zofran) 4 mg Q6H PRN IVP Nausea & Vomiting 11/18/19 03:00 12/11/19 08:59 Sevelamer Carbonate (Renvela) 800 mg Q12HR GT 11/29/19 21:00 02/20/20 07:59 12/06/19 08:57 Shannon Mark M.D. Dec 06, 2019 11:02
--- NOTE | 2019-12-06 11:44 | Pulmonolgy Critical Care Note ---
Critical Care - Asmt/Plan Problems: (1) Acute respiratory failure (2) Hypoxemic encephalopathy (3) Cardiac arrest (4) Bacteremia Assessment & Plan: enterocococus fecalis in blood. Proteus and Pseudomonas in sputum. (5) 2019 novel coronavirus disease (COVID-19) (6) ARF (acute renal failure) (7) Aspiration pneumonia (8) Ventricular tachyarrhythmia (9) DM (diabetes mellitus) Respiratory: monitor respiratory rate, adjust FIO2, CXR Cardiac: continue pressors, continue to monitor HR/BP Renal: F/U I&O, keep IV fluid, check electrolytes Infectious Disease: check cultures Gastrointestinal: continue feedings/current rate Endocrine: monitor blood sugar, continue sliding scale insulin Hematologic: transfuse if hgb<8.5 Neurologic: keep patient comfortable Prophylaxis: Protonix, Heparin Time Spent (Minutes): 40 Notes Reviewed: cardio, renal 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, consultants, outsole 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 aid 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 - Objective Last 24 Hour Vital Signs Date Time Temp Pulse Resp B/P (MAP) Pulse Ox O2 Delivery O2 Flow Rate FiO2 12/06/19 11:24 81 19 30 12/06/19 11:00 79 18 108/52 (70) 97 12/06/19 11:00 80 18 108/52 (70) 99 12/06/19 10:00 83 18 118/52 (74) 97 12/06/19 10:00 108/52 12/06/19 09:00 87 17 90/53 (65) 97 12/06/19 08:49 100 12/06/19 08:20 30 12/06/19 08:00 Mechanical Ventilator 12/06/19 08:00 82 12/06/19 08:00 97.9 73 17 113/52 (72) 99 12/06/19 07:40 71 12/06/19 07:20 73 17 30 12/06/19 07:00 72 17 116/64 (81) 100 12/06/19 06:00 71 17 117/52 (73) 100 12/06/19 05:00 71 16 121/61 (81) 100 12/06/19 04:00 98.0 69 16 133/59 (83) 98 12/06/19 04:00 76 12/06/19 04:00 Mechanical Ventilator 12/06/19 04:00 30 12/06/19 03:30 75 18 30 12/06/19 03:00 75 15 119/53 (75) 98 12/06/19 02:15 76 17 131/57 (81) 100 12/06/19 02:00 77 17 127/57 (80) 99 12/06/19 01:00 76 19 126/54 (78) 96 12/06/19 00:00 97.3 77 19 122/55 (77) 98 12/06/19 00:00 Mechanical Ventilator 12/06/19 00:00 30 12/05/19 23:44 73 12/05/19 23:30 77 17 30 12/05/19 23:00 75 19 126/58 (80) 99 12/05/19 22:00 80 19 134/56 (82) 99 12/05/19 21:00 81 20 133/68 (89) 98 12/05/19 20:00 82 12/05/19 20:00 Mechanical Ventilator 12/05/19 20:00 30 12/05/19 20:00 97.1 73 18 109/58 (75) 97 12/05/19 19:30 81 20 30 12/05/19 19:00 97 23 106/46 (66) 100 12/05/19 18:00 79 21 131/65 (87) 99 12/05/19 17:00 79 22 107/55 (72) 99 12/05/19 16:00 97.4 81 22 111/55 (73) 98 12/05/19 16:00 30 12/05/19 16:00 Mechanical Ventilator 12/05/19 15:34 83 12/05/19 15:15 80 21 30 12/05/19 15:06 83 20 113/58 (76) 99 12/05/19 14:00 81 21 112/62 (79) 99 12/05/19 13:00 80 12 117/55 (75) 99 12/05/19 12:00 81 12/05/19 12:00 Mechanical Ventilator 12/05/19 12:00 30 12/05/19 12:00 97.7 84 14 129/58 (81) 100 Status: obtunded Condition: critical HEENT: atraumatic, normocephalic Lungs: rales, rhonchi Heart: HR/BP stable Abdomen: soft, non-tender Extremities: no C/C/E Critical Care - Subjective ROS Limited/Unobtainable: Yes Interval Events: d/w Radiologist about CT head results. FI02: 30 Vent Support Breath Rate: 16 Vent Support Mode: AC Vent Tidal Volume: 550 Sputum Amount: Small PEEP: 5.0 PIP: 26 Tube Feeding Amount: 40 I&O: Intake and Output 12/05/19 12/06/19 19:00 07:00 Intake Total 1190 ml 1160 ml Output Total 580 ml 360 ml Balance 610 ml 800 ml Free Water 100 ml 80 ml IV Total 650 ml 600 ml Tube Feeding 440 ml 480 ml Output Urine Total 480 ml 160 ml Stool Total 100 ml 200 ml ET-Tube: 8.0 ET Position: 23 Labs: Laboratory Tests Test 12/05/19 13:07 12/06/19 04:30 12/06/19 08:04 Arterial Blood pH 7.299 (7.350-7.450) 7.296 (7.350-7.450) Arterial Blood Partial Pressure CO2 34.1 mmHg (35.0-45.0) L 35.9 mmHg (35.0-45.0) Arterial Blood Partial Pressure O2 85.4 mmHg (75.0-100.0) 95.1 mmHg (75.0-100.0) Arterial Blood HCO3 16.4 mmol/L (22.0-26.0) *L 17.1 mmol/L (22.0-26.0) *L Arterial Blood Oxygen Saturation 94.9 % (95-100) L 96.1 % (95-100) Arterial Blood Base Excess -9.2 (-2-2) *L -8.6 (-2-2) L Michael Test Positive Positive White Blood Count 11.1 K/UL (4.8-10.8) H Red Blood Count 2.62 M/UL (4.70-6.10) L Hemoglobin 7.3 G/DL (14.2-18.0) L Hematocrit 23.9 % (42.0-52.0) L Mean Corpuscular Volume 91 FL (80-99) Mean Corpuscular Hemoglobin 28.1 PG (27.0-31.0) Mean Corpuscular Hemoglobin Concent 30.8 G/DL (32.0-36.0) L Red Cell Distribution Width 16.1 % (11.6-14.8) H Platelet Count 199 K/UL (150-450) Mean Platelet Volume 6.7 FL (6.5-10.1) Neutrophils (%) (Auto) % (45.0-75.0) Lymphocytes (%) (Auto) % (20.0-45.0) Monocytes (%) (Auto) % (1.0-10.0) Eosinophils (%) (Auto) % (0.0-3.0) Basophils (%) (Auto) % (0.0-2.0) Sodium Level 149 MMOL/L (136-145) H Potassium Level 3.4 MMOL/L (3.5-5.1) L Chloride Level 118 MMOL/L (98-107) H Carbon Dioxide Level 20 MMOL/L (21-32) L Anion Gap 11 mmol/L (5-15) Blood Urea Nitrogen 71 mg/dL (7-18) H Creatinine 2.9 MG/DL (0.55-1.30) H Estimat Glomerular Filtration Rate 21.5 mL/min (>60) Glucose Level 83 MG/DL (74-106) Calcium Level 7.7 MG/DL (8.5-10.1) L Phosphorus Level 4.8 MG/DL (2.5-4.9) Magnesium Level 2.1 MG/DL (1.8-2.4) Total Bilirubin 0.2 MG/DL (0.2-1.0) Aspartate Amino Transf (AST/SGOT) 30 U/L (15-37) Alanine Aminotransferase (ALT/SGPT) 11 U/L (12-78) L Alkaline Phosphatase 78 U/L (46-116) Total Protein 5.2 G/DL (6.4-8.2) L Albumin 1.3 G/DL (3.4-5.0) L Globulin 3.9 g/dL Albumin/Globulin Ratio 0.3 (1.0-2.7) L Ayana Ndiaye MD Dec 06, 2019 11:44
--- NOTE | 2019-12-06 13:25 | General Progress Note ---
Assessment/Plan Problem List: (1) DM (diabetes mellitus) ICD Codes: E11.9 - Type 2 diabetes mellitus without complications SNOMED: 74458692 (2) ARF (acute renal failure) ICD Codes: N17.9 - Acute kidney failure, unspecified SNOMED: 16251650 Qualifiers: Qualified Codes: N17.9 - Acute kidney failure, unspecified (3) Aspiration pneumonia ICD Codes: J69.0 - Pneumonitis due to inhalation of food and vomit SNOMED: 620330707 (4) UTI (urinary tract infection) ICD Codes: N39.0 - Urinary tract infection, site not specified SNOMED: 26371786 Qualifiers: Qualified Codes: N30.00 - Acute cystitis without hematuria (5) Hypertension ICD Codes: I10 - Essential (primary) hypertension SNOMED: 27215503 (6) Anemia ICD Codes: D64.9 - Anemia, unspecified SNOMED: 152784387 Qualifiers: Qualified Codes: D64.9 - Anemia, unspecified (7) Respiratory failure with hypoxia ICD Codes: J96.91 - Respiratory failure, unspecified with hypoxia SNOMED: 06465359710564094 Qualifiers: Qualified Codes: J96.01 - Acute respiratory failure with hypoxia (8) Suspected COVID-19 virus infection ICD Codes: Z20.828 - Contact with and (suspected) exposure to other viral communicable diseases SNOMED: 712722424 Status: unchanged Assessment/Plan: vent abx pt diet cbc bmp am Subjective Constitutional: Reports: weakness Allergies: Coded Allergies: No Known Allergies (Unverified , 09/16/19) All Systems: reviewed and negative except above Subjective intubated sedated in icu Objective Last 24 Hour Vital Signs Date Time Temp Pulse Resp B/P (MAP) Pulse Ox O2 Delivery O2 Flow Rate FiO2 12/06/19 13:00 97.9 74 17 108/58 (75) 100 12/06/19 12:00 Mechanical Ventilator 12/06/19 12:00 30 12/06/19 12:00 74 18 115/64 (81) 100 12/06/19 12:00 78 12/06/19 11:24 81 19 30 12/06/19 11:00 79 18 108/52 (70) 97 12/06/19 11:00 80 18 108/52 (70) 99 12/06/19 10:00 83 18 118/52 (74) 97 12/06/19 10:00 108/52 12/06/19 09:00 87 17 90/53 (65) 97 12/06/19 08:49 100 12/06/19 08:35 30 12/06/19 08:20 30 12/06/19 08:00 Mechanical Ventilator 12/06/19 08:00 82 12/06/19 08:00 97.9 73 17 113/52 (72) 99 12/06/19 07:40 71 12/06/19 07:20 73 17 30 12/06/19 07:00 72 17 116/64 (81) 100 12/06/19 06:00 71 17 117/52 (73) 100 12/06/19 05:00 71 16 121/61 (81) 100 12/06/19 04:00 98.0 69 16 133/59 (83) 98 12/06/19 04:00 76 12/06/19 04:00 Mechanical Ventilator 12/06/19 04:00 30 12/06/19 03:30 75 18 30 12/06/19 03:00 75 15 119/53 (75) 98 12/06/19 02:15 76 17 131/57 (81) 100 12/06/19 02:00 77 17 127/57 (80) 99 12/06/19 01:00 76 19 126/54 (78) 96 12/06/19 00:00 97.3 77 19 122/55 (77) 98 12/06/19 00:00 Mechanical Ventilator 12/06/19 00:00 30 12/05/19 23:44 73 12/05/19 23:30 77 17 30 12/05/19 23:00 75 19 126/58 (80) 99 12/05/19 22:00 80 19 134/56 (82) 99 12/05/19 21:00 81 20 133/68 (89) 98 12/05/19 20:00 82 12/05/19 20:00 Mechanical Ventilator 12/05/19 20:00 30 12/05/19 20:00 97.1 73 18 109/58 (75) 97 12/05/19 19:30 81 20 30 12/05/19 19:00 97 23 106/46 (66) 100 12/05/19 18:00 79 21 131/65 (87) 99 12/05/19 17:00 79 22 107/55 (72) 99 12/05/19 16:00 97.4 81 22 111/55 (73) 98 12/05/19 16:00 30 12/05/19 16:00 Mechanical Ventilator 12/05/19 15:34 83 12/05/19 15:15 80 21 30 12/05/19 15:06 83 20 113/58 (76) 99 12/05/19 14:00 81 21 112/62 (79) 99 Intake and Output 12/05/19 12/06/19 19:00 07:00 Intake Total 1190 ml 1160 ml Output Total 580 ml 360 ml Balance 610 ml 800 ml Free Water 100 ml 80 ml IV Total 650 ml 600 ml Tube Feeding 440 ml 480 ml Output Urine Total 480 ml 160 ml Stool Total 100 ml 200 ml Laboratory Tests 12/06/19 04:30: White Blood Count 11.1H, Red Blood Count 2.62L, Hemoglobin 7.3L, Hematocrit 23.9L, Mean Corpuscular Volume 91, Mean Corpuscular Hemoglobin 28.1, Mean Corpuscular Hemoglobin Concent 30.8L, Red Cell Distribution Width 16.1H, Platelet Count 199, Mean Platelet Volume 6.7, Neutrophils (%) (Auto) , Lymphocytes (%) (Auto) , Monocytes (%) (Auto) , Eosinophils (%) (Auto) , Basophils (%) (Auto) , Sodium Level 149H, Potassium Level 3.4L, Chloride Level 118H, Carbon Dioxide Level 20L, Anion Gap 11, Blood Urea Nitrogen 71H, Creatinine 2.9H, Estimat Glomerular Filtration Rate 21.5, Glucose Level 83, Calcium Level 7.7L, Phosphorus Level 4.8, Magnesium Level 2.1, Total Bilirubin 0.2, Aspartate Amino Transf (AST/SGOT) 30, Alanine Aminotransferase (ALT/SGPT) 11L, Alkaline Phosphatase 78, Total Protein 5.2L, Albumin 1.3L, Globulin 3.9, Albumin/Globulin Ratio 0.3L 12/06/19 08:04: Arterial Blood pH 7.296L, Arterial Blood Partial Pressure CO2 35.9, Arterial Blood Partial Pressure O2 95.1, Arterial Blood HCO3 17.1*L, Arterial Blood Oxygen Saturation 96.1, Arterial Blood Base Excess -8.6L, Michael Test Positive Height (Feet): 6 Height (Inches): 0.00 Weight (Pounds): 165 General Appearance: lethargic EENT: normal ENT inspection Neck: normal alignment Cardiovascular: normal rate, regular rhythm Respiratory/Chest: no respiratory distress, no accessory muscle use Extremities: normal inspection Skin: normal pigmentation Juan Singh DO Dec 06, 2019 13:25
--- NOTE | 2019-12-06 13:25 | Nephrology Progress Note ---
Assessment/Plan Problem List: (1) ARF (acute renal failure) (2) Hyperkalemia (3) DM (diabetes mellitus) (4) Suspected COVID-19 virus infection (5) Sepsis (6) Severe malnutrition Assessment: Severe hypoalbuminemia Assessment his 74-year-old male with multiple Multiple medical problem presents with respiratory symptoms and diarrhea Renal failure most likely prerenal azotemia secondary to dehydration Hyperkalemia on presentation also secondary to dehydration Sepsis pneumonia hypoxia UTI Anemia History of hypertension History of diabetes mellitus Suspected COVID-19 virus infection Hypoalbuminemia Plan C. difficile positive COVID-19 detected December 05: Creatinine unchanged. Will give a trial of albumin 25% every 8 hours 3 doses. Potassium supplement. Continue per consultants. December 04: Serum creatinine 2.9. Hemoglobin remains low. No need for dialysis treatment today. Continue to monitor renal parameters and intake and output. December 03: Serum creatinine 3. Hemoglobin lower. On low-dose pressors today. Continue to monitor renal parameters. Watch if needed dialysis. Trial of albumin 25%. December 02: Serum creatinine remains at 2.9. Anemia worsened. Iron panel ferritin ordered. 1 dose of Venofer 200 mg ordered. Subcutaneous Epogen started. Continues to be full code intubated on ventilator. No need for dialysis treatment at this time since serum creatinine appears to be stable. December 01: Serum creatinine gaudencio to 2.9. Continue to monitor renal parameters, urine output, and avoid nephrotoxic's as possible. November 30: Serum creatinine remains stable. Will discontinue calcium supplements. Continue per current treatment plan. No dialysis needed. November 29: Serum creatinine stable. Off pressors. No dialysis needed today. Discussed with JUSTINO Hernandez. Continue per consultants. November 28: Serum creatinine unchanged. Off pressors. Potassium supplement intravenously ordered. Discussed with JUSTINO Evans. No need for dialysis today. Continue to monitor renal parameters. Change midodrine from PRN to scheduled every 8 hours. November 27: Labs reviewed. No dialysis today. Discussed with RN. Potassium supplement given. Continue to monitor renal parameters. Continue per consultants. November 26: Lab reviewed. Remains full code. Remains intubated. Midodrin changed to PRN. Electrolytes acceptable. Will monitor renal parameters and urine output and dialyze as needed. November 25: Dialyzed yesterday. Lab reviewed. Remains full code. Remains intubated on ventilator. On minimal dose of pressors. 20 mEq potassium chloride IV ordered for low potassium level. November 24: Patient remains intubated. Due for dialysis today. Labs reviewed. Continues to be full code. November 23: Patient was dialyzed yesterday. Labs reviewed. Status quo. Remains full code. Will arrange for dialysis tomorrow. November 22: Patient in ICU. Intubated on ventilator. On low-dose pressors. Urine output labile. Serum creatinine rising. Patient developing acute renal failure. Need urgent dialysis treatment. Will arrange for placement of non- tunneled dialysis catheter as soon as possible. RN states that no family member or next of kin could be contacted at this time. Due to the urgency of the problem and the patient being full code will proceed with placement of dialysis catheter and dialysis treatment as soon as possible. November 21: Patient continues to do poorly. Discussed with RN. Started on Midodrin for BP support. Nephro feeding started. Phosphorus binders started. IV calcium ordered. Continue to monitor renal parameters and urine output. Continue per consultants. Patient remains full code. Per orders. November 20: Serum creatinine continuing to rise. Remains of 100 cc an hour IV fluid. Urine output remains low. Blood pressure also borderline low, on pressors. Continue per consultants. Continue to monitor renal parameters and urine output. Continue to avoid nephrotoxic's. Further deterioration of renal function may lead to dialysis treatment. Will discuss with PMD. November 19: Serum creatinine rising. Urine output decreasing. Will change to IV, D5 normal saline. Will give albumin bolus followed by Lasix 40 mg IV push. Continue to monitor renal parameters and urine output. Continue to avoid nephrotoxic medications as possible. Today's vancomycin level was 22. November 18: Serum creatinine rising. Continues to be full code. Continues to be intubated on ventilator. Remains on IV fluids. Vancomycin levels per pharmacy. Prognosis poor due to sepsis. November 17: Intubated on ventilator in ICU. Will continue half-normal saline 100 cc an hour. Continue per pulmonary and ID. Prognosis poor. Continue to monitor renal parameters. Hydrate with half-normal saline, serum creatinine now at its lowest today. monitor electrolytes Will change the feeding to Nepro and monitor her potassium and other electrolytes Continue per ID Keep the blood pressure and blood sugar in check Monitor renal parameters Previously: Urine studies Monitor intake and output Cultures including stool for C. difficile Per orders Patient's CODE STATUS is full Subjective ROS Limited/Unobtainable: Yes Objective Objective Last 24 Hour Vital Signs Date Time Temp Pulse Resp B/P (MAP) Pulse Ox O2 Delivery O2 Flow Rate FiO2 12/06/19 13:00 97.9 74 17 108/58 (75) 100 12/06/19 12:00 Mechanical Ventilator 12/06/19 12:00 30 12/06/19 12:00 74 18 115/64 (81) 100 12/06/19 12:00 78 12/06/19 11:24 81 19 30 12/06/19 11:00 79 18 108/52 (70) 97 12/06/19 11:00 80 18 108/52 (70) 99 12/06/19 10:00 83 18 118/52 (74) 97 12/06/19 10:00 108/52 12/06/19 09:00 87 17 90/53 (65) 97 12/06/19 08:49 100 12/06/19 08:35 30 12/06/19 08:20 30 12/06/19 08:00 Mechanical Ventilator 12/06/19 08:00 82 12/06/19 08:00 97.9 73 17 113/52 (72) 99 12/06/19 07:40 71 12/06/19 07:20 73 17 30 12/06/19 07:00 72 17 116/64 (81) 100 12/06/19 06:00 71 17 117/52 (73) 100 12/06/19 05:00 71 16 121/61 (81) 100 12/06/19 04:00 98.0 69 16 133/59 (83) 98 12/06/19 04:00 76 12/06/19 04:00 Mechanical Ventilator 12/06/19 04:00 30 12/06/19 03:30 75 18 30 12/06/19 03:00 75 15 119/53 (75) 98 12/06/19 02:15 76 17 131/57 (81) 100 12/06/19 02:00 77 17 127/57 (80) 99 12/06/19 01:00 76 19 126/54 (78) 96 12/06/19 00:00 97.3 77 19 122/55 (77) 98 12/06/19 00:00 Mechanical Ventilator 12/06/19 00:00 30 12/05/19 23:44 73 12/05/19 23:30 77 17 30 12/05/19 23:00 75 19 126/58 (80) 99 12/05/19 22:00 80 19 134/56 (82) 99 12/05/19 21:00 81 20 133/68 (89) 98 12/05/19 20:00 82 12/05/19 20:00 Mechanical Ventilator 12/05/19 20:00 30 12/05/19 20:00 97.1 73 18 109/58 (75) 97 12/05/19 19:30 81 20 30 12/05/19 19:00 97 23 106/46 (66) 100 12/05/19 18:00 79 21 131/65 (87) 99 12/05/19 17:00 79 22 107/55 (72) 99 12/05/19 16:00 97.4 81 22 111/55 (73) 98 12/05/19 16:00 30 12/05/19 16:00 Mechanical Ventilator 12/05/19 15:34 83 12/05/19 15:15 80 21 30 12/05/19 15:06 83 20 113/58 (76) 99 12/05/19 14:00 81 21 112/62 (79) 99 Intake and Output 12/05/19 12/06/19 19:00 07:00 Intake Total 1190 ml 1160 ml Output Total 580 ml 360 ml Balance 610 ml 800 ml Free Water 100 ml 80 ml IV Total 650 ml 600 ml Tube Feeding 440 ml 480 ml Output Urine Total 480 ml 160 ml Stool Total 100 ml 200 ml Laboratory Tests 12/06/19 04:30: White Blood Count 11.1H, Red Blood Count 2.62L, Hemoglobin 7.3L, Hematocrit 23.9L, Mean Corpuscular Volume 91, Mean Corpuscular Hemoglobin 28.1, Mean Corpuscular Hemoglobin Concent 30.8L, Red Cell Distribution Width 16.1H, Platelet Count 199, Mean Platelet Volume 6.7, Neutrophils (%) (Auto) , Lymphocytes (%) (Auto) , Monocytes (%) (Auto) , Eosinophils (%) (Auto) , Basophils (%) (Auto) , Sodium Level 149H, Potassium Level 3.4L, Chloride Level 118H, Carbon Dioxide Level 20L, Anion Gap 11, Blood Urea Nitrogen 71H, Creatinine 2.9H, Estimat Glomerular Filtration Rate 21.5, Glucose Level 83, Calcium Level 7.7L, Phosphorus Level 4.8, Magnesium Level 2.1, Total Bilirubin 0.2, Aspartate Amino Transf (AST/SGOT) 30, Alanine Aminotransferase (ALT/SGPT) 11L, Alkaline Phosphatase 78, Total Protein 5.2L, Albumin 1.3L, Globulin 3.9, Albumin/Globulin Ratio 0.3L 12/06/19 08:04: Arterial Blood pH 7.296L, Arterial Blood Partial Pressure CO2 35.9, Arterial Blood Partial Pressure O2 95.1, Arterial Blood HCO3 17.1*L, Arterial Blood Oxygen Saturation 96.1, Arterial Blood Base Excess -8.6L, Michael Test Positive Height (Feet): 6 Height (Inches): 0.00 Weight (Pounds): 165 EENT: other - Intubated on ventilator Cardiovascular: tachycardia Respiratory/Chest: decreased breath sounds Abdomen: soft Objective No other change Ricardo Choudhary MD Dec 06, 2019 13:25
[2019-12-06] MEDS: D5NS 1,000 ML IV SCH (13:55)
--- NOTE | 2019-12-06 14:07 | Diagnostic Imaging Report ---
Procedure: XRAY Chest 1v Reason for study: Reason For Exam: [id number] Comparison films: 12/01/2019. FINDINGS: Endotracheal tube and right central venous catheter remain in place. Vascularity is normal. There is slight increase in hazy left lung infiltrates. Right basilar infiltrate also increased. Cardiac and mediastinal silhouette are within normal limits. Right effusion again noted. The bony thorax appear unremarkable. IMPRESSION: Slight increase bilateral infiltrates.
--- NOTE | 2019-12-06 17:27 | Cardiology Progress Note ---
Assessment/Plan Assessment/Plan 1. covid 19 pneumonia 2. History of cerebrovascular accident. 3. History of carotid occlusion. 4. Bilateral infiltrates and pneumonia. 5. Aphasia. 6. Diabetes mellitus. 7. Hyponatremia. 8. Renal insufficiency 9. 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 asystolic arrest probably aspiration with subequent hypoxemia relasted 12. aspiration per er md ross intubation " There was significant gastric contents in the patient's pharynx." 13 septic shock 14. AFIB to sinus remains on a vent dialysis prn afib converted to sinus spont not able to wean abx per ID s/p resmeidivir tele sinus tachy no afib overal prognosis poor Subjective ROS Limited/Unobtainable: Yes Subjective endotracheal and oral suctioning done by rn , per rn: Afebrile. Patient is comatose in bed. No changes in neuro status. Will continue to monitor. Objective Last 24 Hour Vital Signs Date Time Temp Pulse Resp B/P (MAP) Pulse Ox O2 Delivery O2 Flow Rate FiO2 12/06/19 16:00 30 12/06/19 16:00 Mechanical Ventilator 12/06/19 16:00 78 18 115/55 (75) 98 12/06/19 15:41 76 17 30 12/06/19 15:28 76 12/06/19 15:00 72 17 117/60 (79) 100 12/06/19 14:00 76 18 104/58 (73) 100 12/06/19 13:00 98.1 74 17 108/58 (75) 100 12/06/19 12:00 Mechanical Ventilator 12/06/19 12:00 30 12/06/19 12:00 74 18 115/64 (81) 100 12/06/19 12:00 78 12/06/19 11:24 81 19 30 12/06/19 11:00 79 18 108/52 (70) 97 12/06/19 11:00 80 18 108/52 (70) 99 12/06/19 10:00 83 18 118/52 (74) 97 12/06/19 10:00 108/52 12/06/19 09:00 87 17 90/53 (65) 97 12/06/19 08:49 100 12/06/19 08:35 30 12/06/19 08:20 30 6/23/20 08:00 Mechanical Ventilator 12/06/19 08:00 82 12/06/19 08:00 97.9 73 17 113/52 (72) 99 12/06/19 07:40 71 12/06/19 07:20 73 17 30 12/06/19 07:00 72 17 116/64 (81) 100 12/06/19 06:00 71 17 117/52 (73) 100 12/06/19 05:00 71 16 121/61 (81) 100 12/06/19 04:00 98.0 69 16 133/59 (83) 98 12/06/19 04:00 76 12/06/19 04:00 Mechanical Ventilator 12/06/19 04:00 30 12/06/19 03:30 75 18 30 12/06/19 03:00 75 15 119/53 (75) 98 12/06/19 02:15 76 17 131/57 (81) 100 12/06/19 02:00 77 17 127/57 (80) 99 12/06/19 01:00 76 19 126/54 (78) 96 12/06/19 00:00 97.3 77 19 122/55 (77) 98 12/06/19 00:00 Mechanical Ventilator 12/06/19 00:00 30 12/05/19 23:44 73 12/05/19 23:30 77 17 30 12/05/19 23:00 75 19 126/58 (80) 99 12/05/19 22:00 80 19 134/56 (82) 99 12/05/19 21:00 81 20 133/68 (89) 98 12/05/19 20:00 82 12/05/19 20:00 Mechanical Ventilator 12/05/19 20:00 30 12/05/19 20:00 97.1 73 18 109/58 (75) 97 12/05/19 19:30 81 20 30 12/05/19 19:00 97 23 106/46 (66) 100 12/05/19 18:00 79 21 131/65 (87) 99 General Appearance: no apparent distress, on vent, patient on isolation, isolation precautions Intake and Output 12/05/19 12/06/19 19:00 07:00 Intake Total 1190 ml 1160 ml Output Total 580 ml 360 ml Balance 610 ml 800 ml Free Water 100 ml 80 ml IV Total 650 ml 600 ml Tube Feeding 440 ml 480 ml Output Urine Total 480 ml 160 ml Stool Total 100 ml 200 ml Laboratory Tests Test 12/06/19 04:30 12/06/19 08:04 White Blood Count 11.1 K/UL (4.8-10.8) H Red Blood Count 2.62 M/UL (4.70-6.10) L Hemoglobin 7.3 G/DL (14.2-18.0) L Hematocrit 23.9 % (42.0-52.0) L Mean Corpuscular Volume 91 FL (80-99) Mean Corpuscular Hemoglobin 28.1 PG (27.0-31.0) Mean Corpuscular Hemoglobin Concent 30.8 G/DL (32.0-36.0) L Red Cell Distribution Width 16.1 % (11.6-14.8) H Platelet Count 199 K/UL (150-450) Mean Platelet Volume 6.7 FL (6.5-10.1) Neutrophils (%) (Auto) % (45.0-75.0) Lymphocytes (%) (Auto) % (20.0-45.0) Monocytes (%) (Auto) % (1.0-10.0) Eosinophils (%) (Auto) % (0.0-3.0) Basophils (%) (Auto) % (0.0-2.0) Sodium Level 149 MMOL/L (136-145) H Potassium Level 3.4 MMOL/L (3.5-5.1) L Chloride Level 118 MMOL/L (98-107) H Carbon Dioxide Level 20 MMOL/L (21-32) L Anion Gap 11 mmol/L (5-15) Blood Urea Nitrogen 71 mg/dL (7-18) H Creatinine 2.9 MG/DL (0.55-1.30) H Estimat Glomerular Filtration Rate 21.5 mL/min (>60) Glucose Level 83 MG/DL (74-106) Calcium Level 7.7 MG/DL (8.5-10.1) L Phosphorus Level 4.8 MG/DL (2.5-4.9) Magnesium Level 2.1 MG/DL (1.8-2.4) Total Bilirubin 0.2 MG/DL (0.2-1.0) Aspartate Amino Transf (AST/SGOT) 30 U/L (15-37) Alanine Aminotransferase (ALT/SGPT) 11 U/L (12-78) L Alkaline Phosphatase 78 U/L (46-116) Total Protein 5.2 G/DL (6.4-8.2) L Albumin 1.3 G/DL (3.4-5.0) L Globulin 3.9 g/dL Albumin/Globulin Ratio 0.3 (1.0-2.7) L Arterial Blood pH 7.296 (7.350-7.450) Arterial Blood Partial Pressure CO2 35.9 mmHg (35.0-45.0) Arterial Blood Partial Pressure O2 95.1 mmHg (75.0-100.0) Arterial Blood HCO3 17.1 mmol/L (22.0-26.0) *L Arterial Blood Oxygen Saturation 96.1 % (95-100) Arterial Blood Base Excess -8.6 (-2-2) L Michael Test Positive Objective pt seen but nto examined due to covid remain positive per dr orellana noatation Lungs: rales, rhonchi Heart: HR/BP stable Abdomen: soft, non-tender Extremities: no C/C/E Chris Melgar MD Dec 06, 2019 17:27
--- NOTE | 2019-12-06 18:37 | Surgery Progress Note ---
Surgery Progress Note Subjective Additional Comments Leukocytosis, anemia, exam unchanged Objective Last 24 Hour Vital Signs Date Time Temp Pulse Resp B/P (MAP) Pulse Ox O2 Delivery O2 Flow Rate FiO2 12/06/19 18:00 79 20 96/50 (65) 98 12/06/19 17:00 78 20 108/56 (73) 98 12/06/19 16:00 30 12/06/19 16:00 Mechanical Ventilator 12/06/19 16:00 78 18 115/55 (75) 98 12/06/19 15:41 76 17 30 12/06/19 15:28 76 12/06/19 15:00 72 17 117/60 (79) 100 12/06/19 14:00 76 18 104/58 (73) 100 12/06/19 13:00 98.1 74 17 108/58 (75) 100 12/06/19 12:00 Mechanical Ventilator 12/06/19 12:00 30 12/06/19 12:00 74 18 115/64 (81) 100 12/06/19 12:00 78 12/06/19 11:24 81 19 30 12/06/19 11:00 79 18 108/52 (70) 97 12/06/19 11:00 80 18 108/52 (70) 99 12/06/19 10:00 83 18 118/52 (74) 97 12/06/19 10:00 108/52 12/06/19 09:00 87 17 90/53 (65) 97 12/06/19 08:49 100 12/06/19 08:35 30 12/06/19 08:20 30 12/06/19 08:00 Mechanical Ventilator 12/06/19 08:00 82 12/06/19 08:00 97.9 73 17 113/52 (72) 99 12/06/19 07:40 71 12/06/19 07:20 73 17 30 12/06/19 07:00 72 17 116/64 (81) 100 12/06/19 06:00 71 17 117/52 (73) 100 12/06/19 05:00 71 16 121/61 (81) 100 12/06/19 04:00 98.0 69 16 133/59 (83) 98 12/06/19 04:00 76 12/06/19 04:00 Mechanical Ventilator 12/06/19 04:00 30 12/06/19 03:30 75 18 30 12/06/19 03:00 75 15 119/53 (75) 98 12/06/19 02:15 76 17 131/57 (81) 100 12/06/19 02:00 77 17 127/57 (80) 99 12/06/19 01:00 76 19 126/54 (78) 96 12/06/19 00:00 97.3 77 19 122/55 (77) 98 12/06/19 00:00 Mechanical Ventilator 12/06/19 00:00 30 12/05/19 23:44 73 12/05/19 23:30 77 17 30 12/05/19 23:00 75 19 126/58 (80) 99 12/05/19 22:00 80 19 134/56 (82) 99 12/05/19 21:00 81 20 133/68 (89) 98 12/05/19 20:00 82 12/05/19 20:00 Mechanical Ventilator 12/05/19 20:00 30 12/05/19 20:00 97.1 73 18 109/58 (75) 97 12/05/19 19:30 81 20 30 12/05/19 19:00 97 23 106/46 (66) 100 I&O Intake and Output 12/05/19 12/06/19 19:00 07:00 Intake Total 1190 ml 1160 ml Output Total 580 ml 360 ml Balance 610 ml 800 ml Free Water 100 ml 80 ml IV Total 650 ml 600 ml Tube Feeding 440 ml 480 ml Output Urine Total 480 ml 160 ml Stool Total 100 ml 200 ml Dressing: other Wound: other Drains: other Cardiovascular: RSR Respiratory: decreased breath sounds Abdomen: soft, present bowel sounds Extremities: edema, no cyanosis Laboratory Tests Test 12/06/19 04:30 12/06/19 08:04 12/06/19 08:30 White Blood Count 11.1 K/UL (4.8-10.8) H Red Blood Count 2.62 M/UL (4.70-6.10) L Hemoglobin 7.3 G/DL (14.2-18.0) L Hematocrit 23.9 % (42.0-52.0) L Mean Corpuscular Volume 91 FL (80-99) Mean Corpuscular Hemoglobin 28.1 PG (27.0-31.0) Mean Corpuscular Hemoglobin Concent 30.8 G/DL (32.0-36.0) L Red Cell Distribution Width 16.1 % (11.6-14.8) H Platelet Count 199 K/UL (150-450) Mean Platelet Volume 6.7 FL (6.5-10.1) Neutrophils (%) (Auto) % (45.0-75.0) Lymphocytes (%) (Auto) % (20.0-45.0) Monocytes (%) (Auto) % (1.0-10.0) Eosinophils (%) (Auto) % (0.0-3.0) Basophils (%) (Auto) % (0.0-2.0) Sodium Level 149 MMOL/L (136-145) H Potassium Level 3.4 MMOL/L (3.5-5.1) L Chloride Level 118 MMOL/L (98-107) H Carbon Dioxide Level 20 MMOL/L (21-32) L Anion Gap 11 mmol/L (5-15) Blood Urea Nitrogen 71 mg/dL (7-18) H Creatinine 2.9 MG/DL (0.55-1.30) H Estimat Glomerular Filtration Rate 21.5 mL/min (>60) Glucose Level 83 MG/DL (74-106) Calcium Level 7.7 MG/DL (8.5-10.1) L Phosphorus Level 4.8 MG/DL (2.5-4.9) Magnesium Level 2.1 MG/DL (1.8-2.4) Total Bilirubin 0.2 MG/DL (0.2-1.0) Aspartate Amino Transf (AST/SGOT) 30 U/L (15-37) Alanine Aminotransferase (ALT/SGPT) 11 U/L (12-78) L Alkaline Phosphatase 78 U/L (46-116) Total Protein 5.2 G/DL (6.4-8.2) L Albumin 1.3 G/DL (3.4-5.0) L Globulin 3.9 g/dL Albumin/Globulin Ratio 0.3 (1.0-2.7) L Arterial Blood pH 7.296 (7.350-7.450) 7.071 (7.350-7.450) Arterial Blood Partial Pressure CO2 35.9 mmHg (35.0-45.0) 68.7 mmHg (35.0-45.0) *H Arterial Blood Partial Pressure O2 95.1 mmHg (75.0-100.0) 85.1 mmHg (75.0-100.0) Arterial Blood HCO3 17.1 mmol/L (22.0-26.0) *L 19.5 mmol/L (22.0-26.0) L Arterial Blood Oxygen Saturation 96.1 % (95-100) 92.3 % (95-100) L Arterial Blood Base Excess -8.6 (-2-2) L -10.4 (-2-2) *L Michael Test Positive Positive Plan Problems: (1) Decubitus skin ulcer Assessment & Plan: Pt presented on admission with large sacral wound. Base of wound with areas that area purple and indurated sacrococcygeal,L sacrum/L gluteus,Scattered wounds with maceration L gluteus, one wound R sacrum with Biofilm, Surrounding non-blanching erythema entire buttocks. Small dry scabbed area noted to lumbar area. Unstageable Pressure Injury L heel. Base of wound is necrotic with surrounding non-blanching erythema. Tx.plan: Apply Moisture Barrier Paste to Buttocks. Cover Sacrum, R and L gluteal cheeks with Optifoam drsgs. Change every 3 days and prn. Apply Betadine to L heel. Cover with Optifoam drsg. Change every 3 days and prn. Reposition at least every 2hours or as tolerated. Place Pillow between knees. Off-load heels with Pillow. APM/BRUNILDA Mattress overlay. DAILY ESTIMATED NEEDS: Needs based on wt loss, underweight, wound/ 59kg 30-35 kcals/kg 1842-5586 total kcals 1.25-2 g protein/kg 74-118 g total protein 25-30 mL/kg 8853-4942 total fluid mLs NUTRITION DIAGNOSIS: * Increased kcal/prot intake needs R/T wound healing, suspected recent significant wt loss as evidenced by admitted w/ wounds @ lt posterior heel, R lower back, sacrum as per photos, pending eval, suspected significant wt loss of 40lbs/ 23.7% in <5 months, currently @ 81% IBW. . * Swallowing difficulty R/T dysphagia, h/o CVA as evidenced by PEG dependent. CURRENT TF:Glucerna 1.2 @65ml/hr x24 hrs ENTERAL NUTRITION RECOMMENDATIONS: NEPRO @45ml/hr x24 hrs to provide 1080ml, 1944 kcal, 87g pro, 785ml free H2O - Rec TF change for lower K content (1145mg in Nepro @45 vs 3151mg in Glucerna 1.2 @65) - Start at 25ml/hr advance as tolerated 10ml/hr q4-6 hrs - HOB over 30 degrees - Increased H20 flush to 200ml q4 hrs ADDITIONAL RECOMMENDATIONS: 1) Calibrated bedscale wt -> per SNF: HT=59" and YI=[id number] (10/20/19) 2) Wound healing: Add Vit C 500mg QD/ or dosing per nephro Add Osbaldo BID via PEG w/ TF order 3) Monitor lytes: monitor K trend, need for renal TF (K 5.3, 5.5) 4) NISS w/ TF (h/o DM) 5) Monitor for diarrhea, rec probiotics (2) Sepsis Assessment & Plan: 74-year-old male multi-medical comorbidities admitted for respiratory deficiency currently tachypneic, leukocytosis, malnutrition, hypoalbuminemia. Complete physical exam performed identified areas of concerned given patient's comorbidities current condition high risk for deteriorationNo active infection identified from patient's wounds and likely respiratory nature. Chest x-ray reviewed. No acute surgical intervention planned at this time Preventive measures IV antibiotics per infectious disease Okay for feeding once stable respiratory Appreciate Pulm input c diff positive on vanco blood cx noted worsening leukocytosis ID abx noted heme input noted There are increasing basilar opacities on the left noted. The heart size is normal. The pleural spaces are clear. Impression: New/increased infiltrates at the left lateral lung base We will follow with recommendations thank you for let me participate patient's care worsening in ICU now on pressors intubated febrile prognosis guarded ill appearing still weaning slowly 1. Interval new loss of barrientos-white differentiation and sulcal effacement involving the right parietal lobe diffusely as well as mild right parietal lobe hypoattenuation during for stroke. No significant mass effect or hemorrhage. 2. Continued evolution of large left ICA territory infarct seen on prior study. Similar-appearing right anterior temporal lobe encephalomalacia. 3. Otherwise no acute intracranial abnormality seen. 4. Bilateral large mastoid air cell effusions. (3) Left carotid artery occlusion (4) Left middle cerebral artery stroke (5) DM (diabetes mellitus) (6) ARF (acute renal failure) (7) Ventricular tachyarrhythmia (8) Aspiration pneumonia (9) Hypertension (10) UTI (urinary tract infection) (11) Anemia (12) Respiratory failure with hypoxia (13) Suspected COVID-19 virus infection Assessment & Plan: ++++ Elfego Payne Dec 06, 2019 18:37
[2019-12-06] MEDS ORDERED: NS 275ml ONE (19:06)
[2019-12-06] MEDS ORDERED: D5NS 1000ml IV ONE (19:06)
[2019-12-06] MEDS: Dyna-Hex 2% Top Sol 2oz TOPIC SCH (20:00)
[2019-12-07] VITALS (16 sets, daily range): BP systolic 33–131; BP diastolic 21–64
[2019-12-07 04:42] LABS: HEMATOCRIT 21.3 % (42.0-52.0); MEAN CORPUSCULAR VOLUME 91 FL (80-99); PLATELET COUNT 189 K/UL (150-450); RED BLOOD COUNT 2.34 M/UL (4.70-6.10); RED CELL DISTRIBUTION WIDTH 16.1 % (11.6-14.8); WHITE BLOOD COUNT 10.3 K/UL (4.8-10.8)
[2019-12-07] MEDS: Midodrine 10mg tab GT SCH (05:08)
[2019-12-07 05:09] LABS: HEMOGLOBIN 6.7 G/DL (14.2-18.0)
[2019-12-07] MEDS: Metoclopramide 10mg/2ml Inj IVP SCH ×2 (05:09→11:36)
[2019-12-07] MEDS: D5NS 1,000 ML IV SCH (05:09)
[2019-12-07 05:29] LABS: ALANINE AMINOTRANSFERASE 13 U/L (12-78); ALBUMIN 1.6 G/DL (3.4-5.0); ALBUMIN/GLOBULIN RATIO 0.4 (1.0-2.7); ALKALINE PHOSPHATASE 82 U/L (46-116); ANION GAP 12 mmol/L (5-15); ASPARTATE AMINO TRANSFERASE 30 U/L (15-37); BILIRUBIN,TOTAL 0.3 MG/DL (0.2-1.0); BLOOD UREA NITROGEN 79 mg/dL (7-18); CALCIUM 7.7 MG/DL (8.5-10.1); CARBON DIOXIDE 20 MMOL/L (21-32); CHLORIDE 119 MMOL/L (98-107); PHOSPHORUS 4.5 MG/DL (2.5-4.9); POTASSIUM 3.2 MMOL/L (3.5-5.1); SODIUM 151 MMOL/L (136-145)
[2019-12-07] MEDS: Renvela 800mg Pkt GT SCH (08:41)
[2019-12-07] MEDS: Heparin 5000 units/ml inj SUBQ SCH (08:41)
--- NOTE | 2019-12-07 09:17 | General Progress Note ---
Assessment/Plan Problem List: (1) DM (diabetes mellitus) ICD Codes: E11.9 - Type 2 diabetes mellitus without complications SNOMED: 60948587 (2) ARF (acute renal failure) ICD Codes: N17.9 - Acute kidney failure, unspecified SNOMED: 92553189 Qualifiers: Qualified Codes: N17.9 - Acute kidney failure, unspecified (3) Aspiration pneumonia ICD Codes: J69.0 - Pneumonitis due to inhalation of food and vomit SNOMED: 727912335 (4) UTI (urinary tract infection) ICD Codes: N39.0 - Urinary tract infection, site not specified SNOMED: 14135634 Qualifiers: Qualified Codes: N30.00 - Acute cystitis without hematuria (5) Hypertension ICD Codes: I10 - Essential (primary) hypertension SNOMED: 03716160 (6) Anemia ICD Codes: D64.9 - Anemia, unspecified SNOMED: 015053909 Qualifiers: Qualified Codes: D64.9 - Anemia, unspecified (7) Respiratory failure with hypoxia ICD Codes: J96.91 - Respiratory failure, unspecified with hypoxia SNOMED: 08413055471029746 Qualifiers: Qualified Codes: J96.01 - Acute respiratory failure with hypoxia (8) Suspected COVID-19 virus infection ICD Codes: Z20.828 - Contact with and (suspected) exposure to other viral communicable diseases SNOMED: 767176045 Status: unchanged Assessment/Plan: vent abx pt diet cbc bmp am Subjective Constitutional: Reports: weakness Allergies: Coded Allergies: No Known Allergies (Unverified , 09/16/19) All Systems: reviewed and negative except above Subjective intubated sedated in icu Objective Last 24 Hour Vital Signs Date Time Temp Pulse Resp B/P (MAP) Pulse Ox O2 Delivery O2 Flow Rate FiO2 12/07/19 08:25 100 12/07/19 07:18 82 16 30 12/07/19 07:00 85 19 120/63 (82) 97 12/07/19 06:00 99.5 86 17 121/59 (79) 98 12/07/19 05:00 78 18 114/55 (74) 97 12/07/19 04:00 82 12/07/19 04:00 30 12/07/19 04:00 Mechanical Ventilator 12/07/19 04:00 99.0 77 18 114/54 (74) 99 12/07/19 03:26 82 12/07/19 03:25 80 19 30 12/07/19 03:00 75 11 111/46 (67) 97 12/07/19 02:00 84 14 106/52 (70) 98 12/07/19 01:00 83 18 120/57 (78) 96 12/07/19 00:00 30 12/07/19 00:00 97.3 81 17 118/57 (77) 98 12/07/19 00:00 Mechanical Ventilator 12/06/19 23:49 82 12/06/19 23:30 79 18 30 12/06/19 23:00 74 18 116/53 (74) 97 12/06/19 22:00 87 18 118/57 (77) 97 12/06/19 21:00 82 19 115/57 (76) 98 12/06/19 20:00 30 12/06/19 20:00 83 18 117/56 (76) 97 12/06/19 20:00 Mechanical Ventilator 12/06/19 19:30 79 17 30 12/06/19 19:28 81 12/06/19 19:00 79 20 111/60 (77) 97 12/06/19 18:00 79 20 96/50 (65) 98 12/06/19 17:00 78 20 108/56 (73) 98 12/06/19 16:00 30 12/06/19 16:00 Mechanical Ventilator 12/06/19 16:00 98.2 78 18 115/55 (75) 98 12/06/19 15:41 76 17 30 12/06/19 15:28 76 12/06/19 15:00 72 17 117/60 (79) 100 12/06/19 14:00 76 18 104/58 (73) 100 12/06/19 13:00 98.1 74 17 108/58 (75) 100 12/06/19 12:00 Mechanical Ventilator 12/06/19 12:00 30 12/06/19 12:00 74 18 115/64 (81) 100 12/06/19 12:00 78 12/06/19 11:24 81 19 30 12/06/19 11:00 79 18 108/52 (70) 97 12/06/19 11:00 80 18 108/52 (70) 99 12/06/19 10:00 83 18 118/52 (74) 97 12/06/19 10:00 108/52 Intake and Output 12/06/19 12/07/19 19:00 07:00 Intake Total 1330 ml 1340 ml Output Total 225 ml 470 ml Balance 1105 ml 870 ml Free Water 50 ml 80 ml IV Total 700 ml 750 ml Tube Feeding 480 ml 480 ml Other 100 ml 30 ml Output Urine Total 175 ml 170 ml Stool Total 50 ml 300 ml Laboratory Tests 12/07/19 04:00: White Blood Count 10.3, Red Blood Count 2.34L, Hemoglobin 6.7*L, Hematocrit 21.3L, Mean Corpuscular Volume 91, Mean Corpuscular Hemoglobin 28.5, Mean Corpuscular Hemoglobin Concent 31.2L, Red Cell Distribution Width 16.1H, Platelet Count 189, Mean Platelet Volume 6.4L, Neutrophils (%) (Auto) , Lymphocytes (%) (Auto) , Monocytes (%) (Auto) , Eosinophils (%) (Auto) , Basophils (%) (Auto) , Differential Total Cells Counted 100, Neutrophils % ( Manual) 82H, Lymphocytes % (Manual) 8L, Monocytes % (Manual) 5, Eosinophils % ( Manual) 3, Basophils % (Manual) 2, Band Neutrophils 0, Platelet Estimate Adequate, Platelet Morphology Normal, Hypochromasia 4+, Anisocytosis 1+, Sodium Level 151H, Potassium Level 3.2L, Chloride Level 119H, Carbon Dioxide Level 20L , Anion Gap 12, Blood Urea Nitrogen 79H, Creatinine 3.0H, Estimat Glomerular Filtration Rate 20.7, Glucose Level 85, Calcium Level 7.7L, Phosphorus Level 4.5 , Magnesium Level 2.2, Total Bilirubin 0.3, Aspartate Amino Transf (AST/SGOT) 30 , Alanine Aminotransferase (ALT/SGPT) 13, Alkaline Phosphatase 82, C-Reactive Protein, Quantitative 7.3H, Pro-B-Type Natriuretic Peptide 43536Y, Total Protein 5.4L, Albumin 1.6L, Globulin 3.8, Albumin/Globulin Ratio 0.4L Height (Feet): 6 Height (Inches): 0.00 Weight (Pounds): 166 General Appearance: lethargic EENT: normal ENT inspection Neck: normal alignment Cardiovascular: normal rate, regular rhythm Respiratory/Chest: no respiratory distress, no accessory muscle use Extremities: normal inspection Skin: normal pigmentation Juan Singh DO Dec 07, 2019 09:17
--- NOTE | 2019-12-07 09:47 | Hematology/Onc Progress Note ---
Assessment/Plan Assessment/Plan Assessment and Recs # Leukocytosis/elevated white blood cell count, unspecified likely related to underlying stress reaction, smoking v more likely infection, in this case with pna and COVID19++++++++ --> have reviewed peripheral smear and bandemia/neutrophilia noted --> continue antibiotics if they have been started by ID team --> monitor for resolution --> wbc 35k-->31.2-->25-->27.4 -->25-->20.7-->18.6 -->27-->19.7 -->20->20->18.2- ->15.7 -->14-->12.7-->11->10 --> abx/antivral: remdesivir/vanc/cefepime-->vanc/flagyl/moniqeu-->linezolid/monique-- >cefepime/zyvox/vanc ->vanc/cefepime --> 11/28 cxr: Slight increased alveolar infiltrates. --> 11/30 cxr: No significant change bilateral infiltrates and right effusion. # Thrombocytosis - if plt count >400k, most usually is a reactive process and will improve once exacerbant removed as well --> in this case due to underlying infection --> plt trend 646k-->672 -->547-->372-->345-->149 -->246-->232-->197-->220 --> smear is noted # Anemia of chronic disease due to underlying chronic medical issues, multifactorial v Gi bleed --> Anemia workup has been ordered, rule out gi bleed -> ferritin 1339 --> No evidence of hemolysis is noted, peripheral smear has been reviewed. --> Hgb goal >7. Transfuse prn. --> Epogen or iron at this time is not particularly indicated --> Medications have been reviewed --> low threshold for gi evaluation in case has occult + --> bone marrow biopsy is not indicated given the other more likely causes --> hgb 9.5-->9.8->8.8-->8.6-->7.5-->9.5-->7.5 -->9.1-->8-->7.6-->7-->9.2-->8.2- ->8.7-->7.5->7.2-->7.3-->6.7 --> 1 unit prbc 11/20; 11/28 --> ddimer remains elevated currently # Acute hypoxic resp failure- 2ry to COVID19 --> vent+ --> per id and pulm recs --> breathing treatments and rep cxr --> 11/15 cxr: New/increased infiltrates at the left lateral lung base # UTI c/w bacteremia --> abx per id # Cdiff colitis --> abx # MONICA, improving # Deep tissue injury (sacrum, L heel) # HTN # Dm2 # MDD # Dysphagia s/p GT # malnutrition # decubitus ulcer # non verbal # 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 Greatly appreciate consultation. Subjective Allergies: Coded Allergies: No Known Allergies (Unverified , 09/16/19) All Systems: reviewed and negative except above Subjective 11/15 tele, no acute events, cxr and labs reviewed, nrb 15l, remdesivir 11/16 remains on iso, breathing is improved, no night sweats 11/17 remains with fever, cooling blankets, labs noted, no bleed hgb 8.8 11/19 icu, no acute events, vent, levo gtt, meds and labs reviewed 11/20 labs noted, no bleeding, in icu, hgb 7.5, to get one unit prbc, wbc elev 25 11/21 non verbal, s/p blood, hgb improved to 9.5, vent, iv abx 11/22 icu, no new changes, labs reviewed, levo gtt 11/23 labs are noted, no bleeding, in icu, on levo, wbc 27, hgb 9 11/24 nonverbal, no new changes, afebrile 11/26 nonverbal, in icu, on vent, wbc 20, hgb 8, no bleeding 11/[address], vent, lavonne as well, labs reviewed 11/28 nonverbal, icu, hbg 7, iv abx, 11/29 s/p 1 unit blood, hgb improved to 9.2, cxr reviewed 11/30 labs are noted, hgb is stable, nonverbal, on vent 12/01 icu, cxr reviewed, hgb 8.7, cefepime, vent 12/03 comatose, no bleeding, meds noted, hgb 7.5, no bleeding, with gtube feeds 12/04 on vent, abx, in icu, no bleeding, hgb 7.2, no hemolysis, gtube+ 12/05 obtunded, in icu, hgb7.3, no hemolysis, vernon [place] 12/06 intubated, with gtube for 2 units prbc, vernon rn Objective Objective Current Medications Medications (Trade) Dose Ordered Sig/Leonor Route PRN Reason Start Time Stop Time Status Last Admin Dose Admin Acetaminophen (Tylenol) 650 mg Q4H PRN GT fever 11/18/19 03:00 12/11/19 02:59 11/28/19 05:07 Allopurinol (allopurinoL) 300 mg DAILY GT 11/21/19 09:00 12/21/19 08:59 12/07/19 08:41 Chlorhexidine Gluconate (Danielle-Hex 2%) 1 applic DAILY@2000 TOPIC 11/18/19 20:00 02/16/20 19:59 12/06/19 20:00 Dextrose/Sodium Chloride 1,000 ml @ 50 mls/hr Q20H IV 11/22/19 10:15 12/20/19 10:14 12/07/19 05:09 Epoetin Marek (Epoetin Marek-EPBX(NON ESRD)) 10,000 unit THU-THU-THU SUBQ 12/05/19 21:00 03/04/20 20:59 12/05/19 19:46 Fidaxomicin (Dificid) 200 mg EVERY 12 HOURS ORAL 12/07/19 09:00 12/10/19 23:59 12/07/19 08:40 Heparin Sodium (Porcine) (Heparin 5000 units/ml) 5,000 units EVERY 12 HOURS SUBQ 11/18/19 09:00 12/26/19 08:59 12/06/19 21:04 Metoclopramide HCl (Reglan) 5 mg Q6HR IVP 12/01/19 12:00 12/31/19 11:59 12/07/19 05:09 Midodrine (Pro-Amatine) 10 mg Q8HR GT 12/03/19 14:00 02/20/20 13:59 12/07/19 05:08 Norepinephrine Bitartrate 8 mg/ Dextrose 558 ml @ 0 mls/hr Q24H IV 11/18/19 10:00 12/18/19 09:59 12/04/19 09:49 Ondansetron HCl (Zofran) 4 mg Q6H PRN IVP Nausea & Vomiting 11/18/19 03:00 12/11/19 08:59 Sevelamer Carbonate (Renvela) 800 mg Q12HR GT 11/29/19 21:00 02/20/20 07:59 12/07/19 08:41 Last 24 Hour Vital Signs Date Time Temp Pulse Resp B/P (MAP) Pulse Ox O2 Delivery O2 Flow Rate FiO2 12/07/19 08:25 100 12/07/19 08:00 30 12/07/19 08:00 Mechanical Ventilator 12/07/19 07:18 82 16 30 12/07/19 07:00 85 19 120/63 (82) 97 12/07/19 06:00 99.5 86 17 121/59 (79) 98 12/07/19 05:00 78 18 114/55 (74) 97 12/07/19 04:00 82 12/07/19 04:00 30 12/07/19 04:00 Mechanical Ventilator 12/07/19 04:00 99.0 77 18 114/54 (74) 99 12/07/19 03:26 82 12/07/19 03:25 80 19 30 12/07/19 03:00 75 11 111/46 (67) 97 12/07/19 02:00 84 14 106/52 (70) 98 12/07/19 01:00 83 18 120/57 (78) 96 12/07/19 00:00 30 12/07/19 00:00 97.3 81 17 118/57 (77) 98 12/07/19 00:00 Mechanical Ventilator 12/06/19 23:49 82 12/06/19 23:30 79 18 30 12/06/19 23:00 74 18 116/53 (74) 97 12/06/19 22:00 87 18 118/57 (77) 97 12/06/19 21:00 82 19 115/57 (76) 98 12/06/19 20:00 30 12/06/19 20:00 83 18 117/56 (76) 97 12/06/19 20:00 Mechanical Ventilator 12/06/19 19:30 79 17 30 12/06/19 19:28 81 12/06/19 19:00 79 20 111/60 (77) 97 12/06/19 18:00 79 20 96/50 (65) 98 12/06/19 17:00 78 20 108/56 (73) 98 12/06/19 16:00 30 12/06/19 16:00 Mechanical Ventilator 12/06/19 16:00 98.2 78 18 115/55 (75) 98 12/06/19 15:41 76 17 30 12/06/19 15:28 76 12/06/19 15:00 72 17 117/60 (79) 100 12/06/19 14:00 76 18 104/58 (73) 100 12/06/19 13:00 98.1 74 17 108/58 (75) 100 12/06/19 12:00 Mechanical Ventilator 12/06/19 12:00 30 12/06/19 12:00 74 18 115/64 (81) 100 12/06/19 12:00 78 12/06/19 11:24 81 19 30 12/06/19 11:00 79 18 108/52 (70) 97 12/06/19 11:00 80 18 108/52 (70) 99 12/06/19 10:00 83 18 118/52 (74) 97 12/06/19 10:00 108/52 12/06/19 09:00 87 17 90/53 (65) 97 12/06/19 08:49 100 12/06/19 08:35 30 12/06/19 08:20 30 12/06/19 08:00 Mechanical Ventilator 12/06/19 08:00 82 12/06/19 08:00 97.9 73 17 113/52 (72) 99 12/06/19 07:40 71 12/06/19 07:20 73 17 30 12/06/19 07:00 72 17 116/64 (81) 100 12/06/19 06:00 71 17 117/52 (73) 100 12/06/19 05:00 71 16 121/61 (81) 100 12/06/19 04:00 98.0 69 16 133/59 (83) 98 12/06/19 04:00 76 12/06/19 04:00 Mechanical Ventilator 12/06/19 04:00 30 12/06/19 03:30 75 18 30 12/06/19 03:00 75 15 119/53 (75) 98 12/06/19 02:15 76 17 131/57 (81) 100 12/06/19 02:00 77 17 127/57 (80) 99 12/06/19 01:00 76 19 126/54 (78) 96 12/06/19 00:00 97.3 77 19 122/55 (77) 98 12/06/19 00:00 Mechanical Ventilator 12/06/19 00:00 30 12/05/19 23:44 73 12/05/19 23:30 77 17 30 12/05/19 23:00 75 19 126/58 (80) 99 12/05/19 22:00 80 19 134/56 (82) 99 12/05/19 21:00 81 20 133/68 (89) 98 12/05/19 20:00 82 12/05/19 20:00 Mechanical Ventilator 12/05/19 20:00 30 12/05/19 20:00 97.1 73 18 109/58 (75) 97 12/05/19 19:30 81 20 30 12/05/19 19:00 97 23 106/46 (66) 100 12/05/19 18:00 79 21 131/65 (87) 99 12/05/19 17:00 79 22 107/55 (72) 99 12/05/19 16:00 97.4 81 22 111/55 (73) 98 12/05/19 16:00 30 12/05/19 16:00 Mechanical Ventilator 12/05/19 15:34 83 12/05/19 15:15 80 21 30 12/05/19 15:06 83 20 113/58 (76) 99 12/05/19 14:00 81 21 112/62 (79) 99 12/05/19 13:00 80 12 117/55 (75) 99 12/05/19 12:00 81 12/05/19 12:00 Mechanical Ventilator 12/05/19 12:00 30 12/05/19 12:00 97.7 84 14 129/58 (81) 100 12/05/19 11:15 74 21 30 12/05/19 11:00 78 22 130/63 (85) 99 12/05/19 10:00 125/62 12/05/19 10:00 78 20 125/65 (85) 99 Intake and Output 12/06/19 12/07/19 19:00 07:00 Intake Total 1330 ml 1340 ml Output Total 225 ml 470 ml Balance 1105 ml 870 ml Free Water 50 ml 80 ml IV Total 700 ml 750 ml Tube Feeding 480 ml 480 ml Other 100 ml 30 ml Output Urine Total 175 ml 170 ml Stool Total 50 ml 300 ml Labs Test 12/05/19 05:00 12/05/19 11:14 12/05/19 13:07 12/06/19 04:30 White Blood Count 11.6 K/UL (4.8-10.8) 11.1 K/UL (4.8-10.8) Red Blood Count 2.58 M/UL (4.70-6.10) 2.62 M/UL (4.70-6.10) Hemoglobin 7.2 G/DL (14.2-18.0) 7.3 G/DL (14.2-18.0) Hematocrit 23.6 % (42.0-52.0) 23.9 % (42.0-52.0) Mean Corpuscular Volume 92 FL (80-99) 91 FL (80-99) Mean Corpuscular Hemoglobin 28.1 PG (27.0-31.0) 28.1 PG (27.0-31.0) Mean Corpuscular Hemoglobin Concent 30.7 G/DL (32.0-36.0) 30.8 G/DL (32.0-36.0) Red Cell Distribution Width 16.1 % (11.6-14.8) 16.1 % (11.6-14.8) Platelet Count 176 K/UL (150-450) 199 K/UL (150-450) Mean Platelet Volume 6.4 FL (6.5-10.1) 6.7 FL (6.5-10.1) Neutrophils (%) (Auto) % (45.0-75.0) % (45.0-75.0) Lymphocytes (%) (Auto) % (20.0-45.0) % (20.0-45.0) Monocytes (%) (Auto) % (1.0-10.0) % (1.0-10.0) Eosinophils (%) (Auto) % (0.0-3.0) % (0.0-3.0) Basophils (%) (Auto) % (0.0-2.0) % (0.0-2.0) Differential Total Cells Counted 100 Neutrophils % (Manual) 79 % (45-75) Lymphocytes % (Manual) 17 % (20-45) Monocytes % (Manual) 3 % (1-10) Eosinophils % (Manual) 1 % (0-3) Basophils % (Manual) 0 % (0-2) Band Neutrophils 0 % (0-8) Platelet Estimate Adequate Platelet Morphology Normal Hypochromasia 1+ Anisocytosis 1+ Sodium Level 148 MMOL/L (136-145) 149 MMOL/L (136-145) Potassium Level 3.3 MMOL/L (3.5-5.1) 3.4 MMOL/L (3.5-5.1) Chloride Level 115 MMOL/L (98-107) 118 MMOL/L (98-107) Carbon Dioxide Level 20 MMOL/L (21-32) 20 MMOL/L (21-32) Anion Gap 14 mmol/L (5-15) 11 mmol/L (5-15) Blood Urea Nitrogen 71 mg/dL (7-18) 71 mg/dL (7-18) Creatinine 2.9 MG/DL (0.55-1.30) 2.9 MG/DL (0.55-1.30) Estimat Glomerular Filtration Rate 21.5 mL/min (>60) 21.5 mL/min (>60) Glucose Level 95 MG/DL (74-106) 83 MG/DL (74-106) Calcium Level 7.6 MG/DL (8.5-10.1) 7.7 MG/DL (8.5-10.1) Phosphorus Level 4.7 MG/DL (2.5-4.9) 4.8 MG/DL (2.5-4.9) Magnesium Level 2.1 MG/DL (1.8-2.4) 2.1 MG/DL (1.8-2.4) Total Bilirubin 0.2 MG/DL (0.2-1.0) 0.2 MG/DL (0.2-1.0) Aspartate Amino Transf (AST/SGOT) 27 U/L (15-37) 30 U/L (15-37) Alanine Aminotransferase (ALT/SGPT) 10 U/L (12-78) 11 U/L (12-78) Alkaline Phosphatase 83 U/L (46-116) 78 U/L (46-116) C-Reactive Protein, Quantitative 8.8 mg/dL (0.00-0.90) Total Protein 5.4 G/DL (6.4-8.2) 5.2 G/DL (6.4-8.2) Albumin 1.5 G/DL (3.4-5.0) 1.3 G/DL (3.4-5.0) Globulin 3.9 g/dL 3.9 g/dL Albumin/Globulin Ratio 0.4 (1.0-2.7) 0.3 (1.0-2.7) Arterial Blood pH 7.334 (7.350-7.450) 7.299 (7.350-7.450) Arterial Blood Partial Pressure CO2 33.8 mmHg (35.0-45.0) 34.1 mmHg (35.0-45.0) Arterial Blood Partial Pressure O2 99.1 mmHg (75.0-100.0) 85.4 mmHg (75.0-100.0) Arterial Blood HCO3 17.6 mmol/L (22.0-26.0) 16.4 mmol/L (22.0-26.0) Arterial Blood Oxygen Saturation 96.7 % (95-100) 94.9 % (95-100) Arterial Blood Base Excess -7.5 (-2-2) -9.2 (-2-2) Michael Test Positive Positive Test 12/06/19 08:04 12/06/19 08:30 12/07/19 04:00 Arterial Blood pH 7.296 (7.350-7.450) 7.071 (7.350-7.450) Arterial Blood Partial Pressure CO2 35.9 mmHg (35.0-45.0) 68.7 mmHg (35.0-45.0) Arterial Blood Partial Pressure O2 95.1 mmHg (75.0-100.0) 85.1 mmHg (75.0-100.0) Arterial Blood HCO3 17.1 mmol/L (22.0-26.0) 19.5 mmol/L (22.0-26.0) Arterial Blood Oxygen Saturation 96.1 % (95-100) 92.3 % (95-100) Arterial Blood Base Excess -8.6 (-2-2) -10.4 (-2-2) Michael Test Positive Positive White Blood Count 10.3 K/UL (4.8-10.8) Red Blood Count 2.34 M/UL (4.70-6.10) Hemoglobin 6.7 G/DL (14.2-18.0) Hematocrit 21.3 % (42.0-52.0) Mean Corpuscular Volume 91 FL (80-99) Mean Corpuscular Hemoglobin 28.5 PG (27.0-31.0) Mean Corpuscular Hemoglobin Concent 31.2 G/DL (32.0-36.0) Red Cell Distribution Width 16.1 % (11.6-14.8) Platelet Count 189 K/UL (150-450) Mean Platelet Volume 6.4 FL (6.5-10.1) Neutrophils (%) (Auto) % (45.0-75.0) Lymphocytes (%) (Auto) % (20.0-45.0) Monocytes (%) (Auto) % (1.0-10.0) Eosinophils (%) (Auto) % (0.0-3.0) Basophils (%) (Auto) % (0.0-2.0) Differential Total Cells Counted 100 Neutrophils % (Manual) 82 % (45-75) Lymphocytes % (Manual) 8 % (20-45) Monocytes % (Manual) 5 % (1-10) Eosinophils % (Manual) 3 % (0-3) Basophils % (Manual) 2 % (0-2) Band Neutrophils 0 % (0-8) Platelet Estimate Adequate Platelet Morphology Normal Hypochromasia 4+ Anisocytosis 1+ Sodium Level 151 MMOL/L (136-145) Potassium Level 3.2 MMOL/L (3.5-5.1) Chloride Level 119 MMOL/L (98-107) Carbon Dioxide Level 20 MMOL/L (21-32) Anion Gap 12 mmol/L (5-15) Blood Urea Nitrogen 79 mg/dL (7-18) Creatinine 3.0 MG/DL (0.55-1.30) Estimat Glomerular Filtration Rate 20.7 mL/min (>60) Glucose Level 85 MG/DL (74-106) Calcium Level 7.7 MG/DL (8.5-10.1) Phosphorus Level 4.5 MG/DL (2.5-4.9) Magnesium Level 2.2 MG/DL (1.8-2.4) Total Bilirubin 0.3 MG/DL (0.2-1.0) Aspartate Amino Transf (AST/SGOT) 30 U/L (15-37) Alanine Aminotransferase (ALT/SGPT) 13 U/L (12-78) Alkaline Phosphatase 82 U/L (46-116) C-Reactive Protein, Quantitative 7.3 mg/dL (0.00-0.90) Pro-B-Type Natriuretic Peptide 50010 pg/mL (0-125) Total Protein 5.4 G/DL (6.4-8.2) Albumin 1.6 G/DL (3.4-5.0) Globulin 3.8 g/dL Albumin/Globulin Ratio 0.4 (1.0-2.7) Height (Feet): 6 Height (Inches): 0.00 Weight (Pounds): 166 Objective PE General: alert, chronically Ill Heent: nc, at Neck: full range of motion, supple, no meningismus Respiratory: chest non-tender, decreased breath sounds, crackles, vent++ Cardiovascular: no murmur, tachycardia Gastrointestinal: normal bowel sounds, non tender,+peg Musculoskeletal: back normal, normal range of motion, gait/station normal Neurologic: no pronator Deng Flowers MD Dec 07, 2019 09:47
[2019-12-07] MEDS: Norepinephrine Bitartrate 8 MG in D5W 500ml 550 ML IV SCH (10:00)
--- NOTE | 2019-12-07 11:25 | General Progress Note ---
Assessment/Plan Problem List: (1) DM (diabetes mellitus) ICD Codes: E11.9 - Type 2 diabetes mellitus without complications SNOMED: 86880524 (2) Dysphagia ICD Codes: R13.10 - Dysphagia, unspecified SNOMED: 64184713, 578023465 (3) Suspected COVID-19 virus infection ICD Codes: Z20.828 - Contact with and (suspected) exposure to other viral communicable diseases SNOMED: 034987550 (4) Respiratory failure with hypoxia ICD Codes: J96.91 - Respiratory failure, unspecified with hypoxia SNOMED: 33164376234027044 Qualifiers: Qualified Codes: J96.01 - Acute respiratory failure with hypoxia (5) Anemia ICD Codes: D64.9 - Anemia, unspecified SNOMED: 920836410 Qualifiers: Qualified Codes: D64.9 - Anemia, unspecified (6) UTI (urinary tract infection) ICD Codes: N39.0 - Urinary tract infection, site not specified SNOMED: 48210183 Qualifiers: Qualified Codes: N30.00 - Acute cystitis without hematuria (7) ARF (acute renal failure) ICD Codes: N17.9 - Acute kidney failure, unspecified SNOMED: 25963624 Qualifiers: Qualified Codes: N17.9 - Acute kidney failure, unspecified (8) DM (diabetes mellitus) ICD Codes: E11.9 - Type 2 diabetes mellitus without complications SNOMED: 87236152 (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 - Cerebral infarction due to unspecified occlusion or stenosis of left middle cerebral artery SNOMED: 697579969 (10) Sepsis ICD Codes: A41.9 - Sepsis, unspecified organism SNOMED: 52170681 Qualifiers: Qualified Codes: A41.9 - Sepsis, unspecified organism; R65.20 - Severe sepsis without septic shock; J96.01 - Acute respiratory failure with hypoxia (11) Decubitus skin ulcer ICD Codes: L89.90 - Pressure ulcer of unspecified site, unspecified stage SNOMED: 415701807 Status: unchanged Assessment/Plan: on reglan monitor for residuals GT flush fu labs ICU care failed weaning Subjective ROS Limited/Unobtainable: No Allergies: Coded Allergies: No Known Allergies (Unverified , 09/16/19) Objective Last 24 Hour Vital Signs Date Time Temp Pulse Resp B/P (MAP) Pulse Ox O2 Delivery O2 Flow Rate FiO2 12/07/19 10:00 123/63 12/07/19 10:00 87 19 127/59 (81) 98 12/07/19 09:00 92 18 123/63 (83) 98 12/07/19 08:25 100 12/07/19 08:00 99.2 90 18 124/62 (82) 98 12/07/19 08:00 30 12/07/19 08:00 Mechanical Ventilator 12/07/19 07:18 82 16 30 12/07/19 07:00 85 19 120/63 (82) 97 12/07/19 06:00 99.5 86 17 121/59 (79) 98 12/07/19 05:00 78 18 114/55 (74) 97 12/07/19 04:00 82 12/07/19 04:00 30 12/07/19 04:00 Mechanical Ventilator 12/07/19 04:00 99.0 77 18 114/54 (74) 99 12/07/19 03:26 82 12/07/19 03:25 80 19 30 12/07/19 03:00 75 11 111/46 (67) 97 12/07/19 02:00 84 14 106/52 (70) 98 12/07/19 01:00 83 18 120/57 (78) 96 12/07/19 00:00 30 12/07/19 00:00 97.3 81 17 118/57 (77) 98 12/07/19 00:00 Mechanical Ventilator 12/06/19 23:49 82 12/06/19 23:30 79 18 30 12/06/19 23:00 74 18 116/53 (74) 97 12/06/19 22:00 87 18 118/57 (77) 97 12/06/19 21:00 82 19 115/57 (76) 98 12/06/19 20:00 30 12/06/19 20:00 83 18 117/56 (76) 97 12/06/19 20:00 Mechanical Ventilator 12/06/19 19:30 79 17 30 12/06/19 19:28 81 12/06/19 19:00 79 20 111/60 (77) 97 12/06/19 18:00 79 20 96/50 (65) 98 12/06/19 17:00 78 20 108/56 (73) 98 12/06/19 16:00 30 12/06/19 16:00 Mechanical Ventilator 12/06/19 16:00 98.2 78 18 115/55 (75) 98 12/06/19 15:41 76 17 30 12/06/19 15:28 76 12/06/19 15:00 72 17 117/60 (79) 100 12/06/19 14:00 76 18 104/58 (73) 100 12/06/19 13:00 98.1 74 17 108/58 (75) 100 12/06/19 12:00 Mechanical Ventilator 12/06/19 12:00 30 12/06/19 12:00 74 18 115/64 (81) 100 12/06/19 12:00 78 Intake and Output 12/06/19 12/07/19 19:00 07:00 Intake Total 1330 ml 1340 ml Output Total 225 ml 470 ml Balance 1105 ml 870 ml Free Water 50 ml 80 ml IV Total 700 ml 750 ml Tube Feeding 480 ml 480 ml Other 100 ml 30 ml Output Urine Total 175 ml 170 ml Stool Total 50 ml 300 ml Laboratory Tests 12/07/19 04:00: White Blood Count 10.3, Red Blood Count 2.34L, Hemoglobin 6.7*L, Hematocrit 21.3L, Mean Corpuscular Volume 91, Mean Corpuscular Hemoglobin 28.5, Mean Corpuscular Hemoglobin Concent 31.2L, Red Cell Distribution Width 16.1H, Platelet Count 189, Mean Platelet Volume 6.4L, Neutrophils (%) (Auto) , Lymphocytes (%) (Auto) , Monocytes (%) (Auto) , Eosinophils (%) (Auto) , Basophils (%) (Auto) , Differential Total Cells Counted 100, Neutrophils % ( Manual) 82H, Lymphocytes % (Manual) 8L, Monocytes % (Manual) 5, Eosinophils % ( Manual) 3, Basophils % (Manual) 2, Band Neutrophils 0, Platelet Estimate Adequate, Platelet Morphology Normal, Hypochromasia 4+, Anisocytosis 1+, Sodium Level 151H, Potassium Level 3.2L, Chloride Level 119H, Carbon Dioxide Level 20L , Anion Gap 12, Blood Urea Nitrogen 79H, Creatinine 3.0H, Estimat Glomerular Filtration Rate 20.7, Glucose Level 85, Calcium Level 7.7L, Phosphorus Level 4.5 , Magnesium Level 2.2, Total Bilirubin 0.3, Aspartate Amino Transf (AST/SGOT) 30 , Alanine Aminotransferase (ALT/SGPT) 13, Alkaline Phosphatase 82, C-Reactive Protein, Quantitative 7.3H, Pro-B-Type Natriuretic Peptide 43699Y, Total Protein 5.4L, Albumin 1.6L, Globulin 3.8, Albumin/Globulin Ratio 0.4L Height (Feet): 6 Height (Inches): 0.00 Weight (Pounds): 166 General Appearance: no apparent distress EENT: normal ENT inspection Neck: supple Cardiovascular: tachycardia Respiratory/Chest: decreased breath sounds Abdomen: hypoactive bowel sounds Extremities: non-tender Louie Fan MD Dec 07, 2019 11:25
--- NOTE | 2019-12-07 12:00 | Nephrology Progress Note ---
Assessment/Plan Problem List: (1) ARF (acute renal failure) (2) Hyperkalemia (3) DM (diabetes mellitus) (4) Suspected COVID-19 virus infection (5) Sepsis (6) Severe malnutrition Assessment: Severe hypoalbuminemia Assessment his 74-year-old male with multiple Multiple medical problem presents with respiratory symptoms and diarrhea Renal failure most likely prerenal azotemia secondary to dehydration Hyperkalemia on presentation also secondary to dehydration Sepsis pneumonia hypoxia UTI Anemia History of hypertension History of diabetes mellitus Suspected COVID-19 virus infection Hypoalbuminemia Plan C. difficile positive COVID-19 detected December 06: Hemoglobin dropped. 2 units of packed RBCs ordered for transfusion. Serum creatinine 3. Continue to monitor renal parameters. Continue per consultants. December 05: Creatinine unchanged. Will give a trial of albumin 25% every 8 hours 3 doses. Potassium supplement. Continue per consultants. December 04: Serum creatinine 2.9. Hemoglobin remains low. No need for dialysis treatment today. Continue to monitor renal parameters and intake and output. December 03: Serum creatinine 3. Hemoglobin lower. On low-dose pressors today. Continue to monitor renal parameters. Watch if needed dialysis. Trial of albumin 25%. December 02: Serum creatinine remains at 2.9. Anemia worsened. Iron panel ferritin ordered. 1 dose of Venofer 200 mg ordered. Subcutaneous Epogen started. Continues to be full code intubated on ventilator. No need for dialysis treatment at this time since serum creatinine appears to be stable. December 01: Serum creatinine gaudencio to 2.9. Continue to monitor renal parameters, urine output, and avoid nephrotoxic's as possible. November 30: Serum creatinine remains stable. Will discontinue calcium supplements. Continue per current treatment plan. No dialysis needed. November 29: Serum creatinine stable. Off pressors. No dialysis needed today. Discussed with JUSTINO Hernandez. Continue per consultants. November 28: Serum creatinine unchanged. Off pressors. Potassium supplement intravenously ordered. Discussed with JUSTINO Evans. No need for dialysis today. Continue to monitor renal parameters. Change midodrine from PRN to scheduled every 8 hours. November 27: Labs reviewed. No dialysis today. Discussed with RN. Potassium supplement given. Continue to monitor renal parameters. Continue per consultants. November 26: Lab reviewed. Remains full code. Remains intubated. Midodrin changed to PRN. Electrolytes acceptable. Will monitor renal parameters and urine output and dialyze as needed. November 25: Dialyzed yesterday. Lab reviewed. Remains full code. Remains intubated on ventilator. On minimal dose of pressors. 20 mEq potassium chloride IV ordered for low potassium level. November 24: Patient remains intubated. Due for dialysis today. Labs reviewed. Continues to be full code. November 23: Patient was dialyzed yesterday. Labs reviewed. Status quo. Remains full code. Will arrange for dialysis tomorrow. November 22: Patient in ICU. Intubated on ventilator. On low-dose pressors. Urine output labile. Serum creatinine rising. Patient developing acute renal failure. Need urgent dialysis treatment. Will arrange for placement of non- tunneled dialysis catheter as soon as possible. RN states that no family member or next of kin could be contacted at this time. Due to the urgency of the problem and the patient being full code will proceed with placement of dialysis catheter and dialysis treatment as soon as possible. November 21: Patient continues to do poorly. Discussed with RN. Started on Midodrin for BP support. Nephro feeding started. Phosphorus binders started. IV calcium ordered. Continue to monitor renal parameters and urine output. Continue per consultants. Patient remains full code. Per orders. November 20: Serum creatinine continuing to rise. Remains of 100 cc an hour IV fluid. Urine output remains low. Blood pressure also borderline low, on pressors. Continue per consultants. Continue to monitor renal parameters and urine output. Continue to avoid nephrotoxic's. Further deterioration of renal function may lead to dialysis treatment. Will discuss with PMD. November 19: Serum creatinine rising. Urine output decreasing. Will change to IV, D5 normal saline. Will give albumin bolus followed by Lasix 40 mg IV push. Continue to monitor renal parameters and urine output. Continue to avoid nephrotoxic medications as possible. Today's vancomycin level was 22. November 18: Serum creatinine rising. Continues to be full code. Continues to be intubated on ventilator. Remains on IV fluids. Vancomycin levels per pharmacy. Prognosis poor due to sepsis. November 17: Intubated on ventilator in ICU. Will continue half-normal saline 100 cc an hour. Continue per pulmonary and ID. Prognosis poor. Continue to monitor renal parameters. Hydrate with half-normal saline, serum creatinine now at its lowest today. monitor electrolytes Will change the feeding to Nepro and monitor her potassium and other electrolytes Continue per ID Keep the blood pressure and blood sugar in check Monitor renal parameters Previously: Urine studies Monitor intake and output Cultures including stool for C. difficile Per orders Patient's CODE STATUS is full Subjective ROS Limited/Unobtainable: Yes Objective Objective Last 24 Hour Vital Signs Date Time Temp Pulse Resp B/P (MAP) Pulse Ox O2 Delivery O2 Flow Rate FiO2 12/07/19 10:00 123/63 12/07/19 10:00 87 19 127/59 (81) 98 12/07/19 09:00 92 18 123/63 (83) 98 12/07/19 08:25 100 12/07/19 08:00 99.2 90 18 124/62 (82) 98 12/07/19 08:00 30 12/07/19 08:00 Mechanical Ventilator 12/07/19 07:18 82 16 30 12/07/19 07:00 85 19 120/63 (82) 97 12/07/19 06:00 99.5 86 17 121/59 (79) 98 12/07/19 05:00 78 18 114/55 (74) 97 12/07/19 04:00 82 12/07/19 04:00 30 12/07/19 04:00 Mechanical Ventilator 12/07/19 04:00 99.0 77 18 114/54 (74) 99 12/07/19 03:26 82 12/07/19 03:25 80 19 30 12/07/19 03:00 75 11 111/46 (67) 97 12/07/19 02:00 84 14 106/52 (70) 98 12/07/19 01:00 83 18 120/57 (78) 96 12/07/19 00:00 30 12/07/19 00:00 97.3 81 17 118/57 (77) 98 12/07/19 00:00 Mechanical Ventilator 12/06/19 23:49 82 12/06/19 23:30 79 18 30 12/06/19 23:00 74 18 116/53 (74) 97 12/06/19 22:00 87 18 118/57 (77) 97 12/06/19 21:00 82 19 115/57 (76) 98 12/06/19 20:00 30 12/06/19 20:00 83 18 117/56 (76) 97 12/06/19 20:00 Mechanical Ventilator 12/06/19 19:30 79 17 30 12/06/19 19:28 81 12/06/19 19:00 79 20 111/60 (77) 97 12/06/19 18:00 79 20 96/50 (65) 98 12/06/19 17:00 78 20 108/56 (73) 98 12/06/19 16:00 30 12/06/19 16:00 Mechanical Ventilator 12/06/19 16:00 98.2 78 18 115/55 (75) 98 12/06/19 15:41 76 17 30 12/06/19 15:28 76 12/06/19 15:00 72 17 117/60 (79) 100 12/06/19 14:00 76 18 104/58 (73) 100 12/06/19 13:00 98.1 74 17 108/58 (75) 100 12/06/19 12:00 Mechanical Ventilator 12/06/19 12:00 30 12/06/19 12:00 74 18 115/64 (81) 100 12/06/19 12:00 78 Intake and Output 12/06/19 12/07/19 19:00 07:00 Intake Total 1330 ml 1340 ml Output Total 225 ml 470 ml Balance 1105 ml 870 ml Free Water 50 ml 80 ml IV Total 700 ml 750 ml Tube Feeding 480 ml 480 ml Other 100 ml 30 ml Output Urine Total 175 ml 170 ml Stool Total 50 ml 300 ml Laboratory Tests 12/07/19 04:00: White Blood Count 10.3, Red Blood Count 2.34L, Hemoglobin 6.7*L, Hematocrit 21.3L, Mean Corpuscular Volume 91, Mean Corpuscular Hemoglobin 28.5, Mean Corpuscular Hemoglobin Concent 31.2L, Red Cell Distribution Width 16.1H, Platelet Count 189, Mean Platelet Volume 6.4L, Neutrophils (%) (Auto) , Lymphocytes (%) (Auto) , Monocytes (%) (Auto) , Eosinophils (%) (Auto) , Basophils (%) (Auto) , Differential Total Cells Counted 100, Neutrophils % ( Manual) 82H, Lymphocytes % (Manual) 8L, Monocytes % (Manual) 5, Eosinophils % ( Manual) 3, Basophils % (Manual) 2, Band Neutrophils 0, Platelet Estimate Adequate, Platelet Morphology Normal, Hypochromasia 4+, Anisocytosis 1+, Sodium Level 151H, Potassium Level 3.2L, Chloride Level 119H, Carbon Dioxide Level 20L , Anion Gap 12, Blood Urea Nitrogen 79H, Creatinine 3.0H, Estimat Glomerular Filtration Rate 20.7, Glucose Level 85, Calcium Level 7.7L, Phosphorus Level 4.5 , Magnesium Level 2.2, Total Bilirubin 0.3, Aspartate Amino Transf (AST/SGOT) 30 , Alanine Aminotransferase (ALT/SGPT) 13, Alkaline Phosphatase 82, C-Reactive Protein, Quantitative 7.3H, Pro-B-Type Natriuretic Peptide 92356A, Total Protein 5.4L, Albumin 1.6L, Globulin 3.8, Albumin/Globulin Ratio 0.4L Height (Feet): 6 Height (Inches): 0.00 Weight (Pounds): 166 General Appearance: no apparent distress EENT: other - Intubated on ventilator Cardiovascular: tachycardia Respiratory/Chest: decreased breath sounds Abdomen: distended Objective No other change Ricardo Choudhary MD Dec 07, 2019 12:00
--- NOTE | 2019-12-07 12:05 | General Progress Note ---
Progress Note Progress Note Bioethics Committee Asked to consult on this 74 year old who has severe disability S/P CVA and now has COVID-19 pneumonia requiring intubation and tracheostomy. The prognosis is grim. It would be appropriate to make the patient DNR and he is a candidate for terminal extubation. In view of the dire prognosis tracheostomy and ongoing controlled ventilation would not be appropriate and would constitute futile care. He is unlikely to survive with a quality of life that would be acceptable to most. Edgar Weathers M.D. for the Bioethics Committee Edgar Weathers MD Dec 07, 2019 12:05
--- NOTE | 2019-12-07 12:08 | Pulmonolgy Critical Care Note ---
Critical Care - Asmt/Plan Problems: (1) Acute respiratory failure (2) Hypoxemic encephalopathy (3) Cardiac arrest (4) Bacteremia Assessment & Plan: enterocococus fecalis in blood. Proteus and Pseudomonas in sputum. (5) 2019 novel coronavirus disease (COVID-19) (6) ARF (acute renal failure) (7) Aspiration pneumonia (8) Ventricular tachyarrhythmia (9) DM (diabetes mellitus) Respiratory: monitor respiratory rate, adjust FIO2, CXR Cardiac: continue to monitor HR/BP Renal: F/U I&O, check electrolytes Infectious Disease: check cultures, continue antibiotics Gastrointestinal: continue feedings/current rate Endocrine: monitor blood sugar Hematologic: transfuse if hgb<8.5 Neurologic: PRN Morphine, keep patient comfortable Affect: PRN ativan Disposition: keep in ICU Notes Reviewed: resource analyst, cardio 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, consultants, major case detectiveassistant credit manager - Objective Last 24 Hour Vital Signs Date Time Temp Pulse Resp B/P (MAP) Pulse Ox O2 Delivery O2 Flow Rate FiO2 12/07/19 12:00 Mechanical Ventilator 12/07/19 10:00 123/63 12/07/19 10:00 87 19 127/59 (81) 98 12/07/19 09:00 92 18 123/63 (83) 98 12/07/19 08:25 100 12/07/19 08:00 99.2 90 18 124/62 (82) 98 12/07/19 08:00 30 12/07/19 08:00 Mechanical Ventilator 12/07/19 07:18 82 16 30 12/07/19 07:00 85 19 120/63 (82) 97 12/07/19 06:00 99.5 86 17 121/59 (79) 98 12/07/19 05:00 78 18 114/55 (74) 97 12/07/19 04:00 82 12/07/19 04:00 30 12/07/19 04:00 Mechanical Ventilator 12/07/19 04:00 99.0 77 18 114/54 (74) 99 12/07/19 03:26 82 12/07/19 03:25 80 19 30 12/07/19 03:00 75 11 111/46 (67) 97 12/07/19 02:00 84 14 106/52 (70) 98 12/07/19 01:00 83 18 120/57 (78) 96 6/24/20 00:00 30 12/07/19 00:00 97.3 81 17 118/57 (77) 98 12/07/19 00:00 Mechanical Ventilator 12/06/19 23:49 82 12/06/19 23:30 79 18 30 12/06/19 23:00 74 18 116/53 (74) 97 12/06/19 22:00 87 18 118/57 (77) 97 12/06/19 21:00 82 19 115/57 (76) 98 12/06/19 20:00 30 12/06/19 20:00 83 18 117/56 (76) 97 12/06/19 20:00 Mechanical Ventilator 12/06/19 19:30 79 17 30 12/06/19 19:28 81 12/06/19 19:00 79 20 111/60 (77) 97 12/06/19 18:00 79 20 96/50 (65) 98 12/06/19 17:00 78 20 108/56 (73) 98 12/06/19 16:00 30 12/06/19 16:00 Mechanical Ventilator 12/06/19 16:00 98.2 78 18 115/55 (75) 98 12/06/19 15:41 76 17 30 12/06/19 15:28 76 12/06/19 15:00 72 17 117/60 (79) 100 12/06/19 14:00 76 18 104/58 (73) 100 12/06/19 13:00 98.1 74 17 108/58 (75) 100 Status: obtunded Condition: critical, grave Lungs: rales, rhonchi Heart: HR/BP stable Abdomen: non-tender Extremities: no C/C/E Critical Care - Subjective ROS Limited/Unobtainable: Yes Condition: critical, grave FI02: 30 Vent Support Breath Rate: 16 Vent Support Mode: AC Vent Tidal Volume: 550 Sputum Amount: Small PEEP: 5.0 PIP: 29 Tube Feeding Amount: 40 I&O: Intake and Output 12/06/19 12/07/19 19:00 07:00 Intake Total 1330 ml 1340 ml Output Total 225 ml 470 ml Balance 1105 ml 870 ml Free Water 50 ml 80 ml IV Total 700 ml 750 ml Tube Feeding 480 ml 480 ml Other 100 ml 30 ml Output Urine Total 175 ml 170 ml Stool Total 50 ml 300 ml ET-Tube: 8.0 ET Position: 23 Labs: Laboratory Tests Test 12/07/19 04:00 White Blood Count 10.3 K/UL (4.8-10.8) Red Blood Count 2.34 M/UL (4.70-6.10) L Hemoglobin 6.7 G/DL (14.2-18.0) *L Hematocrit 21.3 % (42.0-52.0) L Mean Corpuscular Volume 91 FL (80-99) Mean Corpuscular Hemoglobin 28.5 PG (27.0-31.0) Mean Corpuscular Hemoglobin Concent 31.2 G/DL (32.0-36.0) L Red Cell Distribution Width 16.1 % (11.6-14.8) H Platelet Count 189 K/UL (150-450) Mean Platelet Volume 6.4 FL (6.5-10.1) L Neutrophils (%) (Auto) % (45.0-75.0) Lymphocytes (%) (Auto) % (20.0-45.0) Monocytes (%) (Auto) % (1.0-10.0) Eosinophils (%) (Auto) % (0.0-3.0) Basophils (%) (Auto) % (0.0-2.0) Differential Total Cells Counted 100 Neutrophils % (Manual) 82 % (45-75) H Lymphocytes % (Manual) 8 % (20-45) L Monocytes % (Manual) 5 % (1-10) Eosinophils % (Manual) 3 % (0-3) Basophils % (Manual) 2 % (0-2) Band Neutrophils 0 % (0-8) Platelet Estimate Adequate Platelet Morphology Normal Hypochromasia 4+ Anisocytosis 1+ Sodium Level 151 MMOL/L (136-145) H Potassium Level 3.2 MMOL/L (3.5-5.1) L Chloride Level 119 MMOL/L (98-107) H Carbon Dioxide Level 20 MMOL/L (21-32) L Anion Gap 12 mmol/L (5-15) Blood Urea Nitrogen 79 mg/dL (7-18) H Creatinine 3.0 MG/DL (0.55-1.30) H Estimat Glomerular Filtration Rate 20.7 mL/min (>60) Glucose Level 85 MG/DL (74-106) Calcium Level 7.7 MG/DL (8.5-10.1) L Phosphorus Level 4.5 MG/DL (2.5-4.9) Magnesium Level 2.2 MG/DL (1.8-2.4) Total Bilirubin 0.3 MG/DL (0.2-1.0) Aspartate Amino Transf (AST/SGOT) 30 U/L (15-37) Alanine Aminotransferase (ALT/SGPT) 13 U/L (12-78) Alkaline Phosphatase 82 U/L (46-116) C-Reactive Protein, Quantitative 7.3 mg/dL (0.00-0.90) H Pro-B-Type Natriuretic Peptide 13644 pg/mL (0-125) H Total Protein 5.4 G/DL (6.4-8.2) L Albumin 1.6 G/DL (3.4-5.0) L Globulin 3.8 g/dL Albumin/Globulin Ratio 0.4 (1.0-2.7) L Ayana Ndiaye MD Dec 07, 2019 12:08
[2019-12-07] MEDS ORDERED: Haloperidol 5mg/ml Inj IM PRN (12:44)
[2019-12-07] MEDS ORDERED: Prochlorperazine 10mg tab ORAL PRN (12:44)
[2019-12-07] MEDS ORDERED: Morphine Sulfate 10mg/ml Inj IVP SCH (12:44)
[2019-12-07] MEDS ORDERED: Glycopyrrolate 0.2mg/ml 1ml Vial IV PRN (12:44)
[2019-12-07] MEDS ORDERED: Rate Change Narcotic Drip MISC PRN (12:45)
[2019-12-07] MEDS ORDERED: PCA Morphine 1mg/ml 30 ML IV PRN (12:45)
--- NOTE | 2019-12-07 15:12 | Surgery Progress Note ---
Surgery Progress Note Subjective Additional Comments Discussed with pulmonology PCP medical teams. Bioethics recommendation for terminal extubation withdrawal of care given medical condition course of care and meaningful recovery. Patient extubated and passed soon after. Thank you for let me participate patient's care Objective Last 24 Hour Vital Signs Date Time Temp Pulse Resp B/P (MAP) Pulse Ox O2 Delivery O2 Flow Rate FiO2 12/07/19 13:12 Room Air 12/07/19 12:00 30 12/07/19 12:00 Mechanical Ventilator 12/07/19 11:18 95 20 30 12/07/19 10:00 123/63 12/07/19 10:00 87 19 127/59 (81) 98 12/07/19 09:00 92 18 123/63 (83) 98 12/07/19 08:25 100 12/07/19 08:00 99.2 90 18 124/62 (82) 98 12/07/19 08:00 30 12/07/19 08:00 Mechanical Ventilator 12/07/19 07:18 82 16 30 12/07/19 07:00 85 19 120/63 (82) 97 12/07/19 06:00 99.5 86 17 121/59 (79) 98 12/07/19 05:00 78 18 114/55 (74) 97 12/07/19 04:00 82 12/07/19 04:00 30 12/07/19 04:00 Mechanical Ventilator 12/07/19 04:00 99.0 77 18 114/54 (74) 99 12/07/19 03:26 82 12/07/19 03:25 80 19 30 12/07/19 03:00 75 11 111/46 (67) 97 12/07/19 02:00 84 14 106/52 (70) 98 12/07/19 01:00 83 18 120/57 (78) 96 12/07/19 00:00 30 12/07/19 00:00 97.3 81 17 118/57 (77) 98 12/07/19 00:00 Mechanical Ventilator 12/06/19 23:49 82 12/06/19 23:30 79 18 30 12/06/19 23:00 74 18 116/53 (74) 97 12/06/19 22:00 87 18 118/57 (77) 97 12/06/19 21:00 82 19 115/57 (76) 98 12/06/19 20:00 30 12/06/19 20:00 83 18 117/56 (76) 97 12/06/19 20:00 Mechanical Ventilator 12/06/19 19:30 79 17 30 12/06/19 19:28 81 12/06/19 19:00 79 20 111/60 (77) 97 12/06/19 18:00 79 20 96/50 (65) 98 12/06/19 17:00 78 20 108/56 (73) 98 12/06/19 16:00 30 12/06/19 16:00 Mechanical Ventilator 12/06/19 16:00 98.2 78 18 115/55 (75) 98 12/06/19 15:41 76 17 30 12/06/19 15:28 76 I&O Intake and Output 12/06/19 12/07/19 19:00 07:00 Intake Total 1330 ml 1340 ml Output Total 225 ml 470 ml Balance 1105 ml 870 ml Free Water 50 ml 80 ml IV Total 700 ml 750 ml Tube Feeding 480 ml 480 ml Other 100 ml 30 ml Output Urine Total 175 ml 170 ml Stool Total 50 ml 300 ml Dressing: other Wound: other Drains: other Cardiovascular: other Respiratory: other Abdomen: other Extremities: other Laboratory Tests Test 12/07/19 04:00 White Blood Count 10.3 K/UL (4.8-10.8) Red Blood Count 2.34 M/UL (4.70-6.10) L Hemoglobin 6.7 G/DL (14.2-18.0) *L Hematocrit 21.3 % (42.0-52.0) L Mean Corpuscular Volume 91 FL (80-99) Mean Corpuscular Hemoglobin 28.5 PG (27.0-31.0) Mean Corpuscular Hemoglobin Concent 31.2 G/DL (32.0-36.0) L Red Cell Distribution Width 16.1 % (11.6-14.8) H Platelet Count 189 K/UL (150-450) Mean Platelet Volume 6.4 FL (6.5-10.1) L Neutrophils (%) (Auto) % (45.0-75.0) Lymphocytes (%) (Auto) % (20.0-45.0) Monocytes (%) (Auto) % (1.0-10.0) Eosinophils (%) (Auto) % (0.0-3.0) Basophils (%) (Auto) % (0.0-2.0) Differential Total Cells Counted 100 Neutrophils % (Manual) 82 % (45-75) H Lymphocytes % (Manual) 8 % (20-45) L Monocytes % (Manual) 5 % (1-10) Eosinophils % (Manual) 3 % (0-3) Basophils % (Manual) 2 % (0-2) Band Neutrophils 0 % (0-8) Platelet Estimate Adequate Platelet Morphology Normal Hypochromasia 4+ Anisocytosis 1+ Sodium Level 151 MMOL/L (136-145) H Potassium Level 3.2 MMOL/L (3.5-5.1) L Chloride Level 119 MMOL/L (98-107) H Carbon Dioxide Level 20 MMOL/L (21-32) L Anion Gap 12 mmol/L (5-15) Blood Urea Nitrogen 79 mg/dL (7-18) H Creatinine 3.0 MG/DL (0.55-1.30) H Estimat Glomerular Filtration Rate 20.7 mL/min (>60) Glucose Level 85 MG/DL (74-106) Calcium Level 7.7 MG/DL (8.5-10.1) L Phosphorus Level 4.5 MG/DL (2.5-4.9) Magnesium Level 2.2 MG/DL (1.8-2.4) Total Bilirubin 0.3 MG/DL (0.2-1.0) Aspartate Amino Transf (AST/SGOT) 30 U/L (15-37) Alanine Aminotransferase (ALT/SGPT) 13 U/L (12-78) Alkaline Phosphatase 82 U/L (46-116) C-Reactive Protein, Quantitative 7.3 mg/dL (0.00-0.90) H Pro-B-Type Natriuretic Peptide 03749 pg/mL (0-125) H Total Protein 5.4 G/DL (6.4-8.2) L Albumin 1.6 G/DL (3.4-5.0) L Globulin 3.8 g/dL Albumin/Globulin Ratio 0.4 (1.0-2.7) L Plan Problems: (1) Decubitus skin ulcer Assessment & Plan: Pt presented on admission with large sacral wound. Base of wound with areas that area purple and indurated sacrococcygeal,L sacrum/L gluteus,Scattered wounds with maceration L gluteus, one wound R sacrum with Biofilm, Surrounding non-blanching erythema entire buttocks. Small dry scabbed area noted to lumbar area. Unstageable Pressure Injury L heel. Base of wound is necrotic with surrounding non-blanching erythema. Tx.plan: Apply Moisture Barrier Paste to Buttocks. Cover Sacrum, R and L gluteal cheeks with Optifoam drsgs. Change every 3 days and prn. Apply Betadine to L heel. Cover with Optifoam drsg. Change every 3 days and prn. Reposition at least every 2hours or as tolerated. Place Pillow between knees. Off-load heels with Pillow. APM/BRUNILDA Mattress overlay. DAILY ESTIMATED NEEDS: Needs based on wt loss, underweight, wound/ 59kg 30-35 kcals/kg 6735-4077 total kcals 1.25-2 g protein/kg 74-118 g total protein 25-30 mL/kg 9191-1363 total fluid mLs NUTRITION DIAGNOSIS: * Increased kcal/prot intake needs R/T wound healing, suspected recent significant wt loss as evidenced by admitted w/ wounds @ lt posterior heel, R lower back, sacrum as per photos, pending eval, suspected significant wt loss of 40lbs/ 23.7% in <5 months, currently @ 81% IBW. . * Swallowing difficulty R/T dysphagia, h/o CVA as evidenced by PEG dependent. CURRENT TF:Glucerna 1.2 @65ml/hr x24 hrs ENTERAL NUTRITION RECOMMENDATIONS: NEPRO @45ml/hr x24 hrs to provide 1080ml, 1944 kcal, 87g pro, 785ml free H2O - Rec TF change for lower K content (1145mg in Nepro @45 vs 3151mg in Glucerna 1.2 @65) - Start at 25ml/hr advance as tolerated 10ml/hr q4-6 hrs - HOB over 30 degrees - Increased H20 flush to 200ml q4 hrs ADDITIONAL RECOMMENDATIONS: 1) Calibrated bedscale wt -> per SNF: HT=59" and EQ=564miy (10/20/19) 2) Wound healing: Add Vit C 500mg QD/ or dosing per nephro Add Osbaldo BID via PEG w/ TF order 3) Monitor lytes: monitor K trend, need for renal TF (K 5.3, 5.5) 4) NISS w/ TF (h/o DM) 5) Monitor for diarrhea, rec probiotics (2) Sepsis Assessment & Plan: 74-year-old male multi-medical comorbidities admitted for respiratory deficiency currently tachypneic, leukocytosis, malnutrition, hypoalbuminemia. Complete physical exam performed identified areas of concerned given patient's comorbidities current condition high risk for deteriorationNo active infection identified from patient's wounds and likely respiratory nature. Chest x-ray reviewed. No acute surgical intervention planned at this time Preventive measures IV antibiotics per infectious disease Okay for feeding once stable respiratory Appreciate Pulm input c diff positive on vanco blood cx noted worsening leukocytosis ID abx noted heme input noted There are increasing basilar opacities on the left noted. The heart size is normal. The pleural spaces are clear. Impression: New/increased infiltrates at the left lateral lung base We will follow with recommendations thank you for let me participate patient's care worsening in ICU now on pressors intubated febrile prognosis guarded ill appearing still weaning slowly 1. Interval new loss of barrientos-white differentiation and sulcal effacement involving the right parietal lobe diffusely as well as mild right parietal lobe hypoattenuation during for stroke. No significant mass effect or hemorrhage. 2. Continued evolution of large left ICA territory infarct seen on prior study. Similar-appearing right anterior temporal lobe encephalomalacia. 3. Otherwise no acute intracranial abnormality seen. 4. Bilateral large mastoid air cell effusions. 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
[2019-12-07] MEDS ORDERED: D5NS 1000ml IV ONE (16:01)
[2019-12-07] MEDS ORDERED: Sterile Water Irrig 1000ml IRRIG ONE (16:01)
[2019-12-07] MEDS ORDERED: NS 275ml ONE (16:01)
[2019-12-07] MEDS ORDERED: Narcotic Shift Volume MISC SCH (19:00)
--- NOTE | 2019-12-08 14:57 | Discharge Summary ---
Discharge Summary Discharge Summary _ SUMMARY DATE OF ADMISSION: 11/11/2019 DATE OF EXPIRATION: 12/07/2019 REASON FOR ADMISSION: 74 years old male with multiple comorbidities including diabetes mellitus, hypertension, dysphagia, feeding by G-tube, CVA, depression, [facility] , was sent for evaluation due to respiratory distress and hypoxia. Symptoms were ongoing for few days, but became progressively worse. Per paramedics, patient was hypoxic , saturating 77% on room air. After placement of supplemental oxygen, patient was brought to ED for evaluation. There was also reported cough and congestion along with a low-grade fever. Upon evaluation patient was tachycardic , tachypneic , hypoxic, 100% nonrebreathing mask was placed. EKG revealed sinus tachycardia , no acute ischemic changes. Chest x-ray revealed bilateral interstitial infiltrates. Patient was swabbed for COVID-19. Laboratory work-up revealed significant leukocytosis WBC 20.4, hemoglobin 9.3, hematocrit 27.8, platelet count 392. Chemistry demonstrated potassium 5.8, BUN 69, creatinine 1.8. Glucose 186. Lactic acid 1.8. Troponin was negative. Pro BNP 664. Albumin 1.6. Ferritin 1339 , d-dimer 2.89, CRP 40.5. In emergency department patient pancultured, started on IV hydration, and received empiric antibiotic. Patient also received Lovenox and subsequently admitted for further management. CONSULTANTS: home health clinical supervisor Dr. Melgar neurologist Dr. Momin pulmonary Dr. Ndiaye ID specialist Dr. Mark GI specialist Dr. Fan telecommunications administrator Dr. Choudhary roundsman/oncologist Dr. Flowers surgery Dr. Payne psychiatrist [facility]: Patient admitted and started on empiric antibiotic. Supplemental oxygen provided and titrated to keep pulse oximetry above 90% . Pulmonary toilet provided. Leukocytosis worsened. Urine culture revealed Enterococcus faecalis . Blood culture revealed Enterococcus faecalis and Staph warneri . Bacteremia was likely due to UTI. Staph coagulase negative was likely contaminant. SARS COV2 by PCR on 11/10 was detected. Stool for C. difficile was positive. Sputum culture revealed Pseudomonas, MRSA and Proteus. Antibiotic regimen provided as per ID specialist recommendation. Patient initially was on 100% nonrebreathing mask . Respiratory status worsened. CODE BLUE was called on 11/17 due to PEA arrest. ACLS protocol initiated. Patient was urgently intubated . ABG revealed severe acute respiratory acidosis with pH 7.00 and PCO2 73.7 . During intubation noted significant gastric content in d the patient pharynx. Patient demonstrated narrow complex tachycardia between 160-190, patient had strong pulses but was hypotensive. Presumed SVT , patient underwent synchronized cardioversion twice with 200 J with successful stabilization of rhythm and rate. Patient subsequently transferred to ICU. Central line was placed for pressors. Ventilator support and pulmonary toilet provided. Isolation continued. Patient initially was on double pressors Levophed and Phenylephrine. Hemodynamic status was closely monitored with goal to keep mean arterial blood pressure above 65. Patient gradually was weaned from 1 pressor and then from the other. Blood pressure afterwards was clsoely monitored, and patient received boluses of fluids and albumin boluses as needed. Renal parameters and electrolytes were closely monitored , electrolytes further corrected as needed. Renal function worsened with creatinine reaching 3.7. Patient subsequently undergone insertion of non-tunneled hemodialysis catheter and started on hemodialysis as per telecommunications administrator recommendation. Renal failure was most likely prerenal azotemia secondary to dehydration. Electrolytes corrected as needed. Dialysis further provided as per telecommunications administrator recommendation . Patient started on Epogen . Renal parameters gradually improved, and no further dialysis was required. Patient was follow-up with chest x-ray. Unable to wean from ventilator. Chest x-ray continued to show bilateral infiltrates. Patient remained intubated Neurologist seen the patient . Patient had a prior stroke of the left middle cerebral artery. EEG was ordered since pupils were sluggish and poorly reactive, which revealed encephalopathy of severe degree. Leukocytosis was eventually trending down. Blood culture on 11/23 were negative. Urine culture on 11/23 revealed Nilsa. Sputum culture on revealed growth of Pseudomonas and Nilsa. COVID-19 on came back positive again. Isolation continued. Patient received Remdesivir for 5 days along with antibiotics targeted based on culture and sensitivity . C difficile infection did not respond to vancomycin. Patient had severe C. difficile colitis , and subsequently was treated with Dificid dye to failure of Vancomycin. Patient presented on admission with a large sacral wound. Wound care provided as per surgeon recommendation. Bioethics consult recommendation was requested in regards to further management of this patient. Given severe disability , multiple comorbidities, COVID-19 pneumonia requiring intubation , failure to wean, and overall grim prognosis , bioethics committee deemed appropriate to make this patient DNR/DNI status. Patient was a candidate for terminal extubation. In view of the dire prognosis , tracheostomy and ongoing control ventilation would not be appropriate and would constitute futile care. Patient subsequently was terminally extubated at 12:55 on 12/06. Patient condition was rapidly deteriorated, and he was pronounced at 13:40 on 12/06. Cause of : cardiopulmonary arrest. FINAL DIAGNOSES: Sepsis with Enterococcus faecalis bacteremia Septic shock Enterococcus faecalis UTI Confirmed COVID-19 infection Pneumonia due to COVID-19 infection Aspiration pneumonia Severe C. difficile colitis Acute hypoxic hypercapnic respiratory failure , requiring intubation Failure to wean Acute renal failure, requiring start of hemodialysis - improved ( likely due to prerenal azotemia/dehydration) Severe metabolic encephalopathy likely due to sepsis and acute renal failure Status post 11/17 cardiac arrest /PEA arrest with unstable SVT, status post cardioversion History of left MCA CVA secondary to occlusion left ICA Diabetes mellitus Anemia of chronic disease History of hypertension Major depressive disorder Deep tissue injury present on admission Malnutrition I have been assigned to dictate discharge summary for this account. I was not involved in the patient's management. Shari Alvarez NP Dec 08, 2019 14:57
== END 2019-12-07 16:02 | disposition expired | DRG 720 ==
LOC: EDBD 02:06 → EMR 02:32 → 2E 03:27 → EDBEDREQ 04:11 → 2E 11-13 06:19 → ICU 11-18 02:28
PROC: 5A1955Z Respiratory Ventilation, Greater than 96 Consecutive Hours (ICD-10-PCS; principal; 2019-11-18)
PROC: 0BH17EZ Insertion of Endotracheal Airway into Trachea, Via Natural or Artificial Opening (ICD-10-PCS; 2019-11-18)
PROC: 5A12012 Performance of Cardiac Output, Single, Manual (ICD-10-PCS; 2019-11-18)
PROC: 05HM33Z Insertion of Infusion Device into Right Internal Jugular Vein, Percutaneous Approach (ICD-10-PCS; 2019-11-21)
PROC: 5A1D70Z Performance of Urinary Filtration, Intermittent, Less than 6 Hours Per Day (ICD-10-PCS; 2019-11-23)
DX: A41.89 Other specified sepsis (principal); U07.1 COVID-19; J69.0 Pneumonitis due to inhalation of food and vomit; J12.89 Other viral pneumonia; N17.9 Acute kidney failure, unspecified; G93.40 Encephalopathy, unspecified; N39.0 Urinary tract infection, site not specified; E86.0 Dehydration; D63.8 Anemia in other chronic diseases classified elsewhere; L89.159 Pressure ulcer of sacral region, unspecified stage; L89.626 Pressure-induced deep tissue damage of left heel; R65.20 Severe sepsis without septic shock; J96.01 Acute respiratory failure with hypoxia; E46 Unspecified protein-calorie malnutrition; E87.5 Hyperkalemia; E43 Unspecified severe protein-calorie malnutrition; R13.10 Dysphagia, unspecified; L89.156 Pressure-induced deep tissue damage of sacral region; I69.320 Aphasia following cerebral infarction; I69.351 Hemiplegia and hemiparesis following cerebral infarction affecting right dominant side; F32.9 Major depressive disorder, single episode, unspecified; D47.3 Essential (hemorrhagic) thrombocythemia; B95.2 Enterococcus as the cause of diseases classified elsewhere; I47.1 Supraventricular tachycardia; I46.2 Cardiac arrest due to underlying cardiac condition; R65.21 Severe sepsis with septic shock; E11.9 Type 2 diabetes mellitus without complications; I10 Essential (primary) hypertension; Z22.322 Carrier or suspected carrier of Methicillin resistant Staphylococcus aureus; G93.1 Anoxic brain damage, not elsewhere classified; J96.02 Acute respiratory failure with hypercapnia; A04.72 Enterocolitis due to Clostridium difficile, not specified as recurrent
CPT/HCPCS: 36415; 36569; 36600; 70450; 71045; 76937; 80048; 80053; 80061; 80076; 80202; 81001; 81003; 82150; 82248; 82378; 82533; 82550; 82553; 82607; 82728; 82746; 82803; 82962; 82977; 83036; 83540; 83550; 83605; 83615; 83690; 83735; 83880; 84100; 84133; 84300; 84443; 84484; 84550; 85007; 85025; 85044; 85060; 85379; 85610; 85651; 85730; 86140; 86706; 86850; 86900; 86901; 86920; 87040; 87070; 87081; 87086; 87181; 87205; 87324; 87635; 89050; 92950; 93005; 94002; 94003; 94664; 96361; 96365; 96367; 99291; J0171; J2370; J2765; J7030